=== PATIENT | male | born 1955 | race Caucasian/White ===

== ENCOUNTER → 2017-10-28 | Outpatient (CLI) | payer OTHER, SELFPAY | PROVIDERS: Visit Provider Internal Medicine | DX: R91.8 Other nonspecific abnormal finding of lung field (principal) | CPT/HCPCS: 36415; 82565; 84520 ==

== ENCOUNTER → 2017-10-29 | Outpatient (CLI) | payer OTHER, SELFPAY | PROVIDERS: Visit Provider Internal Medicine | DX: R91.8 Other nonspecific abnormal finding of lung field (principal) | CPT/HCPCS: 71260; Q9967 ==

== ENCOUNTER → 2018-05-04 09:48 | Outpatient (POV) | payer OTHER, SELFPAY | PROVIDERS: Visit Provider Internal Medicine | DX: Z00.00 Encounter for general adult medical examination without abnormal findings (principal) ==

== ENCOUNTER → 2018-06-03 09:35 | Outpatient (CLI) | payer OTHER, SELFPAY ==
[2018-06-03 10:19] LABS: Blood Urea Nitrogen 11 mg/dL (7-18); Creatinine,Serum 0.69 mg/dL (0.70-1.30); Estimated Glomerular Filt Rate 117 ml/min (>60); GFR (African American) 141 ML/MIN (>60)
== END ==
PROVIDERS: Visit Provider Family Medicine
DX: I77.9 Disorder of arteries and arterioles, unspecified (principal)
CPT/HCPCS: 36415; 82565; 84520

== ENCOUNTER → 2018-06-04 09:33 | Outpatient (CLI) | payer OTHER, SELFPAY ==
--- NOTE | 2018-06-04 09:53 | CT_ITS ---
CT angio abdomen/femoral INDICATION: Bilateral leg pain, peripheral arterial occlusive disease ITS.REASON: PERIPHERAL ARTERIAL OCCLUSIVE DISEASE ORDERING PHYSICIAN: Main Kyle MD PATIENT AGE: 63 years COMPARISON: None TECHNIQUE: Axial images are obtained with 120 mL's of Isovue 370 contrast. Sagittal and coronal reformatted images are reviewed as well. Three-D reformatted images also generated and reviewed All CT scans at the facility use one or more dose reduction, viz: automated exposure control, ma/kV adjustment per patient size (including targeted exams where dose is matched to indication, i.e. head), or iterative reconstruction technique. FINDINGS: Abdominal aorta: Scattered atheromatous changes. No evidence of aortic aneurysm or dissection. There is mild stenosis of the proximal aspect of the celiac artery of approximately 25%. There is a single renal artery to each kidney. Atheromatous changes involving the distal abdominal aorta with some mild ulceration along left lateral aspect. Atheromatous changes involve the iliac arteries with mild narrowing of the proximal right external iliac artery of less than 20%. Right lower extremity: There are atheromatous changes of the proximal and mid SFA. The distal SFA and popliteal are unremarkable. No hemodynamic significant stenotic lesions evident of the SFA. Three-vessel runoff is noted to the ankle on the right Left lower extremity: Mild atheromatous changes are present at the common femoral and proximal SFA. There is approximately 40-50% stenosis of the mid left SFA with mild atheromatous changes in the mid to distal SFA with smooth area of approximately 30% stenosis. The popliteal artery has an unremarkable appearance. Three-vessel runoff is present to the left calf. Non angiographic findings: Hyperinflation involves lung bases consistent with COPD. There is a calcified granuloma in the left lower lobe. There is a subtle 4 mm isodensity in the right hepatic lobe inferiorly nonspecific. Spleen, adrenal glands, pancreas, and kidneys show no acute finding. There is a 1 cm isodense is on the upper pole the right kidney which could be due to small cyst. No intestinal obstruction or free air. No abdominal or pelvic mass or focal inflammatory change. No acute bony anomalies. IMPRESSION: There are scattered atheromatous changes in the abdominal aorta and bilateral lower extremities as detailed above. No hemodynamic significant stenotic lesions however are evident. There is proximal 40-50% left mid SFA stenosis. Please see above for detail.
== END ==
PROVIDERS: PCP Family Medicine; Visit Provider Family Medicine
DX: I77.9 Disorder of arteries and arterioles, unspecified (principal)
CPT/HCPCS: 75635; Q9967

== ENCOUNTER → 2018-10-19 09:41 | Outpatient (POV) | payer OTHER, SELFPAY | PROVIDERS: Visit Provider Internal Medicine | DX: Z00.00 Encounter for general adult medical examination without abnormal findings (principal) ==

== ENCOUNTER → 2018-10-27 10:42 | Outpatient (CLI) | payer OTHER, SELFPAY | PROVIDERS: PCP Family Medicine; Visit Provider Internal Medicine | DX: G47.34 Idiopathic sleep related nonobstructive alveolar hypoventilation (principal) | CPT/HCPCS: 94762 ==

== ENCOUNTER → 2018-11-11 09:38 | Outpatient (CLI) | payer OTHER, SELFPAY ==
[2018-11-11 10:45] VITALS: PULSE 103
== END ==
PROVIDERS: PCP Family Medicine; Visit Provider Internal Medicine
DX: J44.1 Chronic obstructive pulmonary disease with (acute) exacerbation (principal)
CPT/HCPCS: 94060; 94618; 94640; 94726; 94729

== ENCOUNTER → 2018-12-08 12:33 | Outpatient (CLI) | payer OTHER, SELFPAY ==
--- NOTE | 2018-12-08 12:35 | CT_ITS ---
CT lung screening EXAM: CT LUNG LOW DOSE WO CONTRAST HISTORY: 45 pack year smoking history asymptomatic for lung cancer ITS.REASON: TOBACCO USE ORDERING PHYSICIAN: Nicolas Alexandre MD PATIENT AGE: 63 years COMPARISON: 10/29/2017 TECHNIQUE: The exam was performed on a GE Light Speed [address] scanner using 2.90 mGy CTDI. A low dose helical CT CHEST was performed on a multi-detector scanner. All CT scans at the facility use one or more dose reduction, viz: automated exposure control, ma/kV adjustment per patient size (including targeted exams where dose is matched to indication, i.e. head), or iterative reconstruction technique. The LDCT was performed in a facility that meets the criteria for the screening program. Data regarding this exam was submitted to ACR which is an approved registry. The order for this exam indicates that it came as a result of a lung cancer screening counseling shard decision-making visit that included all the elements required of such a visit including smoking cessation. The radiologist interpreting this exam meets the CMS criteria for the LDCT lung cancer screening program. The exam is reported using the Lung-RADS classification scale and reported to the ACR registry. NOTE: This study was performed for the specific purposes of lung cancer screening and is not an alternative to diagnostic chest CT. RADIATION DOSE: CTDI vol(CT dose Index-volume) = 2.90mG DLP (Dose Length Product) = 118.42 mGcm FINDINGS: Centrilobular emphysema. Biapical scarring There is an 8 x 7 mm irregular noncalcified nodular density in the right upper lobe centrally best demonstrated on coronal image #34. This was not present on the previous exam. There is mild diffuse bronchial thickening along with hyperinflation. Calcified granuloma is present in the left lower lobe. IMPRESSION: 1. Lung RADS Category: 4 a, new 8 mm suspicious nodule in the right perihilar region 2. Other findings: Centrilobular emphysema with scarring and evidence of old granulomatous disease with COPD RECOMMENDATIONS: Recommend short-term dedicated chest CT follow-up in 3 months. PET/CT is an additional consideration.
== END ==
PROVIDERS: PCP Family Medicine; Visit Provider Internal Medicine
DX: Z12.2 Encounter for screening for malignant neoplasm of respiratory organs (principal); Z87.891 Personal history of nicotine dependence; Z71.6 Tobacco abuse counseling; J43.9 Emphysema, unspecified

== ENCOUNTER → 2019-01-11 10:03 | Outpatient (POV) | payer OTHER, SELFPAY | PROVIDERS: Visit Provider Internal Medicine | DX: Z00.00 Encounter for general adult medical examination without abnormal findings (principal) ==

== ENCOUNTER 2019-02-03 10:25 | Outpatient (RCR) | payer OTHER, SELFPAY | END 2019-04-07 15:50 | disposition home or self-care (01) | LOC: PT 10:25 | PROVIDERS: Visit Provider Nurse Practitioner Family | DX: J44.9 Chronic obstructive pulmonary disease, unspecified (principal) | CPT/HCPCS: 93798; G0424 ==

== ENCOUNTER → 2019-03-08 12:37 | Outpatient (CLI) | payer OTHER, SELFPAY ==
--- NOTE | 2019-03-08 12:40 | CT_ITS ---
CT chest wo con HISTORY: Follow-up pulmonary nodule ITS.REASON: PULMONARY NODULE ORDERING PHYSICIAN: Ghazal Francisco APRN PATIENT AGE: 63 years COMPARISON: 12/08/2018 Technique: Axial images obtained. Sagittal, and coronal reformatted images are also generated and reviewed. All CT scans at the facility use one or more dose reduction, viz: automated exposure control, ma/kV adjustment per patient size (including targeted exams where dose is matched to indication, i.e. head), or iterative reconstruction technique. FINDINGS: The noncalcified irregular nodule in the right suprahilar region does appear slightly larger. On the coronal images this nodule measures approximately 10 mm previously measuring 8 mm. Some of this could include associated unopacified vessel. PET/CT is suggested for further evaluation. Centrilobular emphysema with bronchial thickening and hyperinflation/COPD noted. No new nodules are evident. There is calcified granuloma in the left lower lobe and there are scattered areas of scarring. No acute bony findings. No mediastinal or hilar mass or adenopathy. IMPRESSION: Irregular right suprahilar nodule appears very slightly more prominent measuring approximately 10 mm. An early neoplasm is considered. PET/CT is suggested for further workup COPD/centrilobular emphysema
[2019-03-08 13:50] VITALS: BP 120/76; BP 150/85; PULSE 115; PULSE 136; RESP 18; RESP 24; O2SAT 88; O2SAT 90
== END ==
PROVIDERS: PCP Family Medicine; Visit Provider Nurse Practitioner Family
DX: R91.1 Solitary pulmonary nodule (principal); J44.9 Chronic obstructive pulmonary disease, unspecified
CPT/HCPCS: 71250; 94618

== ENCOUNTER → 2019-03-29 12:40 | Outpatient (POV) | payer OTHER, SELFPAY | PROVIDERS: Visit Provider Dermatology | DX: Z00.00 Encounter for general adult medical examination without abnormal findings (principal) ==

== ENCOUNTER → 2019-05-07 11:05 | Outpatient (CLI) | payer OTHER, SELFPAY ==
[2019-05-07 13:34] LABS: Anion Gap 15.2 mEq/L (5-15); Blood Urea Nitrogen 10 mg/dL (7-18); Calcium 8.9 mg/dL (8.5-10.1); Carbon Dioxide 26 mmol/L (21.0-32.0); Chloride 102 mmol/L (98-107); Creatinine,Serum 0.74 mg/dL (0.70-1.30); Estimated Glomerular Filt Rate 108 ml/min (>60); GFR (African American) 130 ML/MIN (>60); Glucose 107 mg/dL (74-106); Potassium 4.2 mmoL/L (3.5-5.1); Sodium 139 mmol/L (136-145)
== END ==
PROVIDERS: Visit Provider Nurse Practitioner Family
DX: C34.91 Malignant neoplasm of unspecified part of right bronchus or lung (principal)
CPT/HCPCS: 36415; 80048

== ENCOUNTER → 2019-05-09 08:45 | Outpatient (CLI) | payer OTHER, SELFPAY ==
--- NOTE | 2019-05-09 08:48 | MR_ITS ---
MR head/brain wo/w con HISTORY: ITS.REASON: SMALL CELL CARCINOMA, LUNG CANCER, [place] for metastatic disease ORDERING PHYSICIAN: Ghazal Francisco APRN PATIENT AGE: 63 years Comparison: None TECHNIQUE: Standard multiplanar multiecho sequences are performed without and with gadolinium enhancement. FINDINGS: No midline shift, mass effect, or hydrocephalus is evident. No evidence of acute infarction. There is generalized atrophy with scattered periventricular T2 white matter hyperintensities consistent with ischemic gliotic change from microvascular disease. The cerebellopontine angles, cerebellum, and brainstem are unremarkable. There is an area of T1 hyperintensity in the central aspect of left occipital lobe measuring approximately 4 mm. There is some minimal linear enhancement associated with this lesion on the post enhanced images as well as some minimal gyriform enhancement in this area. This is felt to represent a developmental venous anomaly. The only other area of enhancement involves the left frontoparietal junction at the superior cortex on axial image #21 post enhanced. This is of questioned clinical significance. No edema is evident at this region. This is not convincing for metastatic disease however follow-up is suggested. The pituitary, optic chiasm, corpus callosum, and craniocervical junction have an unremarkable appearance. There is moderate mucosal thickening of left maxillary sinus. No mastoid effusion. IMPRESSION: 1. Overall, the study is not convincing for metastatic disease 2. 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 3. Tiny area of possible enhancement in the left frontoparietal junction. Follow-up suggested to confirm stability.
== END ==
PROVIDERS: PCP Family Medicine; Visit Provider Nurse Practitioner Family
DX: C34.91 Malignant neoplasm of unspecified part of right bronchus or lung (principal)
CPT/HCPCS: 70553; A9576

== ENCOUNTER → 2019-06-01 08:59 | Outpatient (CLI) | payer OTHER, SELFPAY | PROVIDERS: PCP Family Medicine; Visit Provider Internal Medicine | DX: J44.9 Chronic obstructive pulmonary disease, unspecified (principal) | CPT/HCPCS: 94618 ==

== ENCOUNTER 2019-06-13 08:38 | Outpatient (CLI) | payer OTHER, SELFPAY ==
[2019-06-13] VITALS (15 sets, daily range): BP systolic 113–142; BP diastolic 67–84; PULSE 67–88; RESP 20; TEMP 36.9; O2SAT 95–96; BMI 22.9
[2019-06-13 09:05] LABS: Basophils % 0.4 % (0.1-2.0); Eosinophils # 0.1 K/mm3 (0.0-0.4); Eosinophils % 1.6 % (0.1-12.0); Hematocrit 44.1 % (42.0-52.0); Hemoglobin 14.1 g/dL (14.1-18.0); Lymphocytes # 1.8 K/mm3 (0.7-4.5); Lymphocytes % 27.3 % (10-50); Mean Corpuscular Hemoglobin 31.1 pg (27.0-31.2); Mean Corpuscular Volume 97.2 fl (80-94); Mean Platelet Volume 6.8 fl (7.4-10.4); Monocytes # 0.6 K/mm3 (0.1-1.0); Monocytes % 8.7 % (1.7-9.3); Neutrophils # 4.2 K/mm3 (1.8-7.8); Neutrophils % 61.9 % (37.0-80.0); Platelet Count 368 K/mm3 (142-424); Red Blood Count 4.54 M/mm3 (4.60-6.20); Red Cell Distribution Width 13.9 % (11.5-17.5); White Blood Count 6.7 K/mm3 (4.8-10.8)
[2019-06-13 09:13] LABS: Alanine Aminotransferase 21 U/L (12-78); Albumin Level 3.9 gm/dL (3.4-5.0); Albumin/Globulin Ratio 1.1 (1.1-1.8); Alkaline Phosphatase 102 U/L (46-116); Anion Gap 13.5 mEq/L (5-15); Aspartate Amino Transferase 11 U/L (15-37); Bilirubin,Total 0.3 mg/dL (0.2-1.0); Blood Urea Nitrogen 14 mg/dL (7-18); Calcium 9.3 mg/dL (8.5-10.1); Carbon Dioxide 28 mmol/L (21.0-32.0); Chloride 103 mmol/L (98-107); Creatinine Clearance Estimated 79 mL/min (50-200); Creatinine,Serum 0.72 mg/dL (0.70-1.30); Estimated Glomerular Filt Rate 111 ml/min (>60); GFR (African American) 134 ML/MIN (>60); Globulin 3.7 gm/dl (1.3-3.2); Glucose 81 mg/dL (74-106); Potassium 4.5 mmoL/L (3.5-5.1); Sodium 140 mmol/L (136-145); Total Protein,Serum 7.6 gm/dL (6.4-8.2)
--- NOTE | 2019-06-13 13:13 | PC.NURSE ---
report received from russ maurer rn at this time. resumed care of the pt at this time
== END 2019-06-13 16:36 | disposition home or self-care (01) ==
LOC: INF 08:38
PROVIDERS: Visit Provider Internal Medicine Medical Oncology
DX: C34.91 Malignant neoplasm of unspecified part of right bronchus or lung (principal); Z51.11 Encounter for antineoplastic chemotherapy
CPT/HCPCS: 80053; 85025; 96413; 96415; 96417; J9060; J9181; Q0166

== ENCOUNTER 2019-06-14 08:33 | Outpatient (CLI) | payer OTHER, SELFPAY ==
[2019-06-14 09:05] VITALS: BP 152/82; PULSE 82; RESP 20; TEMP 36.9; O2SAT 95
[2019-06-14 09:30] VITALS: BP 156/78; PULSE 68; RESP 20; TEMP 36.9; O2SAT 95
[2019-06-14 10:00] VITALS: BP 135/74; PULSE 68; RESP 20; TEMP 37.1; O2SAT 95
[2019-06-14 10:30] VITALS: BP 141/76; PULSE 68; RESP 20; TEMP 36.9; O2SAT 95
[2019-06-14 11:05] VITALS: BP 141/76; PULSE 81; RESP 20; TEMP 36.9; O2SAT 95
== END 2019-06-14 11:00 | disposition home or self-care (01) ==
LOC: INF 08:33
PROVIDERS: Visit Provider Internal Medicine Medical Oncology
DX: Z51.11 Encounter for antineoplastic chemotherapy (principal); C34.91 Malignant neoplasm of unspecified part of right bronchus or lung
CPT/HCPCS: 96413; 96415; J9181; Q0166

== ENCOUNTER 2019-06-15 08:25 | Outpatient (CLI) | payer OTHER, SELFPAY ==
[2019-06-15] VITALS (7 sets, daily range): BP systolic 133–157; BP diastolic 78–94; PULSE 78–84; RESP 18; TEMP 36.9; O2SAT 92–96
== END 2019-06-15 11:05 | disposition home or self-care (01) ==
LOC: INF 08:37
PROVIDERS: Visit Provider Internal Medicine Medical Oncology
DX: Z51.11 Encounter for antineoplastic chemotherapy (principal); C34.91 Malignant neoplasm of unspecified part of right bronchus or lung
CPT/HCPCS: 96413; 96415; J9181; Q0166

== ENCOUNTER → 2019-06-30 13:41 | Outpatient (CLI) | payer OTHER, SELFPAY ==
[2019-06-30 13:56] LABS: Basophils % 0.3 % (0.1-2.0); Eosinophils % 2.1 % (0.1-12.0); Hematocrit 35.5 % (42.0-52.0); Hemoglobin 11.5 g/dL (14.1-18.0); Lymphocytes # 1.1 K/mm3 (0.7-4.5); Lymphocytes % 53.3 % (10-50); Mean Corpuscular HGB Conc 32.5 g/dL (31.8-35.4); Mean Corpuscular Hemoglobin 31.6 pg (27.0-31.2); Mean Corpuscular Volume 97.3 fl (80-94); Mean Platelet Volume 6.6 fl (7.4-10.4); Monocytes # 0.5 K/mm3 (0.1-1.0); Monocytes % 26.6 % (1.7-9.3); Neutrophils # 0.4 K/mm3 (1.8-7.8); Neutrophils % 17.7 % (37.0-80.0); Platelet Count 341 K/mm3 (142-424); Red Blood Count 3.65 M/mm3 (4.60-6.20); Red Cell Distribution Width 13.3 % (11.5-17.5)
[2019-06-30 14:00] LABS: MANUAL DIFFERENTIAL MANUAL DIFFERENTIAL (MANUAL DIFF)
[2019-06-30 16:20] LABS: Alanine Aminotransferase 16 U/L (12-78); Albumin Level 3.6 gm/dL (3.4-5.0); Albumin/Globulin Ratio 1.1 (1.1-1.8); Alkaline Phosphatase 94 U/L (46-116); Anion Gap 15.6 mEq/L (5-15); Aspartate Amino Transferase 10 U/L (15-37); Bilirubin,Total 0.3 mg/dL (0.2-1.0); Blood Urea Nitrogen 13 mg/dL (7-18); Carbon Dioxide 27 mmol/L (21.0-32.0); Chloride 102 mmol/L (98-107); Creatinine,Serum 1.12 mg/dL (0.70-1.30); Estimated Glomerular Filt Rate 66 ml/min (>60); GFR (African American) 80 ML/MIN (>60); Globulin 3.2 gm/dl (1.3-3.2); Glucose 100 mg/dL (74-106); Potassium 4.6 mmoL/L (3.5-5.1); Sodium 140 mmol/L (136-145); Total Protein,Serum 6.8 gm/dL (6.4-8.2)
[2019-06-30 21:10] LABS: Anisocytosis 1+; Eosinophils % 4 % (0-3); Lymphocytes % 68 % (10-50); Monocytes % 8 % (2-9); Neutrophils % 20 % (42-76); Platelet Estimate Normal; Total Cells Counted 50
== END ==
PROVIDERS: Visit Provider Internal Medicine Medical Oncology
DX: C34.91 Malignant neoplasm of unspecified part of right bronchus or lung (principal)
CPT/HCPCS: 36415; 80053; 85007; 85025

== ENCOUNTER → 2019-07-14 09:11 | Outpatient (CLI) | payer OTHER, SELFPAY ==
[2019-07-14 09:56] LABS: Basophils % 0.3 % (0.1-2.0); Eosinophils % 0.1 % (0.1-12.0); Hematocrit 36.7 % (42.0-52.0); Hemoglobin 11.5 g/dL (14.1-18.0); Lymphocytes # 1.2 K/mm3 (0.7-4.5); Lymphocytes % 13.6 % (10-50); Mean Corpuscular HGB Conc 31.3 g/dL (31.8-35.4); Mean Corpuscular Hemoglobin 30.8 pg (27.0-31.2); Mean Corpuscular Volume 98.3 fl (80-94); Mean Platelet Volume 6.2 fl (7.4-10.4); Monocytes # 0.7 K/mm3 (0.1-1.0); Monocytes % 7.8 % (1.7-9.3); Neutrophils # 6.8 K/mm3 (1.8-7.8); Neutrophils % 78.2 % (37.0-80.0); Platelet Count 588 K/mm3 (142-424); Red Blood Count 3.74 M/mm3 (4.60-6.20); Red Cell Distribution Width 14.1 % (11.5-17.5); White Blood Count 8.8 K/mm3 (4.8-10.8)
[2019-07-14 11:47] LABS: Alanine Aminotransferase 19 U/L (12-78); Albumin Level 3.4 gm/dL (3.4-5.0); Alkaline Phosphatase 114 U/L (46-116); Anion Gap 10.6 mEq/L (5-15); Aspartate Amino Transferase 13 U/L (15-37); Bilirubin,Total 0.2 mg/dL (0.2-1.0); Blood Urea Nitrogen 10 mg/dL (7-18); Calcium 9.6 mg/dL (8.5-10.1); Carbon Dioxide 32 mmol/L (21.0-32.0); Chloride 106 mmol/L (98-107); Creatinine,Serum 0.82 mg/dL (0.70-1.30); Estimated Glomerular Filt Rate 95 ml/min (>60); GFR (African American) 115 ML/MIN (>60); Globulin 3.4 gm/dl (1.3-3.2); Glucose 111 mg/dL (74-106); Potassium 5.6 mmoL/L (3.5-5.1); Sodium 143 mmol/L (136-145); Total Protein,Serum 6.8 gm/dL (6.4-8.2)
== END ==
PROVIDERS: Visit Provider Internal Medicine Medical Oncology
DX: C34.91 Malignant neoplasm of unspecified part of right bronchus or lung (principal)
CPT/HCPCS: 36415; 80053; 85025

== ENCOUNTER 2019-07-18 08:19 | Outpatient (CLI) | payer OTHER, SELFPAY ==
[2019-07-18] VITALS (16 sets, daily range): BP systolic 105–129; BP diastolic 71–84; PULSE 81–95; RESP 18; TEMP 36.4; O2SAT 94–96
--- NOTE | 2019-07-18 08:52 | HMH.PHAINT ---
POTASSIUM LEVEL = 5.6 ON 07/14/19 [address] [facility] TO MAKE SURE DR. LAY IS AWARE OF POTASSIUM LEVEL AND IF SHE WANTS TO CONTINUE THE PRE AND POST MEDS OF POTASSIUM AND MAGNESIUM. DR. LAY STILL WANTS PATIENT TO HAVE PRE AND POST MEDS.
== END 2019-07-18 16:07 | disposition home or self-care (01) ==
LOC: INF 08:19
PROVIDERS: Visit Provider Internal Medicine Medical Oncology
DX: Z51.11 Encounter for antineoplastic chemotherapy (principal); C34.91 Malignant neoplasm of unspecified part of right bronchus or lung
CPT/HCPCS: 96413; 96415; 96417; J9060; J9181; Q0166

== ENCOUNTER 2019-07-19 08:22 | Outpatient (CLI) | payer OTHER, SELFPAY ==
[2019-07-19 09:02] VITALS: BP 133/80; PULSE 102; RESP 20; TEMP 36.8; O2SAT 97
[2019-07-19 09:32] VITALS: BP 129/79; PULSE 99; RESP 20; O2SAT 97
[2019-07-19 10:02] VITALS: BP 122/77; PULSE 98; RESP 20; O2SAT 96
[2019-07-19 10:32] VITALS: BP 120/79; PULSE 95; RESP 20; O2SAT 97
[2019-07-19 10:40] VITALS: BP 123/82; PULSE 94; RESP 20; O2SAT 96
== END 2019-07-19 10:40 | disposition home or self-care (01) ==
LOC: INF 08:22
PROVIDERS: Visit Provider Internal Medicine Medical Oncology
DX: Z51.11 Encounter for antineoplastic chemotherapy (principal); C34.91 Malignant neoplasm of unspecified part of right bronchus or lung
CPT/HCPCS: 96413; 96415; J9181; Q0166

== ENCOUNTER 2019-07-20 08:16 | Outpatient (CLI) | payer OTHER, SELFPAY ==
[2019-07-20 09:20] VITALS: BP 138/81; PULSE 96; RESP 20; O2SAT 98
[2019-07-20 09:50] VITALS: BP 125/72; PULSE 91; RESP 20
[2019-07-20 10:10] VITALS: BP 122/75; PULSE 88; RESP 20
[2019-07-20 10:30] VITALS: BP 151/76; PULSE 84; RESP 20
[2019-07-20 10:56] VITALS: BP 137/81; PULSE 93; RESP 20
== END 2019-07-20 10:56 | disposition home or self-care (01) ==
LOC: INF 08:16
PROVIDERS: Visit Provider Internal Medicine Medical Oncology
DX: Z51.11 Encounter for antineoplastic chemotherapy (principal); C34.91 Malignant neoplasm of unspecified part of right bronchus or lung
CPT/HCPCS: 96413; 96415; J9181; Q0166

== ENCOUNTER → 2019-08-04 08:10 | Outpatient (CLI) | payer OTHER, SELFPAY ==
[2019-08-04 08:58] LABS: Basophils % 0.3 % (0.1-2.0); Eosinophils # 0.1 K/mm3 (0.0-0.4); Eosinophils % 4.6 % (0.1-12.0); Hematocrit 30.2 % (42.0-52.0); Hemoglobin 9.2 g/dL (14.1-18.0); Lymphocytes # 0.8 K/mm3 (0.7-4.5); Lymphocytes % 62.2 % (10-50); Mean Corpuscular HGB Conc 30.6 g/dL (31.8-35.4); Mean Corpuscular Hemoglobin 30.6 pg (27.0-31.2); Mean Platelet Volume 7.2 fl (7.4-10.4); Monocytes # 0.2 K/mm3 (0.1-1.0); Monocytes % 13.3 % (1.7-9.3); Neutrophils # 0.3 K/mm3 (1.8-7.8); Neutrophils % 19.6 % (37.0-80.0); Platelet Count 316 K/mm3 (142-424); Red Blood Count 3.02 M/mm3 (4.60-6.20); Red Cell Distribution Width 15.3 % (11.5-17.5); White Blood Count 1.3 K/mm3 (4.8-10.8)
[2019-08-04 09:32] LABS: Alanine Aminotransferase 20 U/L (12-78); Albumin Level 3.7 gm/dL (3.4-5.0); Albumin/Globulin Ratio 1.2 (1.1-1.8); Alkaline Phosphatase 116 U/L (46-116); Anion Gap 13.7 mEq/L (5-15); Aspartate Amino Transferase 17 U/L (15-37); Bilirubin,Total 0.2 mg/dL (0.2-1.0); Blood Urea Nitrogen 11 mg/dL (7-18); Calcium 9.5 mg/dL (8.5-10.1); Carbon Dioxide 28 mmol/L (21.0-32.0); Chloride 105 mmol/L (98-107); Creatinine,Serum 0.75 mg/dL (0.70-1.30); Estimated Glomerular Filt Rate 106 ml/min (>60); GFR (African American) 128 ML/MIN (>60); Globulin 3.2 gm/dl (1.3-3.2); Glucose 102 mg/dL (74-106); Potassium 4.7 mmoL/L (3.5-5.1); Sodium 142 mmol/L (136-145); Total Protein,Serum 6.9 gm/dL (6.4-8.2)
[2019-08-04 09:33] LABS: MANUAL DIFFERENTIAL MANUAL DIFFERENTIAL (MANUAL DIFF)
[2019-08-04 10:01] LABS: Eosinophils % 2 % (0-3); Lymphocytes % 68 % (10-50); Monocytes % 12 % (2-9); Neutrophils % 16 % (42-76); Platelet Estimate Normal; Total Cells Counted 50
== END ==
PROVIDERS: Visit Provider Internal Medicine Medical Oncology
DX: C34.91 Malignant neoplasm of unspecified part of right bronchus or lung (principal)
CPT/HCPCS: 36415; 80053; 85007; 85025

== ENCOUNTER 2019-08-08 08:20 | Outpatient (CLI) | payer OTHER, SELFPAY ==
[2019-08-08 08:20] VITALS: BMI 22.8
[2019-08-08 08:45] LABS: Basophils % 0.1 % (0.1-2.0); Hematocrit 31.4 % (42.0-52.0); Hemoglobin 9.7 g/dL (14.1-18.0); Lymphocytes # 0.9 K/mm3 (0.7-4.5); Lymphocytes % 45.3 % (10-50); Mean Corpuscular HGB Conc 30.9 g/dL (31.8-35.4); Mean Corpuscular Hemoglobin 30.8 pg (27.0-31.2); Mean Corpuscular Volume 99.7 fl (80-94); Mean Platelet Volume 6.6 fl (7.4-10.4); Monocytes # 0.4 K/mm3 (0.1-1.0); Monocytes % 20.2 % (1.7-9.3); Neutrophils # 0.6 K/mm3 (1.8-7.8); Neutrophils % 32.2 % (37.0-80.0); Platelet Count 650 K/mm3 (142-424); Red Blood Count 3.15 M/mm3 (4.60-6.20); Red Cell Distribution Width 16.4 % (11.5-17.5); White Blood Count 1.9 K/mm3 (4.8-10.8)
--- NOTE | 2019-08-08 09:00 | PC.NURSE ---
PT CAME IN TO GET LABS DRAWN PRIOR TO CHEMO; CBC WAS CHECKED AND THERAPY WAS HELD DUE TO ANC OF 600 PT WILL RETURN NEXT WEEK FOR RECHECK OF CBC AND CHEMO
[2019-08-08 09:07] LABS: MANUAL DIFFERENTIAL MANUAL DIFFERENTIAL (MANUAL DIFF)
[2019-08-08 09:48] LABS: Eosinophils % 2 % (0-3); Lymphocytes % 40 % (10-50); Monocytes % 21 % (2-9); Neutrophils % 34 % (42-76); Total Cells Counted 100
[2019-08-08 09:51] LABS: Platelet Estimate Moderate Increase
[2019-08-08 09:54] LABS: Hypochromasia 1+
== END 2019-08-08 09:20 | disposition home or self-care (01) ==
LOC: INF 08:21
PROVIDERS: Visit Provider Internal Medicine Medical Oncology
DX: C34.91 Malignant neoplasm of unspecified part of right bronchus or lung (principal)
CPT/HCPCS: 85007; 85025

== ENCOUNTER 2019-08-15 08:27 | Outpatient (CLI) | payer OTHER, SELFPAY ==
[2019-08-15] VITALS (15 sets, daily range): BP systolic 111–136; BP diastolic 61–79; PULSE 74–89; RESP 20; TEMP 36.4–36.6; O2SAT 95–96; BMI 22.8
[2019-08-15 08:43] LABS: Basophils % 0.3 % (0.1-2.0); Eosinophils # 0.1 K/mm3 (0.0-0.4); Eosinophils % 1.6 % (0.1-12.0); Hematocrit 38.6 % (42.0-52.0); Hemoglobin 11.9 g/dL (14.1-18.0); Lymphocytes # 1.1 K/mm3 (0.7-4.5); Lymphocytes % 26.2 % (10-50); Mean Corpuscular HGB Conc 30.8 g/dL (31.8-35.4); Mean Corpuscular Volume 103.9 fl (80-94); Mean Platelet Volume 6.9 fl (7.4-10.4); Monocytes # 0.6 K/mm3 (0.1-1.0); Monocytes % 14.2 % (1.7-9.3); Neutrophils # 2.5 K/mm3 (1.8-7.8); Neutrophils % 57.7 % (37.0-80.0); Platelet Count 663 K/mm3 (142-424); Red Blood Count 3.71 M/mm3 (4.60-6.20); White Blood Count 4.3 K/mm3 (4.8-10.8)
== END 2019-08-15 16:46 | disposition home or self-care (01) ==
LOC: INF 08:27
PROVIDERS: Visit Provider Internal Medicine Medical Oncology
DX: C34.91 Malignant neoplasm of unspecified part of right bronchus or lung (principal)
CPT/HCPCS: 85025; 96413; 96415; 96417; J9060; J9181; Q0166

== ENCOUNTER 2019-08-16 08:12 | Outpatient (CLI) | payer OTHER, SELFPAY ==
[2019-08-16 08:47] VITALS: BP 151/61; PULSE 70; RESP 20; TEMP 36.5; O2SAT 95
[2019-08-16 09:17] VITALS: BP 140/60; PULSE 69; RESP 20; O2SAT 95
[2019-08-16 09:47] VITALS: BP 147/62; PULSE 71; RESP 20; O2SAT 96
[2019-08-16 10:17] VITALS: BP 121/69; PULSE 70; RESP 20; O2SAT 95
[2019-08-16 10:30] VITALS: BP 133/68; PULSE 72; RESP 20; O2SAT 96
== END 2019-08-16 10:38 | disposition home or self-care (01) ==
LOC: INF 08:12
PROVIDERS: Visit Provider Internal Medicine Medical Oncology
DX: C34.91 Malignant neoplasm of unspecified part of right bronchus or lung (principal)
CPT/HCPCS: 96413; 96415; J9181; Q0166

== ENCOUNTER 2019-08-17 08:21 | Outpatient (CLI) | payer OTHER, SELFPAY ==
[2019-08-17] VITALS (7 sets, daily range): BP systolic 136–162; BP diastolic 74–85; PULSE 76–84; RESP 18–20; TEMP 36.8
== END 2019-08-17 11:00 | disposition home or self-care (01) ==
LOC: INF 08:22
PROVIDERS: Visit Provider Internal Medicine Medical Oncology
DX: Z51.11 Encounter for antineoplastic chemotherapy (principal); C34.91 Malignant neoplasm of unspecified part of right bronchus or lung
CPT/HCPCS: 96413; 96415; J9181; Q0166

== ENCOUNTER 2019-09-02 10:00 | Outpatient (CLI) | payer OTHER, SELFPAY ==
[2019-09-02 10:05] VITALS: BMI 22.6
--- NOTE | 2019-09-02 10:05 | PC.NURSE ---
1005-PT HERE FOR LAB DRAW;COLLECTED CBC AND CMP BY PERIPHERAL STICK IN LEFT HAND;WRAPPED WITH 2X2;PT SENT TO ONCOLOGY APPOINTMENT WITH .
[2019-09-02 10:18] LABS: Basophils % 0.4 % (0.1-2.0); Eosinophils # 0.1 K/mm3 (0.0-0.4); Eosinophils % 3.3 % (0.1-12.0); Hematocrit 34.1 % (42.0-52.0); Hemoglobin 10.9 g/dL (14.1-18.0); Lymphocytes # 1.1 K/mm3 (0.7-4.5); Lymphocytes % 55.3 % (10-50); Mean Corpuscular Hemoglobin 32.6 pg (27.0-31.2); Mean Corpuscular Volume 101.7 fl (80-94); Mean Platelet Volume 7.7 fl (7.4-10.4); Monocytes # 0.3 K/mm3 (0.1-1.0); Monocytes % 16.2 % (1.7-9.3); Neutrophils # 0.5 K/mm3 (1.8-7.8); Neutrophils % 24.7 % (37.0-80.0); Platelet Count 466 K/mm3 (142-424); Red Blood Count 3.35 M/mm3 (4.60-6.20); Red Cell Distribution Width 16.7 % (11.5-17.5)
[2019-09-02 10:30] LABS: MANUAL DIFFERENTIAL MANUAL DIFFERENTIAL (MANUAL DIFF)
[2019-09-02 10:59] LABS: Alanine Aminotransferase 22 U/L (12-78); Albumin Level 4.2 gm/dL (3.4-5.0); Albumin/Globulin Ratio 1.1 (1.1-1.8); Alkaline Phosphatase 115 U/L (46-116); Anion Gap 12.4 mEq/L (5-15); Aspartate Amino Transferase 14 U/L (15-37); Bilirubin,Total 0.2 mg/dL (0.2-1.0); Blood Urea Nitrogen 12 mg/dL (7-18); Calcium 9.4 mg/dL (8.5-10.1); Carbon Dioxide 30 mmol/L (21.0-32.0); Chloride 100 mmol/L (98-107); Creatinine Clearance Estimated 76 mL/min (50-200); Creatinine,Serum 1.02 mg/dL (0.70-1.30); Estimated Glomerular Filt Rate 74 ml/min (>60); GFR (African American) 90 ML/MIN (>60); Globulin 3.7 gm/dl (1.3-3.2); Glucose 115 mg/dL (74-106); Potassium 4.4 mmoL/L (3.5-5.1); Sodium 138 mmol/L (136-145); Total Protein,Serum 7.9 gm/dL (6.4-8.2)
[2019-09-02 11:04] LABS: Eosinophils % 2 % (0-3); Lymphocytes % 56 % (10-50); Monocytes % 10 % (2-9); Neutrophils % 32 % (42-76); Platelet Estimate Slight Increase; Total Cells Counted 100
== END 2019-09-02 10:05 | disposition home or self-care (01) ==
LOC: INF 10:01
PROVIDERS: Visit Provider Internal Medicine Medical Oncology
DX: C34.91 Malignant neoplasm of unspecified part of right bronchus or lung (principal)
CPT/HCPCS: 80053; 85007; 85025

== ENCOUNTER 2019-09-07 08:30 | Outpatient (CLI) | payer OTHER, SELFPAY ==
[2019-09-07] VITALS (17 sets, daily range): BP systolic 101–144; BP diastolic 56–80; PULSE 87–99; RESP 20; TEMP 36.4–36.8; O2SAT 94–97; BMI 22.2
[2019-09-07 09:16] LABS: Basophils % 0.7 % (0.1-2.0); Eosinophils # 0.1 K/mm3 (0.0-0.4); Eosinophils % 2.3 % (0.1-12.0); Hematocrit 33.7 % (42.0-52.0); Hemoglobin 10.6 g/dL (14.1-18.0); Lymphocytes % 36.6 % (10-50); Mean Corpuscular HGB Conc 31.3 g/dL (31.8-35.4); Mean Corpuscular Volume 105.2 fl (80-94); Mean Platelet Volume 7.3 fl (7.4-10.4); Monocytes # 0.6 K/mm3 (0.1-1.0); Monocytes % 20.1 % (1.7-9.3); Neutrophils # 1.1 K/mm3 (1.8-7.8); Neutrophils % 40.2 % (37.0-80.0); Platelet Count 667 K/mm3 (142-424); Red Blood Count 3.21 M/mm3 (4.60-6.20); Red Cell Distribution Width 17.3 % (11.5-17.5); White Blood Count 2.7 K/mm3 (4.8-10.8)
[2019-09-07 09:17] LABS: MANUAL DIFFERENTIAL MANUAL DIFFERENTIAL (MANUAL DIFF)
[2019-09-07 09:32] LABS: Anisocytosis 1+; Eosinophils % 2 % (0-3); Lymphocytes % 36 % (10-50); Macrocytosis 1+; Monocytes % 15 % (2-9); Neutrophils % 44 % (42-76); Total Cells Counted 100
[2019-09-07 09:33] LABS: Acanthocytes 1+; Poikilocytosis 1+
[2019-09-07 09:34] LABS: Platelet Estimate Moderate Increase
== END 2019-09-07 16:53 | disposition home or self-care (01) ==
LOC: INF 08:52
PROVIDERS: Visit Provider Internal Medicine Medical Oncology
DX: Z51.11 Encounter for antineoplastic chemotherapy (principal); C34.91 Malignant neoplasm of unspecified part of right bronchus or lung
CPT/HCPCS: 85007; 85025; 96413; 96415; 96417; J8501; J9060; J9181; Q0166

== ENCOUNTER 2019-09-08 08:31 | Outpatient (CLI) | payer OTHER, SELFPAY ==
[2019-09-08 09:20] VITALS: BP 129/74; PULSE 94; RESP 20; TEMP 36.9; O2SAT 95
[2019-09-08 09:46] VITALS: BP 126/70; PULSE 94; RESP 20; TEMP 36.9; O2SAT 95
[2019-09-08 10:00] VITALS: BP 118/74; PULSE 68; RESP 20; TEMP 36.9; O2SAT 95
[2019-09-08 10:30] VITALS: BP 112/74; PULSE 68; RESP 20; TEMP 36.9
[2019-09-08 10:45] VITALS: BP 112/74; PULSE 68; RESP 20; TEMP 36.9
== END 2019-09-08 10:45 | disposition home or self-care (01) ==
LOC: INF 08:31
PROVIDERS: Visit Provider Internal Medicine Medical Oncology
DX: Z51.11 Encounter for antineoplastic chemotherapy (principal); C34.91 Malignant neoplasm of unspecified part of right bronchus or lung
CPT/HCPCS: 96413; 96415; J9181; Q0166

== ENCOUNTER 2019-09-09 08:28 | Outpatient (CLI) | payer OTHER, SELFPAY ==
[2019-09-09 09:04] VITALS: BP 160/86; PULSE 86; RESP 18; TEMP 36.6; O2SAT 100
[2019-09-09 09:34] VITALS: BP 154/84; PULSE 84; RESP 18; O2SAT 99
[2019-09-09 10:04] VITALS: BP 151/82; PULSE 81; RESP 18; O2SAT 99
[2019-09-09 10:40] VITALS: BP 153/76; PULSE 83; RESP 18; O2SAT 99
== END 2019-09-09 10:40 | disposition home or self-care (01) ==
LOC: INF 08:29
PROVIDERS: Visit Provider Internal Medicine Medical Oncology
DX: Z51.11 Encounter for antineoplastic chemotherapy (principal); C34.91 Malignant neoplasm of unspecified part of right bronchus or lung
CPT/HCPCS: 96413; 96415; J9181; Q0166

== ENCOUNTER → 2019-09-22 10:45 | Outpatient (CLI) | payer OTHER, SELFPAY ==
[2019-09-22 10:50] VITALS: BMI 22.9
[2019-09-22 11:05] LABS: Basophils % 0.7 % (0.1-2.0); Eosinophils % 1.3 % (0.1-12.0); Hemoglobin 9.4 g/dL (14.1-18.0); Lymphocytes # 0.9 K/mm3 (0.7-4.5); Lymphocytes % 45.6 % (10-50); Mean Corpuscular HGB Conc 32.4 g/dL (31.8-35.4); Mean Corpuscular Hemoglobin 33.2 pg (27.0-31.2); Mean Corpuscular Volume 102.5 fl (80-94); Mean Platelet Volume 9.3 fl (7.4-10.4); Monocytes # 0.2 K/mm3 (0.1-1.0); Monocytes % 9.9 % (1.7-9.3); Neutrophils # 0.8 K/mm3 (1.8-7.8); Neutrophils % 42.4 % (37.0-80.0); Platelet Count 148 K/mm3 (142-424); Red Blood Count 2.84 M/mm3 (4.60-6.20); Red Cell Distribution Width 16.3 % (11.5-17.5)
[2019-09-22 11:18] LABS: Alanine Aminotransferase 20 U/L (12-78); Albumin/Globulin Ratio 1.2 (1.1-1.8); Alkaline Phosphatase 91 U/L (46-116); Anion Gap 10.4 mEq/L (5-15); Aspartate Amino Transferase 18 U/L (15-37); Bilirubin,Total 0.2 mg/dL (0.2-1.0); Blood Urea Nitrogen 11 mg/dL (7-18); Calcium 9.3 mg/dL (8.5-10.1); Carbon Dioxide 30 mmol/L (21.0-32.0); Chloride 104 mmol/L (98-107); Creatinine Clearance Estimated 79 mL/min (50-200); Estimated Glomerular Filt Rate 98 ml/min (>60); GFR (African American) 119 ML/MIN (>60); Globulin 3.4 gm/dl (1.3-3.2); Glucose 129 mg/dL (74-106); Potassium 4.4 mmoL/L (3.5-5.1); Sodium 140 mmol/L (136-145); Total Protein,Serum 7.4 gm/dL (6.4-8.2)
[2019-09-22 11:23] LABS: Hematocrit 28.7 % (42.0-52.0)
== END ==
PROVIDERS: PCP Family Medicine; Visit Provider Internal Medicine Medical Oncology
DX: C34.91 Malignant neoplasm of unspecified part of right bronchus or lung (principal)
CPT/HCPCS: 36415; 80053; 85025

== ENCOUNTER → 2019-09-23 09:25 | Outpatient (CLI) | payer OTHER, SELFPAY ==
--- NOTE | 2019-09-23 09:39 | CT_ITS ---
PROCEDURE: CT CHEST WO/W CON CLINCAL INDICATION: LUNG CA Follow-up lung cancer COMPARISON: CHESTWO CT chest wo con from 03/08/2019 CT ABDOMEN PELVIS WO/W CON from 09/23/2019 TECHNIQUE: IV Contrast: 75ml Optiray 350. The exam is performed without and with contrast Axial images obtained with sagittal and coronal reformats. All CT scans at the facility use one or more dose reduction, viz: automated exposure control, ma/kV adjustment per patient size (including targeted exams where dose is matched to indication, i.e. head), or iterative reconstruction technique. FINDINGS: No mediastinal or hilar mass or adenopathy. Unremarkable appearing aorta and pulmonary arteries. Normal heart size. There is mild thickening of the pericardium anteriorly measuring up to 8 mm in thickness. There is mild thickening the mid and upper esophagus. This is nonspecific could be due to nondistention or esophagitis. There is mild biapical scarring. There are centrilobular emphysematous changes with mild diffuse bronchial thickening. Scarring is present in the lung bases within the right middle lobe and lingula. There is a calcified granuloma in the left lower lobe. No central obstructing lesions are evident. The previously described irregular nodular density in the right suprahilar region is no longer identified. There is some minimal scarring in this area. No new nodules are evident. No acute bony findings. No bony destructive process. IMPRESSION: 1. Previously noted right suprahilar nodule is not identified on today's exam. 2. Centrilobular emphysema/COPD 3. Mild thickening of the pericardium and mild nonspecific thickening of the mid and upper esophagus. Dictated by: Wenceslao White MD 09/23/2019 14:54 Electronically signed by Wenceslao White MD in [place] 09/23/2019 14:54
--- NOTE | 2019-09-23 09:39 | CT_ITS ---
PROCEDURE: CT ABDOMEN PELVIS WO/W CON CLINICAL INDICATION: LUNG CA Follow-up lung cancer COMPARISON: AGABDFEM CT angio abdomen/femoral from 06/04/2018 CT CHEST WO/W CON from 09/23/2019 TECHNIQUE: IV Contrast: 75ML OPTIRAY 350 Oral Contrast 450ml Redicat Axial images obtained with sagittal and coronal reformats. All CT scans at the facility use one or more dose reduction, viz: automated exposure control, ma/kV adjustment per patient size (including targeted exams where dose is matched to indication, i.e. head), or iterative reconstruction technique. FINDINGS: The spleen, adrenal glands, and pancreas have an unremarkable appearance. There is a 4 mm hypodensity in the right hepatic lobe inferiorly. This is too small to categorize and is probably unchanged from an older exam of 06/04/2018. There is liver has an otherwise unremarkable appearance. There are small right renal cysts. The left kidney has an unremarkable appearance. No retroperitoneal adenopathy. No abdominal mass or abnormal fluid collection. No intestinal obstruction or free air. There is a mild amount of retained colonic feces. Seminal vesicles are slightly prominent which is nonspecific. No evidence of appendicitis or diverticulitis. No acute bony findings. IMPRESSION: Essentially negative CT abdomen and pelvis. No convincing evidence of metastatic disease. There is a 4 mm hypodense lesion of the right hepatic lobe which was probably present on a older exam and unchanged. Dictated by: Wenceslao White MD 09/23/2019 15:15 Electronically signed by Wenceslao White MD in [place] 09/23/2019 15:15
== END ==
PROVIDERS: PCP Family Medicine; Visit Provider Internal Medicine Medical Oncology
DX: C34.90 Malignant neoplasm of unspecified part of unspecified bronchus or lung (principal)
CPT/HCPCS: 71270; 74178; Q9967

== ENCOUNTER → 2020-01-14 12:00 | Outpatient (CLI) | payer OTHER, SELFPAY ==
[2020-01-14 12:41] LABS: Basophils % 0.4 % (0.1-2.0); Eosinophils # 0.2 K/mm3 (0.0-0.4); Eosinophils % 2.4 % (0.1-12.0); Hematocrit 39.2 % (42.0-52.0); Hemoglobin 12.8 g/dL (14.1-18.0); Lymphocytes # 1.3 K/mm3 (0.7-4.5); Lymphocytes % 21.8 % (10-50); Mean Corpuscular HGB Conc 32.6 g/dL (31.8-35.4); Mean Corpuscular Hemoglobin 33.2 pg (27.0-31.2); Mean Corpuscular Volume 101.7 fl (80-94); Mean Platelet Volume 7.2 fl (7.4-10.4); Monocytes # 0.5 K/mm3 (0.1-1.0); Monocytes % 7.9 % (1.7-9.3); Neutrophils # 4.1 K/mm3 (1.8-7.8); Neutrophils % 67.5 % (37.0-80.0); Platelet Count 323 K/mm3 (142-424); Red Blood Count 3.85 M/mm3 (4.60-6.20); Red Cell Distribution Width 13.5 % (11.5-17.5); White Blood Count 6.1 K/mm3 (4.8-10.8)
[2020-01-14 16:36] LABS: Alanine Aminotransferase 11 U/L (12-78); Albumin Level 4.3 g/dl (3.5-5.0); Albumin/Globulin Ratio 1.7 (1.1-1.8); Alkaline Phosphatase 97 U/L (38-126); Anion Gap 12.5 mEq/L (5-15); Aspartate Amino Transferase 22 U/L (17-59); Bilirubin,Total 0.3 mg/dl (0.2-1.3); Blood Urea Nitrogen 7 mg/dl (9-20); Calcium 9.8 mg/dl (8.4-10.2); Carbon Dioxide 27 mmol/L (22.0-30.0); Chloride 102 mmol/L (98-107); Estimated Glomerular Filt Rate 114 ml/min (>60); GFR (African American) 138 ML/MIN (>60); Globulin 2.5 g/dL (1.3-3.2); Glucose 98 mg/dl (74-100); Potassium 4.5 mmoL/L (3.5-5.1); Sodium 137 mmol/L (136-145); Total Protein,Serum 6.8 g/dl (6.3-8.2)
== END ==
PROVIDERS: Visit Provider Internal Medicine Medical Oncology
DX: C34.90 Malignant neoplasm of unspecified part of unspecified bronchus or lung (principal)
CPT/HCPCS: 36415; 80053; 85025

== ENCOUNTER → 2020-01-16 08:44 | Outpatient (CLI) | payer OTHER, SELFPAY ==
--- NOTE | 2020-01-16 08:58 | CT_ITS ---
PROCEDURE: CT ABDOMEN PELVIS W CON CLINICAL INDICATION: LUNG CA,POST CHEMO Follow-up lung cancer COMPARISON: CT ABDOMEN PELVIS WO/W CON from 09/23/2019 TECHNIQUE: IV Contrast: 75ML OPTIRAY 350 Oral Contrast 450ml Redicat Axial images obtained with sagittal and coronal reformats. All CT scans at the facility use one or more dose reduction, viz: automated exposure control, ma/kV adjustment per patient size (including targeted exams where dose is matched to indication, i.e. head), or iterative reconstruction technique. FINDINGS: LOWER THORAX: No acute finding ABDOMEN & PELVIS: There are at least 2 lesions of the liver which are not readily apparent on the previous exam. The largest is in the right hepatic lobe at 2.7 x 2.1 cm. These are suspicious for metastasis. The adrenal glands, pancreas, gallbladder, and kidneys are unremarkable other than a small right renal cyst. Retro aortic left renal vein is noted as a normal variant. No intra-abdominal or retroperitoneal adenopathy. No evidence of appendicitis or diverticulitis. No pelvic mass or abnormal fluid collection. No acute bony anomaly. IMPRESSION: There are at least 2 new hepatic lesions which are suspicious for metastasis. Dictated by: Wenceslao White MD 01/17/2020 06:43 Electronically signed by Wenceslao White MD in [place] 01/17/2020 06:43
--- NOTE | 2020-01-16 08:58 | CT_ITS ---
PROCEDURE: CT CHEST W CON CLINCAL INDICATION: LUNG CA,POST CHEMO Follow-up lung cancer COMPARISON: CT CHEST WO/W CON from 09/23/2019 CT ABDOMEN PELVIS W CON from 01/16/2020 TECHNIQUE: IV Contrast: 75ml Optiray 350 Axial images obtained with sagittal and coronal reformats. All CT scans at the facility use one or more dose reduction, viz: automated exposure control, ma/kV adjustment per patient size (including targeted exams where dose is matched to indication, i.e. head), or iterative reconstruction technique. FINDINGS: HEART AND MEDIASTINAL STRUCTURES: No mediastinal or hilar mass or adenopathy. There is minimal thickening of the pericardium measuring up to 10 mm inferiorly previously measuring 8 mm. LUNGS AND PLEURAL SPACES: COPD with centrilobular emphysema and scattered areas of scarring as before. Patchy atelectasis or infiltrate in both upper lobes medially, lingula, and right middle lobe. Calcified granuloma left lower lobe. 4 mm subpleural nodular opacity left upper lobe laterally nonspecific BONY STRUCTURES: No acute bony abnormalities apparent. UPPER ABDOMEN: Unremarkable. ADDITIONAL FINDINGS: No other significant abnormalities. IMPRESSION: Centrilobular emphysema with COPD. No evidence of recurrent nodule on the right. There is a new 4 mm opacity in the left upper lobe anterior laterally nonspecific. Consider six-month follow-up to confirm stability Dictated by: Wenceslao White MD 01/17/2020 06:25 Electronically signed by Wenceslao White MD in [place] 01/17/2020 06:54
== END ==
PROVIDERS: PCP Family Medicine; Visit Provider Internal Medicine Medical Oncology
DX: C34.90 Malignant neoplasm of unspecified part of unspecified bronchus or lung (principal)
CPT/HCPCS: 71260; 74177; Q9967

== ENCOUNTER → 2020-02-16 13:37 | Outpatient (CLI) | payer OTHER, SELFPAY ==
--- NOTE | 2020-02-16 13:40 | US_ITS ---
PROCEDURE: US LIVER CLINICAL INDICATION: LIVER LESIONS Evaluate liver lesions, 2 new lesions noted on recent CT scan in this patient with history of primary carcinoma COMPARISON: CT ABDOMEN PELVIS W CON from 01/16/2020 FINDINGS: PANCREAS: Unremarkable. No obvious mass or abnormal fluid collection. No ductal dilatation LIVER: There is a 3 cm isoechoic lesion in the right hepatic lobe posteriorly corresponding to the larger of the 2 lesions noted on the CT scan. This lesion does appear solid isodense slightly hyperechoic. There is an additional or subtle lesion in the right hepatic lobe inferiorly measuring 1.8 cm also isoechoic to slightly hyperechoic. RIGHT KIDNEY: Unremarkable. Normal size and echogenicity. No hydronephrosis there is a 7 mm cyst along the upper pole of the right kidney. GALLBLADDER: No gallstones, gallbladder wall thickening, pericholecystic fluid, or biliary dilatation. There is some minimal gallbladder sludge noted. IMPRESSION: 2 solid hepatic lesions as described above suspicious for metastatic foci Dictated by: Wenceslao White MD 02/16/2020 16:29 Electronically signed by Wenceslao White MD in [place] 02/16/2020 16:29
== END ==
PROVIDERS: PCP Family Medicine; Visit Provider Internal Medicine Medical Oncology
DX: K76.9 Liver disease, unspecified (principal)
CPT/HCPCS: 76705

== ENCOUNTER 2020-03-15 10:25 | Outpatient (CLI) | payer OTHER, SELFPAY ==
[2020-03-15 10:29] VITALS: BMI 22.2
[2020-03-15 10:52] LABS: Basophils # 0.1 K/mm3 (0-0.2); Basophils % 1.3 % (0.1-2.0); Eosinophils # 0.1 K/mm3 (0.0-0.4); Eosinophils % 2.4 % (0.1-12.0); Hematocrit 40.2 % (42.0-52.0); Hemoglobin 12.8 g/dL (14.1-18.0); Lymphocytes # 1.1 K/mm3 (0.7-4.5); Lymphocytes % 18.7 % (10-50); Mean Corpuscular HGB Conc 31.9 g/dL (31.8-35.4); Mean Corpuscular Hemoglobin 33.6 pg (27.0-31.2); Mean Corpuscular Volume 105.4 fl (80-94); Mean Platelet Volume 7.4 fl (7.4-10.4); Monocytes # 0.4 K/mm3 (0.1-1.0); Monocytes % 7.7 % (1.7-9.3); Neutrophils # 3.9 K/mm3 (1.8-7.8); Neutrophils % 69.9 % (37.0-80.0); Platelet Count 312 K/mm3 (142-424); Red Blood Count 3.81 M/mm3 (4.60-6.20); Red Cell Distribution Width 13.4 % (11.5-17.5); White Blood Count 5.6 K/mm3 (4.8-10.8)
[2020-03-15 10:57] LABS: Alanine Aminotransferase 20 U/L (12-78); Albumin Level 4.9 g/dl (3.5-5.0); Albumin/Globulin Ratio 1.8 (1.1-1.8); Alkaline Phosphatase 93 U/L (38-126); Anion Gap 8.3 mEq/L (5-15); Aspartate Amino Transferase 34 U/L (17-59); Bilirubin,Total 0.2 mg/dl (0.2-1.3); Blood Urea Nitrogen 13 mg/dl (9-20); Calcium 9.9 mg/dl (8.4-10.2); Carbon Dioxide 32 mmol/L (22.0-30.0); Chloride 100 mmol/L (98-107); Creatinine Clearance Estimated 76 mL/min (50-200); Estimated Glomerular Filt Rate 114 ml/min (>60); GFR (African American) 138 ML/MIN (>60); Globulin 2.8 g/dL (1.3-3.2); Glucose 100 mg/dl (74-100); Potassium 4.3 mmoL/L (3.5-5.1); Sodium 136 mmol/L (136-145); Total Protein,Serum 7.7 g/dl (6.3-8.2)
[2020-03-15 11:50] VITALS: BP 139/77; PULSE 81; RESP 20; O2SAT 98
[2020-03-15 12:05] VITALS: BP 142/70; PULSE 86; RESP 20
[2020-03-15 12:38] VITALS: BP 161/71; PULSE 89; RESP 20
== END 2020-03-15 12:38 | disposition home or self-care (01) ==
PROVIDERS: Visit Provider Internal Medicine Medical Oncology
DX: Z51.11 Encounter for antineoplastic chemotherapy (principal); C34.91 Malignant neoplasm of unspecified part of right bronchus or lung
CPT/HCPCS: 80053; 85025; 96413; J2405; J9351

== ENCOUNTER 2020-03-22 09:33 | Outpatient (CLI) | payer OTHER, SELFPAY ==
[2020-03-22 09:34] VITALS: BMI 21.9
[2020-03-22 09:42] LABS: Basophils % 0.1 % (0.1-2.0); Eosinophils # 0.1 K/mm3 (0.0-0.4); Eosinophils % 2.4 % (0.1-12.0); Hematocrit 36.5 % (42.0-52.0); Hemoglobin 11.6 g/dL (14.1-18.0); Lymphocytes # 0.9 K/mm3 (0.7-4.5); Mean Corpuscular HGB Conc 31.9 g/dL (31.8-35.4); Mean Corpuscular Hemoglobin 32.8 pg (27.0-31.2); Mean Corpuscular Volume 102.8 fl (80-94); Mean Platelet Volume 7.5 fl (7.4-10.4); Monocytes # 0.3 K/mm3 (0.1-1.0); Monocytes % 6.4 % (1.7-9.3); Neutrophils # 2.9 K/mm3 (1.8-7.8); Platelet Count 216 K/mm3 (142-424); Red Blood Count 3.55 M/mm3 (4.60-6.20); Red Cell Distribution Width 13.9 % (11.5-17.5); White Blood Count 4.1 K/mm3 (4.8-10.8)
[2020-03-22 09:45] LABS: Chloride 102 mmol/L (98-107); Potassium 3.6 mmoL/L (3.5-5.1); Sodium 139 mmol/L (136-145)
[2020-03-22 09:47] LABS: Blood Urea Nitrogen 11 mg/dl (9-20); Creatinine Clearance Estimated 75 mL/min (50-200); Estimated Glomerular Filt Rate 137 ml/min (>60); GFR (African American) 165 ML/MIN (>60)
[2020-03-22 09:48] LABS: Alanine Aminotransferase 26 U/L (12-78); Albumin Level 4.5 g/dl (3.5-5.0); Albumin/Globulin Ratio 1.5 (1.1-1.8); Alkaline Phosphatase 98 U/L (38-126); Anion Gap 9.6 mEq/L (5-15); Aspartate Amino Transferase 32 U/L (17-59); Bilirubin,Total 0.2 mg/dl (0.2-1.3); Calcium 9.7 mg/dl (8.4-10.2); Carbon Dioxide 31 mmol/L (22.0-30.0); Glucose 85 mg/dl (74-100); Total Protein,Serum 7.5 g/dl (6.3-8.2)
[2020-03-22 10:50] VITALS: BP 121/77; PULSE 92; RESP 20; O2SAT 100
[2020-03-22 11:05] VITALS: O2SAT 100
[2020-03-22 11:20] VITALS: O2SAT 100
[2020-03-22 11:37] VITALS: BP 110/67; PULSE 83; RESP 20; O2SAT 98
== END 2020-03-22 11:37 | disposition home or self-care (01) ==
LOC: INF 09:33
PROVIDERS: Visit Provider Internal Medicine Medical Oncology
DX: Z51.11 Encounter for antineoplastic chemotherapy (principal); C34.91 Malignant neoplasm of unspecified part of right bronchus or lung
CPT/HCPCS: 80053; 85025; 96413; J2405; J9351

== ENCOUNTER 2020-03-29 09:59 | Outpatient (CLI) | payer OTHER, SELFPAY ==
[2020-03-29 10:02] VITALS: BMI 21.9
[2020-03-29 10:16] LABS: Basophils % 0.8 % (0.1-2.0); Eosinophils # 0.1 K/mm3 (0.0-0.4); Eosinophils % 2.5 % (0.1-12.0); Hematocrit 35.5 % (42.0-52.0); Hemoglobin 11.6 g/dL (14.1-18.0); Lymphocytes # 0.9 K/mm3 (0.7-4.5); Lymphocytes % 31.4 % (10-50); Mean Corpuscular HGB Conc 32.8 g/dL (31.8-35.4); Mean Corpuscular Hemoglobin 33.7 pg (27.0-31.2); Mean Corpuscular Volume 102.8 fl (80-94); Mean Platelet Volume 7.7 fl (7.4-10.4); Monocytes # 0.1 K/mm3 (0.1-1.0); Monocytes % 3.6 % (1.7-9.3); Neutrophils # 1.8 K/mm3 (1.8-7.8); Neutrophils % 61.8 % (37.0-80.0); Platelet Count 153 K/mm3 (142-424); Red Blood Count 3.45 M/mm3 (4.60-6.20); Red Cell Distribution Width 13.5 % (11.5-17.5); White Blood Count 2.8 K/mm3 (4.8-10.8)
[2020-03-29 10:23] LABS: Alanine Aminotransferase 25 U/L (12-78); Albumin Level 4.9 g/dl (3.5-5.0); Albumin/Globulin Ratio 1.6 (1.1-1.8); Alkaline Phosphatase 111 U/L (38-126); Anion Gap 9.6 mEq/L (5-15); Aspartate Amino Transferase 31 U/L (17-59); Bilirubin,Total 0.3 mg/dl (0.2-1.3); Blood Urea Nitrogen 10 mg/dl (9-20); Calcium 10.1 mg/dl (8.4-10.2); Carbon Dioxide 30 mmol/L (22.0-30.0); Chloride 102 mmol/L (98-107); Creatinine Clearance Estimated 75 mL/min (50-200); Estimated Glomerular Filt Rate 137 ml/min (>60); GFR (African American) 165 ML/MIN (>60); Globulin 3.1 g/dL (1.3-3.2); Glucose 111 mg/dl (74-100); Potassium 3.6 mmoL/L (3.5-5.1); Sodium 138 mmol/L (136-145)
[2020-03-29 11:10] VITALS: BP 153/80; PULSE 86; RESP 18; O2SAT 100
[2020-03-29 11:25] VITALS: BP 157/87; PULSE 91; RESP 20
[2020-03-29 11:44] VITALS: RESP 20
--- NOTE | 2020-03-29 12:00 | PC.NURSE ---
1200-placed neulasta on pro on backside of right upper arm, waited for activation. instructed patient on proper removal and disposal of device.
[2020-03-29 12:06] VITALS: BP 153/85; PULSE 85; RESP 18; O2SAT 97
== END 2020-03-29 12:06 | disposition home or self-care (01) ==
LOC: INF 09:59
PROVIDERS: Visit Provider Internal Medicine Medical Oncology
DX: Z51.11 Encounter for antineoplastic chemotherapy (principal); C34.91 Malignant neoplasm of unspecified part of right bronchus or lung
CPT/HCPCS: 80053; 85025; 96372; 96413; J2405; J2505; J9351

== ENCOUNTER 2020-04-12 09:18 | Outpatient (CLI) | payer OTHER, SELFPAY ==
[2020-04-12 09:20] VITALS: BMI 22.2
[2020-04-12 09:41] LABS: Basophils # 0.1 K/mm3 (0-0.2); Basophils % 0.7 % (0.1-2.0); Eosinophils # 0.1 K/mm3 (0.0-0.4); Eosinophils % 0.5 % (0.1-12.0); Hemoglobin 11.3 g/dL (14.1-18.0); Lymphocytes # 1.1 K/mm3 (0.7-4.5); Lymphocytes % 7.1 % (10-50); Mean Corpuscular HGB Conc 34.1 g/dL (31.8-35.4); Mean Corpuscular Hemoglobin 34.5 pg (27.0-31.2); Mean Corpuscular Volume 101.4 fl (80-94); Mean Platelet Volume 7.3 fl (7.4-10.4); Monocytes # 0.7 K/mm3 (0.1-1.0); Monocytes % 4.7 % (1.7-9.3); Neutrophils # 13.6 K/mm3 (1.8-7.8); Platelet Count 486 K/mm3 (142-424); Red Blood Count 3.26 M/mm3 (4.60-6.20); Red Cell Distribution Width 15.2 % (11.5-17.5); White Blood Count 15.6 K/mm3 (4.8-10.8)
[2020-04-12 09:44] LABS: MANUAL DIFFERENTIAL MANUAL DIFFERENTIAL (MANUAL DIFF)
[2020-04-12 09:49] LABS: Chloride 101 mmol/L (98-107); Potassium 4.2 mmoL/L (3.5-5.1); Sodium 139 mmol/L (136-145)
[2020-04-12 09:51] LABS: Blood Urea Nitrogen 9 mg/dl (9-20); Creatinine Clearance Estimated 76 mL/min (50-200); Estimated Glomerular Filt Rate 98 ml/min (>60); GFR (African American) 119 ML/MIN (>60)
[2020-04-12 09:52] LABS: Alanine Aminotransferase 20 U/L (12-78); Albumin Level 4.3 g/dl (3.5-5.0); Albumin/Globulin Ratio 1.5 (1.1-1.8); Alkaline Phosphatase 154 U/L (38-126); Anion Gap 12.2 mEq/L (5-15); Aspartate Amino Transferase 26 U/L (17-59); Bilirubin,Total 0.4 mg/dl (0.2-1.3); Calcium 9.3 mg/dl (8.4-10.2); Carbon Dioxide 30 mmol/L (22.0-30.0); Eosinophils % 1 % (0-3); Globulin 2.9 g/dL (1.3-3.2); Glucose 124 mg/dl (74-100); Lymphocytes % 6 % (10-50); Monocytes % 5 % (2-9); Neutrophils % 88 % (42-76); Nucleated Red Blood Cells 2; Total Cells Counted 100; Total Protein,Serum 7.2 g/dl (6.3-8.2)
[2020-04-12 09:53] LABS: Anisocytosis 1+; Macrocytosis 1+; Platelet Estimate Slight Increase
[2020-04-12 11:00] VITALS: BP 117/62; PULSE 98; RESP 20; TEMP 36.6; O2SAT 100
[2020-04-12 11:15] VITALS: BP 123/64; PULSE 94; RESP 20; O2SAT 99
[2020-04-12 11:30] VITALS: BP 116/71; PULSE 92; RESP 18; O2SAT 98
[2020-04-12 11:45] VITALS: BP 91/58; PULSE 97; RESP 18; O2SAT 99
== END 2020-04-12 11:45 | disposition home or self-care (01) ==
LOC: INF 09:18
PROVIDERS: Visit Provider Internal Medicine Medical Oncology
DX: Z51.11 Encounter for antineoplastic chemotherapy (principal); C34.91 Malignant neoplasm of unspecified part of right bronchus or lung
CPT/HCPCS: 80053; 85007; 85025; 96413; J2405; J9351

== ENCOUNTER 2020-04-19 09:39 | Outpatient (CLI) | payer OTHER, SELFPAY ==
[2020-04-19 09:42] VITALS: BMI 21.8
[2020-04-19 09:56] LABS: Basophils % 0.8 % (0.1-2.0); Eosinophils % 0.9 % (0.1-12.0); Hematocrit 31.1 % (42.0-52.0); Hemoglobin 10.1 g/dL (14.1-18.0); Lymphocytes # 0.8 K/mm3 (0.7-4.5); Lymphocytes % 16.6 % (10-50); Mean Corpuscular HGB Conc 32.6 g/dL (31.8-35.4); Mean Corpuscular Hemoglobin 33.6 pg (27.0-31.2); Mean Corpuscular Volume 103.2 fl (80-94); Mean Platelet Volume 6.6 fl (7.4-10.4); Monocytes # 0.4 K/mm3 (0.1-1.0); Monocytes % 7.4 % (1.7-9.3); Neutrophils # 3.5 K/mm3 (1.8-7.8); Neutrophils % 74.4 % (37.0-80.0); Platelet Count 432 K/mm3 (142-424); Red Blood Count 3.01 M/mm3 (4.60-6.20); Red Cell Distribution Width 14.1 % (11.5-17.5); White Blood Count 4.7 K/mm3 (4.8-10.8)
[2020-04-19 10:00] LABS: Chloride 102 mmol/L (98-107); Sodium 137 mmol/L (136-145)
[2020-04-19 10:01] LABS: Potassium 3.9 mmoL/L (3.5-5.1)
[2020-04-19 10:03] LABS: Alanine Aminotransferase 16 U/L (12-78); Albumin Level 4.3 g/dl (3.5-5.0); Albumin/Globulin Ratio 1.3 (1.1-1.8); Alkaline Phosphatase 142 U/L (38-126); Anion Gap 11.9 mEq/L (5-15); Aspartate Amino Transferase 24 U/L (17-59); Bilirubin,Total 0.6 mg/dl (0.2-1.3); Blood Urea Nitrogen 13 mg/dl (9-20); Calcium 9.3 mg/dl (8.4-10.2); Carbon Dioxide 27 mmol/L (22.0-30.0); Creatinine Clearance Estimated 75 mL/min (50-200); Estimated Glomerular Filt Rate 114 ml/min (>60); GFR (African American) 138 ML/MIN (>60); Globulin 3.3 g/dL (1.3-3.2); Glucose 90 mg/dl (74-100); Total Protein,Serum 7.6 g/dl (6.3-8.2)
[2020-04-19 11:05] VITALS: BP 121/68; PULSE 99; RESP 18; O2SAT 99
[2020-04-19 11:20] VITALS: BP 122/77; PULSE 92; RESP 18; O2SAT 98
[2020-04-19 11:35] VITALS: BP 134/78; PULSE 94; RESP 18
[2020-04-19 11:48] VITALS: BP 134/87; PULSE 100; RESP 20; O2SAT 99
== END 2020-04-19 11:48 | disposition home or self-care (01) ==
LOC: INF 09:40
PROVIDERS: Visit Provider Internal Medicine Medical Oncology
DX: Z51.11 Encounter for antineoplastic chemotherapy (principal); C34.91 Malignant neoplasm of unspecified part of right bronchus or lung
CPT/HCPCS: 80053; 85025; 96413; J2405; J9351

== ENCOUNTER 2020-04-26 08:25 | Outpatient (CLI) | payer OTHER, SELFPAY ==
[2020-04-26 08:28] VITALS: BMI 21.5
[2020-04-26 08:44] LABS: Basophils % 0.4 % (0.1-2.0); Eosinophils # 0.1 K/mm3 (0.0-0.4); Hematocrit 29.8 % (42.0-52.0); Hemoglobin 10.4 g/dL (14.1-18.0); Lymphocytes # 0.9 K/mm3 (0.7-4.5); Lymphocytes % 33.1 % (10-50); Mean Corpuscular HGB Conc 34.9 g/dL (31.8-35.4); Mean Corpuscular Volume 100.4 fl (80-94); Mean Platelet Volume 8.4 fl (7.4-10.4); Monocytes # 0.1 K/mm3 (0.1-1.0); Neutrophils # 1.7 K/mm3 (1.8-7.8); Neutrophils % 59.6 % (37.0-80.0); Platelet Count 172 K/mm3 (142-424); Red Blood Count 2.97 M/mm3 (4.60-6.20); Red Cell Distribution Width 14.7 % (11.5-17.5); White Blood Count 2.8 K/mm3 (4.8-10.8)
[2020-04-26 08:47] LABS: Chloride 102 mmol/L (98-107); Sodium 136 mmol/L (136-145)
[2020-04-26 08:50] LABS: Alanine Aminotransferase 15 U/L (12-78); Albumin Level 4.3 g/dl (3.5-5.0); Albumin/Globulin Ratio 1.4 (1.1-1.8); Alkaline Phosphatase 124 U/L (38-126); Aspartate Amino Transferase 23 U/L (17-59); Bilirubin,Total 0.5 mg/dl (0.2-1.3); Blood Urea Nitrogen 9 mg/dl (9-20); Calcium 9.5 mg/dl (8.4-10.2); Carbon Dioxide 29 mmol/L (22.0-30.0); Creatinine Clearance Estimated 74 mL/min (50-200); Estimated Glomerular Filt Rate 114 ml/min (>60); GFR (African American) 138 ML/MIN (>60); Globulin 3.1 g/dL (1.3-3.2); Glucose 109 mg/dl (74-100); Total Protein,Serum 7.4 g/dl (6.3-8.2)
[2020-04-26 10:20] VITALS: BP 109/64; PULSE 88; RESP 20; O2SAT 100
[2020-04-26 10:35] VITALS: BP 101/69; PULSE 83; RESP 20
[2020-04-26 10:50] VITALS: RESP 20
[2020-04-26 11:15] VITALS: BP 102/41; PULSE 86; RESP 20; O2SAT 99
== END 2020-04-26 11:15 | disposition home or self-care (01) ==
LOC: INF 08:25
PROVIDERS: Visit Provider Internal Medicine Medical Oncology
DX: Z51.11 Encounter for antineoplastic chemotherapy (principal); C34.91 Malignant neoplasm of unspecified part of right bronchus or lung
CPT/HCPCS: 80053; 85025; 96372; 96413; J2405; J2505; J9351

== ENCOUNTER → 2020-05-01 11:10 | Outpatient (CLI) | payer OTHER, SELFPAY ==
--- NOTE | 2020-05-01 11:13 | CT_ITS ---
PROCEDURE: CT CHEST W CON CLINCAL INDICATION: LUNG CA COMPARISON: CT CHEST WO/W CON from 09/23/2019 CT CHEST W CON from 01/16/2020 CT ABDOMEN PELVIS W CON from 05/01/2020 TECHNIQUE: IV Contrast: 75ml Optiray 350 Axial images obtained with sagittal and coronal reformats. All CT scans at the facility use one or more dose reduction, viz: automated exposure control, ma/kV adjustment per patient size (including targeted exams where dose is matched to indication, i.e. head), or iterative reconstruction technique. FINDINGS: Tracheobronchial tree is unremarkable. Scattered emphysematous changes are noted. There is a new infiltrate in the anterior apical segment of the right upper lobe. There is a 1 centimeter calcified granuloma within the left lower lobe. Thyroid is unremarkable. There is no significant mediastinal adenopathy. Soft issues and the bony structures are unremarkable. IMPRESSION: COPD, right upper lobe infiltrate, left lower lobe calcified granuloma Dictated by: Alon Conte 05/01/2020 14:24 Electronically signed by Alon Conte in [place] 05/01/2020 14:24
--- NOTE | 2020-05-01 11:13 | CT_ITS ---
PROCEDURE: CT ABDOMEN PELVIS W CON CLINICAL INDICATION: LUNG CA COMPARISON: CT ABDOMEN PELVIS W CON from 01/16/2020 TECHNIQUE: IV Contrast: 75ML OPTIRAY 350 Oral Contrast None Axial images obtained with sagittal and coronal reformats. All CT scans at the facility use one or more dose reduction, viz: automated exposure control, ma/kV adjustment per patient size (including targeted exams where dose is matched to indication, i.e. head), or iterative reconstruction technique. FINDINGS: There are several new low-density lesions now noted throughout the hepatic parenchyma. For reference a low-density lesion in the medial aspect of the right hepatic lobe which formally measured 21 millimeters x 27 millimeters now measures 41 millimeters x 36 millimeters. There is new bulky periportal adenopathy which the largest lymph node measures 27 millimeters. Splenic and portal veins are patent. The adrenal glands, kidneys, pancreas, aorta, small and large bowel, appendix, soft tissue, and bony structures are unremarkable. CT scan of the pelvis with contrast The prostate is enlarged. Seminal vesicles, bladder, soft tissues and bony structures are unremarkable. IMPRESSION: Increased size and number of the hepatic metastatic lesions and interval periportal adenopathy Dictated by: Alon Conte 05/01/2020 14:32 Electronically signed by Alon Conte in [place] 05/01/2020 14:32
== END ==
PROVIDERS: PCP Family Medicine; Visit Provider Internal Medicine Medical Oncology
DX: C34.90 Malignant neoplasm of unspecified part of unspecified bronchus or lung (principal)
CPT/HCPCS: 71260; 74177; Q9967

== ENCOUNTER 2020-05-18 09:10 | Outpatient (CLI) | payer OTHER, SELFPAY ==
[2020-05-18 09:10] VITALS: BMI 21.1
[2020-05-18 09:39] LABS: Basophils % 0.5 % (0.1-2.0); Eosinophils # 0.1 K/mm3 (0.0-0.4); Eosinophils % 1.9 % (0.1-12.0); Hematocrit 34.5 % (42.0-52.0); Hemoglobin 11.2 g/dL (14.1-18.0); Lymphocytes % 12.6 % (10-50); Mean Corpuscular HGB Conc 32.5 g/dL (31.8-35.4); Mean Corpuscular Hemoglobin 35.3 pg (27.0-31.2); Mean Corpuscular Volume 108.4 fl (80-94); Mean Platelet Volume 7.8 fl (7.4-10.4); Monocytes # 0.6 K/mm3 (0.1-1.0); Monocytes % 7.3 % (1.7-9.3); Neutrophils # 5.8 K/mm3 (1.8-7.8); Neutrophils % 77.7 % (37.0-80.0); Platelet Count 543 K/mm3 (142-424); Red Blood Count 3.18 M/mm3 (4.60-6.20); Red Cell Distribution Width 16.9 % (11.5-17.5); White Blood Count 7.5 K/mm3 (4.8-10.8)
[2020-05-18 09:43] LABS: Chloride 102 mmol/L (98-107); Sodium 138 mmol/L (136-145)
[2020-05-18 09:45] LABS: Alanine Aminotransferase 14 U/L (12-78); Aspartate Amino Transferase 30 U/L (17-59); Blood Urea Nitrogen 5 mg/dl (9-20); Creatinine Clearance Estimated 71 mL/min (50-200); Estimated Glomerular Filt Rate 136 ml/min (>60); GFR (African American) 165 ML/MIN (>60)
[2020-05-18 09:46] LABS: Albumin Level 4.4 g/dl (3.5-5.0); Albumin/Globulin Ratio 1.4 (1.1-1.8); Alkaline Phosphatase 132 U/L (38-126); Bilirubin,Total 0.6 mg/dl (0.2-1.3); Calcium 9.7 mg/dl (8.4-10.2); Carbon Dioxide 29 mmol/L (22.0-30.0); Globulin 3.1 g/dL (1.3-3.2); Glucose 99 mg/dl (74-100); Total Protein,Serum 7.5 g/dl (6.3-8.2)
[2020-05-18 10:17] LABS: Thyroid Stimulating Hormone 1.55 uIU/mL (0.465-4.68)
[2020-05-18 10:20] VITALS: BP 124/73; PULSE 98; RESP 20; O2SAT 100
[2020-05-18 10:35] VITALS: BP 130/83; PULSE 98; RESP 20; O2SAT 99
[2020-05-18 10:50] VITALS: BP 116/76; PULSE 101; RESP 20; O2SAT 100
[2020-05-18 11:05] VITALS: BP 99/73; PULSE 96; RESP 20; O2SAT 100
[2020-05-20 08:52] LABS: Adrenocorticotropic Hormone 12.7 pg/mL (7.2-63.3)
== END 2020-05-18 11:05 | disposition home or self-care (01) ==
LOC: INF 09:10
PROVIDERS: Visit Provider Internal Medicine Medical Oncology
DX: Z51.11 Encounter for antineoplastic chemotherapy (principal); C34.91 Malignant neoplasm of unspecified part of right bronchus or lung
CPT/HCPCS: 80053; 82024; 82533; 84443; 85025; 96413; J9299

== ENCOUNTER → 2020-05-31 08:49 | Outpatient (CLI) | payer OTHER, SELFPAY ==
[2020-05-31 08:51] VITALS: BMI 20.5
[2020-05-31 09:10] LABS: Basophils % 0.4 % (0.1-2.0); Eosinophils # 0.3 K/mm3 (0.0-0.4); Eosinophils % 3.5 % (0.1-12.0); Hematocrit 36.4 % (42.0-52.0); Hemoglobin 11.9 g/dL (14.1-18.0); Lymphocytes # 1.1 K/mm3 (0.7-4.5); Lymphocytes % 13.2 % (10-50); Mean Corpuscular HGB Conc 32.6 g/dL (31.8-35.4); Mean Corpuscular Hemoglobin 34.9 pg (27.0-31.2); Mean Corpuscular Volume 107.1 fl (80-94); Mean Platelet Volume 7.7 fl (7.4-10.4); Monocytes # 0.6 K/mm3 (0.1-1.0); Neutrophils # 6.3 K/mm3 (1.8-7.8); Platelet Count 470 K/mm3 (142-424); Red Cell Distribution Width 15.5 % (11.5-17.5); White Blood Count 8.3 K/mm3 (4.8-10.8)
[2020-05-31 09:15] LABS: Chloride 100 mmol/L (98-107); Sodium 141 mmol/L (136-145)
[2020-05-31 09:17] LABS: Blood Urea Nitrogen 11 mg/dl (9-20); Creatinine Clearance Estimated 69 mL/min (50-200); Estimated Glomerular Filt Rate 114 ml/min (>60); GFR (African American) 138 ML/MIN (>60)
[2020-05-31 09:18] LABS: Albumin Level 4.3 g/dl (3.5-5.0); Albumin/Globulin Ratio 1.3 (1.1-1.8); Alkaline Phosphatase 124 U/L (38-126); Bilirubin,Total 0.3 mg/dl (0.2-1.3); Calcium 9.7 mg/dl (8.4-10.2); Carbon Dioxide 31 mmol/L (22.0-30.0); Globulin 3.4 g/dL (1.3-3.2); Glucose 94 mg/dl (74-100); Total Protein,Serum 7.7 g/dl (6.3-8.2)
[2020-05-31 09:20] LABS: Alanine Aminotransferase 17 U/L (12-78); Aspartate Amino Transferase 26 U/L (17-59)
[2020-05-31 09:49] LABS: Thyroid Stimulating Hormone 0.93 uIU/mL (0.465-4.68)
[2020-05-31 10:20] VITALS: BP 100/71; PULSE 95; RESP 20; TEMP 36.6; O2SAT 100
[2020-05-31 11:05] VITALS: BP 91/56; PULSE 98; RESP 20; O2SAT 100
== END ==
PROVIDERS: Visit Provider Internal Medicine Medical Oncology
DX: Z51.11 Encounter for antineoplastic chemotherapy (principal); C34.91 Malignant neoplasm of unspecified part of right bronchus or lung
CPT/HCPCS: 80053; 82024; 82533; 84443; 85025; 96413; J2405; J9299

== ENCOUNTER → 2020-06-14 09:32 | Outpatient (CLI) | payer OTHER, SELFPAY ==
[2020-06-14 09:34] VITALS: BMI 19.3
[2020-06-14 09:51] LABS: Basophils % 0.2 % (0.1-2.0); Eosinophils # 0.2 K/mm3 (0.0-0.4); Eosinophils % 2.8 % (0.1-12.0); Hematocrit 36.7 % (42.0-52.0); Hemoglobin 12.3 g/dL (14.1-18.0); Lymphocytes # 1.1 K/mm3 (0.7-4.5); Lymphocytes % 17.5 % (10-50); Mean Corpuscular HGB Conc 33.6 g/dL (31.8-35.4); Mean Platelet Volume 7.5 fl (7.4-10.4); Monocytes # 0.3 K/mm3 (0.1-1.0); Monocytes % 5.4 % (1.7-9.3); Neutrophils # 4.5 K/mm3 (1.8-7.8); Platelet Count 320 K/mm3 (142-424); Red Blood Count 3.53 M/mm3 (4.60-6.20); Red Cell Distribution Width 14.6 % (11.5-17.5); White Blood Count 6.1 K/mm3 (4.8-10.8)
[2020-06-14 10:01] LABS: Chloride 99 mmol/L (98-107)
[2020-06-14 10:04] LABS: Alanine Aminotransferase 14 U/L (12-78); Albumin Level 4.6 g/dl (3.5-5.0); Albumin/Globulin Ratio 1.4 (1.1-1.8); Alkaline Phosphatase 120 U/L (38-126); Aspartate Amino Transferase 27 U/L (17-59); Bilirubin,Total 0.4 mg/dl (0.2-1.3); Blood Urea Nitrogen 10 mg/dl (9-20); Calcium 9.6 mg/dl (8.4-10.2); Carbon Dioxide 30 mmol/L (22.0-30.0); Creatinine Clearance Estimated 65 mL/min (50-200); Estimated Glomerular Filt Rate 114 ml/min (>60); GFR (African American) 138 ML/MIN (>60); Globulin 3.2 g/dL (1.3-3.2); Glucose 101 mg/dl (74-100); Sodium 138 mmol/L (136-145); Total Protein,Serum 7.8 g/dl (6.3-8.2)
[2020-06-14 10:25] VITALS: BP 103/66; PULSE 89; RESP 20; TEMP 36.8; O2SAT 99
[2020-06-14 10:35] LABS: Thyroid Stimulating Hormone 0.73 uIU/mL (0.465-4.68)
[2020-06-14 11:15] VITALS: BP 106/71; PULSE 88; RESP 20; O2SAT 98
[2020-06-14 11:30] VITALS: BP 122/50; PULSE 89; RESP 20; O2SAT 99
[2020-06-14 11:40] VITALS: BP 104/74; PULSE 91; RESP 20
[2020-06-15 17:11] LABS: Adrenocorticotropic Hormone 16.1 pg/mL (7.2-63.3)
== END ==
PROVIDERS: Visit Provider Internal Medicine Medical Oncology
DX: Z51.11 Encounter for antineoplastic chemotherapy (principal); C34.91 Malignant neoplasm of unspecified part of right bronchus or lung
CPT/HCPCS: 80053; 82024; 82533; 84443; 85025; 96413; J2405; J9299

== ENCOUNTER 2020-06-28 09:30 | Outpatient (CLI) | payer OTHER, SELFPAY ==
[2020-06-28 09:32] VITALS: BMI 18.9
[2020-06-28 09:53] LABS: Hematocrit 38.3 % (42.0-52.0); Hemoglobin 12.7 g/dL (14.1-18.0); Mean Corpuscular Volume 106.4 fl (80-94); White Blood Count 6.7 K/mm3 (4.8-10.8)
[2020-06-28 09:54] LABS: Mean Corpuscular HGB Conc 33.2 g/dL (31.8-35.4); Mean Corpuscular Hemoglobin 35.3 pg (27.0-31.2); Neutrophils % 73.9 % (37.0-80.0); Platelet Count 331 K/mm3 (142-424); Red Cell Distribution Width 14.3 % (11.5-17.5)
[2020-06-28 09:55] LABS: Basophils % 0.5 % (0.1-2.0); Eosinophils # 0.2 K/mm3 (0.0-0.4); Monocytes # 0.4 K/mm3 (0.1-1.0)
[2020-06-28 10:01] LABS: Lymphocytes # 1.1 K/mm3 (0.7-4.5); Lymphocytes % 16.7 % (10-50)
[2020-06-28 10:15] LABS: Alanine Aminotransferase 12 U/L (12-78); Albumin Level 4.1 g/dl (3.5-5.0); Albumin/Globulin Ratio 1.3 (1.1-1.8); Alkaline Phosphatase 92 U/L (38-126); Aspartate Amino Transferase 22 U/L (17-59); Bilirubin,Total 0.4 mg/dl (0.2-1.3); Blood Urea Nitrogen 11 mg/dl (9-20); Carbon Dioxide 30 mmol/L (22.0-30.0); Chloride 102 mmol/L (98-107); Creatinine Clearance Estimated 64 mL/min (50-200); Estimated Glomerular Filt Rate 136 ml/min (>60); GFR (African American) 165 ML/MIN (>60); Globulin 3.1 g/dL (1.3-3.2); Glucose 117 mg/dl (74-100); Sodium 142 mmol/L (136-145); Total Protein,Serum 7.2 g/dl (6.3-8.2)
[2020-06-28 11:30] LABS: Thyroid Stimulating Hormone 0.79 uIU/mL (0.465-4.68)
[2020-06-28 11:48] VITALS: BP 110/69; PULSE 98; RESP 20; O2SAT 100
[2020-06-28 12:10] VITALS: BP 87/47; PULSE 80; RESP 20; O2SAT 100
[2020-06-28 12:22] VITALS: BP 107/66; PULSE 91; RESP 20; O2SAT 99
[2020-06-28 12:35] VITALS: BP 91/65; PULSE 85; RESP 18; O2SAT 99
[2020-06-29 14:13] LABS: Adrenocorticotropic Hormone 7.1 pg/mL (7.2-63.3)
== END 2020-06-28 12:35 | disposition home or self-care (01) ==
LOC: INF 09:31
PROVIDERS: Visit Provider Internal Medicine Medical Oncology
DX: Z51.11 Encounter for antineoplastic chemotherapy (principal); C34.91 Malignant neoplasm of unspecified part of right bronchus or lung
CPT/HCPCS: 80053; 82024; 82533; 84443; 85025; 96413; J2405; J9299

== ENCOUNTER 2020-07-10 10:14 | Outpatient (CLI) | payer OTHER, SELFPAY ==
[2020-07-10 10:03] VITALS: BMI 21.1
--- NOTE | 2020-07-10 10:17 | CT_ITS ---
PROCEDURE: CT CHEST W CON CLINCAL INDICATION: LUNG CANCER F/U ON CHEMO Follow-up lung cancer COMPARISON: CT LUNGSCREEN CT lung screening from 12/08/[address] chest wo con from 03/08/[address] CHEST WO/W CON from 09/23/[address] CHEST W CON from 05/01/2020 TECHNIQUE: IV Contrast: 75ml Optiray 350 Axial images obtained with sagittal and coronal reformats. All CT scans at the facility use one or more dose reduction, viz: automated exposure control, ma/kV adjustment per patient size (including targeted exams where dose is matched to indication, i.e. head), or iterative reconstruction technique. FINDINGS: HEART AND MEDIASTINAL STRUCTURES: No mediastinal or hilar mass or adenopathy. There is mild diffuse thickening of the thoracic esophagus which is nonspecific. Pericardium is thickened anteriorly measuring up to 13 mm. LUNGS AND PLEURAL SPACES: There are centrilobular emphysematous changes with scattered areas of scarring no lobar consolidation or collapse. No suspicious nodules. BONY STRUCTURES: There are old left 3rd 4th and 5th rib fractures. UPPER ABDOMEN: Please see abdomen report ADDITIONAL FINDINGS: No other significant abnormalities. IMPRESSION: Overall stable CT appearance of the chest with emphysema and scattered areas of scarring.. Pericardial effusion Dictated by: Wenceslao White MD 07/11/2020 12:48 Wenceslao White MD in [place] 07/11/2020 12:48
--- NOTE | 2020-07-10 10:17 | CT_ITS ---
PROCEDURE: CT ABDOMEN PELVIS W CON CLINICAL INDICATION: LUNG CANCER F/U ON CHEMO Follow-up hepatic metastasis COMPARISON: CT CT ABDOMEN PELVIS W CON from 05/01/2020 TECHNIQUE: IV Contrast: 75ML OPTIRAY 350 Oral Contrast None Axial images obtained with sagittal and coronal reformats. All CT scans at the facility use one or more dose reduction, viz: automated exposure control, ma/kV adjustment per patient size (including targeted exams where dose is matched to indication, i.e. head), or iterative reconstruction technique. FINDINGS: Previously noted low-density lesions of the liver have markedly decreased in size. For instance, there is a 1 cm lesion in the right hepatic lobe inferiorly segment 6 previously measured 3 cm. An additional 2.3 cm lesion right hepatic lobe segment 7 previously measured 4 cm. No new lesions are evident. Other smaller lesions are noted as well which have decreased in size. The The spleen, adrenal glands, and pancreas have an unremarkable appearance. There are small bilateral renal cyst. There are small periportal lymph nodes which have also decreased in size previously measuring up to 2.7 cm now measuring 1.4 cm. No intestinal obstruction or free air. There is mild thickening of the junction of the descending and sigmoid colon which is nonspecific there is an area of increased soft tissue density within the tip of the cecum. This could be related to feces a focal lesion. No acute bony findings... IMPRESSION: 1. Interval improvement of metastatic lesions with decrease in size of the multiple liver lesions and portal adenopathy. 2. There is a focal area of soft tissue thickening in the tip of the cecum possibly due to nondistention or adherent feces. Cannot exclude a mucosal lesion. Colonoscopy or barium enema may provide further evaluation Dictated by: Wenceslao White MD 07/11/2020 12:56 Wenceslao White MD in [place] 07/11/2020 12:56
[2020-07-10 10:19] LABS: Basophils % 0.3 % (0.1-2.0); Eosinophils # 0.1 K/mm3 (0.0-0.4); Hematocrit 37.5 % (42.0-52.0); Hemoglobin 12.5 g/dL (14.1-18.0); Lymphocytes % 21.8 % (10-50); Mean Corpuscular HGB Conc 33.3 g/dL (31.8-35.4); Mean Corpuscular Hemoglobin 34.4 pg (27.0-31.2); Mean Corpuscular Volume 103.5 fl (80-94); Mean Platelet Volume 7.5 fl (7.4-10.4); Monocytes # 0.4 K/mm3 (0.1-1.0); Monocytes % 8.2 % (1.7-9.3); Neutrophils # 3.2 K/mm3 (1.8-7.8); Neutrophils % 67.6 % (37.0-80.0); Platelet Count 359 K/mm3 (142-424); Red Blood Count 3.62 M/mm3 (4.60-6.20); Red Cell Distribution Width 13.8 % (11.5-17.5); White Blood Count 4.7 K/mm3 (4.8-10.8)
[2020-07-10 10:26] LABS: Chloride 103 mmol/L (98-107); Sodium 139 mmol/L (136-145)
[2020-07-10 10:28] LABS: Alanine Aminotransferase 13 U/L (12-78); Alkaline Phosphatase 97 U/L (38-126); Aspartate Amino Transferase 27 U/L (17-59); Bilirubin,Total 0.4 mg/dl (0.2-1.3); Blood Urea Nitrogen 7 mg/dl (9-20); Creatinine Clearance Estimated 71 mL/min (50-200); Estimated Glomerular Filt Rate 136 ml/min (>60); GFR (African American) 165 ML/MIN (>60)
[2020-07-10 10:29] LABS: Albumin/Globulin Ratio 1.3 (1.1-1.8); Calcium 9.4 mg/dl (8.4-10.2); Carbon Dioxide 29 mmol/L (22.0-30.0); Glucose 98 mg/dl (74-100)
[2020-07-10 11:00] LABS: Thyroid Stimulating Hormone 0.68 uIU/mL (0.465-4.68)
[2020-07-12 06:53] LABS: Adrenocorticotropic Hormone 21.9 pg/mL (7.2-63.3)
== END 2020-07-10 10:56 | disposition home or self-care (01) ==
LOC: INF 10:14
PROVIDERS: PCP Family Medicine; Visit Provider Internal Medicine Medical Oncology
DX: C34.90 Malignant neoplasm of unspecified part of unspecified bronchus or lung (principal)
CPT/HCPCS: 71260; 74177; 80053; 82024; 82533; 84443; 85025; Q9967

== ENCOUNTER → 2020-07-12 10:20 | Outpatient (CLI) | payer OTHER, SELFPAY ==
[2020-07-12 11:13] VITALS: BP 98/67; PULSE 99; RESP 20; TEMP 36.4; O2SAT 97
[2020-07-12 11:30] VITALS: BP 110/70; PULSE 97; RESP 20
[2020-07-12 11:45] VITALS: BP 122/71; PULSE 98; RESP 20
[2020-07-12 11:55] VITALS: BP 121/61; PULSE 92; RESP 20; O2SAT 98
== END ==
PROVIDERS: Visit Provider Internal Medicine Medical Oncology
DX: Z51.11 Encounter for antineoplastic chemotherapy (principal); C34.91 Malignant neoplasm of unspecified part of right bronchus or lung
CPT/HCPCS: 96413; J2405; J9299

== ENCOUNTER 2020-07-26 09:02 | Outpatient (CLI) | payer OTHER, SELFPAY ==
[2020-07-26 09:04] VITALS: BMI 19.1
[2020-07-26 09:32] LABS: Basophils % 0.4 % (0.1-2.0); Eosinophils # 0.2 K/mm3 (0.0-0.4); Eosinophils % 2.5 % (0.1-12.0); Hematocrit 41.7 % (42.0-52.0); Lymphocytes # 1.1 K/mm3 (0.7-4.5); Lymphocytes % 18.9 % (10-50); Mean Corpuscular HGB Conc 33.6 g/dL (31.8-35.4); Mean Corpuscular Hemoglobin 34.4 pg (27.0-31.2); Mean Corpuscular Volume 102.4 fl (80-94); Mean Platelet Volume 7.2 fl (7.4-10.4); Monocytes # 0.4 K/mm3 (0.1-1.0); Monocytes % 7.3 % (1.7-9.3); Neutrophils # 4.2 K/mm3 (1.8-7.8); Neutrophils % 70.8 % (37.0-80.0); Platelet Count 282 K/mm3 (142-424); Red Blood Count 4.07 M/mm3 (4.60-6.20); Red Cell Distribution Width 13.5 % (11.5-17.5)
[2020-07-26 09:42] LABS: Alanine Aminotransferase 13 U/L (12-78); Albumin Level 4.5 g/dl (3.5-5.0); Albumin/Globulin Ratio 1.4 (1.1-1.8); Alkaline Phosphatase 91 U/L (38-126); Anion Gap 12.2 mEq/L (5-15); Aspartate Amino Transferase 36 U/L (17-59); Bilirubin,Total 0.5 mg/dl (0.2-1.3); Blood Urea Nitrogen 11 mg/dl (9-20); Calcium 9.8 mg/dl (8.4-10.2); Carbon Dioxide 33 mmol/L (22.0-30.0); Chloride 100 mmol/L (98-107); Creatinine Clearance Estimated 65 mL/min (50-200); Estimated Glomerular Filt Rate 136 ml/min (>60); GFR (African American) 165 ML/MIN (>60); Globulin 3.2 g/dL (1.3-3.2); Glucose 98 mg/dl (74-100); Potassium 4.2 mmoL/L (3.5-5.1); Sodium 141 mmol/L (136-145); Total Protein,Serum 7.7 g/dl (6.3-8.2)
[2020-07-26 10:13] LABS: Thyroid Stimulating Hormone 1.09 uIU/mL (0.465-4.68)
[2020-07-26 10:40] VITALS: BP 123/77; PULSE 93; RESP 20; O2SAT 98
[2020-07-26 11:10] VITALS: BP 129/73; PULSE 89; RESP 20
[2020-07-26 11:25] VITALS: BP 128/78; PULSE 88; RESP 20
[2020-07-28 18:18] LABS: Adrenocorticotropic Hormone 16.3 pg/mL (7.2-63.3)
== END 2020-07-26 11:25 | disposition home or self-care (01) ==
LOC: INF 09:02
PROVIDERS: Visit Provider Internal Medicine Medical Oncology
DX: Z51.11 Encounter for antineoplastic chemotherapy (principal); C34.91 Malignant neoplasm of unspecified part of right bronchus or lung
CPT/HCPCS: 80053; 82024; 82533; 84443; 85025; 96413; J2405; J9299

== ENCOUNTER 2020-08-09 08:37 | Outpatient (CLI) | payer OTHER, SELFPAY ==
[2020-08-09 08:38] VITALS: BMI 19.1
[2020-08-09 08:56] LABS: Basophils % 0.3 % (0.1-2.0); Eosinophils # 0.2 K/mm3 (0.0-0.4); Eosinophils % 2.9 % (0.1-12.0); Hematocrit 42.4 % (42.0-52.0); Hemoglobin 14.1 g/dL (14.1-18.0); Lymphocytes # 0.9 K/mm3 (0.7-4.5); Lymphocytes % 15.4 % (10-50); Mean Corpuscular HGB Conc 33.3 g/dL (31.8-35.4); Mean Corpuscular Hemoglobin 33.9 pg (27.0-31.2); Mean Corpuscular Volume 101.8 fl (80-94); Mean Platelet Volume 7.1 fl (7.4-10.4); Monocytes # 0.3 K/mm3 (0.1-1.0); Monocytes % 5.6 % (1.7-9.3); Neutrophils # 4.2 K/mm3 (1.8-7.8); Neutrophils % 75.8 % (37.0-80.0); Platelet Count 291 K/mm3 (142-424); Red Blood Count 4.17 M/mm3 (4.60-6.20); Red Cell Distribution Width 13.6 % (11.5-17.5); White Blood Count 5.5 K/mm3 (4.8-10.8)
[2020-08-09 08:59] LABS: Chloride 103 mmol/L (98-107)
[2020-08-09 09:00] LABS: Potassium 3.9 mmoL/L (3.5-5.1); Sodium 141 mmol/L (136-145)
[2020-08-09 09:02] LABS: Alanine Aminotransferase 12 U/L (12-78); Aspartate Amino Transferase 29 U/L (17-59); Blood Urea Nitrogen 11 mg/dl (9-20); Creatinine Clearance Estimated 65 mL/min (50-200); Estimated Glomerular Filt Rate 114 ml/min (>60); GFR (African American) 138 ML/MIN (>60)
[2020-08-09 09:03] LABS: Albumin Level 4.4 g/dl (3.5-5.0); Albumin/Globulin Ratio 1.5 (1.1-1.8); Alkaline Phosphatase 91 U/L (38-126); Anion Gap 11.9 mEq/L (5-15); Bilirubin,Total 0.3 mg/dl (0.2-1.3); Calcium 9.7 mg/dl (8.4-10.2); Carbon Dioxide 30 mmol/L (22.0-30.0); Globulin 2.9 g/dL (1.3-3.2); Glucose 89 mg/dl (74-100); Total Protein,Serum 7.3 g/dl (6.3-8.2)
[2020-08-09 09:34] LABS: Thyroid Stimulating Hormone 0.59 uIU/mL (0.465-4.68)
[2020-08-09 10:10] VITALS: BP 108/71; PULSE 101; RESP 20; TEMP 36.7; O2SAT 99
[2020-08-09 10:25] VITALS: BP 113/76; PULSE 91; RESP 18
[2020-08-09 10:40] VITALS: BP 106/71; PULSE 92; RESP 20
[2020-08-09 10:48] VITALS: BP 118/70; PULSE 96; RESP 20
[2020-08-10 19:06] LABS: Adrenocorticotropic Hormone 17.2 pg/mL (7.2-63.3)
== END 2020-08-09 10:48 | disposition home or self-care (01) ==
LOC: INF 08:37
PROVIDERS: Visit Provider Internal Medicine Medical Oncology
DX: Z51.11 Encounter for antineoplastic chemotherapy (principal); C34.91 Malignant neoplasm of unspecified part of right bronchus or lung
CPT/HCPCS: 80053; 82024; 82533; 84443; 85025; 96413; J2405; J9299

== ENCOUNTER 2020-08-23 08:21 | Outpatient (CLI) | payer OTHER, SELFPAY ==
[2020-08-23 08:22] VITALS: BMI 19.1
[2020-08-23 08:39] LABS: Basophils % 0.5 % (0.1-2.0); Eosinophils # 0.2 K/mm3 (0.0-0.4); Eosinophils % 2.2 % (0.1-12.0); Hemoglobin 13.7 g/dL (14.1-18.0); Lymphocytes # 1.6 K/mm3 (0.7-4.5); Mean Corpuscular HGB Conc 31.1 g/dL (31.8-35.4); Mean Corpuscular Hemoglobin 32.3 pg (27.0-31.2); Mean Corpuscular Volume 103.7 fl (80-94); Mean Platelet Volume 6.8 fl (7.4-10.4); Monocytes # 0.6 K/mm3 (0.1-1.0); Monocytes % 8.8 % (1.7-9.3); Neutrophils # 4.2 K/mm3 (1.8-7.8); Neutrophils % 64.5 % (37.0-80.0); Platelet Count 291 K/mm3 (142-424); Red Blood Count 4.25 M/mm3 (4.60-6.20); Red Cell Distribution Width 13.4 % (11.5-17.5); White Blood Count 6.5 K/mm3 (4.8-10.8)
[2020-08-23 08:47] LABS: Chloride 103 mmol/L (98-107); Potassium 3.5 mmoL/L (3.5-5.1); Sodium 141 mmol/L (136-145)
[2020-08-23 08:49] LABS: Blood Urea Nitrogen 13 mg/dl (9-20); Creatinine Clearance Estimated 65 mL/min (50-200); Estimated Glomerular Filt Rate 114 ml/min (>60); GFR (African American) 138 ML/MIN (>60)
[2020-08-23 08:50] LABS: Alanine Aminotransferase 12 U/L (12-78); Albumin Level 4.2 g/dl (3.5-5.0); Albumin/Globulin Ratio 1.6 (1.1-1.8); Alkaline Phosphatase 85 U/L (38-126); Anion Gap 9.5 mEq/L (5-15); Aspartate Amino Transferase 25 U/L (17-59); Bilirubin,Total 0.2 mg/dl (0.2-1.3); Calcium 9.4 mg/dl (8.4-10.2); Carbon Dioxide 32 mmol/L (22.0-30.0); Globulin 2.6 g/dL (1.3-3.2); Glucose 63 mg/dl (74-100); Total Protein,Serum 6.8 g/dl (6.3-8.2)
[2020-08-23 09:21] LABS: Thyroid Stimulating Hormone 1.23 uIU/mL (0.465-4.68)
[2020-08-23 09:31] VITALS: BP 119/65; PULSE 92; RESP 20; O2SAT 97
[2020-08-23 09:45] VITALS: BP 105/70; PULSE 90; RESP 18
[2020-08-23 10:13] VITALS: BP 121/66; PULSE 82; RESP 20; O2SAT 97
[2020-08-24 14:32] LABS: Adrenocorticotropic Hormone 41.6 pg/mL (7.2-63.3)
== END 2020-08-23 10:13 | disposition home or self-care (01) ==
LOC: INF 08:21
PROVIDERS: Visit Provider Internal Medicine Medical Oncology
DX: Z51.11 Encounter for antineoplastic chemotherapy (principal); C34.91 Malignant neoplasm of unspecified part of right bronchus or lung
CPT/HCPCS: 80053; 82024; 82533; 84443; 85025; 96413; J2405; J9299

== ENCOUNTER → 2020-08-29 08:29 | Outpatient (CLI) | payer OTHER, SELFPAY ==
--- NOTE | 2020-08-29 08:33 | MR_ITS ---
PROCEDURE: MR CERVICAL SPINE WO/W CON CLINICAL INDICATION: LUNG CANCER, NECK PAIN Pt c/o left sided neck pain x 3 weeks with no known trauma or injury. Pt has a hx of lung and liver ca. COMPARISON: No exams were available for comparison TECHNIQUE: Standard multiplanar multiecho sequences are performed without and with contrast. 3-D MIP and myelographic images are also rendered and reviewed FINDINGS: There is normal alignment. The craniocervical junction has an unremarkable appearance. C2-C3: Unremarkable. C3-C4: Mild degenerative disc disease with some endplate hypertrophic change and minimal bulging disc with mild right lateral recess and foraminal narrowing C4-C5: Mild degenerative disc disease with endplate hypertrophic change. C5-C6: Mild degenerative disc disease with some endplate hypertrophic change C6-C7 and C7-T1 have an unremarkable appearance. No disc herniation or canal stenosis. No neural impingement. No bony destructive process. No enhancing lesions evident. The spinal cord has an unremarkable appearance. IMPRESSION: There is mild multilevel cervical spondylosis with degenerative disc disease bulging disc and mild endplate hypertrophic changes. No extruded herniated disc or canal stenosis. No convincing evidence of metastatic disease. Dictated by: Wenceslao White MD 08/30/2020 09:35 Wenceslao White MD in [place] 08/30/2020 09:35
== END ==
PROVIDERS: PCP Family Medicine; Visit Provider Internal Medicine Medical Oncology
DX: M54.2 Cervicalgia (principal); C34.90 Malignant neoplasm of unspecified part of unspecified bronchus or lung
CPT/HCPCS: 72156; 76376; A9576

== ENCOUNTER 2020-09-06 08:45 | Outpatient (CLI) | payer OTHER, SELFPAY ==
[2020-09-06 08:49] VITALS: BMI 19.7
[2020-09-06 09:15] LABS: Basophils % 0.6 % (0.1-2.0); Eosinophils # 0.3 K/mm3 (0.0-0.4); Eosinophils % 4.1 % (0.1-12.0); Hematocrit 43.1 % (42.0-52.0); Hemoglobin 14.4 g/dL (14.1-18.0); Lymphocytes # 1.4 K/mm3 (0.7-4.5); Lymphocytes % 23.1 % (10-50); Mean Corpuscular HGB Conc 33.5 g/dL (31.8-35.4); Mean Corpuscular Hemoglobin 32.7 pg (27.0-31.2); Mean Corpuscular Volume 97.6 fl (80-94); Monocytes # 0.4 K/mm3 (0.1-1.0); Monocytes % 6.4 % (1.7-9.3); Neutrophils % 65.8 % (37.0-80.0); Platelet Count 283 K/mm3 (142-424); Red Blood Count 4.41 M/mm3 (4.60-6.20)
[2020-09-06 09:16] LABS: Chloride 99 mmol/L (98-107); Potassium 3.9 mmoL/L (3.5-5.1); Sodium 137 mmol/L (136-145)
[2020-09-06 09:18] LABS: Alanine Aminotransferase 18 U/L (12-78); Aspartate Amino Transferase 26 U/L (17-59); Blood Urea Nitrogen 9 mg/dl (9-20); Creatinine Clearance Estimated 67 mL/min (50-200); Estimated Glomerular Filt Rate 114 ml/min (>60); GFR (African American) 138 ML/MIN (>60)
[2020-09-06 09:19] LABS: Albumin Level 4.6 g/dl (3.5-5.0); Albumin/Globulin Ratio 1.5 (1.1-1.8); Alkaline Phosphatase 89 U/L (38-126); Anion Gap 11.9 mEq/L (5-15); Bilirubin,Total 0.5 mg/dl (0.2-1.3); Calcium 9.6 mg/dl (8.4-10.2); Carbon Dioxide 30 mmol/L (22.0-30.0); Glucose 104 mg/dl (74-100); Total Protein,Serum 7.6 g/dl (6.3-8.2)
[2020-09-06 09:50] LABS: Thyroid Stimulating Hormone 1.18 uIU/mL (0.465-4.68)
[2020-09-06 10:18] VITALS: BP 117/74; PULSE 83; RESP 20; TEMP 36.4; O2SAT 100
[2020-09-06 10:30] VITALS: BP 123/69; PULSE 86; RESP 20
[2020-09-06 10:45] VITALS: BP 126/75; PULSE 80; RESP 18
[2020-09-06 10:56] VITALS: BP 127/78; PULSE 83; RESP 20
[2020-09-07 17:32] LABS: Adrenocorticotropic Hormone 35.5 pg/mL (7.2-63.3)
== END 2020-09-06 10:56 | disposition home or self-care (01) ==
LOC: INF 08:49
PROVIDERS: Visit Provider Internal Medicine Medical Oncology
DX: C34.91 Malignant neoplasm of unspecified part of right bronchus or lung (principal); Z51.11 Encounter for antineoplastic chemotherapy
CPT/HCPCS: 80053; 82024; 82533; 84443; 85025; 96413; J2405; J9299

== ENCOUNTER 2020-09-19 08:43 | Outpatient (CLI) | payer OTHER, SELFPAY ==
[2020-09-19 08:51] VITALS: BMI 20.5
[2020-09-19 09:15] LABS: Chloride 101 mmol/L (98-107); Potassium 3.9 mmoL/L (3.5-5.1); Sodium 140 mmol/L (136-145)
[2020-09-19 09:18] LABS: Alanine Aminotransferase 16 U/L (12-78); Albumin Level 4.6 g/dl (3.5-5.0); Albumin/Globulin Ratio 1.5 (1.1-1.8); Alkaline Phosphatase 93 U/L (38-126); Anion Gap 11.9 mEq/L (5-15); Aspartate Amino Transferase 25 U/L (17-59); Bilirubin,Total 0.5 mg/dl (0.2-1.3); Blood Urea Nitrogen 6 mg/dl (9-20); Carbon Dioxide 31 mmol/L (22.0-30.0); Creatinine Clearance Estimated 69 mL/min (50-200); Estimated Glomerular Filt Rate 98 ml/min (>60); GFR (African American) 118 ML/MIN (>60); Total Protein,Serum 7.6 g/dl (6.3-8.2)
[2020-09-19 09:19] LABS: Calcium 9.8 mg/dl (8.4-10.2); Glucose 111 mg/dl (74-100)
[2020-09-19 09:20] LABS: Basophils % 0.4 % (0.1-2.0); Eosinophils # 0.3 K/mm3 (0.0-0.4); Eosinophils % 6.4 % (0.1-12.0); Hematocrit 43.6 % (42.0-52.0); Hemoglobin 13.6 g/dL (14.1-18.0); Lymphocytes # 1.1 K/mm3 (0.7-4.5); Lymphocytes % 23.2 % (10-50); Mean Corpuscular HGB Conc 31.2 g/dL (31.8-35.4); Mean Corpuscular Hemoglobin 31.3 pg (27.0-31.2); Mean Corpuscular Volume 100.3 fl (80-94); Mean Platelet Volume 6.5 fl (7.4-10.4); Monocytes # 0.4 K/mm3 (0.1-1.0); Monocytes % 7.7 % (1.7-9.3); Neutrophils % 62.2 % (37.0-80.0); Platelet Count 301 K/mm3 (142-424); Red Blood Count 4.35 M/mm3 (4.60-6.20); Red Cell Distribution Width 13.5 % (11.5-17.5); White Blood Count 4.8 K/mm3 (4.8-10.8)
[2020-09-19 09:49] LABS: Thyroid Stimulating Hormone 0.79 uIU/mL (0.465-4.68)
[2020-09-19 09:57] VITALS: BP 114/61; PULSE 99; RESP 20; O2SAT 97
[2020-09-19 10:40] VITALS: BP 115/68; PULSE 98; RESP 18
[2020-09-20 20:01] LABS: Adrenocorticotropic Hormone 28.7 pg/mL (7.2-63.3)
== END 2020-09-19 10:40 | disposition home or self-care (01) ==
LOC: INF 08:50
PROVIDERS: Visit Provider Internal Medicine Medical Oncology
DX: Z51.11 Encounter for antineoplastic chemotherapy (principal); C34.91 Malignant neoplasm of unspecified part of right bronchus or lung
CPT/HCPCS: 80053; 82024; 82533; 84443; 85025; 96413; J2405; J9299

== ENCOUNTER 2020-10-02 08:25 | Outpatient (CLI) | payer OTHER, SELFPAY ==
[2020-10-02 08:29] VITALS: BMI 19.3
[2020-10-02 08:52] LABS: Basophils % 0.4 % (0.1-2.0); Eosinophils # 0.1 K/mm3 (0.0-0.4); Eosinophils % 2.6 % (0.1-12.0); Hematocrit 42.5 % (42.0-52.0); Hemoglobin 13.3 g/dL (14.1-18.0); Lymphocytes # 1.1 K/mm3 (0.7-4.5); Mean Corpuscular HGB Conc 31.3 g/dL (31.8-35.4); Mean Corpuscular Hemoglobin 31.2 pg (27.0-31.2); Mean Corpuscular Volume 99.6 fl (80-94); Mean Platelet Volume 6.6 fl (7.4-10.4); Monocytes # 0.5 K/mm3 (0.1-1.0); Monocytes % 9.3 % (1.7-9.3); Neutrophils # 3.2 K/mm3 (1.8-7.8); Neutrophils % 65.8 % (37.0-80.0); Platelet Count 289 K/mm3 (142-424); Red Blood Count 4.27 M/mm3 (4.60-6.20); Red Cell Distribution Width 13.8 % (11.5-17.5); White Blood Count 4.9 K/mm3 (4.8-10.8)
[2020-10-02 09:11] LABS: Chloride 101 mmol/L (98-107); Potassium 4.2 mmoL/L (3.5-5.1); Sodium 140 mmol/L (136-145)
[2020-10-02 09:14] LABS: Alanine Aminotransferase 13 U/L (12-78); Albumin Level 4.5 g/dl (3.5-5.0); Albumin/Globulin Ratio 1.5 (1.1-1.8); Alkaline Phosphatase 91 U/L (38-126); Anion Gap 9.2 mEq/L (5-15); Aspartate Amino Transferase 24 U/L (17-59); Bilirubin,Total 0.4 mg/dl (0.2-1.3); Blood Urea Nitrogen 15 mg/dl (9-20); Carbon Dioxide 34 mmol/L (22.0-30.0); Creatinine Clearance Estimated 65 mL/min (50-200); Estimated Glomerular Filt Rate 114 ml/min (>60); GFR (African American) 138 ML/MIN (>60); Total Protein,Serum 7.5 g/dl (6.3-8.2)
[2020-10-02 09:15] LABS: Calcium 9.7 mg/dl (8.4-10.2); Glucose 96 mg/dl (74-100)
[2020-10-02 09:45] LABS: Thyroid Stimulating Hormone 1.22 uIU/mL (0.465-4.68)
[2020-10-02 10:30] VITALS: BP 106/67; PULSE 100; RESP 18; TEMP 36.4; O2SAT 100
[2020-10-02 10:45] VITALS: BP 121/88; PULSE 92; RESP 18
[2020-10-02 11:08] VITALS: BP 121/69; PULSE 92; RESP 18
== END 2020-10-02 11:08 | disposition home or self-care (01) ==
LOC: INF 08:27
PROVIDERS: Visit Provider Internal Medicine Medical Oncology
DX: Z51.11 Encounter for antineoplastic chemotherapy (principal); C34.91 Malignant neoplasm of unspecified part of right bronchus or lung
CPT/HCPCS: 80053; 82024; 82533; 84443; 85025; 96413; J2405; J9299

== ENCOUNTER → 2020-10-05 10:25 | Outpatient (CLI) | payer OTHER, SELFPAY ==
--- NOTE | 2020-10-05 10:30 | MR_ITS ---
PROCEDURE: MR HEAD/BRAIN WO/W CON CLINICAL INDICATION: LUNG CA HX OF LUNG CANCER, HEADACHES. PRIOR MRI 7-1-19. 13ML PROHANCE INJECTED LOT:[id number] EXP:NOV 2022 TECHNIQUE: Routine multiplanar multi echo sequences are performed without gadolinium enhancement. FINDINGS: No midline shift, mass effect, intracranial hemorrhage, or hydrocephalus is evident. The cerebellopontine angles, cerebellum, midbrain, and brainstem have an unremarkable appearance. There is mild generalized atrophy with periventricular increased T2 signal consistent with ischemic gliotic change from microvascular disease. There is a small nodular area of increased T1 and increased T2 signal in the left occipital lobe. The central nodular area measures approximately 3-4 mm and is similar to the previous exam. There is now some peripheral areas of increased T2 signal around this nodule which has developed since the previous exam. There is a prominent draining vein along the lateral aspect of this nodule extending to the cortex of the occipital lobe.. There is no edema around this lesion. The central area shows intense increased signal on the coronal FLAIR images. As seen on the previous study there is minimal enhancement in the left frontal cortex on image 21 and may only be due to cortical vein. The pituitary, optic chiasm, corpus callosum, and craniocervical junction have an unremarkable appearance. No mastoid effusion or sinus air-fluid level. IMPRESSION: There is a persistent abnormal areas signal intensity in the left occipital lobe. This may represent a developmental venous anomaly or a small AVM. There is some new increased T1 and T2 signal around this nodule which could be due to some underlying hemorrhage. Catheter arteriogram may provide further evaluation. No convincing evidence of metastatic disease. Dictated by: Wenceslao White MD 10/09/2020 10:26 Wenceslao White MD in [facility] 10/09/2020 10:26
== END ==
PROVIDERS: PCP Family Medicine; Visit Provider Internal Medicine Medical Oncology
DX: R51.9 Headache, unspecified (principal); C34.90 Malignant neoplasm of unspecified part of unspecified bronchus or lung
CPT/HCPCS: 70553; A9576

== ENCOUNTER 2020-10-17 08:30 | Outpatient (CLI) | payer OTHER, SELFPAY ==
[2020-10-17 08:36] VITALS: BMI 19.2
[2020-10-17 09:04] LABS: Basophils % 0.4 % (0.1-2.0); Eosinophils # 0.1 K/mm3 (0.0-0.4); Hematocrit 43.5 % (42.0-52.0); Lymphocytes # 1.3 K/mm3 (0.7-4.5); Lymphocytes % 20.4 % (10-50); Mean Corpuscular HGB Conc 32.3 g/dL (31.8-35.4); Mean Corpuscular Volume 102.3 fl (80-94); Mean Platelet Volume 6.8 fl (7.4-10.4); Monocytes # 0.5 K/mm3 (0.1-1.0); Monocytes % 7.7 % (1.7-9.3); Neutrophils # 4.6 K/mm3 (1.8-7.8); Neutrophils % 69.5 % (37.0-80.0); Platelet Count 313 K/mm3 (142-424); Red Blood Count 4.25 M/mm3 (4.60-6.20); Red Cell Distribution Width 14.3 % (11.5-17.5); White Blood Count 6.5 K/mm3 (4.8-10.8)
[2020-10-17 09:06] LABS: Chloride 100 mmol/L (98-107); Potassium 3.9 mmoL/L (3.5-5.1); Sodium 139 mmol/L (136-145)
[2020-10-17 09:08] LABS: Alanine Aminotransferase 11 U/L (12-78); Blood Urea Nitrogen 9 mg/dl (9-20); Creatinine Clearance Estimated 65 mL/min (50-200); Estimated Glomerular Filt Rate 114 ml/min (>60); GFR (African American) 138 ML/MIN (>60)
[2020-10-17 09:09] LABS: Albumin Level 4.6 g/dl (3.5-5.0); Albumin/Globulin Ratio 1.5 (1.1-1.8); Alkaline Phosphatase 95 U/L (38-126); Anion Gap 9.9 mEq/L (5-15); Aspartate Amino Transferase 23 U/L (17-59); Bilirubin,Total 0.5 mg/dl (0.2-1.3); Calcium 9.8 mg/dl (8.4-10.2); Carbon Dioxide 33 mmol/L (22.0-30.0); Globulin 3.1 g/dL (1.3-3.2); Glucose 90 mg/dl (74-100); Total Protein,Serum 7.7 g/dl (6.3-8.2)
[2020-10-17 09:40] LABS: Thyroid Stimulating Hormone 1.06 uIU/mL (0.465-4.68)
[2020-10-17 09:50] VITALS: BP 135/70; PULSE 98; RESP 20; TEMP 36.7; O2SAT 100
[2020-10-17 10:05] VITALS: BP 121/68; PULSE 92; RESP 20
[2020-10-17 10:28] VITALS: BP 123/68; PULSE 92; RESP 20
[2020-10-18 14:48] LABS: Adrenocorticotropic Hormone 19.7 pg/mL (7.2-63.3)
== END 2020-10-17 10:28 | disposition home or self-care (01) ==
LOC: INF 08:34
PROVIDERS: Visit Provider Internal Medicine Medical Oncology
DX: Z51.11 Encounter for antineoplastic chemotherapy (principal); C34.90 Malignant neoplasm of unspecified part of unspecified bronchus or lung
CPT/HCPCS: 80053; 82024; 82533; 84443; 85025; 96413; J2405; J9299

== ENCOUNTER → 2020-10-23 08:47 | Outpatient (CLI) | payer OTHER, SELFPAY ==
--- NOTE | 2020-10-23 08:52 | CT_ITS ---
PROCEDURE: CT CHEST W CON CLINCAL INDICATION: HEADACHE, Follow-up lung cancer COMPARISON: CT CT CHEST W CON from 07/10/2020 TECHNIQUE: IV Contrast: 75ml Isovue 370 Axial images obtained with sagittal and coronal reformats. All CT scans at the facility use one or more dose reduction, viz: automated exposure control, ma/kV adjustment per patient size (including targeted exams where dose is matched to indication, i.e. head), or iterative reconstruction technique. FINDINGS: HEART AND MEDIASTINAL STRUCTURES: No mediastinal or hilar mass or adenopathy. There is thickening of the pericardium anteriorly measuring up to 1.9 cm which is increased from 1.3 cm compared to the previous exam. LUNGS AND PLEURAL SPACES: COPD with centrilobular emphysema and scattered areas of scarring are once again noted. There is evidence of old granulomatous disease. No suspicious nodules. No infiltrates or effusions. BONY STRUCTURES: No acute bony abnormalities apparent. UPPER ABDOMEN: Unremarkable. ADDITIONAL FINDINGS: Gynecomastia IMPRESSION: 1. Overall stable CT appearance of the chest with emphysema and scattered areas of scarring. 2. Slightly enlarging pericardial effusion Dictated by: Wenceslao White MD 10/24/2020 12:12 Wenceslao White MD in [facility] 10/24/2020 12:12
--- NOTE | 2020-10-23 08:52 | CT_ITS ---
PROCEDURE: CT ABDOMEN PELVIS W CON CLINICAL INDICATION: Follow-up lung cancer HEADACHE F/u lung cancer COMPARISON: CT CHW CT CHEST W/ CONTRAST from 09/14/[address] ABDOMEN PELVIS WO/W CON from 09/23/[address] ABDOMEN PELVIS W CON from 05/01/[address] ABDOMEN PELVIS W CON from 07/10/2020 TECHNIQUE: IV Contrast: 75ML Isovue 370 Oral Contrast None Axial images obtained with sagittal and coronal reformats. All CT scans at the facility use one or more dose reduction, viz: automated exposure control, ma/kV adjustment per patient size (including targeted exams where dose is matched to indication, i.e. head), or iterative reconstruction technique. FINDINGS: There are least 3 hypodense hepatic lesions suspicious for metastatic which have further decreased in size compared to the previous exam. The largest lesion in the right hepatic lobe measures 1.6 cm previously at 2.3 cm. There are couple of subcentimeter hypodensities in the left hepatic lobe and in the inferior tip of the right hepatic lobe which are possibly due to cyst. The spleen, adrenal glands, pancreas, and adrenal glands have an unremarkable appearance. Mildly prominent periportal lymph nodes are less apparent compared to the previous exam. There is increased soft tissue density in the retrocrural region on the right. This measures 2.9 by 1.2 cm and has not significantly changed and may only represent prominence of the diaphragmatic crura as opposed to retrocrural adenopathy not significantly changed dating back to 2 09/14/2016. No new areas of adenopathy are evident. No renal or ureteral calculi. No hydronephrosis. There is a mild amount of retained colonic feces. No intestinal obstruction or free air. No evidence of appendicitis or diverticulitis. Seminal vesicles are somewhat prominent but stable. There is mild thickening of the urinary bladder which is nonspecific and could be due to nondistention versus cystitis. No acute bony findings. Previously noted soft tissue thickening at the tip of the cecum is no longer apparent. IMPRESSION: 1. Continued decrease in size of liver lesions consistent with improvement in hepatic metastasis. 2. Prominent soft tissue density in the crural region on the right which may only be due to prominence of the diaphragmatic crura stable since 09/14/2016. 3. Mild thickening of the urinary bladder wall which may be due to nondistention or cystitis. Dictated by: Wenceslao White MD 10/24/2020 12:21 Wenceslao White MD in [facility] 10/24/2020 12:21
== END ==
PROVIDERS: PCP Family Medicine; Visit Provider Internal Medicine Medical Oncology
DX: C34.91 Malignant neoplasm of unspecified part of right bronchus or lung (principal); R51.0 Headache with orthostatic component, not elsewhere classified
CPT/HCPCS: 71260; 74177; Q9967

== ENCOUNTER 2020-10-30 08:24 | Outpatient (CLI) | payer OTHER, SELFPAY ==
[2020-10-30 08:26] VITALS: BMI 20.5
[2020-10-30 08:45] LABS: Basophils % 0.5 % (0.1-2.0); Eosinophils # 0.1 K/mm3 (0.0-0.4); Hematocrit 42.9 % (42.0-52.0); Hemoglobin 13.5 g/dL (14.1-18.0); Lymphocytes # 1.1 K/mm3 (0.7-4.5); Lymphocytes % 23.9 % (10-50); Mean Corpuscular HGB Conc 31.4 g/dL (31.8-35.4); Mean Corpuscular Hemoglobin 32.2 pg (27.0-31.2); Mean Corpuscular Volume 102.6 fl (80-94); Mean Platelet Volume 6.5 fl (7.4-10.4); Monocytes # 0.3 K/mm3 (0.1-1.0); Monocytes % 6.4 % (1.7-9.3); Neutrophils # 3.2 K/mm3 (1.8-7.8); Neutrophils % 67.1 % (37.0-80.0); Platelet Count 324 K/mm3 (142-424); Red Blood Count 4.18 M/mm3 (4.60-6.20); Red Cell Distribution Width 13.6 % (11.5-17.5); White Blood Count 4.8 K/mm3 (4.8-10.8)
[2020-10-30 08:46] LABS: Chloride 100 mmol/L (98-107); Sodium 137 mmol/L (136-145)
[2020-10-30 08:47] LABS: Potassium 3.9 mmoL/L (3.5-5.1)
[2020-10-30 08:49] LABS: Alanine Aminotransferase 13 U/L (12-78); Albumin Level 4.5 g/dl (3.5-5.0); Albumin/Globulin Ratio 1.4 (1.1-1.8); Alkaline Phosphatase 88 U/L (38-126); Anion Gap 8.9 mEq/L (5-15); Aspartate Amino Transferase 26 U/L (17-59); Bilirubin,Total 0.5 mg/dl (0.2-1.3); Blood Urea Nitrogen 8 mg/dl (9-20); Carbon Dioxide 32 mmol/L (22.0-30.0); Creatinine Clearance Estimated 69 mL/min (50-200); Estimated Glomerular Filt Rate 98 ml/min (>60); GFR (African American) 118 ML/MIN (>60); Globulin 3.2 g/dL (1.3-3.2); Total Protein,Serum 7.7 g/dl (6.3-8.2)
[2020-10-30 08:50] LABS: Calcium 9.6 mg/dl (8.4-10.2); Glucose 93 mg/dl (74-100)
[2020-10-30 09:21] LABS: Thyroid Stimulating Hormone 2.62 uIU/mL (0.465-4.68)
[2020-10-30 10:13] VITALS: BP 133/79; PULSE 86; RESP 20; TEMP 36.3; O2SAT 97
[2020-10-30 10:57] VITALS: BP 121/81; PULSE 87; RESP 20
[2020-10-31 19:33] LABS: Adrenocorticotropic Hormone 41.1 pg/mL (7.2-63.3)
== END 2020-10-30 10:57 | disposition home or self-care (01) ==
LOC: INF 08:24
PROVIDERS: Visit Provider Internal Medicine Medical Oncology
DX: Z51.11 Encounter for antineoplastic chemotherapy (principal); C34.90 Malignant neoplasm of unspecified part of unspecified bronchus or lung
CPT/HCPCS: 80053; 82024; 82533; 84443; 85025; 96413; J2405; J9299

== ENCOUNTER 2020-11-14 08:32 | Outpatient (CLI) | payer OTHER, SELFPAY ==
[2020-11-14 08:33] VITALS: BMI 19.5
[2020-11-14 08:58] LABS: Basophils % 0.3 % (0.1-2.0); Eosinophils # 0.1 K/mm3 (0.0-0.4); Eosinophils % 1.9 % (0.1-12.0); Hematocrit 42.2 % (42.0-52.0); Hemoglobin 14.3 g/dL (14.1-18.0); Lymphocytes # 1.2 K/mm3 (0.7-4.5); Lymphocytes % 19.3 % (10-50); Mean Corpuscular HGB Conc 33.9 g/dL (31.8-35.4); Mean Corpuscular Hemoglobin 33.5 pg (27.0-31.2); Mean Corpuscular Volume 98.7 fl (80-94); Mean Platelet Volume 7.7 fl (7.4-10.4); Monocytes # 0.5 K/mm3 (0.1-1.0); Monocytes % 7.6 % (1.7-9.3); Neutrophils # 4.4 K/mm3 (1.8-7.8); Neutrophils % 70.9 % (37.0-80.0); Platelet Count 329 K/mm3 (142-424); Red Blood Count 4.28 M/mm3 (4.60-6.20); White Blood Count 6.2 K/mm3 (4.8-10.8)
[2020-11-14 09:12] LABS: Chloride 100 mmol/L (98-107); Potassium 3.8 mmoL/L (3.5-5.1); Sodium 139 mmol/L (136-145)
[2020-11-14 09:14] LABS: Blood Urea Nitrogen 8 mg/dl (9-20)
[2020-11-14 09:15] LABS: Alanine Aminotransferase 12 U/L (12-78); Albumin Level 4.7 g/dl (3.5-5.0); Albumin/Globulin Ratio 1.4 (1.1-1.8); Alkaline Phosphatase 100 U/L (38-126); Anion Gap 12.8 mEq/L (5-15); Aspartate Amino Transferase 25 U/L (17-59); Bilirubin,Total 0.6 mg/dl (0.2-1.3); Carbon Dioxide 30 mmol/L (22.0-30.0); Creatinine Clearance Estimated 66 mL/min (50-200); Estimated Glomerular Filt Rate 114 ml/min (>60); GFR (African American) 138 ML/MIN (>60); Globulin 3.4 g/dL (1.3-3.2); Total Protein,Serum 8.1 g/dl (6.3-8.2)
[2020-11-14 09:16] LABS: Calcium 10.1 mg/dl (8.4-10.2); Glucose 113 mg/dl (74-100)
[2020-11-14 09:46] LABS: Thyroid Stimulating Hormone 1.48 uIU/mL (0.465-4.68)
[2020-11-14 10:00] VITALS: BP 142/74; PULSE 99; RESP 20; TEMP 36.4; O2SAT 100
[2020-11-14 10:15] VITALS: BP 131/81; PULSE 96; RESP 20
[2020-11-14 10:40] VITALS: BP 135/73; PULSE 97; RESP 20
[2020-11-15 14:21] LABS: Adrenocorticotropic Hormone 27.7 pg/mL (7.2-63.3)
== END 2020-11-14 10:40 | disposition home or self-care (01) ==
PROVIDERS: Visit Provider Internal Medicine Medical Oncology
DX: Z51.11 Encounter for antineoplastic chemotherapy (principal); C34.91 Malignant neoplasm of unspecified part of right bronchus or lung
CPT/HCPCS: 80053; 82024; 82533; 84443; 85025; 96413; J2405; J9299

== ENCOUNTER 2020-11-29 08:15 | Outpatient (CLI) | payer OTHER, SELFPAY ==
[2020-11-29 08:21] VITALS: BMI 19.5
[2020-11-29 08:35] LABS: Basophils % 0.4 % (0.1-2.0); Eosinophils # 0.2 K/mm3 (0.0-0.4); Eosinophils % 2.8 % (0.1-12.0); Hematocrit 40.5 % (42.0-52.0); Hemoglobin 13.8 g/dL (14.1-18.0); Lymphocytes # 1.6 K/mm3 (0.7-4.5); Lymphocytes % 25.9 % (10-50); Mean Corpuscular Hemoglobin 33.9 pg (27.0-31.2); Mean Corpuscular Volume 99.5 fl (80-94); Monocytes # 0.5 K/mm3 (0.1-1.0); Monocytes % 7.7 % (1.7-9.3); Neutrophils # 3.8 K/mm3 (1.8-7.8); Neutrophils % 63.1 % (37.0-80.0); Platelet Count 297 K/mm3 (142-424); Red Blood Count 4.07 M/mm3 (4.60-6.20)
[2020-11-29 08:54] LABS: Alanine Aminotransferase 12 U/L (12-78); Albumin Level 4.5 g/dl (3.5-5.0); Albumin/Globulin Ratio 1.5 (1.1-1.8); Alkaline Phosphatase 95 U/L (38-126); Aspartate Amino Transferase 30 U/L (17-59); Bilirubin,Total 0.5 mg/dl (0.2-1.3); Blood Urea Nitrogen 10 mg/dl (9-20); Calcium 9.8 mg/dl (8.4-10.2); Carbon Dioxide 31 mmol/L (22.0-30.0); Chloride 99 mmol/L (98-107); Creatinine Clearance Estimated 66 mL/min (50-200); Estimated Glomerular Filt Rate 114 ml/min (>60); GFR (African American) 138 ML/MIN (>60); Globulin 3.1 g/dL (1.3-3.2); Glucose 98 mg/dl (74-100); Sodium 137 mmol/L (136-145); Total Protein,Serum 7.6 g/dl (6.3-8.2)
[2020-11-29 09:26] LABS: Thyroid Stimulating Hormone 1.45 uIU/mL (0.465-4.68)
[2020-11-29 10:10] VITALS: BP 107/72; PULSE 99; RESP 20; TEMP 36.4; O2SAT 99
[2020-11-29 10:50] VITALS: BP 127/78; PULSE 98; RESP 18
[2020-11-30 17:47] LABS: Adrenocorticotropic Hormone 40.2 pg/mL (7.2-63.3)
== END 2020-11-29 10:50 | disposition home or self-care (01) ==
LOC: INF 08:18
PROVIDERS: Visit Provider Internal Medicine Medical Oncology
DX: Z51.11 Encounter for antineoplastic chemotherapy (principal); C34.90 Malignant neoplasm of unspecified part of unspecified bronchus or lung
CPT/HCPCS: 80053; 82024; 82533; 84443; 85025; 96413; J2405; J9299

== ENCOUNTER 2020-12-12 08:05 | Outpatient (CLI) | payer OTHER, SELFPAY ==
[2020-12-12 08:16] VITALS: BMI 19.2
[2020-12-12 08:35] LABS: Basophils % 0.4 % (0.1-2.0); Eosinophils # 0.1 K/mm3 (0.0-0.4); Eosinophils % 2.3 % (0.1-12.0); Hematocrit 43.7 % (42.0-52.0); Hemoglobin 14.2 g/dL (14.1-18.0); Lymphocytes # 1.3 K/mm3 (0.7-4.5); Lymphocytes % 24.1 % (10-50); Mean Corpuscular HGB Conc 32.6 g/dL (31.8-35.4); Mean Corpuscular Volume 101.3 fl (80-94); Mean Platelet Volume 7.3 fl (7.4-10.4); Monocytes # 0.4 K/mm3 (0.1-1.0); Neutrophils # 3.5 K/mm3 (1.8-7.8); Neutrophils % 65.2 % (37.0-80.0); Platelet Count 318 K/mm3 (142-424); Red Blood Count 4.32 M/mm3 (4.60-6.20); Red Cell Distribution Width 14.4 % (11.5-17.5); White Blood Count 5.3 K/mm3 (4.8-10.8)
[2020-12-12 08:42] LABS: Chloride 102 mmol/L (98-107); Sodium 140 mmol/L (136-145)
[2020-12-12 08:43] LABS: Potassium 3.8 mmoL/L (3.5-5.1)
[2020-12-12 08:45] LABS: Alanine Aminotransferase 11 U/L (12-78); Alkaline Phosphatase 99 U/L (38-126); Aspartate Amino Transferase 23 U/L (17-59); Bilirubin,Total 0.5 mg/dl (0.2-1.3); Blood Urea Nitrogen 9 mg/dl (9-20); Creatinine Clearance Estimated 65 mL/min (50-200); Estimated Glomerular Filt Rate 114 ml/min (>60); GFR (African American) 138 ML/MIN (>60)
[2020-12-12 08:46] LABS: Albumin Level 4.5 g/dl (3.5-5.0); Albumin/Globulin Ratio 1.4 (1.1-1.8); Anion Gap 11.8 mEq/L (5-15); Calcium 10.2 mg/dl (8.4-10.2); Carbon Dioxide 30 mmol/L (22.0-30.0); Globulin 3.2 g/dL (1.3-3.2); Glucose 100 mg/dl (74-100); Total Protein,Serum 7.7 g/dl (6.3-8.2)
[2020-12-12 09:17] LABS: Thyroid Stimulating Hormone 1.46 uIU/mL (0.465-4.68)
[2020-12-12 09:35] VITALS: BP 127/78; PULSE 99; RESP 20; TEMP 36.3; O2SAT 94
[2020-12-12 09:50] VITALS: BP 130/71; PULSE 97; RESP 20
[2020-12-12 10:20] VITALS: BP 112/69; PULSE 94; RESP 20
[2020-12-13 14:28] LABS: Adrenocorticotropic Hormone 34.3 pg/mL (7.2-63.3)
== END 2020-12-12 10:20 | disposition home or self-care (01) ==
LOC: INF 08:14
PROVIDERS: Visit Provider Internal Medicine Medical Oncology
DX: Z51.11 Encounter for antineoplastic chemotherapy (principal); C34.90 Malignant neoplasm of unspecified part of unspecified bronchus or lung
CPT/HCPCS: 80053; 82024; 82533; 84443; 85025; 96413; J2405; J9299

== ENCOUNTER 2020-12-27 09:55 | Outpatient (CLI) | payer OTHER, SELFPAY ==
[2020-12-27 09:58] VITALS: BMI 19.9
[2020-12-27 10:23] LABS: Chloride 103 mmol/L (98-107); Potassium 3.9 mmoL/L (3.5-5.1); Sodium 141 mmol/L (136-145)
[2020-12-27 10:26] LABS: Anion Gap 7.9 mEq/L (5-15); Blood Urea Nitrogen 14 mg/dl (9-20); Calcium 9.8 mg/dl (8.4-10.2); Carbon Dioxide 34 mmol/L (22.0-30.0); Creatinine Clearance Estimated 67 mL/min (50-200); Estimated Glomerular Filt Rate 98 ml/min (>60); GFR (African American) 118 ML/MIN (>60); Glucose 93 mg/dl (74-100)
[2020-12-27 10:36] LABS: Basophils % 0.6 % (0.1-2.0); Eosinophils # 0.2 K/mm3 (0.0-0.4); Eosinophils % 3.5 % (0.1-12.0); Hematocrit 41.9 % (42.0-52.0); Hemoglobin 13.6 g/dL (14.1-18.0); Lymphocytes # 1.5 K/mm3 (0.7-4.5); Lymphocytes % 26.8 % (10-50); Mean Corpuscular HGB Conc 32.4 g/dL (31.8-35.4); Mean Corpuscular Hemoglobin 32.9 pg (27.0-31.2); Mean Corpuscular Volume 101.6 fl (80-94); Mean Platelet Volume 6.9 fl (7.4-10.4); Monocytes # 0.5 K/mm3 (0.1-1.0); Monocytes % 8.1 % (1.7-9.3); Neutrophils # 3.4 K/mm3 (1.8-7.8); Platelet Count 265 K/mm3 (142-424); Red Blood Count 4.12 M/mm3 (4.60-6.20); Red Cell Distribution Width 13.6 % (11.5-17.5); White Blood Count 5.6 K/mm3 (4.8-10.8)
[2020-12-27 10:59] LABS: Thyroid Stimulating Hormone 0.96 uIU/mL (0.465-4.68)
[2020-12-27 11:35] VITALS: BP 126/75; PULSE 98; RESP 20; TEMP 36.6; O2SAT 100
[2020-12-27 12:25] VITALS: BP 147/78; PULSE 95; RESP 18
[2020-12-28 17:37] LABS: Adrenocorticotropic Hormone 36.6 pg/mL (7.2-63.3)
== END 2020-12-27 12:25 | disposition home or self-care (01) ==
LOC: INF 09:57
PROVIDERS: Visit Provider Internal Medicine Medical Oncology
DX: Z51.11 Encounter for antineoplastic chemotherapy (principal); C34.90 Malignant neoplasm of unspecified part of unspecified bronchus or lung; Z79.899 Other long term (current) drug therapy
CPT/HCPCS: 80048; 82024; 82533; 84443; 85025; 96413; J2405; J9299

== ENCOUNTER 2021-01-10 08:25 | Outpatient (CLI) | payer OTHER, SELFPAY ==
[2021-01-10 08:26] VITALS: BMI 19.9
[2021-01-10 08:48] LABS: Basophils % 0.3 % (0.1-2.0); Eosinophils # 0.1 K/mm3 (0.0-0.4); Eosinophils % 2.5 % (0.1-12.0); Hematocrit 42.4 % (42.0-52.0); Lymphocytes % 17.8 % (10-50); Mean Corpuscular Hemoglobin 32.7 pg (27.0-31.2); Mean Corpuscular Volume 98.9 fl (80-94); Mean Platelet Volume 7.3 fl (7.4-10.4); Monocytes # 0.4 K/mm3 (0.1-1.0); Monocytes % 6.5 % (1.7-9.3); Neutrophils # 4.1 K/mm3 (1.8-7.8); Neutrophils % 72.8 % (37.0-80.0); Platelet Count 325 K/mm3 (142-424); Red Blood Count 4.28 M/mm3 (4.60-6.20); Red Cell Distribution Width 13.3 % (11.5-17.5); White Blood Count 5.6 K/mm3 (4.8-10.8)
[2021-01-10 09:22] LABS: Alanine Aminotransferase 12 U/L (12-78); Albumin Level 4.6 g/dl (3.5-5.0); Albumin/Globulin Ratio 1.5 (1.1-1.8); Alkaline Phosphatase 88 U/L (38-126); Anion Gap 13.3 mEq/L (5-15); Aspartate Amino Transferase 26 U/L (17-59); Bilirubin,Total 0.5 mg/dl (0.2-1.3); Blood Urea Nitrogen 9 mg/dl (9-20); Calcium 9.8 mg/dl (8.4-10.2); Carbon Dioxide 28 mmol/L (22.0-30.0); Chloride 103 mmol/L (98-107); Creatinine Clearance Estimated 67 mL/min (50-200); Estimated Glomerular Filt Rate 114 ml/min (>60); GFR (African American) 138 ML/MIN (>60); Globulin 3.1 g/dL (1.3-3.2); Glucose 110 mg/dl (74-100); Potassium 4.3 mmoL/L (3.5-5.1); Sodium 140 mmol/L (136-145); Total Protein,Serum 7.7 g/dl (6.3-8.2)
[2021-01-10 10:15] VITALS: BP 103/71; PULSE 104; RESP 18; TEMP 36.1; O2SAT 99
[2021-01-10 10:55] VITALS: BP 127/82; PULSE 97; RESP 18
[2021-01-11 14:43] LABS: Adrenocorticotropic Hormone 19.2 pg/mL (7.2-63.3)
== END 2021-01-10 10:55 | disposition home or self-care (01) ==
LOC: INF 08:25
PROVIDERS: Visit Provider Internal Medicine Medical Oncology
DX: Z51.11 Encounter for antineoplastic chemotherapy (principal); C34.90 Malignant neoplasm of unspecified part of unspecified bronchus or lung
CPT/HCPCS: 80053; 82024; 82533; 84443; 85025; 96413; J2405; J9299

== ENCOUNTER → 2021-01-21 08:49 | Outpatient (CLI) | payer OTHER, SELFPAY ==
--- NOTE | 2021-01-21 08:54 | CT_ITS ---
PROCEDURE: CT CHEST W CON CLINCAL INDICATION: LUNG CA Follow up, no treatments at this time COMPARISON: CT LUNGSCREEN CT lung screening from 12/08/[address] CHEST WO/W CON from 09/23/[address] ABDOMEN PELVIS W CON from 01/16/[address] CHEST W CON from 10/23/2020 TECHNIQUE: IV Contrast: 75ml Isovue 370 Axial images obtained with sagittal and coronal reformats. All CT scans at the facility use one or more dose reduction, viz: automated exposure control, ma/kV adjustment per patient size (including targeted exams where dose is matched to indication, i.e. head), or iterative reconstruction technique. FINDINGS: HEART AND MEDIASTINAL STRUCTURES: No mediastinal or hilar mass or adenopathy. There is minimal thickening of the pericardium anteriorly. The pericardial thickening has somewhat improved compared to the previous exam. LUNGS AND PLEURAL SPACES: Centrilobular emphysema with scattered areas of scarring. Increasing atelectatic or fibrotic changes are present in the right upper lobe medially. Has the patient had prior radiation therapy? These changes could be seen with radiation fibrosis. No central obstructing lesion is evident. No suspicious nodules are evident. No effusions or infiltrates. There is a nodular opacity in the right upper lobe medially adjacent to the atelectatic change and may represent an area of developing fibrosis. This measures 9 mm somewhat more prominent from the previous exam. No acute bony findings. IMPRESSION: Centrilobular emphysema with COPD and scattered areas of scarring. Increasing atelectatic or fibrotic changes are present in the right upper lobe medially. Has the patient had prior radiation to this region?. Nodular opacity is present along the medial aspect of this area of fibrosis abutting the anterior mediastinum on the right and may only be related to an area of scarring. Continued follow-up suggested to confirm stability. Dictated by: Wenceslao White MD 01/22/2021 10:44 Wenceslao White MD in [facility] 01/22/2021 10:44
--- NOTE | 2021-01-21 08:54 | CT_ITS ---
PROCEDURE: CT ABDOMEN PELVIS W CON CLINICAL INDICATION: LUNG CA Follow up, no treatments at this time Prior on pacs COMPARISON: CT CT ABDOMEN PELVIS W CON from 05/01/[address] ABDOMEN PELVIS W CON from 10/23/2020 TECHNIQUE: IV Contrast: 75ML Isovue 370 Oral Contrast None Axial images obtained with sagittal and coronal reformats. All CT scans at the facility use one or more dose reduction, viz: automated exposure control, ma/kV adjustment per patient size (including targeted exams where dose is matched to indication, i.e. head), or iterative reconstruction technique. FINDINGS: At least 3 hypodense of the right hepatic lobe are once again noted not significantly changed. The largest is in segment 7 measuring 10 mm. No new lesions apparent. The spleen, adrenal glands, pancreas, and kidneys have an unremarkable appearance. There is a moderate amount of retained colonic feces. No intestinal obstruction or free air. No evidence of appendicitis or diverticulitis. Previously noted increased soft tissue density in the retrocrural region on the right not significantly changed. No new abnormalities are evident. No acute bony findings. Remains mild prominence of the seminal vesicles and minimal thickening of the urinary bladder nonspecific. IMPRESSION: Stable CT appearance of the abdomen and pelvis. No change in the treated liver lesions. Dictated by: Wenceslao White MD 01/22/2021 11:54 Wenceslao White MD in [facility] 01/22/2021 11:54
== END ==
PROVIDERS: PCP Family Medicine; Visit Provider Internal Medicine Medical Oncology
DX: C34.90 Malignant neoplasm of unspecified part of unspecified bronchus or lung (principal)
CPT/HCPCS: 71260; 74177; Q9967

== ENCOUNTER 2021-02-26 11:16 | Outpatient (CLI) | payer OTHER, SELFPAY ==
[2021-02-26 11:17] VITALS: BMI 19.6
[2021-02-26 11:35] LABS: Basophils % 0.5 % (0.1-2.0); Eosinophils # 0.1 K/mm3 (0.0-0.4); Eosinophils % 2.6 % (0.1-12.0); Hematocrit 43.3 % (42.0-52.0); Hemoglobin 14.2 g/dL (14.1-18.0); Lymphocytes # 1.4 K/mm3 (0.7-4.5); Lymphocytes % 24.8 % (10-50); Mean Corpuscular HGB Conc 32.8 g/dL (31.8-35.4); Mean Corpuscular Volume 97.8 fl (80-94); Mean Platelet Volume 7.1 fl (7.4-10.4); Monocytes # 0.4 K/mm3 (0.1-1.0); Monocytes % 6.7 % (1.7-9.3); Neutrophils # 3.6 K/mm3 (1.8-7.8); Neutrophils % 65.4 % (37.0-80.0); Platelet Count 278 K/mm3 (142-424); Red Blood Count 4.43 M/mm3 (4.60-6.20); Red Cell Distribution Width 13.4 % (11.5-17.5); White Blood Count 5.4 K/mm3 (4.8-10.8)
[2021-02-26 11:46] LABS: Chloride 102 mmol/L (98-107); Potassium 4.7 mmoL/L (3.5-5.1); Sodium 138 mmol/L (136-145)
[2021-02-26 11:48] LABS: Alanine Aminotransferase 11 U/L (12-78); Blood Urea Nitrogen 11 mg/dl (9-20); Creatinine Clearance Estimated 66 mL/min (50-200); Estimated Glomerular Filt Rate 114 ml/min (>60); GFR (African American) 138 ML/MIN (>60)
[2021-02-26 11:49] LABS: Albumin Level 4.5 g/dl (3.5-5.0); Albumin/Globulin Ratio 1.6 (1.1-1.8); Alkaline Phosphatase 87 U/L (38-126); Anion Gap 12.7 mEq/L (5-15); Aspartate Amino Transferase 23 U/L (17-59); Bilirubin,Total 0.5 mg/dl (0.2-1.3); Carbon Dioxide 28 mmol/L (22.0-30.0); Globulin 2.8 g/dL (1.3-3.2); Glucose 109 mg/dl (74-100); Total Protein,Serum 7.3 g/dl (6.3-8.2)
--- NOTE | 2021-02-26 15:05 | PC.NURSE ---
Addendum entered by Levi Del Toro RN 02/26/21 15:07: 02/26/21 1125 Original Note: pt here today for blood to be drawn for labs as ordered per md prior to ct scan and md appt in 1 week. lab staff contacted to obtain labs. Sulaiman at pt's chairside to draw blood for labs.
== END 2021-02-26 11:35 | disposition home or self-care (01) ==
LOC: INF 11:16
PROVIDERS: PCP Internal Medicine Medical Oncology; Visit Provider Internal Medicine Medical Oncology
DX: C34.90 Malignant neoplasm of unspecified part of unspecified bronchus or lung (principal)
CPT/HCPCS: 80053; 85025

== ENCOUNTER → 2021-03-06 10:16 | Outpatient (CLI) | payer OTHER, SELFPAY ==
--- NOTE | 2021-03-06 10:19 | CT_ITS ---
PROCEDURE: CT ABDOMEN PELVIS W CON CLINICAL INDICATION: LUNG CA Follow-up lung cancer COMPARISON: CT CHW CT CHEST W/ CONTRAST from 09/14/2016 CT LDCTLCAS LDCT FOR LUNG CA SCREEN from 08/27/[address] ABDOMEN PELVIS W CON from 01/21/2021 TECHNIQUE: IV Contrast: 75ML Isovue 370 Oral Contrast 450ml Redicat Axial images obtained with sagittal and coronal reformats. All CT scans at the facility use one or more dose reduction, viz: automated exposure control, ma/kV adjustment per patient size (including targeted exams where dose is matched to indication, i.e. head), or iterative reconstruction technique. FINDINGS: LOWER THORAX: No acute finding ABDOMEN & PELVIS: Hypodense lesions are once again noted in the right hepatic lobe as previously described the largest in the superior aspect of the right hepatic lobe medially measuring 10 mm not significantly changed. No new lesions are evident. The spleen, adrenal glands, pancreas, and kidneys are unremarkable. There is chronic prominence of the right carly of the hemidiaphragm as a normal variant. No intestinal obstruction or free air. No evidence of appendicitis or diverticulitis. The prostate is slightly enlarged at 4 cm. Seminal vesicles are also mildly prominent not significantly changed. Mild thickening of the urinary bladder wall nonspecific. No pelvic mass or abnormal fluid collection is evident. No acute bony anomalies. IMPRESSION: Stable CT appearance of the abdomen and pelvis.. No change small hypodense hepatic lesions consistent with treated metastasis Dictated by: Wenceslao White MD 03/06/2021 14:29 Wenceslao White MD in [facility] 03/06/2021 14:29
--- NOTE | 2021-03-06 10:19 | CT_ITS ---
PROCEDURE: CT CHEST W CON CLINCAL INDICATION: LUNG CA Follow-up lung cancer COMPARISON: CT CT CHEST W CON from 01/21/2021 TECHNIQUE: IV Contrast: 75ml Isovue 370 Axial images obtained with sagittal and coronal reformats. All CT scans at the facility use one or more dose reduction, viz: automated exposure control, ma/kV adjustment per patient size (including targeted exams where dose is matched to indication, i.e. head), or iterative reconstruction technique. FINDINGS: HEART AND MEDIASTINAL STRUCTURES: No mediastinal or hilar mass or adenopathy. Coronary artery calcifications are present. There is minimal thickening of the pericardium anteriorly and centrally not significantly changed. No evidence of aortic aneurysm or dissection. No evidence central pulmonary embolus. LUNGS AND PLEURAL SPACES: COPD with centrilobular emphysema and scattered areas of scarring as before. Atelectatic and/or fibrotic changes are once again noted in the right upper lobe medially. The previously described nodular opacity in the right upper lobe medially is less apparent on today's exam and may have been due to an area atelectasis. There is mild bronchial thickening in the right perihilar region as before. Calcified granuloma is present in the left lower lobe. No new suspicious nodules are evident. No areas of consolidation. BONY STRUCTURES: No acute bony abnormalities apparent. UPPER ABDOMEN: See abdomen report ADDITIONAL FINDINGS: No other significant abnormalities. IMPRESSION: COPD with centrilobular emphysema. There is bronchial thickening in the right perihilar region with mild atelectatic or fibrotic change in the right upper lobe. These findings may be related to post radiation fibrotic change. Nodular density in the right upper lobe medially previously seen is less apparent and may have been due to an area of atelectasis. No suspicious nodules apparent. Dictated by: Wenceslao White MD 03/06/2021 14:20 Wenceslao Whiet MD in [facility] 03/06/2021 14:20
== END ==
PROVIDERS: PCP Family Medicine; Visit Provider Internal Medicine Medical Oncology
DX: C34.91 Malignant neoplasm of unspecified part of right bronchus or lung (principal)
CPT/HCPCS: 71260; 74177; Q9967

== ENCOUNTER 2021-04-29 08:24 | Outpatient (CLI) | payer OTHER, SELFPAY ==
[2021-04-29 08:11] VITALS: BMI 18.6
[2021-04-29 08:29] LABS: Basophils % 0.5 % (0.1-2.0); Eosinophils # 0.1 K/mm3 (0.0-0.4); Eosinophils % 2.8 % (0.1-12.0); Hematocrit 39.8 % (42.0-52.0); Hemoglobin 13.2 g/dL (14.1-18.0); Lymphocytes # 1.2 K/mm3 (0.7-4.5); Lymphocytes % 23.1 % (10-50); Mean Corpuscular HGB Conc 33.1 g/dL (31.8-35.4); Mean Corpuscular Hemoglobin 32.7 pg (27.0-31.2); Mean Corpuscular Volume 98.8 fl (80-94); Mean Platelet Volume 7.5 fl (7.4-10.4); Monocytes # 0.4 K/mm3 (0.1-1.0); Monocytes % 8.3 % (1.7-9.3); Neutrophils # 3.4 K/mm3 (1.8-7.8); Neutrophils % 65.3 % (37.0-80.0); Platelet Count 268 K/mm3 (142-424); Red Blood Count 4.02 M/mm3 (4.60-6.20); Red Cell Distribution Width 13.4 % (11.5-17.5); White Blood Count 5.1 K/mm3 (4.8-10.8)
[2021-04-29 08:31] LABS: Chloride 102 mmol/L (98-107); Potassium 3.9 mmoL/L (3.5-5.1); Sodium 139 mmol/L (136-145)
[2021-04-29 08:34] LABS: Alanine Aminotransferase 11 U/L (12-78); Albumin Level 4.5 g/dl (3.5-5.0); Albumin/Globulin Ratio 1.7 (1.1-1.8); Alkaline Phosphatase 78 U/L (38-126); Anion Gap 11.9 mEq/L (5-15); Aspartate Amino Transferase 26 U/L (17-59); Bilirubin,Total 0.5 mg/dl (0.2-1.3); Blood Urea Nitrogen 12 mg/dl (9-20); Carbon Dioxide 29 mmol/L (22.0-30.0); Creatinine Clearance Estimated 63 mL/min (50-200); Estimated Glomerular Filt Rate 114 ml/min (>60); GFR (African American) 138 ML/MIN (>60); Globulin 2.7 g/dL (1.3-3.2); Glucose 90 mg/dl (74-100); Total Protein,Serum 7.2 g/dl (6.3-8.2)
--- NOTE | 2021-04-29 08:46 | CT_ITS ---
PROCEDURE: CT ABDOMEN PELVIS W CON CLINICAL INDICATION: LUNG CA Follow-up lung cancer COMPARISON: CT CT ABDOMEN PELVIS WO/W CON from 09/23/[address] ABDOMEN PELVIS W CON from 07/10/[address] ABDOMEN PELVIS W CON from 03/06/2021 TECHNIQUE: IV Contrast: 75ML Isovue 370 Oral Contrast None Axial images obtained with sagittal and coronal reformats. All CT scans at the facility use one or more dose reduction, viz: automated exposure control, ma/kV adjustment per patient size (including targeted exams where dose is matched to indication, i.e. head), or iterative reconstruction technique. FINDINGS: Hypodensities once again noted in the right hepatic lobe not significantly changed. No new lesions are evident. The spleen, adrenal glands, pancreas, and kidneys have an unremarkable appearance. There are 2 small right renal cyst. No intestinal obstruction or free air. No evidence of appendicitis. No evidence of diverticulitis. No pelvic or abdominal mass. Enlarged prostate once again noted no lytic or blastic changes apparent. Probable small bone island left femoral head.. IMPRESSION: Stable CT appearance of the abdomen and pelvis. No change small hypodense hepatic lesions which may be due to treated metastatic foci. Dictated by: Wenceslao White MD 04/29/2021 15:05 Wenceslao White MD in [facility] 04/29/2021 15:05
--- NOTE | 2021-04-29 08:46 | CT_ITS ---
PROCEDURE: CT CHEST W CON CLINCAL INDICATION: LUNG CA Follow-up lung cancer COMPARISON: CT LUNGSCREEN CT lung screening from 12/08/[address] chest wo con from 03/08/[address] CHEST W CON from 05/01/[address] CHEST W CON from 03/06/2021 TECHNIQUE: IV Contrast: 75ml Isovue 370 Axial images obtained with sagittal and coronal reformats. All CT scans at the facility use one or more dose reduction, viz: automated exposure control, ma/kV adjustment per patient size (including targeted exams where dose is matched to indication, i.e. head), or iterative reconstruction technique. FINDINGS: HEART AND MEDIASTINAL STRUCTURES: No mediastinal or hilar mass or adenopathy. Slight increased soft tissue density in the right hilum at the proximal aspect of the right upper lobe bronchus also with mild central bronchial thickening overall not significantly changed. No enlarged lymph nodes. There is some minimal pericardial thickening anteriorly similar to the previous exam. LUNGS AND PLEURAL SPACES: COPD with diffuse centrilobular emphysema and scattered areas of scarring. No evidence of recurrence right upper lobe nodule the prominence of the perihilar interstitial markings with fibrotic changes in the right upper lobe unchanged. There is a new 6 mm parenchymal opacity in the right lung base which abuts the hemidiaphragm and could be due to an area of subpleural atelectasis. A new small linear opacity is present in the right lower lobe posteriorly at approximately 1 x 0.3 cm and could be due to an area of atelectasis or scarring. There is some scarring in the lingula. Calcified granuloma is present in the left lower lobe. BONY STRUCTURES: No acute bony abnormalities apparent. UPPER ABDOMEN: Unremarkable. ADDITIONAL FINDINGS: No other significant abnormalities. IMPRESSION: COPD with centrilobular emphysema. Scattered areas of scarring. Bronchial thickening in the right perihilar region with mild prominence of the interstitium in this area which could be related to radiation fibrosis. No evidence of recurrence right perihilar nodule. 6 mm nodule right lung base along the hemidiaphragm possibly due to an area of atelectasis or scarring. Three month short-term follow-up suggested for confirmation and to confirm stability. Dictated by: Wenceslao White MD 04/29/2021 14:26 Wenceslao White MD in [facility] 04/29/2021 14:26
[2021-04-29 09:05] LABS: Thyroid Stimulating Hormone 1.35 uIU/mL (0.465-4.68)
[2021-04-30 16:05] LABS: Adrenocorticotropic Hormone 28.7 pg/mL (7.2-63.3)
== END 2021-04-29 08:25 | disposition home or self-care (01) ==
LOC: RAD 08:24
PROVIDERS: PCP Family Medicine; Visit Provider Internal Medicine Medical Oncology
DX: C34.90 Malignant neoplasm of unspecified part of unspecified bronchus or lung (principal)
CPT/HCPCS: 71260; 74177; 80053; 82024; 82533; 84443; 85025; Q9967

== ENCOUNTER → 2021-05-30 14:00 | Outpatient (CLI) | payer OTHER, SELFPAY ==
--- NOTE | 2021-05-30 14:06 | XR_ITS ---
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 The inner and outer table of the calvarium is within normal limits. The visualized paranasal sinuses and mastoid air cells are clear. Incidental note is made of occipital horn, likely developmental. No significant soft tissue abnormality is noted. IMPRESSION: Few focal small lucencies noted in the right parietal bone, concerning for lytic lesions. In view of history of lung cancer, nuclear medicine bone scan should be considered. Dictated by: Jeannette Chadwick 05/30/2021 15:48 Jeannette Chadwick in [facility] 05/30/2021 15:48
== END ==
PROVIDERS: PCP Family Medicine; Visit Provider Family Medicine
DX: M89.9 Disorder of bone, unspecified (principal); C34.11 Malignant neoplasm of upper lobe, right bronchus or lung
CPT/HCPCS: 70260

== ENCOUNTER → 2021-06-10 08:51 | Outpatient (CLI) | payer OTHER, SELFPAY ==
--- NOTE | 2021-06-10 08:54 | NM_ITS ---
PROCEDURE: NM BONE SCAN WHOLE BODY CLINICAL INDICATION: SMALL CELL CARCINOMA OF UPPER LOBE OF RT LUNG COMPARISON: No exams were available for comparison FINDINGS: Dose: 27.2 mCi technetium MDP Anterior and posterior images are obtained of the entire skeleton. No areas of hyperactivity or decreased activity within the bony structures. IMPRESSION: Unremarkable whole body bone scan. No evidence of metastatic disease. Dictated by: Wenceslao White MD 06/10/2021 13:45 Wenceslao White MD in [facility] 06/10/2021 13:45
--- NOTE | 2021-06-10 09:07 | HMH.ITSHM ---
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 []PROCHLORPERAZINE ONDANSETRON LOSARTAN FLUTICASONE FAMOTIDINE DULOXETINE CYCLOBENZAPRINE ATORVASTATIN CLOPIDOGREL ALBUTEROL
== END ==
PROVIDERS: PCP Family Medicine; Visit Provider Family Medicine
DX: C34.11 Malignant neoplasm of upper lobe, right bronchus or lung (principal)
CPT/HCPCS: 78306; A9503

== ENCOUNTER → 2021-07-17 13:35 | Outpatient (CLI) | payer OTHER, SELFPAY ==
[2021-07-17 14:23] LABS: Basophils % 0.6 % (0.1-2.0); Eosinophils # 0.2 K/mm3 (0.0-0.4); Eosinophils % 2.9 % (0.1-12.0); Hematocrit 43.8 % (42.0-52.0); Hemoglobin 14.3 g/dL (14.1-18.0); Lymphocytes # 1.5 K/mm3 (0.7-4.5); Lymphocytes % 19.8 % (10-50); Mean Corpuscular HGB Conc 32.6 g/dL (31.8-35.4); Mean Corpuscular Hemoglobin 33.5 pg (27.0-31.2); Mean Corpuscular Volume 102.7 fl (80-94); Mean Platelet Volume 7.8 fl (7.4-10.4); Monocytes # 0.5 K/mm3 (0.1-1.0); Monocytes % 7.3 % (1.7-9.3); Neutrophils # 5.1 K/mm3 (1.8-7.8); Neutrophils % 69.4 % (37.0-80.0); Platelet Count 325 K/mm3 (142-424); Red Blood Count 4.27 M/mm3 (4.60-6.20); Red Cell Distribution Width 13.6 % (11.5-17.5); White Blood Count 7.4 K/mm3 (4.8-10.8)
[2021-07-17 15:26] LABS: Alanine Aminotransferase 10 U/L (12-78); Albumin Level 4.5 g/dl (3.5-5.0); Albumin/Globulin Ratio 1.6 (1.1-1.8); Alkaline Phosphatase 92 U/L (38-126); Anion Gap 16.5 mEq/L (5-15); Aspartate Amino Transferase 22 U/L (17-59); Bilirubin,Total 0.3 mg/dl (0.2-1.3); Blood Urea Nitrogen 10 mg/dl (9-20); Calcium 9.2 mg/dl (8.4-10.2); Carbon Dioxide 30 mmol/L (22.0-30.0); Chloride 99 mmol/L (98-107); Estimated Glomerular Filt Rate 136 ml/min (>60); GFR (African American) 164 ML/MIN (>60); Globulin 2.8 g/dL (1.3-3.2); Glucose 101 mg/dl (74-100); Potassium 4.5 mmoL/L (3.5-5.1); Sodium 141 mmol/L (136-145); Total Protein,Serum 7.3 g/dl (6.3-8.2)
== END ==
PROVIDERS: Visit Provider Internal Medicine Medical Oncology
DX: R51.0 Headache with orthostatic component, not elsewhere classified (principal); C34.91 Malignant neoplasm of unspecified part of right bronchus or lung
CPT/HCPCS: 36415; 80053; 85025

== ENCOUNTER → 2021-07-18 08:37 | Outpatient (CLI) | payer OTHER, SELFPAY ==
--- NOTE | 2021-07-18 08:45 | CT_ITS ---
PROCEDURE: CT CHEST W CON CLINCAL INDICATION: LUNG CA Pulmonary nodule follow-up, lung cancer follow up COMPARISON: CT CHW CT CHEST W/ CONTRAST from 09/14/[address] CHEST W CON from 04/29/2021 TECHNIQUE: IV Contrast: 75ml Isovue 370 Axial images obtained with sagittal and coronal reformats. All CT scans at the facility use one or more dose reduction, viz: automated exposure control, ma/kV adjustment per patient size (including targeted exams where dose is matched to indication, i.e. head), or iterative reconstruction technique. FINDINGS: HEART AND MEDIASTINAL STRUCTURES: No mediastinal or hilar adenopathy. There is 50 percent stenosis involving the ostium of the left subclavian artery. No evidence of aortic aneurysm or central pulmonary embolus. LUNGS AND PLEURAL SPACES: Right-sided perihilar bronchial thickening once again noted. COPD with centrilobular emphysema. Scarring is present in the right upper lobe as before. Right perihilar scarring noted. There has been interval development of an area of parenchymal opacification in the subpleural region of the right lower lobe laterally and posteriorly. This area measures 3.7 cm transverse and 2 cm AP. This was not present previously. This areas composed a spiculated nodular opacity which measures 14 mm along the medial aspect of this region. Just lateral to this there are air densities which may represent bronchiectasis. Just lateral to this region is a more solid area parenchymal opacification measuring approximately 2 cm. This could be inflammatory/infectious or neoplastic. The previously noted small nodular opacity in the extreme right lung base is smaller at approximately 4 mm. Calcified granuloma is present in the left lower lobe BONY STRUCTURES: Old left-sided rib fractures UPPER ABDOMEN: Unremarkable. ADDITIONAL FINDINGS: No other significant abnormalities. IMPRESSION: 1. There is a new peripheral parenchymal opacity in the right lower lobe posterior laterally as described above. This contains a spiculated component medially with an area of bronchiectasis or cavitation slightly more lateral and then and area of apparent consolidation more lateral. This could represent a neoplastic process such as primary or metastatic lung cancer. Post inflammatory/infectious process is also consideration. Consider pulmonology consult. 2. COPD with centrilobular emphysema and scattered areas of scarring. 3. Previously noted nodular opacity in the extreme right lung base is less apparent. Dictated by: Wenceslao White MD 07/19/2021 10:58 Wenceslao White MD in [facility] 07/19/2021 10:58
--- NOTE | 2021-07-18 08:45 | CT_ITS ---
PROCEDURE: CT ABDOMEN PELVIS W CON CLINICAL INDICATION: LUNG CA COMPARISON: CT CT ABDOMEN PELVIS W CON from 07/10/[address] ABDOMEN PELVIS W CON from 04/29/[address] CHEST W CON from 07/18/2021 TECHNIQUE: IV Contrast: 75ML Isovue 370 Oral Contrast None Axial images obtained with sagittal and coronal reformats. All CT scans at the facility use one or more dose reduction, viz: automated exposure control, ma/kV adjustment per patient size (including targeted exams where dose is matched to indication, i.e. head), or iterative reconstruction technique. FINDINGS: 9 mm hypodensity is present in the right hepatic lobe superiorly and posteriorly segment 7. An additional hypodense lesion is present in the inferior aspect of the right hepatic lobe segment 6 at 6 mm. These do not appear significantly changed. No new liver lesions evident. The gallbladder, spleen, adrenal glands, and pancreas have an unremarkable appearance. Kidneys are also unremarkable aside from a small right renal cyst. There is a mild amount of retained colonic feces. There are few small mesenteric lymph nodes not significantly changed.. No acute bony findings. IMPRESSION: Stable CT appearance of the abdomen. No change in the small hypodense lesions of the liver which may be due to treated metastasis. Dictated by: Wenceslao White MD 07/19/2021 11:26 Wenceslao White MD in [facility] 07/19/2021 11:26
== END ==
PROVIDERS: PCP Family Medicine; Visit Provider Internal Medicine Medical Oncology
DX: C34.90 Malignant neoplasm of unspecified part of unspecified bronchus or lung (principal)
CPT/HCPCS: 71260; 74177; Q9967

== ENCOUNTER 2021-08-01 08:28 | Outpatient (CLI) | payer OTHER, SELFPAY ==
[2021-08-01 08:32] VITALS: BMI 18.3
[2021-08-01 08:58] LABS: Basophils # 0.1 K/mm3 (0-0.2); Eosinophils # 0.3 K/mm3 (0.0-0.4); Eosinophils % 6.2 % (0.1-12.0); Hematocrit 43.6 % (42.0-52.0); Hemoglobin 14.1 g/dL (14.1-18.0); Lymphocytes # 0.8 K/mm3 (0.7-4.5); Lymphocytes % 17.5 % (10-50); Mean Corpuscular HGB Conc 32.3 g/dL (31.8-35.4); Mean Corpuscular Hemoglobin 33.6 pg (27.0-31.2); Mean Corpuscular Volume 104.2 fl (80-94); Mean Platelet Volume 7.7 fl (7.4-10.4); Monocytes # 0.5 K/mm3 (0.1-1.0); Monocytes % 10.6 % (1.7-9.3); Neutrophils % 64.6 % (37.0-80.0); Platelet Count 349 K/mm3 (142-424); Red Blood Count 4.19 M/mm3 (4.60-6.20); Red Cell Distribution Width 13.5 % (11.5-17.5); White Blood Count 4.6 K/mm3 (4.8-10.8)
[2021-08-01 09:02] LABS: Chloride 99 mmol/L (98-107); Sodium 138 mmol/L (136-145)
[2021-08-01 09:03] LABS: Potassium 3.9 mmoL/L (3.5-5.1)
[2021-08-01 09:05] LABS: Alanine Aminotransferase 12 U/L (12-78); Albumin Level 4.2 g/dl (3.5-5.0); Albumin/Globulin Ratio 1.4 (1.1-1.8); Alkaline Phosphatase 96 U/L (38-126); Anion Gap 12.9 mEq/L (5-15); Aspartate Amino Transferase 24 U/L (17-59); Bilirubin,Total 0.3 mg/dl (0.2-1.3); Blood Urea Nitrogen 9 mg/dl (9-20); Carbon Dioxide 30 mmol/L (22.0-30.0); Creatinine Clearance Estimated 61 mL/min (50-200); Estimated Glomerular Filt Rate 136 ml/min (>60); GFR (African American) 164 ML/MIN (>60); Total Protein,Serum 7.2 g/dl (6.3-8.2)
[2021-08-01 09:06] LABS: Calcium 9.1 mg/dl (8.4-10.2); Glucose 96 mg/dl (74-100)
[2021-08-01 09:36] LABS: Thyroid Stimulating Hormone 1.59 uIU/mL (0.465-4.68)
[2021-08-01 09:57] VITALS: BP 119/62; PULSE 89; RESP 20; O2SAT 100
[2021-08-01 10:20] VITALS: BP 113/81; PULSE 98; RESP 20
[2021-08-01 10:43] VITALS: BP 99/59; PULSE 87; RESP 20
[2021-08-02 19:52] LABS: Adrenocorticotropic Hormone 39.8 pg/mL (7.2-63.3)
== END 2021-08-01 10:43 | disposition home or self-care (01) ==
LOC: INF 08:28
PROVIDERS: PCP Family Medicine; Visit Provider Internal Medicine Medical Oncology
DX: Z51.11 Encounter for antineoplastic chemotherapy (principal); C34.91 Malignant neoplasm of unspecified part of right bronchus or lung
CPT/HCPCS: 80053; 82024; 82533; 84443; 85025; 96413; J2405; J9299

== ENCOUNTER 2021-08-15 08:23 | Outpatient (CLI) | payer OTHER, SELFPAY ==
[2021-08-15 08:28] VITALS: BMI 18.3
[2021-08-15 08:49] LABS: Basophils % 0.7 % (0.1-2.0); Eosinophils # 0.4 K/mm3 (0.0-0.4); Eosinophils % 6.7 % (0.1-12.0); Hematocrit 41.8 % (42.0-52.0); Hemoglobin 13.3 g/dL (14.1-18.0); Lymphocytes # 1.1 K/mm3 (0.7-4.5); Lymphocytes % 21.5 % (10-50); Mean Corpuscular HGB Conc 31.9 g/dL (31.8-35.4); Mean Corpuscular Hemoglobin 33.4 pg (27.0-31.2); Mean Corpuscular Volume 104.7 fl (80-94); Mean Platelet Volume 8.4 fl (7.4-10.4); Monocytes # 0.5 K/mm3 (0.1-1.0); Neutrophils # 3.3 K/mm3 (1.8-7.8); Platelet Count 315 K/mm3 (142-424); Red Blood Count 3.99 M/mm3 (4.60-6.20); Red Cell Distribution Width 14.2 % (11.5-17.5); White Blood Count 5.3 K/mm3 (4.8-10.8)
[2021-08-15 09:01] LABS: Chloride 101 mmol/L (98-107); Potassium 3.8 mmoL/L (3.5-5.1); Sodium 138 mmol/L (136-145)
[2021-08-15 09:03] LABS: Blood Urea Nitrogen 7 mg/dl (9-20); Creatinine Clearance Estimated 61 mL/min (50-200); Estimated Glomerular Filt Rate 136 ml/min (>60); GFR (African American) 164 ML/MIN (>60)
[2021-08-15 09:04] LABS: Alanine Aminotransferase 12 U/L (12-78); Albumin Level 4.2 g/dl (3.5-5.0); Albumin/Globulin Ratio 1.5 (1.1-1.8); Alkaline Phosphatase 91 U/L (38-126); Anion Gap 10.8 mEq/L (5-15); Aspartate Amino Transferase 24 U/L (17-59); Bilirubin,Total 0.5 mg/dl (0.2-1.3); Calcium 8.9 mg/dl (8.4-10.2); Carbon Dioxide 30 mmol/L (22.0-30.0); Globulin 2.8 g/dL (1.3-3.2); Glucose 110 mg/dl (74-100)
[2021-08-15 09:35] LABS: Thyroid Stimulating Hormone 1.39 uIU/mL (0.465-4.68)
[2021-08-15 09:50] VITALS: BP 127/71; PULSE 77; RESP 18; O2SAT 100
[2021-08-15 10:25] VITALS: BP 122/75; PULSE 80; RESP 20
[2021-08-15 10:35] VITALS: BP 137/78; PULSE 83; RESP 18; O2SAT 100
== END 2021-08-15 10:35 | disposition home or self-care (01) ==
LOC: INF 08:24
PROVIDERS: PCP Family Medicine; Visit Provider Internal Medicine Medical Oncology
DX: Z51.11 Encounter for antineoplastic chemotherapy (principal); C34.91 Malignant neoplasm of unspecified part of right bronchus or lung
CPT/HCPCS: 80053; 82024; 82533; 84443; 85025; 96413; J2405; J9299

== ENCOUNTER 2021-08-29 09:15 | Outpatient (CLI) | payer OTHER, SELFPAY ==
[2021-08-29 09:18] VITALS: BMI 18.3
[2021-08-29 09:38] LABS: Basophils % 0.7 % (0.1-2.0); Eosinophils # 0.5 K/mm3 (0.0-0.4); Eosinophils % 8.4 % (0.1-12.0); Hematocrit 42.3 % (42.0-52.0); Hemoglobin 13.5 g/dL (14.1-18.0); Lymphocytes % 17.9 % (10-50); Mean Corpuscular Hemoglobin 33.3 pg (27.0-31.2); Mean Corpuscular Volume 104.1 fl (80-94); Mean Platelet Volume 6.9 fl (7.4-10.4); Monocytes # 0.5 K/mm3 (0.1-1.0); Monocytes % 7.7 % (1.7-9.3); Neutrophils # 3.8 K/mm3 (1.8-7.8); Neutrophils % 65.3 % (37.0-80.0); Platelet Count 319 K/mm3 (142-424); Red Blood Count 4.06 M/mm3 (4.60-6.20); Red Cell Distribution Width 13.4 % (11.5-17.5); White Blood Count 5.8 K/mm3 (4.8-10.8)
[2021-08-29 09:45] LABS: Chloride 102 mmol/L (98-107); Potassium 3.7 mmoL/L (3.5-5.1); Sodium 140 mmol/L (136-145)
[2021-08-29 09:48] LABS: Alanine Aminotransferase 13 U/L (12-78); Albumin Level 4.2 g/dl (3.5-5.0); Albumin/Globulin Ratio 1.6 (1.1-1.8); Alkaline Phosphatase 78 U/L (38-126); Anion Gap 11.7 mEq/L (5-15); Aspartate Amino Transferase 28 U/L (17-59); Bilirubin,Total 0.3 mg/dl (0.2-1.3); Blood Urea Nitrogen 7 mg/dl (9-20); Calcium 8.7 mg/dl (8.4-10.2); Carbon Dioxide 30 mmol/L (22.0-30.0); Creatinine Clearance Estimated 61 mL/min (50-200); Estimated Glomerular Filt Rate 136 ml/min (>60); GFR (African American) 164 ML/MIN (>60); Globulin 2.7 g/dL (1.3-3.2); Glucose 93 mg/dl (74-100); Total Protein,Serum 6.9 g/dl (6.3-8.2)
[2021-08-29 10:26] LABS: Thyroid Stimulating Hormone 1.69 uIU/mL (0.465-4.68)
[2021-08-29 11:07] VITALS: BP 140/78; PULSE 85; RESP 20; TEMP 36.8; O2SAT 99
[2021-08-29 11:50] VITALS: BP 142/80; PULSE 85; RESP 20; O2SAT 98
[2021-08-30 13:10] LABS: Adrenocorticotropic Hormone 27.2 pg/mL (7.2-63.3)
== END 2021-08-29 11:50 | disposition home or self-care (01) ==
LOC: INF 09:16
PROVIDERS: PCP Family Medicine; Visit Provider Internal Medicine Medical Oncology
DX: Z51.11 Encounter for antineoplastic chemotherapy (principal); C34.91 Malignant neoplasm of unspecified part of right bronchus or lung
CPT/HCPCS: 36415; 80053; 82024; 82533; 84443; 85025; 96413; J2405; J9299

== ENCOUNTER 2021-09-11 08:18 | Outpatient (CLI) | payer OTHER, SELFPAY ==
[2021-09-11 09:12] LABS: Basophils # 0.1 K/mm3 (0-0.2); Basophils % 0.8 % (0.1-2.0); Eosinophils # 0.5 K/mm3 (0.0-0.4); Eosinophils % 8.5 % (0.1-12.0); Hematocrit 44.4 % (42.0-52.0); Hemoglobin 14.8 g/dL (14.1-18.0); Lymphocytes # 1.4 K/mm3 (0.7-4.5); Lymphocytes % 22.5 % (10-50); Mean Corpuscular HGB Conc 33.3 g/dL (31.8-35.4); Mean Corpuscular Hemoglobin 34.7 pg (27.0-31.2); Mean Corpuscular Volume 104.2 fl (80-94); Mean Platelet Volume 6.8 fl (7.4-10.4); Monocytes # 0.4 K/mm3 (0.1-1.0); Monocytes % 7.1 % (1.7-9.3); Neutrophils # 3.8 K/mm3 (1.8-7.8); Platelet Count 318 K/mm3 (142-424); Red Blood Count 4.26 M/mm3 (4.60-6.20); Red Cell Distribution Width 13.4 % (11.5-17.5); White Blood Count 6.2 K/mm3 (4.8-10.8)
[2021-09-11 09:16] LABS: Alanine Aminotransferase 13 U/L (12-78); Albumin Level 4.6 g/dl (3.5-5.0); Albumin/Globulin Ratio 1.6 (1.1-1.8); Alkaline Phosphatase 87 U/L (38-126); Anion Gap 14.2 mEq/L (5-15); Aspartate Amino Transferase 27 U/L (17-59); Bilirubin,Total 0.4 mg/dl (0.2-1.3); Blood Urea Nitrogen 5 mg/dl (9-20); Calcium 8.8 mg/dl (8.4-10.2); Carbon Dioxide 30 mmol/L (22.0-30.0); Chloride 100 mmol/L (98-107); Creatinine Clearance Estimated 61 mL/min (50-200); Estimated Glomerular Filt Rate 136 ml/min (>60); GFR (African American) 164 ML/MIN (>60); Globulin 2.9 g/dL (1.3-3.2); Glucose 101 mg/dl (74-100); Potassium 4.2 mmoL/L (3.5-5.1); Sodium 140 mmol/L (136-145); Total Protein,Serum 7.5 g/dl (6.3-8.2)
[2021-09-11 09:47] LABS: Thyroid Stimulating Hormone 1.44 uIU/mL (0.465-4.68)
[2021-09-11 10:10] VITALS: BP 155/83; PULSE 103; RESP 20; TEMP 36.4; O2SAT 98
[2021-09-11 10:50] VITALS: BP 125/73; PULSE 102; RESP 20; O2SAT 98
[2021-09-12 14:12] LABS: Adrenocorticotropic Hormone 38.7 pg/mL (7.2-63.3)
== END 2021-09-11 10:50 | disposition home or self-care (01) ==
LOC: INF 08:18
PROVIDERS: PCP Family Medicine; Visit Provider Internal Medicine Medical Oncology
DX: Z51.11 Encounter for antineoplastic chemotherapy (principal); C34.91 Malignant neoplasm of unspecified part of right bronchus or lung
CPT/HCPCS: 80053; 82024; 82533; 84443; 85025; 96413; J2405; J9299

== ENCOUNTER → 2021-09-13 10:21 | Outpatient (CLI) | payer OTHER, SELFPAY ==
--- NOTE | 2021-09-13 10:25 | CT_ITS ---
PROCEDURE: CT CHEST W CON CLINCAL INDICATION: LUNG CANCER COMPARISON: CT CHW CT CHEST W/ CONTRAST from 10/29/[address] CHEST W CON from 07/18/2021 TECHNIQUE: IV Contrast: 75ml Isovue 370 Axial images obtained with sagittal and coronal reformats. All CT scans at the facility use one or more dose reduction, viz: automated exposure control, ma/kV adjustment per patient size (including targeted exams where dose is matched to indication, i.e. head), or iterative reconstruction technique. FINDINGS: HEART AND MEDIASTINAL STRUCTURES: No mediastinal or hilar mass or adenopathy. LUNGS AND PLEURAL SPACES: COPD with centrilobular emphysematous changes with scattered areas scarring subpleural thickening perihilar bronchial thickening in right hilar region as before with scarring in the right upper lobe anteriorly. 2 cm spiculated nodule in the right lower lobe posteriorly with a small adjacent nodule medially. The adjacent nodule measures approximately 1 cm and also has a spiculated appearance. Previously this area was less well-defined possibly related to some postobstructive change laterally. This nodule is suspicious for neoplasm and could be primary or metastatic. There is a small linear extension to the pleural surface. The overall measurement of both nodules combined is 3 cm transverse and 2 cm AP and 1 cm cephalad caudad. No effusions or infiltrates. No additional spur suspicious nodules are evident. There is a calcified granuloma in the left lower lobe. BONY STRUCTURES: No acute bony abnormalities apparent. UPPER ABDOMEN: Please see abdomen report of the same day ADDITIONAL FINDINGS: No other significant abnormalities. IMPRESSION: Spiculated mass in the right lower lobe posterior basilar segment which may represent 1 or 2 lesions in combination measuring 3 x 2 x 1 cm. This is suspicious for malignancy and may be related to metastatic disease or primary lung cancer. Dictated by: Wenceslao White MD 09/15/2021 10:42 Wenceslao White MD in [place] 09/15/2021 10:42
--- NOTE | 2021-09-13 10:25 | CT_ITS ---
PROCEDURE: CT ABDOMEN PELVIS W CON CLINICAL INDICATION: LUNG CANCER COMPARISON: CT CT ABDOMEN PELVIS W CON from 03/06/[address] ABDOMEN PELVIS W CON from 07/18/2021 TECHNIQUE: IV Contrast: 75ML Isovue 370 Oral Contrast None Axial images obtained with sagittal and coronal reformats. All CT scans at the facility use one or more dose reduction, viz: automated exposure control, ma/kV adjustment per patient size (including targeted exams where dose is matched to indication, i.e. head), or iterative reconstruction technique. FINDINGS: There are 3 small hypodense lesions of the liver as previously described which are not significantly changed. No new lesions are evident. Spleen, adrenal glands, pancreas, and kidneys show no acute finding. There are 2 small right renal cysts. No retroperitoneal adenopathy. No intestinal obstruction or free air. Unremarkable appendix. There is mild prominence of the prostate and seminal vesicles not significantly changed. There is mild thickening of the urinary bladder wall nonspecific. No abdominal or pelvic mass or adenopathy. No lytic or blastic bony lesions. IMPRESSION: Stable CT appearance of the abdomen. No change in the 3 small hypodense lesions of the liver which could be due to treated metastatic disease Dictated by: Wenceslao White MD 09/15/2021 10:49 Wenceslao White MD in [place] 09/15/2021 10:49
== END ==
PROVIDERS: PCP Family Medicine; Visit Provider Internal Medicine Medical Oncology
DX: C34.91 Malignant neoplasm of unspecified part of right bronchus or lung (principal)
CPT/HCPCS: 71260; 74177; Q9967

== ENCOUNTER → 2021-09-27 12:12 | Outpatient (CLI) | payer OTHER, SELFPAY | PROVIDERS: PCP Family Medicine; Visit Provider Nurse Practitioner | DX: Z20.822 Contact with and (suspected) exposure to COVID-19 (principal) | CPT/HCPCS: C9803; U0003; U0005 ==

== ENCOUNTER 2021-10-10 10:15 | Outpatient (CLI) | payer OTHER, SELFPAY ==
[2021-10-10 10:27] VITALS: BMI 18.3
[2021-10-10 10:46] LABS: Basophils % 0.6 % (0.1-2.0); Eosinophils # 0.2 K/mm3 (0.0-0.4); Eosinophils % 3.2 % (0.1-12.0); Hematocrit 40.4 % (42.0-52.0); Hemoglobin 13.8 g/dL (14.1-18.0); Lymphocytes # 1.3 K/mm3 (0.7-4.5); Lymphocytes % 20.5 % (10-50); Mean Corpuscular HGB Conc 34.2 g/dL (31.8-35.4); Mean Corpuscular Hemoglobin 33.2 pg (27.0-31.2); Mean Corpuscular Volume 97.1 fl (80-94); Mean Platelet Volume 7.6 fl (7.4-10.4); Monocytes # 0.4 K/mm3 (0.1-1.0); Monocytes % 6.2 % (1.7-9.3); Neutrophils # 4.5 K/mm3 (1.8-7.8); Neutrophils % 69.4 % (37.0-80.0); Platelet Count 495 K/mm3 (142-424); Red Blood Count 4.16 M/mm3 (4.60-6.20); Red Cell Distribution Width 13.3 % (11.5-17.5); White Blood Count 6.5 K/mm3 (4.8-10.8)
[2021-10-10 10:54] LABS: Chloride 97 mmol/L (98-107)
[2021-10-10 10:55] LABS: Potassium 3.9 mmoL/L (3.5-5.1); Sodium 138 mmol/L (136-145)
[2021-10-10 10:57] LABS: Alanine Aminotransferase 9 U/L (12-78); Alkaline Phosphatase 105 U/L (38-126); Anion Gap 12.9 mEq/L (5-15); Aspartate Amino Transferase 31 U/L (17-59); Bilirubin,Total 0.4 mg/dl (0.2-1.3); Blood Urea Nitrogen 11 mg/dl (9-20); Carbon Dioxide 32 mmol/L (22.0-30.0); Creatinine Clearance Estimated 61 mL/min (50-200); Estimated Glomerular Filt Rate 97 ml/min (>60); GFR (African American) 118 ML/MIN (>60)
[2021-10-10 10:58] LABS: Albumin Level 4.4 g/dl (3.5-5.0); Albumin/Globulin Ratio 1.4 (1.1-1.8); Globulin 3.1 g/dL (1.3-3.2); Glucose 101 mg/dl (74-100); Total Protein,Serum 7.5 g/dl (6.3-8.2)
[2021-10-10 11:29] LABS: Thyroid Stimulating Hormone 1.05 uIU/mL (0.465-4.68)
[2021-10-10 12:28] VITALS: BP 114/68; PULSE 103; RESP 20; TEMP 36.6; O2SAT 100
[2021-10-10 12:45] VITALS: BP 93/49; PULSE 102; RESP 20
[2021-10-10 13:00] VITALS: RESP 20
[2021-10-10 13:05] VITALS: BP 112/72; PULSE 105; RESP 18
[2021-10-11 13:10] LABS: Adrenocorticotropic Hormone 27.2 pg/mL (7.2-63.3)
== END 2021-10-10 13:05 | disposition home or self-care (01) ==
LOC: INF 10:16
PROVIDERS: PCP Family Medicine; Visit Provider Internal Medicine Medical Oncology
DX: Z51.11 Encounter for antineoplastic chemotherapy (principal); C34.91 Malignant neoplasm of unspecified part of right bronchus or lung
CPT/HCPCS: 80053; 82024; 82533; 84443; 85025; 96413; J2405; J9299

== ENCOUNTER 2021-10-23 08:21 | Outpatient (CLI) | payer OTHER, SELFPAY ==
[2021-10-23 08:25] VITALS: BMI 18.1
[2021-10-23 08:48] LABS: Basophils # 0.1 K/mm3 (0-0.2); Eosinophils # 0.6 K/mm3 (0.0-0.4); Eosinophils % 9.5 % (0.1-12.0); Hematocrit 37.9 % (42.0-52.0); Hemoglobin 12.8 g/dL (14.1-18.0); Lymphocytes # 1.3 K/mm3 (0.7-4.5); Lymphocytes % 19.2 % (10-50); Mean Corpuscular HGB Conc 33.8 g/dL (31.8-35.4); Mean Corpuscular Hemoglobin 32.9 pg (27.0-31.2); Mean Corpuscular Volume 97.2 fl (80-94); Mean Platelet Volume 7.2 fl (7.4-10.4); Monocytes # 0.5 K/mm3 (0.1-1.0); Monocytes % 7.7 % (1.7-9.3); Neutrophils # 4.2 K/mm3 (1.8-7.8); Neutrophils % 62.6 % (37.0-80.0); Platelet Count 302 K/mm3 (142-424); Red Cell Distribution Width 13.9 % (11.5-17.5); White Blood Count 6.7 K/mm3 (4.8-10.8)
[2021-10-23 08:50] LABS: Chloride 99 mmol/L (98-107)
[2021-10-23 08:51] LABS: Potassium 3.9 mmoL/L (3.5-5.1); Sodium 136 mmol/L (136-145)
[2021-10-23 08:53] LABS: Alanine Aminotransferase 13 U/L (12-78); Aspartate Amino Transferase 28 U/L (17-59); Blood Urea Nitrogen 9 mg/dl (9-20); Creatinine Clearance Estimated 60 mL/min (50-200); Estimated Glomerular Filt Rate 114 ml/min (>60); GFR (African American) 137 ML/MIN (>60)
[2021-10-23 08:54] LABS: Albumin Level 4.2 g/dl (3.5-5.0); Albumin/Globulin Ratio 1.5 (1.1-1.8); Alkaline Phosphatase 83 U/L (38-126); Anion Gap 9.9 mEq/L (5-15); Bilirubin,Total 0.4 mg/dl (0.2-1.3); Calcium 7.9 mg/dl (8.4-10.2); Carbon Dioxide 31 mmol/L (22.0-30.0); Globulin 2.8 g/dL (1.3-3.2); Glucose 93 mg/dl (74-100)
[2021-10-23 09:42] VITALS: BP 138/89; PULSE 99; RESP 20; TEMP 36.8; O2SAT 100
[2021-10-23 10:20] VITALS: BP 138/89; PULSE 99; RESP 20; TEMP 36.8; O2SAT 100
[2021-10-24 14:31] LABS: Adrenocorticotropic Hormone 37.6 pg/mL (7.2-63.3)
== END 2021-10-23 10:20 | disposition home or self-care (01) ==
LOC: INF 08:22
PROVIDERS: PCP Family Medicine; Visit Provider Internal Medicine Medical Oncology
DX: Z51.11 Encounter for antineoplastic chemotherapy (principal); C34.91 Malignant neoplasm of unspecified part of right bronchus or lung; Z79.899 Other long term (current) drug therapy
CPT/HCPCS: 80053; 82024; 82533; 84443; 85025; 96413; J2405; J9299

== ENCOUNTER 2021-11-20 08:11 | Outpatient (CLI) | payer OTHER, SELFPAY ==
[2021-11-20 08:13] VITALS: BMI 18.1
[2021-11-20 08:48] LABS: Basophils % 0.4 % (0.1-2.0); Eosinophils # 0.2 K/mm3 (0.0-0.4); Eosinophils % 1.5 % (0.1-12.0); Hematocrit 37.6 % (42.0-52.0); Hemoglobin 12.3 g/dL (14.1-18.0); Lymphocytes # 0.7 K/mm3 (0.7-4.5); Lymphocytes % 6.7 % (10-50); Mean Corpuscular HGB Conc 32.6 g/dL (31.8-35.4); Mean Corpuscular Hemoglobin 33.1 pg (27.0-31.2); Mean Corpuscular Volume 101.5 fl (80-94); Monocytes # 0.8 K/mm3 (0.1-1.0); Neutrophils # 8.5 K/mm3 (1.8-7.8); Neutrophils % 83.5 % (37.0-80.0); Platelet Count 556 K/mm3 (142-424); Red Blood Count 3.71 M/mm3 (4.60-6.20); Red Cell Distribution Width 13.7 % (11.5-17.5); White Blood Count 10.2 K/mm3 (4.8-10.8)
[2021-11-20 08:55] LABS: Alanine Aminotransferase 22 U/L (12-78); Albumin/Globulin Ratio 1.2 (1.1-1.8); Alkaline Phosphatase 97 U/L (38-126); Anion Gap 11.8 mEq/L (5-15); Aspartate Amino Transferase 28 U/L (17-59); Bilirubin,Total 0.5 mg/dl (0.2-1.3); Blood Urea Nitrogen 7 mg/dl (9-20); Calcium 7.9 mg/dl (8.4-10.2); Carbon Dioxide 32 mmol/L (22.0-30.0); Chloride 94 mmol/L (98-107); Creatinine Clearance Estimated 60 mL/min (50-200); Estimated Glomerular Filt Rate 136 ml/min (>60); GFR (African American) 164 ML/MIN (>60); Globulin 3.3 g/dL (1.3-3.2); Glucose 125 mg/dl (74-100); Potassium 3.8 mmoL/L (3.5-5.1); Sodium 134 mmol/L (136-145); Total Protein,Serum 7.3 g/dl (6.3-8.2)
[2021-11-20 09:35] VITALS: BP 118/73; PULSE 118; RESP 22; TEMP 36.7; O2SAT 100
[2021-11-20 10:20] VITALS: BP 137/76; PULSE 116; RESP 22; O2SAT 100
[2021-11-21 18:00] LABS: Adrenocorticotropic Hormone 20.1 pg/mL (7.2-63.3)
== END 2021-11-20 10:20 | disposition home or self-care (01) ==
LOC: INF 08:12
PROVIDERS: PCP Family Medicine; Visit Provider Internal Medicine Medical Oncology
DX: Z51.11 Encounter for antineoplastic chemotherapy (principal); C34.91 Malignant neoplasm of unspecified part of right bronchus or lung
CPT/HCPCS: 80053; 82024; 82533; 84443; 85025; 96413; J2405; J9299

== ENCOUNTER 2021-12-05 08:32 | Outpatient (CLI) | payer OTHER, SELFPAY ==
[2021-12-05 08:36] VITALS: BMI 18.1
[2021-12-05 08:56] LABS: Basophils # 0.1 K/mm3 (0-0.2); Basophils % 0.8 % (0.1-2.0); Eosinophils # 0.4 K/mm3 (0.0-0.4); Eosinophils % 4.2 % (0.1-12.0); Hematocrit 39.4 % (42.0-52.0); Hemoglobin 12.1 g/dL (14.1-18.0); Lymphocytes # 1.5 K/mm3 (0.7-4.5); Lymphocytes % 16.2 % (10-50); Mean Corpuscular HGB Conc 30.8 g/dL (31.8-35.4); Mean Corpuscular Hemoglobin 31.9 pg (27.0-31.2); Mean Corpuscular Volume 103.5 fl (80-94); Mean Platelet Volume 7.2 fl (7.4-10.4); Monocytes # 0.6 K/mm3 (0.1-1.0); Monocytes % 6.7 % (1.7-9.3); Neutrophils # 6.6 K/mm3 (1.8-7.8); Platelet Count 984 K/mm3 (142-424); Red Cell Distribution Width 14.2 % (11.5-17.5); White Blood Count 9.1 K/mm3 (4.8-10.8)
[2021-12-05 09:10] LABS: Alanine Aminotransferase 23 U/L (12-78); Albumin/Globulin Ratio 1.1 (1.1-1.8); Alkaline Phosphatase 109 U/L (38-126); Anion Gap 9.5 mEq/L (5-15); Aspartate Amino Transferase 34 U/L (17-59); Bilirubin,Total 0.2 mg/dl (0.2-1.3); Blood Urea Nitrogen 8 mg/dl (9-20); Carbon Dioxide 32 mmol/L (22.0-30.0); Chloride 102 mmol/L (98-107); Creatinine Clearance Estimated 60 mL/min (50-200); Estimated Glomerular Filt Rate 136 ml/min (>60); GFR (African American) 164 ML/MIN (>60); Globulin 3.7 g/dL (1.3-3.2); Glucose 83 mg/dl (74-100); Potassium 3.5 mmoL/L (3.5-5.1); Sodium 140 mmol/L (136-145); Total Protein,Serum 7.7 g/dl (6.3-8.2)
[2021-12-05 09:40] LABS: Thyroid Stimulating Hormone 1.38 uIU/mL (0.465-4.68)
[2021-12-06 13:11] LABS: Adrenocorticotropic Hormone 26.4 pg/mL (7.2-63.3)
== END 2021-12-05 09:45 | disposition home or self-care (01) ==
LOC: INF 08:33
PROVIDERS: PCP Family Medicine; Visit Provider Internal Medicine Medical Oncology
DX: C34.91 Malignant neoplasm of unspecified part of right bronchus or lung (principal)
CPT/HCPCS: 80053; 82024; 82533; 84443; 85025

== ENCOUNTER → 2021-12-11 10:09 | Outpatient (CLI) | payer OTHER, SELFPAY ==
--- NOTE | 2021-12-11 10:12 | CT_ITS ---
FINAL REPORT CLINICAL HISTORY: LUNG CANCER, SMOKER COMPARISON: September 23, 2021 and July 18, 2021 FINDINGS: Axial CT images of the chest were obtained with contrast. Coronal reformatted images were also obtained. This study was performed with techniques to keep radiation doses as low as reasonably achievable, (ALARA). Individualized dose reduction techniques using automated exposure control or adjustment of mA and/or KV according to the patient's size were employed. There are small mediastinal and hilar lymph nodes. No axillary mass or adenopathy is identified. On lung window images, there is moderate to severe emphysema. There is scarring in the medial right upper thorax. There are multiple, new left upper lobe and lingular nodules, most measuring less than 1 cm. There is a 10 mm nodule in the inferior lingula. The right lower lobe spiculated nodule measures 14 mm and was 2 cm. The nodule just superior to this measures 10 mm and was 10 mm. On the coronal views it is visually smaller. There is a calcified granuloma in the left lower lobe. There are new soft tissue opacities anteriolateral left lower lobe. Limited images of the upper abdomen are unremarkable. IMPRESSION: Partially improved right lower lobe nodules, consistent with improved neoplastic involvement. Multiple new left upper lobe and lingular nodules, favor inflammatory over neoplastic. Can be further evaluated with follow-up CT. New soft tissue opacities left lower lobe, favor inflammatory over neoplastic. Reviewed, Interpreted and Dictated by Apollo Rea III, MD Transcribed by Kae Starkey Authenticated by Apollo eRa III, MD on 12/11/2021 01:58:59 PM [facility]
--- NOTE | 2021-12-11 10:12 | CT_ITS ---
FINAL REPORT CLINICAL HISTORY: LUNG CANCER, SMOKER COMPARISON: September 13, 2021 and July 18, 2021. FINDINGS: CT OF THE ABDOMEN AND PELVIS WITH CONTRAST Axial CT images of the abdomen and pelvis were obtained after the administration of oral and iv contrast. Coronal reformatted images were also obtained and reviewed.This study was performed with techniques to keep radiation doses as low as reasonably achievable (ALARA). Individualized dose reduction techniques using automated exposure control or adjustment of mA and/or kV according to the patient's size were employed. Abdomen: The lung bases are clear. The heart is normal in size. There are 3, less than 1 cm, low-attenuation foci of the liver which are stable. No new hepatic mass is identified. The gallbladder is present. The spleen is unremarkable. No adrenal mass is present. The pancreas has an unremarkable appearance. The left kidney is normal, without evidence of mass or hydronephrosis. There are multiple small, less than 1 cm, right renal cysts which are stable. The aorta is normal in caliber. There are moderate vascular calcifications. There is no free fluid or adenopathy. No mass or abnormal fluid collection is seen. Pelvis: The appendix is normal. The urinary bladder wall is mildly thickened which is likely inflammatory. There is no new mass or adenopathy identified. There is no evidence of bowel obstruction. IMPRESSION: Overall stable appearance of the abdomen. Reviewed, Interpreted and Dictated by Apollo Rea III, MD Transcribed by Kae Starkey Authenticated by Apollo Rea III, MD on 12/11/2021 01:58:46 PM [facility]
== END ==
PROVIDERS: PCP Family Medicine; Visit Provider Internal Medicine Medical Oncology
DX: C34.90 Malignant neoplasm of unspecified part of unspecified bronchus or lung (principal); Z03.89 Encounter for observation for other suspected diseases and conditions ruled out
CPT/HCPCS: 71260; 74177; Q9967

== ENCOUNTER 2021-12-19 09:45 | Outpatient (CLI) | payer OTHER, SELFPAY ==
[2021-12-19 09:47] VITALS: BMI 18.3
[2021-12-19 10:10] LABS: Basophils # 0.1 K/mm3 (0-0.2); Basophils % 1.3 % (0.1-2.0); Eosinophils # 0.8 K/mm3 (0.0-0.4); Eosinophils % 9.7 % (0.1-12.0); Hematocrit 39.7 % (42.0-52.0); Hemoglobin 12.6 g/dL (14.1-18.0); Lymphocytes # 1.2 K/mm3 (0.7-4.5); Lymphocytes % 15.5 % (10-50); Mean Corpuscular HGB Conc 31.8 g/dL (31.8-35.4); Mean Corpuscular Hemoglobin 32.5 pg (27.0-31.2); Mean Corpuscular Volume 102.3 fl (80-94); Mean Platelet Volume 7.4 fl (7.4-10.4); Monocytes # 0.4 K/mm3 (0.1-1.0); Monocytes % 5.5 % (1.7-9.3); Neutrophils # 5.4 K/mm3 (1.8-7.8); Platelet Count 390 K/mm3 (142-424); Red Blood Count 3.88 M/mm3 (4.60-6.20); Red Cell Distribution Width 15.4 % (11.5-17.5); White Blood Count 7.9 K/mm3 (4.8-10.8)
[2021-12-19 10:17] LABS: Chloride 100 mmol/L (98-107)
[2021-12-19 10:18] LABS: Potassium 3.9 mmoL/L (3.5-5.1); Sodium 136 mmol/L (136-145)
[2021-12-19 10:20] LABS: Alanine Aminotransferase 14 U/L (12-78); Aspartate Amino Transferase 30 U/L (17-59); Blood Urea Nitrogen 12 mg/dl (9-20); Creatinine Clearance Estimated 61 mL/min (50-200); Estimated Glomerular Filt Rate 114 ml/min (>60); GFR (African American) 137 ML/MIN (>60)
[2021-12-19 10:21] LABS: Albumin Level 4.3 g/dl (3.5-5.0); Albumin/Globulin Ratio 1.4 (1.1-1.8); Alkaline Phosphatase 96 U/L (38-126); Anion Gap 7.9 mEq/L (5-15); Bilirubin,Total 0.4 mg/dl (0.2-1.3); Carbon Dioxide 32 mmol/L (22.0-30.0); Glucose 103 mg/dl (74-100); Total Protein,Serum 7.3 g/dl (6.3-8.2)
[2021-12-19 11:20] VITALS: BP 146/73; PULSE 100; RESP 20; TEMP 36.4; O2SAT 99
[2021-12-19 12:10] VITALS: BP 115/79; PULSE 97; RESP 20; O2SAT 98
[2021-12-20 13:17] LABS: Adrenocorticotropic Hormone 20.7 pg/mL (7.2-63.3)
== END 2021-12-19 12:10 | disposition home or self-care (01) ==
LOC: INF 09:46
PROVIDERS: PCP Family Medicine; Visit Provider Internal Medicine Medical Oncology
DX: Z51.11 Encounter for antineoplastic chemotherapy (principal); C34.91 Malignant neoplasm of unspecified part of right bronchus or lung
CPT/HCPCS: 80053; 82024; 82533; 84443; 85025; 96365; 96413; J2405; J9299

== ENCOUNTER 2022-01-16 08:10 | Outpatient (CLI) | payer OTHER, SELFPAY ==
[2022-01-16 09:21] VITALS: BMI 18.6
[2022-01-16 09:42] LABS: Basophils # 0.1 K/mm3 (0-0.2); Eosinophils # 0.2 K/mm3 (0.0-0.4); Eosinophils % 3.9 % (0.1-12.0); Hemoglobin 12.5 g/dL (14.1-18.0); Lymphocytes # 1.3 K/mm3 (0.7-4.5); Lymphocytes % 20.7 % (10-50); Mean Corpuscular HGB Conc 31.2 g/dL (31.8-35.4); Mean Corpuscular Hemoglobin 31.5 pg (27.0-31.2); Mean Corpuscular Volume 101.1 fl (80-94); Mean Platelet Volume 7.5 fl (7.4-10.4); Monocytes # 0.5 K/mm3 (0.1-1.0); Monocytes % 7.7 % (1.7-9.3); Neutrophils # 4.1 K/mm3 (1.8-7.8); Neutrophils % 66.8 % (37.0-80.0); Platelet Count 401 K/mm3 (142-424); Red Blood Count 3.95 M/mm3 (4.60-6.20); Red Cell Distribution Width 15.1 % (11.5-17.5); White Blood Count 6.1 K/mm3 (4.8-10.8)
[2022-01-16 10:06] LABS: Alanine Aminotransferase 15 U/L (12-78); Albumin Level 4.5 g/dl (3.5-5.0); Albumin/Globulin Ratio 1.5 (1.1-1.8); Alkaline Phosphatase 97 U/L (38-126); Anion Gap 13.9 mEq/L (5-15); Aspartate Amino Transferase 27 U/L (17-59); Bilirubin,Total 0.5 mg/dl (0.2-1.3); Blood Urea Nitrogen 7 mg/dl (9-20); Calcium 6.4 mg/dl (8.4-10.2); Carbon Dioxide 28 mmol/L (22.0-30.0); Chloride 99 mmol/L (98-107); Creatinine Clearance Estimated 62 mL/min (50-200); Estimated Glomerular Filt Rate 114 ml/min (>60); GFR (African American) 137 ML/MIN (>60); Globulin 3.1 g/dL (1.3-3.2); Glucose 101 mg/dl (74-100); Potassium 3.9 mmoL/L (3.5-5.1); Sodium 137 mmol/L (136-145); Total Protein,Serum 7.6 g/dl (6.3-8.2)
[2022-01-16 10:50] VITALS: BP 133/78; PULSE 89; RESP 20; O2SAT 98
[2022-01-16 11:40] VITALS: BP 145/76; PULSE 90; RESP 20; O2SAT 97
[2022-01-17 14:14] LABS: Adrenocorticotropic Hormone 32.1 pg/mL (7.2-63.3)
== END 2022-01-16 11:40 | disposition home or self-care (01) ==
LOC: INF 08:10
PROVIDERS: Visit Provider Internal Medicine Medical Oncology
DX: Z51.11 Encounter for antineoplastic chemotherapy (principal); C34.90 Malignant neoplasm of unspecified part of unspecified bronchus or lung
CPT/HCPCS: 80053; 82024; 82533; 84443; 85025; 96413; J2405; J9299

== ENCOUNTER → 2022-01-30 07:41 | Outpatient (CLI) | payer OTHER, SELFPAY ==
--- NOTE | 2022-01-30 07:56 | CA_ITS ---
FINAL REPORT TECHNIQUE: Axial and color Doppler waveform evaluation of the right upper extremity was performed. Spectral analysis was performed. CLINICAL HISTORY: PAIN RUE,NUMBNESS/TINGLING RT HAND,SMOKER,LUNG CA,DECREASED PULSES FINDINGS: Right upper extremity Velocities cm/sec: SCA: 43 AxA Mid: 97 BrA Dist: 90 Rad: 45 Ul: 32 Waveforms are biphasic. IMPRESSION: No significant peripheral vascular disease. Reviewed, Interpreted and Dictated by Kar Bowden MD Transcribed by Bre Gross Authenticated by Kar Bowden MD on 01/30/2022 11:22:[address] [facility]
== END ==
PROVIDERS: PCP Family Medicine; Visit Provider Family Medicine
DX: I70.218 Atherosclerosis of native arteries of extremities with intermittent claudication, other extremity (principal); I73.9 Peripheral vascular disease, unspecified; R25.2 Cramp and spasm
CPT/HCPCS: 93931

== ENCOUNTER 2022-02-13 09:23 | Outpatient (CLI) | payer OTHER, SELFPAY ==
[2022-02-13 09:26] VITALS: BMI 17.9
[2022-02-13 09:41] LABS: Basophils % 0.6 % (0.1-2.0); Eosinophils # 0.2 K/mm3 (0.0-0.4); Eosinophils % 3.9 % (0.1-12.0); Hematocrit 42.1 % (42.0-52.0); Hemoglobin 13.4 g/dL (14.1-18.0); Lymphocytes # 1.2 K/mm3 (0.7-4.5); Lymphocytes % 19.6 % (10-50); Mean Corpuscular HGB Conc 31.8 g/dL (31.8-35.4); Mean Corpuscular Hemoglobin 31.8 pg (27.0-31.2); Mean Corpuscular Volume 99.8 fl (80-94); Mean Platelet Volume 7.6 fl (7.4-10.4); Monocytes # 0.4 K/mm3 (0.1-1.0); Monocytes % 5.7 % (1.7-9.3); Neutrophils # 4.3 K/mm3 (1.8-7.8); Neutrophils % 70.1 % (37.0-80.0); Platelet Count 428 K/mm3 (142-424); Red Blood Count 4.22 M/mm3 (4.60-6.20); Red Cell Distribution Width 15.1 % (11.5-17.5); White Blood Count 6.1 K/mm3 (4.8-10.8)
[2022-02-13 09:50] LABS: Alanine Aminotransferase 19 U/L (12-78); Albumin Level 4.5 g/dl (3.5-5.0); Albumin/Globulin Ratio 1.4 (1.1-1.8); Alkaline Phosphatase 100 U/L (38-126); Anion Gap 10.9 mEq/L (5-15); Aspartate Amino Transferase 30 U/L (17-59); Bilirubin,Total 0.4 mg/dl (0.2-1.3); Blood Urea Nitrogen 9 mg/dl (9-20); Calcium 7.7 mg/dl (8.4-10.2); Carbon Dioxide 31 mmol/L (22.0-30.0); Chloride 100 mmol/L (98-107); Creatinine Clearance Estimated 60 mL/min (50-200); Estimated Glomerular Filt Rate 136 ml/min (>60); GFR (African American) 164 ML/MIN (>60); Globulin 3.3 g/dL (1.3-3.2); Glucose 104 mg/dl (74-100); Potassium 3.9 mmoL/L (3.5-5.1); Sodium 138 mmol/L (136-145); Total Protein,Serum 7.8 g/dl (6.3-8.2)
[2022-02-13 10:55] VITALS: BP 133/87; PULSE 96; RESP 20; TEMP 36.4; O2SAT 100
[2022-02-13 11:48] VITALS: BP 156/91; PULSE 97; RESP 20; O2SAT 100
[2022-02-14 13:15] LABS: Adrenocorticotropic Hormone 33.9 pg/mL (7.2-63.3)
== END 2022-02-13 11:48 | disposition home or self-care (01) ==
LOC: INF 09:24
PROVIDERS: PCP Family Medicine; Visit Provider Internal Medicine Medical Oncology
DX: Z51.11 Encounter for antineoplastic chemotherapy (principal); C34.90 Malignant neoplasm of unspecified part of unspecified bronchus or lung
CPT/HCPCS: 80053; 82024; 82533; 84443; 85025; 96413; J2405; J9299

== ENCOUNTER 2022-03-03 09:10 | Outpatient (CLI) | payer OTHER, SELFPAY ==
--- NOTE | 2022-03-03 09:15 | PC.NURSE ---
0910-collected labs via peripheral stick for ct scan next week. pt d/c home
[2022-03-03 09:18] VITALS: BMI 17.8
[2022-03-03 09:49] LABS: Chloride 100 mmol/L (98-107); Potassium 4.1 mmoL/L (3.5-5.1); Sodium 138 mmol/L (136-145)
[2022-03-03 09:52] LABS: Alanine Aminotransferase 16 U/L (12-78); Albumin Level 3.9 g/dl (3.5-5.0); Albumin/Globulin Ratio 1.3 (1.1-1.8); Alkaline Phosphatase 82 U/L (38-126); Anion Gap 6.1 mEq/L (5-15); Aspartate Amino Transferase 33 U/L (17-59); Bilirubin,Total 0.3 mg/dl (0.2-1.3); Blood Urea Nitrogen 10 mg/dl (9-20); Carbon Dioxide 36 mmol/L (22.0-30.0); Creatinine Clearance Estimated 59 mL/min (50-200); Estimated Glomerular Filt Rate 114 ml/min (>60); GFR (African American) 137 ML/MIN (>60); Total Protein,Serum 6.9 g/dl (6.3-8.2)
[2022-03-03 09:53] LABS: Calcium 6.9 mg/dl (8.4-10.2); Glucose 134 mg/dl (74-100)
[2022-03-03 09:56] LABS: Basophils % 0.6 % (0.1-2.0); Eosinophils # 0.3 K/mm3 (0.0-0.4); Eosinophils % 5.6 % (0.1-12.0); Hematocrit 37.7 % (42.0-52.0); Hemoglobin 12.3 g/dL (14.1-18.0); Lymphocytes # 1.2 K/mm3 (0.7-4.5); Lymphocytes % 20.4 % (10-50); Mean Corpuscular HGB Conc 32.6 g/dL (31.8-35.4); Mean Corpuscular Hemoglobin 30.6 pg (27.0-31.2); Mean Corpuscular Volume 93.8 fl (80-94); Mean Platelet Volume 6.9 fl (7.4-10.4); Monocytes # 0.5 K/mm3 (0.1-1.0); Neutrophils # 3.9 K/mm3 (1.8-7.8); Neutrophils % 65.3 % (37.0-80.0); Platelet Count 351 K/mm3 (142-424); Red Blood Count 4.02 M/mm3 (4.60-6.20); Red Cell Distribution Width 14.5 % (11.5-17.5)
[2022-03-04 13:11] LABS: Adrenocorticotropic Hormone 45.6 pg/mL (7.2-63.3)
== END 2022-03-03 09:15 | disposition home or self-care (01) ==
LOC: INF 09:11
PROVIDERS: PCP Family Medicine; Visit Provider Internal Medicine Medical Oncology
DX: C34.90 Malignant neoplasm of unspecified part of unspecified bronchus or lung (principal)
CPT/HCPCS: 80053; 82024; 82533; 84443; 85025

== ENCOUNTER → 2022-03-10 08:30 | Outpatient (CLI) | payer OTHER, SELFPAY ==
--- NOTE | 2022-03-10 08:34 | CT_ITS ---
FINAL REPORT TECHNIQUE: Pre-and postcontrast axial CT images of the abdomen and pelvis were obtained. Coronal reformatted images were also obtained and reviewed. Oral contrast was given. This study was performed with techniques to keep radiation doses as low as reasonably achievable (ALARA). Individualized dose reduction techniques using automated exposure control or adjustment of mA and/or kV according to the patient''''s size were employed. CLINICAL HISTORY: LUNG CANCER in remission. yearly checkup. COMPARISON: 12/11/2021 FINDINGS: CT OF THE ABDOMEN AND PELVIS WITH AND WITHOUT CONTRAST Abdomen: The heart is normal in size. There are stable small low-attenuation foci in the liver consistent with cysts. The spleen is unremarkable. No adrenal mass is present. The pancreas has an unremarkable appearance. There are small bilateral renal stones. There are several less than 1 cm low-attenuation foci in the right kidney consistent with cysts. Note is made of moderate vascular calcification. The aorta is normal in caliber. There is no free fluid or adenopathy. Pelvis: The appendix is unremarkable. There is mild bladder wall thickening which is stable. No inflammatory process is seen. There is no evidence of mass or adenopathy. There is no evidence of bowel obstruction. Precontrast imaging demonstrates no evidence of nephrolithiasis. IMPRESSION: Stable appearing findings without evidence of acute intra-abdominal process. Reviewed, Interpreted and Dictated by Apollo Rea III, MD Transcribed by Bre Gross Authenticated by Apollo Rea III, MD on 03/10/2022 10:17:[address] [facility]
--- NOTE | 2022-03-10 08:34 | CT_ITS ---
FINAL REPORT CLINICAL HISTORY: LUNG CANCER. in remission. yearly f/u COMPARISON: 12/11/2021 FINDINGS: Axial images through the chest was performed with and without contrast. Sagittal and coronal reformatted images were obtained and reviewed. Low-dose technique was utilized. There are stable small mediastinal nodes. There is moderate emphysema and mild scarring. The heart is normal in size. There is no pleural or pericardial effusion. There are right lower lobe nodules measuring up to 1.5 cm which appear stable. There has been improvement in the small left upper lobe and lingular nodules seen on the prior however, there are new posterior left upper lobe nodular opacities measuring up to 19 mm, may be inflammatory or neoplastic. IMPRESSION: Improvement in the left upper lobe and lingular nodules. Stable right lower lobe nodules. New, posterior left upper lobe nodular opacities, may be inflammatory or neoplastic. This could be further evaluated with PET-CT or chest CT follow-up in 6-8 weeks. Reviewed, Interpreted and Dictated by Apollo Rea III, MD Transcribed by Bre Gross Authenticated by Apollo Rea III, MD on 03/10/2022 10:46:01 AM [facility]
== END ==
PROVIDERS: PCP Family Medicine; Visit Provider Internal Medicine Medical Oncology
DX: C34.90 Malignant neoplasm of unspecified part of unspecified bronchus or lung (principal)
CPT/HCPCS: 71270; 74178; Q9967

== ENCOUNTER 2022-04-17 08:25 | Outpatient (CLI) | payer OTHER, SELFPAY ==
[2022-04-17 08:31] VITALS: BMI 17.9
[2022-04-17 08:45] LABS: Basophils # 0.1 K/mm3 (0-0.2); Eosinophils # 0.3 K/mm3 (0.0-0.4); Eosinophils % 5.6 % (0.1-12.0); Hematocrit 40.5 % (42.0-52.0); Hemoglobin 13.2 g/dL (14.1-18.0); Lymphocytes # 1.1 K/mm3 (0.7-4.5); Lymphocytes % 18.1 % (10-50); Mean Corpuscular HGB Conc 32.7 g/dL (31.8-35.4); Mean Corpuscular Hemoglobin 31.4 pg (27.0-31.2); Mean Platelet Volume 8.6 fl (7.4-10.4); Monocytes # 0.5 K/mm3 (0.1-1.0); Monocytes % 8.8 % (1.7-9.3); Neutrophils # 4.1 K/mm3 (1.8-7.8); Neutrophils % 66.6 % (37.0-80.0); Platelet Count 337 K/mm3 (142-424); Red Blood Count 4.22 M/mm3 (4.60-6.20); Red Cell Distribution Width 15.4 % (11.5-17.5); White Blood Count 6.2 K/mm3 (4.8-10.8)
[2022-04-17 08:52] LABS: Chloride 98 mmol/L (98-107); Potassium 3.6 mmoL/L (3.5-5.1); Sodium 138 mmol/L (136-145)
[2022-04-17 08:54] LABS: Blood Urea Nitrogen 8 mg/dl (9-20); Creatinine Clearance Estimated 60 mL/min (50-200); Estimated Glomerular Filt Rate 136 ml/min (>60); GFR (African American) 164 ML/MIN (>60)
[2022-04-17 08:55] LABS: Alanine Aminotransferase 18 U/L (12-78); Albumin Level 4.5 g/dl (3.5-5.0); Albumin/Globulin Ratio 1.5 (1.1-1.8); Alkaline Phosphatase 81 U/L (38-126); Anion Gap 10.6 mEq/L (5-15); Aspartate Amino Transferase 32 U/L (17-59); Bilirubin,Total 0.5 mg/dl (0.2-1.3); Calcium 6.6 mg/dl (8.4-10.2); Carbon Dioxide 33 mmol/L (22.0-30.0); Glucose 110 mg/dl (74-100); Total Protein,Serum 7.5 g/dl (6.3-8.2)
[2022-04-17 10:10] VITALS: BP 148/79; PULSE 90; RESP 20; O2SAT 100
[2022-04-17 10:55] VITALS: BP 129/84; PULSE 92; RESP 20; O2SAT 100
[2022-04-18 13:12] LABS: Adrenocorticotropic Hormone 29.5 pg/mL (7.2-63.3)
== END 2022-04-17 10:55 | disposition home or self-care (01) ==
LOC: INF 08:26
PROVIDERS: PCP Family Medicine; Visit Provider Internal Medicine Medical Oncology
DX: Z51.11 Encounter for antineoplastic chemotherapy (principal); C34.91 Malignant neoplasm of unspecified part of right bronchus or lung
CPT/HCPCS: 80053; 82024; 82533; 84443; 85025; 96413; J2405; J9299

== ENCOUNTER 2022-04-28 15:25 | Emergency (ER) | payer OTHER, SELFPAY ==
[2022-04-28 16:46] VITALS: BP 173/96; PULSE 127; RESP 24; TEMP 37.1; O2SAT 95; BMI 16.6
--- NOTE | 2022-04-28 16:50 | XR_ITS ---
PROCEDURE INFORMATION: Exam: XR Chest Exam date and time: 04/28/2022 4:57 PM Age: 66 years old Clinical indication: Shortness of breath; Additional info: SOA TECHNIQUE: Imaging protocol: Radiologic exam of the chest. Views: 1 view. COMPARISON: CT CHEST WO/W CON 03/10/2022 8:47 AM FINDINGS: Lungs: COPD, interstitial disease, and chronic granulomatous disease. Decreased conspicuity of CT detected mass in the posterior segment of the left upper lobe. Pleural spaces: No pleural effusion. Heart/Mediastinum: No cardiomegaly. Bones/joints: Degenerative change. IMPRESSION: 1. COPD, interstitial disease, and chronic granulomatous disease. 2. Decreased conspicuity of CT detected mass in the posterior segment of the left upper lobe.
--- NOTE | 2022-04-28 17:07 | HMH.EDGENADL ---
ED Disposition Clinical Impression: Acute exacerbation of chronic obstructive airways disease Community acquired pneumonia Qualifiers: Laterality: right Lung location: lower lobe of lung Qualified Code(s): J18.9 - Pneumonia, unspecified organism Disposition: Home, Self-Care Condition on Discharge: Good Instructions: DI for Chronic Obstructive Pulmonary Disease Prescriptions: Doxycycline Monohydrate [Doxycycline Piute 100mg Tab] 100 mg PO Q12 #20 tab Transmission Status: Pending to [facility] methylPREDNISolone [Medrol 4mg tab] 4 mg PO DIRECTED #21 tab Transmission Status: Pending to [facility] Referrals: Chanelle Bailey MD [Primary Care Provider] - - Critical Care Critical Care Time: No Attestation: On 04/28/22, the high probability of a clinically significant, sudden or life threatening deterioration of the following system(s) required my full and direct attention, intervention and personal management. The time I documented below is in addition to time spent performing reported procedures but includes the following listed in this critical care notation. Medical Decision Making - Medical Records Medical records reviewed: Yes: I reviewed the patient's medical records. - [place] Inquiry Pt receiving controlled substance: No Vital Signs: 04/28/22 16:46 04/28/22 17:10 Temperature 98.7 F Temperature Source Oral Pulse Rate 115 H Pulse Rate [Right Radial] 127 H Respiratory Rate 24 Blood Pressure [Right Arm] 173/96 H Blood Pressure Mean [Right Arm] 121 Blood Pressure Source [Right Arm] Automatic Cuff Blood Pressure Position [Right Arm] Sitting 02 Sat by Pulse Oximetry 95 96 Oxygen Delivery Method Nasal Cannula Nasal Cannula Oxygen Flow Rate (LPM) 3 3.5 - Lab Data Lab Results 04/28/22 16:50: Specimen Source Left radial, O2 % 5lpm, ABG pH 7.32 L, ABG pCO2 46.7 H, ABG pO2 93.0, ABG HCO3 23.5, ABG Total CO2 25.0, ABG O2 Saturation 97, ABG Base Excess -2.6 L, Wenceslao Test Acceptable 04/28/22 17:00: WBC 7.1, RBC 4.15 L, Hgb 13.3 L, Hct 39.5 L, MCV 95.0 H, MCH 31.9 H, MCHC 33.6, RDW 15.6, Plt Count 396, MPV 7.5, Neut % (Auto) 81.1 H, Lymph % (Auto) 7.9 L, [place] % (Auto) 10.3 H, Eos % (Auto) 0.2, Baso % (Auto) 0.4, Neut # (Auto) 5.8, Lymph # (Auto) 0.6 L, [place] # (Auto) 0.7, Eos # (Auto) 0.0, Baso # (Auto) 0.0 04/28/22 17:00: Sodium 140, Potassium 4.0, Chloride 97 L, Carbon Dioxide 29, Anion Gap 18.0 H, BUN 8 L, Creatinine 0.60 L, Estimated Creat Clear 56, Estimated GFR 136, Est GFR ( Amer) 164, Glucose 146 H, Calcium 6.0 L, Total Bilirubin 1.0, AST 31, ALT 19, Alkaline Phosphatase 91, Troponin I < 0.01, Total Protein 8.2, Albumin 4.5, Globulin 3.7 H, Albumin/Globulin Ratio 1.2 04/28/22 17:00: Lactate 1.3 Result diagrams: 04/28/22 17:00 04/28/22 17:00 Orders (Tests/Meds): ED MEDICATIONS Generic Name Dose Route Start Last Admin Trade Name Freq PRN Reason Stop Dose Admin Sodium Chloride 10 ml 04/28/22 16:50 Sodium Chloride 0.9% 10ml Flush Syringe IV 05/28/22 16:49 NEEDED PRN Maintain IV Site Discontinued Medications Generic Name Dose Route Start Last Admin Trade Name Freq PRN Reason Stop Dose Admin Albuterol/Ipratropium 3 ml 04/28/22 16:52 04/28/22 17:06 Ipratropium/Albuterol 3 Ml Neb IH 04/28/22 16:53 3 ml ONCE ONE Administration Sodium Chloride 1,000 mls @ 999 mls/hr 04/28/22 17:00 04/28/22 17:00 Sod Chlor 0.9% 1000ml Bag IV 04/28/22 18:00 999 mls/hr .Q1H1M DOREEN Administration Methylprednisolone Sodium Succinate 125 mg 04/28/22 18:26 04/28/22 18:49 Methylprednisolone Sod Succ 125mg Vial IV 04/28/22 18:27 125 mg ONCE ONE Administration ORDERS Category Date Time Status XR chest portable Stat Exams 04/28/22 16:50 Taken Troponin I Q3H Lab 04/28/22 20:00 Ordered Troponin I Q3H Lab 04/28/22 23:00 Ordered Blood Culture Stat Micro 04/28/22 17:03 Received - Radiology Data #1 Image(s): Chest Im
[2022-04-28 17:10] VITALS: PULSE 115; PULSE 119; O2SAT 96
[2022-04-28 17:10] LABS: ABG Base Excess -2.6 mmol/L (-2.4-2.3); ABG HCO3 23.5 mmhg (22.0-26.0); ABG Oxygen Saturation 97 % (90-100); ABG PCO2 46.7 mmhg (35.0-45.0); ABG PH 7.32 mmol/L (7.35-7.45); Allen's Test Acceptable
[2022-04-28 17:11] LABS: Source Left Radial
[2022-04-28 17:21] LABS: Basophils % 0.4 % (0.1-2.0); Chloride 97 mmol/L (98-107); Eosinophils % 0.2 % (0.1-12.0); Hematocrit 39.5 % (42.0-52.0); Hemoglobin 13.3 g/dL (14.1-18.0); Lymphocytes # 0.6 K/mm3 (0.7-4.5); Lymphocytes % 7.9 % (10-50); Mean Corpuscular HGB Conc 33.6 g/dL (31.8-35.4); Mean Corpuscular Hemoglobin 31.9 pg (27.0-31.2); Mean Platelet Volume 7.5 fl (7.4-10.4); Monocytes # 0.7 K/mm3 (0.1-1.0); Monocytes % 10.3 % (1.7-9.3); Neutrophils # 5.8 K/mm3 (1.8-7.8); Neutrophils % 81.1 % (37.0-80.0); Platelet Count 396 K/mm3 (142-424); Red Blood Count 4.15 M/mm3 (4.60-6.20); Red Cell Distribution Width 15.6 % (11.5-17.5); Sodium 140 mmol/L (136-145); White Blood Count 7.1 K/mm3 (4.8-10.8)
[2022-04-28 17:24] LABS: Alanine Aminotransferase 19 U/L (12-78); Albumin Level 4.5 g/dl (3.5-5.0); Albumin/Globulin Ratio 1.2 (1.1-1.8); Alkaline Phosphatase 91 U/L (38-126); Aspartate Amino Transferase 31 U/L (17-59); Blood Urea Nitrogen 8 mg/dl (9-20); Carbon Dioxide 29 mmol/L (22.0-30.0); Creatinine Clearance Estimated 56 mL/min (50-200); Estimated Glomerular Filt Rate 136 ml/min (>60); GFR (African American) 164 ML/MIN (>60); Globulin 3.7 g/dL (1.3-3.2); Total Protein,Serum 8.2 g/dl (6.3-8.2)
[2022-04-28 17:25] LABS: Glucose 146 mg/dl (74-100); Lactic Acid 1.3 mmol/L (0.7-2.1)
[2022-04-28 18:11] LABS: Troponin I < 0.01 ng/ml (0.00-0.034)
[2022-04-28 19:24] VITALS: BP 164/78; PULSE 110; RESP 24; TEMP 37.1; O2SAT 96
== END 2022-04-28 19:29 | disposition home or self-care (01) ==
PROVIDERS: Emergency Provider Emergency Medicine; PCP Family Medicine
DX: J18.9 Pneumonia, unspecified organism (principal); J44.1 Chronic obstructive pulmonary disease with (acute) exacerbation; I10 Essential (primary) hypertension; E78.5 Hyperlipidemia, unspecified; F17.210 Nicotine dependence, cigarettes, uncomplicated; Z79.51 Long term (current) use of inhaled steroids; Z99.81 Dependence on supplemental oxygen; Z79.899 Other long term (current) drug therapy; Z88.0 Allergy status to penicillin; Z88.6 Allergy status to analgesic agent; Z88.8 Allergy status to other drugs, medicaments and biological substances; Z91.048 Other nonmedicinal substance allergy status; Z92.21 Personal history of antineoplastic chemotherapy; Z92.3 Personal history of irradiation; Z85.118 Personal history of other malignant neoplasm of bronchus and lung; Z85.05 Personal history of malignant neoplasm of liver; Z83.3 Family history of diabetes mellitus; Z80.9 Family history of malignant neoplasm, unspecified
CPT/HCPCS: 71045; 80053; 82803; 83605; 84484; 85025; 87040; 96361; 96374; 99284

== ENCOUNTER 2022-04-29 13:47 | Inpatient (IN) | payer OTHER, SELFPAY ==
[2022-04-29] VITALS (13 sets, daily range): BP systolic 100–182; BP diastolic 57–108; PULSE 97–122; RESP 20–24; TEMP 36.3–37.1; O2SAT 93–99; BMI 16.6; BMI 18.8
--- NOTE | 2022-04-29 13:56 | XR_ITS ---
FINAL REPORT CLINICAL HISTORY: dyspnea COMPARISON: April 28, 2022 FINDINGS: A single portable view of the chest was obtained. The heart size and pulmonary vascularity are within normal limits. The mediastinum is within normal limits. The lungs are hyperinflated consistent with COPD. There is moderate scarring in the lungs, stable. No acute pulmonary abnormality is identified. The bony thorax is intact. IMPRESSION: No acute cardiopulmonary disease. Hyperinflated lungs consistent with COPD. Reviewed, Interpreted and Dictated by Apollo Rea III, MD Transcribed by Silvana Bush Authenticated and [facility]
[2022-04-29 14:45] LABS: Coronavirus 19, PCR Not Detected (NotDetected); Influenza A, PCR Not Detected (NotDetected); Influenza B, PCR Not Detected (NotDetected)
[2022-04-29 14:49] LABS: Basophils # 0.1 K/mm3 (0-0.2); Basophils % 0.7 % (0.1-2.0); Eosinophils % 0.5 % (0.1-12.0); Hematocrit 40.7 % (42.0-52.0); Lymphocytes # 0.5 K/mm3 (0.7-4.5); Mean Corpuscular HGB Conc 31.8 g/dL (31.8-35.4); Mean Corpuscular Hemoglobin 31.3 pg (27.0-31.2); Mean Corpuscular Volume 98.4 fl (80-94); Mean Platelet Volume 7.4 fl (7.4-10.4); Monocytes # 0.6 K/mm3 (0.1-1.0); Monocytes % 7.6 % (1.7-9.3); Neutrophils % 85.2 % (37.0-80.0); Platelet Count 444 K/mm3 (142-424); Red Blood Count 4.14 M/mm3 (4.60-6.20); Red Cell Distribution Width 15.5 % (11.5-17.5); White Blood Count 8.3 K/mm3 (4.8-10.8)
[2022-04-29 14:52] LABS: MANUAL DIFFERENTIAL MANUAL DIFFERENTIAL (MANUAL DIFF)
[2022-04-29 14:54] LABS: Chloride 96 mmol/L (98-107); Potassium 4.2 mmoL/L (3.5-5.1); Sodium 139 mmol/L (136-145)
[2022-04-29 14:54] LABS: VBG Base Excess -2.1 mmol/L (-2.4-2.3); VBG HCO3 26.9 mmol/L (23-30); VBG Oxygen Saturation 78.4 % (50-70); VBG PCO2 81.2 mmol/L (35-51); VBG PO2 48.7 mmol/L (28-40); VBG Total CO2 29.4 mmol/L (23-27)
[2022-04-29 14:56] LABS: Blood Urea Nitrogen 11 mg/dl (9-20); Creatinine Clearance Estimated 56 mL/min (50-200); Estimated Glomerular Filt Rate 136 ml/min (>60); GFR (African American) 164 ML/MIN (>60)
[2022-04-29 14:56] LABS: VBG PH 7.14 mmol/L (7.31-7.41)
[2022-04-29 14:57] LABS: Alanine Aminotransferase 25 U/L (12-78); Albumin Level 4.3 g/dl (3.5-5.0); Albumin/Globulin Ratio 1.1 (1.1-1.8); Alkaline Phosphatase 96 U/L (38-126); Anion Gap 13.2 mEq/L (5-15); Aspartate Amino Transferase 40 U/L (17-59); Bilirubin,Total 0.5 mg/dl (0.2-1.3); Calcium 6.1 mg/dl (8.4-10.2); Carbon Dioxide 34 mmol/L (22.0-30.0); Globulin 3.9 g/dL (1.3-3.2); Glucose 289 mg/dl (74-100); Total Protein,Serum 8.2 g/dl (6.3-8.2)
--- NOTE | 2022-04-29 14:57 | PC.NURSE ---
RT called blood gas results. made aware.
--- NOTE | 2022-04-29 15:03 | PC.NURSE ---
Called RT for BIPAP; and they are aware of DUO-NEB order
[2022-04-29 15:16] LABS: Troponin I < 0.01 ng/ml (0.00-0.034)
--- NOTE | 2022-04-29 15:17 | PC.NURSE ---
RT HERE PLACING BIPAP ON PT AND DOING A DUONED
--- NOTE | 2022-04-29 15:23 | PC.NURSE ---
EMERITA AKINS on phone with Dr. Tomas
--- NOTE | 2022-04-29 15:23 | PC.NURSE ---
speaking with Dr. Tomas
--- NOTE | 2022-04-29 15:24 | HMH.EDGENADL ---
ED Disposition Clinical Impression: COPD exacerbation Disposition: Admitted As Inpatient Condition on Discharge: Good - Critical Care Critical Care Time: Yes Attestation: On 04/29/22, the high probability of a clinically significant, sudden or life threatening deterioration of the following system(s) required my full and direct attention, intervention and personal management. The time I documented below is in addition to time spent performing reported procedures but includes the following listed in this critical care notation. Total Critical Care Time: 30 Vital system(s) involved:: Respiratory Failure My critical care processes included: Assessment & monitoring of V/S, Initial and Re-exams, Data Review/Interpretation Medical Decision Making - Medical Records Medical records reviewed: Yes: I reviewed the patient's medical records. - [place] Inquiry Pt receiving controlled substance: No Vital Signs: 04/29/22 13:46 04/29/22 14:10 04/29/22 14:30 Temperature 98.7 F Temperature Source Oral Pulse Rate 119 H 121 H Pulse Rate [Left Radial] 119 H Respiratory Rate 24 Blood Pressure 178/108 H 182/93 H Blood Pressure [Right Arm] 178/108 H Blood Pressure Mean 116 122 Blood Pressure Mean [Right Arm] 131 Blood Pressure Source [Right Arm] Automatic Cuff Blood Pressure Position [Right Arm] Sitting 02 Sat by Pulse Oximetry 93 L 95 95 Oxygen Delivery Method Nasal Cannula Oxygen Flow Rate (LPM) 4 04/29/22 15:31 04/29/22 15:43 04/29/22 16:00 Temperature Temperature Source Pulse Rate 116 H 122 H Pulse Rate [Left Radial] Respiratory Rate Blood Pressure 155/80 H Blood Pressure [Right Arm] Blood Pressure Mean 105 Blood Pressure Mean [Right Arm] Blood Pressure Source [Right Arm] Blood Pressure Position [Right Arm] 02 Sat by Pulse Oximetry 96 Oxygen Delivery Method BiPAP Oxygen Flow Rate (LPM) 04/29/22 16:01 04/29/22 16:31 Temperature Temperature Source Pulse Rate 107 H 108 H Pulse Rate [Left Radial] Respiratory Rate Blood Pressure 157/88 H 123/65 Blood Pressure [Right Arm] Blood Pressure Mean 111 94 Blood Pressure Mean [Right Arm] Blood Pressure Source [Right Arm] Blood Pressure Position [Right Arm] 02 Sat by Pulse Oximetry 99 98 Oxygen Delivery Method Oxygen Flow Rate (LPM) - Lab Data Lab results reviewed: Yes: I reviewed the patient's lab results. Lab Results 04/29/22 13:56: VBG pH 7.14 L, VBG pCO2 81.2 H, VBG pO2 48.7 H, VBG HCO3 26.9, VBG Total CO2 29.4 H, VBG O2 Saturation 78.4 H, VBG Base Excess -2.1 04/29/22 14:40: SARS-CoV-2 (PCR) Not detected, Influenza A Untype (PCR) Not detected, Influenza Type B (PCR) Not detected 04/29/22 14:44: WBC 8.3, RBC 4.14 L, Hgb 13.0 L, Hct 40.7 L, MCV 98.4 H, MCH 31.3 H, MCHC 31.8, RDW 15.5, Plt Count 444 H, MPV 7.4, Neut % (Auto) 85.2 H, Lymph % (Auto) 6.0 L, [place] % (Auto) 7.6, Eos % (Auto) 0.5, Baso % (Auto) 0.7, Neut # (Auto) 7.0, Lymph # (Auto) 0.5 L, [place] # (Auto) 0.6, Eos # (Auto) 0.0, Baso # (Auto) 0.1, Total Counted 100, Neutrophils % (Manual) 86 H, Lymphocytes % (Manual) 6 L, Monocytes % (Manual) 8, Platelet Estimate Normal 04/29/22 14:44: Sodium 139, Potassium 4.2, Chloride 96 L, Carbon Dioxide 34 H, Anion Gap 13.2, BUN 11 D, Creatinine 0.60 L, Estimated Creat Clear 56, Estimated GFR 136, Est GFR ( Amer) 164, Glucose 289 H D, Calcium 6.1 L, Total Bilirubin 0.5, AST 40 D, ALT 25 D, Alkaline Phosphatase 96, Troponin I < 0.01, Total Protein 8.2, Albumin 4.3, Globulin 3.9 H, Albumin/Globulin Ratio 1.1 Result diagrams: 04/29/22 14:44 04/29/22 14:44 Orders (Tests/Meds): ED MEDICATIONS Generic Name Dose Route Start Last Admin Trade Name Freq PRN Reason Stop Dose Admin Acetaminophen 650 mg 04/29/22 17:20 Acetaminophen 325mg Tab PO 05/29/22 17:19 Q4HP PRN Fever or Mild Pain Albuterol/Ipratropium 3 ml 04/30/22 00:00 Ipratropium/Albuterol 3 Ml [facility] 05/30/
--- NOTE | 2022-04-29 15:27 | PC.NURSE ---
Spoke with Shoshana in Care management regarding patient admission
--- NOTE | 2022-04-29 15:29 | PC.NURSE ---
Resp notified staff pt was refusing bipap. at bedside discussing care with pt at this time
--- NOTE | 2022-04-29 15:29 | PC.NURSE ---
PT REFUSES BIPAP MD SPEAKING WITH PT
[2022-04-29 16:17] LABS: Lymphocytes % 6 % (10-50); Monocytes % 8 % (2-9); Neutrophils % 86 % (42-76); Platelet Estimate Normal; Total Cells Counted 100
--- NOTE | 2022-04-29 16:47 | PC.NURSE ---
Called report to Michelle Saeed
--- NOTE | 2022-04-29 16:47 | PC.NURSE ---
Called RT to inform of need for assistance getting pt transported with bipap to room upstairs.
--- NOTE | 2022-04-29 17:06 | PC.NURSE ---
Pt arrived to the floor at this time
--- NOTE | 2022-04-29 17:41 | HMH.HP ---
*Admission Date: 04/29/22 *Chief complaint: SOA *History of present illness: Mr. Madera is a 66-year-old male past medical history for COPD on 2 L nasal cannula at baseline who presented to the ER with worsening shortness of breath and increased work of breathing. States he saw his primary care just yesterday and they started him on antibiotics and steroids. Unfortunately has not gotten any better/seen any improvement. Of note has had worsening shortness of breath over the past week. He has been having increased work of breathing at home per his . On arrival to the ER is hemodynamically stable, having increased work of breathing. Initial work-up showed hyperinflation on chest imaging. VBG with hypercarbia and respiratory acidosis. Was initiated on BiPAP, given duo nebs. Admitted for acute on chronic hypoxemic respiratory failure. Arrival to the floor, patient's vitals including tachypnea, tachycardia, and suspected respiratory infection with worsening respiratory failure met criteria for sepsis. Sepsis work-up initiated including cultures and antibiotics. Patient responsive but not a good historian. Appears fatigued due to work of breathing. History obtained from at bedside. Satting mid 90s on 50% FiO2 via BiPAP. [facility] History I have reviewed the patient's past medical history: Yes Medical History: Reports:: Asthma, Cancer (lung with mets to liver), Chronic Obstructive Pulmonary Disease (COPD), Home Oxygen, Hyperlipidemia, Hypertension, Lung Disease Denies:: Diabetes Mellitus Type 1, Diabetes Mellitus Type 2, MRSA *Have you ever received a pneumonia vaccine?: Yes *Have you received a flu vaccine this season?: Yes Other Medical History: Reports: Arthritis, Chemotherapy, Radiation Therapy, Sinus Problems Other Surgeries: Yes: Sinus Surgery, Other Amputation: No Fractures: No - *Social History Smoking Status: Current every day smoker Tobacco Type: cigarettes # Packs/Day (cigarettes): 1 Alcohol Intake: current Alcohol Intake Frequency:: holidays/special occasions only Substance Use Type: denies use *Occupational Status:: retired Housing: house Household Members: spouse *Travel in the last 8 weeks: None Family Hx:: Cancer, Diabetes Review of Systems - Review of Systems Review of systems:: pertinent systems reviewed and negative unless documented below (14 point review of systems performed, pertinent positives and negatives as per HPI) Meds Home Medications Medication Instructions Recorded Confirmed Type atorvastatin 10 mg tablet 10 mg PO DAILY 05/20/19 04/17/22 History cyclobenzaprine 10 mg tablet 10 mg PO TID 05/20/19 04/17/22 History losartan 50 mg tablet 50 mg PO DAILY 05/20/19 04/17/22 History Albuterol Sulfate [Proair Hfa 1 puff INHALATION NEEDED PRN 06/13/19 04/17/22 History 90mcg/puff Inh] Clopidogrel Bisulfate [Plavix 75mg 75 mg PO DAILY 06/15/19 04/17/22 History Tab] famotidine 40 mg tablet 40 mg PO DAILY 10/27/19 04/17/22 History fluticasone fur. 100 mcg-umeclid 1 puff INHALATION DAILY 10/22/20 04/17/22 History 62.5 mcg-vilant 25 mcg inhalat.powder ondansetron HCl 8 mg tablet 8 mg PO Q8H PRN 10/22/20 04/17/22 History prochlorperazine maleate 10 mg 10 mg PO DAILY PRN tab 10/22/20 04/17/22 History tablet duloxetine 60 mg capsule,delayed 60 mg PO DAILY cap 02/13/22 04/17/22 History release Doxycycline Monohydrate 100 mg PO Q12 #20 tab 04/28/22 Rx [Doxycycline Wells 100mg Tab] methylPREDNISolone [Medrol 4mg 4 mg PO DIRECTED #21 tab 04/28/22 Rx tab] Allergies Allergy/AdvReac Type Severity Reaction Status Date / Time silver Allergy Severe Rash Verified 04/17/22 08:53 [From Tegaderm AG Mesh] Penicillins [PENICILLINS] Allergy Mild Verified 04/17/22 08:53 amitriptyline AdvReac Intermediate gi upset Verified 04/17/22 08:53 adhesive AdvReac Verified 04/29/22 19:39 hydrocodone AdvReac Verified 04/17/22 08:53 Exam Vital signs and Labs for Last 24
--- NOTE | 2022-04-29 18:33 | PC.NURSE ---
Dr. Tomas made aware that pt triggered for severe sepsis. Lactic ordered as well as blood cx's. Pt is on abx.
[2022-04-29 19:37] LABS: Lactic Acid 1.2 mmol/L (0.7-2.1)
--- NOTE | 2022-04-29 19:41 | PC.NURSE ---
Pt's also unsure of correct meds and doses in order to do med req at this time.
[2022-04-30] VITALS (7 sets, daily range): BP systolic 121–140; BP diastolic 68–89; PULSE 97–111; RESP 19–24; TEMP 36.5–36.7; O2SAT 84–100; BMI 16.5
[2022-04-30 07:13] LABS: Chloride 99 mmol/L (98-107); Potassium 4.2 mmoL/L (3.5-5.1); Sodium 141 mmol/L (136-145)
[2022-04-30 07:15] LABS: Alanine Aminotransferase 20 U/L (12-78); Aspartate Amino Transferase 36 U/L (17-59); Blood Urea Nitrogen 15 mg/dl (9-20); Creatinine Clearance Estimated 55 mL/min (50-200); Estimated Glomerular Filt Rate 136 ml/min (>60); GFR (African American) 164 ML/MIN (>60)
[2022-04-30 07:16] LABS: Albumin/Globulin Ratio 1.2 (1.1-1.8); Alkaline Phosphatase 82 U/L (38-126); Anion Gap 12.2 mEq/L (5-15); Bilirubin,Total 0.4 mg/dl (0.2-1.3); Calcium 6.4 mg/dl (8.4-10.2); Carbon Dioxide 34 mmol/L (22.0-30.0); Globulin 3.4 g/dL (1.3-3.2); Glucose 156 mg/dl (74-100); Magnesium 2.1 mg/dl (1.6-2.3); Total Protein,Serum 7.4 g/dl (6.3-8.2)
[2022-04-30 07:24] LABS: Basophils % 0.2 % (0.1-2.0); Lymphocytes # 0.4 K/mm3 (0.7-4.5); Neutrophils # 6.7 K/mm3 (1.8-7.8)
[2022-04-30 07:32] LABS: Hematocrit 36.3 % (42.0-52.0); Hemoglobin 11.7 g/dL (14.1-18.0); Lymphocytes % 5.7 % (10-50); Mean Corpuscular HGB Conc 32.3 g/dL (31.8-35.4); Mean Corpuscular Hemoglobin 31.4 pg (27.0-31.2); Mean Corpuscular Volume 97.4 fl (80-94); Mean Platelet Volume 7.8 fl (7.4-10.4); Monocytes # 0.6 K/mm3 (0.1-1.0); Monocytes % 7.9 % (1.7-9.3); Neutrophils % 86.1 % (37.0-80.0); Platelet Count 392 K/mm3 (142-424); Red Blood Count 3.73 M/mm3 (4.60-6.20); Red Cell Distribution Width 15.6 % (11.5-17.5); White Blood Count 7.7 K/mm3 (4.8-10.8)
[2022-04-30 07:34] LABS: MANUAL DIFFERENTIAL MANUAL DIFFERENTIAL (MANUAL DIFF)
--- NOTE | 2022-04-30 09:53 | PC.NURSE ---
Placed pt on 3 L NC @ 0745 this am, for pt to attempt to eat, RT agreed. Pt a&o x 4 this am and sats 97%.
[2022-04-30 09:55] LABS: Eosinophils % 1 % (0-3); Lymphocytes % 15 % (10-50); Monocytes % 3 % (2-9); Neutrophils % 81 % (42-76); Platelet Estimate Normal; RBC Morphology Normal; Total Cells Counted 100
[2022-04-30 09:56] LABS: Intact Parathyroid Hormone 6.3 pg/mL (7.5-53.5)
--- NOTE | 2022-04-30 10:18 | P.CONPHA_ITS ---
[facility] Pharmacy VTE Monitoring - Patient Demographics Admission date: 04/29/22 Report Date: 04/30/22 Time: 10:18 Allergies/Adverse Reactions: Patient Allergies silver [From Tegaderm AG Mesh] Allergy (Severe, Verified 04/17/22 08:53) Rash Penicillins [PENICILLINS] Allergy (Mild, Verified 04/17/22 08:53) amitriptyline Adverse Reaction (Intermediate, Verified 04/17/22 08:53) gi upset adhesive Adverse Reaction (Verified 04/29/22 19:39) hydrocodone Adverse Reaction (Verified 04/17/22 08:53) Height: 1.78 m Weight: 52.571 kg Patient Problems: Current Active Problems Acute exacerbation of chronic obstructive airways disease (Acute) COPD exacerbation (Acute) Acute and chronic respiratory failure with hypercapnia (Acute) Essential hypertension (Chronic) - VTE Risk Labs: VTE Related Lab Results Hgb 11.7 g/dL (14.1-18.0) L 04/30/22 06:30 Hct 36.3 % (42.0-52.0) L 04/30/22 06:30 Plt Count 392 K/mm3 (142-424) 04/30/22 06:30 BUN 15 mg/dl (9-20) D 04/30/22 06:30 Creatinine 0.60 mg/dl (0.66-1.25) L 04/30/22 06:30 Estimated Creat Clear 55 mL/min (50-200) 04/30/22 06:30 - Prophylaxis VTE Prophylaxis Ordered?: Yes Types of VTE Prophylaxis: TEDS Knee High Location of Applied Device: Bilateral Lower Extremeties
--- NOTE | 2022-04-30 10:32 | PC.NURSE ---
RESP CARE NOTE: Sputum induction performed for sputum specimen. Patient states he can't cough anything out at this moment, and we instructed patient on obtaining a specimen if one is produced. Also, instructed patient to notify NSG if a specimen is obtained.
--- NOTE | 2022-04-30 10:38 | HMH.PHAINT ---
MEDICATION RECONCILIATION COMPLETED ON PATIENT USING EXTERNAL FILL HISTORY FROM PHARMACY AND LISTS FROM ED/ONCOLOGY OFFICES. -VICENTA WATTD
--- NOTE | 2022-04-30 12:19 | PC.NURSE ---
Sputum sent to lab.
--- NOTE | 2022-04-30 14:36 | HMH.DCSUM ---
General - General Admission date:: 04/29/22 Discharge date: 04/30/22 HPI HPI: Mr. Madera is a 66-year-old male past medical history for COPD on 2 L nasal cannula at baseline who presented to the ER with worsening shortness of breath and increased work of breathing. States he saw his primary care just yesterday and they started him on antibiotics and steroids. Unfortunately has not gotten any better/seen any improvement. Of note has had worsening shortness of breath over the past week. He has been having increased work of breathing at home per his . On arrival to the ER is hemodynamically stable, having increased work of breathing. Initial work-up showed hyperinflation on chest imaging. VBG with hypercarbia and respiratory acidosis. Was initiated on BiPAP, given duo nebs. Admitted for acute on chronic hypoxemic respiratory failure. Arrival to the floor, patient's vitals including tachypnea, tachycardia, and suspected respiratory infection with worsening respiratory failure met criteria for sepsis. Sepsis work-up initiated including cultures and antibiotics. Patient responsive but not a good historian. Appears fatigued due to work of breathing. History obtained from at bedside. Satting mid 90s on 50% FiO2 via BiPAP. Hospital Course Hospital Course: 66-year-old male with significant history of COPD. On 2 L nasal cannula continuously at home. Increased oxygen requirement and work of breathing. Failed initiation of outpatient therapy. Admitted for worsening hypercarbia and respiratory failure. Problems addressed as follows: COPD exacerbation Acute on chronic hypoxemic respiratory failure with hypercapnia. -Initiated on community-acquired pneumonia antibiotics empirically. Drastically improved overnight on BiPAP. Plan to continue antibiotics for empiric course. Transition to prednisone oral steroids to complete 5-day course. Denies good benefit from Trelegy inhaler at home. Will transition to Breztri, samples provided. Medically stable for discharge home. We will plan for outpatient follow-up with pulmonology. Needs close follow-up with primary care. Given patient's hypoxia, we will set him up with home O2 and nebulizer. HTN - present on admission, continued home meds. Resume at discharge. Patient's tobacco use complicates his COPD. We will send nicotine patches at discharge. Medically stable for discharge home. Close follow-up in the outpatient setting. Objective Vital signs: Temp Pulse Resp BP Pulse Ox 97.8 F 106 H 22 138/89 98 06/22/22 10:46 04/30/22 12:26 04/30/22 10:46 04/30/22 10:46 04/30/22 12:26 Narrative: - Constitutional minimal distress, thin, chronically ill appearing, in bedside chair - *Routine HEENT Exam Head: Present: normocephalic Eye: Present: EOMI, PERRL ENT: Present: mucous membranes moist - *Routine Neck Exam Present: supple. Absent: lymphadenopathy - *Routine Respiratory Exam Present: accessory muscle use, wheezes, distant breath sounds, diminished air movement. Absent: crackles - *Routine Cardiovascular Exam Present: tachycardia - *Routine Abdominal Exam Present: soft, normoactive bowel sounds. Absent: tenderness - *Routine Extremities Exam Absent: cyanosis, clubbing, edema; Presence of thready pulses in legs, feet cool (baseline). - *Routine Skin Exam Present: warm. Absent: rash - *Routine Neurological Exam Present: alert, oriented x 3. Results Labs on day of discharge: Labs from last 24 hours 04/30/22 04/30/22 04/30/22 06:30 06:30 06:30 WBC 7.7 RBC 3.73 L Hgb 11.7 L Hct 36.3 L MCV 97.4 H MCH 31.4 H MCHC 32.3 RDW 15.6 Plt Count 392 MPV 7.8 Neut % (Auto) 86.1 H Lymph % (Auto) 5.7 L Mellette % (Auto) 7.9 Eos % (Auto) 0.0 L Baso % (Auto) 0.2 Neut # (Auto) 6.7 Lymph # (Auto) 0.4 L Mellette # (Auto) 0.6 Eos # (Auto) 0.0 Baso # (Auto) 0.0 Total Counted 1
--- NOTE | 2022-04-30 14:59 | CARE MANAGER ---
Patient will require a nebulazer machine per Dr. Tomas. Patient currently has home O2 @ 2L through [facility]. Patient Choice signed and order/clinical faxed.
--- NOTE | 2022-04-30 15:26 | HMH.PHAINT ---
DISCHARGE MEDICATION COUNSELING PROVIDED. DISCUSSED STOPPING THE FOLLOWING: ZOFRAN, PROCHLORPERAZINE, TRELEGY, MEDROL, DOXYCYCLINE. DISCUSSED THE FOLLOWING NEW MEDICATIONS: -DUONEBS (TAKE EVERY 6 HOURS NEEDED FOR SHORTNESS OF BREATH, MAY CAUSE NERVOUSNESS) -PREDNISONE (TAKE DAILY, RECOMMEND WITH FOOD, EARLIER IN THE DAY, MAY CAUSE UPSET STOMACH, MAY KEEP YOU UP) -NICOTINE PATCH (APPLY ONE PATCH DAILY, TO UPPER ARM AFTER REMOVING PREVIOUS PATCH, MAY CAUSE SKIN IRRITATION) -AZITHROMYCIN (TAKE DAILY FOR 3 DAYS, TAKE WITH OR WITHOUT FOOD, MAY CAUSE DIARRHEA, UPSET STOMACH) -CEFDINIR (TAKE TWICE DAILY FOR 5 DAYS, TAKE WITH FOOD, MAY CAUSE DIARRHEA, UPSET STOMACH) PATIENT ENDORSED NO QUESTIONS AT THIS TIME.
--- NOTE | 2022-05-01 13:40 | CARE MANAGER ---
Contacted patient related to hospital discharge. Patient states he still feels bad but he feels better than yesterday. He was able to obtain all his medications an dis aware of follow up appointments. he denies any questions or concerns at this time. RAISA Underwood
== END 2022-04-30 16:55 | disposition home or self-care (01) | DRG 189 ==
LOC: ER 14:15 → 2ND 17:11
PROVIDERS: Admitting Provider Internal Medicine Adolescent Medicine; Emergency Provider Student in an Organized Health Care Education/Training Program; PCP Family Medicine; Visit Provider Internal Medicine Adolescent Medicine
DX: J96.22 Acute and chronic respiratory failure with hypercapnia (principal); J44.1 Chronic obstructive pulmonary disease with (acute) exacerbation; C34.90 Malignant neoplasm of unspecified part of unspecified bronchus or lung; C78.7 Secondary malignant neoplasm of liver and intrahepatic bile duct; J44.9 Chronic obstructive pulmonary disease, unspecified; I10 Essential (primary) hypertension; Z99.81 Dependence on supplemental oxygen; E78.5 Hyperlipidemia, unspecified; M19.90 Unspecified osteoarthritis, unspecified site; F17.210 Nicotine dependence, cigarettes, uncomplicated
CPT/HCPCS: 36415; 71045; 80053; 82803; 83605; 83735; 83970; 84484; 85007; 85025; 87040; 87070; 87077; 87186; 87205; 94640; 94660; 99285; C9803; J0456; J0696; U0003; U0005

== ENCOUNTER → 2022-05-13 09:01 | Outpatient (CLI) | payer MEDICARE, OTHER, SELFPAY ==
--- NOTE | 2022-05-13 09:12 | CT_ITS ---
FINAL REPORT CLINICAL HISTORY: LUNG CANCER 3 month followup COMPARISON: December 11, 2021 and March 10, 2022 FINDINGS: CT OF THE ABDOMEN AND PELVIS WITH CONTRAST Axial CT images of the abdomen and pelvis were obtained after the administration of oral and iv contrast. Coronal reformatted images were also obtained and reviewed.This study was performed with techniques to keep radiation doses as low as reasonably achievable (ALARA). Individualized dose reduction techniques using automated exposure control or adjustment of mA and/or kV according to the patient's size were employed. Abdomen: The heart is normal in size. There are small stable hepatic cysts. The spleen is unremarkable. No adrenal mass is present. The pancreas has an unremarkable appearance. There are stable small right renal cysts. The aorta is normal in caliber. There is no free fluid or adenopathy. There is moderate vascular calcification. Pelvis: The appendix normal. There is mild urinary bladder wall thickening which is likely inflammatory. There is no evidence of mass or adenopathy. There is no evidence of bowel obstruction. IMPRESSION: No evidence of acute intra-abdominal process. Stable small hepatic cysts. Stable small right renal cysts. Reviewed, Interpreted and Dictated by Apollo Rea III, MD Transcribed by Kae Starkey Authenticated and [facility]
--- NOTE | 2022-05-13 09:28 | CT_ITS ---
FINAL REPORT CLINICAL HISTORY: LUNG CANCER. 3 month followup COMPARISON: December 11, 2021 and March 10, 2022 FINDINGS: CT CHEST W/CONTRAST Axial CT images of the chest were obtained with contrast. Coronal reformatted images were also obtained. This study was performed with techniques to keep radiation doses as low as reasonably achievable, (ALARA). Individualized dose reduction techniques using automated exposure control or adjustment of mA and/or KV according to the patient's size were employed. There are small mediastinal lymph nodes. There is no evidence of hilar mass or adenopathy.No axillary mass or adenopathy is identified. There is wall thickening of the mid thoracic esophagus, favor inflammatory. There is new moderate pericardial effusion with pericardial thickening. On the lung window images there is moderate to severe changes of emphysema. There is bilateral apical scarring. There are persistent nodular opacities in the right lung base measuring up to 13 mm which is stable in size. There are partially improved posterior left upper lobe nodular opacities. The largest nodule posteriorly measures 23 mm and previously measured 26 mm. There is a calcified granuloma in the left lower lobe. There is right perihilar scarring/fibrosis which is stable. No new pulmonary abnormality is identified. IMPRESSION: New moderate pericardial effusion. Stable right lower lobe nodular opacities, favor post treatment change. Partially improved posterior left upper lobe nodules. No new pulmonary abnormality. Reviewed, Interpreted and Dictated by Apollo Rea III, MD Transcribed by Kae Starkey Authenticated and [facility]
== END ==
PROVIDERS: PCP Internal Medicine Adolescent Medicine; Visit Provider Internal Medicine Medical Oncology
DX: C34.31 Malignant neoplasm of lower lobe, right bronchus or lung (principal)
CPT/HCPCS: 71260; 74177; Q9967

== ENCOUNTER → 2022-05-15 13:46 | Outpatient (CLI) | payer MEDICARE, SELFPAY ==
[2022-05-15 14:16] LABS: ABG Base Excess 3.2 mmol/L (-2.4-2.3); ABG HCO3 26.9 mmhg (22.0-26.0); ABG Oxygen Saturation 96 % (90-100); ABG PCO2 37.9 mmhg (35.0-45.0); ABG PH 7.47 mmol/L (7.35-7.45); ABG PO2 84.2 mmhg (80-100); ABG TCO2 28.1 mmhg (23-27)
[2022-05-15 14:18] LABS: Oxygen 3LPM %; Source R BRACHIAL
== END ==
PROVIDERS: PCP Internal Medicine Adolescent Medicine; Visit Provider Internal Medicine Pulmonary Disease
DX: J44.9 Chronic obstructive pulmonary disease, unspecified (principal)
CPT/HCPCS: 82803

== ENCOUNTER → 2022-05-20 13:21 | Outpatient (CLI) | payer MEDICARE, OTHER, SELFPAY ==
--- NOTE | 2022-05-20 13:24 | MR_ITS ---
FINAL REPORT CLINICAL HISTORY: LUNG CANCER. DIZZINESS, SYNCOPE AND FALLING FREQUENTLY. HEADACHE [id number]. [facility]. EXAM WAS SUPPOSE TO BE DONE WITH AND WITHOUT BUT DONE WITHOUT BECAUSE PATIENT WAS UNABLE TO LAY ON BACK. EXAM IS ALSO LIMITED BECAUSE PATIENT WAS UNABLE TO LAY ON BACK. COMPARISON: 10/05/2020 FINDINGS: Multi planar MR imaging was obtained through the brain without contrast. There is mild diffuse cortical atrophy. There is mild increased signal in the periventricular white matter consistent with chronic ischemia. The midline structures appear intact. There is no evidence of Chiari malformation. On diffusion-weighted images there is no evidence of restricted diffusion. The visualized paranasal sinuses demonstrate normal signal voids. The seventh and eighth nerve root complexes are intact. IMPRESSION: No acute intra-axial abnormality. Reviewed, Interpreted and Dictated by Kar Bowden MD Transcribed by Bre rGoss Authenticated and [facility]
--- NOTE | 2022-05-20 15:08 | CA_ITS ---
APPROVED REPORT EXAM: Comprehensive 2D, Doppler, and color-flow Echocardiogram Subcontract Manager: Silvia Ortiz RDCS Ht: 5 ft 10 in Wt: 116lbs BSA: 1.66 BP: 106/62 mmHg Indications: LUNG CA,COPD,SOA 2D Dimensions LVOT 1.55 cm (M/F) 1.5-2.5 M-Mode Dimensions RVDd 1.45 cm (0.9-2.6) LA Diam 2.94 cm (1.9-4.0) LVDd 4.13 cm (3.5-5.7) Ao Diam 2.80 cm (2.0-3.7) LVDs 3.46 cm (3.5-5.7) IVSd 0.58 cm (0.6-1.1) PWd 0.64 cm (0.6-1.1) EF (Teich) 34.40% FS 16.20% EDV (Teich) 75.50 mL TAPSE 1.58 (<1.7) ESV (Teich) 49.50 mL LV Diastology E Decel Time 193.00 (160-240 msec) E/A Ratio 0.9 MED E' 10.80 (< 7 cm/sec) E'/MED E' Ratio 6.23 (>14) LAT E' 8.90 (<10 cm/sec) E/LAT E' Ratio 7.56 (>14) Mitral Valve MV E Max David. 67.00 (40-130 cm/s) MV A Velocity 77.00 (40-130 cm/s) E/A Ratio 0.87 MV Decel. Time 193.00 (160-240 ms) MV PHT 57.00 ms Tricuspid Valve TR P. Velocity 313.00 cm/s RAP Estimate 10.00 mmHg RVSP 49.20 mmHg Left Ventricle Left atrium is mildly enlarged, left ventricle is normal size mild concentric left ventricular hypertrophy, estimated ejection fraction of 55% with no regional wall motion abnormality, diastolic parameters are inconclusive. Right Ventricle Right atrium and right ventricle mild enlarged with normal contractility. Aortic Valve Aortic valve is thickened and calcified without aortic stenosis or aortic insufficiency. Mitral Valve Mitral valve leaflets are minimally thickened, there is no mitral regurgitation. Tricuspid Valve Tricuspid valve grossly normal, there is moderate tricuspid regurgitation, calculated right ventricular systolic pressure is 49 mmHg. Pulmonic Valve Pulmonic valve is poorly visualized. Great Vessels Aortic root is normal size. Inferior vena cava is poorly visualized. Pericardium Small pericardial effusion anterior echo-free space seen. Conclusion 1. Biatrial enlargement, normal left ventricular size, mild concentric left ventricular hypertrophy, estimated ejection fraction 55% with no regional wall motion abnormality, diastolic parameters are inconclusive. 2. Mildly enlarged right ventricle with normal contractility. 3. Mild mitral and moderate tricuspid regurgitation, calculated right ventricular systolic pressure 49 mmHg. 4. Small pericardial effusion anterior echo-free space seen. 5. Inferior vena cava is poorly visualized. Electronically signed by : Zenon Holguin MD 05/20/2022 19:45:48
== END ==
PROVIDERS: PCP Internal Medicine Adolescent Medicine; Visit Provider Internal Medicine Medical Oncology
DX: C34.31 Malignant neoplasm of lower lobe, right bronchus or lung (principal); I31.3 Pericardial effusion (noninflammatory)
CPT/HCPCS: 70551; 93306

== ENCOUNTER → 2022-05-28 09:50 | Outpatient (CLI) | payer MEDICARE, SELFPAY | PROVIDERS: PCP Internal Medicine Adolescent Medicine; Visit Provider Internal Medicine Pulmonary Disease | DX: R06.09 Other forms of dyspnea (principal) | CPT/HCPCS: 94010; 94618 ==

== ENCOUNTER 2022-05-29 09:36 | Outpatient (CLI) | payer MEDICARE, SELFPAY ==
[2022-05-29 09:40] VITALS: BMI 16.6
[2022-05-29 10:06] LABS: Alanine Aminotransferase 17 U/L (12-78); Albumin Level 3.5 g/dl (3.5-5.0); Albumin/Globulin Ratio 1.1 (1.1-1.8); Alkaline Phosphatase 88 U/L (38-126); Anion Gap 10.8 mEq/L (5-15); Aspartate Amino Transferase 25 U/L (17-59); Blood Urea Nitrogen 8 mg/dl (9-20); Carbon Dioxide 34 mmol/L (22.0-30.0); Chloride 99 mmol/L (98-107); Creatinine Clearance Estimated 55 mL/min (50-200); Estimated Glomerular Filt Rate 135 ml/min (>60); GFR (African American) 164 ML/MIN (>60); Globulin 3.2 g/dL (1.3-3.2); Glucose 120 mg/dl (74-100); Potassium 3.8 mmoL/L (3.5-5.1); Sodium 140 mmol/L (136-145); Total Protein,Serum 6.7 g/dl (6.3-8.2)
[2022-05-29 10:07] LABS: Basophils % 0.5 % (0.1-2.0); Bilirubin,Total < 0.1 mg/dl (0.2-1.3); Eosinophils # 0.3 K/mm3 (0.0-0.4); Eosinophils % 5.1 % (0.1-12.0); Hematocrit 32.2 % (42.0-52.0); Hemoglobin 10.3 g/dL (14.1-18.0); Lymphocytes # 0.8 K/mm3 (0.7-4.5); Lymphocytes % 16.6 % (10-50); Mean Corpuscular HGB Conc 31.9 g/dL (31.8-35.4); Mean Corpuscular Hemoglobin 30.4 pg (27.0-31.2); Mean Corpuscular Volume 95.2 fl (80-94); Monocytes # 0.3 K/mm3 (0.1-1.0); Monocytes % 6.7 % (1.7-9.3); Neutrophils # 3.5 K/mm3 (1.8-7.8); Neutrophils % 71.1 % (37.0-80.0); Platelet Count 705 K/mm3 (142-424); Red Blood Count 3.38 M/mm3 (4.60-6.20); Red Cell Distribution Width 15.6 % (11.5-17.5); White Blood Count 4.9 K/mm3 (4.8-10.8)
--- NOTE | 2022-05-29 10:07 | PC.NURSE ---
1007-Perla Hinson mlt called Rn at 1007 to report CAlcium 5.4 . RN repeated and verified pt name, , and lab value. REsult called to 's rn Ariana del valle no new orders received at this time.
[2022-05-29 10:08] LABS: Calcium 5.4 mg/dl (8.4-10.2)
[2022-05-29 10:36] LABS: Thyroid Stimulating Hormone 1.11 uIU/mL (0.465-4.68)
[2022-05-29 11:55] VITALS: BP 94/59; PULSE 97; RESP 20; TEMP 36.6; O2SAT 100
[2022-05-29 12:50] VITALS: BP 97/54; PULSE 93; RESP 18; O2SAT 99
[2022-05-30 13:13] LABS: Adrenocorticotropic Hormone 22.2 pg/mL (7.2-63.3)
== END 2022-05-29 12:50 | disposition home or self-care (01) ==
LOC: INF 09:37
PROVIDERS: PCP Internal Medicine Adolescent Medicine; Visit Provider Internal Medicine Medical Oncology
DX: D46.9 Myelodysplastic syndrome, unspecified (principal); C34.90 Malignant neoplasm of unspecified part of unspecified bronchus or lung; Z79.899 Other long term (current) drug therapy; Z51.11 Encounter for antineoplastic chemotherapy
CPT/HCPCS: 80053; 82024; 82533; 84443; 85025; 96413; J2405; J9299

== ENCOUNTER 2022-06-03 08:24 | Outpatient (RCR) | payer MEDICARE, SELFPAY | END 2022-09-11 14:21 | disposition home or self-care (01) | LOC: PT 08:24 | PROVIDERS: Visit Provider Internal Medicine Pulmonary Disease | DX: J44.9 Chronic obstructive pulmonary disease, unspecified (principal) | CPT/HCPCS: 94626 ==

== ENCOUNTER → 2022-06-09 07:43 | Outpatient (CLI) | payer MEDICARE, SELFPAY ==
--- NOTE | 2022-06-09 07:44 | CA_ITS ---
APPROVED REPORT EXAM: Limited 2D Echocardiogram Bottle Dealer: Estrellita Quispe RVT Ht: 5 ft 10 in Wt: 116lbs BSA: 1.66 BP: 94/55 mmHg Indications: F/U PERICARDIAL EFFUSION,LUNG CA,COPD,SOA,HTN,HLD,SMOKER 2D Dimensions LVOT 2.06 cm (M/F) 1.5-2.5 M-Mode Dimensions RVDd 1.50 cm (0.9-2.6) LA Diam 2.71 cm (1.9-4.0) LVDd 5.47 cm (3.5-5.7) Ao Diam 3.43 cm (2.0-3.7) LVDs 3.82 cm (3.5-5.7) IVSd 0.57 cm (0.6-1.1) PWd 0.39 cm (0.6-1.1) EF (Teich) 56.90% FS 30.20% EDV (Teich) 145.60 mL ESV (Teich) 62.70 mL Conclusion 1. Limited echocardiogram was performed to evaluate for pericardial effusion. 2. Normal left ventricular size and function. Estimated ejection fraction 55%. There is no regional wall motion abnormality. 3. No significant pericardial effusion noted. 4. Inferior vena cava is poorly visualized. Electronically signed by : Zenon Holguin MD 06/09/2022 19:19:07
== END ==
PROVIDERS: PCP Internal Medicine Adolescent Medicine; Visit Provider Nurse Practitioner
DX: I27.20 Pulmonary hypertension, unspecified (principal)
CPT/HCPCS: 93308

== ENCOUNTER → 2022-06-30 12:12 | Outpatient (CLI) | payer MEDICARE, SELFPAY ==
--- NOTE | 2022-06-30 12:40 | CT_ITS ---
FINAL REPORT TECHNIQUE: Postcontrast axial images of the chest were performed in a CTA protocol. This study was performed with techniques to keep radiation doses as low as reasonably achievable, (ALARA). Individualized dose reduction technique using automated exposure control or adjustment of mA and/or kV according to the patient's size were employed. CLINICAL HISTORY: tachycardia, hx of cancer, soa r/o pe COMPARISON: 05/13/2022 FINDINGS: The heart is normal in size. No adenopathy is identified. No pleural or pericardial effusion is identified. The thoracic aorta is normal in caliber with no focal aneurysm or dissection identified. There is no filling defect to suggest pulmonary embolism. There is abnormal soft tissue and linear scarring throughout the right perihilar region which may be related to post treatment change. There is a noncalcified nodule at the right lung base measuring 1.4 x 0.8 cm, best seen on series 2, image 248, similar to prior exam. Scarring is present at the lung bases. There is moderate obstructive airway disease. Limited imaging of the upper abdomen is without acute abnormality. IMPRESSION: No evidence for PE on this exam. Stable, noncalcified mass in the right lower lobe, underlying neoplasia not excluded. Soft tissue and scarring in the right perihilar region which may be related to post treatment change. Reviewed, Interpreted and Dictated by Kar Bowden MD Transcribed by Belen Lu Authenticated and [facility]
[2022-06-30 13:00] LABS: Basophils % 0.6 % (0.1-2.0); Eosinophils # 0.3 K/mm3 (0.0-0.4); Eosinophils % 6.3 % (0.1-12.0); Hemoglobin 11.1 g/dL (14.1-18.0); Lymphocytes % 18.8 % (10-50); Mean Corpuscular HGB Conc 29.9 g/dL (31.8-35.4); Mean Corpuscular Hemoglobin 30.6 pg (27.0-31.2); Mean Corpuscular Volume 102.3 fl (80-94); Mean Platelet Volume 7.8 fl (7.4-10.4); Monocytes # 0.3 K/mm3 (0.1-1.0); Monocytes % 6.1 % (1.7-9.3); Neutrophils # 3.6 K/mm3 (1.8-7.8); Neutrophils % 68.3 % (37.0-80.0); Platelet Count 646 K/mm3 (142-424); Red Blood Count 3.62 M/mm3 (4.60-6.20); Red Cell Distribution Width 15.6 % (11.5-17.5); White Blood Count 5.3 K/mm3 (4.8-10.8)
[2022-06-30 13:14] LABS: Anion Gap 14.2 mEq/L (5-15); Blood Urea Nitrogen 7 mg/dl (9-20); Calcium 6.2 mg/dl (8.4-10.2); Carbon Dioxide 30 mmol/L (22.0-30.0); Chloride 97 mmol/L (98-107); Estimated Glomerular Filt Rate 167 ml/min (>60); GFR (African American) 202 ML/MIN (>60); Glucose 85 mg/dl (74-100); Potassium 4.2 mmoL/L (3.5-5.1); Sodium 137 mmol/L (136-145)
== END ==
PROVIDERS: PCP Internal Medicine Adolescent Medicine; Visit Provider Nurse Practitioner
DX: J18.9 Pneumonia, unspecified organism (principal); R55 Syncope and collapse; R00.0 Tachycardia, unspecified; Z20.822 Contact with and (suspected) exposure to COVID-19; R06.00 Dyspnea, unspecified
CPT/HCPCS: 36415; 71275; 80048; 85025; 94762; C9803; Q9967; U0003; U0005

== ENCOUNTER 2022-07-03 10:01 | Outpatient (CLI) | payer MEDICARE, SELFPAY ==
[2022-07-03 10:04] VITALS: BMI 16.3
[2022-07-03 11:00] VITALS: BP 105/67; PULSE 101; RESP 22; TEMP 36.4; O2SAT 100
[2022-07-03 11:24] LABS: Thyroid Stimulating Hormone 1.02 uIU/mL (0.465-4.68)
[2022-07-03 11:45] VITALS: BP 117/65; PULSE 95; RESP 22; O2SAT 100
== END 2022-07-03 11:45 | disposition home or self-care (01) ==
LOC: INF 10:02
PROVIDERS: PCP Internal Medicine Adolescent Medicine; Visit Provider Internal Medicine Medical Oncology
DX: C34.90 Malignant neoplasm of unspecified part of unspecified bronchus or lung (principal); Z79.899 Other long term (current) drug therapy; Z51.11 Encounter for antineoplastic chemotherapy
CPT/HCPCS: 82024; 82533; 84443; 96413; J2405; J9299

== ENCOUNTER → 2022-07-08 08:31 | Outpatient (CLI) | payer MEDICARE, SELFPAY ==
[2022-07-08 10:17] LABS: Basophils % 0.4 % (0.1-2.0); Eosinophils # 0.4 K/mm3 (0.0-0.4); Eosinophils % 6.3 % (0.1-12.0); Hematocrit 35.1 % (42.0-52.0); Hemoglobin 10.4 g/dL (14.1-18.0); Mean Corpuscular HGB Conc 29.6 g/dL (31.8-35.4); Mean Corpuscular Hemoglobin 29.3 pg (27.0-31.2); Mean Corpuscular Volume 99.2 fl (80-94); Mean Platelet Volume 7.2 fl (7.4-10.4); Monocytes # 0.4 K/mm3 (0.1-1.0); Monocytes % 7.5 % (1.7-9.3); Neutrophils # 4.1 K/mm3 (1.8-7.8); Neutrophils % 68.8 % (37.0-80.0); Platelet Count 386 K/mm3 (142-424); Red Blood Count 3.54 M/mm3 (4.60-6.20); Red Cell Distribution Width 14.6 % (11.5-17.5); White Blood Count 5.9 K/mm3 (4.8-10.8)
[2022-07-08 11:04] LABS: Anion Gap 11.4 mEq/L (5-15); Blood Urea Nitrogen 10 mg/dl (9-20); Carbon Dioxide 33 mmol/L (22.0-30.0); Chloride 98 mmol/L (98-107); Estimated Glomerular Filt Rate 167 ml/min (>60); GFR (African American) 202 ML/MIN (>60); Glucose 85 mg/dl (74-100); Potassium 4.4 mmoL/L (3.5-5.1); Sodium 138 mmol/L (136-145)
[2022-07-08 11:32] LABS: Calcium 5.4 mg/dl (8.4-10.2)
== END ==
PROVIDERS: Nurse Practitioner; PCP Internal Medicine Adolescent Medicine; Visit Provider Internal Medicine
DX: E78.5 Hyperlipidemia, unspecified (principal); I10 Essential (primary) hypertension; R06.00 Dyspnea, unspecified; Z01.812 Encounter for preprocedural laboratory examination; Z20.822 Contact with and (suspected) exposure to COVID-19
CPT/HCPCS: 36415; 80048; 85025; C9803; U0003; U0005

== ENCOUNTER 2022-07-09 08:10 | Day surgery (SDC) | payer MEDICARE, SELFPAY ==
[2022-07-09] VITALS (19 sets, daily range): BP systolic 112–163; BP diastolic 54–98; PULSE 85–101; RESP 14–18; O2SAT 96–100; BMI 16.3
--- NOTE | 2022-07-09 07:44 | IR_ITS ---
APPROVED REPORT Patient Location: Outpatient [facility]: JENNIFER Garcia RT (R) PROCEDURES Right brachial artery access Catheter placement in the right brachial artery Right brachial artery retrograde angiogram Right femoral arterial access Left heart catheterization Left ventriculogram Selective coronary angiogram INDICATION Risk factors for coronary disease, Severe lung disease unable to perform noninvasive cardiac stress testing, Angina pectoris, Right brachial artery atherosclerosis Informed consent was obtained prior to the procedure. COMPLICATIONS None Estimated Blood Loss: Less than 10 ML TECHNIQUE 1% lidocaine used anesthetize the right anterior aspect of the right wrist. The right radial artery was accessed via the Salinger technique and a 6 Slovenian hydrophilic sheath was placed in the right radial artery. An arterial cocktail consisting of heparin lidocaine verapamil and nitroglycerin was administered intra-arterially. The wire was able to easily traverse the brachial artery however a Poppa catheter could not make the transition through the artery. Retrograde angiography was performed which did not demonstrate any atherosclerotic plaque but a tortuous vessel instead. The sheath was exchanged initially for a 25 cm hydrophilic sheath this still did not reach the brachial artery therefore this was exchanged for a 75 cm destination sheath. The destination sheath would not pass through the brachial artery therefore the apparatus was removed the sheath was removed good hemostasis was achieved using TR banding. 1% lidocaine was then used anesthetize right groin therefore arteries accessed via the sounder technique and a 4 Slovenian sheath was placed in the right femoral artery. A [id number] [id number] catheter used to perform left heart catheterization left ventriculogram and selective coronary angiogram. At the end of procedure the apparatus was removed the patient was transferred to the postop putting in stable condition for sheath removal ANGIOGRAPHIC RESULTS The left main artery Normal The left anterior descending artery Normal The circumflex artery Codominant normal The right coronary artery Codominant normal The HUMPHRIES ventriculogram reveals Normal 65% The left ventricular end-diastolic pressure 10 mmHg IMPRESSION Normal coronary arteries Normal ejection fraction Normal left ventricular end-diastolic pressure PLAN 1. Treatment of underlying lung disease Electronically signed by : Dragan Prakash MD 07/09/2022 10:52:30
== END 2022-07-09 14:21 | disposition home or self-care (01) ==
PROVIDERS: PCP Internal Medicine Adolescent Medicine; Visit Provider Internal Medicine
DX: R55 Syncope and collapse (principal); R06.02 Shortness of breath; J96.22 Acute and chronic respiratory failure with hypercapnia; F17.210 Nicotine dependence, cigarettes, uncomplicated; I70.208 Unspecified atherosclerosis of native arteries of extremities, other extremity; Z82.49 Family history of ischemic heart disease and other diseases of the circulatory system; I10 Essential (primary) hypertension; I25.10 Atherosclerotic heart disease of native coronary artery without angina pectoris; C34.90 Malignant neoplasm of unspecified part of unspecified bronchus or lung
CPT/HCPCS: 75710; 93458; 99152; 99153; C1725; C1769; J1644; Q9967

== ENCOUNTER 2022-07-31 08:15 | Outpatient (CLI) | payer MEDICARE, SELFPAY ==
[2022-07-31] VITALS (9 sets, daily range): BP systolic 122–143; BP diastolic 70–80; PULSE 85–95; RESP 19–22; TEMP 37; O2SAT 99–100; BMI 16.3
[2022-07-31 08:50] LABS: Basophils # 0.1 K/mm3 (0-0.2); Eosinophils # 0.4 K/mm3 (0.0-0.4); Eosinophils % 7.4 % (0.1-12.0); Hematocrit 34.8 % (42.0-52.0); Hemoglobin 10.9 g/dL (14.1-18.0); Lymphocytes # 0.9 K/mm3 (0.7-4.5); Lymphocytes % 17.7 % (10-50); Mean Corpuscular HGB Conc 31.3 g/dL (31.8-35.4); Mean Corpuscular Hemoglobin 30.4 pg (27.0-31.2); Mean Corpuscular Volume 97.2 fl (80-94); Mean Platelet Volume 7.5 fl (7.4-10.4); Monocytes # 0.5 K/mm3 (0.1-1.0); Monocytes % 9.3 % (1.7-9.3); Neutrophils # 3.4 K/mm3 (1.8-7.8); Neutrophils % 64.6 % (37.0-80.0); Platelet Count 389 K/mm3 (142-424); Red Blood Count 3.58 M/mm3 (4.60-6.20); Red Cell Distribution Width 15.7 % (11.5-17.5); White Blood Count 5.3 K/mm3 (4.8-10.8)
[2022-07-31 08:51] LABS: Chloride 94 mmol/L (98-107); Potassium 4.2 mmoL/L (3.5-5.1); Sodium 141 mmol/L (136-145)
[2022-07-31 08:53] LABS: Blood Urea Nitrogen 11 mg/dl (9-20); Creatinine Clearance Estimated 54 mL/min (50-200); Estimated Glomerular Filt Rate 135 ml/min (>60); GFR (African American) 164 ML/MIN (>60)
[2022-07-31 08:54] LABS: Alanine Aminotransferase 14 U/L (12-78); Albumin Level 4.3 g/dl (3.5-5.0); Albumin/Globulin Ratio 1.4 (1.1-1.8); Alkaline Phosphatase 91 U/L (38-126); Anion Gap 13.2 mEq/L (5-15); Aspartate Amino Transferase 36 U/L (17-59); Carbon Dioxide 38 mmol/L (22.0-30.0); Glucose 97 mg/dl (74-100); Total Protein,Serum 7.3 g/dl (6.3-8.2)
[2022-07-31 08:56] LABS: Bilirubin,Total < 0.1 mg/dl (0.2-1.3)
--- NOTE | 2022-07-31 08:56 | PC.NURSE ---
0856-vick menezes called rn at 0856 to report calcium level 5.1. Rn repeated and verified pt name, , and lab value.result called to eligio lacey for will wait for possible new orders.
[2022-07-31 08:57] LABS: Calcium 5.1 mg/dl (8.4-10.2)
[2022-07-31 09:25] LABS: Thyroid Stimulating Hormone 1.05 uIU/mL (0.465-4.68)
[2022-08-01 13:10] LABS: Adrenocorticotropic Hormone 31.2 pg/mL (7.2-63.3)
== END 2022-07-31 12:00 | disposition home or self-care (01) ==
LOC: INF 08:17
PROVIDERS: PCP Internal Medicine Adolescent Medicine; Visit Provider Internal Medicine Medical Oncology
DX: Z51.11 Encounter for antineoplastic chemotherapy (principal); C34.90 Malignant neoplasm of unspecified part of unspecified bronchus or lung; Z79.899 Other long term (current) drug therapy
CPT/HCPCS: 80053; 82024; 82533; 84443; 85025; 96366; 96367; 96413; J2405; J9299

== ENCOUNTER → 2022-08-25 08:24 | Outpatient (CLI) | payer MEDICARE, SELFPAY ==
--- NOTE | 2022-08-25 08:53 | CT_ITS ---
FINAL REPORT CLINICAL HISTORY: LUNG CANCER COMPARISON: May 2022 FINDINGS: CT OF THE ABDOMEN AND PELVIS WITH CONTRAST Axial CT images of the abdomen and pelvis were obtained after the administration of oral and iv contrast. Coronal reformatted images were also obtained and reviewed.This study was performed with techniques to keep radiation doses as low as reasonably achievable (ALARA). Individualized dose reduction techniques using automated exposure control or adjustment of mA and/or kV according to the patient's size were employed. Abdomen: There are mild changes of emphysema with mild scarring in the lung bases. The heart is normal in size. There are 2 less than 1 cm low-attenuation foci in the inferior right hepatic lobe, stable from prior. The spleen is unremarkable. No adrenal mass is present. The pancreas has an unremarkable appearance. There are several less than 1 cm low-attenuation masses in the right kidney that are stable but difficult to characterize secondary to their small size. These are favored to represent cysts. The aorta is normal in caliber. There is moderate vascular calcification. There is no free fluid or adenopathy. Pelvis: The appendix is normal. There is persistent bladder wall thickening that is nonspecific and favored to be inflammatory. There is no evidence of mass or adenopathy. There is no evidence of bowel obstruction. IMPRESSION: Stable low-attenuation masses in the liver and right kidney are too small to accurately characterize but are favored to represent cysts. Reviewed, Interpreted and Dictated by Apollo Rea III, MD Transcribed by Juan Pinto Authenticated and [facility]
[2022-08-25 09:02] LABS: Basophils # 0.1 K/mm3 (0-0.2); Basophils % 2.1 % (0.1-2.0); Eosinophils # 0.2 K/mm3 (0.0-0.4); Eosinophils % 4.9 % (0.1-12.0); Hematocrit 36.6 % (42.0-52.0); Hemoglobin 11.5 g/dL (14.1-18.0); Lymphocytes # 0.6 K/mm3 (0.7-4.5); Lymphocytes % 19.9 % (10-50); Mean Corpuscular HGB Conc 31.5 g/dL (31.8-35.4); Mean Corpuscular Hemoglobin 29.3 pg (27.0-31.2); Mean Corpuscular Volume 92.8 fl (80-94); Mean Platelet Volume 8.2 fl (7.4-10.4); Monocytes # 0.3 K/mm3 (0.1-1.0); Monocytes % 8.8 % (1.7-9.3); Neutrophils # 2.1 K/mm3 (1.8-7.8); Neutrophils % 64.4 % (37.0-80.0); Platelet Count 400 K/mm3 (142-424); Red Blood Count 3.94 M/mm3 (4.60-6.20); Red Cell Distribution Width 15.9 % (11.5-17.5); White Blood Count 3.2 K/mm3 (4.8-10.8)
[2022-08-25 09:09] LABS: Chloride 92 mmol/L (98-107)
[2022-08-25 09:10] LABS: Potassium 3.6 mmoL/L (3.5-5.1); Sodium 140 mmol/L (136-145)
[2022-08-25 09:12] LABS: Alanine Aminotransferase 18 U/L (12-78); Albumin Level 4.4 g/dl (3.5-5.0); Albumin/Globulin Ratio 1.3 (1.1-1.8); Alkaline Phosphatase 96 U/L (38-126); Anion Gap 15.6 mEq/L (5-15); Aspartate Amino Transferase 33 U/L (17-59); Bilirubin,Total 0.2 mg/dl (0.2-1.3); Blood Urea Nitrogen 6 mg/dl (9-20); Carbon Dioxide 36 mmol/L (22.0-30.0); Estimated Glomerular Filt Rate 167 ml/min (>60); GFR (African American) 202 ML/MIN (>60); Globulin 3.3 g/dL (1.3-3.2); Total Protein,Serum 7.7 g/dl (6.3-8.2)
[2022-08-25 09:13] LABS: Glucose 108 mg/dl (74-100)
--- NOTE | 2022-08-25 09:20 | PC.NURSE ---
0920-Kelly Jacome called rn at 0920 to report calcium level 5.4. RN repeated and verified pt name, , and lab value.Result called to and new order for Calcium gluconate 2gm iv over 1 hour.
[2022-08-25 09:21] LABS: Calcium 5.4 mg/dl (8.4-10.2)
--- NOTE | 2022-08-25 09:25 | PC.NURSE ---
0930-Notified pt of critical lab value and new orders from Md; pt states he does not feel good today and will try to come tomorrow 08/26/22.
== END ==
PROVIDERS: PCP Internal Medicine Adolescent Medicine; Visit Provider Internal Medicine Medical Oncology
DX: C80.1 Malignant (primary) neoplasm, unspecified (principal)
CPT/HCPCS: 36415; 74177; 80053; 85025; Q9967

== ENCOUNTER 2022-08-26 09:30 | Outpatient (CLI) | payer MEDICARE, SELFPAY ==
[2022-08-26 10:12] VITALS: BP 137/74; PULSE 98; RESP 22; O2SAT 100
[2022-08-26 12:05] VITALS: BP 145/73; PULSE 94; RESP 22; O2SAT 99
== END 2022-08-26 12:05 | disposition home or self-care (01) ==
LOC: INF 09:31
PROVIDERS: Visit Provider Internal Medicine Medical Oncology
DX: C80.1 Malignant (primary) neoplasm, unspecified (principal)
CPT/HCPCS: 96365

== ENCOUNTER 2022-09-15 08:27 | Outpatient (CLI) | payer MEDICARE, SELFPAY ==
[2022-09-15 08:30] VITALS: BMI 15.5
[2022-09-15 08:48] LABS: Basophils # 0.1 K/mm3 (0-0.2); Basophils % 1.8 % (0.1-2.0); Eosinophils # 0.2 K/mm3 (0.0-0.4); Hematocrit 29.5 % (42.0-52.0); Hemoglobin 9.5 g/dL (14.1-18.0); Lymphocytes # 0.9 K/mm3 (0.7-4.5); Lymphocytes % 18.4 % (10-50); Mean Corpuscular HGB Conc 32.1 g/dL (31.8-35.4); Mean Corpuscular Hemoglobin 29.1 pg (27.0-31.2); Mean Corpuscular Volume 90.5 fl (80-94); Mean Platelet Volume 8.6 fl (7.4-10.4); Monocytes # 0.4 K/mm3 (0.1-1.0); Monocytes % 7.8 % (1.7-9.3); Neutrophils # 3.2 K/mm3 (1.8-7.8); Platelet Count 364 K/mm3 (142-424); Red Blood Count 3.26 M/mm3 (4.60-6.20); Red Cell Distribution Width 15.9 % (11.5-17.5); White Blood Count 4.8 K/mm3 (4.8-10.8)
[2022-09-15 08:57] LABS: Alanine Aminotransferase 14 U/L (12-78); Albumin Level 4.4 g/dl (3.5-5.0); Albumin/Globulin Ratio 1.5 (1.1-1.8); Alkaline Phosphatase 102 U/L (38-126); Anion Gap 17.9 mEq/L (5-15); Aspartate Amino Transferase 32 U/L (17-59); Bilirubin,Total 0.3 mg/dl (0.2-1.3); Blood Urea Nitrogen 11 mg/dl (9-20); Carbon Dioxide 32 mmol/L (22.0-30.0); Chloride 93 mmol/L (98-107); Creatinine Clearance Estimated 113 mL/min (50-200); Estimated Glomerular Filt Rate 167 ml/min (>60); GFR (African American) 202 ML/MIN (>60); Glucose 99 mg/dl (74-100); Potassium 3.9 mmoL/L (3.5-5.1); Sodium 139 mmol/L (136-145); Total Protein,Serum 7.4 g/dl (6.3-8.2)
[2022-09-15 09:00] LABS: Calcium 5.3 mg/dl (8.4-10.2)
[2022-09-15 09:27] LABS: Thyroid Stimulating Hormone 0.95 uIU/mL (0.465-4.68)
[2022-09-15 10:05] VITALS: BP 134/76; PULSE 91; RESP 21; TEMP 36.6; O2SAT 100
--- NOTE | 2022-09-15 10:10 | PC.NURSE ---
1010-yoshi marks [employer] consultant in room with pt and spouse for healthy eating options for weight loss.
--- NOTE | 2022-09-15 10:39 | DIET.NUTRFU ---
Consulted for weight loss from chemo infusion center. Patient has lost approx. 20# since February 2022. Lack of appetite, denies any GI distress. He was not a big eater prior to CA/CA tx and now just eats crackers and peanut butter throughout day. Dislikes yogurt and nuts. Eats cottage cheese/fried eggs on occasion. He was not very talkative and not very receptive to suggestions. Saw Dr Campa today and is going to try marinol to help with appetite. Drinks Ensure QD in place of a meal. Encouraged at 2/day plus meals would be ideal. Provided multiple handouts and contact information.
[2022-09-15 10:49] VITALS: BP 139/76; PULSE 90; RESP 21; O2SAT 100
== END 2022-09-15 10:49 | disposition home or self-care (01) ==
LOC: INF 08:27
PROVIDERS: PCP Internal Medicine Adolescent Medicine; Visit Provider Internal Medicine Medical Oncology
DX: Z51.11 Encounter for antineoplastic chemotherapy (principal); C34.91 Malignant neoplasm of unspecified part of right bronchus or lung; Z79.899 Other long term (current) drug therapy
CPT/HCPCS: 80053; 82024; 82533; 84443; 85025; 96413; J2405; J9299

== ENCOUNTER 2022-10-16 09:28 | Outpatient (CLI) | payer MEDICARE, SELFPAY ==
[2022-10-16 09:35] VITALS: BMI 16.2
[2022-10-16 09:57] LABS: Basophils # 0.1 K/mm3 (0-0.2); Basophils % 1.6 % (0.1-2.0); Eosinophils # 0.3 K/mm3 (0.0-0.4); Eosinophils % 4.8 % (0.1-12.0); Hematocrit 28.8 % (42.0-52.0); Hemoglobin 8.7 g/dL (14.1-18.0); Lymphocytes # 0.8 K/mm3 (0.7-4.5); Lymphocytes % 15.4 % (10-50); Mean Corpuscular HGB Conc 30.2 g/dL (31.8-35.4); Mean Corpuscular Hemoglobin 26.4 pg (27.0-31.2); Mean Corpuscular Volume 87.4 fl (80-94); Mean Platelet Volume 8.2 fl (7.4-10.4); Monocytes # 0.4 K/mm3 (0.1-1.0); Monocytes % 7.3 % (1.7-9.3); Neutrophils # 3.9 K/mm3 (1.8-7.8); Neutrophils % 70.9 % (37.0-80.0); Platelet Count 442 K/mm3 (142-424); Red Blood Count 3.29 M/mm3 (4.60-6.20); Red Cell Distribution Width 15.5 % (11.5-17.5); White Blood Count 5.5 K/mm3 (4.8-10.8)
[2022-10-16 10:03] LABS: Sodium 140 mmol/L (136-145)
[2022-10-16 10:04] LABS: Chloride 96 mmol/L (98-107); Potassium 3.8 mmoL/L (3.5-5.1)
[2022-10-16 10:06] LABS: Alanine Aminotransferase 12 U/L (12-78); Albumin Level 4.3 g/dl (3.5-5.0); Albumin/Globulin Ratio 1.4 (1.1-1.8); Alkaline Phosphatase 81 U/L (38-126); Anion Gap 12.8 mEq/L (5-15); Aspartate Amino Transferase 25 U/L (17-59); Bilirubin,Total 0.2 mg/dl (0.2-1.3); Blood Urea Nitrogen 12 mg/dl (9-20); Carbon Dioxide 35 mmol/L (22.0-30.0); Creatinine Clearance Estimated 53 mL/min (50-200); Estimated Glomerular Filt Rate 135 ml/min (>60); GFR (African American) 164 ML/MIN (>60); Total Protein,Serum 7.3 g/dl (6.3-8.2)
[2022-10-16 10:07] LABS: Glucose 90 mg/dl (74-100)
[2022-10-16 10:37] LABS: Iron 27 ug/dL (49-181); Thyroid Stimulating Hormone 0.78 uIU/mL (0.465-4.68)
[2022-10-16 10:47] LABS: Total Iron Binding Capacity 442 ug/dL (261-462)
[2022-10-16 11:15] VITALS: BP 120/66; PULSE 98; RESP 20; TEMP 36.4; O2SAT 99
[2022-10-16 11:15] LABS: Ferritin 5.65 ng/ml (17.9-464)
[2022-10-16 11:57] VITALS: BP 120/70; PULSE 97; RESP 20
[2022-10-16 12:40] LABS: Vitamin B12 458 pg/mL (239-931)
[2022-10-17 15:03] LABS: Adrenocorticotropic Hormone 27.8 pg/mL (7.2-63.3)
== END 2022-10-16 11:57 | disposition home or self-care (01) ==
LOC: INF 09:29
PROVIDERS: PCP Internal Medicine Adolescent Medicine; Visit Provider Internal Medicine Medical Oncology
DX: Z51.11 Encounter for antineoplastic chemotherapy (principal); C34.90 Malignant neoplasm of unspecified part of unspecified bronchus or lung; Z79.899 Other long term (current) drug therapy
CPT/HCPCS: 80053; 82024; 82533; 82607; 82728; 83540; 83550; 84443; 85025; 96413; J2405; J9299

== ENCOUNTER 2022-10-22 08:26 | Outpatient (CLI) | payer MEDICARE, SELFPAY ==
[2022-10-22 08:43] VITALS: BP 138/88; PULSE 94; RESP 20; TEMP 36.7; O2SAT 100
[2022-10-22 09:28] VITALS: BP 156/79; PULSE 90; RESP 20; O2SAT 99
== END 2022-10-22 09:28 | disposition home or self-care (01) ==
LOC: INF 08:27
PROVIDERS: PCP Internal Medicine Adolescent Medicine; Visit Provider Internal Medicine Medical Oncology
DX: C34.90 Malignant neoplasm of unspecified part of unspecified bronchus or lung (principal)
CPT/HCPCS: 96365; J1439

== ENCOUNTER 2022-10-29 08:31 | Outpatient (CLI) | payer MEDICARE, SELFPAY ==
[2022-10-29 08:47] VITALS: BP 140/83; PULSE 83; RESP 20; O2SAT 100
[2022-10-29 09:26] VITALS: BP 148/81; PULSE 85; RESP 21; O2SAT 100
== END 2022-10-29 09:26 | disposition home or self-care (01) ==
LOC: INF 08:32
PROVIDERS: PCP Internal Medicine Adolescent Medicine; Visit Provider Internal Medicine Medical Oncology
DX: C34.91 Malignant neoplasm of unspecified part of right bronchus or lung (principal); C80.1 Malignant (primary) neoplasm, unspecified
CPT/HCPCS: 96365; J1439

== ENCOUNTER 2022-11-13 09:05 | Outpatient (CLI) | payer MEDICARE, SELFPAY ==
[2022-11-13 09:12] VITALS: BMI 16.5
[2022-11-13 09:34] LABS: Basophils % 0.8 % (0.1-2.0); Eosinophils # 0.3 K/mm3 (0.0-0.4); Hematocrit 36.5 % (42.0-52.0); Hemoglobin 11.6 g/dL (14.1-18.0); Lymphocytes # 0.8 K/mm3 (0.7-4.5); Lymphocytes % 15.2 % (10-50); Mean Corpuscular HGB Conc 31.8 g/dL (31.8-35.4); Mean Corpuscular Volume 94.3 fl (80-94); Monocytes # 0.4 K/mm3 (0.1-1.0); Neutrophils # 3.6 K/mm3 (1.8-7.8); Neutrophils % 70.9 % (37.0-80.0); Platelet Count 341 K/mm3 (142-424); Red Blood Count 3.87 M/mm3 (4.60-6.20); Red Cell Distribution Width 22.2 % (11.5-17.5); White Blood Count 5.1 K/mm3 (4.8-10.8)
[2022-11-13 09:37] LABS: Chloride 97 mmol/L (98-107); Sodium 141 mmol/L (136-145)
[2022-11-13 09:38] LABS: Potassium 3.8 mmoL/L (3.5-5.1)
[2022-11-13 09:40] LABS: Alanine Aminotransferase 14 U/L (12-78); Albumin Level 4.4 g/dl (3.5-5.0); Albumin/Globulin Ratio 1.4 (1.1-1.8); Alkaline Phosphatase 80 U/L (38-126); Anion Gap 11.8 mEq/L (5-15); Aspartate Amino Transferase 30 U/L (17-59); Bilirubin,Total 0.4 mg/dl (0.2-1.3); Blood Urea Nitrogen 13 mg/dl (9-20); Carbon Dioxide 36 mmol/L (22.0-30.0); Creatinine Clearance Estimated 54 mL/min (50-200); Estimated Glomerular Filt Rate 135 ml/min (>60); GFR (African American) 164 ML/MIN (>60); Globulin 3.2 g/dL (1.3-3.2); Glucose 104 mg/dl (74-100); Total Protein,Serum 7.6 g/dl (6.3-8.2)
--- NOTE | 2022-11-13 09:42 | PC.NURSE ---
0942-billie ruiz mlt called rn at 0942 to report calcium 5.2. Rn repeated and verified pt name, , and lab value.REsult called to jase del valle with no new orders received at this time.
[2022-11-13 09:43] LABS: Calcium 5.2 mg/dl (8.4-10.2)
[2022-11-13 11:28] VITALS: BP 144/72; PULSE 89; RESP 21; TEMP 36.3; O2SAT 100
[2022-11-13 12:10] VITALS: BP 142/71; PULSE 78; RESP 20
[2022-11-14 14:18] LABS: Adrenocorticotropic Hormone 18.9 pg/mL (7.2-63.3)
== END 2022-11-13 12:10 | disposition home or self-care (01) ==
PROVIDERS: Internal Medicine Medical Oncology; PCP Internal Medicine Adolescent Medicine; Visit Provider Internal Medicine Adolescent Medicine
DX: Z79.899 Other long term (current) drug therapy; C34.90 Malignant neoplasm of unspecified part of unspecified bronchus or lung
CPT/HCPCS: 80053; 82024; 82533; 84443; 85025; 96413; J2405; J9299

== ENCOUNTER → 2022-11-18 10:07 | Outpatient (CLI) | payer MEDICARE, SELFPAY ==
--- NOTE | 2022-11-18 10:10 | CT_ITS ---
FINAL REPORT TECHNIQUE: After the administration of oral and intravenous contrast, axial images were obtained through the abdomen and pelvis by computed tomography. The study was performed with techniques to keep radiation dose as low as reasonably achievable, (ALARA). Individual dose reduction techniques using automated exposure control or adjustment of mA and/or kV according to the patient's size were employed. CLINICAL HISTORY: LUNG CANCER follow-up COMPARISON: 08/25/2022 FINDINGS: Abdomen: The lung bases are clear. There are several low-attenuation masses in the liver and both kidneys favored to represent small cysts. Findings are stable since prior. The spleen is unremarkable. The adrenals are normal. The pancreas is unremarkable. The aorta is normal in caliber. There is no free fluid or adenopathy. Pelvis: The appendix is unremarkable. There is a moderate amount of stool throughout the colon. The urinary bladder is unremarkable. There is no free fluid or adenopathy. IMPRESSION: Stable masses in the liver and kidneys, favor small cysts. Reviewed, Interpreted and Dictated by Apollo Rea III, MD Transcribed by Bre Gross Authenticated and [facility]
--- NOTE | 2022-11-18 10:10 | CT_ITS ---
FINAL REPORT CLINICAL HISTORY: LUNG CANCER follow-up COMPARISON: 06/30/2022 FINDINGS: Axial CT images of the chest were obtained with contrast. Coronal reformatted images were also obtained. This study was performed with techniques to keep radiation doses as low as reasonably achievable, (ALARA). Individualized dose reduction techniques using automated exposure control or adjustment of mA and/or KV according to the patient's size were employed. There are small mediastinal and hilar lobes which are stable. There is moderate emphysema and moderate scarring. Post treatment changes are seen in the right perihilar region, stable. There is a 14 mm nodular opacity in the right lower lobe, stable. There is a posterior left upper lobe nodular opacity which demonstrates a more solid appearance. This opacity measures 17 mm, previously measured 17 mm. There is a calcified granuloma in left lower lobe. Several small sclerotic foci are seen in the spine which are nonspecific, could represent bone islands. IMPRESSION: Stable appearance of a right lower lobe nodular opacity but the left upper lobe nodular opacity has a more solid appearance, neoplastic involvement is not excluded. This could be further evaluated with additional follow-up CT or PET CT. Reviewed, Interpreted and Dictated by Apollo Rea III, MD Transcribed by Bre Gross Authenticated and [facility]
== END ==
PROVIDERS: PCP Internal Medicine Adolescent Medicine; Visit Provider Internal Medicine Medical Oncology
DX: C34.91 Malignant neoplasm of unspecified part of right bronchus or lung (principal)
CPT/HCPCS: 71260; 74177; Q9967

== ENCOUNTER 2022-12-12 08:54 | Outpatient (CLI) | payer MEDICARE, SELFPAY ==
[2022-12-12 09:04] VITALS: BMI 16.0
[2022-12-12 09:17] LABS: Basophils # 0.1 K/mm3 (0-0.2); Eosinophils # 0.4 K/mm3 (0.0-0.4); Eosinophils % 7.1 % (0.1-12.0); Hematocrit 39.2 % (42.0-52.0); Hemoglobin 12.6 g/dL (14.1-18.0); Mean Corpuscular HGB Conc 32.1 g/dL (31.8-35.4); Mean Corpuscular Hemoglobin 30.8 pg (27.0-31.2); Mean Platelet Volume 7.4 fl (7.4-10.4); Monocytes # 0.4 K/mm3 (0.1-1.0); Neutrophils # 3.7 K/mm3 (1.8-7.8); Platelet Count 293 K/mm3 (142-424); Red Blood Count 4.09 M/mm3 (4.60-6.20); Red Cell Distribution Width 20.9 % (11.5-17.5); White Blood Count 5.6 K/mm3 (4.8-10.8)
[2022-12-12 09:22] LABS: Chloride 98 mmol/L (98-107); Potassium 3.6 mmoL/L (3.5-5.1); Sodium 141 mmol/L (136-145)
[2022-12-12 09:24] LABS: Blood Urea Nitrogen 12 mg/dl (9-20); Creatinine Clearance Estimated 53 mL/min (50-200); Estimated Glomerular Filt Rate 113 ml/min (>60); GFR (African American) 137 ML/MIN (>60)
[2022-12-12 09:25] LABS: Alanine Aminotransferase 15 U/L (12-78); Albumin Level 4.3 g/dl (3.5-5.0); Albumin/Globulin Ratio 1.4 (1.1-1.8); Alkaline Phosphatase 86 U/L (38-126); Anion Gap 8.6 mEq/L (5-15); Aspartate Amino Transferase 26 U/L (17-59); Bilirubin,Total 0.2 mg/dl (0.2-1.3); Calcium 5.8 mg/dl (8.4-10.2); Carbon Dioxide 38 mmol/L (22.0-30.0); Glucose 84 mg/dl (74-100); Total Protein,Serum 7.3 g/dl (6.3-8.2)
[2022-12-12 09:56] LABS: Thyroid Stimulating Hormone 0.67 uIU/mL (0.465-4.68)
[2022-12-12 11:00] VITALS: BP 151/81; PULSE 83; RESP 18; TEMP 36.6; O2SAT 100
[2022-12-12 11:35] VITALS: BP 133/88; PULSE 86; RESP 22; O2SAT 100
[2022-12-13 17:18] LABS: Adrenocorticotropic Hormone 28.8 pg/mL (7.2-63.3)
== END 2022-12-12 11:35 | disposition home or self-care (01) ==
LOC: INF 08:56
PROVIDERS: PCP Internal Medicine Adolescent Medicine; Visit Provider Internal Medicine Medical Oncology
DX: Z51.11 Encounter for antineoplastic chemotherapy (principal); C34.90 Malignant neoplasm of unspecified part of unspecified bronchus or lung; Z79.899 Other long term (current) drug therapy
CPT/HCPCS: 80053; 82024; 82533; 84443; 85025; 96413; J2405; J9299

== ENCOUNTER 2023-01-01 09:28 | Outpatient (CLI) | payer MEDICARE, SELFPAY ==
--- NOTE | 2023-01-01 09:42 | XR_ITS ---
FINAL REPORT CLINICAL HISTORY: cough, lung cancer FINDINGS: TWO-VIEW CHEST The heart size is normal. The mediastinum is normal. The lungs are hyperinflated consistent with COPD. There is mild scarring in the left lung base. There is a 19 mm nodule in the left upper lobe. There is also a 12 mm nodule at the right base. There is a calcified granuloma in the left lung base. There is no pneumothorax. IMPRESSION: COPD. Bilateral pulmonary nodules. Reviewed, Interpreted and Dictated by Apollo Rea III, MD Transcribed by Bre Gross Authenticated and [facility]
[2023-01-01 09:49] LABS: Basophils # 0.1 K/mm3 (0-0.2); Basophils % 0.8 % (0.1-2.0); Eosinophils # 0.4 K/mm3 (0.0-0.4); Eosinophils % 6.9 % (0.1-12.0); Hematocrit 40.3 % (42.0-52.0); Hemoglobin 13.1 g/dL (14.1-18.0); Lymphocytes % 17.3 % (10-50); Mean Corpuscular HGB Conc 32.5 g/dL (31.8-35.4); Mean Corpuscular Hemoglobin 31.9 pg (27.0-31.2); Mean Corpuscular Volume 98.2 fl (80-94); Mean Platelet Volume 7.8 fl (7.4-10.4); Monocytes # 0.4 K/mm3 (0.1-1.0); Monocytes % 6.2 % (1.7-9.3); Neutrophils # 3.9 K/mm3 (1.8-7.8); Neutrophils % 68.8 % (37.0-80.0); Platelet Count 278 K/mm3 (142-424); Red Cell Distribution Width 20.2 % (11.5-17.5); White Blood Count 5.6 K/mm3 (4.8-10.8)
[2023-01-01 10:04] LABS: Anion Gap 6.8 mEq/L (5-15); Blood Urea Nitrogen 11 mg/dl (9-20); Calcium 5.6 mg/dl (8.4-10.2); Carbon Dioxide 36 mmol/L (22.0-30.0); Chloride 97 mmol/L (98-107); Estimated Glomerular Filt Rate 113 ml/min (>60); GFR (African American) 137 ML/MIN (>60); Glucose 106 mg/dl (74-100); Potassium 3.8 mmoL/L (3.5-5.1); Sodium 136 mmol/L (136-145)
== END 2023-01-01 09:56 | disposition home or self-care (01) ==
LOC: LAB 09:29
PROVIDERS: PCP Internal Medicine Adolescent Medicine; Visit Provider Surgery
DX: C34.90 Malignant neoplasm of unspecified part of unspecified bronchus or lung (principal); J18.9 Pneumonia, unspecified organism
CPT/HCPCS: 36415; 71046; 80048; 85025

== ENCOUNTER 2023-01-05 06:03 | Day surgery (SDC) | payer MEDICARE, SELFPAY ==
[2023-01-01 13:47] VITALS: BMI 16.5
[2023-01-05] VITALS (7 sets, daily range): BP systolic 145–171; BP diastolic 68–91; PULSE 90–107; RESP 15–24; TEMP 36.1–36.6; O2SAT 93–97
--- NOTE | 2023-01-05 07:11 | EXP.ANES.CKL ---
[facility] Disclaimer: The information contained in this section may have been updated after the patient was seen, as this information can be updated by other users. Medical History Asthma Cancer Chronic hypoxemic respiratory failure COPD (chronic obstructive pulmonary disease) COPD exacerbation Dyspnea on exertion Essential hypertension History of chemotherapy History of lung disease History of radiation therapy Hyperlipemia On home O2 Personal history of arthritis Sinus problem Small cell lung cancer Smoking greater than 30 pack years Tobacco abuse counseling Tobacco abuse disorder Surgical History History of colonoscopy History of sinus surgery Hx of cardiac catheterization Normal coronary arteries Family History Other Cancer Diabetes Social History (Updated 01/05/23 @ 06:25 by Chuyita Musa RN) Smoking Status: Current every day smoker tobacco type: cigarettes packs per day: 1 alcohol intake: never substance use type: denies use current occupational status: retired Travel in the last 8 weeks: None household members: spouse housing: house caffeine: Yes [facility] Anesthesia Checklist Patient Identification Patient Identification: Verbal (Name & ) Structural Data Admitted From: Home Planned Operative Procedure/s: portacath Consent for Planned Operative Procedure(s) Verified: Yes Additional verifications Anesthesia Reactions: No Hx Blood Transfusions: No Blood Transfusion Reaction: No Airway Assessment C-Spine Mobility Assessed: Yes TMJ Mobility Assessed: Yes Dentition: Poor Dentition Neurological Assessment Level of Consciousness: Awake, Alert and Appropriate Anesthesia Plan Anesthesia Risk discussed: Yes Anesthesia Plan: Verified ASA Class: III Anesthesia Type: MAC
--- NOTE | 2023-01-05 09:05 | EXP.OP.NOTE ---
Date of procedure: 01/05/23 Pre-op Diagnosis:: Lung cancer Post-op Diagnosis:: Same Procedure performed:: Placement of 8 [place] open ended venous access catheter in right subclavian vein with implantable reservoir port using fluoroscopy and ultrasound guidance Surgeon:: Apollo Shore MD RELIEF PHARMACIST:: Michael Shrestha Anesthesia: MAC Estimated blood loss (mL): 15 Operative findings:: Tenuous venous anatomy Operative note:: Patient was taken to the operating room. He was given preoperative intravenous antibiotics. He was positioned in supine position. Adequate intravenous sedation was achieved. He was positioned in Trendelenburg position. Neck and bilateral upper chest were prepped and draped in the standard surgical fashion. Plan was made for placement of attempted venous access port on right subclavian vein. He was positioned in Trendelenburg position. Local anesthetic was infiltrated inferior to the right clavicle medial to the deltopectoral groove. Multiple passes were made of the 18-gauge needle without good successful cannulation of the vein. At one point there was tenuous cannulation with poor venous flow. Guidewire was unable to be advanced. The SonoSite ultrasound was brought onto the field. Vein was identified and was rather small and collapsed. Using the SonoSite several more attempts were made to cannulate the vein without success. Attention was turned to the left side and local anesthetic was infiltrated in a similar fashion. Left subclavian vein was unable to be cannulated. The vein was identified using the SonoSite but despite multiple efforts it was unable to be cannulated. Ultimately attention was turned once again to the right side. Vein was identified using the SonoSite device. It was marked with a skin marker along its course. 21-gauge needle was then inserted as a finder needle . There was cannulation of the vein with venous return. This seemed more inferior than would be expected. Following the trajectory of the finder needle 18-gauge catheter was inserted with return of venous blood. Guidewire was inserted. C arm fluoroscopy was used to confirm appropriate positioning. Dilator with breakaway sheath was inserted over the guidewire. Guidewire and dilator were removed. Open-ended 8 [place] catheter was inserted through the breakaway sheath and then the breakaway sheath was removed. Fluoroscopy was used to position the tip of the catheter near the atriocaval junction. Skin was marked with a skin marker for planned tunneling and subcutaneous pocket. Local anesthetic was infiltrated. Incision was made for the subcutaneous pocket and subcutaneous pocket was created with electrocautery. Catheter was then tunneled subcutaneously with a tunneling device. The catheter was cut to the appropriate length and secured to the reservoir port. Port aspirated and flushed without difficulty with saline. The reservoir port was secured with a couple of 2-0 PDS sutures. Subdermal tissues were closed with running 2-0 Vicryl. Skin incision was closed with 4-0 Monocryl in a subcuticular fashion. The port was then flushed with heparinized saline. Dermabond and dressings were applied. Chest x-ray was performed in the operating room. Condition: stable Disposition: PACU Complications:: None immediately apparent
--- NOTE | 2023-01-05 09:07 | XR_ITS ---
FINAL REPORT TECHNIQUE: Single view chest CLINICAL HISTORY: POST-OP XRAY PORT A CATH PLACEMENT check for pneumo COMPARISON: 01/01/2023 FINDINGS: A single view of the chest was obtained. The heart and mediastinum are within normal limits. There is a right Port-A-Cath with the tip in the SVC. Right hilar fullness is unchanged from prior exam. There are stable left upper lobe nodular opacities and changes of emphysema. There is no pneumothorax. Osseous structures are unremarkable. IMPRESSION: Interval placement of right Port-A-Cath with tip in the SVC. No pneumothorax. Otherwise, no significant change. Reviewed, Interpreted and Dictated by Kristen Sparrow MD Transcribed by Belen Lu Authenticated and . [facility]
--- NOTE | 2023-01-05 09:08 | XR_ITS ---
FINAL REPORT CLINICAL HISTORY: PORT IN OR, FT 0:46 FINDINGS: FLUORO TIME PROCEDURE: Fluoroscopy in the operating room. FINDINGS: Fluoroscopy time was provided by the radiology department for the clinical service. A single film was obtained. Fluoroscopy exposure time: 0:46 minute IMPRESSION: See above Reviewed, Interpreted and Dictated by Kristen Sparrow MD Transcribed by Kae Starkey Authenticated and [facility]
--- NOTE | 2023-01-05 09:19 | EXP.ANES.I ---
[facility] Anesthesia Record Part I Anesthesia Record I Intake, IV Amount: 1,300 Estimated blood loss (mL): 10 Urine output (mL): 0 Blood Pressure: 171/91 SaO2: 96 Pulse Rate: 93 Respiratory Rate: 18 Temperature: 97 F Patient is:: Awake Stable to PACU at:: 09:15
== END 2023-01-05 10:20 | disposition home or self-care (01) ==
PROVIDERS: PCP Internal Medicine Adolescent Medicine; Visit Provider Surgery
DX: C34.91 Malignant neoplasm of unspecified part of right bronchus or lung (principal); F17.210 Nicotine dependence, cigarettes, uncomplicated; Z79.899 Other long term (current) drug therapy
CPT/HCPCS: 36561; 76937; 77001; 71045; 94640; 96374; C1788; J1642; J2405

== ENCOUNTER 2023-01-08 09:06 | Outpatient (CLI) | payer MEDICARE, SELFPAY ==
[2023-01-08 09:10] VITALS: BMI 16.5
[2023-01-08 09:41] LABS: Basophils % 0.6 % (0.1-2.0); Eosinophils # 0.4 K/mm3 (0.0-0.4); Eosinophils % 6.9 % (0.1-12.0); Hematocrit 37.9 % (42.0-52.0); Hemoglobin 12.3 g/dL (14.1-18.0); Lymphocytes % 15.1 % (10-50); Mean Corpuscular HGB Conc 32.3 g/dL (31.8-35.4); Mean Corpuscular Hemoglobin 31.6 pg (27.0-31.2); Mean Corpuscular Volume 97.6 fl (80-94); Mean Platelet Volume 7.8 fl (7.4-10.4); Monocytes # 0.4 K/mm3 (0.1-1.0); Monocytes % 6.5 % (1.7-9.3); Neutrophils # 4.5 K/mm3 (1.8-7.8); Neutrophils % 70.8 % (37.0-80.0); Platelet Count 273 K/mm3 (142-424); Red Blood Count 3.88 M/mm3 (4.60-6.20); Red Cell Distribution Width 19.8 % (11.5-17.5); White Blood Count 6.4 K/mm3 (4.8-10.8)
[2023-01-08 09:52] LABS: Chloride 94 mmol/L (98-107); Sodium 136 mmol/L (136-145)
[2023-01-08 09:53] LABS: Potassium 3.7 mmoL/L (3.5-5.1)
[2023-01-08 09:55] LABS: Alanine Aminotransferase 15 U/L (12-78); Alkaline Phosphatase 81 U/L (38-126); Anion Gap 10.7 mEq/L (5-15); Aspartate Amino Transferase 29 U/L (17-59); Bilirubin,Total 0.3 mg/dl (0.2-1.3); Blood Urea Nitrogen 9 mg/dl (9-20); Carbon Dioxide 35 mmol/L (22.0-30.0); Creatinine Clearance Estimated 54 mL/min (50-200); Estimated Glomerular Filt Rate 135 ml/min (>60); GFR (African American) 164 ML/MIN (>60)
[2023-01-08 09:56] LABS: Albumin/Globulin Ratio 1.5 (1.1-1.8); Globulin 2.7 g/dL (1.3-3.2); Total Protein,Serum 6.7 g/dl (6.3-8.2)
[2023-01-08 10:01] LABS: Glucose 129 mg/dl (74-100)
--- NOTE | 2023-01-08 10:06 | PC.NURSE ---
1006-Elvia Licea called rn at 1006 to report calcium level 5.2.rn repeated and verified pt name, , and lab value. result called to eligio lacey with no new orders received.
[2023-01-08 10:07] LABS: Calcium 5.2 mg/dl (8.4-10.2)
[2023-01-08 10:27] LABS: Thyroid Stimulating Hormone 0.82 uIU/mL (0.465-4.68)
[2023-01-08 10:43] VITALS: BP 154/78; PULSE 88; RESP 18; TEMP 36.3; O2SAT 100
[2023-01-08 12:02] VITALS: BP 152/86; PULSE 87; RESP 20; O2SAT 100
[2023-01-09 13:13] LABS: Adrenocorticotropic Hormone 32.1 pg/mL (7.2-63.3)
== END 2023-01-08 11:35 | disposition home or self-care (01) ==
LOC: INF 09:07
PROVIDERS: PCP Internal Medicine Adolescent Medicine; Visit Provider Internal Medicine Medical Oncology
DX: C34.91 Malignant neoplasm of unspecified part of right bronchus or lung (principal); Z79.899 Other long term (current) drug therapy; Z45.2 Encounter for adjustment and management of vascular access device
CPT/HCPCS: 80053; 82024; 82533; 84443; 85025; 96413; J1642; J2405; J9299

== ENCOUNTER 2023-02-19 09:12 | Outpatient (CLI) | payer MEDICARE, SELFPAY ==
[2023-02-19 09:15] VITALS: BMI 16.6
[2023-02-19 09:41] LABS: Basophils % 0.6 % (0.1-2.0); Eosinophils # 0.4 K/mm3 (0.0-0.4); Eosinophils % 5.8 % (0.1-12.0); Hematocrit 38.4 % (42.0-52.0); Hemoglobin 12.5 g/dL (14.1-18.0); Lymphocytes # 1.1 K/mm3 (0.7-4.5); Lymphocytes % 16.6 % (10-50); Mean Corpuscular HGB Conc 32.5 g/dL (31.8-35.4); Mean Corpuscular Hemoglobin 32.3 pg (27.0-31.2); Mean Corpuscular Volume 99.3 fl (80-94); Mean Platelet Volume 7.5 fl (7.4-10.4); Monocytes # 0.5 K/mm3 (0.1-1.0); Monocytes % 6.7 % (1.7-9.3); Neutrophils # 4.7 K/mm3 (1.8-7.8); Neutrophils % 70.3 % (37.0-80.0); Platelet Count 436 K/mm3 (142-424); Red Blood Count 3.87 M/mm3 (4.60-6.20); Red Cell Distribution Width 15.5 % (11.5-17.5); White Blood Count 6.7 K/mm3 (4.8-10.8)
[2023-02-19 09:44] LABS: Chloride 95 mmol/L (98-107); Potassium 3.9 mmoL/L (3.5-5.1); Sodium 140 mmol/L (136-145)
[2023-02-19 09:47] LABS: Albumin Level 4.1 g/dl (3.5-5.0); Albumin/Globulin Ratio 1.4 (1.1-1.8); Alkaline Phosphatase 77 U/L (38-126); Anion Gap 13.9 mEq/L (5-15); Bilirubin,Total 0.4 mg/dl (0.2-1.3); Blood Urea Nitrogen 7 mg/dl (9-20); Carbon Dioxide 35 mmol/L (22.0-30.0); Creatinine Clearance Estimated 55 mL/min (50-200); Estimated Glomerular Filt Rate 135 ml/min (>60); GFR (African American) 164 ML/MIN (>60); Glucose 133 mg/dl (74-100); Total Protein,Serum 7.1 g/dl (6.3-8.2)
[2023-02-19 09:51] LABS: Calcium 5.5 mg/dl (8.4-10.2)
[2023-02-19 10:03] LABS: Alanine Aminotransferase 16 U/L (12-78); Aspartate Amino Transferase 30 U/L (17-59)
[2023-02-19 10:18] LABS: Thyroid Stimulating Hormone 0.66 uIU/mL (0.465-4.68)
[2023-02-19 10:55] VITALS: BP 120/72; PULSE 94; RESP 22; TEMP 37.2; O2SAT 100
[2023-02-19 11:10] VITALS: BP 124/73; PULSE 91; RESP 20
[2023-02-19 11:25] VITALS: BP 126/73; PULSE 91; RESP 20
[2023-02-20 13:17] LABS: Adrenocorticotropic Hormone 25.6 pg/mL (7.2-63.3)
== END 2023-02-19 11:40 | disposition home or self-care (01) ==
LOC: INF 09:13
PROVIDERS: PCP Internal Medicine Adolescent Medicine; Visit Provider Internal Medicine Medical Oncology
DX: C34.91 Malignant neoplasm of unspecified part of right bronchus or lung (principal); Z51.11 Encounter for antineoplastic chemotherapy; Z79.899 Other long term (current) drug therapy
CPT/HCPCS: 80053; 82024; 82533; 84443; 85025; 96413; J1642; J2405; J9299

== ENCOUNTER 2023-03-16 08:02 | Outpatient (CLI) | payer MEDICARE, SELFPAY ==
[2023-03-16 08:14] VITALS: BMI 16.6
[2023-03-16 08:26] LABS: Basophils % 0.3 % (0.1-2.0); Eosinophils # 0.5 K/mm3 (0.0-0.4); Eosinophils % 7.4 % (0.1-12.0); Hematocrit 40.5 % (42.0-52.0); Hemoglobin 12.8 g/dL (14.1-18.0); Lymphocytes # 1.1 K/mm3 (0.7-4.5); Lymphocytes % 17.9 % (10-50); Mean Corpuscular HGB Conc 31.7 g/dL (31.8-35.4); Mean Corpuscular Hemoglobin 32.7 pg (27.0-31.2); Mean Platelet Volume 7.4 fl (7.4-10.4); Monocytes # 0.5 K/mm3 (0.1-1.0); Monocytes % 7.8 % (1.7-9.3); Neutrophils # 4.1 K/mm3 (1.8-7.8); Neutrophils % 66.4 % (37.0-80.0); Platelet Count 328 K/mm3 (142-424); Red Blood Count 3.93 M/mm3 (4.60-6.20); Red Cell Distribution Width 14.1 % (11.5-17.5); White Blood Count 6.1 K/mm3 (4.8-10.8)
[2023-03-16 08:31] LABS: Chloride 90 mmol/L (98-107)
[2023-03-16 08:32] LABS: Potassium 3.8 mmoL/L (3.5-5.1); Sodium 137 mmol/L (136-145)
[2023-03-16 08:34] LABS: Alanine Aminotransferase 16 U/L (12-78); Alkaline Phosphatase 92 U/L (38-126); Anion Gap 16.8 mEq/L (5-15); Aspartate Amino Transferase 31 U/L (17-59); Bilirubin,Total 0.5 mg/dl (0.2-1.3); Blood Urea Nitrogen 7 mg/dl (9-20); Carbon Dioxide 34 mmol/L (22.0-30.0); Creatinine Clearance Estimated 55 mL/min (50-200); Estimated Glomerular Filt Rate 113 ml/min (>60); GFR (African American) 137 ML/MIN (>60); Glucose 92 mg/dl (74-100)
[2023-03-16 08:35] LABS: Albumin Level 4.1 g/dl (3.5-5.0); Albumin/Globulin Ratio 1.3 (1.1-1.8); Globulin 3.1 g/dL (1.3-3.2); Total Protein,Serum 7.2 g/dl (6.3-8.2)
--- NOTE | 2023-03-16 08:35 | PC.NURSE ---
0835-Kelly Plaza called rn at 0835 to report calcium level 5.1.RN repeated and verified pt name, , and lab value.Result called to no new orders at this time;make sure pt still taking oral supplement.
[2023-03-16 08:36] LABS: Calcium 5.1 mg/dl (8.4-10.2)
--- NOTE | 2023-03-16 08:58 | CT_ITS ---
FINAL REPORT CLINICAL HISTORY: LUNG CANCER, 3month follow up scan FINDINGS: CT CHEST WITHOUT AND WITH CONTRAST TECHNIQUE: After the administration of intravenous contrast, axial images through the chest were performed by computed tomography. This study was performed with techniques to keep radiation doses as low as reasonably achievable, (ALARA). Individualized dose reduction techniques using automated exposure control or adjustment of mA and/or kV according to the patient's size were employed. FINDINGS: There is no axillary adenopathy. There is no hilar or mediastinal adenopathy. The heart size is normal. There is no pericardial or pleural effusion. There is a spiculated soft tissue density in the right suprahilar region, similar to the prior exam, compatible with post treatment change. There is been interval development of right mid lung opacity which may be due to partial collapse. Nodular density in the right lower lobe measures 13 mm and is unchanged. A left upper lobe nodular density measures 20 mm and previously measured 15 mm. However, measuring differences are probably due to slice variation. When reviewed on sagittal and coronal images, abnormality appears stable. Moderate emphysematous changes are present. IMPRESSION: Stable appearance to right lower lobe and left upper lobe discoid type lung lesions. Interval development of right mid lung partial collapse. Continued chest CT follow-up is recommended in 6-12 months. Reviewed, Interpreted and Dictated by Brandon Greenberg MD Transcribed by Kathrine Tucker Authenticated and [facility]
--- NOTE | 2023-03-16 08:58 | CT_ITS ---
FINAL REPORT TECHNIQUE: Axial CT of the abdomen and pelvis, without and with IV contrast. CLINICAL HISTORY: LUNG CANCER, 3 month followup scan COMPARISON: 11/18/2022 FINDINGS: Abdomen: There are subcentimeter hypodense lesions within the liver. The largest measures 7 mm and is well seen on image 19. These are unchanged as compared to the prior exam. The gallbladder is unremarkable. The spleen, pancreas and adrenal glands are unremarkable. Precontrast imaging shows no renal stone disease. Postcontrast imaging of the kidneys shows no obstruction. A subcentimeter right renal lesion is again noted and likely represents a cyst. No bowel obstruction or fluid collection is seen. Pelvis: The appendix is not visualized. There is mild nonspecific bladder wall thickening. The prostate is unremarkable. Pelvic bowel loops are unremarkable. No fluid collection or adenopathy is seen. IMPRESSION: Stable abdomen and pelvis exam without convincing metastatic disease. Reviewed, Interpreted and Dictated by Brandon Greenberg MD Transcribed by Kathrine Tucker Authenticated and [facility]
[2023-03-16 09:06] LABS: Thyroid Stimulating Hormone 0.86 uIU/mL (0.465-4.68)
[2023-03-17 14:23] LABS: Adrenocorticotropic Hormone 31.5 pg/mL (7.2-63.3)
== END 2023-03-16 09:30 | disposition home or self-care (01) ==
LOC: INF 08:04
PROVIDERS: PCP Internal Medicine Adolescent Medicine; Visit Provider Internal Medicine Medical Oncology
DX: C34.90 Malignant neoplasm of unspecified part of unspecified bronchus or lung (principal); Z79.899 Other long term (current) drug therapy
CPT/HCPCS: 36591; 71270; 74178; 80053; 82024; 82533; 84443; 85025; J1642; Q9967

== ENCOUNTER 2023-03-19 10:53 | Outpatient (CLI) | payer MEDICARE, SELFPAY ==
[2023-03-19 11:35] VITALS: BP 150/64; PULSE 89; RESP 21; TEMP 36.4; O2SAT 95
[2023-03-19 12:22] VITALS: BP 116/72; PULSE 89; RESP 18; O2SAT 96
== END 2023-03-19 12:22 | disposition home or self-care (01) ==
LOC: INF 10:54
PROVIDERS: PCP Internal Medicine Adolescent Medicine; Visit Provider Internal Medicine Medical Oncology
DX: Z51.11 Encounter for antineoplastic chemotherapy (principal); C34.90 Malignant neoplasm of unspecified part of unspecified bronchus or lung
CPT/HCPCS: 96413; J1642; J2405; J9299

== ENCOUNTER 2023-04-16 08:48 | Outpatient (CLI) | payer MEDICARE, SELFPAY ==
[2023-04-16 08:53] VITALS: BMI 16.3
[2023-04-16 09:30] LABS: Chloride 95 mmol/L (98-107); Potassium 3.6 mmoL/L (3.5-5.1); Sodium 140 mmol/L (136-145)
[2023-04-16 09:32] LABS: Basophils % 0.4 % (0.1-2.0); Eosinophils # 0.5 K/mm3 (0.0-0.4); Eosinophils % 9.6 % (0.1-12.0); Hematocrit 39.3 % (42.0-52.0); Hemoglobin 12.9 g/dL (14.1-18.0); Lymphocytes # 0.9 K/mm3 (0.7-4.5); Lymphocytes % 16.4 % (10-50); Mean Corpuscular HGB Conc 32.7 g/dL (31.8-35.4); Mean Corpuscular Hemoglobin 32.8 pg (27.0-31.2); Mean Corpuscular Volume 100.1 fl (80-94); Monocytes # 0.4 K/mm3 (0.1-1.0); Monocytes % 7.6 % (1.7-9.3); Neutrophils # 3.7 K/mm3 (1.8-7.8); Platelet Count 302 K/mm3 (142-424); Red Blood Count 3.93 M/mm3 (4.60-6.20); Red Cell Distribution Width 13.4 % (11.5-17.5); White Blood Count 5.5 K/mm3 (4.8-10.8)
[2023-04-16 09:33] LABS: Alanine Aminotransferase 17 U/L (12-78); Albumin Level 4.2 g/dl (3.5-5.0); Albumin/Globulin Ratio 1.4 (1.1-1.8); Alkaline Phosphatase 73 U/L (38-126); Anion Gap 11.6 mEq/L (5-15); Aspartate Amino Transferase 28 U/L (17-59); Bilirubin,Total 0.3 mg/dl (0.2-1.3); Blood Urea Nitrogen 8 mg/dl (9-20); Carbon Dioxide 37 mmol/L (22.0-30.0); Creatinine Clearance Estimated 54 mL/min (50-200); Estimated Glomerular Filt Rate 135 ml/min (>60); GFR (African American) 164 ML/MIN (>60); Globulin 3.1 g/dL (1.3-3.2); Total Protein,Serum 7.3 g/dl (6.3-8.2)
[2023-04-16 09:34] LABS: Calcium 6.1 mg/dl (8.4-10.2); Glucose 100 mg/dl (74-100)
[2023-04-16 10:04] LABS: Thyroid Stimulating Hormone 0.88 uIU/mL (0.465-4.68)
[2023-04-16 10:30] VITALS: BP 131/83; PULSE 98; RESP 20; TEMP 36.8; O2SAT 100
[2023-04-16 11:10] VITALS: BP 138/75; PULSE 103; RESP 20
[2023-04-17 14:22] LABS: Adrenocorticotropic Hormone 29.3 pg/mL (7.2-63.3)
== END 2023-04-16 11:20 | disposition home or self-care (01) ==
LOC: INF 08:50
PROVIDERS: PCP Internal Medicine Adolescent Medicine; Visit Provider Internal Medicine Medical Oncology
DX: Z51.11 Encounter for antineoplastic chemotherapy (principal); C34.91 Malignant neoplasm of unspecified part of right bronchus or lung; Z79.899 Other long term (current) drug therapy
CPT/HCPCS: 80053; 82024; 82533; 84443; 85025; 96413; J1642; J2405; J9299

== ENCOUNTER → 2023-04-29 12:07 | Outpatient (CLI) | payer MEDICARE, SELFPAY ==
--- NOTE | 2023-04-29 12:25 | ECG_ITS ---
APPROVED REPORT Exam: Resting ECG HR:87 bpm ECG Measurements Heart Rate 87 AXES OR 156 P 88 QRSd 94 QRS 87 QT 389 T 85 QTc 434 Conclusion SINUS RHYTHM WITH OCCASIONAL SUPRAVENTRICULAR PREMATURE COMPLEXES Peaked T waves noted. ? Hyperkalemia? UNCONFIRMED REPORT Electronically signed by : Main Carrington MD 04/29/2023 21:48:00
== END ==
PROVIDERS: PCP Internal Medicine Adolescent Medicine; Visit Provider Internal Medicine Pulmonary Disease
DX: Z01.810 Encounter for preprocedural cardiovascular examination (principal)
CPT/HCPCS: 93005

== ENCOUNTER 2023-05-11 08:30 | Day surgery (SDC) | payer MEDICARE, SELFPAY ==
--- NOTE | 2023-05-08 09:49 | SUR.PREOP ---
diane in pulmonology called and stated dr. everett was aware pt took 325mg of aspirin yesterday and stated that was ok but pt needs to not take anymore prior to procedure and pt is aware.
[2023-05-11] VITALS (13 sets, daily range): BP systolic 113–153; BP diastolic 67–86; PULSE 80–94; RESP 12–24; TEMP 36.1–43; O2SAT 96–100; BMI 16.0
--- NOTE | 2023-05-11 09:12 | ECG_ITS ---
APPROVED REPORT Exam: Resting ECG HR:87 bpm ECG Measurements Heart Rate 87 AXES QRSd 92 QRS 84 QT 382 T 77 QTc 427 Conclusion Sinus tachycardia Pulmonary disease pattern with right atria abnormality ABNORMAL RHYTHM ECG UNCONFIRMED REPORT Electronically signed by : Main Carrington MD 05/11/2023 19:36:31
--- NOTE | 2023-05-11 09:46 | EXP.ANES.CKL ---
[facility] Disclaimer: The information contained in this section may have been updated after the patient was seen, as this information can be updated by other users. Medical History (Updated 05/07/23 @ 14:03 by Chuyita Musa RN) Allergies Asthma Bronchitis Cancer Chronic cough Chronic hypoxemic respiratory failure COPD (chronic obstructive pulmonary disease) COPD exacerbation Dyspnea on exertion Emphysema/COPD Essential hypertension History of anemia History of chemotherapy History of lung disease History of radiation therapy Hyperlipemia Lung collapse Nodule of right lung On home O2 Personal history of arthritis Pneumonia Sinus problem Sleep apnea Small cell lung cancer Smoking greater than 30 pack years Tobacco abuse counseling Tobacco abuse disorder Surgical History History of colonoscopy History of insertion of tunneled central venous catheter (CVC) with port History of sinus surgery Hx of cardiac catheterization Normal coronary arteries Family History Other Cancer Diabetes Social History (Updated 05/07/23 @ 14:05 by Chuyita Musa RN) Smoking Status: Current every day smoker tobacco type: cigarettes packs per day: 1 years smoked: 50 alcohol intake: current substance use type: denies use current occupational status: retired and disabled Travel in the last 8 weeks: Inside the [place] household members: spouse housing: house caffeine: Yes [facility] Anesthesia Checklist Patient Identification Patient Identification: Arm Band and Family Structural Data Admitted From: Home Planned Operative Procedure/s: Bronchoscopy with transbronchiel biopsy. Verified Documents: Surgical Consent and History and Physical NPO Status Verified Time NPO: 00:00 Additional verifications Patient : No Anesthesia Reactions: No Hx Blood Transfusions: No Blood Transfusion Reaction: No Cephalosporin Allergy: Yes Previous Colonoscopy: Yes Airway Assessment C-Spine Mobility Assessed: Yes TMJ Mobility Assessed: Yes Dentition: Poor Dentition Neurological Assessment Level of Consciousness: Awake, Alert, Appropriate and Follows Commands Hx Seizures: No Numbness or tingling in extremities: No Anesthesia Plan Anesthesia Risk discussed: Yes ASA Class: III Anesthesia Type: General Preoperative Comments Pre-Operative Comments: Malignant neoplasm of lungs, stage IV.
--- NOTE | 2023-05-11 09:47 | PC.NURSE ---
Brandon Ziegler CRNA and Dr. Webber both notified and ok with abnormal EKG.
[2023-05-11 09:50] LABS: Basophils % 0.4 % (0.1-2.0); Eosinophils # 0.5 K/mm3 (0.0-0.4); Eosinophils % 7.9 % (0.1-12.0); Hematocrit 35.8 % (42.0-52.0); Hemoglobin 11.6 g/dL (14.1-18.0); Lymphocytes % 14.8 % (10-50); Mean Corpuscular HGB Conc 32.5 g/dL (31.8-35.4); Mean Corpuscular Hemoglobin 31.9 pg (27.0-31.2); Mean Corpuscular Volume 98.2 fl (80-94); Mean Platelet Volume 7.3 fl (7.4-10.4); Monocytes # 0.5 K/mm3 (0.1-1.0); Monocytes % 7.1 % (1.7-9.3); Neutrophils # 4.6 K/mm3 (1.8-7.8); Neutrophils % 69.8 % (37.0-80.0); Platelet Count 269 K/mm3 (142-424); Red Blood Count 3.64 M/mm3 (4.60-6.20); Red Cell Distribution Width 13.8 % (11.5-17.5); White Blood Count 6.6 K/mm3 (4.8-10.8)
[2023-05-11 09:53] LABS: Chloride 99 mmol/L (98-107)
[2023-05-11 09:54] LABS: Sodium 140 mmol/L (136-145)
[2023-05-11 09:57] LABS: Blood Urea Nitrogen 8 mg/dl (9-20); Carbon Dioxide 36 mmol/L (22.0-30.0); Creatinine Clearance Estimated 53 mL/min (50-200); Estimated Glomerular Filt Rate 135 ml/min (>60); GFR (African American) 164 ML/MIN (>60); Glucose 84 mg/dl (74-100)
[2023-05-11 09:58] LABS: Calcium 5.1 mg/dl (8.4-10.2)
--- NOTE | 2023-05-11 10:00 | SUR.PREOP ---
Lab called with critical calcium level, 5.1. Telephoned into OR to Dr. gutierrez. said it's okay to continue.
--- NOTE | 2023-05-11 10:40 | XR_ITS ---
FINAL REPORT CLINICAL HISTORY: BRONCHOSCOPY fluoro time 118.1 seconds FINDINGS: FLUOROSCOPY LESS THAN 1 HOUR HISTORY: Fluoroscopy guided injection. FINDINGS: Fluoroscopic guidance was provided for bronchoscopy. No spot films were obtained. 118.1 seconds of fluoroscopy time were used. IMPRESSION: As above. Reviewed, Interpreted and Dictated by Apollo Rea III, MD Transcribed by Silvana Bush Authenticated and [facility]
--- NOTE | 2023-05-11 10:45 | EXP.BRONCH.N ---
Procedure: Date: 05/11/23 Patient Date of :: 1955 Procedure Performed:: Bronchoscopy, airway examination, bronchoalveolar lavage and transbronchial lung biopsy Indications:: Small cell lung cancer Right middle lobe collapse Performing Provider:: Napoleon Webber MD Referring Provider:: Main Carrington MD Sedation:: General anesthesia Procedure:: Bronchoscopy airway examination, bronchoalveolar lavage and transbronchial lung biopsy: A clean therapeutic bronchoscopy was advanced through the ET tube and airways were examined up to subsegmental bronchi. Airways appeared grossly normal, no evidence of mucoid secretions, mucous plugging active bleeding/old blood clots noted. No evidence of endobronchial lesion/mucous plugging an obvious etiology for the right middle lobe collapse noted on the airway examination Bronchoalveolar lavage was performed in the RIGHT MIDDLE LOBE with instillation of 60 cc normal saline with return of 15 cc back. BAL fluid was sent only for cytopathologic examination along with request of AFB and fungal stains Transbronchial biopsy was performed in the RIGHT MIDDLE LOBE with a total of 7 biopsies performed, 5 biopsy specimens were sent in formalin for cytopathologic examination. The other 2 biopsy samples, were sent one each in two separate normal saline specimen cups for bacterial fungal and AFB stain cultures. Special request was also made for the pathologist to evaluate for AFB and fungal organisms on the cytopathologic examination. Patient tolerated the procedure with no immediate acute complications. We will follow the patient in pulmonary clinic in 7 to 10 days. Findings:: Please see the procedure note Recommendations:: Postoperative bronchoscopy instructions Follow in pulmonary clinic in 7 to 10 days Complications:: No acute immediate complication Estimated blood obtained (mL): 5
--- NOTE | 2023-05-11 11:25 | XR_ITS ---
FINAL REPORT CLINICAL HISTORY: post bronch COMPARISON: 01/05/2023 FINDINGS: A single portable view of the chest was obtained. Right-sided chest port remains in place. The heart size and pulmonary vascularity are within normal limits. The mediastinum is within normal limits. The lungs are hyperinflated consistent with COPD. Left upper lobe nodule is visually partially smaller compared to the prior study. There are new opacities at the right lung base which may represent hemorrhage or pneumonia. No evidence of pneumothorax. The bony thorax is intact. IMPRESSION: No pneumothorax post bronchoscopy. New opacities right lung base may represent hemorrhage or pneumonia. Reviewed, Interpreted and Dictated by Apollo Rae III, MD Transcribed by Silvana Bush Authenticated and [facility]
--- NOTE | 2023-05-11 11:37 | P.PNANES_ITS ---
[facility] Anesthesia Record Part I Anesthesia Record I Intake, IV Amount: 500 Estimated blood loss (mL): 0 Urine output (mL): 0 Blood Products used (#): none Blood Pressure: 125/79 SaO2: 100 Pulse Rate: 87 Respiratory Rate: 24 Temperature: 98.2 F Patient is:: Drowsy and Stable Stable to PACU at:: 10:50
--- NOTE | 2023-05-11 13:55 | EXP.ANES.II ---
[facility] Anesthesia Record Part II Anesthesia Record Part II Discharge Time: 11:20 Destination: Surgical Day Care (OP Surgery) PACU nurse assessment reviewed?: Yes Patient Condition:: Good Anesthesia Complications:: None Swallowing reflex intact?: Yes Cyanosis?: No Blood Pressure: 132/86 Pulse Rate: 83 Temperature: 97 F Mental Status: Alert & Oriented Pain level:: 0 Nausea and/or vomitting:: None Intake, IV Amount: 0
== END 2023-05-11 12:35 | disposition home or self-care (01) ==
PROVIDERS: PCP Internal Medicine Adolescent Medicine; Visit Provider Internal Medicine Pulmonary Disease
PROC: (CPT 31624; principal; 2023-05-11 10:00)
DX: C34.31 Malignant neoplasm of lower lobe, right bronchus or lung (principal); F17.210 Nicotine dependence, cigarettes, uncomplicated; J96.11 Chronic respiratory failure with hypoxia; R91.1 Solitary pulmonary nodule; Z79.899 Other long term (current) drug therapy
CPT/HCPCS: 31624; 31628; 71045; 76000; 80048; 85025; 87070; 87077; 87102; 87116; 87186; 87205; 87206; 93005; J1642; J2405

== ENCOUNTER 2023-05-14 09:45 | Outpatient (CLI) | payer MEDICARE, SELFPAY ==
[2023-05-14 09:46] VITALS: BMI 16.9
[2023-05-14 10:44] VITALS: BP 138/98; PULSE 93; RESP 18; TEMP 36.9; O2SAT 98
[2023-05-14 11:30] VITALS: BP 153/77; PULSE 90; RESP 18; O2SAT 97
[2023-05-14 14:02] LABS: Thyroid Stimulating Hormone 1.15 uIU/mL (0.465-4.68)
== END 2023-05-14 11:30 | disposition home or self-care (01) ==
LOC: INF 09:45
PROVIDERS: PCP Internal Medicine Adolescent Medicine; Visit Provider Internal Medicine Medical Oncology
DX: Z79.899 Other long term (current) drug therapy (principal); C34.91 Malignant neoplasm of unspecified part of right bronchus or lung; Z45.2 Encounter for adjustment and management of vascular access device
CPT/HCPCS: 36591; 82024; 82533; 84443; 96413; J1642; J2405; J9299

== ENCOUNTER 2023-06-11 09:03 | Outpatient (CLI) | payer MEDICARE, SELFPAY ==
[2023-06-11 09:20] VITALS: BMI 16.6
[2023-06-11 09:31] LABS: Basophils % 0.3 % (0.1-2.0); Eosinophils # 0.5 K/mm3 (0.0-0.4); Eosinophils % 8.8 % (0.1-12.0); Hematocrit 36.8 % (42.0-52.0); Hemoglobin 11.5 g/dL (14.1-18.0); Lymphocytes % 17.3 % (10-50); Mean Corpuscular HGB Conc 31.2 g/dL (31.8-35.4); Mean Corpuscular Hemoglobin 31.4 pg (27.0-31.2); Mean Corpuscular Volume 100.5 fl (80-94); Mean Platelet Volume 8.2 fl (7.4-10.4); Monocytes # 0.4 K/mm3 (0.1-1.0); Monocytes % 7.3 % (1.7-9.3); Neutrophils # 3.8 K/mm3 (1.8-7.8); Neutrophils % 66.3 % (37.0-80.0); Platelet Count 299 K/mm3 (142-424); Red Blood Count 3.66 M/mm3 (4.60-6.20); Red Cell Distribution Width 13.7 % (11.5-17.5); White Blood Count 5.7 K/mm3 (4.8-10.8)
[2023-06-11 09:38] LABS: Chloride 101 mmol/L (98-107)
[2023-06-11 09:41] LABS: Alanine Aminotransferase 19 U/L (12-78); Albumin Level 3.9 g/dl (3.5-5.0); Albumin/Globulin Ratio 1.3 (1.1-1.8); Alkaline Phosphatase 82 U/L (38-126); Anion Gap 9.3 mEq/L (5-15); Aspartate Amino Transferase 30 U/L (17-59); Bilirubin,Total 0.2 mg/dl (0.2-1.3); Blood Urea Nitrogen 5 mg/dl (9-20); Carbon Dioxide 36 mmol/L (22.0-30.0); Creatinine Clearance Estimated 54 mL/min (50-200); Estimated Glomerular Filt Rate 135 ml/min (>60); GFR (African American) 163 ML/MIN (>60); Globulin 2.9 g/dL (1.3-3.2); Glucose 110 mg/dl (74-100); Potassium 3.3 mmoL/L (3.5-5.1); Sodium 143 mmol/L (136-145); Total Protein,Serum 6.8 g/dl (6.3-8.2)
[2023-06-11 09:42] LABS: Calcium 5.5 mg/dl (8.4-10.2)
[2023-06-11 10:11] LABS: Thyroid Stimulating Hormone 0.96 uIU/mL (0.465-4.68)
[2023-06-11 10:45] VITALS: BP 152/88; PULSE 87; RESP 19; TEMP 36.8; O2SAT 98
--- NOTE | 2023-06-11 10:53 | PC.NURSE ---
0942- Kelly Jacome from lab called critical results to RAISA. Ca of 5.5. Pt name, and lab result verified and read back by RN. MD Katheryn notified and no new orders given.
[2023-06-11 11:20] VITALS: BP 151/81; PULSE 86; RESP 18
[2023-06-12 17:35] LABS: Adrenocorticotropic Hormone 37.1 pg/mL (7.2-63.3)
== END 2023-06-11 11:20 | disposition home or self-care (01) ==
LOC: INF 09:03
PROVIDERS: PCP Internal Medicine Adolescent Medicine; Visit Provider Internal Medicine Medical Oncology
DX: C34.90 Malignant neoplasm of unspecified part of unspecified bronchus or lung (principal); Z79.899 Other long term (current) drug therapy
CPT/HCPCS: 80053; 82024; 82533; 84443; 85025; 96413; J1642; J2405; J9299

== ENCOUNTER → 2023-07-07 13:35 | Outpatient (CLI) | payer MEDICARE, SELFPAY ==
--- NOTE | 2023-07-08 10:28 | CT_ITS ---
FINAL REPORT TECHNIQUE: Axial images were obtained through the chest without contrast. CLINICAL HISTORY: RML collapse/Lung Cancer COMPARISON: 03/16/2023 FINDINGS: A right upper anterior chest port is present with the tip in the SVC. There is abnormal soft tissue density at the right hilum with associated linear stranding or scarring, stable compared to the prior exam. A soft tissue mass in the posterior left upper lobe measures 1.8 x 2.0 cm and is seen on image 81 series 3. This appears similar to the previous exam. It does appear somewhat linear on the coronal images. There are moderately advanced changes of centrilobular emphysema. There is a small cavitary focus in the periphery of the right lower lobe measuring 1.4 cm in greatest dimension. This is more clearly cavitary than on the previous exam and is well seen on images 182-186. A calcified granuloma is seen in the left lung base. IMPRESSION: Stable abnormal opacity in the right hilum and stable linear density in the left upper lobe. Resolution of previously noted right middle lobe atelectasis. Interval development of cavitary changes associated with opacity in the periphery of the right lower lobe. It is unclear if this is inflammatory or neoplastic. Continued follow-up is recommended. Reviewed, Interpreted and Dictated by Kar Bowden MD Transcribed by Kathrine Tucker Authenticated and . [facility]
== END ==
PROVIDERS: PCP Internal Medicine Adolescent Medicine; Visit Provider Internal Medicine Pulmonary Disease
DX: R91.8 Other nonspecific abnormal finding of lung field (principal); R06.02 Shortness of breath
CPT/HCPCS: 71250

== ENCOUNTER 2023-08-06 09:10 | Outpatient (CLI) | payer MEDICARE, SELFPAY ==
[2023-08-06 09:13] VITALS: BMI 16.5
[2023-08-06 09:37] LABS: Basophils % 0.5 % (0.1-2.0); Eosinophils # 0.7 K/mm3 (0.0-0.4); Eosinophils % 9.6 % (0.1-12.0); Hematocrit 39.9 % (42.0-52.0); Hemoglobin 12.5 g/dL (14.1-18.0); Lymphocytes # 1.3 K/mm3 (0.7-4.5); Mean Corpuscular HGB Conc 31.5 g/dL (31.8-35.4); Mean Corpuscular Volume 101.7 fl (80-94); Mean Platelet Volume 8.2 fl (7.4-10.4); Monocytes # 0.4 K/mm3 (0.1-1.0); Monocytes % 6.3 % (1.7-9.3); Neutrophils # 4.6 K/mm3 (1.8-7.8); Neutrophils % 64.7 % (37.0-80.0); Platelet Count 286 K/mm3 (142-424); Red Blood Count 3.92 M/mm3 (4.60-6.20); Red Cell Distribution Width 14.1 % (11.5-17.5)
[2023-08-06 09:41] LABS: Alanine Aminotransferase 18 U/L (12-78); Albumin Level 4.1 g/dl (3.5-5.0); Albumin/Globulin Ratio 1.3 (1.1-1.8); Alkaline Phosphatase 66 U/L (38-126); Anion Gap 15.8 mEq/L (5-15); Aspartate Amino Transferase 32 U/L (17-59); Bilirubin,Total 0.3 mg/dl (0.2-1.3); Blood Urea Nitrogen 6 mg/dl (9-20); Calcium 6.1 mg/dl (8.4-10.2); Carbon Dioxide 30 mmol/L (22.0-30.0); Chloride 98 mmol/L (98-107); Creatinine Clearance Estimated 54 mL/min (50-200); Estimated Glomerular Filt Rate 113 ml/min (>60); GFR (African American) 137 ML/MIN (>60); Globulin 3.1 g/dL (1.3-3.2); Glucose 128 mg/dl (74-100); Potassium 3.8 mmoL/L (3.5-5.1); Sodium 140 mmol/L (136-145); Total Protein,Serum 7.2 g/dl (6.3-8.2)
[2023-08-06 10:12] LABS: Thyroid Stimulating Hormone 1.05 uIU/mL (0.465-4.68)
[2023-08-06 10:55] VITALS: BP 146/80; PULSE 86; RESP 20; TEMP 36.6; O2SAT 100
[2023-08-06 11:36] VITALS: BP 124/68; PULSE 92; RESP 19; O2SAT 100
[2023-08-07 15:04] LABS: Adrenocorticotropic Hormone 34.6 pg/mL (7.2-63.3)
== END 2023-08-06 11:36 | disposition home or self-care (01) ==
LOC: INF 09:11
PROVIDERS: PCP Internal Medicine Adolescent Medicine; Visit Provider Internal Medicine Medical Oncology
DX: Z79.899 Other long term (current) drug therapy; C34.91 Malignant neoplasm of unspecified part of right bronchus or lung; Z45.2 Encounter for adjustment and management of vascular access device
CPT/HCPCS: 80053; 82024; 82533; 84443; 85025; 96413; J1642; J2405; J9299

== ENCOUNTER 2023-09-03 09:11 | Outpatient (CLI) | payer MEDICARE, SELFPAY ==
[2023-09-03 09:19] VITALS: BMI 16.9
[2023-09-03 09:39] LABS: Basophils % 0.3 % (0.1-2.0); Eosinophils # 0.3 K/mm3 (0.0-0.4); Eosinophils % 4.2 % (0.1-12.0); Hematocrit 36.8 % (42.0-52.0); Hemoglobin 12.7 g/dL (14.1-18.0); Lymphocytes # 1.4 K/mm3 (0.7-4.5); Lymphocytes % 19.3 % (10-50); Mean Corpuscular HGB Conc 34.4 g/dL (31.8-35.4); Mean Corpuscular Hemoglobin 34.3 pg (27.0-31.2); Mean Corpuscular Volume 99.5 fl (80-94); Mean Platelet Volume 7.9 fl (7.4-10.4); Monocytes # 0.7 K/mm3 (0.1-1.0); Monocytes % 9.8 % (1.7-9.3); Neutrophils % 66.4 % (37.0-80.0); Platelet Count 229 K/mm3 (142-424); Red Cell Distribution Width 14.2 % (11.5-17.5); White Blood Count 7.5 K/mm3 (4.8-10.8)
[2023-09-03 09:47] LABS: Chloride 96 mmol/L (98-107)
[2023-09-03 09:48] LABS: Potassium 3.9 mmoL/L (3.5-5.1); Sodium 137 mmol/L (136-145)
[2023-09-03 09:50] LABS: Alanine Aminotransferase 16 U/L (12-78); Albumin Level 4.1 g/dl (3.5-5.0); Alkaline Phosphatase 89 U/L (38-126); Aspartate Amino Transferase 33 U/L (17-59); Bilirubin,Total 0.3 mg/dl (0.2-1.3); Blood Urea Nitrogen 6 mg/dl (9-20); Creatinine Clearance Estimated 55 mL/min (50-200); Estimated Glomerular Filt Rate 135 ml/min (>60); GFR (African American) 163 ML/MIN (>60)
[2023-09-03 09:51] LABS: Albumin/Globulin Ratio 1.3 (1.1-1.8); Anion Gap 10.9 mEq/L (5-15); Carbon Dioxide 34 mmol/L (22.0-30.0); Globulin 3.2 g/dL (1.3-3.2); Glucose 105 mg/dl (74-100); Total Protein,Serum 7.3 g/dl (6.3-8.2)
[2023-09-03 10:04] LABS: Calcium 5.2 mg/dl (8.4-10.2)
[2023-09-03 10:21] LABS: Thyroid Stimulating Hormone 1.48 uIU/mL (0.465-4.68)
[2023-09-03 11:10] VITALS: BP 157/87; PULSE 96; RESP 20; TEMP 36.7; O2SAT 99
[2023-09-03 12:01] VITALS: BP 150/76; PULSE 95; RESP 19; O2SAT 98
[2023-09-04 14:34] LABS: Adrenocorticotropic Hormone 28.3 pg/mL (7.2-63.3)
== END 2023-09-03 12:01 | disposition home or self-care (01) ==
LOC: INF 09:12
PROVIDERS: PCP Internal Medicine Adolescent Medicine; Visit Provider Internal Medicine Medical Oncology
DX: C34.90 Malignant neoplasm of unspecified part of unspecified bronchus or lung (principal); Z79.899 Other long term (current) drug therapy; Z51.11 Encounter for antineoplastic chemotherapy
CPT/HCPCS: 80053; 82024; 82533; 84443; 85025; 96413; J1642; J2405; J9299

== ENCOUNTER 2023-10-06 08:31 | Outpatient (CLI) | payer MEDICARE, SELFPAY ==
[2023-10-06 08:38] VITALS: BMI 16.5
[2023-10-06 09:21] LABS: Chloride 94 mmol/L (98-107); Potassium 3.9 mmoL/L (3.5-5.1); Sodium 135 mmol/L (136-145)
[2023-10-06 09:22] LABS: Basophils % 0.3 % (0.1-2.0); Eosinophils # 0.5 K/mm3 (0.0-0.4); Hematocrit 37.8 % (42.0-52.0); Hemoglobin 12.6 g/dL (14.1-18.0); Lymphocytes # 1.1 K/mm3 (0.7-4.5); Lymphocytes % 15.4 % (10-50); Mean Corpuscular HGB Conc 33.3 g/dL (31.8-35.4); Mean Corpuscular Hemoglobin 33.2 pg (27.0-31.2); Mean Corpuscular Volume 99.5 fl (80-94); Mean Platelet Volume 7.9 fl (7.4-10.4); Monocytes # 0.4 K/mm3 (0.1-1.0); Monocytes % 6.1 % (1.7-9.3); Neutrophils # 5.2 K/mm3 (1.8-7.8); Neutrophils % 71.3 % (37.0-80.0); Platelet Count 261 K/mm3 (142-424); Red Cell Distribution Width 13.8 % (11.5-17.5); White Blood Count 7.3 K/mm3 (4.8-10.8)
[2023-10-06 09:24] LABS: Alanine Aminotransferase 17 U/L (12-78); Albumin Level 4.5 g/dl (3.5-5.0); Albumin/Globulin Ratio 1.5 (1.1-1.8); Alkaline Phosphatase 86 U/L (38-126); Anion Gap 10.9 mEq/L (5-15); Aspartate Amino Transferase 34 U/L (17-59); Bilirubin,Total 0.6 mg/dl (0.2-1.3); Blood Urea Nitrogen 5 mg/dl (9-20); Calcium 6.1 mg/dl (8.4-10.2); Carbon Dioxide 34 mmol/L (22.0-30.0); Creatinine Clearance Estimated 54 mL/min (50-200); Estimated Glomerular Filt Rate 113 ml/min (>60); GFR (African American) 137 ML/MIN (>60); Globulin 3.1 g/dL (1.3-3.2); Glucose 109 mg/dl (74-100); Total Protein,Serum 7.6 g/dl (6.3-8.2)
[2023-10-06 09:55] LABS: Thyroid Stimulating Hormone 1.16 uIU/mL (0.465-4.68)
[2023-10-06 11:05] VITALS: BP 140/66; PULSE 102; RESP 18; TEMP 36.6; O2SAT 98
[2023-10-06 11:20] VITALS: BP 143/65; PULSE 100
[2023-10-06 11:43] VITALS: BP 140/71; PULSE 104; RESP 20; O2SAT 95
[2023-10-07 14:12] LABS: Adrenocorticotropic Hormone 31.4 pg/mL (7.2-63.3)
== END 2023-10-06 12:00 | disposition home or self-care (01) ==
LOC: INF 08:32
PROVIDERS: PCP Internal Medicine Adolescent Medicine; Visit Provider Internal Medicine Medical Oncology
DX: C34.90 Malignant neoplasm of unspecified part of unspecified bronchus or lung (principal); Z79.899 Other long term (current) drug therapy
CPT/HCPCS: 80053; 82024; 82533; 84443; 85025; 96413; J1642; J2405; J9299

== ENCOUNTER 2023-10-09 08:22 | Outpatient (CLI) | payer MEDICARE, SELFPAY ==
--- NOTE | 2023-10-09 08:22 | CT_ITS ---
FINAL REPORT TECHNIQUE: Routine axial images were obtained from the lung apices to below the diaphragm following IV contrast administration. Individualized dose reduction techniques using automated exposure control or adjustment of the mA and/or kV according to the patient size were employed. CLINICAL HISTORY: Lung nodule and lymphadenopathy -3-month follow-up COMPARISON: 07/08/2023 FINDINGS: Advanced changes of centrilobular emphysema are once again identified. No acute lung disease is present. No pleural or pericardial effusion is seen. The posterior left upper lobe nodule noted on the prior examination measures 1.8 x 1.6 cm in size, best seen on image #22 series 6. This is essentially unchanged in appearance since the prior exam. The cavitary focus in the peripheral right lower lobe measures 1.4 x 1.1 cm in size on today's exam, essentially stable. This is best seen on image #59 of series 6. The soft tissue linear density in the right hilum is also stable, and may represent scarring, possibly post treatment. IMPRESSION: Advanced changes of centrilobular emphysema. Multiple nodules as described remained stable since the prior CT examination of July 08. Reviewed, Interpreted and Dictated by Kar Bowden MD Transcribed by Gale James Authenticated and [facility]
--- NOTE | 2023-10-09 08:31 | CT_ITS ---
FINAL REPORT CLINICAL HISTORY: LUNG CANCER COMPARISON: 03/16/2023 FINDINGS: There are multiple small low-attenuation foci in the liver which are too small to accurately characterize but are favored to represent subcentimeter benign cysts. The spleen is unremarkable. The adrenals are normal. The pancreas is unremarkable. There are several low-attenuation foci in the right kidney which are probably related to small benign cysts. There is a large amount of stool throughout redundant colon. Urinary bladder is normal in size and configuration. Precontrast images demonstrate tiny subtle densities in the renal collecting system bilaterally which may represent tiny nonobstructing stones. IMPRESSION: Small stable benign cysts in the liver and right kidney. Large amount of stool in the colon. Reviewed, Interpreted and Dictated by Kar Bowden MD Transcribed by Silvana Bush Authenticated and [facility]
== END 2023-10-09 08:52 | disposition home or self-care (01) ==
PROVIDERS: PCP Internal Medicine Adolescent Medicine; Visit Provider Internal Medicine Pulmonary Disease
DX: R59.0 Localized enlarged lymph nodes (principal); R91.1 Solitary pulmonary nodule
CPT/HCPCS: 71260; 74178; J1642; Q9967

== ENCOUNTER 2023-11-17 09:07 | Outpatient (CLI) | payer MEDICARE, SELFPAY ==
[2023-11-17 09:10] VITALS: BMI 17.2
[2023-11-17 09:29] LABS: Basophils % 0.4 % (0.1-2.0); Eosinophils # 0.4 K/mm3 (0.0-0.4); Eosinophils % 6.5 % (0.1-12.0); Hemoglobin 12.1 g/dL (14.1-18.0); Lymphocytes # 1.2 K/mm3 (0.7-4.5); Lymphocytes % 19.3 % (10-50); Mean Corpuscular HGB Conc 33.5 g/dL (31.8-35.4); Mean Corpuscular Hemoglobin 33.4 pg (27.0-31.2); Mean Corpuscular Volume 99.7 fl (80-94); Mean Platelet Volume 7.8 fl (7.4-10.4); Monocytes # 0.4 K/mm3 (0.1-1.0); Monocytes % 7.1 % (1.7-9.3); Neutrophils % 66.8 % (37.0-80.0); Platelet Count 278 K/mm3 (142-424); Red Blood Count 3.61 M/mm3 (4.60-6.20); Red Cell Distribution Width 13.4 % (11.5-17.5)
[2023-11-17 09:35] LABS: Chloride 95 mmol/L (98-107); Potassium 3.9 mmoL/L (3.5-5.1); Sodium 138 mmol/L (136-145)
[2023-11-17 09:37] LABS: Alanine Aminotransferase 15 U/L (12-78); Blood Urea Nitrogen 13 mg/dl (9-20); Creatinine Clearance Estimated 56 mL/min (50-200); Estimated Glomerular Filt Rate 113 ml/min (>60); GFR (African American) 137 ML/MIN (>60)
[2023-11-17 09:38] LABS: Albumin/Globulin Ratio 1.3 (1.1-1.8); Alkaline Phosphatase 83 U/L (38-126); Anion Gap 11.9 mEq/L (5-15); Aspartate Amino Transferase 30 U/L (17-59); Bilirubin,Total 0.4 mg/dl (0.2-1.3); Calcium 6.7 mg/dl (8.4-10.2); Carbon Dioxide 35 mmol/L (22.0-30.0); Glucose 117 mg/dl (74-100)
[2023-11-17 10:09] LABS: Thyroid Stimulating Hormone 0.98 uIU/mL (0.465-4.68)
[2023-11-17] MEDS: ONDANSETRON 4MG/2ML VIAL 8 MG IV (10:15)
[2023-11-17] MEDS: NIVOLUMAB IV (10:55)
[2023-11-17] MEDS: SODIUM CHLORIDE 0.9% IV (10:55)
[2023-11-17 11:00] VITALS: BP 142/84; PULSE 90; RESP 20; TEMP 36.4; O2SAT 100
[2023-11-17] MEDS: SODIUM CHLORIDE 0.9% 50ML BAG 50 ML IV (11:00)
[2023-11-17] MEDS: SODIUM CHLORIDE 0.9% 10ML FLUSH SYRINGE 10 ML IV (12:13)
[2023-11-17 12:17] VITALS: BP 140/99; PULSE 100; RESP 19; O2SAT 100
[2023-11-18 15:02] LABS: Adrenocorticotropic Hormone 36.9 pg/mL (7.2-63.3)
== END 2023-11-17 12:17 | disposition home or self-care (01) ==
LOC: INF 09:08
PROVIDERS: PCP Internal Medicine Adolescent Medicine; Visit Provider Internal Medicine Medical Oncology
DX: C34.90 Malignant neoplasm of unspecified part of unspecified bronchus or lung (principal); Z79.899 Other long term (current) drug therapy
CPT/HCPCS: 80053; 82024; 82533; 84436; 84443; 85025; 96413; J1642; J2405; J9299

== ENCOUNTER 2023-12-16 08:26 | Outpatient (CLI) | payer MEDICARE, SELFPAY ==
[2023-12-16 08:30] VITALS: BMI 16.9
[2023-12-16 08:48] LABS: Basophils % 0.6 % (0.1-2.0); Eosinophils # 0.5 K/mm3 (0.0-0.4); Hematocrit 38.9 % (42.0-52.0); Hemoglobin 12.9 g/dL (14.1-18.0); Lymphocytes # 1.1 K/mm3 (0.7-4.5); Lymphocytes % 15.7 % (10-50); Mean Corpuscular HGB Conc 33.1 g/dL (31.8-35.4); Mean Corpuscular Hemoglobin 33.5 pg (27.0-31.2); Monocytes # 0.4 K/mm3 (0.1-1.0); Monocytes % 6.3 % (1.7-9.3); Neutrophils # 4.9 K/mm3 (1.8-7.8); Neutrophils % 70.4 % (37.0-80.0); Platelet Count 323 K/mm3 (142-424); Red Blood Count 3.85 M/mm3 (4.60-6.20); Red Cell Distribution Width 13.5 % (11.5-17.5)
[2023-12-16 09:02] LABS: Chloride 97 mmol/L (98-107)
[2023-12-16 09:03] LABS: Potassium 3.7 mmoL/L (3.5-5.1); Sodium 138 mmol/L (136-145)
[2023-12-16 09:05] LABS: Alanine Aminotransferase 20 U/L (12-78); Alkaline Phosphatase 77 U/L (38-126); Anion Gap 8.7 mEq/L (5-15); Aspartate Amino Transferase 36 U/L (17-59); Bilirubin,Total 0.5 mg/dl (0.2-1.3); Blood Urea Nitrogen 10 mg/dl (9-20); Carbon Dioxide 36 mmol/L (22.0-30.0); Creatinine Clearance Estimated 55 mL/min (50-200); Estimated Glomerular Filt Rate 135 ml/min (>60); GFR (African American) 163 ML/MIN (>60)
[2023-12-16 09:06] LABS: Albumin Level 4.3 g/dl (3.5-5.0); Albumin/Globulin Ratio 1.4 (1.1-1.8); Calcium 6.4 mg/dl (8.4-10.2); Globulin 3.1 g/dL (1.3-3.2); Glucose 131 mg/dl (74-100); Total Protein,Serum 7.4 g/dl (6.3-8.2)
[2023-12-16] MEDS: ONDANSETRON 4MG/2ML VIAL 8 MG (10:05)
[2023-12-16] MEDS: NIVOLUMAB IV (10:43)
[2023-12-16] MEDS: SODIUM CHLORIDE 0.9% IV (10:43)
[2023-12-16 10:50] VITALS: BP 160/111; PULSE 98; RESP 21; TEMP 36.1; O2SAT 100
[2023-12-16] MEDS: SODIUM CHLORIDE 0.9% 10ML FLUSH SYRINGE 10 ML IV (11:55)
[2023-12-16 12:05] VITALS: BP 158/68; PULSE 89; RESP 21; O2SAT 98
== END 2023-12-16 12:05 | disposition home or self-care (01) ==
LOC: INF 08:27
PROVIDERS: PCP Internal Medicine Adolescent Medicine; Visit Provider Internal Medicine Medical Oncology
DX: C34.90 Malignant neoplasm of unspecified part of unspecified bronchus or lung (principal); Z79.899 Other long term (current) drug therapy; Z51.11 Encounter for antineoplastic chemotherapy; F17.210 Nicotine dependence, cigarettes, uncomplicated
CPT/HCPCS: 80053; 85025; 96413; J1642; J2405; J9299

== ENCOUNTER 2023-12-29 21:57 | Emergency (ER) | payer MEDICARE, SELFPAY ==
[2023-12-29 21:58] VITALS: BP 158/93; PULSE 98; RESP 20; TEMP 36.9; O2SAT 100; BMI 16.9
--- NOTE | 2023-12-29 22:24 | ED_ITS ---
I was consulted by the ABEBA, and we discussed the complexity of the problems being addressed. I approved the treatment and management plan for this patient's care in the emergency department, thus performing a substantive portion of the medical decision making. Kari Davies MD, BRONSON, FACE Discharge Plan Disposition Patient Disposition: Home, Self-Care Prescriptions Prescriptions: New prednisone 50 mg tablet 50 mg PO DAILY 5 Days Qty: 5 0RF No Action propranolol 10 mg tablet 10 mg PO BID Patient Comments: TAKE 1 TABLET BY MOUTH TWICE DAILY cyclobenzaprine 10 mg tablet 10 mg PO TIDP PRN (Reason: Muscle Spasm) trazodone 150 mg tablet 150 mg PO DAILY lidocaine-prilocaine 2.5-2.5 % cream 2.5 g topical DIRECTED PRN (Reason: NUMB ) Patient Comments: USE DIRECTED albuterol sulfate 90 mcg/actuation HFA aerosol inhaler 2 inh IH QID PRN (Reason: shortness of breath or wheezing) 90 Days Qty: 8.5 2RF Trelegy Ellipta 100-62.5-25 mcg blister with device 1 inh inhalation DAILY aspirin 325 mg Tablet 325 mg PO DAILY Referrals Follow up/Referrals: Main Carrington MD [Primary Care Provider] - See instructions Activity Restrictions/Add. Instructions Additional Instructions/Restrictions: Please take prednisone as prescribed for treatment of COPD exacerbation. Please continue taking cefdinir as previously prescribed. Please begin using your nebulizer treatments at home. Clinical Impressions Clinical Impression: Acute exacerbation of chronic obstructive pulmonary disease, Dyspnea Discharge ED Provider: Kari Davies General Adult HPI <ANÍBAL Harvey - Last Filed: 12/29/23 22:59> General Chief complaint: Shortness of Breath/Dyspnea Stated complaint: feels like throat is closing, antolin Time Seen by Provider: 12/29/23 22:13 History of Present Illness HPI narrative: Chronic 3 LPatient is a 68-year-old male with a past medical history of severe COPD who does not utilize his home nebulizers, on per minute for chronic hypoxemic respiratory failure, ongoing tobaccoism, 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 Patient was prescribed Omnicef by his PCP for sinus infection yesterday. Patient took medication yesterday and today however he states this evening that he is throat was closing up and he believes it is because of the Omnicef. Related Data Home Medications Medication Instructions Recorded Confirmed cyclobenzaprine 10 mg tablet 10 mg PO TIDP PRN Muscle Spasm 05/20/19 11/17/23 trazodone 150 mg tablet 150 mg PO DAILY sleep 07/03/22 11/17/23 fluticasone fur. 100 mcg-umeclid 1 inh inhalation DAILY Copd 01/05/23 11/17/23 62.5 mcg-vilant 25 mcg inhalat.powder (Trelegy Ellipta) lidocaine-prilocaine 2.5 %-2.5 % 2.5 g topical DIRECTED PRN NUMB 01/20/23 0 11/17/23 topical cream aspirin 325 mg tablet 325 mg PO DAILY Heart Disease 05/11/23 11/17/23 propranolol 10 mg tablet 10 mg PO BID 12/16/23 12/16/23 Previous Rx's Medication Instructions Recorded albuterol sulfate 90 mcg/actuation 2 inh inhalation QID PRN shortness 11/12/23 aerosol inhaler of breath or wheezing 90 days #8.5 grams prednisone 50 mg tablet 50 mg PO DAILY 5 days #5 tabs 12/30/23 Allergies Allergy/AdvReac Type Severity Reaction Status Date / Time silver Allergy Severe Rash Verified 12/16/23 09:38 [From Tegaderm AG Mesh] Penicillins [PENICILLINS] Allergy Mild Verified 12/16/23 09:38 amitriptyline AdvReac Intermediate gi upset Verified 12/16/23 09:38 adhesive AdvReac Verified 12/16/23 09:38 hydrocodone AdvReac Verified 12/16/23 09:38 [facility] <ANÍBAL Harvey - Last Filed: 12/29/23 22:59> [facility] Disclaimer: The information contained in this section may have been updated after the patient was seen, as this information can be updated by other users. Medical History Allergies Asthma Bronchitis Cancer small cell lung ca Chronic cough Chronic hypoxemic respiratory failure COPD (chronic obstructive pulmonary disease) COPD exacerbation Dyspnea on exertion Emphysema/COPD Essential hypertension Hilar lymphadenopathy History of anemia History of chemotherapy History of lung disease History of radiation therapy Hyperlipemia Lung collapse Lung nodule Nodule of right lung On home O2 Personal history of arthritis Pneumonia Sinus problem Sleep apnea Small cell lung cancer Smoking greater than 30 pack years Tobacco abuse counseling Tobacco abuse disorder Surgical History History of colonoscopy History of insertion of tunneled central venous catheter (CVC) with port History of sinus surgery Hx of cardiac catheterization Normal coronary arteries Family History Other Cancer Diabetes Social History Smoking Status: Current every day smoker tobacco type: cigarettes packs per day: 1 years smoked: 50 alcohol intake: current substance use type: denies use current occupational status: retired and disabled Travel in the last 8 weeks: None household members: spouse housing: house caffeine: Yes <ANÍBAL Harvey - Last Filed: 12/29/23 22:59> ROS Obtained: Yes Systems reviewed as appropriate & no additional complaints except as documented Physical Exam <ANÍBAL Harvey - Last Filed: 12/29/23 22:59> Narrative Physical exam: Patient is a well-nourished well-developed 68-year-old gentleman otherwise in no acute distress General General appearance: alert and in no apparent distress ENT ENT exam: Present other (Patient has dental caries teeth loss and very poor remaining dentition. Oropharynx is widely patent with no evidence of erythema edema exudate drainage. Phonation is normal. Palpation reveals no tenderness swelling edema erythema. ) Respiratory Respiratory exam: Present normal lung sounds bilaterally Cardiovascular Cardiovascular exam: Present regular rate and normal rhythm Neurological Exam Neurological exam: Present alert and oriented X3 Medical Decision Making <ANÍBAL Harvey - Last Filed: 12/29/23 22:59> Medical Records Medical records reviewed: Yes I reviewed the patient's medical records. [place]var[place] Inquiry Pt receiving controlled substance: No Vital Signs: 12/29/23 21:58 12/29/23 22:30 12/29/23 23:28 Temperature 98.4 F Temperature Source Oral Pulse Rate 95 H 103 H Pulse Rate [Right] 98 H Respiratory Rate 20 24 Blood Pressure 132/88 135/86 Blood Pressure [Right Arm] 158/93 H Blood Pressure Mean 114 116 Blood Pressure Mean [Right Arm] 114 02 Sat by Pulse Oximetry 100 100 98 Oxygen Delivery Method Room Air Oxygen Flow Rate (LPM) 3 3 12/29/23 23:30 Temperature Temperature Source Pulse Rate 103 H Pulse Rate [Right] Respiratory Rate 24 Blood Pressure 157/88 H Blood Pressure [Right Arm] Blood Pressure Mean 111 Blood Pressure Mean [Right Arm] 02 Sat by Pulse Oximetry 98 Oxygen Delivery Method Oxygen Flow Rate (LPM) 3 Lab Data Lab results reviewed: Yes I reviewed the patient's lab results. Lab Results 12/29/23 22:48: WBC 7.4, RBC 4.03 L, Hgb 13.0 L, Hct 39.3 L, MCV 97.6 H, MCH 32.2 H, MCHC 33.0, RDW 13.4, Plt Count 261, MPV 8.0, Neut % (Auto) 64.5, Lymph % (Auto) 18.9, [place] % (Auto) 7.5, Eos % (Auto) 8.9, Baso % (Auto) 0.1, Neut # (Auto) 4.8, Lymph # (Auto) 1.4, [place] # (Auto) 0.6, Eos # (Auto) 0.7 H, Baso # (Auto) 0.0, D-Dimer 0.51 H, Sodium 137, Potassium 4.0, Chloride 97 L, Carbon Dioxide 34 H, Anion Gap 10.0, BUN 9, Creatinine 0.60 L, Estimated Creat Clear 55, Estimated GFR 135, Est GFR ( Amer) 163, Glucose 109 H, Lactate < 0.5 L, Calcium 6.2 L, Magnesium 1.6, Troponin I < 0.01 12/29/23 23:05: SARS-CoV-2 (PCR) Not detected, Influenza A Untype (PCR) Not detected, Influenza Type B (PCR) Not detected 12/29/23 22:48 12/29/23 22:48 Orders (Tests/Meds): ED MEDICATIONS Generic Name Dose Route Start Last Admin Trade Name Freq PRN Reason Stop Dose Admin Magnesium Sulfate 2 gm in 50 mls @ 50 mls/hr 12/29/23 23:17 12/29/23 23:20 Magnesium Sulfate 2gm/50ml Premix IV 12/30/23 00:16 50 mls/hr ONCE ONE Administration Discontinued Medications Generic Name Dose Route Start Last Admin Trade Name Freq PRN Reason Stop Dose Admin Acetaminophen 1,000 mg 12/29/23 22:24 12/29/23 22:55 Acetaminophen 1,000mg/100ml Vial IV 12/29/23 22:25 1,000 mg ONCE ONE Administration Albuterol/Ipratropium 3 ml 12/29/23 22:24 12/29/23 22:55 Ipratropium/Albuterol 3 Ml [facility] 12/29/23 22:25 3 ml ONCE ONE Administration Albuterol/Ipratropium 6 ml 12/29/23 23:17 12/29/23 23:21 Ipratropium/Albuterol 3 Ml [facility] 12/29/23 23:18 6 ml ONCE ONE Administration Methylprednisolone Sodium Succinate 125 mg 12/30/23 00:03 Methylprednisolone Sod Succ 125mg Vial IV 12/30/23 00:04 ONCE ONE ORDERS Category Date Time Status Chest XR -- portable [XR chest portable] Stat Exams 12/29/23 22:25 Completed BMP [Basic Metabolic Panel] Stat Lab 12/29/23 22:48 Completed CBC w/Auto Diff [Complete Blood Count Auto Diff] Stat Lab 12/29/23 22:48 Completed D-Dimer Stat Lab 12/29/23 22:48 Completed Lactic Acid Stat Lab 12/29/23 22:48 Completed Magnesium Stat Lab 12/29/23 22:48 Completed Rapid PCR Covid and Flu A/B Stat Lab 12/29/23 23:05 Completed Trop I [Troponin I] Stat Lab 12/29/23 22:48 Completed Troponin I Q3H Lab 12/30/23 01:30 Ordered Troponin I Q3H Lab 12/30/23 04:30 Ordered Blood Culture Stat Micro 12/29/23 22:40 Received EKG Request [ECG Request] Stat Y 12/29/23 22:25 Ordered Medical Decision Narrative: In summary patient is a 88-year-old male who presents to the emergency department for evaluation of dyspnea described as my throat is closing off . Patient is hemodynamically stable upon arrival, afebrile. Physical exam shows widely patent upper airway but no concern for obstruction edema erythema normal phonation. patient does have history of 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 Patient does have a coarse upper airway sounds but is satting currently at 100% on his 3 L by nasal cannula. Patient has diminished air entry and diminished breath sounds in bilateral lung mcgill without adventitious sounds or wheeze. Differential diagnosis includes upper respiratory tract infection, COPD exacerbation, PE, ACS, allergic reaction, COPD exacerbation. Initial workup will be conducted with hematologic labs plain film chest x-ray twelve-lead EKG COVID flu swabs. Initial interventions include DuoNeb Tylenol. At this point we are awaiting results of initial workup at the time of transfer to Dr. Sierra at 2300 hrs. <Kari Davies MD - Last Filed: 12/29/23 23:02> Vital Signs: 12/29/23 21:58 12/29/23 22:30 12/29/23 23:28 Temperature 98.4 F Temperature Source Oral Pulse Rate 95 H 103 H Pulse Rate [Right] 98 H Respiratory Rate 20 24 Blood Pressure 132/88 135/86 Blood Pressure [Right Arm] 158/93 H Blood Pressure Mean 114 116 Blood Pressure Mean [Right Arm] 114 02 Sat by Pulse Oximetry 100 100 98 Oxygen Delivery Method Room Air Oxygen Flow Rate (LPM) 3 3 12/29/23 23:30 Temperature Temperature Source Pulse Rate 103 H Pulse Rate [Right] Respiratory Rate 24 Blood Pressure 157/88 H Blood Pressure [Right Arm] Blood Pressure Mean 111 Blood Pressure Mean [Right Arm] 02 Sat by Pulse Oximetry 98 Oxygen Delivery Method Oxygen Flow Rate (LPM) 3 Lab Data Lab Results 12/29/23 22:48: WBC 7.4, RBC 4.03 L, Hgb 13.0 L, Hct 39.3 L, MCV 97.6 H, MCH 32.2 H, MCHC 33.0, RDW 13.4, Plt Count 261, MPV 8.0, Neut % (Auto) 64.5, Lymph % (Auto) 18.9, [place] % (Auto) 7.5, Eos % (Auto) 8.9, Baso % (Auto) 0.1, Neut # (Auto) 4.8, Lymph # (Auto) 1.4, [place] # (Auto) 0.6, Eos # (Auto) 0.7 H, Baso # (Auto) 0.0, D-Dimer 0.51 H, Sodium 137, Potassium 4.0, Chloride 97 L, Carbon Dioxide 34 H, Anion Gap 10.0, BUN 9, Creatinine 0.60 L, Estimated Creat Clear 55, Estimated GFR 135, Est GFR ( Amer) 163, Glucose 109 H, Lactate < 0.5 L, Calcium 6.2 L, Magnesium 1.6, Troponin I < 0.01 02/20/24 23:05: SARS-CoV-2 (PCR) Not detected, Influenza A Untype (PCR) Not detected, Influenza Type B (PCR) Not detected Orders (Tests/Meds): ED MEDICATIONS Generic Name Dose Route Start Last Admin Trade Name Julio PRN Reason Stop Dose Admin Magnesium Sulfate 2 gm in 50 mls @ 50 mls/hr 12/29/23 23:17 12/29/23 23:20 Magnesium Sulfate 2gm/50ml Premix IV 12/30/23 00:16 50 mls/hr ONCE ONE Administration Discontinued Medications Generic Name Dose Route Start Last Admin Trade Name Freq PRN Reason Stop Dose Admin Acetaminophen 1,000 mg 12/29/23 22:24 12/29/23 22:55 Acetaminophen 1,000mg/100ml Vial IV 12/29/23 22:25 1,000 mg ONCE ONE Administration Albuterol/Ipratropium 3 ml 12/29/23 22:24 12/29/23 22:55 Ipratropium/Albuterol 3 Ml Neb 12/29/23 22:25 3 ml ONCE ONE Administration Albuterol/Ipratropium 6 ml 12/29/23 23:17 12/29/23 23:21 Ipratropium/Albuterol 3 Ml Neb 12/29/23 23:18 6 ml ONCE ONE Administration Methylprednisolone Sodium Succinate 125 mg 12/30/23 00:03 Methylprednisolone Sod Succ 125mg Vial IV 12/30/23 00:04 ONCE ONE ORDERS Category Date Time Status Chest XR -- portable [XR chest portable] Stat Exams 12/29/23 22:25 Completed BMP [Basic Metabolic Panel] Stat Lab 12/29/23 22:48 Completed CBC w/Auto Diff [Complete Blood Count Auto Diff] Stat Lab 12/29/23 22:48 Completed D-Dimer Stat Lab 12/29/23 22:48 Completed Lactic Acid Stat Lab 12/29/23 22:48 Completed Magnesium Stat Lab 12/29/23 22:48 Completed Rapid PCR Covid and Flu A/B Stat Lab 12/29/23 23:05 Completed Trop I [Troponin I] Stat Lab 12/29/23 22:48 Completed Troponin I Q3H Lab 12/30/23 01:30 Ordered Troponin I Q3H Lab 12/30/23 04:30 Ordered Blood Culture Stat Micro 12/29/23 22:40 Received EKG Request [ECG Request] Stat Y 12/29/23 22:25 Ordered ECG Data Tracing #1: I reviewed this ECG and interpreted as documented below: Ventricular rate of 92 no acute ischemic changes noted there are some hyperdynamic T waves no acute ischemia no conduction abnormalities there is ev idence of right atrial enlargement and there is normal axis <Mohamud Sierra MD - Last Filed: 12/30/23 00:13> Vital Signs: 12/29/23 21:58 12/29/23 22:30 12/29/23 23:28 Temperature 98.4 F Temperature Source Oral Pulse Rate 95 H 103 H Pulse Rate [Right] 98 H Respiratory Rate 20 24 Blood Pressure 132/88 135/86 Blood Pressure [Right Arm] 158/93 H Blood Pressure Mean 114 116 Blood Pressure Mean [Right Arm] 114 02 Sat by Pulse Oximetry 100 100 98 Oxygen Delivery Method Room Air Oxygen Flow Rate (LPM) 3 3 12/29/23 23:30 Temperature Temperature Source Pulse Rate 103 H Pulse Rate [Right] Respiratory Rate 24 Blood Pressure 157/88 H Blood Pressure [Right Arm] Blood Pressure Mean 111 Blood Pressure Mean [Right Arm] 02 Sat by Pulse Oximetry 98 Oxygen Delivery Method Oxygen Flow Rate (LPM) 3 Lab Data Lab Results 12/29/23 22:48: WBC 7.4, RBC 4.03 L, Hgb 13.0 L, Hct 39.3 L, MCV 97.6 H, MCH 32.2 H, MCHC 33.0, RDW 13.4, Plt Count 261, MPV 8.0, Neut % (Auto) 64.5, Lymph % (Auto) 18.9, [place] % (Auto) 7.5, Eos % (Auto) 8.9, Baso % (Auto) 0.1, Neut # (Auto) 4.8, Lymph # (Auto) 1.4, [place] # (Auto) 0.6, Eos # (Auto) 0.7 H, Baso # (Auto) 0.0, D-Dimer 0.51 H, Sodium 137, Potassium 4.0, Chloride 97 L, Carbon Dioxide 34 H, Anion Gap 10.0, BUN 9, Creatinine 0.60 L, Estimated Creat Clear 55, Estimated GFR 135, Est GFR ( Amer) 163, Glucose 109 H, Lactate < 0.5 L, Calcium 6.2 L, Magnesium 1.6, Troponin I < 0.01 12/29/23 23:05: SARS-CoV-2 (PCR) Not detected, Influenza A Untype (PCR) Not detected, Influenza Type B (PCR) Not detected Orders (Tests/Meds): ED MEDICATIONS Generic Name Dose Route Start Last Admin Trade Name Freq PRN Reason Stop Dose Admin Magnesium Sulfate 2 gm in 50 mls @ 50 mls/hr 12/29/23 23:17 12/29/23 23:20 Magnesium Sulfate 2gm/50ml Premix IV 12/30/23 00:16 50 mls/hr ONCE ONE Administration Discontinued Medications Generic Name Dose Route Start Last Admin Trade Name Freq PRN Reason Stop Dose Admin Acetaminophen 1,000 mg 12/29/23 22:24 12/29/23 22:55 Acetaminophen 1,000mg/100ml Vial IV 12/29/23 22:25 1,000 mg ONCE ONE Administration Albuterol/Ipratropium 3 ml 12/29/23 22:24 12/29/23 22:55 Ipratropium/Albuterol 3 Ml Neb 12/29/23 22:25 3 ml ONCE ONE Administration Albuterol/Ipratropium 6 ml 12/29/23 23:17 12/29/23 23:21 Ipratropium/Albuterol 3 Ml [facility] 12/29/23 23:18 6 ml ONCE ONE Administration Methylprednisolone Sodium Succinate 125 mg 12/30/23 00:03 Methylprednisolone Sod Succ 125mg Vial IV 12/30/23 00:04 ONCE ONE ORDERS Category Date Time Status Chest XR -- portable [XR chest portable] Stat Exams 12/29/23 22:25 Completed BMP [Basic Metabolic Panel] Stat Lab 12/29/23 22:48 Completed CBC w/Auto Diff [Complete Blood Count Auto Diff] Stat Lab 12/29/23 22:48 Completed D-Dimer Stat Lab 12/29/23 22:48 Completed Lactic Acid Stat Lab 12/29/23 22:48 Completed Magnesium Stat Lab 12/29/23 22:48 Completed Rapid PCR Covid and Flu A/B Stat Lab 12/29/23 23:05 Completed Trop I [Troponin I] Stat Lab 12/29/23 22:48 Completed Troponin I Q3H Lab 12/30/23 01:30 Ordered Troponin I Q3H Lab 12/30/23 04:30 Ordered Blood Culture Stat Micro 12/29/23 22:40 Received EKG Request [ECG Request] Stat Y 12/29/23 22:25 Ordered HEART Score History (anamnesis): Slightly suspicious ECG: Normal Age: >65 years Risk factors: 1-2 risk factors Troponin: </= normal limit HEART Score: 3 Medical Decision Narrative: In summary patient is a 88-year-old male who presents to the emergency department for evaluation of dyspnea described as my throat is closing off . Patient is hemodynamically stable upon arrival, afebrile. Physical exam shows widely patent upper airway but no concern for obstruction edema erythema normal phonation. patient does have history of 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 Patient does have a coarse upper airway sounds but is satting currently at 100% on his 3 L by nasal cannula. Patient has diminished air entry and diminished breath sounds in bilateral lung mcgill without adventitious sounds or wheeze. Differential diagnosis includes upper respiratory tract infection, COPD exacerbation, PE, ACS, allergic reaction, COPD exacerbation. Initial workup will be conducted with hematologic labs plain film chest x-ray twelve-lead EKG COVID flu swabs. Initial interventions include DuoNeb Tylenol. At this point we are awaiting results of initial workup at the time of transfer to Dr. Sierra at 2300 hrs. Mariela AKINS: I assumed care of the patient at the time of handoff from the prior provider. I assessed the patient on my arrival. He reports mild improvement after the in itial DuoNeb. I provided him an additional 2 DuoNebs and 2 g of IV magnesium as well as 125 IV Solu-Medrol. After these interventions, he reported continued improvement, had improved breath sounds bilaterally on exam. Chest x-ray interpreted by me and shows chronic hyperinflation, no new mass or pneumonia. Labs interpreted by me, significant for negative D-dimer by years criteria, negative initial troponin, chronic hypocalcemia of uncertain etiology (discussed with patient, he reports it is stable). EKG independently interpreted by me, significant for sinus rhythm, rate of 92, no significant ST or T wave changes, no evidence of arrhythmia. Patient was observed for a period of time after these interventions. He continued to sat 100% on home 3 L nasal cannula. Presentation appears most consistent with COPD exacerbation. He is currently taking cefdinir that was prescribed for sinus issues . I will prescribe him prednisone well. Patient was discharged in stable condition. Patient was encouraged to begin using his at home nebulizer again, he reports he has not used it for at least the last 2 years. I was consulted by the ABEBA, and we discussed the complexity of the problems being addressed. I approved the treatment and management plan for this patient?s care in the Emergency Department, thus performing a substantive portion of the medical decision making. Mohamud Sierra MD Critical Care <ANÍBAL Harvey - Last Filed: 12/29/23 22:59> Critical Care Time Critical Care Time: Yes Attestation: On 12/29/23, the high probability of a clinically significant, sudden or life threatening deterioration of the following system(s) required my full and direct attention, intervention and personal management. The time I documented below is in addition to time spent performing reported procedures but includes the following listed in this critical care notation. Total Time Total Critical Care Time: 30 <Mohamud Sierra MD - Last Filed: 12/30/23 00:13> Critical Care Time Critical Care Time: Yes Attestation: On 12/29/23, the high probability of a clinically significant, sudden or life threatening deterioration of the following system(s) respiratory required my full and direct attention, intervention and personal management. The time I documented below is in addition to time spent performing reported procedures but includes the following listed in this critical care notation.
--- NOTE | 2023-12-29 22:25 | XR_ITS ---
PROCEDURE INFORMATION: Exam: XR Chest Exam date and time: 12/29/2023 10:32 PM Age: 68 years old Clinical indication: Cough and wheezing; Additional info: Cough wheezing TECHNIQUE: Imaging protocol: Radiologic exam of the chest. Views: 1 view. COMPARISON: CT CHEST W CON 10/09/2023 8:35 AM FINDINGS: Tubes, catheters and devices: Central venous catheter tip projected over mid superior vena cava. Lungs: Underlying centrilobular emphysematous changes of both lungs. Hyperinflated lungs. Stable calcified granuloma in left lower lobe. No consolidation. Basilar scarring. Pleural spaces: Unremarkable. No pleural effusion. No pneumothorax. Heart/Mediastinum: Unremarkable. No cardiomegaly. Bones/joints: Unremarkable. IMPRESSION: No acute findings. No infiltration is seen.
[2023-12-29 22:30] VITALS: BP 132/88; PULSE 95; O2SAT 100
[2023-12-29] MEDS: IPRATROPIUM/ALBUTEROL 3 ML NEB IH (22:55)
[2023-12-29] MEDS: ACETAMINOPHEN 1,000MG/100ML VIAL 1000 MG IV (22:55)
--- NOTE | 2023-12-29 22:56 | ECG_ITS ---
APPROVED REPORT Exam: Resting ECG HR:92 bpm ECG Measurements Heart Rate 92 AXES OH 136 P 87 QRSd 101 QRS 84 QT 370 T 74 QTc 420 Conclusion SINUS RHYTHM RIGHT ATRIAL ENLARGEMENT [0.3mV P-WAVE] ABNORMAL ECG UNCONFIRMED REPORT Electronically signed by : Main Carrington MD 12/30/2023 20:36:07
[2023-12-29 23:15] LABS: Basophils % 0.1 % (0.1-2.0); Eosinophils # 0.7 K/mm3 (0.0-0.4); Eosinophils % 8.9 % (0.1-12.0); Hematocrit 39.3 % (42.0-52.0); Lymphocytes # 1.4 K/mm3 (0.7-4.5); Lymphocytes % 18.9 % (10-50); Mean Corpuscular Hemoglobin 32.2 pg (27.0-31.2); Mean Corpuscular Volume 97.6 fl (80-94); Monocytes # 0.6 K/mm3 (0.1-1.0); Monocytes % 7.5 % (1.7-9.3); Neutrophils # 4.8 K/mm3 (1.8-7.8); Neutrophils % 64.5 % (37.0-80.0); Platelet Count 261 K/mm3 (142-424); Red Blood Count 4.03 M/mm3 (4.60-6.20); Red Cell Distribution Width 13.4 % (11.5-17.5); White Blood Count 7.4 K/mm3 (4.8-10.8)
[2023-12-29 23:19] LABS: Blood Urea Nitrogen 9 mg/dl (9-20); Calcium 6.2 mg/dl (8.4-10.2); Carbon Dioxide 34 mmol/L (22.0-30.0); Chloride 97 mmol/L (98-107); Creatinine Clearance Estimated 55 mL/min (50-200); Estimated Glomerular Filt Rate 135 ml/min (>60); GFR (African American) 163 ML/MIN (>60); Glucose 109 mg/dl (74-100); Sodium 137 mmol/L (136-145)
[2023-12-29] MEDS: MAGNESIUM SULFATE IN WATER 2 GM/50 ML PIGGYBACK IV (23:20)
[2023-12-29] MEDS: IPRATROPIUM/ALBUTEROL 3 ML NEB 6 ML IH (23:21)
[2023-12-29 23:24] LABS: D-Dimer 0.51 ug/mL (0.0-0.5)
[2023-12-29 23:28] VITALS: BP 135/86; PULSE 103; RESP 24; O2SAT 98
[2023-12-29 23:30] VITALS: BP 157/88; PULSE 103; RESP 24; O2SAT 98
[2023-12-29 23:33] LABS: Troponin I < 0.01 ng/ml (0.00-0.034)
[2023-12-29 23:43] LABS: Lactic Acid < 0.5 mmol/L (0.7-2.1); Magnesium 1.6 mg/dl (1.6-2.3)
[2023-12-29 23:49] LABS: Coronavirus 19, PCR Not Detected (NotDetected); Influenza A, PCR Not Detected (NotDetected); Influenza B, PCR Not Detected (NotDetected)
[2023-12-30 00:12] VITALS: BP 127/72; PULSE 80; RESP 20; TEMP 37.1; O2SAT 100
[2023-12-30] MEDS: METHYLPREDNISOLONE SOD SUCC 125MG VIAL 125 MG IV (00:14)
== END 2023-12-30 00:33 | disposition home or self-care (01) ==
PROVIDERS: Physician Assistant; Emergency Provider Student in an Organized Health Care Education/Training Program; PCP Internal Medicine Adolescent Medicine
DX: J44.1 Chronic obstructive pulmonary disease with (acute) exacerbation (principal); R06.02 Shortness of breath; C34.90 Malignant neoplasm of unspecified part of unspecified bronchus or lung; I10 Essential (primary) hypertension; F17.210 Nicotine dependence, cigarettes, uncomplicated
CPT/HCPCS: 71045; 80048; 83605; 83735; 84484; 85025; 85378; 87040; 87636; 93005; 96365; 96375; 99291; J0131; J1642; J3475

== ENCOUNTER 2024-01-12 07:58 | Outpatient (CLI) | payer MEDICARE, SELFPAY ==
--- NOTE | 2024-01-12 08:19 | CT_ITS ---
FINAL REPORT CLINICAL HISTORY: LUNG CANCER 3 month followup COMPARISON: 10/09/2023 FINDINGS: Axial CT images of the chest were obtained with contrast. Coronal and sagittal reformatted images were also obtained. This study was performed with techniques to keep radiation doses as low as reasonably achievable, (ALARA). Individualized dose reduction techniques using automated exposure control or adjustment of mA and/or KV according to the patient's size were employed. A right chest port is again noted. Small mediastinal nodes are present, stable since the prior CT. Moderate to severe changes of emphysema are identified. No axillary mass or adenopathy is identified. The posterior left upper lobe nodule, noted on the prior CT examination, measures 1.8 x 1.6 cm in size, stable since the prior CT best seen on image #22. Right perihilar opacities are once again noted, likely post therapy change. There is a partially cavitary elongated density once again noted, that has increased in size since the prior exam. On today's exam this partially cavitary density measures 25 x 13 mm, was 15 x 11 mm best seen on image #54. Mild scarring is present. Calcified granulomas are noted in the left lower lobe. Limited images of the upper abdomen reveal no mass or localized inflammatory process. IMPRESSION: Partially cavitary mass in the right hemithorax has enlarged when compared to the prior exam of October. On today's examination this nodule measures 25 x 13 mm in size, was previously 15 x 11 mm in size. This is of uncertain etiology, but neoplastic involvement is not excluded. Recommend follow-up CT for further evaluation. Left upper lobe nodule seen on the prior exam, 1.6 x 1.8 cm in size, is stable. Reviewed, Interpreted and Dictated by Apollo Rea III, MD Transcribed by Gale James Authenticated and . [facility]
--- NOTE | 2024-01-12 08:19 | CT_ITS ---
FINAL REPORT CLINICAL HISTORY: LUNG CANCER COMPARISON: 10/09/2023 FINDINGS: CT OF THE ABDOMEN AND PELVIS WITH CONTRAST Axial CT images of the abdomen and pelvis were obtained after the administration of oral and iv contrast. Coronal and sagittal reformatted images were also obtained and reviewed.This study was performed with techniques to keep radiation doses as low as reasonably achievable (ALARA). Individualized dose reduction techniques using automated exposure control or adjustment of mA and/or kV according to the patient's size were employed. Abdomen: The lung bases are clear. The heart is normal in size. The liver has several small subcentimeter in size low-attenuation foci which were seen on the prior CT examination of October 09 and are stable since that time. Favor that these represent small hepatic cysts. The spleen is unremarkable. No adrenal mass is present. The pancreas has an unremarkable appearance. There are low-attenuation foci also noted in the right kidney, also stable, favor cysts. The aorta is normal in caliber. There is no free fluid or adenopathy. No mass or abnormal fluid collection is seen. Moderate vascular calcifications are present. Pelvis: The appendix is normal in appearance. The urinary bladder is unremarkable. No inflammatory process is seen. There is no evidence of mass or adenopathy. There is no evidence of bowel obstruction. IMPRESSION: Multiple hepatic subcentimeter low-attenuation foci, stable since the prior CT of October. Favor small cysts. Right renal low-attenuation foci, also stable, favor small cysts. Reviewed, Interpreted and Dictated by Apollo Rea III, MD Transcribed by Gale James Authenticated and [facility]
[2024-01-12 08:25] VITALS: BMI 16.7
[2024-01-12 08:38] LABS: Basophils # 0.1 K/mm3 (0-0.2); Basophils % 1.6 % (0.1-2.0); Eosinophils # 0.4 K/mm3 (0.0-0.4); Eosinophils % 5.4 % (0.1-12.0); Hematocrit 38.2 % (42.0-52.0); Hemoglobin 12.2 g/dL (14.1-18.0); Lymphocytes # 1.2 K/mm3 (0.7-4.5); Lymphocytes % 15.7 % (10-50); Mean Corpuscular HGB Conc 31.9 g/dL (31.8-35.4); Mean Corpuscular Hemoglobin 32.9 pg (27.0-31.2); Mean Platelet Volume 7.7 fl (7.4-10.4); Monocytes # 0.6 K/mm3 (0.1-1.0); Monocytes % 7.8 % (1.7-9.3); Neutrophils # 5.4 K/mm3 (1.8-7.8); Neutrophils % 69.6 % (37.0-80.0); Platelet Count 313 K/mm3 (142-424); Red Blood Count 3.71 M/mm3 (4.60-6.20); Red Cell Distribution Width 13.4 % (11.5-17.5); White Blood Count 7.8 K/mm3 (4.8-10.8)
[2024-01-12] MEDS: SODIUM CHLORIDE 0.9% 10ML FLUSH SYRINGE 10 ML IV (08:39)
[2024-01-12] MEDS: IOPAMIDOL-370 (76%);100ML BOTTLE 75 ML IV (08:40)
[2024-01-12 08:44] LABS: Alanine Aminotransferase 34 U/L (12-78); Albumin Level 4.2 g/dl (3.5-5.0); Albumin/Globulin Ratio 1.4 (1.1-1.8); Alkaline Phosphatase 119 U/L (38-126); Aspartate Amino Transferase 42 U/L (17-59); Bilirubin,Total 0.5 mg/dl (0.2-1.3); Blood Urea Nitrogen 10 mg/dl (9-20); Calcium 6.4 mg/dl (8.4-10.2); Carbon Dioxide 34 mmol/L (22.0-30.0); Chloride 96 mmol/L (98-107); Creatinine Clearance Estimated 55 mL/min (50-200); Estimated Glomerular Filt Rate 135 ml/min (>60); GFR (African American) 163 ML/MIN (>60); Globulin 3.1 g/dL (1.3-3.2); Glucose 116 mg/dl (74-100); Potassium 3.7 mmoL/L (3.5-5.1); Total Protein,Serum 7.3 g/dl (6.3-8.2)
[2024-01-12 09:15] LABS: Thyroid Stimulating Hormone 1.32 uIU/mL (0.465-4.68)
[2024-01-12 09:42] LABS: Anion Gap 10.7 mEq/L (5-15); Sodium 137 mmol/L (136-145)
[2024-01-13 14:43] LABS: Adrenocorticotropic Hormone 38.7 pg/mL (7.2-63.3)
== END 2024-01-12 23:59 ==
PROVIDERS: PCP Internal Medicine Adolescent Medicine; Visit Provider Internal Medicine Medical Oncology
DX: Z79.899 Other long term (current) drug therapy; C34.91 Malignant neoplasm of unspecified part of right bronchus or lung
CPT/HCPCS: 36591; 71260; 74177; 80053; 82024; 82533; 84443; 85025; J1642; Q9967

== ENCOUNTER 2024-01-14 10:50 | Outpatient (CLI) | payer MEDICARE, SELFPAY ==
--- NOTE | 2024-01-14 10:59 | CT_ITS ---
FINAL REPORT TECHNIQUE: Axial imaging of the head was obtained with intravenous contrast. This study was performed with techniques to keep radiation doses as low as reasonably achievable, (ALARA). Individualized dose reduction techniques using automated exposure control or adjustment of mA and/or kV according to the patient's size were employed. CLINICAL HISTORY: LUNG CANCER WITH C/O HEADACHES COMPARISON: None FINDINGS: CT HEAD WITH CONTRAST: Mild age-appropriate atrophy is present. There is no evidence of hemorrhage. No masses are identified. No extra-axial fluid is seen. The sinuses are normal. There is no acute osseous abnormality. IMPRESSION: No acute intracranial abnormality is noted. Mild age-appropriate atrophy. Reviewed, Interpreted and Dictated by Apollo Rea III, MD Transcribed by Gale James Authenticated and [facility]
[2024-01-14] MEDS: IOPAMIDOL-300 (61%) 100ML VIAL 100 ML IV (11:28)
[2024-01-14] MEDS: SODIUM CHLORIDE 0.9% 10ML SYR (RAD ONLY) 10 ML IV (11:28)
== END 2024-01-14 23:59 ==
LOC: RAD 10:50
PROVIDERS: PCP Internal Medicine Adolescent Medicine; Visit Provider Internal Medicine Medical Oncology
DX: C34.91 Malignant neoplasm of unspecified part of right bronchus or lung (principal); R51.9 Headache, unspecified
CPT/HCPCS: 70460; J1642; Q9967

== ENCOUNTER 2024-01-23 20:40 | Emergency (ER) | payer MEDICARE, SELFPAY ==
[2024-01-23 20:43] VITALS: BP 177/88; PULSE 101; RESP 20; TEMP 37.1; O2SAT 98; BMI 16.5
[2024-01-23 21:00] VITALS: BP 170/91; PULSE 98; RESP 18; O2SAT 99
--- NOTE | 2024-01-23 21:20 | XR_ITS ---
PROCEDURE INFORMATION: Exam: XR Chest Exam date and time: 01/23/2024 9:26 PM Age: 68 years old Clinical indication: Shortness of breath; Additional info: SOA TECHNIQUE: Imaging protocol: Radiologic exam of the chest. Views: 1 view. COMPARISON: CT CHEST W CON 01/12/2024 8:27 AM FINDINGS: Tubes, catheters and devices: Right chest wall port catheter with tip terminating over the mid SVC. Lungs: No consolidation. Left lower lobe calcified granuloma. Pleural spaces: No pleural effusion. No pneumothorax. Heart/Mediastinum: No cardiomegaly. Bones/joints: Unremarkable. IMPRESSION: No acute pulmonary findings.
--- NOTE | 2024-01-23 21:20 | ECG_ITS ---
APPROVED REPORT Exam: Resting ECG HR:97 bpm ECG Measurements Heart Rate 97 AXES OR 143 P 80 QRSd 104 QRS 85 QT 356 T 28 QTc 411 Conclusion Sinus rhythm Biatrial enlargement Peaked T waves Electronically signed by : TAMI LOZADA, 01/24/2024 03:09:54
[2024-01-23 21:26] LABS: Basophils % 0.6 % (0.1-2.0); Eosinophils # 0.4 K/mm3 (0.0-0.4); Eosinophils % 6.9 % (0.1-12.0); Hematocrit 38.1 % (42.0-52.0); Hemoglobin 12.3 g/dL (14.1-18.0); Lymphocytes % 16.2 % (10-50); Mean Corpuscular HGB Conc 32.3 g/dL (31.8-35.4); Mean Corpuscular Hemoglobin 33.3 pg (27.0-31.2); Mean Corpuscular Volume 103.2 fl (80-94); Mean Platelet Volume 7.8 fl (7.4-10.4); Monocytes # 0.5 K/mm3 (0.1-1.0); Monocytes % 8.6 % (1.7-9.3); Neutrophils # 4.3 K/mm3 (1.8-7.8); Neutrophils % 67.8 % (37.0-80.0); Platelet Count 383 K/mm3 (142-424); Red Blood Count 3.69 M/mm3 (4.60-6.20); Red Cell Distribution Width 13.4 % (11.5-17.5); White Blood Count 6.3 K/mm3 (4.8-10.8)
[2024-01-23 21:35] LABS: Chloride 94 mmol/L (98-107); Potassium 4.2 mmoL/L (3.5-5.1); Sodium 138 mmol/L (136-145)
[2024-01-23 21:37] LABS: Blood Urea Nitrogen 10 mg/dl (9-20); Creatinine Clearance Estimated 54 mL/min (50-200); Estimated Glomerular Filt Rate 135 ml/min (>60); GFR (African American) 163 ML/MIN (>60)
[2024-01-23 21:38] LABS: Alanine Aminotransferase 16 U/L (12-78); Albumin Level 3.9 g/dl (3.5-5.0); Albumin/Globulin Ratio 1.3 (1.1-1.8); Alkaline Phosphatase 85 U/L (38-126); Aspartate Amino Transferase 32 U/L (17-59); Bilirubin,Total 0.3 mg/dl (0.2-1.3); Globulin 2.9 g/dL (1.3-3.2); Total Protein,Serum 6.8 g/dl (6.3-8.2)
[2024-01-23 21:39] LABS: Calcium 6.3 mg/dl (8.4-10.2); Glucose 157 mg/dl (74-100)
[2024-01-23 21:45] LABS: Anion Gap 10.2 mEq/L (5-15); Carbon Dioxide 38 mmol/L (22.0-30.0)
[2024-01-23 21:51] LABS: Troponin I < 0.01 ng/ml (0.00-0.034)
[2024-01-23 22:00] VITALS: BP 159/134; PULSE 99; RESP 18; O2SAT 100
[2024-01-23 22:04] VITALS: BP 175/112; PULSE 100; RESP 20; O2SAT 99
--- NOTE | 2024-01-23 22:43 | CT_ITS ---
PROCEDURE INFORMATION: Exam: CT Neck With Contrast Exam date and time: 01/23/2024 11:37 PM Age: 68 years old Clinical indication: Other: Throat tightness; Additional info: Cancer PT, has throat tightness TECHNIQUE: Imaging protocol: Computed tomography of the neck with contrast. Radiation optimization: All CT scans at this facility use at least one of these dose optimization techniques: automated exposure control; mA and/or kV adjustment per patient size (includes targeted exams where dose is matched to clinical indication); or iterative reconstruction. Contrast material: ISOVUE; Contrast volume: 75 ml; Contrast route: IV; COMPARISON: 1. CT CHEST W CON 01/12/2024 8:27 AM 2. NM BONE SCAN WHOLE BODY 06/10/2021 12:44 PM FINDINGS: Limitations: Motion artifact. Pharynx: Unremarkable. No significant tonsillar enlargement. Larynx: Unremarkable. Epiglottis is normal. Prevertebral and retropharyngeal spaces: Unremarkable. Salivary glands: Normal. Glands are normal in size. Thyroid: Normal. No enlarged or calcified nodules. Lymph nodes: Unremarkable. No lymphadenopathy. Trachea: Visualized trachea is unremarkable. Lungs: Emphysema. Stable right perihilar posttreatment changes. Bones/joints: Degenerative changes. No acute fracture. Vasculature: Carotid artery calcifications. Soft tissues: Unremarkable. No significant soft tissue swelling. IMPRESSION: No acute findings.
--- NOTE | 2024-01-23 22:43 | CT_ITS ---
PROCEDURE INFORMATION: Exam: CTA Chest With Contrast Exam date and time: 01/23/2024 11:43 PM Age: 68 years old Clinical indication: Shortness of breath; Prior surgery; Surgery date: 6+ months; Surgery type: Port; Additional info: SOA cancer PT TECHNIQUE: Imaging protocol: Computed tomographic angiography of the chest with contrast. Exam focused on the arteries. 3D rendering (Not supervised by radiologist): MIP and/or 3D reconstructed images were created by the technologist. Radiation optimization: All CT scans at this facility use at least one of these dose optimization techniques: automated exposure control; mA and/or kV adjustment per patient size (includes targeted exams where dose is matched to clinical indication); or iterative reconstruction. Contrast material: ISOVUE 370; Contrast volume: 70 ml; Contrast route: INTRAVENOUS (IV); COMPARISON: CT ANGIO CHEST PE PROTOCOL 06/30/2022 1:48 PM FINDINGS: Pulmonary arteries: Normal. No pulmonary emboli. Aorta: Unremarkable. No aortic aneurysm. No aortic dissection. Lungs: Diffuse changes of emphysema again noted throughout both lungs. Stable thin-walled cavitary lesion with spiculation measuring 3 cm in greatest diameter in the right lower lobe appears stable. Stable 2.5 cm spiculated nodular density in the posterior aspect of the left upper lobe. Stable parenchymal scarring and soft tissue thickening in the right perihilar region. Stable 12 mm calcified granuloma in the left lower lobe. No acute infiltrate compared to the study of 11 days previous. Pleural spaces: Unremarkable. No pneumothorax. No pleural effusion. Heart: Unremarkable. No cardiomegaly. No pericardial effusion. Lymph nodes: Unremarkable. No enlarged lymph nodes. Bones/joints: Unremarkable. No acute fracture. Soft tissues: Unremarkable. IMPRESSION: 1. No evidence of pulmonary embolus 2. Stable scattered bilateral parenchymal lesions and diffuse underlying emphysema in both lungs as previously described. No significant change from the study of the 11 days previous. COMMENTS: The presence of pulmonary emphysema on CT is an independent risk factor for lung cancer. In the absence of a history or active diagnosis of lung cancer, it is recommended that this patient with emphysema be evaluated for enrollment in a low dose CT lung cancer screening program.
[2024-01-23] MEDS: IPRATROPIUM/ALBUTEROL 3 ML NEB 9 ML IH (22:50)
[2024-01-23 22:58] LABS: Coronavirus 19, PCR Not Detected (NotDetected); Influenza A, PCR Not Detected (NotDetected); Influenza B, PCR Not Detected (NotDetected)
[2024-01-23 23:02] LABS: Lactate Venous 0.7 mmol/L (0.4-2.0); VBG Base Excess 9.7 mmol/L (-2.4-2.3); VBG HCO3 36.6 mmol/L (23-30); VBG Oxygen Saturation 88.7 % (50-70); VBG PCO2 81.7 mmol/L (35-51); VBG PH 7.27 mmol/L (7.31-7.41); VBG PO2 58.1 mmol/L (28-40); VBG Total CO2 39.1 mmol/L (23-27)
--- NOTE | 2024-01-23 23:21 | ED_ITS ---
Discharge Plan Disposition Patient Disposition: Home, Self-Care Prescriptions Prescriptions: New prednisone 20 mg tablet 40 mg PO DAILY 5 Days Qty: 10 0RF No Action propranolol 10 mg tablet 10 mg PO BID Patient Comments: TAKE 1 TABLET BY MOUTH TWICE DAILY cyclobenzaprine 10 mg tablet 10 mg PO TIDP PRN (Reason: Muscle Spasm) trazodone 150 mg tablet 150 mg PO DAILY lidocaine-prilocaine 2.5-2.5 % cream 2.5 g topical DIRECTED PRN (Reason: NUMB ) Patient Comments: USE DIRECTED albuterol sulfate 90 mcg/actuation HFA aerosol inhaler 2 inh IH QID PRN (Reason: shortness of breath or wheezing) 90 Days Qty: 8.5 2RF ipratropium-albuterol 0.5 mg-3 mg(2.5 mg base)/3 mL solution for nebulization 3 ml inhalation QID PRN (Reason: shortness of breath or wheezing) 90 Days Qty: 270 3RF Trelegy Ellipta 100-62.5-25 mcg blister with device 1 inh inhalation DAILY prednisone 50 mg tablet 50 mg PO DAILY 5 Days Qty: 5 0RF aspirin 325 mg Tablet 325 mg PO DAILY Referrals Follow up/Referrals: Main Carrington MD [Primary Care Provider] - See instructions Activity Restrictions/Add. Instructions Additional Instructions/Restrictions: Call your family doctor to establish care for this visit to the emergency department and schedule follow-up within 48 hours to ensure improvement. If you have any worsening of your condition or any other concerning signs or symptoms, return to the emergency department or your primary care doctor for further evaluation. Prednisone every day for 5 days in the morning. Make sure to take this with plenty of food and water to prevent GI upset and kidney damage Clinical Impressions Clinical Impression: Dyspnea, Acute exacerbation of chronic obstructive airways disease Discharge ED Provider: Christopher Ellsworth [facility] <Juliane Alva MD - Last Filed: 01/23/24 23:29> General Chief Complaint: Shortness of Breath/Dyspnea Stated Complaint: Difficulty breathing,thraot feels real tight Time Seen by Provider: 01/23/24 22:29 Mode of Arrival: Wheelchair Source of Information: Patient Limitations: No Limitations Description of Symptoms (Recalled from ER Triage Doc. by RN): Patient presents to ED with SOA. Patient states tightness in his chest. Spouse states patient has COPD and is receiving tx for lung cancer with . Last tx was Dec. Patient is currently wearing 3L O2. History of Present Illness HPI narrative: 68-year-old male with a history of COPD and active lung cancer presents to the ER with concerns of chest tightness. Patient states he usually wears 3 L oxygen at home but is requiring 4 L in the ED. He feels short of breath and also describes a sensation of tightness in his throat and the area under his jaw. He is not having any difficulty swallowing. He denies fevers, vomiting, dysuria, or other associated symptoms. Related Data Home Medications Medication Instructions Recorded Confirmed cyclobenzaprine 10 mg tablet 10 mg PO TIDP PRN Muscle Spasm 05/20/19 01/13/24 trazodone 150 mg tablet 150 mg PO DAILY sleep 07/03/22 01/13/24 fluticasone fur. 100 mcg-umeclid 1 inh inhalation DAILY Copd 01/05/23 01/13/24 62.5 mcg-vilant 25 mcg inhalat.powder (Trelegy Ellipta) lidocaine-prilocaine 2.5 %-2.5 % 2.5 g topical DIRECTED PRN NUMB 01/20/23 01/13/24 topical cream aspirin 325 mg tablet 325 mg PO DAILY Heart Disease 05/11/23 01/13/24 propranolol 10 mg tablet 10 mg PO BID 12/16/23 01/13/24 Previous Rx's Medication Instructions Recorded albuterol sulfate 90 mcg/actuation 2 inh inhalation QID PRN shortness 11/12/23 aerosol inhaler of breath or wheezing 90 days #8.5 grams prednisone 50 mg tablet 50 mg PO DAILY 5 days #5 tabs 12/30/23 ipratropium 0.5 mg-albuterol 3 mg 3 ml inhalation QID PRN shortness 12/31/23 (2.5 mg base)/3 mL nebulization of breath or wheezing 90 days #270 soln mL prednisone 20 mg tablet 40 mg (2 x 20 mg) PO DAILY 5 days 01/24/24 #10 tabs Allergies Allergy/AdvReac Type Severity Reaction Status Date / Time silver Allergy Severe Rash Verified 01/13/24 09:31 [From Tegaderm AG Mesh] Penicillins [PENICILLINS] Allergy Mild Verified 03/06/24 09:31 amitriptyline AdvReac Intermediate gi upset Verified 01/13/24 09:31 adhesive AdvReac Verified 01/13/24 09:31 hydrocodone AdvReac Verified 01/13/24 09:31 PFSH <Juliane Alva MD - Last Filed: 01/23/24 23:29> [facility] Disclaimer: The information contained in this section may have been updated after the patient was seen, as this information can be updated by other users. Medical History Lung nodule Hilar lymphadenopathy Pneumonia Sleep apnea Emphysema/COPD Chronic cough Bronchitis Allergies History of anemia Lung collapse Nodule of right lung Tobacco abuse disorder Tobacco abuse counseling Small cell lung cancer Smoking greater than 30 pack years Chronic hypoxemic respiratory failure COPD (chronic obstructive pulmonary disease) Dyspnea on exertion On home O2 Sinus problem History of chemotherapy History of radiation therapy Personal history of arthritis History of lung disease Hyperlipemia Cancer small cell lung ca Asthma Essential hypertension COPD exacerbation Surgical History History of insertion of tunneled central venous catheter (CVC) with port History of colonoscopy Hx of cardiac catheterization Normal coronary arteries History of sinus surgery Family History Other Cancer Diabetes Social History Smoking Status: Current every day smoker tobacco type: cigarettes packs per day: 1 years smoked: 50 alcohol intake: current substance use type: denies use current occupational status: retired and disabled Travel in the last 8 weeks: None household members: spouse housing: house caffeine: Yes <Juliane Alva MD - Last Filed: 01/23/24 23:29> ROS Obtained: Yes All systems reviewed & no additional complaints except as documented Constitutional Constitutional: Denies chills, Reports fatigue, Denies fever(s), Denies headache(s) and Reports weakness (Generalized) Eyes Eyes: Denies change in vision ENT Ears, Nose, Mouth, and Throat: Denies dizziness, Denies headache(s), Denies nasal congestion and Denies sore throat Comments: Sensation of throat swelling Cardiovascular Cardiovascular: Denies chest pain, Reports dyspnea and Denies leg edema Respiratory Respiratory: Denies cough and Reports dyspnea Gastrointestinal Gastrointestingal: Denies constipation, diarrhea, nausea or vomiting Genitourinary Male Genitourinary: Denies difficulty urinating Musculoskeletal Musculoskeletal: Denies arthralgias, Denies myalgias, Denies numbness and Denies tingling Integumentary/Breasts Skin/Breast: Denies change in pigmentation Neurologic Neurologic: Denies dizziness, Denies headache(s), Denies numbness, Denies tingling and Reports weakness (Generalized) Endocrine Endocrine: Reports fatigue Physical Exam <Juliane Alva MD - Last Filed: 01/23/24 23:29> General General appearance: alert and in no apparent distress Comment: Chronically ill-appearing Head Head exam: atraumatic and normocephalic Eye Eye exam: Present PERRL and EOMI ENT ENT exam: Present mucous membranes moist Neck Neck exam: Present normal inspection and full ROM Chest Chest inspection: Present symmetric chest wall rise Respiratory Respiratory exam: Present other (Significantly diminished breath sounds throughout, requiring 4 L nasal cannula); Absent respiratory distress or stridor Cardiovascular Cardiovascular exam: Present regular rate and normal rhythm Abdominal Exam Abdominal exam: Present soft; Absent distention, tenderness, guarding or rebound Extremities Exam Extremities exam: Present full ROM; Absent edema Neurological Exam Neurological exam: Present alert and oriented X3; Absent motor sensory deficit Psychiatric Psychiatric exam: Present normal affect and normal mood Skin Skin exam: Present warm and dry HEART Score <Juliane Alva MD - Last Filed: 01/23/24 23:29> HEART Score HEART Score assessment performed?: Yes History (anamnesis): Moderately suspicious ECG: Non-specific disturbance Age: >65 years Risk factors: 1-2 risk factors Troponin: </= normal limit HEART Score: 5 <Christopher Ellsworth MD - Last Filed: 01/24/24 01:52> HEART Score HEART Score: 5 Critical Care <Juliane Alva MD - Last Filed: 01/23/24 23:29> Critical Care Time Critical Care Time: No Medical Decision Making <Juliane Alva MD - Last Filed: 01/23/24 23:29> [place] Inquiry Pt receiving controlled substance: No Vital Signs Vital Signs: 01/23/24 20:43 01/23/24 21:00 01/23/24 22:00 Temperature 98.7 F Temperature Source Oral Pulse Rate 98 H 99 H Pulse Rate [Right Radial] 101 H Respiratory Rate 20 18 18 Blood Pressure 170/91 H 159/134 H Blood Pressure [Right Arm] 177/88 H Blood Pressure Mean 114 141 Blood Pressure Mean [Right Arm] 117 Blood Pressure Source [Right Arm] Automatic Cuff Blood Pressure Position [Right Arm] Sitting 02 Sat by Pulse Oximetry 98 99 100 Oxygen Delivery Method Nasal Cannula Room Air Nasal Cannula Oxygen Flow Rate (LPM) 3 01/23/24 22:04 01/24/24 00:00 01/24/24 00:25 Temperature Temperature Source Pulse Rate 100 H 100 H 101 H Pulse Rate [Right Radial] Respiratory Rate 20 Blood Pressure 175/112 H 195/99 H 178/72 H Blood Pressure [Right Arm] Blood Pressure Mean 144 131 126 Blood Pressure Mean [Right Arm] Blood Pressure Source [Right Arm] Blood Pressure Position [Right Arm] 02 Sat by Pulse Oximetry 99 100 100 Oxygen Delivery Method Nasal Cannula Oxygen Flow Rate (LPM) 01/24/24 01:01 Temperature Temperature Source Pulse Rate 99 H Pulse Rate [Right Radial] Respiratory Rate Blood Pressure 147/87 H Blood Pressure [Right Arm] Blood Pressure Mean 116 Blood Pressure Mean [Right Arm] Blood Pressure Source [Right Arm] Blood Pressure Position [Right Arm] 02 Sat by Pulse Oximetry 100 Oxygen Delivery Method Oxygen Flow Rate (LPM) Lab Data Labs: Lab Results 01/23/24 21:17: WBC 6.3, RBC 3.69 L, Hgb 12.3 L, Hct 38.1 L, MCV 103.2 H, MCH 33.3 H, MCHC 32.3, RDW 13.4, Plt Count 383, MPV 7.8, Neut % (Auto) 67.8, Lymph % (Auto) 16.2, Gregory % (Auto) 8.6, Eos % (Auto) 6.9, Baso % (Auto) 0.6, Neut # (Auto) 4.3, Lymph # (Auto) 1.0, Gregory # (Auto) 0.5, Eos # (Auto) 0.4, Baso # (Auto) 0.0, Sodium 138, Potassium 4.2, Chloride 94 L, Carbon Dioxide 38 H, Anion Gap 10.2, BUN 10, Creatinine 0.60 L, Estimated Creat Clear 54, Estimated GFR 135, Est GFR ( Amer) 163, Glucose 157 H, Calcium 6.3 L, Total Bilirubin 0.3, AST 32, ALT 16, Alkaline Phosphatase 85, Troponin I < 0.01, Total Protein 6.8, Albumin 3.9, Globulin 2.9, Albumin/Globulin Ratio 1.3 01/23/24 22:43: VBG pH 7.27 L, VBG pCO2 81.7 H, VBG pO2 58.1 H, VBG HCO3 36.6 H, VBG Total CO2 39.1 H, VBG O2 Saturation 88.7 H, VBG Base Excess 9.7 H, VBG Lactic Acid 0.7 01/23/24 22:52: SARS-CoV-2 (PCR) Not detected, Influenza A Untype (PCR) Not detected, Influenza Type B (PCR) Not detected 01/24/24 00:23: Troponin I < 0.01 01/24/24 01:15: VBG pH 7.31, VBG pCO2 71.0 H, VBG pO2 38.0, VBG HCO3 35.1 H, VBG Total CO2 37.3 H, VBG O2 Saturation 72.1 H, VBG Base Excess 8.9 H, VBG Lactic Acid 0.6 01/23/24 21:17 01/23/24 21:17 Response Orders (Tests/Meds): ED MEDICATIONS Discontinued Medications Generic Name Dose Route Start Last Admin Trade Name Constantineq PRN Reason Stop Dose Admin Albuterol/Ipratropium 9 ml 01/23/24 22:43 01/23/24 22:50 Ipratropium/Albuterol 3 Ml Neb IH 01/23/24 22:44 9 ml ONCE ONE Administration Iopamidol 145 ml 01/23/24 23:51 01/23/24 23:52 Iopamidol-370 (76%);100ml Bottle IV 01/23/24 23:52 145 ml ONCE ONE Administration Sodium Chloride 10 ml 01/23/24 23:51 01/23/24 23:52 Sodium Chloride 0.9% 10ml Syr (Rad Only) IV 01/23/24 23:52 10 ml ONCE ONE Administration Sodium Chloride 50 ml 01/23/24 23:51 01/23/24 23:52 0.9 % Sodium Chloride 50 Ml Vial IV 01/23/24 23:52 50 ml ONCE ONE Administration ORDERS Category Date Time Status CT soft tissue neck w con Stat Cat Scan 01/23/24 22:43 Completed CTA Chest [CT angio chest PE protocol] Stat Cat Scan 01/23/24 22:43 Completed Chest XR -- portable [XR chest portable] Stat Exams 01/23/24 21:20 Completed Complete Blood Count Auto Diff Stat Lab 01/23/24 21:17 Completed Comprehensive Metabolic Panel Stat Lab 01/23/24 21:17 Completed Rapid PCR Covid and Flu A/B Stat Lab 01/23/24 22:52 Completed Troponin I Q3H Lab 01/24/24 00:23 Completed Troponin I Q3H Lab 01/24/24 03:30 Ordered Troponin I Stat Lab 01/23/24 21:17 Completed VBG [Venous Blood Gas] Stat RT 01/23/24 22:43 Completed VBG [Venous Blood Gas] Stat RT 01/24/24 01:15 Completed MDM Narrative Medical Decision Narrative: In summary, this 68year old male presents to the emergency department today with shortness of breath. On initial evaluation patient is hemodynamically stable, afebrile, he is requiring increased nasal cannula from baseline, significantly diminished breath sounds throughout, no peripheral edema, no neurodeficits, no palpable abnormalities in the neck. Differential diagnosis includes but is not limited to progression of lung cancer, pleural effusion, ACS, electrolyte abnormality, arrhythmia, PE, metastatic disease. Based on these concerns, I ordered cardiac workup, CT imaging of the neck and chest, appropriate labs. ECG personally interpreted is difficult to interpret due to abnormalities in the baseline, but on my personal interpretation patient is in sinus rhythm with rate 97, normal axis, no obvious STEMI, no interval abnormalities Patient received DuoNebs for treatment. Labs personally reviewed demonstrate no leukocytosis, mild anemia stable from prior based off my review of previous labs, VBG with pH 7.27, hypercarbia similar to prior, mild hypochloremia, stable, nonactionable, BUN and creatinine demonstrate good kidney function, calcium 6.3, initial troponin less than 0.01, repeat troponin pending, COVID/flu/RSV negative. XR personally interpreted demonstrates no new acute intrathoracic abnormality, see radiology read for final interpretation. CT imaging and repeat EKG pending at time of physician shift change. Patient handed off to Dr. Ellsworth for further management and disposition. <Christopher Ellsworth MD - Last Filed: 01/24/24 01:52> Vital Signs Vital Signs: 01/23/24 20:43 01/23/24 21:00 01/23/24 22:00 Temperature 98.7 F Temperature Source Oral Pulse Rate 98 H 99 H Pulse Rate [Right Radial] 101 H Respiratory Rate 20 18 18 Blood Pressure 170/91 H 159/134 H Blood Pressure [Right Arm] 177/88 H Blood Pressure Mean 114 141 Blood Pressure Mean [Right Arm] 117 Blood Pressure Source [Right Arm] Automatic Cuff Blood Pressure Position [Right Arm] Sitting 02 Sat by Pulse Oximetry 98 99 100 Oxygen Delivery Method Nasal Cannula Room Air Nasal Cannula Oxygen Flow Rate (LPM) 3 01/23/24 22:04 01/24/24 00:00 01/24/24 00:25 Temperature Temperature Source Pulse Rate 100 H 100 H 101 H Pulse Rate [Right Radial] Respiratory Rate 20 Blood Pressure 175/112 H 195/99 H 178/72 H Blood Pressure [Right Arm] Blood Pressure Mean 144 131 126 Blood Pressure Mean [Right Arm] Blood Pressure Source [Right Arm] Blood Pressure Position [Right Arm] 02 Sat by Pulse Oximetry 99 100 100 Oxygen Delivery Method Nasal Cannula Oxygen Flow Rate (LPM) 01/24/24 01:01 Temperature Temperature Source Pulse Rate 99 H Pulse Rate [Right Radial] Respiratory Rate Blood Pressure 147/87 H Blood Pressure [Right Arm] Blood Pressure Mean 116 Blood Pressure Mean [Right Arm] Blood Pressure Source [Right Arm] Blood Pressure Position [Right Arm] 02 Sat by Pulse Oximetry 100 Oxygen Delivery Method Oxygen Flow Rate (LPM) Lab Data Labs: Lab Results 01/23/24 21:17: WBC 6.3, RBC 3.69 L, Hgb 12.3 L, Hct 38.1 L, MCV 103.2 H, MCH 33.3 H, MCHC 32.3, RDW 13.4, Plt Count 383, MPV 7.8, Neut % (Auto) 67.8, Lymph % (Auto) 16.2, Gregory % (Auto) 8.6, Eos % (Auto) 6.9, Baso % (Auto) 0.6, Neut # (Auto) 4.3, Lymph # (Auto) 1.0, Gregory # (Auto) 0.5, Eos # (Auto) 0.4, Baso # (Auto) 0.0, Sodium 138, Potassium 4.2, Chloride 94 L, Carbon Dioxide 38 H, Anion Gap 10.2, BUN 10, Creatinine 0.60 L, Estimated Creat Clear 54, Estimated GFR 135, Est GFR ( Amer) 163, Glucose 157 H, Calcium 6.3 L, Total Bilirubin 0.3, AST 32, ALT 16, Alkaline Phosphatase 85, Troponin I < 0.01, Total Protein 6.8, Albumin 3.9, Globulin 2.9, Albumin/Globulin Ratio 1.3 01/23/24 22:43: VBG pH 7.27 L, VBG pCO2 81.7 H, VBG pO2 58.1 H, VBG HCO3 36.6 H, VBG Total CO2 39.1 H, VBG O2 Saturation 88.7 H, VBG Base Excess 9.7 H, VBG Lactic Acid 0.7 01/23/24 22:52: SARS-CoV-2 (PCR) Not detected, Influenza A Untype (PCR) Not detected, Influenza Type B (PCR) Not detected 01/24/24 00:23: Troponin I < 0.01 01/24/24 01:15: VBG pH 7.31, VBG pCO2 71.0 H, VBG pO2 38.0, VBG HCO3 35.1 H, VBG Total CO2 37.3 H, VBG O2 Saturation 72.1 H, VBG Base Excess 8.9 H, VBG Lactic Acid 0.6 Response Orders (Tests/Meds): ED MEDICATIONS Discontinued Medications Generic Name Dose Route Start Last Admin Trade Name Freq PRN Reason Stop Dose Admin Albuterol/Ipratropium 9 ml 01/23/24 22:43 01/23/24 22:50 Ipratropium/Albuterol 3 Ml Neb IH 01/23/24 22:44 9 ml ONCE ONE Administration Iopamidol 145 ml 01/23/24 23:51 01/23/24 23:52 Iopamidol-370 (76%);100ml Bottle IV 01/23/24 23:52 145 ml ONCE ONE Administration Sodium Chloride 10 ml 01/23/24 23:51 01/23/24 23:52 Sodium Chloride 0.9% 10ml Syr (Rad Only) IV 01/23/24 23:52 10 ml ONCE ONE Administration Sodium Chloride 50 ml 01/23/24 23:51 01/23/24 23:52 0.9 % Sodium Chloride 50 Ml Vial IV 01/23/24 23:52 50 ml ONCE ONE Administration ORDERS Category Date Time Status CT soft tissue neck w con Stat Cat Scan 01/23/24 22:43 Completed CTA Chest [CT angio chest PE protocol] Stat Cat Scan 01/23/24 22:43 Completed Chest XR -- portable [XR chest portable] Stat Exams 01/23/24 21:20 Completed Complete Blood Count Auto Diff Stat Lab 01/23/24 21:17 Completed Comprehensive Metabolic Panel Stat Lab 01/23/24 21:17 Completed Rapid PCR Covid and Flu A/B Stat Lab 01/23/24 22:52 Completed Troponin I Q3H Lab 01/24/24 00:23 Completed Troponin I Q3H Lab 01/24/24 03:30 Ordered Troponin I Stat Lab 01/23/24 21:17 Completed VBG [Venous Blood Gas] Stat RT 01/23/24 22:43 Completed VBG [Venous Blood Gas] Stat RT 01/24/24 01:15 Completed MDM Narrative Medical Decision Narrative: In summary, this 68year old male presents to the emergency department today with shortness of breath. On initial evaluation patient is hemodynamically stable, afebrile, he is requiring increased nasal cannula from baseline, significantly diminished breath sounds throughout, no peripheral edema, no neurodeficits, no palpable abnormalities in the neck. Differential diagnosis includes but is not limited to progression of lung cancer, pleural effusion, ACS, electrolyte abnormality, arrhythmia, PE, metastatic disease. Based on these concerns, I ordered cardiac workup, CT imaging of the neck and chest, appropriate labs. ECG personally interpreted is difficult to interpret due to abnormalities in the baseline, but on my personal interpretation patient is in sinus rhythm with rate 97, normal axis, no obvious STEMI, no interval abnormalities Patient received DuoNebs for treatment. Labs personally reviewed demonstrate no leukocytosis, mild anemia stable from prior based off my review of previous labs, VBG with pH 7.27, hypercarbia similar to prior, mild hypochloremia, stable, nonactionable, BUN and creatinine demonstrate good kidney function, calcium 6.3, initial troponin less than 0.01, repeat troponin pending, COVID/flu/RSV negative. XR personally interpreted demonstrates no new acute intrathoracic abnormality, see radiology read for final interpretation. CT imaging and repeat EKG pending at time of physician shift change. Patient handed off to Dr. Ellsworth for further management and disposition. Seng: I assume primary responsibility for this patient after signout from previous physician. Patient was placed in observation beginning at midnight on 01/23 in order to rule out evolving CT with delta troponins, give patient anxiolytics in order to attain CTA of the chest and determine need for admission versus home-going. The patient was provided hydroxyzine p.o. and oxygen by nonrebreather while awaiting results. On reevaluation, patient feeling much better. States that he has not been coughing up any sputum and just has had dry cough for the past couple of days has been worsening. Still breathing through pursed lips, mildly tachypneic, but on home oxygen. Independent interpretation of patient's results demonstrated no leukocytosis on CBC and nonactionable chemistry with normal LFTs. Patient's delta troponin is negative. Viral swab is negative. CT PE without evidence of clot, but diffuse emphysematous change. No evidence of airspace disease. Repeat VBG was ordered given patient's mild acidemia with hypercarbia on arrival. pH has normalized and patient is in compensated chronic respiratory acidosis. At this time, I feel patient is appropriate for outpatient management with 5 days of prednisone for mild COPD exacerbation. Patient already has follow-up with pulmonology scheduled. I feel this is appropriate. Because patient at baseline without signs or symptoms of clinical decompensation, deemed appropriate for discharge. Results were relayed to patient who voiced understanding and were agreeable to outpatient management and follow up. At the time of discharge the patient was hemodynamically stable, tolerating PO, and mobilizing appropriately. Total time in observation 2 hours.
[2024-01-23] MEDS: 0.9 % SODIUM CHLORIDE 50 ML VIAL IV (23:52)
[2024-01-23] MEDS: IOPAMIDOL-370 (76%);100ML BOTTLE 145 ML IV (23:52)
[2024-01-23] MEDS: SODIUM CHLORIDE 0.9% 10ML SYR (RAD ONLY) 10 ML IV (23:52)
[2024-01-24] VITALS: BP 195/99; PULSE 100; O2SAT 100
[2024-01-24 00:25] VITALS: BP 178/72; PULSE 101; O2SAT 100
[2024-01-24 00:56] LABS: Troponin I < 0.01 ng/ml (0.00-0.034)
[2024-01-24 01:01] VITALS: BP 147/87; PULSE 99; O2SAT 100
[2024-01-24 01:23] LABS: Lactate Venous 0.6 mmol/L (0.4-2.0); VBG Base Excess 8.9 mmol/L (-2.4-2.3); VBG HCO3 35.1 mmol/L (23-30); VBG Oxygen Saturation 72.1 % (50-70); VBG PH 7.31 mmol/L (7.31-7.41); VBG Total CO2 37.3 mmol/L (23-27)
[2024-01-24 01:52] VITALS: BP 147/87; PULSE 77; RESP 16; TEMP 36.8; O2SAT 99
== END 2024-01-24 02:02 | disposition home or self-care (01) ==
PROVIDERS: Emergency Medicine; Emergency Provider Emergency Medicine; PCP Internal Medicine Adolescent Medicine
DX: J44.1 Chronic obstructive pulmonary disease with (acute) exacerbation (principal); R68.84 Jaw pain; C34.90 Malignant neoplasm of unspecified part of unspecified bronchus or lung; J96.11 Chronic respiratory failure with hypoxia; I10 Essential (primary) hypertension; E78.5 Hyperlipidemia, unspecified; G47.30 Sleep apnea, unspecified; F17.210 Nicotine dependence, cigarettes, uncomplicated; D64.9 Anemia, unspecified
CPT/HCPCS: 70491; 71045; 71275; 80053; 82803; 84484; 85025; 87636; 93005; 99285; J1642; Q9967

== ENCOUNTER 2024-01-30 22:25 | Emergency (ER) | payer MEDICARE, SELFPAY ==
[2024-01-30 22:26] VITALS: BP 187/107; PULSE 110; RESP 25; TEMP 36.6; O2SAT 95; BMI 16.5
--- NOTE | 2024-01-30 22:49 | ECG_ITS ---
APPROVED REPORT Exam: Resting ECG HR:107 bpm ECG Measurements Heart Rate 107 AXES QRSd 98 QRS 81 QT 333 T 74 QTc 396 Critical Notification Critical Value: No Conclusion SINUS TACHYCARDIA TALL T-WAVES, SUGGESTS HYPERKALEMIA ABNORMAL ECG Electronically signed by : LEE RHODES, 01/31/2024 01:42:43
[2024-01-30] MEDS: METHYLPREDNISOLONE SOD SUCC 125MG VIAL 125 MG IV (22:55)
[2024-01-30 22:56] LABS: Lactate Venous 0.8 mmol/L (0.4-2.0); VBG Base Excess 9.3 mmol/L (-2.4-2.3); VBG HCO3 34.9 mmol/L (23-30); VBG Oxygen Saturation 90.8 % (50-70); VBG PCO2 64.3 mmol/L (35-51); VBG PH 7.35 mmol/L (7.31-7.41); VBG Total CO2 36.8 mmol/L (23-27)
[2024-01-30 22:58] LABS: Basophils % 0.6 % (0.1-2.0); Eosinophils # 0.3 K/mm3 (0.0-0.4); Eosinophils % 4.4 % (0.1-12.0); Hematocrit 37.2 % (42.0-52.0); Hemoglobin 11.9 g/dL (14.1-18.0); Lymphocytes # 1.5 K/mm3 (0.7-4.5); Lymphocytes % 20.7 % (10-50); Mean Corpuscular HGB Conc 32.1 g/dL (31.8-35.4); Mean Corpuscular Volume 102.8 fl (80-94); Mean Platelet Volume 7.5 fl (7.4-10.4); Monocytes # 0.6 K/mm3 (0.1-1.0); Monocytes % 8.3 % (1.7-9.3); Neutrophils # 4.9 K/mm3 (1.8-7.8); Platelet Count 347 K/mm3 (142-424); Red Blood Count 3.62 M/mm3 (4.60-6.20); Red Cell Distribution Width 13.5 % (11.5-17.5); White Blood Count 7.5 K/mm3 (4.8-10.8)
[2024-01-30 23:03] LABS: Coronavirus 19, PCR Not Detected (NotDetected); Influenza A, PCR Not Detected (NotDetected); Influenza B, PCR Not Detected (NotDetected)
[2024-01-30] MEDS: IPRATROPIUM/ALBUTEROL 3 ML NEB 9 ML IH (23:09)
--- NOTE | 2024-01-30 23:09 | XR_ITS ---
PROCEDURE INFORMATION: Exam: XR Chest Exam date and time: 01/31/2024 12:47 AM Age: 68 years old Clinical indication: Shortness of breath; Additional info: SOA, copd TECHNIQUE: Imaging protocol: Radiologic exam of the chest. Views: 2 views. Total images: 2 COMPARISON: CT ANGIO CHEST PE PROTOCOL 01/31/2024 12:42 AM FINDINGS: Tubes, catheters and devices: Status post right subclavian CT power infusion port with catheter tip in the upper SVC. Lungs: Severe emphysema. Stable right perihilar parenchymal distortion. Stable nodular density in the left upper lobe, projecting just caudal to the left clavicle. Densely calcified left lower lobe granuloma. Fine linear left basilar scarring. No pulmonary vascular congestion or interstitial edema. Stable poorly visualized cavitary nodule in the right lower lobe. Pleural spaces: Unremarkable. No pleural effusion. No pneumothorax. Heart/Mediastinum: Unremarkable. No cardiomegaly. No mediastinal widening or hilar enlargement. Bones/joints: Mild degenerative changes thoracic spine. IMPRESSION: 1. Severe pulmonary emphysema. 2. Stable right perihilar parenchymal distortion 3. Stable left upper lobe nodular density 4. Stable right lower lobe cavitary nodule. 5. Additional stable chronic findings. 6. No significant change from January 23, 2024.
[2024-01-30 23:10] VITALS: PULSE 105; PULSE 111
[2024-01-30 23:15] LABS: Troponin I < 0.01 ng/ml (0.00-0.034)
--- NOTE | 2024-01-30 23:18 | CT_ITS ---
PROCEDURE INFORMATION: Exam: CTA Chest With Contrast Exam date and time: 01/31/2024 12:42 AM Age: 68 years old Clinical indication: Shortness of breath; Additional info: SOA active lung cancer TECHNIQUE: Imaging protocol: Computed tomographic angiography of the chest with contrast. Exam focused on the arteries. 3D rendering (Not supervised by radiologist): MIP and/or 3D reconstructed images were created by the technologist. Total images: 431 Radiation optimization: All CT scans at this facility use at least one of these dose optimization techniques: automated exposure control; mA and/or kV adjustment per patient size (includes targeted exams where dose is matched to clinical indication); or iterative reconstruction. Contrast material: ISOVUE; Contrast volume: 70 ml; Contrast route: INTRAVENOUS (IV); COMPARISON: CT ANGIO CHEST PE PROTOCOL 01/23/2024 11:43 PM FINDINGS: Tubes, catheters and devices: Status post right subclavian infusion port with catheter tip in the upper SVC. Pulmonary arteries: Adequate contrast opacification of the pulmonary arteries. No acute pulmonary emboli. Aorta: Mildly atherosclerotic thoracic aorta without aneurysm or dissection. Lungs: Trachea and main bronchi are patent. Severe centrilobular emphysema. Biapical scarring. Stable spiculated nodular density posterior left upper lobe, axial image 24. Stable cavitary nodule in the right lower lobe. Stable linear scarring right upper lobe. Stable densely calcified left lower lobe granuloma. Fine linear left basilar scarring. No acute superimposed pulmonary parenchymal process. Pleural spaces: Unremarkable. No pneumothorax. No pleural effusion. Heart: Normal heart size. No pericardial effusion. Coronary arteries: No significant coronary artery calcifications. Esophagus: Nonspecific mild wall thickening the midesophagus. Mediastinal space: No mediastinal mass or fluid collection. Lymph nodes: No mediastinal lymphadenopathy. Calcified mediastinal lymph nodes compatible with remote granulomatous disease. Kidneys and ureters: Subcentimeter right renal cortical hypodensities are too small to characterize but statistically cysts requiring no strict follow-up. Intraperitoneal space: No acute process in the upper abdomen. Bones/joints: Mild degenerative changes of the thoracic spine. No acute osseous abnormality. Soft tissues: Stable infiltrating soft tissue density encompassing the right hilum. IMPRESSION: 1. No acute pulmonary emboli. 2. No aortic aneurysm or dissection. 3. Stable severe pulmonary emphysema. 4. Stable right lower lobe cavitary nodule 5. Stable 2.5 cm spiculated left upper lobe nodule. 6. Stable right perihilar distortion with infiltrating soft tissue density. 7. Remote calcified granulomatous disease. 8. No significant change from chest CT January 23, 2024. COMMENTS: 1. Consistent with the [employer]'s Incidental Findings Committee white paper (J Am Rudy Radiol 2018): Any incidental renal lesion less than 1 cm or classified as too small to characterize, or any incidental cystic renal lesion characterized as simple-appearing, is likely benign. No follow-up imaging is recommended for these lesions per consensus recommendations based on imaging criteria. 2. The presence of pulmonary emphysema on CT is an independent risk factor for lung cancer. In the absence of a history or active diagnosis of lung cancer, it is recommended that this patient with emphysema be evaluated for enrollment in a low dose CT lung cancer screening program.
--- NOTE | 2024-01-30 23:21 | ED_ITS ---
Discharge Plan Disposition Patient Disposition: Home, Self-Care Condition: Fair Prescriptions Prescriptions: New doxycycline hyclate 100 mg capsule 100 mg PO BID 7 Days Qty: 14 0RF prednisone 20 mg tablet 40 mg PO DAILY 3 Days Qty: 6 0RF No Action propranolol 10 mg tablet 10 mg PO BID Patient Comments: TAKE 1 TABLET BY MOUTH TWICE DAILY trazodone 150 mg tablet 150 mg PO DAILY lidocaine-prilocaine 2.5-2.5 % cream 2.5 g topical DIRECTED PRN (Reason: NUMB ) Patient Comments: USE DIRECTED albuterol sulfate 90 mcg/actuation HFA aerosol inhaler 2 inh IH QID PRN (Reason: shortness of breath or wheezing) 90 Days Qty: 8.5 2RF ipratropium-albuterol 0.5 mg-3 mg(2.5 mg base)/3 mL solution for nebulization 3 ml inhalation QID PRN (Reason: shortness of breath or wheezing) 90 Days Qty: 270 3RF Trelegy Ellipta 100-62.5-25 mcg blister with device 1 inh inhalation DAILY prednisone 20 mg tablet 40 mg PO DAILY 5 Days Qty: 10 0RF aspirin 325 mg Tablet 325 mg PO DAILY Referrals Follow up/Referrals: Main Carrington MD [Primary Care Provider] - See instructions Activity Restrictions/Add. Instructions Additional Instructions/Restrictions: You were evaluated in the ER. Continue taking your home medications as previously prescribed. Take the prescribed doxycycline as directed, drink a full glass of water with this medication and stay sitting upright for at least 30 minutes after taking this medication. Do not skip doses, do not stop taking it early. You have been prescribed a short course of prednisone. Take this as directed. As discussed, take your albuterol inhaler every 4 hours for the next 48 hours. Make an appointment with your primary care physician for reevaluation in 2 to 3 days, also follow-up with your oncology team as soon as possible. Return to the ER with new, worsening, or otherwise concerning symptoms Clinical Impressions Clinical Impression: Shortness of breath, Lung cancer, Asthma exacerbation in COPD Discharge ED Provider: Juliane Alva General Chief Complaint: Shortness of Breath/Dyspnea Stated Complaint: SOA Time Seen by Provider: 01/30/24 22:41 Mode of Arrival: Wheelchair Source of Information: Patient and Spouse Limitations: No Limitations Description of Symptoms (Recalled from ER Triage Doc. by RN): Patient arrived via wheelchair with shortness of breath that has been increasing since early afternoon. Patient was seen last Thursday for the same symptoms and started on steroids. Patient reports significant improvement while on steroids, which he completed on Thursday. Patient has history of lung cancer and current tobacco use with home oxygen 3LNC> History of Present Illness HPI narrative: 68-year-old male with active lung cancer with liver mets presents to the ER with shortness of breath. Patient reports symptoms started worsening early this afternoon. He also describes a squeezing pain in his throat that started around that time. Patient states he was seen for the same symptoms last Thursday and was started on steroids. He and report he improved significantly while on the steroids but completed them on Thursday. Patient states he was on immunotherapy but is currently on break since December. He has never had a blood clot, no swelling or pain in the legs, patient states the discomfort in his throat has subsided. He never had any difficulties swallowing, no emesis, nausea, or vomiting. Patient denies any chest pain. Patient smokes and wears 3 L nasal cannula at baseline. He states he took 4 DuoNebs at home during the day prior to arrival. states patient seemed anxious when he went to bed and was having difficulty sleeping and with the worsening of symptoms she brought him to the ER for reevaluation. Related Data Home Medications Medication Instructions Recorded Confirmed trazodone 150 mg tablet 150 mg PO DAILY sleep 07/03/22 01/13/24 fluticasone fur. 100 mcg-umeclid 1 inh inhalation DAILY Copd 01/05/23 01/13/24 62.5 mcg-vilant 25 mcg inhalat.powder (Trelegy Ellipta) lidocaine-prilocaine 2.5 %-2.5 % 2.5 g topical DIRECTED PRN NUMB 01/20/23 01/13/24 topical cream aspirin 325 mg tablet 325 mg PO DAILY Heart Disease 05/11/23 01/13/24 propranolol 10 mg tablet 10 mg PO BID 12/16/23 01/13/24 Previous Rx's Medication Instructions Recorded albuterol sulfate 90 mcg/actuation 2 inh inhalation QID PRN shortness 11/12/23 aerosol inhaler of breath or wheezing 90 days #8.5 grams ipratropium 0.5 mg-albuterol 3 mg 3 ml inhalation QID PRN shortness 12/31/23 (2.5 mg base)/3 mL nebulization of breath or wheezing 90 days #270 soln mL prednisone 20 mg tablet 40 mg (2 x 20 mg) PO DAILY 5 days 01/24/24 #10 tabs doxycycline hyclate 100 mg capsule 100 mg PO BID 7 days #14 caps 01/31/24 prednisone 20 mg tablet 40 mg (2 x 20 mg) PO DAILY 3 days 01/31/24 #6 tabs Allergies Allergy/AdvReac Type Severity Reaction Status Date / Time silver Allergy Severe Rash Verified 01/27/24 10:16 [From Tegaderm AG Mesh] Penicillins [PENICILLINS] Allergy Mild Verified 01/27/24 10:16 amitriptyline AdvReac Intermediate gi upset Verified 01/27/24 10:16 adhesive AdvReac Verified 01/27/24 10:16 hydrocodone AdvReac Verified 01/27/24 10:16 PFSH PFS Disclaimer: The information contained in this section may have been updated after the patient was seen, as this information can be updated by other users. Medical History Lung nodule Hilar lymphadenopathy Pneumonia Sleep apnea Emphysema/COPD Chronic cough Bronchitis Allergies History of anemia Lung collapse Nodule of right lung Tobacco abuse disorder Tobacco abuse counseling Small cell lung cancer Smoking greater than 30 pack years Chronic hypoxemic respiratory failure COPD (chronic obstructive pulmonary disease) Dyspnea on exertion On home O2 Sinus problem History of chemotherapy History of radiation therapy Personal history of arthritis History of lung disease Hyperlipemia Cancer small cell lung ca Asthma Essential hypertension COPD exacerbation Surgical History History of insertion of tunneled central venous catheter (CVC) with port History of colonoscopy Hx of cardiac catheterization Normal coronary arteries History of sinus surgery Family History Other Cancer Diabetes Social History Smoking Status: Current every day smoker tobacco type: cigarettes packs per day: 1 years smoked: 50 alcohol intake: current substance use type: denies use current occupational status: retired and disabled Travel in the last 8 weeks: None household members: spouse housing: house caffeine: Yes ROS Obtained: Yes All systems reviewed & no additional complaints except as documented Constitutional Constitutional: Denies chills, Denies fever(s), Denies headache(s) and Denies weakness Eyes Eyes: Denies change in vision ENT Ears, Nose, Mouth, and Throat: Denies dizziness, Denies headache(s), Denies nasal congestion and Denies sore throat Comments: Squeezing sensation of the throat Cardiovascular Cardiovascular: Denies chest pain, Reports dyspnea and Denies leg edema Respiratory Respiratory: Denies cough and Reports dyspnea Gastrointestinal Gastrointestingal: Denies constipation, diarrhea, nausea or vomiting Genitourinary Male Genitourinary: Denies difficulty urinating Musculoskeletal Musculoskeletal: Denies arthralgias, Denies myalgias, Denies numbness and Denies tingling Integumentary/Breasts Skin/Breast: Denies change in pigmentation Neurologic Neurologic: Denies dizziness, Denies headache(s), Denies numbness, Denies tingling and Denies weakness Physical Exam General General appearance: alert and cachectic Head Head exam: atraumatic and normocephalic Eye Eye exam: Present PERRL and EOMI ENT ENT exam: Present mucous membranes moist Neck Neck exam: Present normal inspection and full ROM Chest Chest inspection: Present symmetric chest wall rise Respiratory Respiratory exam: Present other (Severely diminished breath sounds throughout, I am able to appreciate some air movement while patient is currently receiving DuoNeb) Cardiovascular Cardiovascular exam: Present normal rhythm and tachycardia Abdominal Exam Abdominal exam: Present soft; Absent distention, tenderness, guarding or rebound Extremities Exam Extremities exam: Present full ROM Neurological Exam Neurological exam: Present alert and oriented X3; Absent motor sensory deficit Psychiatric Psychiatric exam: Present normal affect and normal mood Skin Skin exam: Present warm and dry HEART Score HEART Score HEART Score assessment performed?: Yes History (anamnesis): Slightly suspicious ECG: Non-specific disturbance Age: >65 years Risk factors: 1-2 risk factors Troponin: </= normal limit HEART Score: 4 Critical Care Critical Care Time Critical Care Time: No Medical Decision Making Alvarado Inquiry Pt receiving controlled substance: No Vital Signs Vital Signs: 01/30/24 22:26 01/30/24 23:10 01/30/24 23:10 Temperature 97.8 F Temperature Source Oral Pulse Rate 105 H 111 H Pulse Rate [Left Radial] 110 H Respiratory Rate 25 H Blood Pressure Blood Pressure [Right Arm] 187/107 H Blood Pressure Mean Blood Pressure Mean [Right Arm] 133 Blood Pressure Source [Right Arm] Automatic Cuff Blood Pressure Position [Right Arm] Sitting 02 Sat by Pulse Oximetry 95 Oxygen Delivery Method Nasal Cannula Oxygen Flow Rate (LPM) 3 01/30/24 23:31 01/31/24 00:30 01/31/24 00:40 Temperature Temperature Source Pulse Rate 108 H 115 H 117 H Pulse Rate [Left Radial] Respiratory Rate Blood Pressure 153/95 H Blood Pressure [Right Arm] Blood Pressure Mean 112 Blood Pressure Mean [Right Arm] Blood Pressure Source [Right Arm] Blood Pressure Position [Right Arm] 02 Sat by Pulse Oximetry 100 Oxygen Delivery Method Aerosol Mask Oxygen Flow Rate (LPM) 10 Lab Data Labs: Lab Results 01/30/24 22:25: WBC 7.5, RBC 3.62 L, Hgb 11.9 L, Hct 37.2 L, MCV 102.8 H, MCH 33.0 H, MCHC 32.1, RDW 13.5, Plt Count 347, MPV 7.5, Neut % (Auto) 66.0, Lymph % (Auto) 20.7, Hayes % (Auto) 8.3, Eos % (Auto) 4.4, Baso % (Auto) 0.6, Neut # (Auto) 4.9, Lymph # (Auto) 1.5, Hayes # (Auto) 0.6, Eos # (Auto) 0.3, Baso # (Auto) 0.0, Sodium 138, Potassium 3.9, Chloride 96 L, Carbon Dioxide 41 H*, A nion Gap 4.9 L, BUN 12, Creatinine 0.70, Estimated Creat Clear 54, Estimated GFR 113, Est GFR ( Amer) 137, Glucose 116 H, Calcium 6.6 L, Total Bilirubin 0.4, AST 29, ALT 12, Alkaline Phosphatase 90, Troponin I < 0.01, Total Protein 6.4, Albumin 3.9, Globulin 2.5, Albumin/Globulin Ratio 1.6 01/30/24 22:41: VBG pH 7.35, VBG pCO2 64.3 H, VBG pO2 63.0 H, VBG HCO3 34.9 H, V BG Total CO2 36.8 H, VBG O2 Saturation 90.8 H, VBG Base Excess 9.3 H, VBG Lactic Acid 0.8 01/30/24 22:46: SARS-CoV-2 (PCR) Not detected, Influenza A Untype (PCR) Not detected, Influenza Type B (PCR) Not detected 01/30/24 22:25 01/30/24 22:25 Response Orders (Tests/Meds): ED MEDICATIONS Generic Name Dose Route Start Last Admin Trade Name Freq PRN Reason Stop Dose Admin Azithromycin 500 mg/ Sodium 250 mls @ 250 mls/hr 01/30/24 22:45 01/30/24 23:51 Chloride IV 02/09/24 22:44 250 mls/hr Q24H DOREEN Administration Sodium Chloride 10 ml 01/31/24 00:57 Sodium Chloride 0.9% 10ml Syr (Rad Only) IV 03/01/24 00:56 NEEDED PRN Maintain IV Site Discontinued Medications Generic Name Dose Route Start Last Admin Trade Name Freq PRN Reason Stop Dose Admin Albuterol Sulfate 20 mg 01/30/24 23:19 01/30/24 23:27 Albuterol 0.083% 2.5 Mg/3 Ml [facility] 01/30/24 23:20 20 mg ONCE ONE Administration Albuterol/Ipratropium 9 ml 01/30/24 22:41 01/30/24 23:09 Ipratropium/Albuterol 3 Ml [facility] 01/30/24 22:42 9 ml ONCE ONE Administration Iopamidol 70 ml 01/31/24 00:57 Iopamidol-370 (76%);100ml Bottle IV 01/31/24 00:58 ONCE ONE Methylprednisolone Sodium Succinate 125 mg 01/30/24 22:41 01/30/24 22:55 Methylprednisolone Sod Succ 125mg Vial IV 01/30/24 22:42 125 mg ONCE ONE Administration Sodium Chloride 50 ml 01/31/24 00:57 0.9 % Sodium Chloride 50 Ml Vial IV 01/31/24 00:58 ONCE ONE ORDERS Category Date Time Status CT angio chest PE protocol Stat Cat Scan 01/30/24 23:18 Completed CXR 2 view (NOT portable) [XR chest 2V] Stat Exams 01/30/24 23:09 Completed CBC w/Auto Diff [Complete Blood Count Auto Diff] Stat Lab 01/30/24 22:25 Completed CMP [Comprehensive Metabolic Panel] Stat Lab 01/30/24 22:25 Completed Rapid PCR Covid and Flu A/B Stat Lab 01/30/24 22:46 Completed Trop I [Troponin I] Stat Lab 01/30/24 22:25 Completed Troponin I Q3H Lab 01/31/24 01:45 Ordered Troponin I Q3H Lab 01/31/24 04:45 Ordered Blood Culture Stat Micro 01/30/24 23:07 Received VBG [Venous Blood Gas] Stat RT 01/30/24 22:41 Completed MDM Narrative Medical Decision Narrative: In summary, this 68year old male presents to the emergency department today with difficulty breathing, throat tightening sensation present at home that is now absent in the ED. Comorbidities of current condition include recent presentation for similar symptoms 1 week ago, history of COPD, emphysema, active lung cancer all of which increase patient's overall morbidity and the amount of data to be reviewed. On initial evaluation patient is tachycardic but overall hemodynamically stable, he clearly has increased work of breathing with severely diminished breath sounds throughout, cachectic and chronically ill-appearing, but he is not in extremis. Differential diagnosis includes but is not limited to COPD exacerbation, pneumonia, PE, ACS, I also considered the possibility of advancing malignancy causing obstruction. Patient complained of a squeezing sensation in his throat that is now absent, differential for this includes anxiety, advancing malignancy. I reviewed the most recent radiology read of CT soft tissue neck from 01/23/2024 that was performed for the same reasons patient presents with today, no findings of malignancy, soft tissue swelling, or other abnormalities that would be causing the patient's symptoms were identified on that CT imaging. Since patient is asymptomatic at this time and had imaging for identical symptoms 1 week ago, I do not believe he requires repeat CT soft tissue neck at this time. Based on these concerns, I ordered cardiac workup, aggressive respiratory treatments, VBG, CTA PE, basic labs. ECG personally interpreted demonstrates sinus tachycardia, rate 107, tall T waves, normal axis, normal QTc, no STEMI. Patient received DuoNebs, IV methylprednisolone, continuous albuterol, azithromycin for treatment. Labs personally reviewed demonstrate VBG with hypercarbia that this is slightly improved from previous VBG's, pH 7.35. CBC with no leukocytosis, mild anemia, similar to 1 week ago, CMP with normal sodium, potassium, chloride. Reassuring potassium given patient does have tall T waves on EKG that the T waves are not caused by hyperkalemia, BUN and creatinine normal, no findings of liver dysfunction, initial troponin undetectable at less than 0.01. I do not believe repeat troponin is necessary at this time since patient had no chest pain and no ischemic changes on initial EKG. Negative COVID/flu. XR personally interpreted demonstrates large lung mcgill, emphysema, no lobar infiltrate, nodules are present but stable. See radiology read for final interpretation. CT imaging personally interpreted demonstrate no pulmonary embolism, stable findings of cancer. No new acute intrathoracic abnormality appreciated on my personal interpretation. See radiology read for final interpretation. On reassessment, patient is breathing more comfortably and moving better air. He is on his home 3 L nasal cannula and saturating 100%. He states he feels back to normal. states he looks like he is breathing back at his baseline. Patient did not receive antibiotics the last time he was seen for COPD exacerbation and with his recurrence, I do believe it is prudent to treat as though he has potential underlying infection. He is also receiving only a short course of prednisone as he recently completed a course of steroids and I do not want to cause adrenal insufficiency with chronic steroid treatment but I do believe additional steroid would be beneficial. Prednisone and doxycycline were prescribed. Patient also received 1 dose of doxycycline in the ED. Patient was given instructions on symptomatic management, follow up instructions, and return precautions for the emergency department. Patient and indicated understanding and was discharged in stable condition.
[2024-01-30 23:25] LABS: Chloride 96 mmol/L (98-107); Potassium 3.9 mmoL/L (3.5-5.1); Sodium 138 mmol/L (136-145)
[2024-01-30] MEDS: ALBUTEROL 0.083% 2.5 MG/3 ML NEB 20 MG IH (23:27)
[2024-01-30 23:28] LABS: Alanine Aminotransferase 12 U/L (12-78); Albumin Level 3.9 g/dl (3.5-5.0); Albumin/Globulin Ratio 1.6 (1.1-1.8); Alkaline Phosphatase 90 U/L (38-126); Aspartate Amino Transferase 29 U/L (17-59); Bilirubin,Total 0.4 mg/dl (0.2-1.3); Blood Urea Nitrogen 12 mg/dl (9-20); Calcium 6.6 mg/dl (8.4-10.2); Creatinine Clearance Estimated 54 mL/min (50-200); Estimated Glomerular Filt Rate 113 ml/min (>60); GFR (African American) 137 ML/MIN (>60); Globulin 2.5 g/dL (1.3-3.2); Glucose 116 mg/dl (74-100); Total Protein,Serum 6.4 g/dl (6.3-8.2)
[2024-01-30 23:31] VITALS: PULSE 108
[2024-01-30 23:37] LABS: Anion Gap 4.9 mEq/L (5-15); Carbon Dioxide 41 mmol/L (22.0-30.0)
--- NOTE | 2024-01-30 23:39 | HMH.ITSTN ---
told respiratory to let radiology know when he finished breathing treatment due to being an hour long breathing treatment
[2024-01-30] MEDS: AZITHROMYCIN 500 MG in 0.9 % SODIUM CHLORIDE 250 ML 250 MG IV (23:51)
[2024-01-31 00:30] VITALS: BP 153/95; PULSE 115; O2SAT 100
[2024-01-31 00:40] VITALS: PULSE 117
[2024-01-31 01:30] VITALS: BP 137/80; PULSE 106; O2SAT 100
--- NOTE | 2024-01-31 01:37 | PC.NURSE ---
unhooked and flushed pts port. pt voices no needs at this time
[2024-01-31 02:07] VITALS: BP 135/73; PULSE 114; O2SAT 99
[2024-01-31] MEDS: DOXYCYCLINE HYCL 100 MG TABLET PO (02:16)
[2024-01-31 02:28] VITALS: BP 135/73; PULSE 104; RESP 24; TEMP 36.5; O2SAT 100
== END 2024-01-31 02:29 | disposition home or self-care (01) ==
PROVIDERS: Emergency Medicine; Emergency Provider Emergency Medicine; PCP Internal Medicine Adolescent Medicine
DX: J44.1 Chronic obstructive pulmonary disease with (acute) exacerbation (principal); R06.02 Shortness of breath; C34.90 Malignant neoplasm of unspecified part of unspecified bronchus or lung; F17.210 Nicotine dependence, cigarettes, uncomplicated
CPT/HCPCS: 71046; 71275; 80053; 82803; 84484; 85025; 87040; 87636; 93005; 96365; 96375; 99285; J0456; J1642

== ENCOUNTER 2024-02-23 09:13 | Outpatient (CLI) | payer MEDICARE, SELFPAY ==
[2024-02-23 09:29] VITALS: BMI 17.0
[2024-02-23 09:55] LABS: Chloride 99 mmol/L (98-107); Sodium 139 mmol/L (136-145)
[2024-02-23 09:56] LABS: Basophils # 0.1 K/mm3 (0-0.2); Basophils % 0.8 % (0.1-2.0); Eosinophils # 0.4 K/mm3 (0.0-0.4); Eosinophils % 7.2 % (0.1-12.0); Hematocrit 37.1 % (42.0-52.0); Hemoglobin 11.6 g/dL (14.1-18.0); Lymphocytes # 1.4 K/mm3 (0.7-4.5); Lymphocytes % 25.4 % (10-50); Mean Corpuscular HGB Conc 31.3 g/dL (31.8-35.4); Mean Corpuscular Hemoglobin 32.2 pg (27.0-31.2); Mean Corpuscular Volume 102.9 fl (80-94); Mean Platelet Volume 7.5 fl (7.4-10.4); Monocytes # 0.4 K/mm3 (0.1-1.0); Monocytes % 7.3 % (1.7-9.3); Neutrophils # 3.3 K/mm3 (1.8-7.8); Neutrophils % 59.4 % (37.0-80.0); Platelet Count 323 K/mm3 (142-424); Potassium 4.1 mmoL/L (3.5-5.1); Red Blood Count 3.61 M/mm3 (4.60-6.20); Red Cell Distribution Width 13.9 % (11.5-17.5); White Blood Count 5.6 K/mm3 (4.8-10.8)
[2024-02-23 09:58] LABS: Alanine Aminotransferase 14 U/L (12-78); Albumin Level 3.9 g/dl (3.5-5.0); Albumin/Globulin Ratio 1.3 (1.1-1.8); Alkaline Phosphatase 85 U/L (38-126); Anion Gap 8.1 mEq/L (5-15); Aspartate Amino Transferase 29 U/L (17-59); Bilirubin,Total 0.6 mg/dl (0.2-1.3); Blood Urea Nitrogen 8 mg/dl (9-20); Carbon Dioxide 36 mmol/L (22.0-30.0); Creatinine Clearance Estimated 55 mL/min (50-200); Estimated Glomerular Filt Rate 113 ml/min (>60); GFR (African American) 137 ML/MIN (>60); Globulin 2.9 g/dL (1.3-3.2); Total Protein,Serum 6.8 g/dl (6.3-8.2)
[2024-02-23 09:59] LABS: Calcium 7.2 mg/dl (8.4-10.2); Glucose 117 mg/dl (74-100)
[2024-02-23] MEDS: ONDANSETRON 4MG/2ML VIAL 8 MG (10:35)
[2024-02-23] MEDS: SODIUM CHLORIDE 0.9% IV (11:06)
[2024-02-23] MEDS: NIVOLUMAB IV (11:06)
[2024-02-23 11:10] VITALS: BP 143/81; PULSE 84; RESP 20; O2SAT 100
[2024-02-23] MEDS: SODIUM CHLORIDE 0.9% 10ML FLUSH SYRINGE 10 ML IV (11:50)
[2024-02-23 11:52] VITALS: BP 134/91; PULSE 87; RESP 20; O2SAT 100
[2024-02-24 15:29] LABS: Adrenocorticotropic Hormone 36.4 pg/mL (7.2-63.3)
== END 2024-02-23 11:52 | disposition home or self-care (01) ==
LOC: INF 09:14
PROVIDERS: PCP Internal Medicine Adolescent Medicine; Visit Provider Internal Medicine Medical Oncology
DX: C34.90 Malignant neoplasm of unspecified part of unspecified bronchus or lung (principal); Z79.899 Other long term (current) drug therapy
CPT/HCPCS: 80053; 82024; 82533; 84443; 85025; 96413; J1642; J2405; J9299

== ENCOUNTER 2024-03-22 08:39 | Outpatient (CLI) | payer MEDICARE, SELFPAY ==
[2024-03-22 08:43] VITALS: BMI 16.3
[2024-03-22 09:00] LABS: Basophils # 0.1 K/mm3 (0-0.2); Basophils % 0.7 % (0.1-2.0); Eosinophils # 0.5 K/mm3 (0.0-0.4); Eosinophils % 7.1 % (0.1-12.0); Hematocrit 36.7 % (42.0-52.0); Hemoglobin 11.8 g/dL (14.1-18.0); Lymphocytes # 1.1 K/mm3 (0.7-4.5); Lymphocytes % 15.8 % (10-50); Mean Corpuscular HGB Conc 32.2 g/dL (31.8-35.4); Mean Corpuscular Hemoglobin 32.6 pg (27.0-31.2); Mean Corpuscular Volume 101.2 fl (80-94); Mean Platelet Volume 8.5 fl (7.4-10.4); Monocytes # 0.6 K/mm3 (0.1-1.0); Monocytes % 8.9 % (1.7-9.3); Neutrophils # 4.5 K/mm3 (1.8-7.8); Neutrophils % 67.5 % (37.0-80.0); Platelet Count 322 K/mm3 (142-424); Red Blood Count 3.63 M/mm3 (4.60-6.20); Red Cell Distribution Width 14.2 % (11.5-17.5); White Blood Count 6.7 K/mm3 (4.8-10.8)
[2024-03-22 09:07] LABS: Alanine Aminotransferase 13 U/L (12-78); Albumin/Globulin Ratio 1.3 (1.1-1.8); Alkaline Phosphatase 85 U/L (38-126); Aspartate Amino Transferase 27 U/L (17-59); Bilirubin,Total 0.5 mg/dl (0.2-1.3); Blood Urea Nitrogen 10 mg/dl (9-20); Calcium 6.6 mg/dl (8.4-10.2); Carbon Dioxide 36 mmol/L (22.0-30.0); Chloride 96 mmol/L (98-107); Creatinine Clearance Estimated 53 mL/min (50-200); Estimated Glomerular Filt Rate 135 ml/min (>60); GFR (African American) 163 ML/MIN (>60); Glucose 126 mg/dl (74-100); Sodium 140 mmol/L (136-145)
[2024-03-22 09:24] LABS: T4 (Thyroxine) 7.8 ug/dl (5.53-11.0)
[2024-03-22 09:38] LABS: Thyroid Stimulating Hormone 1.07 uIU/mL (0.465-4.68)
[2024-03-22] MEDS: 0.9 % SODIUM CHLORIDE 50 ML 100 ML IV (09:58)
[2024-03-22] MEDS: SODIUM CHLORIDE 0.9% IV (09:59)
[2024-03-22] MEDS: NIVOLUMAB IV (09:59)
[2024-03-22] MEDS: ONDANSETRON 4MG/2ML VIAL 8 MG (09:59)
[2024-03-22 10:02] VITALS: BP 154/87; PULSE 78; RESP 18; TEMP 36.5; O2SAT 100
[2024-03-22] MEDS: SODIUM CHLORIDE 0.9% 10ML FLUSH SYRINGE 10 ML IV (10:40)
[2024-03-22 10:45] VITALS: BP 134/70; PULSE 63; RESP 18; O2SAT 100
== END 2024-03-22 23:59 | disposition home or self-care (01) ==
LOC: INF 08:40
PROVIDERS: PCP Internal Medicine Adolescent Medicine; Visit Provider Internal Medicine Medical Oncology
DX: C34.90 Malignant neoplasm of unspecified part of unspecified bronchus or lung (principal); R06.02 Shortness of breath; Z79.899 Other long term (current) drug therapy
CPT/HCPCS: 80053; 84436; 84443; 85025; 96413; J1642; J2405; J9299

== ENCOUNTER 2024-04-21 08:38 | Outpatient (CLI) | payer MEDICARE, SELFPAY ==
[2024-04-21 08:39] VITALS: BMI 17.0
[2024-04-21 08:59] LABS: Basophils % 0.8 % (0.1-2.0); Eosinophils # 0.3 K/mm3 (0.0-0.4); Eosinophils % 6.9 % (0.1-12.0); Hematocrit 34.6 % (42.0-52.0); Hemoglobin 11.6 g/dL (14.1-18.0); Lymphocytes # 1.3 K/mm3 (0.7-4.5); Lymphocytes % 26.3 % (10-50); Mean Corpuscular HGB Conc 33.7 g/dL (31.8-35.4); Mean Corpuscular Hemoglobin 33.4 pg (27.0-31.2); Mean Platelet Volume 8.4 fl (7.4-10.4); Monocytes # 0.4 K/mm3 (0.1-1.0); Monocytes % 7.8 % (1.7-9.3); Neutrophils # 2.9 K/mm3 (1.8-7.8); Neutrophils % 58.2 % (37.0-80.0); Platelet Count 274 K/mm3 (142-424); Red Blood Count 3.49 M/mm3 (4.60-6.20); Red Cell Distribution Width 14.3 % (11.5-17.5)
[2024-04-21 09:08] LABS: Chloride 100 mmol/L (98-107); Potassium 3.9 mmoL/L (3.5-5.1); Sodium 137 mmol/L (136-145)
[2024-04-21 09:11] LABS: Alanine Aminotransferase 11 U/L (12-78); Albumin Level 4.2 g/dl (3.5-5.0); Albumin/Globulin Ratio 1.4 (1.1-1.8); Alkaline Phosphatase 73 U/L (38-126); Anion Gap 11.9 mEq/L (5-15); Aspartate Amino Transferase 29 U/L (17-59); Bilirubin,Total 0.4 mg/dl (0.2-1.3); Blood Urea Nitrogen 12 mg/dl (9-20); Calcium 6.9 mg/dl (8.4-10.2); Carbon Dioxide 29 mmol/L (22.0-30.0); Creatinine Clearance Estimated 55 mL/min (50-200); Estimated Glomerular Filt Rate 113 ml/min (>60); GFR (African American) 137 ML/MIN (>60); Globulin 2.9 g/dL (1.3-3.2); Glucose 111 mg/dl (74-100); Total Protein,Serum 7.1 g/dl (6.3-8.2)
[2024-04-21] MEDS: ONDANSETRON 4MG/2ML VIAL 8 MG (09:40)
[2024-04-21 09:42] LABS: Thyroid Stimulating Hormone 1.13 uIU/mL (0.465-4.68)
[2024-04-21] MEDS: NIVOLUMAB IV (10:10)
[2024-04-21] MEDS: SODIUM CHLORIDE 0.9% IV (10:10)
[2024-04-21 10:15] VITALS: BP 157/85; PULSE 86; RESP 19; TEMP 36.6; O2SAT 99
[2024-04-21] MEDS: SODIUM CHLORIDE 0.9% 50ML BAG 50 ML IV (10:15)
[2024-04-21] MEDS: SODIUM CHLORIDE 0.9% 10ML FLUSH SYRINGE 10 ML IV (10:58)
[2024-04-21 11:03] VITALS: BP 156/76; PULSE 91; RESP 19; O2SAT 99
[2024-04-22 15:11] LABS: Adrenocorticotropic Hormone 33.8 pg/mL (7.2-63.3)
== END 2024-04-21 11:03 | disposition home or self-care (01) ==
LOC: INF 08:39
PROVIDERS: PCP Internal Medicine Adolescent Medicine; Visit Provider Internal Medicine Medical Oncology
DX: C34.90 Malignant neoplasm of unspecified part of unspecified bronchus or lung (principal); Z79.899 Other long term (current) drug therapy; C78.7 Secondary malignant neoplasm of liver and intrahepatic bile duct; Z87.891 Personal history of nicotine dependence; Z51.11 Encounter for antineoplastic chemotherapy
CPT/HCPCS: 80050; 80053; 82024; 82533; 84443; 85025; 96413; J1642; J2405; J9299

== ENCOUNTER 2024-05-10 11:39 | Outpatient (POV) | payer MEDICARE, SELFPAY | END 2024-05-10 23:59 | disposition home or self-care (01) | LOC: SC 11:40 | PROVIDERS: Visit Provider Specialist/Technologist | DX: Z00.00 Encounter for general adult medical examination without abnormal findings (principal) ==

== ENCOUNTER 2024-05-10 12:25 | Outpatient (CLI) | payer MEDICARE, SELFPAY ==
[2024-05-10 13:00] VITALS: PULSE 77
[2024-05-10] MEDS: ALBUTEROL 0.083% 2.5 MG/3 ML NEB IH (13:00)
== END 2024-05-10 23:59 | disposition home or self-care (01) ==
LOC: RT 12:25
PROVIDERS: PCP Internal Medicine Adolescent Medicine; Visit Provider Internal Medicine Pulmonary Disease
DX: J44.9 Chronic obstructive pulmonary disease, unspecified (principal); F17.210 Nicotine dependence, cigarettes, uncomplicated
CPT/HCPCS: 94060; 94618; 94640; J7613

== ENCOUNTER 2024-05-20 08:56 | Outpatient (CLI) | payer MEDICARE, SELFPAY ==
[2024-05-20 09:01] VITALS: BMI 17.0
--- NOTE | 2024-05-20 09:09 | CT_ITS ---
FINAL REPORT TECHNIQUE: After the administration of oral and intravenous contrast, axial images were obtained through the abdomen and pelvis by computed tomography. The study was performed with techniques to keep radiation dose as low as reasonably achievable, (ALARA). Individual dose reduction techniques using automated exposure control or adjustment of mA and/or kV according to the patient's size were employed. CLINICAL HISTORY: LUNG CANCER COMPARISON: 01/12/2024 FINDINGS: Abdomen: There are several less than 1 cm low-attenuation masses in the liver that are stable since prior, favor small cysts. The spleen is unremarkable. The adrenals are normal. The pancreas is unremarkable. There is a stable less than 1 cm mass in the posterior right kidney, favor a small cyst. Moderate vascular calcification is identified. The aorta is normal in caliber. There is no free fluid. Pelvis: The appendix is normal. There are small inguinal hernias containing fat. There are borderline bilateral inguinal nodes which are stable, favor reactive. The urinary bladder is unremarkable. There is no free fluid. IMPRESSION: Stable hepatic and renal masses, favor cysts. Reviewed, Interpreted and Dictated by Apollo Rea III, MD Transcribed by Bre Gross Authenticated and [facility]
--- NOTE | 2024-05-20 09:09 | CT_ITS ---
FINAL REPORT TECHNIQUE: Axial CT images of the chest were obtained with contrast. Coronal reformatted images were also obtained. This study was performed with techniques to keep radiation doses as low as reasonably achievable, (ALARA). Individualized dose reduction techniques using automated exposure control or adjustment of mA and/or KV according to the patient's size were employed. CLINICAL HISTORY: lung cancer COMPARISON: 01/31/2024 FINDINGS: There is persistent soft tissue in the mediastinum and right hilum which is stable, may represent posttreatment change. There is partial improvement in the wall thickening of the mid esophagus, favor inflammatory. Severe emphysema is identified. There is mild pulmonary scarring. There is an 18 mm partially cavitary focus in the posterior left upper lobe which is stable in size but the soft tissue component is much improved. There is a persistent cavitary nodule in the right lower lobe measuring 23 mm which has not significantly changed in size but the wall thickening has visually improved. No new mass or nodule is identified. There is a calcified granuloma in the left lower lobe. Note is made of a right chest port. IMPRESSION: Improved bilateral nodules, likely improved neoplastic involvement. Persistent soft tissue in the mediastinum and right hilum, may represent posttreatment change. Reviewed, Interpreted and Dictated by Apollo Rea III, MD Transcribed by Bre Gross Authenticated and [facility]
[2024-05-20] MEDS: SODIUM CHLORIDE 0.9% 10ML FLUSH SYRINGE 10 ML IV (09:28)
[2024-05-20] MEDS: SODIUM CHLORIDE 0.9% 10ML SYR (RAD ONLY) 10 ML IV (09:33)
[2024-05-20] MEDS: IOPAMIDOL-370 (76%);100ML BOTTLE 85 ML IV (09:33)
[2024-05-20 09:36] LABS: Alanine Aminotransferase 13 U/L (12-78); Albumin Level 4.2 g/dl (3.5-5.0); Albumin/Globulin Ratio 1.4 (1.1-1.8); Alkaline Phosphatase 77 U/L (38-126); Anion Gap 11.1 mEq/L (5-15); Aspartate Amino Transferase 29 U/L (17-59); Bilirubin,Total 0.4 mg/dl (0.2-1.3); Blood Urea Nitrogen 9 mg/dl (9-20); Calcium 6.5 mg/dl (8.4-10.2); Carbon Dioxide 32 mmol/L (22.0-30.0); Chloride 98 mmol/L (98-107); Creatinine Clearance Estimated 55 mL/min (50-200); Estimated Glomerular Filt Rate 112 ml/min (>60); GFR (African American) 136 ML/MIN (>60); Globulin 3.1 g/dL (1.3-3.2); Glucose 112 mg/dl (74-100); Potassium 4.1 mmoL/L (3.5-5.1); Sodium 137 mmol/L (136-145); Total Protein,Serum 7.3 g/dl (6.3-8.2)
[2024-05-20 09:37] LABS: Basophils % 0.7 % (0.1-2.0); Eosinophils # 0.4 K/mm3 (0.0-0.4); Eosinophils % 7.2 % (0.1-12.0); Hematocrit 34.4 % (42.0-52.0); Hemoglobin 11.3 g/dL (14.1-18.0); Lymphocytes # 1.3 K/mm3 (0.7-4.5); Lymphocytes % 23.8 % (10-50); Mean Corpuscular HGB Conc 32.9 g/dL (31.8-35.4); Mean Corpuscular Hemoglobin 31.8 pg (27.0-31.2); Mean Corpuscular Volume 96.6 fl (80-94); Mean Platelet Volume 7.7 fl (7.4-10.4); Monocytes # 0.5 K/mm3 (0.1-1.0); Monocytes % 8.5 % (1.7-9.3); Neutrophils # 3.2 K/mm3 (1.8-7.8); Neutrophils % 59.8 % (37.0-80.0); Platelet Count 267 K/mm3 (142-424); Red Blood Count 3.56 M/mm3 (4.60-6.20); Red Cell Distribution Width 14.4 % (11.5-17.5); White Blood Count 5.3 K/mm3 (4.8-10.8)
== END 2024-05-20 09:29 | disposition home or self-care (01) ==
LOC: RAD 08:56 → INF 12:36
PROVIDERS: PCP Internal Medicine Adolescent Medicine; Visit Provider Internal Medicine Medical Oncology
DX: C34.90 Malignant neoplasm of unspecified part of unspecified bronchus or lung (principal); C78.7 Secondary malignant neoplasm of liver and intrahepatic bile duct; Z79.899 Other long term (current) drug therapy; Z87.891 Personal history of nicotine dependence
CPT/HCPCS: 36591; 71260; 74177; 80053; 85025; J1642; Q9967

== ENCOUNTER 2024-05-25 09:49 | Outpatient (CLI) | payer MEDICARE, SELFPAY ==
[2024-05-25] MEDS: ONDANSETRON 4MG/2ML VIAL 8 MG (10:00)
[2024-05-25 10:30] VITALS: BP 177/84; PULSE 86; RESP 18; TEMP 36.7; O2SAT 99
[2024-05-25] MEDS: SODIUM CHLORIDE 0.9% IV (10:32)
[2024-05-25] MEDS: NIVOLUMAB IV (10:32)
[2024-05-25] MEDS: 0.9 % SODIUM CHLORIDE 50 ML 100 ML IV (10:33)
[2024-05-25] MEDS: SODIUM CHLORIDE 0.9% 10ML FLUSH SYRINGE 10 ML IV (11:15)
[2024-05-25 11:20] VITALS: BP 148/81; PULSE 94; RESP 18; O2SAT 99
== END 2024-05-25 11:20 | disposition home or self-care (01) ==
PROVIDERS: Visit Provider Internal Medicine Medical Oncology
DX: Z51.11 Encounter for antineoplastic chemotherapy (principal); C34.90 Malignant neoplasm of unspecified part of unspecified bronchus or lung; C78.7 Secondary malignant neoplasm of liver and intrahepatic bile duct; Z79.899 Other long term (current) drug therapy; Z87.891 Personal history of nicotine dependence
CPT/HCPCS: 96413; J1642; J2405; J9299

== ENCOUNTER 2024-06-10 13:44 | Inpatient (IN) | payer MEDICARE, SELFPAY ==
[2024-06-10] VITALS (17 sets, daily range): BP systolic 113–177; BP diastolic 64–99; PULSE 84–115; RESP 14–43; TEMP 36.6–36.9; O2SAT 96–100; BMI 17.2; BMI 16.7
--- NOTE | 2024-06-10 13:43 | ECG_ITS ---
APPROVED REPORT Exam: Resting ECG HR:112 bpm ECG Measurements Heart Rate 112 AXES GA 152 P 82 QRSd 98 QRS 85 QT 325 T 69 QTc 391 Conclusion Sinus tachycardia Peaked T waves versus hyperacute T waves concerning for ischemia versus hyperkalemia Electronically signed by : TAMI LOZADA, 06/10/2024 16:02:03
--- NOTE | 2024-06-10 14:01 | XR_ITS ---
FINAL REPORT CLINICAL HISTORY: soa cp COMPARISON: 01/23/2024 FINDINGS: SINGLE-VIEW CHEST The heart size is normal. The mediastinum is normal. The lungs are hyperinflated. Chest port tip terminates in the SVC. There is no pneumothorax. IMPRESSION: No acute cardiopulmonary process. Reviewed, Interpreted and Dictated by Kar Bowden MD Transcribed by Bre Gross Authenticated and [facility]
--- NOTE | 2024-06-10 14:01 | PC.NURSE ---
Called lab about a VBG on pt. Blood sent. CR
--- NOTE | 2024-06-10 14:02 | PC.NURSE ---
Dr. Ellsworth at [facility] for pt eval
[2024-06-10 14:08] LABS: Lactate Venous 1.2 mmol/L (0.4-2.0); VBG Base Excess 3.1 mmol/L (-2.4-2.3); VBG HCO3 29.6 mmol/L (23-30); VBG Oxygen Saturation 73.4 % (50-70); VBG PCO2 62.3 mmol/L (35-51); VBG PO2 42.1 mmol/L (28-40); VBG Total CO2 31.5 mmol/L (23-27)
[2024-06-10 14:09] LABS: Basophils % 0.4 % (0.1-2.0); Eosinophils # 0.2 K/mm3 (0.0-0.4); Eosinophils % 2.1 % (0.1-12.0); Hematocrit 38.6 % (42.0-52.0); Hemoglobin 12.6 g/dL (14.1-18.0); Lymphocytes # 0.8 K/mm3 (0.7-4.5); Lymphocytes % 7.3 % (10-50); Mean Corpuscular HGB Conc 32.8 g/dL (31.8-35.4); Mean Corpuscular Hemoglobin 31.8 pg (27.0-31.2); Mean Corpuscular Volume 97.1 fl (80-94); Mean Platelet Volume 7.4 fl (7.4-10.4); Monocytes # 0.8 K/mm3 (0.1-1.0); Neutrophils # 9.2 K/mm3 (1.8-7.8); Neutrophils % 83.2 % (37.0-80.0); Platelet Count 296 K/mm3 (142-424); Red Blood Count 3.97 M/mm3 (4.60-6.20); Red Cell Distribution Width 14.7 % (11.5-17.5)
--- NOTE | 2024-06-10 14:20 | PC.NURSE ---
Called [facility] about placing the pt on BiPap. RT states they are on their way. CR
[2024-06-10 14:27] LABS: Alanine Aminotransferase 16 U/L (12-78); Albumin Level 4.3 g/dl (3.5-5.0); Albumin/Globulin Ratio 1.3 (1.1-1.8); Alkaline Phosphatase 79 U/L (38-126); Anion Gap 10.6 mEq/L (5-15); Aspartate Amino Transferase 32 U/L (17-59); Bilirubin,Total 0.5 mg/dl (0.2-1.3); Blood Urea Nitrogen 8 mg/dl (9-20); Carbon Dioxide 35 mmol/L (22.0-30.0); Chloride 94 mmol/L (98-107); Creatinine Clearance Estimated 55 mL/min (50-200); Estimated Glomerular Filt Rate 134 ml/min (>60); GFR (African American) 163 ML/MIN (>60); Globulin 3.3 g/dL (1.3-3.2); Glucose 108 mg/dl (74-100); Potassium 3.6 mmoL/L (3.5-5.1); Sodium 136 mmol/L (136-145); Total Protein,Serum 7.6 g/dl (6.3-8.2)
--- NOTE | 2024-06-10 14:27 | PC.NURSE ---
PT PLACED ON BIPAP BY RESPIRATORY
[2024-06-10] MEDS: MAGNESIUM SULFATE IN WATER 2 GM/50 ML PIGGYBACK IV (14:35)
[2024-06-10] MEDS: METHYLPREDNISOLONE SOD SUCC 125MG VIAL 125 MG IV (14:35)
[2024-06-10 14:38] LABS: NT Pro Brain Natriuretic Pep. 282 pg/mL (0-125)
[2024-06-10 14:40] LABS: Troponin I 0.04 ng/ml (0.00-0.034)
[2024-06-10] MEDS: IPRATROPIUM/ALBUTEROL 3 ML NEB 9 ML IH (14:40)
--- NOTE | 2024-06-10 15:21 | CT_ITS ---
PROCEDURE INFORMATION: Exam: CTA Chest With Contrast Exam date and time: 06/10/2024 3:52 PM Age: 69 years old Clinical indication: Shortness of breath; Additional info: SOA, hypoxia, dimer TECHNIQUE: Imaging protocol: Computed tomographic angiography of the chest with contrast. Exam focused on the arteries. 3D rendering (Not supervised by radiologist): MIP and/or 3D reconstructed images were created by the technologist. Radiation optimization: All CT scans at this facility use at least one of these dose optimization techniques: automated exposure control; mA and/or kV adjustment per patient size (includes targeted exams where dose is matched to clinical indication); or iterative reconstruction. Contrast material: ISOVUE; Contrast volume: 70 ml; Contrast route: INTRAVENOUS (IV); COMPARISON: CT ANGIO CHEST PE PROTOCOL 01/31/2024 12:42 AM FINDINGS: Tubes, catheters and devices: Right subclavian infusion port in place. Pulmonary arteries: Normal. No pulmonary emboli. Aorta: Unremarkable. No aortic aneurysm. No aortic dissection. Lungs: Lungs are hyperexpanded with moderate changes of emphysema throughout both lungs. Stable scarring/atelectasis in perihilar region of the right upper lobe. Mild parenchymal opacity in the posterior aspect of the left upper lobe now exhibits an appearance suggesting residual scarring rather than solid lesion. Similar-appearing scarring noted in the right lower lobe. Stable calcified granuloma measuring 11 mm in the left lower lobe. No acute infiltrate. Pleural spaces: Unremarkable. No pneumothorax. No pleural effusion. Heart: Unremarkable. No cardiomegaly. No pericardial effusion. Lymph nodes: Unremarkable. No enlarged lymph nodes. Bones/joints: Mild degenerative disc changes throughout the thoracic spine. Osseous alignment is normal. No vertebral body compression or acute fracture. Soft tissues: Unremarkable. IMPRESSION: 1. No evidence of pulmonary embolus or other acute abnormality in the chest 2. Findings of scattered parenchymal scarring in both lungs. No suspicious pulmonary masses or nodules evident on the current study. COMMENTS: The presence of pulmonary emphysema on CT is an independent risk factor for lung cancer. In the absence of a history or active diagnosis of lung cancer, it is recommended that this patient with emphysema be evaluated for enrollment in a low dose CT lung cancer screening program.
--- NOTE | 2024-06-10 15:29 | ECG_ITS ---
APPROVED REPORT Exam: Resting ECG HR:94 bpm ECG Measurements Heart Rate 94 AXES MO 142 P 85 QRSd 98 QRS 86 QT 377 T 73 QTc 429 Conclusion SINUS RHYTHM WITH OCCASIONAL SUPRAVENTRICULAR PREMATURE COMPLEXES RIGHT ATRIAL ENLARGEMENT [0.3mV P-WAVE] ABNORMAL ECG Electronically signed by : AIYANA BURGOS, 06/10/2024 21:20:00
--- NOTE | 2024-06-10 15:41 | PC.NURSE ---
pt transported to ct scan, nonrebreather placed on pt for transport, MD delgado
--- NOTE | 2024-06-10 15:41 | ED_ITS ---
Discharge Plan Disposition Patient Disposition: Admitted Condition: Fair Clinical Impressions Clinical Impression: Acute exacerbation of chronic obstructive airways disease, Acute hypercapnic respiratory failure Discharge ED Provider: Macy Reyes HPI <Christopher Ellsworth MD - Last Filed: 06/10/24 15:47> General Chief Complaint: Shortness of Breath/Dyspnea Stated Complaint: Chest pain Time Seen by Provider: 06/10/24 14:00 Mode of Arrival: Wheelchair Source of Information: Patient Limitations: No Limitations Description of Symptoms (Recalled from ER Triage Doc. by RN): PT REPORTS INCREASED SHORTNESS OF BREATH FOR 2 DAYS, WEARS HOME O2 AT 3L/NC, CURRENTLY AT 5L. REPORTS HX OF LUNG CANCER, REPORTS CHEST PAIN INTERMITTENTLY , DENIES AT THIS TIME History of Present Illness HPI narrative: Please note that above description of symptoms, in this electronic medical record under categorization of recalled from ER triage doctor by RN are reflective of an initial nursing assessment, however, is not reflective of my full history and physical exam that was personally taken and clarified. Consequentially, this preceding description of symptoms, which may include the patient's categorized chief complaint in the EMR, do not reflect my personal clinical impression, and the ultimate description of history of present illness and patient stated complaints should be deferred to this section of the note. Unless stated otherwise or congruent with this section of the note, additional signs, symptoms, or incongruence should be interpreted as inaccurate with my clinical impression. Related Data Home Medications ?Medication ?Instructions ?Recorded ?Confirmed trazodone 150 mg tablet 150 mg PO DAILY sleep 07/03/22 05/25/24 fluticasone fur. 100 mcg-umeclid 1 inh inhalation DAILY Copd 01/05/23 05/25/24 62.5 mcg-vilant 25 mcg inhalat.powder (Trelegy Ellipta) lidocaine-prilocaine 2.5 %-2.5 % 2.5 g topical DIRECTED PRN NUMB 01/20/23 05/25/24 topical cream aspirin 325 mg tablet 325 mg PO DAILY Heart Disease 05/11/23 05/25/24 propranolol 10 mg tablet 10 mg PO BID 12/16/23 05/25/24 azelastine 137 mcg (0.1 %) nasal intranasal 04/19/24 05/25/24 spray Previous Rx's ?Medication ?Instructions ?Recorded ipratropium 0.5 mg-albuterol 3 mg 3 ml inhalation QID PRN shortness 12/31/23 (2.5 mg base)/3 mL nebulization of breath or wheezing 90 days #270 soln mL azithromycin 250 mg tablet 250 mg PO QMWF #45 tabs 02/03/24 albuterol sulfate 90 mcg/actuation 2 inh inhalation QID PRN shortness 05/31/24 aerosol inhaler of breath or wheezing 90 days #8.5 grams Allergies Allergy/AdvReac Type Severity Reaction Status Date / Time silver Allergy Severe Rash Verified 05/25/24 09:23 [From Tegaderm AG Mesh] Penicillins [PENICILLINS] Allergy Mild Verified 05/25/24 09:23 amitriptyline AdvReac Intermediate gi upset Verified 05/25/24 09:23 adhesive AdvReac Verified 05/25/24 09:23 hydrocodone AdvReac Verified 05/25/24 09:23 [facility] <Christopher Ellsworth MD - Last Filed: 06/10/24 15:47> [facility] Disclaimer: The information contained in this section may have been updated after the patient was seen, as this information can be updated by other users. Medical History Bilateral impacted cerumen Tinnitus Hearing loss Lung nodule Hilar lymphadenopathy Pneumonia Sleep apnea Emphysema/COPD Chronic cough Bronchitis Allergies History of anemia Lung collapse Nodule of right lung Tobacco abuse disorder Tobacco abuse counseling Small cell lung cancer Smoking greater than 30 pack years Chronic hypoxemic respiratory failure COPD (chronic obstructive pulmonary disease) Dyspnea on exertion On home O2 Sinus problem History of chemotherapy History of radiation therapy Personal history of arthritis History of lung disease Hyperlipemia Cancer small cell lung ca Asthma Essential hypertension COPD exacerbation Surgical History History of insertion of tunneled central venous catheter (CVC) with port History of colonoscopy Hx of cardiac catheterization Normal coronary arteries History of sinus surgery Family History Other Cancer Diabetes Social History (Updated 06/10/24 @ 18:54 by Danuta Bueno RN) Smoking Status: Current every day smoker tobacco type: cigarettes packs per day: 1 years smoked: 50 alcohol intake: current alcohol intake frequency: holidays/special occasions only substance use type: denies use current occupational status: retired and disabled Travel in the last 8 weeks: None household members: spouse housing: house caffeine: Yes <Christopher Ellsworth MD - Last Filed: 06/10/24 15:47> ROS Obtained: Yes All systems reviewed & no additional complaints except as documented Physical Exam <Christopher Ellsworth MD - Last Filed: 06/10/24 15:47> General General appearance: alert and in distress Neck Neck exam: Present trachea midline Chest Chest inspection: Present normal inspection and symmetric chest wall rise Respiratory Respiratory exam: Present respiratory distress, wheezes, accessory muscle use and prolonged expiratory phase; Absent stridor Cardiovascular Cardiovascular exam: Present normal rhythm, tachycardia and other (Pulses equal and symmetric in upper and lower extremities) Extremities Exam Extremities exam: Absent edema Neurological Exam Neurological exam: Present alert, oriented X3 and CN II-XII intact Skin Skin exam: Present warm and dry; Absent cyanosis, diaphoresis or pallor HEART Score <Christopher Ellsworth MD - Last Filed: 06/10/24 15:47> HEART Score HEART Score assessment performed?: Yes HEART Score: 7 <Macy Reyes DO - Last Filed: 06/10/24 20:33> HEART Score HEART Score: 7 Critical Care <Christopher Ellsworth MD - Last Filed: 06/10/24 15:47> Critical Care Time Critical Care Time: Yes (Respiratory) Attestation: On 06/10/24, the high probability of a clinically significant, sudden or life threatening deterioration of the following system(s) required my full and direct attention, intervention and personal management. The time I documented below is in addition to time spent performing reported procedures but includes the following listed in this critical care notation. Total Time Total Critical Care Time: 45 Medical Decision Making <Christopher Ellsworth MD - Last Filed: 06/10/24 15:47> Medical Records Medical records reviewed: Yes I reviewed the patient's medical records. [place] Inquiry Pt receiving controlled substance: No [place] was queried for this patient: No Vital Signs Vital Signs: 06/10/24 13:45 06/10/24 14:00 06/10/24 14:30 Temperature 98.4 F Temperature Source Oral Pulse Rate 109 H 105 H Pulse Rate [Apical] 115 H Respiratory Rate 30 H 27 H 23 Blood Pressure 144/89 H 126/80 Blood Pressure [Right Arm] 177/99 H Blood Pressure Mean [Right Arm] 125 Blood Pressure Source Blood Pressure Source [Right Arm] Automatic Cuff Blood Pressure Position Blood Pressure Position [Right Arm] Standing 02 Sat by Pulse Oximetry 96 100 100 Oxygen Delivery Method Nasal Cannula Nasal Cannula BiPAP Oxygen Flow Rate (LPM) 3 06/10/24 14:40 06/10/24 14:40 06/10/24 15:00 Temperature Temperature Source Pulse Rate 106 H 106 H 104 H Pulse Rate [Apical] Respiratory Rate 21 Blood Pressure 113/78 Blood Pressure [Right Arm] Blood Pressure Mean [Right Arm] Blood Pressure Source Blood Pressure Source [Right Arm] Blood Pressure Position Blood Pressure Position [Right Arm] 02 Sat by Pulse Oximetry 98 Oxygen Delivery Method BiPAP Oxygen Flow Rate (LPM) 06/10/24 15:30 06/10/24 16:30 06/10/24 17:00 Temperature Temperature Source Pulse Rate 94 H 96 H 92 H Pulse Rate [Apical] Respiratory Rate 20 22 26 H Blood Pressure 119/77 171/89 H 125/64 Blood Pressure [Right Arm] Blood Pressure Mean [Right Arm] Blood Pressure Source Blood Pressure Source [Right Arm] Blood Pressure Position Blood Pressure Position [Right Arm] 02 Sat by Pulse Oximetry 100 100 98 Oxygen Delivery Method BiPAP BiPAP Nasal Cannula Oxygen Flow Rate (LPM) 4 06/10/24 17:30 06/10/24 17:51 06/10/24 18:00 Temperature 98.4 F 98 F Temperature Source Oral Oral Pulse Rate 110 H 104 H Pulse Rate [Apical] 99 H Respiratory Rate 14 18 34 H Blood Pressure 121/74 121/74 Blood Pressure [Right Arm] 166/90 H Blood Pressure Mean [Right Arm] 115 Blood Pressure Source Automatic Cuff Blood Pressure Source [Right Arm] Automatic Cuff Blood Pressure Position Sitting Blood Pressure Position [Right Arm] 02 Sat by Pulse Oximetry 99 100 Oxygen Delivery Method Nasal Cannula Nasal Cannula Nasal Cannula Oxygen Flow Rate (LPM) 4 3 Lab Data Labs: Lab Results 06/10/24 13:55: WBC 11.0 H, RBC 3.97 L, Hgb 12.6 L, Hct 38.6 L, MCV 97.1 H, MCH 31.8 H, MCHC 32.8, RDW 14.7, Plt Count 296, MPV 7.4, Neut % (Auto) 83.2 H, Lymph % (Auto) 7.3 L, Holt % (Auto) 7.0, Eos % (Auto) 2.1, Baso % (Auto) 0.4, Neut # (Auto) 9.2 H, Lymph # (Auto) 0.8, Holt # (Auto) 0.8, Eos # (Auto) 0.2, Baso # (Auto) 0.0, D-Dimer 0.80 H, Sodium 136, Potassium 3.6, Chloride 94 L, Carbon Dioxide 35 H, Anion Gap 10.6, BUN 8 L, Creatinine 0.60 L, Estimated Creat Clear 55, Estimated GFR 134, Est GFR ( Amer) 163, Glucose 108 H, Calcium 6.0 L, Total Bilirubin 0.5, AST 32, ALT 16, Alkaline Phosphatase 79, Troponin I 0.04 H, NT-Pro-B Natriuret Pep 282 H, Total Protein 7.6, Albumin 4.3, Globulin 3.3 H, Albumin/Globulin Ratio 1.3 06/10/24 14:00: VBG pH 7.30 L, VBG pCO2 62.3 H, VBG pO2 42.1 H, VBG HCO3 29.6, V BG Total CO2 31.5 H, VBG O2 Saturation 73.4 H, VBG Base Excess 3.1 H, VBG Lactic Acid 1.2 06/10/24 13:55 06/10/24 13:55 Response Orders (Tests/Meds): ED MEDICATIONS Generic Name Dose Route Start Last Admin Trade Name Freq PRN Reason Stop Dose Admin Albuterol/Ipratropium 3 ml 06/10/24 18:00 06/10/24 19:20 Ipratropium/Albuterol 3 Ml [facility] 07/10/24 17:59 3 ml Q4RT DOREEN Administration Aspirin 325 mg 06/11/24 09:00 Aspirin 325mg Tablet PO 07/11/24 08:59 DAILY DOREEN Budesonide 0.5 mg 06/10/24 18:00 06/10/24 19:20 Budesonide 0.5mg/2ml [facility] 07/10/24 17:59 0.5 mg BIDRT DOREEN Administration Fluticasone/Umeclidinium/Vilanterol 1 puff 06/11/24 09:00 Fluticasone/Umeclidin/Vilanter 100/62.5/25mcg Inhaler 07/11/24 08:59 DAILY DOREEN Methylprednisolone Sodium Succinate 40 mg 06/11/24 09:00 Methylprednisolone Sod Succ 40mg Vial IV 07/11/24 08:59 BID DOREEN Nicotine 21 mg 06/10/24 17:22 Nicotine 21mg/24hr Patch TD 07/10/24 17:21 DAILYP PRN Nicotine Cravings Non-Formulary Medication 10 mg 06/10/24 21:00 06/10/24 20:27 Propranolol PO 07/10/24 20:59 10 mg BID DOREEN Administration Non-Formulary Medication 150 mg 06/11/24 09:00 Trazodone PO 07/11/24 08:59 DAILY DOREEN Oxymetazoline HCl 1 ml 06/10/24 19:08 Oxymetazoline Nasal Lowber 0.05% 15ml NS 07/10/24 19:07 BIDP PRN Nasal Congestion Discontinued Medications Generic Name Dose Route Start Last Admin Trade Name Freq PRN Reason Stop Dose Admin Albuterol/Ipratropium 9 ml 06/10/24 14:19 06/10/24 14:40 Ipratropium/Albuterol 3 Ml Neb 06/10/24 14:20 9 ml ONCE ONE Administration Magnesium Sulfate 2 gm in 50 mls @ 50 mls/hr 06/10/24 14:19 06/10/24 14:35 Magnesium Sulfate 2gm/50ml Premix IV 06/10/24 15:18 50 mls/hr ONCE ONE Administration Ceftriaxone Sodium 2 gm/ 100 mls @ 200 mls/hr 06/10/24 17:22 06/10/24 17:28 Sodium Chloride IV 06/10/24 17:51 200 mls/hr ONCE ONE Administration Azithromycin 500 mg/ Sodium 250 mls @ 250 mls/hr 06/10/24 17:22 06/10/24 18:36 Chloride IV 06/10/24 17:23 250 mls/hr ONCE ONE Administration Calcium Gluconate/Sodium Chloride 2 gm in 100 mls @ 50 mls/hr 06/10/24 17:25 06/10/24 18:35 Calcium Gluconate 2,000mg/100ml Nacl Premix IV 06/10/24 19:24 50 mls/hr ONCE ONE Administration Iopamidol 70 ml 06/10/24 16:19 06/10/24 16:20 Iopamidol-370 (76%);100ml Bottle IV 06/10/24 16:20 70 ml ONCE ONE Administration Methylprednisolone Sodium Succinate 125 mg 06/10/24 14:19 06/10/24 14:35 Methylprednisolone Sod Succ 125mg Vial IV 06/10/24 14:20 125 mg ONCE ONE Administration Sodium Chloride 10 ml 06/10/24 16:19 06/10/24 16:20 Sodium Chloride 0.9% 10ml Syr (Rad Only) IV 06/10/24 16:20 10 ml ONCE ONE Administration Sodium Chloride 50 ml 06/10/24 16:19 06/10/24 16:20 0.9 % Sodium Chloride 50 Ml Vial IV 06/10/24 16:20 50 ml ONCE ONE Administration ORDERS Category Date Time Status CT angio chest PE protocol Stat Cat Scan 06/10/24 15:21 Completed CXR --portable [XR chest portable] Stat Exams 06/10/24 14:01 Taken CBC w/Auto Diff [Complete Blood Count Auto Diff] Stat Lab 06/10/24 13:55 Completed CMP [Comprehensive Metabolic Panel] Stat Lab 06/10/24 13:55 Completed Complete Blood Count Auto Diff AMLAB Lab 06/11/24 06:00 Ordered Comprehensive Metabolic Panel AMLAB Lab 06/11/24 06:00 Ordered D-Dimer Stat Lab 06/10/24 13:55 Completed Magnesium AMLAB Lab 06/11/24 06:00 Ordered NT Pro Brain Natriuretic Pep. Stat Lab 06/10/24 13:55 Completed Trop I [Troponin I] Stat Lab 06/10/24 13:55 Completed Troponin I Q3H Lab 06/10/24 18:34 Completed Troponin I Q3H Lab 06/10/24 20:15 Ordered VBG [Venous Blood Gas] Stat RT 06/10/24 14:00 Completed MDM Narrative Medical Decision Narrative: 69-year-old male history of hypertension, hyperlipidemia, COPD on 3 L nasal cannula still smoking 1/2 pack/day, lung cancer presenting with difficulty breathing. Patient states that he was seen by his family doctor about a week prior to this, started on antibiotic and prednisone. Finished the antibiotic and prednisone 3 days prior to this visit, was feeling better. Since that time his gotten worse again. Cough productive of yellow sputum, shortness of breath with minimal exertion, intermittent chest pains that are left-sided, do not radiate. No fevers or chills, vomiting, recent sick contacts, or any other concerns. Has needed increased oxygen requirement at home. History was obtained via conversation with patient and family. On arrival, patient hemodynamically stable, alert, oriented x4, appropriate, GCS 15, moving all extremities spontaneously, pupils equal and reactive to light. Full physical exam performed and significant for uncomfortable maturing male in respiratory distress. Diffuse bilateral wheezes, prolonged expiratory phase, breathing through pursed lips, tachypnea around 40 breaths/min. Patient's cardiac exam within normal limits without lower extremity swelling. No murmurs, gallops, rubs. No focal breath sounds, pulses are equal and symmetric in upper and lower extremities. Differential includes COPD exacerbation, pneumonia, PE, pneumothorax, ACS, KS, CHF, among others. Patient was given DuoNebs, BiPAP, for symptomatic management and correction of underlying abnormalities. Patient placed on continuous cardiac monitoring and continuous pulse ox with initial blood pressure 119/77, heart rate 94, saturation 88% on 4 L nasal cannula. Independent interpretation of EKG shows minus tachycardi 112 beats a minute without ST or T wave changes concern for acute ischemia, but patient does have peaked T waves concerning for hyperacute versus hyperkalemia. Repeat EKG sinus rhythm 94 beats a minute without ST or T wave changes concerning for acute schema. T waves appear similar, no dynamic change. Workup independently interpreted and significant for leukocytosis 11 with neutrophilia, patient also has pH 7.3, CO2 elevated at 62, bicarb normal concern for respiratory acidosis. Lactate negative. Kidney function normal, nonactionable chemistry. Patient's initial BNP 282, troponin 0.04. On independent interpretation of imaging, no acute cardiopulmonary disease on chest x-ray. See radiology read for full review of final results. Given elevated dimer and tachypnea, tachycardia, hypoxemia, CT PE was ordered. On reevaluation prior to CT, patient's respiratory rate around 20 down from around 40, states it is a little easier for him to breathe after meds. Prior to CT being performed, care handed off to oncoming physician. 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 Electronic clay mine cutting machine operator of the spoken language may permit errors. Although I have reviewed the note, some errors may still exist. <Macy Reyes, DO - Last Filed: 06/10/24 20:33> Vital Signs Vital Signs: 06/10/24 13:45 06/10/24 14:00 06/10/24 14:30 Temperature 98.4 F Temperature Source Oral Pulse Rate 109 H 105 H Pulse Rate [Apical] 115 H Respiratory Rate 30 H 27 H 23 Blood Pressure 144/89 H 126/80 Blood Pressure [Right Arm] 177/99 H Blood Pressure Mean [Right Arm] 125 Blood Pressure Source Blood Pressure Source [Right Arm] Automatic Cuff Blood Pressure Position Blood Pressure Position [Right Arm] Standing 02 Sat by Pulse Oximetry 96 100 100 Oxygen Delivery Method Nasal Cannula Nasal Cannula BiPAP Oxygen Flow Rate (LPM) 3 06/10/24 14:40 06/10/24 14:40 06/10/24 15:00 Temperature Temperature Source Pulse Rate 106 H 106 H 104 H Pulse Rate [Apical] Respiratory Rate 21 Blood Pressure 113/78 Blood Pressure [Right Arm] Blood Pressure Mean [Right Arm] Blood Pressure Source Blood Pressure Source [Right Arm] Blood Pressure Position Blood Pressure Position [Right Arm] 02 Sat by Pulse Oximetry 98 Oxygen Delivery Method BiPAP Oxygen Flow Rate (LPM) 06/10/24 15:30 06/10/24 16:30 06/10/24 17:00 Temperature Temperature Source Pulse Rate 94 H 96 H 92 H Pulse Rate [Apical] Respiratory Rate 20 22 26 H Blood Pressure 119/77 171/89 H 125/64 Blood Pressure [Right Arm] Blood Pressure Mean [Right Arm] Blood Pressure Source Blood Pressure Source [Right Arm] Blood Pressure Position Blood Pressure Position [Right Arm] 02 Sat by Pulse Oximetry 100 100 98 Oxygen Delivery Method BiPAP BiPAP Nasal Cannula Oxygen Flow Rate (LPM) 4 06/10/24 17:30 06/10/24 17:51 06/10/24 18:00 Temperature 98.4 F 98 F Temperature Source Oral Oral Pulse Rate 110 H 104 H Pulse Rate [Apical] 99 H Respiratory Rate 14 18 34 H Blood Pressure 121/74 121/74 Blood Pressure [Right Arm] 166/90 H Blood Pressure Mean [Right Arm] 115 Blood Pressure Source Automatic Cuff Blood Pressure Source [Right Arm] Automatic Cuff Blood Pressure Position Sitting Blood Pressure Position [Right Arm] 02 Sat by Pulse Oximetry 99 100 Oxygen Delivery Method Nasal Cannula Nasal Cannula Nasal Cannula Oxygen Flow Rate (LPM) 4 3 Lab Data Labs: Lab Results 06/10/24 13:55: WBC 11.0 H, RBC 3.97 L, Hgb 12.6 L, Hct 38.6 L, MCV 97.1 H, MCH 31.8 H, MCHC 32.8, RDW 14.7, Plt Count 296, MPV 7.4, Neut % (Auto) 83.2 H, Lymph % (Auto) 7.3 L, Holt % (Auto) 7.0, Eos % (Auto) 2.1, Baso % (Auto) 0.4, Neut # (Auto) 9.2 H, Lymph # (Auto) 0.8, Holt # (Auto) 0.8, Eos # (Auto) 0.2, Baso # (Auto) 0.0, D-Dimer 0.80 H, Sodium 136, Potassium 3.6, Chloride 94 L, Carbon Dioxide 35 H, Anion Gap 10.6, BUN 8 L, Creatinine 0.60 L, Estimated Creat Clear 55, Estimated GFR 134, Est GFR ( Amer) 163, Glucose 108 H, Calcium 6.0 L, Total Bilirubin 0.5, AST 32, ALT 16, Alkaline Phosphatase 79, Troponin I 0.04 H, NT-Pro-B Natriuret Pep 282 H, Total Protein 7.6, Albumin 4.3, Globulin 3.3 H, Albumin/Globulin Ratio 1.3 06/10/24 14:00: VBG pH 7.30 L, VBG pCO2 62.3 H, VBG pO2 42.1 H, VBG HCO3 29.6, V BG Total CO2 31.5 H, VBG O2 Saturation 73.4 H, VBG Base Excess 3.1 H, VBG Lactic Acid 1.2 Response Orders (Tests/Meds): ED MEDICATIONS Generic Name Dose Route Start Last Admin Trade Name Freq PRN Reason Stop Dose Admin Albuterol/Ipratropium 3 ml 06/10/24 18:00 06/10/24 19:20 Ipratropium/Albuterol 3 Ml [facility] 07/10/24 17:59 3 ml Q4RT DOREEN Administration Aspirin 325 mg 06/11/24 09:00 Aspirin 325mg Tablet PO 07/11/24 08:59 DAILY [facility] Budesonide 0.5 mg 06/10/24 18:00 06/10/24 19:20 Budesonide 0.5mg/2ml [facility] 07/10/24 17:59 0.5 mg BIDRT DOREEN Administration Fluticasone/Umeclidinium/Vilanterol 1 puff 06/11/24 09:00 Fluticasone/Umeclidin/Vilanter 100/62.5/25mcg Inhaler 07/11/24 08:59 DAILY DOREEN Methylprednisolone Sodium Succinate 40 mg 06/11/24 09:00 Methylprednisolone Sod Succ 40mg Vial IV 07/11/24 08:59 BID DOREEN Nicotine 21 mg 06/10/24 17:22 Nicotine 21mg/24hr Patch TD 07/10/24 17:21 DAILYP PRN Nicotine Cravings Non-Formulary Medication 10 mg 06/10/24 21:00 06/10/24 20:27 Propranolol PO 07/10/24 20:59 10 mg BID DOREEN Administration Non-Formulary Medication 150 mg 06/11/24 09:00 Trazodone PO 07/11/24 08:59 DAILY DOREEN Oxymetazoline HCl 1 ml 06/10/24 19:08 Oxymetazoline Nasal Lowber 0.05% 15ml NS 07/10/24 19:07 BIDP PRN Nasal Congestion Discontinued Medications Generic Name Dose Route Start Last Admin Trade Name Freq PRN Reason Stop Dose Admin Albuterol/Ipratropium 9 ml 06/10/24 14:19 06/10/24 14:40 Ipratropium/Albuterol 3 Ml [facility] 06/10/24 14:20 9 ml ONCE ONE Administration Magnesium Sulfate 2 gm in 50 mls @ 50 mls/hr 06/10/24 14:19 06/10/24 14:35 Magnesium Sulfate 2gm/50ml Premix IV 06/10/24 15:18 50 mls/hr ONCE ONE Administration Ceftriaxone Sodium 2 gm/ 100 mls @ 200 mls/hr 06/10/24 17:22 06/10/24 17:28 Sodium Chloride IV 06/10/24 17:51 200 mls/hr ONCE ONE Administration Azithromycin 500 mg/ Sodium 250 mls @ 250 mls/hr 06/10/24 17:22 06/10/24 18:36 Chloride IV 06/10/24 17:23 250 mls/hr ONCE ONE Administration Calcium Gluconate/Sodium Chloride 2 gm in 100 mls @ 50 mls/hr 06/10/24 17:25 06/10/24 18:35 Calcium Gluconate 2,000mg/100ml Nacl Premix IV 06/10/24 19:24 50 mls/hr ONCE ONE Administration Iopamidol 70 ml 06/10/24 16:19 06/10/24 16:20 Iopamidol-370 (76%);100ml Bottle IV 06/10/24 16:20 70 ml ONCE ONE Administration Methylprednisolone Sodium Succinate 125 mg 06/10/24 14:19 06/10/24 14:35 Methylprednisolone Sod Succ 125mg Vial IV 06/10/24 14:20 125 mg ONCE ONE Administration Sodium Chloride 10 ml 06/10/24 16:19 06/10/24 16:20 Sodium Chloride 0.9% 10ml Syr (Rad Only) IV 06/10/24 16:20 10 ml ONCE ONE Administration Sodium Chloride 50 ml 06/10/24 16:19 06/10/24 16:20 0.9 % Sodium Chloride 50 Ml Vial IV 06/10/24 16:20 50 ml ONCE ONE Administration ORDERS Category Date Time Status CT angio chest PE protocol Stat Cat Scan 06/10/24 15:21 Completed CXR --portable [XR chest portable] Stat Exams 06/10/24 14:01 Taken CBC w/Auto Diff [Complete Blood Count Auto Diff] Stat Lab 06/10/24 13:55 Completed CMP [Comprehensive Metabolic Panel] Stat Lab 06/10/24 13:55 Completed Complete Blood Count Auto Diff AMLAB Lab 06/11/24 06:00 Ordered Comprehensive Metabolic Panel AMLAB Lab 06/11/24 06:00 Ordered D-Dimer Stat Lab 06/10/24 13:55 Completed Magnesium AMLAB Lab 06/11/24 06:00 Ordered NT Pro Brain Natriuretic Pep. Stat Lab 06/10/24 13:55 Completed Trop I [Troponin I] Stat Lab 06/10/24 13:55 Completed Troponin I Q3H Lab 06/10/24 18:34 Completed Troponin I Q3H Lab 06/10/24 20:15 Ordered VBG [Venous Blood Gas] Stat RT 06/10/24 14:00 Completed MDM Narrative Medical Decision Narrative: 69-year-old male history of hypertension, hyperlipidemia, COPD on 3 L nasal cannula still smoking 1/2 pack/day, lung cancer presenting with difficulty breathing. Patient states that he was seen by his family doctor about a week prior to this, started on antibiotic and prednisone. Finished the antibiotic and prednisone 3 days prior to this visit, was feeling better. Since that time his gotten worse again. Cough productive of yellow sputum, shortness of breath with minimal exertion, intermittent chest pains that are left-sided, do not radiate. No fevers or chills, vomiting, recent sick contacts, or any other concerns. Has needed increased oxygen requirement at home. History was obtained via conversation with patient and family. On arrival, patient hemodynamically stable, alert, oriented x4, appropriate, GCS 15, moving all extremities spontaneously, pupils equal and reactive to light. Full physical exam performed and significant for uncomfortable maturing male in respiratory distress. Diffuse bilateral wheezes, prolonged expiratory phase, breathing through pursed lips, tachypnea around 40 breaths/min. Patient's cardiac exam within normal limits without lower extremity swelling. No murmurs, gallops, rubs. No focal breath sounds, pulses are equal and symmetric in upper and lower extremities. Differential includes COPD exacerbation, pneumonia, PE, pneumothorax, ACS, KS, CHF, among others. Patient was given DuoNebs, BiPAP, for symptomatic management and correction of underlying abnormalities. Patient placed on continuous cardiac monitoring and continuous pulse ox with initial blood pressure 119/77, heart rate 94, saturation 88% on 4 L nasal cannula. Independent interpretation of EKG shows minus tachycardi 112 beats a minute without ST or T wave changes concern for acute ischemia, but patient does have peaked T waves concerning for hyperacute versus hyperkalemia. Repeat EKG sinus rhythm 94 beats a minute without ST or T wave changes concerning for acute schema. T waves appear similar, no dynamic change. Workup independently interpreted and significant for leukocytosis 11 with neutrophilia, patient also has pH 7.3, CO2 elevated at 62, bicarb normal concern for respiratory acidosis. Lactate negative. Kidney function normal, nonactionable chemistry. Patient's initial BNP 282, troponin 0.04. On independent interpretation of imaging, no acute cardiopulmonary disease on chest x-ray. See radiology read for full review of final results. Given elevated dimer and tachypnea, tachycardia, hypoxemia, CT PE was ordered. On reevaluation prior to CT, patient's respiratory rate around 20 down from around 40, states it is a little easier for him to breathe after meds. Prior to CT being performed, care handed off to oncoming physician. 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 Electronic clay mine cutting machine operator of the spoken language may permit errors. Although I have reviewed the note, some errors may still exist. DO Eric: On my assessment of the patient, he had returned from CT scan and refused to wear BiPAP. He is saturating well on 4 L nasal cannula but still has increased work of breathing. This is up from his baseline of [address] PE does not demonstrate any large PE or large focal consolidation. I had an interactive discussion with the hospitalist who admitted the patient for COPD exacerbation and acute on chronic respiratory failure.
[2024-06-10] MEDS: SODIUM CHLORIDE 0.9% 10ML SYR (RAD ONLY) 10 ML IV (16:20)
[2024-06-10] MEDS: 0.9 % SODIUM CHLORIDE 50 ML VIAL IV (16:20)
[2024-06-10] MEDS: IOPAMIDOL-370 (76%);100ML BOTTLE 70 ML IV (16:20)
--- NOTE | 2024-06-10 16:35 | PC.NURSE ---
Pt requested to be taken off bipap and to use a NC. Pt placed on 4lpm NC. Dr. Reyes made aware.
--- NOTE | 2024-06-10 17:20 | PC.NURSE ---
dr young speaking with dr villalba
--- NOTE | 2024-06-10 17:24 | PC.NURSE ---
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
[2024-06-10] MEDS: CEFTRIAXONE SODIUM 2 GM in 0.9 % SODIUM CHLORIDE 100 ML IV (17:28)
--- NOTE | 2024-06-10 17:42 | PC.NURSE ---
PT MEDICATED PER EMAR, 2 SANDWICHES PROVIDED FOR PT
--- NOTE | 2024-06-10 18:13 | PC.NURSE ---
arrived by w/c from ED
[2024-06-10] MEDS: CALCIUM GLUC IN NACL, ISO-OSM 2 GM/100 ML BAG IV (18:35)
[2024-06-10] MEDS: AZITHROMYCIN 500 MG in 0.9 % SODIUM CHLORIDE 250 ML 250 MG IV (18:36)
[2024-06-10 19:04] LABS: Troponin I 0.04 ng/ml (0.00-0.034)
[2024-06-10 19:06] LABS: Adenovirus,PCR Not Detected (NotDetected); Bordetella Pertussis Not Detected (NotDetected); Chlamydophila Pneumoniae, PCR Not Detected (NotDetected); Coronavirus 19, PCR Not Detected (NotDetected); Coronavirus 229E Not Detected (NotDetected); Coronavirus NL63 Not Detected (NotDetected); Coronavirus OC43 Not Detected (NotDetected); Coronovirus HKU1,PCR Not Detected (NotDetected); Human Metapneumovirus Not Detected (NotDetected); Influenza A, PCR Not Detected (NotDetected); Influenza AH1, 2009 Not Detected (NotDetected); Influenza AH1, PCR Not Detected (NotDetected); Influenza AH3,PCR Not Detected (NotDetected); Influenza B, PCR Not Detected (NotDetected); Mycoplasma Pneumoniae, PCR Not Detected (NotDetected); Parainfluenza 1, PCR Not Detected (NotDetected); Parainfluenza 2, PCR Not Detected (NotDetected); Parainfluenza 3, PCR Not Detected (NotDetected); Parainfluenza 4, PCR Not Detected (NotDetected); Respiratory Syncytial Virus Not Detected (NotDetected); Rhinovirus/Enterovirus Not Detected (NotDetected)
--- NOTE | 2024-06-10 19:07 | EXP.HP ---
History of Present Illness *Admission Date: 06/10/24 *Reason for visit:: Shortness of breath *History of present illness: Mr. Madera is a 69-year-old male with history of hypertension, hyperlipidemia, COPD, chronic respiratory failure, lung cancer. Presented to the ER because of worsening shortness of breath. States has had increased coughing for the past few days. Saw his primary care earlier this week and was started on antibiotics and steroids but symptoms have continued to progress. Denies any fever but has had some chills. Grandkids have been sick. Continues to smoke daily. On baseline 3 L oxygen. On arrival to the ER, found to be hypoxic necessitating BiPAP due to hypercapnia. Patient started on antibiotics, steroids, breathing treatments. Continues to be in respiratory distress. Chest imaging obtained with no focal consolidation, concern for COPD exacerbation with acute hypoxemic respiratory failure. Patient denies nausea, vomiting, confusion or syncope. Hypertensive and tachycardic. Alert and oriented x 4. Medicine consulted for admission. Arrival to the floor, patient still in distress but showing improvement compared to presentation per his at bedside. Does not want to wear the BiPAP unless he has to. When asked if he would want to be intubated, he states that he does not want intubation. Interested in nicotine patch. [facility] Disclaimer: The information contained in this section may have been updated after the patient was seen, as this information can be updated by other users. Medical History Bilateral impacted cerumen Tinnitus Hearing loss Lung nodule Hilar lymphadenopathy Pneumonia Sleep apnea Emphysema/COPD Chronic cough Bronchitis Allergies History of anemia Lung collapse Nodule of right lung Tobacco abuse disorder Tobacco abuse counseling Small cell lung cancer Smoking greater than 30 pack years Chronic hypoxemic respiratory failure COPD (chronic obstructive pulmonary disease) Dyspnea on exertion On home O2 Sinus problem History of chemotherapy History of radiation therapy Personal history of arthritis History of lung disease Hyperlipemia Cancer Asthma Essential hypertension COPD exacerbation Surgical History History of insertion of tunneled central venous catheter (CVC) with port History of colonoscopy Hx of cardiac catheterization Normal coronary arteries History of sinus surgery Family History Other Cancer Diabetes Social History Smoking Status: Current every day smoker tobacco type: cigarettes packs per day: 1 years smoked: 50 alcohol intake: current alcohol intake frequency: holidays/special occasions only substance use type: denies use current occupational status: retired and disabled Travel in the last 8 weeks: None household members: spouse housing: house caffeine: Yes Review of Systems Review of Systems Review of systems (narrative): 14 point review of systems performed, pertinent positives and negatives as per [facility] Meds Home Medications and Allergies Home Medications ?Medication ?Instructions ?Recorded ?Confirmed ?Type trazodone 150 mg tablet 150 mg PO DAILY sleep 07/03/22 05/25/24 History fluticasone fur. 100 mcg-umeclid 1 inh inhalation DAILY Copd 01/05/23 05/25/24 History 62.5 mcg-vilant 25 mcg inhalat.powder (Trelegy Ellipta) lidocaine-prilocaine 2.5 %-2.5 % 2.5 g topical DIRECTED PRN NUMB 01/20/23 05/25/24 History topical cream aspirin 325 mg tablet 325 mg PO DAILY Heart Disease 05/11/23 05/25/24 History propranolol 10 mg tablet 10 mg PO BID 12/16/23 05/25/24 History ipratropium 0.5 mg-albuterol 3 mg 3 ml inhalation QID PRN shortness 12/31/23 05/25/24 Rx (2.5 mg base)/3 mL nebulization of breath or wheezing 90 days #270 soln mL azithromycin 250 mg tablet 250 mg PO QMWF #45 tabs 02/03/24 05/25/24 Rx azelastine 137 mcg (0.1 %) nasal intranasal 04/19/24 05/25/24 History spray albuterol sulfate 90 mcg/actuation 2 inh inhalation QID PRN shortness 05/31/24 Rx aerosol inhaler of breath or wheezing 90 days #8.5 grams New Prescriptions to Start Prescriptions: Allergies Allergy/AdvReac Type Severity Reaction Status Date / Time silver Allergy Severe Rash Verified 05/25/24 09:23 [From Tegaderm AG Mesh] Penicillins [PENICILLINS] Allergy Mild Verified 05/25/24 09:23 amitriptyline AdvReac Intermediate gi upset Verified 05/25/24 09:23 adhesive AdvReac Verified 05/25/24 09:23 hydrocodone AdvReac Verified 05/25/24 09:23 Exam Data for Last 24 hours Vital signs and Labs for Last 24 Hours: Temp Pulse Resp BP Pulse Ox O2 Del Method O2 Flow Rate 98 F 99 H 34 H 166/90 H 100 Nasal Cannula 3 06/10/24 18:00 06/10/24 18:00 06/10/24 18:00 06/10/24 18:00 06/10/24 18:00 06/10/24 18:56 06/10/24 18:56 FiO2 40 06/10/24 14:57 Laboratory Results - last 24 hr 06/10/24 13:55: WBC 11.0 H, RBC 3.97 L, Hgb 12.6 L, Hct 38.6 L, MCV 97.1 H, MCH 31.8 H, MCHC 32.8, RDW 14.7, Plt Count 296, MPV 7.4, Neut % (Auto) 83.2 H, Lymph % (Auto) 7.3 L, [place] % (Auto) 7.0, Eos % (Auto) 2.1, Baso % (Auto) 0.4, Neut # (Auto) 9.2 H, Lymph # (Auto) 0.8, [place] # (Auto) 0.8, Eos # (Auto) 0.2, Baso # (Auto) 0.0, D-Dimer 0.80 H, Sodium 136, Potassium 3.6, Chloride 94 L, Carbon Dioxide 35 H, Anion Gap 10.6, BUN 8 L, Creatinine 0.60 L, Estimated Creat Clear 55, Estimated GFR 134, Est GFR ( Amer) 163, Glucose 108 H, Calcium 6.0 L, Total Bilirubin 0.5, AST 32, ALT 16, Alkaline Phosphatase 79, Troponin I 0.04 H, NT-Pro-B Natriuret Pep 282 H, Total Protein 7.6, Albumin 4.3, Globulin 3.3 H, Albumin/Globulin Ratio 1.3 06/10/24 14:00: VBG pH 7.30 L, VBG pCO2 62.3 H, VBG pO2 42.1 H, VBG HCO3 29.6, VBG Total CO2 31.5 H, VBG O2 Saturation 73.4 H, VBG Base Excess 3.1 H, VBG Lactic Acid 1.2 06/10/24 18:34: Troponin I 0.04 H I & O for Last 24 hours: Intake & Output 06/07/24 06/08/24 06/09/24 06/10/24 23:59 23:59 23:59 23:59 Weight 53.07 kg Constitutional Constitutional: moderate distress, cachectic, chronically ill appearing and cooperative *Routine HEENT Exam Head: Present normocephalic and atraumatic Eye: Present EOMI and PERRL ENT: Present mucous membranes moist *Routine Neck Exam Neck: Present supple; Absent lymphadenopathy *Routine Respiratory Exam Respiratory: Present accessory muscle use, prolonged expiratory phase, wheezes, crackles and diminished air movement; Absent rhonchi *Routine Cardiovascular Exam Cardiovascular: Present tachycardia Comments: Regular rhythm *Routine Abdominal Exam Abdominal: Present soft and normoactive bowel sounds; Absent tenderness *Routine Rectal Exam Rectal:: deferred *Routine Genitalia Exam Genitalia:: deferred *Routine Extremities Exam Extremities: Absent cyanosis, clubbing or edema *Routine Skin Exam Skin: Present warm; Absent rash *Routine Neurological Exam Neurological: Present alert, oriented X3 and moving all extremities; Absent altered mental status Assessment and Plan *Assessment and plan (1) Acute on chronic hypoxic respiratory failure: Status: Acute Category: Medical Code(s): J96.21 - Acute and chronic respiratory failure with hypoxia (2) Acute exacerbation of chronic obstructive pulmonary disease: Status: Acute Category: Medical Code(s): J44.1 - Chronic obstructive pulmonary disease with (acute) exacerbation (3) Acute and chronic respiratory failure with hypercapnia: Status: Acute Category: Medical Code(s): J96.22 - Acute and chronic respiratory failure with hypercapnia (4) Tobacco abuse disorder: Status: Chronic Category: Medical Code(s): Z72.0 - Tobacco use (5) Small cell lung cancer: Status: Chronic Category: Medical Code(s): C34.90 - Malignant neoplasm of unspecified part of unspecified bronchus or lung (6) Smoking greater than 30 pack years: Status: Chronic Category: Social Hx Code(s): F17.210 - Nicotine dependence, cigarettes, uncomplicated (7) Chronic hypoxemic respiratory failure: Status: Chronic Category: Medical Code(s): J96.11 - Chronic respiratory failure with hypoxia (8) Cachexia: Status: Acute Category: Medical Code(s): R64 - Cachexia Plan 69-year-old male with history of lung cancer, severe COPD, presents with worsening shortness of breath over the past week. Found to have acute on chronic hypoxemic respiratory failure. Started on BiPAP in the ER due to elevation in CO2. Not responding to nebulizers, increased oxygen requirement from baseline. Discussed case with ER physician, request admission for further management. I agreed to admit. Currently on 4 L oxygen, remains tachypneic with poor air movement. At risk for decompensation. Problems addressed as follows: Acute on chronic hypoxic respiratory failure with hypercapnia due to COPD exacerbation -DuoNebs every 4 hours. -Received Methylpred 125 mg once in the ER. Continue 40 mg IV twice daily -Ceftriaxone and azithromycin daily -Pulmicort twice daily -Resume Trelegy daily -Status post magnesium 2 g in the ER. -Comprehensive respiratory panel pending -Per my review of chest imaging, no focal consolidation. Significant air trapping with flattening of diaphragm Tobacco use disorder: Counseled on need to stop smoking. Seriously complicates patient's respiratory disease. Nicotine patch as needed daily during admission. 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 Protein supplementation with meals Full code Regular diet Prophylactic Lovenox
[2024-06-10] MEDS: IPRATROPIUM/ALBUTEROL 3 ML NEB IH ×2 (19:20→22:51)
[2024-06-10] MEDS: BUDESONIDE 0.5MG/2ML NEB 0.5 MG IH (19:20)
[2024-06-10] MEDS: PROPRANOLOL 10 MG 10 EACH PO (20:27)
[2024-06-10 21:33] LABS: Troponin I 0.03 ng/ml (0.00-0.034)
[2024-06-10] MEDS: TRAZODONE 150 MG 150 EACH PO (23:04)
[2024-06-11] VITALS (17 sets, daily range): BP systolic 97–144; BP diastolic 56–78; PULSE 77–103; RESP 12–26; TEMP 36.6–36.8; O2SAT 89–100; BMI 16.7
[2024-06-11] MEDS: IPRATROPIUM/ALBUTEROL 3 ML NEB IH ×6 (02:45→23:01)
[2024-06-11] MEDS: BUDESONIDE 0.5MG/2ML NEB 0.5 MG IH ×2 (06:13→18:22)
[2024-06-11 07:31] LABS: Basophils % 0.3 % (0.1-2.0); Eosinophils % 0.3 % (0.1-12.0); Hematocrit 40.2 % (42.0-52.0); Hemoglobin 12.9 g/dL (14.1-18.0); Lymphocytes # 0.5 K/mm3 (0.7-4.5); Lymphocytes % 10.5 % (10-50); Mean Corpuscular HGB Conc 32.1 g/dL (31.8-35.4); Mean Corpuscular Hemoglobin 31.4 pg (27.0-31.2); Mean Corpuscular Volume 97.9 fl (80-94); Mean Platelet Volume 9.4 fl (7.4-10.4); Monocytes # 0.3 K/mm3 (0.1-1.0); Monocytes % 5.7 % (1.7-9.3); Neutrophils % 83.2 % (37.0-80.0); Platelet Count 295 K/mm3 (142-424); Red Blood Count 4.11 M/mm3 (4.60-6.20); Red Cell Distribution Width 14.8 % (11.5-17.5); White Blood Count 4.8 K/mm3 (4.8-10.8)
[2024-06-11 07:39] LABS: Albumin Level 4.6 g/dl (3.5-5.0); Chloride 97 mmol/L (98-107); Potassium 4.3 mmoL/L (3.5-5.1); Sodium 139 mmol/L (136-145)
[2024-06-11 07:42] LABS: Alanine Aminotransferase 18 U/L (12-78); Albumin/Globulin Ratio 1.4 (1.1-1.8); Alkaline Phosphatase 71 U/L (38-126); Anion Gap 11.3 mEq/L (5-15); Aspartate Amino Transferase 35 U/L (17-59); Bilirubin,Total 0.5 mg/dl (0.2-1.3); Blood Urea Nitrogen 12 mg/dl (9-20); Carbon Dioxide 35 mmol/L (22.0-30.0); Creatinine Clearance Estimated 54 mL/min (50-200); Estimated Glomerular Filt Rate 112 ml/min (>60); GFR (African American) 136 ML/MIN (>60); Globulin 3.2 g/dL (1.3-3.2); Total Protein,Serum 7.8 g/dl (6.3-8.2)
[2024-06-11 07:43] LABS: Calcium 6.7 mg/dl (8.4-10.2); Glucose 133 mg/dl (74-100); Magnesium 1.9 mg/dl (1.6-2.3)
[2024-06-11] MEDS: ASPIRIN 325MG TABLET 325 MG PO ×2 (09:10→14:39)
[2024-06-11] MEDS: PROPRANOLOL 20MG TAB 10 MG PO ×2 (09:10→21:26)
[2024-06-11] MEDS: METHYLPREDNISOLONE SOD SUCC 40MG VIAL 40 MG IV ×2 (09:11→21:26)
[2024-06-11] MEDS: OXYMETAZOLINE NASAL SPRAY 0.05% 15ML NS (09:11)
[2024-06-11] MEDS: FLUTICASONE/UMECLIDIN/VILANTER 100/62.5/25MCG INHALER 1 PUFF IH (10:15)
--- NOTE | 2024-06-11 10:43 | EXP.ACUTE.PN ---
Subjective *Date: 06/11/24 *Time: 12:07 Interval history: Clinically appears better today, not in respiratory distress to the extent of yesterday. Afebrile. Tolerating p.o. intake. at bedside. Patient denies chest pain, nausea, vomiting, confusion. Medical Exam Vital signs and Labs for Last 24 Hours: Vital Signs Temp Pulse Pulse Resp BP BP Pulse Ox 06/11/24 10:16 98 H 06/11/24 10:16 93 H 06/11/24 09:00 06/11/24 08:48 98 F 06/11/24 08:00 98 H 21 144/77 H 100 06/11/24 07:48 98 H 100 06/11/24 06:14 96 H 06/11/24 06:14 93 H 06/11/24 06:14 99 06/11/24 06:00 103 H 25 H 135/78 98 06/11/24 04:00 98.0 F 06/11/24 04:00 90 06/11/24 04:00 83 13 100 06/11/24 04:00 90 15 143/77 H 100 06/11/24 02:53 97 H 06/11/24 02:53 95 H 06/11/24 02:00 77 15 118/67 100 06/11/24 00:00 90 06/11/24 00:00 98.2 F 06/11/24 00:00 86 12 125/73 100 06/10/24 22:53 91 H 06/10/24 22:53 94 H 06/10/24 22:00 84 14 120/70 100 06/10/24 20:00 90 06/10/24 20:00 102 H 43 H 100 06/10/24 20:00 98.2 F 06/10/24 19:34 100 H 06/10/24 19:30 109 H 06/10/24 19:30 101 H 06/10/24 19:30 06/10/24 18:56 06/10/24 18:00 98 F 99 H 34 H 166/90 H 100 06/10/24 17:51 98.4 F 104 H 18 121/74 06/10/24 17:30 110 H 14 121/74 99 06/10/24 17:00 92 H 26 H 125/64 98 06/10/24 16:30 96 H 22 171/89 H 100 06/10/24 15:30 94 H 20 119/77 100 06/10/24 15:00 104 H 21 113/78 98 06/10/24 14:57 06/10/24 14:40 106 H 06/10/24 14:40 106 H 06/10/24 14:30 105 H 23 126/80 100 06/10/24 14:00 109 H 27 H 144/89 H 100 06/10/24 13:45 98.4 F 115 H 30 H 177/99 H 96 O2 Del Method O2 Flow Rate FiO2 06/11/24 10:16 06/11/24 10:16 06/11/24 09:00 Nasal Cannula 3 06/11/24 08:48 06/11/24 08:00 Nasal Cannula 3 06/11/24 07:48 Nasal Cannula 3 06/11/24 06:14 06/11/24 06:14 06/11/24 06:14 Nasal Cannula 4 06/11/24 06:00 Nasal Cannula 3 06/11/24 04:00 06/11/24 04:00 06/11/24 04:00 Nasal Cannula 3 06/11/24 04:00 Nasal Cannula 3 06/11/24 02:53 06/11/24 02:53 06/11/24 02:00 Nasal Cannula 3 06/11/24 00:00 06/11/24 00:00 06/11/24 00:00 Nasal Cannula 3 06/10/24 22:53 06/10/24 22:53 06/10/24 22:00 Nasal Cannula 3 06/10/24 20:00 06/10/24 20:00 Nasal Cannula 3 06/10/24 20:00 06/10/24 19:34 06/10/24 19:30 06/10/24 19:30 06/10/24 19:30 Nasal Cannula 3 06/10/24 18:56 Nasal Cannula 3 06/10/24 18:00 Nasal Cannula 3 06/10/24 17:51 Nasal Cannula 06/10/24 17:30 Nasal Cannula 4 06/10/24 17:00 Nasal Cannula 4 06/10/24 16:30 BiPAP 06/10/24 15:30 BiPAP 06/10/24 15:00 BiPAP 06/10/24 14:57 40 06/10/24 14:40 06/10/24 14:40 06/10/24 14:30 BiPAP 06/10/24 14:00 Nasal Cannula 06/10/24 13:45 Nasal Cannula 3 Intake and Output 06/10/24 06/11/24 06/11/24 23:59 07:59 15:59 Intake Total 420 / 420 Output Total 1000 / 1000 0 / 1000 Balance -1000 / -580 420 / -580 Intake: Intake, Oral Amount 420 / 420 Output: Output, Urine Amount 1000 / 1000 0 / 1000 Other: Number of Voids 0 Number of Unmeasured Voids 0 Weight 53.07 kg 53.07 kg Patient Weight 06/11/24 23:59 Weight 53.07 kg Laboratory Results - last 24 hr 06/10/24 13:55: WBC 11.0 H, RBC 3.97 L, Hgb 12.6 L, Hct 38.6 L, MCV 97.1 H, MCH 31.8 H, MCHC 32.8, RDW 14.7, Plt Count 296, MPV 7.4, Neut % (Auto) 83.2 H, Lymph % (Auto) 7.3 L, [place] % (Auto) 7.0, Eos % (Auto) 2.1, Baso % (Auto) 0.4, Neut # (Auto) 9.2 H, Lymph # (Auto) 0.8, [place] # (Auto) 0.8, Eos # (Auto) 0.2, Baso # (Auto) 0.0, D-Dimer 0.80 H, Sodium 136, Potassium 3.6, Chloride 94 L, Carbon Dioxide 35 H, Anion Gap 10.6, BUN 8 L, Creatinine 0.60 L, Estimated Creat Clear 55, Estimated GFR 134, Est GFR ( Amer) 163, Glucose 108 H, Calcium 6.0 L, Total Bilirubin 0.5, AST 32, ALT 16, Alkaline Phosphatase 79, Troponin I 0.04 H, NT-Pro-B Natriuret Pep 282 H, Total Protein 7.6, Albumin 4.3, Globulin 3.3 H, Albumin/Globulin Ratio 1.3 06/10/24 14:00: VBG pH 7.30 L, VBG pCO2 62.3 H, VBG pO2 42.1 H, VBG HCO3 29.6, VBG Total CO2 31.5 H, VBG O2 Saturation 73.4 H, VBG Base Excess 3.1 H, VBG Lactic Acid 1.2 06/10/24 18:34: Troponin I 0.04 H 06/10/24 19:00: Chlamy pneumoniae PCR Not detected, Adenovirus (PCR) Not detected, B. pertussis DNA (PCR) Not detected, Coronavirus OC43 (PCR) Not detected, Coronavirus HKU1 (PCR) Not detected, Coronavirus 229E (PCR) Not detected, SARS-CoV-2 (PCR) Not detected, Coronavirus NL63 (PCR) Not detected, Human Metapneumovir PCR Not detected, Influenza A (H1) PCR Not detected, Influ A (H1N1/09) PCR Not detected, Influenza A (H3) PCR Not detected, Influenza Type A (PCR) Not detected, Influenza Type B (PCR) Not detected, M. pneumoniae (PCR) Not detected, Parainfluenza 1 (PCR) Not detected, Parainfluenza 2 (PCR) Not detected, Parainfluenza 3 (PCR) Not detected, Parainfluenza 4 (PCR) Not detected, RSV (PCR) Not detected, Entero/Rhino (PCR) Not detected 06/10/24 21:05: Troponin I 0.03 06/11/24 06:21: WBC 4.8 D, RBC 4.11 L, Hgb 12.9 L, Hct 40.2 L, MCV 97.9 H, MCH 31.4 H, MCHC 32.1, RDW 14.8, Plt Count 295, MPV 9.4, Neut % (Auto) 83.2 H, Lymph % (Auto) 10.5, [place] % (Auto) 5.7, Eos % (Auto) 0.3, Baso % (Auto) 0.3, Neut # (Auto) 4.0, Lymph # (Auto) 0.5 L, [place] # (Auto) 0.3, Eos # (Auto) 0.0, Baso # (Auto) 0.0, Sodium 139, Potassium 4.3, Chloride 97 L, Carbon Dioxide 35 H, Anion Gap 11.3, BUN 12 D, Creatinine 0.70, Estimated Creat Clear 54, Estimated GFR 112, Est GFR ( Amer) 136, Glucose 133 H D, Calcium 6.7 L, Magnesium 1.9, Total Bilirubin 0.5, AST 35, ALT 18, Alkaline Phosphatase 71, Total Protein 7.8, Albumin 4.6, Globulin 3.2, Albumin/Globulin Ratio 1.4 I & O for Labs for Last 24 Hours: Intake & Output 06/08/24 06/09/24 06/10/24 06/11/24 23:59 23:59 23:59 23:59 Intake Total 420 / 420 Output Total 1000 / 1000 Balance -580 / -580 Weight 53.07 kg 53.07 kg Constitutional: Present mild distress, thin, chronically ill appearing and cooperative Head: Present atraumatic and normocephalic ENT: Present normal exam Respiratory: Present prolonged expiratory phase, wheezes and crackles; Absent rhonchi Comment:: Poor air movement but better than yesterday Cardiac: Present Reg Rate and Rhythm GI: Present normal bowel sounds; Absent tenderness Extremities: Present normal inspection and full ROM Skin: Present intact; Absent erythema Neuro: Present Grossly Intact, alert, awake, oriented x 3 and moves all extremities Assessment and Plan *Assessment and plan (1) Acute on chronic hypoxic respiratory failure: Status: Acute Category: Medical Code(s): J96.21 - Acute and chronic respiratory failure with hypoxia (2) Acute exacerbation of chronic obstructive pulmonary disease: Status: Acute Category: Medical Code(s): J44.1 - Chronic obstructive pulmonary disease with (acute) exacerbation (3) Acute and chronic respiratory failure with hypercapnia: Status: Acute Category: Medical Code(s): J96.22 - Acute and chronic respiratory failure with hypercapnia (4) Tobacco abuse disorder: Status: Chronic Category: Medical Code(s): Z72.0 - Tobacco use (5) Small cell lung cancer: Status: Chronic Category: Medical Code(s): C34.90 - Malignant neoplasm of unspecified part of unspecified bronchus or lung (6) Smoking greater than 30 pack years: Status: Chronic Category: Social Hx Code(s): F17.210 - Nicotine dependence, cigarettes, uncomplicated (7) Chronic hypoxemic respiratory failure: Status: Chronic Category: Medical Code(s): J96.11 - Chronic respiratory failure with hypoxia (8) Cachexia: Status: Acute Category: Medical Code(s): R64 - Cachexia Plan 69-year-old male with history of lung cancer, severe COPD, presents with worsening shortness of breath over the past week. Found to have acute on chronic hypoxemic respiratory failure. Started on BiPAP in the ER due to elevation in CO2. Not responding to nebulizers, increased oxygen requirement from baseline. Discussed case with ER physician, request admission for further management. I agreed to admit. Patient has done well overnight. Currently on 4 L oxygen this morning. Breathing more comfortably. Continues to require inpatient management for aggressive inhaler treatment, pulmonary toilet, monitoring for stability in his respiratory status. Problems addressed as follows: Acute on chronic hypoxic respiratory failure with hypercapnia due to COPD exacerbation -DuoNebs every 4 hours, Pulmicort twice daily. - Continue methylprednisolone 40 mg IV twice daily, will wean to prednisone at time of discharge to complete 5 days of prednisone therapy -Ceftriaxone 1 g and azithromycin 500 mg daily -Resume Trelegy daily -Potassium 4.3, magnesium 1.9, kidney function normal with BUN 12, creatinine 0.7. White count normal at 4.8. Repeat CBC, CMP, magnesium ordered for the morning. -Comprehensive respiratory panel negative for all analytes Tobacco use disorder: Counseled on need to stop smoking. Seriously complicates patient's respiratory disease. Nicotine patch as needed daily during admission. 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 Protein supplementation with meals DNI Regular diet Prophylactic Lovenox
[2024-06-11] MEDS: AZITHROMYCIN 500 MG in 0.9 % SODIUM CHLORIDE 250 ML 250 MG IV (13:03)
[2024-06-11] MEDS: CEFTRIAXONE SODIUM 1 GM in 0.9 % SODIUM CHLORIDE 50 ML IV (14:39)
--- NOTE | 2024-06-11 17:53 | PC.NURSE ---
PT IS RESTING IN BED WITH FAMILY AT BEDSIDE. ALERT AND ORIENTED X4. LUNG SOUNDS HAVE SCATTERED RHONCHI/WHEEZES. O2 SATURATION HAS MAINTAINED 90-95% ON 2 L NC. ABDOMEN SOFT/NON TENDER WITH ACTIVE BOWEL SOUNDS. AMBULATES TO THE BATHROOM. WILL CONTINUE TO MONITOR.
[2024-06-11] MEDS: FAMOTIDINE 20MG TABLET 20 MG PO (21:27)
[2024-06-11] MEDS: TRAZODONE 50MG TABLET 150 MG PO (21:27)
[2024-06-12] VITALS: BP 121/67; PULSE 88; PULSE 97; RESP 18; TEMP 36.9; O2SAT 99
[2024-06-12 04:00] VITALS: BP 119/60; PULSE 85; PULSE 92; RESP 18; TEMP 36.6; O2SAT 92; BMI 17.8
--- NOTE | 2024-06-12 05:42 | PC.NURSE ---
Alert and oriented. Independent in the room. 4L NC at patient request, when turned down, pt states he stays at 4L at home and would like us not to move it down. Pt has had no complaints this shift other than heartburn, PRN medication given per jan. Lung sounds ex. wheezing noted. Call light in reach.
[2024-06-12] MEDS: BUDESONIDE 0.5MG/2ML NEB 0.5 MG IH (06:15)
[2024-06-12] MEDS: FLUTICASONE/UMECLIDIN/VILANTER 100/62.5/25MCG INHALER 1 PUFF IH (06:15)
[2024-06-12] MEDS: IPRATROPIUM/ALBUTEROL 3 ML NEB IH (06:15)
[2024-06-12 06:16] VITALS: PULSE 102; PULSE 98; O2SAT 98
[2024-06-12 08:00] VITALS: BP 130/62; PULSE 98; RESP 18; TEMP 36.7; O2SAT 99
[2024-06-12 08:06] LABS: Basophils % 0.1 % (0.1-2.0); Eosinophils % 0.3 % (0.1-12.0); Hematocrit 34.4 % (42.0-52.0); Lymphocytes # 0.5 K/mm3 (0.7-4.5); Lymphocytes % 5.7 % (10-50); Mean Corpuscular HGB Conc 31.9 g/dL (31.8-35.4); Mean Corpuscular Volume 100.3 fl (80-94); Mean Platelet Volume 9.1 fl (7.4-10.4); Monocytes # 0.4 K/mm3 (0.1-1.0); Monocytes % 4.2 % (1.7-9.3); Neutrophils # 8.2 K/mm3 (1.8-7.8); Neutrophils % 89.8 % (37.0-80.0); Platelet Count 284 K/mm3 (142-424); Red Blood Count 3.43 M/mm3 (4.60-6.20); White Blood Count 9.2 K/mm3 (4.8-10.8)
[2024-06-12 08:15] LABS: Alanine Aminotransferase 17 U/L (12-78); Albumin Level 3.5 g/dl (3.5-5.0); Albumin/Globulin Ratio 1.3 (1.1-1.8); Alkaline Phosphatase 79 U/L (38-126); Anion Gap 10.7 mEq/L (5-15); Aspartate Amino Transferase 29 U/L (17-59); Bilirubin,Total 0.2 mg/dl (0.2-1.3); Blood Urea Nitrogen 19 mg/dl (9-20); Calcium 6.2 mg/dl (8.4-10.2); Carbon Dioxide 29 mmol/L (22.0-30.0); Chloride 103 mmol/L (98-107); Creatinine Clearance Estimated 57 mL/min (50-200); Estimated Glomerular Filt Rate 134 ml/min (>60); GFR (African American) 163 ML/MIN (>60); Globulin 2.7 g/dL (1.3-3.2); Glucose 182 mg/dl (74-100); Magnesium 1.7 mg/dl (1.6-2.3); Potassium 3.7 mmoL/L (3.5-5.1); Sodium 139 mmol/L (136-145); Total Protein,Serum 6.2 g/dl (6.3-8.2)
[2024-06-12] MEDS: METHYLPREDNISOLONE SOD SUCC 40MG VIAL 40 MG IV (08:16)
[2024-06-12] MEDS: ASPIRIN 325MG TABLET 325 MG PO (08:16)
[2024-06-12] MEDS: AZITHROMYCIN 500 MG in 0.9 % SODIUM CHLORIDE 250 ML 250 MG IV (08:16)
[2024-06-12] MEDS: PROPRANOLOL 20MG TAB 10 MG PO (08:17)
[2024-06-12 08:45] LABS: MANUAL DIFFERENTIAL MANUAL DIFFERENTIAL (MANUAL DIFF)
[2024-06-12 09:35] LABS: Lymphocytes % 6 % (10-50); Macrocytosis 1+; Monocytes % 5 % (2-9); Neutrophils % 89 % (42-76); Platelet Estimate Normal; Total Cells Counted 100
--- NOTE | 2024-06-12 10:10 | P.DS_ITS ---
General Admission date:: 06/10/24 Discharge date: 06/12/24 HPI HPI HPI: Mr. Madera is a 69-year-old male with history of hypertension, hyperlipidemia, COPD, chronic respiratory failure, lung cancer. Presented to the ER because of worsening shortness of breath. States has had increased coughing for the past few days. Saw his primary care earlier this week and was started on antibiotics and steroids but symptoms have continued to progress. Denies any fever but has had some chills. Grandkids have been sick. Continues to smoke daily. On baseline 3 L oxygen. On arrival to the ER, found to be hypoxic necessitating BiPAP due to hypercapnia. Patient started on antibiotics, steroids, breathing treatments. Continues to be in respiratory distress. Chest imaging obtained with no focal consolidation, concern for COPD exacerbation with acute hypoxemic respiratory failure. Patient denies nausea, vomiting, confusion or syncope. Hypertensive and tachycardic. Alert and oriented x 4. Medicine consulted for admission. Arrival to the floor, patient still in distress but showing improvement compared to presentation per his at bedside. Does not want to wear the BiPAP unless he has to. When asked if he would want to be intubated, he states that he does not want intubation. Interested in nicotine patch. Hospital Course Hospital Course Hospital Course: 69-year-old male with history of lung cancer, severe COPD, presents with worsening shortness of breath over the past week. Found to have acute on chronic hypoxemic respiratory failure. Started on BiPAP in the ER due to elevation in CO2. Not responding to nebulizers, increased oxygen requirement from baseline. Discussed case with ER physician, request admission for further management. I agreed to admit. Patient initially on BiPAP. Weaned off over the first few hours of admission given improvement in mentation and improvement in blood gas. Transitioned to nasal cannula oxygen. Gradually weaned to 2 to 3 L which is his baseline. On goal-directed therapy for COPD exacerbation. Stable to discharge home to continue treatment. Problems addressed as follows: Acute on chronic hypoxic respiratory failure with hypercapnia due to COPD exacerbation -Admitted for respiratory failure and need for IV antibiotics, steroids, breath ing treatments. Started on DuoNebs every 4 hours and Pulmicort twice daily. Initially on BiPAP but able to wean after few hours to nasal cannula oxygen. Treated with IV methylprednisolone during admission. Will transition to prednisone 40 mg daily at discharge to complete 5 additional days of steroids. Initially on ceftriaxone and azithromycin during admission, transition to azithromycin oral and cefdinir to complete 5 days of antibiotics. Resume home Trelegy. Recommend continuing DuoNebs at home every 4-6 hours as needed for the next few days while he continues to recover from his exacerbation. Resume Trelegy daily after discharge. Labs with normal white count on day of discharge at 9.2. Kidney function and electrolytes acceptable at discharge. Would benefit from repeat lab work in a week to monitor for continued stability. -Comprehensive respiratory panel negative at admission. Chest imaging with no focal consolidation. Tobacco use disorder: Counseled on need to stop smoking. Seriously complicates patient's respiratory disease. Nicotine patch as needed daily during admission. 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 Protein supplementation with meals Stable to discharge home with close follow-up with primary care and pulmonology. Medication sent to [facility] at patient's request. Instructed him to pick his medications up early in the morning to take his dose is due tomorrow. Received antibiotics and steroids prior to discharge, he is covered for the next 24 hours. Exam Data for Last 24 hours Vital signs and Labs for Last 24 Hours: Temp Pulse Resp BP Pulse Ox O2 Del Method O2 Flow Rate 98.1 F 98 H 18 130/62 99 Nasal Cannula 4 06/12/24 08:00 06/12/24 08:00 06/12/24 08:00 06/12/24 08:00 06/12/24 08:00 06/12/24 09:00 06/12/24 09:00 FiO2 40 06/10/24 14:57 Laboratory Results - last 24 hr 06/12/24 06:32: WBC 9.2 D, RBC 3.43 L, Hgb 11.0 L, Hct 34.4 L, MCV 100.3 H, MCH 32.0 H, MCHC 31.9, RDW 15.0, Plt Count 284, MPV 9.1, Neut % (Auto) 89.8 H, Lymph % (Auto) 5.7 L, [place] % (Auto) 4.2, Eos % (Auto) 0.3, Baso % (Auto) 0.1, Neut # (Auto) 8.2 H, Lymph # (Auto) 0.5 L, [place] # (Auto) 0.4, Eos # (Auto) 0.0, Baso # (Auto) 0.0, Total Counted 100, Neutrophils % (Manual) 89 H, Lymphocytes % (Manual) 6 L, Monocytes % (Manual) 5, Platelet Estimate Normal, Macrocytosis 1+, Sodium 139, Potassium 3.7, Chloride 103, Carbon Dioxide 29, Anion Gap 10.7, BUN 19 D, Creatinine 0.60 L, Estimated Creat Clear 57, Estimated GFR 134, Est GFR ( Amer) 163, Glucose 182 H, Calcium 6.2 L, Magnesium 1.7 D, Total Bilirubin 0.2, AST 29, ALT 17, Alkaline Phosphatase 79, Total Protein 6.2 L, Albumin 3.5 D, Globulin 2.7, Albumin/Globulin Ratio 1.3 I & O for Last 24 hours: Intake & Output 06/09/24 06/10/24 06/11/24 06/12/24 23:59 23:59 23:59 23:59 Intake Total 1755 / 1755 400 / 400 Output Total 1000 / 1000 0 / 0 Balance 755 / 755 400 / 400 Weight 53.07 kg 53.07 kg 56.382 kg Constitutional Constitutional: no acute distress, cachectic, chronically ill appearing and cooperative *Routine HEENT Exam Head: Present normocephalic Eye: Present EOMI and PERRL ENT: Present mucous membranes moist *Routine Neck Exam Neck: Present supple; Absent lymphadenopathy *Routine Respiratory Exam Respiratory: Present wheezes and diminished air movement; Absent rhonchi or crackles *Routine Cardiovascular Exam Cardiovascular: Present RRR *Routine Abdominal Exam Abdominal: Present soft and normoactive bowel sounds; Absent tenderness *Routine Rectal Exam Patient deferred: visual exam *Routine Exam Patient deferred: penile exam *Routine Extremities Exam Extremities: Absent cyanosis, clubbing or edema *Routine Skin Exam Skin: Present warm; Absent rash *Routine Neurological Exam Neurological: Present alert, oriented X3 and moving all extremities; Absent altered mental status Results Data Completed and Pending Labs on day of discharge: Labs from last 24 hours 06/12/24 06:32 WBC 9.2 D RBC 3.43 L Hgb 11.0 L Hct 34.4 L MCV 100.3 H MCH 32.0 H MCHC 31.9 RDW 15.0 Plt Count 284 MPV 9.1 Neut % (Auto) 89.8 H Lymph % (Auto) 5.7 L [place] % (Auto) 4.2 Eos % (Auto) 0.3 Baso % (Auto) 0.1 Neut # (Auto) 8.2 H Lymph # (Auto) 0.5 L [place] # (Auto) 0.4 Eos # (Auto) 0.0 Baso # (Auto) 0.0 Total Counted 100 Neutrophils % (Manual) 89 H Lymphocytes % (Manual) 6 L Monocytes % (Manual) 5 Platelet Estimate Normal Macrocytosis 1+ Sodium 139 Potassium 3.7 Chloride 103 Carbon Dioxide 29 Anion Gap 10.7 BUN 19 D Creatinine 0.60 L Estimated Creat Clear 57 Estimated GFR 134 Est GFR ( Amer) 163 Glucose 182 H Calcium 6.2 L Magnesium 1.7 D Total Bilirubin 0.2 AST 29 ALT 17 Alkaline Phosphatase 79 Total Protein 6.2 L Albumin 3.5 D Globulin 2.7 Albumin/Globulin Ratio 1.3 DS: Diagnosis Discharge Diagnosis (1) Acute on chronic hypoxic respiratory failure: Status: Acute Code(s): J96.21 - Acute and chronic respiratory failure with hypoxia (2) Acute exacerbation of chronic obstructive pulmonary disease: Status: Acute Code(s): J44.1 - Chronic obstructive pulmonary disease with (acute) exacerbation (3) Acute and chronic respiratory failure with hypercapnia: Status: Acute Code(s): J96.22 - Acute and chronic respiratory failure with hypercapnia (4) Tobacco abuse disorder: Status: Chronic Code(s): Z72.0 - Tobacco use (5) Small cell lung cancer: Status: Chronic Code(s): C34.90 - Malignant neoplasm of unspecified part of unspecified bronchus or lung (6) Smoking greater than 30 pack years: Status: Chronic Code(s): F17.210 - Nicotine dependence, cigarettes, uncomplicated (7) Chronic hypoxemic respiratory failure: Status: Chronic Code(s): J96.11 - Chronic respiratory failure with hypoxia (8) Cachexia: Status: Acute Code(s): R64 - Cachexia Meds Home Medications and Allergies Home Medications ?Medication ?Instructions ?Recorded ?Confirmed ?Type trazodone 150 mg tablet 150 mg PO DAILY sleep 07/03/22 06/11/24 History fluticasone fur. 100 mcg-umeclid 1 inh inhalation DAILY Copd 01/05/23 06/11/24 History 62.5 mcg-vilant 25 mcg inhalat.powder (Trelegy Ellipta) lidocaine-prilocaine 2.5 %-2.5 % 2.5 g topical DIRECTED PRN 01/20/23 06/11/24 History topical cream NUMBING AGENT aspirin 325 mg tablet 325 mg PO DAILY Heart Disease 05/11/23 06/11/24 History propranolol 10 mg tablet 10 mg PO BID 12/16/23 06/11/24 History azithromycin 250 mg tablet 250 mg PO QMWF #45 tabs 02/03/24 06/11/24 Rx azelastine 137 mcg (0.1 %) nasal 2 spray intranasal BID 04/19/24 06/11/24 History spray albuterol sulfate 90 mcg/actuation 2 puff inhalation QIDP PRN 06/11/24 06/11/24 History aerosol inhaler Shortness Of Breath Or Wheezing azithromycin 500 mg tablet 500 mg PO DAILY 2 days #2 tabs 06/12/24 Rx cefdinir 300 mg capsule 300 mg PO BID 2 days #4 caps 06/12/24 Rx ipratropium 0.5 mg-albuterol 3 mg 3 ml inhalation QIDP PRN Shortness 06/12/24 Rx (2.5 mg base)/3 mL nebulization Of Breath Or Wheezing 30 days #180 soln mL prednisone 20 mg tablet 40 mg (2 x 20 mg) PO DAILY 5 days 06/12/24 Rx #10 tabs New Prescriptions to Start Prescriptions: Nicolas Alva cefdinir Nicolas Tomas ipratropium-albuterol Nicolas Tomsa prednisone Nicolas Tomas Allergies Allergy/AdvReac Type Severity Reaction Status Date / Time silver Allergy Severe Rash Verified 05/25/24 09:23 [From Tegaderm AG Mesh] Penicillins [PENICILLINS] Allergy Mild Verified 05/25/24 09:23 amitriptyline AdvReac Intermediate gi upset Verified 05/25/24 09:23 adhesive AdvReac Verified 05/25/24 09:23 hydrocodone AdvReac Verified 05/25/24 09:23 Discharge Plan Disposition Patient Disposition: Home, Self-Care Condition: Fair Follow up Plan Follow up with: Napoleon Webber MD [Physician] - 2 weeks (please call for follow up appointment) Main Carrington MD [Primary Care Provider] - 1 week (please call for appointment) Prescriptions/Medication Reconciliation: New azithromycin 500 mg tablet 500 mg PO DAILY 2 Days Qty: 2 0RF prednisone 20 mg tablet 40 mg PO DAILY 5 Days Qty: 10 0RF cefdinir 300 mg capsule 300 mg PO BID 2 Days Qty: 4 0RF Continued propranolol 10 mg tablet 10 mg PO BID Patient Comments: TAKE 1 TABLET BY MOUTH TWICE DAILY azelastine 137 mcg (0.1 %) aerosol,spray 2 spray intranasal BID Patient Comments: USE 2 SPRAYS IN EACH NOSTRIL TWICE DAILY trazodone 150 mg tablet 150 mg PO DAILY lidocaine-prilocaine 2.5-2.5 % cream 2.5 g topical DIRECTED PRN (Reason: NUMBING AGENT) Patient Comments: USE DIRECTED azithromycin 250 mg tablet 250 mg PO QMWF Qty: 45 2RF Trelegy Ellipta 100-62.5-25 mcg blister with device 1 inh inhalation DAILY aspirin 325 mg Tablet 325 mg PO DAILY albuterol sulfate 90 mcg/actuation HFA aerosol inhaler 2 puff INHALATION QIDP PRN (Reason: Shortness Of Breath Or Wheezing) Patient Comments: INHALE 2 PUFFS FOUR TIMES A DAY NEEDED FOR SHORTNESS OF BREATH OR WHEEZING ipratropium-albuterol 0.5 mg-3 mg(2.5 mg base)/3 mL solution for nebulization 3 ml INHALATION QIDP PRN (Reason: Shortness Of Breath Or Wheezing) 30 Days Qty: 180 0RF Problem Reconciliation Problems Reviewed?: Yes Patient Discharge Instructions ACTIVITY: Continue current activity DIET: continue same diet Patient Instructions: DI for Chronic Obstructive Pulmonary Disease, DI for Respiratory Failure Print Language: Serbian Providers Primary Care Provider: Main Carrington Admit Provider: Nicolas Tomas Attending Provider: Nicolas Tomas
[2024-06-12] MEDS: CEFTRIAXONE SODIUM 1 GM in 0.9 % SODIUM CHLORIDE 50 ML IV (10:31)
--- OUTSIDE RECORDS SUMMARY | 2024-06-12 11:34 | XMS_ITS ---
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 Name Role Phone Main Carrington Primary Care Provider Main Carrington Unavailable Unavailable ALLERGIES Allergen (clinical drug ingredient) Drug/Non Drug Allergy documented on EMR Reaction Allergy Type Onset Date Status penicillin Unknown Drug Allergy Active REASON FOR VISIT 2 month check up, Medicare wellness update MEDICATIONS Medication SIG (Take, Route, Frequency, Duration) Notes Start Date End Date Status Claritin-D 12 Hour 5 mg-120 mg 1 tab(s) orally every 12 hours for 7 days 12/28/2023 Active Azelastine Hydrochloride Nasal 137 mcg/inh 2 spray(s) intranasally 2 times a day for 30 days Active cyclobenzaprine 10 mg 1 tab(s) orally 3 times a day for 30 days Active traZODone 150 mg 1 tab(s) orally once a day (at bedtime) for 90 days Active Propranolol Hydrochloride 10 mg 1 tab(s) orally 2 times a day for 90 days Active Albuterol (Eqv-ProAir HFA) 90 mcg/inh 2 puff(s) inhaled every 6 hours PRN for 30 days Active Trelegy Ellipta 200 mcg-62.5 mcg-25 mcg/inh 1 puff(s) inhaled once a day Active azithromycin 250 mg 1tablet Thursday, Thursday, Thursday Active albuterol-ipratropium 2.5 mg-0.5 mg/3 mL 3 mL by nebulizer 4 times a day Active SOCIAL HISTORY Tobacco Use: Social History Observation Description Date Details (start date - stop date) Current Smoker NA - NA Sex Assigned At : Social History Observation Description Sex Assigned At Unknown Smoking: Question Answer Notes Are you a: current smoker How often do you smoke cigarettes? every day How many cigarettes a day do you smoke? 6-10 How soon after you wake up d o you smoke your first cigarette? 31-60 min Are you interested in quitting? Ready to quit Additional Findings: Tobacco User Light cigarett e smoker ((1-9 cigs/day) PROBLEMS Problem Type ICD Code Onset Dates Problem Status W/U Status Risk SNOMED Code Notes Problem Personal history of nicotine dependence (Z87.891) Active confirmed [id number] VITAL SIGNS Temperature 97.7 degrees Fahrenheit 03/14/20 24 Heart Rate 80 /min 03/14/2024 Blood pressure systolic 140 mm Hg 03/14/20 24 Blood pressure diastolic 94 mm Hg 024 Height 5 ft 10 in in 03/14/2024 Weight 115 lbs 03/14/2024 BMI 16.5 kg/m2 03/14/2024 Encounters Encounter Location Date Provider Diagnosis [facility] [address] [place] [address] 03/14/2024 Main Carrington Essential tremor G25 .0 ; Vasomotor rhinitis J30.0 ; COPD, group D, by GOLD 2017 classification J44.9 ; Personal history of nicotine dependence Z87.891 and Routine medical exam Z00.00 ASSESSMENTS Encounter Date Diagnosis Assessment Notes Treatment Notes Treatment Clinical Notes 03/14/2024 Essential tremor (ICD-10 - G25.0) Continue propranolol 10 mg BID given improvement in symptoms 03/14/2024 Vasomotor rhinitis (ICD-10 - J30.0) Continue Azelastine spray as needed for vasomotor rhinitis - Has been somewhat helpful, discussed with patient to get a ramp this up to 3 times daily 03/14/2024 COPD, group D, by GOLD 2017 classification (ICD-10 - J44.9) Continue home inhalers, patient oxygen stable at 3L via [place] Discussed importance of tobacco cessation, patient expressed understanding 03/14/2024 Personal history of nicotine dependence (ICD-10 - Z87.891) Once again discussed smoking cessation. Discussed rationale for quitting even at this late stage and with his cancer. Patient is in the precontemplative stage. Not a candidate for low-dose CT scanning given his active cancer 03/14/2024 Routine medical exam (ICD-10 - Z00.00) Patient not a candidate for lung cancer screening given active diagnosis. Declines colonoscopy. Pleura previously noted CT scans of show no evidence of AAA. Has had flu and pneumonia shots, declines other vaccinations. No falls, no cognitive impairment noted. Low BMI but seems to be eating well. is healthcare surrogate. PLAN OF TREATMENT Treatment Notes Assessment Notes Essential tremor Continue propranolol 10 mg BID given improvement in symptoms Vasomotor rhinitis Continue Azelastine spray as needed for vasomotor rhinitis - Has been somewhat helpful, discussed with patient to get a ramp this up to 3 times daily COPD, group D, by GOLD 2017 classificati on Continue home inhalers, patient oxygen stable at 3L via [place] Discussed importance of tobacco cessation, patient expressed understanding Personal history of nicotine dependence Once again discussed smoking cessation. Discussed rationale for quitting even at this late stage and with his cancer. Patient is in the precontemplative stage. Not a candidate for low-dose CT scanning given his active cancer Routine medical exam Patient not a candidate for lung cancer screening given active diagnosis. Declines colonoscopy. Pleura previously noted CT scans of show no evidence of AAA. Has had flu and pneumonia shots, declines other vaccinations. No falls, no cognitive impairment noted. Low BMI but seems to be eating well. is healthcare surrogate. Next Appt Details Follow Up: 4 Months,prn, Massiel son: Provider Name:Main Carrington, 07/18/2024 09:15:00 AM, [address] [facility], [address], [place], [address], Progress Notes * Alejandro MADERA SDOB:[birth year] (68 yo M)Acc No.[id number]:03/14/2024 Progress Notes Patient:??Alejandro MADERA Provider:??Main Carrington MD :1955?Age:68 Y?Sex:Christi clarke Date:03/14/2024 Address:[address], [id number] Subjective: * Chief Complaints: * ?1. 2 month check up. 2 . Medicare wellness update. * HPI: ?gen:? Patient is a 68 y/o M with PMH significant for COPD, Lung/Liver cancer, RLS, HTN, partially collapsed right lung, and tremor who is presenting for 2 month follow up. Patient notes he is doing okay and notes overall improvement in his tremor. Patient continues to have rhinitis although he does note the azelastine spray helps for a short amount of time. patient otherwise doing well and has no new complaints today. ?In regards to Medicare wellness update, patient has no concerns on his health risk assessment, no recent falls. Denies depressive symptoms, denies cognitive impairment or memory loss. ?Continues to follow with pulmonary and heme-onc at [facility] for his cancer treatments and end-stage COPD respectively. * ROS:?FUNCTIONAL STATUS:?ADLS??Independent for all ADL/IADL.?RESPIRATORY:?Shortness of breath??yes.??no??Chest pain.??Chest congestion??yes.??Cough??yes.?CARDIOLOGY:?See HPI??Yes.??Reviewed, No Symptoms Reported:??Yes.??no??Dizziness.??no??Chest pain.??no??Palpitations.??no??Leg edema.??no??Shortness of breath.??no??Varicose veins.?PSYCHOLOGY:?no??Depression.??no??Eating disorder.??no??Mental or physical abuse.?UROLOGY:?no??Difficulty urinating.??no??Blood in urine.??no??Frequent urination.? * Medical History:??RLS, HTN, COPD, Lung/ Liver cancer, Partially Collapsed right lung. * Surgical History:??port inst alled 12/2022. * Family History:??Father: dec eased.??Mother: .??Paternal Grand Father: .??Paternal Grand Mother: .??Maternal Grand Father: .??Maternal Grand Mother: .??Paternal uncle: unknown.??Paternal aunt: unknown.??Maternal uncle: .??Maternal aunt: .??Siblings: alive, multiple sclerosis, diagnosed with Diabetes.??Children: alive, diagnosed with Diabetes, Heart Disease.??5 brother(s) . 2 son(s) , 1 daughter(s) . .?? * Social History:??Smoking??Ar e you a:??current smoker,??How often do you smoke cigarettes???every day,??How many cigarettes a day do you smoke???6-10,??How soon after you wake up do you smoke your first cigarette???31-60 min,??Are you interested in quitting???Ready to quit,??Additional Findings: Tobacco User??Light cigarette smoker ((1-9 cigs/day).??Recreational drug use: no. Exercise: no. Home smoke detector use: yes. Caffeine: yes, frequency:coffee, pepsi. Living Will: No. Alcohol: socially, Type: , Frequency: ,Years: , Determination:. Sexually active: no. Travel outside [place]: no. Occupation: Retired. * Medications:??Taking azithro mycin 250 mg tablet 1tablet Thursday, Thursday, Thursday , Taking albuterol-ipratropium 2.5 mg-0.5 mg/3 mL solution 3 mL by nebulizer 4 times a day , Taking Trelegy Ellipta 200 mcg-62.5 mcg-25 mcg/inh powder 1 puff(s) inhaled once a day , Taking Albuterol (Eqv-ProAir HFA) 90 mcg/inh aerosol 2 puff(s) inhaled every 6 hours PRN , Taking cyclobenzaprine 10 mg tablet 1 tab(s) orally 3 times a day , Taking traZODone 150 mg tablet 1 tab(s) orally once a day (at bedtime) , Taking Propranolol Hydrochloride 10 mg tablet 1 tab(s) orally 2 times a day , Taking Claritin-D 12 Hour 5 mg-120 mg tablet, extended release 1 tab(s) orally every 12 hours , Taking Azelastine Hydrochloride Nasal 137 mcg/inh spray 2 spray(s) intranasally 2 times a day , Medication List reviewed and reconciled with the patient * Allergies:??Penicillin. Objective: * Vitals:??Nurse: be, Temp: 97 .7, RR: 24, HR: 80, BP: 140/94, Ht: 5 ft 10 in, Wt: 115, BMI:16.5. * Examination: ?General Examination: ?General??Elderly, ill-appearing.?Heart:??RRR, No m/r/g/h, Nl S1S2, No JVD, 2(+) symmetric pulses, No edema,.?Lungs:??decreased breath sounds bilaterally, no wheezes, no crackles.?Abdomen:??soft, NT/ND, BS present.?Extremities:??no clubbing, no edema,.? Assessment: * Assessment: 1.??Essential tremor - G25.0 (Primary)??2.??Vasomotor rhinitis - J30.0??3.??COPD, group D, by GOLD 2017 classification - J44.9??4.??Personal history of nicotine dependence - Z87.891??5.??Routine medical exam - Z00.00?? Plan: * Treatment: 2.??Vasomotor rhinitis?? Notes: Continue Azelastine spray as needed for vasomotor rhinitis - Has been somewhat helpful, discussed with patient to get a ramp this up to 3 times daily? 3.??COPD, group D, by GOLD 2 017 classification?? Notes: Continue home inhalers, patient oxygen stable at 3L via [place] Discussed importance of tobacco cessation, patient expressed understanding? 4.??Personal history of abena theodore dependence?? Notes: Once again discussed smoking cessation. Discussed rationale for quitting even at this late stage and with his cancer. Patient is in the precontemplative stage. Not a candidate for low-dose CT scanning given his active cancer? 5.??Routine medical exam?? Notes: Patient not a candidate for lung cancer screening given active diagnosis. Declines colonoscopy. Pleura previously noted CT scans of show no evidence of AAA. Has had flu and pneumonia shots, declines other vaccinations. No falls, no cognitive impairment noted. Low BMI but seems to be eating well. is healthcare surrogate.? * Procedure Codes:??G0438 VJ HAUSER VST; PERSNL PPS INIT, 1170F FUNCTIONAL STATUS ASSESSMENT, 1123F ADVANCED DIRECTIVE - HAS A LIVING WILL, 3017F COLORECTAL CA SCREEN DOC REV, Modifiers: 8P , G8418 BMI < 22 CALCUATE W/FOLLOWUP, G8510 NEGATIVE SCREENING F/U NOT REQUIRED, G9902 Pt scrn tbco and id as user, G0030 PET MYOCARD IMAG FLW PREV PET; 1, G8783 NORMAL BP READING DOC F/U NOT RQR, 08706 BEHAV CHNG SMOKING 3-10 MIN * Preventive Medicine:?ABEBA Screening:??Falls: Future screening for fall risks??Have you had two or more falls in the past year???No,??Have you had any falls with injury in the past year???No.?Depression Screening:??PHQ 2??Feeling down depressed or hopeless??No.?Screening / Special Tests:??Colonoscopy??declined.??Alcohol Screen??Did you have a drink containing alcohol in the past year???No.??Lung Cancer Screening??na... has lung cancer.??AAA screen??Has been done, normal.?? * Follow Up:??4 Months,prn * * Sign off status: Completed true * Provider:??Main Carrington MD Dalton e:??03/14/2024 History and Physical Notes * Examination Category Sub-Category Detail Notes General Examination Heart: RRR, No m/r/ g/h, Nl S1S2, No JVD, 2(+) symmetric pulses, No edema, Lungs: decreased breath jassi nds bilaterally, no wheezes, no crackles Abdomen: soft, NT/ND, BS pres ent Extremities: no clubbing, no karen a, General Elderly, ill-appeari ng
--- OUTSIDE RECORDS SUMMARY | 2024-06-12 11:34 | XMS_ITS ---
Author Organization [facility] Address [address] [place] [facility] [address] [facility] [address] [place] [address] Care Team Providers Care Electron Microscopist Name Role Phone Main Carrington Primary Care Provider Main Carrington Unavailable Unavailable Cathie Musa Unavailable [phone] ALLERGIES Allergen (clinical drug ingredient) Drug/Non Drug Allergy documented on EMR Reaction Allergy Type Onset Date Status penicillin Unknown Drug Allergy Active REASON FOR VISIT productive cough-not sure of the color-mucus chokes him when he tries to sleep, usually on 3L of oxygen but used 4L last night MEDICATIONS Medication SIG (Take, Route, Frequency, Duration) Notes Start Date End Date Status Albuterol (Eqv-ProAir HFA) 90 mcg/inh 2 puff(s) inhaled every 6 hours PRN for 30 days Active Trelegy Ellipta 200 mcg-62.5 mcg-25 mcg/inh 1 puff(s) inhaled once a day Active Azelastine Hydrochloride Nasal 137 mcg/inh 2 spray(s) intranasally 2 times a day for 30 days prn Active Propranolol Hydrochloride 10 mg 1 tab(s) orally 2 times a day for 90 days Active albuterol-ipratropium 2.5 mg-0.5 mg/3 mL 3 mL by nebulizer 4 times a day Active predniSONE 20 mg 2 tabs orally once a day for 5 days 05/31/2024 Active levoFLOXacin 500 mg 1 tab(s) orally ever y 24 hours for 7 days 05/31/2024 Active azithromycin 250 mg 1tablet Thursday, Thursday, Thursday Active traZODone 150 mg 1 tab(s) orally once a day (at bedtime) for 90 days Active SOCIAL HISTORY Tobacco Use: Social History [...] W/U Status Risk SNOMED Code Notes Problem COPD exacerbation (J44.1) Active confirmed 197795809 VITAL SIGNS Temperature 98.3 degrees Fahrenheit 05/31/20 Oximetry 97% 3L 05/31/2024 Heart Rate 104 /min 05/31/2024 Blood pressure systolic 144 mm Hg 05/31/20 24 Blood pressure diastolic 70 mm Hg 024 Height 5 ft 10 in in 05/31/2024 Weight 114.4 lbs 05/31/2024 BMI 16.41 kg/m2 05/31/2024 Encounters Encounter Location Date Provider Diagnosis [facility] [address] [facility] [address] [place] [address] [place] [address] 05/31/2024 Cathie Musa COPD exacerbation J44.1 ASSESSMENTS Encounter Date Diagnosis Assessment Notes Treatment Notes Treatment Clinical Notes 05/31/2024 COPD exacerbation (ICD-10 - J44.1) start oral steroids tomorrow, encouraged pulm toilet and start levaquin as noted. close FU with any concerns about progression or failure to improve PLAN OF TREATMENT Medication Medication Name Sig Start Date Stop Date Notes predniSONE 20 mg 2 tabs orally once a day for 5 days 05/31 levoFLOXacin 500 mg 1 tab(s) orally ever y 24 hours for 7 days 05/31/2024 Treatment Notes Assessment Notes COPD exacerbation start oral steroids tomorrow, encouraged pulm toilet and start levaquin as noted. close FU with any concerns about progression or failure to improve Next Appt Details Follow Up: prn, Reason: Provider Name:Main Carrington 07/18/2024 09:15:00 AM, [address], [address], [place], [address], MEDICATIONS ADMINISTERED Medication Instructions Date of Administration Dosage Notes Dexamethasone 4mg Injection 05/31/2024 4 mg Progress Notes * HAIDERAlejandro GREGG SDOB:[birth year] (69 yo M)Acc No.[id number]:05/31/2024 Progress Notes Patient:??Alejandro MADERA S Provider:??ROBERTO Lim :1955?Age:69 Y?Sex:Christi clakre Date:05/31/2024 Address:[address] [place] [address], [place] Pcp:Main Matsonur Brendaleonard Subjective: * Chief Complaints: * ?1. Productive cough-no t sure of the color-mucus chokes him when he tries to sleep. 2. usually on 3L of oxygen but used 4L last night. * HPI: ?gen:? 69 yr old male with advanced COPD seen today with c/o cough and chest congestion well above his baseline for about 2-3 days. Difficult expectorating sputum. No fevers but feels generally poorly. Has increased his supplemental O2 by 1L. Using albuterol with some relief. Denies know exposure to illness, really does not leave his home. * ROS:?CONSTITUTIONAL:?no??Weight gain.??Loss of appetite??yes.??no??Fever.?DERMATOLOGY:?no??Rash.?ENT:?Sore throat??yes.?GASTROENTEROLOGY:?no??Vomiting.??no??Diarrhea.? * Medical History:??RLS, HTN, COPD, Lung/ Liver cancer, Partially Collapsed right lung, 3L oxygen. * Medications:??Taking azithro mycin 250 mg tablet 1tablet Thursday, Thursday, Thursday , Taking albuterol-ipratropium 2.5 mg-0.5 mg/3 mL solution 3 mL by nebulizer 4 times a day , Taking Trelegy Ellipta 200 mcg-62.5 mcg-25 mcg/inh powder 1 puff(s) inhaled once a day , Taking Albuterol (Eqv-ProAir HFA) 90 mcg/inh aerosol 2 puff(s) inhaled every 6 hours PRN , Taking Propranolol Hydrochloride 10 mg tablet 1 tab(s) orally 2 times a day , Taking Azelastine Hydrochloride Nasal 137 mcg/inh spray 2 spray(s) intranasally 2 times a day , Notes to Pharmacist: prn, Taking traZODone 150 mg tablet 1 tab(s) orally once a day (at bedtime) , Discontinued cyclobenzaprine 10 mg tablet 1 tab(s) orally 3 times a day , Discontinued Claritin-D 12 Hour 5 mg-120 mg tablet, extended release 1 tab(s) orally every 12 hours , Medication List reviewed and reconciled with the patient * Allergies:??Penicillin. Objective: * Vitals:??Nurse: j luis, Pain: 8- throat pain, Temp: 98.3, Pulse O2: 97% 3L, RR: 24, HR: 104, BP: 144/70, Ht: 5 ft 10 in, Wt: 114.4, BMI:16.41. * Examination: ?General Examination: ?General??pleasant, cachectic appearing, on O2 by NC.?Oral cavity:??Moist membranes, Poor dentition.?Heart:??Regular Rate and Rhythm, distant.?Lungs:??diffusely diminished, anterior rhonchi.?Abdomen:??Soft, NTND, BSNA, No organomegaly or peritoneal signs..?Extremities:??no edema.?Psych??Normal Mood/Affect.? Assessment: * Assessment: 1.??COPD exacerbation - J44. 1 (Primary)?? Plan: * Treatment: * Therapeutic Injections:? Dexamethasone 4mg Injection : 4 mg (Dose No:1) (Route: Intramuscular) given by MARCELLA Ricks on left deltoid * Procedure Codes:??J1100 Dexa methasone Sodium Phosphate 4mg Injection, 48301 THERAPEUTIC ADMINISTRATION * Follow Up:??prn * * Sign off status: Completed true * Provider:??ROBERTO Lim Date: ??05/31/2024 History and Physical Notes * Examination Category Sub-Category Detail Notes General Examination Heart: Regular Rate and Rhythm, distant Lungs: diffusely diminished , anterior rhonchi Abdomen: Soft, NTND, BSNA, No organomegaly or peritoneal signs. Extremities: no edema Oral cavity: Moist membranes, Poo r dentition General pleasant, cachectic appearing, on O2 by NC Psych Normal Mood/Affect
--- OUTSIDE RECORDS SUMMARY | 2024-06-12 11:34 | XMS_ITS ---
Author Organization [facility] Address [address] [address] Care Team Providers Care Outside Plant Technician Name Role Phone Main Carrington Primary Care Provider [phone] Main Carrington Unavailable Unavailable REASON FOR VISIT Refills MEDICATIONS Medication SIG (Take, Route, Fr equency, Duration) Notes Start Date End Date Status traZODone 150 mg 1 tab(s) orally once a day (at bedtime) for 90 days Active Encounters Encounter Location Date Provider Diagnosis [facility] [address] [place] [address] 05/27/2024 Main Carrington PLAN OF TREATMENT Medication Medication Name Sig Start Date Stop Date Notes traZODone 150 mg 1 tab(s) orally once a day (at bedtime) for 90 days Next Appt Details Provider Name:Main Carrington, 07/18/2024 09:15:00 AM, [address] [facility] [address] [facility] [address], [place], [address], Progress Notes * Alejandro MADERA SDOB:[birth year] (69 yo M)Acc No.[id number]:05/27/2024 Patient:??Alejandro MADERA :1955?Age:69 Y?Sex:Christi clarke Address:[address] [place] [address] [place], [place], [address] * Refills?? Refill traZODone tablet, 150 mg, orally, 90, 1 tab(s), once a day (at bedtime), 90 days, Refills=1 * true * Date:??
--- OUTSIDE RECORDS SUMMARY | 2024-06-12 11:34 | XMS_ITS | Patient Health Record ---
Author Organization [facility] Address [address] [place] [address] [facility] [address] [place] [address] Care Team Providers Care Brusher Operator Name Role Phone Main Carrington Primary Care Provider Main Carrington Unavailable Unavailable Cathie Musa Unavailable [phone] ALLERGIES Allergen (clinical drug ingredient) Drug/Non Drug Allergy documented on EMR Reaction Allergy Type Onset Date Status penicillin Unknown Drug Allergy Active REASON FOR REFERRAL No Information MEDICATIONS Medication SIG (Take, Route, Frequency, Duration) Notes Start Date End Date Status predniSONE 20 mg 2 tabs orally once a day for 5 days 05/31/2024 Active levoFLOXacin 500 mg 1 tab(s) orally ever y 24 hours for 7 days 05/31/2024 Active traZODone 150 mg 1 tab(s) orally once a day (at bedtime) for 90 days Active Albuterol (Eqv-ProAir HFA) [...] times a day for 90 days Active azithromycin 250 mg 1tablet Thursday, Thursday, Thursday Active albuterol-ipratropium 2.5 mg-0.5 mg/3 mL 3 mL by nebulizer 4 times a day Active IMMUNIZATIONS Vaccine Route Administration Date Status Comme nts Prevnar PCV-20 (Pneumococcal conjugate 20) IM Intramuscular 12/01/2022 Administered Fluzone High Dose IM Intramuscular 08/12/2023 Administered SOCIAL HISTORY Tobacco Use: Social History Observation [...] W/U Status Risk SNOMED Code Notes Problem Malignant neoplasm of unspecified part of unspecified bronchus or lung (C34.90) Active confirmed Malignant tumor of lung (351290082) Problem Primary insomnia (F51.01) Active confirmed 8719613 Problem Essential tremor (G25.0) Active confirmed 358407169 Problem Essential (primary) hypertension (I10) Active confirmed Essential hypertension (93653110) Problem Vasomotor rhinitis (J30.0) Active confirmed 0999158 Problem Acute and chronic respiratory failure with hypercapnia (J96.22) Active confirmed Acute on chroni c hypoxemic and hypercapnic respiratory failure (disorder) (48435449103101) Problem Unspecified osteoarthritis, unspecified site (M19.90) Active confirmed Osteoarthritis (291487530) Problem Personal history of nicotine dependence (Z87.891) Active confirmed 330367855263274555 Problem 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) Active confirmed Chronic obstruc tive pulmonary disease (91456684) Problem Restless leg syndrome (G25.81) Active confirmed 55893776 Problem COPD exacerbation (J44.1) Active confirmed 239446217 Problem 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) Active confirmed Secondary malignant neoplasm of liver (87829744) Problem Cigarette smoker (F17.210) Active confirmed Cigarette smoke r (52647457) Problem Tobacco dependence (F17.200) Active confirmed 02137204 Problem Oxygen dependent (Z99.81) Active confirmed Dependence on supplemental oxygen (370649933418) Problem COPD, group D, by GOLD 2017 classification (J44.9) Active confirmed 33715324 VITAL SIGNS Heart Rate 104 /min 05/31/2024 Temperature 98.3 degrees Fahrenheit 05/31/2024 Oximetry 97% 3L 05/31/2024 Blood pressure diastolic 70 mm Hg 05/31/2024 Height 5 ft 10 in in 05/31/2024 Blood pressure systolic 144 mm Hg 05/31/2024 Weight 114.4 lbs 05/31/2024 BMI 16.41 kg/m2 05/31/2024 Encounters Encounter Location Date Provider Diagnosis [facility] [address] [place], [place] [address] 08/12/2023 Main [place] COPD, group D, by GO LD 2017 classification J44.9 ; Acute and chronic respiratory failure with hypercapnia J96.22 ; Malignant neoplasm of unspecified part of unspecified bronchus or lung C34.90 ; Restless leg syndrome G25.81 ; Encounter for immunization Z23 and Immunization(s) administered Z23 [facility] [address] [place], [place] [address] 09/14/2023 Main Zeb Recurrent frontal sinusitis J01.11 [facility] [address] [place], [place] [address] 12/14/2023 Main Zeb Acute and chronic respiratory failure with hypercapnia J96.22 ; Malignant neoplasm of unspecified part of unspecified bronchus or lung C34.90 ; COPD, group D, by GOLD 2017 classification J44.9 ; Tobacco dependence F17.200 ; Tremor R25.1 and Routine medical exam Z00.00 [facility] [address] [facility] [address] [place] [address] 12/28/2023 Mainjad Carrington Acute frontal sinusitis, recurrence not specified J01.10 [facility] [address] [facility] [address] [place], [place] [address] 01/11/2024 Main Zeb Vasomotor rhinitis J30.0 ; COPD, group D, by GOLD 2017 classification J44.9 ; Malignant neoplasm of unspecified part of unspecified bronchus or lung C34.90 and Essential tremor G25.0 [facility] [address] [place] [address] 03/14/2024 Main Carrington Essential tremor G25 .0 ; Vasomotor rhinitis J30.0 ; COPD, group D, by GOLD 2017 classification J44.9 ; Personal history of nicotine dependence Z87.891 and Routine medical exam Z00.00 [facility] [address] [place] [address] 05/31/2024 Cathie Musa COPD exacerbation J4 4.1 [facility] [address] [place] [address] 11/03/2023 Main Carrington [facility] [address] [place], [place] [address] 05/27/2024 Main Carrington ASSESSMENTS Encounter Date Diagnosis Assessment Notes Treatment Notes Treatment Clinical Notes 08/12/2023 Acute and chronic respiratory failure with hypercapnia (ICD-10 - J96.22) Stable, very poor prognosis 08/12/2023 COPD, group D, by GOLD 2017 classification (ICD-10 - J44.9) Remains oxygen dependent with end-stage COPD. Follows with pulmonary, on triple inhaler, oxygen and nebs at home. 09/14/2023 Recurrent frontal sinusitis (ICD-10 - J01.11) 12/14/2023 Malignant neoplasm of unspecified part of unspecified bronchus or lung (ICD-10 - C34.90) - CUrrently on chemo with oncology - APpointment this week 12/14/2023 Acute and chronic respiratory failure with hypercapnia (ICD-10 - J96.22) - Stable on home 3L for the last year. 01/11/2024 Vasomotor rhinitis (ICD-10 - J30.0) Given patient's persistent rhinitis, it is likely non-allergic with a vasomotor etiology. Patient is on continuous nasal cannula oxygen supplementation. An Azelastine nasal spray was prescribed. Patient can try this to see how he tolerates it. He has a history of feeling as if he is being drowned with flonase, so he may discontinue this spray if he has a similar response. 01/11/2024 COPD, group D, by GOLD 2017 classification (ICD-10 - J44.9) Patient has a significant smoking history. Continue to follow with pulmonology. 03/14/2024 Essential tremor (ICD-10 - G25.0) Continue propranolol 10 mg BID given improvement in symptoms 03/14/2024 Vasomotor rhinitis (ICD-10 - J30.0) Continue Azelastine spray as needed for vasomotor rhinitis - Has been somewhat helpful, discussed with patient to get a ramp this up to 3 times daily 12/28/2023 Acute frontal sinusitis, recurrence not specified (ICD-10 - J01.10) Presenting with 1 week of worsening nasal congestion/sinus pain/headache Denies fever or sputum production but does have significant pharyngeal erythema. PLAN: Will treat with 7 days of cefdinir 300mg BID and claritin-D Patient to call back in if symptoms worsening or no improvement after 7 days 05/31/2024 COPD exacerbation (ICD-10 - J44.1) start oral steroids tomorrow, encouraged pulm toilet and start levaquin as noted. close FU with any concerns about progression or failure to improve 03/14/2024 COPD, group D, by GOLD 2017 classification (ICD-10 - J44.9) Continue home inhalers, patient oxygen stable at 3L via [place] Discussed importance of tobacco cessation, patient expressed understanding 01/11/2024 Malignant neoplasm of unspecified part of unspecified bronchus or lung (ICD-10 - C34.90) Patient has metastatic lung carcinoma. Continue to follow with oncology for chemotherapy and pulmonology for symptom/co-morbid COPD management. Will see patient back in the office to see how he is doing in 2 months, sooner if needed. 12/14/2023 COPD, group D, by GOLD 2017 classification (ICD-10 - J44.9) -Stable on current inhaler regimen 08/12/2023 Malignant neoplasm of unspecified part of unspecified bronchus or lung (ICD-10 - C34.90) Follow-up with oncology, they do lab work there. Poor prognosis for cure/remission 08/12/2023 Restless leg syndrome (ICD-10 - G25.81) Uses cyclobenzaprine at night for this problem, we will continue this prescription. 12/14/2023 Tobacco dependence (ICD-10 - F17.200) -Ongoing use. 03/14/2024 Personal history of nicotine dependence (ICD-10 - Z87.891) Once again discussed smoking cessation. Discussed rationale for quitting even at this late stage and with his cancer. Patient is in the precontemplative stage. Not a candidate for low-dose CT scanning given his active cancer 01/11/2024 Essential tremor (ICD-10 - G25.0) Continue propranolol given symptom improvement and his tolerance of the medication. No adverse drug effects at this time. 03/14/2024 Routine medical exam (ICD-10 - Z00.00) Patient not a candidate for lung cancer screening given active diagnosis. Declines colonoscopy. Pleura previously noted CT scans of show no evidence of AAA. Has had flu and pneumonia shots, declines other vaccinations. No falls, no cognitive impairment noted. Low BMI but seems to be eating well. is healthcare surrogate. 08/12/2023 Encounter for immunization (ICD-10 - Z23) Flu shot today, up-to-date with pneumonia vaccine. Will prescribe RSV vaccination for outpatient use 12/14/2023 Tremor (ICD-10 - R25.1) - Intention and resting tremor - Worsened over last 3-6 months - Trial Propanolol 10mg BID, discussed side effect profile (if worsening orthostasis, please DC) - RTC 4 weeks, can discuss altnerative if no improvement 08/12/2023 Immunization(s) administered (ICD-10 - Z23) 12/14/2023 Routine medical exam (ICD-10 - Z00.00) Metastatic Lung Cancer- Follows with Onc, currently on chemo- APpointment this weekTremor- Resting and intention tremor, worsened over the last 3-6 months- Low suspicion for PArkinson's- Trial Propanolol 10mg BID (when wakes up and at noon)[facility]- Decliens RSV for now, UTD on flu and PCV- Defer colonoscopy for now- On [place] 3L, at increased risk for falls given clinical status. - Lung Cancer, per oncology PLAN OF TREATMENT Next Appt Details Provider Name:Main Ureña Zeb, 07/18/2024 09:15:00 AM, [address], [place], [address], Insurance Providers Payer Name Payer Address Payer Phone Subscriber Number Group Number Insured Name Patient Relationship to Insured Coverage Start Date Coverage End Date [employer] [address] [place] [address] [id number] Alejandro Wang Self - patient is the insured MEDICATIONS ADMINISTERED Medication Instructions Date of Administration Dosage Notes Dexamethasone 4mg Injection 05/31/2024 4 mg MEDICAL (GENERAL) HISTORY Medical History History ICD Code RLS HTN COPD Lung/ Liver cancer Partially Collapsed right lung 3L oxygen Surgical History Surgery Date(Month/Year) port installed 12/2022
--- NOTE | 2024-06-15 13:21 | SW/DCPLANNER ---
Follow up phone call: patient stated that he had a PCP appointment today w/ Dr Carrington. Patient stated that he does not have any needs at this time.
== END 2024-06-12 11:07 | disposition home or self-care (01) | DRG 189 ==
LOC: ER 17:23 → 2ND 17:43
PROVIDERS: Emergency Medicine; Admitting Provider Internal Medicine Adolescent Medicine; Emergency Provider Emergency Medicine; PCP Internal Medicine Adolescent Medicine; Visit Provider Internal Medicine Adolescent Medicine
DX: J96.21 Acute and chronic respiratory failure with hypoxia (principal); R64 Cachexia; J44.1 Chronic obstructive pulmonary disease with (acute) exacerbation; J96.22 Acute and chronic respiratory failure with hypercapnia; F17.210 Nicotine dependence, cigarettes, uncomplicated; J96.11 Chronic respiratory failure with hypoxia; Z99.81 Dependence on supplemental oxygen; J43.9 Emphysema, unspecified; E78.5 Hyperlipidemia, unspecified; Z71.6 Tobacco abuse counseling; Z85.118 Personal history of other malignant neoplasm of bronchus and lung
CPT/HCPCS: 36415; 71045; 71275; 80053; 82803; 83735; 83880; 84484; 85007; 85025; 85027; 85378; 87581; 87632; 87635; 87798; 93005; 94640; 94761; 99285; G0378; J0456; J0696; J1650; J2919; J3475; J7030; J7620; Q9967

== ENCOUNTER 2024-07-30 18:03 | Inpatient (IN) | payer MEDICARE, SELFPAY ==
[2024-07-30] VITALS (11 sets, daily range): BP systolic 147–194; BP diastolic 83–100; PULSE 77–98; RESP 18–24; TEMP 36.6–36.9; O2SAT 96–100; BMI 17.4; BMI 17.3
--- NOTE | 2024-07-30 18:13 | ECG_ITS ---
APPROVED REPORT Exam: Resting ECG HR:91 bpm ECG Measurements Heart Rate 91 AXES MA 150 P 87 QRSd 103 QRS 81 QT 376 T 72 QTc 425 Conclusion SINUS RHYTHM POSSIBLE LEFT ATRIAL ENLARGEMENT [-0.1mV P-WAVE IN V1/V2] TALL T-WAVES Electronically signed by : AIYANA BURGOS, 07/30/2024 23:58:34
--- NOTE | 2024-07-30 18:26 | ED_ITS ---
<Statement entered by Macy Reyes DO - 07/30/24 23:42> I was consulted by the ABEBA, and we discussed the complexity of the problems being addressed. I approved the treatment and management plan for this patient's care in the emergency department, thus performing a substantive portion of the medical decision making. Macy Reyes DO Discharge Plan Disposition Patient Disposition: Admitted Discharge ED Provider: Macy Reyes General Adult HPI <Ramila Sena (ED), RECORDS MANAGEMENT ANALYST - Last Filed: 07/30/24 22:15> General Chief complaint: Shortness of Breath/Dyspnea Stated complaint: antolin, SOA Time Seen by Provider: 07/30/24 18:08 History of Present Illness HPI narrative: 69-year-old male presents to the ED for shortness of air. He was on his home O2 tank and was satting 79%. Once he was placed on our oxygen in the ER his O2 sats were 85% on 4 L we decreased him back down to 3 L once he got to 99%. 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 He is going to be reevaluating his treatment with Dr. Ruth at the end of the month. Patient does have history of COPD, asthma, 30-year plus smoker anemia and cancer. Related Data Home Medications ?Medication ?Instructions ?Recorded ?Confirmed trazodone 150 mg tablet 150 mg PO DAILY sleep 07/03/22 06/11/24 fluticasone fur. 100 mcg-umeclid 1 inh inhalation DAILY Copd 01/05/23 06/11/24 62.5 mcg-vilant 25 mcg inhalat.powder (Trelegy Ellipta) lidocaine-prilocaine 2.5 %-2.5 % 2.5 g topical DIRECTED PRN 01/20/23 06/11/24 topical cream NUMBING AGENT aspirin 325 mg tablet 325 mg PO DAILY Heart Disease 05/11/23 06/11/24 propranolol 10 mg tablet 10 mg PO BID 12/16/23 06/11/24 azelastine 137 mcg (0.1 %) nasal 2 spray intranasal BID 04/19/24 06/11/24 spray albuterol sulfate 90 mcg/actuation 2 puff inhalation QIDP PRN 06/11/24 06/11/24 aerosol inhaler Shortness Of Breath Or Wheezing Previous Rx's ?Medication ?Instructions ?Recorded azithromycin 250 mg tablet 250 mg PO QMWF #45 tabs 02/03/24 azithromycin 500 mg tablet 500 mg PO DAILY 2 days #2 tabs 06/12/24 cefdinir 300 mg capsule 300 mg PO BID 2 days #4 caps 06/12/24 ipratropium 0.5 mg-albuterol 3 mg 3 ml inhalation QIDP PRN Shortness 06/12/24 (2.5 mg base)/3 mL nebulization Of Breath Or Wheezing 30 days #180 soln mL prednisone 20 mg tablet 40 mg (2 x 20 mg) PO DAILY 5 days 06/12/24 #10 tabs Allergies Allergy/AdvReac Type Severity Reaction Status Date / Time silver Allergy Severe Rash Verified 05/25/24 09:23 [From Tegaderm AG Mesh] Penicillins [PENICILLINS] Allergy Mild Verified 05/25/24 09:23 amitriptyline AdvReac Intermediate gi upset Verified 05/25/24 09:23 adhesive AdvReac Verified 05/25/24 09:23 hydrocodone AdvReac Verified 05/25/24 09:23 PFS <Ramila Sena (ED), RECORDS MANAGEMENT ANALYST - Last Filed: 07/30/24 22:15> [facility] Disclaimer: The information contained in this section may have been updated after the patient was seen, as this information can be updated by other users. Medical History Bilateral impacted cerumen Tinnitus Hearing loss Lung nodule Hilar lymphadenopathy Pneumonia Sleep apnea Emphysema/COPD Chronic cough Bronchitis Allergies History of anemia Lung collapse Nodule of right lung Tobacco abuse disorder Tobacco abuse counseling Small cell lung cancer Smoking greater than 30 pack years Chronic hypoxemic respiratory failure COPD (chronic obstructive pulmonary disease) Dyspnea on exertion On home O2 Sinus problem History of chemotherapy History of radiation therapy Personal history of arthritis History of lung disease Hyperlipemia Cancer Asthma Essential hypertension COPD exacerbation Surgical History History of insertion of tunneled central venous catheter (CVC) with port History of colonoscopy Hx of cardiac catheterization Normal coronary arteries History of sinus surgery Family History Other Cancer Diabetes Social History (Updated 07/30/24 @ 22:32 by Mary Grace Lopez RN) Smoking Status: Smoker, status unknown tobacco type: cigarettes packs per day: 1 years smoked: 50 alcohol intake: former substance use type: denies use current occupational status: retired and disabled Travel in the last 8 weeks: None household members: spouse housing: house caffeine: Yes <Ramila Sena (ED), RECORDS MANAGEMENT ANALYST - Last Filed: 07/30/24 22:15> ROS Obtained: Yes Systems reviewed as appropriate & no additional complaints except as documented Constitutional Constitutional: Reports as per HPI Physical Exam <Ramila Sena (ED), RECORDS MANAGEMENT ANALYST - Last Filed: 07/30/24 22:15> General General appearance: alert, anxious and in distress Head Head exam: atraumatic and normocephalic Eye Eye exam: Present normal appearance, PERRL and EOMI ENT ENT exam: Present normal exam, normal oropharynx and mucous membranes dry Neck Neck exam: Present normal inspection, full ROM and trachea midline Chest Chest inspection: Present symmetric chest wall rise Respiratory Respiratory exam: Present respiratory distress, wheezes and stridor Expanded Respiratory Exam Location: Left: wheezes and rhonchi, Right: wheezes and rhonchi, Upper: wheezes and rhonchi and Lower: wheezes and rhonchi Cardiovascular Cardiovascular exam: Present regular rate, normal rhythm, normal heart sounds, +S1 and +S2 Abdominal Exam Abdominal exam: Present soft and normal bowel sounds Extremities Exam Extremities exam: Present normal inspection, full ROM and normal capillary refill Neurological Exam Neurological exam: Present alert, oriented X3 and normal gait Skin Skin exam: Present dry, intact and pallor Medical Decision Making <Ramila Sena (ED), RECORDS MANAGEMENT ANALYST - Last Filed: 07/30/24 22:15> Medical Records Screening: Per USPSTF and CDC recommendations, given the prevalence of disease in our region, it is our hospital?s policy to screen for HIV and viral Hepatitis for all patients aged 18 and over and those with ongoing risk factors. [place] Inquiry Pt receiving controlled substance: No Vital Signs: 07/30/24 18:04 07/30/24 18:17 07/30/24 18:30 Temperature 97.9 F Temperature Source Oral Pulse Rate 91 H 89 Pulse Rate [Right Radial] 93 H Respiratory Rate 20 22 18 Blood Pressure 159/91 H 147/83 H Blood Pressure [Right Arm] 159/91 H Blood Pressure Mean 109 109 Blood Pressure Mean [Right Arm] 113 02 Sat by Pulse Oximetry 96 99 100 Oxygen Delivery Method Nasal Cannula Room Air Room Air Oxygen Flow Rate (LPM) 4 07/30/24 19:00 07/30/24 19:30 07/30/24 20:00 Temperature Temperature Source Pulse Rate 82 77 78 Pulse Rate [Right Radial] Respiratory Rate 19 18 20 Blood Pressure 160/95 H 160/100 H 157/87 H Blood Pressure [Right Arm] Blood Pressure Mean Blood Pressure Mean [Right Arm] 02 Sat by Pulse Oximetry 100 100 98 Oxygen Delivery Method Oxygen Flow Rate (LPM) 07/30/24 20:21 Temperature 98.5 F Temperature Source Oral Pulse Rate 92 H Pulse Rate [Right Radial] Respiratory Rate 21 Blood Pressure 157/87 H Blood Pressure [Right Arm] Blood Pressure Mean Blood Pressure Mean [Right Arm] 02 Sat by Pulse Oximetry Oxygen Delivery Method Nasal Cannula Oxygen Flow Rate (LPM) 3 Lab Data Lab Results 07/30/24 18:18: WBC 5.1, RBC 3.82 L, Hgb 12.0 L, Hct 38.1 L, MCV 99.8 H, MCH 31.5 H, MCHC 31.6 L, RDW 14.3, Plt Count 292, MPV 6.9 L, Neut % (Auto) 65.5, Lymph % (Auto) 15.0, [place] % (Auto) 8.3, Eos % (Auto) 10.2, Baso % (Auto) 0.9, Neut # (Auto) 3.4, Lymph # (Auto) 0.8, [place] # (Auto) 0.4, Eos # (Auto) 0.5 H, Baso # (Auto) 0.1, PT 10.2, INR 0.90, APTT 30.8 H, D-Dimer 0.51 H, Sodium 137, Potassium 4.2, Chloride 99, Carbon Dioxide 32 H, Anion Gap 10.2, BUN 6 L, Creatinine 0.80, Estimated Creat Clear 56, Estimated GFR 96, Est GFR ( Amer) 117, Glucose 129 H, Calcium 6.1 L, Total Bilirubin 0.6, AST 59, ALT 25, Alkaline Phosphatase 88, Troponin I < 0.01, NT-Pro-B Natriuret Pep 76.4, Total Protein 7.9 D, Albumin 4.6, Globulin 3.3 H, Albumin/Globulin Ratio 1.4 07/30/24 18:46: VBG pH 7.20 L, VBG pCO2 77.6 H, VBG pO2 64.7 H, VBG HCO3 29.9, V BG Total CO2 32.3 H, VBG O2 Saturation 88.0 H, VBG Base Excess 1.9, VBG Lactic Acid 1.1 07/30/24 18:18 07/30/24 18:18 Orders (Tests/Meds): ED MEDICATIONS Generic Name Dose Route Start Last Admin Trade Name Freq PRN Reason Stop Dose Admin Acetaminophen 1,000 mg 07/30/24 20:33 Acetaminophen 325mg Tab PO 08/29/24 20:32 Q6HP PRN Fever or Mild Pain (1-3) Albuterol/Ipratropium 3 ml 07/30/24 20:33 Ipratropium/Albuterol 3 Ml Neb IH 08/29/24 20:32 Q6HP PRN Shortness Of Breath Aspirin 81 mg 07/31/24 09:00 Aspirin Ec 81mg Tablet PO 08/30/24 08:59 DAILY [facility] Atorvastatin Calcium 40 mg 07/31/24 21:00 Atorvastatin 40mg Tablet PO 08/30/24 20:59 HS [facility] Calcium Carbonate 500 mg 07/31/24 17:00 Calcium Carb + Vit D 500mg Tab PO 08/30/24 16:59 1700 [facility] Docusate Sodium 100 mg 07/31/24 09:00 Docusate Sodium 100 Mg Capsule PO 08/30/24 08:59 DAILY [facility] Enoxaparin Sodium 40 mg 07/30/24 20:45 07/30/24 22:01 Enoxaparin 40mg/0.4ml Syringe SQ 08/29/24 20:44 40 mg DAILY DOREEN Administration Fluticasone/Umeclidinium/Vilanterol 1 puff 07/30/24 20:45 Fluticasone/Umeclidin/Vilanter 200/62.5/25mcg Inhaler IH 08/29/24 20:44 DAILY DOREEN Lorazepam 1 mg 07/30/24 21:14 07/30/24 22:00 Lorazepam 2mg/Ml Vial IV 08/29/24 21:13 1 mg Q4HP PRN Administration Agitation Metoprolol Succinate 25 mg 07/31/24 09:00 Metoprolol Succinate Xl 25mg Tablet PO 08/30/24 08:59 DAILY DOREEN Metoprolol Succinate 25 mg 07/30/24 23:23 Metoprolol Succinate Xl 25mg Tablet PO 07/30/24 23:24 ONCE ONE Metoprolol Tartrate 5 mg 07/30/24 22:40 07/30/24 22:01 Metoprolol Tartrate 5mg/5ml Vial IV 07/30/24 22:41 5 mg ONCE ONE Administration Nicotine 21 mg 07/30/24 20:33 07/30/24 22:01 Nicotine 21mg/24hr Patch TD 08/29/24 20:32 21 mg DAILYP PRN Administration Nicotine Cravings Ondansetron HCl 4 mg 07/30/24 20:30 07/30/24 20:43 Ondansetron 4mg/2ml Vial IV 07/30/24 20:31 4 mg ONCE ONE Administration Ondansetron HCl 4 mg 07/30/24 20:33 Ondansetron 4mg/2ml Vial IV 08/29/24 20:32 Q8HP PRN Nausea Pantoprazole Sodium 40 mg 07/30/24 21:00 07/30/24 22:01 Pantoprazole 40mg Tablet PO 08/29/24 20:59 40 mg HS DOREEN Administration Prednisone 40 mg 07/30/24 20:45 07/30/24 22:01 Prednisone 20mg Tab PO 08/29/24 20:44 40 mg DAILY DOREEN Administration Sodium Chloride 10 ml 07/30/24 20:33 Sodium Chloride 0.9% 10ml Flush Syringe IV 08/29/24 20:32 NEEDED PRN Maintain IV Site Sodium Chloride 10 ml 07/30/24 21:14 Sodium Chloride 0.9% 10ml Vial IV 08/29/24 21:13 NEEDED PRN to Dilute Lorazepam inj Discontinued Medications Generic Name Dose Route Start Last Admin Trade Name Freq PRN Reason Stop Dose Admin Albuterol/Ipratropium 9 ml 07/30/24 18:11 07/30/24 18:46 Ipratropium/Albuterol 3 Ml Neb IH 07/30/24 18:12 9 ml ONCE ONE Administration Magnesium Sulfate 2 gm in 50 mls @ 50 mls/hr 07/30/24 18:21 07/30/24 18:40 Magnesium Sulfate 2gm/50ml Premix IV 07/30/24 19:20 Not Given ONCE ONE Magnesium Sulfate 2 gm in 50 mls @ 50 mls/hr 07/30/24 18:42 07/30/24 18:45 Magnesium Sulfate 2gm/50ml Premix IV 07/30/24 19:41 50 mls/hr ONCE ONE Administration Ceftriaxone Sodium 1 gm/ 50 mls @ 100 mls/hr 07/30/24 19:31 07/30/24 19:39 Sodium Chloride IV 07/30/24 20:00 100 mls/hr ONCE ONE Administration Azithromycin 500 mg/ Sodium 250 mls @ 250 mls/hr 07/30/24 19:31 07/30/24 20:07 Chloride IV 07/30/24 19:32 250 mls/hr ONCE ONE Administration Magnesium Sulfate 1 gm 07/30/24 18:20 07/30/24 18:46 Magnesium Sulfate 1gm/2ml Vial IM 07/30/24 18:21 Not Given ONCE ONE Methylprednisolone Sodium Succinate 125 mg 07/30/24 18:21 07/30/24 18:41 Methylprednisolone Sod Succ 125mg Vial IV 07/30/24 18:22 Not Given ONCE ONE Methylprednisolone Sodium Succinate 125 mg 07/30/24 18:20 07/30/24 18:45 Methylprednisolone Sod Succ 125mg Vial IV 07/30/24 18:21 125 mg ONCE ONE Administration ORDERS Category Date Time Status Chest XR -- portable [XR chest portable] Stat Exams 07/30/24 19:27 Completed Activated Partial Thrombo Time Stat Lab 07/30/24 18:18 Completed Complete Blood Count Auto Diff Stat Lab 07/30/24 18:18 Completed Comprehensive Metabolic Panel Stat Lab 07/30/24 18:18 Completed D-Dimer Stat Lab 07/30/24 18:18 Completed NT Pro Brain Natriuretic Pep. Stat Lab 07/30/24 18:18 Completed Prothrombin Time INR Stat Lab 07/30/24 18:18 Completed Troponin I Q3H Lab 07/30/24 18:18 Completed Troponin I Q3H Lab 07/30/24 21:30 Completed Troponin I Q3H Lab 07/31/24 00:15 Ordered Arterial Blood Gas Stat RT 07/30/24 18:17 Ordered Lactate Arterial Stat RT 07/30/24 18:17 Ordered Venous Blood Gas Routine RT 07/30/24 18:46 Completed Medical Decision Narrative: Insert review patient is a 69-year-old male presenting to the emergency department for evaluation of respiratory distress. Patient is in respiratory distress with O2 of 79% upon arrival. Differential diagnosis includes hypoxemia respiratory distress, pneumonia, COPD exacerbation. Workup will be conducted with chest x-ray, hematologic labs. Initial inventions include a gram of magnesium, Solu-Medrol and DuoNebs x 3. Initial workup reviewed by me showed patient is in hypoxic respiratory failure. Imaging informally interpreted by me and remarkable for COPD with emphysema. Patient declining to wear the BiPAP. He wants a different mask. I talked to hospitalist who agrees to admit patient for further treatment and care for his hypoxemia. <Macy Reyes, DO - Last Filed: 07/30/24 23:44> Vital Signs: 07/30/24 18:04 07/30/24 18:17 07/30/24 18:30 Temperature 97.9 F Temperature Source Oral Pulse Rate 91 H 89 Pulse Rate [Right Radial] 93 H Respiratory Rate 20 22 18 Blood Pressure 159/91 H 147/83 H Blood Pressure [Right Arm] 159/91 H Blood Pressure Mean 109 109 Blood Pressure Mean [Right Arm] 113 02 Sat by Pulse Oximetry 96 99 100 Oxygen Delivery Method Nasal Cannula Room Air Room Air Oxygen Flow Rate (LPM) 4 07/30/24 19:00 07/30/24 19:30 07/30/24 20:00 Temperature Temperature Source Pulse Rate 82 77 78 Pulse Rate [Right Radial] Respiratory Rate 19 18 20 Blood Pressure 160/95 H 160/100 H 157/87 H Blood Pressure [Right Arm] Blood Pressure Mean Blood Pressure Mean [Right Arm] 02 Sat by Pulse Oximetry 100 100 98 Oxygen Delivery Method Oxygen Flow Rate (LPM) 07/30/24 20:21 Temperature 98.5 F Temperature Source Oral Pulse Rate 92 H Pulse Rate [Right Radial] Respiratory Rate 21 Blood Pressure 157/87 H Blood Pressure [Right Arm] Blood Pressure Mean Blood Pressure Mean [Right Arm] 02 Sat by Pulse Oximetry Oxygen Delivery Method Nasal Cannula Oxygen Flow Rate (LPM) 3 Lab Data Lab Results 07/30/24 18:18: WBC 5.1, RBC 3.82 L, Hgb 12.0 L, Hct 38.1 L, MCV 99.8 H, MCH 31.5 H, MCHC 31.6 L, RDW 14.3, Plt Count 292, MPV 6.9 L, Neut % (Auto) 65.5, Lymph % (Auto) 15.0, [place] % (Auto) 8.3, Eos % (Auto) 10.2, Baso % (Auto) 0.9, Neut # (Auto) 3.4, Lymph # (Auto) 0.8, [place] # (Auto) 0.4, Eos # (Auto) 0.5 H, Baso # (Auto) 0.1, PT 10.2, INR 0.90, APTT 30.8 H, D-Dimer 0.51 H, Sodium 137, Potassium 4.2, Chloride 99, Carbon Dioxide 32 H, Anion Gap 10.2, BUN 6 L, Creatinine 0.80, Estimated Creat Clear 56, Estimated GFR 96, Est GFR ( Amer) 117, Glucose 129 H, Calcium 6.1 L, Total Bilirubin 0.6, AST 59, ALT 25, Alkaline Phosphatase 88, Troponin I < 0.01, NT-Pro-B Natriuret Pep 76.4, Total Protein 7.9 D, Albumin 4.6, Globulin 3.3 H, Albumin/Globulin Ratio 1.4 07/30/24 18:46: VBG pH 7.20 L, VBG pCO2 77.6 H, VBG pO2 64.7 H, VBG HCO3 29.9, V BG Total CO2 32.3 H, VBG O2 Saturation 88.0 H, VBG Base Excess 1.9, VBG Lactic Acid 1.1 Orders (Tests/Meds): ED MEDICATIONS Generic Name Dose Route Start Last Admin Trade Name Freq PRN Reason Stop Dose Admin Acetaminophen 1,000 mg 07/30/24 20:33 Acetaminophen 325mg Tab PO 08/29/24 20:32 Q6HP PRN Fever or Mild Pain (1-3) Albuterol/Ipratropium 3 ml 07/30/24 20:33 Ipratropium/Albuterol 3 Ml Neb IH 08/29/24 20:32 Q6HP PRN Shortness Of Breath Aspirin 81 mg 07/31/24 09:00 Aspirin Ec 81mg Tablet PO 08/30/24 08:59 DAILY DOREEN Atorvastatin Calcium 40 mg 07/31/24 21:00 Atorvastatin 40mg Tablet PO 08/30/24 20:59 HS DOREEN Calcium Carbonate 500 mg 07/31/24 17:00 Calcium Carb + Vit D 500mg Tab PO 08/30/24 16:59 1700 DOREEN Docusate Sodium 100 mg 07/31/24 09:00 Docusate Sodium 100 Mg Capsule PO 08/30/24 08:59 DAILY DOREEN Enoxaparin Sodium 40 mg 07/30/24 20:45 07/30/24 22:01 Enoxaparin 40mg/0.4ml Syringe SQ 08/29/24 20:44 40 mg DAILY DOREEN Administration Fluticasone/Umeclidinium/Vilanterol 1 puff 07/30/24 20:45 Fluticasone/Umeclidin/Vilanter 200/62.5/25mcg Inhaler IH 08/29/24 20:44 DAILY DOREEN Lorazepam 1 mg 07/30/24 21:14 07/30/24 22:00 Lorazepam 2mg/Ml Vial IV 08/29/24 21:13 1 mg Q4HP PRN Administration Agitation Metoprolol Succinate 25 mg 07/31/24 09:00 Metoprolol Succinate Xl 25mg Tablet PO 08/30/24 08:59 DAILY DOREEN Metoprolol Succinate 25 mg 07/30/24 23:23 Metoprolol Succinate Xl 25mg Tablet PO 07/30/24 23:24 ONCE ONE Metoprolol Tartrate 5 mg 07/30/24 22:40 07/30/24 22:01 Metoprolol Tartrate 5mg/5ml Vial IV 07/30/24 22:41 5 mg ONCE ONE Administration Nicotine 21 mg 07/30/24 20:33 07/30/24 22:01 Nicotine 21mg/24hr Patch TD 08/29/24 20:32 21 mg DAILYP PRN Administration Nicotine Cravings Ondansetron HCl 4 mg 07/30/24 20:30 07/30/24 20:43 Ondansetron 4mg/2ml Vial IV 07/30/24 20:31 4 mg ONCE ONE Administration Ondansetron HCl 4 mg 07/30/24 20:33 Ondansetron 4mg/2ml Vial IV 08/29/24 20:32 Q8HP PRN Nausea Pantoprazole Sodium 40 mg 07/30/24 21:00 07/30/24 22:01 Pantoprazole 40mg Tablet PO 08/29/24 20:59 40 mg HS DOREEN Administration Prednisone 40 mg 07/30/24 20:45 07/30/24 22:01 Prednisone 20mg Tab PO 08/29/24 20:44 40 mg DAILY DOREEN Administration Sodium Chloride 10 ml 07/30/24 20:33 Sodium Chloride 0.9% 10ml Flush Syringe IV 08/29/24 20:32 NEEDED PRN Maintain IV Site Sodium Chloride 10 ml 07/30/24 21:14 Sodium Chloride 0.9% 10ml Vial IV 08/29/24 21:13 NEEDED PRN to Dilute Lorazepam inj Discontinued Medications Generic Name Dose Route Start Last Admin Trade Name Julio PRN Reason Stop Dose Admin Albuterol/Ipratropium 9 ml 07/30/24 18:11 07/30/24 18:46 Ipratropium/Albuterol 3 Ml Neb IH 07/30/24 18:12 9 ml ONCE ONE Administration Magnesium Sulfate 2 gm in 50 mls @ 50 mls/hr 07/30/24 18:21 07/30/24 18:40 Magnesium Sulfate 2gm/50ml Premix IV 07/30/24 19:20 Not Given ONCE ONE Magnesium Sulfate 2 gm in 50 mls @ 50 mls/hr 07/30/24 18:42 07/30/24 18:45 Magnesium Sulfate 2gm/50ml Premix IV 07/30/24 19:41 50 mls/hr ONCE ONE Administration Ceftriaxone Sodium 1 gm/ 50 mls @ 100 mls/hr 07/30/24 19:31 07/30/24 19:39 Sodium Chloride IV 07/30/24 20:00 100 mls/hr ONCE ONE Administration Azithromycin 500 mg/ Sodium 250 mls @ 250 mls/hr 07/30/24 19:31 07/30/24 20:07 Chloride IV 07/30/24 19:32 250 mls/hr ONCE ONE Administration Magnesium Sulfate 1 gm 07/30/24 18:20 07/30/24 18:46 Magnesium Sulfate 1gm/2ml Vial IM 07/30/24 18:21 Not Given ONCE ONE Methylprednisolone Sodium Succinate 125 mg 07/30/24 18:21 07/30/24 18:41 Methylprednisolone Sod Succ 125mg Vial IV 07/30/24 18:22 Not Given ONCE ONE Methylprednisolone Sodium Succinate 125 mg 07/30/24 18:20 07/30/24 18:45 Methylprednisolone Sod Succ 125mg Vial IV 07/30/24 18:21 125 mg ONCE ONE Administration ORDERS Category Date Time Status Chest XR -- portable [XR chest portable] Stat Exams 07/30/24 19:27 Completed Activated Partial Thrombo Time Stat Lab 07/30/24 18:18 Completed Complete Blood Count Auto Diff Stat Lab 07/30/24 18:18 Completed Comprehensive Metabolic Panel Stat Lab 07/30/24 18:18 Completed D-Dimer Stat Lab 07/30/24 18:18 Completed NT Pro Brain Natriuretic Pep. Stat Lab 07/30/24 18:18 Completed Prothrombin Time INR Stat Lab 07/30/24 18:18 Completed Troponin I Q3H Lab 07/30/24 18:18 Completed Troponin I Q3H Lab 07/30/24 21:30 Completed Troponin I Q3H Lab 07/31/24 00:15 Ordered Arterial Blood Gas Stat RT 07/30/24 18:17 Ordered Lactate Arterial Stat RT 07/30/24 18:17 Ordered Venous Blood Gas Routine RT 07/30/24 18:46 Completed ECG Data Tracing #1: I reviewed this ECG and interpreted as documented below: Normal sinus rhythm with a ventricular rate of 91 bpm. Some peaked T waves in the anteroseptal leads, but patient is very thin and cachectic. No acute ST changes concerning for ischemia. ECG initial impression date: 07/30/24 ECG initial impression time: 18:19 Medical Decision Narrative: Insert review patient is a 69-year-old male presenting to the emergency department for evaluation of respiratory distress. Patient is in respiratory distress with O2 of 79% upon arrival. Differential diagnosis includes hypoxemia respiratory distress, pneumonia, COPD exacerbation. Workup will be conducted with chest x-ray, hematologic labs. Initial inventions include a gram of magnesium, Solu-Medrol and DuoNebs x 3. Initial workup reviewed by me showed patient is in hypoxic respiratory failure. Imaging informally interpreted by me and remarkable for COPD with emphysema. Patient declining to wear the BiPAP. He wants a different mask. I talked to hospitalist who agrees to admit patient for further treatment and care for his hypoxemia. DO Eric: On my assessment of the patient, he is in acute respiratory distress with severely diminished breath sounds bilaterally saturating in the 70s on his home oxygen. We put him on 4 L nasal cannula with improvement to 85%. He continues to have significant respiratory distress. He was given 3 DuoNebs, IV methylprednisolone, IV magnesium to try and achieve symptomatic improvement which helped some, but he had a decompensated respiratory acidosis on blood gas so decision was made to put him on BiPAP. He did not tolerate BiPAP very well, taking it off frequently. We advised him the importance of needing BiPAP. Ultimately, workup consistent with COPD exacerbation and acute on chronic respiratory failure, so it is felt the patient is appropriate for admission for continued monitoring and stabilization. Patient was admitted in stable condition after interactive discussion with the hospitalist Critical Care <Ramila Sena (ELIZABETH), RECORDS MANAGEMENT ANALYST - Last Filed: 07/30/24 22:15> Critical Care Time Critical Care Time: No <Macy Reyes DO - Last Filed: 07/30/24 23:44> Critical Care Time Critical Care Time: Yes Attestation: On 07/30/24, the high probability of a clinically significant, sudden or life threatening deterioration of the following system(s) required my full and direct attention, intervention and personal management. The time I documented below is in addition to time spent performing reported procedures but includes the following listed in this critical care notation. Total Time Total Critical Care Time: 40
[2024-07-30 18:34] LABS: Basophils # 0.1 K/mm3 (0-0.2); Basophils % 0.9 % (0.1-2.0); Eosinophils # 0.5 K/mm3 (0.0-0.4); Eosinophils % 10.2 % (0.1-12.0); Hematocrit 38.1 % (42.0-52.0); Lymphocytes # 0.8 K/mm3 (0.7-4.5); Mean Corpuscular HGB Conc 31.6 g/dL (31.8-35.4); Mean Corpuscular Hemoglobin 31.5 pg (27.0-31.2); Mean Corpuscular Volume 99.8 fl (80-94); Mean Platelet Volume 6.9 fl (7.4-10.4); Monocytes # 0.4 K/mm3 (0.1-1.0); Monocytes % 8.3 % (1.7-9.3); Neutrophils # 3.4 K/mm3 (1.8-7.8); Neutrophils % 65.5 % (37.0-80.0); Platelet Count 292 K/mm3 (142-424); Red Blood Count 3.82 M/mm3 (4.60-6.20); Red Cell Distribution Width 14.3 % (11.5-17.5); White Blood Count 5.1 K/mm3 (4.8-10.8)
[2024-07-30 18:36] LABS: Alanine Aminotransferase 25 U/L (12-78); Albumin Level 4.6 g/dl (3.5-5.0); Albumin/Globulin Ratio 1.4 (1.1-1.8); Alkaline Phosphatase 88 U/L (38-126); Anion Gap 10.2 mEq/L (5-15); Aspartate Amino Transferase 59 U/L (17-59); Bilirubin,Total 0.6 mg/dl (0.2-1.3); Blood Urea Nitrogen 6 mg/dl (9-20); Calcium 6.1 mg/dl (8.4-10.2); Carbon Dioxide 32 mmol/L (22.0-30.0); Chloride 99 mmol/L (98-107); Creatinine Clearance Estimated 56 mL/min (50-200); Estimated Glomerular Filt Rate 96 ml/min (>60); GFR (African American) 117 ML/MIN (>60); Globulin 3.3 g/dL (1.3-3.2); Glucose 129 mg/dl (74-100); Potassium 4.2 mmoL/L (3.5-5.1); Sodium 137 mmol/L (136-145); Total Protein,Serum 7.9 g/dl (6.3-8.2)
[2024-07-30 18:41] LABS: D-Dimer 0.51 ug/mL (0.0-0.5)
[2024-07-30] MEDS: MAGNESIUM SULFATE IN WATER 2 GM/50 ML PIGGYBACK IV (18:45)
[2024-07-30] MEDS: METHYLPREDNISOLONE SOD SUCC 125MG VIAL 125 MG IV (18:45)
[2024-07-30 18:46] LABS: Activated Partial Thrombo Time 30.8 seconds (22.8-30.6); Prothrombin Time 10.2 seconds (10.1-12.5)
[2024-07-30] MEDS: IPRATROPIUM/ALBUTEROL 3 ML NEB 9 ML IH (18:46)
[2024-07-30 18:47] LABS: NT Pro Brain Natriuretic Pep. 76.4 pg/mL (0-125)
[2024-07-30 18:47] LABS: Lactate Venous 1.1 mmol/L (0.4-2.0); VBG Base Excess 1.9 mmol/L (-2.4-2.3); VBG HCO3 29.9 mmol/L (23-30); VBG PCO2 77.6 mmol/L (35-51); VBG PO2 64.7 mmol/L (28-40); VBG Total CO2 32.3 mmol/L (23-27)
--- NOTE | 2024-07-30 19:27 | XR_ITS ---
PROCEDURE INFORMATION: Exam: XR Chest Exam date and time: 07/30/2024 7:38 PM Age: 69 years old Clinical indication: Other: Respiratory distress TECHNIQUE: Imaging protocol: Radiologic exam of the chest. Views: 1 view. COMPARISON: CT ANGIO CHEST PE PROTOCOL 06/10/2024 4:10 PM FINDINGS: Tubes, catheters and devices: Central venous catheter tip projected over proximal superior vena cava. Lungs: Underlying centrilobular emphysematous changes. Benign calcified nodule in left lower lobe. Left basilar scarring. No consolidation. Pleural spaces: Unremarkable. No pleural effusion. No pneumothorax. Heart/Mediastinum: Unremarkable. No cardiomegaly. Bones/joints: Unremarkable. IMPRESSION: No acute findings.
[2024-07-30 19:36] LABS: Troponin I < 0.01 ng/ml (0.00-0.034)
[2024-07-30] MEDS: CEFTRIAXONE 1 GM 1 GM in 0.9 % SODIUM CHLORIDE 50 ML IV (19:39)
[2024-07-30] MEDS: AZITHROMYCIN 500 MG in 0.9 % SODIUM CHLORIDE 250 ML 250 MG IV (20:07)
--- NOTE | 2024-07-30 20:10 | PC.NURSE ---
contacted house for bed assignment. dx: respiratory failure, hospitalist admit
--- NOTE | 2024-07-30 20:28 | PC.NURSE ---
called report to carlos del valle on 2nd floor and answered all questions
[2024-07-30] MEDS: ONDANSETRON 4MG/2ML VIAL 4 MG IV (20:43)
--- NOTE | 2024-07-30 20:44 | PC.NURSE ---
Patient placed on bipap at this time per request due to complaint of being unable to breathe. Patient requests to wear a nonrebreather mask and was educated on effectiveness of oxygen support. Patient agreeable to wear bipap at this time.
--- NOTE | 2024-07-30 20:45 | P.HP_ITS ---
History of Present Illness *Admission Date: 07/30/24 *Reason for visit:: Dyspnea *History of present illness: This is a 69-year-old male the presents to [facility] emergency department with concerns of dyspnea not improving with home oxygen. He is accompanied by his . Upon presentation to the ED his O2 sats were in the low 80s. His past medical history is significant for severe COPD with previous FEV1 22%, ongoing tobacco dependence, metastatic lung cancer to liver and hypertension. He denies associated fever, chills, purulent cough or hemoptysis. He reports no associated confusion, falls or syncope. In the ED his VBG identified pCO2 78. He identified dyspnea improvement with BiPAP therapy. [facility] Medical History Bilateral impacted cerumen Tinnitus Hearing loss Lung nodule Hilar lymphadenopathy Pneumonia Sleep apnea Emphysema/COPD Chronic cough Bronchitis Allergies History of anemia Lung collapse Nodule of right lung Tobacco abuse disorder Tobacco abuse counseling Small cell lung cancer Smoking greater than 30 pack years Chronic hypoxemic respiratory failure COPD (chronic obstructive pulmonary disease) Dyspnea on exertion On home O2 Sinus problem History of chemotherapy History of radiation therapy Personal history of arthritis History of lung disease Hyperlipemia Cancer Asthma Essential hypertension COPD exacerbation Surgical History History of insertion of tunneled central venous catheter (CVC) with port History of colonoscopy Hx of cardiac catheterization Normal coronary arteries History of sinus surgery Family History Other Cancer Diabetes Social History (Updated 07/30/24 @ 22:32 by Mary Grace Lopez RN) Smoking Status: Smoker, status unknown tobacco type: cigarettes packs per day: 1 years smoked: 50 alcohol intake: former substance use type: denies use current occupational status: retired and disabled Travel in the last 8 weeks: None household members: spouse housing: house caffeine: Yes Review of Systems Review of Systems Review of systems:: pertinent systems reviewed and negative unless documented below Meds Home Medications and Allergies Home Medications ?Medication ?Instructions ?Recorded ?Confirmed ?Type trazodone 150 mg tablet 150 mg PO DAILY sleep 07/03/22 07/31/24 History fluticasone fur. 100 mcg-umeclid 1 inh inhalation DAILY Copd 01/05/23 07/31/24 History 62.5 mcg-vilant 25 mcg inhalat.powder (Trelegy Ellipta) aspirin 325 mg tablet 325 mg PO DAILY Heart Disease 05/11/23 07/31/24 History propranolol 10 mg tablet 10 mg PO BID 12/16/23 07/31/24 History albuterol sulfate 90 mcg/actuation 2 puff inhalation QIDP PRN 06/11/24 07/31/24 History aerosol inhaler Shortness Of Breath Or Wheezing ipratropium 0.5 mg-albuterol 3 mg 3 ml inhalation QIDP PRN Shortness 06/12/24 07/31/24 Rx (2.5 mg base)/3 mL nebulization Of Breath Or Wheezing 30 days #180 soln mL prednisone 20 mg tablet 40 mg (2 x 20 mg) PO DAILY 5 days 06/12/24 07/31/24 Rx #10 tabs New Prescriptions to Start Prescriptions: Allergies Allergy/AdvReac Type Severity Reaction Status Date / Time silver Allergy Severe Rash Verified 05/25/24 09:23 [From Tegaderm AG Mesh] Penicillins [PENICILLINS] Allergy Mild Verified 05/25/24 09:23 amitriptyline AdvReac Intermediate gi upset Verified 05/25/24 09:23 adhesive AdvReac Verified 05/25/24 09:23 hydrocodone AdvReac Verified 05/25/24 09:23 Exam Data for Last 24 hours Vital signs and Labs for Last 24 Hours: Temp Pulse Resp BP Pulse Ox O2 Del Method O2 Flow Rate 98.5 F 92 H 21 157/87 H 98 Nasal Cannula 3 07/30/24 20:21 07/30/24 20:21 07/30/24 20:21 07/30/24 20:21 07/30/24 20:00 07/30/24 20:21 07/30/24 20:21 Laboratory Results - last 24 hr 07/30/24 18:18: WBC 5.1, RBC 3.82 L, Hgb 12.0 L, Hct 38.1 L, MCV 99.8 H, MCH 31.5 H, MCHC 31.6 L, RDW 14.3, Plt Count 292, MPV 6.9 L, Neut % (Auto) 65.5, Lymph % (Auto) 15.0, [place] % (Auto) 8.3, Eos % (Auto) 10.2, Baso % (Auto) 0.9, Neut # (Auto) 3.4, Lymph # (Auto) 0.8, [place] # (Auto) 0.4, Eos # (Auto) 0.5 H, Baso # (Auto) 0.1, PT 10.2, INR 0.90, APTT 30.8 H, D-Dimer 0.51 H, Sodium 137, Potassium 4.2, Chloride 99, Carbon Dioxide 32 H, Anion Gap 10.2, BUN 6 L, Creatinine 0.80, Estimated Creat Clear 56, Estimated GFR 96, Est GFR ( Amer) 117, Glucose 129 H, Calcium 6.1 L, Total Bilirubin 0.6, AST 59, ALT 25, Alkaline Phosphatase 88, Troponin I < 0.01, NT-Pro-B Natriuret Pep 76.4, Total Protein 7.9 D, Albumin 4.6, Globulin 3.3 H, Albumin/Globulin Ratio 1.4 07/30/24 18:46: VBG pH 7.20 L, VBG pCO2 77.6 H, VBG pO2 64.7 H, VBG HCO3 29.9, VBG Total CO2 32.3 H, VBG O2 Saturation 88.0 H, VBG Base Excess 1.9, VBG Lactic Acid 1.1 I & O for Last 24 hours: Intake & Output 07/27/24 07/28/24 07/29/24 07/30/24 23:59 23:59 23:59 23:59 Weight 55.338 kg Constitutional Constitutional: mild distress, thin, chronically ill appearing and cooperative *Routine HEENT Exam Head: Present normocephalic Eye: Present EOMI and PERRL ENT: Present mucous membranes moist and nares patent *Routine Neck Exam Neck: Present trachea midline; Absent JVD or lymphadenopathy *Routine Respiratory Exam Respiratory: Present rhonchi, wheezes, diminished air movement and symmetric chest movement *Routine Cardiovascular Exam Cardiovascular: Present RRR *Routine Abdominal Exam Abdominal: Present soft and normoactive bowel sounds; Absent tenderness *Routine Rectal Exam Rectal:: deferred *Routine Genitalia Exam Genitalia:: deferred *Routine Extremities Exam Extremities: Present full ROM; Absent edema *Routine Skin Exam Skin: Present intact; Absent rash *Routine Neurological Exam Neurological: Present alert, oriented X3, moving all extremities, vision grossly intact and hearing grossly intact; Absent sensory deficit or motor deficit Routine Psychiatric Exam Psychiatric: Present normal affect, normal thought process, cooperative, good insight, good judgment and anxious Assessment and Plan *Assessment and plan (1) Acute on chronic respiratory failure with hypoxia and hypercapnia: Status: Acute Category: Medical Code(s): J96.21 - Acute and chronic respiratory failure with hypoxia; J96.22 - Acute and chronic respiratory failure with hypercapnia (2) COPD exacerbation: Status: Acute Category: Medical Code(s): J44.1 - Chronic obstructive pulmonary disease with (acute) exacerbation (3) Tobacco dependence: Status: Acute Category: Medical Code(s): F17.200 - Nicotine dependence, unspecified, uncomplicated (4) Metastatic lung cancer (metastasis from lung to other site): Status: Acute Category: Medical Code(s): C34.90 - Malignant neoplasm of unspecified part of unspecified bronchus or lung (5) Cachexia: Status: Acute Category: Medical Code(s): R64 - Cachexia Plan This is a 69-year-old male with chronic lung disease who became dyspneic and presented to the ED. VBG identified hypercapnia. His dyspnea resolved with NIPPV therapy. Problems addressed as follows: Acute on chronic respiratory failure with hypoxia and hypercapnia COPD exacerbation Tobacco dependence Metastatic lung cancer Cachexia with BMI 17 Severe protein calorie malnutrition Pulse oximetry monitoring Oxygen therapy to maintain appropriate oxygen saturations Home oxygen requirement 3 L NIPPV therapy Pulmonology consult ED chest x-ray with no acute changes or effusions Makenzie/Sis inhalation therapy as needed ICS/LABA/LAMA inhalation therapy Prednisone therapy PPI therapy Nutritional counseling and supplementation RD consult Parenterally administered controlled substance for comfort care Poor prognoses identified Goals of care conversation with CODE STATUS DNR/DNI Paroxysmal SVT Dyspnea and oxygen requirements noted ECG with any reported chest pain Antiplatelet therapy Statin therapy Beta-so therapy VTE prophylaxis: Lovenox CODE STATUS: DNR/DNI POA: The length of stay for this patient will be 2 midnights or greater due to above diagnoses.
--- NOTE | 2024-07-30 21:00 | ECG_ITS ---
APPROVED REPORT Exam: Resting ECG HR:197 bpm ECG Measurements Heart Rate 197 AXES QRSd 102 QRS 109 QT 178 T 92 QTc 277 Conclusion Sinus tachycardia RIGHT AXIS DEVIATION [QRS AXIS > 100] POSSIBLE INFERIOR MYOCARDIAL INFARCTION , PROBABLY OLD [30 ms Q WAVE IN II/aVF] CRITICAL TEST RESULT INTERPRETATION BASED ON A DEFAULT AGE OF 40 YEARS Hyperacute T waves, no STEMI Electronically signed by : GERALD LORENZANA, 07/31/2024 06:56:13
--- NOTE | 2024-07-30 21:20 | PC.NURSE ---
pt arrived to unit @ 2107 on 4L of O2. Pt states he is hungry and refuses to put bi pap until after he eats, education provided to pt on benefits of bi-pap. sandwich, chips and soda given to pt. Notified RT of refusal, will attempt again after pt eats and is more settled.
--- NOTE | 2024-07-30 21:55 | PC.NURSE ---
Addendum entered by Mary Grace Lopez RN 07/31/24 00:13: 2130: pt telemetry shows tachycardia due to picking up twaves. EKG requested from RT at this time 2154: Pt EKG shows SVT with artifact, contacted Dr. Marvin with results. came to bedside and gave verbal order to give Metoprolol Tartrate 5 mg IV push and 25 mg PO, repeated and verified order back to MD. Original Note: 2154: Pt EKG shows SVT with artifact, contacted Dr. Marvin with results. came to bedside and gave verbal order to give Metoprolol Tartrate 5 mg IV push and 25 mg PO, repeated and verified order back to MD.
[2024-07-30] MEDS: LORazepam 2MG/ML VIAL 1 MG IV (22:00)
[2024-07-30] MEDS: NICOTINE 21MG/24HR PATCH 21 MG TD (22:01)
[2024-07-30] MEDS: predniSONE 20MG TAB 40 MG PO (22:01)
[2024-07-30] MEDS: METOPROLOL TARTRATE 5MG/5ML VIAL 5 MG IV (22:01)
[2024-07-30] MEDS: PANTOPRAZOLE 40MG TABLET 40 MG PO (22:01)
[2024-07-30] MEDS: ENOXAPARIN 40MG/0.4ML SYRINGE 40 MG SQ (22:01)
[2024-07-30 22:03] LABS: Troponin I < 0.01 ng/ml (0.00-0.034)
--- NOTE | 2024-07-30 23:00 | ECG_ITS ---
APPROVED REPORT Exam: Resting ECG HR:149 bpm ECG Measurements Heart Rate 149 AXES HI 170 P 86 QRSd 117 QRS 74 QT 236 T 79 QTc 321 Conclusion SINUS TACHYCARDIA WITH FREQUENT VENTRICULAR PREMATURE COMPLEXES, POSSIBLE ATRIAL FLUTTER MODERATE INTRAVENTRICULAR CONDUCTION DELAY [110+ ms QRS DURATION] NONSPECIFIC ST & T-WAVE ABNORMALITY ABNORMAL RHYTHM ECG UNCONFIRMED REPORT Electronically signed by : Main Carrington MD 07/31/2024 16:02:24
[2024-07-31] VITALS (18 sets, daily range): BP systolic 111–148; BP diastolic 68–86; PULSE 70–100; RESP 16–22; TEMP 36.4–37.1; O2SAT 90–100; BMI 17.3
[2024-07-31 00:47] LABS: Troponin I 0.03 ng/ml (0.00-0.034)
[2024-07-31] MEDS: LORazepam 2MG/ML VIAL 1 MG IV (03:00)
[2024-07-31] MEDS: SODIUM CHLORIDE 0.9% 10ML VIAL 10 ML IV (03:01)
--- NOTE | 2024-07-31 05:30 | PC.NURSE ---
Pt is alert and oriented x4 and currently tolerating bi pap at this time. Pt has became anxious at times and removed bi pap and telemetry leads, pt was treated per MAR for anxiety. Staff educates pt on importance of wearing bi pap. Pt is calm and resting at this time, pt denies needs and pain.
[2024-07-31 06:51] LABS: Magnesium 1.8 mg/dl (1.6-2.3)
[2024-07-31 08:36] LABS: Chloride 97 mmol/L (98-107); Potassium 4.5 mmoL/L (3.5-5.1); Sodium 138 mmol/L (136-145)
[2024-07-31 08:39] LABS: Anion Gap 10.5 mEq/L (5-15); Blood Urea Nitrogen 10 mg/dl (9-20); Carbon Dioxide 35 mmol/L (22.0-30.0); Creatinine Clearance Estimated 56 mL/min (50-200); Estimated Glomerular Filt Rate 134 ml/min (>60); GFR (African American) 163 ML/MIN (>60)
[2024-07-31 08:40] LABS: Calcium 5.9 mg/dl (8.4-10.2); Glucose 142 mg/dl (74-100)
[2024-07-31] MEDS: DOCUSATE SODIUM 100 MG CAPSULE PO (08:46)
[2024-07-31] MEDS: METOPROLOL SUCCINATE XL 25MG TABLET 25 MG PO (08:46)
[2024-07-31] MEDS: predniSONE 20MG TAB 40 MG PO (08:46)
[2024-07-31] MEDS: ASPIRIN EC 81MG TABLET 81 MG PO (08:46)
[2024-07-31] MEDS: ENOXAPARIN 40MG/0.4ML SYRINGE 40 MG SQ (08:47)
--- NOTE | 2024-07-31 09:40 | HMH.PHAINT1 ---
Pharmacy Intervention Comments: MEDICATION RECONCILIATION COMPLETE USING EXTERNAL PHARMACY FILL HISTORY AND RECENT HOSPITAL DISCHARGE NOTE (06/2024)
[2024-07-31] MEDS: IPRATROPIUM/ALBUTEROL 3 ML NEB IH ×5 (10:00→21:21)
[2024-07-31] MEDS: BUDESONIDE 0.5MG/2ML NEB 0.5 MG IH ×2 (10:00→18:29)
[2024-07-31 14:15] LABS: Lactate Venous 1.2 mmol/L (0.4-2.0); VBG HCO3 30.9 mmol/L (23-30); VBG Oxygen Saturation 97.9 % (50-70); VBG PCO2 51.8 mmol/L (35-51); VBG PH 7.39 mmol/L (7.31-7.41); VBG Total CO2 32.5 mmol/L (23-27)
[2024-07-31] MEDS: CALCIUM CARB + VIT D 500MG TAB 500 MG PO (17:24)
--- NOTE | 2024-07-31 18:31 | PC.NURSE ---
pt is a&ox4. pt currently on 2l nc. at bedside. pt has had no complaints this shift. no new orders at this time. call light within reach.
--- NOTE | 2024-07-31 19:15 | P.PN_ITS ---
Subjective *Date: 07/31/24 *Time: 19:15 Interval history: Patient was sitting in bed this morning with increased work of breathing, but not acute distress. He states BiPAP overnight was not very comfortable. Denies chest pain. Exam Data for Last 24 hours Vital signs and Labs for Last 24 Hours: Temp Pulse Resp BP Pulse Ox O2 Del Method O2 Flow Rate 97.8 F 83 18 136/73 96 Nasal Cannula 2 07/31/24 16:00 07/31/24 19:12 07/31/24 16:00 07/31/24 16:00 07/31/24 16:00 07/31/24 19:13 07/31/24 19:13 FiO2 28 07/31/24 19:13 Laboratory Results - last 24 hr 07/30/24 18:18: Troponin I < 0.01 07/30/24 21:30: Troponin I < 0.01 07/31/24 00:20: Troponin I 0.03 07/31/24 05:46: Magnesium 1.8 07/31/24 08:12: Sodium 138, Potassium 4.5, Chloride 97 L, Carbon Dioxide 35 H, Anion Gap 10.5, BUN 10 D, Creatinine 0.60 L D, Estimated Creat Clear 56, Estimated GFR 134, Est GFR ( Amer) 163 D, Glucose 142 H, Calcium 5.9 L 07/31/24 09:09: VBG pH 7.39, VBG pCO2 51.8 H, VBG pO2 99.0 H, VBG HCO3 30.9 H, VBG Total CO2 32.5 H, VBG O2 Saturation 97.9 H, VBG Base Excess 6.0 H, VBG La ctic Acid 1.2 I & O for Last 24 hours: Intake & Output 07/28/24 07/29/24 07/30/24 07/31/24 23:59 23:59 23:59 23:59 Intake Total 1220 / 1220 Output Total 0 / 0 500 / 500 Balance 0 / 120 720 / 720 Weight 54.941 kg 54.941 kg Microbiology Reports for the Last 24 Hours: Microbiology 07/31/24 14:00 Sputum - Expectorated Sputum Gram Stain - Final Constitutional Constitutional: no acute distress *Routine HEENT Exam Head: Present normocephalic Eye: Present EOMI and PERRL ENT: Present mucous membranes moist *Routine Neck Exam Neck: Present supple; Absent lymphadenopathy *Routine Respiratory Exam Respiratory: Present wheezes; Absent CTA bilaterally Comments: Moderate bilateral diffuse wheezing. *Routine Cardiovascular Exam Cardiovascular: Present RRR *Routine Abdominal Exam Abdominal: Present soft and normoactive bowel sounds; Absent tenderness *Routine Extremities Exam Extremities: Absent cyanosis, clubbing or edema *Routine Skin Exam Skin: Present warm; Absent rash *Routine Neurological Exam Neurological: Present alert and oriented X3 Assessment and Plan *Assessment and plan (1) Acute on chronic respiratory failure with hypoxia and hypercapnia: Status: Acute Category: Medical Code(s): J96.21 - Acute and chronic respiratory failure with hypoxia; J96.22 - Acute and chronic respiratory failure with hypercapnia (2) COPD exacerbation: Status: Acute Category: Medical Code(s): J44.1 - Chronic obstructive pulmonary disease with (acute) exacerbation (3) Tobacco dependence: Status: Acute Category: Medical Code(s): F17.200 - Nicotine dependence, unspecified, uncomplicated (4) Metastatic lung cancer (metastasis from lung to other site): Status: Acute Category: Medical Code(s): C34.90 - Malignant neoplasm of unspecified part of unspecified bronchus or lung (5) Cachexia: Status: Acute Category: Medical Code(s): R64 - Cachexia Plan This is a 69-year-old male with chronic lung disease who became dyspneic and presented to the ED. VBG identified hypercapnia. His dyspnea resolved with NIPPV therapy. Problems addressed as follows: Acute on chronic respiratory failure with hypoxia and hypercapnia COPD exacerbation Tobacco dependence Metastatic lung cancer Cachexia with BMI 17 Severe protein calorie malnutrition Continues to have moderate increased work of breathing. Pulse oximetry monitoring Oxygen therapy to maintain appropriate oxygen saturations Home oxygen requirement 3 L NIPPV therapy Pulmonology consult ED chest x-ray with no acute changes or effusions DuoNebs scheduled and as needed. Pulmicort twice daily Prednisone therapy PPI therapy Nutritional counseling and supplementation RD consult Parenterally administered controlled substance for comfort care Poor prognoses identified Goals of care conversation with CODE STATUS DNR/DNI Paroxysmal SVT Dyspnea and oxygen requirements noted ECG with any reported chest pain Antiplatelet therapy Statin therapy Beta-so therapy VTE prophylaxis: Lovenox CODE STATUS: DNR/DNI POA: The length of stay for this patient will be 2 midnights or greater due to above diagnoses.
[2024-07-31 20:16] LABS: Basophils % 0.1 % (0.1-2.0); Eosinophils % 0.2 % (0.1-12.0); Hematocrit 35.7 % (42.0-52.0); Hemoglobin 11.5 g/dL (14.1-18.0); Lymphocytes # 0.7 K/mm3 (0.7-4.5); Lymphocytes % 14.8 % (10-50); Mean Corpuscular HGB Conc 32.1 g/dL (31.8-35.4); Mean Corpuscular Hemoglobin 31.7 pg (27.0-31.2); Mean Corpuscular Volume 98.6 fl (80-94); Mean Platelet Volume 6.8 fl (7.4-10.4); Monocytes # 0.6 K/mm3 (0.1-1.0); Monocytes % 12.5 % (1.7-9.3); Neutrophils # 3.6 K/mm3 (1.8-7.8); Neutrophils % 72.3 % (37.0-80.0); Platelet Count 279 K/mm3 (142-424); Red Blood Count 3.63 M/mm3 (4.60-6.20); Red Cell Distribution Width 14.4 % (11.5-17.5)
[2024-07-31] MEDS: PANTOPRAZOLE 40MG TABLET 40 MG PO (20:47)
[2024-07-31] MEDS: TRAZODONE 50MG TABLET 150 MG PO (20:47)
[2024-07-31] MEDS: ATORVASTATIN 40MG TABLET 40 MG PO (20:47)
[2024-07-31] MEDS: ASPIRIN 325MG TABLET 325 MG PO (21:18)
[2024-08-01] VITALS (11 sets, daily range): BP systolic 119–153; BP diastolic 67–88; PULSE 58–110; RESP 16–22; TEMP 36.4–37.3; O2SAT 92–98; BMI 17.9
--- NOTE | 2024-08-01 05:11 | PC.NURSE ---
Pt is A&Ox4 and currently tolerating 2.5 L at this time. Pt did c/o a IQBAL early in this shift and was treated per MAR, however pt has rested well this shift. Pt denies pain and needs and has had no acute changes this shift to note.
[2024-08-01] MEDS: BUDESONIDE 0.5MG/2ML NEB 0.5 MG IH ×2 (06:21→18:25)
[2024-08-01] MEDS: IPRATROPIUM/ALBUTEROL 3 ML NEB IH ×5 (06:21→22:29)
[2024-08-01 07:02] LABS: Chloride 96 mmol/L (98-107); Potassium 3.4 mmoL/L (3.5-5.1); Sodium 137 mmol/L (136-145)
[2024-08-01 07:05] LABS: Anion Gap 5.4 mEq/L (5-15); Blood Urea Nitrogen 13 mg/dl (9-20); Calcium 6.1 mg/dl (8.4-10.2); Carbon Dioxide 39 mmol/L (22.0-30.0); Creatinine Clearance Estimated 58 mL/min (50-200); Estimated Glomerular Filt Rate 112 ml/min (>60); GFR (African American) 136 ML/MIN (>60); Glucose 105 mg/dl (74-100)
[2024-08-01] MEDS: ENOXAPARIN 40MG/0.4ML SYRINGE 40 MG SQ (08:37)
[2024-08-01] MEDS: METOPROLOL SUCCINATE XL 25MG TABLET 25 MG PO (08:37)
[2024-08-01] MEDS: predniSONE 20MG TAB 40 MG PO (08:37)
[2024-08-01] MEDS: DOCUSATE SODIUM 100 MG CAPSULE PO (08:37)
[2024-08-01] MEDS: ASPIRIN EC 81MG TABLET 81 MG PO (08:37)
[2024-08-01 08:49] LABS: Lactate Venous 1.3 mmol/L (0.4-2.0); VBG Base Excess 9.3 mmol/L (-2.4-2.3); VBG HCO3 34.5 mmol/L (23-30); VBG Oxygen Saturation 85.3 % (50-70); VBG PCO2 60.3 mmol/L (35-51); VBG PH 7.38 mmol/L (7.31-7.41); VBG PO2 51.1 mmol/L (28-40); VBG Total CO2 36.3 mmol/L (23-27)
--- NOTE | 2024-08-01 09:41 | P.CONS_ITS ---
History of Present Illness History of present illness: Mr. Simmons is a 69-year-old male greater than [id number] smoking history recurrent small cell lung cancer, COPD chronic hypoxic respiratory failure on 3 L home nasal cannula oxygen supplementation and triple inhaler therapy presented to ER with worsening respiratory distress the venous blood question hypercarbic respiratory failure needing noninvasive ventilatory therapy and pulmonary was called for further evaluation and management. [facility] Disclaimer: The information contained in this section may have been updated after the patient was seen, as this information can be updated by other users. Medical History Bilateral impacted cerumen Tinnitus Hearing loss Lung nodule Hilar lymphadenopathy Pneumonia Sleep apnea Emphysema/COPD Chronic cough Bronchitis Allergies History of anemia Lung collapse Nodule of right lung Tobacco abuse disorder Tobacco abuse counseling Small cell lung cancer Smoking greater than 30 pack years Chronic hypoxemic respiratory failure COPD (chronic obstructive pulmonary disease) Dyspnea on exertion On home O2 Sinus problem History of chemotherapy History of radiation therapy Personal history of arthritis History of lung disease Hyperlipemia Cancer Asthma Essential hypertension COPD exacerbation Surgical History History of insertion of tunneled central venous catheter (CVC) with port History of colonoscopy Hx of cardiac catheterization Normal coronary arteries History of sinus surgery Family History Other Cancer Diabetes Social History (Updated 07/30/24 @ 22:32 by Mary Grace Lopez RN) Smoking Status: Smoker, status unknown tobacco type: cigarettes packs per day: 1 years smoked: 50 alcohol intake: former substance use type: denies use current occupational status: retired and disabled Travel in the last 8 weeks: None household members: spouse housing: house caffeine: Yes Review of Systems Constitutional Constitutional: Reports anorexia, Reports body ache(s) and Reports fatigue Eyes Eyes: Denies eye discharge, Denies dry eyes, Denies irritation and Denies itchy eyes ENT Ears, Nose, Mouth, and Throat: Denies epistaxis, Denies facial pain, Denies lip swelling and Denies throat swelling *Cardiovascular Cardiovascular: Reports dyspnea, Reports dyspnea on exertion and Reports orthopnea *Respiratory Respiratory: Reports change in phlegm color, Reports chest congestion, Reports cough, Reports dyspnea, Reports dyspnea on exertion, Reports excessive phlegm production and Reports wheezing *Gastrointestinal Gastrointestinal: Denies abdominal pain, Denies belching and Denies cramping *Musculoskeletal Musculoskeletal: Reports back pain, Reports myalgias and Reports other (No small joint swelling or Pain) Psychiatric Psychiatric: Denies homicidal ideation and Denies suicidal ideation Endocrine Endocrine: Reports fatigue and Denies heat intolerance Hematologic/Lymphatic Hematologic/Lymphatic: Denies easy bleeding and Denies lymphadenopathy Allergic/Immunologic Allergic/Immunologic: Denies itchy eyes, Denies lip swelling, Denies throat swelling and Reports wheezing Pulmonology Exam Inpatient Vital signs and Labs for Last 24 Hours: Temp Pulse Resp BP Pulse Ox O2 Del Method O2 Flow Rate 98.4 F 99 H 16 134/73 98 Nasal Cannula 2.5 08/01/24 08:00 08/01/24 08:00 08/01/24 08:00 08/01/24 08:00 08/01/24 08:00 08/01/24 09:00 08/01/24 09:00 FiO2 28 07/31/24 19:13 Laboratory Results - last 24 hr 07/31/24 09:09: VBG pH 7.39, VBG pCO2 51.8 H, VBG pO2 99.0 H, VBG HCO3 30.9 H, V BG Total CO2 32.5 H, VBG O2 Saturation 97.9 H, VBG Base Excess 6.0 H, VBG Lactic Acid 1.2 07/31/24 19:40: WBC 5.0, RBC 3.63 L, Hgb 11.5 L, Hct 35.7 L, MCV 98.6 H, MCH 31.7 H, MCHC 32.1, RDW 14.4, Plt Count 279, MPV 6.8 L, Neut % (Auto) 72.3, Lymph % (Auto) 14.8, [place] % (Auto) 12.5 H, Eos % (Auto) 0.2, Baso % (Auto) 0.1, Neut # (Auto) 3.6, Lymph # (Auto) 0.7, [place] # (Auto) 0.6, Eos # (Auto) 0.0, Baso # (Auto) 0.0 08/01/24 06:00: VBG pH 7.38, VBG pCO2 60.3 H, VBG pO2 51.1 H, VBG HCO3 34.5 H, V BG Total CO2 36.3 H, VBG O2 Saturation 85.3 H, VBG Base Excess 9.3 H, VBG Lactic Acid 1.3 08/01/24 06:32: Sodium 137, Potassium 3.4 L D, Chloride 96 L, Carbon Dioxide 39 H, Anion Gap 5.4, BUN 13 D, Creatinine 0.70, Estimated Creat Clear 58, Estimated GFR 112, Est GFR ( Amer) 136, Glucose 105 H D, Calcium 6.1 L I & O for Labs for Last 24 Hours: Intake & Output 07/29/24 07/30/24 07/31/24 08/01/24 23:59 23:59 23:59 23:59 Intake Total 1220 / 1460 240 / 240 Output Total 0 / 0 500 / 500 0 / 0 Balance 0 / 120 720 / 960 240 / 240 Weight 121 lb 2 oz 121 lb 1.987 oz 125 lb 7 oz Microbiology Reports for the Last 24 Hours: Microbiology 07/31/24 14:00 Sputum - Expectorated Sputum Gram Stain - Final Constitutional: Present moderate distress Head: Present normocephalic and atraumatic ENT: Present normal exam, normal oropharynx and mucous membranes moist Neck: Present normal inspection and full ROM Respiratory: Present prolonged expiratory phase, respiratory distress, rhonchi, wheezes and diminished air movement; Absent able to speak in complete sentences Cardiac: Present S1/S2, Tachycardia and radial pulses present GI: Present soft and distention; Absent tenderness or guarding Skin: Present intact; Absent cyanosis or jaundice Neuro: Present alert, awake and oriented x 3 Extremities: Present normal inspection; Absent clubbing or cyanosis Psychiatric: Present normal affect and cooperative Meds Home Medications and Allergies Home Medications ?Medication ?Instructions ?Recorded ?Confirmed ?Type trazodone 150 mg tablet 150 mg PO HS 07/03/22 07/31/24 History fluticasone fur. 100 mcg-umeclid 1 inh inhalation DAILY Copd 01/05/23 07/31/24 History 62.5 mcg-vilant 25 mcg inhalat.powder (Trelegy Ellipta) aspirin 325 mg tablet 325 mg PO DAILY 05/11/23 07/31/24 History propranolol 10 mg tablet 10 mg PO BID 12/16/23 07/31/24 History albuterol sulfate 90 mcg/actuation 2 puff inhalation QIDP PRN 06/11/24 07/31/24 History aerosol inhaler Shortness Of Breath Or Wheezing ipratropium 0.5 mg-albuterol 3 mg 3 ml inhalation QIDP PRN Shortness 06/12/24 07/31/24 Rx (2.5 mg base)/3 mL nebulization Of Breath Or Wheezing 30 days #180 soln mL azelastine 137 mcg (0.1 %) nasal 2 spray intranasal BID 07/31/24 07/31/24 History spray azithromycin 250 mg tablet 250 mg PO MOWEFR 07/31/24 07/31/24 History New Prescriptions to Start Prescriptions: Allergies Allergy/AdvReac Type Severity Reaction Status Date / Time silver Allergy Severe Rash Verified 05/25/24 09:23 [From Tegaderm AG Mesh] Penicillins [PENICILLINS] Allergy Mild Verified 05/25/24 09:23 amitriptyline AdvReac Intermediate gi upset Verified 05/25/24 09:23 adhesive AdvReac Verified 05/25/24 09:23 hydrocodone AdvReac Verified 05/25/24 09:23 Results Laboratory Findings 07/31/24 19:40 08/01/24 06:32 PT/INR, D-dimer PT 10.2 seconds (10.1-12.5) 07/30/24 18:18 INR 0.90 (0.9-1.1) 07/30/24 18:18 D-Dimer 0.51 ug/mL (0.0-0.5) H 07/30/24 18:18 Abnormal lab findings: Abnormal Labs 07/30/24 07/30/24 07/31/24 18:18 18:46 08:12 RBC 3.82 L Hgb 12.0 L Hct 38.1 L MCV 99.8 H MCH 31.5 H MCHC 31.6 L MPV 6.9 L [place] % (Auto) Eos # (Auto) 0.5 H APTT 30.8 H D-Dimer 0.51 H VBG pH 7.20 L VBG pCO2 77.6 H VBG pO2 64.7 H VBG HCO3 VBG Total CO2 32.3 H VBG O2 Saturation 88.0 H VBG Base Excess Potassium Chloride 97 L Carbon Dioxide 32 H 35 H BUN 6 L Creatinine 0.60 L D Glucose 129 H 142 H Calcium 6.1 L 5.9 L Globulin 3.3 H 07/31/24 07/31/24 08/01/24 09:09 19:40 06:00 RBC 3.63 L Hgb 11.5 L Hct 35.7 L MCV 98.6 H MCH 31.7 H MCHC MPV 6.8 L [place] % (Auto) 12.5 H Eos # (Auto) APTT D-Dimer VBG pH VBG pCO2 51.8 H 60.3 H VBG pO2 99.0 H 51.1 H VBG HCO3 30.9 H 34.5 H VBG Total CO2 32.5 H 36.3 H VBG O2 Saturation 97.9 H 85.3 H VBG Base Excess 6.0 H 9.3 H Potassium Chloride Carbon Dioxide BUN Creatinine Glucose Calcium Globulin 08/01/24 06:32 RBC Hgb Hct MCV MCH MCHC MPV [place] % (Auto) Eos # (Auto) APTT D-Dimer VBG pH VBG pCO2 VBG pO2 VBG HCO3 VBG Total CO2 VBG O2 Saturation VBG Base Excess Potassium 3.4 L D Chloride 96 L Carbon Dioxide 39 H BUN Creatinine Glucose 105 H D Calcium 6.1 L Globulin Assessment and Plan *Assessment and plan (1) Acute on chronic respiratory failure with hypoxia and hypercapnia: Status: Acute Category: Medical Code(s): J96.21 - Acute and chronic respiratory failure with hypoxia; J96.22 - Acute and chronic respiratory failure with hypercapnia (2) Acute exacerbation of chronic obstructive pulmonary disease: Status: Acute Category: Medical Code(s): J44.1 - Chronic obstructive pulmonary disease with (acute) exacerbation Plan Mr. Simmons is a 69-year-old male greater than [id number] smoking history recurrent small cell lung cancer, COPD chronic hypoxic respiratory failure on 3 L home nasal cannula oxygen supplementation and triple inhaler therapy presented to ER with worsening respiratory distress the venous blood question hypercarbic respiratory failure needing noninvasive ventilatory therapy and pulmonary was called for further evaluation and management. Venous blood gas upon admission. pH of 7.20 and pCO2 77.6. Subsequent blood cultures showed improvement. Afebrile. Hemodynamically stable. Chest x-ray upon admission hyperinflated lungs, no dense consolidation/airspace disease changes noted. No evidence of leukocytosis. Patient was initiated on azithromycin, DuoNebs every 4 hours, Pulmicort twice daily and prednisone 40 mg daily. On initial examination patient appeared to be in severe respiratory distress. At baseline clinic. Bilateral diffuse wheezing noted. Respiratory viral PCR panel positive for entero-/rhinovirus. Plan: -Continue DuoNebs every 4 hours along with Pulmicort every 12 scheduled -Incentive spirometry and flutter valve -Follow up sputum Gram stain culture results-continue azithromycin -Continue prednisone 40 mg daily to complete a total of 7-day course # Thank you for involving pulmonary in this patient care. Will continue to follow.
[2024-08-01 10:06] LABS: Adenovirus,PCR Not Detected (NotDetected); Bordetella Pertussis Not Detected (NotDetected); Chlamydophila Pneumoniae, PCR Not Detected (NotDetected); Coronavirus 19, PCR Not Detected (NotDetected); Coronavirus 229E Not Detected (NotDetected); Coronavirus NL63 Not Detected (NotDetected); Coronavirus OC43 Not Detected (NotDetected); Coronovirus HKU1,PCR Not Detected (NotDetected); Human Metapneumovirus Not Detected (NotDetected); Influenza A, PCR Not Detected (NotDetected); Influenza AH1, 2009 Not Detected (NotDetected); Influenza AH1, PCR Not Detected (NotDetected); Influenza AH3,PCR Not Detected (NotDetected); Influenza B, PCR Not Detected (NotDetected); Mycoplasma Pneumoniae, PCR Not Detected (NotDetected); Parainfluenza 1, PCR Not Detected (NotDetected); Parainfluenza 2, PCR Not Detected (NotDetected); Parainfluenza 3, PCR Not Detected (NotDetected); Parainfluenza 4, PCR Not Detected (NotDetected); Respiratory Syncytial Virus Not Detected (NotDetected)
[2024-08-01 11:26] LABS: Rhinovirus/Enterovirus Detected (NotDetected)
[2024-08-01] MEDS: NICOTINE 21MG/24HR PATCH 21 MG TD (12:32)
[2024-08-01] MEDS: AZITHROMYCIN 250MG TABLET 250 MG PO (13:40)
--- NOTE | 2024-08-01 15:43 | EXP.PN ---
Subjective *Date: 08/01/24 *Time: 15:49 Interval history: Patient states he feels a little bit better today but continues to have increased work of breathing, moderate to significant wheezing. He states he normally desaturates at home with 2 L. Denies chest pain. Exam Data for Last 24 hours Vital signs and Labs for Last 24 Hours: Temp Pulse Resp BP Pulse Ox O2 Del Method O2 Flow Rate 98.4 F 88 22 119/71 95 Nasal Cannula 2.5 08/01/24 12:00 08/01/24 13:24 08/01/24 12:00 08/01/24 12:00 08/01/24 12:00 08/01/24 15:00 08/01/24 15:00 FiO2 28 07/31/24 19:13 Laboratory Results - last 24 hr 07/31/24 19:40: WBC 5.0, RBC 3.63 L, Hgb 11.5 L, Hct 35.7 L, MCV 98.6 H, MCH 31.7 H, MCHC 32.1, RDW 14.4, Plt Count 279, MPV 6.8 L, Neut % (Auto) 72.3, Lymph % (Auto) 14.8, [place] % (Auto) 12.5 H, Eos % (Auto) 0.2, Baso % (Auto) 0.1, Neut # (Auto) 3.6, Lymph # (Auto) 0.7, [place] # (Auto) 0.6, Eos # (Auto) 0.0, Baso # (Auto) 0.0 08/01/24 06:00: VBG pH 7.38, VBG pCO2 60.3 H, VBG pO2 51.1 H, VBG HCO3 34.5 H, VBG Total CO2 36.3 H, VBG O2 Saturation 85.3 H, VBG Base Excess 9.3 H, VBG Lactic Acid 1.3 08/01/24 06:32: Sodium 137, Potassium 3.4 L D, Chloride 96 L, Carbon Dioxide 39 H, Anion Gap 5.4, BUN 13 D, Creatinine 0.70, Estimated Creat Clear 58, Estimated GFR 112, Est GFR ( Amer) 136, Glucose 105 H D, Calcium 6.1 L 08/01/24 10:00: Chlamy pneumoniae PCR Not detected, Adenovirus (PCR) Not detected, B. pertussis DNA (PCR) Not detected, Coronavirus OC43 (PCR) Not detected, Coronavirus HKU1 (PCR) Not detected, Coronavirus 229E (PCR) Not detected, SARS-CoV-2 (PCR) Not detected, Coronavirus NL63 (PCR) Not detected, Human Metapneumovir PCR Not detected, Influenza A (H1) PCR Not detected, Influ A (H1N1/09) PCR Not detected, Influenza A (H3) PCR Not detected, Influenza Type A (PCR) Not detected, Influenza Type B (PCR) Not detected, M. pneumoniae (PCR) Not detected, Parainfluenza 1 (PCR) Not detected, Parainfluenza 2 (PCR) Not detected, Parainfluenza 3 (PCR) Not detected, Parainfluenza 4 (PCR) Not detected, RSV (PCR) Not detected, Entero/Rhino (PCR) Detected A I & O for Last 24 hours: Intake & Output 07/29/24 07/30/24 07/31/24 08/01/24 23:59 23:59 23:59 23:59 Intake Total 1220 / 1460 240 / 240 Output Total 0 / 0 500 / 500 0 / 0 Balance 0 / 120 720 / 960 240 / 240 Weight 54.941 kg 54.941 kg 56.897 kg Microbiology Reports for the Last 24 Hours: Microbiology 07/31/24 14:00 Sputum - Expectorated Sputum Gram Stain - Final Constitutional Constitutional: no acute distress and cachectic *Routine HEENT Exam Head: Present normocephalic Eye: Present EOMI and PERRL ENT: Present mucous membranes moist *Routine Neck Exam Neck: Present supple; Absent lymphadenopathy *Routine Respiratory Exam Respiratory: Present wheezes; Absent CTA bilaterally Comments: Moderate bilateral diffuse wheezing. *Routine Cardiovascular Exam Cardiovascular: Present RRR *Routine Abdominal Exam Abdominal: Present soft and normoactive bowel sounds; Absent tenderness *Routine Extremities Exam Extremities: Absent cyanosis, clubbing or edema *Routine Skin Exam Skin: Present warm; Absent rash *Routine Neurological Exam Neurological: Present alert and oriented X3 Assessment and Plan *Assessment and plan (1) Acute on chronic respiratory failure with hypoxia and hypercapnia: Status: Acute Category: Medical Code(s): J96.21 - Acute and chronic respiratory failure with hypoxia; J96.22 - Acute and chronic respiratory failure with hypercapnia (2) COPD exacerbation: Status: Acute Category: Medical Code(s): J44.1 - Chronic obstructive pulmonary disease with (acute) exacerbation (3) Tobacco dependence: Status: Acute Category: Medical Code(s): F17.200 - Nicotine dependence, unspecified, uncomplicated (4) Metastatic lung cancer (metastasis from lung to other site): Status: Acute Category: Medical Code(s): C34.90 - Malignant neoplasm of unspecified part of unspecified bronchus or lung (5) Cachexia: Status: Acute Category: Medical Code(s): R64 - Cachexia Plan This is a 69-year-old male with chronic lung disease who became dyspneic and presented to the ED. VBG identified hypercapnia. His dyspnea resolved with NIPPV therapy. Problems addressed as follows: Acute on chronic respiratory failure with hypoxia and hypercapnia COPD exacerbation Tobacco dependence Metastatic lung cancer Cachexia with BMI 17 Severe protein calorie malnutrition Patient states he feels better, but continues to have increased work of breathing like yesterday and significant wheezing on exam. Currently requiring 2.5 L via nasal cannula. Oxygen therapy to maintain appropriate oxygen saturations Home oxygen requirement 3 L NIPPV therapy Pulmonology consult, appreciate recommendation. ED chest x-ray with no acute changes or effusions DuoNebs scheduled and as needed. Pulmicort twice daily Prednisone therapy, day 3. Pulmonology wants a total of 7 days. Nutritional counseling and supplementation RD consult Parenterally administered controlled substance for comfort care Goals of care conversation with CODE STATUS DNR/DNI Paroxysmal SVT Dyspnea and oxygen requirements noted ECG with any reported chest pain Antiplatelet therapy Statin therapy Beta-so therapy VTE prophylaxis: Lovenox CODE STATUS: DNR/DNI POA: The length of stay for this patient will be 2 midnights or greater due to above diagnoses.
[2024-08-01] MEDS: POTASSIUM CHLORIDE 20MEQ TAB 40 MEQ PO ×3 (16:08→20:11)
[2024-08-01] MEDS: MAGNESIUM SULFATE IN WATER 2 GM/50 ML PIGGYBACK IV (16:14)
[2024-08-01] MEDS: AZELASTINE NASAL SPRAY 30ML BOTTLE 137 MCG NS ×2 (16:14→20:12)
[2024-08-01] MEDS: CALCIUM CARB + VIT D 500MG TAB 500 MG PO (16:14)
[2024-08-01 17:10] LABS: Calcium, Ionized 3.4 mg/dL (4.5-5.6)
--- NOTE | 2024-08-01 17:59 | PC.NURSE ---
Pt is A&Ox4 and currently tolerating 2.5 L at this time. potassium and magnesium replaced per protocol. Pt denies pain and needs and has had no acute changes this shift to note. call light within reach and bed in low and locked position.
[2024-08-01] MEDS: TRAZODONE 50MG TABLET 150 MG PO (20:12)
[2024-08-01] MEDS: ATORVASTATIN 40MG TABLET 40 MG PO (20:12)
[2024-08-01] MEDS: PANTOPRAZOLE 40MG TABLET 40 MG PO (20:12)
[2024-08-02] VITALS (7 sets, daily range): BP systolic 112–160; BP diastolic 63–88; PULSE 88–100; RESP 16–22; TEMP 36.6–36.7; O2SAT 95–100; BMI 17.9
--- NOTE | 2024-08-02 05:11 | PC.NURSE ---
Pt is A&OX4 and has tolerated 2 1/2 L O2 this shift. Wheezing lung sounds heard throughout and bowel sounds active in all quadrants. He has denied any pain this shift. He has remained normal sinus with elevated t-waves on security monitor. No complaints at this time, call light within reach.
[2024-08-02] MEDS: IPRATROPIUM/ALBUTEROL 3 ML NEB IH ×2 (06:14→09:42)
[2024-08-02] MEDS: BUDESONIDE 0.5MG/2ML NEB 0.5 MG IH (06:14)
[2024-08-02 07:35] LABS: Anion Gap 10.7 mEq/L (5-15); Blood Urea Nitrogen 18 mg/dl (9-20); Calcium 5.7 mg/dl (8.4-10.2); Carbon Dioxide 31 mmol/L (22.0-30.0); Chloride 102 mmol/L (98-107); Creatinine Clearance Estimated 57 mL/min (50-200); Estimated Glomerular Filt Rate 134 ml/min (>60); GFR (African American) 163 ML/MIN (>60); Glucose 89 mg/dl (74-100); Magnesium 2.1 mg/dl (1.6-2.3); Potassium 4.7 mmoL/L (3.5-5.1); Sodium 139 mmol/L (136-145)
[2024-08-02] MEDS: predniSONE 20MG TAB 40 MG PO (09:46)
[2024-08-02] MEDS: METOPROLOL SUCCINATE XL 25MG TABLET 25 MG PO (09:46)
[2024-08-02] MEDS: ASPIRIN EC 81MG TABLET 81 MG PO (09:46)
[2024-08-02] MEDS: ENOXAPARIN 40MG/0.4ML SYRINGE 40 MG SQ (09:46)
[2024-08-02] MEDS: AZELASTINE NASAL SPRAY 30ML BOTTLE 137 MCG NS (09:51)
--- NOTE | 2024-08-02 10:00 | P.PN_ITS ---
Subjective *Date: 08/02/24 *Time: 11:59 Interval history: No acute respiratory vents overnight. Patient admits continued improvement in his respiratory symptoms. Pulmonology Exam Inpatient Vital signs and Labs for Last 24 Hours: Temp Pulse Resp BP Pulse Ox O2 Del Method O2 Flow Rate 97.9 F 90 22 141/71 H 97 Nasal Cannula 3 08/02/24 07:59 08/02/24 09:43 08/02/24 07:59 08/02/24 07:59 08/02/24 07:59 08/02/24 07:59 08/02/24 07:59 FiO2 28 07/31/24 19:13 Laboratory Results - last 24 hr 07/31/24 05:46: Ionized Calcium 3.4 L 08/01/24 10:00: Chlamy pneumoniae PCR Not detected, Adenovirus (PCR) Not detected, B. pertussis DNA (PCR) Not detected, Coronavirus OC43 (PCR) Not detected, Coronavirus HKU1 (PCR) Not detected, Coronavirus 229E (PCR) Not detected, SARS-CoV-2 (PCR) Not detected, Coronavirus NL63 (PCR) Not detected, Human Metapneumovir PCR Not detected, Influenza A (H1) PCR Not detected, Influ A (H1N1/09) PCR Not detected, Influenza A (H3) PCR Not detected, Influenza Type A (PCR) Not detected, Influenza Type B (PCR) Not detected, M. pneumoniae (PCR) Not detected, Parainfluenza 1 (PCR) Not detected, Parainfluenza 2 (PCR) Not detected, Parainfluenza 3 (PCR) Not detected, Parainfluenza 4 (PCR) Not detected, RSV (PCR) Not detected, Entero/Rhino (PCR) Detected A 08/02/24 06:13: Sodium 139, Potassium 4.7 D, Chloride 102, Carbon Dioxide 31 H, Anion Gap 10.7, BUN 18 D, Creatinine 0.60 L, Estimated Creat Clear 57, Estimated GFR 134, Est GFR ( Amer) 163, Glucose 89, Calcium 5.7 L, Magnesium 2.1 D Temp Pulse Resp BP Pulse Ox O2 Del Method O2 Flow Rate 98.4 F 99 H 16 134/73 98 Nasal Cannula 2.5 08/01/24 08:00 08/01/24 08:00 08/01/24 08:00 08/01/24 08:00 08/01/24 08:00 08/01/24 09:00 08/01/24 09:00 FiO2 28 07/31/24 19:13 Laboratory Results - last 24 hr 07/31/24 09:09: VBG pH 7.39, VBG pCO2 51.8 H, VBG pO2 99.0 H, VBG HCO3 30.9 H, VBG Total CO2 32.5 H, VBG O2 Saturation 97.9 H, VBG Base Excess 6.0 H, VBG Lactic Acid 1.2 07/31/24 19:40: WBC 5.0, RBC 3.63 L, Hgb 11.5 L, Hct 35.7 L, MCV 98.6 H, MCH 31.7 H, MCHC 32.1, RDW 14.4, Plt Count 279, MPV 6.8 L, Neut % (Auto) 72.3, Lymph % (Auto) 14.8, [place] % (Auto) 12.5 H, Eos % (Auto) 0.2, Baso % (Auto) 0.1, Neut # (Auto) 3.6, Lymph # (Auto) 0.7, [place] # (Auto) 0.6, Eos # (Auto) 0.0, Baso # (Auto) 0.0 08/01/24 06:00: VBG pH 7.38, VBG pCO2 60.3 H, VBG pO2 51.1 H, VBG HCO3 34.5 H, VBG Total CO2 36.3 H, VBG O2 Saturation 85.3 H, VBG Base Excess 9.3 H, VBG Lactic Acid 1.3 08/01/24 06:32: Sodium 137, Potassium 3.4 L D, Chloride 96 L, Carbon Dioxide 39 H, Anion Gap 5.4, BUN 13 D, Creatinine 0.70, Estimated Creat Clear 58, Estimated GFR 112, Est GFR ( Amer) 136, Glucose 105 H D, Calcium 6.1 L I & O for Labs for Last 24 Hours: Intake & Output 07/30/24 07/31/24 08/01/24 08/02/24 23:59 23:59 23:59 23:59 Intake Total 1220 / 1460 240 / 490 790 / 790 Output Total 0 / 0 500 / 500 0 / 0 0 / 0 Balance 0 / 120 720 / 960 240 / 490 790 / 790 Weight 121 lb 2 oz 121 lb 1.987 oz 125 lb 7 oz 125 lb Intake & Output 07/29/24 07/30/24 07/31/24 08/01/24 23:59 23:59 23:59 23:59 Intake Total 1220 / 1460 240 / 240 Output Total 0 / 0 500 / 500 0 / 0 Balance 0 / 120 720 / 960 240 / 240 Weight 121 lb 2 oz 121 lb 1.987 oz 125 lb 7 oz Microbiology Reports for the Last 24 Hours: Microbiology 07/31/24 14:00 Sputum - Expectorated Sputum Gram Stain - Final Constitutional: Present moderate distress Head: Present normocephalic and atraumatic ENT: Present normal exam, normal oropharynx and mucous membranes moist Neck: Present normal inspection and full ROM Respiratory: Present prolonged expiratory phase, respiratory distress, rhonchi, wheezes and diminished air movement; Absent able to speak in complete sentences Cardiac: Present S1/S2, Tachycardia and radial pulses present GI: Present soft and distention; Absent tenderness or guarding Skin: Present intact; Absent cyanosis or jaundice Neuro: Present alert, awake and oriented x 3 Extremities: Present normal inspection; Absent clubbing or cyanosis Psychiatric: Present normal affect and cooperative Assessment and Plan *Assessment and plan (1) Acute on chronic respiratory failure with hypoxia and hypercapnia: Status: Acute Category: Medical Code(s): J96.21 - Acute and chronic respiratory failure with hypoxia; J96.22 - Acute and chronic respiratory failure with hypercapnia (2) Acute exacerbation of chronic obstructive pulmonary disease: Status: Acute Category: Medical Code(s): J44.1 - Chronic obstructive pulmonary disease with (acute) exacerbation Plan Mr. Simmons is a 69-year-old male greater than [id number] smoking history recurrent small cell lung cancer, COPD chronic hypoxic respiratory failure on 3 L home nasal cannula oxygen supplementation and triple inhaler therapy presented to ER with worsening respiratory distress the venous blood question hypercarbic respiratory failure needing noninvasive ventilatory therapy and pulmonary was called for further evaluation and management. Venous blood gas upon admission. pH of 7.20 and pCO2 77.6. Subsequent blood cultures showed improvement. Afebrile. Hemodynamically stable. Chest x-ray upon admission hyperinflated l ungs, no dense consolidation/airspace disease changes noted. No evidence of leukocytosis. Patient was initiated on azithromycin, DuoNebs every 4 hours, Pulmicort twice daily and prednisone 40 mg daily. On initial examination patient appeared to be in severe respiratory distress. At baseline clinic. Bilateral diffuse wheezing noted. Respiratory viral PCR panel positive for entero-/rhinovirus. Interval update: No acute respiratory vents overnight. Stable oxygen requirements. Continued to have diffuse wheezing improved from prior. Rhonchorous breath sounds. On baseline home 2 to 3 L nasal-supplementation saturating 95%. Plan: -Continue DuoNebs every 4 hours along with Pulmicort every 12 scheduled -Incentive spirometry and flutter valve -Follow up sputum Gram stain culture results-continue azithromycin to complete a total of 5 days course -Continue prednisone 40 mg daily to complete a total of 7-day course # Thank you for involving pulmonary in this patient care. Will follow the pat ient in pulmonary clinic 5 to 7 days post discharge.
--- NOTE | 2024-08-02 12:36 | P.DS_ITS ---
General Admission date:: 07/30/24 Discharge date: 08/02/24 HPI HPI HPI: This is a 69-year-old male the presents to [facility] emergency department with concerns of dyspnea not improving with home oxygen. He is accompanied by his . Upon presentation to the ED his O2 sats were in the low 80s. His past medical history is significant for severe COPD with previous FEV1 22%, ongoing tobacco dependence, metastatic lung cancer to liver and hypertension. He denies associated fever, chills, purulent cough or hemoptysis. He reports no associated confusion, falls or syncope. In the ED his VBG identified pCO2 78. He identified dyspnea improvement with BiPAP therapy. Hospital Course Hospital Course Hospital Course: This is a 69-year-old male with severe COPD and history of lung cancer. Increased oxygen requirement from baseline. Became dyspneic and presented to the ER. VBG identified hypercapnia. His dyspnea resolved with NIPPV therapy. Respiratory panel showed rhino/enterovirus. Overall doing better. Back to baseline oxygen. Pulmonology consulted and assisted with care. Stable to discharge home to complete outpatient therapy with steroids. Problems addressed as follows: Acute on chronic respiratory failure with hypoxia and hypercapnia COPD exacerbation Tobacco dependence Metastatic lung cancer Cachexia with BMI 17 Severe protein calorie malnutrition Presented with significant respiratory distress. Improved with noninvasive positive pressure ventilation. Wean to supplemental oxygen via nasal cannula. Improved to baseline oxygen by day of discharge of 2 to 3 L. Pulmonology assisted with care. Patient found to be positive for rhino/enterovirus on respiratory panel. Treated with Pulmicort, DuoNebs, empiric antibiotics. Imaging of his chest did not show acute airspace disease or pneumonia. Given improvement to baseline oxygen, patient deemed stable to discharge home to complete steroid course. Recommend completing prednisone 40 mg daily for total of 7 days. Continue antibiotics with cefdinir 300 mg twice daily to complete 5 days. Follow-up with outpatient pulmonology for reevaluation in the next 1 to 2 weeks. Continue Trelegy 100 inhaler Paroxysmal SVT Dyspnea and oxygen requirements noted. Continued home aspirin daily, propranolol 10 mg twice daily. Asymptomatic during admission. Total time spent on discharge 32 minutes in counseling, documentation, chart review, and direct care with patient. Exam Data for Last 24 hours Vital signs and Labs for Last 24 Hours: Temp Pulse Resp BP Pulse Ox O2 Del Method O2 Flow Rate 98.1 F 92 H 20 160/88 H 97 Nasal Cannula 3 08/02/24 11:53 08/02/24 11:53 08/02/24 11:53 08/02/24 11:53 08/02/24 11:53 08/02/24 11:53 08/02/24 11:53 FiO2 28 07/31/24 19:13 Laboratory Results - last 24 hr 07/31/24 05:46: Ionized Calcium 3.4 L 08/02/24 06:13: Sodium 139, Potassium 4.7 D, Chloride 102, Carbon Dioxide 31 H, Anion Gap 10.7, BUN 18 D, Creatinine 0.60 L, Estimated Creat Clear 57, Estimated GFR 134, Est GFR ( Amer) 163, Glucose 89, Calcium 5.7 L, Magnesium 2.1 D I & O for Last 24 hours: Intake & Output 07/30/24 07/31/24 08/01/24 08/02/24 23:59 23:59 23:59 23:59 Intake Total 1220 / 1460 240 / 490 790 / 790 Output Total 0 / 0 500 / 500 0 / 0 325 / 325 Balance 0 / 120 720 / 960 240 / 490 465 / 465 Weight 54.941 kg 54.941 kg 56.897 kg 56.699 kg Microbiology Reports for the Last 24 Hours: Microbiology 07/31/24 14:00 Sputum - Expectorated Sputum Gram Stain - Final 07/31/24 14:00 Sputum - Expectorated Sputum Sputum Culture - Final Constitutional Constitutional: no acute distress, cachectic, chronically ill appearing and cooperative *Routine HEENT Exam Head: Present normocephalic Eye: Present EOMI and PERRL ENT: Present mucous membranes moist *Routine Neck Exam Neck: Present supple; Absent lymphadenopathy *Routine Respiratory Exam Respiratory: Present prolonged expiratory phase, wheezes and diminished air movement; Absent rhonchi or crackles *Routine Cardiovascular Exam Cardiovascular: Present RRR *Routine Abdominal Exam Abdominal: Present soft and normoactive bowel sounds; Absent tenderness *Routine Rectal Exam Patient deferred: visual exam *Routine Exam Patient deferred: penile exam *Routine Extremities Exam Extremities: Absent cyanosis, clubbing or edema *Routine Skin Exam Skin: Present warm; Absent rash *Routine Neurological Exam Neurological: Present alert, oriented X3 and moving all extremities; Absent altered mental status Results Data Completed and Pending Labs on day of discharge: Labs from last 24 hours 08/02/24 07/31/24 06:13 05:46 Sodium 139 Potassium 4.7 D Chloride 102 Carbon Dioxide 31 H Anion Gap 10.7 BUN 18 D Creatinine 0.60 L Estimated Creat Clear 57 Estimated GFR 134 Est GFR ( Amer) 163 Glucose 89 Calcium 5.7 L Ionized Calcium 3.4 L Magnesium 2.1 D DS: Diagnosis Discharge Diagnosis (1) Acute on chronic respiratory failure with hypoxia and hypercapnia: Status: Acute Code(s): J96.21 - Acute and chronic respiratory failure with hypoxia; J96.22 - Acute and chronic respiratory failure with hypercapnia (2) Acute exacerbation of chronic obstructive pulmonary disease: Status: Acute Code(s): J44.1 - Chronic obstructive pulmonary disease with (acute) exacerbation Meds Home Medications and Allergies Home Medications ?Medication ?Instructions ?Recorded ?Confirmed ?Type trazodone 150 mg tablet 150 mg PO HS 07/03/22 08/04/24 History fluticasone fur. 100 mcg-umeclid 1 inh inhalation DAILY Copd 01/05/23 08/04/24 History 62.5 mcg-vilant 25 mcg inhalat.powder (Trelegy Ellipta) aspirin 325 mg tablet 325 mg PO DAILY 05/11/23 08/04/24 History propranolol 10 mg tablet 10 mg PO BID 12/16/23 08/04/24 History albuterol sulfate 90 mcg/actuation 2 puff inhalation QIDP PRN 06/11/24 08/04/24 History aerosol inhaler Shortness Of Breath Or Wheezing ipratropium 0.5 mg-albuterol 3 mg 3 ml inhalation QIDP PRN Shortness 06/12/24 08/04/24 Rx (2.5 mg base)/3 mL nebulization Of Breath Or Wheezing 30 days #180 soln mL azelastine 137 mcg (0.1 %) nasal 2 spray intranasal BID 07/31/24 08/04/24 History spray cefdinir 300 mg capsule 300 mg PO BID 5 days #9 caps 08/02/24 08/04/24 Rx prednisone 20 mg tablet 40 mg (2 x 20 mg) PO DAILY 3 days 08/02/24 08/04/24 Rx #6 tabs New Prescriptions to Start Prescriptions: ceflemuelir Nicolas Tomas Nicolas Mullins Allergies Allergy/AdvReac Type Severity Reaction Status Date / Time silver Allergy Severe Rash Verified 05/25/24 09:23 [From Tegaderm AG Mesh] Penicillins [PENICILLINS] Allergy Mild Verified 05/25/24 09:23 amitriptyline AdvReac Intermediate gi upset Verified 05/25/24 09:23 adhesive AdvReac Verified 05/25/24 09:23 hydrocodone AdvReac Verified 05/25/24 09:23 Discharge Plan Disposition Patient Disposition: Home, Self-Care Condition: Fair Discharge Order Discharge Orders: Discharge Order (Routine); Ordered 08/02/24 Ordered By: Nicolas Tomas Follow up Plan Follow up with: Napoleon Webber MD [Physician] - 08/17/24 11:20 am Main Carrington MD [Primary Care Provider] - 08/08/24 2:15 pm Prescriptions/Medication Reconciliation: New prednisone 20 mg Tablet 40 mg PO DAILY 3 Days Qty: 6 0RF cefdinir 300 mg Capsule 300 mg PO BID 5 Days Qty: 9 0RF Continued propranolol 10 mg tablet 10 mg PO BID Patient Comments: TAKE 1 TABLET BY MOUTH TWICE DAILY trazodone 150 mg tablet 150 mg PO HS Trelegy Ellipta 100-62.5-25 mcg blister with device 1 inh inhalation DAILY aspirin 325 mg Tablet 325 mg PO DAILY albuterol sulfate 90 mcg/actuation HFA aerosol inhaler 2 puff INHALATION QIDP PRN (Reason: Shortness Of Breath Or Wheezing) Patient Comments: INHALE 2 PUFFS FOUR TIMES A DAY NEEDED FOR SHORTNESS OF BREATH OR WHEEZING ipratropium-albuterol 0.5 mg-3 mg(2.5 mg base)/3 mL solution for nebulization 3 ml INHALATION QIDP PRN (Reason: Shortness Of Breath Or Wheezing) 30 Days Qty: 180 0RF azelastine 137 mcg (0.1 %) spray,non-aerosol 2 spray intranasal BID Patient Comments: USE 2 SPRAYS IN EACH NOSTRIL TWICE DAILY Problem Reconciliation Problems Reviewed?: Yes Patient Discharge Instructions ACTIVITY: Continue current activity DIET: continue same diet Patient Instructions: DI for Chronic Obstructive Pulmonary Disease, DI for Respiratory Failure Print Language: Indonesian Providers Primary Care Provider: Main Carrington Admit Provider: Joshua Cannon Attending Provider: Joshua Cannon
[2024-08-02] MEDS: CEFDINIR 300MG CAPSULE 300 MG PO (12:37)
--- NOTE | 2024-08-03 14:14 | CARE MANAGER ---
Patient called back and we discussed hospital discharge. Patient states he is still short of breath and is not feeling well. Recommended he contact Dr. Carrington's office or come get checke dout here. He verbalized understanding. He has new medications and is aware of appointments. RAISA Underwood
--- OUTSIDE RECORDS SUMMARY | 2024-08-23 10:07 | XMS_ITS ---
Author Organization [facility] Address [address] [facility] [address] [facility] [address] [place] [address] Care Team Providers Care Glycerin Operator Name Role Phone Main Carrington Primary Care Provider [phone] Main Carrington Unavailable Unavailable Allergies Allergen (clinical drug ingredient) Drug/Non Drug Allergy documented on EMR Reaction Allergy Type Onset Date Status penicillin Unknown Drug Allergy Active REASON FOR VISIT [facility] follow up Medications Medication SIG (Take, Route, Frequency, Duration) Notes Start Date End Date Status Trelegy Ellipta 200 mcg-62.5 mcg-25 mcg/inh 1 puff(s) inhaled once a day Active albuterol-ipratropium 2.5 mg-0.5 mg/3 mL 3 mL by nebulizer 4 times a day Active Vitamin D2 50,000 intl units 1 cap(s) orally once a week Active Propranolol Hydrochloride 20 mg 1 tab(s) orally 2 times a day for 30 days 08/08/2024 Active nicotine 14 mg/24 hr 1 PATCH transdermal ly once a day Active Albuterol (Eqv-ProAir HFA) 90 mcg/inh 2 puff(s) inhaled every 6 hours PRN for 30 days Active azithromycin 250 mg 1 tab(s) orally once daily on Thursday, Thursday and Thursday for 30 days 08/08/2024 Active traZODone 150 mg 1 tab(s) orally once a day (at bedtime) for 90 days Active Azelastine Hydrochloride Nasal 137 mcg/inh 2 spray(s) intranasally 2 times a day for 30 days prn Active Propranolol Hydrochloride 10 mg 1 tab(s) orally 2 times a day for 90 days Active Social History Tobacco Use: Social History Observation Description Date Details (start date - stop date) Current Smoker NA - NA Smoking: Question Answer Notes Are you a: current smoker How often do you smoke cigarettes? every day How many cigarettes a day do you smoke? 6-10 How soon after you wake up d o you smoke your first cigarette? 31-60 min Are you interested in quitting? Ready to quit Additional Findings: Tobacco User Light cigarett e smoker ((1-9 cigs/day) Vital Signs Temperature 98.2 degrees Fahrenheit 08/08/20 24 Blood pressure systolic 98 mm Hg 08/08/20 24 Blood pressure diastolic 64 mm Hg 024 Heart Rate 120 /min 08/08/2024 Height 5 ft 10 in in 08/08/2024 Weight 124 lbs 08/08/2024 BMI 17.79 kg/m2 08/08/2024 Encounters Encounter Location Date Provider Diagnosis [facility] [address] [facility] [address] [place], [place] [address] 08/08/2024 Main Carrington COPD, group D, by GO LD 2017 classification J44.9 ; Essential tremor G25.0 and Hospital discharge follow-up Z09 Assessments Encounter Date Diagnosis (ICD Code) Assessment Notes Treat ment Notes Treatment Clinical Notes 08/08/2024 COPD, group D, by GOLD 2017 classification (ICD-10 - J44.9) Reviewed hospital discharge records. Patient has stopped doxycycline and given the fact that he is back to baseline I am not sure he needs to finish. Has finished his steroid taper. Will resume regular azithromycin. Instructed patient that he has cefdinir at home and if he has an exacerbation to start this, call me for steroids and see if we can prevent hospital admission. He will see his alcoholic counselor next week and oncology, I will see him in 2 months 08/08/2024 Essential tremor (ICD-10 - G25.0) Slightly worse, patient's blood pressure and pulse are normal, increase propranolol slightly 08/08/2024 Hospital discharge follow-up (ICD-10 - Z09) Please note I reviewed hospital H&P, discharge summary, personally reconciled medications Plan Of Treatment Medication Medication Name Sig Start Date Stop Date Notes Propranolol Hydrochloride 20 mg 1 tab(s) orally 2 times a day for 30 days 08/08/2024 azithromycin 250 mg 1 tab(s) orally once daily on Thursday, Thursday and Thursday for 30 days 08/08/2024 Treatment Notes Assessment Notes COPD, group D, by GOLD 2017 classificati on Reviewed hospital discharge records. Patient has stopped doxycycline and given the fact that he is back to baseline I am not sure he needs to finish. Has finished his steroid taper. Will resume regular azithromycin. Instructed patient that he has cefdinir at home and if he has an exacerbation to start this, call me for steroids and see if we can prevent hospital admission. He will see his alcoholic counselor next week and oncology, I will see him in 2 months Essential tremor Slightly worse, joel ent's blood pressure and pulse are normal, increase propranolol slightly Hospital discharge follow-up Please note I reviewed hospital H&P, discharge summary, personally reconciled medications Next Appt Details Follow Up: prn, Reason: Provider Name:Main Carrington, 10/17/2024 09:45:00 AM, [address] [facility] [address], [address], [place], [address], Progress Notes * Alejandro MADERA SDOB:[birth year] (69 yo M)Acc No.[id number]:08/08/2024 HOSP F/U Patient:?HAIDERAlejandro GREGG Brit Provider:?Main Carrington MD :1955???Age:69 Y???Sex:Male Dalton e:08/08/2024 Address:[address] [place] [address], [place], [id number] Subjective: * Chief Complaints: * ???1. [facility] follow up. * HPI: ???[place] History:? Patient presents for evaluation/discharge visit from the hospital. Admitted as noted above. Been admitted from 07 30 through 08 02 with respiratory failure, discharged on cefdinir but came back to the hospital within 24 hours and was readmitted with steroids and placed on doxycycline. Tolerated this fairly well and discharged on the . Initially did well on doxycycline but stopped it after 2 days out of the hospital because of nausea and GI side effects. Has felt well since that time. Has resumed his Thursday/Thursday/Thursday azithromycin. This has seemed to help him. Wonders about increasing propranolol because of tremors getting worse. ?Transition of care visit from hospital?Date of admission to hospital:?08/03/2024,?Date of receipt of hospital admission report:?08/04/2024,?Date of discharge from hospital:?08/05/2024,?Date of receipt of hospital discharge summary:?08/05/2024,?Discharge medications reviewed and reconciled from hospital:?Medications left unchanged.? * Medical History:?RLS, HTN, C OPD, Lung/ Liver cancer, Partially Collapsed right lung, 3L oxygen. * Surgical History:?port insta lled 12/2022. * Hospitalization/Major Diagno stic Procedure:?[facility]- COPD EXACERBATION 06/10/24- 06/12/24, [facility]- COPD . * Family History:?Father: dece ased.?Mother: .?Paternal Grand Father: .?Paternal Grand Mother: .?Maternal Grand Father: .?Maternal Grand Mother: . Paternal uncle: unknown.?Paternal aunt: unknown.?Maternal uncle: .?Maternal aunt: .?Siblings: alive, multiple sclerosis, diagnosed with Diabetes.?Children: alive, diagnosed with Diabetes, Heart Disease.?5 brother(s) . 2 son(s) , 1 daughter(s) . .? * Social History:?Smoking?Are you a:?current smoker,?How often do you smoke cigarettes??every day,?How many cigarettes a day do you smoke??6-10,?How soon after you wake up do you smoke your first cigarette??31-60 min,?Are you interested in quitting??Ready to quit,?Additional Findings: Tobacco User?Light cigarette smoker ((1-9 cigs/day).?Recreational drug use: no. Exercise: no. Home smoke detector use: yes. Caffeine: yes, frequency:coffee, pepsi. Living Will: No. Alcohol: socially, Type: , Frequency: ,Years: , Determination:. Sexually active: no. Travel outside [place]: no. Occupation: Retired. * Medications:?Taking nicotine 14 mg/24 hr film, extended release 1 PATCH transdermally once a day , Taking Vitamin D2 50,000 intl units capsule 1 cap(s) orally once a week , Taking albuterol-ipratropium 2.5 mg-0.5 mg/3 mL [...] orally once a day (at bedtime) , Medication List reviewed and reconciled with the patient * Allergies:?Penicillin. Objective: * Vitals:?Nurse: be, Pain: 3, Temp: 98.2, RR: 24, HR: 120, BP: 98/64, Ht: 5 ft 10 in, Wt: 124, BMI:17.79. * Examination: ???General Examination: ???Exam appears to be at baseline. Oropharynx clear. Essential tremor noted. Lungs have extremely poor air entry with some thick rhonchi in both lung mcgill. Heart rate regular. He is pleasant and talkative and oriented. No distress. Assessment: * Assessment: 1.?COPD, group D, by GOLD 20 17 classification - J44.9 (Primary)???2.?Essential tremor - G25.0???3.?Hospital discharge follow-up - Z09??? Plan: * Treatment: 2.?Essential tremor? Start Propranolol Hydrochloride tablet, 20 mg, 1 tab(s), orally, 2 times a day, 30 days, 60, Refills 3.?? Notes: Slightly worse, patient's blood pressure and pulse are normal, increase propranolol slightly?? 3.?Hospital discharge follow -up? Notes: Please note I reviewed hospital H&P, discharge summary, personally reconciled medications?? * Procedure Codes:?73344 [facility] MGMT 7 DAY DISCH, Modifiers: 25 , 1170F FUNCTIONAL STATUS ASSESSMENT * Follow Up:?prn * * Sign off status: Completed true * Provider:?Main Carrington MD Date :?08/08/2024 Generated for Phillip smith/Leigha/eTransmitting on:?08/23/2024 10:06 AM EDT History and Physical Notes * HPI (History of Present Illness) Category Sub-Category Detail Notes [place] History Transition of care v isit from hospital Date of admission to hospital:: 08/03/2024 Date of receipt of hospital admission re port:: 08/04/2024 Date of discharge from hospital:: 2023 Date of receipt of hospital discharge han mmary:: 08/05/2024 Discharge medications review ed and reconciled from hospital:: Medications left unchanged
--- OUTSIDE RECORDS SUMMARY | 2024-08-23 10:07 | XMS_ITS ---
Author Organization [facility] Address [address] [facility] [address] [place] [address] Care Team Providers Care Pack Worker Name Role Phone Main Carrington Primary Care Provider Main Carrington Unavailable Unavailable REASON FOR VISIT Hospital F/U Transition of Care Encounters Encounter Location Date Provider Diagnosis [facility] [address] [facility] [address] [place], [place] [address] 08/05/2024 Main Carrington Plan Of Treatment Next Appt Details Provider Name:Main Carrington, 10/17/2024 09:45:00 AM, [address] [facility], [address], [place], [address], Progress Notes * Alejandro MADERA SDOB:[birth year] (69 yo M)Acc No.[id number]:08/05/2024 Patient:?Alejandro MADERA :1955???Age:69 Y???Sex:Male Address:[address] [place] [address] [place], [address] * true * Date:? Generated for Printi ng/Faxing/eTransmitting on:?08/23/2024 10:07 AM EDT
--- OUTSIDE RECORDS SUMMARY | 2024-08-23 10:07 | XMS_ITS | Patient Health Record ---
Author Organization [facility] Address [address] [facility] [address] [place] [address] Care Team Providers Care Coining Press Operator Name Role Phone Main Carrington Primary Care Provider Main Carrington Unavailable Unavailable Cathie Musa Unavailable [phone] Allergies Allergen (clinical drug ingredient) Drug/Non Drug Allergy documented on EMR Reaction Allergy Type Onset Date Status penicillin Unknown Drug Allergy Active Reason For Referral No Information Medications Medication SIG (Take, Route, Frequency, Duration) Notes Start Date End Date Status Albuterol (Eqv-ProAir HFA) 90 mcg/inh 2 puff(s) inhaled every 6 hours PRN for 30 days Active Trelegy Ellipta 200 mcg-62.5 mcg-25 mcg/inh 1 puff(s) inhaled once a day Active albuterol-ipratropium 2.5 mg-0.5 mg/3 mL 3 mL by nebulizer 4 times a day Active azithromycin 250 mg 1 tab(s) orally once daily on Thursday, Thursday and Thursday for 30 days 08/08/2024 Active Vitamin D2 50,000 intl units 1 cap(s) orally once a week Active traZODone 150 mg 1 tab(s) orally once a day (at bedtime) for 90 days Active Azelastine Hydrochloride Nasal 137 mcg/inh 2 spray(s) intranasally 2 times a day for 30 days prn Active Propranolol Hydrochloride 10 mg 1 tab(s) orally 2 times a day for 90 days Active Propranolol Hydrochloride 20 mg 1 tab(s) orally 2 times a day for 30 days 08/08/2024 Active nicotine 14 mg/24 hr 1 PATCH transdermal ly once a day Active Immunizations Vaccine Route Administration Date Status Comme nts Prevnar PCV-20 (Pneumococcal conjugate 20) IM Intramuscular 12/01/2022 Administered Fluzone High Dose IM Intramuscular 08/12/2023 Administered Fluzone High Dose IM Intramuscular 07/18/2024 Administered Social History Tobacco Use: Social History Observation [...] User Light cigarett e smoker ((1-9 cigs/day) Problems Problem Type SNOMED Code ICD Code Onset Dates Problem Status W/U Status Risk Notes Problem Malignant tumor of lung (776362196) Malignant neoplasm of unspecified part of unspecified bronchus or lung (C34.90) Active confirmed Problem 1465462 Primary insomnia (F51.01) Active confirmed Problem 214343422 Essential tremor (G25.0) Active confirmed Problem Essential hypertension (09290706) Essential (primary) hypertension (I10) Active confirmed Problem 8158763 Vasomotor rhinitis (J30.0) Active confirmed Problem Acute on chronic hypoxemic and hypercapnic respiratory failure (disorder) (98365127485844) Acute and chronic respiratory failure with hypercapnia (J96.22) Active confirmed Problem Osteoarthritis (801673494) Unspecified osteoarthritis, unspecified site (M19.90) Active confirmed Problem 618064067809598624 Personal hist ory of nicotine dependence (Z87.891) Active confirmed Problem Chronic obstructive pulmonary disease (94813318) 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) Active confirmed Problem 05936302 Restless leg syndrome (G25.81) Active confirmed Problem 231432636 COPD with acute exacerbation (J44.1) Active confirmed Problem 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) 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) Active confirmed Problem Cigarette smoker (81832104) Cigarette smoker (F17.210) Active confirmed Problem 61111494 Tobacco dependence (F17.200) Active confirmed Problem Dependence on supplemental oxygen (767413702414) Oxygen dependent (Z99.81) Active confirmed Problem 23149888 COPD, group D, by GOLD 2017 classification (J44.9) Active confirmed Vital Signs Heart Rate 120 /min 08/08/2024 Temperature 98.2 degrees Fahrenheit 08/08/2024 Oximetry 98% 3L NC 06/15/2024 Blood pressure diastolic 64 mm Hg 08/08/2024 Height 5 ft 10 in in 08/08/2024 Blood pressure systolic 98 mm Hg 08/08/2024 Weight 124 lbs 08/08/2024 BMI 17.79 kg/m2 08/08/2024 Encounters Encounter Location Date Provider Diagnosis [facility] [address] [place] [address] 09/14/2023 Mainjad Carrington Recurrent frontal sinusitis J01.11 [facility] [address] [place] [address] 12/14/2023 Mainjad Carrington Acute and chronic respiratory failure with hypercapnia J96.22 ; Malignant neoplasm of unspecified part of unspecified bronchus or lung C34.90 ; COPD, group D, by GOLD 2017 classification J44.9 ; Tobacco dependence F17.200 ; Tremor R25.1 and Routine medical exam Z00.00 [facility] [address] [place] [address] 12/28/2023 Mainjad Carrington Acute frontal sinusitis, recurrence not specified J01.10 [facility] [address] [place] [address] 01/11/2024 Main Besson Vasomotor rhinitis J30.0 ; COPD, group D, by GOLD 2017 classification J44.9 ; Malignant neoplasm of unspecified part of unspecified bronchus or lung C34.90 and Essential tremor G25.0 [facility] [address] [facility] [address] [place] [address] 03/14/2024 Main Besson Essential tremor G25 .0 ; Vasomotor rhinitis J30.0 ; COPD, group D, by GOLD 2017 classification J44.9 ; Personal history of nicotine dependence Z87.891 and Routine medical exam Z00.00 [facility] [address] [place], [place] [address] 05/31/2024 Cathie Musa COPD exacerbation J4 4.1 [facility] [address] [place], [place] [address] 06/15/2024 Main Besson COPD with acute exacerbation J44.1 ; Asthma with COPD J44.9 and Hospital discharge follow-up Z09 [facility] [address] [place] [place], [place] [address] 07/18/2024 Main Besson Immunization(s) administered Z23 and COPD, group D, by GOLD 2017 classification J44.9 [facility] [address] [place] [place], [place] [address] 08/08/2024 Mainjad Carrington COPD, group D, by GO LD 2017 classification J44.9 ; Essential tremor G25.0 and Hospital discharge follow-up Z09 [facility] [address] [place], [place] [address] 11/03/2023 Main Besson [facility] [address] [place] [address] 05/27/2024 Main Besson [facility] [address] [place] [address] 08/02/2024 Main Besson [facility] [address] [facility] [address] [place], [place] [address] 08/05/2024 Mainjad Carrington Assessments Encounter Date Diagnosis (ICD Code) Assessment Notes Treatment Notes Treatment Clinical Notes 09/14/2023 Recurrent frontal sinusitis (ICD-10 - J01.11) [...] ramp this up to 3 times daily 05/31/2024 COPD exacerbation (ICD-10 - J44.1) start oral steroids tomorrow, encouraged pulm toilet and start levaquin as noted. close FU with any concerns about progression or failure to improve 06/15/2024 Asthma with COPD (ICD-10 - J44.9) Discussed hydrating we will bit more aggressively to help nebs be more effective. Close follow-up as scheduled in July, hopefully flu shots will be available at that point. 06/15/2024 COPD with acute exacerbation (ICD-10 - J44.1) Overall patient seems to be improving, continue/finish current antibiotic therapy and enhance nebulizer treatments as well as prednisone. 07/18/2024 Immunization(s) administered (ICD-10 - Z23) Flu vaccine given today. 07/18/2024 COPD, group D, by GOLD 2017 classification (ICD-10 - J44.9) Patient is at his baseline functioning today. Continue to follow up with pulmonolgy. Follow up in 3 months. 08/08/2024 Essential tremor (ICD-10 - G25.0) Slightly worse, patient's blood pressure and pulse are normal, increase propranolol slightly 12/28/2023 Acute frontal sinusitis, recurrence not specified (ICD-10 - J01.10) Presenting with 1 week of worsening nasal congestion/sinus pain/headache Denies fever or sputum production but does have significant pharyngeal erythema. PLAN: Will treat with 7 days of cefdinir 300mg BID and claritin-D Patient to call back in if symptoms worsening or no improvement after 7 days 08/08/2024 COPD, group D, by GOLD 2017 [...] prevent hospital admission. He will see his sparker and patcher next week and oncology, I will see him in 2 months 03/14/2024 COPD, group D, by GOLD 2017 classification (ICD-10 - J44.9) Continue home inhalers, patient oxygen stable at 3L via [place] Discussed importance of tobacco cessation, patient expressed understanding 01/11/2024 Malignant neoplasm of unspecified part of unspecified bronchus or lung (ICD-10 - C34.90) Patient has metastatic lung carcinoma. Continue to follow with oncology for chemotherapy and pulmonology for symptom/co-morbid COPD management. Will see patient back in the office to see how he is doing in 2 months, sooner if needed. 08/08/2024 Hospital discharge follow-up (ICD-10 - Z09) Please note I reviewed hospital H&P, discharge summary, personally reconciled medications 06/15/2024 Hospital discharge follow-up (ICD-10 - Z09) Reviewed discharge summary, medication reconciliation personally done by me. 12/14/2023 COPD, group D, by GOLD 2017 classification (ICD-10 - J44.9) -Stable on current inhaler regimen 12/14/2023 Tobacco dependence (ICD-10 - F17.200) -Ongoing [...] to be eating well. is healthcare surrogate. 12/14/2023 Tremor (ICD-10 - R25.1) - Intention and resting tremor - Worsened over last 3-6 months - Trial Propanolol 10mg BID, discussed side effect profile (if worsening orthostasis, please DC) - RTC 4 weeks, can discuss altnerative if no improvement 12/14/2023 Routine medical exam (ICD-10 - Z00.00) [...] clinical status. - Lung Cancer, per oncology Plan Of Treatment Next Appt Details Provider Name:Main Carrington, 10/17/2024 09:45:00 AM, [address], [address], [place], [address], Insurance Providers Payer Name Payer Address Payer Phone Subscriber Number Group Number Insured Name Patient Relationship to Insured Coverage Start Date Coverage End Date [employer] [address] [place] [address] [phone] [id number] JMWAlejandro Quinteros Self - patient is the insured Medications Administered Medication Instructions Date of Administration Dosage Notes Dexamethasone 4mg Injection 05/31/2024 4 mg Medical (General) History Medical History History ICD Code RLS HTN COPD Lung/ Liver cancer Partially Collapsed right lung 3L oxygen Surgical History Surgery Date(Month/Year) port installed 12/2022 Hospitalization History Reason Date(Month/Year) [facility] 06/10/24-06/12/24
--- OUTSIDE RECORDS SUMMARY | 2024-08-23 10:07 | XMS_ITS ---
Author Organization [facility] Address [address] [facility] [address] [place] [address] Care Team Providers Care Medical Services Coordinator Name Role Phone Main Carrington Primary Care Provider [phone] Main Carrington Unavailable Unavailable REASON FOR VISIT Transition of Care Encounters Encounter Location Date Provider Diagnosis [facility] [address] [facility] [address] [place] [address] 08/02/2024 Main Carrington Plan Of Treatment Next Appt Details Provider Name:Main Carrington, 10/17/2024 09:45:00 AM, [address] [facility], [address], [place], [address], Progress Notes * Alejandor MADERA SDOB:[birth year] (69 yo M)Acc No.[id number]:08/02/2024 Patient:?Alejandro MADERA :1955???Age:69 Y???Sex:Male Address:[address] [place] [address] [place], [address] * true * Date:? Generated for Printi ng/Faxing/eTransmitting on:?08/23/2024 10:07 AM EDT
== END 2024-08-02 14:41 | disposition home or self-care (01) | DRG 189 ==
LOC: ER 18:08 → 2ND 07-31 01:22
PROVIDERS: Family Medicine; Internal Medicine Pulmonary Disease; Nurse Practitioner; Admitting Provider Student in an Organized Health Care Education/Training Program; Emergency Provider Emergency Medicine; PCP Internal Medicine Adolescent Medicine; Visit Provider Student in an Organized Health Care Education/Training Program
DX: J96.21 Acute and chronic respiratory failure with hypoxia (principal); E43 Unspecified severe protein-calorie malnutrition; J44.1 Chronic obstructive pulmonary disease with (acute) exacerbation; C34.31 Malignant neoplasm of lower lobe, right bronchus or lung; R64 Cachexia; Z68.1 Body mass index [BMI] 19.9 or less, adult; C78.7 Secondary malignant neoplasm of liver and intrahepatic bile duct; I47.19 Other supraventricular tachycardia; J96.22 Acute and chronic respiratory failure with hypercapnia; F17.210 Nicotine dependence, cigarettes, uncomplicated; Z99.81 Dependence on supplemental oxygen; Z79.899 Other long term (current) drug therapy; Z79.02 Long term (current) use of antithrombotics/antiplatelets
CPT/HCPCS: 36415; 71045; 80048; 80053; 82330; 82803; 83735; 83880; 84484; 85025; 85378; 85610; 85730; 87070; 87205; 87265; 87486; 87581; 87632; 87635; 93005; 94640; 94660; 94761; 99291; J0456; J0696; J1650; J2060; J2405; J2919; J3475; J7050; J7620

== ENCOUNTER 2024-08-03 21:02 | Inpatient (IN) | payer MEDICARE, SELFPAY ==
[2024-08-03 21:03] VITALS: BP 151/100; PULSE 120; RESP 25; TEMP 37; O2SAT 95; BMI 19.2
--- NOTE | 2024-08-03 21:17 | ED_ITS ---
Discharge Plan Disposition Patient Disposition: Admitted Condition: Fair Clinical Impressions Clinical Impression: Acute exacerbation of chronic obstructive pulmonary disease, Viral respiratory infection Discharge ED Provider: Christopher Ellsworth General Adult HPI <ANÍBAL Harvey - Last Filed: 08/03/24 23:09> General Chief complaint: Shortness of Breath/Dyspnea Stated complaint: SOA,COPD Time Seen by Provider: 08/03/24 21:17 History of Present Illness HPI narrative: Patient presents for evaluation of dyspnea. Patient has a longstanding history of oxygen dependent COPD. He was actually hospitalist [facility] from Thursday till yesterday. Patient presents today stating that he is use his nebulizer 3-4 times a day and still has subjective shortness of breath. He denies fever chills hemoptysis hematochezia melena nausea vomit diarrhea. Related Data Home Medications ?Medication ?Instructions ?Recorded ?Confirmed trazodone 150 mg tablet 150 mg PO HS 07/03/22 08/04/24 fluticasone fur. 100 mcg-umeclid 1 inh inhalation DAILY Copd 01/05/23 08/04/24 62.5 mcg-vilant 25 mcg inhalat.powder (Trelegy Ellipta) aspirin 325 mg tablet 325 mg PO DAILY 05/11/23 08/04/24 propranolol 10 mg tablet 10 mg PO BID 12/16/23 08/04/24 albuterol sulfate 90 mcg/actuation 2 puff inhalation QIDP PRN 06/11/24 08/04/24 aerosol inhaler Shortness Of Breath Or Wheezing azelastine 137 mcg (0.1 %) nasal 2 spray intranasal BID 07/31/24 08/04/24 spray Previous Rx's ?Medication ?Instructions ?Recorded ipratropium 0.5 mg-albuterol 3 mg 3 ml inhalation QIDP PRN Shortness 06/12/24 (2.5 mg base)/3 mL nebulization Of Breath Or Wheezing 30 days #180 soln mL cefdinir 300 mg capsule 300 mg PO BID 5 days #9 caps 08/02/24 prednisone 20 mg tablet 40 mg (2 x 20 mg) PO DAILY 3 days 08/02/24 #6 tabs Allergies Allergy/AdvReac Type Severity Reaction Status Date / Time silver Allergy Severe Rash Verified 05/25/24 09:23 [From Tegaderm AG Mesh] Penicillins [PENICILLINS] Allergy Mild Verified 05/25/24 09:23 amitriptyline AdvReac Intermediate gi upset Verified 05/25/24 09:23 adhesive AdvReac Verified 05/25/24 09:23 hydrocodone AdvReac Verified 05/25/24 09:23 PFSH <ANÍBAL Harvey - Last Filed: 08/03/24 23:09> PFS Disclaimer: The information contained in this section may have been updated after the patient was seen, as this information can be updated by other users. Medical History Bilateral impacted cerumen Tinnitus Hearing loss Lung nodule Hilar lymphadenopathy Pneumonia Sleep apnea Emphysema/COPD Chronic cough Bronchitis Allergies History of anemia Lung collapse Nodule of right lung Tobacco abuse disorder Tobacco abuse counseling Small cell lung cancer Smoking greater than 30 pack years Chronic hypoxemic respiratory failure COPD (chronic obstructive pulmonary disease) Dyspnea on exertion On home O2 Sinus problem History of chemotherapy History of radiation therapy Personal history of arthritis History of lung disease Hyperlipemia Cancer Asthma Essential hypertension COPD exacerbation Surgical History History of insertion of tunneled central venous catheter (CVC) with port History of colonoscopy Hx of cardiac catheterization Normal coronary arteries History of sinus surgery Family History Other Cancer Diabetes Social History (Updated 08/04/24 @ 01:04 by Sandra Cummings RN) Smoking Status: Current every day smoker tobacco type: cigarettes packs per day: 1 years smoked: 50 alcohol intake: former substance use type: denies use current occupational status: retired and disabled Travel in the last 8 weeks: None household members: spouse housing: house caffeine: Yes <ANÍBAL Harvey - Last Filed: 08/03/24 23:09> ROS Obtained: Yes Systems reviewed as appropriate & no additional complaints except as documented Physical Exam <ANÍBAL Harvey - Last Filed: 08/03/24 23:09> General General appearance: alert Respiratory Respiratory exam: Present wheezes Cardiovascular Cardiovascular exam: Present tachycardia Neurological Exam Neurological exam: Present alert and oriented X3 Lymphatic Lymphatic Findings: no adenopathy Medical Decision Making <ANÍBAL Harvey Last Filed: 08/03/24 23:09> Medical Records Medical records reviewed: Yes I reviewed the patient's medical records. Screening: Per USPSTF and CDC recommendations, given the prevalence of disease in our region, it is our hospital?s policy to screen for HIV and viral Hepatitis for all patients aged 18 and over and those with ongoing risk factors. [place] Inquiry Pt receiving controlled substance: No Vital Signs: 08/03/24 21:03 08/03/24 21:59 08/03/24 21:59 Temperature 98.6 F Temperature Source Oral Pulse Rate 121 H 119 H Pulse Rate [Right Radial] 120 H Respiratory Rate 25 H Blood Pressure Blood Pressure [Right Arm] 151/100 H Blood Pressure Mean [Right Arm] 117 Blood Pressure Source Blood Pressure Position 02 Sat by Pulse Oximetry 95 Oxygen Delivery Method Nasal Cannula Oxygen Flow Rate (LPM) 3 08/03/24 22:46 Temperature 98.2 F Temperature Source Oral Pulse Rate 121 H Pulse Rate [Right Radial] Respiratory Rate 16 Blood Pressure 141/71 H Blood Pressure [Right Arm] Blood Pressure Mean [Right Arm] Blood Pressure Source Automatic Cuff Blood Pressure Position Sitting 02 Sat by Pulse Oximetry Oxygen Delivery Method Room Air Oxygen Flow Rate (LPM) Lab Data Lab results reviewed: Yes I reviewed the patient's lab results. Lab Results 08/03/24 21:25: C-Reactive Protein 5.1 H, Procalcitonin 0.053 08/03/24 21:27: VBG pH 7.37, VBG pCO2 58.5 H, VBG pO2 58.6 H, VBG HCO3 32.9 H, V BG Total CO2 34.7 H, VBG O2 Saturation 88.9 H, VBG Base Excess 7.6 H, VBG Lactic Acid 0.9 08/03/24 21:35: WBC 6.0, RBC 3.70 L, Hgb 11.5 L, Hct 36.4 L, MCV 98.5 H, MCH 31.2, MCHC 31.6 L, RDW 14.5, Plt Count 313, MPV 8.4, Neut % (Auto) 74.0, Lymph % (Auto) 16.7, Garfield % (Auto) 8.6, Eos % (Auto) 0.5, Baso % (Auto) 0.1, Neut # (Auto) 4.4, Lymph # (Auto) 1.0, Garfield # (Auto) 0.5, Eos # (Auto) 0.0, Baso # (Auto) 0.0, Sodium 139, Potassium 3.7 D, Chloride 96 L, Carbon Dioxide 39 H, Anion Gap 7.7, BUN 11 D, Creatinine 0.60 L, Estimated Creat Clear 65, Estimated GFR 134, Est GFR ( Amer) 163, Glucose 119 H, Calcium 6.0 L, NT-Pro-B Natriuret Pep 205 H 08/04/24 05:27 08/04/24 05:27 Orders (Tests/Meds): ED MEDICATIONS Generic Name Dose Route Start Last Admin Trade Name Freq PRN Reason Stop Dose Admin Acetaminophen 650 mg 08/03/24 22:54 Acetaminophen 325mg Tab PO 09/02/24 22:53 Q4HP PRN Fever or Mild Pain (1-3) Albuterol Sulfate 2.5 mg 08/03/24 23:13 Albuterol 0.083% 2.5 Mg/3 Ml Neb 09/02/24 23:12 Q4HP PRN Shortness Of Breath Albuterol/Ipratropium 3 ml 08/04/24 10:00 08/04/24 14:01 Ipratropium/Albuterol 3 Ml Neb 09/03/24 09:59 3 ml Q4RT DOREEN Administration Aspirin 325 mg 08/05/24 09:00 Aspirin 325mg Tablet PO 09/04/24 08:59 DAILY DOREEN Budesonide 0.5 mg 08/04/24 18:00 Budesonide 0.5mg/2ml Neb 09/03/24 17:59 BIDRT DOREEN Enoxaparin Sodium 40 mg 08/04/24 09:00 08/04/24 09:24 Enoxaparin 40mg/0.4ml Syringe SQ 09/03/24 08:59 40 mg DAILY DOREEN Administration Fluticasone/Umeclidinium/Vilanterol 1 puff 08/05/24 09:00 Fluticasone/Umeclidin/Vilanter 100/62.5/25mcg Inhaler IH 09/04/24 08:59 DAILY DOREEN Hydralazine HCl 10 mg 08/04/24 03:22 Hydralazine 20mg/Ml Vial IV 09/03/24 03:21 Q6HP PRN Hypertensive Emergency Doxycycline Hyclate 100 mg/ 250 mls @ 166.667 mls/hr 08/04/24 12:00 08/04/24 12:59 Sodium Chloride IV 08/14/24 11:59 166.667 mls/hr Q12H DOREEN Administration Methylprednisolone Sodium Succinate 40 mg 08/04/24 13:30 08/04/24 14:16 Methylprednisolone Sod Succ 40mg Vial IV 08/06/24 05:31 Not Given Q8H DOREEN Nicotine 21 mg 08/03/24 23:09 08/04/24 00:18 Nicotine 21mg/24hr Patch TD 09/02/24 23:08 21 mg DAILYP PRN Administration Nicotine Cravings Ondansetron HCl 4 mg 08/03/24 22:54 Ondansetron 4mg/2ml Vial IV 09/02/24 22:53 Q8HP PRN Nausea Propranolol HCl 10 mg 08/04/24 21:00 Propranolol 20mg Tab PO 09/03/24 20:59 BID DOREEN Trazodone HCl 150 mg 08/04/24 21:00 Trazodone 50mg Tablet PO 09/03/24 20:59 HS [facility] Discontinued Medications Generic Name Dose Route Start Last Admin Trade Name Freq PRN Reason Stop Dose Admin Albuterol/Ipratropium 9 ml 08/03/24 21:32 08/03/24 21:59 Ipratropium/Albuterol 3 Ml [facility] 08/03/24 21:33 9 ml ONCE ONE Administration Albuterol/Ipratropium 3 ml 08/04/24 00:00 08/04/24 05:00 Ipratropium/Albuterol 3 Ml Neb 09/03/24 00:00 3 ml Q6RT DOREEN Administration Vancomycin HCl 1,000 mg/ 250 mls @ 125 mls/hr 08/04/24 03:42 08/04/24 05:35 Sodium Chloride IV 08/04/24 03:43 125 mls/hr ONCE ONE Administration Cefepime HCl 1 gm/ Sodium 50 mls @ 100 mls/hr 08/04/24 03:45 08/04/24 04:28 Chloride IV 08/14/24 03:44 100 mls/hr Q12H DOREEN Administration Magnesium Sulfate 2 gm in 50 mls @ 50 mls/hr 08/04/24 06:18 08/04/24 07:49 Magnesium Sulfate 2gm/50ml Premix IV 08/04/24 07:17 50 mls/hr ONCE ONE Administration Calcium Chloride 2 gm/ Sodium 270 mls @ 67.5 mls/hr 08/04/24 07:36 08/04/24 09:21 Chloride IV 08/04/24 07:37 Not Given ONCE ONE Calcium Gluconate/Sodium Chloride 2 gm in 100 mls @ 50 mls/hr 08/04/24 08:00 Calcium Gluconate 2,000mg/100ml Nacl Premix IV 08/04/24 09:59 ONCE ONE Calcium Gluconate/Sodium Chloride 2 gm in 100 mls @ 50 mls/hr 08/04/24 10:00 08/04/24 09:24 Calcium Gluconate 2,000mg/100ml Nacl Premix IV 08/04/24 11:59 50 mls/hr ONCE ONE Administration Iopamidol 70 ml 08/04/24 09:18 08/04/24 09:19 Iopamidol-370 (76%);100ml Bottle IV 08/04/24 09:19 70 ml ONCE ONE Administration Lorazepam 1 mg 08/04/24 03:08 08/04/24 03:12 Lorazepam 1mg Tablet PO 08/04/24 03:09 1 mg ONCE ONE Administration Methylprednisolone Sodium Succinate 125 mg 08/03/24 23:17 08/04/24 00:17 Methylprednisolone Sod Succ 125mg Vial IV 08/03/24 23:18 125 mg ONCE ONE Administration Methylprednisolone Sodium Succinate 40 mg 08/03/24 23:30 Methylprednisolone Sod Succ 125mg Vial IV 08/05/24 17:31 Q6H DOREEN Methylprednisolone Sodium Succinate 40 mg 08/04/24 06:00 08/04/24 05:35 Methylprednisolone Sod Succ 125mg Vial IV 08/06/24 00:01 40 mg Q6H DOREEN Administration Methylprednisolone Sodium Succinate 40 mg 08/04/24 12:00 08/04/24 11:30 Methylprednisolone Sod Succ 40mg Vial IV 08/06/24 00:01 40 mg Q6H DOREEN Administration Sodium Chloride 50 ml 08/04/24 09:18 08/04/24 09:19 0.9 % Sodium Chloride 50 Ml Vial IV 08/04/24 09:19 50 ml ONCE ONE Administration Sodium Chloride 10 ml 08/04/24 09:18 08/04/24 09:19 Sodium Chloride 0.9% 10ml Syr (Rad Only) IV 08/04/24 09:19 10 ml ONCE ONE Administration ORDERS Category Date Time Status XR chest portable Stat Exams 08/03/24 21:32 Completed BMP [Basic Metabolic Panel] Stat Lab 08/03/24 21:35 Completed BNP [NT Pro Brain Natriuretic Pep.] Stat Lab 08/03/24 21:35 Completed CBC w/Auto Diff [Complete Blood Count Auto Diff] Stat Lab 08/03/24 21:35 Completed VBG [Venous Blood Gas] Stat RT 08/03/24 21:27 Completed Medical Decision Narrative: In summary patient is a 69-year-old male who presents to the emergency department for evaluation of dyspnea. Patient is normotensive but tachycardic on arrival breathing 25 times a minute satting at 95% on 3 L by nasal cannula which is his baseline upon arrival, and afebrile. Patient did test positive for rhinovirus enterovirus during his previous admission. Physical exam is remarkable for tripod breathing with prolonged expiratory phase, breath sounds heard to bases but diffuse end expiratory wheezes in all 4 mcgill. Patient states that he has not had a cigarette since his admission on Thursday.. Differential diagnosis includes COPD exacerbation versus pneumonia etc. Initial workup will be conducted with hematologic labs plain film chest x-ray twelve- lead EKG VBG. Initial interventions include extended DuoNeb. Initial workup reviewed by me shows his hematologic labs are nonactionable his VBG shows preserved pH with a slightly elevated CO2 and my informal to rotation of his plain film chest x-ray shows no acute changes and significant chronic disease prior to radiology read. Upon repeat evaluation patient reported no improvement after nebulizer. Given this I had interactive discussion with hospital medicine about patient management and he will be it admitted for further evaluation and care <Christopher Ellsworth MD - Last Filed: 08/04/24 16:09> Vital Signs: 08/03/24 21:03 08/03/24 21:59 08/03/24 21:59 Temperature 98.6 F Temperature Source Oral Pulse Rate 121 H 119 H Pulse Rate [Right Radial] 120 H Respiratory Rate 25 H Blood Pressure Blood Pressure [Right Arm] 151/100 H Blood Pressure Mean [Right Arm] 117 Blood Pressure Source Blood Pressure Position 02 Sat by Pulse Oximetry 95 Oxygen Delivery Method Nasal Cannula Oxygen Flow Rate (LPM) 3 08/03/24 22:46 Temperature 98.2 F Temperature Source Oral Pulse Rate 121 H Pulse Rate [Right Radial] Respiratory Rate 16 Blood Pressure 141/71 H Blood Pressure [Right Arm] Blood Pressure Mean [Right Arm] Blood Pressure Source Automatic Cuff Blood Pressure Position Sitting 02 Sat by Pulse Oximetry Oxygen Delivery Method Room Air Oxygen Flow Rate (LPM) Lab Data Lab Results 08/03/24 21:25: C-Reactive Protein 5.1 H, Procalcitonin 0.053 08/03/24 21:27: VBG pH 7.37, VBG pCO2 58.5 H, VBG pO2 58.6 H, VBG HCO3 32.9 H, V BG Total CO2 34.7 H, VBG O2 Saturation 88.9 H, VBG Base Excess 7.6 H, VBG Lactic Acid 0.9 08/03/24 21:35: WBC 6.0, RBC 3.70 L, Hgb 11.5 L, Hct 36.4 L, MCV 98.5 H, MCH 31.2, MCHC 31.6 L, RDW 14.5, Plt Count 313, MPV 8.4, Neut % (Auto) 74.0, Lymph % (Auto) 16.7, Garfield % (Auto) 8.6, Eos % (Auto) 0.5, Baso % (Auto) 0.1, Neut # (Auto) 4.4, Lymph # (Auto) 1.0, Garfield # (Auto) 0.5, Eos # (Auto) 0.0, Baso # (Auto) 0.0, Sodium 139, Potassium 3.7 D, Chloride 96 L, Carbon Dioxide 39 H, Anion Gap 7.7, BUN 11 D, Creatinine 0.60 L, Estimated Creat Clear 65, Estimated GFR 134, Est GFR ( Amer) 163, Glucose 119 H, Calcium 6.0 L, NT-Pro-B Natriuret Pep 205 H Orders (Tests/Meds): ED MEDICATIONS Generic Name Dose Route Start Last Admin Trade Name Freq PRN Reason Stop Dose Admin Acetaminophen 650 mg 08/03/24 22:54 Acetaminophen 325mg Tab PO 09/02/24 22:53 Q4HP PRN Fever or Mild Pain (1-3) Albuterol Sulfate 2.5 mg 08/03/24 23:13 Albuterol 0.083% 2.5 Mg/3 Ml Neb IH 09/02/24 23:12 Q4HP PRN Shortness Of Breath Albuterol/Ipratropium 3 ml 08/04/24 10:00 08/04/24 14:01 Ipratropium/Albuterol 3 Ml [facility] 09/03/24 09:59 3 ml Q4RT DOREEN Administration Aspirin 325 mg 08/05/24 09:00 Aspirin 325mg Tablet PO 09/04/24 08:59 DAILY [facility] Budesonide 0.5 mg 08/04/24 18:00 Budesonide 0.5mg/2ml [facility] 09/03/24 17:59 BIDRT [facility] Enoxaparin Sodium 40 mg 08/04/24 09:00 08/04/24 09:24 Enoxaparin 40mg/0.4ml Syringe SQ 09/03/24 08:59 40 mg DAILY [facility] Administration Fluticasone/Umeclidinium/Vilanterol 1 puff 08/05/24 09:00 Fluticasone/Umeclidin/Vilanter 100/62.5/25mcg Inhaler 09/04/24 08:59 DAILY [facility] Hydralazine HCl 10 mg 08/04/24 03:22 Hydralazine 20mg/Ml Vial IV 09/03/24 03:21 Q6HP PRN Hypertensive Emergency Doxycycline Hyclate 100 mg/ 250 mls @ 166.667 mls/hr 08/04/24 12:00 08/04/24 12:59 Sodium Chloride IV 08/14/24 11:59 166.667 mls/hr Q12H DOREEN Administration Methylprednisolone Sodium Succinate 40 mg 08/04/24 13:30 08/04/24 14:16 Methylprednisolone Sod Succ 40mg Vial IV 08/06/24 05:31 Not Given Q8H DOREEN Nicotine 21 mg 08/03/24 23:09 08/04/24 00:18 Nicotine 21mg/24hr Patch TD 09/02/24 23:08 21 mg DAILYP PRN Administration Nicotine Cravings Ondansetron HCl 4 mg 08/03/24 22:54 Ondansetron 4mg/2ml Vial IV 09/02/24 22:53 Q8HP PRN Nausea Propranolol HCl 10 mg 08/04/24 21:00 Propranolol 20mg Tab PO 09/03/24 20:59 BID DOREEN Trazodone HCl 150 mg 08/04/24 21:00 Trazodone 50mg Tablet PO 09/03/24 20:59 HS DOREEN Discontinued Medications Generic Name Dose Route Start Last Admin Trade Name Julio PRN Reason Stop Dose Admin Albuterol/Ipratropium 9 ml 08/03/24 21:32 08/03/24 21:59 Ipratropium/Albuterol 3 Ml Neb 08/03/24 21:33 9 ml ONCE ONE Administration Albuterol/Ipratropium 3 ml 08/04/24 00:00 08/04/24 05:00 Ipratropium/Albuterol 3 Ml Neb 09/03/24 00:00 3 ml Q6RT DOREEN Administration Vancomycin HCl 1,000 mg/ 250 mls @ 125 mls/hr 08/04/24 03:42 08/04/24 05:35 Sodium Chloride IV 08/04/24 03:43 125 mls/hr ONCE ONE Administration Cefepime HCl 1 gm/ Sodium 50 mls @ 100 mls/hr 08/04/24 03:45 08/04/24 04:28 Chloride IV 08/14/24 03:44 100 mls/hr Q12H DOREEN Administration Magnesium Sulfate 2 gm in 50 mls @ 50 mls/hr 08/04/24 06:18 08/04/24 07:49 Magnesium Sulfate 2gm/50ml Premix IV 08/04/24 07:17 50 mls/hr ONCE ONE Administration Calcium Chloride 2 gm/ Sodium 270 mls @ 67.5 mls/hr 08/04/24 07:36 08/04/24 09:21 Chloride IV 08/04/24 07:37 Not Given ONCE ONE Calcium Gluconate/Sodium Chloride 2 gm in 100 mls @ 50 mls/hr 08/04/24 08:00 Calcium Gluconate 2,000mg/100ml Nacl Premix IV 08/04/24 09:59 ONCE ONE Calcium Gluconate/Sodium Chloride 2 gm in 100 mls @ 50 mls/hr 08/04/24 10:00 08/04/24 09:24 Calcium Gluconate 2,000mg/100ml Nacl Premix IV 08/04/24 11:59 50 mls/hr ONCE ONE Administration Iopamidol 70 ml 08/04/24 09:18 08/04/24 09:19 Iopamidol-370 (76%);100ml Bottle IV 08/04/24 09:19 70 ml ONCE ONE Administration Lorazepam 1 mg 08/04/24 03:08 08/04/24 03:12 Lorazepam 1mg Tablet PO 08/04/24 03:09 1 mg ONCE ONE Administration Methylprednisolone Sodium Succinate 125 mg 08/03/24 23:17 08/04/24 00:17 Methylprednisolone Sod Succ 125mg Vial IV 08/03/24 23:18 125 mg ONCE ONE Administration Methylprednisolone Sodium Succinate 40 mg 08/03/24 23:30 Methylprednisolone Sod Succ 125mg Vial IV 08/05/24 17:31 Q6H DOREEN Methylprednisolone Sodium Succinate 40 mg 08/04/24 06:00 08/04/24 05:35 Methylprednisolone Sod Succ 125mg Vial IV 08/06/24 00:01 40 mg Q6H DOREEN Administration Methylprednisolone Sodium Succinate 40 mg 08/04/24 12:00 08/04/24 11:30 Methylprednisolone Sod Succ 40mg Vial IV 08/06/24 00:01 40 mg Q6H DOREEN Administration Sodium Chloride 50 ml 08/04/24 09:18 08/04/24 09:19 0.9 % Sodium Chloride 50 Ml Vial IV 08/04/24 09:19 50 ml ONCE ONE Administration Sodium Chloride 10 ml 08/04/24 09:18 08/04/24 09:19 Sodium Chloride 0.9% 10ml Syr (Rad Only) IV 08/04/24 09:19 10 ml ONCE ONE Administration ORDERS Category Date Time Status XR chest portable Stat Exams 08/03/24 21:32 Completed BMP [Basic Metabolic Panel] Stat Lab 08/03/24 21:35 Completed BNP [NT Pro Brain Natriuretic Pep.] Stat Lab 08/03/24 21:35 Completed CBC w/Auto Diff [Complete Blood Count Auto Diff] Stat Lab 08/03/24 21:35 Completed VBG [Venous Blood Gas] Stat RT 08/03/24 21:27 Completed Medical Decision Narrative: In summary patient is a 69-year-old male who presents to the emergency department for evaluation of dyspnea. Patient is normotensive but tachycardic on arrival breathing 25 times a minute satting at 95% on 3 L by nasal cannula which is his baseline upon arrival, and afebrile. Patient did test positive for rhinovirus enterovirus during his previous admission. Physical exam is remarkable for tripod breathing with prolonged expiratory phase, breath sounds heard to bases but diffuse end expiratory wheezes in all 4 mcgill. Patient states that he has not had a cigarette since his admission on Thursday.. Differential diagnosis includes COPD exacerbation versus pneumonia etc. Initial workup will be conducted with hematologic labs plain film chest x-ray twelve- lead EKG VBG. Initial interventions include extended DuoNeb. Initial workup reviewed by me shows his hematologic labs are nonactionable his VBG shows preserved pH with a slightly elevated CO2 and my informal to rotation of his plain film chest x-ray shows no acute changes and significant chronic disease prior to radiology read. Upon repeat evaluation patient reported no improvement after nebulizer. Given this I had interactive discussion with hospital medicine about patient management and he will be it admitted for further evaluation and care I was consulted by the ABE[facility], and we discussed the complexity of the problems being addressed. I approved the treatment and management plan for this patient's care in the Emergency Department, thus performing a substantive portion of the medical decision making. Christopher Ellsworth MD Critical Care <ANÍBAL Harvey - Last Filed: 08/03/24 23:09> Critical Care Time Critical Care Time: No
--- NOTE | 2024-08-03 21:17 | ECG_ITS ---
APPROVED REPORT Exam: Resting ECG HR:116 bpm ECG Measurements Heart Rate 116 AXES VA 112 P 82 QRSd 102 QRS 74 QT 326 T 75 QTc 395 Conclusion Sinus tachycardia No acute ischemic change Possible peaked T waves Electronically signed by : TAMI LOZADA, 08/03/2024 21:40:01
--- NOTE | 2024-08-03 21:32 | XR_ITS ---
PROCEDURE INFORMATION: Exam: XR Chest Exam date and time: 08/03/2024 9:41 PM Age: 69 years old Clinical indication: Dyspnea TECHNIQUE: Imaging protocol: Radiologic exam of the chest. Views: 1 view. Total images: 2 COMPARISON: CR XR CHEST PORTABLE 07/30/2024 7:38 PM FINDINGS: Tubes, catheters and devices: EKG leads are present. Status post right subclavian infusion port with catheter tip in the upper SVC. Lungs: Moderate to severe emphysema/COPD. Right perihilar and left basilar scarring. No acute infiltrate, airspace consolidation or vascular congestion. Calcified left lower lobe granuloma. Pleural spaces: Unremarkable. No pleural effusion. No pneumothorax. Heart/Mediastinum: Unremarkable. No cardiomegaly. No mediastinal widening or hilar enlargement. Diaphragm: Flattened hemidiaphragms. Bones/joints: Unremarkable. Other findings: Slight rotation to the right. IMPRESSION: 1. No radiographically acute cardiopulmonary process. 2. Moderate to severe emphysema/COPD. 3. Right perihilar and left basilar scarring.
[2024-08-03 21:37] LABS: Lactate Venous 0.9 mmol/L (0.4-2.0); VBG Base Excess 7.6 mmol/L (-2.4-2.3); VBG HCO3 32.9 mmol/L (23-30); VBG Oxygen Saturation 88.9 % (50-70); VBG PCO2 58.5 mmol/L (35-51); VBG PH 7.37 mmol/L (7.31-7.41); VBG PO2 58.6 mmol/L (28-40); VBG Total CO2 34.7 mmol/L (23-27)
--- NOTE | 2024-08-03 21:37 | PC.NURSE ---
RT notified for breathing trx
[2024-08-03 21:45] LABS: Chloride 96 mmol/L (98-107); Potassium 3.7 mmoL/L (3.5-5.1); Sodium 139 mmol/L (136-145)
[2024-08-03 21:48] LABS: Anion Gap 7.7 mEq/L (5-15); Blood Urea Nitrogen 11 mg/dl (9-20); Carbon Dioxide 39 mmol/L (22.0-30.0); Creatinine Clearance Estimated 65 mL/min (50-200); Estimated Glomerular Filt Rate 134 ml/min (>60); GFR (African American) 163 ML/MIN (>60)
[2024-08-03 21:49] LABS: Glucose 119 mg/dl (74-100)
[2024-08-03 21:51] LABS: Basophils % 0.1 % (0.1-2.0); Eosinophils % 0.5 % (0.1-12.0); Hematocrit 36.4 % (42.0-52.0); Hemoglobin 11.5 g/dL (14.1-18.0); Lymphocytes % 16.7 % (10-50); Mean Corpuscular HGB Conc 31.6 g/dL (31.8-35.4); Mean Corpuscular Hemoglobin 31.2 pg (27.0-31.2); Mean Corpuscular Volume 98.5 fl (80-94); Mean Platelet Volume 8.4 fl (7.4-10.4); Monocytes # 0.5 K/mm3 (0.1-1.0); Monocytes % 8.6 % (1.7-9.3); Neutrophils # 4.4 K/mm3 (1.8-7.8); Platelet Count 313 K/mm3 (142-424); Red Cell Distribution Width 14.5 % (11.5-17.5)
[2024-08-03 21:58] LABS: NT Pro Brain Natriuretic Pep. 205 pg/mL (0-125)
[2024-08-03 21:59] VITALS: PULSE 119; PULSE 121
[2024-08-03] MEDS: IPRATROPIUM/ALBUTEROL 3 ML NEB 9 ML IH (21:59)
[2024-08-03 22:15] VITALS: RESP 18; RESP 21
--- NOTE | 2024-08-03 22:33 | PC.NURSE ---
[id number] report called to Valarie KLINE
[2024-08-03 22:46] VITALS: BP 141/71; PULSE 121; RESP 16; TEMP 36.8; O2SAT 98
--- NOTE | 2024-08-03 22:52 | EXP.HP ---
History of Present Illness *Admission Date: 08/03/24 *Reason for visit:: Persistent shortness of breath and increased work of breathing *History of present illness: Patient who is a daily smoker with past medical history of metastatic lung cancer, COPD on 3 L home oxygen, hyperlipidemia, hypertension. Patient recently cared for for COPD exacerbation 07/30 to 08/02. Patient patient presents to hospital with with complaining of persistent shortness of breath, increased work of breathing, and anxiety. Patient states that his breathing issues returned shortly after hospital disposition. Reports chills but denies fevers. States he usually uses 3 L oxygen at home, but increased oxygen administration over past 24 hours without relief of breathing difficulties. Denies any known sick contacts or recent travel. Aware that he was diagnosed with rhinovirus during recent hospitalization. Patient given multiple DuoNeb treatments in emergency room, with breathing failing to improve. [facility] Disclaimer: The information contained in this section may have been updated after the patient was seen, as this information can be updated by other users. Medical History Bilateral impacted cerumen Tinnitus Hearing loss Lung nodule Hilar lymphadenopathy Pneumonia Sleep apnea Emphysema/COPD Chronic cough Bronchitis Allergies History of anemia Lung collapse Nodule of right lung Tobacco abuse disorder Tobacco abuse counseling Small cell lung cancer Smoking greater than 30 pack years Chronic hypoxemic respiratory failure COPD (chronic obstructive pulmonary disease) Dyspnea on exertion On home O2 Sinus problem History of chemotherapy History of radiation therapy Personal history of arthritis History of lung disease Hyperlipemia Cancer Asthma Essential hypertension COPD exacerbation Surgical History History of insertion of tunneled central venous catheter (CVC) with port History of colonoscopy Hx of cardiac catheterization Normal coronary arteries History of sinus surgery Family History Other Cancer Diabetes Social History (Updated 08/04/24 @ 01:04 by Sandra Cummings RN) Smoking Status: Current every day smoker tobacco type: cigarettes packs per day: 1 years smoked: 50 alcohol intake: former substance use type: denies use current occupational status: retired and disabled Travel in the last 8 weeks: None household members: spouse housing: house caffeine: Yes Review of Systems Review of Systems Review of systems (narrative): All pertinent positive in HPI. Please assume all the 14 review of system is negative. Meds Home Medications and Allergies Home Medications ?Medication ?Instructions ?Recorded ?Confirmed ?Type trazodone 150 mg tablet 150 mg PO HS 07/03/22 08/04/24 History fluticasone fur. 100 mcg-umeclid 1 inh inhalation DAILY Copd 01/05/23 08/04/24 History 62.5 mcg-vilant 25 mcg inhalat.powder (Trelegy Ellipta) aspirin 325 mg tablet 325 mg PO DAILY 05/11/23 08/04/24 History propranolol 10 mg tablet 10 mg PO BID 12/16/23 08/04/24 History albuterol sulfate 90 mcg/actuation 2 puff inhalation QIDP PRN 06/11/24 08/04/24 History aerosol inhaler Shortness Of Breath Or Wheezing ipratropium 0.5 mg-albuterol 3 mg 3 ml inhalation QIDP PRN Shortness 06/12/24 08/04/24 Rx (2.5 mg base)/3 mL nebulization Of Breath Or Wheezing 30 days #180 soln mL azelastine 137 mcg (0.1 %) nasal 2 spray intranasal BID 07/31/24 08/04/24 History spray cefdinir 300 mg capsule 300 mg PO BID 5 days #9 caps 08/02/24 08/04/24 Rx prednisone 20 mg tablet 40 mg (2 x 20 mg) PO DAILY 3 days 08/02/24 08/04/24 Rx #6 tabs New Prescriptions to Start Prescriptions: Allergies Allergy/AdvReac Type Severity Reaction Status Date / Time silver Allergy Severe Rash Verified 05/25/24 09:23 [From Tegaderm AG Mesh] Penicillins [PENICILLINS] Allergy Mild Verified 05/25/24 09:23 amitriptyline AdvReac Intermediate gi upset Verified 05/25/24 09:23 adhesive AdvReac Verified 05/25/24 09:23 hydrocodone AdvReac Verified 05/25/24 09:23 Exam Data for Last 24 hours Vital signs and Labs for Last 24 Hours: Temp Pulse Resp BP Pulse Ox O2 Del Method O2 Flow Rate 98.2 F 121 H 16 141/71 H 95 Room Air 3 08/03/24 22:46 08/03/24 22:46 08/03/24 22:46 08/03/24 22:46 08/03/24 21:03 08/03/24 22:46 08/03/24 21:03 FiO2 30 08/03/24 22:15 Laboratory Results - last 24 hr 08/03/24 21:27: VBG pH 7.37, VBG pCO2 58.5 H, VBG pO2 58.6 H, VBG HCO3 32.9 H, VBG Total CO2 34.7 H, VBG O2 Saturation 88.9 H, VBG Base Excess 7.6 H, VBG Lactic Acid 0.9 08/03/24 21:35: WBC 6.0, RBC 3.70 L, Hgb 11.5 L, Hct 36.4 L, MCV 98.5 H, MCH 31.2, MCHC 31.6 L, RDW 14.5, Plt Count 313, MPV 8.4, Neut % (Auto) 74.0, Lymph % (Auto) 16.7, [place] % (Auto) 8.6, Eos % (Auto) 0.5, Baso % (Auto) 0.1, Neut # (Auto) 4.4, Lymph # (Auto) 1.0, [place] # (Auto) 0.5, Eos # (Auto) 0.0, Baso # (Auto) 0.0, Sodium 139, Potassium 3.7 D, Chloride 96 L, Carbon Dioxide 39 H, Anion Gap 7.7, BUN 11 D, Creatinine 0.60 L, Estimated Creat Clear 65, Estimated GFR 134, Est GFR ( Amer) 163, Glucose 119 H, Calcium 6.0 L, NT-Pro-B Natriuret Pep 205 H I & O for Last 24 hours: Intake & Output 07/31/24 08/01/24 08/02/24 08/03/24 23:59 23:59 23:59 23:59 Weight 64.41 kg Constitutional Constitutional: severe distress, chronically ill appearing, disheveled and agitated *Routine HEENT Exam Head: Present normocephalic Eye: Present EOMI and normal accommodation ENT: Present mucous membranes dry *Routine Neck Exam Neck: Present supple and full ROM *Routine Respiratory Exam Respiratory: Present prolonged expiratory phase and diminished air movement *Routine Cardiovascular Exam Cardiovascular: Present tachycardia *Routine Abdominal Exam Abdominal: Present soft and normoactive bowel sounds *Routine Rectal Exam Rectal:: deferred *Routine Genitalia Exam Genitalia:: deferred *Routine Extremities Exam Extremities: Present normal capillary refill *Routine Skin Exam Skin: Present intact *Routine Neurological Exam Neurological: Present alert and oriented X3 Assessment and Plan *Assessment and plan (1) Acute exacerbation of chronic obstructive pulmonary disease: Status: Acute Category: Medical Code(s): J44.1 - Chronic obstructive pulmonary disease with (acute) exacerbation (2) Metastatic lung cancer (metastasis from lung to other site): Status: Acute Category: Medical Code(s): C34.90 - Malignant neoplasm of unspecified part of unspecified bronchus or lung (3) Tobacco dependence: Status: Acute Category: Medical Code(s): F17.200 - Nicotine dependence, unspecified, uncomplicated Plan Patient who is a daily smoker with past medical history of metastatic lung cancer, COPD on 3 L home oxygen, hyperlipidemia, hypertension. Patient presents after treatment as inpatient for COPD exacerbation at this institution from 07/30 to 08/02 with persistent SOB/CARRENO. Patient with WBC 6.0, tachypneic, using accessory muscles of respiration requiring BiPAP in emergency room at time of hospitalization. Problems as follows: COPD exacerbation: ? Patient positive for rhinovirus during recent hospitalization 07/30 to 08/02. Lactic acid today 0.9 versus 1.3 08/01/2024. Patient's ABG has pH 7.37 today versus pH 7.38 08/01/2024. Patient's pCO2 on ABG 58.5 today versus 51.5 08/01/2024. Implying that ABG essentially unchanged from a previous admission. Will restart high-dose glucocorticoid therapy. Gave Solu-Medrol 125 mg IV x 1. Starting tomorrow I will continue Solu-Medrol 40 mg IV every 6 x 8 doses. Ordered DuoNebs 2.5 mg inhaled every 6 hours. Also ordered albuterol 2.5 mg inhaled every 4 hours as needed shortness of breath. I ordered incentive spirometer every 2 hours while awake. I personally read patient's chest x-ray noting hyperinflated lungs, without infiltrates, normal costovertebral angles without blunting, and no signs of pulmonary edema. Suspect patient's viral illness causing persistent COPD exacerbation. I ordered CTA chest to rule out pulmonary embolus given persistent respiratory distress. I consulted pulmonary to see patient in a.m. I ordered procalcitonin and CRP pending at the time of writing this note. I also ordered repeat CBC for a.m. Will discontinue home cefdinir 300 mg p.o. twice daily started at time of hospital discharge, and placed patient on Healthcare associated pneumonia coverage IV cefepime/vancomycin. Will order blood cultures prior to initiation of vancomycin/cefepime therapy. Current Tobacco user: ? Smoking cessation advice given by Dr. Nuñez at time of hospitalization. As needed nicotine 21 mg daily as needed patches ordered by myself. H/O Lung cancer: Consult pulmonary to see patient during hospitalization. Hypertensive urgency: Hydralazine 10 mg IV every 6 as needed systolic blood pressure greater than 170 or diastolic greater than 100. Hyperlipidemia: Continue home medications PPx: Lovenox subcutaneous CODE STATUS DNI per patient's request with listening. MDM [place]: High, patient suffering from acute COPD exacerbation refractory to medical management as inpatient 07/30 to 08/02 which poses a threat to life and bodily function. Data: High, please see plan section above above for lab work/imaging details. Patient's acted as independent historian, and confirmed that patient smokes at home but has not smoked since hospital discharge 08/02/2024. I personally read patient's chest x-ray with my findings noted in COPD plan section. I spoke with the emergency room provider Kiel Velasquez while admitting this patient to the hospital, and we agreed that although patient was just discharged from this institution 08/02, patient was in respiratory distress, required BiPAP continuous until respiratory status improved, and needed to be admitted to the hospital. Risk: High, I decided to admit this patient to hospital due to acute on chronic respiratory failure secondary to COPD exacerbation which poses a threat to life and bodily function. Patient given multiple breathing treatments in emergency room which failed to resolve shortness of breath issues. Patient requiring continuous BiPAP for adequate oxygenation. Patient also decided to be DNI during goals of care discussion with Dr. Nuñez at time of admission. Patient's present during discussion. 65 minutes of total care time spent on this patient with Dr. Nuñez 08/03/2024
[2024-08-03 23:00] VITALS: BMI 19.2
[2024-08-03 23:04] VITALS: BP 139/77; PULSE 119; RESP 22; TEMP 36.8; O2SAT 98
[2024-08-04] VITALS (11 sets, daily range): BP systolic 123–151; BP diastolic 70–94; PULSE 78–112; RESP 17–19; TEMP 36.6–37; O2SAT 95–100; BMI 19.1
[2024-08-04] MEDS: IPRATROPIUM/ALBUTEROL 3 ML NEB IH ×6 (00:16→22:03)
[2024-08-04] MEDS: METHYLPREDNISOLONE SOD SUCC 125MG VIAL 125 MG IV (00:17)
[2024-08-04] MEDS: NICOTINE 21MG/24HR PATCH 21 MG TD (00:18)
[2024-08-04] MEDS: LORazepam 1MG TABLET 1 MG PO (03:12)
[2024-08-04 04:13] LABS: C-Reactive Protein 5.1 mg/L (0-4)
[2024-08-04 04:25] LABS: Procalcitonin 0.053 ng/mL (0.0-2.0)
[2024-08-04] MEDS: CEFEPIME HCL 1 GM in 0.9 % SODIUM CHLORIDE 50 ML IV (04:28)
--- NOTE | 2024-08-04 04:53 | PC.NURSE ---
69 yo male pt A/O X 3. Pt had difficult time adjusting to Bipap but agreed to use after order obtained for ativan. Med provided and pt was able to rest some for a couple of hours. He tolerates 02 at 3 liters for short periods but then complains of air hunger and must utilize Bipap. Pt voiding per urinal. Antibiotics administered per order via port.
[2024-08-04] MEDS: VANCOMYCIN HCL 1,000 MG in 0.9 % SODIUM CHLORIDE 250 ML 125 MG IV (05:35)
[2024-08-04] MEDS: METHYLPREDNISOLONE SOD SUCC 125MG VIAL 40 MG IV (05:35)
[2024-08-04 05:37] LABS: Basophils % 0.1 % (0.1-2.0); Eosinophils % 0.7 % (0.1-12.0); Hematocrit 35.8 % (42.0-52.0); Hemoglobin 11.2 g/dL (14.1-18.0); Lymphocytes # 0.4 K/mm3 (0.7-4.5); Lymphocytes % 5.9 % (10-50); Mean Corpuscular HGB Conc 31.3 g/dL (31.8-35.4); Mean Corpuscular Hemoglobin 31.3 pg (27.0-31.2); Mean Corpuscular Volume 99.8 fl (80-94); Mean Platelet Volume 8.2 fl (7.4-10.4); Monocytes # 0.1 K/mm3 (0.1-1.0); Neutrophils # 5.8 K/mm3 (1.8-7.8); Neutrophils % 91.3 % (37.0-80.0); Platelet Count 313 K/mm3 (142-424); Red Blood Count 3.59 M/mm3 (4.60-6.20); Red Cell Distribution Width 14.6 % (11.5-17.5); White Blood Count 6.3 K/mm3 (4.8-10.8)
[2024-08-04 05:43] LABS: MANUAL DIFFERENTIAL MANUAL DIFFERENTIAL (MANUAL DIFF)
[2024-08-04 05:44] LABS: Chloride 95 mmol/L (98-107)
[2024-08-04 05:45] LABS: Potassium 4.1 mmoL/L (3.5-5.1); Sodium 136 mmol/L (136-145)
[2024-08-04 05:47] LABS: Blood Urea Nitrogen 11 mg/dl (9-20); Creatinine Clearance Estimated 65 mL/min (50-200); Estimated Glomerular Filt Rate 134 ml/min (>60); GFR (African American) 163 ML/MIN (>60)
[2024-08-04 05:48] LABS: Anion Gap 8.1 mEq/L (5-15); Calcium 5.8 mg/dl (8.4-10.2); Carbon Dioxide 37 mmol/L (22.0-30.0); Glucose 134 mg/dl (74-100); Magnesium 1.4 mg/dl (1.6-2.3)
[2024-08-04 06:12] LABS: Lymphocytes % 6 % (10-50); Neutrophils % 94 % (42-76); Total Cells Counted 100
[2024-08-04 06:13] LABS: Platelet Estimate Normal; RBC Morphology Normal
[2024-08-04] MEDS: MAGNESIUM SULFATE IN WATER 2 GM/50 ML PIGGYBACK IV (07:49)
--- NOTE | 2024-08-04 07:59 | HMH.PHAINT1 ---
Pharmacy Intervention Comments: Home medication list verified using discharge medication list from 08/02/24.
--- NOTE | 2024-08-04 08:00 | CT_ITS ---
FINAL REPORT TECHNIQUE: Thin section axial CT with contrast with multiplanar reconstruction This study was performed with techniques to keep radiation doses as low as reasonably achievable, (ALARA). Individualized dose reduction techniques using automated exposure control or adjustment of mA and/or kV according to the patient's size were employed. CLINICAL HISTORY: Worsening hypoxia rule out pulmonary embolus COMPARISON: 06/10/2024 FINDINGS: Pulmonary vessels enhance in normal fashion without evidence of embolism. Thoracic aorta shows no dissection or aneurysm. No pulmonary mass or infiltrate is present. Changes of emphysema are present. There is a spiculated soft tissue density in the right suprahilar region, suggestive of fibrotic tissue or post treatment change. There is no significant pleural effusion. There is no significant pericardial effusion. No mediastinal or hilar adenopathy is present. IMPRESSION: No evidence of pulmonary embolism No acute lung disease is present. Reviewed, Interpreted and Dictated by Brandon Greenberg MD Transcribed by Gale James Authenticated and [facility]
--- NOTE | 2024-08-04 08:54 | P.PN_ITS ---
Subjective *Date: 08/04/24 *Time: 13:10 Interval history: Necessitating 3 L nasal cannula today. Tolerated noninvasive positive pressure ventilation overnight. States he feels marginally better today. Still quite anxious. No nausea or vomiting. No chest pain. No confusion or altered mental status at bedside. Medical Exam Vital signs and Labs for Last 24 Hours: Vital Signs Temp Pulse Pulse Resp BP BP Pulse Ox 08/04/24 08:00 98.6 F 102 H 19 143/78 H 98 08/04/24 06:58 08/04/24 05:01 102 H 08/04/24 05:01 105 H 08/04/24 05:01 96 08/04/24 05:01 08/04/24 05:00 08/04/24 03:00 08/04/24 01:00 08/04/24 00:00 95 08/03/24 23:04 98.3 F 119 H 22 139/77 98 08/03/24 22:46 98.2 F 121 H 16 141/71 H 08/03/24 22:15 08/03/24 21:59 119 H 08/03/24 21:59 121 H 08/03/24 21:03 98.6 F 120 H 25 H 151/100 H 95 O2 Del Method O2 Flow Rate FiO2 08/04/24 08:00 Nasal Cannula 08/04/24 06:58 CPAP 08/04/24 05:01 08/04/24 05:01 08/04/24 05:01 BiPAP 40 08/04/24 05:01 40 08/04/24 05:00 BiPAP 08/04/24 03:00 CPAP 08/04/24 01:00 Nasal Cannula 3 08/04/24 00:00 Nasal Cannula 3 08/03/24 23:04 BiPAP 08/03/24 22:46 Room Air 08/03/24 22:15 30 08/03/24 21:59 08/03/24 21:59 08/03/24 21:03 Nasal Cannula 3 Intake and Output 08/03/24 08/04/24 08/04/24 23:59 07:59 15:59 Output Total 100 / 100 Balance -100 / -100 Output: Output, Urine Amount 100 / 100 Other: Weight 64.3 kg 64 kg Patient Weight 08/04/24 23:59 Weight 64 kg Laboratory Results - last 24 hr 08/03/24 21:25: C-Reactive Protein 5.1 H, Procalcitonin 0.053 08/03/24 21:27: VBG pH 7.37, VBG pCO2 58.5 H, VBG pO2 58.6 H, VBG HCO3 32.9 H, VBG Total CO2 34.7 H, VBG O2 Saturation 88.9 H, VBG Base Excess 7.6 H, VBG Lactic Acid 0.9 08/03/24 21:35: WBC 6.0, RBC 3.70 L, Hgb 11.5 L, Hct 36.4 L, MCV 98.5 H, MCH 31.2, MCHC 31.6 L, RDW 14.5, Plt Count 313, MPV 8.4, Neut % (Auto) 74.0, Lymph % (Auto) 16.7, [place] % (Auto) 8.6, Eos % (Auto) 0.5, Baso % (Auto) 0.1, Neut # (Auto) 4.4, Lymph # (Auto) 1.0, [place] # (Auto) 0.5, Eos # (Auto) 0.0, Baso # (Auto) 0.0, Sodium 139, Potassium 3.7 D, Chloride 96 L, Carbon Dioxide 39 H, Anion Gap 7.7, BUN 11 D, Creatinine 0.60 L, Estimated Creat Clear 65, Estimated GFR 134, Est GFR ( Amer) 163, Glucose 119 H, Calcium 6.0 L, NT-Pro-B Natriuret Pep 205 H 08/04/24 05:27: WBC 6.3, RBC 3.59 L, Hgb 11.2 L, Hct 35.8 L, MCV 99.8 H, MCH 31.3 H, MCHC 31.3 L, RDW 14.6, Plt Count 313, MPV 8.2, Neut % (Auto) 91.3 H, Lymph % (Auto) 5.9 L, [place] % (Auto) 2.0, Eos % (Auto) 0.7, Baso % (Auto) 0.1, Neut # (Auto) 5.8, Lymph # (Auto) 0.4 L, [place] # (Auto) 0.1, Eos # (Auto) 0.0, Baso # (Auto) 0.0, Total Counted 100, Neutrophils % (Manual) 94 H, Lymphocytes % (Manual) 6 L, Platelet Estimate Normal, RBC Morphology Normal, Sodium 136, Potassium 4.1, Chloride 95 L, Carbon Dioxide 37 H, Anion Gap 8.1, BUN 11, Creatinine 0.60 L, Estimated Creat Clear 65, Estimated GFR 134, Est GFR ( Amer) 163, Glucose 134 H, Calcium 5.8 L, Magnesium 1.4 L D I & O for Labs for Last 24 Hours: Intake & Output 08/01/24 08/02/24 08/03/24 08/04/24 23:59 23:59 23:59 23:59 Output Total 100 / 100 Balance -100 / -100 Weight 64.3 kg 64 kg Constitutional: Present mild distress, thin, chronically ill appearing and cooperative Head: Present atraumatic and normocephalic ENT: Present normal exam Respiratory: Present prolonged expiratory phase and wheezes; Absent rhonchi or crackles Comment:: Poor air movement Cardiac: Present Reg Rate and Rhythm GI: Present normal bowel sounds; Absent tenderness Extremities: Present normal inspection and full ROM Skin: Present intact; Absent erythema Neuro: Present Grossly Intact, alert, awake, oriented x 3 and moves all extremities Assessment and Plan *Assessment and plan (1) Acute on chronic hypoxic respiratory failure: Status: Acute Category: Medical Code(s): J96.21 - Acute and chronic respiratory failure with hypoxia (2) Enteroviral infection: Status: Acute Category: Medical Code(s): B34.1 - Enterovirus infection, unspecified (3) Acute exacerbation of chronic obstructive pulmonary disease: Status: Acute Category: Medical Code(s): J44.1 - Chronic obstructive pulmonary disease with (acute) exacerbation (4) Acute and chronic respiratory failure with hypercapnia: Status: Acute Category: Medical Code(s): J96.22 - Acute and chronic respiratory failure with hypercapnia (5) Tobacco abuse disorder: Status: Chronic Category: Medical Code(s): Z72.0 - Tobacco use (6) Small cell lung cancer: Status: Chronic Category: Medical Code(s): C34.90 - Malignant neoplasm of unspecified part of unspecified bronchus or lung (7) Smoking greater than 30 pack years: Status: Chronic Category: Social Hx Code(s): F17.210 - Nicotine dependence, cigarettes, uncomplicated (8) Chronic hypoxemic respiratory failure: Status: Chronic Category: Medical Code(s): J96.11 - Chronic respiratory failure with hypoxia (9) Cachexia: Status: Acute Category: Medical Code(s): R64 - Cachexia Plan 69-year-old male with history of lung cancer, severe COPD, presents with worsening shortness of breath over the past week. Was discharged 48 hours ago with rhino/enterovirus but doing better and on baseline oxygen. Became more anxious at home. Developed worsening shortness of breath. Carlos presented to the ER, necessitating observation at this time. Patient currently on 3 L oxygen. Will continue IV steroids and de-escalate antibiotics. Discussed case with pulmonology, anticipate discharge in the next day or 2. Continues to require management for aggressive inhaler treatment, pulmonary toilet, monitoring for stability in his respiratory status. Problems addressed as follows: Acute on chronic hypoxic respiratory failure with hypercapnia due to COPD exacerbation -DuoNebs every 4 hours, Pulmicort twice daily. - Continue methylprednisolone 40 mg IV every 8 hours. will wean to prednisone at time of discharge to complete 7 days of steroid therapy. -Wean antibiotics to doxycycline 100 mg twice daily. -Resume Trelegy daily -Potassium 4.1, magnesium 1.4, replaced with 2 g IV magnesium today. kidney function normal with BUN 11, creatinine 0.6. White count normal at 6.3. Repeat CBC, CMP, Mg ordered for the morning. -Respiratory panel earlier this week positive for rhino/enterovirus. Tobacco use disorder: Counseled on need to stop smoking. Seriously complicates patient's respiratory disease. Nicotine patch as needed daily during admission. 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 Protein supplementation with meals DNI Regular diet Prophylactic Lovenox
[2024-08-04] MEDS: IOPAMIDOL-370 (76%);100ML BOTTLE 70 ML IV (09:19)
[2024-08-04] MEDS: SODIUM CHLORIDE 0.9% 10ML SYR (RAD ONLY) 10 ML IV (09:19)
[2024-08-04] MEDS: 0.9 % SODIUM CHLORIDE 50 ML VIAL IV (09:19)
[2024-08-04] MEDS: ENOXAPARIN 40MG/0.4ML SYRINGE 40 MG SQ (09:24)
[2024-08-04] MEDS: CALCIUM GLUC IN NACL, ISO-OSM 2 GM/100 ML BAG IV (09:24)
[2024-08-04] MEDS: METHYLPREDNISOLONE SOD SUCC 40MG VIAL 40 MG IV ×2 (11:30→20:30)
[2024-08-04] MEDS: DOXYCYCLINE HYCLATE 100 MG in 0.9 % SODIUM CHLORIDE 250 ML 166.667 MG IV ×2 (12:59→23:55)
--- NOTE | 2024-08-04 15:23 | PC.NURSE ---
pt has remained a&ox4 this shift. pt has been using the urinal and ambulating to bathroom w/ . pt has had no complains throughout shift. pt started shift on bipap, then weaned to 4L nc, and is now weaned to 2L nc. hospitalist stated in rounds he would be switching steroids to PO instead of IV starting tomorrow. no new orders at this time. call light within reach. @ bedside.
[2024-08-04 16:31] LABS: Albumin Level 4.3 g/dl (3.5-5.0); Chloride 96 mmol/L (98-107); Sodium 135 mmol/L (136-145)
[2024-08-04] MEDS: ALBUTEROL 0.083% 2.5 MG/3 ML NEB IH (16:32)
[2024-08-04 16:33] LABS: Blood Urea Nitrogen 16 mg/dl (9-20)
[2024-08-04 16:34] LABS: Alanine Aminotransferase 29 U/L (12-78); Albumin/Globulin Ratio 1.5 (1.1-1.8); Alkaline Phosphatase 74 U/L (38-126); Aspartate Amino Transferase 35 U/L (17-59); Bilirubin,Total 0.4 mg/dl (0.2-1.3); Calcium 6.1 mg/dl (8.4-10.2); Carbon Dioxide 35 mmol/L (22.0-30.0); Creatinine Clearance Estimated 65 mL/min (50-200); Estimated Glomerular Filt Rate 112 ml/min (>60); GFR (African American) 136 ML/MIN (>60); Globulin 2.8 g/dL (1.3-3.2); Glucose 177 mg/dl (74-100); Magnesium 1.8 mg/dl (1.6-2.3); Total Protein,Serum 7.1 g/dl (6.3-8.2)
--- NOTE | 2024-08-04 17:41 | PC.NURSE ---
pt DNI signed and on chart, awaiting hospitalist signature
[2024-08-04] MEDS: BUDESONIDE 0.5MG/2ML NEB 0.5 MG IH (18:54)
[2024-08-04] MEDS: TRAZODONE 50MG TABLET 150 MG PO (20:26)
[2024-08-04] MEDS: PROPRANOLOL 20MG TAB 10 MG PO (20:26)
[2024-08-05] VITALS: BP 105/52; PULSE 89; RESP 16; TEMP 36.6; O2SAT 99
[2024-08-05 00:54] VITALS: BMI 16.6
[2024-08-05 04:00] VITALS: BP 155/75; PULSE 100; RESP 20; TEMP 36.5; O2SAT 94
--- NOTE | 2024-08-05 04:57 | PC.NURSE ---
Non-compliant with BIPAP. Wore 02 at 2lnc. Port to right upper chest wall intact, no s/s of infection or complications. Remains on contact dropplet precautions for Rhino/Enterovirus. No complaints voiced.
[2024-08-05] MEDS: METHYLPREDNISOLONE SOD SUCC 40MG VIAL 40 MG IV (05:13)
[2024-08-05 06:20] LABS: Eosinophils % 0.1 % (0.1-12.0); Hematocrit 32.9 % (42.0-52.0); Hemoglobin 10.5 g/dL (14.1-18.0); Lymphocytes # 0.6 K/mm3 (0.7-4.5); Lymphocytes % 10.5 % (10-50); Mean Corpuscular HGB Conc 31.9 g/dL (31.8-35.4); Mean Corpuscular Hemoglobin 31.6 pg (27.0-31.2); Mean Platelet Volume 8.2 fl (7.4-10.4); Monocytes # 0.4 K/mm3 (0.1-1.0); Monocytes % 7.8 % (1.7-9.3); Neutrophils # 4.4 K/mm3 (1.8-7.8); Neutrophils % 81.6 % (37.0-80.0); Platelet Count 321 K/mm3 (142-424); Red Blood Count 3.32 M/mm3 (4.60-6.20); Red Cell Distribution Width 14.5 % (11.5-17.5); White Blood Count 5.3 K/mm3 (4.8-10.8)
[2024-08-05 06:24] LABS: Magnesium 1.7 mg/dl (1.6-2.3)
[2024-08-05 06:27] VITALS: PULSE 88; PULSE 91; O2SAT 96
[2024-08-05] MEDS: IPRATROPIUM/ALBUTEROL 3 ML NEB IH ×2 (06:27→11:20)
[2024-08-05] MEDS: BUDESONIDE 0.5MG/2ML NEB 0.5 MG IH (06:27)
[2024-08-05] MEDS: FLUTICASONE/UMECLIDIN/VILANTER 100/62.5/25MCG INHALER 1 PUFF IH (06:27)
[2024-08-05 06:34] LABS: Alanine Aminotransferase 18 U/L (12-78); Albumin Level 3.4 g/dl (3.5-5.0); Albumin/Globulin Ratio 1.5 (1.1-1.8); Alkaline Phosphatase 75 U/L (38-126); Anion Gap 5.9 mEq/L (5-15); Aspartate Amino Transferase 23 U/L (17-59); Bilirubin,Total 0.3 mg/dl (0.2-1.3); Blood Urea Nitrogen 17 mg/dl (9-20); Calcium 5.6 mg/dl (8.4-10.2); Carbon Dioxide 35 mmol/L (22.0-30.0); Chloride 100 mmol/L (98-107); Creatinine Clearance Estimated 56 mL/min (50-200); Estimated Glomerular Filt Rate 134 ml/min (>60); GFR (African American) 163 ML/MIN (>60); Globulin 2.3 g/dL (1.3-3.2); Glucose 149 mg/dl (74-100); Potassium 3.9 mmoL/L (3.5-5.1); Sodium 137 mmol/L (136-145); Total Protein,Serum 5.7 g/dl (6.3-8.2)
--- NOTE | 2024-08-05 07:20 | EXP.DC.SUM ---
General Admission date:: 08/03/24 Discharge date: 08/05/24 HPI HPI HPI: Patient who is a daily smoker with past medical history of metastatic lung cancer, COPD on 3 L home oxygen, hyperlipidemia, hypertension. Patient recently cared for for COPD exacerbation 07/30 to 08/02. Patient patient presents to hospital with with complaining of persistent shortness of breath, increased work of breathing, and anxiety. Patient states that his breathing issues returned shortly after hospital disposition. Reports chills but denies fevers. States he usually uses 3 L oxygen at home, but increased oxygen administration over past 24 hours without relief of breathing difficulties. Denies any known sick contacts or recent travel. Aware that he was diagnosed with rhinovirus during recent hospitalization. Patient given multiple DuoNeb treatments in emergency room, with breathing failing to improve. Hospital Course Hospital Course Hospital Course: 69-year-old male with history of lung cancer, severe COPD, presents with worsening shortness of breath over the past week. Was discharged 48 hours ago with rhino/enterovirus but doing better and on baseline oxygen. Became more anxious at home. Developed worsening shortness of breath. Re-presented to the ER, necessitating observation at this time. Patient currently on 3 L oxygen. Will continue IV steroids and de-escalate antibiotics. Pulmonology was consulted. Given patient's improvement to 2 L oxygen, viral etiology of his infection, stable discharge home to complete therapy. Problems addressed as follows: Acute on chronic hypoxic respiratory failure with hypercapnia due to COPD exacerbation -Re-presented to the hospital with worsening shortness of breath after recent discharge. Previous workup showed rhino enterovirus last visit. Has shown improvement with aggressive pulmonary toilet and nebulizers. Continue DuoNebs every 4 hours with Pulmicort twice daily during admission. Started on IV steroids with methylprednisolone. Plan to wean to prednisone to complete 10-day taper. Will complete 3 more days of doxycycline for 5-day course. Resume Trelegy. Labs stable on day of discharge. Close follow-up with pulmonology in the coming week. Tobacco use disorder: Counseled on need to stop smoking. Patient interested in smoking cessation. Initiate nicotine 14 mg patch daily. 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 Protein supplementation with meals Total time spent on discharge 32 minutes in counseling, documentation, chart review, and direct care with patient. Exam Data for Last 24 hours Vital signs and Labs for Last 24 Hours: Temp Pulse Resp BP Pulse Ox O2 Del Method O2 Flow Rate 97.7 F 91 H 20 155/75 H 96 Nasal Cannula 2 08/05/24 04:00 08/05/24 06:27 08/05/24 04:00 08/05/24 04:00 08/05/24 06:27 08/05/24 06:32 08/05/24 06:32 FiO2 40 08/04/24 05:01 Laboratory Results - last 24 hr 08/04/24 16:11: Sodium 135 L, Potassium 4.0, Chloride 96 L, Carbon Dioxide 35 H, Anion Gap 8.0, BUN 16 D, Creatinine 0.70, Estimated Creat Clear 65, Estimated GFR 112, Est GFR ( Amer) 136, Glucose 177 H D, Calcium 6.1 L, Magnesium 1.8 D, Total Bilirubin 0.4, AST 35, ALT 29, Alkaline Phosphatase 74, Total Protein 7.1, Albumin 4.3, Globulin 2.8, Albumin/Globulin Ratio 1.5 08/05/24 05:53: WBC 5.3, RBC 3.32 L, Hgb 10.5 L, Hct 32.9 L, MCV 99.0 H, MCH 31.6 H, MCHC 31.9, RDW 14.5, Plt Count 321, MPV 8.2, Neut % (Auto) 81.6 H, Lymph % (Auto) 10.5, [place] % (Auto) 7.8, Eos % (Auto) 0.1, Baso % (Auto) 0.0 L, Neut # (Auto) 4.4, Lymph # (Auto) 0.6 L, [place] # (Auto) 0.4, Eos # (Auto) 0.0, Baso # (Auto) 0.0, Sodium 137, Potassium 3.9, Chloride 100, Carbon Dioxide 35 H, Anion Gap 5.9, BUN 17, Creatinine 0.60 L, Estimated Creat Clear 56, Estimated GFR 134, Est GFR ( Amer) 163, Glucose 149 H, Calcium 5.6 L, Magnesium 1.7, Total Bilirubin 0.3, AST 23 D, ALT 18 D, Alkaline Phosphatase 75, Total Protein 5.7 L, Albumin 3.4 L D, Globulin 2.3, Albumin/Globulin Ratio 1.5 I & O for Last 24 hours: Intake & Output 08/02/24 08/03/24 08/04/24 08/05/24 23:59 23:59 23:59 23:59 Intake Total 1154 / 1404 250 / 250 Output Total 1150 / 1150 0 / 0 Balance 4 / 254 250 / 250 Weight 64.3 kg 64 kg 55.701 kg Microbiology Reports for the Last 24 Hours: Microbiology 08/04/24 05:27 Blood Blood Culture - Preliminary NO GROWTH AFTER 24 HOURS 08/04/24 05:27 Blood Blood Culture - Preliminary NO GROWTH AFTER 24 HOURS Constitutional Constitutional: no acute distress, cachectic, chronically ill appearing and cooperative *Routine HEENT Exam Head: Present normocephalic Eye: Present EOMI and PERRL ENT: Present mucous membranes moist *Routine Neck Exam Neck: Present supple; Absent lymphadenopathy *Routine Respiratory Exam Respiratory: Present prolonged expiratory phase, wheezes and diminished air movement; Absent rhonchi or crackles *Routine Cardiovascular Exam Cardiovascular: Present RRR *Routine Abdominal Exam Abdominal: Present soft and normoactive bowel sounds; Absent tenderness *Routine Rectal Exam Patient deferred: visual exam *Routine Exam Patient deferred: penile exam *Routine Extremities Exam Extremities: Absent cyanosis, clubbing or edema *Routine Skin Exam Skin: Present warm; Absent rash *Routine Neurological Exam Neurological: Present alert, oriented X3 and moving all extremities; Absent altered mental status Results Data Completed and Pending Labs on day of discharge: Labs from last 24 hours 08/05/24 08/04/24 05:53 16:11 WBC 5.3 RBC 3.32 L Hgb 10.5 L Hct 32.9 L MCV 99.0 H MCH 31.6 H MCHC 31.9 RDW 14.5 Plt Count 321 MPV 8.2 Neut % (Auto) 81.6 H Lymph % (Auto) 10.5 [place] % (Auto) 7.8 Eos % (Auto) 0.1 Baso % (Auto) 0.0 L Neut # (Auto) 4.4 Lymph # (Auto) 0.6 L [place] # (Auto) 0.4 Eos # (Auto) 0.0 Baso # (Auto) 0.0 Sodium 137 135 L Potassium 3.9 4.0 Chloride 100 96 L Carbon Dioxide 35 H 35 H Anion Gap 5.9 8.0 BUN 17 16 D Creatinine 0.60 L 0.70 Estimated Creat Clear 56 65 Estimated GFR 134 112 Est GFR ( Amer) 163 136 Glucose 149 H 177 H D Calcium 5.6 L 6.1 L Magnesium 1.7 1.8 D Total Bilirubin 0.3 0.4 AST 23 D 35 ALT 18 D 29 Alkaline Phosphatase 75 74 Total Protein 5.7 L 7.1 Albumin 3.4 L D 4.3 Globulin 2.3 2.8 Albumin/Globulin Ratio 1.5 1.5 Preliminary micro results at discharge 08/04/24 05:27 Blood Culture - Preliminary Blood NO GROWTH AFTER 24 HOURS 08/04/24 05:27 Blood Culture - Preliminary Blood NO GROWTH AFTER 24 HOURS DS: Diagnosis Discharge Diagnosis (1) Acute on chronic hypoxic respiratory failure: Status: Acute Code(s): J96.21 - Acute and chronic respiratory failure with hypoxia (2) Enteroviral infection: Status: Acute Code(s): B34.1 - Enterovirus infection, unspecified (3) Acute exacerbation of chronic obstructive pulmonary disease: Status: Acute Code(s): J44.1 - Chronic obstructive pulmonary disease with (acute) exacerbation (4) Acute and chronic respiratory failure with hypercapnia: Status: Acute Code(s): J96.22 - Acute and chronic respiratory failure with hypercapnia (5) Tobacco abuse disorder: Status: Chronic Code(s): Z72.0 - Tobacco use (6) Small cell lung cancer: Status: Chronic Code(s): C34.90 - Malignant neoplasm of unspecified part of unspecified bronchus or lung (7) Smoking greater than 30 pack years: Status: Chronic Code(s): F17.210 - Nicotine dependence, cigarettes, uncomplicated (8) Chronic hypoxemic respiratory failure: Status: Chronic Code(s): J96.11 - Chronic respiratory failure with hypoxia (9) Cachexia: Status: Acute Code(s): R64 - Cachexia Meds Home Medications and Allergies Home Medications ?Medication ?Instructions ?Recorded ?Confirmed ?Type trazodone 150 mg tablet 150 mg PO HS 07/03/22 08/04/24 History fluticasone fur. 100 mcg-umeclid 1 inh inhalation DAILY Copd 01/05/23 08/04/24 History 62.5 mcg-vilant 25 mcg inhalat.powder (Trelegy Ellipta) aspirin 325 mg tablet 325 mg PO DAILY 05/11/23 08/04/24 History propranolol 10 mg tablet 10 mg PO BID 12/16/23 08/04/24 History albuterol sulfate 90 mcg/actuation 2 puff inhalation QIDP PRN 06/11/24 08/04/24 History aerosol inhaler Shortness Of Breath Or Wheezing ipratropium 0.5 mg-albuterol 3 mg 3 ml inhalation QIDP PRN Shortness 06/12/24 08/04/24 Rx (2.5 mg base)/3 mL nebulization Of Breath Or Wheezing 30 days #180 soln mL azelastine 137 mcg (0.1 %) nasal 2 spray intranasal BID 07/31/24 08/04/24 History spray doxycycline hyclate 100 mg capsule 100 mg PO BID 3 days #6 caps 08/05/24 Rx ergocalciferol (vitamin D2) 1,250 50,000 unit PO WEEKLY 30 days #4 08/05/24 Rx mcg (50,000 unit) capsule caps nicotine 14 mg/24 hr daily 1 patch transdermal DAILY 28 days 08/05/24 Rx transdermal patch #28 ea prednisone 20 mg tablet See Rx Instructions .Route 08/05/24 Rx .COMPLEX 10 days #15 tabs New Prescriptions to Start Prescriptions: doxycycline hyclate Nicolas Tomas ergocalciferol (vitamin D2) Nicolas Tomas nicotine Nicolas Tomas prednisone Nicolas Tomas Allergies Allergy/AdvReac Type Severity Reaction Status Date / Time silver Allergy Severe Rash Verified 05/25/24 09:23 [From Tegaderm AG Mesh] Penicillins [PENICILLINS] Allergy Mild Verified 05/25/24 09:23 amitriptyline AdvReac Intermediate gi upset Verified 05/25/24 09:23 adhesive AdvReac Verified 05/25/24 09:23 hydrocodone AdvReac Verified 05/25/24 09:23 Discharge Plan Disposition Patient Disposition: Home, Self-Care Condition: Fair Discharge Order Discharge Orders: Discharge Order (Routine); Ordered 08/05/24 Ordered By: Nicolas Tomas Follow up Plan Follow up with: Napoleon Webber MD [Physician] - 08/23/24 1:00 pm Main Carrington MD [Primary Care Provider] - 08/08/24 2:15 pm Prescriptions/Medication Reconciliation: New ergocalciferol (vitamin D2) 1,250 mcg (50,000 unit) Capsule 50,000 unit PO WEEKLY 30 Days Qty: 4 2RF nicotine 14 mg/24 hr patch 24 hour 1 patch transdermal DAILY 28 Days Qty: 28 2RF doxycycline hyclate 100 mg capsule 100 mg PO BID 3 Days Qty: 6 0RF Continued propranolol 10 mg tablet 10 mg PO BID Patient Comments: TAKE 1 TABLET BY MOUTH TWICE DAILY trazodone 150 mg tablet 150 mg PO HS Trelegy Ellipta 100-62.5-25 mcg blister with device 1 inh inhalation DAILY aspirin 325 mg Tablet 325 mg PO DAILY albuterol sulfate 90 mcg/actuation HFA aerosol inhaler 2 puff INHALATION QIDP PRN (Reason: Shortness Of Breath Or Wheezing) Patient Comments: INHALE 2 PUFFS FOUR TIMES A DAY NEEDED FOR SHORTNESS OF BREATH OR WHEEZING ipratropium-albuterol 0.5 mg-3 mg(2.5 mg base)/3 mL solution for nebulization 3 ml INHALATION QIDP PRN (Reason: Shortness Of Breath Or Wheezing) 30 Days Qty: 180 0RF azelastine 137 mcg (0.1 %) spray,non-aerosol 2 spray intranasal BID Patient Comments: USE 2 SPRAYS IN EACH NOSTRIL TWICE DAILY Changed prednisone 20 mg Tablet See Rx Instructions .ROUTE .COMPLEX 10 Days Qty: 15 0RF Rx Instructions: 40 mg daily for 5 days followed by 20 mg daily for 5 days. Discontinued cefdinir 300 mg Capsule 300 mg PO BID 5 Days Qty: 9 0RF Problem Reconciliation Problems Reviewed?: Yes Patient Discharge Instructions ACTIVITY: Continue current activity DIET: continue same diet Patient Instructions: DI for Chronic Obstructive Pulmonary Disease Print Language: Vietnamese Providers Primary Care Provider: Main Carrington Admit Provider: Nicolas Tomas Attending Provider: Nicolas Tomas
[2024-08-05 08:00] VITALS: BP 121/78; PULSE 90; RESP 18; TEMP 36.6; O2SAT 98
[2024-08-05] MEDS: MAGNESIUM SULFATE IN WATER 2 GM/50 ML PIGGYBACK IV (08:10)
[2024-08-05] MEDS: ENOXAPARIN 40MG/0.4ML SYRINGE 40 MG SQ (08:11)
[2024-08-05] MEDS: ERGOCALCIFEROL 50,000 UNITS (1.25MG) CAPSULE 50000 UNIT PO (08:11)
[2024-08-05] MEDS: ASPIRIN 325MG TABLET 325 MG PO (08:12)
[2024-08-05] MEDS: PROPRANOLOL 20MG TAB 10 MG PO (08:13)
[2024-08-05] MEDS: CALCIUM GLUC IN NACL, ISO-OSM 2 GM/100 ML BAG IV (09:36)
--- NOTE | 2024-08-05 09:42 | EXP.PULM.CON ---
History of Present Illness History of present illness: Mr. Simmons is a 69-year-old male greater than [id number] smoking history recurrent small cell lung cancer, COPD chronic hypoxic respiratory failure on 3 L home nasal cannula oxygen supplementation and triple inhaler therapy recently discharged from the hospital after being treated for COPD exacerbation and community-acquired pneumonia with nebulization therapy started on azithromycin for which she was also tested positive for enterorhinovirus presented to the hospital again with worsening/not improving respiratory distress and was admitted for further evaluation and management. [facility] Disclaimer: The information contained in this section may have been updated after the patient was seen, as this information can be updated by other users. Medical History Bilateral impacted cerumen Tinnitus Hearing loss Lung nodule Hilar lymphadenopathy Pneumonia Sleep apnea Emphysema/COPD Chronic cough Bronchitis Allergies History of anemia Lung collapse Nodule of right lung Tobacco abuse disorder Tobacco abuse counseling Small cell lung cancer Smoking greater than 30 pack years Chronic hypoxemic respiratory failure COPD (chronic obstructive pulmonary disease) Dyspnea on exertion On home O2 Sinus problem History of chemotherapy History of radiation therapy Personal history of arthritis History of lung disease Hyperlipemia Cancer Asthma Essential hypertension COPD exacerbation Surgical History History of insertion of tunneled central venous catheter (CVC) with port History of colonoscopy Hx of cardiac catheterization Normal coronary arteries History of sinus surgery Family History Other Cancer Diabetes Social History (Updated 08/04/24 @ 01:04 by Sandra Cummings RN) Smoking Status: Current every day smoker tobacco type: cigarettes packs per day: 1 years smoked: 50 alcohol intake: former substance use type: denies use current occupational status: retired and disabled Travel in the last 8 weeks: None household members: spouse housing: house caffeine: Yes Review of Systems Constitutional Constitutional: Denies anorexia, Denies body ache(s) and Reports fatigue Eyes Eyes: Denies eye discharge, Denies dry eyes, Denies irritation and Denies itchy eyes ENT Ears, Nose, Mouth, and Throat: Denies epistaxis, Denies facial pain, Denies lip swelling and Denies throat swelling *Cardiovascular Cardiovascular: Reports dyspnea, Reports dyspnea on exertion and Reports orthopnea *Respiratory Respiratory: Denies change in phlegm color, Reports chest congestion, Reports cough, Reports dyspnea, Reports dyspnea on exertion, Denies excessive phlegm production and Reports wheezing *Gastrointestinal Gastrointestinal: Denies abdominal pain, Denies belching and Denies cramping *Musculoskeletal Musculoskeletal: Reports back pain, Reports myalgias and Reports other (No small joint swelling or Pain) Psychiatric Psychiatric: Denies homicidal ideation and Denies suicidal ideation Endocrine Endocrine: Reports fatigue and Denies heat intolerance Hematologic/Lymphatic Hematologic/Lymphatic: Denies easy bleeding and Denies lymphadenopathy Allergic/Immunologic Allergic/Immunologic: Denies itchy eyes, Denies lip swelling, Denies throat swelling and Reports wheezing Pulmonology Exam Inpatient Vital signs and Labs for Last 24 Hours: Temp Pulse Resp BP Pulse Ox O2 Del Method O2 Flow Rate 98 F 90 18 121/78 98 Nasal Cannula 2 08/05/24 08:00 08/05/24 08:00 08/05/24 08:00 08/05/24 08:00 08/05/24 08:00 08/05/24 08:00 08/05/24 08:00 FiO2 40 08/04/24 05:01 Laboratory Results - last 24 hr 08/04/24 16:11: Sodium 135 L, Potassium 4.0, Chloride 96 L, Carbon Dioxide 35 H, Anion Gap 8.0, BUN 16 D, Creatinine 0.70, Estimated Creat Clear 65, Estimated GFR 112, Est GFR ( Amer) 136, Glucose 177 H D, Calcium 6.1 L, Magnesium 1.8 D, Total Bilirubin 0.4, AST 35, ALT 29, Alkaline Phosphatase 74, Total Protein 7.1, Albumin 4.3, Globulin 2.8, Albumin/Globulin Ratio 1.5 08/05/24 05:53: WBC 5.3, RBC 3.32 L, Hgb 10.5 L, Hct 32.9 L, MCV 99.0 H, MCH 31.6 H, MCHC 31.9, RDW 14.5, Plt Count 321, MPV 8.2, Neut % (Auto) 81.6 H, Lymph % (Auto) 10.5, [place] % (Auto) 7.8, Eos % (Auto) 0.1, Baso % (Auto) 0.0 L, Neut # (Auto) 4.4, Lymph # (Auto) 0.6 L, [place] # (Auto) 0.4, Eos # (Auto) 0.0, Baso # (Auto) 0.0, Sodium 137, Potassium 3.9, Chloride 100, Carbon Dioxide 35 H, Anion Gap 5.9, BUN 17, Creatinine 0.60 L, Estimated Creat Clear 56, Estimated GFR 134, Est GFR ( Amer) 163, Glucose 149 H, Calcium 5.6 L, Magnesium 1.7, Total Bilirubin 0.3, AST 23 D, ALT 18 D, Alkaline Phosphatase 75, Total Protein 5.7 L, Albumin 3.4 L D, Globulin 2.3, Albumin/Globulin Ratio 1.5 I & O for Labs for Last 24 Hours: Intake & Output 08/02/24 08/03/24 08/04/24 08/05/24 23:59 23:59 23:59 23:59 Intake Total 1154 / 1404 450 / 450 Output Total 1150 / 1150 0 / 0 Balance 4 / 254 450 / 450 Weight 141 lb 12.116 oz 141 lb 1.533 oz 122 lb 12.8 oz Microbiology Reports for the Last 24 Hours: Microbiology 08/04/24 05:27 Blood Blood Culture - Preliminary NO GROWTH AFTER 24 HOURS 08/04/24 05:27 Blood Blood Culture - Preliminary NO GROWTH AFTER 24 HOURS Constitutional: Present moderate distress Head: Present normocephalic and atraumatic ENT: Present normal exam, normal oropharynx and mucous membranes moist Neck: Present normal inspection and full ROM Respiratory: Present prolonged expiratory phase, respiratory distress, rhonchi, wheezes and diminished air movement; Absent able to speak in complete sentences Cardiac: Present S1/S2, Tachycardia and radial pulses present GI: Present soft and distention; Absent tenderness or guarding Skin: Present intact; Absent cyanosis or jaundice Neuro: Present alert, awake and oriented x 3 Extremities: Present normal inspection; Absent clubbing or cyanosis Psychiatric: Present normal affect and cooperative Meds Home Medications and Allergies Home Medications ?Medication ?Instructions ?Recorded ?Confirmed ?Type trazodone 150 mg tablet 150 mg PO HS 07/03/22 08/04/24 History fluticasone fur. 100 mcg-umeclid 1 inh inhalation DAILY Copd 01/05/23 08/04/24 History 62.5 mcg-vilant 25 mcg inhalat.powder (Trelegy Ellipta) aspirin 325 mg tablet 325 mg PO DAILY 05/11/23 08/04/24 History propranolol 10 mg tablet 10 mg PO BID 12/16/23 08/04/24 History albuterol sulfate 90 mcg/actuation 2 puff inhalation QIDP PRN 06/11/24 08/04/24 History aerosol inhaler Shortness Of Breath Or Wheezing ipratropium 0.5 mg-albuterol 3 mg 3 ml inhalation QIDP PRN Shortness 06/12/24 08/04/24 Rx (2.5 mg base)/3 mL nebulization Of Breath Or Wheezing 30 days #180 soln mL azelastine 137 mcg (0.1 %) nasal 2 spray intranasal BID 07/31/24 08/04/24 History spray doxycycline hyclate 100 mg capsule 100 mg PO BID 3 days #6 caps 08/05/24 Rx ergocalciferol (vitamin D2) 1,250 50,000 unit PO WEEKLY 30 days #4 08/05/24 Rx mcg (50,000 unit) capsule caps nicotine 14 mg/24 hr daily 1 patch transdermal DAILY 28 days 08/05/24 Rx transdermal patch #28 ea prednisone 20 mg tablet See Rx Instructions .Route 08/05/24 Rx .COMPLEX 10 days #15 tabs New Prescriptions to Start Prescriptions: doxycycline hyclate Nicolas Tomas ergocalciferol (vitamin D2) Nicolas Tomas nicotine Nicolas Tomas prednisone Nicolas Tomas Allergies Allergy/AdvReac Type Severity Reaction Status Date / Time silver Allergy Severe Rash Verified 05/25/24 09:23 [From Tegaderm AG Mesh] Penicillins [PENICILLINS] Allergy Mild Verified 05/25/24 09:23 amitriptyline AdvReac Intermediate gi upset Verified 05/25/24 09:23 adhesive AdvReac Verified 05/25/24 09:23 hydrocodone AdvReac Verified 05/25/24 09:23 Results Laboratory Findings 08/05/24 05:53 08/05/24 05:53 Abnormal lab findings: Abnormal Labs 08/03/24 08/03/24 08/03/24 21:25 21:27 21:35 RBC 3.70 L Hgb 11.5 L Hct 36.4 L MCV 98.5 H MCH MCHC 31.6 L Neut % (Auto) Lymph % (Auto) Baso % (Auto) Lymph # (Auto) Neutrophils % (Manual) Lymphocytes % (Manual) VBG pCO2 58.5 H VBG pO2 58.6 H VBG HCO3 32.9 H VBG Total CO2 34.7 H VBG O2 Saturation 88.9 H VBG Base Excess 7.6 H Sodium Chloride 96 L Carbon Dioxide 39 H Creatinine 0.60 L Glucose 119 H Calcium 6.0 L Magnesium C-Reactive Protein 5.1 H NT-Pro-B Natriuret Pep 205 H Total Protein Albumin 08/04/24 08/04/24 08/05/24 05:27 16:11 05:53 RBC 3.59 L 3.32 L Hgb 11.2 L 10.5 L Hct 35.8 L 32.9 L MCV 99.8 H 99.0 H MCH 31.3 H 31.6 H MCHC 31.3 L Neut % (Auto) 91.3 H 81.6 H Lymph % (Auto) 5.9 L Baso % (Auto) 0.0 L Lymph # (Auto) 0.4 L 0.6 L Neutrophils % (Manual) 94 H Lymphocytes % (Manual) 6 L VBG pCO2 VBG pO2 VBG HCO3 VBG Total CO2 VBG O2 Saturation VBG Base Excess Sodium 135 L Chloride 95 L 96 L Carbon Dioxide 37 H 35 H 35 H Creatinine 0.60 L 0.60 L Glucose 134 H 177 H D 149 H Calcium 5.8 L 6.1 L 5.6 L Magnesium 1.4 L D C-Reactive Protein NT-Pro-B Natriuret Pep Total Protein 5.7 L Albumin 3.4 L D Assessment and Plan *Assessment and plan (1) Viral respiratory infection: Status: Acute Category: Medical Code(s): J98.8 - Other specified respiratory disorders; B97.89 - Other viral agents as the cause of diseases classified elsewhere (2) Acute exacerbation of chronic obstructive pulmonary disease: Status: Acute Category: Medical Code(s): J44.1 - Chronic obstructive pulmonary disease with (acute) exacerbation Plan Mr. Simmons is a 69-year-old male greater than [id number] smoking history recurrent small cell lung cancer, COPD chronic hypoxic respiratory failure on 3 L home nasal cannula oxygen supplementation and triple inhaler therapy recently discharged from the hospital after being treated for COPD exacerbation and community-acquired pneumonia with nebulization therapy started on azithromycin for which she was also tested positive for enterorhinovirus presented to the hospital again with worsening/not improving respiratory distress and was admitted for further evaluation and management. Afebrile. Hemodynamically stable. No evidence of leukocytosis. Blood gas on this admission continue to show chronic hypercarbic respiratory failure with pH of 7.37 and pCO2 58.5. CTA upon this admission no dense consolidative airspace changes. No groundglass opacities noted. No other pulmonary parenchymal abnormalities noted. Right suprahilar [place] fibrotic changes noted. No evidence of pulmonary embolism. Patient on this admission was being managed for COPD exacerbation with nebulization therapy, steroids along with doxycycline. On examination patient in moderate respiratory distress but admits improving respiratory symptoms. Continued to have wheezing. Stable home oxygen requirements. Plan: Continue DuoNebs and budesonide nebulization scheduled. Can be discharged home inhaler therapy along with DuoNebs Q ID as needed Continue doxycycline to complete total of 3-day course Continue prednisone 40 mg for 5 days followed by 20 mg for 5 days. Follow in the pulmonary clinic as previously scheduled # Thank you for involving pulmonary in this patient care. Will continue to follow.
[2024-08-05 11:21] VITALS: PULSE 88; PULSE 89
[2024-08-05 12:00] VITALS: BP 133/69; PULSE 90; RESP 17; TEMP 36.7; O2SAT 97
[2024-08-05 16:54] LABS: MRSA DNA PCR Negative (Negative)
--- NOTE | 2024-08-08 14:39 | CARE MANAGER ---
Patient states he is doing better. He is currently in Dr. Carrington's office waiting for appointment. He denies questions or concerns. RAISA Underwood
== END 2024-08-05 14:17 | disposition home or self-care (01) | DRG 189 ==
LOC: ER 22:05 → 2ND 08-04 06:14
PROVIDERS: Internal Medicine; Physician Assistant; Admitting Provider Internal Medicine Adolescent Medicine; Emergency Provider Emergency Medicine; PCP Internal Medicine Adolescent Medicine; Visit Provider Internal Medicine Adolescent Medicine
DX: J96.21 Acute and chronic respiratory failure with hypoxia (principal); J44.1 Chronic obstructive pulmonary disease with (acute) exacerbation; C34.90 Malignant neoplasm of unspecified part of unspecified bronchus or lung; R64 Cachexia; J96.22 Acute and chronic respiratory failure with hypercapnia; F17.200 Nicotine dependence, unspecified, uncomplicated; B34.1 Enterovirus infection, unspecified; F17.210 Nicotine dependence, cigarettes, uncomplicated; Z71.6 Tobacco abuse counseling
CPT/HCPCS: 36415; 71045; 71275; 80048; 80053; 82803; 83735; 83880; 84145; 85007; 85025; 85027; 86140; 87040; 87641; 93005; 94640; 94660; 94761; 99285; J0692; J1642; J1650; J2919; J3370; J3475; J7613; J7620; Q9967

== ENCOUNTER 2024-08-22 08:17 | Outpatient (CLI) | payer MEDICARE, SELFPAY ==
--- NOTE | 2024-08-22 08:21 | CT_ITS ---
FINAL REPORT TECHNIQUE: Routine axial images were obtained from the lung apices to below the diaphragm following IV contrast administration. Individualized dose reduction techniques using automated exposure control or adjustment of the mA and/or kV according to the patient size were employed. CLINICAL HISTORY: LUNG CANCER COMPARISON: 08/04/2024 FINDINGS: There is a right upper chest wall port with the tip in the SVC. There is mild stranding in the right perihilar region. Scarring is seen in the right upper lobe. Moderate changes of centrilobular emphysema are present. Otherwise, the lungs are clear.. No pleural or pericardial effusion is seen. No adenopathy or mass lesion is present. Osseous structures are unremarkable. IMPRESSION: Localized scarring in the posterior left upper lobe, stable from prior exam. No new mass or nodule. Reviewed, Interpreted and Dictated by Kar Bowden MD Transcribed by Belen Lu Authenticated and [facility]
--- NOTE | 2024-08-22 08:21 | CT_ITS ---
FINAL REPORT TECHNIQUE: After the administration of oral and intravenous contrast, axial images were obtained through the abdomen and pelvis by computed tomography. The study was performed with techniques to keep radiation dose as low as reasonably achievable, (ALARA). Individual dose reduction techniques using automated exposure control or adjustment of mA and/or kV according to the patient's size were employed. CLINICAL HISTORY: LUNG CANCER F/U COMPARISON: 05/20/2024 FINDINGS: Abdomen: The lung bases are clear. The liver parenchyma is homogeneous. The gallbladder is present. There are low-attenuation structures in the posterior right hepatic lobe and in the right kidney consistent with cysts. Otherwise, the spleen, pancreas, adrenals and kidneys appear unremarkable. The aorta is normal in caliber. There is no free fluid or adenopathy. Dense vascular calcification is seen of the abdominal aorta and iliac vessels. Pelvis: The appendix is normal. The urinary bladder is incompletely distended. There is no free fluid or adenopathy. Osseous structures are unremarkable. IMPRESSION: No acute intra-abdominal process. Reviewed, Interpreted and Dictated by Kar Bowden MD Transcribed by Belen Lu Authenticated and [facility]
[2024-08-22] MEDS: SODIUM CHLORIDE 0.9% 10ML FLUSH SYRINGE 10 ML IV (08:44)
[2024-08-22] MEDS: SODIUM CHLORIDE 0.9% 10ML SYR (RAD ONLY) 10 ML IV (08:45)
[2024-08-22] MEDS: BARIUM SULFATE(READI-CAT2);450ML BOTTLE 450 ML PO (08:46)
[2024-08-22] MEDS: IOPAMIDOL-370 (76%);100ML BOTTLE 75 ML IV (08:46)
== END 2024-08-22 08:49 | disposition home or self-care (01) ==
PROVIDERS: PCP Internal Medicine Adolescent Medicine; Visit Provider Internal Medicine Medical Oncology
DX: C34.31 Malignant neoplasm of lower lobe, right bronchus or lung (principal)
CPT/HCPCS: 71260; 74177; J1642; Q9967

== ENCOUNTER 2024-08-25 09:48 | Outpatient (CLI) | payer MEDICARE, SELFPAY ==
[2024-08-25 09:54] VITALS: BMI 17.2
[2024-08-25] MEDS: SODIUM CHLORIDE 0.9% 10ML FLUSH SYRINGE 10 ML IV (10:01)
[2024-08-25 10:14] LABS: Basophils % 0.2 % (0.1-2.0); Eosinophils % 0.2 % (0.1-12.0); Hematocrit 33.6 % (42.0-52.0); Hemoglobin 11.2 g/dL (14.1-18.0); Lymphocytes # 0.8 K/mm3 (0.7-4.5); Lymphocytes % 9.3 % (10-50); Mean Corpuscular HGB Conc 33.5 g/dL (31.8-35.4); Mean Corpuscular Hemoglobin 31.3 pg (27.0-31.2); Mean Corpuscular Volume 93.4 fl (80-94); Mean Platelet Volume 7.5 fl (7.4-10.4); Monocytes # 0.3 K/mm3 (0.1-1.0); Monocytes % 3.9 % (1.7-9.3); Neutrophils # 7.4 K/mm3 (1.8-7.8); Neutrophils % 86.4 % (37.0-80.0); Platelet Count 296 K/mm3 (142-424); Red Cell Distribution Width 13.9 % (11.5-17.5); White Blood Count 8.5 K/mm3 (4.8-10.8)
[2024-08-25 10:16] LABS: MANUAL DIFFERENTIAL MANUAL DIFFERENTIAL (MANUAL DIFF)
[2024-08-25 10:26] LABS: Albumin Level 4.4 g/dl (3.5-5.0); Chloride 93 mmol/L (98-107); Sodium 136 mmol/L (136-145)
[2024-08-25 10:28] LABS: Blood Urea Nitrogen 8 mg/dl (9-20); Creatinine Clearance Estimated 55 mL/min (50-200); Estimated Glomerular Filt Rate 134 ml/min (>60); GFR (African American) 163 ML/MIN (>60)
[2024-08-25 10:29] LABS: Alanine Aminotransferase 31 U/L (12-78); Albumin/Globulin Ratio 1.4 (1.1-1.8); Alkaline Phosphatase 75 U/L (38-126); Aspartate Amino Transferase 33 U/L (17-59); Bilirubin,Total 0.4 mg/dl (0.2-1.3); Calcium 5.6 mg/dl (8.4-10.2); Carbon Dioxide 35 mmol/L (22.0-30.0); Globulin 3.1 g/dL (1.3-3.2); Glucose 169 mg/dl (74-100); Total Protein,Serum 7.5 g/dl (6.3-8.2)
[2024-08-25 10:59] LABS: Lymphocytes % 9 % (10-50); Monocytes % 2 % (2-9); Neutrophils % 89 % (42-76); Platelet Estimate Normal; RBC Morphology Normal; Total Cells Counted 100
== END 2024-08-25 10:05 | disposition home or self-care (01) ==
LOC: INF 09:49
PROVIDERS: PCP Internal Medicine Adolescent Medicine; Visit Provider Internal Medicine Medical Oncology
DX: C80.1 Malignant (primary) neoplasm, unspecified (principal)
CPT/HCPCS: 36591; 80053; 85007; 85025; 85027; J1642

== ENCOUNTER 2024-09-14 12:06 | Emergency (ER) | payer MEDICARE, SELFPAY ==
[2024-09-14] VITALS (8 sets, daily range): BP systolic 142–167; BP diastolic 90–102; PULSE 73–90; RESP 20–26; TEMP 36.6–36.8; O2SAT 95–100; BMI 17.9
--- NOTE | 2024-09-14 12:27 | XR_ITS ---
PROCEDURE INFORMATION: Exam: XR Chest Exam date and time: 09/14/2024 12:32 PM Age: 69 years old Clinical indication: Cough and shortness of breath; Additional info: Cough, SOA TECHNIQUE: Imaging protocol: Radiologic exam of the chest. Views: 1 view. COMPARISON: CT CHEST W CON 08/22/2024 8:31 AM FINDINGS: Tubes, catheters and devices: Central venous catheter likely an Qqssxs-U-Spys with its tip overlying the superior vena cava. Lungs: Hyperinflation. No focal infiltrates. Pleural spaces: Unremarkable. No pleural effusion. No pneumothorax. Heart/Mediastinum: Unremarkable. No cardiomegaly. Bones/joints: Unremarkable. Other findings: Base granulomata. Stable since the CT scan. IMPRESSION: No acute abnormality.
[2024-09-14 12:38] LABS: VBG Base Excess 3.9 mmol/L (-2.4-2.3); VBG HCO3 30.1 mmol/L (23-30); VBG PCO2 60.1 mmol/L (35-51); VBG PH 7.32 mmol/L (7.31-7.41); VBG PO2 65.7 mmol/L (28-40); VBG Total CO2 31.9 mmol/L (23-27)
[2024-09-14 12:40] LABS: Basophils # 0.1 K/mm3 (0-0.2); Basophils % 0.7 % (0.1-2.0); Eosinophils # 0.2 K/mm3 (0.0-0.4); Eosinophils % 2.9 % (0.1-12.0); Hemoglobin 12.2 g/dL (14.1-18.0); Lymphocytes # 1.2 K/mm3 (0.7-4.5); Lymphocytes % 17.4 % (10-50); Mean Corpuscular HGB Conc 33.9 g/dL (31.8-35.4); Mean Corpuscular Volume 91.7 fl (80-94); Mean Platelet Volume 7.4 fl (7.4-10.4); Monocytes # 0.5 K/mm3 (0.1-1.0); Monocytes % 7.2 % (1.7-9.3); Neutrophils % 71.7 % (37.0-80.0); Platelet Count 301 K/mm3 (142-424); Red Blood Count 3.92 M/mm3 (4.60-6.20); Red Cell Distribution Width 13.9 % (11.5-17.5); White Blood Count 6.9 K/mm3 (4.8-10.8)
[2024-09-14] MEDS: METHYLPREDNISOLONE SOD SUCC 125MG VIAL 125 MG IV (12:41)
[2024-09-14] MEDS: IPRATROPIUM/ALBUTEROL 3 ML NEB 9 ML IH (12:41)
[2024-09-14 12:43] LABS: Albumin Level 4.5 g/dl (3.5-5.0); Chloride 96 mmol/L (98-107); Potassium 4.1 mmoL/L (3.5-5.1); Sodium 139 mmol/L (136-145)
[2024-09-14 12:45] LABS: Blood Urea Nitrogen 10 mg/dl (9-20); Creatinine Clearance Estimated 57 mL/min (50-200); Estimated Glomerular Filt Rate 112 ml/min (>60); GFR (African American) 136 ML/MIN (>60)
[2024-09-14 12:46] LABS: Alanine Aminotransferase 12 U/L (12-78); Albumin/Globulin Ratio 1.3 (1.1-1.8); Alkaline Phosphatase 94 U/L (38-126); Anion Gap 14.1 mEq/L (5-15); Aspartate Amino Transferase 28 U/L (17-59); Bilirubin,Total 0.7 mg/dl (0.2-1.3); Calcium 5.7 mg/dl (8.4-10.2); Carbon Dioxide 33 mmol/L (22.0-30.0); Globulin 3.4 g/dL (1.3-3.2); Glucose 131 mg/dl (74-100); Total Protein,Serum 7.9 g/dl (6.3-8.2)
[2024-09-14 12:48] LABS: Coronavirus 19, PCR Not Detected (NotDetected); Influenza A, PCR Not Detected (NotDetected); Influenza B, PCR Not Detected (NotDetected)
[2024-09-14 12:55] LABS: NT Pro Brain Natriuretic Pep. 468 pg/mL (0-125)
[2024-09-14 12:59] LABS: Troponin I < 0.01 ng/ml (0.00-0.034)
[2024-09-14 13:18] LABS: Lactic Acid 0.7 mmol/L (0.7-2.1)
[2024-09-14] MEDS: CALCIUM GLUC IN NACL, ISO-OSM 2 GM/100 ML BAG IV (13:36)
[2024-09-14] MEDS: levoFLOXacin 750 MG TABLET PO (13:36)
[2024-09-14 13:37] LABS: Magnesium 1.6 mg/dl (1.6-2.3)
--- NOTE | 2024-09-14 14:12 | [facility].EDCP ---
Discharge Plan Disposition Patient Disposition: Home, Self-Care Condition: Fair Prescriptions Prescriptions: New levofloxacin 750 mg tablet 750 mg PO DAILY 7 Days Qty: 7 0RF prednisone 20 mg tablet 40 mg PO DAILY 4 Days Qty: 8 0RF Rx Instructions: You were given your first dose today 09/14/2024, so please start this tomorrow 09/15/2024 No Action trazodone 150 mg tablet 150 mg PO HS propranolol 20 mg tablet 20 mg PO BID nicotine (polacrilex) 4 mg lozenge 4 mg buccal Q6H PRN (Reason: nicotine cravings) Qty: 72 0RF Trelegy Ellipta 100-62.5-25 mcg blister with device 1 inh inhalation DAILY ergocalciferol (vitamin D2) 1,250 mcg (50,000 unit) Capsule 50,000 unit PO WEEKLY 30 Days Qty: 4 2RF nicotine 14 mg/24 hr patch 24 hour 1 patch transdermal DAILY 28 Days Qty: 28 2RF aspirin 325 mg Tablet 325 mg PO DAILY albuterol sulfate 90 mcg/actuation HFA aerosol inhaler 2 puff INHALATION QIDP PRN (Reason: Shortness Of Breath Or Wheezing) Patient Comments: INHALE 2 PUFFS FOUR TIMES A DAY NEEDED FOR SHORTNESS OF BREATH OR WHEEZING ipratropium-albuterol 0.5 mg-3 mg(2.5 mg base)/3 mL solution for nebulization 3 ml INHALATION QIDP PRN (Reason: Shortness Of Breath Or Wheezing) 30 Days Qty: 180 0RF azelastine 137 mcg (0.1 %) spray,non-aerosol 2 spray intranasal BID Patient Comments: USE 2 SPRAYS IN EACH NOSTRIL TWICE DAILY Referrals Follow up/Referrals: Main Carrington MD [Primary Care Provider] - See instructions Activity Restrictions/Add. Instructions Additional Instructions/Restrictions: You were evaluated in the emergency department today. At this time, we recommended admission for your work of breathing as we are concerned that your COPD is flaring up. Given that you want to go home, we provided you with prescriptions for antibiotic and prednisone to treat COPD exacerbation. Please continue doing nebulizers and breathing treatments at home. Follow-up very closely with your primary care provider and lubricating specialist. Return to the emergency department for new or worsening symptoms. Clinical Impressions Clinical Impression: Acute exacerbation of chronic obstructive pulmonary disease, Acute on chronic respiratory failure with hypoxia and hypercapnia, Hypocalcemia Instructions Patient Instructions: DI for Chronic Obstructive Pulmonary Disease Print Language Print Language: Lao Discharge ED Provider: Macy Reyes HPI General Chief Complaint: Shortness of Breath/Dyspnea Stated Complaint: sent from [facility] Time Seen by Provider: 09/14/24 12:27 Mode of Arrival: Wheelchair Source of Information: Patient Limitations: No Limitations Description of Symptoms (Recalled from ER Triage Doc. by RN): c/o increased soa, diarrhea and sweats and chills since last night. History of Present Illness HPI narrative: This patient is a 69-year-old male with a history of COPD on 3 L nasal cannula at home presented to the emergency department for evaluation with concern for shortness of breath. Patient reports that he started feeling bad last night with increased cough, sputum production, shortness of breath, diarrhea, sweats, and chills. He has been taking his medications at home as prescribed with no good improvement. He reportedly was sent by his primary care provider who was concerned he may need to be admitted for work of breathing. Patient denies any associated pain, only stating that he feels significantly short of breath Related Data Home Medications ?Medication ?Instructions ?Recorded ?Confirmed trazodone 150 mg tablet 150 mg PO HS 07/03/22 08/25/24 fluticasone fur. 100 mcg-umeclid 1 inh inhalation DAILY Copd 01/05/23 08/25/24 62.5 mcg-vilant 25 mcg inhalat.powder (Trelegy Ellipta) aspirin 325 mg tablet 325 mg PO DAILY 05/11/23 08/25/24 albuterol sulfate 90 mcg/actuation 2 puff inhalation QIDP PRN 06/11/24 08/25/24 aerosol inhaler Shortness Of Breath Or Wheezing azelastine 137 mcg (0.1 %) nasal 2 spray intranasal BID 07/31/24 08/25/24 spray propranolol 20 mg tablet 20 mg PO BID 08/23/24 08/25/24 Previous Rx's ?Medication ?Instructions ?Recorded ipratropium 0.5 mg-albuterol 3 mg 3 ml inhalation QIDP PRN Shortness 06/12/24 (2.5 mg base)/3 mL nebulization Of Breath Or Wheezing 30 days #180 soln mL ergocalciferol (vitamin D2) 1,250 50,000 unit PO WEEKLY 30 days #4 08/05/24 mcg (50,000 unit) capsule caps nicotine 14 mg/24 hr daily 1 patch transdermal DAILY 28 days 08/05/24 transdermal patch #28 ea nicotine (polacrilex) 4 mg buccal 4 mg buccal Q6H PRN nicotine 08/23/24 lozenge cravings #72 ea levofloxacin 750 mg tablet 750 mg PO DAILY 7 days #7 tabs 09/14/24 prednisone 20 mg tablet 40 mg (2 x 20 mg) PO DAILY 4 days 09/14/24 #8 tabs Allergies Allergy/AdvReac Type Severity Reaction Status Date / Time silver Allergy Severe Rash Verified 08/25/24 10:33 [From Tegaderm AG Mesh] doxycycline Allergy Mild Verified 08/25/24 10:33 Penicillins [PENICILLINS] Allergy Mild Verified 08/25/24 10:33 amitriptyline AdvReac Intermediate gi upset Verified 08/25/24 10:33 adhesive AdvReac Verified 08/25/24 10:33 hydrocodone AdvReac Verified 08/25/24 10:33 PFSH PFSH Disclaimer: The information contained in this section may have been updated after the patient was seen, as this information can be updated by other users. Medical History Bilateral impacted cerumen Tinnitus Hearing loss Lung nodule Hilar lymphadenopathy Pneumonia Sleep apnea Emphysema/COPD Chronic cough Bronchitis Allergies History of anemia Lung collapse Nodule of right lung Tobacco abuse disorder Tobacco abuse counseling Small cell lung cancer Smoking greater than 30 pack years Chronic hypoxemic respiratory failure COPD (chronic obstructive pulmonary disease) Dyspnea on exertion On home O2 Sinus problem History of chemotherapy History of radiation therapy Personal history of arthritis History of lung disease Hyperlipemia Cancer Asthma Essential hypertension COPD exacerbation Surgical History History of insertion of tunneled central venous catheter (CVC) with port History of colonoscopy Hx of cardiac catheterization Normal coronary arteries History of sinus surgery Family History Other Cancer Diabetes Social History Smoking Status: Current every day smoker tobacco type: cigarettes packs per day: 1 years smoked: 50 alcohol intake: former substance use type: denies use current occupational status: retired and disabled Travel in the last 8 weeks: None household members: spouse housing: house caffeine: Yes Other Medical History Have you received the Flu Vaccine for this season: No Have you received the Pneumonia Vaccine: Yes ROS Obtained: Yes All systems reviewed & no additional complaints except as documented Physical Exam General General appearance: alert Comment: In mild respiratory distress with increased work of breathing, pursed lip breathing, prolonged expiratory phase Head Head exam: atraumatic and normocephalic Eye Eye exam: Present normal appearance, PERRL and EOMI ENT ENT exam: Present normal exam, normal oropharynx, mucous membranes moist and normal external ear exam Neck Neck exam: Present normal inspection, full ROM and trachea midline; Absent tenderness Chest Chest inspection: Present normal inspection and symmetric chest wall rise; Absent tenderness Respiratory Respiratory exam: Present respiratory distress, wheezes, accessory muscle use, prolonged expiratory phase and other (Diminished breath sounds bilaterally with faint wheezing noted); Absent stridor Cardiovascular Cardiovascular exam: Present regular rate and normal rhythm Abdominal Exam Abdominal exam: Present soft; Absent distention, tenderness or guarding Extremities Exam Extremities exam: Present normal inspection, full ROM and normal capillary refill; Absent tenderness or edema Back Exam Back exam: Present normal inspection and full ROM; Absent tenderness Neurological Exam Neurological exam: Present alert, oriented X3, CN II-XII intact and normal gait; Absent motor sensory deficit Psychiatric Psychiatric exam: Present normal affect and normal mood Skin Skin exam: Present warm and dry HEART Score HEART Score HEART Score assessment performed?: Yes History (anamnesis): Slightly suspicious ECG: Normal Age: >65 years Risk factors: Atherosclerosis history Troponin: </= normal limit HEART Score: 4 Critical Care Critical Care Time Critical Care Time: Yes Attestation: On 09/14/24, the high probability of a clinically significant, sudden or life threatening deterioration of the following system(s) required my full and direct attention, intervention and personal management. The time I documented below is in addition to time spent performing reported procedures but includes the following listed in this critical care notation. Total Time Total Critical Care Time: 40 Medical Decision Making [place] Inquiry Pt receiving controlled substance: No Vital Signs Vital Signs: 09/14/24 12:07 09/14/24 12:30 09/14/24 13:31 Temperature 97.9 F Temperature Source Oral Pulse Rate 73 84 Pulse Rate [Left Radial] 74 Respiratory Rate 26 H Blood Pressure 142/96 H 158/90 H Blood Pressure [Right Arm] 150/97 H Blood Pressure Mean 116 Blood Pressure Mean [Right Arm] 114 Blood Pressure Source [Right Arm] Automatic Cuff Blood Pressure Position [Right Arm] Sitting 02 Sat by Pulse Oximetry 99 100 99 Oxygen Delivery Method Room Air Nasal Cannula Oxygen Flow Rate (LPM) 4 09/14/24 14:00 09/14/24 14:20 09/14/24 14:20 Temperature Temperature Source Pulse Rate 86 86 86 Pulse Rate [Left Radial] Respiratory Rate Blood Pressure 162/95 H Blood Pressure [Right Arm] Blood Pressure Mean Blood Pressure Mean [Right Arm] Blood Pressure Source [Right Arm] Blood Pressure Position [Right Arm] 02 Sat by Pulse Oximetry 99 Oxygen Delivery Method Oxygen Flow Rate (LPM) 09/14/24 14:31 09/14/24 15:00 Temperature Temperature Source Pulse Rate 88 90 Pulse Rate [Left Radial] Respiratory Rate Blood Pressure 142/102 H 167/97 H Blood Pressure [Right Arm] Blood Pressure Mean 113 120 Blood Pressure Mean [Right Arm] Blood Pressure Source [Right Arm] Blood Pressure Position [Right Arm] 02 Sat by Pulse Oximetry 99 95 Oxygen Delivery Method Oxygen Flow Rate (LPM) Lab Data Labs: Lab Results 09/14/24 12:26: WBC 6.9, RBC 3.92 L, Hgb 12.2 L, Hct 36.0 L, MCV 91.7, MCH 31.0, MCHC 33.9, RDW 13.9, Plt Count 301, MPV 7.4, Neut % (Auto) 71.7, Lymph % (Auto) 17.4, [place] % (Auto) 7.2, Eos % (Auto) 2.9, Baso % (Auto) 0.7, Neut # (Auto) 5.0, Lymph # (Auto) 1.2, [place] # (Auto) 0.5, Eos # (Auto) 0.2, Baso # (Auto) 0.1, D-Dimer 0.62 H, Sodium 139, Potassium 4.1, Chloride 96 L, Carbon Dioxide 33 H, Anion Gap 14.1, BUN 10, Creatinine 0.70, Estimated Creat Clear 57, Estimated GFR 112, Est GFR ( Amer) 136, Glucose 131 H, Calcium 5.7 L, Magnesium 1.6, Total Bilirubin 0.7, AST 28, ALT 12, Alkaline Phosphatase 94, Troponin I < 0.01, NT-Pro-B Natriuret Pep 468 H, Total Protein 7.9, Albumin 4.5, Globulin 3.4 H, Albumin/Globulin Ratio 1.3 09/14/24 12:27: VBG pH 7.32, VBG pCO2 60.1 H, VBG pO2 65.7 H, VBG HCO3 30.1 H, VBG Total CO2 31.9 H, VBG O2 Saturation 91.0 H, VBG Base Excess 3.9 H, VBG Lactic Acid 1.0 09/14/24 12:41: SARS-CoV-2 (PCR) Not detected, Influenza A Untype (PCR) Not detected, Influenza Type B (PCR) Not detected 09/14/24 13:01: Lactate 0.7 09/14/24 12:26 09/14/24 12:26 Response Orders (Tests/Meds): ED MEDICATIONS Generic Name Dose Route Start Last Admin Trade Name Freq PRN Reason Stop Dose Admin Sodium Chloride 3 ml 09/14/24 12:31 Sodium Chloride 3% 15ml [facility] 10/14/24 12:30 ONCE PRN INDUCE SPUTUM COLLECTION Discontinued Medications Generic Name Dose Route Start Last Admin Trade Name Freq PRN Reason Stop Dose Admin Albuterol Sulfate 20 mg 09/14/24 14:11 09/14/24 14:20 Albuterol 0.083% 2.5 Mg/3 Ml [facility] 09/14/24 14:12 20 mg ONCE ONE Administration Albuterol/Ipratropium 9 ml 09/14/24 12:28 09/14/24 12:41 Ipratropium/Albuterol 3 Ml [facility] 09/14/24 12:29 9 ml ONCE ONE Administration Calcium Gluconate/Sodium Chloride 2 gm in 100 mls @ 50 mls/hr 09/14/24 13:22 09/14/24 13:36 Calcium Gluconate 2,000mg/100ml Nacl Premix IV 09/14/24 15:21 50 mls/hr ONCE ONE Administration Magnesium Sulfate 2 gm in 50 mls @ 50 mls/hr 09/14/24 13:39 09/14/24 14:19 Magnesium Sulfate 2gm/50ml Premix IV 09/14/24 14:38 50 mls/hr ONCE ONE Administration Levofloxacin 750 mg 09/14/24 13:23 09/14/24 13:36 Levofloxacin 750 Mg Tablet PO 09/14/24 13:24 750 mg ONCE ONE Administration Methylprednisolone Sodium Succinate 125 mg 09/14/24 12:28 09/14/24 12:41 Methylprednisolone Sod Succ 125mg Vial IV 09/14/24 12:29 125 mg ONCE ONE Administration ORDERS Category Date Time Status CXR --portable [XR chest portable] Stat Exams 09/14/24 12:27 Completed BNP [NT Pro Brain Natriuretic Pep.] Stat Lab 09/14/24 12:26 Completed Complete Blood Count Auto Diff Stat Lab 09/14/24 12:26 Completed Comprehensive Metabolic Panel Stat Lab 09/14/24 12:26 Completed D-Dimer Stat Lab 09/14/24 12:26 Completed HIV (1&2) Antibody Rapid Stat Lab 09/14/24 12:26 Received Hep C Ab with Reflex to RNA Stat Lab 09/14/24 12:26 Received Lactic Acid Stat Lab 09/14/24 13:01 Completed Magnesium Stat Lab 09/14/24 12:26 Completed Rapid PCR Covid and Flu A/B Stat Lab 09/14/24 12:41 Completed Trop I [Troponin I] Stat Lab 09/14/24 12:26 Completed Troponin I Q3H Lab 09/14/24 15:38 Received Troponin I Q3H Lab 09/14/24 18:30 Ordered Sputum Culture & Gram Stain Stat Micro 09/14/24 14:30 Received VBG [Venous Blood Gas] Stat RT 09/14/24 12:27 Completed ECG Data Tracing #1: Attestation: I reviewed this ECG and interpreted as documented below: ECG Narrative: Normal sinus rhythm with a ventricular rate of [address] changes concerning for ischemia. ECG initial impression date: 09/14/24 ECG initial impression time: 14:19 MDM Narrative Medical Decision Narrative: In summary, this patient is a 69-year-old male presenting to the Emergency Department for evaluation of shortness of breath. Differential diagnoses considered include but are not limited to COPD exacerbation, pneumonia, respiratory failure. Ruling out the most morbid conditions drove assessment. It should be noted patient's history includes COPD which is not at goal therapy. This complicates all aspects of care by increasing patient's risk for morbidity. I reviewed patient's past medical records and noted previous evaluations for similar complaints and diagnosis of COPD exacerbation. On exam, the patient is sitting upright with increased work of breathing. He has pursed lip breathing, prolonged expiratory phase, tachypnea. His O2 saturation is 100% on his home 3 L nasal cannula. He is also had chills, shortness of breath, cough with increased pedal production, and diarrhea concerning for infectious etiology versus COPD exacerbation. Workup included lab workup to evaluate for metabolic and cardiac causes of his symptoms as well as chest x-ray and EKG. I independently interpreted chest x-ray prior to the radiologist read and noted no acute consolidation. Please see their read for final interpretation. Labs were obtained that demonstrated negative troponin. Calcium is low, for which IV replacement was ordered. He has a compensated respiratory acidosis that appears chronic. Patient was given DuoNebs x 3 as well as IV methylprednisolone. Given his increased sputum production, he was given oral Levaquin, as he has multiple antibiotic allergies. He was also given IV magnesium. He continued to have increased work of breathing on multiple subsequent reassessments with tachypnea and pursed lip breathing, but he is moving better air and states he is feeling a lot better. He was given a continuous neb to see if we could further improve his work of breathing. This did help some, but he continues to have significant tachypnea with pursed lips breathing. He notes that he always has trouble breathing and this is not worse than his baseline. I advised to him that given his work of breathing, I feel he would benefit from admission for continued management, however he states he wants to go home. Given this, we will discharge him via patient directed discharge. He was given prescriptions for Levaquin and prednisone as well as instructions for supportive management at home. Vitals stable on his home oxygen at time of discharge.
--- NOTE | 2024-09-14 14:18 | ECG_ITS ---
APPROVED REPORT Exam: Resting ECG HR:86 bpm ECG Measurements Heart Rate 86 AXES NJ 144 P 78 QRSd 101 QRS 84 QT 387 T 66 QTc 430 Conclusion SINUS RHYTHM Tall T waves, possibly hyperacute, otherwise normal ECG No STEMI Electronically signed by : GERALD LORENZANA, 09/14/2024 23:43:10
[2024-09-14] MEDS: MAGNESIUM SULFATE IN WATER 2 GM/50 ML PIGGYBACK IV (14:19)
[2024-09-14] MEDS: ALBUTEROL 0.083% 2.5 MG/3 ML NEB 20 MG IH (14:20)
[2024-09-14 14:35] LABS: D-Dimer 0.62 ug/mL (0.0-0.5)
[2024-09-14 16:08] LABS: HIV (1&2) Antibody Rapid NONREACTIVE (NONREACTIVE)
[2024-09-14 16:21] LABS: Troponin I < 0.01 ng/ml (0.00-0.034)
[2024-09-15 07:20] LABS: HCV Ab Non Reactive (Non Reactive)
== END 2024-09-14 16:00 | disposition home or self-care (01) ==
PROVIDERS: Emergency Provider Emergency Medicine; PCP Internal Medicine Adolescent Medicine
DX: J44.1 Chronic obstructive pulmonary disease with (acute) exacerbation (principal); Z99.81 Dependence on supplemental oxygen
CPT/HCPCS: 71045; 80053; 82803; 83605; 83735; 83880; 84484; 85025; 85378; 87070; 87205; 87389; 87636; 93005; J1642; J2919; J3475; J7613; J7620

== ENCOUNTER 2024-09-14 18:50 | Observation (INO) | payer MEDICARE, SELFPAY ==
[2024-09-14] VITALS (7 sets, daily range): BP systolic 155–200; BP diastolic 94–112; PULSE 93–110; RESP 20; TEMP 36.6; O2SAT 98–100; BMI 17.9; BMI 17.0
--- NOTE | 2024-09-14 19:47 | ED_ITS ---
<Statement entered by Layton Urbina MD - 09/14/24 23:41> I was consulted by the ABEBA, and we discussed the complexity of problems being addressed. I approved the treatment and management plan for this patient's care in the emergency department, thus performing a substantial portion of the medical decision making. Layton Urbina MD Discharge Plan Disposition Patient Disposition: Admitted Condition: Serious Clinical Impressions Clinical Impression: Acute exacerbation of chronic obstructive airways disease Discharge ED Provider: Layton Urbina HPI General Chief Complaint: Shortness of Breath/Dyspnea Stated Complaint: SOA Time Seen by Provider: 09/14/24 18:59 History of Present Illness HPI narrative: Patient Carlos presents for evaluation of dyspnea. Patient was seen and evaluated earlier this date and ultimately was recommended for admission due to failure of conservative management however via patient directed discharge patient elected go home is given prescriptions for Levaquin and prednisone and was discharged on his baseline 3 L by nasal cannula initially. However he continued to have creased work of breathing and he began feeling fatigued thus we presented for admission. Patient is now requiring 4 L for comfort but still has increased work of breathing but only breathing 20 times a minute. No new changes. Related Data Home Medications ?Medication ?Instructions ?Recorded ?Confirmed trazodone 150 mg tablet 150 mg PO HS 07/03/22 09/14/24 fluticasone fur. 100 mcg-umeclid 1 inh inhalation DAILY Copd 01/05/23 09/14/24 62.5 mcg-vilant 25 mcg inhalat.powder (Trelegy Ellipta) aspirin 325 mg tablet 325 mg PO DAILY 05/11/23 09/14/24 albuterol sulfate 90 mcg/actuation 2 puff inhalation QIDP PRN 06/11/24 09/14/24 aerosol inhaler Shortness Of Breath Or Wheezing azelastine 137 mcg (0.1 %) nasal 2 spray intranasal BID 07/31/24 09/14/24 spray propranolol 20 mg tablet 20 mg PO BID 08/23/24 09/14/24 Previous Rx's ?Medication ?Instructions ?Recorded ipratropium 0.5 mg-albuterol 3 mg 3 ml inhalation QIDP PRN Shortness 06/12/24 (2.5 mg base)/3 mL nebulization Of Breath Or Wheezing 30 days #180 soln mL ergocalciferol (vitamin D2) 1,250 50,000 unit PO WEEKLY 30 days #4 08/05/24 mcg (50,000 unit) capsule caps nicotine 14 mg/24 hr daily 1 patch transdermal DAILY 28 days 08/05/24 transdermal patch #28 ea nicotine (polacrilex) 4 mg buccal 4 mg buccal Q6H PRN nicotine 08/23/24 lozenge cravings #72 ea levofloxacin 750 mg tablet 750 mg PO DAILY 7 days #7 tabs 09/14/24 prednisone 20 mg tablet 40 mg (2 x 20 mg) PO DAILY 4 days 09/14/24 #8 tabs Allergies Allergy/AdvReac Type Severity Reaction Status Date / Time silver Allergy Severe Rash Verified 08/25/24 10:33 [From Tegaderm AG Mesh] doxycycline Allergy Mild Verified 08/25/24 10:33 Penicillins [PENICILLINS] Allergy Mild Verified 08/25/24 10:33 amitriptyline AdvReac Intermediate gi upset Verified 08/25/24 10:33 adhesive AdvReac Verified 08/25/24 10:33 hydrocodone AdvReac Verified 08/25/24 10:33 PFSH PFSH Disclaimer: The information contained in this section may have been updated after the patient was seen, as this information can be updated by other users. Medical History Bilateral impacted cerumen Tinnitus Hearing loss Lung nodule Hilar lymphadenopathy Pneumonia Sleep apnea Emphysema/COPD Chronic cough Bronchitis Allergies History of anemia Lung collapse Nodule of right lung Tobacco abuse disorder Tobacco abuse counseling Small cell lung cancer Smoking greater than 30 pack years Chronic hypoxemic respiratory failure COPD (chronic obstructive pulmonary disease) Dyspnea on exertion On home O2 Sinus problem History of chemotherapy History of radiation therapy Personal history of arthritis History of lung disease Hyperlipemia Cancer Asthma Essential hypertension COPD exacerbation Surgical History History of insertion of tunneled central venous catheter (CVC) with port History of colonoscopy Hx of cardiac catheterization Normal coronary arteries History of sinus surgery Family History Other Cancer Diabetes Social History (Updated 09/14/24 @ 22:12 by Kerri Nj RN) Smoking Status: Current every day smoker tobacco type: cigarettes packs per day: 1 years smoked: 50 alcohol intake: former substance use type: denies use current occupational status: retired and disabled Travel in the last 8 weeks: None household members: spouse housing: house caffeine: Yes Other Medical History Have you received the Flu Vaccine for this season: No Have you received the Pneumonia Vaccine: Yes ROS Obtained: Yes Systems reviewed as appropriate & no additional complaints except as documented Physical Exam General General appearance: alert and in no apparent distress Respiratory Respiratory exam: Present respiratory distress, wheezes, accessory muscle use and prolonged expiratory phase; Absent normal lung sounds bilaterally Cardiovascular Cardiovascular exam: Present regular rate Neurological Exam Neurological exam: Present alert and oriented X3 HEART Score HEART Score HEART Score assessment performed?: No Critical Care Critical Care Time Critical Care Time: No Medical Decision Making Medical Records Medical records reviewed: Yes I reviewed the patient's medical records. [place] Inquiry Pt receiving controlled substance: No Vital Signs Vital Signs: 09/14/24 18:51 09/14/24 20:15 09/14/24 21:19 Temperature 97.9 F 97.8 F Temperature Source Oral Oral Pulse Rate 98 H Pulse Rate [Left] 99 H 93 H Respiratory Rate 20 20 Blood Pressure 200/111 H Blood Pressure [Right Arm] 192/112 H 155/94 H Blood Pressure Mean [Right Arm] 138 114 Blood Pressure Source [Right Arm] Automatic Cuff 02 Sat by Pulse Oximetry 99 100 99 Oxygen Delivery Method Nasal Cannula Nasal Cannula Oxygen Flow Rate (LPM) 4 Lab Data Lab results reviewed: Yes I reviewed the patient's lab results. Response Orders (Tests/Meds): ED MEDICATIONS Generic Name Dose Route Start Last Admin Trade Name Freq PRN Reason Stop Dose Admin Acetaminophen 650 mg 09/14/24 20:29 Acetaminophen 325mg Tab PO 10/14/24 20:28 Q4HP PRN Fever or Mild Pain (1-3) Albuterol/Ipratropium 3 ml 09/14/24 22:00 09/14/24 21:33 Ipratropium/Albuterol 3 Ml Neb IH 10/14/24 21:59 3 ml Q4RT DOREEN Administration Budesonide 0.5 mg 09/15/24 06:00 Budesonide 0.5mg/2ml Neb IH 10/15/24 05:59 BIDRT DOREEN Enoxaparin Sodium 40 mg 09/14/24 20:45 09/14/24 21:54 Enoxaparin 40mg/0.4ml Syringe SUBCUT 10/14/24 20:44 40 mg DAILY DOREEN Administration Methylprednisolone Sodium Succinate 80 mg 09/14/24 20:45 09/14/24 21:54 Methylprednisolone Sod Succ 125mg Vial IV 10/14/24 20:44 80 mg Q8H DOREEN Administration Nicotine 14 mg 09/14/24 20:45 09/14/24 21:52 Nicotine 14mg/24hrs Patch TD 10/14/24 20:44 14 mg DAILY DOREEN Administration Ondansetron HCl 4 mg 09/14/24 20:29 Ondansetron 4mg/2ml Vial IV 10/14/24 20:28 Q8HP PRN Nausea Pantoprazole Sodium 40 mg 09/14/24 21:00 09/14/24 22:18 Pantoprazole 40mg Tablet PO 10/14/24 20:59 Not Given HS DOREEN Sodium Chloride 10 ml 09/14/24 20:29 Sodium Chloride 0.9% 10ml Flush Syringe IV 10/14/24 20:28 NEEDED PRN Maintain IV Site ORDERS Category Date Time Status Complete Blood Count Auto Diff [facility] Lab 09/15/24 06:00 Ordered Comprehensive Metabolic Panel [facility] Lab 09/15/24 06:00 Ordered Magnesium [facility] Lab 09/15/24 06:00 Ordered MDM Narrative Medical Decision Narrative: In summary patient is a 69-year-old male who presents to the emergency department for evaluation of aspiratory distress. Patient is initially hypertensive with a blood pressure 192/112 with a heart rate of 99 satting at 99% on 4 L by nasal cannula breathing 20 times a minute upon arrival, afebrile. Physical exam shows clear breath sounds but increased work of breathing with pursed lipped prolonged expiratory phase and expiratory wheezes in all 4 mcgill patient appears to be not comfortable and is standing at the time my exam. Differential diagnosis includes the OPD with acute exacerbation versus possible pneumonia etc. Initial workup was completed earlier this date and no new changes suggest any need for laboratory or imaging. Given this I had an interactive discussion with hospital medicine regarding patient management and patient will be admitted for further evaluation and care.
--- NOTE | 2024-09-14 21:09 | PC.NURSE ---
Report called to RAISA Manning
--- NOTE | 2024-09-14 21:19 | PC.NURSE ---
pt arrived to floor at this time
[2024-09-14] MEDS: IPRATROPIUM/ALBUTEROL 3 ML NEB IH ×2 (21:33→23:41)
[2024-09-14] MEDS: NICOTINE 14MG/24HRS PATCH 14 MG TD (21:52)
[2024-09-14] MEDS: ENOXAPARIN 40MG/0.4ML SYRINGE 40 MG SUBCUT (21:54)
[2024-09-14] MEDS: METHYLPREDNISOLONE SOD SUCC 125MG VIAL 80 MG IV (21:54)
--- NOTE | 2024-09-14 23:24 | PC.NURSE ---
PT CALLED OUT STATING THAT HE WAS HAVING A HARD TIME BREATHING. MARGARET LOTT NOTIFIED. STATED HE WOULD ORDER ANOTHER DUONEB. ATTEMPTED TO FIND A FAN FOR PT BUT ONE WAS NOT AVAILABLE. THIS RN ASKED PT IF THERE WAS ANYTHING ELSE THAT STAFF COULD DO FOR HIM TO EASE HIS BREATHING. PT DENIED OTHER NEEDS.
--- NOTE | 2024-09-14 23:45 | EXP.HP ---
History of Present Illness *Admission Date: 09/14/24 *Reason for visit:: Exacerbation of COPD with shortness of breath *History of present illness: Patient is a long-term smoker, usually O2 dependent at home, has not been able to stop smoking comes in the emergency room several times for the same problem.. Patient was evaluated treated nebulizers given a steroid went home was not able to tolerate it and came back to the emergency room. ER doctor consulted with me that I did come down to see the patient. The patient expressed severe distress not being able to go home lung sounds extensively wheezing. Oxygen saturation above 90 with slightly elevated tachycardia. I do agree with the ER physician patient has come back twice very uncomfortable question whether some other increasing underlying problem or whether he is just starting to decompensate.. Noting that the weather has been quite windy a lot of dust in the air for this time of year, so I do agree with the ER physician patient is not can be able to tolerate being released to home so we will place him on the floor increased breathing treatments [id number] will give extra steroids going to give a small touch of Xanax to try to calm him down continue his trazodone. Teaching has been done with the patient patient at first did not want to be intubated then later on said he would want everything done so the patient will be a full code. He understands if he was to decompensate I placed him on a ventilator there is a potential that he would not be able to be easily weaned. Patient since about 2020 has been treated for small cell cancer within the lesion noted in the liver at 1 time. Patient has been seeing Dr. De Leon and per his notes lesions in the lungs appear to be unchanged with no signs of metastasis to the rest of the body., Was noted that the cancer chemotherapy had to be held due to increased COPD exacerbations earlier this year. Patient continues to smoke [facility] Disclaimer: The information contained in this section may have been updated after the patient was seen, as this information can be updated by other users. Medical History Bilateral impacted cerumen Tinnitus Hearing loss Lung nodule Hilar lymphadenopathy Pneumonia Sleep apnea Emphysema/COPD Chronic cough Bronchitis Allergies History of anemia Lung collapse Nodule of right lung Tobacco abuse disorder Tobacco abuse counseling Small cell lung cancer Smoking greater than 30 pack years Chronic hypoxemic respiratory failure COPD (chronic obstructive pulmonary disease) Dyspnea on exertion On home O2 Sinus problem History of chemotherapy History of radiation therapy Personal history of arthritis History of lung disease Hyperlipemia Cancer Asthma Essential hypertension COPD exacerbation Surgical History History of insertion of tunneled central venous catheter (CVC) with port History of colonoscopy Hx of cardiac catheterization Normal coronary arteries History of sinus surgery Family History Other Cancer Diabetes Social History (Updated 09/14/24 @ 22:12 by Kerri Nj RN) Smoking Status: Current every day smoker tobacco type: cigarettes packs per day: 1 years smoked: 50 alcohol intake: former substance use type: denies use current occupational status: retired and disabled Travel in the last 8 weeks: None household members: spouse housing: house caffeine: Yes Other Medical History Have you received the Flu Vaccine for this season: Yes Have you received the Pneumonia Vaccine: Yes Review of Systems Review of Systems Review of systems:: pertinent systems reviewed and negative unless documented below Constitutional Constitutional: Reports as per HPI Comments: Long history of been treated for small cell cancer of the lung Eyes Eyes: Reports as per HPI ENT Ears, Nose, Mouth, and Throat: Reports as per HPI *Cardiovascular Cardiovascular: Reports as per HPI, Reports dyspnea and Reports dyspnea on exertion *Respiratory Respiratory: Reports dyspnea, Reports dyspnea on exertion and Reports wheezing *Gastrointestinal Gastrointestinal: Reports system reviewed and no additional complaints, except as documented and Reports as per HPI *Genitourinary Genitourinary: Reports system reviewed and no additional complaints, except as documented *Musculoskeletal Musculoskeletal: Reports system reviewed and no additional complaints, except as documented Comments: Patient noted he had no problems with been able to get up and ambulate use the bathroom things such as that., Normally he is O2 dependent but is able to take his oxygen off for short periods of time for things such as going to the bathroom Integumentary/Breasts Skin/Breast: Reports system reviewed and no additional complaints, except as documented *Neurologic Neurologic: Reports system reviewed and no additional complaints, except as documented Psychiatric Psychiatric: Reports system reviewed and no additional complaints, except as documented and Reports anxiety Comments: Patient having difficulty. Breathing at this time which also makes him feel very anxious., Endocrine Endocrine: Reports as per HPI Hematologic/Lymphatic Hematologic/Lymphatic: Reports as per HPI Allergic/Immunologic Allergic/Immunologic: Reports as per HPI and Reports wheezing Meds Home Medications and Allergies Home Medications ?Medication ?Instructions ?Recorded ?Confirmed ?Type trazodone 150 mg tablet 150 mg PO HS 07/03/22 09/14/24 History fluticasone fur. 100 mcg-umeclid 1 inh inhalation DAILY 01/05/23 09/14/24 History 62.5 mcg-vilant 25 mcg inhalat.powder (Trelegy Ellipta) aspirin 325 mg tablet 325 mg PO DAILY 05/11/23 09/14/24 History albuterol sulfate 90 mcg/actuation 2 puff inhalation QIDP PRN 06/11/24 09/14/24 History aerosol inhaler Shortness Of Breath Or Wheezing ipratropium 0.5 mg-albuterol 3 mg 3 ml inhalation QIDP PRN Shortness 06/12/24 09/14/24 Rx (2.5 mg base)/3 mL nebulization Of Breath Or Wheezing 30 days #180 soln mL azelastine 137 mcg (0.1 %) nasal 2 spray intranasal BID 07/31/24 09/14/24 History spray ergocalciferol (vitamin D2) 1,250 50,000 unit PO WEEKLY 30 days #4 08/05/24 09/14/24 Rx mcg (50,000 unit) capsule caps nicotine 14 mg/24 hr daily 1 patch transdermal DAILY 28 days 08/05/24 09/14/24 Rx transdermal patch #28 ea nicotine (polacrilex) 4 mg buccal 4 mg buccal Q6H PRN nicotine 08/23/24 09/14/24 Rx lozenge cravings #72 ea propranolol 20 mg tablet 20 mg PO BID 08/23/24 09/14/24 History levofloxacin 750 mg tablet 750 mg PO DAILY 7 days #7 tabs 09/14/24 09/14/24 Rx prednisone 20 mg tablet 40 mg (2 x 20 mg) PO DAILY 4 days 09/14/24 09/15/24 Rx #8 tabs New Prescriptions to Start Prescriptions: Allergies Allergy/AdvReac Type Severity Reaction Status Date / Time silver Allergy Severe Rash Verified 08/25/24 10:33 [From Tegaderm AG Mesh] doxycycline Allergy Mild Verified 08/25/24 10:33 Penicillins [PENICILLINS] Allergy Mild Verified 08/25/24 10:33 amitriptyline AdvReac Intermediate gi upset Verified 08/25/24 10:33 adhesive AdvReac Verified 08/25/24 10:33 hydrocodone AdvReac Verified 08/25/24 10:33 Exam Data for Last 24 hours Vital signs and Labs for Last 24 Hours: Temp Pulse Resp BP Pulse Ox O2 Del Method O2 Flow Rate 97.9 F 98 H 20 182/99 H 99 Nasal Cannula 4 09/14/24 21:27 09/14/24 21:34 09/14/24 21:27 09/14/24 21:27 09/14/24 21:19 09/14/24 23:00 09/14/24 23:00 I & O for Last 24 hours: Intake & Output 09/11/24 09/12/24 09/13/24 09/14/24 22:59 23:59 23:59 23:59 Output Total 0 / 0 Balance 0 / 0 Weight 54.068 kg Radiology Reports for the Last 24 Hours: Chest x-ray shows no new acute changes Constitutional Constitutional: moderate distress and thin Comments: Patient noted that he feels anxious having difficulty breathing,, requiring increased nebulizer treatments. *Routine HEENT Exam Head: Present normocephalic and atraumatic Eye: Present EOMI and PERRL ENT: Present mucous membranes moist *Routine Neck Exam Neck: Present full ROM Routine Chest/Breast/Axilla Exam Comments: No tenderness noted *Routine Respiratory Exam Respiratory: Present accessory muscle use, decreased breath sounds, respiratory distress, rhonchi, wheezes and able to speak in complete sentences Comments: Noted the patient is O2 dependent at home., But he is able to get up and move and walk to the bathroom without oxygen., On return his saturations remained at 91%, lung sounds severe wheezing both inspiratory and expiratory throughout all feel decreased air movement *Routine Cardiovascular Exam Cardiovascular: Present RRR, Normal S1, Normal S2 and tachycardia Comments: Mild tachycardia noted *Routine Abdominal Exam Abdominal: Present soft and normoactive bowel sounds *Routine Rectal Exam Rectal:: deferred *Routine Genitalia Exam Genitalia:: deferred *Routine Extremities Exam Extremities: Present full ROM Comments: Patient was able to get up and use the bathroom without assistance., No difficulty and sitting and arising from being seated without assistance Routine Back/Spine/Pelvis Exam Back/Spine: Present full ROM Comments: Patient is able to walk and move without assistance no sign of any significant back pain *Routine Skin Exam Skin: Present intact, dry and pallor *Routine Neurological Exam Neurological: Present alert, oriented X3, CN II-XII intact, moving all extremities, normal tone, vision grossly intact, hearing grossly intact and normal speech Routine Psychiatric Exam Psychiatric: Present normal affect, normal thought process, cooperative, good insight and good judgment Comments: Patient is easy to deal with listens to instructions well ask questions without any difficulty., Expressed understanding that he knows of smoking is some of his problem but he is just not able to stop Is having some anxiety symptoms related to the difficulty in breathing even though oxygen saturations remain 90 or above H&P: Result Impressions 1. Lifelong smoker with long history of COPD COPD and oxygen dependency, multiple visits to the emergency room 2. 3-year treatment with chemotherapy off-and-on seeing Dr. De Leon for small cell carcinoma with possible mets to the liver at 1 time remaining stable on follow-up 3. Anxiety release related to his shortness of breath and the extensive use of muscles to be able to breathe. Imaging and Cardiology Chest x-ray: Status: image reviewed by me Additional comments: No acute new changes., CTA of the lung was also reviewed from his last visit Assessment and Plan *Assessment and plan (1) Acute on chronic respiratory failure with hypoxia and hypercapnia: Status: Acute Category: Medical Code(s): J96.21 - Acute and chronic respiratory failure with hypoxia; J96.22 - Acute and chronic respiratory failure with hypercapnia (2) Acute exacerbation of chronic obstructive pulmonary disease: Status: Acute Category: Medical Code(s): J44.1 - Chronic obstructive pulmonary disease with (acute) exacerbation (3) Shortness of breath: Status: Acute Category: Medical Code(s): R06.02 - Shortness of breath (4) On home oxygen therapy: Status: Acute Category: Medical Code(s): Z99.81 - Dependence on supplemental oxygen (5) Tobacco dependence: Status: Acute Category: Medical Code(s): F17.200 - Nicotine dependence, unspecified, uncomplicated (6) Small cell lung cancer: Status: Chronic Category: Medical Code(s): C34.90 - Malignant neoplasm of unspecified part of unspecified bronchus or lung Plan 69-year-old male with history of lung cancer, severe COPD, presents with worsening shortness over the past 24 hours. Case asked with ER physician, request admission due to respiratory distress. Medicine agreed to admit. Admitted for management of COPD exacerbation. Pulmonology consulted and assisting with care. Will monitor till tomorrow, anticipate discharge in the next 24 hours. Continue aggressive inhaler treatment, pulmonary toilet, monitoring for stability in his respiratory status. Problems addressed as follows: Acute on chronic hypoxic respiratory failure with hypercapnia due to COPD exacerbation Anxiety - DuoNebs every 4 hours, Pulmicort twice daily. - Continue methylprednisolone 80 mg IV every 8 hours. will wean to prednisone at time of discharge - Holding on antibiotics at this time. Due to anxiety component, initiate Xanax 0.25 mg every 8 hours as needed - Resume Trelegy daily -Pulmonology consulted for the morning -Respiratory panel pending - White count normal at 6.9, hemoglobin 12. BUN 10, creatinine 0.7. Calcium low at 5.7. BNP mildly elevated at 468. Does not appear volume overloaded at this time. - Repeat CBC, CMP, magnesium ordered for the morning. -Chest with no focal consolidation. Has severe hyperinflation on personal review Tobacco use disorder: Counseled on need to stop smoking. Seriously complicates patient's respiratory disease. Nicotine patch as needed daily during admission. 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 Protein supplementation with meals DNI Regular diet Prophylactic Lovenox Rounded on patient after nurse practitioner. Personally examined and interviewed patient. Agree with exam findings and care plan as documented.
[2024-09-15] VITALS (14 sets, daily range): BP systolic 121–151; BP diastolic 57–93; PULSE 69–100; RESP 16–22; TEMP 36.6–36.9; O2SAT 92–100; BMI 17.0
[2024-09-15] MEDS: PROPRANOLOL 20MG TAB 20 MG PO ×3 (00:03→20:25)
[2024-09-15] MEDS: ALPRAZolam 0.25MG TABLET 0.25 MG PO (00:03)
[2024-09-15] MEDS: IPRATROPIUM/ALBUTEROL 3 ML NEB IH ×6 (02:15→22:24)
--- NOTE | 2024-09-15 03:31 | PC.NURSE ---
PT HAS DONE FAIR THIS SHIFT. BREATHING IS SOMEWHAT LESS LABORED THIS AM THAN WHEN HE WAS FIRST BROUGHT TO THE FLOOR. HE HAS C/O SHORTNESS OF BREATH X2 THIS SHIFT. UNIT DIRECTOR MADE A PEREZ AND NEW ORDERS WERE CARRIED OUT. PT IS ON 3L NASAL CANNULA AND IS TOLERATING WELL IN THE MID 90'S. VSS.
[2024-09-15] MEDS: METHYLPREDNISOLONE SOD SUCC 125MG VIAL 80 MG IV ×3 (03:56→20:27)
--- NOTE | 2024-09-15 05:48 | PC.NURSE ---
received report from sarabjit rn [id number]
[2024-09-15] MEDS: BUDESONIDE 0.5MG/2ML NEB 0.5 MG IH ×2 (05:56→19:03)
[2024-09-15 06:33] LABS: Alanine Aminotransferase 15 U/L (12-78); Albumin Level 4.3 g/dl (3.5-5.0); Albumin/Globulin Ratio 1.4 (1.1-1.8); Alkaline Phosphatase 76 U/L (38-126); Anion Gap 13.2 mEq/L (5-15); Aspartate Amino Transferase 28 U/L (17-59); Bilirubin,Total 0.6 mg/dl (0.2-1.3); Blood Urea Nitrogen 8 mg/dl (9-20); Calcium 6.1 mg/dl (8.4-10.2); Carbon Dioxide 33 mmol/L (22.0-30.0); Chloride 93 mmol/L (98-107); Creatinine Clearance Estimated 55 mL/min (50-200); Estimated Glomerular Filt Rate 134 ml/min (>60); GFR (African American) 163 ML/MIN (>60); Glucose 153 mg/dl (74-100); Magnesium 1.7 mg/dl (1.6-2.3); Potassium 4.2 mmoL/L (3.5-5.1); Sodium 135 mmol/L (136-145); Total Protein,Serum 7.3 g/dl (6.3-8.2)
[2024-09-15 07:04] LABS: Basophils % 0.1 % (0.1-2.0); Eosinophils % 0.2 % (0.1-12.0); Hematocrit 34.8 % (42.0-52.0); Hemoglobin 11.5 g/dL (14.1-18.0); Lymphocytes # 0.6 K/mm3 (0.7-4.5); Mean Corpuscular Hemoglobin 30.3 pg (27.0-31.2); Mean Platelet Volume 7.3 fl (7.4-10.4); Monocytes # 0.1 K/mm3 (0.1-1.0); Monocytes % 3.2 % (1.7-9.3); Neutrophils # 2.2 K/mm3 (1.8-7.8); Neutrophils % 75.4 % (37.0-80.0); Platelet Count 280 K/mm3 (142-424); Red Blood Count 3.79 M/mm3 (4.60-6.20); Red Cell Distribution Width 13.9 % (11.5-17.5); White Blood Count 2.8 K/mm3 (4.8-10.8)
[2024-09-15] MEDS: NICOTINE 14MG/24HRS PATCH 14 MG TD (08:16)
[2024-09-15] MEDS: ENOXAPARIN 40MG/0.4ML SYRINGE 40 MG SUBCUT (08:16)
[2024-09-15] MEDS: MAGNESIUM SULFATE IN WATER 2 GM/50 ML PIGGYBACK IV (08:43)
[2024-09-15] MEDS: CALCIUM GLUC IN NACL, ISO-OSM 2 GM/100 ML BAG IV (08:43)
[2024-09-15 08:59] LABS: Adenovirus,PCR Not Detected (NotDetected); Bordetella Pertussis Not Detected (NotDetected); Chlamydophila Pneumoniae, PCR Not Detected (NotDetected); Coronavirus 19, PCR Not Detected (NotDetected); Coronavirus 229E Not Detected (NotDetected); Coronavirus NL63 Not Detected (NotDetected); Coronavirus OC43 Not Detected (NotDetected); Coronovirus HKU1,PCR Not Detected (NotDetected); Human Metapneumovirus Not Detected (NotDetected); Influenza A, PCR Not Detected (NotDetected); Influenza AH1, 2009 Not Detected (NotDetected); Influenza AH1, PCR Not Detected (NotDetected); Influenza AH3,PCR Not Detected (NotDetected); Influenza B, PCR Not Detected (NotDetected); Mycoplasma Pneumoniae, PCR Not Detected (NotDetected); Parainfluenza 1, PCR Not Detected (NotDetected); Parainfluenza 2, PCR Not Detected (NotDetected); Parainfluenza 3, PCR Not Detected (NotDetected); Parainfluenza 4, PCR Not Detected (NotDetected); Respiratory Syncytial Virus Not Detected (NotDetected); Rhinovirus/Enterovirus Not Detected (NotDetected)
--- NOTE | 2024-09-15 09:09 | HMH.PHAINT1 ---
Pharmacy Intervention Comments: Home medication list verified using list from outpatient pharmacy
--- NOTE | 2024-09-15 09:36 | P.CONS_ITS ---
History of Present Illness History of present illness: Mr. Simmons is a 69-year-old male COPD triple inhaler therapy and azithromycin presented to ER with worsening respiratory distress and was admitted for management for COPD exacerbation. Patient admits relatively sudden onset symptoms. Admits to using nebulization therapies with no significant improvement in symptoms. Difficulty breathing wheezing and chest tightness. Patient also admits not using his Trelegy inhaler a week prior to admission secondary to insurance complaints issues. [facility] Disclaimer: The information contained in this section may have been updated after the patient was seen, as this information can be updated by other users. Medical History Bilateral impacted cerumen Tinnitus Hearing loss Lung nodule Hilar lymphadenopathy Pneumonia Sleep apnea Emphysema/COPD Chronic cough Bronchitis Allergies History of anemia Lung collapse Nodule of right lung Tobacco abuse disorder Tobacco abuse counseling Small cell lung cancer Smoking greater than 30 pack years Chronic hypoxemic respiratory failure COPD (chronic obstructive pulmonary disease) Dyspnea on exertion On home O2 Sinus problem History of chemotherapy History of radiation therapy Personal history of arthritis History of lung disease Hyperlipemia Cancer Asthma Essential hypertension COPD exacerbation Surgical History History of insertion of tunneled central venous catheter (CVC) with port History of colonoscopy Hx of cardiac catheterization Normal coronary arteries History of sinus surgery Family History Other Cancer Diabetes Social History (Updated 09/14/24 @ 22:12 by Kerri Nj RN) Smoking Status: Current every day smoker tobacco type: cigarettes packs per day: 1 years smoked: 50 alcohol intake: former substance use type: denies use current occupational status: retired and disabled Travel in the last 8 weeks: None household members: spouse housing: house caffeine: Yes Review of Systems Constitutional Constitutional: Denies anorexia, Denies body ache(s) and Reports fatigue Eyes Eyes: Denies eye discharge, Denies dry eyes, Denies irritation and Denies itchy eyes ENT Ears, Nose, Mouth, and Throat: Denies epistaxis, Denies facial pain, Denies lip swelling, Reports nasal congestion, Reports nasal discharge and Denies throat swelling *Cardiovascular Cardiovascular: Reports dyspnea, Reports dyspnea on exertion and Reports orthopnea *Respiratory Respiratory: Denies change in phlegm color, Reports chest congestion, Reports cough, Reports dyspnea, Reports dyspnea on exertion, Reports excessive phlegm production and Reports wheezing *Gastrointestinal Gastrointestinal: Denies abdominal pain, Denies belching and Denies cramping *Musculoskeletal Musculoskeletal: Reports back pain and Denies myalgias *Neurologic Neurologic: Reports system reviewed and no additional complaints, except as documented Psychiatric Psychiatric: Denies homicidal ideation and Denies suicidal ideation Endocrine Endocrine: Reports fatigue and Denies heat intolerance Hematologic/Lymphatic Hematologic/Lymphatic: Denies easy bleeding and Denies lymphadenopathy Allergic/Immunologic Allergic/Immunologic: Denies itchy eyes, Denies lip swelling, Denies throat swelling and Reports wheezing Pulmonology Exam Inpatient Vital signs and Labs for Last 24 Hours: Temp Pulse Resp BP Pulse Ox O2 Del Method O2 Flow Rate 98.5 F 84 21 151/93 H 94 L Nasal Cannula 2 09/15/24 08:00 09/15/24 09:11 09/15/24 08:00 09/15/24 08:00 09/15/24 09:12 09/15/24 09:12 09/15/24 09:12 Laboratory Results - last 24 hr 09/15/24 06:13: WBC 2.8 L D, RBC 3.79 L, Hgb 11.5 L, Hct 34.8 L, MCV 92.0, MCH 30.3, MCHC 33.0, RDW 13.9, Plt Count 280, MPV 7.3 L, Neut % (Auto) 75.4, Lymph % (Auto) 21.0, [place] % (Auto) 3.2, Eos % (Auto) 0.2, Baso % (Auto) 0.1, Neut # (Auto) 2.2, Lymph # (Auto) 0.6 L, [place] # (Auto) 0.1, Eos # (Auto) 0.0, Baso # (Auto) 0.0, Sodium 135 L, Potassium 4.2, Chloride 93 L, Carbon Dioxide 33 H, Anion Gap 13.2, BUN 8 L, Creatinine 0.60 L, Estimated Creat Clear 55, Estimated GFR 134, Est GFR ( Amer) 163, Glucose 153 H, Calcium 6.1 L, Magnesium 1.7, Total Bilirubin 0.6, AST 28, ALT 15, Alkaline Phosphatase 76, Total Protein 7.3, Albumin 4.3, Globulin 3.0, Albumin/Globulin Ratio 1.4 I & O for Labs for Last 24 Hours: Intake & Output 09/12/24 09/13/24 09/14/24 09/15/24 23:59 23:59 23:59 23:59 Intake Total 260 / 260 Output Total 0 / 0 0 / 0 Balance 0 10 260 / 260 Weight 119 lb 3.2 oz 119 lb 3.192 oz Microbiology Reports for the Last 24 Hours: Microbiology 08/04/24 05:27 Blood Blood Culture - Preliminary NO GROWTH AFTER 24 HOURS 08/04/24 05:27 Blood Blood Culture - Preliminary NO GROWTH AFTER 24 HOURS Constitutional: Present mild distress Head: Present normocephalic and atraumatic ENT: Present normal exam, normal oropharynx and mucous membranes moist Neck: Present normal inspection and full ROM Respiratory: Present respiratory distress, rhonchi, wheezes and able to speak in complete sentences Cardiac: Present S1/S2, Tachycardia and radial pulses present GI: Present soft and distention; Absent tenderness or guarding Skin: Present intact; Absent cyanosis or jaundice Neuro: Present alert, awake and oriented x 3 Extremities: Present normal inspection; Absent clubbing or cyanosis Psychiatric: Present normal affect and cooperative Meds Home Medications and Allergies Home Medications ?Medication ?Instructions ?Recorded ?Confirmed ?Type trazodone 150 mg tablet 150 mg PO HS 07/03/22 09/14/24 History fluticasone fur. 100 mcg-umeclid 1 inh inhalation DAILY 01/05/23 09/14/24 History 62.5 mcg-vilant 25 mcg inhalat.powder (Trelegy Ellipta) aspirin 325 mg tablet 325 mg PO DAILY 05/11/23 09/14/24 History albuterol sulfate 90 mcg/actuation 2 puff inhalation QIDP PRN 06/11/24 09/14/24 History aerosol inhaler Shortness Of Breath Or Wheezing ipratropium 0.5 mg-albuterol 3 mg 3 ml inhalation QIDP PRN Shortness 06/12/24 09/14/24 Rx (2.5 mg base)/3 mL nebulization Of Breath Or Wheezing 30 days #180 soln mL azelastine 137 mcg (0.1 %) nasal 2 spray intranasal BID 07/31/24 09/14/24 History spray ergocalciferol (vitamin D2) 1,250 50,000 unit PO WEEKLY 30 days #4 08/05/24 09/14/24 Rx mcg (50,000 unit) capsule caps nicotine 14 mg/24 hr daily 1 patch transdermal DAILY 28 days 08/05/24 09/14/24 Rx transdermal patch #28 ea nicotine (polacrilex) 4 mg buccal 4 mg buccal Q6H PRN nicotine 08/23/24 09/14/24 Rx lozenge cravings #72 ea propranolol 20 mg tablet 20 mg PO BID 08/23/24 09/14/24 History levofloxacin 750 mg tablet 750 mg PO DAILY 7 days #7 tabs 09/14/24 09/14/24 Rx prednisone 20 mg tablet 40 mg (2 x 20 mg) PO DAILY 4 days 09/14/24 09/15/24 Rx #8 tabs New Prescriptions to Start Prescriptions: Allergies Allergy/AdvReac Type Severity Reaction Status Date / Time silver Allergy Severe Rash Verified 08/25/24 10:33 [From Tegaderm AG Mesh] doxycycline Allergy Mild Verified 08/25/24 10:33 Penicillins [PENICILLINS] Allergy Mild Verified 08/25/24 10:33 amitriptyline AdvReac Intermediate gi upset Verified 08/25/24 10:33 adhesive AdvReac Verified 08/25/24 10:33 hydrocodone AdvReac Verified 08/25/24 10:33 Results Laboratory Findings 09/16/24 09:04 09/16/24 09:04 Abnormal lab findings: Abnormal Labs 09/15/24 06:13 WBC 2.8 L D RBC 3.79 L Hgb 11.5 L Hct 34.8 L MPV 7.3 L Lymph # (Auto) 0.6 L Sodium 135 L Chloride 93 L Carbon Dioxide 33 H BUN 8 L Creatinine 0.60 L Glucose 153 H Calcium 6.1 L Assessment and Plan *Assessment and plan (1) Acute exacerbation of chronic obstructive pulmonary disease: Status: Acute Category: Medical Code(s): J44.1 - Chronic obstructive pulmonary disease with (acute) exacerbation Plan Mr. Simmons is a 69-year-old male COPD triple inhaler therapy and azithromycin presented to ER with worsening respiratory distress and was admitted for management for COPD exacerbation. Patient admits relatively sudden onset symptoms. Admits to using nebulization therapies with no significant improvement in symptoms. Difficulty breathing wheezing and chest tightness. Patient also admits not using his Trelegy inhaler a week prior to admission secondary to insurance complaints issues. H/O SCC peviously on nivolumab, held as concerning for frequent COPD exacerbations. Greater than 3 exacerbations in the last 6 months. Venous blood gas upon admission, chronic hypercarbic respiratory failure. Chest x-ray upon admission stable from prior. No new consolidative or infiltrative changes noted. Hyperinflation noted as prior. Afebrile. Hemodynamically stable. Leukopenia. Plan initial examination patient does not appear to be in any severe respiratory distress. Mild expiratory wheezing noted. On baseline nasal cannula oxygen supplementation. Mild wheezing noted on auscultation. Continue to see nebulization therapies and steroids. Plan: Continue current nebulization therapies along with steroids. No need for antibiotics at this point of time. Continue oxygen supplementation to maintain O2 saturation of 90% and above. On 2 L.
[2024-09-15] MEDS: FLUTICASONE/UMECLIDIN/VILANTER 100/62.5/25MCG INHALER 1 PUFF IH (11:09)
[2024-09-15 11:47] LABS: HIV (1&2) Antibody Rapid NONREACTIVE (NONREACTIVE)
[2024-09-15] MEDS: ACETAMINOPHEN 325MG TAB 650 MG PO (13:37)
--- NOTE | 2024-09-15 16:18 | EXP.ACUTE.PN ---
Subjective *Date: 09/15/24 *Time: 19:35 Interval history: Breathing comfortably today. Denies any chest pain. Tolerating 4 L oxygen. No nausea or vomiting. Afebrile Medical Exam Vital signs and Labs for Last 24 Hours: Vital Signs Temp Pulse Pulse Resp BP BP Pulse Ox 09/15/24 15:43 84 09/15/24 15:43 86 09/15/24 15:43 97 09/15/24 15:00 09/15/24 13:00 09/15/24 12:00 90 09/15/24 11:28 98.1 F 81 19 130/74 98 09/15/24 11:00 09/15/24 09:12 94 L 09/15/24 09:11 84 09/15/24 09:11 82 09/15/24 09:11 99 09/15/24 09:00 09/15/24 08:00 100 H 09/15/24 08:00 09/15/24 08:00 98.5 F 97 H 21 151/93 H 99 09/15/24 06:41 09/15/24 05:56 92 H 09/15/24 05:56 87 09/15/24 05:56 92 L 09/15/24 05:00 09/15/24 04:00 98.0 F 69 16 144/93 H 100 09/15/24 04:00 90 09/15/24 02:53 09/15/24 02:15 69 09/15/24 02:15 71 09/15/24 00:59 09/15/24 00:00 90 09/15/24 00:00 97.8 F 90 18 137/86 100 09/14/24 23:41 99 H 09/14/24 23:41 97 H 09/14/24 23:00 09/14/24 22:36 09/14/24 21:34 98 H 09/14/24 21:34 98 H 09/14/24 21:30 09/14/24 21:27 97.9 F 99 H 20 182/99 H 09/14/24 21:19 97.8 F 93 H 20 155/94 H 99 09/14/24 21:00 110 H 09/14/24 20:15 98 H 200/111 H 100 09/14/24 18:51 97.9 F 99 H 20 192/112 H 99 O2 Del Method O2 Flow Rate 09/15/24 15:43 09/15/24 15:43 09/15/24 15:43 Nasal Cannula 3 09/15/24 15:00 Nasal Cannula 3 09/15/24 13:00 Nasal Cannula 3 09/15/24 12:00 09/15/24 11:28 Nasal Cannula 2 09/15/24 11:00 Nasal Cannula 3 09/15/24 09:12 Nasal Cannula 2 09/15/24 09:11 09/15/24 09:11 09/15/24 09:11 Nasal Cannula 4 09/15/24 09:00 Nasal Cannula 3 09/15/24 08:00 09/15/24 08:00 Nasal Cannula 4 09/15/24 08:00 Nasal Cannula 4 09/15/24 06:41 Nasal Cannula 3 09/15/24 05:56 09/15/24 05:56 09/15/24 05:56 Nasal Cannula 3 09/15/24 05:00 Nasal Cannula 3 09/15/24 04:00 Nasal Cannula 3 09/15/24 04:00 09/15/24 02:53 Nasal Cannula 3 09/15/24 02:15 09/15/24 02:15 09/15/24 00:59 Nasal Cannula 3 09/15/24 00:00 09/15/24 00:00 Nasal Cannula 3 09/14/24 23:41 09/14/24 23:41 09/14/24 23:00 Nasal Cannula 4 09/14/24 22:36 Nasal Cannula 4 09/14/24 21:34 09/14/24 21:34 09/14/24 21:30 Nasal Cannula 4 09/14/24 21:27 Nasal Cannula 4 09/14/24 21:19 Nasal Cannula 4 09/14/24 21:00 09/14/24 20:15 09/14/24 18:51 Nasal Cannula Intake and Output 09/15/24 09/15/24 09/15/24 07:59 15:59 23:59 Intake Total 410 / 420 Output Total 0 / 0 0 / 0 Balance 410 / 420 Intake: Intake, Oral Amount 410 / 410 Intake, Other Amount 10 10 Output: Output, Urine Amount 0 / 0 0 / 0 Other: Intake, Other Source Saline Solution Number of Unmeasured Voids 1 2 Number of Bowel Movements 1 Weight 54.068 kg Patient Weight 09/15/24 23:59 Weight 54.068 kg Laboratory Results - last 24 hr 09/15/24 06:13: WBC 2.8 L D, RBC 3.79 L, Hgb 11.5 L, Hct 34.8 L, MCV 92.0, MCH 30.3, MCHC 33.0, RDW 13.9, Plt Count 280, MPV 7.3 L, Neut % (Auto) 75.4, Lymph % (Auto) 21.0, [place] % (Auto) 3.2, Eos % (Auto) 0.2, Baso % (Auto) 0.1, Neut # (Auto) 2.2, Lymph # (Auto) 0.6 L, [place] # (Auto) 0.1, Eos # (Auto) 0.0, Baso # (Auto) 0.0, Sodium 135 L, Potassium 4.2, Chloride 93 L, Carbon Dioxide 33 H, Anion Gap 13.2, BUN 8 L, Creatinine 0.60 L, Estimated Creat Clear 55, Estimated GFR 134, Est GFR ( Amer) 163, Glucose 153 H, Calcium 6.1 L, Magnesium 1.7, Total Bilirubin 0.6, AST 28, ALT 15, Alkaline Phosphatase 76, Total Protein 7.3, Albumin 4.3, Globulin 3.0, Albumin/Globulin Ratio 1.4, HIV 1&2 Antibody Rapid Nonreactive 09/15/24 08:52: Chlamy pneumoniae PCR Not detected, Adenovirus (PCR) Not detected, B. pertussis DNA (PCR) Not detected, Coronavirus OC43 (PCR) Not detected, Coronavirus HKU1 (PCR) Not detected, Coronavirus 229E (PCR) Not detected, SARS-CoV-2 (PCR) Not detected, Coronavirus NL63 (PCR) Not detected, Human Metapneumovir PCR Not detected, Influenza A (H1) PCR Not detected, Influ A (H1N1/09) PCR Not detected, Influenza A (H3) PCR Not detected, Influenza Type A (PCR) Not detected, Influenza Type B (PCR) Not detected, M. pneumoniae (PCR) Not detected, Parainfluenza 1 (PCR) Not detected, Parainfluenza 2 (PCR) Not detected, Parainfluenza 3 (PCR) Not detected, Parainfluenza 4 (PCR) Not detected, RSV (PCR) Not detected, Entero/Rhino (PCR) Not detected I & O for Labs for Last 24 Hours: Intake & Output 09/12/24 09/13/24 09/14/24 09/15/24 23:59 23:59 23:59 23:59 Intake Total 420 / 420 Output Total 0 / 0 0 / 0 Balance 0 / 10 420 / 420 Weight 54.068 kg 54.068 kg Constitutional: Present no acute distress, thin, chronically ill appearing and cooperative Head: Present atraumatic and normocephalic ENT: Present normal exam Respiratory: Present prolonged expiratory phase and wheezes; Absent rhonchi or crackles Comment:: Poor air movement Cardiac: Present Reg Rate and Rhythm GI: Present normal bowel sounds; Absent tenderness Extremities: Present normal inspection and full ROM Skin: Present intact; Absent erythema Neuro: Present Grossly Intact, alert, awake, oriented x 3 and moves all extremities Assessment and Plan *Assessment and plan (1) Acute on chronic respiratory failure with hypoxia and hypercapnia: Status: Acute Category: Medical Code(s): J96.21 - Acute and chronic respiratory failure with hypoxia; J96.22 - Acute and chronic respiratory failure with hypercapnia (2) Acute exacerbation of chronic obstructive pulmonary disease: Status: Acute Category: Medical Code(s): J44.1 - Chronic obstructive pulmonary disease with (acute) exacerbation (3) Shortness of breath: Status: Acute Category: Medical Code(s): R06.02 - Shortness of breath (4) On home oxygen therapy: Status: Acute Category: Medical Code(s): Z99.81 - Dependence on supplemental oxygen (5) Tobacco dependence: Status: Acute Category: Medical Code(s): F17.200 - Nicotine dependence, unspecified, uncomplicated (6) Small cell lung cancer: Status: Chronic Category: Medical Code(s): C34.90 - Malignant neoplasm of unspecified part of unspecified bronchus or lung Plan 69-year-old male with history of lung cancer, severe COPD, presents with worsening shortness over the past 24 hours. Admitted for management of COPD exacerbation. Pulmonology consulted and assisting with care. Will monitor till tomorrow, anticipate discharge in the next 24 hours. Continue aggressive inhaler treatment, pulmonary toilet, monitoring for stability in his respiratory status. Problems addressed as follows: Acute on chronic hypoxic respiratory failure with hypercapnia due to COPD exacerbation Anxiety - DuoNebs every 4 hours, Pulmicort twice daily. - Continue methylprednisolone 80 mg IV every 8 hours. will wean to prednisone at time of discharge - Holding on antibiotics at this time. Due to anxiety component, initiate Xanax 0.25 mg every 8 hours as needed - Resume Trelegy daily -Respiratory panel negative for all pathogens - White count low at 2.8. Hemoglobin 11.5. Kidney function normal with BUN 8, creatinine 0.6. Calcium low at 6.1. Magnesium 1.7. Administered 2 g magnesium IV and 2 g calcium gluconate IV. Repeat CBC, CMP, magnesium ordered for the morning. Tobacco use disorder: Counseled on need to stop smoking. Seriously complicates patient's respiratory disease. Nicotine patch as needed daily during admission. 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 Protein supplementation with meals DNI Regular diet Prophylactic Lovenox
--- NOTE | 2024-09-15 18:19 | PC.NURSE ---
NO ACUTE CHANGES SINCE PREVIOUS ASSESSMENT. CONTINUES ON 2LNC FOR O2 SUPPORT. NO COMPLAINTS THIS SHIFT.
[2024-09-15] MEDS: PANTOPRAZOLE 40MG TABLET 40 MG PO (20:26)
[2024-09-15] MEDS: TRAZODONE 50MG TABLET 150 MG PO (20:26)
[2024-09-15] MEDS: ASPIRIN 325MG TABLET 325 MG PO (22:04)
[2024-09-16] VITALS (7 sets, daily range): BP systolic 118–146; BP diastolic 46–86; PULSE 73–86; RESP 16–22; TEMP 36.4–36.7; O2SAT 98–100; BMI 16.9
[2024-09-16] MEDS: IPRATROPIUM/ALBUTEROL 3 ML NEB IH ×3 (01:27→09:35)
[2024-09-16] MEDS: SODIUM CHLORIDE 3% 15ML NEB 3 ML IH (01:29)
[2024-09-16] MEDS: METHYLPREDNISOLONE SOD SUCC 125MG VIAL 80 MG IV (05:00)
[2024-09-16 05:12] LABS: HCV Ab Non Reactive (Non Reactive)
--- NOTE | 2024-09-16 06:21 | PC.NURSE ---
06:21 Pt. alert and orientated x 4. Pt. on 2 liters of O2 per NC. Pt. feeling better. Pt. not sleeping well overnight. continues with resp breathing treatments. vitals stable.
[2024-09-16] MEDS: FLUTICASONE/UMECLIDIN/VILANTER 100/62.5/25MCG INHALER 1 PUFF IH (06:35)
[2024-09-16] MEDS: BUDESONIDE 0.5MG/2ML NEB 0.5 MG IH (06:35)
--- NOTE | 2024-09-16 07:52 | EXP.DC.SUM ---
General Admission date:: 09/14/24 Discharge date: 09/16/24 HPI HPI HPI: Patient is a long-term smoker, usually O2 dependent at home, has not been able to stop smoking comes in the emergency room several times for the same problem.. Patient was evaluated treated nebulizers given a steroid went home was not able to tolerate it and came back to the emergency room. ER doctor consulted with me that I did come down to see the patient. The patient expressed severe distress not being able to go home lung sounds extensively wheezing. Oxygen saturation above 90 with slightly elevated tachycardia. I do agree with the ER physician patient has come back twice very uncomfortable question whether some other increasing underlying problem or whether he is just starting to decompensate.. Noting that the weather has been quite windy a lot of dust in the air for this time of year, so I do agree with the ER physician patient is not can be able to tolerate being released to home so we will place him on the floor increased breathing treatments [id number] will give extra steroids going to give a small touch of Xanax to try to calm him down continue his trazodone. Teaching has been done with the patient patient at first did not want to be intubated then later on said he would want everything done so the patient will be a full code. He understands if he was to decompensate I placed him on a ventilator there is a potential that he would not be able to be easily weaned. Patient since about 2020 has been treated for small cell cancer within the lesion noted in the liver at 1 time. Patient has been seeing Dr. De Leon and per his notes lesions in the lungs appear to be unchanged with no signs of metastasis to the rest of the body., Was noted that the cancer chemotherapy had to be held due to increased COPD exacerbations earlier this year. Patient continues to smoke Hospital Course Hospital Course Hospital Course: 69-year-old male with history of lung cancer, severe COPD, presents with worsening shortness over the past 24 hours. Admitted for management of COPD exacerbation. Pulmonology consulted and assisting with care. Monitored overnight. Did well. Able to wean to 2 L oxygen. Continue treatment for COPD exacerbation with steroids and aggressive pulmonary toilet. Problems addressed as follows: Acute on chronic hypoxic respiratory failure with hypercapnia due to COPD exacerbation Anxiety -Admitted for concern for respiratory distress. Initially on 4 L. Able to wean to 2 L with DuoNebs and treatment with steroids. Comprehensive respiratory panel obtained that was negative for all pathogens. Pulmonology was consulted, recommended continuing steroids and holding on antibiotics at this time. Continue DuoNebs at home every 4-6 hours. Continue prednisone 40 mg daily for 5 days. Concern for anxiety, this underlies his sensation of shortness of breath and likely complicates his exacerbations. Recommend palliative management with Xanax. Prescribed short course. Encourage patient to have further discussion with his PCP about continuing this regimen. Continue Xanax 0.25 mg as needed every 8 hours, only needed at most once daily. Resume Trelegy inhaler. Labs relatively normal during admission with normal kidney function and white count. Persistent hypocalcemia. Replaced with calcium gluconate during admission. Tobacco use disorder: Counseled on need to stop smoking. Seriously complicates patient's respiratory disease. Nicotine patch as needed daily during admission. 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 Protein supplementation with meals Stable discharge home. Follow-up with pulmonology as an outpatient. Tolerating 2 L at time of discharge Exam Data for Last 24 hours Vital signs and Labs for Last 24 Hours: Temp Pulse Resp BP Pulse Ox O2 Del Method O2 Flow Rate 97.8 F 78 18 118/46 L 100 Nasal Cannula 2 09/16/24 04:00 09/16/24 06:37 09/16/24 04:00 09/16/24 04:00 09/16/24 06:37 09/16/24 07:00 09/16/24 07:00 Laboratory Results - last 24 hr 09/15/24 06:13: HIV 1&2 Antibody Rapid Nonreactive 09/15/24 08:39: Hepatitis C Antibody Non reactive 09/15/24 08:52: Chlamy pneumoniae PCR Not detected, Adenovirus (PCR) Not detected, B. pertussis DNA (PCR) Not detected, Coronavirus OC43 (PCR) Not detected, Coronavirus HKU1 (PCR) Not detected, Coronavirus 229E (PCR) Not detected, SARS-CoV-2 (PCR) Not detected, Coronavirus NL63 (PCR) Not detected, Human Metapneumovir PCR Not detected, Influenza A (H1) PCR Not detected, Influ A (H1N1/09) PCR Not detected, Influenza A (H3) PCR Not detected, Influenza Type A (PCR) Not detected, Influenza Type B (PCR) Not detected, M. pneumoniae (PCR) Not detected, Parainfluenza 1 (PCR) Not detected, Parainfluenza 2 (PCR) Not detected, Parainfluenza 3 (PCR) Not detected, Parainfluenza 4 (PCR) Not detected, RSV (PCR) Not detected, Entero/Rhino (PCR) Not detected I & O for Last 24 hours: Intake & Output 09/13/24 09/14/24 09/15/24 09/16/24 23:59 23:59 23:59 23:59 Intake Total 800 / 1040 240 / 240 Output Total 0 / 0 0 / 0 0 / 0 Balance 0 / 10 800 / 1040 240 / 240 Weight 54.068 kg 54.068 kg 53.524 kg Microbiology Reports for the Last 24 Hours: Microbiology 09/16/24 01:32 Sputum - Expectorated Sputum Gram Stain - Preliminary Constitutional Constitutional: no acute distress, cachectic, chronically ill appearing and cooperative *Routine HEENT Exam Head: Present normocephalic Eye: Present EOMI and PERRL ENT: Present mucous membranes moist *Routine Neck Exam Neck: Present supple; Absent lymphadenopathy *Routine Respiratory Exam Respiratory: Present prolonged expiratory phase, wheezes and diminished air movement; Absent rhonchi or crackles *Routine Cardiovascular Exam Cardiovascular: Present RRR *Routine Abdominal Exam Abdominal: Present soft and normoactive bowel sounds; Absent tenderness *Routine Rectal Exam Patient deferred: visual exam *Routine Exam Patient deferred: penile exam *Routine Extremities Exam Extremities: Absent cyanosis, clubbing or edema *Routine Skin Exam Skin: Present warm; Absent rash *Routine Neurological Exam Neurological: Present alert, oriented X3 and moving all extremities; Absent altered mental status Results Data Completed and Pending Labs on day of discharge: Labs from last 24 hours 09/15/24 09/15/24 09/15/24 08:52 08:39 06:13 Chlamy pneumoniae PCR Not detected Adenovirus (PCR) Not detected B. pertussis DNA (PCR) Not detected Coronavirus OC43 (PCR) Not detected Coronavirus HKU1 (PCR) Not detected Coronavirus 229E (PCR) Not detected SARS-CoV-2 (PCR) Not detected Coronavirus NL63 (PCR) Not detected Hepatitis C Antibody Non reactive HIV 1&2 Antibody Rapid Nonreactive Human Metapneumovir PCR Not detected Influenza A (H1) PCR Not detected Influ A (H1N1/09) PCR Not detected Influenza A (H3) PCR Not detected Influenza Type A (PCR) Not detected Influenza Type B (PCR) Not detected M. pneumoniae (PCR) Not detected Parainfluenza 1 (PCR) Not detected Parainfluenza 2 (PCR) Not detected Parainfluenza 3 (PCR) Not detected Parainfluenza 4 (PCR) Not detected RSV (PCR) Not detected Entero/Rhino (PCR) Not detected Preliminary micro results at discharge 09/16/24 01:32 Gram Stain - Preliminary Sputum - Expectorated Sputum DS: Diagnosis Discharge Diagnosis (1) Acute on chronic respiratory failure with hypoxia and hypercapnia: Status: Acute Code(s): J96.21 - Acute and chronic respiratory failure with hypoxia; J96.22 - Acute and chronic respiratory failure with hypercapnia (2) Acute exacerbation of chronic obstructive pulmonary disease: Status: Acute Code(s): J44.1 - Chronic obstructive pulmonary disease with (acute) exacerbation (3) Shortness of breath: Status: Acute Code(s): R06.02 - Shortness of breath (4) On home oxygen therapy: Status: Acute Code(s): Z99.81 - Dependence on supplemental oxygen (5) Tobacco dependence: Status: Acute Code(s): F17.200 - Nicotine dependence, unspecified, uncomplicated (6) Small cell lung cancer: Status: Chronic Code(s): C34.90 - Malignant neoplasm of unspecified part of unspecified bronchus or lung (7) Cachexia: Status: Acute Code(s): R64 - Cachexia Meds Home Medications and Allergies Home Medications ?Medication ?Instructions ?Recorded ?Confirmed ?Type trazodone 150 mg tablet 150 mg PO HS 07/03/22 09/14/24 History aspirin 325 mg tablet 325 mg PO DAILY 05/11/23 09/14/24 History azelastine 137 mcg (0.1 %) nasal 2 spray intranasal BID 07/31/24 09/14/24 History spray ergocalciferol (vitamin D2) 1,250 50,000 unit PO WEEKLY 30 days #4 08/05/24 09/14/24 Rx mcg (50,000 unit) capsule caps nicotine 14 mg/24 hr daily 1 patch transdermal DAILY 28 days 08/05/24 09/14/24 Rx transdermal patch #28 ea nicotine (polacrilex) 4 mg buccal 4 mg buccal Q6H PRN nicotine 08/23/24 09/14/24 Rx lozenge cravings #72 ea propranolol 20 mg tablet 20 mg PO BID 08/23/24 09/14/24 History levofloxacin 750 mg tablet 750 mg PO DAILY 7 days #7 tabs 09/14/24 09/14/24 Rx prednisone 20 mg tablet 40 mg (2 x 20 mg) PO DAILY 4 days 09/14/24 09/15/24 Rx #8 tabs albuterol sulfate 90 mcg/actuation 2 inh inhalation QID PRN shortness 09/16/24 Rx aerosol inhaler of breath or wheezing 90 days #8.5 grams alprazolam 0.25 mg tablet 0.25 mg PO Q8HP PRN Anxiety 3 days 09/16/24 Rx #9 tabs fluticasone fur. 100 mcg-umeclid 1 inh inhalation DAILY 90 days 09/16/24 Rx 62.5 mcg-vilant 25 mcg #180 ea inhalat.powder (Trelegy Ellipta) ipratropium 0.5 mg-albuterol 3 mg 3 ml inhalation QIDP PRN Shortness 09/16/24 Rx (2.5 mg base)/3 mL nebulization Of Breath Or Wheezing 90 days #180 soln mL prednisone 20 mg tablet 40 mg (2 x 20 mg) PO DAILY 5 days 09/16/24 Rx #10 tabs New Prescriptions to Start Prescriptions: alprazolam Nicolas Tomas prednisone Nicolas Tomas Allergies Allergy/AdvReac Type Severity Reaction Status Date / Time silver Allergy Severe Rash Verified 08/25/24 10:33 [From Tegaderm AG Mesh] doxycycline Allergy Mild Verified 08/25/24 10:33 Penicillins [PENICILLINS] Allergy Mild Verified 08/25/24 10:33 amitriptyline AdvReac Intermediate gi upset Verified 08/25/24 10:33 adhesive AdvReac Verified 08/25/24 10:33 hydrocodone AdvReac Verified 08/25/24 10:33 Discharge Plan Disposition Patient Disposition: Home, Self-Care Condition: Fair Follow up Plan Follow up with: Napoleon Webber MD [Physician] - 09/22/24 1:00 pm Main Carrington MD [Primary Care Provider] - 09/26/24 11:00 am Prescriptions/Medication Reconciliation: New alprazolam 0.25 mg Tablet 0.25 mg PO Q8HP PRN (Reason: Anxiety) 3 Days Qty: 9 0RF prednisone 20 mg Tablet 40 mg PO DAILY 5 Days Qty: 10 0RF Continued trazodone 150 mg tablet 150 mg PO HS propranolol 20 mg tablet 20 mg PO BID nicotine (polacrilex) 4 mg lozenge 4 mg buccal Q6H PRN (Reason: nicotine cravings) Qty: 72 0RF ergocalciferol (vitamin D2) 1,250 mcg (50,000 unit) Capsule 50,000 unit PO WEEKLY 30 Days Qty: 4 2RF nicotine 14 mg/24 hr patch 24 hour 1 patch transdermal DAILY 28 Days Qty: 28 2RF levofloxacin 750 mg tablet 750 mg PO DAILY 7 Days Qty: 7 0RF prednisone 20 mg tablet 40 mg PO DAILY 4 Days Qty: 8 0RF Rx Instructions: You were given your first dose today 09/14/2024, so please start this tomorrow 09/15/2024 aspirin 325 mg Tablet 325 mg PO DAILY azelastine 137 mcg (0.1 %) spray,non-aerosol 2 spray intranasal BID Patient Comments: USE 2 SPRAYS IN EACH NOSTRIL TWICE DAILY No Action Trelegy Ellipta 100-62.5-25 mcg blister with device 1 inh inhalation DAILY 90 Days Qty: 180 3RF albuterol sulfate 90 mcg/actuation HFA aerosol inhaler 2 inh IH QID PRN (Reason: shortness of breath or wheezing) 90 Days Qty: 8.5 2RF ipratropium-albuterol 0.5 mg-3 mg(2.5 mg base)/3 mL solution for nebulization 3 ml INHALATION QIDP PRN (Reason: Shortness Of Breath Or Wheezing) 90 Days Qty: 180 3RF Problem Reconciliation Problems Reviewed?: Yes Patient Discharge Instructions ACTIVITY: Continue current activity DIET: continue same diet Patient Instructions: DI for Chronic Obstructive Pulmonary Disease Print Language: [place] Providers Primary Care Provider: Main Carrington Admit Provider: Nicolas Tomas Attending Provider: Nicolas Tomas
[2024-09-16] MEDS: PROPRANOLOL 20MG TAB 20 MG PO (08:03)
[2024-09-16] MEDS: ENOXAPARIN 40MG/0.4ML SYRINGE 40 MG SUBCUT (08:03)
[2024-09-16] MEDS: NICOTINE 14MG/24HRS PATCH 14 MG TD (08:03)
[2024-09-16 09:16] LABS: Basophils % 0.1 % (0.1-2.0); Eosinophils % 0.7 % (0.1-12.0); Hematocrit 29.8 % (42.0-52.0); Hemoglobin 10.1 g/dL (14.1-18.0); Lymphocytes # 0.4 K/mm3 (0.7-4.5); Lymphocytes % 5.9 % (10-50); Mean Corpuscular HGB Conc 33.8 g/dL (31.8-35.4); Mean Corpuscular Hemoglobin 31.1 pg (27.0-31.2); Mean Corpuscular Volume 91.9 fl (80-94); Mean Platelet Volume 7.5 fl (7.4-10.4); Monocytes # 0.2 K/mm3 (0.1-1.0); Monocytes % 2.7 % (1.7-9.3); Neutrophils # 5.3 K/mm3 (1.8-7.8); Neutrophils % 90.7 % (37.0-80.0); Platelet Count 253 K/mm3 (142-424); Red Blood Count 3.24 M/mm3 (4.60-6.20); Red Cell Distribution Width 13.9 % (11.5-17.5); White Blood Count 5.9 K/mm3 (4.8-10.8)
[2024-09-16 09:18] LABS: MANUAL DIFFERENTIAL MANUAL DIFFERENTIAL (MANUAL DIFF)
[2024-09-16 09:33] LABS: Alanine Aminotransferase 16 U/L (12-78); Albumin Level 3.6 g/dl (3.5-5.0); Albumin/Globulin Ratio 1.4 (1.1-1.8); Alkaline Phosphatase 48 U/L (38-126); Anion Gap 10.8 mEq/L (5-15); Aspartate Amino Transferase 24 U/L (17-59); Bilirubin,Total 0.5 mg/dl (0.2-1.3); Blood Urea Nitrogen 13 mg/dl (9-20); Calcium 6.3 mg/dl (8.4-10.2); Carbon Dioxide 33 mmol/L (22.0-30.0); Chloride 95 mmol/L (98-107); Creatinine Clearance Estimated 54 mL/min (50-200); Estimated Glomerular Filt Rate 112 ml/min (>60); GFR (African American) 136 ML/MIN (>60); Globulin 2.5 g/dL (1.3-3.2); Glucose 190 mg/dl (74-100); Magnesium 1.7 mg/dl (1.6-2.3); Potassium 3.8 mmoL/L (3.5-5.1); Sodium 135 mmol/L (136-145); Total Protein,Serum 6.1 g/dl (6.3-8.2)
[2024-09-16 09:46] LABS: Lymphocytes % 9 % (10-50); Monocytes % 2 % (2-9); Neutrophils % 89 % (42-76); Platelet Estimate Normal; RBC Morphology Normal; Total Cells Counted 100
--- NOTE | 2024-09-16 11:08 | P.PN_ITS ---
Subjective *Date: 09/16/24 *Time: 11:08 Interval history: No acute respiratory vents overnight. Patient admits continued improvement in his respiratory symptoms. Pulmonology Exam Inpatient Vital signs and Labs for Last 24 Hours: Temp Pulse Resp BP Pulse Ox O2 Del Method O2 Flow Rate 98.1 F 86 18 126/86 98 Nasal Cannula 2 09/16/24 08:00 09/16/24 09:36 09/16/24 08:00 09/16/24 08:00 09/16/24 09:36 09/16/24 09:42 09/16/24 09:42 Laboratory Results - last 24 hr 09/15/24 06:13: HIV 1&2 Antibody Rapid Nonreactive 09/15/24 08:39: Hepatitis C Antibody Non reactive 09/16/24 09:04: WBC 5.9 D, RBC 3.24 L, Hgb 10.1 L, Hct 29.8 L, MCV 91.9, MCH 31.1, MCHC 33.8, RDW 13.9, Plt Count 253, MPV 7.5, Neut % (Auto) 90.7 H, Lymph % (Auto) 5.9 L, [place] % (Auto) 2.7, Eos % (Auto) 0.7, Baso % (Auto) 0.1, Neut # (Auto) 5.3, Lymph # (Auto) 0.4 L, [place] # (Auto) 0.2, Eos # (Auto) 0.0, Baso # (Auto) 0.0, Total Counted 100, Neutrophils % (Manual) 89 H, Lymphocytes % (Manual) 9 L, Monocytes % (Manual) 2, Platelet Estimate Normal, RBC Morphology Normal, Sodium 135 L, Potassium 3.8, Chloride 95 L, Carbon Dioxide 33 H, Anion Gap 10.8, BUN 13 D, Creatinine 0.70, Estimated Creat Clear 54, Estimated GFR 11 2, Est GFR ( Amer) 136, Glucose 190 H, Calcium 6.3 L, Magnesium 1.7, Total Bilirubin 0.5, AST 24, ALT 16, Alkaline Phosphatase 48, Total Protein 6.1 L, Albumin 3.6 D, Globulin 2.5, Albumin/Globulin Ratio 1.4 Temp Pulse Resp BP Pulse Ox O2 Del Method O2 Flow Rate 98.5 F 84 21 151/93 H 94 L Nasal Cannula 2 09/15/24 08:00 09/15/24 09:11 09/15/24 08:00 09/15/24 08:00 09/15/24 09:12 09/15/24 09:12 09/15/24 09:12 Laboratory Results - last 24 hr 09/15/24 06:13: WBC 2.8 L D, RBC 3.79 L, Hgb 11.5 L, Hct 34.8 L, MCV 92.0, MCH 30.3, MCHC 33.0, RDW 13.9, Plt Count 280, MPV 7.3 L, Neut % (Auto) 75.4, Lymph % (Auto) 21.0, [place] % (Auto) 3.2, Eos % (Auto) 0.2, Baso % (Auto) 0.1, Neut # (Auto) 2.2, Lymph # (Auto) 0.6 L, [place] # (Auto) 0.1, Eos # (Auto) 0.0, Baso # (Auto) 0.0, Sodium 135 L, Potassium 4.2, Chloride 93 L, Carbon Dioxide 33 H, Anion Gap 13.2, BUN 8 L, Creatinine 0.60 L, Estimated Creat Clear 55, Estimated GFR 134, Est GFR ( Amer) 163, Glucose 153 H, Calcium 6.1 L, Magnesium 1.7, Total Bilirubin 0.6, AST 28, ALT 15, Alkaline Phosphatase 76, Total Protein 7.3, Albumin 4.3, Globulin 3.0, Albumin/Globulin Ratio 1.4 I & O for Labs for Last 24 Hours: Intake & Output 09/13/24 09/14/24 09/15/24 09/16/24 23:59 23:59 23:59 23:59 Intake Total 800 / 1040 510 / 510 Output Total 0 / 0 0 / 0 0 / 0 Balance 0 / 10 800 / 1040 510 / 510 Weight 119 lb 3.2 oz 119 lb 3.192 oz 118 lb Intake & Output 09/12/24 09/13/24 09/14/24 09/15/24 23:59 23:59 23:59 23:59 Intake Total 260 / 260 Output Total 0 / 0 0 / 0 Balance 0 / 10 260 / 260 Weight 119 lb 3.2 oz 119 lb 3.192 oz Microbiology Reports for the Last 24 Hours: Microbiology 09/16/24 01:32 Sputum - Expectorated Sputum Gram Stain - Preliminary Microbiology 08/04/24 05:27 Blood Blood Culture - Preliminary NO GROWTH AFTER 24 HOURS 08/04/24 05:27 Blood Blood Culture - Preliminary NO GROWTH AFTER 24 HOURS Constitutional: Present mild distress Head: Present normocephalic and atraumatic ENT: Present normal exam, normal oropharynx and mucous membranes moist Neck: Present normal inspection and full ROM Respiratory: Present respiratory distress and able to speak in complete sentences; Absent wheezes Cardiac: Present S1/S2, Tachycardia and radial pulses present GI: Present soft and distention; Absent tenderness or guarding Skin: Present intact; Absent cyanosis or jaundice Neuro: Present alert, awake and oriented x 3 Extremities: Present normal inspection; Absent clubbing or cyanosis Psychiatric: Present normal affect and cooperative Assessment and Plan *Assessment and plan (1) Acute exacerbation of chronic obstructive pulmonary disease: Status: Acute Category: Medical Code(s): J44.1 - Chronic obstructive pulmonary disease with (acute) exacerbation Plan Mr. Simmons is a 69-year-old male COPD triple inhaler therapy and azithromycin presented to ER with worsening respiratory distress and was admitted for management for COPD exacerbation. Patient admits relatively sudden onset symptoms. Admits to using nebulization therapies with no significant improvement in symptoms. Difficulty breathing wheezing and chest tightness. Patient also admits not using his Trelegy inhaler a week prior to admission secondary to insurance complaints issues. H/O SCC peviously on nivolumab, held as concerning for frequent COPD exacerbations. Greater than 3 exacerbations in the last 6 months. Venous blood gas upon admission, chronic hypercarbic respiratory failure. Chest x-ray upon admission stable from prior. No new consolidative or infiltrative changes noted. Hyperinflation noted as prior. Afebrile. Hemodynamically stable. Leukopenia. Plan initial examination patient does not appear to be in any severe respiratory distress. Mild expiratory wheezing noted. On baseline nasal cannula oxygen supplementation. Mild wheezing noted on auscultation. Continue to see nebulization therapies and steroids. Interval update: No acute respiratory vents overnight. Improving oxygen saturations, saturating 96% and above at 2 L this morning. No significant wheezing noted on auscultation this morning. Plan: Continue Trelegy 100 inhaler along with DuoNebs 4 times daily as needed Continue prednisone to complete a total of 5-day course No need for antibiotics at this point of time Continue oxygen supplementation to maintain O2 saturation goal of 90% and above, wean as tolerated. Thank you for involving pulmonary in this patient care. Will follow the patient in pulmonary clinic 5 to 7 days post discharge.
--- NOTE | 2024-09-16 12:51 | PC.NURSE ---
Right port chest heparin flushed and removed.
--- NOTE | 2024-09-19 14:19 | CARE MANAGER ---
Contacted patient related to hospital discharge. Patient states that he is about the same. He has his new medication and is aware of the follow up appointments. Denies questions or concerns. RAISA Underwood
== END 2024-09-16 13:41 | disposition home or self-care (01) ==
LOC: ER 20:02 → 2ND 20:26
PROVIDERS: Nurse Practitioner Family; Admitting Provider Internal Medicine Adolescent Medicine; Emergency Provider Emergency Medicine; PCP Internal Medicine Adolescent Medicine; Visit Provider Internal Medicine Adolescent Medicine
DX: J44.1 Chronic obstructive pulmonary disease with (acute) exacerbation (principal); Z99.81 Dependence on supplemental oxygen; J96.21 Acute and chronic respiratory failure with hypoxia; J96.22 Acute and chronic respiratory failure with hypercapnia; R06.02 Shortness of breath; F17.210 Nicotine dependence, cigarettes, uncomplicated; C34.90 Malignant neoplasm of unspecified part of unspecified bronchus or lung; R64 Cachexia; Z68.1 Body mass index [BMI] 19.9 or less, adult; Z79.899 Other long term (current) drug therapy
CPT/HCPCS: 71045; 80053; 82803; 83605; 83735; 83880; 84484; 85007; 85025; 85027; 85378; 86803; 87070; 87077; 87205; 87265; 87389; 87486; 87581; 87632; 87635; 87636; 93005; 94640; 94761; 99285; G0378; J1642; J1650; J2919; J3475; J7613; J7620

== ENCOUNTER 2024-09-30 22:57 | Emergency (ER) | payer MEDICARE, SELFPAY ==
[2024-09-30 23:00] VITALS: BP 130/88; PULSE 89; RESP 24; TEMP 37.1; O2SAT 99; BMI 17.2
--- NOTE | 2024-09-30 23:11 | ECG_ITS ---
APPROVED REPORT Exam: Resting ECG HR:86 bpm ECG Measurements Heart Rate 86 AXES QRSd 91 QRS 82 QT 402 T 68 QTc 445 Conclusion SUPRAVENTRICULAR RHYTHM MINIMAL ST DEPRESSION [0.025+ mV ST DEPRESSION] ABNORMAL RHYTHM ECG No STEMI, artifact complicates interpretation, see repeat ECG Electronically signed by : GERALD LORENZANA, 10/01/2024 07:25:11
--- NOTE | 2024-09-30 23:27 | CT_ITS ---
PROCEDURE INFORMATION: Exam: CTA Chest With Contrast Exam date and time: 10/01/2024 12:07 AM Age: 69 years old Clinical indication: Cough and shortness of breath; Additional info: SOA cough cp cancer PT TECHNIQUE: Imaging protocol: Computed tomographic angiography of the chest with contrast. Exam focused on the arteries. 3D rendering (Not supervised by radiologist): MIP and/or 3D reconstructed images were created by the technologist. Radiation optimization: All CT scans at this facility use at least one of these dose optimization techniques: automated exposure control; mA and/or kV adjustment per patient size (includes targeted exams where dose is matched to clinical indication); or iterative reconstruction. Contrast material: ISOUVE 370; Contrast volume: 80 ml; Contrast route: INTRAVENOUS (IV); COMPARISON: CT ANGIO CHEST PE PROTOCOL 08/04/2024 9:08 AM FINDINGS: Tubes, catheters and devices: Kizzy catheter tip projected in proximal superior vena cava. Pulmonary arteries: Normal. No pulmonary emboli. Aorta: Unremarkable. No aortic aneurysm. No aortic dissection. Lungs: Similar right perihilar scarring/posttreatment changes. Underlying centrilobular emphysematous changes. Hyperexpanded lungs. No infiltration. Pleural spaces: Unremarkable. No pneumothorax. No pleural effusion. Heart: Unremarkable. No cardiomegaly. No pericardial effusion. Lymph nodes: Unremarkable. No enlarged lymph nodes. Bones/joints: Unremarkable. No acute fracture. Soft tissues: Unremarkable. IMPRESSION: 1. No central or segmental pulmonary arterial embolism identified. 2. Diffuse underlying centrilobular emphysematous changes. 3. Stable right perihilar posttreatment changes. COMMENTS: The presence of pulmonary emphysema on CT is an independent risk factor for lung cancer. In the absence of a history or active diagnosis of lung cancer, it is recommended that this patient with emphysema be evaluated for enrollment in a low dose CT lung cancer screening program.
[2024-09-30 23:50] VITALS: PULSE 80; PULSE 84; O2SAT 98
[2024-09-30] MEDS: IPRATROPIUM/ALBUTEROL 3 ML NEB 9 ML IH (23:50)
[2024-09-30 23:57] LABS: VBG Base Excess 1.1 mmol/L (-2.4-2.3); VBG HCO3 26.6 mmol/L (23-30); VBG Oxygen Saturation 70.7 % (50-70); VBG PCO2 48.4 mmol/L (35-51); VBG PH 7.36 mmol/L (7.31-7.41); VBG PO2 39.1 mmol/L (28-40); VBG Total CO2 28.1 mmol/L (23-27)
[2024-09-30 23:58] LABS: Basophils % 0.3 % (0.1-2.0); Eosinophils # 0.1 K/mm3 (0.0-0.4); Hematocrit 31.3 % (42.0-52.0); Hemoglobin 10.6 g/dL (14.1-18.0); Lymphocytes % 13.1 % (10-50); Mean Corpuscular HGB Conc 33.8 g/dL (31.8-35.4); Mean Corpuscular Hemoglobin 31.1 pg (27.0-31.2); Mean Corpuscular Volume 91.8 fl (80-94); Monocytes # 0.5 K/mm3 (0.1-1.0); Monocytes % 6.1 % (1.7-9.3); Neutrophils % 79.5 % (37.0-80.0); Platelet Count 361 K/mm3 (142-424); Red Blood Count 3.41 M/mm3 (4.60-6.20); Red Cell Distribution Width 14.3 % (11.5-17.5); White Blood Count 7.6 K/mm3 (4.8-10.8)
[2024-10-01] MEDS: METHYLPREDNISOLONE SOD SUCC 125MG VIAL 125 MG IV
--- NOTE | 2024-10-01 | XR_ITS ---
PROCEDURE INFORMATION: Exam: XR Chest Exam date and time: 10/01/2024 12:19 AM Age: 69 years old Clinical indication: Cough and shortness of breath TECHNIQUE: Imaging protocol: Radiologic exam of the chest. Views: 2 views. COMPARISON: CT ANGIO CHEST PE PROTOCOL 10/01/2024 12:07 AM FINDINGS: Tubes, catheters and devices: Kizzy catheter tip projected over proximal superior vena cava. Lungs: Similar asymmetric prominence of right perihilar shadow. Hyperinflated lungs. Stable calcified left lower lung zone nodule. Underlying emphysematous changes throughout both lungs. Pleural spaces: Unremarkable. No pleural effusion. No pneumothorax. Heart/Mediastinum: Unremarkable. No cardiomegaly. Bones/joints: Unremarkable. IMPRESSION: No acute radiographic findings. No infiltration is seen.
[2024-10-01 00:03] LABS: Blood Urea Nitrogen 10 mg/dl (9-20); Chloride 97 mmol/L (98-107); Creatinine Clearance Estimated 55 mL/min (50-200); Estimated Glomerular Filt Rate 96 ml/min (>60); GFR (African American) 117 ML/MIN (>60); Potassium 4.1 mmoL/L (3.5-5.1); Sodium 137 mmol/L (136-145)
[2024-10-01 00:04] LABS: Alanine Aminotransferase 13 U/L (12-78); Albumin/Globulin Ratio 1.3 (1.1-1.8); Alkaline Phosphatase 82 U/L (38-126); Anion Gap 12.1 mEq/L (5-15); Aspartate Amino Transferase 24 U/L (17-59); Bilirubin,Total 0.5 mg/dl (0.2-1.3); Carbon Dioxide 32 mmol/L (22.0-30.0); Glucose 105 mg/dl (74-100)
--- NOTE | 2024-10-01 00:07 | PC.NURSE ---
critical called, calcium of 5.0
[2024-10-01 00:14] LABS: NT Pro Brain Natriuretic Pep. 480 pg/mL (0-125)
[2024-10-01 00:16] LABS: Troponin I < 0.01 ng/ml (0.00-0.034)
[2024-10-01 00:37] LABS: Magnesium 1.4 mg/dl (1.6-2.3)
[2024-10-01] MEDS: IOPAMIDOL-370 (76%);100ML BOTTLE 70 ML IV (00:38)
[2024-10-01] MEDS: SODIUM CHLORIDE 0.9% 10ML SYR (RAD ONLY) 10 ML IV (00:38)
[2024-10-01] MEDS: 0.9 % SODIUM CHLORIDE 50 ML VIAL IV (00:39)
--- NOTE | 2024-10-01 00:41 | ECG_ITS ---
APPROVED REPORT Exam: Resting ECG HR:125 bpm ECG Measurements Heart Rate 125 AXES LA 146 P 85 QRSd 95 QRS 78 QT 398 T 71 QTc 472 Conclusion SINUS TACHYCARDIA WITH FREQUENT VENTRICULAR PREMATURE COMPLEXES ABNORMAL RHYTHM ECG No STEMI Electronically signed by : GERALD LORENZANA, 10/01/2024 07:26:30
[2024-10-01 00:51] LABS: Adenovirus,PCR Not Detected (NotDetected); Bordetella Pertussis Not Detected (NotDetected); Chlamydophila Pneumoniae, PCR Not Detected (NotDetected); Coronavirus 19, PCR Not Detected (NotDetected); Coronavirus 229E Not Detected (NotDetected); Coronavirus NL63 Not Detected (NotDetected); Coronavirus OC43 Not Detected (NotDetected); Coronovirus HKU1,PCR Not Detected (NotDetected); Human Metapneumovirus Not Detected (NotDetected); Influenza A, PCR Not Detected (NotDetected); Influenza AH1, 2009 Not Detected (NotDetected); Influenza AH1, PCR Not Detected (NotDetected); Influenza AH3,PCR Not Detected (NotDetected); Influenza B, PCR Not Detected (NotDetected); Mycoplasma Pneumoniae, PCR Not Detected (NotDetected); Parainfluenza 1, PCR Not Detected (NotDetected); Parainfluenza 2, PCR Not Detected (NotDetected); Parainfluenza 3, PCR Not Detected (NotDetected); Parainfluenza 4, PCR Not Detected (NotDetected); Respiratory Syncytial Virus Not Detected (NotDetected); Rhinovirus/Enterovirus Not Detected (NotDetected)
[2024-10-01] MEDS: CALCIUM CARBONATE 500MG CHEWTAB 1000 MG PO (01:10)
[2024-10-01] MEDS: MAGNESIUM SULFATE IN WATER 2 GM/50 ML PIGGYBACK IV (01:11)
[2024-10-01 02:12] LABS: Calcium 5.1 mg/dl (8.4-10.2)
--- NOTE | 2024-10-01 02:12 | PC.NURSE ---
critical lab called, calcium 5.1
[2024-10-01 02:25] LABS: Troponin I < 0.01 ng/ml (0.00-0.034)
[2024-10-01 02:29] VITALS: BP 132/87; PULSE 82; RESP 20; TEMP 36.6; O2SAT 100
--- NOTE | 2024-10-01 02:29 | ED_ITS ---
Discharge Plan Disposition Patient Disposition: Home, Self-Care Condition: Good Prescriptions Prescriptions: New calcium carbonate [Calcium 500] 500 mg calcium (1,250 mg) tablet,chewable 1,000 mg PO DAILY Qty: 10 0RF prednisone 50 mg tablet 50 mg PO DAILY 5 Days Qty: 5 0RF No Action trazodone 150 mg tablet 150 mg PO HS propranolol 20 mg tablet 20 mg PO BID nicotine (polacrilex) 4 mg lozenge 4 mg buccal Q6H PRN (Reason: nicotine cravings) Qty: 72 0RF Trelegy Ellipta 100-62.5-25 mcg blister with device 1 inh inhalation DAILY 90 Days Qty: 180 3RF albuterol sulfate 90 mcg/actuation HFA aerosol inhaler 2 inh IH QID PRN (Reason: shortness of breath or wheezing) 90 Days Qty: 8.5 2RF ipratropium-albuterol 0.5 mg-3 mg(2.5 mg base)/3 mL solution for nebulization 3 ml INHALATION QIDP PRN (Reason: Shortness Of Breath Or Wheezing) 90 Days Qty: 180 3RF ergocalciferol (vitamin D2) 1,250 mcg (50,000 unit) Capsule 50,000 unit PO WEEKLY 30 Days Qty: 4 2RF nicotine 14 mg/24 hr patch 24 hour 1 patch transdermal DAILY 28 Days Qty: 28 2RF levofloxacin 750 mg tablet 750 mg PO DAILY 7 Days Qty: 7 0RF prednisone 20 mg tablet 40 mg PO DAILY 4 Days Qty: 8 0RF Rx Instructions: You were given your first dose today 09/14/2024, so please start this tomorrow 09/15/2024 aspirin 325 mg Tablet 325 mg PO DAILY azelastine 137 mcg (0.1 %) spray,non-aerosol 2 spray intranasal BID Patient Comments: USE 2 SPRAYS IN EACH NOSTRIL TWICE DAILY alprazolam 0.25 mg Tablet 0.25 mg PO Q8HP PRN (Reason: Anxiety) 3 Days Qty: 9 0RF prednisone 20 mg Tablet 40 mg PO DAILY 5 Days Qty: 10 0RF Referrals Follow up/Referrals: Main Carrington MD [Primary Care Provider] - See instructions (Please recheck Ca and magnesium on 10/03 or 10/04. Prescribed short course PO Calcium for asymptomatic hypocalcemia from ER. 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 ) Activity Restrictions/Add. Instructions Additional Instructions/Restrictions: You were evaluated in the ER and are appropriate for discharge at this time. Take the prescribed prednisone as directed. Also take the prescribed calcium as directed. It is very important that you make an appointment with your primary care doctor to recheck your calcium on Thursday or Thursday. Call them immediately for this appointment. Return to the ER with new, worsening, or otherwise concerning symptoms. Clinical Impressions Clinical Impression: COPD exacerbation, Hypocalcemia, Hypomagnesemia Print Language Print Language: Mongolian Discharge ED Provider: Juliane Alva General Chief Complaint: Shortness of Breath/Dyspnea Stated Complaint: productive cough,drainage,shaking,mucus in troat Time Seen by Provider: 09/30/24 23:21 Mode of Arrival: Wheelchair Source of Information: Patient and Spouse Limitations: No Limitations Description of Symptoms (Recalled from ER Triage Doc. by RN): pt reports a hx of COPD with home O2 use but is requiring increased requirements. pt has been having increased congestion, chest pain and a cough for the past 3 days. History of Present Illness HPI narrative: 69-year-old male with history of cancer not currently being treated as well as COPD on home oxygen presents to the ER for complaints of shortness of breath, cough for the last few days. Patient has not had fevers, chills, nausea, vomiting, diarrhea, or other associated symptoms. Patient reports he always has low calcium. Family at bedside reports his cancer is stable after treatment so he is not actively getting any treatment at this time. Patient reports his shortness of breath increased today around noon, approximately 12 hours prior to arrival so he increased his home oxygen from 2 L to 3 L. This did not significantly change his symptoms. He has been taking his home medications as prescribed without improvement. He came to the ER for further evaluation. He has not had any new headache, dizziness, numbness, tingling, or weakness. He also denies muscle spasms. He has a history of tremors treated with propranolol. Related Data Home Medications ?Medication ?Instructions ?Recorded ?Confirmed trazodone 150 mg tablet 150 mg PO HS 07/03/22 09/14/24 aspirin 325 mg tablet 325 mg PO DAILY 05/11/23 09/14/24 azelastine 137 mcg (0.1 %) nasal 2 spray intranasal BID 07/31/24 09/14/24 spray propranolol 20 mg tablet 20 mg PO BID 08/23/24 09/14/24 Previous Rx's ?Medication ?Instructions ?Recorded ergocalciferol (vitamin D2) 1,250 50,000 unit PO WEEKLY 30 days #4 08/05/24 mcg (50,000 unit) capsule caps nicotine 14 mg/24 hr daily 1 patch transdermal DAILY 28 days 08/05/24 transdermal patch #28 ea nicotine (polacrilex) 4 mg buccal 4 mg buccal Q6H PRN nicotine 08/23/24 lozenge cravings #72 ea levofloxacin 750 mg tablet 750 mg PO DAILY 7 days #7 tabs 09/14/24 prednisone 20 mg tablet 40 mg (2 x 20 mg) PO DAILY 4 days 09/14/24 #8 tabs albuterol sulfate 90 mcg/actuation 2 inh inhalation QID PRN shortness 09/16/24 aerosol inhaler of breath or wheezing 90 days #8.5 grams alprazolam 0.25 mg tablet 0.25 mg PO Q8HP PRN Anxiety 3 days 09/16/24 #9 tabs fluticasone fur. 100 mcg-umeclid 1 inh inhalation DAILY 90 days 09/16/24 62.5 mcg-vilant 25 mcg #180 ea inhalat.powder (Trelegy Ellipta) ipratropium 0.5 mg-albuterol 3 mg 3 ml inhalation QIDP PRN Shortness 09/16/24 (2.5 mg base)/3 mL nebulization Of Breath Or Wheezing 90 days #180 soln mL prednisone 20 mg tablet 40 mg (2 x 20 mg) PO DAILY 5 days 09/16/24 #10 tabs calcium carbonate (Calcium 500) 1,000 mg (2 x 500 mg calcium 10/01/24 (1,250 mg)) PO DAILY #10 tabs prednisone 50 mg tablet 50 mg PO DAILY 5 days #5 tabs 10/01/24 Allergies Allergy/AdvReac Type Severity Reaction Status Date / Time silver (From Tegaderm AG Allergy Severe Rash Verified 08/25/24 10:33 Mesh) doxycycline Allergy Mild Verified 08/25/24 10:33 Penicillins (PENICILLINS) Allergy Mild Verified 08/25/24 10:33 amitriptyline AdvReac Intermediate gi upset Verified 08/25/24 10:33 adhesive AdvReac Verified 08/25/24 10:33 hydrocodone AdvReac Verified 08/25/24 10:33 PFSH PFSH Disclaimer: The information contained in this section may have been updated after the patient was seen, as this information can be updated by other users. Medical History Bilateral impacted cerumen Tinnitus Hearing loss Lung nodule Hilar lymphadenopathy Pneumonia Sleep apnea Emphysema/COPD Chronic cough Bronchitis Allergies History of anemia Lung collapse Nodule of right lung Tobacco abuse disorder Tobacco abuse counseling Small cell lung cancer Smoking greater than 30 pack years Chronic hypoxemic respiratory failure COPD (chronic obstructive pulmonary disease) Dyspnea on exertion On home O2 Sinus problem History of chemotherapy History of radiation therapy Personal history of arthritis History of lung disease Hyperlipemia Cancer Asthma Essential hypertension COPD exacerbation Surgical History History of insertion of tunneled central venous catheter (CVC) with port History of colonoscopy Hx of cardiac catheterization Normal coronary arteries History of sinus surgery Family History Other Cancer Diabetes Social History (Updated 09/14/24 @ 22:12 by Kerri Nj RN) Smoking Status: Current every day smoker tobacco type: cigarettes packs per day: 1 years smoked: 50 alcohol intake: former substance use type: denies use current occupational status: retired and disabled household members: spouse housing: house caffeine: Yes Other Medical History Have you received the Flu Vaccine for this season: Yes Have you received the Pneumonia Vaccine: Yes ROS Obtained: Yes Systems reviewed as appropriate & no additional complaints except as documented ROS per HPI Physical Exam General General appearance: alert, in no apparent distress and cachectic Comment: Chronically ill-appearing Head Head exam: atraumatic and normocephalic Eye Eye exam: Present PERRL and EOMI ENT ENT exam: Present mucous membranes moist Neck Neck exam: Present normal inspection and full ROM Chest Chest inspection: Present symmetric chest wall rise Respiratory Respiratory exam: Present wheezes (Faint end expiratory, significantly diminished breath sounds throughout) and other (Mild tachypnea on arrival with pursed lip breathing but saturating 100% on 4 L nasal cannula); Absent respiratory distress or stridor Cardiovascular Cardiovascular exam: Present regular rate and normal rhythm Abdominal Exam Abdominal exam: Present soft; Absent distention or tenderness Extremities Exam Extremities exam: Present full ROM Neurological Exam Neurological exam: Present alert and oriented X3; Absent motor sensory deficit Psychiatric Psychiatric exam: Present normal affect and normal mood Skin Skin exam: Present warm and dry HEART Score HEART Score HEART Score assessment performed?: Yes History (anamnesis): Slightly suspicious ECG: Non-specific disturbance Age: >65 years Risk factors: 1-2 risk factors Troponin: </= normal limit HEART Score: 4 Critical Care Critical Care Time Critical Care Time: No Medical Decision Making Medical Records Medical records reviewed: Yes I reviewed the patient's medical records. MR Comment: Most recent oncology progress note from August 2024 was reviewed demonstrating patient was first diagnosed with small cell lung cancer in May 2019. CAT scans before this appointment are reassuring with no evidence of progressive disease. Oncology is pursuing observation only at this time. Repeat labs and CTs in 3 months from that appointment. [place] Inquiry Pt receiving controlled substance: No Vital Signs Vital Signs: 09/30/24 23:00 09/30/24 23:50 09/30/24 23:50 Temperature 98.8 F Temperature Source Oral Pulse Rate 84 80 Pulse Rate [Right] 89 Respiratory Rate 24 Blood Pressure [Right Arm] 130/88 Blood Pressure Mean [Right Arm] 102 02 Sat by Pulse Oximetry 99 Oxygen Delivery Method Nasal Cannula Oxygen Flow Rate (LPM) 4 09/30/24 23:50 Temperature Temperature Source Pulse Rate Pulse Rate [Right] Respiratory Rate Blood Pressure [Right Arm] Blood Pressure Mean [Right Arm] 02 Sat by Pulse Oximetry 98 Oxygen Delivery Method Nasal Cannula Oxygen Flow Rate (LPM) 4 Lab Data Labs: Lab Results 09/30/24 23:21: VBG pH 7.36, VBG pCO2 48.4, VBG pO2 39.1, VBG HCO3 26.6, VBG Total CO2 28.1 H, VBG O2 Saturation 70.7 H, VBG Base Excess 1.1, VBG Lactic Acid 1.0 09/30/24 23:48: WBC 7.6, RBC 3.41 L, Hgb 10.6 L, Hct 31.3 L, MCV 91.8, MCH 31.1, MCHC 33.8, RDW 14.3, Plt Count 361, MPV 7.0 L, Neut % (Auto) 79.5, Lymph % (Auto) 13.1, [place] % (Auto) 6.1, Eos % (Auto) 1.0, Baso % (Auto) 0.3, Neut # (Auto) 6.0, Lymph # (Auto) 1.0, [place] # (Auto) 0.5, Eos # (Auto) 0.1, Baso # (Auto) 0.0, Sodium 137, Potassium 4.1, Chloride 97 L, Carbon Dioxide 32 H, Anion Gap 12.1, BUN 10, Creatinine 0.80, Estimated Creat Clear 55, Estimated GFR 96, Est GFR ( Amer) 117, Glucose 105 H, Calcium 5.0 L*, Magnesium 1.4 L, Total Bilirubin 0.5, AST 24, ALT 13, Alkaline Phosphatase 82, Troponin I < 0.01, NT-Pro-B Natriuret Pep 480 H, Total Protein 7.0, Albumin 4.0, Globulin 3.0, Albumin/Globulin Ratio 1.3 10/01/24 00:35: Chlamy pneumoniae PCR Not detected, Adenovirus (PCR) Not detected, B. pertussis DNA (PCR) Not detected, Coronavirus OC43 (PCR) Not detected, Coronavirus HKU1 (PCR) Not detected, Coronavirus 229E (PCR) Not detected, SARS-CoV-2 (PCR) Not detected, Coronavirus NL63 (PCR) Not detected, Human Metapneumovir PCR Not detected, Influenza A (H1) PCR Not detected, Influ A (H1N1/09) PCR Not detected, Influenza A (H3) PCR Not detected, Influenza Type A (PCR) Not detected, Influenza Type B (PCR) Not detected, M. pneumoniae (PCR) Not detected, Parainfluenza 1 (PCR) Not detected, Parainfluenza 2 (PCR) Not detected, Parainfluenza 3 (PCR) Not detected, Parainfluenza 4 (PCR) Not detected, RSV (PCR) Not detected, Entero/Rhino (PCR) Not detected 10/01/24 01:55: Calcium 5.1 L*, Troponin I < 0.01 09/30/24 23:48 09/30/24 23:48 Response Orders (Tests/Meds): ED MEDICATIONS Generic Name Dose Route Start Last Admin Trade Name Freq PRN Reason Stop Dose Admin Sodium Chloride 10 ml 10/01/24 00:38 10/01/24 00:38 Sodium Chloride 0.9% 10ml Syr (Rad Only) IV 10/31/24 00:37 10 ml NEEDED PRN Administration Maintain IV Site Discontinued Medications Generic Name Dose Route Start Last Admin Trade Name Julio PRN Reason Stop Dose Admin Albuterol/Ipratropium 9 ml 09/30/24 23:27 09/30/24 23:50 Ipratropium/Albuterol 3 Ml Neb IH 09/30/24 23:28 9 ml ONCE ONE Administration Calcium Carbonate 1,000 mg 10/01/24 00:16 10/01/24 01:14 Oyster Shell Calcium (Elemental) 500mg Tab PO 10/01/24 00:17 Not Given ONCE ONE Calcium Carbonate 1,000 mg 10/01/24 01:09 10/01/24 01:10 Calcium Carbonate 500mg Chewtab PO 10/01/24 01:10 1,000 mg ONCE ONE Administration Magnesium Sulfate 2 gm in 50 mls @ 50 mls/hr 10/01/24 01:07 10/01/24 01:11 Magnesium Sulfate 2gm/50ml Premix IV 10/01/24 02:06 50 mls/hr ONCE ONE Administration Iopamidol 70 ml 10/01/24 00:38 10/01/24 00:38 Iopamidol-370 (76%);100ml Bottle IV 10/01/24 00:39 70 ml ONCE ONE Administration Methylprednisolone Sodium Succinate 125 mg 09/30/24 23:28 10/01/24 00:00 Methylprednisolone Sod Succ 125mg Vial IV 09/30/24 23:29 125 mg ONCE ONE Administration Sodium Chloride 50 ml 10/01/24 00:38 10/01/24 00:39 0.9 % Sodium Chloride 50 Ml Vial IV 10/01/24 00:39 50 ml ONCE ONE Administration ORDERS Category Date Time Status CT angio chest PE protocol Stat Cat Scan 09/30/24 23:27 Completed XR chest 2V Routine Exams 10/01/24 Completed Calcium Stat Lab 10/01/24 01:55 Completed Complete Blood Count Auto Diff Stat Lab 09/30/24 23:48 Completed Comprehensive Metabolic Panel Stat Lab 09/30/24 23:48 Completed Full Resp Panel w/COVID ([facility]) Routine Lab 10/01/24 00:35 Completed Magnesium Stat Lab 10/01/24 00:12 Completed NT Pro Brain Natriuretic Pep. Stat Lab 09/30/24 23:48 Completed Troponin I Q3H Lab 10/01/24 01:55 Completed Troponin I Q3H Lab 10/01/24 05:30 Ordered Troponin I Stat Lab 09/30/24 23:22 Completed Venous Blood Gas Stat RT 09/30/24 23:21 Completed MDM Narrative Medical Decision Narrative: In summary, this 69-year-old male with comorbidities as described in HPI presents to the emergency department today with shortness of breath. On initial evaluation patient is hemodynamically stable, afebrile, no chest pain, patient does have wheezing and significantly diminished breath sounds throughout without rhonchi or rales appreciated. He is cachectic appearing. Differential diagnosis includes but is not limited to COPD exacerbation, pneumonia, PE, ACS, neoplasm. Based on these concerns, I ordered serum labs, cardiac workup, CTA PE. ECG personally interpreted demonstrates normal sinus rhythm, rate 86, normal axis, normal NV and QTc, patient does have tall T waves, possible hyperkalemia, no STEMI. There is significant artifact on initial ECG so repeat will be performed.. Patient received DuoNebs, Solu-Medrol initially for treatment. Labs personally reviewed demonstrate no leukocytosis, stable anemia, VBG with normal pH and no hypercarbia, lactic 1.0, CMP with good kidney function, no transaminitis, initial troponin undetectably low less than 0.01. Patient's calcium was 5.0, he has a history of hypocalcemia typically ranging from 5.6- 6.0. Most recent calcium was 6.32 weeks ago. Patient is asymptomatic, no muscle spasms or twitching, no mental status changes, no chest pain or palpitations. He admits he has not been taking his calcium supplement like he previously was. I checked a magnesium which is also low, patient received IV magnesium as well as oral calcium. Since he is asymptomatic has a history of chronic hypocalcemia, I do not believe that aggressive calcium repletion is indicated at this time. Chest x-ray personally interpreted does not demonstrate infiltrate, see radiology read for final interpretation. CTA PE personally interpreted does not demonstrate large PE, no findings of pneumonia, see radiology reads for full interpretation. Repeat ECG personally interpreted demonstrates sinus tachycardia with PVCs likely related to patient having received proper dilator treatment, normal axis, normal NV, QTc 472, no STEMI. Recheck calcium after initial interventions with slightly improved to 5.1. He reports his respiratory symptoms have improved and he is breathing more comfortably with improved breath sounds throughout. Without findings of infection I am not prescribing antibiotics, I did prescribe prednisone for COPD exacerbation management. I also prescribed oral calcium carbonate for outpatient management of his hypocalcemia. I do not believe he requires admission for this since it is a chronic problem only slightly worsened today and he is asymptomatic from it. He states he is able to see his primary care doctor on Thursday or Thursday, I instructed him and his family to make sure he has an appointment Thursday or Thursday to recheck calcium and magnesium. Patient was given instructions on symptomatic management, medication management, follow up instructions, and return precautions for the emergency department. Patient indicated understanding and was discharged in stable condition.
== END 2024-10-01 02:34 | disposition home or self-care (01) ==
PROVIDERS: Emergency Provider Emergency Medicine; PCP Internal Medicine Adolescent Medicine
DX: J44.1 Chronic obstructive pulmonary disease with (acute) exacerbation (principal); E83.42 Hypomagnesemia; E83.51 Hypocalcemia; R06.02 Shortness of breath; R07.89 Other chest pain; R09.81 Nasal congestion; R05.8 Other specified cough; R25.1 Tremor, unspecified; Z72.0 Tobacco use
CPT/HCPCS: 71046; 71275; 80053; 82310; 82803; 83735; 83880; 84484; 85025; 87633; 93005; 96365; 96374; 99285; J2919; J3475; J7620; Q9967

== ENCOUNTER 2024-10-03 12:48 | Outpatient (CLI) | payer MEDICARE, SELFPAY ==
[2024-10-03 13:22] LABS: Eosinophils % 0.1 % (0.1-12.0); Hematocrit 34.2 % (42.0-52.0); Hemoglobin 11.5 g/dL (14.1-18.0); Lymphocytes # 0.6 K/mm3 (0.7-4.5); Lymphocytes % 8.1 % (10-50); Mean Corpuscular HGB Conc 33.7 g/dL (31.8-35.4); Mean Corpuscular Hemoglobin 31.3 pg (27.0-31.2); Mean Corpuscular Volume 92.9 fl (80-94); Monocytes # 0.2 K/mm3 (0.1-1.0); Neutrophils # 6.6 K/mm3 (1.8-7.8); Neutrophils % 88.8 % (37.0-80.0); Platelet Count 345 K/mm3 (142-424); Red Blood Count 3.68 M/mm3 (4.60-6.20); White Blood Count 7.5 K/mm3 (4.8-10.8)
[2024-10-03 13:28] LABS: MANUAL DIFFERENTIAL MANUAL DIFFERENTIAL (MANUAL DIFF)
[2024-10-03 13:43] LABS: Albumin Level 4.1 g/dl (3.5-5.0); Chloride 97 mmol/L (98-107); Potassium 3.8 mmoL/L (3.5-5.1); Sodium 138 mmol/L (136-145)
[2024-10-03 13:46] LABS: Alanine Aminotransferase 14 U/L (12-78); Albumin/Globulin Ratio 1.8 (1.1-1.8); Alkaline Phosphatase 81 U/L (38-126); Anion Gap 12.8 mEq/L (5-15); Aspartate Amino Transferase 23 U/L (17-59); Bilirubin,Total 0.4 mg/dl (0.2-1.3); Blood Urea Nitrogen 13 mg/dl (9-20); Calcium 6.4 mg/dl (8.4-10.2); Carbon Dioxide 32 mmol/L (22.0-30.0); Estimated Glomerular Filt Rate 112 ml/min (>60); GFR (African American) 136 ML/MIN (>60); Globulin 2.3 g/dL (1.3-3.2); Glucose 121 mg/dl (74-100); Total Protein,Serum 6.4 g/dl (6.3-8.2)
[2024-10-03 15:19] LABS: Lymphocytes % 5 % (10-50); Monocytes % 2 % (2-9); Neutrophils % 93 % (42-76); Platelet Estimate Normal; RBC Morphology Normal; Total Cells Counted 100
[2024-10-07 09:51] LABS: Magnesium 1.6 mg/dl (1.6-2.3)
== END 2024-10-03 23:59 | disposition home or self-care (01) ==
LOC: LAB 12:49
PROVIDERS: Internal Medicine Medical Oncology; PCP Internal Medicine Adolescent Medicine; Visit Provider Internal Medicine Adolescent Medicine
DX: C34.90 Malignant neoplasm of unspecified part of unspecified bronchus or lung (principal); J44.9 Chronic obstructive pulmonary disease, unspecified; J96.22 Acute and chronic respiratory failure with hypercapnia
CPT/HCPCS: 36415; 80053; 83735; 85007; 85025; 85027

== ENCOUNTER 2024-11-13 13:36 | Observation (INO) | payer MEDICARE, SELFPAY ==
[2024-11-13] VITALS (9 sets, daily range): BP systolic 98–137; BP diastolic 60–89; PULSE 86–105; RESP 16–30; TEMP 36.1–36.8; O2SAT 95–100; BMI 18.1
--- NOTE | 2024-11-13 13:41 | ED_ITS ---
Discharge Plan Disposition Patient Disposition: Admitted Condition: Fair Clinical Impressions Clinical Impression: Acute exacerbation of chronic obstructive pulmonary disease, Hypocalcemia, Hypomagnesemia Discharge ED Provider: Yadiel Richards General Adult HPI <ANÍBAL Harvey - Last Filed: 11/13/24 15:57> General Chief complaint: Shortness of Breath/Dyspnea Stated complaint: soa Time Seen by Provider: 11/13/24 13:40 History of Present Illness HPI narrative: Patient presents for evaluation of dyspnea. Patient has longstanding COPD on 3 L at baseline as well as metastatic small cell lung cancer. He was treated with radiation and chemotherapy and most recently on nivolumab however that was held due to increasing frequency of COPD exacerbations. Patient saw Dr. Dumont last Thursday and was prescribed steroids and antibiotic although they do not know which 1. He was doing fine until this morning and patient's utilize his home nebulizer without relief. He denies chest pain fever chills hemoptysis hematochezia melena nausea vomiting diarrhea. Patient continues to smoke any down to about 10 cigarettes a day however. Related Data Home Medications ?Medication ?Instructions ?Recorded ?Confirmed trazodone 150 mg tablet 150 mg PO HS 07/03/22 09/14/24 aspirin 325 mg tablet 325 mg PO DAILY 05/11/23 09/14/24 azelastine 137 mcg (0.1 %) nasal 2 spray intranasal BID 07/31/24 09/14/24 spray propranolol 20 mg tablet 20 mg PO BID 08/23/24 09/14/24 Previous Rx's ?Medication ?Instructions ?Recorded ergocalciferol (vitamin D2) 1,250 50,000 unit PO WEEKLY 30 days #4 08/05/24 mcg (50,000 unit) capsule caps nicotine 14 mg/24 hr daily 1 patch transdermal DAILY 28 days 08/05/24 transdermal patch #28 ea nicotine (polacrilex) 4 mg buccal 4 mg buccal Q6H PRN nicotine 08/23/24 lozenge cravings #72 ea levofloxacin 750 mg tablet 750 mg PO DAILY 7 days #7 tabs 09/14/24 prednisone 20 mg tablet 40 mg (2 x 20 mg) PO DAILY 4 days 09/14/24 #8 tabs albuterol sulfate 90 mcg/actuation 2 inh inhalation QID PRN shortness 09/16/24 aerosol inhaler of breath or wheezing 90 days #8.5 grams alprazolam 0.25 mg tablet 0.25 mg PO Q8HP PRN Anxiety 3 days 09/16/24 #9 tabs fluticasone fur. 100 mcg-umeclid 1 inh inhalation DAILY 90 days 09/16/24 62.5 mcg-vilant 25 mcg #180 ea inhalat.powder (Trelegy Ellipta) ipratropium 0.5 mg-albuterol 3 mg 3 ml inhalation QIDP PRN Shortness 09/16/24 (2.5 mg base)/3 mL nebulization Of Breath Or Wheezing 90 days #180 soln mL prednisone 20 mg tablet 40 mg (2 x 20 mg) PO DAILY 5 days 09/16/24 #10 tabs calcium carbonate (Calcium 500) 1,000 mg (2 x 500 mg calcium 10/01/24 (1,250 mg)) PO DAILY #10 tabs prednisone 50 mg tablet 50 mg PO DAILY 5 days #5 tabs 10/01/24 Allergies Allergy/AdvReac Type Severity Reaction Status Date / Time silver (From Tegaderm AG Allergy Severe Rash Verified 08/25/24 10:33 Mesh) doxycycline Allergy Mild Verified 08/25/24 10:33 Penicillins (PENICILLINS) Allergy Mild Verified 08/25/24 10:33 amitriptyline AdvReac Intermediate gi upset Verified 08/25/24 10:33 adhesive AdvReac Verified 08/25/24 10:33 hydrocodone AdvReac Verified 08/25/24 10:33 PFSH <ANÍBAL Harvey - Last Filed: 11/13/24 15:57> [facility] Disclaimer: The information contained in this section may have been updated after the patient was seen, as this information can be updated by other users. Medical History Bilateral impacted cerumen Tinnitus Hearing loss Lung nodule Hilar lymphadenopathy Pneumonia Sleep apnea Emphysema/COPD Chronic cough Bronchitis Allergies History of anemia Lung collapse Nodule of right lung Tobacco abuse disorder Tobacco abuse counseling Small cell lung cancer Smoking greater than 30 pack years Chronic hypoxemic respiratory failure COPD (chronic obstructive pulmonary disease) Dyspnea on exertion On home O2 Sinus problem History of chemotherapy History of radiation therapy Personal history of arthritis History of lung disease Hyperlipemia Cancer Asthma Essential hypertension COPD exacerbation Surgical History History of insertion of tunneled central venous catheter (CVC) with port History of colonoscopy Hx of cardiac catheterization Normal coronary arteries History of sinus surgery Family History Other Cancer Diabetes Social History (Updated 10/01/24 @ 02:41 by Juliane Alva MD) Smoking Status: Current every day smoker tobacco type: cigarettes packs per day: 1 years smoked: 50 alcohol intake: former substance use type: denies use current occupational status: retired and disabled Travel in the last 8 weeks: None household members: spouse housing: house caffeine: Yes Have you lived/traveled outside [place] in past 30 days?: No Contact w/someone who lives/traveled outside US past 30 days?: No Exposure to someone with infectious disease in past 14 days?: No Do you have a fever (greater than 100.4 F or 38 C)?: No Have you tested positive for COVID-19: No Exposed to someone with COVID-19 in past 14 days?: No Do you have a sore throat?: No Do you have a cough?: No Do you have any weakness?: No Do you have any diarrhea?: No Are you experiencing any unusual bleeding?: No Do you have any muscle aches/pain?: No Do you have any abdominal pain?: No Are you experiencing loss of taste or smell?: No Other Medical History Have you received the Flu Vaccine for this season: Yes Have you received the Pneumonia Vaccine: Yes <ANÍBAL Harvey - Last Filed: 11/13/24 15:57> ROS Obtained: Yes Systems reviewed as appropriate & no additional complaints except as documented Physical Exam <ANÍBAL Harvey - Last Filed: 11/13/24 15:57> General General appearance: alert and in no apparent distress Respiratory Respiratory exam: Present normal lung sounds bilaterally Cardiovascular Cardiovascular exam: Present regular rate Neurological Exam Neurological exam: Present alert and oriented X3 Medical Decision Making <ANÍBAL Harvey - Last Filed: 11/13/24 15:57> Medical Records Medical records reviewed: Yes I reviewed the patient's medical records. Screening: Per USPSTF and CDC recommendations, given the prevalence of disease in our region, it is our hospital?s policy to screen for HIV and viral Hepatitis for all patients aged 18 and over and those with ongoing risk factors. [place] Inquiry Pt receiving controlled substance: No Vital Signs: 11/13/24 13:37 11/13/24 14:00 11/13/24 14:30 Temperature 97 F L Temperature Source Oral Pulse Rate 99 H 98 H Pulse Rate [Right] 105 H Respiratory Rate 30 H Blood Pressure 103/68 L 104/60 L Blood Pressure [Right Arm] 137/89 Blood Pressure Mean [Right Arm] 105 02 Sat by Pulse Oximetry 98 100 99 Oxygen Delivery Method Nasal Cannula Room Air Room Air Oxygen Flow Rate (LPM) 3 11/13/24 15:00 11/13/24 16:00 Temperature Temperature Source Pulse Rate 88 86 Pulse Rate [Right] Respiratory Rate Blood Pressure 98/61 L 124/67 Blood Pressure [Right Arm] Blood Pressure Mean [Right Arm] 02 Sat by Pulse Oximetry 99 100 Oxygen Delivery Method Nasal Cannula Nasal Cannula Oxygen Flow Rate (LPM) 3 3 Lab Data Lab results reviewed: Yes I reviewed the patient's lab results. Lab Results 11/13/24 13:42: SARS-CoV-2 (PCR) Not detected, Influenza A Untype (PCR) Not detected, Influenza Type B (PCR) Not detected 11/13/24 13:50: WBC 10.0, RBC 3.45 L, Hgb 10.1 L, Hct 30.6 L, MCV 88.7, MCH 29.3, MCHC 33.0, RDW 12.9, Plt Count 301, MPV 9.2, Neut % (Auto) 89.9 H, Lymph % (Auto) 6.0 L, Barber % (Auto) 3.6, Eos % (Auto) 0.0 L, Baso % (Auto) 0.1, Neut # (Auto) 9.0 H, Lymph # (Auto) 0.6 L, Barber # (Auto) 0.4, Eos # (Auto) 0.0, Baso # (Auto) 0.0, Total Counted 100, Neutrophils % (Manual) 85 H, Lymphocytes % (Manual) 14, Monocytes % (Manual) 1 L, Platelet Estimate Normal, RBC Morphology Normal, Sodium 136, Potassium 3.8, Chloride 95 L, Carbon Dioxide 30, Anion Gap 14.8, BUN 14, Creatinine 0.80, Estimated Creat Clear 58, Estimated GFR 96, Est GFR ( Amer) 117, Glucose 116 H, Calcium 6.0 L, Magnesium 1.1 L, Total Bilirubin 0.4, AST 28, ALT 18, Alkaline Phosphatase 80, Troponin I < 0.01, Total Protein 6.6, Albumin 3.9, Globulin 2.7, Albumin/Globulin Ratio 1.4 11/13/24 13:55: VBG pH 7.37, VBG pCO2 43.9, VBG pO2 52.6 H, VBG HCO3 25.0, VBG Total CO2 26.3, VBG O2 Saturation 87.3 H, VBG Base Excess -0.3, VBG Lactic Acid 2.3 H 11/13/24 13:56: POC RSV Rapid Negative 11/13/24 13:50 11/13/24 13:50 Orders (Tests/Meds): ED MEDICATIONS Discontinued Medications Generic Name Dose Route Start Last Admin Trade Name Freq PRN Reason Stop Dose Admin Albuterol/Ipratropium 9 ml 11/13/24 13:42 11/13/24 14:00 Ipratropium/Albuterol 3 Ml Neb IH 11/13/24 13:43 9 ml ONCE ONE Administration Calcium Carbonate 2,000 mg 11/13/24 15:27 11/13/24 15:39 Calcium Carbonate 500mg Chewtab PO 11/13/24 15:28 2,000 mg ONCE ONE Administration Magnesium Sulfate 2 gm in 50 mls @ 50 mls/hr 11/13/24 13:43 11/13/24 14:00 Magnesium Sulfate 2gm/50ml Premix IV 11/13/24 14:42 50 mls/hr ONCE ONE Administration Iopamidol 70 ml 11/13/24 15:37 11/13/24 15:40 Iopamidol-370 (76%);100ml Bottle IV 11/13/24 15:38 70 ml ONCE ONE Administration Magnesium Oxide 800 mg 11/13/24 15:27 11/13/24 15:40 Magnesium Oxide 400mg Tablet PO 11/13/24 15:28 800 mg ONCE ONE Administration Methylprednisolone Sodium Succinate 125 mg 11/13/24 13:52 11/13/24 14:00 Methylprednisolone Sod Succ 125mg Vial IV 11/13/24 13:53 125 mg ONCE ONE Administration Sodium Chloride 50 ml 11/13/24 15:37 11/13/24 15:39 0.9 % Sodium Chloride 50 Ml Vial IV 11/13/24 15:38 50 ml ONCE ONE Administration Sodium Chloride 10 ml 11/13/24 15:37 11/13/24 15:39 Sodium Chloride 0.9% 10ml Syr (Rad Only) IV 11/13/24 15:38 10 ml ONCE ONE Administration ORDERS Category Date Time Status CT angio chest PE protocol Stat Cat Scan 11/13/24 14:16 Completed Chest XR -- portable [XR chest portable] Stat Exams 11/13/24 13:42 Completed CBC w/Auto Diff [Complete Blood Count Auto Diff] Stat Lab 11/13/24 13:50 Completed CMP [Comprehensive Metabolic Panel] Stat Lab 11/13/24 13:50 Completed Magnesium Stat Lab 11/13/24 13:50 Completed RSV Rapid Ab Screen Stat Lab 11/13/24 13:56 Completed Rapid PCR Covid and Flu A/B Stat Lab 11/13/24 13:42 Completed Trop I [Troponin I] Stat Lab 11/13/24 13:50 Completed Troponin I Q3H Lab 11/13/24 16:45 Ordered Troponin I Q3H Lab 11/13/24 19:45 Ordered VBG [Venous Blood Gas] Stat RT 11/13/24 13:55 Completed Medical Decision Narrative: In summary patient is a 69-year-old male who presents to the emergency department for evaluation of dyspnea. Patient is initially normotensive with a blood pressure 137/89 tachycardic at 105 tachypneic at 30 satting at 98% on his baseline 3 L upon arrival, and afebrile at 98.0. Physical exam reveals an expiratory wheezes on the left significantly diminished air movement on the right with accessory muscle use and increased work of breathing. Differential diagnosis includes COPD exacerbation versus PE versus infection etc. Initial workup will be conducted with hematologic labs VBG CT PE protocol plain film chest x-ray. Initial interventions include Solu-Medrol DuoNeb magnesium. Initial workup reviewed by me shows that his white count is normal however he has a calcium of 6 and a mag of 1.1 after 2 g of mag VBG shows normal pH and no hypercarbia and my informal interpretation of both his plain film chest x-ray and CT scan PE protocol does not show any evidence of acute disease prior to radiology read. Upon repeat evaluation patient is now having audible breath sounds but is still wheezing with diminished air entry. Given this had interactive discussion with the patient regarding how he feels in terms of being admitted going home and patient feels uncomfortable going home given how subjectively short of breath he still feels. Given that I had interact discussion with hospital medicine regarding patient management he will be admitted for further evaluation and care. I was consulted by the ABEBA, and we discussed the complexity of the problems being addressed. I approved the treatment and management plan for this patient's care in the emergency department, thus performing a substantive portion of the medical decision making. I agree with initial workup, CT imaging repeat evaluation pending at time of transfer of care to the oncoming physician, Dr. Ellsworth. Yadiel Richards MD <Yadiel Richards MD - Last Filed: 11/13/24 15:24> Vital Signs: 11/13/24 13:37 11/13/24 14:00 11/13/24 14:30 Temperature 97 F L Temperature Source Oral Pulse Rate 99 H 98 H Pulse Rate [Right] 105 H Respiratory Rate 30 H Blood Pressure 103/68 L 104/60 L Blood Pressure [Right Arm] 137/89 Blood Pressure Mean [Right Arm] 105 02 Sat by Pulse Oximetry 98 100 99 Oxygen Delivery Method Nasal Cannula Room Air Room Air Oxygen Flow Rate (LPM) 3 11/13/24 15:00 11/13/24 16:00 Temperature Temperature Source Pulse Rate 88 86 Pulse Rate [Right] Respiratory Rate Blood Pressure 98/61 L 124/67 Blood Pressure [Right Arm] Blood Pressure Mean [Right Arm] 02 Sat by Pulse Oximetry 99 100 Oxygen Delivery Method Nasal Cannula Nasal Cannula Oxygen Flow Rate (LPM) 3 3 Lab Data Lab Results 11/13/24 13:42: SARS-CoV-2 (PCR) Not detected, Influenza A Untype (PCR) Not detected, Influenza Type B (PCR) Not detected 11/13/24 13:50: WBC 10.0, RBC 3.45 L, Hgb 10.1 L, Hct 30.6 L, MCV 88.7, MCH 29.3, MCHC 33.0, RDW 12.9, Plt Count 301, MPV 9.2, Neut % (Auto) 89.9 H, Lymph % (Auto) 6.0 L, Barber % (Auto) 3.6, Eos % (Auto) 0.0 L, Baso % (Auto) 0.1, Neut # (Auto) 9.0 H, Lymph # (Auto) 0.6 L, Barber # (Auto) 0.4, Eos # (Auto) 0.0, Baso # (Auto) 0.0, Total Counted 100, Neutrophils % (Manual) 85 H, Lymphocytes % (Manual) 14, Monocytes % (Manual) 1 L, Platelet Estimate Normal, RBC Morphology Normal, Sodium 136, Potassium 3.8, Chloride 95 L, Carbon Dioxide 30, Anion Gap 14.8, BUN 14, Creatinine 0.80, Estimated Creat Clear 58, Estimated GFR 96, Est GFR ( Amer) 117, Glucose 116 H, Calcium 6.0 L, Magnesium 1.1 L, Total Bilirubin 0.4, AST 28, ALT 18, Alkaline Phosphatase 80, Troponin I < 0.01, Total Protein 6.6, Albumin 3.9, Globulin 2.7, Albumin/Globulin Ratio 1.4 11/13/24 13:55: VBG pH 7.37, VBG pCO2 43.9, VBG pO2 52.6 H, VBG HCO3 25.0, VBG Total CO2 26.3, VBG O2 Saturation 87.3 H, VBG Base Excess -0.3, VBG Lactic Acid 2.3 H 11/13/24 13:56: POC RSV Rapid Negative Orders (Tests/Meds): ED MEDICATIONS Discontinued Medications Generic Name Dose Route Start Last Admin Trade Name Freq PRN Reason Stop Dose Admin Albuterol/Ipratropium 9 ml 11/13/24 13:42 11/13/24 14:00 Ipratropium/Albuterol 3 Ml Neb IH 11/13/24 13:43 9 ml ONCE ONE Administration Calcium Carbonate 2,000 mg 11/13/24 15:27 11/13/24 15:39 Calcium Carbonate 500mg Chewtab PO 11/13/24 15:28 2,000 mg ONCE ONE Administration Magnesium Sulfate 2 gm in 50 mls @ 50 mls/hr 11/13/24 13:43 11/13/24 14:00 Magnesium Sulfate 2gm/50ml Premix IV 11/13/24 14:42 50 mls/hr ONCE ONE Administration Iopamidol 70 ml 11/13/24 15:37 11/13/24 15:40 Iopamidol-370 (76%);100ml Bottle IV 11/13/24 15:38 70 ml ONCE ONE Administration Magnesium Oxide 800 mg 11/13/24 15:27 11/13/24 15:40 Magnesium Oxide 400mg Tablet PO 11/13/24 15:28 800 mg ONCE ONE Administration Methylprednisolone Sodium Succinate 125 mg 11/13/24 13:52 11/13/24 14:00 Methylprednisolone Sod Succ 125mg Vial IV 11/13/24 13:53 125 mg ONCE ONE Administration Sodium Chloride 50 ml 11/13/24 15:37 11/13/24 15:39 0.9 % Sodium Chloride 50 Ml Vial IV 11/13/24 15:38 50 ml ONCE ONE Administration Sodium Chloride 10 ml 11/13/24 15:37 11/13/24 15:39 Sodium Chloride 0.9% 10ml Syr (Rad Only) IV 11/13/24 15:38 10 ml ONCE ONE Administration ORDERS Category Date Time Status CT angio chest PE protocol Stat Cat Scan 11/13/24 14:16 Completed Chest XR -- portable [XR chest portable] Stat Exams 11/13/24 13:42 Completed CBC w/Auto Diff [Complete Blood Count Auto Diff] Stat Lab 11/13/24 13:50 Completed CMP [Comprehensive Metabolic Panel] Stat Lab 11/13/24 13:50 Completed Magnesium Stat Lab 11/13/24 13:50 Completed RSV Rapid Ab Screen Stat Lab 11/13/24 13:56 Completed Rapid PCR Covid and Flu A/B Stat Lab 11/13/24 13:42 Completed Trop I [Troponin I] Stat Lab 11/13/24 13:50 Completed Troponin I Q3H Lab 11/13/24 16:45 Ordered Troponin I Q3H Lab 11/13/24 19:45 Ordered VBG [Venous Blood Gas] Stat RT 11/13/24 13:55 Completed ECG Data Tracing #1: Independently interpreted by me rate is 105, rhythm is regular, axis is normal, no ST elevation in anatomical contiguous leads, QTc 400 Medical Decision Narrative: In summary patient is a 69-year-old male who presents to the emergency department for evaluation of dyspnea. Patient is initially normotensive with a blood pressure 137/89 tachycardic at 105 tachypneic at 30 satting at 98% on his baseline 3 L upon arrival, and afebrile at 98.0. Physical exam reveals an expiratory wheezes on the left significantly diminished air movement on the right with accessory muscle use and increased work of breathing. Differential diagnosis includes COPD exacerbation versus PE versus infection etc. Initial workup will be conducted with hematologic labs VBG CT PE protocol plain film chest x-ray. Initial interventions include Solu-Medrol DuoNeb. Initial workup reviewed by me [hematologic labs are remarkable for... Imaging remarkable for... Urinalysis remarkable for]. Upon repeat evaluation [patient had acceptable resolution of symptoms, had persistent pain for which additional interventions were conducted (describe interventions), tolerated p.o., was ambulatory, etc.]. Given this [patient is appropriate for discharge at this time and will be discharged with a prescription for... The case was discussed with hospital medicine regarding management and they will admit the patient their service for continued evaluation at this time... Etc.] I was consulted by the ABEBA, and we discussed the complexity of the problems being addressed. I approved the treatment and management plan for this patient's care in the emergency department, thus performing a substantive portion of the medical decision making. I agree with initial workup, CT imaging repeat evaluation pending at time of transfer of care to the oncoming physician, Dr. Ellsworth. Yadiel Richards MD <Christopher Ellsworth MD - Last Filed: 11/13/24 16:30> Vital Signs: 11/13/24 13:37 11/13/24 14:00 11/13/24 14:30 Temperature 97 F L Temperature Source Oral Pulse Rate 99 H 98 H Pulse Rate [Right] 105 H Respiratory Rate 30 H Blood Pressure 103/68 L 104/60 L Blood Pressure [Right Arm] 137/89 Blood Pressure Mean [Right Arm] 105 02 Sat by Pulse Oximetry 98 100 99 Oxygen Delivery Method Nasal Cannula Room Air Room Air Oxygen Flow Rate (LPM) 3 11/13/24 15:00 11/13/24 16:00 Temperature Temperature Source Pulse Rate 88 86 Pulse Rate [Right] Respiratory Rate Blood Pressure 98/61 L 124/67 Blood Pressure [Right Arm] Blood Pressure Mean [Right Arm] 02 Sat by Pulse Oximetry 99 100 Oxygen Delivery Method Nasal Cannula Nasal Cannula Oxygen Flow Rate (LPM) 3 3 Lab Data Lab Results 11/13/24 13:42: SARS-CoV-2 (PCR) Not detected, Influenza A Untype (PCR) Not detected, Influenza Type B (PCR) Not detected 11/13/24 13:50: WBC 10.0, RBC 3.45 L, Hgb 10.1 L, Hct 30.6 L, MCV 88.7, MCH 29.3, MCHC 33.0, RDW 12.9, Plt Count 301, MPV 9.2, Neut % (Auto) 89.9 H, Lymph % (Auto) 6.0 L, Barber % (Auto) 3.6, Eos % (Auto) 0.0 L, Baso % (Auto) 0.1, Neut # (Auto) 9.0 H, Lymph # (Auto) 0.6 L, Barber # (Auto) 0.4, Eos # (Auto) 0.0, Baso # (Auto) 0.0, Total Counted 100, Neutrophils % (Manual) 85 H, Lymphocytes % (Manual) 14, Monocytes % (Manual) 1 L, Platelet Estimate Normal, RBC Morphology Normal, Sodium 136, Potassium 3.8, Chloride 95 L, Carbon Dioxide 30, Anion Gap 14.8, BUN 14, Creatinine 0.80, Estimated Creat Clear 58, Estimated GFR 96, Est GFR ( Amer) 117, Glucose 116 H, Calcium 6.0 L, Magnesium 1.1 L, Total Bilirubin 0.4, AST 28, ALT 18, Alkaline Phosphatase 80, Troponin I < 0.01, Total Protein 6.6, Albumin 3.9, Globulin 2.7, Albumin/Globulin Ratio 1.4 11/13/24 13:55: VBG pH 7.37, VBG pCO2 43.9, VBG pO2 52.6 H, VBG HCO3 25.0, VBG Total CO2 26.3, VBG O2 Saturation 87.3 H, VBG Base Excess -0.3, VBG Lactic Acid 2.3 H 11/13/24 13:56: POC RSV Rapid Negative Orders (Tests/Meds): ED MEDICATIONS Discontinued Medications Generic Name Dose Route Start Last Admin Trade Name Freq PRN Reason Stop Dose Admin Albuterol/Ipratropium 9 ml 11/13/24 13:42 11/13/24 14:00 Ipratropium/Albuterol 3 Ml Neb IH 11/13/24 13:43 9 ml ONCE ONE Administration Calcium Carbonate 2,000 mg 11/13/24 15:27 11/13/24 15:39 Calcium Carbonate 500mg Chewtab PO 11/13/24 15:28 2,000 mg ONCE ONE Administration Magnesium Sulfate 2 gm in 50 mls @ 50 mls/hr 11/13/24 13:43 11/13/24 14:00 Magnesium Sulfate 2gm/50ml Premix IV 11/13/24 14:42 50 mls/hr ONCE ONE Administration Iopamidol 70 ml 11/13/24 15:37 11/13/24 15:40 Iopamidol-370 (76%);100ml Bottle IV 11/13/24 15:38 70 ml ONCE ONE Administration Magnesium Oxide 800 mg 11/13/24 15:27 11/13/24 15:40 Magnesium Oxide 400mg Tablet PO 11/13/24 15:28 800 mg ONCE ONE Administration Methylprednisolone Sodium Succinate 125 mg 11/13/24 13:52 11/13/24 14:00 Methylprednisolone Sod Succ 125mg Vial IV 11/13/24 13:53 125 mg ONCE ONE Administration Sodium Chloride 50 ml 11/13/24 15:37 11/13/24 15:39 0.9 % Sodium Chloride 50 Ml Vial IV 11/13/24 15:38 50 ml ONCE ONE Administration Sodium Chloride 10 ml 11/13/24 15:37 11/13/24 15:39 Sodium Chloride 0.9% 10ml Syr (Rad Only) IV 11/13/24 15:38 10 ml ONCE ONE Administration ORDERS Category Date Time Status CT angio chest PE protocol Stat Cat Scan 11/13/24 14:16 Completed Chest XR -- portable [XR chest portable] Stat Exams 11/13/24 13:42 Completed CBC w/Auto Diff [Complete Blood Count Auto Diff] Stat Lab 11/13/24 13:50 Completed CMP [Comprehensive Metabolic Panel] Stat Lab 11/13/24 13:50 Completed Magnesium Stat Lab 11/13/24 13:50 Completed RSV Rapid Ab Screen Stat Lab 11/13/24 13:56 Completed Rapid PCR Covid and Flu A/B Stat Lab 11/13/24 13:42 Completed Trop I [Troponin I] Stat Lab 11/13/24 13:50 Completed Troponin I Q3H Lab 11/13/24 16:45 Ordered Troponin I Q3H Lab 11/13/24 19:45 Ordered VBG [Venous Blood Gas] Stat RT 11/13/24 13:55 Completed Medical Decision Narrative: In summary patient is a 69-year-old male who presents to the emergency department for evaluation of dyspnea. Patient is initially normotensive with a blood pressure 137/89 tachycardic at 105 tachypneic at 30 satting at 98% on his baseline 3 L upon arrival, and afebrile at 98.0. Physical exam reveals an expiratory wheezes on the left significantly diminished air movement on the right with accessory muscle use and increased work of breathing. Differential diagnosis includes COPD exacerbation versus PE versus infection etc. Initial workup will be conducted with hematologic labs VBG CT PE protocol plain film chest x-ray. Initial interventions include Solu-Medrol DuoNeb magnesium. Initial workup reviewed by me shows that his white count is normal however he has a calcium of 6 and a mag of 1.1 after 2 g of mag VBG shows normal pH and no hypercarbia and my informal interpretation of both his plain film chest x-ray and CT scan PE protocol does not show any evidence of acute disease prior to radiology read. Upon repeat evaluation patient is now having audible breath sounds but is still wheezing with diminished air entry. Given this had interactive discussion with the patient regarding how he feels in terms of being admitted going home and patient feels uncomfortable going home given how subjectively short of breath he still feels. Given that I had interact discussion with hospital medicine regarding patient management he will be admitted for further evaluation and care. \ I was consulted by the ABEBA, and we discussed the complexity of the problems being addressed. I approved the treatment and management plan for this patient's care in the Emergency Department, thus performing a substantive portion of the medical decision making. On my evaluation, patient still has very tight lungs. Have seen him in the past and this seems to be close to his baseline, from what I remember. Patient states that he does not feel close to his baseline and does not feel comfortable going home. Given acute respiratory failure in the setting of chronic respiratory failure, hospital medicine contacted and case was discussed. To be admitted. Christopher Ellsworth MD Critical Care <ANÍBAL Harvey - Last Filed: 11/13/24 15:57> Critical Care Time Critical Care Time: Yes Attestation: On 11/13/24, the high probability of a clinically significant, sudden or life threatening deterioration of the following system: Pulmonary; required my full and direct attention, intervention and personal management. The time I documented below is in addition to time spent performing reported procedures but includes the following listed in this critical care notation. Total Time Total Critical Care Time: 30
--- NOTE | 2024-11-13 13:42 | XR_ITS ---
PROCEDURE INFORMATION: Exam: XR Chest Exam date and time: 11/13/2024 1:50 PM Age: 69 years old Clinical indication: Dyspnea TECHNIQUE: Imaging protocol: Radiologic exam of the chest. Views: 1 view. COMPARISON: CR XR CHEST 2V 10/01/2024 12:19 AM FINDINGS: Lungs: Emphysema. No focal airspace consolidation. No pulmonary edema. Pleural spaces: No visible pleural effusion. No pneumothorax. Heart/Mediastinum: Cardiomediastinal silhouette is unchanged from prior exam. Vasculature: Right subclavian approach central venous port catheter in place with tip in the upper SVC Bones/joints: No evidence of acute osseous abnormality. IMPRESSION: No evidence of acute cardiopulmonary disease.
--- NOTE | 2024-11-13 13:45 | ECG_ITS ---
APPROVED REPORT Exam: Resting ECG HR:105 bpm ECG Measurements Heart Rate 105 AXES AK 120 P 89 QRSd 92 QRS 76 QT 339 T 70 QTc 400 Conclusion SINUS TACHYCARDIA POSSIBLE LEFT ATRIAL ENLARGEMENT [-0.1mV P-WAVE IN V1/V2] NONSPECIFIC T-WAVE ABNORMALITY ABNORMAL RHYTHM ECG Electronically signed by : LEE RHODES, 11/13/2024 15:31:28
[2024-11-13] MEDS: METHYLPREDNISOLONE SOD SUCC 125MG VIAL 125 MG IV (14:00)
[2024-11-13] MEDS: MAGNESIUM SULFATE IN WATER 2 GM/50 ML PIGGYBACK IV (14:00)
[2024-11-13] MEDS: IPRATROPIUM/ALBUTEROL 3 ML NEB 9 ML IH (14:00)
[2024-11-13 14:03] LABS: Basophils % 0.1 % (0.1-2.0); Hematocrit 30.6 % (42.0-52.0); Hemoglobin 10.1 g/dL (14.1-18.0); Lymphocytes # 0.6 K/mm3 (0.7-4.5); Mean Corpuscular Hemoglobin 29.3 pg (27.0-31.2); Mean Corpuscular Volume 88.7 fl (80-94); Mean Platelet Volume 9.2 fl (7.4-10.4); Monocytes # 0.4 K/mm3 (0.1-1.0); Monocytes % 3.6 % (1.7-9.3); Neutrophils % 89.9 % (37.0-80.0); Platelet Count 301 K/mm3 (142-424); Red Blood Count 3.45 M/mm3 (4.60-6.20); Red Cell Distribution Width 12.9 % (11.5-17.5)
[2024-11-13 14:05] LABS: Coronavirus 19, PCR Not Detected (NotDetected); Influenza A, PCR Not Detected (NotDetected); Influenza B, PCR Not Detected (NotDetected)
[2024-11-13 14:06] LABS: VBG Base Excess -0.3 mmol/L (-2.4-2.3); VBG Oxygen Saturation 87.3 % (50-70); VBG PCO2 43.9 mmol/L (35-51); VBG PH 7.37 mmol/L (7.31-7.41); VBG PO2 52.6 mmol/L (28-40); VBG Total CO2 26.3 mmol/L (23-27)
[2024-11-13 14:07] LABS: Lactate Venous 2.3 mmol/L (0.4-2.0)
[2024-11-13 14:11] LABS: MANUAL DIFFERENTIAL MANUAL DIFFERENTIAL (MANUAL DIFF)
--- NOTE | 2024-11-13 14:16 | CT_ITS ---
PROCEDURE INFORMATION: Exam: CTA Chest With Contrast Exam date and time: 11/13/2024 3:36 PM Age: 69 years old Clinical indication: Dyspnea; Additional info: Dyspnea, history of lung cancer and copd TECHNIQUE: Imaging protocol: Computed tomographic angiography of the chest with contrast. Exam focused on the arteries. 3D rendering (Not supervised by radiologist): MIP and/or 3D reconstructed images were created by the technologist. Radiation optimization: All CT scans at this facility use at least one of these dose optimization techniques: automated exposure control; mA and/or kV adjustment per patient size (includes targeted exams where dose is matched to clinical indication); or iterative reconstruction. Contrast material: ISO 370; Contrast volume: 70 ml; Contrast route: INTRAVENOUS (IV); COMPARISON: CT ANGIO CHEST PE PROTOCOL 10/01/2024 12:07 AM FINDINGS: Tubes, catheters and devices: Right subclavian approach central venous port catheter in stable position. Pulmonary arteries: No evidence of pulmonary embolism. Aorta: No evidence of thoracic aortic aneurysm or dissection. Lungs: Moderate to severe paraseptal and centrilobular emphysematous changes, not significantly progressed from prior exam. Stable appearance of right perihilar post-treatment changes. No new pulmonary mass. No evidence of acute airspace infiltrate or congestive pulmonary edema. Central airways are clear. Calcified pulmonary granuloma in the left lower lobe consistent with chronic sequelae of prior granulomatous disease, unchanged. Pleural spaces: No pneumothorax. No pleural effusion. Heart: No cardiomegaly. No pericardial effusion. Lymph nodes: Calcified mediastinal lymph nodes consistent with chronic sequelae of prior granulomatous disease, unchanged. Bones/joints: No acute osseous abnormality. Soft tissues: Unremarkable. IMPRESSION: 1. No evidence of pulmonary embolism or other acute process in the chest. 2. Chronic ancillary findings detailed above are unchanged from prior exam. COMMENTS: The presence of pulmonary emphysema on CT is an independent risk factor for lung cancer. In the absence of a history or active diagnosis of lung cancer, it is recommended that this patient with emphysema be evaluated for enrollment in a low dose CT lung cancer screening program.
[2024-11-13 14:20] LABS: Albumin Level 3.9 g/dl (3.5-5.0); Chloride 95 mmol/L (98-107); Potassium 3.8 mmoL/L (3.5-5.1); Sodium 136 mmol/L (136-145)
[2024-11-13 14:22] LABS: Alanine Aminotransferase 18 U/L (12-78); Aspartate Amino Transferase 28 U/L (17-59); Blood Urea Nitrogen 14 mg/dl (9-20); Creatinine Clearance Estimated 58 mL/min (50-200); Estimated Glomerular Filt Rate 96 ml/min (>60); GFR (African American) 117 ML/MIN (>60)
[2024-11-13 14:23] LABS: Albumin/Globulin Ratio 1.4 (1.1-1.8); Alkaline Phosphatase 80 U/L (38-126); Bilirubin,Total 0.4 mg/dl (0.2-1.3); Globulin 2.7 g/dL (1.3-3.2); Total Protein,Serum 6.6 g/dl (6.3-8.2)
[2024-11-13 14:29] LABS: Lymphocytes % 14 % (10-50); Monocytes % 1 % (2-9); Neutrophils % 85 % (42-76); Platelet Estimate Normal; RBC Morphology Normal; Total Cells Counted 100
[2024-11-13 14:37] LABS: RSV Rapid Ab Screen Negative (Negative)
[2024-11-13 14:40] LABS: Troponin I < 0.01 ng/ml (0.00-0.034)
[2024-11-13 15:22] LABS: Anion Gap 14.8 mEq/L (5-15); Carbon Dioxide 30 mmol/L (22.0-30.0)
[2024-11-13 15:23] LABS: Glucose 116 mg/dl (74-100); Magnesium 1.1 mg/dl (1.6-2.3)
[2024-11-13] MEDS: 0.9 % SODIUM CHLORIDE 50 ML VIAL IV (15:39)
[2024-11-13] MEDS: CALCIUM CARBONATE 500MG CHEWTAB 2000 MG PO (15:39)
[2024-11-13] MEDS: SODIUM CHLORIDE 0.9% 10ML SYR (RAD ONLY) 10 ML IV (15:39)
[2024-11-13] MEDS: IOPAMIDOL-370 (76%);100ML BOTTLE 70 ML IV (15:40)
[2024-11-13] MEDS: MAGNESIUM OXIDE 400MG TABLET 800 MG PO (15:40)
--- NOTE | 2024-11-13 15:51 | PC.NURSE ---
notified HS of the need for an admission bed for COPD exacerbation.
--- NOTE | 2024-11-13 16:12 | PC.NURSE ---
report called to Jody
--- NOTE | 2024-11-13 16:40 | PC.NURSE ---
arrived by stretcher from ED
[2024-11-13 18:08] LABS: Reflex Lactic Add Lactic Reflex
[2024-11-13 18:46] LABS: Lactic Acid Follow Up (RFLX 1) 1.5 mmol/L (0.7-2.1)
--- NOTE | 2024-11-13 20:52 | P.HP_ITS ---
History of Present Illness *Admission Date: 11/13/24 *Reason for visit:: COPD exacerbation *History of present illness: Alejandro Madera is a 69-year-old male with a medical history significant for COPD on 3 L at baseline who presents with progressive shortness of breath. He states he has been adherent to his Trelegy at home, and has been using his albuterol a lot more recently. Denies productive cough, chest pain, fever/chills. Workup in the ED did not show any acute findings on CBC, CMP, CXR, CTA chest however patient continued to have diminished air movement in spite of breathing treatment and steroids. Case discussed with ED provider and decision was made to admit patient for COPD exacerbation. [facility] Disclaimer: The information contained in this section may have been updated after the patient was seen, as this information can be updated by other users. Medical History Bilateral impacted cerumen Tinnitus Hearing loss Lung nodule Hilar lymphadenopathy Pneumonia Sleep apnea Emphysema/COPD Chronic cough Bronchitis Allergies History of anemia Lung collapse Nodule of right lung Tobacco abuse disorder Tobacco abuse counseling Small cell lung cancer Smoking greater than 30 pack years Chronic hypoxemic respiratory failure COPD (chronic obstructive pulmonary disease) Dyspnea on exertion On home O2 Sinus problem History of chemotherapy History of radiation therapy Personal history of arthritis History of lung disease Hyperlipemia Cancer Asthma Essential hypertension COPD exacerbation Surgical History History of insertion of tunneled central venous catheter (CVC) with port History of colonoscopy Hx of cardiac catheterization Normal coronary arteries History of sinus surgery Family History Other Cancer Diabetes Social History (Updated 10/01/24 @ 02:41 by Juliane Alva MD) Smoking Status: Current every day smoker tobacco type: cigarettes packs per day: 1 years smoked: 50 alcohol intake: former substance use type: denies use current occupational status: retired and disabled Travel in the last 8 weeks: None household members: spouse housing: house caffeine: Yes Have you lived/traveled outside [place] in past 30 days?: No Contact w/someone who lives/traveled outside [place] past 30 days?: No Exposure to someone with infectious disease in past 14 days?: No Do you have a fever (greater than 100.4 F or 38 C)?: No Have you tested positive for COVID-19: No Exposed to someone with COVID-19 in past 14 days?: No Do you have a sore throat?: No Do you have a cough?: No Do you have any weakness?: No Do you have any diarrhea?: No Are you experiencing any unusual bleeding?: No Do you have any muscle aches/pain?: No Do you have any abdominal pain?: No Are you experiencing loss of taste or smell?: No Other Medical History Have you received the Flu Vaccine for this season: Yes Have you received the Pneumonia Vaccine: Yes Meds Home Medications and Allergies Home Medications ?Medication ?Instructions ?Recorded ?Confirmed ?Type trazodone 150 mg tablet 150 mg PO HS 07/03/22 11/13/24 History aspirin 325 mg tablet 325 mg PO DAILY 05/11/23 11/13/24 History azelastine 137 mcg (0.1 %) nasal 2 spray intranasal BID 07/31/24 11/13/24 History spray ergocalciferol (vitamin D2) 1,250 50,000 unit PO WEEKLY 30 days #4 08/05/24 11/13/24 Rx mcg (50,000 unit) capsule caps nicotine 14 mg/24 hr daily 1 patch transdermal DAILY 28 days 08/05/24 11/13/24 Rx transdermal patch #28 ea nicotine (polacrilex) 4 mg buccal 4 mg buccal Q6H PRN nicotine 08/23/24 11/13/24 Rx lozenge cravings #72 ea propranolol 20 mg tablet 20 mg PO BID 08/23/24 11/13/24 History levofloxacin 750 mg tablet 750 mg PO DAILY 7 days #7 tabs 09/14/24 11/13/24 Rx prednisone 20 mg tablet 40 mg (2 x 20 mg) PO DAILY 4 days 09/14/24 09/15/24 Rx #8 tabs albuterol sulfate 90 mcg/actuation 2 inh inhalation QID PRN shortness 09/16/24 11/13/24 Rx aerosol inhaler of breath or wheezing 90 days #8.5 grams alprazolam 0.25 mg tablet 0.25 mg PO Q8HP PRN Anxiety 3 days 09/16/24 11/13/24 Rx #9 tabs fluticasone fur. 100 mcg-umeclid 1 inh inhalation DAILY 90 days 09/16/24 11/13/24 Rx 62.5 mcg-vilant 25 mcg #180 ea inhalat.powder (Trelegy Ellipta) ipratropium 0.5 mg-albuterol 3 mg 3 ml inhalation QIDP PRN Shortness 09/16/24 11/13/24 Rx (2.5 mg base)/3 mL nebulization Of Breath Or Wheezing 90 days #180 soln mL prednisone 20 mg tablet 40 mg (2 x 20 mg) PO DAILY 5 days 09/16/24 Rx #10 tabs calcium carbonate (Calcium 500) 1,000 mg (2 x 500 mg calcium 10/01/24 11/13/24 Rx (1,250 mg)) PO DAILY #10 tabs prednisone 50 mg tablet 50 mg PO DAILY 5 days #5 tabs 10/01/24 Rx New Prescriptions to Start Prescriptions: Allergies Allergy/AdvReac Type Severity Reaction Status Date / Time silver (From [facility] Allergy Severe Rash Verified 08/25/24 10:33 Mesh) doxycycline Allergy Mild Verified 08/25/24 10:33 Penicillins (PENICILLINS) Allergy Mild Verified 08/25/24 10:33 amitriptyline AdvReac Intermediate gi upset Verified 08/25/24 10:33 adhesive AdvReac Verified 08/25/24 10:33 hydrocodone AdvReac Verified 08/25/24 10:33 Exam Data for Last 24 hours Vital signs and Labs for Last 24 Hours: Temp Pulse Resp BP Pulse Ox O2 Del Method O2 Flow Rate 98.2 F 95 H 18 118/70 99 Nasal Cannula 3 11/13/24 19:52 11/13/24 19:52 11/13/24 19:52 11/13/24 19:52 11/13/24 19:52 11/13/24 19:52 11/13/24 19:52 Laboratory Results - last 24 hr 11/13/24 13:42: SARS-CoV-2 (PCR) Not detected, Influenza A Untype (PCR) Not detected, Influenza Type B (PCR) Not detected 11/13/24 13:50: WBC 10.0, RBC 3.45 L, Hgb 10.1 L, Hct 30.6 L, MCV 88.7, MCH 29.3, MCHC 33.0, RDW 12.9, Plt Count 301, MPV 9.2, Neut % (Auto) 89.9 H, Lymph % (Auto) 6.0 L, [place] % (Auto) 3.6, Eos % (Auto) 0.0 L, Baso % (Auto) 0.1, Neut # (Auto) 9.0 H, Lymph # (Auto) 0.6 L, [place] # (Auto) 0.4, Eos # (Auto) 0.0, Baso # (Auto) 0.0, Total Counted 100, Neutrophils % (Manual) 85 H, Lymphocytes % (Manual) 14, Monocytes % (Manual) 1 L, Platelet Estimate Normal, RBC Morphology Normal, Sodium 136, Potassium 3.8, Chloride 95 L, Carbon Dioxide 30, Anion Gap 14.8, BUN 14, Creatinine 0.80, Estimated Creat Clear 58, Estimated GFR 96, Est GFR ( Amer) 117, Glucose 116 H, Calcium 6.0 L, Magnesium 1.1 L, Total Bilirubin 0.4, AST 28, ALT 18, Alkaline Phosphatase 80, Troponin I < 0.01, Total Protein 6.6, Albumin 3.9, Globulin 2.7, Albumin/Globulin Ratio 1.4 11/13/24 13:55: VBG pH 7.37, VBG pCO2 43.9, VBG pO2 52.6 H, VBG HCO3 25.0, VBG Total CO2 26.3, VBG O2 Saturation 87.3 H, VBG Base Excess -0.3, VBG Lactic Acid 2.3 H 11/13/24 13:56: POC RSV Rapid Negative 11/13/24 18:20: Lactate 1.5 I & O for Last 24 hours: Intake & Output 11/10/24 11/11/24 11/12/24 11/13/24 23:59 23:59 23:59 23:59 Intake Total 300 / 300 Output Total 0 / 0 Balance 300 / 300 Weight 57.153 kg Constitutional Constitutional: no acute distress and cachectic *Routine HEENT Exam Head: Present normocephalic Eye: Present EOMI and PERRL ENT: Present mucous membranes moist *Routine Neck Exam Neck: Present supple; Absent lymphadenopathy *Routine Respiratory Exam Respiratory: Present wheezes and diminished air movement; Absent CTA bilaterally *Routine Cardiovascular Exam Cardiovascular: Present RRR *Routine Abdominal Exam Abdominal: Present soft and normoactive bowel sounds; Absent tenderness *Routine Rectal Exam Rectal:: deferred *Routine Genitalia Exam Genitalia:: deferred *Routine Extremities Exam Extremities: Absent cyanosis, clubbing or edema *Routine Skin Exam Skin: Present warm; Absent rash *Routine Neurological Exam Neurological: Present alert and oriented X3 Assessment and Plan *Assessment and plan (1) Acute exacerbation of chronic obstructive pulmonary disease: Status: Acute Category: Medical Code(s): J44.1 - Chronic obstructive pulmonary disease with (acute) exacerbation (2) Cachexia: Status: Acute Category: Medical Code(s): R64 - Cachexia Plan Alejandro Madera is a 69-year-old male with a medical history significant for COPD on 3 L at baseline who presents with progressive shortness of breath. He states he has been adherent to his Trelegy at home, and has been using his albuterol a lot more recently. Denies productive cough, chest pain, fever/chills. Workup in the ED did not show any acute findings on CBC, CMP, CXR, CTA chest however patient continued to have diminished air movement in spite of breathing treatment and steroids. Case discussed with ED provider and decision was made to admit patient for COPD exacerbation. #Chronic hypoxic respiratory failure #Acute COPD exacerbation ? Patient more comfortable on arrival to the floor, continues to have somewhat diminished air movement which may be baseline. ? CTA, CXR unremarkable for acute findings. VBG reassuring. ? DuoNebs, Pulmicort, azithromycin scheduled. ? Prednisone 40 mg day 2/5 starting tomorrow. ? Respiratory panel negative. ? Plan to restart Trelegy tomorrow. ? On baseline 3 L at this time. ? Pulmonology consulted, pending further recommendations. #Chronic tobacco smoker ? Nicotine patch daily. #Cachexia ? Ensure supplements with meals. Nutrition consulted. DNI Lovenox 30 mg
[2024-11-13] MEDS: AZITHROMYCIN 250MG TABLET 250 MG PO (21:54)
[2024-11-13] MEDS: NICOTINE 21MG/24HR PATCH 21 MG TD (21:54)
--- NOTE | 2024-11-13 22:12 | PC.NURSE ---
Patient was asking about getting a breathing treatment at this time. Respiratory was paged to inform them about the patient's request.
[2024-11-13] MEDS: BUDESONIDE 0.5MG/2ML NEB 0.5 MG IH (22:40)
[2024-11-13] MEDS: IPRATROPIUM/ALBUTEROL 3 ML NEB IH (22:40)
[2024-11-14] VITALS: O2SAT 95
--- NOTE | 2024-11-14 03:35 | PC.NURSE ---
Patient is alert and oriented x4. Patient was observed to have eyes closed, respirations even on 3 L of oxygen via nasal cannula, and no apparent distress for the majority of the night. While awake, patient was observed to have purse-lipped breathing. He explained that purse-lipped breathing is his baseline as a result of his lung cancer diagnosis. Patient also had an occasional dry cough. Overall appearance frail and sallow. He ambulates independently in his room and to/from the bathroom with no issues. A visitor has remained at the bedside this shift. Upon auscultation, diminished air movement and scattered expiratory wheezing could be heard in his lungs. Auscultation of his heart and bowels were within normal findings. He reported that his last bowel movement occurred last (11/10/23). Oxygen saturations have remained > 90% this shift; other vital signs stable. Scheduled medications were given per JAN. A new nicotine patch was applied to the left upper arm this shift. Patient has a portacath to the right chest. At this time, the patient is resting in bed with no further complaints. No acute changes noted thus far. Call light within reach.
[2024-11-14 03:55] VITALS: BP 126/66; PULSE 81; RESP 18; TEMP 36.5; O2SAT 100; BMI 16.0
[2024-11-14] MEDS: IPRATROPIUM/ALBUTEROL 3 ML NEB IH ×2 (05:41→11:03)
[2024-11-14 05:42] VITALS: PULSE 77; PULSE 82; O2SAT 99
[2024-11-14] MEDS: BUDESONIDE 0.5MG/2ML NEB 0.5 MG IH (05:42)
[2024-11-14 07:39] LABS: Hematocrit 30.3 % (42.0-52.0); Hemoglobin 9.9 g/dL (14.1-18.0); Lymphocytes # 1.1 K/mm3 (0.7-4.5); Lymphocytes % 14.5 % (10-50); Mean Corpuscular HGB Conc 32.7 g/dL (31.8-35.4); Mean Corpuscular Hemoglobin 29.4 pg (27.0-31.2); Mean Corpuscular Volume 89.9 fl (80-94); Mean Platelet Volume 9.2 fl (7.4-10.4); Monocytes # 0.7 K/mm3 (0.1-1.0); Neutrophils # 5.5 K/mm3 (1.8-7.8); Neutrophils % 75.1 % (37.0-80.0); Platelet Count 293 K/mm3 (142-424); Red Blood Count 3.37 M/mm3 (4.60-6.20); Red Cell Distribution Width 13.1 % (11.5-17.5); White Blood Count 7.3 K/mm3 (4.8-10.8)
[2024-11-14 07:54] LABS: Alanine Aminotransferase 22 U/L (12-78); Albumin Level 3.9 g/dl (3.5-5.0); Albumin/Globulin Ratio 1.6 (1.1-1.8); Alkaline Phosphatase 68 U/L (38-126); Aspartate Amino Transferase 33 U/L (17-59); Bilirubin,Total 0.3 mg/dl (0.2-1.3); Blood Urea Nitrogen 14 mg/dl (9-20); Calcium 6.2 mg/dl (8.4-10.2); Carbon Dioxide 33 mmol/L (22.0-30.0); Chloride 92 mmol/L (98-107); Creatinine Clearance Estimated 57 mL/min (50-200); Estimated Glomerular Filt Rate 112 ml/min (>60); GFR (African American) 136 ML/MIN (>60); Globulin 2.5 g/dL (1.3-3.2); Glucose 98 mg/dl (74-100); Sodium 132 mmol/L (136-145); Total Protein,Serum 6.4 g/dl (6.3-8.2)
[2024-11-14 08:00] VITALS: BP 107/65; PULSE 92; RESP 22; TEMP 36.8; O2SAT 99
--- NOTE | 2024-11-14 08:14 | HMH.PHAINT1 ---
Pharmacy Intervention Comments: Home medication list verified using LIST FROM OUTPATIENT PHARMACY AND PT INTERVIEW
[2024-11-14 08:17] LABS: Anion Gap 10.6 mEq/L (5-15); Potassium 3.6 mmoL/L (3.5-5.1)
[2024-11-14] MEDS: predniSONE 20MG TAB 40 MG PO (09:11)
[2024-11-14] MEDS: ENOXAPARIN 40MG/0.4ML SYRINGE 40 MG SUBCUT (09:12)
[2024-11-14] MEDS: AZITHROMYCIN 250MG TABLET 250 MG PO (09:12)
[2024-11-14 11:03] VITALS: PULSE 84; PULSE 88
[2024-11-14] MEDS: guaiFENesin 600 MG TAB.ER.12H PO (11:25)
[2024-11-14 13:02] VITALS: BMI 16.0
--- NOTE | 2024-11-14 13:23 | EXP.DC.SUM ---
General Admission date:: 11/13/24 HPI HPI HPI: Alejandro Madera is a 69-year-old male with a medical history significant for COPD on 3 L at baseline who presents with progressive shortness of breath. He states he has been adherent to his Trelegy at home, and has been using his albuterol a lot more recently. Denies productive cough, chest pain, fever/chills. Workup in the ED did not show any acute findings on CBC, CMP, CXR, CTA chest however patient continued to have diminished air movement in spite of breathing treatment and steroids. Case discussed with ED provider and decision was made to admit patient for COPD exacerbation. Hospital Course Hospital Course Hospital Course: Alejandro Madera is a 69-year-old male with a medical history significant for COPD on 3 L at baseline who presents with progressive shortness of breath. He states he has been adherent to his Trelegy at home, and has been using his albuterol a lot more recently. Denies productive cough, chest pain, fever/chills. Workup in the ED did not show any acute findings on CBC, CMP, CXR, CTA chest however patient continued to have diminished air movement in spite of breathing treatment and steroids. Case discussed with ED provider and decision was made to admit patient for COPD exacerbation. #Chronic hypoxic respiratory failure #Acute COPD exacerbation ? Patient more comfortable on arrival to the floor, continues to have somewhat diminished air movement which may be baseline. ? CTA, CXR unremarkable for acute findings. VBG reassuring. ? Clinically improved with DuoNebs, Pulmicort, azithromycin, prednisone. ? On baseline 3 L nasal cannula with appropriate saturations. ? Discharged with prednisone and azithromycin for 3 more days. Continue Trelegy daily. ? Will follow-up with pulmonology within 1 week. #Chronic tobacco smoker ? Nicotine patch daily. #Cachexia #Severe protein calorie malnutrition ? Nutrition consulted, given Ensure supplements with meals and provided counseling. Total time spent on discharge: 32 minutes on chart review, counseling, documentation, and direct care with patient. Exam Data for Last 24 hours Vital signs and Labs for Last 24 Hours: Temp Pulse Resp BP Pulse Ox O2 Del Method O2 Flow Rate 98.2 F 84 22 107/65 L 99 Nasal Cannula 3 11/14/24 08:00 11/14/24 11:03 11/14/24 08:00 11/14/24 08:00 11/14/24 08:00 11/14/24 09:00 11/14/24 08:00 Laboratory Results - last 24 hr 11/13/24 13:42: SARS-CoV-2 (PCR) Not detected, Influenza A Untype (PCR) Not detected, Influenza Type B (PCR) Not detected 11/13/24 13:50: WBC 10.0, RBC 3.45 L, Hgb 10.1 L, Hct 30.6 L, MCV 88.7, MCH 29.3, MCHC 33.0, RDW 12.9, Plt Count 301, MPV 9.2, Neut % (Auto) 89.9 H, Lymph % (Auto) 6.0 L, [place] % (Auto) 3.6, Eos % (Auto) 0.0 L, Baso % (Auto) 0.1, Neut # (Auto) 9.0 H, Lymph # (Auto) 0.[address] L, [place] # (Auto) 0.4, Eos # (Auto) 0.0, Baso # (Auto) 0.0, Total Counted 100, Neutrophils % (Manual) 85 H, Lymphocytes % (Manual) 14, Monocytes % (Manual) 1 L, Platelet Estimate Normal, RBC Morphology Normal, Sodium 136, Potassium 3.8, Chloride 95 L, Carbon Dioxide 30, Anion Gap 14.8, BUN 14, Creatinine 0.80, Estimated Creat Clear 58, Estimated GFR 96, Est GFR ( Amer) 117, Glucose 116 H, Calcium 6.0 L, Magnesium 1.1 L, Total Bilirubin 0.4, AST 28, ALT 18, Alkaline Phosphatase 80, Troponin I < 0.01, Total Protein 6.6, Albumin 3.9, Globulin 2.7, Albumin/Globulin Ratio 1.4 11/13/24 13:55: VBG pH 7.37, VBG pCO2 43.9, VBG pO2 52.6 H, VBG HCO3 25.0, VBG Total CO2 26.3, VBG O2 Saturation 87.3 H, VBG Base Excess -0.3, VBG Lactic Acid 2.3 H 11/13/24 13:56: POC RSV Rapid Negative 11/13/24 18:20: Lactate 1.5 11/14/24 07:15: WBC 7.3 D, RBC 3.37 L, Hgb 9.9 L, Hct 30.3 L, MCV 89.9, MCH 29.4, MCHC 32.7, RDW 13.1, Plt Count 293, MPV 9.2, Neut % (Auto) 75.1, Lymph % (Auto) 14.5, [place] % (Auto) 10.0 H, Eos % (Auto) 0.0 L, Baso % (Auto) 0.0 L, Neut # (Auto) 5.5, Lymph # (Auto) 1.1, [place] # (Auto) 0.7, Eos # (Auto) 0.0, Baso # (Auto) 0.0, Sodium 132 L, Potassium 3.6, Chloride 92 L, Carbon Dioxide 33 H, Anion Gap 10.6, BUN 14, Creatinine 0.70, Estimated Creat Clear 57, Estimated GFR 112, Est GFR ( Amer) 136, Glucose 98, Calcium 6.2 L, Magnesium 2.0 D, Total Bilirubin 0.3, AST 33, ALT 22, Alkaline Phosphatase 68, Total Protein 6.4, Albumin 3.9, Globulin 2.5, Albumin/Globulin Ratio 1.6 I & O for Last 24 hours: Intake & Output 11/11/24 11/12/24 11/13/24 11/14/24 23:59 23:59 23:59 23:59 Intake Total 300 / 500 440 / 440 Output Total 0 / 0 Balance 300 / 500 440 / 440 Weight 57.153 kg 56.69 kg Constitutional Constitutional: no acute distress *Routine HEENT Exam Head: Present normocephalic Eye: Present EOMI and PERRL ENT: Present mucous membranes moist *Routine Neck Exam Neck: Present supple; Absent lymphadenopathy *Routine Respiratory Exam Respiratory: Present CTA bilaterally *Routine Cardiovascular Exam Cardiovascular: Present RRR *Routine Abdominal Exam Abdominal: Present soft and normoactive bowel sounds; Absent tenderness *Routine Extremities Exam Extremities: Absent cyanosis, clubbing or edema *Routine Skin Exam Skin: Present warm; Absent rash *Routine Neurological Exam Neurological: Present alert and oriented X3 Results Data Completed and Pending Labs on day of discharge: Labs from last 24 hours 11/14/24 11/13/24 11/13/24 07:15 18:20 13:56 WBC 7.3 D RBC 3.37 L Hgb 9.9 L Hct 30.3 L MCV 89.9 MCH 29.4 MCHC 32.7 RDW 13.1 Plt Count 293 MPV 9.2 Neut % (Auto) 75.1 Lymph % (Auto) 14.5 [place] % (Auto) 10.0 H Eos % (Auto) 0.0 L Baso % (Auto) 0.0 L Neut # (Auto) 5.5 Lymph # (Auto) 1.1 [place] # (Auto) 0.7 Eos # (Auto) 0.0 Baso # (Auto) 0.0 Total Counted Neutrophils % (Manual) Lymphocytes % (Manual) Monocytes % (Manual) Platelet Estimate RBC Morphology VBG pH VBG pCO2 VBG pO2 VBG HCO3 VBG Total CO2 VBG O2 Saturation VBG Base Excess VBG Lactic Acid Sodium 132 L Potassium 3.6 Chloride 92 L Carbon Dioxide 33 H Anion Gap 10.6 BUN 14 Creatinine 0.70 Estimated Creat Clear 57 Estimated GFR 112 Est GFR ( Amer) 136 Glucose 98 Lactate 1.5 Calcium 6.2 L Magnesium 2.0 D Total Bilirubin 0.3 AST 33 ALT 22 Alkaline Phosphatase 68 Troponin I Total Protein 6.4 Albumin 3.9 Globulin 2.5 Albumin/Globulin Ratio 1.6 SARS-CoV-2 (PCR) Influenza A Untype (PCR) Influenza Type B (PCR) POC RSV Rapid Negative 11/13/24 11/13/24 11/13/24 13:55 13:50 13:42 WBC 10.0 RBC 3.45 L Hgb 10.1 L Hct 30.6 L MCV 88.7 MCH 29.3 MCHC 33.0 RDW 12.9 Plt Count 301 MPV 9.2 Neut % (Auto) 89.9 H Lymph % (Auto) 6.[address] [place] % (Auto) 3.6 Eos % (Auto) 0.0 L Baso % (Auto) 0.1 Neut # (Auto) 9.0 H Lymph # (Auto) 0.[address] [place] # (Auto) 0.4 Eos # (Auto) 0.0 Baso # (Auto) 0.0 Total Counted 100 Neutrophils % (Manual) 85 H Lymphocytes % (Manual) 14 Monocytes % (Manual) 1 L Platelet Estimate Normal RBC Morphology Normal VBG pH 7.37 VBG pCO2 43.9 VBG pO2 52.6 H VBG HCO3 25.0 VBG Total CO2 26.3 VBG O2 Saturation 87.3 H VBG Base Excess -0.3 VBG Lactic Acid 2.3 H Sodium 136 Potassium 3.8 Chloride 95 L Carbon Dioxide 30 Anion Gap 14.8 BUN 14 Creatinine 0.80 Estimated Creat Clear 58 Estimated GFR 96 Est GFR ( Amer) 117 Glucose 116 H Lactate Calcium 6.0 L Magnesium 1.1 L Total Bilirubin 0.4 AST 28 ALT 18 Alkaline Phosphatase 80 Troponin I < 0.01 Total Protein 6.6 Albumin 3.9 Globulin 2.7 Albumin/Globulin Ratio 1.4 SARS-CoV-2 (PCR) Not detected Influenza A Untype (PCR) Not detected Influenza Type B (PCR) Not detected POC RSV Rapid DS: Diagnosis Discharge Diagnosis (1) Acute exacerbation of chronic obstructive pulmonary disease: Status: Acute Code(s): J44.1 - Chronic obstructive pulmonary disease with (acute) exacerbation (2) Cachexia: Status: Acute Code(s): R64 - Cachexia Meds Home Medications and Allergies Home Medications ?Medication ?Instructions ?Recorded ?Confirmed ?Type trazodone 150 mg tablet 150 mg PO HS 07/03/22 11/13/24 History aspirin 325 mg tablet 325 mg PO DAILY 05/11/23 11/13/24 History azelastine 137 mcg (0.1 %) nasal 2 spray intranasal BID 07/31/24 11/13/24 History spray ergocalciferol (vitamin D2) 1,250 50,000 unit PO WEEKLY 30 days #4 08/05/24 11/13/24 Rx mcg (50,000 unit) capsule caps propranolol 20 mg tablet 20 mg PO BID 08/23/24 11/13/24 History fluticasone fur. 100 mcg-umeclid 1 inh inhalation DAILY 90 days 09/16/24 11/13/24 Rx 62.5 mcg-vilant 25 mcg #180 ea inhalat.powder (Trelegy Ellipta) ipratropium 0.5 mg-albuterol 3 mg 3 ml inhalation QIDP PRN Shortness 09/16/24 11/13/24 Rx (2.5 mg base)/3 mL nebulization Of Breath Or Wheezing 90 days #180 soln mL calcium carbonate (Calcium 500) 1,000 mg (2 x 500 mg calcium 10/01/24 11/13/24 Rx (1,250 mg)) PO DAILY #10 tabs albuterol sulfate 90 mcg/actuation 2 inh inhalation QIDP PRN 11/14/24 11/14/24 History aerosol inhaler shortness of breath or wheezing azithromycin 250 mg tablet 250 mg PO DAILY 3 days #3 tabs 11/14/24 Rx nicotine 21 mg/24 hr daily 21 mg transdermal DAILYP 30 days 11/14/24 Rx transdermal patch #30 ea polyethylene glycol 3350 17 gram 17 g PO DAILY 30 days #30 ea 11/14/24 Rx oral powder packet (HealthyLax) prednisone 20 mg tablet 40 mg (2 x 20 mg) PO DAILY 3 days 11/14/24 Rx #6 tabs New Prescriptions to Start Prescriptions: azithromycin Davis,Joshua nicotine Davis,Joshua polyethylene glycol 3350 [HealthyLax] Davis,Joshua prednisone Davis,Joshua Allergies Allergy/AdvReac Type Severity Reaction Status Date / Time silver (From [employer] Allergy Severe Rash Verified 08/25/24 10:33 Mesh) doxycycline Allergy Mild Verified 08/25/24 10:33 Penicillins (PENICILLINS) Allergy Mild Verified 08/25/24 10:33 amitriptyline AdvReac Intermediate gi upset Verified 08/25/24 10:33 adhesive AdvReac Verified 08/25/24 10:33 hydrocodone AdvReac Verified 08/25/24 10:33 Discharge Plan Disposition Patient Disposition: Home, Self-Care Condition: Fair Follow up Plan Follow up with: Napoleon Webber MD [Physician] - 11/17/24 Prescriptions/Medication Reconciliation: New polyethylene glycol 3350 [HealthyLax] 17 gram Powder In Packet 17 g PO DAILY 30 Days Qty: 30 0RF azithromycin 250 mg Tablet 250 mg PO DAILY 3 Days Qty: 3 0RF prednisone 20 mg Tablet 40 mg PO DAILY 3 Days Qty: 6 0RF nicotine 21 mg/24 hr Patch 24 Hour 21 mg transdermal DAILYP 30 Days Qty: 30 0RF Continued trazodone 150 mg tablet 150 mg PO HS propranolol 20 mg tablet 20 mg PO BID Trelegy Ellipta 100-62.5-25 mcg blister with device 1 inh inhalation DAILY 90 Days Qty: 180 3RF ipratropium-albuterol 0.5 mg-3 mg(2.5 mg base)/3 mL solution for nebulization 3 ml INHALATION QIDP PRN (Reason: Shortness Of Breath Or Wheezing) 90 Days Qty: 180 3RF ergocalciferol (vitamin D2) 1,250 mcg (50,000 unit) Capsule 50,000 unit PO WEEKLY 30 Days Qty: 4 2RF calcium carbonate [Calcium 500] 500 mg calcium (1,250 mg) tablet,chewable 1,000 mg PO DAILY Qty: 10 0RF aspirin 325 mg Tablet 325 mg PO DAILY azelastine 137 mcg (0.1 %) spray,non-aerosol 2 spray intranasal BID Patient Comments: USE 2 SPRAYS IN EACH NOSTRIL TWICE DAILY albuterol sulfate 90 mcg/actuation HFA aerosol inhaler 2 inh IH QIDP PRN (Reason: shortness of breath or wheezing) Problem Reconciliation Problems Reviewed?: Yes Patient Discharge Instructions Patient Instructions: Chronic Obstructive Pulmonary Disease, DI for Chronic Obstructive Pulmonary Disease, NCM High-Calorie High-Protein Diet, WM High Calorie High Protein Diet Recipes, High-Protein Diet Foods List, Underweight Diet Print Language: Angolan Providers Primary Care Provider: Main Carrington Provider: Joshua Cannon Attending Provider: Joshua Cannon
[2024-11-14] MEDS: PROPRANOLOL 20MG TAB 20 MG PO (13:51)
[2024-11-14] MEDS: POLYETHYLENE GLYCOL 3350 17 GM PACKET PO (13:51)
[2024-11-14] MEDS: FLUTICASONE/UMECLIDIN/VILANTER 100/62.5/25MCG INHALER 1 PUFF IH (16:00)
--- NOTE | 2024-11-15 14:33 | SW/DCPLANNER ---
Spoke with patient on the phone. Patient stated that he is doing well. Patient stated that he is aware of his upcoming appointments and that [facility] his medicine to him before being discharged. Patient stated that he has no concerns or questions at this time. Colin Wells
== END 2024-11-14 16:23 | disposition home or self-care (01) ==
LOC: ER 15:58 → 2ND 16:27
PROVIDERS: Physician Assistant; Admitting Provider Student in an Organized Health Care Education/Training Program; Emergency Provider Emergency Medicine; PCP Internal Medicine Adolescent Medicine; Visit Provider Student in an Organized Health Care Education/Training Program
DX: J44.1 Chronic obstructive pulmonary disease with (acute) exacerbation (principal); R64 Cachexia; Z68.1 Body mass index [BMI] 19.9 or less, adult; J96.11 Chronic respiratory failure with hypoxia; F17.210 Nicotine dependence, cigarettes, uncomplicated; Z99.81 Dependence on supplemental oxygen; E43 Unspecified severe protein-calorie malnutrition; C34.90 Malignant neoplasm of unspecified part of unspecified bronchus or lung; Z79.899 Other long term (current) drug therapy
CPT/HCPCS: 36415; 71045; 71275; 80053; 82803; 83605; 83735; 84484; 85007; 85025; 85027; 87636; 87807; 93005; 94640; 94760; 94761; 99291; G0378; J1642; J1650; J2919; J3475; J7620; Q9967

== ENCOUNTER 2024-11-22 07:44 | Outpatient (CLI) | payer MEDICARE, SELFPAY ==
--- NOTE | 2024-11-22 07:44 | CT_ITS ---
FINAL REPORT TECHNIQUE: Axial CT with contrast with 3-D MIP reconstruction. Coronal and sagittal reconstructions obtained and reviewed. This study was performed with techniques to keep radiation doses as low as reasonably achievable, (ALARA). Individualized dose reduction techniques using automated exposure control or adjustment of mA and/or kV according to the patient''s size were employed. CLINICAL HISTORY: lung cancer COMPARISON: CTA chest 10/01/[address] chest 05/20/2024 FINDINGS: Pulmonary vessels enhance in normal fashion without evidence of embolism. Thoracic aorta shows no dissection or aneurysm. There is a thin-walled cystic or cavitary lesion in the left upper lobe on image 22 measuring 24 x 15 mm, previously measured 18 x 18 mm, without solid component. There is a thin-walled cystic lesion of the right lower lobe on image 57 of series 4 measuring 22 x 20 mm, previously 23 x 18 mm, not significantly changed. A spiculated soft tissue density process in the right suprahilar region measuring 26 x 22 mm is not significantly changed. These measurements include pulmonary vascularity and bronchi encased within the soft tissue compatible with posttreatment fibrosis. Emphysema is noted. There is no significant pleural effusion. There is no significant pericardial effusion. No mediastinal or hilar adenopathy is present. IMPRESSION: Stable findings as above without evidence of active metastatic disease. Reviewed, Interpreted and Dictated by Brandon Greenberg MD Transcribed by Silvana Bush Authenticated and . [facility]
--- NOTE | 2024-11-22 07:44 | CT_ITS ---
FINAL REPORT TECHNIQUE: Oral and IV contrast enhanced exam. Coronal and sagittal reconstructions obtained and reviewed. This study was performed with techniques to keep radiation doses as low as reasonably achievable, (ALARA). Individualized dose reduction techniques using automated exposure control or adjustment of mA and/or kV according to the patient''s size were employed. CLINICAL HISTORY: lung cancer COMPARISON: 05/20/2024 FINDINGS: Abdomen: Small hypodense right renal lesions are likely cysts. The remaining solid organs are negative. The gallbladder is unremarkable. No bowel obstruction is present. There is no free air. No fluid collection is seen. There is no adenopathy. Pelvis: There is no mass or adenopathy. There is mild prostate enlargement. Tiny right inguinal hernia is seen containing fat. IMPRESSION: Stable exam without evidence of metastatic disease. Reviewed, Interpreted and Dictated by Brandon Greenberg MD Transcribed by Silvana Bush Authenticated and . [facility]
[2024-11-22] MEDS: SODIUM CHLORIDE 0.9% 10ML SYR (RAD ONLY) 10 ML IV (08:23)
[2024-11-22] MEDS: IOPAMIDOL-370 (76%);100ML BOTTLE 75 ML IV (08:23)
[2024-11-22] MEDS: SODIUM CHLORIDE 0.9% 10ML FLUSH SYRINGE 10 ML IV (09:23)
== END 2024-11-22 23:59 | disposition home or self-care (01) ==
LOC: RAD 07:44
PROVIDERS: PCP Internal Medicine Adolescent Medicine; Visit Provider Internal Medicine Medical Oncology
DX: C34.31 Malignant neoplasm of lower lobe, right bronchus or lung (principal); C78.7 Secondary malignant neoplasm of liver and intrahepatic bile duct
CPT/HCPCS: 71260; 74177; J1642; Q9967

== ENCOUNTER 2024-11-29 11:08 | Outpatient (CLI) | payer MEDICARE, SELFPAY ==
[2024-11-29 11:10] VITALS: BMI 18.5
[2024-11-29] MEDS: SODIUM CHLORIDE 0.9% 10ML FLUSH SYRINGE 10 ML IV (11:14)
[2024-11-29 11:38] LABS: Basophils % 0.3 % (0.1-2.0); Eosinophils # 0.2 K/mm3 (0.0-0.4); Eosinophils % 3.4 % (0.1-12.0); Hematocrit 29.9 % (42.0-52.0); Hemoglobin 9.6 g/dL (14.1-18.0); Lymphocytes # 1.3 K/mm3 (0.7-4.5); Lymphocytes % 18.3 % (10-50); Mean Corpuscular HGB Conc 32.1 g/dL (31.8-35.4); Mean Corpuscular Hemoglobin 29.8 pg (27.0-31.2); Mean Corpuscular Volume 92.9 fl (80-94); Mean Platelet Volume 9.1 fl (7.4-10.4); Monocytes # 0.7 K/mm3 (0.1-1.0); Monocytes % 9.4 % (1.7-9.3); Neutrophils # 4.9 K/mm3 (1.8-7.8); Neutrophils % 68.3 % (37.0-80.0); Platelet Count 280 K/mm3 (142-424); Red Blood Count 3.22 M/mm3 (4.60-6.20); Red Cell Distribution Width 13.5 % (11.5-17.5); Reticulocyte % (Auto) 0.8 % (0.9-3.2); White Blood Count 7.1 K/mm3 (4.8-10.8)
[2024-11-29 11:42] LABS: Alanine Aminotransferase 16 U/L (12-78); Albumin Level 3.9 g/dl (3.5-5.0); Albumin/Globulin Ratio 1.4 (1.1-1.8); Alkaline Phosphatase 91 U/L (38-126); Anion Gap 11.1 mEq/L (5-15); Aspartate Amino Transferase 26 U/L (17-59); Bilirubin,Total 0.2 mg/dl (0.2-1.3); Blood Urea Nitrogen 11 mg/dl (9-20); Calcium 6.1 mg/dl (8.4-10.2); Carbon Dioxide 31 mmol/L (22.0-30.0); Chloride 98 mmol/L (98-107); Creatinine Clearance Estimated 59 mL/min (50-200); Estimated Glomerular Filt Rate 112 ml/min (>60); GFR (African American) 136 ML/MIN (>60); Globulin 2.8 g/dL (1.3-3.2); Glucose 108 mg/dl (74-100); Lactate Dehydrogenase 212 U/L (313-618); Potassium 4.1 mmoL/L (3.5-5.1); Sodium 136 mmol/L (136-145); Total Protein,Serum 6.7 g/dl (6.3-8.2)
[2024-11-29 12:20] LABS: Ferritin 8.38 ng/ml (17.9-464)
[2024-11-29 12:52] LABS: Vitamin B12 502 pg/mL (239-931)
[2024-11-29 13:45] LABS: Iron 80 ug/dL (49-181)
[2024-11-29 13:54] LABS: Total Iron Binding Capacity 392 ug/dL (261-462)
[2024-11-30 08:13] LABS: Haptoglobin 383 mg/dL (32-363)
== END 2024-11-29 11:15 | disposition home or self-care (01) ==
LOC: INF 11:09
PROVIDERS: PCP Internal Medicine Adolescent Medicine; Visit Provider Internal Medicine Medical Oncology
DX: C78.7 Secondary malignant neoplasm of liver and intrahepatic bile duct (principal)
CPT/HCPCS: 36591; 80053; 82607; 82728; 82746; 83010; 83540; 83550; 83615; 85025; 85044; 86880; J1642

== ENCOUNTER 2025-02-24 10:08 | Outpatient (CLI) | payer MEDICARE, SELFPAY ==
[2025-02-24 10:31] LABS: Basophils % 0.3 % (0.1-2.0); Eosinophils # 0.3 Kmm3 (0.0-0.4); Eosinophils % 5.1 % (0.1-12.0); Hematocrit 34.1 % (42.0-52.0); Hemoglobin 11.3 g/dL (14.1-18.0); Lymphocytes # 1.2 K/mm3 (0.7-4.5); Lymphocytes % 19.3 % (10-50); Mean Corpuscular HGB Conc 33.1 g/dL (31.8-35.4); Mean Corpuscular Hemoglobin 30.5 pg (27.0-31.2); Mean Corpuscular Volume 92.2 fl (80-94); Mean Platelet Volume 9.3 fl (7.4-10.4); Monocytes # 0.6 K/mm3 (0.1-1.0); Monocytes % 10.2 % (1.7-9.3); Neutrophils # 3.9 K/mm3 (1.8-7.8); Neutrophils % 64.9 % (37.0-80.0); Nucleated Red Blood Cells # 0 10^3/uL; Nucleated Red Blood Cells % 0 %; Platelet Count 261 K/mm3 (142-424); Red Cell Distribution Width 13.3 % (11.5-17.5); Red Cell Distribution Width-SD 45.1 fL; White Blood Count 6.1 K/mm3 (4.8-10.8)
[2025-02-24 10:42] LABS: Albumin Level 4.3 g/dl (3.5-5.0); Chloride 95 mmol/L (98-107); Sodium 137 mmol/L (136-145)
[2025-02-24 10:43] LABS: Potassium 4.2 mmoL/L (3.5-5.1)
[2025-02-24 10:45] LABS: Alanine Aminotransferase 14 U/L (12-78); Albumin/Globulin Ratio 1.3 (1.1-1.8); Alkaline Phosphatase 74 U/L (38-126); Anion Gap 12.2 mEq/L (5-15); Aspartate Amino Transferase 28 U/L (17-59); Bilirubin,Total 0.4 mg/dl (0.2-1.3); Blood Urea Nitrogen 11 mg/dl (9-20); Carbon Dioxide 34 mmol/L (22.0-30.0); Estimated Glomerular Filt Rate 112 ml/min (>60); GFR (African American) 136 ML/MIN (>60); Globulin 3.2 g/dL (1.3-3.2); Iron 82 ug/dL (49-181); Total Protein,Serum 7.5 g/dl (6.3-8.2)
--- NOTE | 2025-02-24 10:45 | CT_ITS ---
FINAL REPORT TECHNIQUE: Routine axial images were obtained from the lung apices to below the diaphragm following IV contrast administration. Individualized dose reduction techniques using automated exposure control or adjustment of the mA and/or kV according to the patient size were employed. CLINICAL HISTORY: lung cancer, follow-up COMPARISON: 11/22/2024 FINDINGS: A right upper anterior chest port is present with the tip in the SVC. There is no mediastinal or hilar adenopathy. There is no pleural or pericardial effusion. There is a partially cavitary lesion in the right suprahilar region measuring 2.7 cm in diameter. This appears similar to the prior exam. There is an area of localized irregular linear density in the posterior left upper lobe on images 24 and 25 of series 4. This is stable from the prior exam. There are moderate advanced changes of centrilobular emphysema. IMPRESSION: Stable exam with no evidence of active metastatic disease. Reviewed, Interpreted and Dictated by Kar Bowden MD Transcribed by Kathrine Tucker Authenticated and [facility]
--- NOTE | 2025-02-24 10:45 | CT_ITS ---
FINAL REPORT TECHNIQUE: After the administration of oral and intravenous contrast, axial images were obtained through the abdomen and pelvis by computed tomography. The study was performed with techniques to keep radiation dose as low as reasonably achievable, (ALARA). Individual dose reduction techniques using automated exposure control or adjustment of mA and/or kV according to the patient's size were employed. CLINICAL HISTORY: lung cancer, follow-up COMPARISON: 11/22/2024 FINDINGS: Abdomen: The liver parenchyma is homogeneous. The gallbladder is present. The spleen, pancreas and adrenals appear unremarkable. There are small, benign-appearing cysts in the right kidney. The left kidney is unremarkable. There is a dense vascular calcification of the abdominal aorta and iliac vessels, particularly the common iliac arteries, bilaterally, stable. A large amount of retained stool is noted in the colon. There is no evidence of bowel obstruction. There is no free fluid or adenopathy. Pelvis: The appendix is not identified. The urinary bladder is incompletely distended. There is no free fluid or adenopathy. IMPRESSION: Stable exam with no evidence of metastatic disease. Constipation. Reviewed, Interpreted and Dictated by Kar Bowden MD Transcribed by Kathrine Tucker Authenticated and [facility]
[2025-02-24 10:46] LABS: Calcium 7.5 mg/dl (8.4-10.2); Glucose 109 mg/dl (74-100)
[2025-02-24 10:55] LABS: Total Iron Binding Capacity 389 ug/dL (261-462)
[2025-02-24] MEDS: SODIUM CHLORIDE 0.9% 10ML FLUSH SYRINGE 10 ML IV (11:20)
[2025-02-24 11:21] LABS: Ferritin 14.6 ng/ml (17.9-464)
[2025-02-24] MEDS: BARIUM SULFATE(READI-CAT2);450ML BOTTLE 450 ML PO (12:02)
[2025-02-24] MEDS: IOPAMIDOL-370 (76%);100ML BOTTLE 75 ML IV (12:02)
[2025-02-24] MEDS: SODIUM CHLORIDE 0.9% 10ML SYR (RAD ONLY) 10 ML IV (12:02)
== END 2025-02-24 11:20 | disposition home or self-care (01) ==
LOC: INF 10:08
PROVIDERS: PCP Internal Medicine Adolescent Medicine; Visit Provider Internal Medicine Medical Oncology
DX: C34.90 Malignant neoplasm of unspecified part of unspecified bronchus or lung (principal); C78.7 Secondary malignant neoplasm of liver and intrahepatic bile duct
CPT/HCPCS: 36591; 71260; 74177; 80053; 82728; 83540; 83550; 85025; J1642; Q9967

== ENCOUNTER 2025-02-27 10:01 | Outpatient (CLI) | payer MEDICARE, SELFPAY | END 2025-02-27 23:59 | disposition home or self-care (01) | LOC: LAB.DROPOF 04-03 10:02 | PROVIDERS: PCP Internal Medicine Adolescent Medicine; Visit Provider Internal Medicine Medical Oncology | DX: Z00.00 Encounter for general adult medical examination without abnormal findings (principal) | CPT/HCPCS: J1642 ==

== ENCOUNTER 2025-05-22 08:35 | Outpatient (CLI) | payer MEDICARE, SELFPAY ==
--- OUTSIDE RECORDS SUMMARY | 2025-02-11 17:30 | XMS_ITS ---
Author Organization [facility] PE D [facility] Address [address] [facility] [address] [place] [address] Care Team Providers Care Manager Business Management Name Role Phone Main Carrington Primary Care Provider Main Carrington Unavailable Unavailable Migration, Provider Unavailable Unavailable Allergies Allergen (clinical drug ingredient) Drug/Non Drug Allergy documented on EMR Reaction Allergy Type Onset Date Status Penicillin Unknown Drug Allergy Active REASON FOR VISIT Multum To [facility] Conversion Encounter Medications Medication SIG [...] pick correct strength-formulati on from [facility] options. If intended option is not shown, discontinue and re-order from Quick Search* Active Vitamin D (Ergocalciferol) 1.25 MG (53118 UT) 1 cap(s) orally once a week Active Ipratropium-Albutero l 0.5-2.5 (3) MG/3ML 3 mL by nebulizer 4 times a day Active Trelegy Ellipta 200 MCG-62.5 MCG-25 MCG/INH 1 PUFF(S) INHALED ONCE A DAY *Please review and pick correct strength-formulati on from [employer] options. If intended option is not shown, discontinue and re-order from Quick Search* Active Encounters Encounter Location Date Provider Diagnosis [facility] IM PED MENA 1210 [facility] 36 [facility] [address] [place] [address] 02/11/2025 Provider Migration COPD, group D, by [...] days Next Appt Details Provider Name:Main Carrington, 06/05/2025 11:00:00 AM, 1210 [facility] 36 [facility], [address], [place], [address], Progress Notes * Alejandro MADERA SDOB:[birth year] (70 yo M)Acc No.[id number]:02/11/2025 Patient: Soo Alejandro OLIVAREZ Provider: Michael pal Migration :1955 A ge:69 Y S ex:Male Date:02/11/2025 Address:[address] [place] [address] [phone] Pcp:Main Carrington Subjective: * Chief Complaints: * 1 . Multum To [facility] Conversion Encounter. * Medical History: * Medications: T aking Ferrous Sulfate 325 (65 Fe) MG Tablet 1 tab(s) orally once a day , Taking Calcium 500 MG 1 TAB TID , Notes to Pharmacist: *Please review and pick correct strength-formulation from [employer] options. If intended option is not shown, discontinue and re-order from Quick Search*, Taking Vitamin D (Ergocalciferol) 1.25 MG (63205 UT) Capsule 1 cap(s) orally once a week , Taking Ipratropium-Albuterol 0.5-2.5 (3) MG/3ML Solution 3 mL by nebulizer 4 times a day , Taking Trelegy Ellipta 200 MCG-62.5 MCG-25 MCG/INH POWDER 1 PUFF(S) INHALED ONCE A DAY , Notes to Pharmacist: *Please review and pick correct strength-formulation from [employer] options. If intended option is not shown, [...] Electronic signature of Prov ider Migration on 05/22/2025 at 08:37 AM EDT Sign off status: Pending * Provider: Michael pal Migration Date: 0 02/11/2025 Generated for Phillip smith/Leigha/Codyitting on: 0 05/22/2025 08:37 AM EDT
--- OUTSIDE RECORDS SUMMARY | 2025-05-01 06:00 | XMS_ITS ---
Author Organization [facility] Address [address] [facility] [address] [place] [address] Care Team Providers Care Reaming Machine Tender Name Role Phone Main Carrington Primary Care Provider Main Carrington Unavailable Unavailable Allergies Allergen (clinical drug ingredient) Drug/Non Drug Allergy documented on EMR Reaction Allergy Type Onset Date Status Penicillin Unknown Drug Allergy Active REASON FOR VISIT 2 month check up-states that he cannot void or have a bm x 1 month, Medicare AWV Medications Medication SIG (Take, Route, Frequency, Duration) Notes Start Date End Date Status Propranolol HCl 20 MG 1 tab(s) orally 2 times a day; Duration: 30 days 08/08/2024 Active traZODone HCl 150 MG 1 tab(s) orally onc e a day (at bedtime); Duration: 90 days Active ALBUTEROL (EQV-PROAIR HFA) 90 MCG/INH 2 PUFF(S) INHALED EVERY 6 HOURS PRN; Duration: 30 DAYS Active Azelastine HCl 137 MCG/SPRAY 2 spray(s) intranasally 2 times a day; Duration: 30 days Active Ipratropium-Albuterol 0.5-2.5 (3) MG/3ML 3 mL by nebulizer 4 times a day Active Trelegy Ellipta 200 MCG-62.5 MCG-25 MCG/INH 1 PUFF(S) INHALED ONCE A DAY Active Ferrous Sulfate 325 (65 Fe) MG 1 tab(s) orally once a day A ctive Linzess 72 MCG 1 capsule at least 3 0 minutes before the first meal of the day on an empty stomach Orally Once a day; Duration: 30 day(s) 05/01/2025 Activ e Calcium 500 MG 1 TAB TID Activ e Tamsulosin HCl 0.4 MG 1 capsule Orally O nce a day; Duration: 90 days 05/01/2025 Active Social History Tobacco Use: Social History [...] Problem Status W/U Status Risk Notes Problem Benign prostatic hyperplasia with lower urinary tract symptoms (N40.1) Active confirmed Vital Signs Temperature 97.6 degrees Fahrenheit 05/01/20 25 Heart Rate 80 /min 05/01/2025 Blood pressure systolic 122 mm Hg 05/01/20 25 Blood pressure diastolic 64 mm Hg 025 Height 5 ft 10 in in 05/01/2025 Weight 118 lbs 05/01/2025 BMI 16.93 kg/m2 05/01/2025 Encounters Encounter Location Date Provider Diagnosis [facility] [address] [facility] [address] [place] [address] 05/01/2025 Main Carrington COPD, group D, by GO LD 2017 classification J44.9 ; Acute and chronic respiratory failure with hypercapnia J96.22 ; Malignant neoplasm of unspecified part of unspecified bronchus or lung C34.90 ; Essential (primary) hypertension I10 ; Chronic constipation K59.09 ; Benign prostatic hyperplasia with lower urinary tract symptoms N40.1 ; Nocturia R35.1 and Routine medical exam Z00.00 Assessments Encounter Date Diagnosis (ICD Code) Assessment Notes Treatment Notes Treatment Clinical Notes Section Notes 05/01/2025 COPD, group D, by GOLD 2017 classification (ICD-10 - J44.9) On oxygen, remains in stage with his COPD. High risk of chronic respiratory failure. However right now seems to be stable. No changes in plan 05/01/2025 Acute and chronic respiratory failure with hypercapnia (ICD-10 - J96.22) See notes above, 05/01/2025 Malignant neoplasm of unspecified part of unspecified bronchus or lung (ICD-10 - C34.90) Follows with oncology. No need for screening of other cancers at this point 05/01/2025 Essential (primary) hypertension (ICD-10 - I10) 05/01/2025 Chronic constipation (ICD-10 - K59.09) Encouraged increased fluids. He drinks mostly coffee, trial of Linzess 05/01/2025 Benign prostatic hyperplasia with lower urinary tract symptoms (ICD-10 - N40.1) 05/01/2025 Nocturia (ICD-10 - R35.1) Symptoms consistent with BPH. Start Flomax. 05/01/2025 Routine medical exam (ICD-10 - Z00.00) Not a candidate for cancer screening given his active disease. Fall 2 days ago, fall prevention plan in place. No injury. Depression screening negative per patient. 3/3 word recall. Declines vaccinations Plan Of Treatment Medication Medication Name Sig Start Date Stop Date Notes Linzess 72 MCG 1 capsule at least 3 0 minutes before the first meal of the day on an empty stomach Orally Once a day; Duration: 30 day(s) 05/01/2025 Tamsulosin HCl 0.4 MG 1 capsule Orally O nce a day; Duration: 90 days 05/01/2025 Treatment Notes Assessment Notes COPD, group D, by GOLD 2017 classificati on On oxygen, remains in stage with his COPD. High risk of chronic respiratory failure. However right now seems to be stable. No changes in plan Acute and chronic respirator y failure with hypercapnia See notes above, Malignant neoplasm of unspec ified part of unspecified bronchus or lung Follows with oncology. No need for screening of other cancers at this point Chronic constipation Encouraged increase d fluids. He drinks mostly coffee, trial of Linzess Nocturia Symptoms consistent with BPH. Start Flomax. Routine medical exam Not a candidate for cancer screening given his active disease. Fall 2 days ago, fall prevention plan in place. No injury. Depression screening negative per patient. 3/3 word recall. Declines vaccinations Next Appt Details Follow Up: prn, Reason: Provider Name:Main Carrington, 06/05/2025 11:00:00 AM, [address], [address], [place], [address], Progress Notes * Alejandro MADERA SDOB:[birth year] (69 yo M)Acc No.[id number]:05/01/2025 Progress Notes Patient: Alejandro LEUNG Provider: Brit Carrington MD :[id number] A ge:69 Y S ex:Male Date:05/01/2025 Address:[address] [place] [address], [place], [id number] Subjective: * Chief Complaints: * 1 . 2 month check up-states that he cannot void or have a bm x 1 month. 2. Medicare AWV. * HPI: g en: Patient here to follow-up his medical problems. Overall continues to be very functional. His bowel complaints and urine complaints as noted above are little different on further questioning. He is has constipation. He is able to have bowel movements but has to use Colace and Metamucil together. He has small pellets. He feels like he has stool but cannot produce it when he is on the commode. Similarly with urine, gets up at night several times, dribbles and trickles, does not feel like he is emptying his bladder completely. In regard to Medicare annual wellness visit, I reviewed patient's HRA with him. Did fall down a couple of days ago while changing air filters in his basement, is able to get up and down the steps well, thinks he had a mechanical fall. Otherwise see notes below. * ROS: F UNCTIONAL STATUS: ADLS I ndependent for all ADL/IADL A s far as personal care. Does not drive, debilitated because of ongoing oxygen use. * Medical History: R LS, HTN, COPD, Lung/ Liver cancer, Partially Collapsed right lung, 3L oxygen. * Surgical History: p ort installed 12/2022. * Hospitalization/Major Diagno stic Procedure: [facility]- COPD EXACERBATION 06/10/24-06/12/24, [facility]- COPD , [facility]- COPD 09/2024, [facility]-COPD 11/2024. * Family History: F ather: . M other: . P aternal Grand Father: . P aternal Grand Mother: . M aternal Grand Father: . M aternal Grand Mother: . Paternal uncle: unknown. P aternal aunt: unknown. M aternal uncle: . M aternal aunt: . S selene: alive, multiple sclerosis, diagnosed with Diabetes. Chester vila: alive, diagnosed with Heart Disease, Diabetes. 5 brother(s) . 2 son(s) , 1 daughter(s) . .? * Social History: S moking A re you a: c urrent smoker, H ow often do you smoke cigarettes? e very day, H ow many cigarettes a day do you smoke? 6 -10, H ow soon after you wake up do you smoke your first cigarette? 3 1-60 min, A re you interested in quitting? R diane to quit, A dditional Findings: Tobacco User L ight cigarette smoker ((1-9 cigs/day). R ecreational drug use: no. Exercise: no. Home smoke detector use: yes. Caffeine: yes, frequency:coffee, pepsi. Living Will: No. Alcohol: socially, Type: , Frequency: ,Years: , Determination:. Sexually active: no. Travel outside [place]: no. Occupation: Retired. * Medications: T aking Ferrous Sulfate 325 (65 Fe) MG Tablet 1 tab(s) orally once a day , Taking Calcium 500 MG 1 TAB TID , Taking Ipratropium-Albuterol 0.5-2.5 (3) MG/3ML Solution 3 mL by nebulizer 4 times a day , Taking Trelegy Ellipta 200 MCG-62.5 MCG-25 MCG/INH POWDER 1 PUFF(S) INHALED ONCE A DAY , Taking ALBUTEROL (EQV-PROAIR HFA) 90 MCG/INH AEROSOL 2 PUFF(S) INHALED EVERY 6 HOURS PRN , Taking Azelastine HCl 137 MCG/SPRAY Solution 2 spray(s) intranasally 2 times a day , Taking Propranolol HCl 20 MG Tablet 1 tab(s) orally 2 times a day , Taking traZODone HCl 150 MG Tablet 1 tab(s) orally once a day (at bedtime) , Discontinued Propranolol HCl 20 MG Tablet 1 tab(s) orally 2 times a day , Medication List reviewed and reconciled with the patient * Allergies: P enicillin. Objective: * Vitals: N urse: jl, Pain: 4-head, Temp: 97.6, RR: 24, HR: 80, BP: 122/64, Ht: 5 ft 10 in, Wt: 118, BMI:16.93. * Examination: G eneral Examination: General P leasant and Cooperative, NAD on RA, Chronically ill-appearing. Oral cavity: M oist membranes. Chest: n ormal shape and expansion. Heart: R RR, No m/r/g, No edema,. Lungs: L alessandra sounds diminished diffusely, faint expiratory wheeze in all lung mcgill, otherwise no crackles or rhonchi, Good air movement,. Abdomen: S oft, non-tender, No organomegaly or peritoneal signs.. Neurologic Exam: n o focal signs neurological deficits.? Skin: w ithout acute rashes. Back: n ormal,. Psych N ormal Mood/Affect. Assessment: * Assessment: 1. C OPD, group D, by GOLD 2017 classification - J44.9 (Primary) 2 . A cute and chronic respiratory failure with hypercapnia - J96.22 3 . M alignant neoplasm of unspecified part of unspecified bronchus or lung - C34.90 4 . E ssential (primary) hypertension - I10 5 . C hronic constipation - K59.09 6 . B enign prostatic hyperplasia with lower urinary tract symptoms - N40.1 7 .?Nocturia - R35.1 8 . R outine medical exam - Z00.00 Plan: * Treatment: 2. A cute and chronic respiratory failure with hypercapnia Notes: See notes above, 3. M alignant neoplasm of unspecified part of unspecified bronchus or lung Notes: Follows with oncology. No need for screening of other cancers at this point 4. C hronic constipation Start Linzess Capsule, 72 MCG, 1 capsule at least 30 minutes before the first meal of the day on an empty stomach, Orally, Once a day, 30 day(s), 30. Notes: Encouraged increased fluids. He drinks mostly coffee, trial of Linzess 5. B enign prostatic hyperplasia with lower urinary tract symptoms Start Tamsulosin HCl Capsule, 0.4 MG, 1 capsule, Orally, Once a day, 90 days, 90 Capsule, Refills 1. 6. N octuria Notes: Symptoms consistent with BPH. Start Flomax. 7. R outine medical exam Notes: Not a candidate for cancer screening given his active disease. Fall 2 days ago, fall prevention plan in place. No injury. Depression screening negative per patient. /3 word recall. Declines vaccinations * Procedure Codes: G 0439 ANNUAL WELLNESS VST; PPS SUBSQT VST, 1170F FUNCTIONAL STATUS ASSESSMENT, 1123F ADVANCED DIRECTIVE - HAS A LIVING WILL, G9711 Colorectal screening not performed for medical reasons, G8420 BMI documented as normal, no follow up required., G8510 NEGATIVE SCREENING F/U NOT REQUIRED, G9902 Pt scrn tbco and id as user, G0030 PET MYOCARD IMAG FLW PREV PET; 1, G8752 Most recent systolic blood pressure < 140mmhg, G8754 Most recent diastolic blood pressure < 90mmhg, G9744 PATIENT NOT ELIG D/T ACTIVE DX HTN * Follow Up: p rn * * Sign off status: Completed true * Provider: Brit Carrington MD Date: 0 05/01/2025 Generated for Printi ng/Leigha/eTransmitting on: 0 05/22/2025 08:38 AM EDT History and Physical Notes * HPI (History of Present Illness) Category Sub-Category Detail Notes Category Not es gen Patient here to follow-up his medical problems. Overall continues to be very functional. His bowel complaints and urine complaints as noted above are little different on further questioning. He is has constipation. He is able to have bowel movements but has to use Colace and Metamucil together. He has small pellets. He feels like he has stool but cannot produce it when he is on the commode. Similarly with urine, gets up at night several times, dribbles and trickles, does not feel like he is emptying his bladder completely. In regard to Medicare annual wellness visit, I reviewed patient's HRA with him. Did fall down a couple of days ago while changing air filters in his basement, is able to get up and down the steps well, thinks he had a mechanical fall. Otherwise see notes below Examination Category Sub-Category Detail Notes Category Not es General Examination Heart: RRR, No m/r/g, No phyllis ma, Lungs: Lung sounds diminish ed diffusely, faint expiratory wheeze in all lung mcgill, otherwise no crackles or rhonchi, Good air movement, Abdomen: Soft, non-tender, No organomegaly or peritoneal signs. Skin: without acute rashes Neurologic Exam: no focal signs neuro logical deficits Oral cavity: Moist membranes Back: normal, Chest: normal shape and exp ansion General Pleasant and Coopera tive, NAD on RA, Chronically ill-appearing Psych Normal Mood/Affect
--- OUTSIDE RECORDS SUMMARY | 2025-05-22 08:38 | XMS_ITS | Encounter Summary ---
Author Organization [facility] Address [address] [place] [address] Care Team Providers Care Benzol Operator Name Role Phone Main Kyle MD Primary Care Provider Encounter Details Date Type Department Care Team (Late st Contact Info) Description 06/16/2019 Abstract [facility] [id number] [place] [address] Radiation Oncology, Physician, [address] [place] [address] Social History Tobacco Use Types Packs/Day Years Used Date Smoking Tobacco: Never Assessed Sex and Gender Information Value Date Recorded Sex Assigned at Not on file Legal Sex Male 8:58 PM EDT Gender Identity Not on file Sexual Orientation Not on file documented as of this encounter Plan of Treatment Not on file documented as of this encounter Visit Diagnoses Not on filedocumented in this encounter Care Teams Benzol Operator Relationship Specialty Start Date End Date Main Kyle MD [address] [place] [id number] PCP - General 03/22/21 documented as of this encounter
--- OUTSIDE RECORDS SUMMARY | 2025-05-22 08:38 | XMS_ITS | Clinical Summary ---
Author Organization [facility] Address [address] [place] [id number] Care Team Providers Care Supply Chain Business Analyst Name Role Phone Main Kyle MD Primary Care Provider Immunizations Immunization Administration Dates Next Due Influenza, Unspecified 09/08/2017 Influenza, injectable, quadrivalent, preservativ e free 09/03/2016 Influenza, seasonal, injectable 08/09/2015 Pneumococcal Conjugate PCV 13 04/15/2016 Pneumococcal, Unspecified 09/16/2017 Family History Medical History Relation Name Comments Diabetes Father Multiple sclerosis Father Other cancer Father Diabetes Mother Multiple sclerosis Mother Other cancer Mother Diabetes Sibling 1 Multiple sclerosis Sibling 2 Relation Name Status Comments Father Mother Sibling 1 Sibling 2 Social History Tobacco Use Types Packs/Day Years Used Date Smoking Tobacco: Every Day Alcohol Use Standard Drinks/Week Comments Yes 0 (1 standard drink = 0.6 oz pur e alcohol) Sex and Gender Information Value Date Recorded Sex Assigned at Not on file Legal Sex Male 8:58 PM EDT Gender Identity Not on file Sexual Orientation Not on file Last Filed Vital Signs Vital Sign Reading Time Taken Comments Blood Pressure 128/83 09/20/2020 10:03 AM EST Pulse 111 09/20/2020 10:03 AM EST Temperature 37 C (98.6 F) 09/20/2020 10:03 AM EST Respiratory Rate 18 09/20/2020 10:03 AM EST Oxygen Saturation - - Inhaled Oxygen Concentration - - Weight 65.9 kg (145 lb 4.5 oz) 09/20/2020 10:03 AM EST Height 177.8 cm (5' 10 ) 10/12/2019 12:54 PM EST Body Mass Index 20.85 10/12/2019 12:54 PM EST Plan of Treatment Health Maintenance Due Date Last Done Comments [facility]-Depression Screening 1955 [facility]-/Child/Adol SDOH Screenings 1955 [facility]- SDOH Screenings 1975 [facility]-Adult SDOH Screenings 1975 [facility]-DTaP,Tdap,and Td Vaccine s (1 - Tdap) 1976 CT Colonography 2002 Colonoscopy 2002 FIT-DNA 2002 FIT 2002 FOBT 2002 Sigmoidoscopy 2002 [facility]-Colorectal Cancer Screening 2002 [facility]-Zoster Vaccines (1 of 2) 2007 [facility]-Pneumococcal Vaccine: 50 + Years (2 of 2 - PPSV23) 04/15/2017 09/16/2017, 04/15/2016 [id number] Vaccine (1 - 2023- season) 2024 [facility]-Influenza Vaccine (#1) 07/10/202509/08, 09/03/2016, 08/09/2015 [facility]-RSV Vaccine: 60+ Years o r (1 - 1-dose 75+ series) 2032 HPV Vaccines Aged Out No longer eligi ble based on patient's age to complete this topic [facility]-HIB Vaccines Aged Out No longer e ligible based on patient's age to complete this topic [facility]-Hepatitis A Vaccines Aged Out No longer eligible based on patient's age to complete this topic [facility]-IPV Vaccines Aged Out No longer e ligible based on patient's age to complete this topic [facility]-Rotavirus Vaccines Aged Out No lo nger eligible based on patient's age to complete this topic Care Teams Supply Chain Business Analyst Relationship Specialty Start Date End Date Main Kyle MD [address] [place] [address] [place] [address] PCP - General 03/22/21
--- OUTSIDE RECORDS SUMMARY | 2025-05-22 08:38 | XMS_ITS | Patient Health Record ---
Author Organization [facility] Address [address] [place] [address] Care Team Providers Care Manager Economic Name Role Phone Main Carrington Primary Care Provider Main Carrington Unavailable Unavailable Cathie Musa Unavailable [phone] Cathie Chang Unavailable [phone] Migration, Provider Unavailable Unavailable Allergies Allergen (clinical drug ingredient) Drug/Non Drug Allergy documented on EMR Reaction Allergy Type Onset Date Status Penicillin Unknown Drug Allergy Active Results Component Value Reference Range Notes VITAMIN D,25-OH,TOTAL,IA (17 306) Reviewed date:02/22/2025 10:41:39 AM Interpretation: Performing Lab:[facility], [facility], [facility] InstituteNypsCU[address] [place] Notes/Report: NON-FASTING; NON-FASTING; NON-FASTING; NON-FASTING; NON-FAST VITAMIN D,25-OH,TOTAL,IA 74 30-100 ng/mL Vitamin D Status 25-OH Vitamin D: Deficiency: <20 ng/mL Insufficiency: 20 - 29 ng/mL Optimal: > or = 30 ng/mL For 25-OH Vitamin D testing on patients on D2-supplementation and patients for whom quantitation of D2 and D3 fractions is required, the QuestAssureD(TM) 25-OH VIT D, (D2,D3), LC/MS/MS is recommended: order code 51723 (patients >2yrs). See Note 1 Note 1 For additional information, please refer to http://Capture Media.Firecomms/faq/PSP842 (This link is being provided for informational/ educational purposes only.) VITAMIN B12/FOLATE, SERUM PA HUGH (7065) Reviewed date:02/22/2025 10:41:39 AM Interpretation: Performing Lab:MARIOLA [facility] [id number] Mob[facility], [place] [id number] [place] Notes/Report: NON-FASTING; NON-FASTING; NON-FASTING; NON-FASTING; NON-FAST VITAMIN B12 885 918-3030 pg/mL FOLATE, SERUM >24.0 Reference Range Low: <3.4 Borderline: 3.4-5.4 Normal: >5.4 CBC (INCLUDES DIFF/PLT) (639 9) Reviewed date:02/22/2025 10:41:39 AM Interpretation: Performing Lab:MARIOLA [facility] Whkm8513 [facility], [place] KnhkCY[address] [place] Notes/Report: NON-FASTING; NON-FASTING; NON-FASTING; NON-FASTING; NON-FAST WHITE BLOOD CELL COUNT 5.6 3.8-10.8 Thousand/ uL RED BLOOD CELL COUNT 3.95 4.20-5.80 Million/uL HEMOGLOBIN 12.1 13.2-17.1 g/dL HEMATOCRIT 37.3 38.5-50.0 % MCV 94.4 80.0-100.0 fL MCH 30.6 27.0-33.0 pg MCHC 32.4 32.0-36.0 g/dL For adults, a slight decrease in the calculated MCHC value (in the range of 30 to 32 g/dL) is most likely not clinically significant; however, it should be interpreted with caution in correlation with other red cell parameters and the patient's clinical condition. RDW 13.7 11.0-15.0 % PLATELET COUNT 308 140-400 Thousand/uL MPV 10.0 7.5-12.5 fL ABSOLUTE NEUTROPHILS 3640 7743-8427 cells/uL ABSOLUTE LYMPHOCYTES 3039 477-0948 cells/uL ABSOLUTE MONOCYTES 549 200-950 cells/uL ABSOLUTE EOSINOPHILS 291 15-500 cells/uL ABSOLUTE BASOPHILS 28 0-200 cells/uL NEUTROPHILS 65 LYMPHOCYTES 19.5 MONOCYTES 9.8 EOSINOPHILS 5.2 BASOPHILS 0.5 BASIC METABOLIC PANEL (36050 ) Reviewed date:12/21/2024 02:53:46 PM Interpretation: Performing Lab:MARIOLA, [place] [facility] BzsyAI[address] [place] Notes/Report: NON-FASTING GLUCOSE 86 65-99 mg/dL Fasting reference interval UREA NITROGEN (BUN) 10 7-25 mg/dL CREATININE 0.82 0.70-1.35 mg/dL EGFR 96 > OR = 60 mL/min/1.73m2 BUN/CREATININE RATIO SEE NOTE: 6- (calc) Not Reported: BUN and Creatinine are within reference range. SODIUM 142 135-146 mmol/L POTASSIUM 4.6 3.5-5.3 mmol/L CHLORIDE 97 98-110 mmol/L CARBON DIOXIDE 37 20-32 mmol/L CALCIUM 7.8 8.6-10.3 mg/dL COMPREHENSIVE METABOLIC PANE L (08897) Reviewed date:02/22/2025 10:41:38 AM Interpretation: Performing Lab:MARIOLA, [place] [employer], [employer] [id number] [place] Notes/Report: NON-FASTING; NON-FASTING; NON-FASTING; NON-FASTING; NON-FAST GLUCOSE 81 65-99 mg/dL Fasting reference interval UREA NITROGEN (BUN) 13 7-25 mg/dL CREATININE 0.73 0.70-1.35 mg/dL EGFR 100 > OR = 60 mL/min/1.73m2 BUN/CREATININE RATIO SEE NOTE: 04-30 (calc) Not Reported: BUN and Creatinine are within reference range. SODIUM 141 135-146 mmol/L POTASSIUM 4.3 3.5-5.3 mmol/L CHLORIDE 97 98-110 mmol/L CARBON DIOXIDE 34 20-32 mmol/L CALCIUM 7.9 8.6-10.3 mg/dL PROTEIN, TOTAL 6.9 6.1-8.1 g/dL ALBUMIN 4.3 3.6-5.1 g/dL GLOBULIN 2.6 1.9-3.7 g/dL (calc) ALBUMIN/GLOBULIN RATIO 1.7 1.0-2.5 (calc) BILIRUBIN, TOTAL 0.5 0.2-1.2 mg/dL ALKALINE PHOSPHATASE 76 35-144 U/L AST 17 10-35 U/L ALT 7 9-46 U/L THYROID PANEL WITH TSH (7444 ) Reviewed date:02/22/2025 10:41:38 AM Interpretation: Performing Lab:MARIOLA [address] [facility] [id number] [place] Notes/Report: NON-FASTING; NON-FASTING; NON-FASTING; NON-FASTING; NON-FAST T3 UPTAKE 28 22-35 % T4 (THYROXINE), TOTAL 7.8 4.9-10.5 mcg/dL FREE T4 INDEX (T7) 2.2 1.4-3.8 TSH 1.30 0.40-4.50 mIU/L BASIC METABOLIC PANEL (24898 ) Reviewed date:10/12/2024 08:42:36 AM Interpretation: Performing Lab:MARIOLA [address] [employer], SendTaskGyajJW[address] [place] Notes/Report: NON-FASTING; NON-FASTING GLUCOSE 80 65-99 mg/dL Fasting reference interval UREA NITROGEN (BUN) 13 7-25 mg/dL CREATININE 0.82 0.70-1.35 mg/dL EGFR 96 > OR = 60 mL/min/1.73m2 BUN/CREATININE RATIO SEE NOTE: 6-22 (calc) Not Reported: BUN and Creatinine are within reference range. SODIUM 140 135-146 mmol/L POTASSIUM 4.1 3.5-5.3 mmol/L CHLORIDE 94 98-110 mmol/L CARBON DIOXIDE 35 20-32 mmol/L CALCIUM 6.2 8.6-10.3 mg/dL VITAMIN D,25-OH,TOTAL,IA (17 306) Reviewed date:10/12/2024 08:42:36 AM Interpretation: Performing Lab:MARIOLA [address] [facility] [employer] [facility], [id number] [place] Notes/Report: NON-FASTING; NON-FASTING VITAMIN D,25-OH,TOTAL,IA 43 30-100 ng/mL Vitamin D Status 25-OH Vitamin D: Deficiency: <20 ng/mL Insufficiency: 20 - 29 ng/mL Optimal: > or = 30 ng/mL For 25-OH Vitamin D testing on patients on D2-supplementation and patients for whom quantitation of D2 and D3 fractions is required, the QuestAssureD(TM) 25-OH VIT D, (D2,D3), LC/MS/MS is recommended: order code 59652 (patients >2yrs). See Note 1 Note 1 For additional information, please refer to http://education.Firecomms/faq/AMF001 (This link is being provided for informational/ educational purposes only.) PTH, INTACT WITHOUT CALCIUM (19585) Reviewed date:10/12/2024 08:42:36 AM Interpretation: Performing Lab:MARIOLA, [facility] Lymk2626 [facility], [facility] InstituteJgezJM[address] [place] Notes/Report: NON-FASTING PARATHYROID HORMONE, INTACT <6 16-77 pg/mL Interpretive Guide Intact PTH Calcium ------- Normal Parathyroid Normal Normal Hypoparathyroidism Low or Low Normal Low Hyperparathyroidism Primary Normal or High High Secondary High Normal or Low Tertiary High High Non-Parathyroid Hypercalcemia Low or Low Normal High Reason For Referral No Information Medications Medication SIG (Take, Route, Frequency, Duration) Notes Start Date End Date Status Ipratropium-Albuterol 0.5-2.5 (3) MG/3ML 3 mL by nebulizer 4 times a day Active Linzess 145 MCG 1 capsule at least 3 0 minutes before the first meal of the day on an empty stomach Orally Once a day; Duration: 30 day(s) 05/09/2025 Activ e Trelegy Ellipta 200 MCG-62.5 MCG-25 MCG/INH 1 PUFF(S) INHALED ONCE A DAY Active Propranolol HCl 20 MG 1 tab(s) [...] times a day; Duration: 30 days Active Ferrous Sulfate 325 (65 Fe) MG 1 tab(s) orally once a day A ctive Tamsulosin HCl 0.4 MG 1 capsule Orally O nce a day; Duration: 90 days 05/01/2025 Active Calcium 500 MG 1 TAB TID Activ e Immunizations Vaccine Route Administration Date Status Comme nts Fluzone High Dose IM Intramuscular 08/12/2023 Administered Fluzone High Dose IM Intramuscular 07/18/2024 Administered Prevnar PCV-20 (Pneumococcal conjugate 20) IM Intramuscular 12/01/2022 Administered Social History Tobacco Use: Social History [...] Risk Notes Problem Malignant tumor of lung (491997895) Malignant neoplasm of unspecified part of unspecified bronchus or lung (C34.90) Active confirmed Problem Hypocalcemia (9001759) Hypocalcemia (E83.51) Active confirmed Problem Primary insomnia (1622277) Primary insomnia (F51.01) Active confirmed Problem Essential tremor (820925506) Essential tremor (G25.0) Active confirmed Problem Essential hypertension (71079312) Essential (primary) hypertension (I10) Active confirmed Problem Vasomotor rhinitis (2366141) Vasomotor rhinitis (J30.0) Active confirmed Problem Acute on chronic hypoxemic and hypercapnic respiratory failure (disorder) (24897523675163) Acute and chronic respiratory failure with hypercapnia (J96.22) Active confirmed Problem Osteoarthritis (858106285) Unspecified osteoarthritis, unspecified site (M19.90) Active confirmed Problem Nicotine dependence (68135218) Personal history of nicotine dependence (Z87.891) Active confirmed Problem Chronic obstructive pulmonary disease (28007020) 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) Active confirmed Problem Restless legs syndrome (77770622) Restless leg syndrome (G25.81) Active confirmed Problem Acute exacerbation of chronic obstructive airways disease (807346174) COPD with acute exacerbation (J44.1) Active confirmed Problem Acute exacerbation of chronic obstructive airways disease (898597696) COPD exacerbation (J44.1) Active confirmed Problem Idiopathic peripheral neuropathy (03857165) Idiopathic peripheral neuropathy (G60.9) Active confirmed Problem 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) Active confirmed Problem Cigarette smoker (36872457) Cigarette smoker (F17.210) Active confirmed Problem Tobacco dependence (03509623) Tobacco dependence (F17.200) Active confirmed Problem Oropharyngeal dysphagia (75248331) Oropharyngeal dysphagia (R13.12) Active confirmed Problem Dependence on supplemental oxygen (243416417440) Oxygen dependent (Z99.81) Active confirmed Problem Lower urinary tract symptoms due to benign prostatic hypertrophy (46011431846303) Benign prostatic hyperplasia with lower urinary tract symptoms (N40.1) Active confirmed Problem Chronic obstructive pulmonary disease (52761459) COPD, group D, by GOLD 2017 classification (J44.9) Active confirmed Vital Signs Heart Rate 80 /min 05/01/2025 Temperature 97.6 degrees Fahrenheit 05/01/2025 Blood pressure diastolic 64 mm Hg 05/01/2025 Oximetry 95 02/20/2025 02 95% on 3L NC Height 5 ft 10 in in 05/01/2025 Blood pressure systolic 122 mm Hg 05/01/2025 Weight 118 lbs 05/01/2025 BMI 16.93 kg/m2 05/01/2025 Encounters Encounter Location Date Provider Diagnosis [facility] [address] [place] [address] 02/11/2025 Provider Migration COPD, group D, by GOLD 2017 classification J44.9 [facility] [address] [place] [address] 05/31/2024 Cathie Musa COPD exacerbation J44.1 [facility] [address] [place] [address] 06/15/2024 Main Gutierrezson COPD with acute exacerbation J44.1 ; Asthma with COPD J44.9 and Hospital discharge follow-up Z09 [facility] [address] [place] [address] 07/18/2024 Main Gutierrezson Immunization(s) administered Z23 and COPD, group D, by GOLD 2017 classification J44.9 [facility] [address] [place] [address] 08/08/2024 Main Besson COPD, group D, by GO LD 2017 classification J44.9 ; Essential tremor G25.0 and Hospital discharge follow-up Z09 [facility] [address] [place] [address] 08/24/2024 Mainjad Carrington Oropharyngeal dysphagia R13.12 and COPD, group D, by GOLD 2017 classification J44.9 [facility] [address] [place] [address] 09/14/2024 Main Besson Acute and chronic respiratory failure with hypercapnia J96.22 ; COPD with acute exacerbation J44.1 ; Malignant neoplasm of unspecified part of unspecified bronchus or lung C34.90 and Essential (primary) hypertension I10 [facility] [address] [place] [address] 09/26/2024 Main Besson COPD, group D, by GO LD 2017 classification J44.9 ; Acute and chronic respiratory failure with hypercapnia J96.22 ; Malignant neoplasm of unspecified part of unspecified bronchus or lung C34.90 and Hospital discharge follow-up Z09 [facility] [address] [place] [address] 10/10/2024 Main Besson Hypocalcemia E83.51 and Hospital discharge follow-up Z09 [facility] [address] [place] [address] 10/17/2024 Main Besson Hypocalcemia E83.51 [facility] [address] [place] [address] 11/08/2024 Cathie Chang COPD exacerbation J44.1 [facility] [address] [place] [address] 11/21/2024 Main Besson COPD, group D, by GO LD 2017 classification J44.9 ; Acute and chronic respiratory failure with hypercapnia J96.22 and Hospital discharge follow-up Z09 [facility] [address] [place] [address] 12/19/2024 Main Besson Hypocalcemia E83.51 and COPD, group D, by GOLD 2017 classification J44.9 [facility] [address] [place] [address] 02/20/2025 Main Besson Idiopathic periphera l neuropathy G60.9 ; COPD, group D, by GOLD 2017 classification J44.9 and Malignant neoplasm of unspecified part of unspecified bronchus or lung C34.90 [facility] [address] [place] [address] 05/01/2025 Main Besson COPD, group D, by GO LD 2017 classification J44.9 ; Acute and chronic respiratory failure with hypercapnia J96.22 ; Malignant neoplasm of unspecified part of unspecified bronchus or lung C34.90 ; Essential (primary) hypertension I10 ; Chronic constipation K59.09 ; Benign prostatic hyperplasia with lower urinary tract symptoms N40.1 ; Nocturia R35.1 and Routine medical exam Z00.00 [facility] [address] [place] [address] 05/27/2024 Main Besson [facility] [address] [place] [address] 08/02/2024 Main Besson [facility] [address] [place] [address] 08/05/2024 Main Besson [facility] [address] [place] [address] 10/03/2024 Main Besson COPD, group D, by GO LD 2017 classification J44.9 and Acute and chronic respiratory failure with hypercapnia J96.22 [facility] [address] [place] [address] 11/14/2024 Main Besson [facility] [address] [place] [address] 04/11/2025 Main Besson Essential tremor G25 .0 [facility] [address] [facility] [address] [place] [address] 05/09/2025 Main Carrington Chronic constipation K59.09 Assessments Encounter Date Diagnosis (ICD Code) Assessment Notes Treatment Notes Treatment Clinical Notes Section Notes 05/31/2024 COPD exacerbation (ICD-10 - J44.1) [...] pulse are normal, increase propranolol slightly 08/08/2024 COPD, group D, by GOLD 2017 [...] prevent hospital admission. 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 Able to drink water in the office while I visualized him swallowing carefully. No changes in plan, dexamethasone shot to help with wheezing and stridor 08/24/2024 COPD, group D, by GOLD 2017 classification (ICD-10 - J44.9) If wheezing or oxygenation becomes worse he will go to the ER. Otherwise keep regular follow-up 09/14/2024 Acute and chronic respiratory failure with hypercapnia (ICD-10 - J96.22) 09/14/2024 COPD with acute exacerbation (ICD-10 - J44.1) - reports one week of increased shortness of breath, using duo-nebs 6x daily, rescue albuterol inahler 3-4x daily, and ran out of Trellegy inhaler one week ago - states he has had one day of worsening cough with sputum production, shortness of breath, chills, sweating, and diarrhea, denies known sick contacts - in visible increased work of breathing, tripoding on exam,breathing on baseline 3L NC supplemental O2 - wheezes and wet crackles present in left lung field, difficult to appreciate but distant breath sounds on right lung field - discussed with patient, suspect COPD exacerbation with possible community acquired pneumonia - given lung cancer history, significant respiratory distress, symptoms, provided patient transport to ED for further work up and treatment - will ensure follow up with patient to make sure he has proper inhalers, trellegy supply at home 09/26/2024 COPD, group D, by GOLD 2017 classification (ICD-10 - J44.9) Patient states he is not quite back to his baseline but feels certainly better. Was not treated with antibiotics but simply steroids. Has finished these. 10/03/2024 Acute and chronic respiratory failure with hypercapnia (ICD-10 - J96.22) 10/03/2024 COPD, group D, by GOLD 2017 classification (ICD-10 - J44.9) 10/10/2024 Hypocalcemia (ICD-10 - E83.51) - recent findings during hospitalization, calcium level was as low as 5.1 at that time - had level rechecked in ED since last visit with level at 6, was started on Calcium supplementation TID as well as Vitamin D supplementation which he has been taking since that time - no clear etiology at this time, will follow up on level today and further work up with BMP, Vitamin D and PTH levels 10/10/2024 Hospital discharge follow-up (ICD-10 - Z09) Personally reviewed ER notes, labs and follow-up recommendations and medication changes 10/17/2024 Hypocalcemia (ICD-10 - E83.51) PTH levels are undetectable. Probably from radiation damage? And resulting unusual pattern. At this point really does not want a workup much of the hypoparathyroidism given his terminal disease. Will increase calcium supplementation. I told his to get Tums tablets, and crushed him in a spoon bowl and then administer them orally rinse down with water. He will do 2 Tums tablets with meals. I will see him back in 4 to 6 weeks and redo electrolytes at that point. 11/08/2024 COPD exacerbation (ICD-10 - J44.1) Rxn of rash to PCN. Patient report Doxycycline gave him severe nausea last time he had it and declines wanting it prescribed. He is agreeable to Cefdinir and a Z aman, which he has tolerated well in the past. Discussed the etiology and expected course of COPD exacerbation. Discussed the rationale for antibiotic and prednisone use and the importance of completing the prescriptions as prescribed. Discussed to take Prednisone with food in the mornings. Continue his home inhalers and scheduled nebs. Discussed supportive care for URI. Discussed the signs and symptoms of worsening infection that may indicate need for evaluation in clinic vs ED. Patient voices understanding and is agreeable to the plan of care above. Patient discussed with Attending Dr. Carrington who agrees with the plan of care above. 11/21/2024 Acute and chronic respiratory failure with hypercapnia (ICD-10 - J96.22) Currently stable on oxygen. Very tenuous 11/21/2024 COPD, group D, by GOLD 2017 classification (ICD-10 - J44.9) Severe and end-stage. Follows with pulmonary. May be a good candidate for daily prednisone, may also be a good candidate for Roxanol. Will follow-up in 3 to 4 weeks. 12/19/2024 Hypocalcemia (ICD-10 - E83.51) Calcium 6.2 at most recent visit, has been taking medications as prescribed. Will check repeat BMP today to follow calcium trend. 12/19/2024 COPD, group D, by GOLD 2017 classification (ICD-10 - J44.9) Stable on current inhalers/therapies. Given frequent exacerbations, will start patient back on Azithromycin 3 x weekly to help prevent further exacerbations. 02/11/2025 COPD, group D, by GOLD 2017 classification (ICD-10 - J44.9) 02/20/2025 Idiopathic peripheral neuropathy (ICD-10 - G60.9) Will check labs. High risk for vitamin B12 deficiency given his poor nutrition. Check TSH also. I will reevaluate all labs personally. No indication for neuropathic pain treatment at this point 02/20/2025 COPD, group D, by GOLD 2017 classification (ICD-10 - J44.9) End-stage COPD. Sees pulmonary, on oxygen, stable at this point 04/11/2025 Essential tremor (ICD-10 - G25.0) 09/26/2024 Acute and chronic respiratory failure with hypercapnia (ICD-10 - J96.22) Patient given short-term Xanax in the hospital help with what was felt to be an anxiety component. He stopped this. He does not think it helped. He thinks it made him sleepy and did not want to eat. His corroborates this and they do not think it helped his tachypnea 05/01/2025 Acute and chronic respiratory failure with hypercapnia (ICD-10 - J96.22) See notes above, 05/01/2025 COPD, group D, by GOLD 2017 classification (ICD-10 - J44.9) On oxygen, remains in stage with his COPD. High risk of chronic respiratory failure. However right now seems to be stable. No changes in plan 05/09/2025 Chronic constipation (ICD-10 - K59.09) 05/01/2025 Malignant neoplasm of unspecified part of unspecified bronchus or lung (ICD-10 - C34.90) Follows with oncology. No need for screening of other cancers at this point 02/20/2025 Malignant neoplasm of unspecified part of unspecified bronchus or lung (ICD-10 - C34.90) Follows with oncology. Currently stable. I have reviewed all notes from oncology 11/21/2024 Hospital discharge follow-up (ICD-10 - Z09) Reviewed H&P and discharge summary, personally reconciled medications. Patient has all medications, has follow-up scheduled. Discussed with him that if anxiety worsens to let me know 09/26/2024 Malignant neoplasm of unspecified part of unspecified bronchus or lung (ICD-10 - C34.90) Has follow-up with oncology in 09/14/2024 Malignant neoplasm of unspecified part of unspecified bronchus or lung (ICD-10 - C34.90) - chronic, ongoing smoker, partial right lung collapse - complicates treatment course in setting of COPD exacerbation and suspect pneumonia 08/08/2024 Hospital discharge follow-up (ICD-10 - Z09) Please note I reviewed hospital H&P, discharge summary, personally reconciled medications 06/15/2024 Hospital discharge follow-up (ICD-10 - Z09) Reviewed discharge summary, medication reconciliation personally done by me. 09/14/2024 Essential (primary) hypertension (ICD-10 - I10) - chronic, has been well controlled prior - BP 180/100 on presentation today, denies checking BP at home - denies headaches, vision changes, chest pain, leg swelling - continue current regimen - suspect worsening due to acute illness as above, will monitor following evaluation in hospital if needing further adjustments to BP regimen 05/01/2025 Essential (primary) hypertension (ICD-10 - I10) 09/26/2024 Hospital discharge follow-up (ICD-10 - Z09) Reviewed discharge summary, H&P and personally reconciled meds. Continue routine follow-up on October05/01/2025 Chronic constipation (ICD-10 - K59.09) Encouraged increased [...] per patient. 3/3 word recall. Declines vaccinations 09/14/2024 Other Please note ernestine t I personally called the emergency department to let them know of patient's arrival and his condition in the office Plan Of Treatment Pending Test Test Name Order Date M-Complete Blood Count Auto Diff 024 M-Comprehensive Metabolic Panel 10/03/20 24 M-Magnesium 10/03/2024 Next Appt Details Provider Name:Main Carrington, 06/05/2025 11:00:00 AM, [address], [place], [address], Insurance Providers Payer Name Payer Address Payer Phone Subscriber Number Group Number Insured Name Patient Relationship to Insured Coverage Start Date Coverage End Date [employer] [address] [place] [address] [id number] Alejandro Mad[place] Self - patient is the insured Medications Administered Medication Instructions Date of Administration Dosage Notes Dexamethasone 4mg Injection 05/31/2024 4 mg Dexamethasone 4mg Injection 08/24/2024 4 mg Medical (General) History Medical History History ICD Code RLS HTN COPD Lung/ Liver cancer Partially Collapsed right lung 3L oxygen Surgical History Surgery Date(Month/Year) port installed 12/2022 Hospitalization History Reason Date(Month/Year) [facility] 11/2024 [facility] COPD 09/2024 [facility] COPD [facility] COPD EXACERBATION 06/10/24-06/12/24
[2025-05-22 09:06] LABS: Blood Urea Nitrogen 7 mg/dl (9-20); Creatinine,Serum 0.60 mg/dl (0.66-1.25); Estimated Glomerular Filt Rate 134 ml/min (>60); GFR (African American) 162 ML/MIN (>60)
--- NOTE | 2025-05-22 09:15 | CT_ITS ---
FINAL REPORT TECHNIQUE: After the administration of intravenous contrast, axial images through the chest were performed by computed tomography.This study was performed with techniques to keep radiation doses as low as reasonably achievable, (ALARA). Individualized dose reduction techniques using automated exposure control or adjustment of mA and/or kV according to the patient's size were employed. CLINICAL HISTORY: lung cancer COMPARISON: 02/24/2025 FINDINGS: There is no axillary adenopathy. There is no hilar or mediastinal adenopathy. The heart size is normal. There is no pericardial or pleural effusion. There is stable scarring in the posterior right lung apex. There is curvilinear density in the left upper lobe seen on image #24, stable. There is a spiculated soft tissue density in the right suprahilar region, consistent with postradiation change, similar to the prior exam. Advanced changes of emphysema are once again identified. Limited images of the upper abdomen are unremarkable. IMPRESSION: Stable examination, without evidence of metastatic disease. Reviewed, Interpreted and Dictated by Brandon Greenberg MD Transcribed by Gale James Authenticated and [facility]
--- NOTE | 2025-05-22 09:15 | CT_ITS ---
FINAL REPORT TECHNIQUE: Oral and IV contrast enhanced exam This study was performed with techniques to keep radiation doses as low as reasonably achievable, (ALARA). Individualized dose reduction techniques using automated exposure control or adjustment of mA and/or kV according to the patient's size were employed. CLINICAL HISTORY: lung cancer COMPARISON: 02/24/2025 FINDINGS: Abdomen: Lung bases are clear. The gallbladder is unremarkable. Liver has an unremarkable CT appearance, other than a cyst in the inferior aspect of the liver, which is stable since the prior exam. The spleen, pancreas and adrenal glands are unremarkable and stable in appearance. Kidneys demonstrate small right renal cysts, stable since the prior exam. No abdominal adenopathy is identified. The bowel in the abdomen is unremarkable as well. Pelvis: The appendix is normal in appearance. Pelvic bowel loops are unremarkable. No fluid collection or adenopathy is seen. The bladder and prostate are unremarkable. IMPRESSION: Stable exam with no evidence of metastatic disease. Reviewed, Interpreted and Dictated by Brandon Greenberg MD Transcribed by Gale James Authenticated and [facility]
[2025-05-22] MEDS: IOPAMIDOL-370 (76%);100ML BOTTLE 75 ML IV (09:21)
[2025-05-22] MEDS: SODIUM CHLORIDE 0.9% 10ML SYR (RAD ONLY) 10 ML IV (09:21)
[2025-05-22 11:21] LABS: Hematocrit 33.8 % (42.0-52.0); Hemoglobin 11.3 g/dL (14.1-18.0); Immature Granulocytes % 0.3 %; Mean Corpuscular HGB Conc 33.4 g/dL (31.8-35.4); Mean Corpuscular Hemoglobin 31.5 pg (27.0-31.2); Mean Corpuscular Volume 94.2 fl (80-94); Nucleated Red Blood Cells % 0 %; Platelet Count 294 K/mm3 (142-424); Red Blood Count 3.59 M/mm3 (4.60-6.20); Red Cell Distribution Width-SD 45.1 fL; White Blood Count 7.5 K/mm3 (4.8-10.8)
[2025-05-22 11:23] LABS: Albumin Level 4.4 g/dl (3.5-5.0); Chloride 90 mmol/L (98-107)
[2025-05-22 11:24] LABS: Potassium 3.7 mmoL/L (3.5-5.1); Sodium 136 mmol/L (136-145)
[2025-05-22 11:26] LABS: Anion Gap 15.7 mEq/L (5-15); Blood Urea Nitrogen 7 mg/dl (9-20); Carbon Dioxide 34 mmol/L (22.0-30.0); Creatinine,Serum 0.60 mg/dl (0.66-1.25); Estimated Glomerular Filt Rate 134 ml/min (>60); GFR (African American) 162 ML/MIN (>60)
[2025-05-22 11:27] LABS: Albumin/Globulin Ratio 1.4 (1.1-1.8); Alkaline Phosphatase 77 U/L (38-126); Aspartate Amino Transferase 27 U/L (17-59); Bilirubin,Total 0.4 mg/dl (0.2-1.3); Calcium 6.2 mg/dl (8.4-10.2); Globulin 3.1 g/dL (1.3-3.2); Glucose 105 mg/dl (74-100); Total Protein,Serum 7.5 g/dl (6.3-8.2)
[2025-05-22 11:28] LABS: Alanine Aminotransferase 15 U/L (12-78)
== END 2025-05-22 09:20 | disposition home or self-care (01) ==
LOC: RAD 08:36 → INF 08:46
PROVIDERS: PCP Internal Medicine Adolescent Medicine; Visit Provider Internal Medicine Medical Oncology
DX: C78.7 Secondary malignant neoplasm of liver and intrahepatic bile duct (principal); C34.90 Malignant neoplasm of unspecified part of unspecified bronchus or lung
CPT/HCPCS: 36591; 71260; 74177; 80053; 82565; 84520; 85025; J1642; Q9967

== ENCOUNTER 2025-08-03 09:47 | Outpatient (CLI) | payer MEDICARE, SELFPAY ==
--- OUTSIDE RECORDS SUMMARY | 2025-02-11 17:30 | XMS_ITS ---
Author Organization [facility] PE D [facility] Address [address] [facility] [address] [place] [address] Care Team Providers Care Supervisor Of Way Name Role Phone Main Carrington Primary Care Provider Main Carrington Unavailable Unavailable Migration, Provider Unavailable Unavailable Allergies Allergen (clinical drug ingredient) Drug/Non Drug Allergy documented on EMR Reaction Allergy Type Onset Date Status Penicillin Unknown Drug Allergy Active REASON FOR VISIT [facility] To [facility] Conversion Encounter Medications Medication SIG [...] a nd pick correct strength-formulati on from [facility] options. If intended option is not shown, discontinue and re-order from Quick Search* Active Vitamin D (Ergocalciferol) 1.25 MG (31864 UT) 1 cap(s) orally once a week Active Ipratropium-Albutero l 0.5-2.5 (3) MG/3ML 3 mL by nebulizer 4 times a day Active Trelegy Ellipta 200 MCG-62.5 MCG-25 MCG/INH 1 PUFF(S) INHALED ONCE A DAY *Please review and pick correct strength-formulati on from [employer] options. If intended option is not shown, discontinue and re-order from Quick Search* Active Encounters Encounter Location Date Provider Diagnosis [facility] IM PED MENA 1210 [facility] 36 [facility] [address] [place] [address] 02/11/2025 Provider Migration COPD, group D, by [...] days Next Appt Details Provider Name:Main Carrington, 08/21/2025 11:30:00 AM, [address] [facility] 36 [facility], [address], [place], [address], Progress Notes * Alejandro MADERA SDOB:[birth year] (70 yo M)Acc No.[id number]:02/11/2025 Patient: Soo Alejandro OLIVAREZ S Provider: Michael pal Migration :1955 A ge:69 Y S ex:Male Date:02/11/2025 Address:[address] [place] [address] [phone] Pcp:Main Carrington Subjective: * Chief Complaints: * 1 . Multum To [facility] Conversion Encounter. * Medical History: * Medications: T aking Ferrous Sulfate 325 (65 Fe) MG Tablet 1 tab(s) orally once a day , Taking Calcium 500 MG 1 TAB TID , Notes to Pharmacist: *Please review and pick correct strength-formulation from [employer] options. If intended option is not shown, discontinue and re-order from Quick Search*, Taking Vitamin D (Ergocalciferol) 1.25 MG (20499 UT) Capsule 1 cap(s) orally once a week , Taking Ipratropium-Albuterol 0.5-2.5 (3) MG/3ML Solution 3 mL by nebulizer 4 times a day , Taking Trelegy Ellipta 200 MCG-62.5 MCG-25 MCG/INH POWDER 1 PUFF(S) INHALED ONCE A DAY , Notes to Pharmacist: *Please review and pick correct strength-formulation from [employer] options. If intended option is not shown, [...] Electronic signature of Prov ider Migration on 08/03/2025 at 09:52 AM EDT Sign off status: Pending * Provider: Michael pal Migration Date: 0 02/11/2025 Generated for Phillip smith/Leigha/Codyitting on: 0 08/03/2025 09:52 AM EDT
--- OUTSIDE RECORDS SUMMARY | 2025-06-05 07:00 | XMS_ITS ---
Author Organization [facility] Address [address] [facility] [address] [place] [address] Care Team Providers Care Safety Tech Name Role Phone Main Carrington Primary Care Provider [phone] Main Carrington Unavailable Unavailable Allergies Allergen (clinical drug ingredient) Drug/Non Drug Allergy documented on EMR Reaction Allergy Type Onset Date Status Penicillin Unknown Drug Allergy Active REASON FOR VISIT 5 wk FU, states that Linzess is not working-going back and forth from constipation to diarrhea, c/obelching and clearing his throat all the time Medications Medication SIG (Take, Route, Frequency, Duration) Notes Start Date End Date Status ALBUTEROL (EQV-PROAIR HFA) 90 MCG/INH 2 PUFF(S) INHALED EVERY 6 HOURS PRN; Duration: 30 DAYS Active Ipratropium-Albuterol 0.5-2.5 (3) MG/3ML 3 mL by nebulizer 4 times a day Active Azelastine HCl 137 MCG/SPRAY 2 spray(s) intranasally 2 times a day; Duration: 30 days prn Active Propranolol HCl 20 MG 1 tab(s) orally 2 times a day; Duration: 30 days 08/08/2024 Active Ferrous Sulfate 325 (65 Fe) MG 1 tab(s) orally once a day A ctive Breztri Aerosphere 160-9-4.8 MCG/ACT 2 puffs Inhalation Twice a day Active Colace 100 MG 2 caps Orally Once a day; Duration: 30 days 06/05/2025 Active Calcium 600 MG 1 TAB oral daily Active traZODone HCl 150 MG 1 tab(s) orally onc e a day (at bedtime); Duration: 90 days Active Tamsulosin HCl 0.4 MG 1 capsule Orally [...] Problem Status W/U Status Risk Notes Problem Irritable bowel syndrome characterized by constipation (236431849) Irritable bowel syndrome with constipation (K58.1) Active confirmed Vital Signs Temperature 97.8 degrees Fahrenheit 06/05/20 25 Blood pressure systolic 122 mm Hg 06/05/20 25 Blood pressure diastolic 64 mm Hg 025 Heart Rate 98 /min 06/05/2025 Height 5 ft 10 in in 06/05/2025 Weight 116.4 lbs 06/05/2025 BMI 16.7 kg/m2 06/05/2025 Encounters Encounter Location Date Provider Diagnosis [facility] [address] [facility] [address] [place] [address] 06/05/2025 Main Carrington Irritable bowel syndrome with constipation K58.1 Assessments Encounter Date Diagnosis (ICD Code) Assessment Notes Treatment Notes Treatment Clinical Notes Section Notes 06/05/2025 Irritable bowel syndrome with constipation (ICD-10 - K58.1) Given the fact that Colace is doing well we will continue this. 2 caps daily, discussed hydration issues. Keep regular follow-up for flu shot in the fall. Plan Of Treatment Medication Medication Name Sig Start Date Stop Date Notes Colace 100 MG 2 caps Orally Once a day; Duration: 30 days 06/05/2025 Linzess 145 MCG 1 capsule at least 3 0 minutes before the first meal of the day on an empty stomach Orally Once a day 05/09/2025 Treatment Notes Assessment Notes Irritable bowel syndrome with constipati on Given the fact that Colace is doing well we will continue this. 2 caps daily, discussed hydration issues. Keep regular follow-up for flu shot in the fall. Next Appt Details Follow Up: prn, Reason: Provider Name:Mainjad Carrington, 08/21/2025 11:30:00 AM, [address], [address], [place], [address], Progress Notes * Alejandro MADERA SDOB:[birth year] (70 yo M)Acc No.[id number]:06/05/2025 Progress Notes Patient: Alejandro LEUNG Provider: Brit Carrington MD :1955 A ge:70 Y S ex:Male Date:06/05/2025 Address:[address] [place] [address], [facility], [id number] Subjective: * Chief Complaints: * 1 . 5 wk FU. 2. states that Linzess is not working-going back and forth from constipation to diarrhea. 3. C/o belching and clearing his throat all the time. * HPI: santos en: Alejandro feels about the same. Did not think Linzess was helpful as it caused watery diarrhea. He is found that taking Colace [id number]-[id number], 2 of these daily has been very helpful for his intermittent constipation. He is also try to drink more water. He adamantly declines any kind of prune or apple juice. Reports that his lungs are about the same, sees pulmonary next month, follows up with oncology in November. * Medical History: R LS, HTN, COPD, [...] alive, multiple sclerosis, diagnosed with Diabetes. [place] vlia: alive, diagnosed with Diabetes, Heart Disease. 5 brother(s) . 2 son(s) , 1 [...] outside [place]: no. Occupation: Retired. * Medications: Dionisio Vent[place] Aerosphere 160-9-4.8 MCG/ACT Aerosol 2 puffs Inhalation Twice a day , Taking Ferrous Sulfate 325 (65 Fe) MG Tablet 1 tab(s) orally once a day , Taking Calcium 600 MG Tablet 1 TAB oral daily , Taking Ipratropium-Albuterol 0.5-2.5 (3) MG/3ML Solution 3 mL by nebulizer 4 times a day , Taking ALBUTEROL (EQV-PROAIR HFA) 90 MCG/INH [...] once a day (at bedtime) , Taking Tamsulosin HCl 0.4 MG Capsule 1 capsule Orally Once a day , Taking Linzess 145 MCG Capsule 1 capsule at least 30 minutes before the first meal of the day on an empty stomach Orally Once a day , Discontinued Trelegy Ellipta 200 MCG-62.5 MCG-25 MCG/INH POWDER 1 PUFF(S) INHALED ONCE A DAY , Medication List reviewed and reconciled with the patient * Allergies: P enicillin. Objective: * Vitals: N urse: jl, Pain: 4, Temp: 97.8, RR: 26, HR: 98, BP: 122/64, Ht: 5 ft 10 in, Wt: 116.4, BMI:16.7. * Examination: G eneral Examination: General P [...] N ormal Mood/Affect. Assessment: * Assessment: 1. I rritable bowel syndrome with constipation - K58.1 (Primary) Plan: * Treatment: * Follow Up: p rn * * Sign off status: Completed true * Provider: Brit Carrington MD Date: 0 06/05/2025 Generated for Printi luis/Leigha/eTransmitting on: 0 08/03/2025 09:52 AM EDT History and Physical Notes * HPI (History of Present Illness) Category Sub-Category Detail Notes Category Not es gen Allen feels about the same. Did not think Linzess was helpful as it caused watery diarrhea. He is found that taking Colace grfs-axe-kgdkeix, 2 of these daily has been very helpful for his intermittent constipation. He is also try to drink more water. He adamantly declines any kind of prune or apple juice. Reports that his lungs are about the same, sees pulmonary next month, follows up with oncology in November Examination Category Sub-Category Detail Notes Category Not [...]
--- OUTSIDE RECORDS SUMMARY | 2025-08-01 05:45 | XMS_ITS ---
Author Organization [facility] D [facility] Address [address] [facility] [address] [place] [address] Care Team Providers Care Inspector Filter Tip Name Role Phone Main Carrington Primary Care Provider Main Carrington Unavailable Unavailable Cathie Musa Unavailable [phone] Allergies Allergen (clinical drug ingredient) Drug/Non Drug Allergy documented on EMR Reaction Allergy Type Onset Date Status Penicillin Unknown Drug Allergy Active REASON FOR VISIT Had a fall, pain [...] a day; Duration: 30 days prn Active Sheila Holtphere 160-9-4.8 MCG/ACT 2 puffs Inhalation Twice a day Active Vital Signs Temperature 97.0 degrees Fahrenheit 08/01/20 25 Blood pressure systolic 110 mm Hg 08/01/20 25 Blood pressure diastolic 76 mm Hg 025 Heart Rate 92 /min 08/01/2025 Height 5 ft 10 in in 08/01/2025 Weight 117 lbs 08/01/2025 BMI 16.79 kg/m2 08/01/2025 Oximetry 97 08/01/2025 Encounters Encounter Location Date Provider Diagnosis [facility] [address] [place] [address] 08/01/2025 Cathie Musa Acute traumatic pain G89.11 [...] every 8 hrs; Duration: 7 days 08/01/2025 Pending Test Test Name Order Date X ray : Chest 08/01/2025 X ray : Rib Series, Left 08/01/2025 Next Appt Details Follow Up: prn, Reason: Provider Name:Main Carrington, 08/21/2025 11:30:00 AM, [address], [address], [place], [address], Progress Notes * Alejandro MADERA SDOB:[birth year] (70 yo M)Acc No.[id number]:08/01/2025 Progress Notes Patient: Alejandro LEUNG Provider: ROBERTO Umaña :1955 A ge:70 Y S ex:Male Date:08/01/2025 Address:[address] [place] [address], [place], [id number] Pcp:Main Carrington Subjective: * Chief Complaints: * [...] lung, 3L oxygen. * Medications: T megg Beverlyztri Aerosphere 160-9-4.8 MCG/ACT Aerosol 2 puffs Inhalation [...] xygen dependent - Z99.81 Plan: * Treatment: ?Imaging: X ray : Rib Series, Left* Clinical Notes: JONATAN requested. Risks a/w use [...] sided chest wall pain?Imaging: X ray : Chest * ?Imaging: X ray : Rib Series, Left* 3.?Oxygen dependent?Imaging: X ray : Chest * ?Imaging: X ray : Rib Series, Left* * Follow Up: p rn * * Sign off status: Completed true * Provider: ROBERTO Umaña Date: 0 08/01/2025 Generated for Phillip smith/Leigha/Codyitting on: 0 08/03/2025 09:52 AM EDT History and Physical Notes * Examination Category [...]
--- NOTE | 2025-08-03 09:51 | XR_ITS ---
FINAL REPORT CLINICAL HISTORY: ACUTE TRAUMATIC PAIN, LT SIDE CHEST WALL PAIN, O2 DEPENDENT COMPARISON: 08/03/[address] steam cleaner 10/01/2024 FINDINGS: PA and lateral views of the chest were obtained. The heart is normal in size. A right Port-A-Cath is stable in position. There is new irregular opacity in the right upper lobe which could represent scarring or treatment related change if the patient has received radiation. Recurrent disease is not excluded. There is no pneumothorax. No acute osseous abnormality. IMPRESSION: New irregular opacity right upper lobe. Recurrent disease not excluded. No acute osseous abnormality. Reviewed, Interpreted and Dictated by Kristen Sparrow MD Transcribed by Silvana Bush Authenticated and [facility]
--- NOTE | 2025-08-03 09:51 | XR_ITS ---
FINAL REPORT CLINICAL HISTORY: .pain from fall FINDINGS: 3 views of the left ribs were obtained. There is no prior exam for comparison. There is a posterolateral left 6th rib fracture. No additional acute fracture identified. No pneumothorax is identified. IMPRESSION: Posterolateral left 6th rib fracture. Reviewed, Interpreted and Dictated by Kristen Sparrow MD Transcribed by Silvana Bush Authenticated and . [facility]
--- OUTSIDE RECORDS SUMMARY | 2025-08-03 09:53 | XMS_ITS | Encounter Summary ---
Author Organization Healthcare Address [address] [place] [address] Care Team Providers Care Hearing Dog Trainer Name Role Phone Main Kyle MD Primary Care Provider Encounter Details Date Type Department Care Team (Late st Contact Info) Description 06/16/2019 Abstract [facility] [id number] [place] [address] Radiation Oncology, Physician, [address] [place] [address] Social History Tobacco Use Types Packs/Day Years [...] on filedocumented in this encounter Care Teams Hearing Dog Trainer Relationship Specialty Start Date End Date Main Kyle MD [address] [place] [id number] PCP - General 03/22/21 documented as of this encounter
--- OUTSIDE RECORDS SUMMARY | 2025-08-03 09:53 | XMS_ITS | Clinical Summary ---
Author Organization [facility] Address [address] [place] [address] Care Team Providers Care Call Circuit Worker Name Role Phone Unavailable Primary Care Provider Unavailabl e Social History Tobacco Use Types Packs/Day Years Used Date Smoking Tobacco: Never Assessed Abuse Screen Answer Date Recorded Unsafe at Home or Work/School Not on file Feels Threatened by Someone? Not on file 08/2023 Does Anyone Keep You from Co ntacting Others or Doint Things Outside the Home? Not on file 08/18/2023 Physical Sign of Abuse Present Not on file 1 Housing Stability Answer Date Recorded Current Living Arrangements Not on file 08/09 Potentially Unsafe Housing Conditions Not on noris e 08/18/2023 Family and Community Support Answer Dalton e Recorded Help with Day-to-Day Activities Not on file 08/18/2023 Lonely or Isolated Not on file 08/18/2023 Employment Answer Date Recorded Do you want help finding or keeping work or a zeke b? Not on file 08/18/2023 Disabilities Answer Date Recorded Concentrating, Remembering, or Making Decisions Difficulty Not on file 08/18/2023 Doing Errands Independently Difficulty Not on fi le 08/18/2023 Education Answer Date Recorded Help with school or training? Not on file Preferred Language Not on file 08/18/2023 Sex and Gender Information Value Date Recorded Sex Assigned at Not on file Legal Sex Male 1:51 PM EDT Gender Identity Not on file Sexual Orientation Not on file Last Filed Vital Signs Vital Sign Reading Time Taken Comments Blood Pressure 164/107 02/19/2015 8:57 AM EDT Pulse 84 02/19/2015 8:57 AM EDT Temperature 36.8 C (98.2 F) 02/19/2015 8:57 AM EDT Respiratory Rate - - Oxygen Saturation 95% 02/19/2015 8:57 AM EDT Inhaled Oxygen Concentration - - Weight 66.7 kg (147 lb) 02/19/2015 8:57 AM EDT Height 177.8 cm (5' 10 ) 02/19/2015 8:57 AM EDT Body Mass Index 21.09 02/19/2015 8:57 AM EDT Plan of Treatment Health Maintenance Due Date Last Done Comments ANNUAL PHYSICAL 1955 HEPATITIS C SCREENING 1955 TDAP/TD VACCINES (1 - Tdap) 1976 COLOGUARD 2002 COLON CANCER SCREENING 5 YEAR SIGMOIDOSCOPY 2002 COLONOSCOPY 2002 [address] CANCER SCREENING 2002 CT COLONOGRAPHY 2002 FECAL OCCULT BLOOD TEST 2002 FIT Testing (1 year) 2002 Pneumococcal Vaccine 50+ (1 of 1 - PCV) 2007 ZOSTER VACCINE (1 of 2) 2007 INFLUENZA VACCINE 06/09/2025 COVID-19 Vaccine ( - season) 2025 AAA SCREEN ONCE Completed 02/23/2015 Procedures Procedure Name Priority Date/Time Associated Diagnosis Comments CT ANGIO ABDOMINAL AORTA BILAT ILIOFEM RUNOFF Routine 02/23/2015 1:41 PM EDT from Last 3 Months or Most Recently Relevant to Health Maintenance Results * CT ANGIO ABDOMINAL AORTA BILAT ILIOFEM RUNOFF W WO CONTRAST (02/23/2015 1:41 PM EDT) Anatomical Region Laterality Modality Lower Extremities, Foot N/A Computed Tomography 02/23/2015 1:41 PM EDT Narrative 02/23/2015 6:59 PM EDT EXAMINATION: OC-ANG ABD AORTA JOSESITO LOW EXT WO W- INDICATION: Peripheral arterial disease. TECHNIQUE: Multiple axial CT imaging is obtained of the abdomen and pelvis and lower extremities pre and post administration of intravenous contrast. 3D reformatted images were submitted to further facilitate diagnostic accuracy and treatment planning. Coronal and sagittal reformatted images are also available for evaluation. The radiation dose reduction device was turned on for each scan per the ALARA (As Low as Reasonably Achievable) protocol. COMPARISON: NONE. FINDINGS: ABDOMEN: A large calcified granuloma identified at the left lung base. The liver is homogeneous in appearance. The gallbladder reveals no definite stones with mild contraction. The pancreas is homogeneous in appearance. The spleen is unremarkable. The abdominal portion of the gastrointestinal tract is within normal limits. Both adrenal glands are unremarkable as well as the kidneys. Tiny renal cortical cysts are seen within the right kidney. No abdominal or retroperitoneal lymphadenopathy is seen. No free fluid or free air. No abnormal mass or fluid collection is identified. PELVIS: The pelvic organs are unremarkable in appearance. The pelvic portion of the gastrointestinal tract is within normal limits. Appendix is radiographically normal in appearance. No free fluid or free air. No abnormal mass or fluid collection is identified. No pelvic adenopathy. Bony structures reveal degenerative changes seen within the spine and pelvis. There is atherosclerotic disease identified within the abdominal aorta. Mesenteric vessels reveal no significant stenosis identified at the origin. There is atherosclerotic disease identified of the origin the celiac artery. The renal vessels reveals single renal arteries bilaterally. MARIELY is patent. There is atherosclerotic disease identified within the distal abdominal aorta and common iliac arteries bilaterally. Calcification is well seen within the external iliac arteries however no significant stenosis is identified. The external iliac arteries are smaller in caliber for patient's age. Both the common femoral arteries are patent bilaterally with no significant stenosis. The superficial femoral arteries reveal no significant atherosclerotic disease. Superficial femoral arteries are patent bilaterally as well as the popliteal vessels. There is no significant abnormality seen within the trifurcation vessels. There is a three-vessel runoff identified to the ankles bilaterally. IMPRESSION- Atherosclerotic disease involving the distal abdominal aorta and iliac vessels bilaterally as described above with no significant stenosis present. The bilateral lower extremity runoff is grossly unremarkable. Some atherosclerotic plaque is seen within the common femoral arteries however no significant stenosis is seen within the superficial femoral arteries, popliteal arteries with a three-vessel runoff to the ankles bilaterally. DICTATED: 02/23/2015 EDITED: 02/23/2015 Reading Radiologist- ADRIENNE ESTRADA Releasing Radiologist- ADRIENNE ETSRADA Released Date Time- 02/24/15 1234 Unarmed Security Officer- LJosefina Procedure Note Adrienne Avendaño MD - 07/31/2015 EXAMINATION: OC-ANG ABD AORTA JOSESITO LOW EXT WO W- INDICATION: Peripheral arterial disease. TECHNIQUE: Multiple axial CT imaging is obtained of the abdomen and pelvis and lower extremities pre and post administration of intravenous contrast. 3D reformatted images were submitted to further facilitate diagnostic accuracy and treatment planning. Coronal and sagittal reformatted images are also available for evaluation. The radiation dose reduction device was turned on for each scan per the ALARA (As Low as Reasonably Achievable) protocol. COMPARISON: NONE. FINDINGS: ABDOMEN: A large calcified granuloma identified at the left lung base. The liver is homogeneous in appearance. The gallbladder reveals no definite stones with mild contraction. The pancreas is homogeneous in appearance. The spleen is unremarkable. The abdominal portion of the gastrointestinal tract is within normal limits. Both adrenal glands are unremarkable as well as the kidneys. Tiny renal cortical cysts are seen within the right kidney. No abdominal or retroperitoneal lymphadenopathy is seen. No free fluid or free air. No abnormal mass or fluid collection is identified. PELVIS: The pelvic organs are unremarkable in appearance. The pelvic portion of the gastrointestinal tract is within normal limits. Appendix is radiographically normal in appearance. No free fluid or free air. No abnormal mass or fluid collection is identified. No pelvic adenopathy. Bony structures reveal degenerative changes seen within the spine and pelvis. There is atherosclerotic disease identified within the abdominal aorta. Mesenteric vessels reveal no significant stenosis identified at the origin. There is atherosclerotic disease identified of the origin the celiac artery. The renal vessels reveals single renal arteries bilaterally. MARIELY is patent. There is atherosclerotic disease identified within the distal abdominal aorta and common iliac arteries bilaterally. Calcification is well seen within the external iliac arteries however no significant stenosis is identified. The external iliac arteries are smaller in caliber for patient's age. Both the common femoral arteries are patent bilaterally with no significant stenosis. The superficial femoral arteries reveal no significant atherosclerotic disease. Superficial femoral arteries are patent bilaterally as well as the popliteal vessels. There is no significant abnormality seen within the trifurcation vessels. There is a three-vessel runoff identified to the ankles bilaterally. IMPRESSION- Atherosclerotic disease involving the distal abdominal aorta and iliac vessels bilaterally as described above with no significant stenosis present. The bilateral lower extremity runoff is grossly unremarkable. Some atherosclerotic plaque is seen within the common femoral arteries however no significant stenosis is seen within the superficial femoral arteries, popliteal arteries with a three-vessel runoff to the ankles bilaterally. DICTATED: 02/23/2015 EDITED: 02/23/2015 Reading Radiologist- ADRIENNE ESTRADA Releasing Radiologist- ADRIENNE ESTRADA Released Date Time- 02/24/15 1234 Unarmed Security Officer- Sariah us Talha Carrasco MD IMG CT ORDERABLES Final Res ult from Last 3 Months or Most Recently Relevant to Health Maintenance
--- OUTSIDE RECORDS SUMMARY | 2025-08-03 09:53 | XMS_ITS | Patient Health Record ---
Author Organization [facility] Address [address] [place] [facility] [address] [facility] [address] [place] [address] Care Team Providers Care Member Services Representative Name Role Phone Main Carrington Primary Care Provider [phone] Main Carrington Unavailable Unavailable Cathie Musa Unavailable [phone] Cathie Chang Unavailable [phone] Migration, Provider Unavailable Unavailable Allergies Allergen (clinical drug ingredient) Drug/Non Drug Allergy documented on EMR Reaction Allergy Type Onset Date Status Penicillin Unknown Drug Allergy Active Results Component Value Reference Range Notes PTH, INTACT WITHOUT CALCIUM (12793) Reviewed date:10/12/2024 08:42:36 AM Interpretation: Performing Lab:[facility] [employer] [id number] [employer], BL[employer] TechnologiesFvfzBE[address] [employer] Julian Notes/Report: NON-FASTING PARATHYROID HORMONE, INTACT <6 16-77 pg/mL Interpretive Guide Intact PTH Calcium ------- Normal Parathyroid Normal Normal Hypoparathyroidism Low or Low Normal Low Hyperparathyroidism Primary Normal or High High Secondary High Normal or Low Tertiary High High Non-Parathyroid Hypercalcemia Low or Low Normal High VITAMIN D,25-OH,TOTAL,IA (17 306) Reviewed date:10/12/2024 08:42:36 AM Interpretation: Performing Lab:[facility] [address], BL[employer] Network TechnologiesXlcuGP[address] [place] Julian Notes/Report: NON-FASTING; NON-FASTING VITAMIN D,25-OH,TOTAL,IA 43 30-100 ng/mL Vitamin D Status 25-OH Vitamin D: Deficiency: <20 ng/mL Insufficiency: 20 - 29 ng/mL Optimal: > or = 30 ng/mL For 25-OH Vitamin D testing on patients on D2-supplementation and patients for whom quantitation of D2 and D3 fractions is required, the QuestAssureD(TM) 25-OH VIT D, (D2,D3), LC/MS/MS is recommended: order code 92580 (patients >2yrs). See Note 1 Note 1 For additional information, please refer to http://education.[employer]/faq/NYD344 (This link is being provided for informational/ educational purposes only.) BASIC METABOLIC PANEL (16593 ) Reviewed date:12/21/2024 02:53:46 PM Interpretation: Performing Lab:[facility] [employer] Technologiese1355 [employer] [place] Julian Notes/Report: NON-FASTING GLUCOSE 86 65-99 mg/dL Fasting reference interval UREA NITROGEN (BUN) 10 7-25 mg/dL CREATININE 0.82 0.70-1.35 mg/dL EGFR 96 > OR = 60 mL/min/1.73m2 BUN/CREATININE RATIO SEE NOTE: 6 (calc) Not Reported: BUN and Creatinine are within reference range. SODIUM 142 135-146 mmol/L POTASSIUM 4.6 3.5-5.3 mmol/L CHLORIDE 97 98-110 mmol/L CARBON DIOXIDE 37 20-32 mmol/L CALCIUM 7.8 8.6-10.3 mg/dL BASIC METABOLIC PANEL (68986 ) Reviewed date:10/12/2024 08:42:36 AM Interpretation: Performing Lab:[facility] Quickshifte13[address] [employer] [place] Julian Notes/Report: NON-FASTING; NON-FASTING GLUCOSE 80 [...] 8.6-10.3 mg/dL VITAMIN D,25-OH,TOTAL,IA (17 306) Reviewed date:02/22/2025 10:41:39 AM Interpretation: Performing Lab:[facility] allGreenup355 [employer], InspireMDXakqJF[address] [employer] Julian Notes/Report: NON-FASTING; NON-FASTING; NON-FASTING; NON-FASTING; [...] D, (D2,D3), LC/MS/MS is recommended: order code 43640 (patients >2yrs). See Note 1 Note 1 For additional information, please refer to http://education.[employer]/faq/EOZ157 (This link is being provided for informational/ educational purposes only.) VITAMIN B12/FOLATE, SERUM PA HUGH (1199) Reviewed date:02/22/2025 10:41:39 AM Interpretation: Performing Lab:[facility] Quickshifte1355 [employer]insighttel [facility], InspireMDWapsVS[address] [employer] Julian Notes/Report: NON-FASTING; NON-FASTING; NON-FASTING; NON-FASTING; NON-FAST VITAMIN B12 226 940-0879 pg/mL FOLATE, SERUM >24.0 Reference Range Low: <3.4 Borderline: 3.4-5.4 Normal: >5.4 CBC (INCLUDES DIFF/PLT) (639 9) Reviewed date:02/22/2025 10:41:39 AM Interpretation: Performing Lab:[facility] allGreenup355 [employer], [facility] HealthRnkyUF[address] [employer] Julian Notes/Report: NON-FASTING; NON-FASTING; NON-FASTING; NON-FASTING; [...] MPV 10.0 7.5-12.5 fL ABSOLUTE NEUTROPHILS 3640 4874-9311 cells/uL ABSOLUTE LYMPHOCYTES 0758 243-6507 cells/uL ABSOLUTE MONOCYTES 549 200-950 cells/uL ABSOLUTE EOSINOPHILS 291 15-500 cells/uL ABSOLUTE BASOPHILS 28 0-200 cells/uL NEUTROPHILS 65 LYMPHOCYTES 19.5 MONOCYTES 9.8 EOSINOPHILS 5.2 BASOPHILS 0.5 COMPREHENSIVE METABOLIC PANE (95291) Reviewed date:02/22/2025 10:41:38 AM Interpretation: Performing Lab:CB, [facility] Rtlx8465 [facility], [facility] HealthSudpBM[address] [employer] Julian Notes/Report: NON-FASTING; NON-FASTING; NON-FASTING; NON-FASTING; [...] ) Reviewed date:02/22/2025 10:41:38 AM Interpretation: Performing Lab:CB, [facility] [address], [facility] HospitalSbrsDT[address] [place] Julian Notes/Report: NON-FASTING; NON-FASTING; NON-FASTING; NON-FASTING; NON-FAST T3 UPTAKE 28 22-35 % T4 (THYROXINE), TOTAL 7.8 4.9-10.5 mcg/dL FREE T4 INDEX (T7) 2.2 1.4-3.8 TSH 1.30 0.40-4.50 mIU/L Reason For Referral No Information Medications Medication SIG (Take, Route, Frequency, Duration) Notes Start Date End Date Status Breztri Aerosphere 160-9-4.8 MCG/ACT 2 puffs Inhalation Twice a day Active Ferrous Sulfate 325 (65 Fe) MG 1 tab(s) orally once a day A ctive Calcium 600 MG 1 TAB oral daily Active Ipratropium-Albuterol 0.5-2.5 (3) MG/3ML 3 mL by nebulizer 4 times a day Active Tamsulosin HCl 0.4 MG 1 capsule [...] 8 hrs; Duration: 7 days 08/01/2025 Active Immunizations Vaccine Route Administration Date Status [...] Risk Notes Problem Malignant tumor of lung (490083671) Malignant neoplasm of unspecified part of unspecified bronchus or lung (C34.90) Active confirmed Problem Hypocalcemia (4992401) Hypocalcemia (E83.51) Active confirmed Problem Primary insomnia (3280949) Primary insomnia (F51.01) Active confirmed Problem Essential tremor (231141478) Essential tremor (G25.0) Active confirmed Problem Essential hypertension (92041227) Essential (primary) hypertension (I10) Active confirmed Problem Vasomotor rhinitis (9671806) Vasomotor rhinitis (J30.0) Active confirmed Problem Acute on chronic hypoxemic and hypercapnic respiratory failure (disorder) (99667367296582) Acute and chronic respiratory failure with hypercapnia (J96.22) Active confirmed Problem Osteoarthritis (883346106) Unspecified osteoarthritis, unspecified site (M19.90) Active confirmed Problem Nicotine dependence (60540733) Personal history of nicotine dependence (Z87.891) Active confirmed Problem Chronic obstructive pulmonary disease (31852141) 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) Active confirmed Problem Restless legs syndrome (50809331) Restless leg syndrome (G25.81) Active confirmed Problem Acute exacerbation of chronic obstructive airways disease (411146195) COPD with acute exacerbation (J44.1) Active confirmed Problem Acute exacerbation of chronic obstructive airways disease (033787320) COPD exacerbation (J44.1) Active confirmed Problem Idiopathic peripheral neuropathy (92398245) Idiopathic peripheral neuropathy (G60.9) Active confirmed Problem 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) Active confirmed Problem Cigarette smoker (47185430) Cigarette smoker (F17.210) Active confirmed Problem Tobacco dependence (97107704) Tobacco dependence (F17.200) Active confirmed Problem Oropharyngeal dysphagia (76818774) Oropharyngeal dysphagia (R13.12) Active confirmed Problem Dependence on supplemental oxygen (850527313281) Oxygen dependent (Z99.81) Active confirmed Problem Irritable bowel syndrome characterized by constipation (654984252) Irritable bowel syndrome with constipation (K58.1) Active confirmed Problem Lower urinary tract symptoms due to benign prostatic hypertrophy (74376243929244) Benign prostatic hyperplasia with lower urinary tract symptoms (N40.1) Active confirmed Problem Chronic obstructive pulmonary disease (39382427) COPD, group D, by GOLD 2017 classification (J44.9) Active confirmed Vital Signs Heart Rate 92 /min 08/01/2025 Temperature 97.0 degrees Fahrenheit 08/01/2025 Oximetry 97 08/01/2025 Blood pressure diastolic 76 mm Hg 08/01/2025 Height 5 ft 10 in in 08/01/2025 Blood pressure systolic 110 mm Hg 08/01/2025 Weight 117 lbs 08/01/2025 BMI 16.79 kg/m2 08/01/2025 Encounters Encounter Location Date Provider Diagnosis [facility] [address] [place], [place] [address] 02/11/2025 Provider Migration COPD, group D, by GOLD 2017 classification J44.9 [facility] [address] [place] [address] 08/08/2024 Main Carrington COPD, group D, by GO LD 2017 classification J44.9 ; Essential tremor G25.0 and Hospital discharge follow-up Z09 [facility] [address] [place] [address] 08/24/2024 Main Carrington Oropharyngeal dysphagia R13.12 and COPD, group D, by GOLD 2017 classification J44.9 [facility] [address] [place] [address] 09/14/2024 Main Besson Acute and chronic respiratory failure with hypercapnia J96.22 ; COPD with acute exacerbation J44.1 ; Malignant neoplasm of unspecified part of unspecified bronchus or lung C34.90 and Essential (primary) hypertension I10 [facility] [address] [place] [address] 09/26/2024 Main Besson COPD, group D, by GO LD 2017 classification J44.9 ; Acute and chronic respiratory failure with hypercapnia J96.22 ; Malignant neoplasm of unspecified part of unspecified bronchus or lung C34.90 and Hospital discharge follow-up Z09 [facility] [address] [place] [address] 10/10/2024 Main Besson Hypocalcemia E83.51 and Hospital discharge follow-up Z09 [facility] [address] [place] [address] 10/17/2024 Main Besson Hypocalcemia E83.51 [facility] [address] [place] [address] 11/08/2024 Cathie Charlene COPD exacerbation J44.1 [facility] [address] [place] [address] 11/21/2024 Main Besson COPD, group D, by GO LD 2017 classification J44.9 ; Acute and chronic respiratory failure with hypercapnia J96.22 and Hospital discharge follow-up Z09 [facility] [address] [place] [address] 12/19/2024 Main Besson Hypocalcemia E83.51 and COPD, group D, by GOLD 2017 classification J44.9 [facility] [address] [place] [address] 02/20/2025 Main Besson Idiopathic periphera l neuropathy G60.9 ; COPD, group D, by GOLD 2017 classification J44.9 and Malignant neoplasm of unspecified part of unspecified bronchus or lung C34.90 [facility] [address] [place] [address] 05/01/2025 Main Besson COPD, group D, by GO LD 2017 classification J44.9 ; Acute and chronic respiratory failure with hypercapnia J96.22 ; Malignant neoplasm of unspecified part of unspecified bronchus or lung C34.90 ; Essential (primary) hypertension I10 ; Chronic constipation K59.09 ; Benign prostatic hyperplasia with lower urinary tract symptoms N40.1 ; Nocturia R35.1 and Routine medical exam Z00.00 [facility] [address] [place] [address] 06/05/2025 Mainjad Carrington Irritable bowel syndrome with constipation K58.1 [facility] [address] [place] [address] 08/01/2025 Cathie Dimple Acute traumatic pain G89.11 ; Left-sided chest wall pain R07.89 and Oxygen dependent Z99.81 [facility] [address] [place] [address] 08/05/2024 Main Besson [facility] [address] [place] [address] 10/03/2024 Main Besson COPD, group D, by GO LD 2017 classification J44.9 and Acute and chronic respiratory failure with hypercapnia J96.22 [facility] [address] [place] [address] 11/14/2024 Main Besson [facility] [address] [facility] [address] 04/11/2025 Main Besson Essential tremor G25 .0 [facility] [address] [place] [address] 05/09/2025 Main Besson Chronic constipation K59.09 [facility] [address] [place] [address] 07/12/2025 Main Besson [facility] [address] [place] [address] 08/01/2025 Cathie Musa Assessments Encounter Date Diagnosis (ICD Code) Assessment Notes Treatment Notes Treatment Clinical Notes Section Notes 08/08/2024 Essential tremor (ICD-10 - G25.0) Slightly [...] prevent hospital admission. He will see his scooter mechanic next week and oncology, I will see [...] plan 05/09/2025 Chronic constipation (ICD-10 - K59.09) 06/05/2025 Irritable bowel syndrome with constipation (ICD-10 - K58.1) Given the fact that Colace is doing well we will continue this. 2 caps daily, discussed hydration issues. Keep regular follow-up for flu shot in the fall. 08/01/2025 Left-sided chest wall pain (ICD-10 - R07.89) 08/01/2025 Acute traumatic pain (ICD-10 - G89.11) JONATAN requested. Risks a/w use reviewed. Strict return precautions reviewed. We discussed imaging which he declines at this point but I did go ahead and give him an order and recommended that he obtain it should any of his symptoms get worse with respect to pain or dyspnea or cough. He voices understanding . We discussed other pain relieving measures including Tylenol, topical lidocaine, heat and splinting during cough or deep breathing 08/01/2025 Oxygen dependent (ICD-10 - Z99.81) 05/01/2025 Malignant neoplasm of unspecified part of [...] hospital H&P, discharge summary, personally reconciled medications 09/14/2024 Essential (primary) hypertension (ICD-10 - I10) [...] No injury. Depression screening negative per patient. 01/09 word recall. Declines vaccinations 09/14/2024 Other Please note ernestine t I personally called the emergency department to let them know of patient's arrival and his condition in the office Plan Of Treatment Pending Test Test Name Order Date X ray : Chest 08/01/2025 X ray : Rib Series, Left 08/01/2025 M-Complete Blood Count Auto Diff 024 M-Comprehensive Metabolic Panel 10/03/20 24 M-Magnesium 10/03/2024 Next Appt Details Provider Name:Main Carrington, 08/21/2025 11:30:00 AM, [address], [place], [address], Insurance Providers Payer Name Payer Address Payer Phone Subscriber Number Group Number Insured Name Patient Relationship to Insured Coverage Start Date Coverage End Date [employer] [address] [place] [address] [id number] Alejandro Madera Self - patient is the insured Medications Administered Medication Instructions Date of Administration Dosage Notes Dexamethasone 4mg Injection 05/31/2024 4 mg Dexamethasone 4mg Injection 08/24/2024 4 mg Medical (General) History Medical History History ICD Code RLS HTN COPD Lung/ Liver cancer Partially Collapsed right lung 3L oxygen Surgical History Surgery Date(Month/Year) port installed 12/2022 Hospitalization History Reason Date(Month/Year) [facility] 11/2024 [facility] COPD 09/2024 [facility] COPD [facility] COPD EXACERBATION 06/10/24-06/12/24
--- OUTSIDE RECORDS SUMMARY | 2025-08-03 09:53 | XMS_ITS | Clinical Summary ---
Author Organization [facility] Address [address] [place] [id number] Care Team Providers Care Cotton Breeder Name Role Phone Main Kyle MD Primary Care Provider [phone] Immunizations Immunization Administration Dates Next Due Influenza, [...] Date Last Done Comments [facility]-Depression Screening 1957 [facility]-Infant/Child/Adol SDOH Screenings 1957 [facility]- SDOH Screenings 1975 [facility]-Adult SDOH Screenings 1975 [facility]-DTaP,Tdap,and Td Vaccines (1 - Tdap) 1976 CT Colonography 2002 Colonoscopy 2002 FIT-DNA 2002 FIT 2002 FOBT 2002 Sigmoidoscopy 2002 [facility]-Colorectal Cancer Screening 2002 [facility]-Zoster Vaccines (1 of 2) 2007 [facility]-Pneumococcal Vaccine: 50+ Years (2 of 2 - PCV20 or PCV21) 04/15/2017 09/16/2017, 04/15/2016 [id number] Vaccine (3 - season) 2025 09/18/2021, 01/16/2021 [facility]-Influenza Vaccine (#1) 07/10/202507/18, 08/12/2023, 09/08/2017, Additional history exists [facility]-RSV Vaccine: 60+ Years or (1 - 1-dose 75+ series) 2032 HPV [...] age to complete this topic Care Teams Cotton Breeder Relationship Specialty Start Date End Date Main Kyle MD [address] [place] [address] PCP - General 03/22/21
== END 2025-08-03 23:59 | disposition home or self-care (01) ==
LOC: RAD 09:48
PROVIDERS: PCP Internal Medicine Adolescent Medicine; Visit Provider Nurse Practitioner Family
DX: S22.32XA Fracture of one rib, left side, initial encounter for closed fracture (principal); R91.8 Other nonspecific abnormal finding of lung field; G89.11 Acute pain due to trauma; Z99.81 Dependence on supplemental oxygen; W19.XXXA Unspecified fall, initial encounter
CPT/HCPCS: 71046; 71100

== ENCOUNTER 2025-08-10 11:42 | Observation (INO) | payer MEDICARE, SELFPAY ==
[2025-08-10] VITALS (24 sets, daily range): BP systolic 118–158; BP diastolic 56–107; PULSE 73–87; RESP 15–27; TEMP 36.4–36.8; O2SAT 94–100; BMI 16.6; BMI 15.4
--- OUTSIDE RECORDS SUMMARY | 2025-08-10 12:14 | XMS_ITS | Encounter Summary ---
Author Organization [facility] Address [address] [place] [address] Care Team Providers Care Vise Hand Name Role Phone Main Kyle MD Primary Care Provider [phone] Encounter Details Date Type Department Care Team (Late st Contact Info) Description 06/16/2019 Abstract [facility] [address] [place] [address] Radiation Oncology, Physician, [address] [place] [address] Social History Tobacco Use Types Packs/Day Years [...] on filedocumented in this encounter Care Teams Vise Hand Relationship Specialty Start Date End Date Main Kyle MD [address] [place] [address] PCP - General 03/22/21 documented as of this encounter
--- OUTSIDE RECORDS SUMMARY | 2025-08-10 12:14 | XMS_ITS | Clinical Summary ---
Author Organization [facility] Address [address] [place] [address] Care Team Providers Care Bank Vault Custodian Name Role Phone Unavailable Primary Care Provider [...] ADRIENNE ESTRADA Released Date Time- 02/24/15 1234 Compliance Advisor- LJosefina Procedure Note Adrienne Avendaño MD - [...] ADRIENNE ESTRADA Released Date Time- 02/24/15 1234 Compliance Advisor- Sariah us Talha Carrasco MD IMG CT ORDERABLES Final Res ult from Last 3 Months or Most Recently Relevant to Health Maintenance
--- OUTSIDE RECORDS SUMMARY | 2025-08-10 12:14 | XMS_ITS | Clinical Summary ---
Author Organization [facility] Address [address] [place] [id number] Care Team Providers Care Network Pricing Consultant Name Role Phone Main Kyle MD Primary [...] - PCV20 or PCV21) 04/15/2017 09/16/2017, 04/15/2016 [id number] Vaccine (3 - season) 2025 09/18/2021, 01/16/2021 [...] age to complete this topic Care Teams Network Pricing Consultant Relationship Specialty Start Date End Date Main Kyle MD [address] [place] [address] PCP - General 03/22/21
--- NOTE | 2025-08-10 12:23 | ED_ITS ---
<Statement entered by Juan Toure DO - 08/11/25 07:20> I was consulted by the ABEBA, and we discussed the complexity of problems being addressed. I approved the treatment and management plan for this patient's care in the emergency department, thus performing a substantive portion of the medical decision making. Juan Toure DO Discharge Plan Disposition Patient Disposition: Admitted Clinical Impressions Clinical Impression: Respiratory failure Discharge ED Provider: Juan Toure [facility] General Chief Complaint: Shortness of Breath/Dyspnea Stated Complaint: AO fall 07/24/2025 Rib, shoulder pain Time Seen by Provider: 08/10/25 12:00 Mode of Arrival: Wheelchair Source of Information: Patient Description of Symptoms (Recalled from ER Triage Doc. by RN): patient states he has been short of breath for 3 weeks. has also been falling more often. History of Present Illness HPI narrative: 70-year-old male presents to the ED today with complaint of shortness of breath. He also complains of a fractured rib. states that he was sent from Dr. Concepcion office for evaluation. Patient has had frequent falls 3 in the last 2 days. Doctor sent him because he has been so short of breath, rib fractures and he wanted him evaluated. Patient wears 3 to 4 L at home. states that his O2 has been good at home. Patient has a port and has been receiving immunotherapy for cancer. He had been in remission but there was a questionable right upper lobe opacity that Dr. Webber wanted reevaluated. This is according to the . also states that patient has had a lot of feet numbness and he cannot feel where he is walking and that is the reason why he has been falling so much. Related Data Home Medications ?Medication ?Instructions ?Recorded ?Confirmed trazodone 150 mg tablet 150 mg PO HS 07/03/22 aspirin 325 mg tablet 325 mg PO DAILY 05/11/2301/03 propranolol 20 mg tablet 20 mg PO BID 08/23/24 tamsulosin 0.4 mg capsule mg PO 05/30/25 08/10/25 tramadol 50 mg tablet 50 mg PO DAILY 08/10/2501/03 Previous Rx's ?Medication ?Instructions ?Recorded calcium carbonate (Calcium 500) 1,000 mg (2 x 500 mg c alcium 11/23/24 (1,250 mg)) PO DAILY #10 tabs polyethylene glycol 3350 17 gram 17 g PO DAILY 30 days #30 ea 11/14/24 oral powder packet (HealthyLax) ferrous sulfate 325 mg (65 mg 325 mg PO DAILY #90 tabs 11/29/24 iron) tablet azelastine 137 mcg (0.1 %) nasal 1 spray intranasal .q 6 PRN allergy 02/08/25 spray symptoms 90 days #30 mL ipratropium 0.5 mg-albuterol 3 mg 3 ml inhalation QIDP PRN Shortness 02/08/25 (2.5 mg base)/3 mL nebulization Of Breath Or Wheezing 90 days #180 soln mL budesonide 160 mcg-glycopyr 9 2 inh inhalation BID 90 days #10.7 03/27/25 mcg-formot 4.8 mcg/actuation HFA grams inhaler (Breztri Aerosphere) albuterol sulfate 90 mcg/actuation 2 inh inhalation QI D PRN shortness 07/11/25 aerosol inhaler of breath or wheezing 90 day s #8.5 grams doxycycline hyclate 100 mg tablet 100 mg PO BID #10 ta bs 08/10/25 prednisone 20 mg tablet 40 mg (2 x 20 mg) PO DAILY 5 days 08/10/25 #10 tabs Allergies Allergy/AdvReac Type Severity Reaction Status Date / Time silver (From Tegaderm AG Allergy Severe Rash Verified 05/30/25 10:45 Mesh) doxycycline Allergy Mild GI upset Verified 08/10/25 11:05 Penicillins (PENICILLINS) Allergy Mild Unknown Verified 08/10/25 11:05 allergy reaction amitriptyline AdvReac Intermediate gi upset Verified 05/30/25 10:45 adhesive AdvReac Rash Verified 08/10/25 11:05 hydrocodone AdvReac gi upset Verified 08/10/25 11:05 PFSH PFSH Disclaimer: The information contained in this section may have been updated after the patient was seen, as this information can be updated by other users. Medical History (Updated 08/10/25 @ 17:46 by Shadia Reynoso RN) Hypomagnesemia Hypocalcemia Hypomagnesemia Hypocalcemia COPD exacerbation Hypocalcemia Acute exacerbation of chronic obstructive pulmonary disease Acute on chronic hypoxic respiratory failure Asthma exacerbation in COPD Shortness of breath Acute exacerbation of chronic obstructive pulmonary disease Dyspnea On home oxygen therapy Acute and chronic respiratory failure with hypercapnia Acute exacerbation of chronic obstructive airways disease Community acquired pneumonia Bilateral impacted cerumen Tinnitus Hearing loss Lung nodule Hilar lymphadenopathy Pneumonia Sleep apnea Emphysema/COPD Chronic cough Bronchitis Allergies History of anemia Lung collapse Nodule of right lung Tobacco abuse disorder Tobacco abuse counseling Small cell lung cancer Smoking greater than 30 pack years Chronic hypoxemic respiratory failure COPD (chronic obstructive pulmonary disease) Dyspnea on exertion On home O2 Sinus problem History of chemotherapy History of radiation therapy Personal history of arthritis History of lung disease Hyperlipemia Cancer Asthma Essential hypertension COPD exacerbation Surgical History History of insertion of tunneled central venous catheter (CVC) with port History of colonoscopy Hx of cardiac catheterization Normal coronary arteries History of sinus surgery Family History Diabetes Cancer Social History Smoking Status: Current every day smoker tobacco type: cigarettes packs per day: 1 years smoked: 50 alcohol intake: former substance use type: denies use current occupational status: retired and disabled Travel in the last 8 weeks?: None household members: spouse housing: house caffeine: Yes Have you lived/traveled outside [place] in past 30 days?: No Contact w/someone who lives/traveled outside US past 30 days?: No Exposure to someone with infectious disease in past 14 days?: No Do you have a fever (greater than 100.4 F or 38 C)?: No Have you tested positive for COVID-19?: No Exposed to someone with COVID-19 in past 14 days?: No Do you have a sore throat?: No Do you have a cough?: No Do you have any weakness?: No Do you have any diarrhea?: No Are you experiencing any unusual bleeding?: No Do you have any muscle aches/pain?: No Do you have any abdominal pain?: No Are you experiencing loss of taste or smell?: No Other Medical History Have you received the Flu Vaccine for this season: No Have you received the Pneumonia Vaccine: Yes ROS Obtained: Yes Systems reviewed as appropriate & no additional complaints except as documented Constitutional Constitutional: Reports as per HPI Physical Exam General General appearance: alert and in distress (Mild respiratory distress) Head Head exam: normocephalic Eye Eye exam: Present PERRL ENT ENT exam: Present mucous membranes moist Neck Neck exam: Present trachea midline Chest Chest inspection: Present symmetric chest wall rise Respiratory Respiratory exam: Present respiratory distress, wheezes and accessory muscle use Cardiovascular Cardiovascular exam: Present regular rate, normal rhythm, normal heart sounds, +S1 and +S2 Abdominal Exam Abdominal exam: Present soft and normal bowel sounds Abdominal tenderness: Present epigastrium Comment: This is where patient complains of pain from his rib fracture Extremities Exam Extremities exam: Present full ROM and normal capillary refill Back Exam Back exam: Present full ROM Neurological Exam Neurological exam: Present alert and oriented X3 Psychiatric Psychiatric exam: Present normal mood Skin Skin exam: Present warm and dry HEART Score HEART Score HEART Score assessment performed?: Yes History (anamnesis): Slightly suspicious ECG: Normal Age: >65 years Risk factors: 3 or more risk factors Troponin: </= normal limit HEART Score: 4 Critical Care Critical Care Time Critical Care Time: No Medical Decision Making Alvarado Inquiry Pt receiving controlled substance: No Alvarado was queried for this patient: No Vital Signs Vital Signs: 08/10/25 12:05 08/10/25 12:14 08/10/25 12:40 Temperature 97.5 F L Temperature Source Oral Pulse Rate 75 Pulse Rate [Right Radial] 81 Respiratory Rate 27 H 26 H Blood Pressure 145/75 H Blood Pressure [Right Arm] 142/84 H Blood Pressure Mean Blood Pressure Mean [Right Arm] 103 Blood Pressure Source Automatic Cuff Blood Pressure Source [Right Arm] Automatic Cuff Blood Pressure Position Supine Blood Pressure Position [Right Arm] Sitting 02 Sat by Pulse Oximetry 99 99 100 Oxygen Delivery Method Nasal Cannula Nasal Cannula Nasal Cannula Oxygen Flow Rate (LPM) 3 3 3 08/10/25 12:46 08/10/25 12:59 08/10/25 13:01 Temperature Temperature Source Pulse Rate 74 76 77 Pulse Rate [Right Radial] Respiratory Rate 15 25 H 18 Blood Pressure 156/71 H 152/63 H 147/67 H Blood Pressure [Right Arm] Blood Pressure Mean Blood Pressure Mean [Right Arm] Blood Pressure Source Automatic Cuff Automatic Cuff Automatic Cuff Blood Pressure Source [Right Arm] Blood Pressure Position Supine Supine Supine Blood Pressure Position [Right Arm] 02 Sat by Pulse Oximetry 95 99 99 Oxygen Delivery Method Nasal Cannula Nasal Cannula Nasal Cannula Oxygen Flow Rate (LPM) 3 3 3 08/10/25 13:11 08/10/25 13:17 08/10/25 13:21 Temperature Temperature Source Pulse Rate 76 76 75 Pulse Rate [Right Radial] Respiratory Rate 21 25 H 25 H Blood Pressure 148/80 H 118/72 139/56 L Blood Pressure [Right Arm] Blood Pressure Mean Blood Pressure Mean [Right Arm] Blood Pressure Source Automatic Cuff Automatic Cuff Automatic Cuff Blood Pressure Source [Right Arm] Blood Pressure Position Supine Supine Supine Blood Pressure Position [Right Arm] 02 Sat by Pulse Oximetry 100 98 99 Oxygen Delivery Method Nasal Cannula Nasal Cannula Nasal Cannula Oxygen Flow Rate (LPM) 3 3 3 08/10/25 13:25 08/10/25 13:31 08/10/25 13:35 Temperature Temperature Source Pulse Rate 74 73 87 Pulse Rate [Right Radial] Respiratory Rate 20 25 H 20 Blood Pressure 126/78 140/69 143/89 H Blood Pressure [Right Arm] Blood Pressure Mean Blood Pressure Mean [Right Arm] Blood Pressure Source Automatic Cuff Automatic Cuff Blood Pressure Source [Right Arm] Blood Pressure Position Supine Supine Blood Pressure Position [Right Arm] 02 Sat by Pulse Oximetry 100 96 94 L Oxygen Delivery Method Nasal Cannula Nasal Cannula Nasal Cannula Oxygen Flow Rate (LPM) 3 3 3 08/10/25 13:55 08/10/25 15:05 08/10/25 15:30 Temperature Temperature Source Pulse Rate 78 85 78 Pulse Rate [Right Radial] Respiratory Rate 26 H 21 21 Blood Pressure 135/77 158/86 H 136/80 Blood Pressure [Right Arm] Blood Pressure Mean 110 Blood Pressure Mean [Right Arm] Blood Pressure Source Blood Pressure Source [Right Arm] Blood Pressure Position Blood Pressure Position [Right Arm] 02 Sat by Pulse Oximetry 96 99 97 Oxygen Delivery Method Nasal Cannula Oxygen Flow Rate (LPM) 3 08/10/25 16:00 08/10/25 16:30 08/10/25 17:15 Temperature Temperature Source Pulse Rate 79 77 79 Pulse Rate [Right Radial] Respiratory Rate 21 23 21 Blood Pressure 126/107 H 145/75 H Blood Pressure [Right Arm] Blood Pressure Mean Blood Pressure Mean [Right Arm] Blood Pressure Source Blood Pressure Source [Right Arm] Blood Pressure Position Blood Pressure Position [Right Arm] 02 Sat by Pulse Oximetry 96 100 99 Oxygen Delivery Method Nasal Cannula Oxygen Flow Rate (LPM) 4 08/10/25 17:21 Temperature 98 F Temperature Source Pulse Rate 78 Pulse Rate [Right Radial] Respiratory Rate 18 Blood Pressure 145/75 H Blood Pressure [Right Arm] Blood Pressure Mean Blood Pressure Mean [Right Arm] Blood Pressure Source Automatic Cuff Blood Pressure Source [Right Arm] Blood Pressure Position Supine Blood Pressure Position [Right Arm] 02 Sat by Pulse Oximetry Oxygen Delivery Method Room Air Nasal Cannula Oxygen Flow Rate (LPM) 4 Lab Data Labs: Lab Results 08/10/25 12:07: WBC 9.3, RBC 3.39 L, Hgb 9.9 L, Hct 30.1 L, MCV 88.8, MCH 29.2, MCHC 32.9, RDW 13.3, Plt Count 495 H, MPV 8.5, Neut % (Auto) 82.3 H, Lymph % (Auto) 10.2, [place] % (Auto) 5.8, Eos % (Auto) 1.3, Baso % (Auto) 0.2, Neut # (Auto) 7.6, Lymph # (Auto) 0.9, [place] # (Auto) 0.5, Eos # (Auto) 0.1, Baso # (Auto) 0.0, ESR 125 H, Sodium 133 L, Potassium 4.2, Chloride 88 L, Carbon Dioxide 31 H, Anion Gap 18.2 H, BUN 11, Creatinine 0.70, Estimated Creat Clear 53, Estimated GFR 112, Est GFR ( Amer) 136, Glucose 84, Calcium 8.1 L, Magnesium 1.8, Total Bilirubin 0.6, AST 27, ALT 17, Alkaline Phosphatase 134 H, Troponin I < 0.01, C-Reactive Protein 33.2 H, Total Protein 8.2, Albumin 4.6, G lobulin 3.6 H, Albumin/Globulin Ratio 1.3, Lipase 42 08/10/25 12:23: SARS-CoV-2 (PCR) Not detected, Influenza A Untype (PCR) Not detected, Influenza Type B (PCR) Not detected 08/10/25 12:35: VBG pH 7.27 L, VBG pCO2 69.2 H, VBG pO2 27.1 L, VBG HCO3 31.3 H, VBG Total CO2 33.4 H, VBG O2 Saturation 41.8 L, VBG Base Excess 4.4 H, VBG Lactic Acid 1.9 08/10/25 15:38: Troponin I < 0.01 08/10/25 12:07 08/10/25 12:07 Response Orders (Tests/Meds): ED MEDICATIONS Generic Name Dose Route Start Last Admin Trade Name Frestepan PRN Reason Stop Dose Admin Acetaminophen 650 mg 08/10/25 16:57 Acetaminophen 325mg Tab PO 09/09/25 16:56 Q4HP PRN Fever or Mild Pain (1-3) Hydrocodone Bitart/Acetaminophen 1 tab 08/10/25 16:57 Hydrocodone/Apap 5/325 Mg Tablet PO 09/09/25 16:56 Q4HP PRN Mild to Moderate Pain (1-6) Albuterol/Ipratropium 3 ml 08/10/25 18:00 Ipratropium/Albuterol 3 Ml [facility] 09/09/25 17:59 Q6RT DOREEN Heparin Sodium (Porcine) 5,000 unit 08/10/25 21:00 Heparin Sodium 5,000 Unit/Ml Vial SUBCUT 09/09/25 20:59 TID DOREEN Levalbuterol HCl 1.25 mg 08/10/25 16:57 Levalbuterol 1.25mg/3ml [facility] 09/09/25 16:56 Q6HP PRN Shortness Of Breath Morphine Sulfate 4 mg 08/10/25 16:57 Morphine 4mg/Ml Syringe IV 09/09/25 16:56 Q4HP PRN Severe Pain (7-10) Nicotine 21 mg 08/10/25 16:57 Nicotine 21mg/24hr Patch TD 09/09/25 16:56 DAILYP PRN Nicotine Cravings Sodium Chloride 3 ml 08/10/25 16:43 Sodium Chloride 3% 15ml [facility] 09/09/25 16:42 ONCE PRN INDUCE SPUTUM COLLECTION Discontinued Medications Generic Name Dose Route Start Last Admin Trade Name Julio PRN Reason Stop Dose Admin Albuterol/Ipratropium 9 ml 08/10/25 12:19 08/10/25 12:34 Ipratropium/Albuterol 3 Ml [facility] 08/10/25 12:20 9 ml ONCE ONE Administration Dexamethasone Sodium Phosphate 8 mg 08/10/25 12:19 08/10/25 12:34 Dexamethasone 4mg/Ml 1ml Vial IV 08/10/25 12:20 8 mg ONCE ONE Administration Magnesium Sulfate 2 gm in 50 mls @ 50 mls/hr 08/10/25 12:19 08/10/25 13:43 Magnesium Sulfate 2gm/50ml Premix IV 08/10/25 13:18 Infused ONCE ONE Infusion Doxycycline Hyclate 200 mg/ 250 mls @ 166.667 mls/hr 08/10/25 16:55 08/10/25 17:07 Sodium Chloride IV 08/10/25 16:56 166.67 mls/hr ONCE ONE Administration Iopamidol 80 ml 08/10/25 13:47 08/10/25 13:47 Iopamidol-370 (76%);100ml Bottle IV 08/10/25 13:48 80 ml ONCE ONE Administration Sodium Chloride 50 ml 08/10/25 13:47 08/10/25 13:47 0.9 % Sodium Chloride 50 Ml Vial IV 08/10/25 13:48 50 ml ONCE ONE Administration Sodium Chloride 10 ml 08/10/25 13:47 08/10/25 13:47 Sodium Chloride 0.9% 10ml Syr (Rad Only) IV 08/10/25 13:48 10 ml ONCE ONE Administration ORDERS Category Date Time Status CT angio chest PE protocol Stat Cat Scan 08/10/25 12:45 Completed Pulmonology Consult [Consult to Pulmonology] [CONS] Cons 08/10/25 16:57 Active Routine CBC [Complete Blood Count Auto Diff] Stat Lab 08/10/25 12:07 Completed CRP [C-Reactive Protein] Stat Lab 08/10/25 12:07 Completed Complete Blood Count Auto Diff AMLAB Lab 08/11/25 06:00 Ordered Comprehensive Metabolic Panel AMLAB Lab 08/11/25 06:00 Ordered Comprehensive Metabolic Panel Stat Lab 08/10/25 12:07 Completed Erythrocyte Sedimentation Rate Stat Lab 08/10/25 12:07 Completed Lipase Stat Lab 08/10/25 12:07 Completed Magnesium AMLAB Lab 08/11/25 06:00 Ordered Magnesium Stat Lab 08/10/25 12:07 Completed Rapid PCR Covid and Flu A/B Stat Lab 08/10/25 12:23 Completed Trop I [Troponin I] Stat Lab 08/10/25 12:07 Completed Troponin I Q3H Lab 08/10/25 15:38 Completed Troponin I Q3H Lab 08/10/25 18:30 Ordered Sputum Culture & Gram Stain Stat Micro 08/10/25 16:43 Ordered VBG [Venous Blood Gas] Stat RT 08/10/25 12:35 Completed MDM Narrative Medical Decision Narrative: patient is a 70-year-old male presenting to the emergency department for evaluation of evaluation of respiratory distress, shortness of breath, rib fracture. Patient is hemodynamically stable and nontoxic-appearing upon arrival, afebrile. Differential diagnosis includes COPD exacerbation, return of cancer, fractured rib, among others. Workup will be conducted with hematologic labs, specific imaging, provocative tests. Initial inventions include crystalloid bolus, analgesics, antibiotics. Initial workup reviewed by me hematologic labs are remarkable for white blood cell count of 9.3, troponins were less than 0.01,. CT showed cavitary lesion in the right upper lobe. I talked to about this finding. He wanted me to put in a sputum culture and a CRP and sed rate. I did do this. Patient also has an order for sputum culture so when he is able to do that we want to get a sputum culture. Patient has improved with the DuoNebs, dexamethasone and mag for his breathing. His breathing when arrival was tachypneic and he was wearing 3 to 4 L we had to increase it to 5 L. Patient was very short of breath and grunting. He had a DuoNeb for an hour and this improved his tachypnea. I did talk to Dr. Tomas about admission because patient has been falling and has had 3 falls in the past [address] Tomas excepted patient to [facility] for acute on chronic hypoxic respiratory failure. Patient is stable and agrees to admission.
[2025-08-10 12:25] LABS: Hematocrit 30.1 % (42.0-52.0); Hemoglobin 9.9 g/dL (14.1-18.0); Immature Granulocytes % 0.2 %; Mean Corpuscular HGB Conc 32.9 g/dL (31.8-35.4); Mean Corpuscular Hemoglobin 29.2 pg (27.0-31.2); Mean Corpuscular Volume 88.8 fl (80-94); Nucleated Red Blood Cells % 0 %; Platelet Count 495 K/mm3 (142-424); Red Blood Count 3.39 M/mm3 (4.60-6.20); Red Cell Distribution Width-SD 43.8 fL; White Blood Count 9.3 K/mm3 (4.8-10.8)
[2025-08-10 12:26] LABS: Coronavirus 19, PCR Not Detected (NotDetected); Influenza A, PCR Not Detected (NotDetected); Influenza B, PCR Not Detected (NotDetected)
[2025-08-10] MEDS: IPRATROPIUM/ALBUTEROL 3 ML NEB 9 ML IH (12:34)
[2025-08-10] MEDS: MAGNESIUM SULFATE IN WATER 2 GM/50 ML PIGGYBACK IV (12:34)
[2025-08-10] MEDS: DEXAMETHASONE 4MG/ML 1ML VIAL 8 MG IV (12:34)
[2025-08-10 12:35] LABS: Lactate Venous 1.9 mmol/L (0.4-2.0); VBG HCO3 31.3 mmol/L (23-30); VBG PCO2 69.2 mmol/L (35-51); VBG PH 7.27 mmol/L (7.31-7.41); VBG PO2 27.1 mmol/L (28-40)
[2025-08-10 12:36] LABS: Alanine Aminotransferase 17 U/L (12-78); Albumin Level 4.6 g/dl (3.5-5.0); Albumin/Globulin Ratio 1.3 (1.1-1.8); Alkaline Phosphatase 134 U/L (38-126); Anion Gap 18.2 mEq/L (5-15); Aspartate Amino Transferase 27 U/L (17-59); Bilirubin,Total 0.6 mg/dl (0.2-1.3); Blood Urea Nitrogen 11 mg/dl (9-20); Calcium 8.1 mg/dl (8.4-10.2); Carbon Dioxide 31 mmol/L (22.0-30.0); Chloride 88 mmol/L (98-107); Creatinine Clearance Estimated 53 mL/min (50-200); Creatinine,Serum 0.70 mg/dl (0.66-1.25); Estimated Glomerular Filt Rate 112 ml/min (>60); GFR (African American) 136 ML/MIN (>60); Globulin 3.6 g/dL (1.3-3.2); Glucose 84 mg/dl (74-100); Lipase 42 U/L (23-300); Magnesium 1.8 mg/dl (1.6-2.3); Potassium 4.2 mmoL/L (3.5-5.1); Sodium 133 mmol/L (136-145); Total Protein,Serum 8.2 g/dl (6.3-8.2)
--- NOTE | 2025-08-10 12:45 | CT_ITS ---
FINAL REPORT TECHNIQUE: The patient was injected with IV contrast. Axial images were obtained through the chest in a PE protocol. 3-D reconstruction images were also performed. Individualized dose reduction techniques using automated exposure control or adjustment of the MA and/or KV according to patient's size were employed. CLINICAL HISTORY: Dyspnea COMPARISON: 11/13/2024 FINDINGS: Mediastinal vasculature is adequately opacified. No pulmonary artery filling defects are identified to suggest PE. There is no aortic dissection. There is no axillary adenopathy. There is no hilar or mediastinal adenopathy. The right hilum is superiorly retracted. There is parenchymal scarring extending to the right suprahilar region. The heart size is normal. There is no pericardial or pleural effusion. Limited images of the upper abdomen are unremarkable. There are advanced changes of centrilobular emphysema. There is a cavitary focus in the right upper lobe measuring 3.4 x 2.8 cm. The cavitation is new. Findings are well-seen on images 21 through 27 of series 6. There is increased surrounding scar and pleural thickening. IMPRESSION: No pulmonary embolus or dissection. Cavitary lesion in the posterior right upper lobe which is new since previous. It is unclear if it is inflammatory or neoplastic. PET scan may be of value to assess metabolic activity associated with the cavitary wall. Reviewed, Interpreted and Dictated by Kar Bowden MD Transcribed by Bre Gross Authenticated and [facility]
[2025-08-10 12:48] LABS: Troponin I < 0.01 ng/ml (0.00-0.034)
[2025-08-10] MEDS: SODIUM CHLORIDE 0.9% 10ML SYR (RAD ONLY) 10 ML IV (13:47)
[2025-08-10] MEDS: 0.9 % SODIUM CHLORIDE 50 ML VIAL IV (13:47)
[2025-08-10] MEDS: IOPAMIDOL-370 (76%);100ML BOTTLE 80 ML IV (13:47)
[2025-08-10 16:08] LABS: Troponin I < 0.01 ng/ml (0.00-0.034)
[2025-08-10 16:58] LABS: C-Reactive Protein 33.2 mg/L (0-4)
--- NOTE | 2025-08-10 16:58 | PC.NURSE ---
call made to [facility] for bed assignment
--- NOTE | 2025-08-10 17:01 | EXP.HP ---
History of Present Illness *Admission Date: 08/10/25 *Reason for visit:: dyspnea *History of present illness: Alejandro Madera is a 70-year-old male with a medical history significant for COPD on 3 L at baseline, pulmonary cachexia, metastatic small cell lung cancer. Presents to the ER at the request of pulmonology for worsening shortness of breath and concern for abnormal lesion on chest x-ray and his right upper lung field. Patient also has been having weakness in his legs and falling at home. In the ER, he is in distress and was increased to 5 to 6 L nasal cannula to improve O2 sats above 90%. Continues to smoke about three quarters of a pack a day. Denies significant productive cough but is having some thick sputum. Denies fever or chills. Has had some suspected weight loss. On workup in the ER, found to have white count of 9.3, hemoglobin 9.9. Kidney function at baseline. CT of chest however shows new cavitary lesion in his right upper lung. Also has a rib fracture of his sixth rib on the left side from a fall 3 weeks ago. Increased work of breathing and respiratory distress along with cavitary lesion concerning. Medicine consulted for admission and further workup. On my evaluation, patient appears in mild to moderate distress on his baseline level of respiratory distress. Cachectic in appearance. Wheeze on exam. at bedside. Able to answer questions appropriately but answers in brief sentences. [facility] Disclaimer: The information contained in this section may have been updated after the patient was seen, as this information can be updated by other users. Medical History (Updated 08/10/25 @ 17:46 by Shadia Reynoso RN) Hypomagnesemia Hypocalcemia Hypomagnesemia Hypocalcemia COPD exacerbation Hypocalcemia Acute exacerbation of chronic obstructive pulmonary disease Acute on chronic hypoxic respiratory failure Asthma exacerbation in COPD Shortness of breath Acute exacerbation of chronic obstructive pulmonary disease Dyspnea On home oxygen therapy Acute and chronic respiratory failure with hypercapnia Acute exacerbation of chronic obstructive airways disease Community acquired pneumonia Bilateral impacted cerumen Tinnitus Hearing loss Lung nodule Hilar lymphadenopathy Pneumonia Sleep apnea Emphysema/COPD Chronic cough Bronchitis Allergies History of anemia Lung collapse Nodule of right lung Tobacco abuse disorder Tobacco abuse counseling Small cell lung cancer Smoking greater than 30 pack years Chronic hypoxemic respiratory failure COPD (chronic obstructive pulmonary disease) Dyspnea on exertion On home O2 Sinus problem History of chemotherapy History of radiation therapy Personal history of arthritis History of lung disease Hyperlipemia Cancer Asthma Essential hypertension COPD exacerbation Surgical History History of insertion of tunneled central venous catheter (CVC) with port History of colonoscopy Hx of cardiac catheterization Normal coronary arteries History of sinus surgery Family History Diabetes Cancer Social History Smoking Status: Current every day smoker tobacco type: cigarettes packs per day: 1 years smoked: 50 alcohol intake: former substance use type: denies use current occupational status: retired and disabled Travel in the last 8 weeks?: None household members: spouse housing: house caffeine: Yes Have you lived/traveled outside [place] in past 30 days?: No Contact w/someone who lives/traveled outside [place] past 30 days?: No Exposure to someone with infectious disease in past 14 days?: No Do you have a fever (greater than 100.4 F or 38 C)?: No Have you tested positive for COVID-19?: No Exposed to someone with COVID-19 in past 14 days?: No Do you have a sore throat?: No Do you have a cough?: No Do you have any weakness?: No Do you have any diarrhea?: No Are you experiencing any unusual bleeding?: No Do you have any muscle aches/pain?: No Do you have any abdominal pain?: No Are you experiencing loss of taste or smell?: No Other Medical History Have you received the Flu Vaccine for this season: No Have you received the Pneumonia Vaccine: Yes Review of Systems Review of Systems Review of systems (narrative): 14 point review of systems performed, pertinent positives and negatives as per HPI Meds Home Medications and Allergies Home Medications ?Medication ?Instructions ?Recorded ?Confirmed ?Type trazodone 150 mg tablet 150 mg PO HS 07/03/22 08/10/25 History aspirin 325 mg tablet 325 mg PO DAILY 05/11/23 08/10/25 History propranolol 20 mg tablet 20 mg PO BID 08/23/24 08/10/25 History calcium carbonate (Calcium 500) 1,000 mg (2 x 500 mg calcium 10/01/24 08/10/25 Rx (1,250 mg)) PO DAILY #10 tabs polyethylene glycol 3350 17 gram 17 g PO DAILY 30 days #30 ea 11/14/24 08/10/25 Rx oral powder packet (HealthyLax) ferrous sulfate 325 mg (65 mg 325 mg PO DAILY #90 tabs 11/29/24 08/10/25 Rx iron) tablet azelastine 137 mcg (0.1 %) nasal 1 spray intranasal .q6 PRN allergy 02/08/25 08/10/25 Rx spray symptoms 90 days #30 mL ipratropium 0.5 mg-albuterol 3 mg 3 ml inhalation QIDP PRN Shortness 02/08/25 08/10/25 Rx (2.5 mg base)/3 mL nebulization Of Breath Or Wheezing 90 days #180 soln mL budesonide 160 mcg-glycopyr 9 2 inh inhalation BID 90 days #10.7 03/27/25 08/10/25 Rx mcg-formot 4.8 mcg/actuation HFA grams inhaler (Breztri Aerosphere) tamsulosin 0.4 mg capsule mg PO 05/30/25 08/10/25 History albuterol sulfate 90 mcg/actuation 2 inh inhalation QID PRN shortness 07/11/25 08/10/25 Rx aerosol inhaler of breath or wheezing 90 days #8.5 grams doxycycline hyclate 100 mg tablet 100 mg PO BID #10 tabs 08/10/25 08/10/25 Rx prednisone 20 mg tablet 40 mg (2 x 20 mg) PO DAILY 5 days 08/10/25 08/10/25 Rx #10 tabs tramadol 50 mg tablet 50 mg PO DAILY 08/10/25 08/10/25 History New Prescriptions to Start Prescriptions: Allergies Allergy/AdvReac Type Severity Reaction Status Date / Time silver (From Tegaderm AG Allergy Severe Rash Verified 05/30/25 10:45 Mesh) doxycycline Allergy Mild GI upset Verified 08/10/25 11:05 Penicillins (PENICILLINS) Allergy Mild Unknown Verified 08/10/25 11:05 allergy reaction amitriptyline AdvReac Intermediate gi upset Verified 05/30/25 10:45 adhesive AdvReac Rash Verified 08/10/25 11:05 hydrocodone AdvReac gi upset Verified 08/10/25 11:05 Exam Data for Last 24 hours Vital signs and Labs for Last 24 Hours: Temp Pulse Resp BP Pulse Ox O2 Del Method O2 Flow Rate 97.5 F L 77 23 126/107 H 100 Nasal Cannula 3 08/10/25 12:05 08/10/25 16:30 08/10/25 16:30 08/10/25 16:00 08/10/25 16:30 08/10/25 13:55 08/10/25 13:55 Laboratory Results - last 24 hr 08/10/25 12:07: WBC 9.3, RBC 3.39 L, Hgb 9.9 L, Hct 30.1 L, MCV 88.8, MCH 29.2, MCHC 32.9, RDW 13.3, Plt Count 495 H, MPV 8.5, Neut % (Auto) 82.3 H, Lymph % (Auto) 10.2, [place] % (Auto) 5.8, Eos % (Auto) 1.3, Baso % (Auto) 0.2, Neut # (Auto) 7.6, Lymph # (Auto) 0.9, [place] # (Auto) 0.5, Eos # (Auto) 0.1, Baso # (Auto) 0.0, Sodium 133 L, Potassium 4.2, Chloride 88 L, Carbon Dioxide 31 H, Anion Gap 18.2 H, BUN 11, Creatinine 0.70, Estimated Creat Clear 53, Estimated GFR 112, Est GFR ( Amer) 136, Glucose 84, Calcium 8.1 L, Magnesium 1.8, Total Bilirubin 0.6, AST 27, ALT 17, Alkaline Phosphatase 134 H, Troponin I < 0.01, C-Reactive Protein 33.2 H, Total Protein 8.2, Albumin 4.6, Globulin 3.6 H, Albumin/Globulin Ratio 1.3, Lipase 42 08/10/25 12:23: SARS-CoV-2 (PCR) Not detected, Influenza A Untype (PCR) Not detected, Influenza Type B (PCR) Not detected 08/10/25 12:35: VBG pH 7.27 L, VBG pCO2 69.2 H, VBG pO2 27.1 L, VBG HCO3 31.3 H, VBG Total CO2 33.4 H, VBG O2 Saturation 41.8 L, VBG Base Excess 4.4 H, VBG Lactic Acid 1.9 08/10/25 15:38: Troponin I < 0.01 I & O for Last 24 hours: Intake & Output 09/29/25 09/30/25 10/01/25 10/02/25 23:59 23:59 23:59 23:59 Intake Total 50 / 50 Balance 50 / 50 Weight 52.617 kg Constitutional Constitutional: moderate distress, cachectic, chronically ill appearing and cooperative *Routine HEENT Exam Head: Present atraumatic Eye: Present EOMI and PERRL ENT: Present mucous membranes moist Comments: Bitemporal wasting, loss of periorbital fat *Routine Neck Exam Neck: Present supple; Absent lymphadenopathy Routine Chest/Breast/Axilla Exam Comments: barrel chested *Routine Respiratory Exam Respiratory: Present accessory muscle use, prolonged expiratory phase, wheezes and diminished air movement; Absent rhonchi or normal respiratory effort *Routine Cardiovascular Exam Cardiovascular: Present RRR *Routine Abdominal Exam Abdominal: Present soft and normoactive bowel sounds; Absent tenderness *Routine Rectal Exam Rectal:: deferred *Routine Genitalia Exam Genitalia:: deferred *Routine Extremities Exam Extremities: Absent cyanosis, clubbing or edema *Routine Skin Exam Skin: Present intact and warm; Absent rash *Routine Neurological Exam Neurological: Present alert, oriented X3 and moving all extremities; Absent altered mental status Assessment and Plan *Assessment and plan (1) Acute on chronic respiratory failure with hypoxia and hypercapnia: Status: Acute Category: Medical Code(s): J96.21 - Acute and chronic respiratory failure with hypoxia; J96.22 - Acute and chronic respiratory failure with hypercapnia (2) Acute exacerbation of chronic obstructive pulmonary disease: Status: Acute Category: Medical Code(s): J44.1 - Chronic obstructive pulmonary disease with (acute) exacerbation (3) Shortness of breath: Status: Acute Category: Medical Code(s): R06.02 - Shortness of breath (4) On home oxygen therapy: Status: Chronic Category: Medical Code(s): Z99.81 - Dependence on supplemental oxygen (5) Tobacco dependence: Status: Chronic Category: Medical Code(s): F17.200 - Nicotine dependence, unspecified, uncomplicated (6) Small cell lung cancer: Status: Chronic Category: Medical Code(s): C34.90 - Malignant neoplasm of unspecified part of unspecified bronchus or lung (7) Essential hypertension: Status: Chronic Category: Medical Code(s): I10 - Essential (primary) hypertension (8) Cavitary lesion of lung: Status: Acute Category: Medical Code(s): J98.4 - Other disorders of lung (9) Pulmonary cachexia due to COPD: Status: Acute Category: Medical Code(s): R64 - Cachexia; J44.9 - Chronic obstructive pulmonary disease, unspecified (10) Severe protein-calorie malnutrition: Status: Acute Category: Medical Code(s): E43 - Unspecified severe protein-calorie malnutrition Plan 70-year-old male with history of lung cancer, severe COPD, presents with worsening shortness over the past 1 to 2 days. Was sent from pulmonology clinic to the ER for evaluation. On workup in the ED, found to be in exacerbation with increased oxygen requirement and new finding of cavitary lesion in right upper lung field. Discussed case with ER provider, request admission for further management of cavitary lesion and addressing his acute on chronic respiratory failure. Decided to admit to acute level of care. Necessitating inpatient care. Will treat with antibiotics, steroids, aggressive inhalers and pulmonary toilet. Pulmonology consulted to see patient in the morning. Problems addressed as follows: Acute on chronic hypoxic respiratory failure with hypercapnia due to COPD exacerbation Metastatic small cell lung cancer Cavitary lung lesion of right upper lobe -Presentation with normal white count at 9.3, hemoglobin 9.9. Normally on 2 to 3 L oxygen at home at baseline. Necessitating 5 to 6 L in the ER to maintain sats above 90%. Blood gas with elevated CO2 in the 60s. Initiated on dexamethasone and DuoNebs in the ED. - Pulmonology consulted to evaluate in the morning. - Continue doxycycline 100 mg twice daily for COPD exacerbation component - CT of chest per my review with cavitary lesion in right upper lung, new since last imaging. Concerning for progression of cancer - DuoNebs scheduled every 4 hours, lev albuterol as needed in between scheduled doses. - Respiratory panel negative for flu and COVID - Repeat CBC, CMP, magnesium ordered for the morning. -Continue methylprednisolone 40 mg IV 3 times a day. Reevaluate in the morning. -N.p.o. at midnight for possible bronchoscopy Kidney function at baseline with BUN 11, creatinine 0.7. Potassium normal at 4.2. Tobacco use disorder: Counseled on need to stop smoking. Seriously complicates patient's respiratory disease. Nicotine patch as needed daily during admission. 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 Protein supplementation with meals Continue tamsulosin 0.4 mg nightly for BPH Continue trazodone 100 mg nightly for sleep disorder Continue propranolol 20 mg twice daily for tachycardia/hypertension DNI Regular diet, n.p.o. at midnight Heparin SQ 3 times daily
[2025-08-10] MEDS: DOXYCYCLINE HYCLATE 200 MG in 0.9 % SODIUM CHLORIDE 250 ML 166.67 MG IV (17:07)
--- NOTE | 2025-08-10 17:10 | PC.NURSE ---
provider declined blood cultures
[2025-08-10] MEDS: IPRATROPIUM/ALBUTEROL 3 ML NEB IH ×2 (18:30→22:55)
[2025-08-10] MEDS: METHYLPREDNISOLONE SOD SUCC 40MG VIAL 40 MG IV (18:57)
[2025-08-10 19:20] LABS: Troponin I < 0.01 ng/ml (0.00-0.034)
[2025-08-10] MEDS: PROPRANOLOL 20MG TAB 20 MG PO (21:03)
[2025-08-10] MEDS: TRAZODONE 50MG TABLET 100 MG PO (21:03)
[2025-08-10] MEDS: TAMSULOSIN 0.4MG CAPSULE 0.4 MG PO (21:03)
[2025-08-11] VITALS (9 sets, daily range): BP systolic 106–121; BP diastolic 63–78; PULSE 75–96; RESP 17–20; TEMP 36.5–36.8; O2SAT 93–100; BMI 15.5
[2025-08-11] MEDS: IPRATROPIUM/ALBUTEROL 3 ML NEB IH ×4 (01:31→13:13)
[2025-08-11] MEDS: METHYLPREDNISOLONE SOD SUCC 40MG VIAL 40 MG IV ×2 (02:03→09:45)
[2025-08-11 05:52] LABS: Hematocrit 27.4 % (42.0-52.0); Immature Granulocytes % 0.8 %; Mean Corpuscular HGB Conc 32.5 g/dL (31.8-35.4); Mean Corpuscular Hemoglobin 28.5 pg (27.0-31.2); Mean Corpuscular Volume 87.8 fl (80-94); Nucleated Red Blood Cells % 0 %; Platelet Count 432 K/mm3 (142-424); Red Blood Count 3.12 M/mm3 (4.60-6.20); Red Cell Distribution Width-SD 41.7 fL; White Blood Count 2.4 K/mm3 (4.8-10.8)
[2025-08-11 05:53] LABS: Hemoglobin 9.0 g/dL (14.1-18.0)
[2025-08-11 06:01] LABS: Albumin Level 4.1 g/dl (3.5-5.0); Chloride 90 mmol/L (98-107); Sodium 133 mmol/L (136-145)
[2025-08-11 06:02] LABS: Potassium 4.1 mmoL/L (3.5-5.1)
[2025-08-11 06:04] LABS: Alanine Aminotransferase 13 U/L (12-78); Anion Gap 16.1 mEq/L (5-15); Aspartate Amino Transferase 27 U/L (17-59); Blood Urea Nitrogen 11 mg/dl (9-20); Carbon Dioxide 31 mmol/L (22.0-30.0); Creatinine Clearance Estimated 49 mL/min (50-200); Creatinine,Serum 0.60 mg/dl (0.66-1.25); Estimated Glomerular Filt Rate 134 ml/min (>60); GFR (African American) 162 ML/MIN (>60)
[2025-08-11 06:05] LABS: Albumin/Globulin Ratio 1.2 (1.1-1.8); Alkaline Phosphatase 116 U/L (38-126); Bilirubin,Total 0.2 mg/dl (0.2-1.3); Calcium 7.8 mg/dl (8.4-10.2); Globulin 3.5 g/dL (1.3-3.2); Glucose 145 mg/dl (74-100); Magnesium 1.8 mg/dl (1.6-2.3); Total Protein,Serum 7.6 g/dl (6.3-8.2)
--- NOTE | 2025-08-11 09:34 | HMH.PTEV ---
Physical Therapy Evaluation Rehab PT IP Evaluation Start: 08/10/25 17:01 Freq: ONCE Status: Active Protocol: Document 08/11/25 09:22 MATT (Rec: 08/11/25 09:34 MATT [id number]) Subjective/History History History 70-year-old male with a medical history significant for COPD on 3 L at baseline, pulmonary cachexia, metastatic small cell lung cancer. Presents to the ER at the request of pulmonology for worsening shortness of breath and concern for abnormal lesion on chest x- ray and his right upper lung field. Patient also has been having weakness in his legs and falling at home. In the ER, he is in distress and was increased to 5 to 6 L nasal cannula to improve O2 sats above 90%. Continues to smoke about three quarters of a pack a day . Denies significant productive cough but is having some thick sputum. Denies fever or chills. Has had some suspected weight loss. On workup in the ER, found to have white count of 9.3, hemoglobin 9.9. Kidney function at baseline. CT of chest however shows new cavitary lesion in his right upper lung. Also has a rib fracture of his sixth rib on the left side from a fall 3 weeks ago. Increased work of breathing and respiratory distress along with cavitary lesion concerning. Medicine consulted for admission and further workup. Subjective Subjective Pt reports he lives with family, [address] the home, he is generally independent with all mobility and ADLs without an AD at baseline. He does report having cane and walker at home if needed. He did suffer a recent fall on his steps with resulting rib fxs. He reports no new c/o this am and agrees to mobility assessment. [facility] How much help from another person do you currently need... Turning from your None back to your side while in a flat bed without using bedrails? Moving from lying on None back to sitting on the side of a flat bed without using bedrails? Moving to and from a None bed to a chair ( including a wheelchair)? Standing up from a None chair using your arms? (e.g., wheelchair, bedside chair) Walking in hospital None room? Climbing 3-5 steps None with a railing? Mobility Score 24 Mobility Level [facility] Mobility Walk 250 feet or more Mobility Calculator Rehab PT IP Eval Objective Appearance Patient Behavior Appropriate Patient Orientation Person,Place,Time Difficulty following none instructions Speech Pattern Clear Ambulation Patient Able to Yes Ambulate Ambulation Observation IP General Gait No Deviations/Normal Pattern Observation Ambulation Distance 30 (feet) Ambulation Assistive None Device Ambulation Ability Supervision/Stand by Balance Ability to Arise Able, uses arms to help Sitting Balance Steady, safe Standing Balance Steady, wide stance Dynamic Sitting Good Balance Ability Dynamic Standing Good Balance Ability Transfers Bed Transfer Ability Independent Chair Transfer Independent Ability Sit to Stand Bed Independent Transfer Ability Sit to Stand Chair Independent Transfer Ability ROM All Extremities PT ROM Status WFL MMT All Extremities PT MMT WFL Rehab PT IP prob,goals,plan Problems Date of Evaluation: 08/11/25 Discharge Plan PT Discharge Plan Pt is currently appropriate to return home once medically stable for d/c. No current skilled acute therapy needs. Eval Complexity Eval Charge Codes 16370 - High Complexity PHYSICIAN CERTIFICATION: I certify the specified therapy services for Alejandro Madera are required, authorized, and reviewed every 30 days.
[2025-08-11] MEDS: PROPRANOLOL 20MG TAB 20 MG PO (09:40)
--- NOTE | 2025-08-11 09:51 | EXP.PULM.CON ---
History of Present Illness History of present illness: Mr. Simmons is a 70-year-old male greater than 30 PPD COPD chronic hypoxic respiratory failure small cell lung cancer presented to the clinic with worsening respiratory status sent to the admitted admitted to the hospital for management of COPD exacerbation evaluate for frequent falls and also for the newly noted right upper lobe cavitary lesion. [facility] Disclaimer: The information contained in this section may have been updated after the patient was seen, as this information can be updated by other users. Medical History (Updated 08/10/25 @ 17:46 by Shadia Reynoso RN) Hypomagnesemia Hypocalcemia Hypomagnesemia Hypocalcemia COPD exacerbation Hypocalcemia Acute exacerbation of chronic obstructive pulmonary disease Acute on chronic hypoxic respiratory failure Asthma exacerbation in COPD Shortness of breath Acute exacerbation of chronic obstructive pulmonary disease Dyspnea On home oxygen therapy Acute and chronic respiratory failure with hypercapnia Acute exacerbation of chronic obstructive airways disease Community acquired pneumonia Bilateral impacted cerumen Tinnitus Hearing loss Lung nodule Hilar lymphadenopathy Pneumonia Sleep apnea Emphysema/COPD Chronic cough Bronchitis Allergies History of anemia Lung collapse Nodule of right lung Tobacco abuse disorder Tobacco abuse counseling Small cell lung cancer Smoking greater than 30 pack years Chronic hypoxemic respiratory failure COPD (chronic obstructive pulmonary disease) Dyspnea on exertion On home O2 Sinus problem History of chemotherapy History of radiation therapy Personal history of arthritis History of lung disease Hyperlipemia Cancer Asthma Essential hypertension COPD exacerbation Surgical History History of insertion of tunneled central venous catheter (CVC) with port History of colonoscopy Hx of cardiac catheterization Normal coronary arteries History of sinus surgery Family History Diabetes Cancer Social History Smoking Status: Current every day smoker tobacco type: cigarettes packs per day: 1 years smoked: 50 alcohol intake: former substance use type: denies use current occupational status: retired and disabled Travel in the last 8 weeks?: None household members: spouse housing: house caffeine: Yes Review of Systems Constitutional Constitutional: Reports anorexia, Reports body ache(s), Reports fatigue and Reports frequent falls Eyes Eyes: Denies eye discharge, Denies dry eyes, Denies irritation and Denies itchy eyes ENT Ears, Nose, Mouth, and Throat: Denies epistaxis, Denies facial pain, Denies lip swelling and Denies throat swelling *Cardiovascular Cardiovascular: Reports dyspnea and Reports dyspnea on exertion *Respiratory Respiratory: Denies change in phlegm color, Reports chest congestion, Reports cough, Reports dyspnea, Reports dyspnea on exertion, Reports excessive phlegm production, Denies hemoptysis, Reports pain on inspiration, Reports pain with cough and Reports wheezing *Gastrointestinal Gastrointestinal: Denies abdominal pain, Denies belching and Denies cramping *Musculoskeletal Musculoskeletal: Reports back pain, Reports myalgias, Reports numbness and Reports other (No small joint swelling or Pain) *Neurologic Neurologic: Reports frequent falls and Reports numbness Psychiatric Psychiatric: Denies homicidal ideation and Denies suicidal ideation Endocrine Endocrine: Reports fatigue and Denies heat intolerance Hematologic/Lymphatic Hematologic/Lymphatic: Denies easy bleeding and Denies lymphadenopathy Allergic/Immunologic Allergic/Immunologic: Denies itchy eyes, Denies lip swelling, Denies throat swelling and Reports wheezing Pulmonology Exam Inpatient Vital signs and Labs for Last 24 Hours: Temp Pulse Resp BP Pulse Ox O2 Del Method O2 Flow Rate 97.7 F 91 H 20 106/76 L 100 Nasal Cannula 3 08/11/25 08:00 08/11/25 08:00 08/11/25 08:00 08/11/25 08:00 08/11/25 08:00 08/11/25 08:00 08/11/25 08:00 Laboratory Results - last 24 hr 08/10/25 12:07: WBC 9.3, RBC 3.39 L, Hgb 9.9 L, Hct 30.1 L, MCV 88.8, MCH 29.2, MCHC 32.9, RDW 13.3, Plt Count 495 H, MPV 8.5, Neut % (Auto) 82.3 H, Lymph % (Auto) 10.2, [place] % (Auto) 5.8, Eos % (Auto) 1.3, Baso % (Auto) 0.2, Neut # (Auto) 7.6, Lymph # (Auto) 0.9, [place] # (Auto) 0.5, Eos # (Auto) 0.1, Baso # (Auto) 0.0, ESR 125 H, Sodium 133 L, Potassium 4.2, Chloride 88 L, Carbon Dioxide 31 H, Anion Gap 18.2 H, BUN 11, Creatinine 0.70, Estimated Creat Clear 53, Estimated GFR 112, Est GFR ( Amer) 136, Glucose 84, Calcium 8.1 L, Magnesium 1.8, Total Bilirubin 0.6, AST 27, ALT 17, Alkaline Phosphatase 134 H, Troponin I < 0.01, C-Reactive Protein 33.2 H, Total Protein 8.2, Albumin 4.6, Globulin 3.6 H, Albumin/Globulin Ratio 1.3, Lipase 42 08/10/25 12:23: SARS-CoV-2 (PCR) Not detected, Influenza A Untype (PCR) Not detected, Influenza Type B (PCR) Not detected 08/10/25 12:35: VBG pH 7.27 L, VBG pCO2 69.2 H, VBG pO2 27.1 L, VBG HCO3 31.3 H, VBG Total CO2 33.4 H, VBG O2 Saturation 41.8 L, VBG Base Excess 4.4 H, VBG Lactic Acid 1.9 08/10/25 15:38: Troponin I < 0.01 08/10/25 18:40: Troponin I < 0.01 08/11/25 05:02: WBC 2.4 L D, RBC 3.12 L, Hgb 9.0 L, Hct 27.4 L, MCV 87.8, MCH 28.5, MCHC 32.5, RDW 13.2, Plt Count 432 H, MPV 8.8, Neut % (Auto) 73.3, Lymph % (Auto) 24.2, [place] % (Auto) 1.7, Eos % (Auto) 0.0 L, Baso % (Auto) 0.0 L, Neut # (Auto) 1.7 L, Lymph # (Auto) 0.6 L, [place] # (Auto) 0.0 L, Eos # (Auto) 0.0, Baso # (Auto) 0.0, Sodium 133 L, Potassium 4.1, Chloride 90 L, Carbon Dioxide 31 H, Anion Gap 16.1 H, BUN 11, Creatinine 0.60 L, Estimated Creat Clear 49, Estimated GFR 134, Est GFR ( Amer) 162, Glucose 145 H D, Calcium 7.8 L, Magnesium 1.8, Total Bilirubin 0.2, AST 27, ALT 13, Alkaline Phosphatase 116, Total Protein 7.6, Albumin 4.1 D, Globulin 3.5 H, Albumin/Globulin Ratio 1.2 I & O for Labs for Last 24 Hours: Intake & Output 08/08/25 08/09/25 08/10/25 08/11/25 23:59 23:59 23:59 23:59 Intake Total 300 / 540 240 / 240 Output Total 0 / 0 0 / 0 Balance 300 / 540 240 / 240 Weight 107 lb 8 oz 108 lb 8 oz Microbiology Reports for the Last 24 Hours: Microbiology 08/10/25 18:43 Sputum - Expectorated Sputum Gram Stain - Final Constitutional: Present moderate distress Head: Present normocephalic and atraumatic ENT: Present normal exam, normal oropharynx and mucous membranes moist Neck: Present normal inspection and full ROM Respiratory: Present prolonged expiratory phase, rhonchi, diminished air movement and able to speak in complete sentences; Absent wheezes Cardiac: Present S1/S2, Tachycardia and radial pulses present GI: Present soft and distention; Absent tenderness or guarding Skin: Present intact; Absent cyanosis or jaundice Neuro: Present alert, awake and oriented x 3 Extremities: Present normal inspection; Absent clubbing or cyanosis Psychiatric: Present normal affect and cooperative Meds Home Medications and Allergies Home Medications ?Medication ?Instructions ?Recorded ?Confirmed ?Type trazodone 150 mg tablet 150 mg PO HS 07/03/22 08/10/25 History aspirin 325 mg tablet 325 mg PO DAILY 05/11/23 08/10/25 History propranolol 20 mg tablet 20 mg PO BID 08/23/24 08/10/25 History calcium carbonate (Calcium 500) 1,000 mg (2 x 500 mg calcium 10/01/24 08/10/25 Rx (1,250 mg)) PO DAILY #10 tabs ferrous sulfate 325 mg (65 mg 325 mg PO DAILY #90 tabs 11/29/24 08/10/25 Rx iron) tablet ipratropium 0.5 mg-albuterol 3 mg 3 ml inhalation QIDP PRN Shortness 02/08/25 08/10/25 Rx (2.5 mg base)/3 mL nebulization Of Breath Or Wheezing 90 days #180 soln mL budesonide 160 mcg-glycopyr 9 2 inh inhalation BID 90 days #10.7 03/27/25 08/10/25 Rx mcg-formot 4.8 mcg/actuation HFA grams inhaler ([employer]) tamsulosin 0.4 mg capsule 0.4 mg PO DAILY 05/30/25 08/10/25 History albuterol sulfate 90 mcg/actuation 2 inh inhalation QID PRN shortness 07/11/25 08/10/25 Rx aerosol inhaler of breath or wheezing 90 days #8.5 grams amoxicillin 875 mg-potassium 1 tab PO Q12H 13 days #26 tabs 08/11/25 Rx clavulanate 125 mg tablet azelastine 137 mcg (0.1 %) nasal 1 spray intranasal Q6HP PRN 08/11/25 08/11/25 History spray allergy symptoms polyethylene glycol 3350 17 gram 17 g PO DAILYP PRN Constipation 08/11/25 08/11/25 History oral powder packet ([employer]) prednisone 20 mg tablet 40 mg (2 x 20 mg) PO DAILY 3 days 08/11/25 Rx #6 tabs New Prescriptions to Start Prescriptions: amoxicillin-pot clavulanate Nicolas Tomas prednisone Nicolas Tomas Allergies Allergy/AdvReac Type Severity Reaction Status Date / Time silver (From [employer] Allergy Severe Rash Verified 05/30/25 10:45 Mesh) doxycycline Allergy Mild GI upset Verified 08/10/25 11:05 Penicillins (PENICILLINS) Allergy Mild Unknown Verified 08/10/25 11:05 allergy reaction amitriptyline AdvReac Intermediate gi upset Verified 05/30/25 10:45 adhesive AdvReac Rash Verified 08/10/25 11:05 hydrocodone AdvReac gi upset Verified 08/10/25 11:05 Results Laboratory Findings 08/11/25 05:02 08/11/25 05:02 Abnormal lab findings: Abnormal Labs 08/10/25 08/10/25 08/11/25 12:07 12:35 05:02 WBC 2.4 L D RBC 3.39 L 3.12 L Hgb 9.9 L 9.0 L Hct 30.1 L 27.4 L Plt Count 495 H 432 H Neut % (Auto) 82.3 H Eos % (Auto) 0.0 L Baso % (Auto) 0.0 L Neut # (Auto) 1.7 L Lymph # (Auto) 0.6 L [place] # (Auto) 0.0 L ESR 125 H VBG pH 7.27 L VBG pCO2 69.2 H VBG pO2 27.1 L VBG HCO3 31.3 H VBG Total CO2 33.4 H VBG O2 Saturation 41.8 L VBG Base Excess 4.4 H Sodium 133 L 133 L Chloride 88 L 90 L Carbon Dioxide 31 H 31 H Anion Gap 18.2 H 16.1 H Creatinine 0.60 L Glucose 145 H D Calcium 8.1 L 7.8 L Alkaline Phosphatase 134 H C-Reactive Protein 33.2 H Globulin 3.6 H 3.5 H Assessment and Plan *Assessment and plan (1) Cavitary lesion of lung: Status: Acute Category: Medical Code(s): J98.4 - Other disorders of lung (2) On home oxygen therapy: Status: Chronic Category: Medical Code(s): Z99.81 - Dependence on supplemental oxygen (3) Acute exacerbation of chronic obstructive pulmonary disease: Status: Acute Category: Medical Code(s): J44.1 - Chronic obstructive pulmonary disease with (acute) exacerbation Plan Mr. Simmons is a 70-year-old male greater than 30 PPD COPD chronic hypoxic respiratory failure small cell lung cancer presented to the clinic with worsening respiratory status sent to the admitted admitted to the hospital for management of COPD exacerbation evaluate for frequent falls and also for the newly noted right upper lobe cavitary lesion. Afebrile. Hemodynamically stable. Leukopenia. COVID-19 and flu PCR panel negative. CT PE protocol upon admission no pulmonary embolism. New right upper lobe cavitary lesion with adjacent nodular opacity/airspace disease. Significant improvement patient's in respiratory distress. Pain well-controlled at this point of time. Primary team evaluating for possible etiology frequent falls likely from weakness than organic pathology at this point of time. Plan: Incentive spirometry and flutter valve Continue DuoNebs every 6 hours along with Pulmicort Q12 scheduled Steroids can be weaned to prednisone 40 mg daily to complete a total of 5-day course Augmentin 3 times daily for the concerning right upper lobe cavitary pneumonia. Follow-up with sputum cultures, serum fungal serologies urine histo antigen and Fungitell. Given other possible etiology including infectious/malignant, will plan for outpatient and robotic bronchoscopy transbronchial biopsy. Continue oxygen supplementation to maintain O2 saturation goal of 90% and above, patient currently at his baseline oxygen supplementation. Will follow the patient pulmonary clinic 5 to 7 days postdischarge
[2025-08-11] MEDS: DOXYCYCLINE HYCLATE 100 MG in 0.9 % SODIUM CHLORIDE 250 ML 167 MG IV (09:54)
--- NOTE | 2025-08-11 09:54 | HMH.OTEV ---
OT Evaluation Rehab OT IP Evaluation Start: 08/10/25 17:01 Freq: ONCE Status: Active Protocol: Document 08/11/25 09:48 PHIKATHE (Rec: 08/11/25 09:53 KRISTIE [id number]) Rehab OT IP Assessment Subjective History Alejandro Madera is a 70-year-old male with a medical history significant for COPD on 3 L at baseline, pulmonary cachexia, metastatic small cell lung cancer. Presents to the ER at the request of pulmonology for worsening shortness of breath and concern for abnormal lesion on chest x-ray and his right upper lung field. Patient also has been having weakness in his legs and falling at home. In the ER, he is in distress and was increased to 5 to 6 L nasal cannula to improve O2 sats above 90%. Continues to smoke about three quarters of a pack a day. Denies significant productive cough but is having some thick sputum. Denies fever or chills. Has had some suspected weight loss. On workup in the ER, found to have white count of 9.3, hemoglobin 9.9. Kidney function at baseline. CT of chest however shows new cavitary lesion in his right upper lung. Also has a rib fracture of his sixth rib on the left side from a fall 3 weeks ago. Increased work of breathing and respiratory distress along with cavitary lesion concerning. Medicine consulted for admission and further workup. On my evaluation, patient appears in mild to moderate distress on his baseline level of respiratory distress. Cachectic in appearance. Wheeze on exam. at bedside. Able to answer questions appropriately but answers in brief sentences. Patient lives at home with in 2 story home with 6- 7 GWEN with ramp. Patient and stated that they do not use the stairs at home. Subjective I need to use the restroom. Analysis Patient's ability to complete bed mobility, transfers, fx'l mobility and toileting independently. Patient stated he has a hx of falling at home. Objective Patient Orientation Person,Place,Name,Age Right Upper WFL Extremity Gross ROM Left Upper Extremity WFL Gross ROM Bed Mobility bed mobility - supine/sit Assist Level Independent Transfer Training Sit/Stand Transfer,Sit/Stand/Step Transfer Assist Level Independent Chair Transfer Independent Ability Chair Transfer Sit to/from Ambulatory Technique Chair Transfer Rolling Walker Assistive Devices Rehab OT IP prob,goals,plan Problems Date of Evaluation: 08/11/25 Rehab Potential Rehab Potential Innapropriate for Skilled Therapy Discharge Plan OT Discharge Plan Patient appears to be at baseline with ADLs and fx'l mobility. Recommend patient to return home after medical d/c. Eval Complexity Eval Charge Codes 58205 - Low Complexity PHYSICIAN CERTIFICATION: I certify the specified therapy services for Alejandro Madera are required, authorized, and reviewed every 30 days.
--- NOTE | 2025-08-11 11:27 | HMH.PHAAMS2 ---
- Antimicrobial Stewardship Review notify provider Stewardship interventions: notify provider Comments: CONTINUED DOXYCYCLINE PER RAMONE'S ORDER FOR EMPIRIC THERAPY, CUTLTURES PENDING
--- NOTE | 2025-08-11 12:45 | EXP.DC.SUM ---
General Admission date:: 08/10/25 Discharge date: 08/11/25 HPI HPI HPI: Alejandro Madera is a 70-year-old male with a medical history significant for COPD on 3 L at baseline, pulmonary cachexia, metastatic small cell lung cancer. Presents to the ER at the request of pulmonology for worsening shortness of breath and concern for abnormal lesion on chest x-ray and his right upper lung field. Patient also has been having weakness in his legs and falling at home. In the ER, he is in distress and was increased to 5 to 6 L nasal cannula to improve O2 sats above 90%. Continues to smoke about three quarters of a pack a day. Denies significant productive cough but is having some thick sputum. Denies fever or chills. Has had some suspected weight loss. On workup in the ER, found to have white count of 9.3, hemoglobin 9.9. Kidney function at baseline. CT of chest however shows new cavitary lesion in his right upper lung. Also has a rib fracture of his sixth rib on the left side from a fall 3 weeks ago. Increased work of breathing and respiratory distress along with cavitary lesion concerning. Medicine consulted for admission and further workup. On my evaluation, patient appears in mild to moderate distress on his baseline level of respiratory distress. Cachectic in appearance. Wheeze on exam. at bedside. Able to answer questions appropriately but answers in brief sentences. Hospital Course Hospital Course Hospital Course: 70-year-old male with history of lung cancer, severe COPD, presents with worsening shortness over the past 1 to 2 days. Was sent from pulmonology clinic to the ER for evaluation. On workup in the ED, found to be in exacerbation with increased oxygen requirement and new finding of cavitary lesion in right upper lung field. Discussed case with ER provider, request admission for further management of cavitary lesion and addressing his acute on chronic respiratory failure. Decided to admit to acute level of care. Patient observation from the start. Initiated on antibiotics and steroids and every 4 breathing treatments. Showed improvement by morning. On baseline oxygen throughout duration of admission. Pulmonology consulted and evaluated in the morning, plan for close follow-up with outpatient bronchoscopy and biopsy of cavitary/necrotic lung lesion. Stable discharge home. Problems addressed as follows: Acute on chronic hypoxic respiratory failure with hypercapnia due to COPD exacerbation Metastatic small cell lung cancer Cavitary lung lesion of right upper lobe -Presentation with normal white count at 9.3, hemoglobin 9.9. Normally on 2 to 3 L oxygen at home at baseline. Necessitating 5 to 6 L in the ER to maintain sats above 90%. Blood gas with elevated CO2 in the 60s. Initiated on dexamethasone and DuoNebs in the ED. admitted for further management. Showed improvement overnight. Back to baseline level of breathing by morning. Initially on doxycycline. Will transition to Augmentin to treat suspected infectious source. Fungal workup labs obtained, pending at discharge. CT of chest showed cavitary lesion in right upper lung that is new since his last imaging. Concern for progression of cancer versus cavitary infection. White count dropped to 2.4 by following morning after admission. Respiratory panel negative for flu and COVID. Pulmonology evaluated, recommend close follow-up for bronchoscopy as an outpatient to evaluate etiology of lesion. Stable discharge home. Transition to Augmentin 875. Will complete twice daily for total 14 days of antibiotics. Will continue steroids to complete 5 days total course. Kidney function at baseline with BUN 11, creatinine 0.6. Potassium normal at 4.1. Sodium 133 with magnesium 1.8. Tobacco use disorder: Counseled on need to stop smoking. Seriously complicates patient's respiratory disease. Nicotine patch as needed daily during admission. 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 Protein supplementation with meals Continue tamsulosin 0.4 mg nightly for BPH Continue trazodone 100 mg nightly for sleep disorder Continue propranolol 20 mg twice daily for tachycardia/hypertension Total time spent on discharge 32 minutes in counseling, documentation, chart review, and direct care with patient. Exam Data for Last 24 hours Vital signs and Labs for Last 24 Hours: Temp Pulse Resp BP Pulse Ox O2 Del Method O2 Flow Rate 98.3 F 83 18 121/78 94 L Nasal Cannula 3 08/11/25 12:00 08/11/25 12:00 08/11/25 12:00 08/11/25 12:00 08/11/25 12:00 08/11/25 12:00 08/11/25 12:00 Laboratory Results - last 24 hr 08/10/25 12:07: ESR 125 H, Troponin I < 0.01, C-Reactive Protein 33.2 H 08/10/25 12:23: SARS-CoV-2 (PCR) Not detected, Influenza A Untype (PCR) Not detected, Influenza Type B (PCR) Not detected 08/10/25 15:38: Troponin I < 0.01 08/10/25 18:40: Troponin I < 0.01 08/11/25 05:02: WBC 2.4 L D, RBC 3.12 L, Hgb 9.0 L, Hct 27.4 L, MCV 87.8, MCH 28.5, MCHC 32.5, RDW 13.2, Plt Count 432 H, MPV 8.8, Neut % (Auto) 73.3, Lymph % (Auto) 24.2, Bartholomew % (Auto) 1.7, Eos % (Auto) 0.0 L, Baso % (Auto) 0.0 L, Neut # (Auto) 1.7 L, Lymph # (Auto) 0.6 L, Bartholomew # (Auto) 0.0 L, Eos # (Auto) 0.0, Baso # (Auto) 0.0, Sodium 133 L, Potassium 4.1, Chloride 90 L, Carbon Dioxide 31 H, Anion Gap 16.1 H, BUN 11, Creatinine 0.60 L, Estimated Creat Clear 49, Estimated GFR 134, Est GFR ( Amer) 162, Glucose 145 H D, Calcium 7.8 L, Magnesium 1.8, Total Bilirubin 0.2, AST 27, ALT 13, Alkaline Phosphatase 116, Total Protein 7.6, Albumin 4.1 D, Globulin 3.5 H, Albumin/Globulin Ratio 1.2 I & O for Last 24 hours: Intake & Output 08/08/25 08/09/25 08/10/25 08/11/25 23:59 23:59 23:59 23:59 Intake Total 300 / 540 490 / 490 Output Total 0 / 0 0 / 0 Balance 300 / 540 490 / 490 Weight 48.761 kg 49.215 kg Microbiology Reports for the Last 24 Hours: Microbiology 08/10/25 18:43 Sputum - Expectorated Sputum Gram Stain - Final Constitutional Constitutional: mild distress (baseline), cachectic, chronically ill appearing and cooperative *Routine HEENT Exam Head: Present normocephalic Eye: Present EOMI and PERRL ENT: Present mucous membranes moist *Routine Neck Exam Neck: Present supple; Absent lymphadenopathy Routine Chest/Breast/Axilla Exam Comments: Barrel chested *Routine Respiratory Exam Respiratory: Present prolonged expiratory phase, wheezes and diminished air movement; Absent rhonchi or crackles Comments: Intermittent pursed lips exhalation *Routine Cardiovascular Exam Cardiovascular: Present RRR *Routine Abdominal Exam Abdominal: Present soft and normoactive bowel sounds; Absent tenderness *Routine Rectal Exam Patient deferred: visual exam *Routine Exam Patient deferred: penile exam *Routine Extremities Exam Extremities: Absent cyanosis, clubbing or edema Comments: Sarcopenia, thin *Routine Skin Exam Skin: Present intact, pallor and warm; Absent rash *Routine Neurological Exam Neurological: Present alert, oriented X3 and moving all extremities; Absent sensory deficit (Light touch and pinprick present in feet bilaterally on exam) or altered mental status Results Data Completed and Pending Labs on day of discharge: Labs from last 24 hours 08/11/25 08/10/25 08/10/25 05:02 18:40 15:38 WBC 2.4 L D RBC 3.12 L Hgb 9.0 L Hct 27.4 L MCV 87.8 MCH 28.5 MCHC 32.5 RDW 13.2 Plt Count 432 H MPV 8.8 Neut % (Auto) 73.3 Lymph % (Auto) 24.2 Bartholomew % (Auto) 1.7 Eos % (Auto) 0.0 L Baso % (Auto) 0.0 L Neut # (Auto) 1.7 L Lymph # (Auto) 0.6 L Bartholomew # (Auto) 0.0 L Eos # (Auto) 0.0 Baso # (Auto) 0.0 ESR Sodium 133 L Potassium 4.1 Chloride 90 L Carbon Dioxide 31 H Anion Gap 16.1 H BUN 11 Creatinine 0.60 L Estimated Creat Clear 49 Estimated GFR 134 Est GFR ( Amer) 162 Glucose 145 H D Calcium 7.8 L Magnesium 1.8 Total Bilirubin 0.2 AST 27 ALT 13 Alkaline Phosphatase 116 Troponin I < 0.01 < 0.01 C-Reactive Protein Total Protein 7.6 Albumin 4.1 D Globulin 3.5 H Albumin/Globulin Ratio 1.2 SARS-CoV-2 (PCR) Influenza A Untype (PCR) Influenza Type B (PCR) 08/10/25 08/10/25 12:23 12:07 WBC RBC Hgb Hct MCV MCH MCHC RDW Plt Count MPV Neut % (Auto) Lymph % (Auto) Bartholomew % (Auto) Eos % (Auto) Baso % (Auto) Neut # (Auto) Lymph # (Auto) Bartholomew # (Auto) Eos # (Auto) Baso # (Auto) ESR 125 H Sodium Potassium Chloride Carbon Dioxide Anion Gap BUN Creatinine Estimated Creat Clear Estimated GFR Est GFR ( Amer) Glucose Calcium Magnesium Total Bilirubin AST ALT Alkaline Phosphatase Troponin I < 0.01 C-Reactive Protein 33.2 H Total Protein Albumin Globulin Albumin/Globulin Ratio SARS-CoV-2 (PCR) Not detected Influenza A Untype (PCR) Not detected Influenza Type B (PCR) Not detected DS: Diagnosis Discharge Diagnosis (1) Acute on chronic respiratory failure with hypoxia and hypercapnia: Status: Acute Code(s): J96.21 - Acute and chronic respiratory failure with hypoxia; J96.22 - Acute and chronic respiratory failure with hypercapnia (2) Acute exacerbation of chronic obstructive pulmonary disease: Status: Acute Code(s): J44.1 - Chronic obstructive pulmonary disease with (acute) exacerbation (3) Shortness of breath: Status: Acute Code(s): R06.02 - Shortness of breath (4) On home oxygen therapy: Status: Chronic Code(s): Z99.81 - Dependence on supplemental oxygen (5) Tobacco dependence: Status: Chronic Code(s): F17.200 - Nicotine dependence, unspecified, uncomplicated (6) Small cell lung cancer: Status: Chronic Code(s): C34.90 - Malignant neoplasm of unspecified part of unspecified bronchus or lung (7) Essential hypertension: Status: Chronic Code(s): I10 - Essential (primary) hypertension (8) Cavitary lesion of lung: Status: Acute Code(s): J98.4 - Other disorders of lung (9) Pulmonary cachexia due to COPD: Status: Acute Code(s): R64 - Cachexia; J44.9 - Chronic obstructive pulmonary disease, unspecified (10) Severe protein-calorie malnutrition: Status: Acute Code(s): E43 - Unspecified severe protein-calorie malnutrition Meds Home Medications and Allergies Home Medications ?Medication ?Instructions ?Recorded ?Confirmed ?Type trazodone 150 mg tablet 150 mg PO HS 07/03/22 08/10/25 History aspirin 325 mg tablet 325 mg PO DAILY 05/11/23 08/10/25 History propranolol 20 mg tablet 20 mg PO BID 08/23/24 08/10/25 History calcium carbonate (Calcium 500) 1,000 mg (2 x 500 mg calcium 10/01/24 08/10/25 Rx (1,250 mg)) PO DAILY #10 tabs ferrous sulfate 325 mg (65 mg 325 mg PO DAILY #90 tabs 11/29/24 08/10/25 Rx iron) tablet ipratropium 0.5 mg-albuterol 3 mg 3 ml inhalation QIDP PRN Shortness 02/08/25 08/10/25 Rx (2.5 mg base)/3 mL nebulization Of Breath Or Wheezing 90 days #180 soln mL budesonide 160 mcg-glycopyr 9 2 inh inhalation BID 90 days #10.7 03/27/25 08/10/25 Rx mcg-formot 4.8 mcg/actuation HFA grams inhaler (Breztri Aerosphere) tamsulosin 0.4 mg capsule 0.4 mg PO DAILY 05/30/25 08/10/25 History albuterol sulfate 90 mcg/actuation 2 inh inhalation QID PRN shortness 07/11/25 08/10/25 Rx aerosol inhaler of breath or wheezing 90 days #8.5 grams amoxicillin 875 mg-potassium 1 tab PO Q12H 13 days #26 tabs 08/11/25 Rx clavulanate 125 mg tablet azelastine 137 mcg (0.1 %) nasal 1 spray intranasal Q6HP PRN 08/11/25 08/11/25 History spray allergy symptoms polyethylene glycol 3350 17 gram 17 g PO DAILYP PRN Constipation 08/11/25 08/11/25 History oral powder packet (HealthyLax) prednisone 20 mg tablet 40 mg (2 x 20 mg) PO DAILY 3 days 08/11/25 Rx #6 tabs New Prescriptions to Start Prescriptions: amoxicillin-pot clavulanate Nicolas Tomas prednisone Nicolas Tomas Allergies Allergy/AdvReac Type Severity Reaction Status Date / Time silver (From Tegaderm AG Allergy Severe Rash Verified 05/30/25 10:45 Mesh) doxycycline Allergy Mild GI upset Verified 08/10/25 11:05 Penicillins (PENICILLINS) Allergy Mild Unknown Verified 08/10/25 11:05 allergy reaction amitriptyline AdvReac Intermediate gi upset Verified 05/30/25 10:45 adhesive AdvReac Rash Verified 08/10/25 11:05 hydrocodone AdvReac gi upset Verified 08/10/25 11:05 Discharge Plan Disposition Patient Disposition: Home, Self-Care Condition: Other Follow up Plan Follow up with: Napoleon Webber MD [Physician, Pulmonology] - 08/16/25 2:40 pm Main Carrington MD [Primary Care Provider, Internal Medicine] - 08/18/25 10:45 am Prescriptions/Medication Reconciliation: New amoxicillin-pot clavulanate 875-125 mg tablet 1 tab PO Q12H 13 Days Qty: 26 0RF prednisone 20 mg tablet 40 mg PO DAILY 3 Days Qty: 6 0RF Continued trazodone 150 mg tablet 150 mg PO HS propranolol 20 mg tablet 20 mg PO BID ipratropium-albuterol 0.5 mg-3 mg(2.5 mg base)/3 mL solution for nebulization 3 ml INHALATION QIDP PRN (Reason: Shortness Of Breath Or Wheezing) 90 Days Qty: 180 3RF tamsulosin 0.4 mg capsule 0.4 mg PO DAILY Patient Comments: TAKE 1 CAPSULE BY MOUTH DAILY ferrous sulfate 325 mg (65 mg iron) tablet 325 mg PO DAILY Qty: 90 3RF Breztri Aerosphere 160-9-4.8 mcg/actuation HFA aerosol inhaler 2 inh inhalation BID 90 Days Qty: 10.7 3RF albuterol sulfate 90 mcg/actuation HFA aerosol inhaler 2 inh IH QID PRN (Reason: shortness of breath or wheezing) 90 Days Qty: 8.5 2RF calcium carbonate [Calcium 500] 500 mg calcium (1,250 mg) tablet,chewable 1,000 mg PO DAILY Qty: 10 0RF polyethylene glycol 3350 [HealthyLax] 17 gram powder in packet 17 g PO DAILYP PRN (Reason: Constipation) azelastine 137 mcg (0.1 %) spray,non-aerosol 1 spray intranasal Q6HP PRN (Reason: allergy symptoms) Rx Instructions: administer into each nostril aspirin 325 mg Tablet 325 mg PO DAILY Problem Reconciliation Problems Reviewed?: Yes Patient Discharge Instructions ACTIVITY: Continue current activity DIET: continue same diet Patient Instructions: High-Calorie, High-Protein Diet, DI for Lung Cancer, DI for Malnutrition - Older Adults, DI for Respiratory Failure, NCM High-Calorie High-Protein Diet, WM High Calorie High Protein Diet Recipes, Stop Light COPD, Stop Light Infection Print Language: Guinean Providers Primary Care Provider: Main Carrington Admit Provider: Nicolas Tomas Attending Provider: Nicolas Tomas
[2025-08-11] MEDS: SODIUM CHLORIDE 3% 15ML NEB 3 ML IH (14:10)
--- NOTE | 2025-08-12 09:39 | PC.NURSE ---
Gram stain results forwarded to hospitalist.
--- NOTE | 2025-08-14 10:10 | SW/DCPLANNER ---
Spoke with patient on the phone. Patient stated that he is doing about as good as expected. Patient stated that he is aware of his upcoming appointments. Patient stated that he was able to get his medicine picked up. Patient stated that he has no concerns or questions at this time. Colin Wells
== END 2025-08-11 14:58 | disposition home or self-care (01) ==
LOC: ER 12:16 → 2ND 17:05
PROVIDERS: Internal Medicine Pulmonary Disease; Nurse Practitioner; Admitting Provider Internal Medicine Adolescent Medicine; Emergency Provider Student in an Organized Health Care Education/Training Program; PCP Internal Medicine Adolescent Medicine; Visit Provider Internal Medicine Adolescent Medicine
DX: J96.21 Acute and chronic respiratory failure with hypoxia (principal); J96.22 Acute and chronic respiratory failure with hypercapnia; J44.1 Chronic obstructive pulmonary disease with (acute) exacerbation; C34.90 Malignant neoplasm of unspecified part of unspecified bronchus or lung; I10 Essential (primary) hypertension; R64 Cachexia; G47.30 Sleep apnea, unspecified; J98.4 Other disorders of lung; E43 Unspecified severe protein-calorie malnutrition; S22.32XA Fracture of one rib, left side, initial encounter for closed fracture; N40.0 Benign prostatic hyperplasia without lower urinary tract symptoms; J43.9 Emphysema, unspecified; R00.0 Tachycardia, unspecified; F17.210 Nicotine dependence, cigarettes, uncomplicated; Z99.81 Dependence on supplemental oxygen; Z91.048 Other nonmedicinal substance allergy status; Z68.1 Body mass index [BMI] 19.9 or less, adult; Z92.3 Personal history of irradiation; Z88.1 Allergy status to other antibiotic agents; Z88.0 Allergy status to penicillin; Z88.8 Allergy status to other drugs, medicaments and biological substances; Z88.5 Allergy status to narcotic agent; Z79.51 Long term (current) use of inhaled steroids; Z79.899 Other long term (current) drug therapy
CPT/HCPCS: 36415; 71275; 80053; 82803; 83690; 83735; 84484; 85025; 85651; 86140; 86606; 86612; 87070; 87205; 87449; 87636; 89220; 94640; 94667; 94760; 94761; 96365; 96366; 96367; 96375; 96376; 97163; 97165; 99285; G0378; J1100; J2919; J3475; J7050; Q9967

== ENCOUNTER 2025-09-12 09:24 | Outpatient (CLI) | payer MEDICARE, SELFPAY ==
--- OUTSIDE RECORDS SUMMARY | 2024-11-28 09:00 | XMS_ITS ---
Author Organization [facility] Address [address] [place] [address] Care Team Providers Care Habilitation Assistant Name Role Phone Main Carrington Primary Care Provider Main Carrington Unavailable Unavailable REASON FOR VISIT hospital stay Encounters Encounter Location Date Provider Diagnosis [facility] [address] [place] [address] 11/28/2024 Main Carrington Plan Of Treatment Next Appt Details Provider Name:Main Carrington, 10/09/2025 10:15:00 AM, [address], [address], [place], [address], Progress Notes * Alejandro MADERA SDOB:[birth year] (70 yo M)Acc No.[id number]:11/28/2024 Progress Notes Patient: Soo Alejandro OLIVAREZ Provider: Brit Carrington MD :1955 A ge:69 Y S ex:Male Date:11/28/2024 Address:[address] [place] [address], [place] Subjective: * Chief Complaints: * 1 . Hospital stay. * Medical History: Objective: * Vitals: Assessment: Plan: * Treatment: * * Electronic signature of Say Carrington MD FAAP on 09/12/2025 at 09:28 AM EST Sign off status: Pending * Provider: Brit Carrington MD Date: 0 11/28/2024 Generated for Phillip smith/Leigha/Henry on: 1 11/12/2024 09:28 AM EST
--- OUTSIDE RECORDS SUMMARY | 2025-02-11 16:30 | XMS_ITS ---
Author Organization [facility] PE D [facility] Address [address] [facility] [address] [place] [address] Care Team Providers Care Decorating Kiln Operator Name Role Phone Main Carrington Primary Care Provider Main Carrington Unavailable Unavailable Migration, Provider Unavailable Unavailable Allergies Allergen (clinical drug ingredient) Drug/Non Drug Allergy documented on EMR Reaction Allergy Type Onset Date Status Penicillin Unknown Drug Allergy Active REASON FOR VISIT Multum To [facility] Conversion Encounter Medications Medication SIG (Take, Route, [...] a nd pick correct strength-formulati on from [facility] options. If intended option is not shown, discontinue and re-order from Quick Search* Active Vitamin D (Ergocalciferol) 1.25 MG (84941 UT) 1 cap(s) orally once a week Active Ipratropium-Albutero l 0.5-2.5 (3) MG/3ML 3 mL by nebulizer 4 times a day Active Trelegy Ellipta 200 MCG-62.5 MCG-25 MCG/INH 1 PUFF(S) INHALED ONCE A DAY *Please review and pick correct strength-formulati on from [employer] options. If intended option is not shown, discontinue and re-order from Quick Search* Active Encounters Encounter Location Date Provider Diagnosis [facility] IM PED MENA 12[address] [facility] 36 [facility] [address] [place] [address] 02/11/2025 Provider Migration COPD, group D, by [...] Provider Name:Main Carrington, 10/09/2025 10:15:00 AM, [address] [facility] 36 [facility], [address], [place], [address], Progress Notes * Alejandro MADERA SDOB:[birth year] (70 yo M)Acc No.[id number]:02/11/2025 Patient: Soo Alejandro OLIVAREZ Provider: Michael pal Migration :1955 A ge:69 Y S ex:Male Date:02/11/2025 Address:[address] [place] [address] [id number] Pcp:Main Carrington Subjective: * Chief Complaints: * 1 . Multum To [facility] Conversion Encounter. * Medical History: * Medications: T aking Ferrous Sulfate 325 (65 Fe) MG Tablet 1 tab(s) orally once a day , Taking Calcium 500 MG 1 TAB TID , Notes to Pharmacist: *Please review and pick correct strength-formulation from [employer] options. If intended option is not shown, discontinue and re-order from Quick Search*, Taking Vitamin D (Ergocalciferol) 1.25 MG (78056 UT) Capsule 1 cap(s) orally once a week , Taking Ipratropium-Albuterol 0.5-2.5 (3) MG/3ML Solution 3 mL by nebulizer 4 times a day , Taking Trelegy Ellipta 200 MCG-62.5 MCG-25 MCG/INH POWDER 1 PUFF(S) INHALED ONCE A DAY , Notes to Pharmacist: *Please review and pick correct strength-formulation from [employer] options. If intended option is not shown, [...] Electronic signature of Prov ider Migration on 09/12/2025 at 09:28 AM EST Sign off status: Pending * Provider: Michael pal Migration Date: 0 02/11/2025 Generated for Phillip smith/Leigha/Codyitting on: 11/12/2024 09:28 AM EST
--- OUTSIDE RECORDS SUMMARY | 2025-08-01 04:45 | XMS_ITS ---
Author Organization [facility] D [facility] Address [address] [place] [address] Care Team Providers Care Roll Forming Machine Set Up Mechanic Name Role Phone Main Carrington Primary Care Provider Main Carrington Unavailable Unavailable Cathie Musa Unavailable [phone] Allergies Allergen (clinical drug ingredient) Drug/Non Drug [...] 08/01/2025 Encounters Encounter Location Date Provider Diagnosis [facility] [address] [place] [address] 08/01/2025 Cathie Musa Acute traumatic pain G89.11 [address], [place], [address], Progress Notes * Alejandro MADERA SDOB:[birth year] (70 yo M)Acc No.[id number]:08/01/2025 Progress Notes Patient: Alejandro LEUNG Provider: ROBERTO Umaña :1955 A ge:70 Y S ex:Male Date:08/01/2025 Address:[address] [place] [address], [place], [id number] Pcp:Main Carrington Subjective: * Chief Complaints: * [...] 08/01/2025 Generated for Phillip smith/Leigha/Codyitting on: 1 11/12/2024 09:28 AM EST History and Physical Notes * Examination [...]
--- OUTSIDE RECORDS SUMMARY | 2025-08-18 05:45 | XMS_ITS ---
Author Organization [facility] D [facility] Address [address] [facility] [address] [place] [address] Care Team Providers Care District Sales Coordinator Name Role Phone Main Carrington Primary Care Provider Main Carringotn Unavailable Unavailable Allergies Allergen (clinical drug ingredient) Drug/Non Drug Allergy documented on EMR Reaction Allergy Type Onset Date Status Penicillin Unknown Drug Allergy Active REASON FOR VISIT Discharged from [facility] on 08/11/2025 Medications Medication SIG (Take, Route, [...] Acute exacerbation of chronic obstructive airways disease (090474256) COPD with exacerbation (J44.1) Active confirmed Vital Signs Temperature 97.7 degrees Fahrenheit 08/18/20 25 Blood pressure systolic 126 mm Hg 08/18/20 25 Blood pressure diastolic 84 mm Hg 025 Heart Rate 80 /min 08/18/2025 Height 5 ft 10 in in 08/18/2025 Weight 114 lbs 08/18/2025 BMI 16.36 kg/m2 08/18/2025 Oximetry 99 08/18/2025 Encounters Encounter Location Date Provider Diagnosis [facility] [address] [place] [address] 08/18/2025 Main Brendason Lobar pneumonia J18. 1 [...] prn,1 Week, Reaso n: Provider Name:Main Carrington, 10/09/2025 10:15:00 AM, [address] [place] [facility] [address] [facility], [address], [place], [address], Progress Notes * Alejandro MADERA SDOB:[birth year] (70 yo M)Acc No.[id number]:08/18/2025 HOSP F/U Patient: Soo OLIVAREZ Alejandro S Provider: Brit Carrington MD :1955 A ge:70 Y S ex:Male Date:08/18/2025 Address:[address] [place] [address], [place], [id number] Subjective: * Chief Complaints: * 1 . Discharged from [facility] on 08/11/2025. * HPI: I ntrim History: [...] MH- COPD EXACERBATION 06/10/24-06/12/24, [facility]- COPD , [facility]- COPD 09/2024, [facility]-COPD 11/2024, [facility]-COPD 08/2025. * Family History: F ather: . [...] 1.40 , G0008 ADMINISTRATION-FLU VACCINE MEDICARE ONLY, [address] [facility] MGMT 7 DAY DISCH, Modifiers: 25 , 1111F DSC MED/CURENT MED MERGE * Follow Up: p rn,1 Week * * Sign off status: Completed true * Provider: Brit Carrington MD Date: Generated for Phillip smith/Leigha/eTmindismitting on: 11/12/2024 09:28 AM EST History and Physical Notes * HPI [...]
--- OUTSIDE RECORDS SUMMARY | 2025-08-21 06:30 | XMS_ITS ---
Author Organization [facility] Address [address] [facility] [address] [place] [address] Care Team Providers Care Brazer Production Line Name Role Phone Main Carrington Primary Care Provider Main Carrington Unavailable Unavailable REASON FOR VISIT 3 Month F/U Encounters Encounter Location Date Provider Diagnosis [facility] [address] [place] [address] 08/21/2025 Main Carrington Plan Of Treatment Next Appt Details Provider Name:Main Carrington, 10/09/2025 10:15:00 AM, [address] [facility], [address], [place], [address], Progress Notes * Alejandro MADERA SDOB:[birth year] (70 yo M)Acc No.[id number]:08/21/2025 Progress Notes Patient: Alejandro LEUNG Provider: Brit Carrington MD :1955 A ge:70 Y S ex:Male Date:08/21/2025 Address:[address] [place], [place] [address], [place] Subjective: * Chief Complaints: * 1 . 3 Month F/U. * Medical History: Objective: * Vitals: Assessment: Plan: * Treatment: * * Electronic signature of Step jad Carrington MD FAAP on 09/12/2025 at 09:29 AM EST Sign off status: Pending * Provider: Brit Carrington MD Date: Generated for Phillip smith/Leigha/Henry on: 11/12/2024 09:29 AM EST
--- OUTSIDE RECORDS SUMMARY | 2025-08-28 05:15 | XMS_ITS ---
Author Organization [facility] Address [address] [facility] [address] [place] [address] Care Team Providers Care Study Lead Name Role Phone Main Carrington Primary Care Provider [phone] Main Carrington Unavailable Unavailable Allergies Allergen (clinical [...] 08/28/2025 Encounters Encounter Location Date Provider Diagnosis [facility] [address] [place] [address] 08/28/2025 Main Carrington COPD, group D, by [address], [place], [address], Progress Notes * Alejandro MADERA SDOB:[birth year] (70 yo M)Acc No.[id number]:08/28/2025 Progress Notes Patient: Alejandro LEUNG Provider: Brit Carrington MD :1955 A ge:70 Y S ex:Male Date:08/28/2025 Address:[address] [place] [address] [place], [place], [id number] Subjective: * Chief Complaints: * 1 . [...] 06/10/24-06/12/24, [facility]- COPD , [facility]- COPD 09/2024, H-COPD 11/2024, [facility]-COPD 08/2025. * Family History: F ather: . M other: . P aternal Grand Father: . P aternal Grand Mother: . M aternal Grand Father: . M aternal Grand Mother: . Paternal uncle: unknown. P aternal aunt: unknown. M aternal uncle: . M aternal aunt: . S ibziggy: alive, multiple sclerosis, diagnosed with Diabetes. C hilen: alive, diagnosed with Diabetes, Heart Disease. 5 [...] US: no. Occupation: Retired. * Medications: T megg Beverlyztri Aerosphere 160-9-4.8 [...] Provider: Brit Carrington MD Date: Generated for Loomio luis/Leigha/eTransmitting on: 11/12/2024 09:29 AM EST History and Physical Notes * [...]
--- NOTE | 2025-09-12 09:27 | XR_ITS ---
FINAL REPORT CLINICAL HISTORY: SOB port in chest x 2 years ago COMPARISON: 08/03/2025 FINDINGS: 2 views of the chest were obtained . Right chest port is unchanged. The heart is normal in size. The mediastinum is within normal limits. There is a spiculated density along the right lung apex which may be slightly smaller than on prior exam. There is evidence of prior granulomatous disease. Emphysematous changes are noted. There is no pneumothorax. Osseous structures are unremarkable. IMPRESSION: No acute cardiopulmonary process. Extensive chronic findings as above. Reviewed, Interpreted and Dictated by Kristen Sparrow MD Transcribed by Belen Lu Authenticated and [facility]
--- OUTSIDE RECORDS SUMMARY | 2025-09-12 09:30 | XMS_ITS | Patient Health Record ---
Author Organization [facility] Address [address] [place] [address] Care Team Providers Care Vp Ad Products And Planning Name Role Phone Main Carrington Primary Care Provider [phone] Main Carrington Unavailable Unavailable Cathie Musa Unavailable [phone] Cathie Chang Unavailable [phone] Migration, Provider Unavailable Unavailable Allergies Allergen (clinical drug ingredient) Drug/Non Drug Allergy documented on EMR Reaction Allergy Type Onset Date Status Penicillin Unknown Drug Allergy Active Results Component Value Reference Range Notes X ray : Chest Reviewed date:08/04/2025 01:16:50 PM Interpretation: Performing Lab: Notes/Report: X ray : Rib Series, Left Reviewed date:08/07/2025 03:36:10 PM Interpretation: Performing Lab: Notes/Report: CBC (INCLUDES DIFF/PLT) (639 9) Reviewed date:02/22/2025 10:41:39 AM Interpretation: Performing Lab:[facility], [facility] [address], [place] SozpBT[address] [place] Notes/Report: NON-FASTING; NON-FASTING; NON-FASTING; NON-FASTING; [...] MPV 10.0 7.5-12.5 fL ABSOLUTE NEUTROPHILS 3640 9290-1333 cells/uL ABSOLUTE LYMPHOCYTES 6712 558-1030 cells/uL ABSOLUTE MONOCYTES 549 200-950 cells/uL ABSOLUTE EOSINOPHILS 291 15-500 cells/uL ABSOLUTE BASOPHILS 28 0-200 cells/uL NEUTROPHILS 65 LYMPHOCYTES 19.5 MONOCYTES 9.8 EOSINOPHILS 5.2 BASOPHILS 0.5 COMPREHENSIVE METABOLIC PANE L (85632) Reviewed date:02/22/2025 10:41:38 AM Interpretation: Performing Lab:[place], [facility], [facility] HospitalGwvxKY[address] [place] Notes/Report: NON-FASTING; NON-FASTING; NON-FASTING; NON-FASTING; [...] 17 10-35 U/L ALT 7 9-46 U/L BASIC METABOLIC PANEL (63193 ) Reviewed date:12/21/2024 02:53:46 PM Interpretation: Performing Lab:[place] [address] [employer], Tip NetworkEypaLF[address] [place] Notes/Report: NON-FASTING GLUCOSE 86 65-99 [...] 37 20-32 mmol/L CALCIUM 7.8 8.6-10.3 mg/dL PTH, INTACT WITHOUT CALCIUM (36550) Reviewed date:10/12/2024 08:42:36 AM Interpretation: Performing Lab:[place] [address] [employer], Tip NetworkOrclPU[address] [place] Notes/Report: NON-FASTING PARATHYROID HORMONE, INTACT <6 16-77 pg/mL Interpretive Guide Intact PTH Calcium ------- Normal Parathyroid Normal Normal Hypoparathyroidism Low or Low Normal Low Hyperparathyroidism Primary Normal or High High Secondary High Normal or Low Tertiary High High Non-Parathyroid Hypercalcemia Low or Low Normal High VITAMIN D,25-OH,TOTAL,IA (17 306) Reviewed date:10/12/2024 08:42:36 AM Interpretation: Performing Lab:[place] [address] [employer], EmberWtaoZT[address] [place] Notes/Report: NON-FASTING; NON-FASTING VITAMIN D,25-OH,TOTAL,IA 43 30-100 ng/mL Vitamin D Status 25-OH Vitamin D: Deficiency: <20 ng/mL Insufficiency: 20 - 29 ng/mL Optimal: > or = 30 ng/mL For 25-OH Vitamin D testing on patients on D2-supplementation and patients for whom quantitation of D2 and D3 fractions is required, the [facility](TM) 25-OH VIT D, (D2,D3), LC/MS/MS is recommended: order code 61350 (patients >2yrs). See Note 1 Note 1 For additional information, please refer to http://DEQ.Webcrumbz/faq/RVQ190 (This link is being provided for informational/ educational purposes only.) BASIC METABOLIC PANEL (10879 ) Reviewed date:10/12/2024 08:42:36 AM Interpretation: Performing Lab:[place], [facility] Lmyk2222 n2v [employer], Tip NetworkBjgoZC[address] [place] Notes/Report: NON-FASTING; NON-FASTING GLUCOSE 80 [...] Reviewed date:02/22/2025 10:41:39 AM Interpretation: Performing Lab:[place] [facility] Mlym5556 n2v [employer], Tip NetworkVdmhNB[address] [place] Notes/Report: NON-FASTING; NON-FASTING; NON-FASTING; NON-FASTING; [...] D, (D2,D3), LC/MS/MS is recommended: order code 24803 (patients >2yrs). See Note 1 Note 1 For additional information, please refer to http://education.Webcrumbz/faq/PNA998 (This link is being provided for informational/ educational purposes only.) VITAMIN B12/FOLATE, SERUM PA HUGH (7065) Reviewed date:02/22/2025 10:41:39 AM Interpretation: Performing Lab:[place], [facility] Xypt5058 [facility], [facility] HospitalXkgkUT[address] [place] Notes/Report: NON-FASTING; NON-FASTING; NON-FASTING; NON-FASTING; NON-FAST VITAMIN B12 272 105-2563 pg/mL FOLATE, SERUM >24.0 Reference Range Low: <3.4 Borderline: 3.4-5.4 Normal: >5.4 THYROID PANEL WITH TSH (7444 ) Reviewed date:02/22/2025 10:41:38 AM Interpretation: Performing Lab:[facility], [facility] HospitalGuamKE[address] [place] Notes/Report: NON-FASTING; NON-FASTING; NON-FASTING; NON-FASTING; [...] day (at bedtime); Duration: 90 days Active Immunizations Vaccine Route Administration Date Status Comme nts Fluzone High Dose IM Intramuscular 08/12/2023 Administered Fluzone High Dose IM Intramuscular 07/18/2024 Administered Fluzone High Dose IM Intramuscular 08/18/2025 Administered Prevnar PCV-20 (Pneumococcal conjugate 20) IM [...] Risk Notes Problem Malignant tumor of lung (404858133) Malignant neoplasm of unspecified part of unspecified bronchus or lung (C34.90) Active confirmed Problem Hypocalcemia (2757654) Hypocalcemia (E83.51) Active confirmed Problem Primary insomnia (7678079) Primary insomnia (F51.01) Active confirmed Problem Essential tremor (046398052) Essential tremor (G25.0) Active confirmed Problem Essential hypertension (45387364) Essential (primary) hypertension (I10) Active confirmed Problem Vasomotor rhinitis (1901740) Vasomotor rhinitis (J30.0) Active confirmed Problem Acute on chronic hypoxemic and hypercapnic respiratory failure (disorder) (49686322361252) Acute and chronic respiratory failure with hypercapnia (J96.22) Active confirmed Problem Osteoarthritis (615811306) Unspecified osteoarthritis, unspecified site (M19.90) Active confirmed Problem Nicotine dependence (45768860) Personal history of nicotine dependence (Z87.891) Active confirmed Problem Acute exacerbation of chronic obstructive airways disease (491922997) COPD with exacerbation (J44.1) Active confirmed Problem 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) (5237897266612441 7) 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) Active confirmed Problem Restless legs syndrome (02726657) Restless leg syndrome (G25.81) Active confirmed Problem Idiopathic peripheral neuropathy (34743681) Idiopathic peripheral neuropathy (G60.9) Active confirmed Problem 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) Active confirmed Problem Cigarette smoker (89267795) Cigarette smoker (F17.210) Active confirmed Problem Tobacco dependence (82265243) Tobacco dependence (F17.200) Active confirmed Problem Oropharyngeal dysphagia (59168720) Oropharyngeal dysphagia (R13.12) Active confirmed Problem Dependence on supplemental oxygen (407142986214) Oxygen dependent (Z99.81) Active confirmed Problem Irritable bowel syndrome characterized by constipation (606424620) Irritable bowel syndrome with constipation (K58.1) Active confirmed Problem Lower urinary tract symptoms due to benign prostatic hypertrophy (41216241945534) Benign prostatic hyperplasia with lower urinary tract symptoms (N40.1) Active confirmed Problem Chronic obstructive pulmonary disease (49480080) COPD, group D, by GOLD 2017 classification (J44.9) Active confirmed Vital Signs Heart Rate 74 /min 08/28/2025 Temperature 97.5 degrees Fahrenheit 08/28/2025 Oximetry 99 08/18/2025 Blood pressure diastolic 86 mm Hg 08/28/2025 Height 5 ft 10 in in 08/28/2025 Blood pressure systolic 110 mm Hg 08/28/2025 Weight 116 lbs 08/28/2025 BMI 16.64 kg/m2 08/28/2025 Encounters Encounter Location Date Provider Diagnosis [facility] [address] [facility] [address] [place], [place] [address] 02/11/2025 Provider Migration COPD, group D, by GOLD 2017 classification J44.9 [facility] [address] [place] [address] 09/14/2024 Main Carrington Acute and chronic respiratory failure with hypercapnia J96.22 ; COPD with acute exacerbation J44.1 ; Malignant neoplasm of unspecified part of unspecified bronchus or lung C34.90 and Essential (primary) hypertension I10 [facility] [address] [place] [address] 09/26/2024 Main Besson COPD, group D, by GO LD 2017 classification J44.9 ; Acute and chronic respiratory failure with hypercapnia J96.22 ; Malignant neoplasm of unspecified part of unspecified bronchus or lung C34.90 and Hospital discharge follow-up Z09 [facility] [address] [place] [address] 10/10/2024 Main Besson Hypocalcemia E83.51 and Hospital discharge follow-up Z09 [facility] [address] [place] [address] 10/17/2024 Main Besson Hypocalcemia E83.51 [facility] [address] [place] [address] 11/08/2024 Cathie Charlene COPD exacerbation J44.1 [facility] [address] [place] [address] 11/21/2024 Main Besson COPD, group D, by GO LD 2017 classification J44.9 ; Acute and chronic respiratory failure with hypercapnia J96.22 and Hospital discharge follow-up Z09 [facility] [address] [place] [address] 12/19/2024 Main Besson Hypocalcemia E83.51 and COPD, group D, by GOLD 2017 classification J44.9 [facility] [address] [place] [address] 02/20/2025 Main Besson Idiopathic periphera l neuropathy G60.9 ; COPD, group D, by GOLD 2017 classification J44.9 and Malignant neoplasm of unspecified part of unspecified bronchus or lung C34.90 [facility] [address] [place] [address] 05/01/2025 Main Besson COPD, group D, by GO LD 2017 classification J44.9 ; Acute and chronic respiratory failure with hypercapnia J96.22 ; Malignant neoplasm of unspecified part of unspecified bronchus or lung C34.90 ; Essential (primary) hypertension I10 ; Chronic constipation K59.09 ; Benign prostatic hyperplasia with lower urinary tract symptoms N40.1 ; Nocturia R35.1 and Routine medical exam Z00.00 [facility] [address] [place], [place] [address] 06/05/2025 Main Zeb Irritable bowel syndrome with constipation K58.1 [facility] [address] [place], [place] [address] 08/01/2025 Cathie Musa Acute traumatic pain G89.11 ; Left-sided chest wall pain R07.89 and Oxygen dependent Z99.81 [facility] [address] [place], [place] [address] 08/18/2025 Main Brendaleonard Lobar pneumonia J18. 1 ; COPD with exacerbation J44.1 ; Hospital discharge follow-up Z09 and Immunization(s) administered Z23 [facility] [address] [place], [place] [address] 08/28/2025 Main Carrington COPD, group D, by GO LD 2017 classification J44.9 and Malignant neoplasm of unspecified part of unspecified bronchus or lung C34.90 [facility] [address] [place], [place] [address] 10/03/2024 Main Carrington COPD, group D, by GO LD 2017 classification J44.9 and Acute and chronic respiratory failure with hypercapnia J96.22 [facility] [address] [place], [place] [address] 11/14/2024 Main Besleonard [facility] [address] [facility] [place] [address] 04/11/2025 Main Carrington Essential tremor G25 .0 [facility] [address] [place], [place] [address] 05/09/2025 Main Carrington Chronic constipation K59.09 [facility] [address] [place] [address] [address] [place] [address] 07/12/2025 Main Brendaleonard [facility] [address] [place] [address] 08/01/2025 [facility] [address] [place] [address] 08/03/2025 [facility] [address] [facility] [address] [place], [place] [address] 08/11/2025 Main Carrington Assessments Encounter Date Diagnosis (ICD Code) Assessment Notes Treatment Notes Treatment Clinical Notes Section Notes 09/14/2024 Acute and chronic respiratory failure with [...] and splinting during cough or deep breathing 08/18/2025 COPD with exacerbation (ICD-10 - J44.1) Done with prednisone, pulmonary did not recommend continuing. Emphasized need for continuing compliance with oxygen and nebs. Unfortunately continues to smoke 08/18/2025 Lobar pneumonia (ICD-10 - J18.1) Appears stable/improving. Continue current antibiotic therapy, follow-up with pulmonary. I will see him on August 28 for follow-up. 08/28/2025 Malignant neoplasm of unspecified part of unspecified bronchus or lung (ICD-10 - C34.90) Follows with pulmonary. Check chest x-ray. 08/28/2025 COPD, group D, by GOLD 2017 classification (ICD-10 - J44.9) At baseline, on oxygen, still smoking. No changes in plan. Follow-up after pulmonary visit 08/18/2025 Hospital discharge follow-up (ICD-10 - Z09) Personally reviewed H&P and discharge summary as available from hospital discharge documentation. Reviewed pertinent labs and test done in the hospital. Personally reconciled medication. 08/01/2025 Oxygen dependent (ICD-10 - Z99.81) 05/01/2025 [...] setting of COPD exacerbation and suspect pneumonia 09/14/2024 Essential (primary) hypertension (ICD-10 - I10) [...] personally reconciled meds. Continue routine follow-up on October08/18/2025 Immunization(s) administered (ICD-10 - Z23) 05/01/2025 Chronic constipation (ICD-10 - K59.09) Encouraged [...] M-Magnesium 10/03/2024 Next Appt Details Provider Name:Main Matsonumer [place], 10/09/2025 10:15:00 AM, [address], [place], [address], Insurance Providers Payer Name Payer Address Payer Phone Subscriber Number Group Number Insured Name Patient Relationship to Insured Coverage Start Date Coverage End Date [employer] [address] [place] [address] [id number] Alejandro Wang Self - patient is the insured Medications Administered Medication Instructions Date of Administration Dosage Notes Dexamethasone 4mg Injection 05/31/2024 4 mg Dexamethasone 4mg Injection 08/24/2024 4 mg Medical (General) History Medical History History ICD Code RLS HTN COPD Lung/ Liver cancer Partially Collapsed right lung 3L oxygen Surgical History Surgery Date(Month/Year) port installed 12/2022 Hospitalization History Reason Date(Month/Year) [facility] 08/2025 [facility] 11/2024 [facility] COPD 09/2024 [facility] COPD EXACERBATION 06/10/24-06/12/24
== END 2025-09-12 23:59 | disposition home or self-care (01) ==
LOC: RAD 09:25
PROVIDERS: PCP Internal Medicine Adolescent Medicine; Visit Provider Internal Medicine Pulmonary Disease
DX: J43.9 Emphysema, unspecified (principal); J84.10 Pulmonary fibrosis, unspecified; Z95.828 Presence of other vascular implants and grafts
CPT/HCPCS: 71046

== ENCOUNTER 2025-09-17 21:28 | Observation (INO) | payer MEDICARE, SELFPAY ==
--- OUTSIDE RECORDS SUMMARY | 2024-11-28 09:00 | XMS_ITS ---
Author Organization [facility] Address [address] [place] [address] Care Team Providers Care Welding Process Engineer Name Role Phone Main Carrington Primary Care Provider Main Carrington Unavailable Unavailable REASON FOR VISIT hospital stay Encounters Encounter Location Date Provider Diagnosis [facility] [address] [place] [address] 11/28/2024 Main Carrington Plan Of Treatment Next Appt Details Provider Name:Main Carrington, 10/09/2025 10:15:00 AM, [address], [address], [place], [address], Progress Notes * Alejandro MADERA SDOB:[birth year] (70 yo M)Acc No.[id number]:11/28/2024 Progress Notes Patient: Soo Alejandro OLIVAREZ Provider: Brit Carrington MD :1955 A ge:69 Y S ex:Male Date:11/28/2024 Address:[address] [place] [address], [id number] Subjective: * Chief Complaints: * 1 . Hospital stay. * Medical History: Objective: * Vitals: Assessment: Plan: * Treatment: * * Electronic signature of Say Carrington MD FAAP on 09/17/2025 at 09:39 PM EST Sign off status: Pending * Provider: Brit Carrington MD Date: 0 11/28/2024 Generated for Phillip smith/Leigha/Henry on: 1 11/17/2024 09:39 PM EST
--- OUTSIDE RECORDS SUMMARY | 2025-02-11 16:30 | XMS_ITS ---
Author Organization [facility] PE D [facility] Address [address] [facility] [address] [place] [address] Care Team Providers Care Registrar [employer] Name Role Phone Main Carrington Primary Care Provider [phone] Main Carrington Unavailable Unavailable Migration, Provider Unavailable Unavailable Allergies Allergen (clinical drug ingredient) Drug/Non Drug Allergy documented on EMR Reaction Allergy Type Onset Date Status Penicillin Unknown Drug Allergy Active REASON FOR VISIT Multum To [facility] Conversion Encounter Medications Medication SIG (Take, [...] a nd pick correct strength-formulati [facility]. If intended option is not shown, discontinue and re-order from Quick Search* Active Vitamin D (Ergocalciferol) 1.25 MG (57693 UT) 1 cap(s) orally once a week Active Ipratropium-Albutero l 0.5-2.5 (3) MG/3ML 3 mL by nebulizer 4 times a day Active Trelegy Ellipta 200 MCG-62.5 MCG-25 MCG/INH 1 PUFF(S) INHALED ONCE A DAY *Please review and pick correct strength-formulati on from [employer] options. If intended option is not shown, discontinue and re-order from Quick Search* Active Encounters Encounter Location Date Provider Diagnosis [facility] IM PED MENA [address] [facility] 36 [facility] [address] [place] [address] 02/11/2025 Provider Migration COPD, group D, by [...] days Next Appt Details Provider Name:Main Carrington, 10/09/2025 10:15:00 AM, [facility] [facility], [address], [place], [address], Progress Notes * Alejandro MADERA SDOB:[birth year] (70 yo M)Acc No.[id number]:02/11/2025 Patient: Soo Alejandro OLIVAREZ Provider: Michael pal Migration :1955 A ge:69 Y S ex:Male Date:02/11/2025 Address:[address] [place] [address] [id number] Pcp:Main Carrington Subjective: * Chief Complaints: * 1 . Multum To [facility] Conversion Encounter. * Medical History: * Medications: T aking Ferrous Sulfate 325 (65 Fe) MG Tablet 1 tab(s) orally once a day , Taking Calcium 500 MG 1 TAB TID , Notes to Pharmacist: *Please review and pick correct strength-formulation from [employer] options. If intended option is not shown, discontinue and re-order from Quick Search*, Taking Vitamin D (Ergocalciferol) 1.25 MG (60793 UT) Capsule 1 cap(s) orally once a week , Taking Ipratropium-Albuterol 0.5-2.5 (3) MG/3ML Solution 3 mL by nebulizer 4 times a day , Taking Trelegy Ellipta 200 MCG-62.5 MCG-25 MCG/INH POWDER 1 PUFF(S) INHALED ONCE A DAY , Notes to Pharmacist: *Please review and pick correct strength-formulation from [employer] options. If intended option is not shown, [...] Electronic signature of Prov ider Migration on 09/17/2025 at 09:39 PM EST Sign off status: Pending * Provider: Michael pal Migration Date: 0 02/11/2025 Generated for Phillip smith/Leigha/Codyitting on: 11/17/2024 09:39 PM EST
--- OUTSIDE RECORDS SUMMARY | 2025-08-01 04:45 | XMS_ITS ---
Author Organization [facility] Address [address] [place] [address] Care Team Providers Care Type Casting Machine Operator Name Role Phone Main Carrington Primary Care Provider Main Carrington Unavailable Unavailable Cathie Musa Unavailable [phone] Allergies Allergen (clinical drug ingredient) Drug/Non Drug [...] 08/01/2025 Encounters Encounter Location Date Provider Diagnosis [facility] [address] [place] [address] 08/01/2025 Cathie Musa Acute traumatic pain G89.11 [...] Follow Up: prn, Reason: Provider Name:Main Carrington, 10/09/2025 10:15:00 AM, [address], [address], [place], [address], Progress Notes * Alejandro MADERA SDOB:[birth year] (70 yo M)Acc No.[id number]:08/01/2025 Progress Notes Patient: Alejandro LEUNG Provider: ROBERTO Umaña :1955 A ge:70 Y S ex:Male Date:08/01/2025 Address:[address] [place] [address], [place], [id number] Pcp:Main Carrington Subjective: * Chief Complaints: * [...] right lung, 3L oxygen. * Medications: T megg Sheila Aerosphere 160-9-4.8 MCG/ACT Aerosol 2 puffs Inhalation [...] Umaña Date: 0 08/01/2025 Generated for Phillip smith/Leigha/Codyitting on: 1 11/17/2024 09:39 PM EST History and Physical Notes * [...]
--- OUTSIDE RECORDS SUMMARY | 2025-08-18 05:45 | XMS_ITS ---
Author Organization [facility] D [facility] Address [address] [facility] [address] [place] [address] Care Team Providers Care Assembler Semiconductor Name Role Phone Main Carrington Primary Care Provider [phone] Main Carrington Unavailable Unavailable Allergies Allergen (clinical drug ingredient) Drug/Non Drug Allergy documented on EMR Reaction Allergy Type Onset Date Status Penicillin Unknown Drug Allergy Active REASON FOR VISIT Discharged from [facility] on 08/11/2025 Medications Medication SIG [...] Acute exacerbation of chronic obstructive airways disease (790617065) COPD with exacerbation (J44.1) Active confirmed Vital Signs Temperature 97.7 degrees Fahrenheit 08/18/20 25 Blood pressure systolic 126 mm Hg 08/18/20 25 Blood pressure diastolic 84 mm Hg 025 Heart Rate 80 /min 08/18/2025 Height 5 ft 10 in in 08/18/2025 Weight 114 lbs 08/18/2025 BMI 16.36 kg/m2 08/18/2025 Oximetry 99 08/18/2025 Encounters Encounter Location Date Provider Diagnosis [facility] [address] [place] [address] 08/18/2025 Main Brendason Lobar pneumonia J18. 1 [...] Name:Main Carrington, 10/09/2025 10:15:00 AM, [address] [place] [facility] [address] [facility], [address], [place], [address], Progress Notes * Alejandro MADERA SDOB:[birth year] (70 yo M)Acc No.[id number]:08/18/2025 HOSP F/U Patient: Soo OLIVAREZ Alejandro S Provider: Brit Carrington MD :1955 A ge:70 Y S ex:Male Date:08/18/2025 Address:[address] [place] [address], [place], [id number] Subjective: * Chief Complaints: * 1 . Discharged from [facility] on 08/11/2025. * HPI: I [...] 1.40 , G0008 ADMINISTRATION-FLU VACCINE MEDICARE ONLY, [address] [facility] MGMT 7 DAY DISCH, Modifiers: 25 , 1111F DSC MED/CURENT MED MERGE * Follow Up: p rn,1 Week * * Sign off status: Completed true * Provider: Brit Carrington MD Date: Generated for Phillip smith/Leigha/Caspersmitting on: 11/17/2024 09:39 PM EST History and Physical [...]
--- OUTSIDE RECORDS SUMMARY | 2025-08-21 06:30 | XMS_ITS ---
Author Organization [facility] Address [address] [facility] [address] [place] [address] Care Team Providers Care Concrete Mixer Operator Helper Name Role Phone Main Carrington Primary Care Provider Main Carrington Unavailable Unavailable REASON FOR VISIT 3 Month F/U Encounters Encounter Location Date Provider Diagnosis [facility] [address] [place] [address] 08/21/2025 Main Carrington Plan Of Treatment Next Appt Details Provider Name:Main Carrington, 10/09/2025 10:15:00 AM, [address] [facility], [address], [place], [address], Progress Notes * Alejandro MADERA SDOB:[birth year] (70 yo M)Acc No.[id number]:08/21/2025 Progress Notes Patient: Alejandro LEUNG Provider: Brit Carrington MD :1955 A ge:70 Y S ex:Male Date:08/21/2025 Address:[address] [place], [place] [address], [place] Subjective: * Chief Complaints: * 1 . 3 Month F/U. * Medical History: Objective: * Vitals: Assessment: Plan: * Treatment: * * Electronic signature of Step jad Carrington MD FAAP on 09/17/2025 at 09:39 PM EST Sign off status: Pending * Provider: Brit Carrington MD Date: Generated for Phillip smith/Leigha/Henry on: 11/17/2024 09:39 PM EST
--- OUTSIDE RECORDS SUMMARY | 2025-08-28 05:15 | XMS_ITS ---
Author Organization [facility] Address [address] [facility] [address] [place] [address] Care Team Providers Care Motion Picture Commentator Name Role Phone Main Carrington Primary Care [...] 08/28/2025 Encounters Encounter Location Date Provider Diagnosis [facility] [address] [place] [address] 08/28/2025 Main Carrington COPD, group D, by [address], [place], [address], Progress Notes * Alejandro MADERA SDOB:[birth year] (70 yo M)Acc No.[id number]:08/28/2025 Progress Notes Patient: Alejandro LEUNG Provider: Brit Carrington MD :1955 A ge:70 Y S ex:Male Date:08/28/2025 Address:[address] [place] [address] [place], [place], [place] Subjective: * Chief Complaints: * 1 . [...] Provider: Brit Carrington MD Date: Generated for Authy luis/Leigha/eTransmitting on: 11/17/2024 09:39 PM EST History and [...]
--- OUTSIDE RECORDS SUMMARY | 2025-09-17 21:40 | XMS_ITS | Patient Health Record ---
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 Name Role Phone Main Carrington Primary Care Provider Main Carrington Unavailable Unavailable Cathie Musa Unavailable [phone] Cathie Chang Unavailable [phone] Migration, Provider Unavailable Unavailable Allergies Allergen (clinical drug ingredient) Drug/Non Drug Allergy documented on EMR Reaction Allergy Type Onset Date Status Penicillin Unknown Drug Allergy Active Results Component Value Reference Range Notes BASIC METABOLIC PANEL (50881 ) Reviewed date:10/12/2024 08:42:36 AM Interpretation: Performing Lab:CB, [facility] [id number] [facility], [facility] CenterLyfpGV[address] [place] Notes/Report: NON-FASTING; NON-FASTING GLUCOSE 80 [...] Reviewed date:10/12/2024 08:42:36 AM Interpretation: Performing Lab:MAR[facility] [employer] [place] [employer] [id number], FibroGenGuniZH[address] [place] Notes/Report: NON-FASTING; NON-FASTING VITAMIN D,25-OH,TOTAL,IA 43 30-100 ng/mL Vitamin D Status 25-OH Vitamin D: Deficiency: <20 ng/mL Insufficiency: 20 - 29 ng/mL Optimal: > or = 30 ng/mL For 25-OH Vitamin D testing on patients on D2-supplementation and patients for whom quantitation of D2 and D3 fractions is required, the QuestAssureD(TM) 25-OH VIT D, (D2,D3), LC/MS/MS is recommended: order code 37925 (patients >2yrs). See Note 1 Note 1 For additional information, please refer to http://education.Quat-E/faq/RRP427 (This link is being provided for informational/ educational purposes only.) PTH, INTACT WITHOUT CALCIUM (67571) Reviewed date:10/12/2024 08:42:36 AM Interpretation: Performing Lab:MAR[facility] [employer] [place] [employer] [id number], BMdrLbljAT[address] [place] Notes/Report: NON-FASTING PARATHYROID HORMONE, INTACT <6 16-77 pg/mL Interpretive Guide Intact PTH Calcium ------- Normal Parathyroid Normal Normal Hypoparathyroidism Low or Low Normal Low Hyperparathyroidism Primary Normal or High High Secondary High Normal or Low Tertiary High High Non-Parathyroid Hypercalcemia Low or Low Normal High X ray : Chest Reviewed date:08/04/2025 01:16:50 PM Interpretation: Performing Lab: Notes/Report: X ray : Rib Series, Left Reviewed date:08/07/2025 03:36:10 PM Interpretation: Performing Lab: Notes/Report: COMPREHENSIVE METABOLIC PANE L (12975) Reviewed date:02/22/2025 10:41:38 AM Interpretation: Performing Lab:MAR[facility] [employer], BMdrMjxfJH[address] [place] Notes/Report: NON-FASTING; NON-FASTING; NON-FASTING; NON-FASTING; [...] 17 10-35 U/L ALT 7 9-46 U/L CBC (INCLUDES DIFF/PLT) (639 9) Reviewed date:02/22/2025 10:41:39 AM Interpretation: Performing Lab:CB, [facility], [facility] CenterKgziEL[address] [place] Notes/Report: NON-FASTING; NON-FASTING; NON-FASTING; NON-FASTING; [...] MPV 10.0 7.5-12.5 fL ABSOLUTE NEUTROPHILS 3640 9129-1841 cells/uL ABSOLUTE LYMPHOCYTES 0341 867-8453 cells/uL ABSOLUTE MONOCYTES 549 200-950 cells/uL ABSOLUTE EOSINOPHILS 291 15-500 cells/uL ABSOLUTE BASOPHILS 28 0-200 cells/uL NEUTROPHILS 65 LYMPHOCYTES 19.5 MONOCYTES 9.8 EOSINOPHILS 5.2 BASOPHILS 0.5 VITAMIN B12/FOLATE, SERUM PA HUGH (7065) Reviewed date:02/22/2025 10:41:39 AM Interpretation: Performing Lab:MARIOLA, [employer], [facility] HospitalGwdgNP[address] [place] Notes/Report: NON-FASTING; NON-FASTING; NON-FASTING; NON-FASTING; NON-FAST VITAMIN B12 325 060-3171 pg/mL FOLATE, SERUM >24.0 Reference Range Low: <3.4 Borderline: 3.4-5.4 Normal: >5.4 VITAMIN D,25-OH,TOTAL,IA (17 306) Reviewed date:02/22/2025 10:41:39 AM Interpretation: Performing Lab:MARIOLA DC[id number], [place] MbawCF[address] [place] Notes/Report: NON-FASTING; NON-FASTING; NON-FASTING; NON-FASTING; [...] D, (D2,D3), LC/MS/MS is recommended: order code 91169 (patients >2yrs). See Note 1 Note 1 For additional information, please refer to http://education.Quat-E/faq/GVN299 (This link is being provided for informational/ educational purposes only.) THYROID PANEL WITH TSH (6544 ) Reviewed date:02/22/2025 10:41:38 AM Interpretation: Performing Lab:[facility] [id number] [employer] LtdV[facility], [facility] CenterBeclKE[address] [place] Notes/Report: NON-FASTING; NON-FASTING; NON-FASTING; NON-FASTING; NON-FAST T3 UPTAKE 28 22-35 % T4 (THYROXINE), TOTAL 7.8 4.9-10.5 mcg/dL FREE T4 INDEX (T7) 2.2 1.4-3.8 TSH 1.30 0.40-4.50 mIU/L BASIC METABOLIC PANEL (25131 ) Reviewed date:12/21/2024 02:53:46 PM Interpretation: Performing Lab:[facility] [employer] [place] [employer] [id number] [employer] Pvt LtdVirtua [facility], [facility] CenterRydaSI[address] [place] Notes/Report: NON-FASTING GLUCOSE 86 65-99 [...] 37 20-32 mmol/L CALCIUM 7.8 8.6-10.3 mg/dL Reason For Referral No Information Medications Medication SIG (Take, Route, Frequency, Duration) Notes Start Date End Date Status [facility] 160-9-4.8 MCG/ACT 2 puffs Inhalation Twice [...] Risk Notes Problem Malignant tumor of lung (899196767) Malignant neoplasm of unspecified part of unspecified bronchus or lung (C34.90) Active confirmed Problem Hypocalcemia (4260790) Hypocalcemia (E83.51) Active confirmed Problem Primary insomnia (5345748) Primary insomnia (F51.01) Active confirmed Problem Essential tremor (713584467) Essential tremor (G25.0) Active confirmed Problem Essential hypertension (37033986) Essential (primary) hypertension (I10) Active confirmed Problem Vasomotor rhinitis (4113394) Vasomotor rhinitis (J30.0) Active confirmed Problem Acute on chronic hypoxemic and hypercapnic respiratory failure (disorder) (05863005655681) Acute and chronic respiratory failure with hypercapnia (J96.22) Active confirmed Problem Osteoarthritis (102596711) Unspecified osteoarthritis, unspecified site (M19.90) Active confirmed Problem Nicotine dependence (34902970) Personal history of nicotine dependence (Z87.891) Active confirmed Problem Acute exacerbation of chronic obstructive airways disease (679990954) COPD with exacerbation (J44.1) Active confirmed Problem 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) (6381927054694082 7) 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) Active confirmed Problem Restless legs syndrome (40358861) Restless leg syndrome (G25.81) Active confirmed Problem Idiopathic peripheral neuropathy (73623689) Idiopathic peripheral neuropathy (G60.9) Active confirmed Problem 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) Active confirmed Problem Cigarette smoker (61151578) Cigarette smoker (F17.210) Active confirmed Problem Tobacco dependence (88990586) Tobacco dependence (F17.200) Active confirmed Problem Oropharyngeal dysphagia (16507324) Oropharyngeal dysphagia (R13.12) Active confirmed Problem Dependence on supplemental oxygen (527881867567) Oxygen dependent (Z99.81) Active confirmed Problem Irritable bowel syndrome characterized by constipation (162589556) Irritable bowel syndrome with constipation (K58.1) Active confirmed Problem Lower urinary tract symptoms due to benign prostatic hypertrophy (92672810065066) Benign prostatic hyperplasia with lower urinary tract symptoms (N40.1) Active confirmed Problem Chronic obstructive pulmonary disease (23774574) COPD, group D, by GOLD 2017 classification (J44.9) Active confirmed Vital Signs Heart Rate 74 /min 08/28/2025 Temperature 97.5 degrees Fahrenheit 08/28/2025 Oximetry 99 08/18/2025 Blood pressure diastolic 86 mm Hg 08/28/2025 Height 5 ft 10 in in 08/28/2025 Blood pressure systolic 110 mm Hg 08/28/2025 Weight 116 lbs 08/28/2025 BMI 16.64 kg/m2 08/28/2025 Encounters Encounter Location Date Provider Diagnosis [facility] [address] [place] [address] 02/11/2025 Provider Migration COPD, group D, by GOLD 2017 classification J44.9 [facility] [address] [place] [address] 09/26/2024 Main Carrington COPD, group D, by GO LD 2017 classification J44.9 ; Acute and chronic respiratory failure with hypercapnia J96.22 ; Malignant neoplasm of unspecified part of unspecified bronchus or lung C34.90 and Hospital discharge follow-up Z09 [facility] [address] [place] [address] 10/10/2024 Main Besson Hypocalcemia E83.51 and Hospital discharge follow-up Z09 [facility] [address] [place] [address] 10/17/2024 Main Besson Hypocalcemia E83.51 [facility] [address] [place] [address] 11/08/2024 Cathie Chang COPD exacerbation J44.1 [facility] [address] [place] [address] 11/21/2024 Main Besson COPD, group D, by GO LD 2017 classification J44.9 ; Acute and chronic respiratory failure with hypercapnia J96.22 and Hospital discharge follow-up Z09 [facility] [address] [place] [address] 12/19/2024 Main Besson Hypocalcemia E83.51 and COPD, group D, by GOLD 2017 classification J44.9 [facility] [address] [place] [address] 02/20/2025 Main Besson Idiopathic periphera l neuropathy G60.9 ; COPD, group D, by GOLD 2017 classification J44.9 and Malignant neoplasm of unspecified part of unspecified bronchus or lung C34.90 [facility] [address] [place] [address] 05/01/2025 Main Besson COPD, group D, by GO LD 2017 classification J44.9 ; Acute and chronic respiratory failure with hypercapnia J96.22 ; Malignant neoplasm of unspecified part of unspecified bronchus or lung C34.90 ; Essential (primary) hypertension I10 ; Chronic constipation K59.09 ; Benign prostatic hyperplasia with lower urinary tract symptoms N40.1 ; Nocturia R35.1 and Routine medical exam Z00.00 [facility] [address] [place] [address] 06/05/2025 Main Besson Irritable bowel syndrome with constipation K58.1 [facility] [address] [place] [address] 08/01/2025 Cathie Emeryence Acute traumatic pain G89.11 ; Left-sided chest wall pain R07.89 and Oxygen dependent Z99.81 [facility] [address] [place] [address] 08/18/2025 Main Carrington Lobar pneumonia J18. 1 ; COPD with exacerbation J44.1 ; Hospital discharge follow-up Z09 and Immunization(s) administered Z23 [facility] [address] [place] [address] 08/28/2025 Main Carrington COPD, group D, by GO LD 2017 classification J44.9 and Malignant neoplasm of unspecified part of unspecified bronchus or lung C34.90 [facility] [address] [place] [address] 10/03/2024 Main Carrington COPD, group D, by GO LD 2017 classification J44.9 and Acute and chronic respiratory failure with hypercapnia J96.22 [facility] [address] [place] [address] 11/14/2024 Main Gutierrezson [facility] [address] [place] [address] 04/11/2025 Main Carrington Essential tremor G25 .0 [facility] [address] [place] [address] 05/09/2025 Main Carrington Chronic constipation K59.09 [facility] [address] [place] [address] 07/12/2025 Main Besson [facility] [address] [place] [address] 08/01/2025 Cathie Dimple [facility] [address] [place] [address] 08/03/2025 Cathie Dimple [facility] [address] [place] [address] 08/11/2025 Main Carrington Assessments Encounter Date Diagnosis (ICD Code) Assessment Notes Treatment Notes Treatment Clinical Notes Section Notes 09/26/2024 Acute and chronic respiratory failure with hypercapnia (ICD-10 - J96.22) Patient given short-term Xanax in the hospital help with what was felt to be an anxiety component. He stopped this. He does not think it helped. He thinks it made him sleepy and did not want to eat. His corroborates this and they do not think it helped his tachypnea 09/26/2024 COPD, group D, by GOLD 2017 [...] J96.22) Currently stable on oxygen. Very tenuous 02/20/2025 Idiopathic peripheral neuropathy (ICD-10 - G60.9) [...] point 04/11/2025 Essential tremor (ICD-10 - G25.0) 11/21/2024 COPD, group D, by GOLD 2017 classification (ICD-10 - J44.9) Severe and end-stage. Follows with pulmonary. May be a good candidate for daily prednisone, may also be a good candidate for Roxanol. Will follow-up in 3 to 4 weeks. 02/11/2025 COPD, group D, by GOLD 2017 classification (ICD-10 - J44.9) 05/01/2025 Acute and chronic respiratory failure with hypercapnia (ICD-10 - J96.22) See notes above, 05/01/2025 COPD, group D, by GOLD 2017 classification (ICD-10 - J44.9) On oxygen, remains in stage with his COPD. High risk of chronic respiratory failure. However right now seems to be stable. No changes in plan 05/09/2025 Chronic constipation (ICD-10 - K59.09) 08/01/2025 Left-sided chest wall pain (ICD-10 - [...] oxygen and nebs. Unfortunately continues to smoke 08/28/2025 Malignant neoplasm of unspecified part of unspecified bronchus or lung (ICD-10 - C34.90) Follows with pulmonary. Check chest x-ray. 08/28/2025 COPD, group D, by GOLD 2017 classification (ICD-10 - J44.9) At baseline, on oxygen, still smoking. No changes in plan. Follow-up after pulmonary visit 06/05/2025 Irritable bowel syndrome with constipation (ICD-10 - K58.1) Given the fact that Colace is doing well we will continue this. 2 caps daily, discussed hydration issues. Keep regular follow-up for flu shot in the fall. 12/19/2024 Hypocalcemia (ICD-10 - E83.51) Calcium 6.2 at most recent visit, has been taking medications as prescribed. Will check repeat BMP today to follow calcium trend. 12/19/2024 COPD, group D, by GOLD 2017 classification (ICD-10 - J44.9) Stable on current inhalers/therapies. Given frequent exacerbations, will start patient back on Azithromycin 3 x weekly to help prevent further exacerbations. 08/18/2025 Lobar pneumonia (ICD-10 - J18.1) Appears stable/improving. Continue current antibiotic therapy, follow-up with pulmonary. I will see him on August 28 for follow-up. 08/18/2025 Hospital discharge follow-up (ICD-10 - Z09) Personally reviewed H&P and discharge summary as available from hospital discharge documentation. Reviewed pertinent labs and test done in the hospital. Personally reconciled medication. 08/01/2025 Oxygen dependent (ICD-10 - Z99.81) 02/20/2025 Malignant neoplasm of unspecified part of unspecified bronchus or lung (ICD-10 - C34.90) Follows with oncology. Currently stable. I have reviewed all notes from oncology 05/01/2025 Malignant neoplasm of unspecified part of unspecified bronchus or lung (ICD-10 - C34.90) Follows with oncology. No need for screening of other cancers at this point 11/21/2024 Hospital discharge follow-up (ICD-10 - Z09) Reviewed H&P and discharge summary, personally reconciled medications. Patient has all medications, has follow-up scheduled. Discussed with him that if anxiety worsens to let me know 09/26/2024 Malignant neoplasm of unspecified part of unspecified bronchus or lung (ICD-10 - C34.90) Has follow-up with oncology in 09/26/2024 Hospital discharge follow-up (ICD-10 - Z09) Reviewed discharge summary, H&P and personally reconciled meds. Continue routine follow-up on October05/01/2025 Essential (primary) hypertension (ICD-10 - I10) 08/18/2025 Immunization(s) administered (ICD-10 - Z23) 05/01/2025 Chronic [...] word recall. Declines vaccinations Plan Of Treatment Pending Test Test Name Order Date M-Complete Blood Count Auto Diff 024 M-Comprehensive Metabolic Panel 10/03/20 24 M-Magnesium 10/03/2024 Next Appt Details Provider Name:Main Carrington, 10/09/2025 10:15:00 AM, [address], [place], [address], Insurance Providers Payer Name Payer Address Payer Phone Subscriber Number Group Number Insured Name Patient Relationship to Insured Coverage Start Date Coverage End Date [employer] [address] [place] [address] [phone] [id number] Alejandro Wang Self - patient is the insured Medications Administered Medication Instructions Date of Administration Dosage Notes Dexamethasone 4mg Injection 05/31/2024 4 mg Dexamethasone 4mg Injection 08/24/2024 4 mg Medical (General) History Medical History History ICD Code RLS HTN COPD Lung/ Liver cancer Partially Collapsed right lung 3L oxygen Surgical History Surgery Date(Month/Year) port installed 12/2022 Hospitalization History Reason Date(Month/Year) [facility] 08/2025 [facility]/2024 [facility] 09[facility]24 [facility] EXACERBATION 06/10/24-06/12/24
[2025-09-17 21:45] VITALS: BP 119/68; PULSE 66; RESP 26; TEMP 36.9; O2SAT 88; BMI 16.6
--- NOTE | 2025-09-17 21:59 | XR_ITS ---
PROCEDURE INFORMATION: Exam: XR Chest Exam date and time: 09/17/2025 10:10 PM Age: 70 years old Clinical indication: Shortness of breath; Additional info: Cp/soa TECHNIQUE: Imaging protocol: Radiologic exam of the chest. Views: 1 view. COMPARISON: CR XR CHEST 2V 09/12/2025 9:36 AM FINDINGS: Tubes, catheters and devices: Right subclavian infusion port remains in place. Lungs: Chronic scarring and atelectasis of the right lung again noted. Spiculated nodular opacity in the right lung apex appears stable to slightly smaller in size. Stable calcified granuloma in the left lower lung. Left lung is otherwise clear. Pleural spaces: Unremarkable. No pleural effusion. No pneumothorax. Heart/Mediastinum: Unremarkable. No cardiomegaly. Bones/joints: Unremarkable. IMPRESSION: No significant acute interval change
[2025-09-17 22:00] VITALS: BP 119/68; PULSE 103; O2SAT 100
--- NOTE | 2025-09-17 22:09 | ECG_ITS ---
APPROVED REPORT Exam: Resting ECG HR:107 bpm ECG Measurements Heart Rate 107 AXES TX 147 P 86 QRSd 100 QRS 82 QT 341 T 72 QTc 404 Conclusion SINUS TACHYCARDIA WITH OCCASIONAL SUPRAVENTRICULAR PREMATURE COMPLEXES RIGHT ATRIAL ENLARGEMENT [0.3mV P-WAVE] ABNORMAL ECG UNCONFIRMED REPORT Electronically signed by : RENATE PADRON, 09/18/2025 02:47:50
--- NOTE | 2025-09-17 22:12 | ED_ITS ---
Discharge Plan Disposition Patient Disposition: Admitted Clinical Impressions Clinical Impression: Acute and chronic respiratory failure, Acute exacerbation of chronic obstructive pulmonary disease Discharge ED Provider: Mohamud Sierra HPI <Macy Reyes, - Last Filed: 09/17/25 23:23> General Chief Complaint: Shortness of Breath/Dyspnea Stated Complaint: SOA, Time Seen by Provider: 09/17/25 21:34 Mode of Arrival: Wheelchair Source of Information: Patient Description of Symptoms (Recalled from ER Triage Doc. by RN): PT states he has felt short of air for the last three days from the weather change. PT states he developed a dry cough around 3 days ago, and has been increasingly SOA since. PT states he woke up this morning and was gasping for air. Pt has a hx of COPD, and is a current heavy daily smoker History of Present Illness HPI narrative: This patient is a 70-year-old male with a history of COPD, lung cancer not currently on treatment, chronic respiratory failure, hypertension presented to the emergency department for evaluation with concern for shortness of breath. Patient reports that he started feeling bad yesterday, but today got much worse. He states is not able to breathe at all. No other concerns or complaints reported. On medical record review, he follows with Dr. Webber with pulmonology and is chronically on azithromycin maintenance therapy. He is scheduled for outpatient CT in October according to the patient and family. Related Data Home Medications ?Medication ?Instructions ?Recorded ?Confirmed trazodone 150 mg tablet 150 mg PO HS 07/03/22 aspirin 325 mg tablet 325 mg PO DAILY 05/11/2303/03 propranolol 20 mg tablet 20 mg PO BID 08/23/24 azelastine 137 mcg (0.1 %) nasal 1 spray intranasal Q6 HP PRN 08/11/25 09/12/25 spray allergy symptoms polyethylene glycol 3350 17 gram 17 g PO DAILYP PRN Co nstipation 08/11/25 09/12/25 oral powder packet ([employer]Lax) Previous Rx's ?Medication ?Instructions ?Recorded calcium carbonate (Calcium 500) 1,000 mg (2 x 500 mg c alcium 10/01/24 (1,250 mg)) PO DAILY #10 tabs ferrous sulfate 325 mg (65 mg 325 mg PO DAILY #90 tabs 11/29/24 iron) tablet albuterol sulfate 90 mcg/actuation 2 inh inhalation QI D PRN shortness 07/11/25 aerosol inhaler of breath or wheezing 90 day s #8.5 grams budesonide 160 mcg-glycopyr 9 2 inh inhalation BID 90 days #10.7 08/21/25 mcg-formot 4.8 mcg/actuation HFA grams inhaler (Breztri Aerosphere) ipratropium 0.5 mg-albuterol 3 mg 3 ml inhalation QIDP PRN Shortness 08/21/25 (2.5 mg base)/3 mL nebulization Of Breath Or Wheezing 90 days #180 soln mL Allergies Allergy/AdvReac Type Severity Reaction Status Date / Time silver (From [employer] Allergy Severe Rash Verified 09/12/25 09:56 Mesh) doxycycline Allergy Mild GI upset Verified 09/12/25 09:56 Penicillins (PENICILLINS) Allergy Mild Unknown Verified 09/12/25 09:56 allergy reaction amitriptyline AdvReac Intermediate gi upset Verified 09/12/25 09:56 adhesive AdvReac Rash Verified 09/12/25 09:56 hydrocodone AdvReac gi upset Verified 09/12/25 09:56 [facility] <Macy Reyes DO - Last Filed: 09/17/25 23:23> [facility] Disclaimer: The information contained in this section may have been updated after the patient was seen, as this information can be updated by other users. Medical History Hypomagnesemia Hypocalcemia Hypomagnesemia Hypocalcemia COPD exacerbation Hypocalcemia Acute exacerbation of chronic obstructive pulmonary disease Acute on chronic hypoxic respiratory failure Asthma exacerbation in COPD Shortness of breath Acute exacerbation of chronic obstructive pulmonary disease Dyspnea On home oxygen therapy Acute and chronic respiratory failure with hypercapnia Acute exacerbation of chronic obstructive airways disease Community acquired pneumonia Bilateral impacted cerumen Tinnitus Hearing loss Lung nodule Hilar lymphadenopathy Pneumonia Sleep apnea Emphysema/COPD Chronic cough Bronchitis Allergies History of anemia Lung collapse Nodule of right lung Tobacco abuse disorder Tobacco abuse counseling Small cell lung cancer Smoking greater than 30 pack years Chronic hypoxemic respiratory failure COPD (chronic obstructive pulmonary disease) Dyspnea on exertion On home O2 Sinus problem History of chemotherapy History of radiation therapy Personal history of arthritis History of lung disease Hyperlipemia Cancer Asthma Essential hypertension COPD exacerbation Surgical History History of insertion of tunneled central venous catheter (CVC) with port History of colonoscopy Hx of cardiac catheterization Normal coronary arteries History of sinus surgery Family History Other Cancer Diabetes Social History Smoking Status: Current every day smoker tobacco type: cigarettes packs per day: 1 years smoked: 50 alcohol intake: former substance use type: denies use current occupational status: retired and disabled Travel in the last 8 weeks?: None household members: spouse housing: house caffeine: Yes Have you lived/traveled outside US in past 30 days?: No Contact w/someone who lives/traveled outside US past 30 days?: No Exposure to someone with infectious disease in past 14 days?: No Do you have a fever (greater than 100.4 F or 38 C)?: No Have you tested positive for COVID-19?: No Exposed to someone with COVID-19 in past 14 days?: No Do you have a sore throat?: No Do you have a cough?: No Do you have any weakness?: No Do you have any diarrhea?: No Are you experiencing any unusual bleeding?: No Do you have any muscle aches/pain?: No Do you have any abdominal pain?: No Are you experiencing loss of taste or smell?: No Other Medical History Have you received the Flu Vaccine for this season: No Have you received the Pneumonia Vaccine: No <Macy Reyes DO - Last Filed: 09/17/25 23:23> ROS Obtained: Yes All systems reviewed & no additional complaints except as documented Physical Exam <Macy Reyes DO - Last Filed: 09/17/25 23:23> General General appearance: alert and in distress Comment: Thin, frail, chronically ill-appearing, pale in respiratory distress Head Head exam: atraumatic and normocephalic Eye Eye exam: Present normal appearance, PERRL and EOMI ENT ENT exam: Present normal exam, normal oropharynx, mucous membranes moist and normal external ear exam Neck Neck exam: Present normal inspection, full ROM and trachea midline; Absent tenderness Chest Chest inspection: Present normal inspection and symmetric chest wall rise; Absent tenderness Respiratory Respiratory exam: Present respiratory distress, wheezes, accessory muscle use, prolonged expiratory phase and other (Diminished breath sounds bilaterally); Absent stridor Cardiovascular Cardiovascular exam: Present normal rhythm and tachycardia Abdominal Exam Abdominal exam: Present soft; Absent distention, tenderness or guarding Extremities Exam Extremities exam: Present normal inspection, full ROM and normal capillary refill; Absent tenderness or edema Back Exam Back exam: Present normal inspection and full ROM; Absent tenderness Neurological Exam Neurological exam: Present alert, oriented X3, CN II-XII intact and normal gait; Absent motor sensory deficit Psychiatric Psychiatric exam: Present normal affect and normal mood Skin Skin exam: Present warm, dry and pallor HEART Score <Macy Reyes DO - Last Filed: 09/17/25 23:23> HEART Score HEART Score assessment performed?: No History (anamnesis): Slightly suspicious ECG: Normal Age: >65 years Risk factors: 3 or more risk factors Critical Care <Macy Reyes DO - Last Filed: 09/17/25 23:23> Critical Care Time Critical Care Time: No Medical Decision Making <Macy Reyes DO - Last Filed: 09/17/25 23:23> [place] Inquiry Pt receiving controlled substance: No Vital Signs Vital Signs: 09/17/25 21:45 09/18/25 00:21 09/18/25 00:22 Temperature 98.4 F Temperature Source Axillary Pulse Rate 102 H Pulse Rate [Right] 66 Respiratory Rate 26 H 22 Blood Pressure 137/77 Blood Pressure [Right Arm] 119/68 Blood Pressure Mean [Right Arm] 85 Blood Pressure Source [Right Arm] Manual Cuff/ Doppler Blood Pressure Position [Right Arm] Sitting 02 Sat by Pulse Oximetry 88 L 100 98 Oxygen Delivery Method Nasal Cannula Nasal Cannula Nasal Cannula Oxygen Flow Rate (LPM) 3 3 3 09/18/25 00:23 Temperature 98.9 F Temperature Source Axillary Pulse Rate 103 H Pulse Rate [Right] Respiratory Rate 22 Blood Pressure 135/77 Blood Pressure [Right Arm] Blood Pressure Mean [Right Arm] Blood Pressure Source [Right Arm] Blood Pressure Position [Right Arm] 02 Sat by Pulse Oximetry Oxygen Delivery Method Nasal Cannula Oxygen Flow Rate (LPM) 3 Lab Data Labs: Lab Results 09/17/25 22:06: WBC 7.0, RBC 3.30 L, Hgb 9.2 L, Hct 28.9 L, MCV 87.6, MCH 27.9, MCHC 31.8, RDW 14.6, Plt Count 370, MPV 8.8, Neut % (Auto) 71.4, Lymph % (Auto) 15.3, Erie % (Auto) 11.0 H, Eos % (Auto) 1.6, Baso % (Auto) 0.4, Neut # (Auto) 5.0, Lymph # (Auto) 1.1, Erie # (Auto) 0.8, Eos # (Auto) 0.1, Baso # (Auto) 0.0, PT 11.8, INR 1.07, D-Dimer 1.06 H, VBG pH 7.33, VBG pCO2 60.7 H, VBG pO2 57.1 H, VBG HCO3 31.3 H, VBG Total CO2 33.1 H, VBG O2 Saturation 86.5 H, VBG Base Excess 5.4 H, VBG Lactic Acid 1.0, Sodium 134 L, Potassium 3.7, Chloride 94 L, Carbon Dioxide 31 H, Anion Gap 12.7, BUN 10, Creatinine 0.70, Estimated Creat Clear 53, Estimated GFR 112, Est GFR ( Amer) 136, Glucose 126 H, Lactate 0.6 L, C alcium 6.7 L, Total Bilirubin 0.2, AST 27, ALT 12, Alkaline Phosphatase 87, Troponin I < 0.01, NT-Pro-B Natriuret Pep 477 H, Total Protein 7.4, Albumin 4.0, Globulin 3.4 H, Albumin/Globulin Ratio 1.2 09/17/25 22:06 09/17/25 22:06 Response Orders (Tests/Meds): ED MEDICATIONS Generic Name Dose Route Start Last Admin Trade Name Freq PRN Reason Stop Dose Admin Acetaminophen 650 mg 09/18/25 00:19 Acetaminophen 325mg Tab PO 10/18/25 00:18 Q4HP PRN Fever or Mild Pain (1-3) Enoxaparin Sodium 40 mg 09/18/25 09:00 Enoxaparin 40mg/0.4ml Syringe SUBCUT 10/18/25 08:59 DAILY DOREEN Magnesium Sulfate 2 gm in 50 mls @ 50 mls/hr 09/18/25 00:09 09/18/25 00:14 Magnesium Sulfate 2gm/50ml Premix IV 09/18/25 01:08 50 mls/hr ONCE ONE Administration Levofloxacin/Dextrose 250 mg in 50 mls @ 100 mls/hr 09/18/25 00:15 Levaquin 250mg/50ml Premix IV 09/28/25 00:14 Q24H DOREEN Calcium Gluconate/Sodium Chloride 2 gm in 100 mls @ 50 mls/hr 09/18/25 00:16 Calcium Gluconate 2,000mg/100ml Nacl Premix IV 09/18/25 02:15 ONCE ONE Pantoprazole Sodium 40 mg 09/18/25 21:00 Pantoprazole 40mg Tablet PO 10/18/25 20:59 HS DOREEN Sodium Chloride 3 ml 09/17/25 21:59 Sodium Chloride 3% 15ml Neb 10/17/25 21:58 ONCE PRN INDUCE SPUTUM COLLECTION Discontinued Medications Generic Name Dose Route Start Last Admin Trade Name Freq PRN Reason Stop Dose Admin Albuterol Sulfate 20 mg 09/18/25 00:09 09/18/25 00:16 Albuterol 0.083% 2.5 Mg/3 Ml [facility] 09/18/25 00:10 20 mg ONCE ONE Administration Albuterol/Ipratropium 9 ml 09/17/25 21:59 09/17/25 22:30 Ipratropium/Albuterol 3 Ml [facility] 09/17/25 22:00 9 ml ONCE ONE Administration Iopamidol 70 ml 09/18/25 00:04 09/18/25 00:06 Iopamidol-370 (76%);100ml Bottle IV 09/18/25 00:05 70 ml ONCE ONE Administration Methylprednisolone Sodium Succinate 125 mg 09/17/25 21:59 09/17/25 22:30 Methylprednisolone Sod Succ 125mg Vial IV 09/17/25 22:00 125 mg ONCE ONE Administration Sodium Chloride 50 ml 09/18/25 00:04 09/18/25 00:06 0.9 % Sodium Chloride 50 Ml Vial IV 09/18/25 00:05 50 ml ONCE ONE Administration Sodium Chloride 10 ml 09/18/25 00:04 09/18/25 00:06 Sodium Chloride 0.9% 10ml Syr (Rad Only) IV 09/18/25 00:05 10 ml ONCE ONE Administration ORDERS Category Date Time Status CT angio chest PE protocol Stat Cat Scan 09/17/25 22:55 Completed CXR --portable [XR chest portable] Stat Exams 09/17/25 21:59 Completed BNP [NT Pro Brain Natriuretic Pep.] Stat Lab 09/17/25 22:06 Completed Complete Blood Count Auto Diff AMLAB Lab 09/18/25 06:00 Ordered Complete Blood Count Auto Diff Stat Lab 09/17/25 22:06 Completed Comprehensive Metabolic Panel AMLAB Lab 09/18/25 06:00 Ordered Comprehensive Metabolic Panel Stat Lab 09/17/25 22:06 Completed D-Dimer Stat Lab 09/17/25 22:06 Completed Full Resp Panel w/COVID ([facility]) Routine Lab 09/18/25 00:12 Received Lactic Acid Stat Lab 09/17/25 22:06 Completed Prothrombin Time INR Stat Lab 09/17/25 22:06 Completed Trop I [Troponin I] Stat Lab 09/17/25 22:06 Completed Troponin I Q3H Lab 09/18/25 01:00 Ordered Troponin I Q3H Lab 09/18/25 04:00 Ordered Sputum Culture & Gram Stain Stat Micro 09/17/25 00:12 Received VBG [Venous Blood Gas] Stat RT 09/17/25 22:06 Completed ECG Data Tracing #1: Attestation: I reviewed this ECG and interpreted as documented below: ECG Narrative: I dependently interpreted EKG at 2211 and noted sinus tachycardia with a ventricular of [address] changes concerning for STEMI. Normal intervals ECG initial impression date: 09/17/25 ECG initial impression time: 22:11 MDM Narrative Medical Decision Narrative: In summary, this patient is a 70-year-old male presenting to the Emergency Department for evaluation of shortness of breath. Differential diagnoses considered include but are not limited to COPD exacerbation, respiratory failure, pneumonia, recurrence of malignancy, PE, CHF. Ruling out the most morbid conditions drove assessment. It should be noted patient's history includes COPD, lung cancer, hypertension which likely are not at goal therapy. This complicates all aspects of care by increasing patient's risk for morbidity. I reviewed patient's past medical records and noted prior evaluations by pulmonology for maintenance of health. On exam, the patient is thin, frail, chronically ill-appearing and is in mild respiratory distress with diminished breath sounds bilaterally. Workup included CBC, CMP, troponin, BNP, VBG, D-dimer, coags, lactic acid, blood cultures, viral swab, chest x-ray, EKG. I independently interpreted EKG which demonstrates sinus tachycardia but otherwise is reassuring. Patient was given DuoNebs x 3 as well as IV methylprednisolone to assess for symptomatic improvement. Labs obtained demonstrated reassuring CBC with chronic anemia, no significant leukocytosis. Chemistry is largely pending at this time. VBG is reassuring with a compensated respiratory acidosis. D-dimer is mildly elevated, so I added on a CT PE protocol. I independently interpreted chest x-ray prior to radiology read and noted no large focal consolidation, no pneumothorax. CT PE, chemistry pending at time of signout to oncoming provider, Dr. Sierra <Mohamud Sierra MD - Last Filed: 09/18/25 00:30> Vital Signs Vital Signs: 09/17/25 21:45 09/18/25 00:21 09/18/25 00:22 Temperature 98.4 F Temperature Source Axillary Pulse Rate 102 H Pulse Rate [Right] 66 Respiratory Rate 26 H 22 Blood Pressure 137/77 Blood Pressure [Right Arm] 119/68 Blood Pressure Mean [Right Arm] 85 Blood Pressure Source [Right Arm] Manual Cuff/ Doppler Blood Pressure Position [Right Arm] Sitting 02 Sat by Pulse Oximetry 88 L 100 98 Oxygen Delivery Method Nasal Cannula Nasal Cannula Nasal Cannula Oxygen Flow Rate (LPM) 3 3 3 09/18/25 00:23 Temperature 98.9 F Temperature Source Axillary Pulse Rate 103 H Pulse Rate [Right] Respiratory Rate 22 Blood Pressure 135/77 Blood Pressure [Right Arm] Blood Pressure Mean [Right Arm] Blood Pressure Source [Right Arm] Blood Pressure Position [Right Arm] 02 Sat by Pulse Oximetry Oxygen Delivery Method Nasal Cannula Oxygen Flow Rate (LPM) 3 Lab Data Labs: Lab Results 09/17/25 22:06: WBC 7.0, RBC 3.30 L, Hgb 9.2 L, Hct 28.9 L, MCV 87.6, MCH 27.9, MCHC 31.8, RDW 14.6, Plt Count 370, MPV 8.8, Neut % (Auto) 71.4, Lymph % (Auto) 15.3, Erie % (Auto) 11.0 H, Eos % (Auto) 1.6, Baso % (Auto) 0.4, Neut # (Auto) 5.0, Lymph # (Auto) 1.1, Erie # (Auto) 0.8, Eos # (Auto) 0.1, Baso # (Auto) 0.0, PT 11.8, INR 1.07, D-Dimer 1.06 H, VBG pH 7.33, VBG pCO2 60.7 H, VBG pO2 57.1 H, VBG HCO3 31.3 H, VBG Total CO2 33.1 H, VBG O2 Saturation 86.5 H, VBG Base Excess 5.4 H, VBG Lactic Acid 1.0, Sodium 134 L, Potassium 3.7, Chloride 94 L, Carbon Dioxide 31 H, Anion Gap 12.7, BUN 10, Creatinine 0.70, Estimated Creat Clear 53, Estimated GFR 112, Est GFR ( Amer) 136, Glucose 126 H, Lactate 0.6 L, C alcium 6.7 L, Total Bilirubin 0.2, AST 27, ALT 12, Alkaline Phosphatase 87, Troponin I < 0.01, NT-Pro-B Natriuret Pep 477 H, Total Protein 7.4, Albumin 4.0, Globulin 3.4 H, Albumin/Globulin Ratio 1.2 Response Orders (Tests/Meds): ED MEDICATIONS Generic Name Dose Route Start Last Admin Trade Name Freq PRN Reason Stop Dose Admin Acetaminophen 650 mg 09/18/25 00:19 Acetaminophen 325mg Tab PO 10/18/25 00:18 Q4HP PRN Fever or Mild Pain (1-3) Enoxaparin Sodium 40 mg 09/18/25 09:00 Enoxaparin 40mg/0.4ml Syringe SUBCUT 10/18/25 08:59 DAILY DOREEN Magnesium Sulfate 2 gm in 50 mls @ 50 mls/hr 09/18/25 00:09 09/18/25 00:14 Magnesium Sulfate 2gm/50ml Premix IV 09/18/25 01:08 50 mls/hr ONCE ONE Administration Levofloxacin/Dextrose 250 mg in 50 mls @ 100 mls/hr 09/18/25 00:15 Levaquin 250mg/50ml Premix IV 09/28/25 00:14 Q24H DOREEN Calcium Gluconate/Sodium Chloride 2 gm in 100 mls @ 50 mls/hr 09/18/25 00:16 Calcium Gluconate 2,000mg/100ml Nacl Premix IV 09/18/25 02:15 ONCE ONE Pantoprazole Sodium 40 mg 09/18/25 21:00 Pantoprazole 40mg Tablet PO 10/18/25 20:59 HS DOREEN Sodium Chloride 3 ml 09/17/25 21:59 Sodium Chloride 3% 15ml [facility] 10/17/25 21:58 ONCE PRN INDUCE SPUTUM COLLECTION Discontinued Medications Generic Name Dose Route Start Last Admin Trade Name Julio PRN Reason Stop Dose Admin Albuterol Sulfate 20 mg 09/18/25 00:09 09/18/25 00:16 Albuterol 0.083% 2.5 Mg/3 Ml [facility] 09/18/25 00:10 20 mg ONCE ONE Administration Albuterol/Ipratropium 9 ml 09/17/25 21:59 09/17/25 22:30 Ipratropium/Albuterol 3 Ml [facility] 09/17/25 22:00 9 ml ONCE ONE Administration Iopamidol 70 ml 09/18/25 00:04 09/18/25 00:06 Iopamidol-370 (76%);100ml Bottle IV 09/18/25 00:05 70 ml ONCE ONE Administration Methylprednisolone Sodium Succinate 125 mg 09/17/25 21:59 09/17/25 22:30 Methylprednisolone Sod Succ 125mg Vial IV 09/17/25 22:00 125 mg ONCE ONE Administration Sodium Chloride 50 ml 09/18/25 00:04 09/18/25 00:06 0.9 % Sodium Chloride 50 Ml Vial IV 09/18/25 00:05 50 ml ONCE ONE Administration Sodium Chloride 10 ml 09/18/25 00:04 09/18/25 00:06 Sodium Chloride 0.9% 10ml Syr (Rad Only) IV 09/18/25 00:05 10 ml ONCE ONE Administration ORDERS Category Date Time Status CT angio chest PE protocol Stat Cat Scan 09/17/25 22:55 Completed CXR --portable [XR chest portable] Stat Exams 09/17/25 21:59 Completed BNP [NT Pro Brain Natriuretic Pep.] Stat Lab 09/17/25 22:06 Completed Complete Blood Count Auto Diff AMLAB Lab 09/18/25 06:00 Ordered Complete Blood Count Auto Diff Stat Lab 09/17/25 22:06 Completed Comprehensive Metabolic Panel AMLAB Lab 09/18/25 06:00 Ordered Comprehensive Metabolic Panel Stat Lab 09/17/25 22:06 Completed D-Dimer Stat Lab 09/17/25 22:06 Completed Full Resp Panel w/COVID ([facility]) Routine Lab 09/18/25 00:12 Received Lactic Acid Stat Lab 09/17/25 22:06 Completed Prothrombin Time INR Stat Lab 09/17/25 22:06 Completed Trop I [Troponin I] Stat Lab 09/17/25 22:06 Completed Troponin I Q3H Lab 09/18/25 01:00 Ordered Troponin I Q3H Lab 09/18/25 04:00 Ordered Sputum Culture & Gram Stain Stat Micro 09/17/25 00:12 Received VBG [Venous Blood Gas] Stat RT 09/17/25 22:06 Completed MDM Narrative Medical Decision Narrative: In summary, this patient is a 70-year-old male presenting to the Emergency Department for evaluation of shortness of breath. Differential diagnoses considered include but are not limited to COPD exacerbation, respiratory failure, pneumonia, recurrence of malignancy, PE, CHF. Ruling out the most morbid conditions drove assessment. It should be noted patient's history includes COPD, lung cancer, hypertension which likely are not at goal therapy. This complicates all aspects of care by increasing patient's risk for morbidity. I reviewed patient's past medical records and noted prior evaluations by pulmonology for maintenance of health. On exam, the patient is thin, frail, chronically ill-appearing and is in mild respiratory distress with diminished breath sounds bilaterally. Workup included CBC, CMP, troponin, BNP, VBG, D-dimer, coags, lactic acid, blood cultures, viral swab, chest x-ray, EKG. I independently interpreted EKG which demonstrates sinus tachycardia but otherwise is reassuring. Patient was given DuoNebs x 3 as well as IV methylprednisolone to assess for symptomatic improvement. Labs obtained demonstrated reassuring CBC with chronic anemia, no significant leukocytosis. Chemistry is largely pending at this time. VBG is reassuring with a compensated respiratory acidosis. D-dimer is mildly elevated, so I added on a CT PE protocol. I independently interpreted chest x-ray prior to radiology read and noted no large focal consolidation, no pneumothorax. CT PE, chemistry pending at time of signout to oncoming provider, Dr. Mariela Sierra MD: I assumed care of the patient at the time of handoff from the prior provider. On reassessment oxygen saturation is improved, but patient's work of breathing remains elevated. He is pursed lip breathing with accessory muscle use. Initiated on 2 g of mag and 1 hour continuous albuterol treatment as well as levofloxacin for COPD exacerbation. Patient was given IV calcium gluconate for hypocalcemia. CT imaging was independently interpreted by me, patient has some chronic scarring and cavitary lung changes, no new findings, no acute pneumonia or PE. Interactive discussion was had with the hospitalist on-call for admission for COPD exacerbation.
[2025-09-17 22:18] LABS: Lactate Venous 1.0 mmol/L (0.4-2.0); VBG HCO3 31.3 mmol/L (23-30); VBG PCO2 60.7 mmol/L (35-51); VBG PH 7.33 mmol/L (7.31-7.41); VBG PO2 57.1 mmol/L (28-40)
[2025-09-17 22:21] LABS: Hematocrit 28.9 % (42.0-52.0); Hemoglobin 9.2 g/dL (14.1-18.0); Immature Granulocytes % 0.3 %; Mean Corpuscular HGB Conc 31.8 g/dL (31.8-35.4); Mean Corpuscular Hemoglobin 27.9 pg (27.0-31.2); Mean Corpuscular Volume 87.6 fl (80-94); Nucleated Red Blood Cells % 0 %; Platelet Count 370 K/mm3 (142-424); Red Blood Count 3.30 M/mm3 (4.60-6.20); Red Cell Distribution Width-SD 47.2 fL; White Blood Count 7.0 K/mm3 (4.8-10.8)
[2025-09-17 22:30] VITALS: BP 108/72; PULSE 104; O2SAT 100
[2025-09-17] MEDS: METHYLPREDNISOLONE SOD SUCC 125MG VIAL 125 MG IV (22:30)
[2025-09-17] MEDS: IPRATROPIUM/ALBUTEROL 3 ML NEB 9 ML IH (22:30)
[2025-09-17 22:35] LABS: INR 1.07 (0.9-1.1); Prothrombin Time 11.8 seconds (10.1-12.5)
[2025-09-17 22:52] LABS: D-Dimer 1.06 ug/mL (0.0-0.5)
--- NOTE | 2025-09-17 22:55 | CT_ITS ---
PROCEDURE INFORMATION: Exam: CTA Chest With Contrast Exam date and time: 09/17/2025 11:52 PM Age: 70 years old Clinical indication: Condition or disease; Other: Resp failure; Shortness of breath; Additional info: Resp failure/soa TECHNIQUE: Imaging protocol: Computed tomographic angiography of the chest with contrast. Exam focused on the arteries. 3D rendering (Not supervised by radiologist): MIP and/or 3D reconstructed images were created by the technologist. Radiation optimization: All CT scans at this facility use at least one of these dose optimization techniques: automated exposure control; mA and/or kV adjustment per patient size (includes targeted exams where dose is matched to clinical indication); or iterative reconstruction. Contrast material: ISO 370; Contrast volume: 70 ml; Contrast route: INTRAVENOUS (IV); COMPARISON: CT ANGIO CHEST PE PROTOCOL 08/10/2025 1:49 PM FINDINGS: Tubes, catheters and devices: Right IJ infusion port in place. Pulmonary arteries: Normal. No pulmonary emboli. Aorta: Unremarkable. No aortic aneurysm. No aortic dissection. Lungs: Diffuse emphysema noted throughout both lungs. There are similar-appearing cavitary changes scarring/atelectasis in the right upper lung. Adjacent soft tissue opacity extends into the right hilar region. No well-defined mass lesion evident otherwise. Stable thin-walled cavitary changes also noted in the left upper lobe. No acute infiltrate. Pleural spaces: Unremarkable. No pneumothorax. No pleural effusion. Heart: Unremarkable. No cardiomegaly. No pericardial effusion. Lymph nodes: Unremarkable. No enlarged lymph nodes. Bones/joints: Unremarkable. No acute fracture. Soft tissues: Unremarkable. IMPRESSION: 1. No evidence of pulmonary embolus or acute aortic pathology 2. Persistent cavitary changes, scarring/atelectasis and emphysematous changes in both lungs, most pronounced in the right upper lobe. Findings appear similar to the prior study. COMMENTS: The presence of pulmonary emphysema on CT is an independent risk factor for lung cancer. In the absence of a history or active diagnosis of lung cancer, it is recommended that this patient with emphysema be evaluated for enrollment in a low dose CT lung cancer screening program.
[2025-09-17 23:00] VITALS: BP 127/68; PULSE 102; O2SAT 100
[2025-09-17 23:23] LABS: NT Pro Brain Natriuretic Pep. 477 pg/mL (0-125)
[2025-09-17 23:26] LABS: Alanine Aminotransferase 12 U/L (12-78); Albumin Level 4.0 g/dl (3.5-5.0); Albumin/Globulin Ratio 1.2 (1.1-1.8); Alkaline Phosphatase 87 U/L (38-126); Anion Gap 12.7 mEq/L (5-15); Aspartate Amino Transferase 27 U/L (17-59); Bilirubin,Total 0.2 mg/dl (0.2-1.3); Blood Urea Nitrogen 10 mg/dl (9-20); Calcium 6.7 mg/dl (8.4-10.2); Carbon Dioxide 31 mmol/L (22.0-30.0); Chloride 94 mmol/L (98-107); Creatinine Clearance Estimated 53 mL/min (50-200); Creatinine,Serum 0.70 mg/dl (0.66-1.25); Estimated Glomerular Filt Rate 112 ml/min (>60); GFR (African American) 136 ML/MIN (>60); Globulin 3.4 g/dL (1.3-3.2); Glucose 126 mg/dl (74-100); Potassium 3.7 mmoL/L (3.5-5.1); Sodium 134 mmol/L (136-145); Total Protein,Serum 7.4 g/dl (6.3-8.2); Troponin I < 0.01 ng/ml (0.00-0.034)
[2025-09-17 23:30] VITALS: BP 132/70; PULSE 92; O2SAT 97
[2025-09-18] VITALS (44 sets, daily range): BP systolic 111–156; BP diastolic 50–95; PULSE 96–133; RESP 12–24; TEMP 36.5–37.2; O2SAT 77–100; BMI 16.5
[2025-09-18] MEDS: 0.9 % SODIUM CHLORIDE 50 ML VIAL IV (00:06)
[2025-09-18] MEDS: SODIUM CHLORIDE 0.9% 10ML SYR (RAD ONLY) 10 ML IV (00:06)
[2025-09-18] MEDS: IOPAMIDOL-370 (76%);100ML BOTTLE 70 ML IV (00:06)
[2025-09-18] MEDS: MAGNESIUM SULFATE IN WATER 2 GM/50 ML PIGGYBACK IV (00:14)
[2025-09-18] MEDS: ALBUTEROL 0.083% 2.5 MG/3 ML NEB 20 MG IH (00:16)
[2025-09-18 00:22] LABS: Adenovirus,PCR Not Detected (NotDetected); Chlamydophila Pneumoniae, PCR Not Detected (NotDetected); Coronavirus 19, PCR Not Detected (NotDetected); Coronovirus HKU1,PCR Not Detected (NotDetected); Influenza A, PCR Not Detected (NotDetected); Influenza AH1, 2009 Not Detected (NotDetected); Influenza AH1, PCR Not Detected (NotDetected); Influenza AH3,PCR Not Detected (NotDetected); Influenza B, PCR Not Detected (NotDetected); Mycoplasma Pneumoniae, PCR Not Detected (NotDetected); Parainfluenza 1, PCR Not Detected (NotDetected); Parainfluenza 2, PCR Not Detected (NotDetected); Parainfluenza 3, PCR Not Detected (NotDetected); Parainfluenza 4, PCR Not Detected (NotDetected)
--- NOTE | 2025-09-18 00:28 | PC.NURSE ---
Report called to RAISA Beard on [employer]
--- NOTE | 2025-09-18 01:01 | PC.NURSE ---
patient arrived to ICU unit via ED stretcher from ED @00:49
[2025-09-18] MEDS: LEVOFLOXACIN/D5W 250 MG/50 ML PIGGYBACK 100 MG IV (01:19)
[2025-09-18] MEDS: METHYLPREDNISOLONE SOD SUCC 40MG VIAL 40 MG IV (01:53)
[2025-09-18] MEDS: CALCIUM GLUC IN NACL, ISO-OSM 2 GM/100 ML BAG IV (01:56)
--- NOTE | 2025-09-18 02:05 | P.HP_ITS ---
<Statement entered by Joshua Cannon MD - 09/18/25 23:32> On my evaluation of patient this morning, he had increased work of breathing with significant restricted airway breathing. Increased levalbuterol and ipratropium to every 4 hours, started Pulmicort. Continue steroids, antibiotics. He did wean down to room air a few hours later, requested to go home. Performed walk test, very symptomatic with shortness of breath and desaturations to the low 80s on room air. Given multiple comorbidities and advanced COPD, advised patient he needed at least another day of treatment to which he was amenable. I agree with rest of plan as outlined by the COMPUTER FORENSIC SPECIALIST. History of Present Illness *Admission Date: 09/18/25 *Reason for visit:: dyspnea *History of present illness: 70-year-old male patient with history of right small cell lung cancer previously undergone treatment with Opdivo has been off of that for 6 months. He wears 3 L nasal cannula oxygen at home. Presents to ER with complaints of increasing shortness of breath over the last 2 to 3 days. He does have a cough that is productive he does not know the color. Denies fever or chills. He states he has intermittent chest pain described as heavy lasting only a few minutes. He has had this for 4 to 5 years. Upon presentation to the ER he was found to be tachypneic with O2 sat in the 80s. He received DuoNeb treatments, steroids, Levaquin and magnesium. He did improve some. Upon arrival to the ICU his O2 sat on 3 L nasal cannula is 96%. [facility] Disclaimer: The information contained in this section may have been updated after the patient was seen, as this information can be updated by other users. Medical History (Updated 09/18/25 @ 02:17 by Kerir Sanderson APRN) Hypomagnesemia Hypocalcemia Hypomagnesemia Hypocalcemia COPD exacerbation Hypocalcemia Acute exacerbation of chronic obstructive pulmonary disease Acute on chronic hypoxic respiratory failure Asthma exacerbation in COPD Shortness of breath Acute exacerbation of chronic obstructive pulmonary disease Dyspnea On home oxygen therapy Acute and chronic respiratory failure with hypercapnia Acute exacerbation of chronic obstructive airways disease Community acquired pneumonia Bilateral impacted cerumen Tinnitus Hearing loss Lung nodule Hilar lymphadenopathy Pneumonia Sleep apnea Emphysema/COPD Chronic cough Bronchitis Allergies History of anemia Lung collapse Nodule of right lung Tobacco abuse disorder Tobacco abuse counseling Small cell lung cancer Smoking greater than 30 pack years Chronic hypoxemic respiratory failure COPD (chronic obstructive pulmonary disease) Dyspnea on exertion On home O2 Sinus problem History of chemotherapy History of radiation therapy Personal history of arthritis History of lung disease Hyperlipemia Cancer Asthma Essential hypertension COPD exacerbation Surgical History History of insertion of tunneled central venous catheter (CVC) with port History of colonoscopy Hx of cardiac catheterization Normal coronary arteries History of sinus surgery Family History Other Cancer Diabetes Social History Smoking Status: Current every day smoker tobacco type: cigarettes packs per day: 1 years smoked: 50 alcohol intake: former substance use type: denies use current occupational status: retired and disabled Travel in the last 8 weeks?: None household members: spouse housing: house caffeine: Yes Have you lived/traveled outside [place] in past 30 days?: No Contact w/someone who lives/traveled outside [place] past 30 days?: No Exposure to someone with infectious disease in past 14 days?: No Do you have a fever (greater than 100.4 F or 38 C)?: No Have you tested positive for COVID-19?: No Exposed to someone with COVID-19 in past 14 days?: No Do you have a sore throat?: No Do you have a cough?: No Do you have any weakness?: No Do you have any diarrhea?: No Are you experiencing any unusual bleeding?: No Do you have any muscle aches/pain?: No Do you have any abdominal pain?: No Are you experiencing loss of taste or smell?: No Other Medical History Have you received the Flu Vaccine for this season: No Have you received the Pneumonia Vaccine: No Review of Systems Constitutional Constitutional: Denies body ache(s), Denies chills and Denies fever(s) Eyes Eyes: Reports system reviewed and no additional complaints, except as documented ENT Ears, Nose, Mouth, and Throat: Reports system reviewed and no additional complaints, except as documented *Cardiovascular Cardiovascular: Reports chest pain and Reports dyspnea *Respiratory Respiratory: Reports cough, Reports dyspnea and Reports wheezing *Gastrointestinal Gastrointestinal: Denies nausea and Denies vomiting *Genitourinary Genitourinary: Denies dysuria *Musculoskeletal Musculoskeletal: Reports system reviewed and no additional complaints, except as documented *Neurologic Neurologic: Reports system reviewed and no additional complaints, except as documented Allergic/Immunologic Allergic/Immunologic: Reports wheezing Meds Home Medications and Allergies Home Medications ?Medication ?Instructions ?Recorded ?Confirmed ?Type trazodone 150 mg tablet 150 mg PO HS 07/03/22 History aspirin 325 mg tablet 325 mg PO DAILY 05/11/2303/03 History propranolol 20 mg tablet 20 mg PO BID 08/23/24 History calcium carbonate (Calcium 500) 1,000 mg (2 x 500 mg c alcium 10/01/24 09/12/25 Rx (1,250 mg)) PO DAILY #10 tabs ferrous sulfate 325 mg (65 mg 325 mg PO DAILY #90 tabs 11/29/24 09/12/25 Rx iron) tablet albuterol sulfate 90 mcg/actuation 2 inh inhalation QI D PRN shortness 07/11/25 09/12/25 Rx aerosol inhaler of breath or wheezing 90 day s #8.5 grams azelastine 137 mcg (0.1 %) nasal 1 spray intranasal Q6 HP PRN 08/11/25 09/12/25 History spray allergy symptoms polyethylene glycol 3350 17 gram 17 g PO DAILYP PRN Co nstipation 08/11/25 09/12/25 History oral powder packet (HealthyLax) budesonide 160 mcg-glycopyr 9 2 inh inhalation BID 90 days #10.7 08/21/25 09/12/25 Rx mcg-formot 4.8 mcg/actuation HFA grams inhaler (Breztri Aerosphere) ipratropium 0.5 mg-albuterol 3 mg 3 ml inhalation QIDP PRN Shortness 08/21/25 09/12/25 Rx (2.5 mg base)/3 mL nebulization Of Breath Or Wheezing 90 days #180 soln mL New Prescriptions to Start Prescriptions: Allergies Allergy/AdvReac Type Severity Reaction Status Date / Time silver (From [employer] Allergy Severe Rash Verified 09/12/25 09:56 Mesh) doxycycline Allergy Mild GI upset Verified 09/12/25 09:56 Penicillins (PENICILLINS) Allergy Mild Unknown Verified 09/12/25 09:56 allergy reaction amitriptyline AdvReac Intermediate gi upset Verified 09/12/25 09:56 adhesive AdvReac Rash Verified 09/12/25 09:56 hydrocodone AdvReac gi upset Verified 09/12/25 09:56 Exam Data for Last 24 hours Vital signs and Labs for Last 24 Hours: Temp Pulse Resp BP Pulse Ox O2 Del Method O2 Flow Rate 97.7 F 110 H 20 121/50 L 100 Nasal Cannula 3 09/18/25 01:00 09/18/25 02:00 09/18/25 01:00 09/18/25 02:00 09/18/25 02:00 09/18/25 02:00 09/18/25 02:00 Laboratory Results - last 24 hr 09/17/25 22:06: WBC 7.0, RBC 3.30 L, Hgb 9.2 L, Hct 28.9 L, MCV 87.6, MCH 27.9, MCHC 31.8, RDW 14.6, Plt Count 370, MPV 8.8, Neut % (Auto) 71.4, Lymph % (Auto) 15.3, Jasper % (Auto) 11.0 H, Eos % (Auto) 1.6, Baso % (Auto) 0.4, Neut # (Auto) 5.0, Lymph # (Auto) 1.1, Jasper # (Auto) 0.8, Eos # (Auto) 0.1, Baso # (Auto) 0.0, PT 11.8, INR 1.07, D-Dimer 1.06 H, VBG pH 7.33, VBG pCO2 60.7 H, VBG pO2 57.1 H, VBG HCO3 31.3 H, VBG Total CO2 33.1 H, VBG O2 Saturation 86.5 H, VBG Base Excess 5.4 H, VBG Lactic Acid 1.0, Sodium 134 L, Potassium 3.7, Chloride 94 L, Carbon Dioxide 31 H, Anion Gap 12.7, BUN 10, Creatinine 0.70, Estimated Creat Clear 53, Estimated GFR 112, Est GFR ( Amer) 136, Glucose 126 H, Lactate 0.6 L, Calcium 6.7 L, Total Bilirubin 0.2, AST 27, ALT 12, Alkaline Phosphatase 87, Troponin I < 0.01, NT-Pro-B Natriuret Pep 477 H, Total Protein 7.4, Albumin 4.0, Globulin 3.4 H, Albumin/Globulin Ratio 1.2 09/18/25 00:12: Chlamy pneumoniae PCR Not detected, Adenovirus (PCR) Not detected, B. pertussis DNA (PCR) Not detected, Coronavirus OC43 (PCR) Not detected, Coronavirus HKU1 (PCR) Not detected, Coronavirus 229E (PCR) Not d etected, SARS-CoV-2 (PCR) Not detected, Coronavirus NL63 (PCR) Not detected, Human Metapneumovir PCR Not detected, Influenza A (H1) PCR Not detected, Influ A (H1N1/09) PCR Not detected, Influenza A (H3) PCR Not detected, Influenza Type A (PCR) Not detected, Influenza Type B (PCR) Not detected, M. pneumoniae (PCR) Not detected, Parainfluenza 1 (PCR) Not detected, Parainfluenza 2 (PCR) Not detected, Parainfluenza 3 (PCR) Not detected, Parainfluenza 4 (PCR) Not detected, RSV (PCR) Not detected, Entero/Rhino (PCR) Not detected I & O for Last 24 hours: Intake & Output 09/15/25 09/16/25 09/17/25 09/18/25 23:59 23:59 23:59 23:59 Intake Total 100 / 100 Balance 100 / 100 Weight 52.617 kg 52.39 kg Constitutional Constitutional: moderate distress and cachectic *Routine HEENT Exam Head: Present normocephalic and atraumatic Eye: Present PERRL ENT: Present mucous membranes moist *Routine Neck Exam Neck: Present supple *Routine Respiratory Exam Respiratory: Present decreased breath sounds (Diminished throughout worse on the left) and wheezes (Worse on the left) *Routine Cardiovascular Exam Cardiovascular: Present Normal S1, Normal S2 and tachycardia *Routine Abdominal Exam Abdominal: Present soft and normoactive bowel sounds; Absent tenderness *Routine Rectal Exam Rectal:: deferred *Routine Genitalia Exam Genitalia:: deferred *Routine Extremities Exam Extremities: Present pulses intact; Absent edema *Routine Skin Exam Skin: Present intact, dry and warm *Routine Neurological Exam Neurological: Present alert, oriented X3 and moving all extremities Assessment and Plan *Assessment and plan (1) Acute exacerbation of chronic obstructive pulmonary disease: Status: Acute Category: Medical Code(s): J44.1 - Chronic obstructive pulmonary disease with (acute) exacerbation (2) Acute and chronic respiratory failure: Status: Acute Qualifiers: Respiratory failure complication: hypoxia and hypercapnia Qualified Code(s): J96.21 - Acute and chronic respiratory failure with hypoxia; J96.22 - Acute and chronic respiratory failure with hypercapnia Category: Medical Code(s): J96.20 - Acute and chronic respiratory failure, unspecified whether with hypoxia or hypercapnia (3) Tobacco dependence: Status: Chronic Category: Medical Code(s): F17.200 - Nicotine dependence, unspecified, uncomplicated (4) Metastatic lung cancer (metastasis from lung to other site): Status: Acute Qualifiers: Laterality: right Qualified Code(s): C34.91 - Malignant neoplasm of unspecified part of right bronchus or lung Category: Medical Code(s): C34.90 - Malignant neoplasm of unspecified part of unspecified bronchus or lung (5) Small cell lung cancer: Status: Chronic Qualifiers: Laterality: right Lung location: unspecified part of lung Qualified Code(s): C34.91 - Malignant neoplasm of unspecified part of right bronchus or lung Category: Medical Code(s): C34.90 - Malignant neoplasm of unspecified part of unspecified bronchus or lung (6) Essential hypertension: Status: Chronic Category: Medical Code(s): I10 - Essential (primary) hypertension Plan Patient presents with shortness of breath over 2 to 3 days and cough. Discussed the case with the ER physician agreed to admit for further treatment. He continues to smoke cigarettes daily. Does have history of lung cancer treated with Opdivo, been off treatment for 6 months. Received DuoNebs, Levaquin, steroid and magnesium in the ER and O2 sats did improve to mid 90s on 3 L nasal cannula which is his baseline. Chest x-ray shows no interval change from previous. CTA chest shows no evidence of pulmonary emboli or aortic pathology. Persistent cavitary changes, scarring/atelectasis and emphysematous changes in both lungs most pronounced in the right upper lobe findings are similar to prior study. He continues to be very diminished with wheezes so we will admit to stepdown level and continue IV steroids, breathing treatments and antibiotics. Will repeat labs in the morning. Discussed CODE STATUS, he wishes to be a full code.
[2025-09-18 03:43] LABS: Troponin I < 0.01 ng/ml (0.00-0.034)
[2025-09-18] MEDS: IPRATROPIUM/ALBUTEROL 3 ML NEB IH (05:00)
--- NOTE | 2025-09-18 08:05 | HMH.PHAINT1 ---
Pharmacy Intervention Comments: HOME MEDICATION LIST VERIFIED USING LIST FROM OUTPATIENT PHARMACY
[2025-09-18] MEDS: BUDESONIDE 0.5MG/2ML NEB 0.5 MG IH ×2 (09:14→19:01)
[2025-09-18] MEDS: IPRATROPIUM BROMIDE 0.5 MG/2.5ML SOLUTION IH ×3 (09:14→23:44)
[2025-09-18] MEDS: LEVALBUTEROL 1.25MG/3ML NEB 1.25 MG IH ×4 (09:14→23:44)
[2025-09-18] MEDS: ACETAMINOPHEN 325MG TAB 650 MG PO (09:42)
[2025-09-18 11:41] LABS: Hemoglobin 9.0 g/dL (14.1-18.0); Immature Granulocytes % 0.2 %; Mean Corpuscular HGB Conc 31.8 g/dL (31.8-35.4); Mean Corpuscular Hemoglobin 27.9 pg (27.0-31.2); Mean Corpuscular Volume 87.6 fl (80-94); Nucleated Red Blood Cells % 0 %; Platelet Count 347 K/mm3 (142-424); Red Blood Count 3.23 M/mm3 (4.60-6.20); Red Cell Distribution Width-SD 48.1 fL; White Blood Count 4.7 K/mm3 (4.8-10.8)
[2025-09-18 11:53] LABS: Alanine Aminotransferase 21 U/L (12-78); Albumin Level 4.3 g/dl (3.5-5.0); Albumin/Globulin Ratio 1.3 (1.1-1.8); Alkaline Phosphatase 74 U/L (38-126); Anion Gap 13.0 mEq/L (5-15); Aspartate Amino Transferase 28 U/L (17-59); Bilirubin,Total 0.3 mg/dl (0.2-1.3); Blood Urea Nitrogen 11 mg/dl (9-20); Calcium 7.9 mg/dl (8.4-10.2); Carbon Dioxide 33 mmol/L (22.0-30.0); Chloride 91 mmol/L (98-107); Creatinine Clearance Estimated 52 mL/min (50-200); Creatinine,Serum 0.70 mg/dl (0.66-1.25); Estimated Glomerular Filt Rate 112 ml/min (>60); GFR (African American) 136 ML/MIN (>60); Globulin 3.3 g/dL (1.3-3.2); Glucose 147 mg/dl (74-100); Hematocrit 28.3 % (42.0-52.0); Potassium 4.0 mmoL/L (3.5-5.1); Sodium 133 mmol/L (136-145); Total Protein,Serum 7.6 g/dl (6.3-8.2)
[2025-09-18 12:31] LABS: Troponin I < 0.01 ng/ml (0.00-0.034)
[2025-09-18 12:40] LABS: RBC Morphology Normal; Total Cells Counted 100
[2025-09-18] MEDS: 0.9 % SODIUM CHLORIDE 1000ML 500 ML 250 ML IV (13:39)
--- NOTE | 2025-09-18 13:40 | PC.NURSE ---
Patient oxygen saturation of 95% RA. Patient ambulated 20 feet on RA at this time. Patients oxygen saturation dropped to 83% on RA. Patient placed on 1 L NC. Patient oxygen saturation of 92% on 1 L NC. Patient had increased work of breathing with ambulation. notified. No new orders received. Continuation of care plan.
--- NOTE | 2025-09-18 15:19 | EXP.PULM.CON ---
History of Present Illness History of present illness: Mr. Simmons is a 70-year-old male greater than 30 PPD COPD chronic hypoxic respiratory failure small cell lung cancer presented to the worsening respiratory distress and pulmonary was called for further evaluation and management. [facility] Disclaimer: The information contained in this section may have been updated after the patient was seen, as this information can be updated by other users. Medical History Hypomagnesemia Hypocalcemia Hypomagnesemia Hypocalcemia COPD exacerbation Hypocalcemia Acute exacerbation of chronic obstructive pulmonary disease Acute on chronic hypoxic respiratory failure Asthma exacerbation in COPD Shortness of breath Acute exacerbation of chronic obstructive pulmonary disease Dyspnea On home oxygen therapy Acute and chronic respiratory failure with hypercapnia Acute exacerbation of chronic obstructive airways disease Community acquired pneumonia Bilateral impacted cerumen Tinnitus Hearing loss Lung nodule Hilar lymphadenopathy Pneumonia Sleep apnea Emphysema/COPD Chronic cough Bronchitis Allergies History of anemia Lung collapse Nodule of right lung Tobacco abuse disorder Tobacco abuse counseling Small cell lung cancer Smoking greater than 30 pack years Chronic hypoxemic respiratory failure COPD (chronic obstructive pulmonary disease) Dyspnea on exertion On home O2 Sinus problem History of chemotherapy History of radiation therapy Personal history of arthritis History of lung disease Hyperlipemia Cancer Asthma Essential hypertension COPD exacerbation Surgical History History of insertion of tunneled central venous catheter (CVC) with port History of colonoscopy Hx of cardiac catheterization Normal coronary arteries History of sinus surgery Family History Other Cancer Diabetes Social History Smoking Status: Current every day smoker tobacco type: cigarettes packs per day: 1 years smoked: 50 alcohol intake: former substance use type: denies use current occupational status: retired and disabled Travel in the last 8 weeks?: None household members: spouse housing: house caffeine: Yes Have you lived/traveled outside [place] in past 30 days?: No Contact w/someone who lives/traveled outside [place] past 30 days?: No Exposure to someone with infectious disease in past 14 days?: No Do you have a fever (greater than 100.4 F or 38 C)?: No Have you tested positive for COVID-19?: No Exposed to someone with COVID-19 in past 14 days?: No Do you have a sore throat?: No Do you have a cough?: No Do you have any weakness?: No Do you have any diarrhea?: No Are you experiencing any unusual bleeding?: No Do you have any muscle aches/pain?: No Do you have any abdominal pain?: No Are you experiencing loss of taste or smell?: No Review of Systems Constitutional Constitutional: Reports anorexia, Reports body ache(s) and Reports fatigue Eyes Eyes: Denies eye discharge, Denies dry eyes, Denies irritation and Denies itchy eyes ENT Ears, Nose, Mouth, and Throat: Denies epistaxis, Denies facial pain, Denies lip swelling and Denies throat swelling *Cardiovascular Cardiovascular: Reports dyspnea and Reports dyspnea on exertion *Respiratory Respiratory: Denies change in phlegm color, Reports chest congestion, Reports cough, Reports dyspnea, Reports dyspnea on exertion, Denies excessive phlegm production, Denies hemoptysis, Denies pain on inspiration, Denies pain with cough and Reports wheezing *Gastrointestinal Gastrointestinal: Denies abdominal pain, Denies belching and Denies cramping *Musculoskeletal Musculoskeletal: Reports back pain, Reports myalgias and Reports other (No small joint swelling or Pain) *Neurologic Neurologic: Reports system reviewed and no additional complaints, except as documented Psychiatric Psychiatric: Denies homicidal ideation and Denies suicidal ideation Endocrine Endocrine: Reports fatigue and Denies heat intolerance Hematologic/Lymphatic Hematologic/Lymphatic: Denies easy bleeding and Denies lymphadenopathy Allergic/Immunologic Allergic/Immunologic: Denies itchy eyes, Denies lip swelling, Denies throat swelling and Reports wheezing Pulmonology Exam Inpatient Vital signs and Labs for Last 24 Hours: Temp Pulse Resp BP Pulse Ox O2 Del Method O2 Flow Rate 98.6 F 111 H 21 119/72 97 Room Air 2 09/18/25 12:00 09/18/25 14:00 09/18/25 10:01 09/18/25 10:01 09/18/25 14:00 09/18/25 14:00 09/18/25 11:00 Laboratory Results - last 24 hr 09/17/25 22:06: WBC 7.0, RBC 3.30 L, Hgb 9.2 L, Hct 28.9 L, MCV 87.6, MCH 27.9, MCHC 31.8, RDW 14.6, Plt Count 370, MPV 8.8, Neut % (Auto) 71.4, Lymph % (Auto) 15.3, [place] % (Auto) 11.0 H, Eos % (Auto) 1.6, Baso % (Auto) 0.4, Neut # (Auto) 5.0, Lymph # (Auto) 1.1, [place] # (Auto) 0.8, Eos # (Auto) 0.1, Baso # (Auto) 0.0, PT 11.8, INR 1.07, D-Dimer 1.06 H, VBG pH 7.33, VBG pCO2 60.7 H, VBG pO2 57.1 H, VBG HCO3 31.3 H, VBG Total CO2 33.1 H, VBG O2 Saturation 86.5 H, VBG Base Excess 5.4 H, VBG Lactic Acid 1.0, Sodium 134 L, Potassium 3.7, Chloride 94 L, Carbon Dioxide 31 H, Anion Gap 12.7, BUN 10, Creatinine 0.70, Estimated Creat Clear 53, Estimated GFR 112, Est GFR ( Amer) 136, Glucose 126 H, Lactate 0.6 L, Calcium 6.7 L, Total Bilirubin 0.2, AST 27, ALT 12, Alkaline Phosphatase 87, Troponin I < 0.01, NT-Pro-B Natriuret Pep 477 H, Total Protein 7.4, Albumin 4.0, Globulin 3.4 H, Albumin/Globulin Ratio 1.2 09/18/25 00:12: Chlamy pneumoniae PCR Not detected, Adenovirus (PCR) Not detected, B. pertussis DNA (PCR) Not detected, Coronavirus OC43 (PCR) Not detected, Coronavirus HKU1 (PCR) Not detected, Coronavirus 229E (PCR) Not detected, SARS-CoV-2 (PCR) Not detected, Coronavirus NL63 (PCR) Not detected, Human Metapneumovir PCR Not detected, Influenza A (H1) PCR Not detected, Influ A (H1N1/09) PCR Not detected, Influenza A (H3) PCR Not detected, Influenza Type A (PCR) Not detected, Influenza Type B (PCR) Not detected, M. pneumoniae (PCR) Not detected, Parainfluenza 1 (PCR) Not detected, Parainfluenza 2 (PCR) Not detected, Parainfluenza 3 (PCR) Not detected, Parainfluenza 4 (PCR) Not detected, RSV (PCR) Not detected, Entero/Rhino (PCR) Not detected 09/18/25 03:00: Troponin I < 0.01 09/18/25 11:30: WBC 4.7 L D, RBC 3.23 L, Hgb 9.0 L, Hct 28.3 L, MCV 87.6, MCH 27.9, MCHC 31.8, RDW 14.9, Plt Count 347, MPV 8.9, Neut % (Auto) 85.2 H, Lymph % (Auto) 8.4 L, [place] % (Auto) 6.2, Eos % (Auto) 0.0 L, Baso % (Auto) 0.0 L, Neut # (Auto) 4.0, Lymph # (Auto) 0.4 L, [place] # (Auto) 0.3, Eos # (Auto) 0.0, Baso # (Auto) 0.0, Total Counted 100, Neutrophils % (Manual) 89 H, Lymphocytes % (Manual) 5 L, Atypical Lymphs % 1.0, Monocytes % (Manual) 5, Platelet Estimate Normal, RBC Morphology Normal, Sodium 133 L, Potassium 4.0, Chloride 91 L, Carbon Dioxide 33 H, Anion Gap 13.0, BUN 11, Creatinine 0.70, Estimated Creat Clear 52, Estimated GFR 112, Est GFR ( Amer) 136, Glucose 147 H, Calcium 7.9 L, Total Bilirubin 0.3, AST 28, ALT 21 D, Alkaline Phosphatase 74, Troponin I < 0.01, Total Protein 7.6, Albumin 4.3, Globulin 3.3 H, Albumin/Globulin Ratio 1.3 I & O for Labs for Last 24 Hours: Intake & Output 09/15/25 09/16/25 09/17/25 09/18/25 23:59 23:59 23:59 23:59 Intake Total 670 / 670 Output Total 925 / 925 Balance -255 / -255 Weight 116 lb 115 lb 8.003 oz Microbiology Reports for the Last 24 Hours: Microbiology 09/18/25 00:12 Sputum - Expectorated Sputum Gram Stain - Final Constitutional: Present moderate distress Head: Present normocephalic and atraumatic ENT: Present normal exam, normal oropharynx and mucous membranes moist Neck: Present normal inspection and full ROM Respiratory: Present respiratory distress, rhonchi, diminished air movement and able to speak in complete sentences; Absent wheezes Cardiac: Present S1/S2, Tachycardia and radial pulses present GI: Present soft and distention; Absent tenderness or guarding Skin: Present intact; Absent cyanosis or jaundice Neuro: Present alert, awake and oriented x 3 Extremities: Present normal inspection; Absent clubbing or cyanosis Psychiatric: Present normal affect and cooperative Meds Home Medications and Allergies Home Medications ?Medication ?Instructions ?Recorded ?Confirmed ?Type trazodone 150 mg tablet 150 mg PO HS 07/03/22 09/18/25 History aspirin 325 mg tablet 325 mg PO DAILY 05/11/23 09/18/25 History propranolol 20 mg tablet 20 mg PO BID 08/23/24 09/18/25 History calcium carbonate (Calcium 500) 1,000 mg (2 x 500 mg calcium 10/01/24 09/18/25 Rx (1,250 mg)) PO DAILY #10 tabs ferrous sulfate 325 mg (65 mg 325 mg PO DAILY #90 tabs 11/29/24 09/18/25 Rx iron) tablet albuterol sulfate 90 mcg/actuation 2 inh inhalation QID PRN shortness 07/11/25 09/18/25 Rx aerosol inhaler of breath or wheezing 90 days #8.5 grams azelastine 137 mcg (0.1 %) nasal 1 spray intranasal Q6HP PRN 08/11/25 09/18/25 History spray allergy symptoms budesonide 160 mcg-glycopyr 9 2 inh inhalation BID 90 days #10.7 08/21/25 09/18/25 Rx mcg-formot 4.8 mcg/actuation HFA grams inhaler (Breztri Aerosphere) ipratropium 0.5 mg-albuterol 3 mg 3 ml inhalation QIDP PRN Shortness 08/21/25 09/18/25 Rx (2.5 mg base)/3 mL nebulization Of Breath Or Wheezing 90 days #180 soln mL New Prescriptions to Start Prescriptions: Allergies Allergy/AdvReac Type Severity Reaction Status Date / Time silver (From [employer] Allergy Severe Rash Verified 09/12/25 09:56 Mesh) doxycycline Allergy Mild GI upset Verified 09/12/25 09:56 Penicillins (PENICILLINS) Allergy Mild Unknown Verified 09/12/25 09:56 allergy reaction amitriptyline AdvReac Intermediate gi upset Verified 09/12/25 09:56 adhesive AdvReac Rash Verified 09/12/25 09:56 hydrocodone AdvReac gi upset Verified 09/12/25 09:56 Results Laboratory Findings 09/18/25 11:30 09/18/25 11:30 PT/INR, D-dimer PT 11.8 seconds (10.1-12.5) 09/17/25 22:06 INR 1.07 (0.9-1.1) 09/17/25 22:06 D-Dimer 1.06 ug/mL (0.0-0.5) H 09/17/25 22:06 Abnormal lab findings: Abnormal Labs 09/17/25 09/18/25 22:06 11:30 WBC 4.7 L D RBC 3.30 L 3.23 L Hgb 9.2 L 9.0 L Hct 28.9 L 28.3 L Neut % (Auto) 85.2 H Lymph % (Auto) 8.4 L [place] % (Auto) 11.0 H Eos % (Auto) 0.0 L Baso % (Auto) 0.0 L Lymph # (Auto) 0.4 L Neutrophils % (Manual) 89 H Lymphocytes % (Manual) 5 L D-Dimer 1.06 H VBG pCO2 60.7 H VBG pO2 57.1 H VBG HCO3 31.3 H VBG Total CO2 33.1 H VBG O2 Saturation 86.5 H VBG Base Excess 5.4 H Sodium 134 L 133 L Chloride 94 L 91 L Carbon Dioxide 31 H 33 H Glucose 126 H 147 H Lactate 0.6 L Calcium 6.7 L 7.9 L NT-Pro-B Natriuret Pep 477 H Globulin 3.4 H 3.3 H Assessment and Plan *Assessment and plan (1) Cavitary lesion of lung: Status: Acute Category: Medical Code(s): J98.4 - Other disorders of lung (2) On home oxygen therapy: Status: Chronic Category: Medical Code(s): Z99.81 - Dependence on supplemental oxygen (3) Acute exacerbation of chronic obstructive pulmonary disease: Status: Acute Category: Medical Code(s): J44.1 - Chronic obstructive pulmonary disease with (acute) exacerbation (4) Acute on chronic respiratory failure with hypoxia and hypercapnia: Status: Acute Category: Medical Code(s): J96.21 - Acute and chronic respiratory failure with hypoxia; J96.22 - Acute and chronic respiratory failure with hypercapnia Plan Mr. Simmons is a 70-year-old male greater than 30 PPD COPD chronic hypoxic respiratory failure small cell lung cancer presented to the worsening respiratory distress and pulmonary was called for further evaluation and management. Afebrile. Hemodynamically stable. Leukopenia. COVID-19 and flu PCR panel negative. CT PE protocol upon admission no pulmonary embolism. Previous noted upper lobe Region appropriately stable with increasing solid component, overall improving. Significant improvement in respiratory ventilation therapies, on room air saturating 95% this morning with no significant wheezing. Plan: No need for antibiotics from pulmonary standpoint DuoNebs every 6 hours along with Pulmicort every 12 scheduled. Prednisone 40 mg daily to complete a total of 5-day course Continue oxygen supplementation to maintain O2 saturation goal of 90% and above, patient currently at his baseline oxygen supplementation. For the concerning hypercarbic respiratory failure will follow with ABG and further eval and need for noninvasive ventilator therapy upon discharge. However patient reluctant at this point of time will continue discussions.
[2025-09-18 15:56] LABS: ABG HCO3 29.6 mmhg (22.0-26.0); ABG PCO2 45.7 mmhg (35.0-45.0); ABG PH 7.43 mmol/L (7.35-7.45); ABG PO2 72.3 mmhg (80-100); ABG TCO2 31.0 mmhg (23-27)
[2025-09-18 15:58] LABS: Source Right Radial
--- NOTE | 2025-09-18 16:40 | PC.NURSE ---
Patient complains of shortness of breath. Patient oxygen saturation of 95% on RA. notified. New orders received. Refer to MAR. Continuation of care plan.
--- NOTE | 2025-09-18 21:16 | PC.NURSE ---
Patient transfered to Medsurg unit to ICU unit via wheelchair by BAHMAN @20:32
[2025-09-18] MEDS: LEVOFLOXACIN/D5W 500 MG/100 ML PIGGYBACK 100 MG IV (21:25)
[2025-09-19] VITALS: BP 130/70; PULSE 101; RESP 18; TEMP 36.8; O2SAT 95
--- NOTE | 2025-09-19 03:53 | PC.NURSE ---
Alert and oriented. No complaints this shift. 2L NC. Independent in room. Lung sounds diminished. Call light in reach.
[2025-09-19 04:00] VITALS: BP 119/74; PULSE 100; RESP 16; TEMP 36.7; O2SAT 100; BMI 16.5
[2025-09-19] MEDS: NICOTINE 21MG/24HR PATCH 21 MG TD (04:47)
[2025-09-19 06:50] VITALS: PULSE 92; PULSE 97; O2SAT 99
[2025-09-19] MEDS: BUDESONIDE 0.5MG/2ML NEB 0.5 MG IH (06:50)
[2025-09-19] MEDS: IPRATROPIUM BROMIDE 0.5 MG/2.5ML SOLUTION IH ×2 (06:51→11:04)
[2025-09-19] MEDS: LEVALBUTEROL 1.25MG/3ML NEB 1.25 MG IH ×2 (06:51→11:04)
[2025-09-19 08:00] VITALS: BP 129/71; PULSE 110; RESP 22; TEMP 36.4; O2SAT 99
--- NOTE | 2025-09-19 10:48 | EXP.DC.SUM ---
General Admission date:: 09/18/25 Discharge date: 09/19/25 HPI HPI HPI: 70-year-old male patient with history of right small cell lung cancer previously undergone treatment with Opdivo has been off of that for 6 months. He wears 3 L nasal cannula oxygen at home. Presents to ER with complaints of increasing shortness of breath over the last 2 to 3 days. He does have a cough that is productive he does not know the color. Denies fever or chills. He states he has intermittent chest pain described as heavy lasting only a few minutes. He has had this for 4 to 5 years. Upon presentation to the ER he was found to be tachypneic with O2 sat in the 80s. He received DuoNeb treatments, steroids, Levaquin and magnesium. He did improve some. Upon arrival to the ICU his O2 sat on 3 L nasal cannula is 96%. Hospital Course Hospital Course Hospital Course: 70-year-old male with history of lung cancer, severe COPD, presents with worsening shortness over the past 2-3 days. Found to be in COPD exacerbation. Pulmonology consulted to assist with care. Treating with steroids. Return to baseline oxygen. Overall showing improvement. Stable discharge home with further management as an outpatient. Problems addressed as follows: Acute on chronic hypoxic respiratory failure with hypercapnia due to COPD exacerbation Metastatic small cell lung cancer Cavitary lung lesion of right upper lobe -Presentation with white count normal at 7. Hemoglobin at baseline of 9.2. Kidney function and electrolytes stable.. Normally on 2 to 3 L oxygen at home at baseline. Able to wean 2 L by day of discharge. Initially on DuoNebs scheduled every 6 hours with improvement in his wheeze and dyspnea. Also treated with Pulmicort twice daily and prednisone 40 mg daily. Complete 5 days total of prednisone. No indication for antibiotics at this time from pulmonary standpoint. CT PE protocol obtained on admission with no pulmonary emboli. Previously noted upper lobe region approximately stable with increasing solid component. Overall improving. Negative for COVID and flu. Continue supplemental oxygen for goal sats greater than 90%. Follow-up with pulmonology as an outpatient. Pulmonology discussed noninvasive positive pressure ventilation. Patient reluctant at this time to consider. Will continue to have discussions as an outpatient. Tobacco use disorder: Counseled on need to stop smoking. Seriously complicates patient's respiratory disease. Nicotine patch as needed daily during admission. 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 Protein supplementation with meals Continue tamsulosin 0.4 mg nightly for BPH Continue trazodone 100 mg nightly for sleep disorder Continue propranolol 20 mg twice daily for tachycardia/hypertension Total time spent on discharge 32 minutes in counseling, documentation, chart review, and direct care with patient. Exam Data for Last 24 hours Vital signs and Labs for Last 24 Hours: Temp Pulse Resp BP Pulse Ox O2 Del Method O2 Flow Rate 97.6 F 110 H 22 129/71 99 Nasal Cannula 2 09/19/25 08:00 09/19/25 08:00 09/19/25 08:00 09/19/25 08:00 09/19/25 08:00 09/19/25 10:09 09/19/25 10:09 Laboratory Results - last 24 hr 09/18/25 11:30: WBC 4.7 L D, RBC 3.23 L, Hgb 9.0 L, Hct 28.3 L, MCV 87.6, MCH 27.9, MCHC 31.8, RDW 14.9, Plt Count 347, MPV 8.9, Neut % (Auto) 85.2 H, Lymph % (Auto) 8.4 L, [place] % (Auto) 6.2, Eos % (Auto) 0.0 L, Baso % (Auto) 0.0 L, Neut # (Auto) 4.0, Lymph # (Auto) 0.4 L, [place] # (Auto) 0.3, Eos # (Auto) 0.0, Baso # (Auto) 0.0, Total Counted 100, Neutrophils % (Manual) 89 H, Lymphocytes % (Manual) 5 L, Atypical Lymphs % 1.0, Monocytes % (Manual) 5, Platelet Estimate Normal, RBC Morphology Normal, Sodium 133 L, Potassium 4.0, Chloride 91 L, Carbon Dioxide 33 H, Anion Gap 13.0, BUN 11, Creatinine 0.70, Estimated Creat Clear 52, Estimated GFR 112, Est GFR ( Amer) 136, Glucose 147 H, Calcium 7.9 L, Total Bilirubin 0.3, AST 28, ALT 21 D, Alkaline Phosphatase 74, Troponin I < 0.01, Total Protein 7.6, Albumin 4.3, Globulin 3.3 H, Albumin/Globulin Ratio 1.3 09/18/25 15:50: Specimen Source Right radial, O2 % Room air, ABG pH 7.43, ABG pCO2 45.7 H, ABG pO2 72.3 L, ABG HCO3 29.6 H, ABG Total CO2 31.0 H, ABG O2 Saturation 94, ABG Base Excess 5.3 H, Wenceslao Test Acceptable I & O for Last 24 hours: Intake & Output 09/16/25 09/17/25 09/18/25 09/19/25 23:59 23:59 23:59 23:59 Intake Total 1709 575 / 575 Output Total 925 / 925 0 / 0 Balance 785 / 1085 575 / 575 Weight 52.617 kg 52.39 kg 52.299 kg Microbiology Reports for the Last 24 Hours: Microbiology 09/18/25 00:12 Sputum - Expectorated Sputum Gram Stain - Final 09/18/25 00:12 Sputum - Expectorated Sputum Sputum Culture - Preliminary Constitutional Constitutional: mild distress (baseline), cachectic, chronically ill appearing and cooperative *Routine HEENT Exam Head: Present normocephalic Eye: Present EOMI and PERRL ENT: Present mucous membranes moist *Routine Neck Exam Neck: Present supple; Absent lymphadenopathy Routine Chest/Breast/Axilla Exam Comments: Barrel chested *Routine Respiratory Exam Respiratory: Present prolonged expiratory phase, wheezes and diminished air movement; Absent rhonchi or crackles Comments: Intermittent pursed lips exhalation *Routine Cardiovascular Exam Cardiovascular: Present RRR *Routine Abdominal Exam Abdominal: Present soft and normoactive bowel sounds; Absent tenderness *Routine Rectal Exam Patient deferred: visual exam *Routine Exam Patient deferred: penile exam *Routine Extremities Exam Extremities: Absent cyanosis, clubbing or edema Comments: Sarcopenia, thin *Routine Skin Exam Skin: Present intact, pallor and warm; Absent rash *Routine Neurological Exam Neurological: Present alert, oriented X3 and moving all extremities; Absent sensory deficit (Light touch and pinprick present in feet bilaterally on exam) or altered mental status Results Data Completed and Pending Labs on day of discharge: Labs from last 24 hours 09/18/25 09/18/25 15:50 11:30 WBC 4.7 L D RBC 3.23 L Hgb 9.0 L Hct 28.3 L MCV 87.6 MCH 27.9 MCHC 31.8 RDW 14.9 Plt Count 347 MPV 8.9 Neut % (Auto) 85.2 H Lymph % (Auto) 8.4 L [place] % (Auto) 6.2 Eos % (Auto) 0.0 L Baso % (Auto) 0.0 L Neut # (Auto) 4.0 Lymph # (Auto) 0.4 L [place] # (Auto) 0.3 Eos # (Auto) 0.0 Baso # (Auto) 0.0 Total Counted 100 Neutrophils % (Manual) 89 H Lymphocytes % (Manual) 5 L Atypical Lymphs % 1.0 Monocytes % (Manual) 5 Platelet Estimate Normal RBC Morphology Normal Specimen Source Right radial O2 % Room air ABG pH 7.43 ABG pCO2 45.7 H ABG pO2 72.3 L ABG HCO3 29.6 H ABG Total CO2 31.0 H ABG O2 Saturation 94 ABG Base Excess 5.3 H Wenceslao Test Acceptable Sodium 133 L Potassium 4.0 Chloride 91 L Carbon Dioxide 33 H Anion Gap 13.0 BUN 11 Creatinine 0.70 Estimated Creat Clear 52 Estimated GFR 112 Est GFR ( Amer) 136 Glucose 147 H Calcium 7.9 L Total Bilirubin 0.3 AST 28 ALT 21 D Alkaline Phosphatase 74 Troponin I < 0.01 Total Protein 7.6 Albumin 4.3 Globulin 3.3 H Albumin/Globulin Ratio 1.3 Preliminary micro results at discharge 09/18/25 00:12 Sputum Culture - Preliminary Sputum - Expectorated Sputum DS: Diagnosis Discharge Diagnosis (1) Cavitary lesion of lung: Status: Acute Code(s): J98.4 - Other disorders of lung (2) On home oxygen therapy: Status: Chronic Code(s): Z99.81 - Dependence on supplemental oxygen (3) Acute exacerbation of chronic obstructive pulmonary disease: Status: Acute Code(s): J44.1 - Chronic obstructive pulmonary disease with (acute) exacerbation (4) Acute on chronic respiratory failure with hypoxia and hypercapnia: Status: Acute Code(s): J96.21 - Acute and chronic respiratory failure with hypoxia; J96.22 - Acute and chronic respiratory failure with hypercapnia (5) Severe protein-calorie malnutrition: Status: Acute Code(s): E43 - Unspecified severe protein-calorie malnutrition (6) Pulmonary cachexia due to COPD: Status: Acute Code(s): R64 - Cachexia; J44.9 - Chronic obstructive pulmonary disease, unspecified (7) Small cell lung cancer: Status: Chronic Code(s): C34.90 - Malignant neoplasm of unspecified part of unspecified bronchus or lung Qualifiers: Laterality: right Lung location: unspecified part of lung Qualified Code(s): C34.91 - Malignant neoplasm of unspecified part of right bronchus or lung (8) Essential hypertension: Status: Chronic Code(s): I10 - Essential (primary) hypertension Meds Home Medications and Allergies Home Medications ?Medication ?Instructions ?Recorded ?Confirmed ?Type trazodone 150 mg tablet 150 mg PO HS 07/03/22 09/18/25 History aspirin 325 mg tablet 325 mg PO DAILY 05/11/23 09/18/25 History propranolol 20 mg tablet 20 mg PO BID 08/23/24 09/18/25 History calcium carbonate (Calcium 500) 1,000 mg (2 x 500 mg calcium 10/01/24 09/18/25 Rx (1,250 mg)) PO DAILY #10 tabs ferrous sulfate 325 mg (65 mg 325 mg PO DAILY #90 tabs 11/29/24 09/18/25 Rx iron) tablet albuterol sulfate 90 mcg/actuation 2 inh inhalation QID PRN shortness 07/11/25 09/18/25 Rx aerosol inhaler of breath or wheezing 90 days #8.5 grams azelastine 137 mcg (0.1 %) nasal 1 spray intranasal Q6HP PRN 08/11/25 09/18/25 History spray allergy symptoms budesonide 160 mcg-glycopyr 9 2 inh inhalation BID 90 days #10.7 08/21/25 09/18/25 Rx mcg-formot 4.8 mcg/actuation HFA grams inhaler (Breztri Aerosphere) ipratropium 0.5 mg-albuterol 3 mg 3 ml inhalation QIDP PRN Shortness 08/21/25 09/18/25 Rx (2.5 mg base)/3 mL nebulization Of Breath Or Wheezing 90 days #180 soln mL prednisone 20 mg tablet 40 mg (2 x 20 mg) PO DAILY 4 days 09/19/25 Rx #8 tabs New Prescriptions to Start Prescriptions: prednisone Nicloas Tomas Allergies Allergy/AdvReac Type Severity Reaction Status Date / Time silver (From [employer] - [employer]! Allergy Severe Rash Verified 09/12/25 09:56 Mesh) doxycycline Allergy Mild GI upset Verified 09/12/25 09:56 Penicillins (PENICILLINS) Allergy Mild Unknown Verified 09/12/25 09:56 allergy reaction amitriptyline AdvReac Intermediate gi upset Verified 09/12/25 09:56 adhesive AdvReac Rash Verified 09/12/25 09:56 hydrocodone AdvReac gi upset Verified 09/12/25 09:56 Discharge Plan Disposition Patient Disposition: Home, Self-Care Condition: Fair Follow up Plan Follow up with: Napoleon Webber MD [Physician, Pulmonology] - 10/23/25 1:00 pm Main Carrington MD [Primary Care Provider, Internal Medicine] - 09/25/25 10:45 am Prescriptions/Medication Reconciliation: New prednisone 20 mg Tablet 40 mg PO DAILY 4 Days Qty: 8 0RF Continued trazodone 150 mg tablet 150 mg PO HS propranolol 20 mg tablet 20 mg PO BID ferrous sulfate 325 mg (65 mg iron) tablet 325 mg PO DAILY Qty: 90 3RF albuterol sulfate 90 mcg/actuation HFA aerosol inhaler 2 inh IH QID PRN (Reason: shortness of breath or wheezing) 90 Days Qty: 8.5 2RF ipratropium-albuterol 0.5 mg-3 mg(2.5 mg base)/3 mL solution for nebulization 3 ml INHALATION QIDP PRN (Reason: Shortness Of Breath Or Wheezing) 90 Days Qty: 180 3RF Breztri Aerosphere 160-9-4.8 mcg/actuation HFA aerosol inhaler 2 inh inhalation BID 90 Days Qty: 10.7 3RF calcium carbonate [Calcium 500] 500 mg calcium (1,250 mg) tablet,chewable 1,000 mg PO DAILY Qty: 10 0RF azelastine 137 mcg (0.1 %) spray,non-aerosol 1 spray intranasal Q6HP PRN (Reason: allergy symptoms) Rx Instructions: administer into each nostril aspirin 325 mg Tablet 325 mg PO DAILY Problem Reconciliation Problems Reviewed?: Yes Patient Discharge Instructions ACTIVITY: Continue current activity DIET: continue same diet Patient Instructions: DI for Respiratory Failure, Stop Light COPD Print Language: Kazakh Providers Primary Care Provider: Main Carrington Admit Provider: Joshua Cannon Attending Provider: Joshua Cannon
[2025-09-19 11:04] VITALS: PULSE 89; PULSE 92
[2025-09-19 12:00] VITALS: BP 153/87; PULSE 70; RESP 24; TEMP 36.6; O2SAT 98
--- NOTE | 2025-09-19 12:40 | PC.NURSE ---
Port flushed and removed.
--- NOTE | 2025-09-19 12:40 | EXP.PULM.PN ---
Subjective *Date: 09/19/25 *Time: 12:40 Interval history: No acute respiratory vents overnight Pulmonology Exam Inpatient Vital signs and Labs for Last 24 Hours: Temp Pulse Resp BP Pulse Ox O2 Del Method O2 Flow Rate 97.6 F 92 H 22 129/71 99 Nasal Cannula 2 09/19/25 08:00 09/19/25 11:04 09/19/25 08:00 09/19/25 08:00 09/19/25 08:00 09/19/25 10:09 09/19/25 10:09 Laboratory Results - last 24 hr 09/18/25 11:30: Total Counted 100, Neutrophils % (Manual) 89 H, Lymphocytes % (Manual) 5 L, Atypical Lymphs % 1.0, Monocytes % (Manual) 5, Platelet Estimate Normal, RBC Morphology Normal 09/18/25 15:50: Specimen Source Right radial, O2 % Room air, ABG pH 7.43, ABG pCO2 45.7 H, ABG pO2 72.3 L, ABG HCO3 29.6 H, ABG Total CO2 31.0 H, ABG O2 Saturation 94, ABG Base Excess 5.3 H, Wenceslao Test Acceptable Temp Pulse Resp BP Pulse Ox O2 Del Method O2 Flow Rate 98.6 F 111 H 21 119/72 97 Room Air 2 09/18/25 12:00 09/18/25 14:00 09/18/25 10:01 09/18/25 10:01 09/18/25 14:00 09/18/25 14:00 09/18/25 11:00 Laboratory Results - last 24 hr 09/17/25 22:06: WBC 7.0, RBC 3.30 L, Hgb 9.2 L, Hct 28.9 L, MCV 87.6, MCH 27.9, MCHC 31.8, RDW 14.6, Plt Count 370, MPV 8.8, Neut % (Auto) 71.4, Lymph % (Auto) 15.3, [place] % (Auto) 11.0 H, Eos % (Auto) 1.6, Baso % (Auto) 0.4, Neut # (Auto) 5.0, Lymph # (Auto) 1.1, [place] # (Auto) 0.8, Eos # (Auto) 0.1, Baso # (Auto) 0.0, PT 11.8, INR 1.07, D-Dimer 1.06 H, VBG pH 7.33, VBG pCO2 60.7 H, VBG pO2 57.1 H, VBG HCO3 31.3 H, VBG Total CO2 33.1 H, VBG O2 Saturation 86.5 H, VBG Base Excess 5.4 H, VBG Lactic Acid 1.0, Sodium 134 L, Potassium 3.7, Chloride 94 L, Carbon Dioxide 31 H, Anion Gap 12.7, BUN 10, Creatinine 0.70, Estimated Creat Clear 53, Estimated GFR 112, Est GFR ( Amer) 136, Glucose 126 H, Lactate 0.6 L, Calcium 6.7 L, Total Bilirubin 0.2, AST 27, ALT 12, Alkaline Phosphatase 87, Troponin I < 0.01, NT-Pro-B Natriuret Pep 477 H, Total Protein 7.4, Albumin 4.0, Globulin 3.4 H, Albumin/Globulin Ratio 1.2 09/18/25 00:12: Chlamy pneumoniae PCR Not detected, Adenovirus (PCR) Not detected, B. pertussis DNA (PCR) Not detected, Coronavirus OC43 (PCR) Not detected, Coronavirus HKU1 (PCR) Not detected, Coronavirus 229E (PCR) Not detected, SARS-CoV-2 (PCR) Not detected, Coronavirus NL63 (PCR) Not detected, Human Metapneumovir PCR Not detected, Influenza A (H1) PCR Not detected, Influ A (H1N1/09) PCR Not detected, Influenza A (H3) PCR Not detected, Influenza Type A (PCR) Not detected, Influenza Type B (PCR) Not detected, M. pneumoniae (PCR) Not detected, Parainfluenza 1 (PCR) Not detected, Parainfluenza 2 (PCR) Not detected, Parainfluenza 3 (PCR) Not detected, Parainfluenza 4 (PCR) Not detected, RSV (PCR) Not detected, Entero/Rhino (PCR) Not detected 09/18/25 03:00: Troponin I < 0.01 09/18/25 11:30: WBC 4.7 L D, RBC 3.23 L, Hgb 9.0 L, Hct 28.3 L, MCV 87.6, MCH 27.9, MCHC 31.8, RDW 14.9, Plt Count 347, MPV 8.9, Neut % (Auto) 85.2 H, Lymph % (Auto) 8.4 L, [place] % (Auto) 6.2, Eos % (Auto) 0.0 L, Baso % (Auto) 0.0 L, Neut # (Auto) 4.0, Lymph # (Auto) 0.4 L, [place] # (Auto) 0.3, Eos # (Auto) 0.0, Baso # (Auto) 0.0, Total Counted 100, Neutrophils % (Manual) 89 H, Lymphocytes % (Manual) 5 L, Atypical Lymphs % 1.0, Monocytes % (Manual) 5, Platelet Estimate Normal, RBC Morphology Normal, Sodium 133 L, Potassium 4.0, Chloride 91 L, Carbon Dioxide 33 H, Anion Gap 13.0, BUN 11, Creatinine 0.70, Estimated Creat Clear 52, Estimated GFR 112, Est GFR ( Amer) 136, Glucose 147 H, Calcium 7.9 L, Total Bilirubin 0.3, AST 28, ALT 21 D, Alkaline Phosphatase 74, Troponin I < 0.01, Total Protein 7.6, Albumin 4.3, Globulin 3.3 H, Albumin/Globulin Ratio 1.3 I & O for Labs for Last 24 Hours: Intake & Output 09/16/25 09/17/25 09/18/25 09/19/25 23:59 23:59 23:59 23:59 Intake Total 1709 575 / 575 Output Total 925 / 925 0 / 0 Balance 785 / 1085 575 / 575 Weight 116 lb 115 lb 8 oz 115 lb 4.8 oz Intake & Output 09/15/25 09/16/25 09/17/25 09/18/25 23:59 23:59 23:59 23:59 Intake Total 670 / 670 Output Total 925 / 925 Balance -255 / -255 Weight 116 lb 115 lb 8.003 oz Microbiology Reports for the Last 24 Hours: Microbiology 09/18/25 00:12 Sputum - Expectorated Sputum Gram Stain - Final 09/18/25 00:12 Sputum - Expectorated Sputum Sputum Culture - Preliminary Microbiology 09/18/25 00:12 Sputum - Expectorated Sputum Gram Stain - Final Constitutional: Present moderate distress Head: Present normocephalic and atraumatic ENT: Present normal exam, normal oropharynx and mucous membranes moist Neck: Present normal inspection and full ROM Respiratory: Present respiratory distress, rhonchi, diminished air movement and able to speak in complete sentences; Absent wheezes Cardiac: Present S1/S2, Tachycardia and radial pulses present GI: Present soft and distention; Absent tenderness or guarding Skin: Present intact; Absent cyanosis or jaundice Neuro: Present alert, awake and oriented x 3 Extremities: Present normal inspection; Absent clubbing or cyanosis Psychiatric: Present normal affect and cooperative Assessment and Plan *Assessment and plan (1) Cavitary lesion of lung: Status: Acute Category: Medical Code(s): J98.4 - Other disorders of lung (2) On home oxygen therapy: Status: Chronic Category: Medical Code(s): Z99.81 - Dependence on supplemental oxygen (3) Acute exacerbation of chronic obstructive pulmonary disease: Status: Acute Category: Medical Code(s): J44.1 - Chronic obstructive pulmonary disease with (acute) exacerbation (4) Acute on chronic respiratory failure with hypoxia and hypercapnia: Status: Acute Category: Medical Code(s): J96.21 - Acute and chronic respiratory failure with hypoxia; J96.22 - Acute and chronic respiratory failure with hypercapnia Plan Mr. Simmons is a 70-year-old male greater than 30 PPD COPD chronic hypoxic respiratory failure small cell lung cancer presented to the worsening respiratory distress and pulmonary was called for further evaluation and management. Afebrile. Hemodynamically stable. Leukopenia. COVID-19 and flu PCR panel negative. CT PE protocol upon admission no pulmonary embolism. Previous noted upper lobe Region appropriately stable with increasing solid component, overall improving. Significant improvement in respiratory ventilation therapies, on room air saturating 95% this morning with no significant wheezing. Interval update No acute respiratory vents overnight. Chest clear to auscultate. Intermittent needing oxygen supplementation, saturating 98% on 2 L, advised to wean to maintain O2 saturation goal of 90 to 95% Repeat ABG did not show any evidence of hypercarbic respiratory failure. Plan: No need for antibiotics from pulmonary standpoint DuoNebs every 6 hours along with Pulmicort every 12 scheduled. Prednisone 40 mg daily to complete a total of 5-day course Continue oxygen supplementation to maintain O2 saturation goal of 90% and above, patient currently at his baseline oxygen supplementation. # Thank you for involving pulmonary in patient care will follow patient in pulmonary clinic 5 to 10 days postdischarge. #The previous scheduled outpatient CT scan will be rescheduled for further date Given his CT scan from this admission showed improving right upper lobe cavitary and nodular opacity
--- NOTE | 2025-09-20 10:05 | SW/DCPLANNER ---
Spoke with patient on the phone. Patient stated that he is doing good. Patient stated that he is aware of his upcoming appointments. Patient stated that his new medicine was brought to his room. Patient stated that he has no concerns or questions at this time. Colin Wells
== END 2025-09-19 12:49 | disposition home or self-care (01) ==
LOC: ER 21:37 → 2ND 09-18 00:20 → ICU 09-18 00:38 → 2ND 09-18 20:09
PROVIDERS: Emergency Medicine; Internal Medicine Pulmonary Disease; Nurse Practitioner Acute Care; Admitting Provider Student in an Organized Health Care Education/Training Program; Emergency Provider Emergency Medicine; PCP Internal Medicine Adolescent Medicine; Visit Provider Student in an Organized Health Care Education/Training Program
DX: J44.1 Chronic obstructive pulmonary disease with (acute) exacerbation (principal); J96.21 Acute and chronic respiratory failure with hypoxia; J96.22 Acute and chronic respiratory failure with hypercapnia; C34.11 Malignant neoplasm of upper lobe, right bronchus or lung; C77.1 Secondary and unspecified malignant neoplasm of intrathoracic lymph nodes; J98.4 Other disorders of lung; I10 Essential (primary) hypertension; E43 Unspecified severe protein-calorie malnutrition; R64 Cachexia; R00.0 Tachycardia, unspecified; N40.0 Benign prostatic hyperplasia without lower urinary tract symptoms; G47.9 Sleep disorder, unspecified; F17.210 Nicotine dependence, cigarettes, uncomplicated; E83.51 Hypocalcemia; Z68.1 Body mass index [BMI] 19.9 or less, adult; Z95.828 Presence of other vascular implants and grafts; Z99.81 Dependence on supplemental oxygen; Z92.21 Personal history of antineoplastic chemotherapy; Z92.3 Personal history of irradiation; Z91.09 Other allergy status, other than to drugs and biological substances; Z88.1 Allergy status to other antibiotic agents; Z88.0 Allergy status to penicillin; Z88.8 Allergy status to other drugs, medicaments and biological substances; Z91.048 Other nonmedicinal substance allergy status; Z88.5 Allergy status to narcotic agent; Z79.51 Long term (current) use of inhaled steroids; Z79.899 Other long term (current) drug therapy
CPT/HCPCS: 0223U; 36415; 36600; 71045; 71275; 80053; 82803; 83605; 83880; 84484; 85007; 85025; 85378; 85610; 87070; 87205; 93005; 94640; 96361; 96365; 96366; 96367; 96375; 96376; 99285; G0378; J0612; J1642; J1956; J2919; J3475; J7030; J7614; Q9967

== ENCOUNTER 2025-09-23 12:59 | Emergency (ER) | payer MEDICARE, SELFPAY ==
--- OUTSIDE RECORDS SUMMARY | 2024-11-28 09:00 | XMS_ITS ---
Author Organization [facility] Address [address] [facility] [address] [place] [address] Care Team Providers Care Inspector Rag Sorting Name Role Phone Main Carrington Primary Care Provider Main Carrington Unavailable Unavailable REASON FOR VISIT hospital stay Encounters Encounter Location Date Provider Diagnosis [facility] [address] [place], [place] [address] 11/28/2024 Main Carrington Plan Of Treatment Next Appt Details Provider Name:Main Carrington, 09/25/2025 10:45:00 AM, [address] [facility], [address], [place], [address], Provider Name:Main Carrington, 10/09/2025 10:15:00 AM, [address] [facility], [address], [place], [place], [address], Progress Notes * Alejandro AMDERA SDOB:[birth year] (70 yo M)Acc No.[id number]:11/28/2024 Progress Notes Patient: Alejandro LEUNG Provider: Brit Carrington MD :1955 A ge:69 Y S ex:Male Date:11/28/2024 Address:[address], [place], [id number] Subjective: * Chief Complaints: * 1 . Hospital stay. * Medical History: Objective: * Vitals: Assessment: Plan: * Treatment: * * Electronic signature of Say Carrington MD FAAP on 09/23/2025 at 01:23 PM EST Sign off status: Pending * Provider: Brit Carrington MD Date: 0 11/28/2024 Generated for Phillip smith/Leigha/Caspersmitting on: 11/23/2024 01:23 PM EST
--- OUTSIDE RECORDS SUMMARY | 2025-02-11 16:30 | XMS_ITS ---
Author Organization [facility] PE D [facility] Address [address] [facility] [address] [place] [address] Care Team Providers Care Temporary Administrative Assistant Name Role Phone Main Carrington Primary Care Provider Main Carrington Unavailable Unavailable Migration, Provider Unavailable Unavailable Allergies Allergen (clinical drug ingredient) Drug/Non Drug Allergy documented on EMR Reaction Allergy Type Onset Date Status Penicillin Unknown Drug Allergy Active REASON FOR VISIT Multum To [facility] Conversion Encounter Medications Medication SIG (Take, [...] a nd pick correct strength-formulati on from [facility] options. If intended option is not shown, discontinue and re-order from Quick Search* Active Vitamin D (Ergocalciferol) 1.25 MG (58201 UT) 1 cap(s) orally once a week Active Ipratropium-Albutero l 0.5-2.5 (3) MG/3ML 3 mL by nebulizer 4 times a day Active Trelegy Ellipta 200 MCG-62.5 MCG-25 MCG/INH 1 PUFF(S) INHALED ONCE A DAY *Please review and pick correct strength-formulati on from [employer] options. If intended option is not shown, discontinue and re-order from Quick Search* Active Encounters Encounter Location Date Provider Diagnosis [facility] IM PED MENA 1210 [facility] 36 [facility] [address] [place] [address] 02/11/2025 Provider Migration COPD, group D, by [...] Name:Main Carrington, 09/25/2025 10:45:00 AM, [address] [facility] 36 [facility] [address], [place], [address], Provider Name:Main Carrington, 10/09/2025 10:15:00 AM, [address] [place] [address] [address], [place], [address], Progress Notes * Alejandro MADERA SDOB:[birth year] (70 yo M)Acc No.[id number]:02/11/2025 Patient: Alejandro LEUNG Provider: Michael Fonseca :1955 A ge:69 Y S ex:Male Date:02/11/2025 Address:[address] [place], [place] [address], [place], [id number] Pcp:Main Carrington Subjective: * Chief Complaints: * 1 . [facility] Conversion Encounter. * Medical History: * Medications: T aking Ferrous Sulfate 325 (65 Fe) MG Tablet 1 tab(s) orally once a day , Taking Calcium 500 MG 1 TAB TID , Notes to Pharmacist: *Please review and pick correct strength-formulation from [facility] options. If intended option is not shown, discontinue and re-order from Quick Search*, Taking Vitamin D (Ergocalciferol) 1.25 MG (58454 UT) Capsule 1 cap(s) orally once a week , Taking Ipratropium-Albuterol 0.5-2.5 (3) MG/3ML Solution 3 mL by nebulizer 4 times a day , Taking Trelegy Ellipta 200 MCG-62.5 MCG-25 MCG/INH POWDER 1 PUFF(S) INHALED ONCE A DAY , Notes to Pharmacist: *Please review and pick correct strength-formulation from [employer] options. If intended option is not shown, [...] Electronic signature of Prov ider Migration on 09/23/2025 at 01:25 PM EST Sign off status: Pending * Provider: Michael pal Migration Date: 0 02/11/2025 Generated for Phillip smith/Leigha/Codyitting on: 11/23/2024 01:25 PM EST
--- OUTSIDE RECORDS SUMMARY | 2025-08-01 04:45 | XMS_ITS ---
Author Organization [facility] D [facility] Address [address] [place] [address] Care Team Providers Care Boiler Maker Name Role Phone Main Carrington Primary Care Provider [phone] Main Carrington Unavailable Unavailable Cathie Musa Unavailable [phone] Allergies Allergen (clinical drug ingredient) Drug/Non Drug [...] 08/01/2025 Encounters Encounter Location Date Provider Diagnosis [facility] [address] [place] [address] 08/01/2025 Cathie Musa Acute traumatic pain G89.11 [...] Provider Name:Main Carrington, 09/25/2025 10:45:00 AM, [address] [facility] [address] [facility], [address], [place], [address], Provider Name:Main Carrington, 10/09/2025 10:15:00 AM, [facility] 36 [facility], [address], [place], [address], Progress Notes * Alejandro MADERA SDOB:[birth year] (70 yo M)Acc No.[id number]:08/01/2025 Progress Notes Patient: Alejandro LEUNG Provider: ROBERTO Umaña :1955 A ge:70 Y S ex:Male Date:08/01/2025 Address:[address] [place], [place] [address] Pcp:Main Carrington Subjective: * Chief Complaints: * [...] 08/01/2025 Generated for Phillip smith/Leigha/Henry on: 1 11/23/2024 01:26 PM EST History and Physical Notes * [...]
--- OUTSIDE RECORDS SUMMARY | 2025-08-18 05:45 | XMS_ITS ---
Author Organization [facility] D [facility] Address [address] [facility] [address] [place] [address] Care Team Providers Care Costume Designer Name Role Phone Main Carrington Primary Care Provider Main Carrington Unavailable Unavailable Allergies Allergen (clinical drug ingredient) Drug/Non Drug Allergy documented on EMR Reaction Allergy Type Onset Date Status Penicillin Unknown Drug Allergy Active REASON FOR VISIT Discharged from [facility] on 08/11/2025 Medications Medication SIG (Take, [...] Acute exacerbation of chronic obstructive airways disease (114547690) COPD with exacerbation (J44.1) Active confirmed Vital Signs Temperature 97.7 degrees Fahrenheit 08/18/20 25 Blood pressure systolic 126 mm Hg 08/18/20 25 Blood pressure diastolic 84 mm Hg 025 Heart Rate 80 /min 08/18/2025 Height 5 ft 10 in in 08/18/2025 Weight 114 lbs 08/18/2025 BMI 16.36 kg/m2 08/18/2025 Oximetry 99 08/18/2025 Encounters Encounter Location Date Provider Diagnosis [facility] [address] [place] [address] 08/18/2025 Main Brendason Lobar pneumonia J18. 1 [address], [address], [place], [address], Provider Name:Main Carrington, 10/09/2025 10:15:00 AM, [address], [address], [place], [address], Progress Notes * Alejandro MADERA SDOB:[birth year] (70 yo M)Acc No.[id number]:08/18/2025 HOSP F/U Patient: aMrty LEUNGley S Provider: Brit Carrington MD :1955 A ge:70 Y S ex:Male Date:08/18/2025 Address:[address] [place] [address], [place] Subjective: * Chief Complaints: * 1 . Discharged from [facility] on 08/11/2025. * HPI: I ntrim [...] stic Procedure: H - COPD EXACERBATION 06/10/24-06/12/24, [facility]- COPD , [facility]- COPD 09/2024, [facility]-COPD 11/2024, [facility]-COPD 08/2025. * Family History: F ather: . [...] 1.40 , G0008 ADMINISTRATION-FLU VACCINE MEDICARE ONLY, [address] [facility] MGMT 7 DAY DISCH, Modifiers: 25 , 1111F DSCHR MED/CURENT MED MERGE * Follow Up: p rn,1 Week * * Sign off status: Completed true * Provider: Brit Carrington MD Date: 1 Generated for Phillip smith/Leigha/eTransmitting on: 11/23/2024 01:26 PM EST History and Physical [...]
--- OUTSIDE RECORDS SUMMARY | 2025-08-21 06:30 | XMS_ITS ---
Author Organization [facility] Address [address] [facility] [address] [place] [address] Care Team Providers Care Bay Stocker Name Role Phone Main Carrington Primary Care Provider Main Carrington Unavailable Unavailable REASON FOR VISIT 3 Month F/U Encounters Encounter Location Date Provider Diagnosis [facility] [address] [place] [address] 08/21/2025 Main Carrington Plan Of Treatment Next Appt Details Provider Name:Main Carrington, 09/25/2025 10:45:00 AM, [address] [facility], [address], [place], [place], [address], Provider Name:Main Carrington, 10/09/2025 10:15:00 AM, [address] [facility], [address], [place], [place], [address], Progress Notes * Alejandro MADERA SDOB:[birth year] (70 yo M)Acc No.[id number]:08/21/2025 Progress Notes Patient: Alejandro LEUNG Provider: Brit Carrington MD :1955 A ge:70 Y S ex:Male Date:08/21/2025 Address:[address] [place] [address] [place], [place], [id number] Subjective: * Chief Complaints: * 1 . 3 Month F/U. * Medical History: Objective: * Vitals: Assessment: Plan: * Treatment: * * Electronic signature of Say Carrington MD FAAP on 09/23/2025 at 01:23 PM EST Sign off status: Pending * Provider: Brit Carrington MD Date: Generated for Phillip smith/Leigha/Henry on: 11/23/2024 01:23 PM EST
--- OUTSIDE RECORDS SUMMARY | 2025-08-28 05:15 | XMS_ITS ---
Author Organization [facility] Address [address] [facility] [address] [place] [address] Care Team Providers Care Automatic Screwmaker Name Role Phone Main Carrington Primary Care Provider [phone] Main Carrington Unavailable Unavailable Allergies Allergen (clinical drug ingredient) Drug/Non Drug Allergy documented on EMR Reaction Allergy Type Onset Date Status Penicillin Unknown Drug Allergy Active REASON FOR VISIT 1 week follow up Medications Medication SIG (Take, Route, Frequency, Duration) Notes Start Date End Date Status Ferrous Sulfate 325 (65 Fe) MG 1 [...] 2 puffs Inhalation Twice a day Active traZODone HCl 150 MG 1 tab(s) orally onc e a day (at bedtime); Duration: 90 days Active Propranolol HCl 20 MG 1 tab(s) orally 2 times a day; Duration: 30 days 08/08/2024 Active Tamsulosin HCl 0.4 MG 1 capsule Orally O nce a day; Duration: 90 days 05/01/2025 Active Colace 100 MG 2 caps Orally Once a day; Duration: 30 days 06/05/2025 Active Social History Tobacco Use: Social History [...] e smoker ((1-9 cigs/day) Vital Signs Temperature 97.5 degrees Fahrenheit 08/28/20 25 Blood pressure systolic 110 mm Hg 08/28/20 25 Blood pressure diastolic 86 mm Hg 025 Heart Rate 74 /min 08/28/2025 Height 5 ft 10 in in 08/28/2025 Weight 116 lbs 08/28/2025 BMI 16.64 kg/m2 08/28/2025 Encounters Encounter Location Date Provider Diagnosis [facility] [address] [place] [address] 08/28/2025 Main Carrington COPD, group D, by GO LD 2017 classification J44.9 and Malignant neoplasm of unspecified part of unspecified bronchus or lung C34.90 Assessments Encounter Date Diagnosis (ICD Code) Assessment Notes Treatment Notes Treatment Clinical Notes Section Notes 08/28/2025 COPD, group D, by GOLD 2017 classification (ICD-10 - J44.9) At baseline, on oxygen, still smoking. No changes in plan. Follow-up after pulmonary visit 08/28/2025 Malignant neoplasm of unspecified part of unspecified bronchus or lung (ICD-10 - C34.90) Follows with pulmonary. Check chest x-ray. Plan Of Treatment Treatment Notes Assessment Notes COPD, group D, by GOLD 2017 classificati on At baseline, on oxygen, still smoking. No changes in plan. Follow-up after pulmonary visit Malignant neoplasm of unspec ified part of unspecified bronchus or lung Follows with pulmonary. Check chest x-ray. Next Appt Details Follow Up: prn, Reason: Provider Name:Main Carrington, 09/25/2025 10:45:00 AM, [address], [address], [place], [address], Provider Name:Main Ureña Zeb, 10/09/2025 10:15:00 AM, [address], [address], [place], [address], Progress Notes * Alejandro MADERA SDOB:[birth year] (70 yo M)Acc No.[id number]:08/28/2025 Progress Notes Patient: Alejandro LEUNG Provider: Brit Carrington MD :1955 A ge:70 Y S ex:Male Date:08/28/2025 Address:[address] [place] [address] [place], [place], [id number] Subjective: * Chief Complaints: * 1 . 1 week follow up. * HPI: santos en: Overall feels about the same, has pulmonary appointment scheduled for first week of September with chest x-ray at that point. Has finished up Augmentin. Back on azithromycin 3 times weekly. No major changes in symptoms. * Medical History: R LS, HTN, COPD, Lung/ Liver cancer, Partially Collapsed right lung, 3L oxygen. * Surgical History: p ort installed 12/2022. * Hospitalization/Major Diagno stic Procedure: H [facility]- COPD EXACERBATION 06/10/24-06/12/24, [facility]- COPD , [facility]- COPD 09/2024, [facility]-COPD 11/2024, [facility]-COPD 08/2025. * Family History: F ather: . M other: . P aternal Grand Father: . P aternal Grand Mother: . M aternal Grand Father: . M aternal Grand Mother: . Paternal uncle: unknown. P aternal aunt: unknown. M aternal uncle: . M aternal aunt: . S ibziggy: alive, multiple sclerosis, diagnosed with Diabetes. C [...] US: no. Occupation: Retired. * Medications: T geneva Venturatri Aerosphere 160-9-4.8 MCG/ACT Aerosol 2 puffs Inhalation [...] once a day (at bedtime) , Discontinued Amoxicillin-Pot Clavulanate 875-125 MG Tablet 1 tablet Orally every 12 hrs , Discontinued predniSONE 20 MG Tablet 1 tablet with food or milk Orally Once a day , Discontinued traMADol HCl 50 MG Tablet 1 tablet as needed for mod- severe pain Orally every 8 hrs , Medication List reviewed and reconciled with the patient * Allergies: P enicillin. Objective: * Vitals: N urse: KJ, Pain: 4, Temp: 97.5, RR: 22, HR: 74, BP: 110/86, Ht: 5 ft 10 in, Wt: 116, BMI:16.64. * Examination: G eneral Examination: General P [...] 2017 classification - J44.9 (Primary) 2 . M alignant neoplasm of unspecified part of unspecified bronchus or lung - C34.90 Plan: * Treatment: 2. M alignant neoplasm of unspecified part of unspecified bronchus or lung Notes: Follows with pulmonary. Check chest x-ray. * Follow Up: p rn * * Sign off status: Completed true * Provider: Brit Carrington MD Date: Generated for Phillip smith/Leigha/eTransmitting on: 11/23/2024 01:27 PM EST History and Physical Notes * HPI (History of Present Illness) Category Sub-Category Detail Notes Category Not es gen Overall feels about the same, has pulmonary appointment scheduled for first week of September with chest x-ray at that point. Has finished up Augmentin. Back on azithromycin 3 times weekly. No major changes in symptoms Examination Category Sub-Category Detail Notes Category Not [...]
[2025-09-23] VITALS (16 sets, daily range): BP systolic 104–166; BP diastolic 47–94; PULSE 49–114; RESP 22–32; TEMP 36.9; O2SAT 94–100; BMI 16.0
--- NOTE | 2025-09-23 13:13 | XR_ITS ---
PROCEDURE INFORMATION: Exam: XR Chest Exam date and time: 09/23/2025 1:25 PM Age: 70 years old Clinical indication: Shortness of breath; Additional info: SOA TECHNIQUE: Imaging protocol: Radiologic exam of the chest. Views: 1 view. COMPARISON: CT ANGIO CHEST PE PROTOCOL 09/17/2025 11:52 PM FINDINGS: Lungs: Several areas of probable scarring in the lung parenchyma. Pulmonary emphysema. Persistent Right apical cavitary mass. Calcified pulmonary granulomas. Pleural spaces: No pneumothorax. Heart/Mediastinum: Unremarkable cardiomediastinal silhouette. Bones/joints: No acute osseous findings. IMPRESSION: Persistent Right apical cavitary mass. Further evaluation as clinically indicated.
--- NOTE | 2025-09-23 13:14 | CT_ITS ---
PROCEDURE INFORMATION: Exam: CTA Chest With Contrast Exam date and time: 09/23/2025 2:29 PM Age: 70 years old Clinical indication: Shortness of breath; Additional info: SOA, HX of lung malignancy TECHNIQUE: Imaging protocol: Computed tomographic angiography of the chest with contrast. Exam focused on the arteries. 3D rendering (Not supervised by radiologist): MIP and/or 3D reconstructed images were created by the technologist. Radiation optimization: All CT scans at this facility use at least one of these dose optimization techniques: automated exposure control; mA and/or kV adjustment per patient size (includes targeted exams where dose is matched to clinical indication); or iterative reconstruction. Contrast material: ISOVUE; Contrast volume: 70 ml; Contrast route: INTRAVENOUS (IV); COMPARISON: CT ANGIO CHEST PE PROTOCOL 09/17/2025 11:52 PM FINDINGS: Pulmonary arteries: Normal. No pulmonary emboli. Aorta: Unremarkable. No aortic aneurysm. No aortic dissection. Lungs: Diffuse centrilobular emphysema. Prominent cavity is again seen in the right lung apex unchanged from prior studies. Scarring and retraction extend down to the right hilum also unchanged from earlier examination. No acute infiltrates are noted. Granuloma is noted in the left lung base. A smaller thin walled cavity is seen in the left upper lobe unchanged from earlier. Pleural spaces: Unremarkable. No pneumothorax. No pleural effusion. Heart: No coronary calcification is noted. . No cardiomegaly. No pericardial effusion. Lymph nodes: Calcified subcarinal and hilar lymph nodes consistent with prior granulomatous disease. Bones/joints: Unremarkable. No acute fracture. Soft tissues: Unremarkable. IMPRESSION: 1. No evidence of pulmonary embolus or other acute process. 2. Stable extensive centrilobular emphysema with cavitary changes in the upper lobes bilaterally as well as scarring extending from the hilum consistent with probable treated disease. 3. Evidence of prior granulomatous disease with multiple pulmonary granulomas and calcified mediastinal and hilar lymph nodes. COMMENTS: The presence of pulmonary emphysema on CT is an independent risk factor for lung cancer. In the absence of a history or active diagnosis of lung cancer, it is recommended that this patient with emphysema be evaluated for enrollment in a low dose CT lung cancer screening program.
--- NOTE | 2025-09-23 13:19 | ED_ITS ---
<Statement entered by Juan Toure DO - 09/24/25 00:30> I was consulted by the ABEBA, and we discussed the complexity of problems being addressed. I approved the treatment and management plan for this patient's care in the emergency department, thus performing a substantive portion of the medical decision making. Juan Toure DO Agree with ABEBA assessment and plan above. I did independently evaluate this patient at shift change. He was having significant increased work of breathing and was breathing through pursed lips and was tachypneic. I reviewed his medical history as well as his current workup. It seems from prior notes that the patient was always discharged with increased work of breathing and some level of tachypnea and pursed lip breathing. He has terminal lung cancer and has been offered hospice on numerous occasions but has refused to pursue this. While under my care we administered steroids, DuoNebs, and an hour of continuous albuterol. The patient remained saturating 100% on his baseline oxygen requirement of 3 L. His VBG showed no evidence of acute hypercapnic respiratory failure and he had a normal pH. Due to his increased work of breathing I did have an interactive succussion with the internal medicine service who agreed to evaluate the patient emergency department. They state that this patient appears to be near his baseline respiratory status. They do agree that he has significant wheezing and is more tachypneic than usual and have recommended discharge home on steroids and azithromycin as well as encouragement of cessation of smoking. Internal medicine did specifically offer admission to the patient and he refused. Therefore patient was ultimately discharged home <Statement entered by Alfonzo Cooper MD - 09/23/25 18:39> I was consulted by the ABEBA, and we discussed the complexity of the problems being addressed. I approve the treatment and management plan for this patient's care in the emergency department, thus performing a substantive portion of the medical decision making. Alfonzo Cooper MD Discharge Plan Disposition Patient Disposition: Home, Self-Care Condition: Good Prescriptions Prescriptions: New prednisone 20 mg tablet 40 mg PO DAILY 5 Days Qty: 10 0RF azithromycin 250 mg tablet See Rx Instructions .ROUTE .COMPLEX Qty: 6 0RF Rx Instructions: For 250 mg dose pack: take 500 mg today (day 1), then 250 mg for 4 days (days 2-5) No Action trazodone 150 mg tablet 150 mg PO HS propranolol 20 mg tablet 20 mg PO BID ferrous sulfate 325 mg (65 mg iron) tablet 325 mg PO DAILY Qty: 90 3RF albuterol sulfate 90 mcg/actuation HFA aerosol inhaler 2 inh IH QID PRN (Reason: shortness of breath or wheezing) 90 Days Qty: 8.5 2RF Breztri Aerosphere 160-9-4.8 mcg/actuation HFA aerosol inhaler 2 inh inhalation BID 90 Days Qty: 10.7 3RF ipratropium-albuterol 0.5 mg-3 mg(2.5 mg base)/3 mL solution for nebulization 3 ml INHALATION QIDP PRN (Reason: Shortness Of Breath Or Wheezing) 90 Days Qty: 180 3RF calcium carbonate [Calcium 500] 500 mg calcium (1,250 mg) tablet,chewable 1,000 mg PO DAILY Qty: 10 0RF azelastine 137 mcg (0.1 %) spray,non-aerosol 1 spray intranasal Q6HP PRN (Reason: allergy symptoms) Rx Instructions: administer into each nostril prednisone 20 mg Tablet 40 mg PO DAILY 4 Days Qty: 8 0RF aspirin 325 mg Tablet 325 mg PO DAILY Referrals Follow up/Referrals: Main Carrington MD [Primary Care Provider, Internal Medicine] - See instructions Activity Restrictions/Add. Instructions Additional Instructions/Restrictions: Please return to the emergency department with any worsening signs or symptoms. Please take your medications as prescribed. Please follow-up with your PCP in the upcoming days/weeks. Please utilize all your inhalers no other medications for your COPD at home as prescribed. Please follow-up with your hop strainer and hematology oncologist in the upcoming days/weeks. Clinical Impressions Clinical Impression: Acute exacerbation of chronic obstructive pulmonary disease, Nodule of right lung Instructions Patient Instructions: DI for Chronic Obstructive Pulmonary Disease Print Language Print Language: Belgian Discharge ED Provider: Alfonzo Cooper General Chief Complaint: Shortness of Breath/Dyspnea Stated Complaint: SOA Time Seen by Provider: 09/23/25 13:13 Mode of Arrival: Ambulatory Source of Information: Patient and Spouse Description of Symptoms (Recalled from ER Triage Doc. by RN): alexander presents to the ED for shortness of breath and a cough that started around modnight last night. patient wears 3lnc at baseline. patient has productive cough. patient using abdominal muscles to breath and intermittently using accessory muscles. 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 daily) taper finished last dose today, other past medical history consistent with COPD, hypertension, MDD/TAVIA. Initial triage vitals noted for tachycardia, otherwise SpO2 was 9495% on 3 L nasal cannula which patient baseline. Please note that above description of symptoms, in this electronic medical record under categorization of recalled from ER triage doctor by RN are reflective of an initial nursing assessment, however, is not reflective of my full history and physical exam that was personally taken and clarified. Consequentially, this preceding description of symptoms, which may include the patient's categorized chief complaint in the EMR, do not reflect my personal clinical impression, and the ultimate description of history of present illness and patient stated complaints should be deferred to this section of the note. Unless stated otherwise or congruent with this section of the note, additional signs, symptoms, or incongruence should be interpreted as inaccurate with my clinical impression. MD complaint: other Onset (ago): hour(s) Related Data Home Medications ?Medication ?Instructions ?Recorded ?Confirmed trazodone 150 mg tablet 150 mg PO HS 07/03/22 aspirin 325 mg tablet 325 mg PO DAILY 05/11/2309/02 propranolol 20 mg tablet 20 mg PO BID 08/23/24 azelastine 137 mcg (0.1 %) nasal 1 spray intranasal Q6 HP PRN 08/11/25 09/18/25 spray allergy symptoms Previous Rx's ?Medication ?Instructions ?Recorded calcium carbonate (Calcium 500) 1,000 mg (2 x 500 mg c alcium 10/01/24 (1,250 mg)) PO DAILY #10 tabs ferrous sulfate 325 mg (65 mg 325 mg PO DAILY #90 tabs 11/29/24 iron) tablet albuterol sulfate 90 mcg/actuation 2 inh inhalation QI D PRN shortness 07/11/25 aerosol inhaler of breath or wheezing 90 day s #8.5 grams budesonide 160 mcg-glycopyr 9 2 inh inhalation BID 90 days #10.7 08/21/25 mcg-formot 4.8 mcg/actuation HFA grams inhaler (Breztri Aerosphere) prednisone 20 mg tablet 40 mg (2 x 20 mg) PO DAILY 4 days 09/19/25 #8 tabs ipratropium 0.5 mg-albuterol 3 mg 3 ml inhalation QIDP PRN Shortness 09/21/25 (2.5 mg base)/3 mL nebulization Of Breath Or Wheezing 90 days #180 soln mL azithromycin 250 mg tablet See Rx Instructions PO .COM PLEX #6 09/23/25 tabs prednisone 20 mg tablet 40 mg (2 x 20 mg) PO DAILY 5 days 09/23/25 #10 tabs Allergies Allergy/AdvReac Type Severity Reaction Status Date / Time silver (From Tegaderm AG Allergy Severe Rash Verified 09/12/25 09:56 Mesh) doxycycline Allergy Mild GI upset Verified 09/12/25 09:56 Penicillins (PENICILLINS) Allergy Mild Unknown Verified 09/12/25 09:56 allergy reaction amitriptyline AdvReac Intermediate gi upset Verified 09/12/25 09:56 adhesive AdvReac Rash Verified 09/12/25 09:56 hydrocodone AdvReac gi upset Verified 09/12/25 09:56 [facility] Disclaimer: The information contained in this section may have been updated after the patient was seen, as this information can be updated by other users. Medical History Hypomagnesemia Hypocalcemia Hypomagnesemia Hypocalcemia COPD exacerbation Hypocalcemia Acute exacerbation of chronic obstructive pulmonary disease Acute on chronic hypoxic respiratory failure Asthma exacerbation in COPD Shortness of breath Acute exacerbation of chronic obstructive pulmonary disease Dyspnea On home oxygen therapy Acute and chronic respiratory failure with hypercapnia Acute exacerbation of chronic obstructive airways disease Community acquired pneumonia Bilateral impacted cerumen Tinnitus Hearing loss Lung nodule Hilar lymphadenopathy Pneumonia Sleep apnea Emphysema/COPD Chronic cough Bronchitis Allergies History of anemia Lung collapse Nodule of right lung Tobacco abuse disorder Tobacco abuse counseling Small cell lung cancer Smoking greater than 30 pack years Chronic hypoxemic respiratory failure COPD (chronic obstructive pulmonary disease) Dyspnea on exertion On home O2 Sinus problem History of chemotherapy History of radiation therapy Personal history of arthritis History of lung disease Hyperlipemia Cancer Asthma Essential hypertension COPD exacerbation Surgical History History of insertion of tunneled central venous catheter (CVC) with port History of colonoscopy Hx of cardiac catheterization Normal coronary arteries History of sinus surgery Family History Other Cancer Diabetes Social History Smoking Status: Current every day smoker tobacco type: cigarettes packs per day: 1 years smoked: 50 alcohol intake: former substance use type: denies use current occupational status: retired and disabled Travel in the last 8 weeks?: None household members: spouse housing: house caffeine: Yes Have you lived/traveled outside [place] in past 30 days?: No Contact w/someone who lives/traveled outside [place] past 30 days?: No Exposure to someone with infectious disease in past 14 days?: No Do you have a fever (greater than 100.4 F or 38 C)?: No Have you tested positive for COVID-19?: No Exposed to someone with COVID-19 in past 14 days?: No Do you have a sore throat?: No Do you have a cough?: No Do you have any weakness?: No Do you have any diarrhea?: No Are you experiencing any unusual bleeding?: No Do you have any muscle aches/pain?: No Do you have any abdominal pain?: No Are you experiencing loss of taste or smell?: No Other Medical History Have you received the Flu Vaccine for this season: No Have you received the Pneumonia Vaccine: No ROS Obtained: Yes All systems reviewed & no additional complaints except as documented Physical Exam General General appearance: alert, in no apparent distress and cachectic Head Head exam: atraumatic and normocephalic Eye Eye exam: Present PERRL and EOMI ENT ENT exam: Present mucous membranes moist Neck Neck exam: Present normal inspection Chest Chest inspection: Present normal inspection and symmetric chest wall rise Respiratory Respiratory exam: Present respiratory distress, wheezes, accessory muscle use and other (Patient in mild respiratory distress with pursed lip breathing and conversational dyspnea with mild to moderate diffuse wheezes and rhonchi with some possible mild crackles bilaterally); Absent normal lung sounds bilaterally Cardiovascular Cardiovascular exam: Present regular rate and normal rhythm Abdominal Exam Abdominal exam: Present soft; Absent tenderness, guarding or rebound Extremities Exam Extremities exam: Present normal inspection Neurological Exam Neurological exam: Present alert and oriented X3 Psychiatric Psychiatric exam: Present normal affect Skin Skin exam: Present warm and dry HEART Score HEART Score HEART Score assessment performed?: No Critical Care Critical Care Time Critical Care Time: No Medical Decision Making Medical Records Medical records reviewed: Yes I reviewed the patient's medical records. Alvarado Inquiry Pt receiving controlled substance: No Alvarado was queried for this patient: No Vital Signs Vital Signs: 09/23/25 13:03 09/23/25 13:30 09/23/25 13:45 Temperature 98.4 F Temperature Source Oral Pulse Rate 114 H 112 H Pulse Rate [Right Radial] 75 Respiratory Rate 22 Blood Pressure 119/72 109/76 L Blood Pressure [Right Arm] 166/84 H Blood Pressure Mean Blood Pressure Mean [Right Arm] 111 Blood Pressure Source [Right Arm] Automatic Cuff Blood Pressure Position [Right Arm] Sitting 02 Sat by Pulse Oximetry 94 L 100 100 Oxygen Delivery Method Nasal Cannula Aerosol Mask Aerosol Mask Oxygen Flow Rate (LPM) 4 6 6 09/23/25 14:00 09/23/25 15:01 09/23/25 15:15 Temperature Temperature Source Pulse Rate 49 L 110 H 81 Pulse Rate [Right Radial] Respiratory Rate Blood Pressure 107/69 L 114/94 H 115/60 Blood Pressure [Right Arm] Blood Pressure Mean Blood Pressure Mean [Right Arm] Blood Pressure Source [Right Arm] Blood Pressure Position [Right Arm] 02 Sat by Pulse Oximetry 100 100 99 Oxygen Delivery Method Aerosol Mask Nasal Cannula Oxygen Flow Rate (LPM) 6 3 09/23/25 15:30 09/23/25 15:45 09/23/25 16:15 Temperature Temperature Source Pulse Rate 106 H 111 H 75 Pulse Rate [Right Radial] Respiratory Rate Blood Pressure 129/81 114/66 136/78 Blood Pressure [Right Arm] Blood Pressure Mean Blood Pressure Mean [Right Arm] Blood Pressure Source [Right Arm] Blood Pressure Position [Right Arm] 02 Sat by Pulse Oximetry 100 100 Oxygen Delivery Method Aerosol Mask Aerosol Mask Oxygen Flow Rate (LPM) 8 8 09/23/25 16:45 09/23/25 17:00 09/23/25 17:31 Temperature Temperature Source Pulse Rate 106 H 105 H 114 H Pulse Rate [Right Radial] Respiratory Rate Blood Pressure 124/75 128/72 108/62 L Blood Pressure [Right Arm] Blood Pressure Mean 102 90 Blood Pressure Mean [Right Arm] Blood Pressure Source [Right Arm] Blood Pressure Position [Right Arm] 02 Sat by Pulse Oximetry 100 Oxygen Delivery Method Nasal Cannula Oxygen Flow Rate (LPM) 3 09/23/25 17:45 09/23/25 18:00 09/23/25 18:15 Temperature Temperature Source Pulse Rate 111 H 107 H 110 H Pulse Rate [Right Radial] Respiratory Rate Blood Pressure 114/64 107/72 L 120/57 L Blood Pressure [Right Arm] Blood Pressure Mean Blood Pressure Mean [Right Arm] Blood Pressure Source [Right Arm] Blood Pressure Position [Right Arm] 02 Sat by Pulse Oximetry 100 99 100 Oxygen Delivery Method Nasal Cannula Nasal Cannula Nasal Cannula Oxygen Flow Rate (LPM) 3 3 3 Lab Data Lab results reviewed: Yes I reviewed the patient's lab results. Labs: Lab Results 09/23/25 13:13: VBG pH 7.41, VBG pCO2 52.2 H, VBG pO2 81.2 H, VBG HCO3 32.0 H, V BG Total CO2 33.7 H, VBG O2 Saturation 95.9 H, VBG Base Excess 7.3 H, VBG Lactic Acid 1.8 09/23/25 13:29: WBC 7.0, RBC 3.30 L, Hgb 9.1 L, Hct 29.1 L, MCV 88.2, MCH 27.6, MCHC 31.3 L, RDW 15.1, Plt Count 304, MPV 9.0, Neut % (Auto) 93.2 H, Lymph % (Auto) 4.4 L, Mccracken % (Auto) 1.9, Eos % (Auto) 0.0 L, Baso % (Auto) 0.1, Neut # (Auto) 6.5, Lymph # (Auto) 0.3 L, Mccracken # (Auto) 0.1, Eos # (Auto) 0.0, Baso # (Auto) 0.0, Total Counted 100, Neutrophils % (Manual) 95 H, Lymphocytes % (Manual) 3 L, Monocytes % (Manual) 2, Platelet Estimate Normal, RBC Morphology Normal, PT 11.1, INR 1.00, Sodium 132 L, Potassium 3.8, Chloride 92 L, Carbon Dioxide 33 H, Anion Gap 10.8, BUN 11, Creatinine 0.60 L, Estimated Creat Clear 52, Estimated GFR 134, Est GFR ( Amer) 162, Glucose 177 H, Lactate 1.5, C alcium 6.3 L, Magnesium 1.2 L, Total Bilirubin 0.3, AST 26, ALT 21, Alkaline Phosphatase 74, NT-Pro-B Natriuret Pep 502 H, Total Protein 7.0, Albumin 4.2, Globulin 2.8, Albumin/Globulin Ratio 1.5 09/23/25 : SARS-CoV-2 (PCR) Not detected, Influenza A Untype (PCR) Not detected, Influenza Type B (PCR) Not detected 09/23/25 13:29 09/23/25 13:29 Response Orders (Tests/Meds): ED MEDICATIONS Discontinued Medications Generic Name Dose Route Start Last Admin Trade Name Freq PRN Reason Stop Dose Admin Albuterol Sulfate 20 mg 09/23/25 15:10 09/23/25 15:10 Albuterol 0.083% 2.5 Mg/3 Ml [facility] 09/23/25 15:11 20 mg ONCE ONE Administration Albuterol/Ipratropium 6 ml 09/23/25 13:15 09/23/25 13:55 Ipratropium/Albuterol 3 Ml [facility] 09/23/25 13:16 6 ml ONCE ONE Administration Magnesium Sulfate 2 gm in 50 mls @ 50 mls/hr 09/23/25 14:04 09/23/25 16:26 Magnesium Sulfate 2gm/50ml Premix IV 09/23/25 15:03 Infused ONCE ONE Infusion Iopamidol 70 ml 09/23/25 14:28 09/23/25 14:29 Iopamidol-370 (76%);100ml Bottle IV 09/23/25 14:29 70 ml ONCE ONE Administration Methylprednisolone Sodium Succinate 125 mg 09/23/25 13:16 09/23/25 13:55 Methylprednisolone Sod Succ 125mg Vial IV 09/23/25 13:17 125 mg ONCE ONE Administration Sodium Chloride 10 ml 09/23/25 14:28 09/23/25 14:29 Sodium Chloride 0.9% 10ml Syr (Rad Only) IV 09/23/25 14:29 10 ml ONCE ONE Administration Sodium Chloride 50 ml 09/23/25 14:28 09/23/25 14:29 0.9 % Sodium Chloride 50 Ml Vial IV 09/23/25 14:29 50 ml ONCE ONE Administration ORDERS Category Date Time Status CT angio chest PE protocol Stat Cat Scan 09/23/25 13:14 Completed XR chest portable Stat Exams 09/23/25 13:13 Completed Complete Blood Count Auto Diff Stat Lab 09/23/25 13:29 Completed Comprehensive Metabolic Panel Stat Lab 09/23/25 13:29 Completed Lactic Acid Stat Lab 09/23/25 13:29 Completed Magnesium Stat Lab 09/23/25 13:29 Completed NT Pro Brain Natriuretic Pep. Stat Lab 09/23/25 13:29 Completed PT INR [Prothrombin Time INR] Stat Lab 09/23/25 13:29 Completed Rapid PCR Covid and Flu A/B Stat Lab 09/23/25 Completed VBG [Venous Blood Gas] Stat RT 09/23/25 13:13 Completed MDM Narrative Medical Decision Narrative: 70-year-old male presents to the emergency department with shortness of breath started at midnight last night differential diagnose include but not limited to, COPD exacerbation, new onset/CHF exacerbation, pneumonia, lung malignancy, pleural effusion, pulmonary edema, ARDS, acute on chronic hypoxemic respiratory failure, bronchitis, viral URI, cardiac arrhythmia, electrolyte disturbance among others. I discussed this patient's case with attending physician , as well as the attending physician Dr. Toure, who saw and examined the patient as well. Will obtain basic laboratory studies, EKG, chest x-ray, lactic acid level magnesium level proBNP PT/INR corrupt PCR COVID and flu, VBG, CTA chest with without contrast PE protocol, will give 6 mm DuoNeb, as well as 125 mg IV methylprednisone. CBC is notable for erythrocyte pi?a 3.3 hemoglobin at 9.1 and hematocrit 29.1 which are stable since previous hospital discharge pH on VBG is 7.41, pCO2 is minimally elevated at 52.2, bicarb is elevated at 32, no venous lactic acid elevation. Mild hyponatremia 132, noted on CMP, no lactic acidosis, mild hypomagnesia 1.2, will give 2 g IV magnesium for replacement as well as for COPD exacerbation, proBNP is mildly elevated at 502, Coags within normal limits I reviewed the patient's chest x-ray along the corresponding radiologic report, persistent right apical cavitary mass further evaluation as clinically indicated. Patient still having some pursed lip breathing and increased work of breathing thus will give continuous albuterol nebulized treatment. I reviewed the patient's CTA chest with without contrast PE protocol, no evidence of pulmonary embolism or other acute process, stable extensive central lobar emphysema with cavitary changes in the upper lobes bilaterally as well as scarring extending to the hilum consistent with probable treated disease, evidence of prior granulomatous disease multiple pulmonary granulomas and calcified metastatic on the hilar lymph nodes. COVID-19 negative via PCR influenza negative via PCR I was notified by nursing staff at approximately 4:24 PM the patient is refusing continuous albuterol treatment, without having something for his dry throat , will give the patient lozenge and continue with continuous albuterol inhaled/treatment. Dr. Toure the attending physician had a long discussion with the patient and family the bedside patient still has significant worsening work of breathing, after DuoNebs, IV methylprednisone, IV magnesium, as well as continuous albuterol treatment, discussion was had with Dr. Tomas the hospitalist physician, see attending physician documentation. Dr. Tomas hospitalist physician is going to see the patient in consultation to determine admission versus discharge home. I along with the attending physician Dr. Toure had a discussion with hospitalist physician Dr. Tomas who saw and examined the patient, see physician documentation for this. Patient appears to be at his baseline work of breathing, was offered hospice/palliative care for end-stage COPD and right lung malignancy, patient ultimately found to be ready for discharge home. Will send the patient home with 40 mg p.o. prednisone for 5 days as well as azithromycin Z-Karthikeyan antibiotic, patient was instructed to utilize his inhalers at home as prescribed. Patient was given very strict ED return precautions. Patient and family voiced understanding and agreement with the current treatment plan/discharge plan
--- OUTSIDE RECORDS SUMMARY | 2025-09-23 13:25 | XMS_ITS | Patient Health Record ---
Author Organization [facility] Address [address] [place] [address] Care Team Providers Care Newspaper Deliverer Name Role Phone Main Carrington Primary Care Provider Main Carrington Unavailable Unavailable Cathie Musa Unavailable [phone] Cathie Chang Unavailable [phone] Migration, Provider Unavailable Unavailable Allergies Allergen (clinical drug ingredient) Drug/Non Drug Allergy documented on EMR Reaction Allergy Type Onset Date Status Penicillin Unknown Drug Allergy Active Results Component Value Reference Range Notes BASIC METABOLIC PANEL (86622 ) Reviewed date:10/12/2024 08:42:36 AM Interpretation: Performing Lab:CB, [facility] [id number] [facility], [facility] HospitalUwvuIL[address] [place] Notes/Report: NON-FASTING; NON-FASTING GLUCOSE 80 [...] Reviewed date:10/12/2024 08:42:36 AM Interpretation: Performing Lab:[facility] [employer]BlogBuse13[address] [employer], Vir-SecVfgeYS[address] [place] Notes/Report: NON-FASTING; NON-FASTING VITAMIN D,25-OH,TOTAL,IA 43 30-100 ng/mL Vitamin D Status 25-OH Vitamin D: Deficiency: <20 ng/mL Insufficiency: 20 - 29 ng/mL Optimal: > or = 30 ng/mL For 25-OH Vitamin D testing on patients on D2-supplementation and patients for whom quantitation of D2 and D3 fractions is required, the QuestAssureD(TM) 25-OH VIT D, (D2,D3), LC/MS/MS is recommended: order code 95029 (patients >2yrs). See Note 1 Note 1 For additional information, please refer to http://education.AFTER-MOUSE/faq/LHX850 (This link is being provided for informational/ educational purposes only.) PTH, INTACT WITHOUT CALCIUM (98905) Reviewed date:10/12/2024 08:42:36 AM Interpretation: Performing Lab:[facility] [employer]BlogBuse1355 [employer], Vir-SecWixqBU[address] [place] Notes/Report: NON-FASTING PARATHYROID HORMONE, INTACT <6 16-77 pg/mL Interpretive Guide Intact PTH Calcium ------- Normal Parathyroid Normal Normal Hypoparathyroidism Low or Low Normal Low Hyperparathyroidism Primary Normal or High High Secondary High Normal or Low Tertiary High High Non-Parathyroid Hypercalcemia Low or Low Normal High THYROID PANEL WITH TSH (7444 ) Reviewed date:02/22/2025 10:41:38 AM Interpretation: Performing Lab:[facility] ValveXchangee1355 [employer] [place] Notes/Report: NON-FASTING; NON-FASTING; NON-FASTING; NON-FASTING; NON-FAST T3 UPTAKE 28 22-35 % T4 (THYROXINE), TOTAL 7.8 4.9-10.5 mcg/dL FREE T4 INDEX (T7) 2.2 1.4-3.8 TSH 1.30 0.40-4.50 mIU/L VITAMIN B12/FOLATE, SERUM PA HUGH (7065) Reviewed date:02/22/2025 10:41:39 AM Interpretation: Performing Lab:[facility] [employer] [id number] [employer], EvergigTjopTV[address] [place] Notes/Report: NON-FASTING; NON-FASTING; NON-FASTING; NON-FASTING; NON-FAST VITAMIN B12 727 990-2160 pg/mL FOLATE, SERUM >24.0 Reference Range Low: <3.4 Borderline: 3.4-5.4 Normal: >5.4 VITAMIN D,25-OH,TOTAL,IA (17 306) Reviewed date:02/22/2025 10:41:39 AM Interpretation: Performing Lab:[facility] Mnru5362 [employer], EvergigZwbfMT[address] [place] Notes/Report: NON-FASTING; NON-FASTING; NON-FASTING; NON-FASTING; [...] D, (D2,D3), LC/MS/MS is recommended: order code [id number] (patients >2yrs). See Note 1 Note 1 For additional information, please refer to http://education.AFTER-MOUSE/faq/MYC279 (This link is being provided for informational/ educational purposes only.) X ray : Chest Reviewed date:08/04/2025 01:16:50 PM Interpretation: Performing Lab: Notes/Report: X ray : Rib Series, Left Reviewed date:08/07/2025 03:36:10 PM Interpretation: Performing Lab: Notes/Report: COMPREHENSIVE METABOLIC PANE L (13064) Reviewed date:02/22/2025 10:41:38 AM Interpretation: Performing Lab:[facility] [employer]BlogBuse1355 [employer] GojeeOlmsted Medical CenterWwgqNN[address] [place] Notes/Report: NON-FASTING; NON-FASTING; NON-FASTING; NON-FASTING; [...] Reviewed date:02/22/2025 10:41:39 AM Interpretation: Performing Lab:[facility] Pjtm0468 [facility] [place] Notes/Report: NON-FASTING; NON-FASTING; NON-FASTING; NON-FASTING; [...] MPV 10.0 7.5-12.5 fL ABSOLUTE NEUTROPHILS 3640 9516-4871 cells/uL ABSOLUTE LYMPHOCYTES 7920 617-2745 cells/uL ABSOLUTE MONOCYTES 549 200-950 cells/uL ABSOLUTE EOSINOPHILS 291 15-500 cells/uL ABSOLUTE BASOPHILS 28 0-200 cells/uL NEUTROPHILS 65 LYMPHOCYTES 19.5 MONOCYTES 9.8 EOSINOPHILS 5.2 BASOPHILS 0.5 BASIC METABOLIC PANEL (01663 ) Reviewed date:12/21/2024 02:53:46 PM Interpretation: Performing Lab:CB, [facility] [address], [facility] CampusKoziMK[address] [place] Notes/Report: NON-FASTING GLUCOSE 86 65-99 [...] Duration) Notes Start Date End Date Status [facility] [employer] 160-9-4.8 MCG/ACT 2 puffs Inhalation Twice [...] Risk Notes Problem Malignant tumor of lung (352874867) Malignant neoplasm of unspecified part of unspecified bronchus or lung (C34.90) Active confirmed Problem Hypocalcemia (9464826) Hypocalcemia (E83.51) Active confirmed Problem Primary insomnia (6228562) Primary insomnia (F51.01) Active confirmed Problem Essential tremor (165609667) Essential tremor (G25.0) Active confirmed Problem Essential hypertension (96533910) Essential (primary) hypertension (I10) Active confirmed Problem Vasomotor rhinitis (1208041) Vasomotor rhinitis (J30.0) Active confirmed Problem Acute on chronic hypoxemic and hypercapnic respiratory failure (disorder) (25938670713203) Acute and chronic respiratory failure with hypercapnia (J96.22) Active confirmed Problem Osteoarthritis (985648524) Unspecified osteoarthritis, unspecified site (M19.90) Active confirmed Problem Nicotine dependence (09526379) Personal history of nicotine dependence (Z87.891) Active confirmed Problem Acute exacerbation of chronic obstructive airways disease (788140687) COPD with exacerbation (J44.1) Active confirmed Problem 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) (3027659824638545 7) 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) Active confirmed Problem Restless legs syndrome (96808174) Restless leg syndrome (G25.81) Active confirmed Problem Idiopathic peripheral neuropathy (07949969) Idiopathic peripheral neuropathy (G60.9) Active confirmed Problem 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) Active confirmed Problem Cigarette smoker (73497284) Cigarette smoker (F17.210) Active confirmed Problem Tobacco dependence (33813243) Tobacco dependence (F17.200) Active confirmed Problem Oropharyngeal dysphagia (44774281) Oropharyngeal dysphagia (R13.12) Active confirmed Problem Dependence on supplemental oxygen (060889197181) Oxygen dependent (Z99.81) Active confirmed Problem Irritable bowel syndrome characterized by constipation (126786333) Irritable bowel syndrome with constipation (K58.1) Active confirmed Problem Lower urinary tract symptoms due to benign prostatic hypertrophy (88421388545652) Benign prostatic hyperplasia with lower urinary tract symptoms (N40.1) Active confirmed Problem Chronic obstructive pulmonary disease (02360965) COPD, group D, by GOLD 2017 classification (J44.9) Active confirmed Vital Signs Heart Rate 74 /min 08/28/2025 Temperature 97.5 degrees Fahrenheit 08/28/2025 Oximetry 99 08/18/2025 Blood pressure diastolic 86 mm Hg 08/28/2025 Height 5 ft 10 in in 08/28/2025 Blood pressure systolic 110 mm Hg 08/28/2025 Weight 116 lbs 08/28/2025 BMI 16.64 kg/m2 08/28/2025 Encounters Encounter Location Date Provider Diagnosis [facility] [address] [place] [address] 02/11/2025 Provider Migration COPD, group D, by GOLD 2017 classification J44.9 [facility] [address] [place] [address] 09/26/2024 Main Carrington COPD, group D, by GO LD 2017 classification J44.9 ; Acute and chronic respiratory failure with hypercapnia J96.22 ; Malignant neoplasm of unspecified part of unspecified bronchus or lung C34.90 and Hospital discharge follow-up Z09 [facility] [address] [place] [address] 10/10/2024 Main Besson Hypocalcemia E83.51 and Hospital discharge follow-up Z09 [facility] [address] [place] [address] 10/17/2024 Main Besson Hypocalcemia E83.51 [facility] [address] [place] [address] 11/08/2024 Cathie Chang COPD exacerbation J44.1 [facility] [address] [place] [address] 11/21/2024 Main Besson COPD, group D, by GO LD 2017 classification J44.9 ; Acute and chronic respiratory failure with hypercapnia J96.22 and Hospital discharge follow-up Z09 [facility] [address] [place] [address] 12/19/2024 Main Besson Hypocalcemia E83.51 and COPD, group D, by GOLD 2017 classification J44.9 [facility] [address] [place] [address] 02/20/2025 Main Besson Idiopathic periphera l neuropathy G60.9 ; COPD, group D, by GOLD 2017 classification J44.9 and Malignant neoplasm of unspecified part of unspecified bronchus or lung C34.90 [facility] [address] [place] [address] 05/01/2025 Main Besson COPD, group D, by GO LD 2017 classification J44.9 ; Acute and chronic respiratory failure with hypercapnia J96.22 ; Malignant neoplasm of unspecified part of unspecified bronchus or lung C34.90 ; Essential (primary) hypertension I10 ; Chronic constipation K59.09 ; Benign prostatic hyperplasia with lower urinary tract symptoms N40.1 ; Nocturia R35.1 and Routine medical exam Z00.00 [facility] [address] [place] [address] 06/05/2025 Main Besson Irritable bowel syndrome with constipation K58.1 [facility] [address] [place] [address] 08/01/2025 Cathiekim EmeryDimple Acute traumatic pain G89.11 ; Left-sided chest wall pain R07.89 and Oxygen dependent Z99.81 [facility] [address] [place] [address] 08/18/2025 Main Besson Lobar pneumonia J18. 1 ; COPD with exacerbation J44.1 ; Hospital discharge follow-up Z09 and Immunization(s) administered Z23 [facility] [address] [place] [address] 08/28/2025 Main Besson COPD, group D, by GO LD 2017 classification J44.9 and Malignant neoplasm of unspecified part of unspecified bronchus or lung C34.90 [facility] [address] [place] [address] 10/03/2024 Main Besson COPD, group D, by GO LD 2017 classification J44.9 and Acute and chronic respiratory failure with hypercapnia J96.22 [facility] [address] [place] [address] 11/14/2024 Main Besson [facility] [address] [place] [address] 04/11/2025 Main Besson Essential tremor G25 .0 [facility] [address] [place] [address] 05/09/2025 Main Besson Chronic constipation K59.09 [facility] [address] [place] [address] 07/12/2025 Main Besson [facility] [address] [place] [address] 08/01/2025 Cathie Dimple [facility] [address] [place] [address] 08/03/2025 Cathie Dimple [facility] [address] [place] [address] 08/11/2025 Main Besson [facility] [address] [facility] [address] [place] [address] 09/19/2025 Main Carrington Assessments Encounter Date Diagnosis (ICD Code) Assessment Notes Treatment Notes Treatment Clinical Notes Section Notes 09/26/2024 COPD, group D, by GOLD 2017 [...] - C34.90) Has follow-up with oncology in 05/01/2025 Essential (primary) hypertension (ICD-10 - I10) [...] No injury. Depression screening negative per patient. / word recall. Declines vaccinations Plan Of Treatment Pending Test Test Name Order Date M-Complete Blood Count Auto Diff 024 M-Comprehensive Metabolic Panel 10/03/20 24 M-Magnesium 10/03/2024 Next Appt Details Provider Name:Main Carrington, 09/25/2025 10:45:00 AM, [address], [place], [address], Provider Name:Main Carrington, 10/09/2025 10:15:00 AM, [address], [address], [place], [address], Insurance Providers Payer Name Payer Address Payer Phone Subscriber Number Group Number Insured Name Patient Relationship to Insured Coverage Start Date Coverage End Date [employer] [address] [place] [address] [id number] Alejandro Madera Self - patient is the insured Medications Administered Medication Instructions Date of Administration Dosage Notes Dexamethasone 4mg Injection 05/31/2024 4 mg Dexamethasone 4mg Injection 08/24/2024 4 mg Medical (General) History Medical History History ICD Code RLS HTN COPD Lung/ Liver cancer Partially Collapsed right lung 3L oxygen Surgical History Surgery Date(Month/Year) port installed 12/2022 Hospitalization History Reason Date(Month/Year) H-COPD 08/2025 H-COPD 11/2024 [facility]- COPD 09/2024 [facility]- COPD EXACERBATION 06/10/24-06/12/24
--- OUTSIDE RECORDS SUMMARY | 2025-09-23 13:25 | XMS_ITS | Clinical Summary ---
Author Organization [facility] Address [address] [place] [address] Care Team Providers Care Mortgage Counselor Name Role Phone Unavailable Primary Care Provider [...] ADRIENNE ESTRADA Released Date Time- 02/24/15 1234 Youth Nutritional Monitor- LJosefina Procedure Note Adrienne Avendaño MD - [...] ADRIENNE ESTRADA Released Date Time- 02/24/15 1234 Youth Nutritional Monitor- Sariah us Talha Carrasco MD IMG CT ORDERABLES Final Res ult from Last 3 Months or Most Recently Relevant to Health Maintenance
--- OUTSIDE RECORDS SUMMARY | 2025-09-23 13:27 | XMS_ITS | Clinical Summary ---
Author Organization [facility] Address [address] [place] [id number] Care Team Providers Care Lmft Name Role Phone Main Kyle MD Primary Care Provider [phone] Immunizations Immunization Administration Dates Next Due Influenza, [...] - PCV20 or PCV21) 04/15/2017 09/16/2017, 04/15/2016 [id number] Vaccine (3 - season) 2025 09/18/2021, 01/16/2021 [...] age to complete this topic Care Teams Lmft Relationship Specialty Start Date End Date Main Kyle MD [address] [place] [address] PCP - General 03/22/21
--- OUTSIDE RECORDS SUMMARY | 2025-09-23 13:27 | XMS_ITS | Encounter Summary ---
Author Organization [facility] Address [address] [place] [address] Care Team Providers Care Electrical Continuity Inspector Name Role Phone Main Kyle MD Primary Care Provider Encounter Details Date Type Department Care Team (Late st Contact Info) Description 06/16/2019 Abstract [facility] [address] [place] [address] Radiation Oncology, Physician, [address] [place] [address] Social History Tobacco Use Types Packs/Day Years [...] on filedocumented in this encounter Care Teams Electrical Continuity Inspector Relationship Specialty Start Date End Date Main Kyle MD [address] [place] [address] PCP - General 03/22/21 documented as of this encounter
--- NOTE | 2025-09-23 13:33 | ECG_ITS ---
APPROVED REPORT Exam: Resting ECG HR:116 bpm ECG Measurements Heart Rate 116 AXES TX 127 P 85 QRSd 96 QRS 80 QT 333 T 81 QTc 402 Conclusion SINUS TACHYCARDIA WITH FREQUENT SUPRAVENTRICULAR PREMATURE COMPLEXES RIGHT ATRIAL ENLARGEMENT [0.3mV P-WAVE] POSSIBLE LEFT ATRIAL ENLARGEMENT [-0.1mV P-WAVE IN V1/V2] ABNORMAL ECG UNCONFIRMED REPORT Sinus tachycardia. No ST elevation or depression. QTc of 402 Electronically signed by : JACKIE LEE, 09/24/2025 07:04:35
[2025-09-23 13:37] LABS: Lactate Venous 1.8 mmol/L (0.4-2.0); VBG HCO3 32.0 mmol/L (23-30); VBG PCO2 52.2 mmol/L (35-51); VBG PH 7.41 mmol/L (7.31-7.41); VBG PO2 81.2 mmol/L (28-40)
[2025-09-23 13:37] LABS: Hematocrit 29.1 % (42.0-52.0); Hemoglobin 9.1 g/dL (14.1-18.0); Immature Granulocytes % 0.4 %; Mean Corpuscular HGB Conc 31.3 g/dL (31.8-35.4); Mean Corpuscular Hemoglobin 27.6 pg (27.0-31.2); Mean Corpuscular Volume 88.2 fl (80-94); Nucleated Red Blood Cells % 0 %; Platelet Count 304 K/mm3 (142-424); Red Blood Count 3.30 M/mm3 (4.60-6.20); Red Cell Distribution Width-SD 48.2 fL; White Blood Count 7.0 K/mm3 (4.8-10.8)
[2025-09-23 13:46] LABS: INR 1.00 (0.9-1.1); Prothrombin Time 11.1 seconds (10.1-12.5)
[2025-09-23 13:51] LABS: Alanine Aminotransferase 21 U/L (12-78); Albumin Level 4.2 g/dl (3.5-5.0); Albumin/Globulin Ratio 1.5 (1.1-1.8); Alkaline Phosphatase 74 U/L (38-126); Anion Gap 10.8 mEq/L (5-15); Aspartate Amino Transferase 26 U/L (17-59); Bilirubin,Total 0.3 mg/dl (0.2-1.3); Blood Urea Nitrogen 11 mg/dl (9-20); Calcium 6.3 mg/dl (8.4-10.2); Carbon Dioxide 33 mmol/L (22.0-30.0); Chloride 92 mmol/L (98-107); Creatinine Clearance Estimated 52 mL/min (50-200); Creatinine,Serum 0.60 mg/dl (0.66-1.25); Estimated Glomerular Filt Rate 134 ml/min (>60); GFR (African American) 162 ML/MIN (>60); Globulin 2.8 g/dL (1.3-3.2); Glucose 177 mg/dl (74-100); Magnesium 1.2 mg/dl (1.6-2.3); Potassium 3.8 mmoL/L (3.5-5.1); Sodium 132 mmol/L (136-145); Total Protein,Serum 7.0 g/dl (6.3-8.2)
[2025-09-23] MEDS: METHYLPREDNISOLONE SOD SUCC 125MG VIAL 125 MG IV (13:55)
[2025-09-23] MEDS: IPRATROPIUM/ALBUTEROL 3 ML NEB 6 ML IH (13:55)
[2025-09-23 13:59] LABS: NT Pro Brain Natriuretic Pep. 502 pg/mL (0-125)
[2025-09-23 14:09] LABS: RBC Morphology Normal; Total Cells Counted 100
[2025-09-23] MEDS: IOPAMIDOL-370 (76%);100ML BOTTLE 70 ML IV (14:29)
[2025-09-23] MEDS: SODIUM CHLORIDE 0.9% 10ML SYR (RAD ONLY) 10 ML IV (14:29)
[2025-09-23] MEDS: 0.9 % SODIUM CHLORIDE 50 ML VIAL IV (14:29)
[2025-09-23 14:52] LABS: Coronavirus 19, PCR Not Detected (NotDetected); Influenza A, PCR Not Detected (NotDetected); Influenza B, PCR Not Detected (NotDetected)
[2025-09-23] MEDS: MAGNESIUM SULFATE IN WATER 2 GM/50 ML PIGGYBACK IV (15:03)
[2025-09-23] MEDS: ALBUTEROL 0.083% 2.5 MG/3 ML NEB 20 MG IH (15:10)
--- NOTE | 2025-09-23 16:24 | PC.NURSE ---
PT REFUSED TO FINISH CONTINUOUS NEB DUE TO INCREASING SHORTNESS OF BREATH. EMMA Nichole NOTIFIED
--- NOTE | 2025-09-23 18:25 | EXP.MED.CON ---
History of Present Illness *Admission Date: 09/23/25 *Reason for visit:: Short of breath *History of present illness: 70-year-old male presents the emergency department with shortness of air that occurred midnight last night, patient denies any fever chills, has some pleuritic chest pain, denies any nausea vomiting constipation diarrhea no urinary symptomatology, patient is a current everyday smoker, denies any alcohol or other drug use, other past medical history is consistent with ongoing history of right small cell lung cancer, previously undergone treatment with Opdivo, has been off that for 6 months, still follows with pulmonology and hematology oncology, at 3 L nasal cannula at baseline patient was recently admitted to the right wrist on 09/18/2025, discharged on 09/19/2025, he received DuoNeb treatments, steroids Levaquin with some improvement of his symptomatology, was discharged on steroid (prednisone 40 mg p.o. daily) taper finished last dose today, other past medical history consistent with COPD, hypertension, MDD/TAVIA. Initial triage vitals noted for tachycardia, otherwise SpO2 was 9495% on 3 L nasal cannula which patient baseline. Given his improvement with breathing treatment in the ER, medicine consulted to evaluate for possible admission versus discharge recommendations. [facility] Disclaimer: The information contained in this section may have been updated after the patient was seen, as this information can be updated by other users. Medical History Hypomagnesemia Hypocalcemia Hypomagnesemia Hypocalcemia COPD exacerbation Hypocalcemia Acute exacerbation of chronic obstructive pulmonary disease Acute on chronic hypoxic respiratory failure Asthma exacerbation in COPD Shortness of breath Acute exacerbation of chronic obstructive pulmonary disease Dyspnea On home oxygen therapy Acute and chronic respiratory failure with hypercapnia Acute exacerbation of chronic obstructive airways disease Community acquired pneumonia Bilateral impacted cerumen Tinnitus Hearing loss Lung nodule Hilar lymphadenopathy Pneumonia Sleep apnea Emphysema/COPD Chronic cough Bronchitis Allergies History of anemia Lung collapse Nodule of right lung Tobacco abuse disorder Tobacco abuse counseling Small cell lung cancer Smoking greater than 30 pack years Chronic hypoxemic respiratory failure COPD (chronic obstructive pulmonary disease) Dyspnea on exertion On home O2 Sinus problem History of chemotherapy History of radiation therapy Personal history of arthritis History of lung disease Hyperlipemia Cancer Asthma Essential hypertension COPD exacerbation Surgical History History of insertion of tunneled central venous catheter (CVC) with port History of colonoscopy Hx of cardiac catheterization Normal coronary arteries History of sinus surgery Family History Other Cancer Diabetes Social History Smoking Status: Current every day smoker tobacco type: cigarettes packs per day: 1 years smoked: 50 alcohol intake: former substance use type: denies use current occupational status: retired and disabled Travel in the last 8 weeks?: None household members: spouse housing: house caffeine: Yes Have you lived/traveled outside [place] in past 30 days?: No Contact w/someone who lives/traveled outside US past 30 days?: No Exposure to someone with infectious disease in past 14 days?: No Do you have a fever (greater than 100.4 F or 38 C)?: No Have you tested positive for COVID-19?: No Exposed to someone with COVID-19 in past 14 days?: No Do you have a sore throat?: No Do you have a cough?: No Do you have any weakness?: No Do you have any diarrhea?: No Are you experiencing any unusual bleeding?: No Do you have any muscle aches/pain?: No Do you have any abdominal pain?: No Are you experiencing loss of taste or smell?: No Review of Systems Review of Systems Review of systems (narrative): 14 point review of systems performed, pertinent positives and negatives as per HPI Exam Data for Last 24 hours Vital signs and Labs for Last 24 Hours: Temp Pulse Resp BP Pulse Ox O2 Del Method O2 Flow Rate 98.4 F 111 H 22 114/64 100 Nasal Cannula 2 09/23/25 13:03 09/23/25 17:45 09/23/25 13:03 09/23/25 17:45 09/23/25 17:45 09/23/25 17:45 09/23/25 17:45 Laboratory Results - last 24 hr 09/23/25 13:13: VBG pH 7.41, VBG pCO2 52.2 H, VBG pO2 81.2 H, VBG HCO3 32.0 H, VBG Total CO2 33.7 H, VBG O2 Saturation 95.9 H, VBG Base Excess 7.3 H, VBG Lactic Acid 1.8 09/23/25 13:29: WBC 7.0, RBC 3.30 L, Hgb 9.1 L, Hct 29.1 L, MCV 88.2, MCH 27.6, MCHC 31.3 L, RDW 15.1, Plt Count 304, MPV 9.0, Neut % (Auto) 93.2 H, Lymph % (Auto) 4.4 L, Morgan % (Auto) 1.9, Eos % (Auto) 0.0 L, Baso % (Auto) 0.1, Neut # (Auto) 6.5, Lymph # (Auto) 0.3 L, Morgan # (Auto) 0.1, Eos # (Auto) 0.0, Baso # (Auto) 0.0, Total Counted 100, Neutrophils % (Manual) 95 H, Lymphocytes % (Manual) 3 L, Monocytes % (Manual) 2, Platelet Estimate Normal, RBC Morphology Normal, PT 11.1, INR 1.00, Sodium 132 L, Potassium 3.8, Chloride 92 L, Carbon Dioxide 33 H, Anion Gap 10.8, BUN 11, Creatinine 0.60 L, Estimated Creat Clear 52, Estimated GFR 134, Est GFR ( Amer) 162, Glucose 177 H, Lactate 1.5, Calcium 6.3 L, Magnesium 1.2 L, Total Bilirubin 0.3, AST 26, ALT 21, Alkaline Phosphatase 74, NT-Pro-B Natriuret Pep 502 H, Total Protein 7.0, Albumin 4.2, Globulin 2.8, Albumin/Globulin Ratio 1.5 09/23/25 : SARS-CoV-2 (PCR) Not detected, Influenza A Untype (PCR) Not detected, Influenza Type B (PCR) Not detected I & O for Last 24 hours: Intake & Output 09/20/25 09/21/25 09/22/25 09/23/25 23:59 23:59 23:59 23:59 Intake Total 50 / 50 Balance 50 / 50 Weight 52.163 kg Constitutional Constitutional: mild distress (baseline), cachectic, chronically ill appearing and cooperative *Routine HEENT Exam Head: Present normocephalic Eye: Present EOMI and PERRL ENT: Present mucous membranes moist *Routine Neck Exam Neck: Present supple; Absent lymphadenopathy Routine Chest/Breast/Axilla Exam Comments: Barrel chested *Routine Respiratory Exam Respiratory: Present prolonged expiratory phase, wheezes and diminished air movement; Absent rhonchi or crackles Comments: Intermittent pursed lips exhalation *Routine Cardiovascular Exam Cardiovascular: Present RRR *Routine Abdominal Exam Abdominal: Present soft and normoactive bowel sounds; Absent tenderness *Routine Rectal Exam Patient deferred: visual exam *Routine Exam Patient deferred: penile exam *Routine Extremities Exam Extremities: Absent cyanosis, clubbing or edema Comments: Sarcopenia, thin *Routine Skin Exam Skin: Present intact, pallor and warm; Absent rash *Routine Neurological Exam Neurological: Present alert, oriented X3 and moving all extremities; Absent sensory deficit (Light touch and pinprick present in feet bilaterally on exam) or altered mental status Meds Home Medications and Allergies Home Medications ?Medication ?Instructions ?Recorded ?Confirmed ?Type trazodone 150 mg tablet 150 mg PO HS 07/03/22 09/18/25 History aspirin 325 mg tablet 325 mg PO DAILY 05/11/23 09/18/25 History propranolol 20 mg tablet 20 mg PO BID 08/23/24 09/18/25 History calcium carbonate (Calcium 500) 1,000 mg (2 x 500 mg calcium 10/01/24 09/18/25 Rx (1,250 mg)) PO DAILY #10 tabs ferrous sulfate 325 mg (65 mg 325 mg PO DAILY #90 tabs 11/29/24 09/18/25 Rx iron) tablet albuterol sulfate 90 mcg/actuation 2 inh inhalation QID PRN shortness 07/11/25 09/18/25 Rx aerosol inhaler of breath or wheezing 90 days #8.5 grams azelastine 137 mcg (0.1 %) nasal 1 spray intranasal Q6HP PRN 08/11/25 09/18/25 History spray allergy symptoms budesonide 160 mcg-glycopyr 9 2 inh inhalation BID 90 days #10.7 08/21/25 09/18/25 Rx mcg-formot 4.8 mcg/actuation HFA grams inhaler (Breztri Aerosphere) prednisone 20 mg tablet 40 mg (2 x 20 mg) PO DAILY 4 days 09/19/25 Rx #8 tabs ipratropium 0.5 mg-albuterol 3 mg 3 ml inhalation QIDP PRN Shortness 09/21/25 Rx (2.5 mg base)/3 mL nebulization Of Breath Or Wheezing 90 days #180 soln mL azithromycin 250 mg tablet See Rx Instructions PO .COMPLEX #6 09/23/25 Rx tabs prednisone 20 mg tablet 40 mg (2 x 20 mg) PO DAILY 5 days 09/23/25 Rx #10 tabs New Prescriptions to Start Prescriptions: azithromycin SheliaTalha prednisone SheliaTalha Allergies Allergy/AdvReac Type Severity Reaction Status Date / Time silver (From Tegaderm AG Allergy Severe Rash Verified 09/12/25 09:56 Mesh) doxycycline Allergy Mild GI upset Verified 09/12/25 09:56 Penicillins (PENICILLINS) Allergy Mild Unknown Verified 09/12/25 09:56 allergy reaction amitriptyline AdvReac Intermediate gi upset Verified 09/12/25 09:56 adhesive AdvReac Rash Verified 09/12/25 09:56 hydrocodone AdvReac gi upset Verified 09/12/25 09:56 Results Labs 09/23/25 13:29 09/23/25 13:29 Labs: Abnormal lab results 09/23/25 09/23/25 Range/Units 13:13 13:29 RBC 3.30 L (4.60-6.20) M/mm3 Hgb 9.1 L (14.1-18.0) g/dL Hct 29.1 L (42.0-52.0) % MCHC 31.3 L (31.8-35.4) g/dL Neut % (Auto) 93.2 H (37.0-80.0) % Lymph % (Auto) 4.4 L (10-50) % Eos % (Auto) 0.0 L (0.1-12.0) % Lymph # (Auto) 0.3 L (0.7-4.5) K/mm3 Neutrophils % (Manual) 95 H (42-76) % Lymphocytes % (Manual) 3 L (10-50) % VBG pCO2 52.2 H (35-51) mmol/L VBG pO2 81.2 H (28-40) mmol/L VBG HCO3 32.0 H (23-30) mmol/L VBG Total CO2 33.7 H (23-27) mmol/L VBG O2 Saturation 95.9 H (50-70) % VBG Base Excess 7.3 H (-2.4-2.3) mmol/L Sodium 132 L (136-145) mmol/L Chloride 92 L (98-107) mmol/L Carbon Dioxide 33 H (22.0-30.0) mmol/L Creatinine 0.60 L (0.66-1.25) mg/dl Glucose 177 H (74-100) mg/dl Calcium 6.3 L (8.4-10.2) mg/dl Magnesium 1.2 L (1.6-2.3) mg/dl NT-Pro-B Natriuret Pep 502 H (0-125) pg/mL H & H 09/23/25 Range/Units 13:29 Hgb 9.1 L (14.1-18.0) g/dL Hct 29.1 L (42.0-52.0) % Coagulation 09/23/25 Range/Units 13:29 INR 1.00 (0.9-1.1) All other labs normal. Assessment and Plan *Assessment and plan (1) Acute exacerbation of chronic obstructive pulmonary disease: Status: Acute Category: Medical Code(s): J44.1 - Chronic obstructive pulmonary disease with (acute) exacerbation (2) Respiratory failure: Status: Acute Category: Medical Code(s): J96.90 - Respiratory failure, unspecified, unspecified whether with hypoxia or hypercapnia (3) Severe protein-calorie malnutrition: Status: Acute Category: Medical Code(s): E43 - Unspecified severe protein-calorie malnutrition (4) Pulmonary cachexia due to COPD: Status: Acute Category: Medical Code(s): R64 - Cachexia; J44.9 - Chronic obstructive pulmonary disease, unspecified (5) Cavitary lesion of lung: Status: Acute Category: Medical Code(s): J98.4 - Other disorders of lung (6) On home oxygen therapy: Status: Chronic Category: Medical Code(s): Z99.81 - Dependence on supplemental oxygen (7) Small cell lung cancer: Status: Chronic Qualifiers: Laterality: right Lung location: unspecified part of lung Qualified Code(s): C34.91 - Malignant neoplasm of unspecified part of right bronchus or lung Category: Medical Code(s): C34.90 - Malignant neoplasm of unspecified part of unspecified bronchus or lung (8) Shortness of breath: Status: Acute Category: Medical Code(s): R06.02 - Shortness of breath Plan Mr. Madera is a 70-year-old male well-known to our service with end-stage COPD, lung cancer, pulmonary cachexia. Presented to the ER with worsening shortness of breath. Responded to nebulizer treatments. He is on his baseline oxygen at 3 L. Medicine was consulted to evaluate for possible admission versus discharge home. Evaluated patient in the ER, he appears not far from his baseline. Feeling better after nebulizer and IV steroids. States he started feeling bad this afternoon after finishing his oral steroid dose this morning. Went back to smoking after going home. Has been working on 1 pack of cigarettes since getting home 3 days ago. Denies any fever or change in sputum production. Sitting in wheelchair, after interactive discussion with patient, discussed admission with nebs, steroids, inpatient treatment versus home with steroid course and increasing neb frequency to every 4 hours. Patient states he would prefer to go home. I am in agreement with this given his near return to baseline respiratory state. Informed him that if things got worse, he can always come back to the ER for reevaluation and admission. Patient states understanding. Of note, his COPD is in stage and hospice discussions have been had in the past, he is resistant to this course of treatment for now. He is however a viable candidate for hospice given the severity of his end-stage COPD and respiratory failure with superimposed lung cancer. I recommend patient is appropriate to discharge home with 40 mg p.o. daily for 5 days, increase DuoNebs every 4 hours while awake. Has follow-up with his PCP in 48 hours on Thursday. If condition worsens, return to hospital. Thank you for the opportunity to consult on this patient.
== END 2025-09-23 18:49 | disposition home or self-care (01) ==
PROVIDERS: Physician Assistant; Emergency Provider Student in an Organized Health Care Education/Training Program; PCP Internal Medicine Adolescent Medicine
DX: J44.1 Chronic obstructive pulmonary disease with (acute) exacerbation (principal); J96.90 Respiratory failure, unspecified, unspecified whether with hypoxia or hypercapnia; E43 Unspecified severe protein-calorie malnutrition; R64 Cachexia; J44.9 Chronic obstructive pulmonary disease, unspecified; J98.4 Other disorders of lung; Z99.81 Dependence on supplemental oxygen; C34.91 Malignant neoplasm of unspecified part of right bronchus or lung
CPT/HCPCS: 71045; 71275; 80053; 82803; 83605; 83735; 83880; 85007; 85025; 85610; 87636; 93005; 96365; 96375; 99285; J2919; J3475; Q9967

== ENCOUNTER 2025-09-24 15:41 | Inpatient (IN) | payer MEDICARE, SELFPAY ==
--- OUTSIDE RECORDS SUMMARY | 2024-11-28 09:00 | XMS_ITS ---
Author Organization [facility] Address [address] [facility] [address] [place] [address] Care Team Providers Care Sandwich Artist Name Role Phone Main Carrington Primary Care Provider Main Carrington Unavailable Unavailable REASON FOR VISIT hospital stay Encounters Encounter Location Date Provider Diagnosis [facility] [address] [place], [place] [address] 11/28/2024 Main Carrington Plan Of Treatment Next Appt Details Provider Name:Main Carrington, 09/25/2025 10:45:00 AM, [address] [facility], [address], [place], [address], Provider Name:Main Carrington, 10/09/2025 10:15:00 AM, [address] [facility], [address], [place], [place], [address], Progress Notes * Alejandro MADERA SDOB:[birth year] (70 yo M)Acc No.[id number]:11/28/2024 Progress Notes Patient: Alejandro LEUNG Provider: Brit Carrington MD :1955 A ge:69 Y S ex:Male Date:11/28/2024 Address:[address], [place], [id number] Subjective: * Chief Complaints: * 1 . Hospital stay. * Medical History: Objective: * Vitals: Assessment: Plan: * Treatment: * * Electronic signature of Say Carrington MD FAAP on 09/24/2025 at 03:52 PM EST Sign off status: Pending * Provider: Brit Carrington MD Date: 0 11/28/2024 Generated for Phillip smith/Leigha/Caspersmitting on: 11/24/2024 03:52 PM EST
--- OUTSIDE RECORDS SUMMARY | 2025-02-11 16:30 | XMS_ITS ---
Author Organization [facility] PE D [facility] Address [address] [facility] [address] [place] [address] Care Team Providers Care Gel Coat Sprayer Name Role Phone Main Carrington Primary Care Provider Main Carrington Unavailable Unavailable Migration, Provider Unavailable Unavailable Allergies Allergen (clinical drug ingredient) Drug/Non Drug Allergy documented on EMR Reaction Allergy Type Onset Date Status Penicillin Unknown Drug Allergy Active REASON FOR VISIT Multum To [facility] Conversion Encounter Medications Medication SIG (Take, Route, Frequency, Duration) Notes Start Date End Date Status Azithromycin 250 MG one tab oral on Thursday; Duration: 30 days 11/08/2024 Active traZODone HCl 150 MG 1 tab(s) orally onc e a day (at bedtime); Duration: 90 days Active ALBUTEROL (EQV-PROAIR HFA) 90 MCG/INH 2 PUFF(S) INHALED EVERY 6 HOURS PRN; Duration: 30 DAYS *Please review for potential replacement for e-prescription and drug interaction check* Active Azelastine HCl 137 MCG/SPRAY 2 spray(s) intranasally 2 times a day; Duration: 30 days prn Active Propranolol HCl 20 MG 1 tab(s) orally 2 times a day; Duration: 30 days 08/08/2024 Active Ferrous Sulfate 325 (65 Fe) MG 1 tab(s) orally once a day Active Calcium 500 MG 1 TAB TID *Please review a nd pick correct strength-formulati [facility] options. If intended option is not shown, discontinue and re-order from Quick Search* Active Vitamin D (Ergocalciferol) 1.25 MG (35237 UT) 1 cap(s) orally once a week Active Ipratropium-Albutero l 0.5-2.5 (3) MG/3ML 3 mL by nebulizer 4 times a day Active Trelegy Ellipta 200 MCG-62.5 MCG-25 MCG/INH 1 PUFF(S) INHALED ONCE A DAY *Please review and pick correct strength-formulati on from [employer] options. If intended option is not shown, discontinue and re-order from Quick Search* Active Encounters Encounter Location Date Provider Diagnosis [facility] IM PED MENA [address] [facility] 36 [facility] [address] [place] [address] 02/11/2025 Provider Migration COPD, group D, by GOLD 2017 classification J44.9 Assessments Encounter Date Diagnosis (ICD Code) Assessment Notes Treatment Notes Treatment Clinical Notes Section Notes 02/11/2025 COPD, group D, by GOLD 2017 classification (ICD-10 - J44.9) Plan Of Treatment Medication Medication Name Sig Start Date Stop Date Notes Azithromycin 250 MG one tab oral on ay Thursday; Duration: 30 days 11/08/2024 traZODone HCl 150 MG 1 tab(s) orally onc e a day (at bedtime); Duration: 90 days Next Appt Details Provider Name:Main Carrington, 09/25/2025 10:45:00 AM, [address] [facility] 36 [facility] [address], [place], [address], Provider Name:Main Carrington, 10/09/2025 10:15:00 AM, [address] [place] [address] [address], [place], [address], Progress Notes * Alejandro MADERA SDOB:[birth year] (70 yo M)Acc No.[id number]:02/11/2025 Patient: Alejandro LEUNG Provider: Michael Fonseca :1955 A ge:69 Y S ex:Male Date:02/11/2025 Address:[address] [place], [place] [address], [place], [id number] Pcp:Main Carrington Subjective: * Chief Complaints: * 1 . [facility] Encounter. * Medical History: * Medications: T aking Ferrous Sulfate 325 (65 Fe) MG Tablet 1 tab(s) orally once a day , Taking Calcium 500 MG 1 TAB TID , Notes to Pharmacist: *Please review and pick correct strength-formulation from [facility] options. If intended option is not shown, discontinue and re-order from Quick Search*, Taking Vitamin D (Ergocalciferol) 1.25 MG (50053 UT) Capsule 1 cap(s) orally once a week , Taking Ipratropium-Albuterol 0.5-2.5 (3) MG/3ML Solution 3 mL by nebulizer 4 times a day , Taking Trelegy Ellipta 200 MCG-62.5 MCG-25 MCG/INH POWDER 1 PUFF(S) INHALED ONCE A DAY , Notes to Pharmacist: *Please review and pick correct strength-formulation from [employer] options. If intended option is not shown, discontinue and re-order from Quick Search*, Taking ALBUTEROL (EQV-PROAIR HFA) 90 MCG/INH AEROSOL 2 PUFF(S) INHALED EVERY 6 HOURS PRN , Notes to Pharmacist: *Please review for potential replacement for e-prescription and drug interaction check*, Taking Azelastine HCl 137 MCG/SPRAY Solution 2 spray(s) intranasally 2 times a day , Notes to Pharmacist: prn, Taking Propranolol HCl 20 MG Tablet 1 tab(s) orally 2 times a day * Allergies: P enicillin. Objective: * Vitals: Assessment: * Assessment: 1. C OPD, group D, by GOLD 2017 classification - J44.9 Plan: * Treatment: 2. O thers Start traZODone HCl Tablet, 150 MG, 1 tab(s), orally, once a day (at bedtime), 90 days, 90, Refills 1. * * Electronic signature of Prov ider Migration on 09/24/2025 at 03:52 PM EST Sign off status: Pending * Provider: Michael pal Migration Date: 0 02/11/2025 Generated for Phillip smith/Leigha/Codyitting on: 11/24/2024 03:52 PM EST
--- OUTSIDE RECORDS SUMMARY | 2025-08-01 04:45 | XMS_ITS ---
Author Organization [facility] Address [address] [place] [address] Care Team Providers Care Hairspring Fabrication Supervisor Name Role Phone Main Carrington Primary Care Provider Main Carrington Unavailable Unavailable Cathie Musa Unavailable [phone] Allergies Allergen (clinical drug ingredient) Drug/Non Drug Allergy documented on EMR Reaction Allergy Type Onset Date Status Penicillin Unknown Drug Allergy Active Results Component Value Reference Range Notes X ray : Chest Reviewed date:08/04/2025 01:16:50 PM Interpretation: Performing Lab: Notes/Report: X ray : Rib Series, Left Reviewed date:08/07/2025 03:36:10 PM Interpretation: Performing Lab: Notes/Report: REASON FOR VISIT Had a fall, pain spreading Medications Medication SIG (Take, Route, Frequency, Duration) Notes Start Date End Date Status Tamsulosin HCl 0.4 MG 1 capsule Orally O nce a day; Duration: 90 days 05/01/2025 Active Colace 100 MG 2 caps Orally Once a day; Duration: 30 days 06/05/2025 Active traZODone HCl 150 MG 1 tab(s) orally onc e a day (at bedtime); Duration: 90 days Active Propranolol HCl 20 MG 1 tab(s) orally 2 times a day; Duration: 30 days 08/08/2024 Active traMADol HCl 50 MG 1 tablet as needed f or mod-severe pain Orally every 8 hrs; Duration: 7 days 08/01/2025 Active Ferrous Sulfate 325 (65 Fe) MG 1 tab(s) orally once a day A ctive Calcium 600 MG 1 TAB oral daily Active Ipratropium-Albuterol 0.5-2.5 (3) MG/3ML 3 mL by nebulizer 4 times a day Active ALBUTEROL (EQV-PROAIR HFA) 90 MCG/INH 2 PUFF(S) INHALED EVERY 6 HOURS PRN; Duration: 30 DAYS Active Azelastine HCl 137 MCG/SPRAY 2 spray(s) intranasally 2 times a day; Duration: 30 days prn Active Breztri Aerosphere 160-9-4.8 MCG/ACT 2 puffs Inhalation Twice a day Active Vital Signs Temperature 97.0 degrees Fahrenheit 08/01/20 25 Blood pressure systolic 110 mm Hg 08/01/20 25 Blood pressure diastolic 76 mm Hg 025 Heart Rate 92 /min 08/01/2025 Height 5 ft 10 in in 08/01/2025 Weight 117 lbs 08/01/2025 BMI 16.79 kg/m2 08/01/2025 Oximetry 97 08/01/2025 Encounters Encounter Location Date Provider Diagnosis [facility] [address] [place] [address] 08/01/2025 Cathie Musa Acute traumatic pain G89.11 ; Left-sided chest wall pain R07.89 and Oxygen dependent Z99.81 Assessments Encounter Date Diagnosis (ICD Code) Assessment Notes Treatment Notes Treatment Clinical Notes Section Notes 08/01/2025 Acute traumatic pain (ICD-10 - G89.11) JONATAN requested. Risks a/w use reviewed. Strict return precautions reviewed. We discussed imaging which he declines at this point but I did go ahead and give him an order and recommended that he obtain it should any of his symptoms get worse with respect to pain or dyspnea or cough. He voices understanding. We discussed other pain relieving measures including Tylenol, topical lidocaine, heat and splinting during cough or deep breathing 08/01/2025 Left-sided chest wall pain (ICD-10 - R07.89) 08/01/2025 Oxygen dependent (ICD-10 - Z99.81) Plan Of Treatment Medication Medication Name Sig Start Date Stop Date Notes traMADol HCl 50 MG 1 tablet as needed f or mod-severe pain Orally every 8 hrs; Duration: 7 days 08/01/2025 Next Appt Details Follow Up: prn, Reason: Provider Name:Main Carrington, 09/25/2025 10:45:00 AM, [address] [facility] [address] [facility], [address], [place], [address], Provider Name:Main Carrington, 10/09/2025 10:15:00 AM, [facility] [address] [facility], [address], [place], [address], Progress Notes * Alejandro MADERA SDOB:[birth year] (70 yo M)Acc No.[id number]:08/01/2025 Progress Notes Patient: Alejandro LEUNG Provider: ROBERTO Umaña :1955 A ge:70 Y S ex:Male Date:08/01/2025 Address:[address] [place], [place] [id number] Pcp:Main Carrington Subjective: * Chief Complaints: * 1 . Had a fall, pain spreading. * HPI: g en: 70 yr old male with lung cancer and advanced COPD on supplemental oxygen therapy presents following a fall at his home that happened 1 week ago yesterday. No significant pain at onset but significant pain developed within about 48 hours and has persisted/intensified. Pain around the ribs, pain with deep breathing. No fevers. No cough more than usual. * ROS: C ONSTITUTIONAL: no F ever. * Medical History: R LS, HTN, COPD, Lung/ Liver cancer, Partially Collapsed right lung, 3L oxygen. * Medications: T aking Breztri Aerosphere 160-9-4.8 MCG/ACT Aerosol 2 puffs Inhalation [...] orally 2 times a day , Taking Tamsulosin HCl 0.4 MG Capsule 1 capsule Orally Once a day , Taking Colace 100 MG Capsule 2 caps Orally Once a day , Taking traZODone HCl 150 MG Tablet 1 tab(s) orally once a day (at bedtime) , Medication List reviewed and reconciled with the patient * Allergies: P enicillin. Objective: * Vitals: N urse: be, Pain: 5, Temp: 97.0, Pulse O2: 97, RR: 28, HR: 92, BP: 110/76, Ht: 5 ft 10 in, Wt: 117, BMI:16.79. * Examination: G eneral Examination: General p leasant, cachectic appearing, on O2 by NC. Oral cavity: M oist membranes, Poor dentition. Chest: l eft sided chest wall pain without crepitus anterior to posterior axillary line, no ecchymosis. Heart: R egular Rate and Rhythm, distant. Lungs: d iffusely diminished, faint rhonchi. Abdomen: s oft, +BS. Extremities: n o edema. Psych N ormal Mood/Affect. Assessment: * Assessment: 1. A cute traumatic pain - G89.11 (Primary) 2 . L eft-sided chest wall pain - R07.89 3 . O xygen dependent - Z99.81 Plan: * Treatment: * ?Imaging: X ray : Rib Series, Left* Ed Ferris R 08/04/2025 1 1:09:40 AM EDT >This DI was reviewed by Verona Wiggins on 08/07/2025 at 15:36 PM EDT * Clinical Notes: JONATAN requested. Risks a/w use reviewed. Strict return precautions reviewed. We discussed imaging which he declines at this point but I did go ahead and give him an order and recommended that he obtain it should any of his symptoms get worse with respect to pain or dyspnea or cough. He voices understanding. We discussed other pain relieving measures including Tylenol, topical lidocaine, heat and splinting during cough or deep breathing??2.?Left- sided chest wall pain?Imaging: X ray : Chest* Ed Ferris R 08/04/2025 1 1:06:10 AM EDT >This DI was reviewed by Cathie Musa on 08/04/2025 at 13:16 PM EDT * ?Imaging: X ray : Rib Series, Left* Ed Ferris R 08/04/2025 1 1:09:40 AM EDT >This DI was reviewed by Verona Wiggins on 08/07/2025 at 15:36 PM EDT * 3.?Oxygen dependent?Imaging: X ray : Chest* Ed Ferris R 08/04/2025 1 1:06:10 AM EDT >This DI was reviewed by Cathie Musa on 08/04/2025 at 13:16 PM EDT * ?Imaging: X ray : Rib Series, Left* Ed Ferris R 08/04/2025 1 1:09:40 AM EDT >This DI was reviewed by Verona Wiggins on 08/07/2025 at 15:36 PM EDT * * Follow Up: p rn * * Sign off status: Completed true * Provider: ROBERTO Umaña Date: 0 08/01/2025 Generated for Phillip smith/Leigha/Henry on: 1 11/24/2024 03:53 PM EST History and Physical Notes * Examination Category Sub-Category Detail Notes Category Not es General Examination Heart: Regular Rate and Rhyt hm, distant Lungs: diffusely diminished , faint rhonchi Abdomen: soft, +BS Extremities: no edema Oral cavity: Moist membranes, Poo r dentition Chest: left sided chest wal l pain without crepitus anterior to posterior axillary line, no ecchymosis General pleasant, cachectic appearing, on O2 by NC Psych Normal Mood/Affect
--- OUTSIDE RECORDS SUMMARY | 2025-08-18 05:45 | XMS_ITS ---
Author Organization [facility] Address [address] [facility] [address] [place] [address] Care Team Providers Care Contemporary Or Modern Dancer Name Role Phone Main Carrington Primary Care Provider Main Carrington Unavailable Unavailable Allergies Allergen (clinical drug ingredient) Drug/Non Drug Allergy documented on EMR Reaction Allergy Type Onset Date Status Penicillin Unknown Drug Allergy Active REASON FOR VISIT Discharged from [facility] on 08/11/2025 Medications Medication SIG (Take, Route, Frequency, Duration) Notes Start Date End Date Status traZODone HCl 150 MG 1 tab(s) orally onc e a day (at bedtime); Duration: 90 days Active Amoxicillin-Pot Clavulanate 875-125 MG 1 tablet Orally every 12 hrs Active Colace 100 MG 2 caps Orally Once a day; Duration: 30 days 06/05/2025 Active traMADol HCl 50 MG 1 tablet as needed f or mod-severe pain Orally every 8 hrs; Duration: 7 days 08/01/2025 Active Tamsulosin HCl 0.4 MG 1 capsule Orally O nce a day; Duration: 90 days 05/01/2025 Active Azelastine HCl 137 MCG/SPRAY 2 spray(s) intranasally 2 times a day; Duration: 30 days prn Active ALBUTEROL (EQV-PROAIR HFA) 90 MCG/INH 2 PUFF(S) INHALED EVERY 6 HOURS PRN; Duration: 30 DAYS Active Propranolol HCl 20 MG 1 tab(s) orally 2 times a day; Duration: 30 days 08/08/2024 Active Ipratropium-Albuterol 0.5-2.5 (3) MG/3ML 3 mL by nebulizer 4 times a day Active Calcium 600 MG 1 TAB oral daily Active Ferrous Sulfate 325 (65 Fe) MG 1 tab(s) orally once a day A ctive Lorenzotri Aerosphere 160-9-4.8 MCG/ACT 2 puffs Inhalation Twice a day Active predniSONE 20 MG 1 tablet with food o r milk Orally Once a day Active Immunizations Vaccine Route Administration Date Status Comme nts Fluzone High Dose IM Intramuscular 08/18/2025 Administered Social History Tobacco Use: Social History [...] Problem Status W/U Status Risk Notes Problem Acute exacerbation of chronic obstructive airways disease ([id number]) COPD with exacerbation (J44.1) Active confirmed Vital Signs Temperature 97.7 degrees Fahrenheit 08/18/20 25 Blood pressure systolic 126 mm Hg 08/18/20 25 Blood pressure diastolic 84 mm Hg 025 Heart Rate 80 /min 08/18/2025 Height 5 ft 10 in in 08/18/2025 Weight 114 lbs 08/18/2025 BMI 16.36 kg/m2 08/18/2025 Oximetry 99 08/18/2025 Encounters Encounter Location Date Provider Diagnosis [facility] [address] [place] [address] 08/18/2025 Main Brendason Lobar pneumonia J18. 1 ; COPD with exacerbation J44.1 ; Hospital discharge follow-up Z09 and Immunization(s) administered Z23 Assessments Encounter Date Diagnosis (ICD Code) Assessment Notes Treatment Notes Treatment Clinical Notes Section Notes 08/18/2025 Lobar pneumonia (ICD-10 - J18.1) Appears stable/improving. Continue current antibiotic therapy, follow-up with pulmonary. I will see him on August 28 for follow-up. 08/18/2025 COPD with exacerbation (ICD-10 - J44.1) Done with prednisone, pulmonary did not recommend continuing. Emphasized need for continuing compliance with oxygen and nebs. Unfortunately continues to smoke 08/18/2025 Hospital discharge follow-up (ICD-10 - Z09) Personally reviewed H&P and discharge summary as available from hospital discharge documentation. Reviewed pertinent labs and test done in the hospital. Personally reconciled medication. 08/18/2025 Immunization(s) administered (ICD-10 - Z23) Plan Of Treatment Treatment Notes Assessment Notes Lobar pneumonia Appears stable/improving. Continue current antibiotic therapy, follow-up with pulmonary. I will see him on August 28 for follow-up. COPD with exacerbation Done with prednis one, pulmonary did not recommend continuing. Emphasized need for continuing compliance with oxygen and nebs. Unfortunately continues to smoke Hospital discharge follow-up Personally reviewed H&P and discharge summary as available from hospital discharge documentation. Reviewed pertinent labs and test done in the hospital. Personally reconciled medication. Next Appt Details Follow Up: prn,1 Week, Reaso n: Provider Name:Main Carrington, 09/25/2025 10:45:00 AM, [address], [address], [place], [address], Provider Name:Main Carrington, 10/09/2025 10:15:00 AM, [address], [address], [place], [address], Progress Notes * Alejandro MADERA SDOB:[birth year] (70 yo M)Acc No.[id number]:08/18/2025 HOSP F/U Patient: Marty LEUNGley S Provider: Brit Carrington MD :[id number] A ge:70 Y S ex:Male Date:08/18/2025 Address:[address] [place] [address], [id number] Subjective: * Chief Complaints: * 1 . Discharged from [facility] on 08/11/2025. * HPI: I ntrim History: Transition of care visit from hospital D ate of admission to hospital: 1 , D ate of receipt of hospital admission report: 1 ,?Date of discharge from hospital: 1 , D ate of receipt of hospital discharge summary: 1 , D ischarge medications reviewed and reconciled from hospital: M edications left unchanged. Admitted through ER with respiratory distress, found to have infection with Rothia organism and was discharged on Augmentin for 14 days. Had new necrotic upper lobe lesion. Saw pulmonary on August 16, minimal improvement. They will do another CT scan in 4 weeks and see if he needs bronchoscopy. He feels about the same as on discharge which was better than previous. Has finished prednisone. * Medical History: R LS, HTN, COPD, Lung/ Liver cancer, Partially Collapsed right lung, 3L oxygen. * Surgical History: p ort installed 12/2022. * Hospitalization/Major Diagno stic Procedure: H - COPD EXACERBATION 06/10/24-06/12/24, [facility]- COPD , [facility]- COPD 09/2024, [facility]-COPD 11/2024, [facility]-COPD 08/2025. * Family History: F ather: . M other: . P aternal Grand Father: . P aternal Grand Mother: . M aternal Grand Father: . M aternal Grand Mother: . Paternal uncle: unknown. P aternal aunt: unknown. M aternal uncle: . M aternal aunt: . S selene: alive, multiple sclerosis, diagnosed with Diabetes. C julito: alive, diagnosed with Diabetes, Heart Disease. 5 [...] no. Occupation: Retired. * Medications: T aking Amoxicillin-Pot Clavulanate 875-125 MG Tablet 1 tablet Orally every 12 hrs , Taking predniSONE 20 MG Tablet 1 tablet with food or milk Orally Once a day , Taking Breztri Aerosphere 160-9-4.8 MCG/ACT Aerosol 2 puffs [...] once a day (at bedtime) , Taking traMADol HCl 50 MG Tablet 1 tablet as needed for mod-severe pain Orally every 8 hrs , Discontinued Doxycycline Hyclate 100 MG Capsule 1 capsule Orally Once a day , Medication List reviewed and reconciled with the patient * Allergies: P enicillin. Objective: * Vitals: N urse: be, Pain: 5, Temp: 97.7, Pulse O2: 99, RR: 24, HR: 80, BP: 126/84, Ht: 5 ft 10 in, Wt: 114, BMI:16.36. * Examination: G eneral Examination: General p [...] N ormal Mood/Affect. Assessment: * Assessment: 1. L obar pneumonia - J18.1 (Primary) 2 . C OPD with exacerbation - J44.1? 3. H ospital discharge follow-up - Z09 4 . I mmunization(s) administered - Z23 Plan: * Treatment: 2. C OPD with exacerbation Notes: Done with prednisone, pulmonary did not recommend continuing. Emphasized need for continuing compliance with oxygen and nebs. Unfortunately continues to smoke 3. H ospital discharge follow-up Notes: Personally reviewed H&P and discharge summary as available from hospital discharge documentation. Reviewed pertinent labs and test done in the hospital. Personally reconciled medication. * Immunizations: Fluzone High Dose : 0.7 mL (Route: Intramuscular) given by SHARON Montoya on Left Deltoid (Immunization(s) administered) * Procedure Codes: 9 0662 Influenza High Dose Vaccine >65 Years Old, Units: 1.40 , G0008 ADMINISTRATION-FLU VACCINE MEDICARE ONLY, 33825 TRANS CARE MGMT 7 DAY DISCH, Modifiers: 25 , 1111F DSCHR MED/CURENT MED MERGE * Follow Up: p rn,1 Week * * Sign off status: Completed true * Provider: Brit Carrington MD Date: 1 Generated for Phillip smith/Leigha/eTransmitting on: 11/24/2024 03:53 PM EST History and Physical Notes * HPI (History of Present Illness) Category Sub-Category Detail Notes Category Not es Intrim History Transition of care visit from hospital Date of admission to hospital:: 08/10/2025 Admitted through ER with respiratory distress, found to have infection with Rothia organism and was discharged on Augmentin for 14 days. Had new necrotic upper lobe lesion. Saw pulmonary on August 16, minimal improvement. They will do another CT scan in 4 weeks and see if he needs bronchoscopy. He feels about the same as on discharge which was better than previous. Has finished prednisone. Date of receipt of hospital admission re port:: 08/11/2025 Date of discharge from hospital:: 2024 Date of receipt of hospital discharge han mmary:: 08/11/2025 Discharge medications review ed and reconciled from hospital:: Medications left unchanged Examination Category Sub-Category Detail Notes Category Not [...]
--- OUTSIDE RECORDS SUMMARY | 2025-08-21 06:30 | XMS_ITS ---
Author Organization [facility] Address [address] [facility] [address] [place] [address] Care Team Providers Care Dough Puncher Name Role Phone Main Carrington Primary Care Provider [phone] Main Carrington Unavailable Unavailable REASON FOR VISIT 3 Month F/U Encounters Encounter Location Date Provider Diagnosis [facility] [address] [place] [address] 08/21/2025 Main Carrington Plan Of Treatment Next Appt Details Provider Name:Main Carrington, 09/25/2025 10:45:00 AM, [address] [facility], [address], [place], [place], [address], Provider Name:Main Carrington, 10/09/2025 10:15:00 AM, [address] [facility], [address], [place], [place], [address], Progress Notes * Alejandro MADERA SDOB:[birth year] (70 yo M)Acc No.[id number]:08/21/2025 Progress Notes Patient: Alejandro LEUNG Provider: Brit Carrington MD :1955 A ge:70 Y S ex:Male Date:08/21/2025 Address:[address] [place] [address] [place], [place], [id number] Subjective: * Chief Complaints: * 1 . 3 Month F/U. * Medical History: Objective: * Vitals: Assessment: Plan: * Treatment: * * Electronic signature of Say Carrington MD FAAP on 09/24/2025 at 03:52 PM EST Sign off status: Pending * Provider: Brit Carrington MD Date: Generated for Phillip smith/Leigha/Henry on: 11/24/2024 03:52 PM EST
--- OUTSIDE RECORDS SUMMARY | 2025-08-28 05:15 | XMS_ITS ---
Author Organization [facility] Address [address] [facility] [address] [place] [address] Care Team Providers Care Bpm Developer Name Role Phone Main Carrington Primary Care Provider [phone] Main Carrington Unavailable Unavailable Allergies Allergen (clinical [...] 08/28/2025 Encounters Encounter Location Date Provider Diagnosis [facility] [address] [place] [address] 08/28/2025 Main Carrington COPD, group D, by [address], [place], [address], Provider Name:Main Ureña Zeb, 10/09/2025 10:15:00 AM, [address], [address], [place], [address], Progress Notes * Alejandro MADERA SDOB:[birth year] (70 yo M)Acc No.[id number]:08/28/2025 Progress Notes Patient: Alejandro LEUNG Provider: Brit Carrington MD :1955 A ge:70 Y S ex:Male Date:08/28/2025 Address:[address] [place] [address] [place], [place], [id number] Subjective: * Chief Complaints: * 1 . [...] MH- COPD EXACERBATION 06/10/24-06/12/24, [facility]- COPD , [facility]- COPD 09/2024, [facility]-COPD 11/2024, [facility]-COPD 08/2025. * [...] MD Date: Generated for Phillip smith/Leigha/eTransmitting on: 11/24/2024 03:53 [...]
[2025-09-24] VITALS (12 sets, daily range): BP systolic 130–189; BP diastolic 51–119; PULSE 51–132; RESP 16–30; TEMP 36.7–37.1; O2SAT 89–100; BMI 22.9
--- NOTE | 2025-09-24 15:53 | ECG_ITS ---
APPROVED REPORT Exam: Resting ECG HR:122 bpm ECG Measurements Heart Rate 122 AXES AZ 131 P 75 QRSd 94 QRS 74 QT 315 T 51 QTc 387 Conclusion Sinus tachycardia without acute ST or T wave changes concerning for ischemia Electronically signed by : Kathi Isabel, 09/25/2025 00:36:55
--- OUTSIDE RECORDS SUMMARY | 2025-09-24 15:53 | XMS_ITS | Clinical Summary ---
Author Organization [facility] Address [address] [place] [address] Care Team Providers Care [employer] Name Role Phone Unavailable Primary Care Provider [...] ADRIENNE ESTRADA Released Date Time- 02/24/15 1234 Mold Carpenter- LJosefina Procedure Note Adrienne Avendaño MD - [...] ADRIENNE ESTRADA Released Date Time- 02/24/15 1234 Mold Carpenter- Sariah us Talha Carrasco MD IMG CT ORDERABLES Final Res ult from Last 3 Months or Most Recently Relevant to Health Maintenance
--- OUTSIDE RECORDS SUMMARY | 2025-09-24 15:53 | XMS_ITS | Encounter Summary ---
Author Organization Healthcare Address [address] [place] [address] Care Team Providers Care Adolescent Counselor Name Role Phone Main Kyle MD Primary Care Provider [phone] Encounter Details Date Type Department Care Team (Late st Contact Info) Description 06/16/2019 Abstract [facility] [id number] [place] [address] Radiation Oncology, Physician, [address] [place] [address] Social History Tobacco Use Types Packs/Day Years [...] on filedocumented in this encounter Care Teams Adolescent Counselor Relationship Specialty Start Date End Date Main Kyle MD [address] [place] [id number] PCP - General 03/22/21 documented as of this encounter
--- OUTSIDE RECORDS SUMMARY | 2025-09-24 15:53 | XMS_ITS | Patient Health Record ---
Author Organization [facility] Address [address] [place] [address] Care Team Providers Care Bias Binding Cutter Name Role Phone Main Carrington Primary Care Provider Main Carrington Unavailable Unavailable Cathie Musa Unavailable [phone] Cathie Chang Unavailable [phone] Migration, Provider Unavailable Unavailable Allergies Allergen (clinical drug ingredient) Drug/Non Drug Allergy documented on EMR Reaction Allergy Type Onset Date Status Penicillin Unknown Drug Allergy Active Results Component Value Reference Range Notes BASIC METABOLIC PANEL (89274 ) Reviewed date:10/12/2024 08:42:36 AM Interpretation: Performing Lab:CB, [facility] Olov9909 [facility], [facility] CenterEcfuKY[address] [place] Notes/Report: NON-FASTING; NON-FASTING GLUCOSE 80 [...] Reviewed date:10/12/2024 08:42:36 AM Interpretation: Performing Lab:[facility] [employer] Solutionse[address] [employer], Boost Your CampaignPekmRB[address] [place] Notes/Report: NON-FASTING; NON-FASTING VITAMIN D,25-OH,TOTAL,IA 43 30-100 ng/mL Vitamin D Status 25-OH Vitamin D: Deficiency: <20 ng/mL Insufficiency: 20 - 29 ng/mL Optimal: > or = 30 ng/mL For 25-OH Vitamin D testing on patients on D2-supplementation and patients for whom quantitation of D2 and D3 fractions is required, the QuestAssureD(TM) 25-OH VIT D, (D2,D3), LC/MS/MS is recommended: order code 77673 (patients >2yrs). See Note 1 Note 1 For additional information, please refer to http://education.Fashioholic/faq/WMF187 (This link is being provided for informational/ educational purposes only.) PTH, INTACT WITHOUT CALCIUM (63806) Reviewed date:10/12/2024 08:42:36 AM Interpretation: Performing Lab:[facility] [employer]se13[address] [employer], Boost Your CampaignRlflHW[address] [place] Notes/Report: NON-FASTING PARATHYROID HORMONE, INTACT <6 16-77 pg/mL Interpretive Guide Intact PTH Calcium ------- Normal Parathyroid Normal Normal Hypoparathyroidism Low or Low Normal Low Hyperparathyroidism Primary Normal or High High Secondary High Normal or Low Tertiary High High Non-Parathyroid Hypercalcemia Low or Low Normal High BASIC METABOLIC PANEL (07382 ) Reviewed date:12/21/2024 02:53:46 PM Interpretation: Performing Lab:MAR[facility] Twitmusice1355 Mintigo[address] [place] Notes/Report: NON-FASTING GLUCOSE 86 65-99 [...] 37 20-32 mmol/L CALCIUM 7.8 8.6-10.3 mg/dL THYROID PANEL WITH TSH (7444 ) Reviewed date:02/22/2025 10:41:38 AM Interpretation: Performing Lab:MARIOLA, Viraliti355 [employer], OuterBay TechnologiesJezdPA[address] [place] Julian Notes/Report: NON-FASTING; NON-FASTING; NON-FASTING; NON-FASTING; NON-FAST T3 UPTAKE 28 22-35 % T4 (THYROXINE), TOTAL 7.8 4.9-10.5 mcg/dL FREE T4 INDEX (T7) 2.2 1.4-3.8 TSH 1.30 0.40-4.50 mIU/L COMPREHENSIVE METABOLIC PANE L (27369) Reviewed date:02/22/2025 10:41:38 AM Interpretation: Performing Lab:MARIOLA, [employer]se1355 [employer], OuterBay TechnologiesNmlnTL[address] [place] Notes/Report: NON-FASTING; NON-FASTING; NON-FASTING; NON-FASTING; [...] Reviewed date:02/22/2025 10:41:39 AM Interpretation: Performing Lab:[facility] [employer] Xvje7455 [facility], [facility] HospitalLhluBU[address] Mefsin Julian Notes/Report: NON-FASTING; NON-FASTING; NON-FASTING; NON-FASTING; NON-FAST [...] MPV 10.0 7.5-12.5 fL ABSOLUTE NEUTROPHILS 3640 5853-7499 cells/uL ABSOLUTE LYMPHOCYTES 3243 973-2062 cells/uL ABSOLUTE MONOCYTES 549 200-950 cells/uL ABSOLUTE EOSINOPHILS 291 15-500 cells/uL ABSOLUTE BASOPHILS 28 0-200 cells/uL NEUTROPHILS 65 LYMPHOCYTES 19.5 MONOCYTES 9.8 EOSINOPHILS 5.2 BASOPHILS 0.5 VITAMIN B12/FOLATE, SERUM HI HUGH (7065) Reviewed date:02/22/2025 10:41:39 AM Interpretation: Performing Lab:[facility] [employer] Jjjp6521 [facility], [facility] CenterMgpmPD[address] [place] Julian Notes/Report: NON-FASTING; NON-FASTING; NON-FASTING; NON-FASTING; NON-FAST VITAMIN B12 874 170-8650 pg/mL FOLATE, SERUM >24.0 Reference Range Low: <3.4 Borderline: 3.4-5.4 Normal: >5.4 VITAMIN D,25-OH,TOTAL,IA (17 306) Reviewed date:02/22/2025 10:41:39 AM Interpretation: Performing Lab:CB, [facility] [address], Dontae GilesPujgZW[address] [place] Notes/Report: NON-FASTING; NON-FASTING; NON-FASTING; NON-FASTING; [...] D, (D2,D3), LC/MS/MS is recommended: order code 74611 (patients >2yrs). See Note 1 Note 1 For additional information, please refer to http://education.Fashioholic/faq/KKE381 (This link is being provided for informational/ educational purposes only.) X ray : Chest Reviewed date:08/04/2025 01:16:50 PM Interpretation: Performing Lab: Notes/Report: X ray : Rib Series, Left Reviewed date:08/07/2025 03:36:10 PM Interpretation: Performing Lab: Notes/Report: Reason For Referral No Information Medications Medication SIG (Take, Route, Frequency, Duration) Notes Start Date End Date Status Page [facility] 160-9-4.8 MCG/ACT 2 puffs Inhalation Twice [...] Risk Notes Problem Malignant tumor of lung (814590106) Malignant neoplasm of unspecified part of unspecified bronchus or lung (C34.90) Active confirmed Problem Hypocalcemia (3237758) Hypocalcemia (E83.51) Active confirmed Problem Primary insomnia (9643182) Primary insomnia (F51.01) Active confirmed Problem Essential tremor (304023392) Essential tremor (G25.0) Active confirmed Problem Essential hypertension (26476785) Essential (primary) hypertension (I10) Active confirmed Problem Vasomotor rhinitis (7506312) Vasomotor rhinitis (J30.0) Active confirmed Problem Acute on chronic hypoxemic and hypercapnic respiratory failure (disorder) (16555754035975) Acute and chronic respiratory failure with hypercapnia (J96.22) Active confirmed Problem Osteoarthritis (099041218) Unspecified osteoarthritis, unspecified site (M19.90) Active confirmed Problem Nicotine dependence (05838618) Personal history of nicotine dependence (Z87.891) Active confirmed Problem Acute exacerbation of chronic obstructive airways disease (594868735) COPD with exacerbation (J44.1) Active confirmed Problem 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) (8314560283081499 7) 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) Active confirmed Problem Restless legs syndrome (60986448) Restless leg syndrome (G25.81) Active confirmed Problem Idiopathic peripheral neuropathy (15687684) Idiopathic peripheral neuropathy (G60.9) Active confirmed Problem 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 confirmed Problem Cigarette smoker (70341997) Cigarette smoker (F17.210) Active confirmed Problem Tobacco dependence (61447842) Tobacco dependence (F17.200) Active confirmed Problem Oropharyngeal dysphagia (27444458) Oropharyngeal dysphagia (R13.12) Active confirmed Problem Dependence on supplemental oxygen (986183971991) Oxygen dependent (Z99.81) Active confirmed Problem Irritable bowel syndrome characterized by constipation (626646817) Irritable bowel syndrome with constipation (K58.1) Active confirmed Problem Lower urinary tract symptoms due to benign prostatic hypertrophy (10460330812980) Benign prostatic hyperplasia with lower urinary tract symptoms (N40.1) Active confirmed Problem Chronic obstructive pulmonary disease (13823236) COPD, group D, by GOLD 2017 classification (J44.9) Active confirmed Vital Signs Heart Rate 74 /min 08/28/2025 Temperature 97.5 degrees Fahrenheit 08/28/2025 Oximetry 99 08/18/2025 Blood pressure diastolic 86 mm Hg 08/28/2025 Height 5 ft 10 in in 08/28/2025 Blood pressure systolic 110 mm Hg 08/28/2025 Weight 116 lbs 08/28/2025 BMI 16.64 kg/m2 08/28/2025 Encounters Encounter Location Date Provider Diagnosis [facility] [address] [place] [address] 02/11/2025 Provider Migration COPD, group D, by GOLD 2017 classification J44.9 [facility] [address] [place] [address] 09/26/2024 Main Carrington COPD, group D, by GO LD 2017 classification J44.9 ; Acute and chronic respiratory failure with hypercapnia J96.22 ; Malignant neoplasm of unspecified part of unspecified bronchus or lung C34.90 and Hospital discharge follow-up Z09 [facility] [address] [place] [address] 10/10/2024 Main Besson Hypocalcemia E83.51 and Hospital discharge follow-up Z09 [facility] [address] [place] [address] 10/17/2024 Main Besson Hypocalcemia E83.51 [facility] [address] [place] [address] 11/08/2024 Cathie Chang COPD exacerbation J44.1 [facility] [address] [place] [address] 11/21/2024 Main Besson COPD, group D, by GO LD 2017 classification J44.9 ; Acute and chronic respiratory failure with hypercapnia J96.22 and Hospital discharge follow-up Z09 [facility] [address] [place] [address] 12/19/2024 Main Besson Hypocalcemia E83.51 and COPD, group D, by GOLD 2017 classification J44.9 [facility] [address] [place] [address] 02/20/2025 Main Besson Idiopathic periphera l neuropathy G60.9 ; COPD, group D, by GOLD 2017 classification J44.9 and Malignant neoplasm of unspecified part of unspecified bronchus or lung C34.90 [facility] [address] [place] [address] 05/01/2025 Main Besson COPD, group D, by GO LD 2017 classification J44.9 ; Acute and chronic respiratory failure with hypercapnia J96.22 ; Malignant neoplasm of unspecified part of unspecified bronchus or lung C34.90 ; Essential (primary) hypertension I10 ; Chronic constipation K59.09 ; Benign prostatic hyperplasia with lower urinary tract symptoms N40.1 ; Nocturia R35.1 and Routine medical exam Z00.00 [facility] [address] [place] [address] 06/05/2025 Main Besson Irritable bowel syndrome with constipation K58.1 [facility] [address] [place] [address] 08/01/2025 Cathiekim EmeryDimple Acute traumatic pain G89.11 ; Left-sided chest wall pain R07.89 and Oxygen dependent Z99.81 [facility] [address] [place] [address] 08/18/2025 Main Besson Lobar pneumonia J18. 1 ; COPD with exacerbation J44.1 ; Hospital discharge follow-up Z09 and Immunization(s) administered Z23 [facility] [address] [place] [address] 08/28/2025 Main Besson COPD, group D, by GO LD 2017 classification J44.9 and Malignant neoplasm of unspecified part of unspecified bronchus or lung C34.90 [facility] [address] [place] [address] 10/03/2024 Main Besson COPD, group D, by GO LD 2017 classification J44.9 and Acute and chronic respiratory failure with hypercapnia J96.22 [facility] [address] [place] [address] 11/14/2024 Main Besson [facility] [address] [facility] [place] [address] 04/11/2025 Main Besson Essential tremor G25 .0 [facility] [address] [place] [address] 05/09/2025 Main Besson Chronic constipation K59.09 [facility] [address] [place] [address] 07/12/2025 Main Besson [facility] [address] [place] [address] 08/01/2025 Cathie Dimple [facility] [address] [place] [address] 08/03/2025 Cathie Dimple [facility] [address] [place] [address] 08/11/2025 Main Besson [facility] [address] [facility] [address] [place] [address] 09/19/2025 Main Carrington Assessments Encounter Date Diagnosis [address], [place], [address], Provider Name:Main Carrington, 10/09/2025 10:15:00 AM, [address], [place], [address], Insurance Providers Payer Name Payer Address Payer Phone Subscriber Number Group Number Insured Name Patient Relationship to Insured Coverage Start Date Coverage End Date [employer] [address] [place] [address] [id number] Alejandro Madera Self - patient [...] H-COPD 08/2025 H-COPD 11/2024 [facility]- COPD 09/[address] [facility]- COPD [facility]- COPD EXACERBATION 06/10/24-06/12/24
--- OUTSIDE RECORDS SUMMARY | 2025-09-24 15:54 | XMS_ITS | Clinical Summary ---
Author Organization [facility] Address [address] [place] [id number] Care Team Providers Care Dandy Tender Name Role Phone Main Kyle MD Primary Care Provider [phone] Immunizations Immunization Administration Dates Next Due Influenza, [...] - PCV20 or PCV21) 04/15/2017 09/16/2017, 04/15/2016 [id number] Vaccine (3 - season) 2025 09/18/2021, 01/16/2021 [...] age to complete this topic Care Teams Dandy Tender Relationship Specialty Start Date End Date Main Kyle MD [address] [place] [address] PCP - General 03/22/21
--- NOTE | 2025-09-24 15:57 | ED_ITS ---
<Statement entered by Kathi Isabel DO - 09/24/25 22:16> I was consulted by the ABEBA, and we discussed the complexity of problems being addressed. I approve the treatment and management plan for this patient's care in the emergency department, thus performing a substantial portion of the medical decision making. Kathi Isabel DO Discharge Plan Disposition Patient Disposition: Admitted Clinical Impressions Clinical Impression: Shortness of breath, Cavitary lesion of lung, Respiratory failure Discharge ED Provider: Kathi Isabel HPI <Ramila Sena (ED), [employer] - Last Filed: 09/24/25 18:31> General Chief Complaint: Shortness of Breath/Dyspnea Stated Complaint: SOA Time Seen by Provider: 09/24/25 15:42 Mode of Arrival: Wheelchair Source of Information: Patient and Spouse Description of Symptoms (Recalled from ER Triage Doc. by RN): Pt was seen yesterday in the ED for SOA. Pt presents today with increased SOB, cough, and a visible increased work of breathing. Pt is on home oxygen @3L. History of Present Illness HPI narrative: 70-year-old male presents to the ED for shortness of air, increased shortness of breath, cough and increased work of breathing. Patient is on home oxygen at 3 L with O2 at 94%. Was here yesterday with the same symptoms. He was offered admission but refused. He wanted to go home and smoke. Patient was also offered hospice several times but refused this as well. Patient denies fevers. He is having difficulty breathing but had a CTA yesterday along with labs and had a complete workup yesterday. Related Data Home Medications ?Medication ?Instructions ?Recorded ?Confirmed trazodone 150 mg tablet 150 mg PO HS 07/03/22 aspirin 325 mg tablet 325 mg PO DAILY 05/11/23 propranolol 20 mg tablet 20 mg PO BID 08/23/24 azelastine 137 mcg (0.1 %) nasal 1 spray intranasal Q6 HP PRN 08/11/25 09/24/25 spray allergy symptoms azithromycin 250 mg tablet 250 mg PO DAILY 09/24/25 Previous Rx's ?Medication ?Instructions ?Recorded calcium carbonate (Calcium 500) 1,000 mg (2 x 500 mg c alcium 10/01/24 (1,250 mg)) PO DAILY #10 tabs ferrous sulfate 325 mg (65 mg 325 mg PO DAILY #90 tabs 11/29/24 iron) tablet albuterol sulfate 90 mcg/actuation 2 inh inhalation QI D PRN shortness 07/11/25 aerosol inhaler of breath or wheezing 90 day s #8.5 grams budesonide 160 mcg-glycopyr 9 2 inh inhalation BID 90 days #10.7 08/21/25 mcg-formot 4.8 mcg/actuation HFA grams inhaler (Breztri Aerosphere) prednisone 20 mg tablet 40 mg (2 x 20 mg) PO DAILY 4 days 09/19/25 #8 tabs ipratropium 0.5 mg-albuterol 3 mg 3 ml inhalation QIDP PRN Shortness 09/21/25 (2.5 mg base)/3 mL nebulization Of Breath Or Wheezing 90 days #180 soln mL Allergies Allergy/AdvReac Type Severity Reaction Status Date / Time silver (From [employer] Allergy Severe Rash Verified 09/12/25 09:56 Mesh) doxycycline Allergy Mild GI upset Verified 09/12/25 09:56 Penicillins (PENICILLINS) Allergy Mild Unknown Verified 09/12/25 09:56 allergy reaction amitriptyline AdvReac Intermediate gi upset Verified 09/12/25 09:56 adhesive AdvReac Rash Verified 09/12/25 09:56 hydrocodone AdvReac gi upset Verified 09/12/25 09:56 [facility] <Ramila Sena (ED), [employer] - Last Filed: 09/24/25 18:31> [facility] Disclaimer: The information contained in this section may have been updated after the patient was seen, as this information can be updated by other users. Medical History Hypomagnesemia Hypocalcemia Hypomagnesemia Hypocalcemia COPD exacerbation Hypocalcemia Acute exacerbation of chronic obstructive pulmonary disease Acute on chronic hypoxic respiratory failure Asthma exacerbation in COPD Shortness of breath Acute exacerbation of chronic obstructive pulmonary disease Dyspnea On home oxygen therapy Acute and chronic respiratory failure with hypercapnia Acute exacerbation of chronic obstructive airways disease Community acquired pneumonia Bilateral impacted cerumen Tinnitus Hearing loss Lung nodule Hilar lymphadenopathy Pneumonia Sleep apnea Emphysema/COPD Chronic cough Bronchitis Allergies History of anemia Lung collapse Nodule of right lung Tobacco abuse disorder Tobacco abuse counseling Small cell lung cancer Smoking greater than 30 pack years Chronic hypoxemic respiratory failure COPD (chronic obstructive pulmonary disease) Dyspnea on exertion On home O2 Sinus problem History of chemotherapy History of radiation therapy Personal history of arthritis History of lung disease Hyperlipemia Cancer Asthma Essential hypertension COPD exacerbation Surgical History History of insertion of tunneled central venous catheter (CVC) with port History of colonoscopy Hx of cardiac catheterization Normal coronary arteries History of sinus surgery Family History Diabetes Cancer Social History Smoking Status: Current every day smoker tobacco type: cigarettes packs per day: 1 years smoked: 50 alcohol intake: former substance use type: denies use current occupational status: retired and disabled Travel in the last 8 weeks?: None household members: spouse housing: house caffeine: Yes Have you lived/traveled outside [place] in past 30 days?: No Contact w/someone who lives/traveled outside US past 30 days?: No Exposure to someone with infectious disease in past 14 days?: No Do you have a fever (greater than 100.4 F or 38 C)?: No Have you tested positive for COVID-19?: No Exposed to someone with COVID-19 in past 14 days?: No Do you have a sore throat?: No Do you have a cough?: No Do you have any weakness?: No Do you have any diarrhea?: No Are you experiencing any unusual bleeding?: No Do you have any muscle aches/pain?: No Do you have any abdominal pain?: No Are you experiencing loss of taste or smell?: No Other Medical History Have you received the Flu Vaccine for this season: No Have you received the Pneumonia Vaccine: No <Ramila Sena (ED), [employer] - Last Filed: 09/24/25 18:31> ROS Obtained: Yes Systems reviewed as appropriate & no additional complaints except as documented Constitutional Constitutional: Reports as per HPI Physical Exam <Ramila Sena (ED), [employer] - Last Filed: 09/24/25 18:31> General General appearance: alert and anxious Head Head exam: normocephalic Eye Eye exam: Present PERRL and EOMI ENT ENT exam: Present normal oropharynx and mucous membranes moist Neck Neck exam: Present full ROM and trachea midline Respiratory Respiratory exam: Present wheezes Cardiovascular Cardiovascular exam: Present normal rhythm, tachycardia, normal heart sounds, +S1 and +S2 Abdominal Exam Abdominal exam: Present soft Extremities Exam Extremities exam: Present full ROM and normal capillary refill Neurological Exam Neurological exam: Present alert, oriented X3 and normal gait Skin Skin exam: Present warm and dry HEART Score <Ramila Sena (ED), [employer] - Last Filed: 09/24/25 18:31> HEART Score HEART Score assessment performed?: Yes History (anamnesis): Slightly suspicious ECG: Normal Age: >65 years Risk factors: 1-2 risk factors Troponin: </= normal limit HEART Score: 3 <Kathi Isabel, DO - Last Filed: 09/24/25 22:16> HEART Score HEART Score: 3 Critical Care <Ramila Sena (ED), [employer] - Last Filed: 09/24/25 18:31> Critical Care Time Critical Care Time: No Medical Decision Making <Ramilarobbie Sena (ED), [employer] - Last Filed: 09/24/25 18:31> Alvar[place] Inquiry Pt receiving controlled substance: No Alvarado was queried for this patient: No Vital Signs Vital Signs: 09/24/25 15:50 09/24/25 15:50 09/24/25 16:12 Temperature 98.7 F Temperature Source Temporal Artery Scan Pulse Rate 125 H Pulse Rate [Right] 125 H Respiratory Rate 25 H Blood Pressure 159/106 H Blood Pressure [Left Arm] 159/106 H Blood Pressure Mean [Left Arm] 123 Blood Pressure Source [Left Arm] Automatic Cuff Blood Pressure Position [Left Arm] Sitting 02 Sat by Pulse Oximetry 94 L 97 95 Oxygen Delivery Method Nasal Cannula Room Air Nasal Cannula Oxygen Flow Rate (LPM) 3 4 Fraction of Inspired Oxygen 09/24/25 16:25 09/24/25 16:30 09/24/25 16:40 Temperature Temperature Source Pulse Rate 132 H Pulse Rate [Right] Respiratory Rate Blood Pressure 189/119 H Blood Pressure [Left Arm] Blood Pressure Mean [Left Arm] Blood Pressure Source [Left Arm] Blood Pressure Position [Left Arm] 02 Sat by Pulse Oximetry 94 L 96 97 Oxygen Delivery Method Nasal Cannula Vapotherm Nasal Cannula Oxygen Flow Rate (LPM) 3 25 3 Fraction of Inspired Oxygen 25 16/25 17:00 09/24/25 17:30 09/24/25 18:00 Temperature Temperature Source Pulse Rate 114 H 122 H 118 H Pulse Rate [Right] Respiratory Rate Blood Pressure 176/85 H 182/107 H Blood Pressure [Left Arm] Blood Pressure Mean [Left Arm] Blood Pressure Source [Left Arm] Blood Pressure Position [Left Arm] 02 Sat by Pulse Oximetry 100 96 89 L Oxygen Delivery Method Nasal Cannula Nasal Cannula Nasal Cannula Oxygen Flow Rate (LPM) 3 3 3 Fraction of Inspired Oxygen 09/24/25 18:42 Temperature 98.2 F Temperature Source Pulse Rate 105 H Pulse Rate [Right] Respiratory Rate 30 H Blood Pressure 176/85 H Blood Pressure [Left Arm] Blood Pressure Mean [Left Arm] Blood Pressure Source [Left Arm] Blood Pressure Position [Left Arm] 02 Sat by Pulse Oximetry Oxygen Delivery Method Nasal Cannula Oxygen Flow Rate (LPM) 3 Fraction of Inspired Oxygen Lab Data Labs: Lab Results 09/24/25 15:54: VBG pH 7.32, VBG pCO2 66.7 H, VBG pO2 73.9 H, VBG HCO3 33.2 H, V BG Total CO2 35.3 H, VBG O2 Saturation 92.9 H, VBG Base Excess 7.0 H, VBG Lactic Acid 2.0 09/24/25 16:07: WBC 9.4 D, RBC 3.30 L, Hgb 9.1 L, Hct 29.1 L, MCV 88.2, MCH 27.6, MCHC 31.3 L, RDW 15.0, Plt Count 285, MPV 8.8, Neut % (Auto) 93.3 H, Lymph % (Auto) 2.9 L, Barbour % (Auto) 3.3, Eos % (Auto) 0.0 L, Baso % (Auto) 0.1, Neut # (Auto) 8.8 H, Lymph # (Auto) 0.3 L, Barbour # (Auto) 0.3, Eos # (Auto) 0.0, Baso # (Auto) 0.0, Total Counted 100, Neutrophils % (Manual) 92 H, Lymphocytes % (Manual) 4 L, Monocytes % (Manual) 4, Platelet Estimate Normal, RBC Morphology Normal, Sodium 133 L, Potassium 4.2, Chloride 88 L, Carbon Dioxide 36 H, Anion Gap 13.2, BUN 11, Creatinine 0.50 L, Estimated Creat Clear 73, Estimated GFR 165, Est GFR ( Amer) 200 D, Glucose 168 H, Calcium 6.3 L, Magnesium 1.5 L D, Total Bilirubin 0.2, AST 32, ALT 22, Alkaline Phosphatase 80, Troponin I 0.02, Total Protein 7.0, Albumin 3.9, Globulin 3.1, Albumin/Globulin Ratio 1.3 09/24/25 16:07 09/24/25 16:07 Response Orders (Tests/Meds): ED MEDICATIONS Generic Name Dose Route Start Last Admin Trade Name Freq PRN Reason Stop Dose Admin Albuterol/Ipratropium 3 ml 09/24/25 22:00 09/24/25 22:00 Ipratropium/Albuterol 3 Ml Neb 10/24/25 21:59 3 ml Q4RT DOREEN Administration Aspirin 325 mg 09/25/25 09:00 Aspirin 325mg Tablet PO 10/25/25 08:59 DAILY DOREEN Budesonide/Glycopyrr/Formoterol Fum 2 puff 09/24/25 21:00 09/24/25 22:00 Budesonide/Glycopyr/Formoterol 160/9/4.8mcg Inhaler IH 10/24/25 20:59 2 puff BID DOREEN Administration Enoxaparin Sodium 40 mg 09/24/25 18:39 09/24/25 21:09 Enoxaparin 40mg/0.4ml Syringe SUBCUT 09/24/25 18:40 Not Given ONCE ONE Furosemide 40 mg 09/24/25 18:31 09/24/25 19:50 Furosemide 40mg/4ml Vial IV 09/24/25 18:32 40 mg ONCE ONE Administration Magnesium Sulfate 2 gm in 50 mls @ 50 mls/hr 09/24/25 18:31 09/24/25 21:05 Magnesium Sulfate 2gm/50ml Premix IV 09/24/25 19:30 Infused ONCE ONE Infusion Morphine Sulfate 2 mg 09/24/25 18:28 Morphine 2mg/Ml Syringe IV 10/24/25 18:27 Q4HP PRN Moderate to Severe Pain (4-10) Nicotine 21 mg 09/24/25 18:24 Nicotine 21mg/24hr Patch TD 10/24/25 18:23 DAILYP PRN Nicotine Cravings Non-Formulary Medication 1,000 mg 09/25/25 09:00 Calcium Carbonate [Calcium 500] PO 10/25/25 08:59 DAILY DOREEN Propranolol HCl 20 mg 09/24/25 21:00 09/24/25 22:09 Propranolol 20mg Tab PO 10/24/25 20:59 20 mg BID DOREEN Administration Trazodone HCl 150 mg 09/24/25 21:00 09/24/25 22:09 Trazodone 50mg Tablet PO 10/24/25 20:59 150 mg HS DOREEN Administration Discontinued Medications Generic Name Dose Route Start Last Admin Trade Name Freq PRN Reason Stop Dose Admin Albuterol/Ipratropium 9 ml 09/24/25 15:49 09/24/25 15:59 Ipratropium/Albuterol 3 Ml Neb IH 09/24/25 15:50 9 ml ONCE ONE Administration Haloperidol Lactate 2 mg 09/24/25 15:49 09/24/25 15:58 Haloperidol Lactate 5 Mg/Ml Vial IV 09/24/25 15:50 2 mg ONCE ONE Administration Magnesium Sulfate 2 gm in 50 mls @ 50 mls/hr 09/24/25 15:55 09/24/25 17:16 Magnesium Sulfate 2gm/50ml Premix IV 09/24/25 16:54 Infused ONCE ONE Infusion Methylprednisolone Sodium Succinate 125 mg 09/24/25 15:49 09/24/25 15:59 Methylprednisolone Sod Succ 125mg Vial IV 09/24/25 15:50 125 mg ONCE ONE Administration Morphine Sulfate 2 mg 09/24/25 16:54 09/24/25 17:05 Morphine 2mg/Ml Syringe IV 09/24/25 16:55 2 mg ONCE ONE Administration Ondansetron HCl 4 mg 09/24/25 16:54 09/24/25 17:04 Ondansetron 4mg/2ml Vial IV 09/24/25 16:55 4 mg ONCE ONE Administration ORDERS Category Date Time Status Consult to Case Management [CONS] Routine Cons 09/24/25 16:16 Active CBC [Complete Blood Count Auto Diff] Stat Lab 09/24/25 16:07 Completed Calcium, Ionized Stat Lab 09/24/25 16:30 Ordered Comprehensive Metabolic Panel Stat Lab 09/24/25 16:07 Completed Magnesium Stat Lab 09/24/25 16:07 Completed Trop I [Troponin I] Stat Lab 09/24/25 16:07 Completed Troponin I Q3H Lab 09/24/25 19:15 Completed Troponin I Q3H Lab 09/24/25 22:00 Ordered VBG [Venous Blood Gas] Stat RT 09/24/25 15:54 Completed MDM Narrative Medical Decision Narrative: patient is a 70-year-old male presenting to the emergency department for evaluation of shortness of breath increased tachypnea. Patient is hemodynamically stable, however tachypneic and unwell appearing, afebrile. Differential diagnosis includes hypoxic, worsening lung cancer, respiratory failure. Workup will be conducted with hematologic labs, patient declined imaging. Initial inventions include analgesics. Initial workup reviewed by me patient's white cell 9.4, H&H was 9 and 29, mag was 1.5 which was placed here in the ED. Troponin was 0.02 other labs nonactionable today. Dr. Isabel talked to patient extensively about going on hospice due to his diagnosis of lung cancer. Patient has been offered this many times and he has declined. Today he agrees to the hospice care. We called hospice but they were unable to see patient today and set up everything before midnight. They recommended admitting patient for observation and then they would see patient first thing in the morning. I talked to the Dr. Tomas who agreed to admit patient for ops. Patient agreeable for admission. <Kathi Isabel, DO - Last Filed: 09/24/25 22:16> Vital Signs Vital Signs: 09/24/25 15:50 09/24/25 15:50 09/24/25 16:12 Temperature 98.7 F Temperature Source Temporal Artery Scan Pulse Rate 125 H Pulse Rate [Right] 125 H Respiratory Rate 25 H Blood Pressure 159/106 H Blood Pressure [Left Arm] 159/106 H Blood Pressure Mean [Left Arm] 123 Blood Pressure Source [Left Arm] Automatic Cuff Blood Pressure Position [Left Arm] Sitting 02 Sat by Pulse Oximetry 94 L 97 95 Oxygen Delivery Method Nasal Cannula Room Air Nasal Cannula Oxygen Flow Rate (LPM) 3 4 Fraction of Inspired Oxygen 09/24/25 16:25 09/24/25 16:30 09/24/25 16:40 Temperature Temperature Source Pulse Rate 132 H Pulse Rate [Right] Respiratory Rate Blood Pressure 189/119 H Blood Pressure [Left Arm] Blood Pressure Mean [Left Arm] Blood Pressure Source [Left Arm] Blood Pressure Position [Left Arm] 02 Sat by Pulse Oximetry 94 L 96 97 Oxygen Delivery Method Nasal Cannula Vapotherm Nasal Cannula Oxygen Flow Rate (LPM) 3 25 3 Fraction of Inspired Oxygen 25 09/24/25 17:00 09/24/25 17:30 09/24/25 18:00 Temperature Temperature Source Pulse Rate 114 H 122 H 118 H Pulse Rate [Right] Respiratory Rate Blood Pressure 176/85 H 182/107 H Blood Pressure [Left Arm] Blood Pressure Mean [Left Arm] Blood Pressure Source [Left Arm] Blood Pressure Position [Left Arm] 02 Sat by Pulse Oximetry 100 96 89 L Oxygen Delivery Method Nasal Cannula Nasal Cannula Nasal Cannula Oxygen Flow Rate (LPM) 3 3 3 Fraction of Inspired Oxygen 09/24/25 18:42 Temperature 98.2 F Temperature Source Pulse Rate 105 H Pulse Rate [Right] Respiratory Rate 30 H Blood Pressure 176/85 H Blood Pressure [Left Arm] Blood Pressure Mean [Left Arm] Blood Pressure Source [Left Arm] Blood Pressure Position [Left Arm] 02 Sat by Pulse Oximetry Oxygen Delivery Method Nasal Cannula Oxygen Flow Rate (LPM) 3 Fraction of Inspired Oxygen Lab Data Lab results reviewed: Yes I reviewed the patient's lab results. Labs: Lab Results 09/24/25 15:54: VBG pH 7.32, VBG pCO2 66.7 H, VBG pO2 73.9 H, VBG HCO3 33.2 H, V BG Total CO2 35.3 H, VBG O2 Saturation 92.9 H, VBG Base Excess 7.0 H, VBG Lactic Acid 2.0 09/24/25 16:07: WBC 9.4 D, RBC 3.30 L, Hgb 9.1 L, Hct 29.1 L, MCV 88.2, MCH 27.6, MCHC 31.3 L, RDW 15.0, Plt Count 285, MPV 8.8, Neut % (Auto) 93.3 H, Lymph % (Auto) 2.9 L, Barbour % (Auto) 3.3, Eos % (Auto) 0.0 L, Baso % (Auto) 0.1, Neut # (Auto) 8.8 H, Lymph # (Auto) 0.3 L, [place]bour # (Auto) 0.3, Eos # (Auto) 0.0, Baso # (Auto) 0.0, Total Counted 100, Neutrophils % (Manual) 92 H, Lymphocytes % (Manual) 4 L, Monocytes % (Manual) 4, Platelet Estimate Normal, RBC Morphology Normal, Sodium 133 L, Potassium 4.2, Chloride 88 L, Carbon Dioxide 36 H, Anion Gap 13.2, BUN 11, Creatinine 0.50 L, Estimated Creat Clear 73, Estimated GFR 165, Est GFR ( Amer) 200 D, Glucose 168 H, Calcium 6.3 L, Magnesium 1.5 L D, Total Bilirubin 0.2, AST 32, ALT 22, Alkaline Phosphatase 80, Troponin I 0.02, Total Protein 7.0, Albumin 3.9, Globulin 3.1, Albumin/Globulin Ratio 1.3 Response Orders (Tests/Meds): ED MEDICATIONS Generic Name Dose Route Start Last Admin Trade Name Freq PRN Reason Stop Dose Admin Albuterol/Ipratropium 3 ml 09/24/25 22:00 09/24/25 22:00 Ipratropium/Albuterol 3 Ml Neb 10/24/25 21:59 3 ml Q4RT DOREEN Administration Aspirin 325 mg 09/25/25 09:00 Aspirin 325mg Tablet PO 10/25/25 08:59 DAILY DOREEN Budesonide/Glycopyrr/Formoterol Fum 2 puff 09/24/25 21:00 09/24/25 22:00 Budesonide/Glycopyr/Formoterol 160/9/4.8mcg Inhaler 10/24/25 20:59 2 puff BID DOREEN Administration Enoxaparin Sodium 40 mg 09/24/25 18:39 09/24/25 21:09 Enoxaparin 40mg/0.4ml Syringe SUBCUT 09/24/25 18:40 Not Given ONCE ONE Furosemide 40 mg 09/24/25 18:31 09/24/25 19:50 Furosemide 40mg/4ml Vial IV 09/24/25 18:32 40 mg ONCE ONE Administration Magnesium Sulfate 2 gm in 50 mls @ 50 mls/hr 09/24/25 18:31 09/24/25 21:05 Magnesium Sulfate 2gm/50ml Premix IV 09/24/25 19:30 Infused ONCE ONE Infusion Morphine Sulfate 2 mg 09/24/25 18:28 Morphine 2mg/Ml Syringe IV 10/24/25 18:27 Q4HP PRN Moderate to Severe Pain (4-10) Nicotine 21 mg 09/24/25 18:24 Nicotine 21mg/24hr Patch TD 10/24/25 18:23 DAILYP PRN Nicotine Cravings Non-Formulary Medication 1,000 mg 09/25/25 09:00 Calcium Carbonate [Calcium 500] PO 10/25/25 08:59 DAILY DOREEN Propranolol HCl 20 mg 09/24/25 21:00 09/24/25 22:09 Propranolol 20mg Tab PO 10/24/25 20:59 20 mg BID DOREEN Administration Trazodone HCl 150 mg 09/24/25 21:00 09/24/25 22:09 Trazodone 50mg Tablet PO 10/24/25 20:59 150 mg HS DOREEN Administration Discontinued Medications Generic Name Dose Route Start Last Admin Trade Name Freq PRN Reason Stop Dose Admin Albuterol/Ipratropium 9 ml 09/24/25 15:49 09/24/25 15:59 Ipratropium/Albuterol 3 Ml Neb IH 09/24/25 15:50 9 ml ONCE ONE Administration Haloperidol Lactate 2 mg 09/24/25 15:49 09/24/25 15:58 Haloperidol Lactate 5 Mg/Ml Vial IV 09/24/25 15:50 2 mg ONCE ONE Administration Magnesium Sulfate 2 gm in 50 mls @ 50 mls/hr 09/24/25 15:55 09/24/25 17:16 Magnesium Sulfate 2gm/50ml Premix IV 09/24/25 16:54 Infused ONCE ONE Infusion Methylprednisolone Sodium Succinate 125 mg 09/24/25 15:49 09/24/25 15:59 Methylprednisolone Sod Succ 125mg Vial IV 09/24/25 15:50 125 mg ONCE ONE Administration Morphine Sulfate 2 mg 09/24/25 16:54 09/24/25 17:05 Morphine 2mg/Ml Syringe IV 09/24/25 16:55 2 mg ONCE ONE Administration Ondansetron HCl 4 mg 09/24/25 16:54 09/24/25 17:04 Ondansetron 4mg/2ml Vial IV 09/24/25 16:55 4 mg ONCE ONE Administration ORDERS Category Date Time Status Consult to Case Management [CONS] Routine Cons 09/24/25 16:16 Active CBC [Complete Blood Count Auto Diff] Stat Lab 09/24/25 16:07 Completed Calcium, Ionized Stat Lab 09/24/25 16:30 Ordered Comprehensive Metabolic Panel Stat Lab 09/24/25 16:07 Completed Magnesium Stat Lab 09/24/25 16:07 Completed Trop I [Troponin I] Stat Lab 09/24/25 16:07 Completed Troponin I Q3H Lab 09/24/25 19:15 Completed Troponin I Q3H Lab 09/24/25 22:00 Ordered VBG [Venous Blood Gas] Stat RT 09/24/25 15:54 Completed MDM Narrative Medical Decision Narrative: patient is a 70-year-old male presenting to the emergency department for evaluation of shortness of breath increased tachypnea. Patient is hemodynamically stable, however tachypneic and unwell appearing, afebrile. Differential diagnosis includes progression of lung cancer, pneumonia, pleural effusion, pulmonary embolism, amongst others. Workup will be conducted with hematologic labs, patient declined imaging. Initial inventions include analgesics, breathing treatments and steroids. Of note, patient was here in the emergency department yesterday and had an extensive workup for shortness of breath. Patient had labs as well as a CT PE that showed no pulmonary embolism. Patient was offered admission at that time but patient declined and patient was sent home on steroids and breathing treatments. States that his symptoms are worse today and patient would be admitted interested in admission and possible hospice consult given his extensive disease. Initial workup reviewed by me patient's white cell 9.4, H&H was 9 and 29, mag was 1.5 which was placed here in the ED. Troponin was 0.02 other labs nonactionable today. Dr. Isabel talked to patient extensively about going on hospice due to his diagnosis of lung cancer. Patient has been offered this many times and he has declined. Today he agrees to the hospice care. We called hospice but they were unable to see patient today and set up everything before midnight. They recommended admitting patient for observation and then they would see patient first thing in the morning. I talked to the Dr. Tomas who agreed to admit patient for ops. Patient agreeable for admission.
[2025-09-24] MEDS: HALOPERIDOL LACTATE 5 MG/ML VIAL 2 MG IV (15:58)
[2025-09-24] MEDS: IPRATROPIUM/ALBUTEROL 3 ML NEB 9 ML IH (15:59)
[2025-09-24] MEDS: METHYLPREDNISOLONE SOD SUCC 125MG VIAL 125 MG IV (15:59)
[2025-09-24 16:16] LABS: Hematocrit 29.1 % (42.0-52.0); Hemoglobin 9.1 g/dL (14.1-18.0); Immature Granulocytes % 0.4 %; Mean Corpuscular HGB Conc 31.3 g/dL (31.8-35.4); Mean Corpuscular Hemoglobin 27.6 pg (27.0-31.2); Mean Corpuscular Volume 88.2 fl (80-94); Nucleated Red Blood Cells % 0 %; Platelet Count 285 K/mm3 (142-424); Red Blood Count 3.30 M/mm3 (4.60-6.20); Red Cell Distribution Width-SD 48.4 fL; White Blood Count 9.4 K/mm3 (4.8-10.8)
[2025-09-24 16:16] LABS: Lactate Venous 2.0 mmol/L (0.4-2.0); VBG HCO3 33.2 mmol/L (23-30); VBG PCO2 66.7 mmol/L (35-51); VBG PH 7.32 mmol/L (7.31-7.41); VBG PO2 73.9 mmol/L (28-40)
[2025-09-24 16:20] LABS: Albumin Level 3.9 g/dl (3.5-5.0); Chloride 88 mmol/L (98-107); Potassium 4.2 mmoL/L (3.5-5.1); Sodium 133 mmol/L (136-145)
[2025-09-24 16:23] LABS: Alanine Aminotransferase 22 U/L (12-78); Albumin/Globulin Ratio 1.3 (1.1-1.8); Alkaline Phosphatase 80 U/L (38-126); Anion Gap 13.2 mEq/L (5-15); Aspartate Amino Transferase 32 U/L (17-59); Bilirubin,Total 0.2 mg/dl (0.2-1.3); Blood Urea Nitrogen 11 mg/dl (9-20); Carbon Dioxide 36 mmol/L (22.0-30.0); Creatinine Clearance Estimated 73 mL/min (50-200); Creatinine,Serum 0.50 mg/dl (0.66-1.25); Estimated Glomerular Filt Rate 165 ml/min (>60); GFR (African American) 200 ML/MIN (>60); Globulin 3.1 g/dL (1.3-3.2); Total Protein,Serum 7.0 g/dl (6.3-8.2)
[2025-09-24 16:24] LABS: Calcium 6.3 mg/dl (8.4-10.2); Glucose 168 mg/dl (74-100); Magnesium 1.5 mg/dl (1.6-2.3)
[2025-09-24] MEDS: MAGNESIUM SULFATE IN WATER 2 GM/50 ML PIGGYBACK IV ×2 (16:28→19:49)
[2025-09-24 16:36] LABS: Troponin I 0.02 ng/ml (0.00-0.034)
[2025-09-24 16:38] LABS: RBC Morphology Normal; Total Cells Counted 100
--- NOTE | 2025-09-24 16:43 | PC.NURSE ---
Spoke with [facility]ators for referral. Requesting records. States that she will send all information over to the care team and hopefuly they will be able to come up to evaluate the patiient soon.
[2025-09-24] MEDS: ONDANSETRON 4MG/2ML VIAL 4 MG IV (17:04)
[2025-09-24] MEDS: MORPHINE 2MG/ML SYRINGE 2 MG IV (17:05)
--- NOTE | 2025-09-24 18:19 | PC.NURSE ---
Rec'd call from Hospice nurse. States that she rec patient to be admitted to get medications regulated and allow time for Hospice to get here to evaluate and get all medications and equipment ready for patient to go home. States they would not be able to get everything he may need tonight. notified.
--- NOTE | 2025-09-24 18:20 | PC.NURSE ---
hospice called [facility] and said it would best for patient to come into hospital tonight for obs and then they would be out first thing in the morning to evaluate and set up equiipment and med regimen. ER providers and patient made aware
--- NOTE | 2025-09-24 18:32 | EXP.HP ---
History of Present Illness *Admission Date: 09/24/25 *Reason for visit:: Dyspnea *History of present illness: 70-year-old male patient presents to ER for the third time this week for increased shortness of breath. On the first trip he was admitted treated and then discharged with treatments and steroids. He came in again yesterday improved with treatments in the ER and after discussion with the hospitalist decided to forego admission and return home. He was instructed at that time if symptoms returned he could come back. He did present again to the ER today with complaints of worsening shortness of breath. Denies chest pain. Denies increase in coughing or sputum production. He states he is agreeable to hospice at this time. Workup in the ER on 09/24/2025 was essentially unremarkable and unchanged from prior. [facility] Disclaimer: The information contained in this section may have been updated after the patient was seen, as this information can be updated by other users. Medical History Hypomagnesemia Hypocalcemia Hypomagnesemia Hypocalcemia COPD exacerbation Hypocalcemia Acute exacerbation of chronic obstructive pulmonary disease Acute on chronic hypoxic respiratory failure Asthma exacerbation in COPD Shortness of breath Acute exacerbation of chronic obstructive pulmonary disease Dyspnea On home oxygen therapy Acute and chronic respiratory failure with hypercapnia Acute exacerbation of chronic obstructive airways disease Community acquired pneumonia Bilateral impacted cerumen Tinnitus Hearing loss Lung nodule Hilar lymphadenopathy Pneumonia Sleep apnea Emphysema/COPD Chronic cough Bronchitis Allergies History of anemia Lung collapse Nodule of right lung Tobacco abuse disorder Tobacco abuse counseling Small cell lung cancer Smoking greater than 30 pack years Chronic hypoxemic respiratory failure COPD (chronic obstructive pulmonary disease) Dyspnea on exertion On home O2 Sinus problem History of chemotherapy History of radiation therapy Personal history of arthritis History of lung disease Hyperlipemia Cancer Asthma Essential hypertension COPD exacerbation Surgical History History of insertion of tunneled central venous catheter (CVC) with port History of colonoscopy Hx of cardiac catheterization Normal coronary arteries History of sinus surgery Family History Diabetes Cancer Social History Smoking Status: Current every day smoker tobacco type: cigarettes packs per day: 1 years smoked: 50 alcohol intake: former substance use type: denies use current occupational status: retired and disabled Travel in the last 8 weeks?: None household members: spouse housing: house caffeine: Yes Have you lived/traveled outside [place] in past 30 days?: No Contact w/someone who lives/traveled outside US past 30 days?: No Exposure to someone with infectious disease in past 14 days?: No Do you have a fever (greater than 100.4 F or 38 C)?: No Have you tested positive for COVID-19?: No Exposed to someone with COVID-19 in past 14 days?: No Do you have a sore throat?: No Do you have a cough?: No Do you have any weakness?: No Do you have any diarrhea?: No Are you experiencing any unusual bleeding?: No Do you have any muscle aches/pain?: No Do you have any abdominal pain?: No Are you experiencing loss of taste or smell?: No Other Medical History Have you received the Flu Vaccine for this season: No Have you received the Pneumonia Vaccine: No Review of Systems Review of Systems Review of systems (narrative): 14 point review of systems performed, pertinent positives and negatives as per HPI Constitutional Constitutional: Denies body ache(s), Denies chills and Denies fever(s) ENT Ears, Nose, Mouth, and Throat: Denies dizziness *Cardiovascular Cardiovascular: Denies chest pain, Reports dyspnea and Denies edema *Respiratory Respiratory: Reports cough, Reports dyspnea and Denies excessive phlegm production *Gastrointestinal Gastrointestinal: Denies abdominal pain, Reports constipation, Denies nausea and Denies vomiting *Genitourinary Genitourinary: Denies difficulty urinating and Denies dysuria *Musculoskeletal Musculoskeletal: Denies myalgias and Denies numbness *Neurologic Neurologic: Denies abnormal speech, Denies dizziness and Denies numbness Meds Home Medications and Allergies Home Medications ?Medication ?Instructions ?Recorded ?Confirmed ?Type trazodone 150 mg tablet 150 mg PO HS 07/03/22 09/24/25 History aspirin 325 mg tablet 325 mg PO DAILY 05/11/23 09/24/25 History propranolol 20 mg tablet 20 mg PO BID 08/23/24 09/24/25 History calcium carbonate (Calcium 500) 1,000 mg (2 x 500 mg calcium 10/01/24 09/24/25 Rx (1,250 mg)) PO DAILY #10 tabs ferrous sulfate 325 mg (65 mg 325 mg PO DAILY #90 tabs 11/29/24 09/24/25 Rx iron) tablet albuterol sulfate 90 mcg/actuation 2 inh inhalation QID PRN shortness 07/11/25 09/24/25 Rx aerosol inhaler of breath or wheezing 90 days #8.5 grams azelastine 137 mcg (0.1 %) nasal 1 spray intranasal Q6HP PRN 08/11/25 09/24/25 History spray allergy symptoms budesonide 160 mcg-glycopyr 9 2 inh inhalation BID 90 days #10.7 08/21/25 09/24/25 Rx mcg-formot 4.8 mcg/actuation HFA grams inhaler (Breztri Aerosphere) prednisone 20 mg tablet 40 mg (2 x 20 mg) PO DAILY 4 days 09/19/25 09/24/25 Rx #8 tabs ipratropium 0.5 mg-albuterol 3 mg 3 ml inhalation QIDP PRN Shortness 09/21/25 09/24/25 Rx (2.5 mg base)/3 mL nebulization Of Breath Or Wheezing 90 days #180 soln mL azithromycin 250 mg tablet 250 mg PO DIRECTED 09/24/25 09/25/25 History New Prescriptions to Start Prescriptions: Allergies Allergy/AdvReac Type Severity Reaction Status Date / Time silver (From [employer] Allergy Severe Rash Verified 09/12/25 09:56 Mesh) doxycycline Allergy Mild GI upset Verified 09/12/25 09:56 Penicillins (PENICILLINS) Allergy Mild Unknown Verified 09/12/25 09:56 allergy reaction amitriptyline AdvReac Intermediate gi upset Verified 09/12/25 09:56 adhesive AdvReac Rash Verified 09/12/25 09:56 hydrocodone AdvReac gi upset Verified 09/12/25 09:56 Exam Data for Last 24 hours Vital signs and Labs for Last 24 Hours: Temp Pulse Resp BP Pulse Ox O2 Del Method O2 Flow Rate 98.7 F 118 H 25 H 182/107 H 89 L Nasal Cannula 3 09/24/25 15:50 09/24/25 18:00 09/24/25 15:50 09/24/25 17:30 09/24/25 18:00 09/24/25 18:00 09/24/25 18:00 FiO2 25 09/24/25 16:30 Laboratory Results - last 24 hr 09/24/25 15:54: VBG pH 7.32, VBG pCO2 66.7 H, VBG pO2 73.9 H, VBG HCO3 33.2 H, VBG Total CO2 35.3 H, VBG O2 Saturation 92.9 H, VBG Base Excess 7.0 H, VBG Lactic Acid 2.0 09/24/25 16:07: WBC 9.4 D, RBC 3.30 L, Hgb 9.1 L, Hct 29.1 L, MCV 88.2, MCH 27.6, MCHC 31.3 L, RDW 15.0, Plt Count 285, MPV 8.8, Neut % (Auto) 93.3 H, Lymph % (Auto) 2.9 L, [place] % (Auto) 3.3, Eos % (Auto) 0.0 L, Baso % (Auto) 0.1, Neut # (Auto) 8.8 H, Lymph # (Auto) 0.3 L, [place] # (Auto) 0.3, Eos # (Auto) 0.0, Baso # (Auto) 0.0, Total Counted 100, Neutrophils % (Manual) 92 H, Lymphocytes % (Manual) 4 L, Monocytes % (Manual) 4, Platelet Estimate Normal, RBC Morphology Normal, Sodium 133 L, Potassium 4.2, Chloride 88 L, Carbon Dioxide 36 H, Anion Gap 13.2, BUN 11, Creatinine 0.50 L, Estimated Creat Clear 73, Estimated GFR 165, Est GFR ( Amer) 200 D, Glucose 168 H, Calcium 6.3 L, Magnesium 1.5 L D, Total Bilirubin 0.2, AST 32, ALT 22, Alkaline Phosphatase 80, Troponin I 0.02, Total Protein 7.0, Albumin 3.9, Globulin 3.1, Albumin/Globulin Ratio 1.3 I & O for Last 24 hours: Intake & Output 09/21/25 09/22/25 09/23/25 09/24/25 23:59 23:59 23:59 23:59 Intake Total 50 / 50 Balance 50 / 50 Weight 72.575 kg Constitutional Constitutional: moderate distress and cachectic *Routine HEENT Exam Head: Present normocephalic and atraumatic Eye: Present PERRL ENT: Present mucous membranes moist *Routine Neck Exam Neck: Present supple *Routine Respiratory Exam Respiratory: Present decreased breath sounds (Diminished throughout worse on the left), prolonged expiratory phase and wheezes (Worse on the left); Absent rhonchi or crackles *Routine Cardiovascular Exam Cardiovascular: Present Normal S1, Normal S2 and tachycardia *Routine Abdominal Exam Abdominal: Present soft and normoactive bowel sounds; Absent tenderness *Routine Rectal Exam Rectal:: deferred *Routine Genitalia Exam Genitalia:: deferred *Routine Extremities Exam Extremities: Present pulses intact; Absent edema *Routine Skin Exam Skin: Present intact, dry and warm *Routine Neurological Exam Neurological: Present alert, oriented X3 and moving all extremities Assessment and Plan *Assessment and plan (1) Acute exacerbation of chronic obstructive pulmonary disease: Status: Acute Category: Medical Code(s): J44.1 - Chronic obstructive pulmonary disease with (acute) exacerbation (2) Respiratory failure: Status: Acute Category: Medical Code(s): J96.90 - Respiratory failure, unspecified, unspecified whether with hypoxia or hypercapnia (3) Severe protein-calorie malnutrition: Status: Acute Category: Medical Code(s): E43 - Unspecified severe protein-calorie malnutrition (4) Pulmonary cachexia due to COPD: Status: Acute Category: Medical Code(s): R64 - Cachexia; J44.9 - Chronic obstructive pulmonary disease, unspecified (5) Cavitary lesion of lung: Status: Acute Category: Medical Code(s): J98.4 - Other disorders of lung (6) On home oxygen therapy: Status: Chronic Category: Medical Code(s): Z99.81 - Dependence on supplemental oxygen (7) Small cell lung cancer: Status: Chronic Qualifiers: Laterality: right Lung location: unspecified part of lung Qualified Code(s): C34.91 - Malignant neoplasm of unspecified part of right bronchus or lung Category: Medical Code(s): C34.90 - Malignant neoplasm of unspecified part of unspecified bronchus or lung (8) Shortness of breath: Status: Acute Category: Medical Code(s): R06.02 - Shortness of breath (9) Tobacco dependence: Status: Chronic Category: Medical Code(s): F17.200 - Nicotine dependence, unspecified, uncomplicated (10) (HFpEF) heart failure with preserved ejection fraction: Status: Acute Category: Medical Code(s): I50.30 - Unspecified diastolic (congestive) heart failure Plan 70-year-old male with history of lung cancer, severe COPD, presents with worsening shortness over the past 2 days. Was just discharged earlier this week as he was improving and on baseline oxygen to complete antibiotics and steroids. Presented to the ER yesterday with symptoms that improved with continuous nebs. After discussion with patient, he preferred to go home on steroids and nebulizer as opposed to admission. Carlos presents today with worsening shortness of breath. After much discussion with the ER, patient has elected to proceed with hospice. Discussed case with ER physician, request admission for treatment overnight and monitoring with possible discharge to hospice in the morning. I decided to admit for further care given patient's respiratory distress. Problems addressed as follows: Acute on chronic hypoxic respiratory failure with hypercapnia due to COPD exacerbation Metastatic small cell lung cancer Cavitary lung lesion of right upper lobe HFpEF - Patient's white count is normal at 9.4, hemoglobin stable at 9. Kidney function normal with BUN 11, creatinine 0.5. Calcium low at 6.3, magnesium low at 1.5. Replacing magnesium with 2 rounds of 2 g IV. Monitor for improvement. Potassium 4.2. Troponin 0.02. BNP elevated yesterday at 502. - Review of chart shows echo, last performed in 2021 with elevated RVSP consistent with HFpEF. Will administer 1 dose Lasix 40 mg IV to assess for improvement due to his HFpEF likely related to his end-stage lung disease. Suspect he also has a component of some pulmonary hypertension secondary to his end-stage COPD. - DuoNebs every 4 hours scheduled - Received methylprednisolone 125 mg once in the ER. Will hold on steroids at this time. Reevaluate in the morning - Due to hypercapnia, patient was initiated on BiPAP. Pulmonology consulted to evaluate in the morning. - Hospice consult placed to evaluate for end-stage COPD and transition to hospice at time of discharge. Tobacco use disorder: Counseled on need to stop smoking. Seriously complicates patient's respiratory disease. Continues to smoke and even purchased a pack of cigarettes after discharging this past week. Will use nicotine patch during admission. 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 Protein supplementation with meals Continue tamsulosin 0.4 mg nightly for BPH Continue trazodone 100 mg nightly for sleep disorder Continue propranolol 20 mg twice daily for tachycardia/hypertension Full code Lovenox 40 mg subcu daily Regular diet with supplement
--- NOTE | 2025-09-24 19:45 | PC.NURSE ---
customer solutions architect called to let us know they would be in to see the patient tomorrow
[2025-09-24 19:46] LABS: Troponin I 0.04 ng/ml (0.00-0.034)
[2025-09-24] MEDS: FUROSEMIDE 40MG/4ML VIAL 40 MG IV (19:50)
[2025-09-24] MEDS: BUDESONIDE/GLYCOPYR/FORMOTEROL 160/9/4.8MCG INHALER 2 PUFF IH (22:00)
[2025-09-24] MEDS: IPRATROPIUM/ALBUTEROL 3 ML NEB IH (22:00)
[2025-09-24] MEDS: TRAZODONE 50MG TABLET 150 MG PO (22:09)
[2025-09-24] MEDS: PROPRANOLOL 20MG TAB 20 MG PO (22:09)
[2025-09-24 23:17] LABS: Troponin I 0.04 ng/ml (0.00-0.034)
[2025-09-25] VITALS (42 sets, daily range): BP systolic 90–180; BP diastolic 65–115; PULSE 75–113; RESP 15–28; TEMP 36.2–37.1; O2SAT 90–100; BMI 22.8
[2025-09-25] MEDS: IPRATROPIUM/ALBUTEROL 3 ML NEB IH ×6 (02:35→21:09)
[2025-09-25] MEDS: LEVALBUTEROL 1.25MG/3ML NEB 1.25 MG IH ×2 (02:53→03:21)
--- NOTE | 2025-09-25 03:03 | PC.NURSE ---
at 245 called Bev about a change in his status. PT is not speaking clear. he is mumbling. RT is in the Room giving neb treatment. several respiratory treatments have been given. On the phone the stated that he wants no intubation. But pt does want CPR. Kerri Sanderson SCHOOL AGE PROGRAM ASSOCIATE Was speaking with her at this time. is on her way here from home. Lab is here to draw blood. ALYSSA JUARES RN
--- NOTE | 2025-09-25 03:19 | P.EN_ITS ---
Notified the patient had a change in condition. He has had altered mental status. Very lethargic. Opens eyes to stimuli able to answer some questions but drifts quickly back to sleep. He is audibly wheezing. He has received 1 DuoNeb breathing treatment ordered as Xopenex treatment as he is tachycardic. Patient is here for end-stage COPD, he is supposed to have a consult with [facility] in the morning. Contacted his who states he wishes to be a partial code. She states he did not want intubation but he would want CPR. I did explain to her that outcomes without intubation and only CPR would most likely not be favorable. She verbalized understanding but still wishes for him to have CPR but no intubation. She states that what is what he expressed in the ER. We will continue with treatments. Will try BiPAP if he does not improve. VBG shows worsening resp acidosis. O2 sat remains in low 90's. Bipap initiated. Will move to ICU level care. is here at bedside.
--- NOTE | 2025-09-25 03:21 | XR_ITS ---
PROCEDURE INFORMATION: Exam: XR Chest Exam date and time: 09/25/2025 3:32 AM Age: 70 years old Clinical indication: Dyspnea TECHNIQUE: Imaging protocol: Radiologic exam of the chest. Views: 1 view. COMPARISON: CT ANGIO CHEST PE PROTOCOL 09/23/2025 2:29 PM FINDINGS: Tubes, catheters and devices: Central venous catheter distal tip is in the superior vena cava. Lungs: The lungs are hyperinflated and hyperlucent. A spiculated masslike density is seen in the right upper lobe and there is retraction extending to the right hilum. This is unchanged from the prior examination of 09/23/2025. Granuloma is seen in the left lung base. Pleural spaces: Unremarkable. No pleural effusion. No pneumothorax. Heart/Mediastinum: Unremarkable. No cardiomegaly. Bones/joints: Unremarkable. IMPRESSION: Chronic changes in the right chest and diffuse centrilobular emphysema. No acute infiltrate or other process noted.
[2025-09-25 03:31] LABS: Lactate Venous 0.9 mmol/L (0.4-2.0); VBG HCO3 40.3 mmol/L (23-30); VBG PCO2 78.6 mmol/L (35-51); VBG PH 7.33 mmol/L (7.31-7.41); VBG PO2 108.9 mmol/L (28-40)
--- NOTE | 2025-09-25 04:03 | ECG_ITS ---
APPROVED REPORT Exam: Resting ECG HR:98 bpm ECG Measurements Heart Rate 98 AXES IA 130 P 83 QRSd 104 QRS 77 QT 376 T 70 QTc 432 Conclusion SINUS RHYTHM RIGHT ATRIAL ENLARGEMENT [0.3mV P-WAVE] LEFT ATRIAL ENLARGEMENT [-0.15mV P-WAVE IN V1/V2] TALL T-WAVES, SUGGESTS HYPERKALEMIA ABNORMAL ECG UNCONFIRMED REPORT Electronically signed by : Main Carrington MD 09/25/2025 09:01:11
[2025-09-25 04:06] LABS: Magnesium 1.9 mg/dl (1.6-2.3)
[2025-09-25 04:08] LABS: Albumin Level 4.2 g/dl (3.5-5.0); Chloride 83 mmol/L (98-107); Potassium 5.0 mmoL/L (3.5-5.1); Sodium 134 mmol/L (136-145)
[2025-09-25 04:11] LABS: Alanine Aminotransferase 22 U/L (12-78); Albumin/Globulin Ratio 1.4 (1.1-1.8); Alkaline Phosphatase 76 U/L (38-126); Aspartate Amino Transferase 40 U/L (17-59); Bilirubin,Total 0.3 mg/dl (0.2-1.3); Blood Urea Nitrogen 15 mg/dl (9-20); Calcium 6.1 mg/dl (8.4-10.2); Creatinine Clearance Estimated 73 mL/min (50-200); Creatinine,Serum 0.50 mg/dl (0.66-1.25); Estimated Glomerular Filt Rate 165 ml/min (>60); GFR (African American) 200 ML/MIN (>60); Globulin 3.0 g/dL (1.3-3.2); Glucose 144 mg/dl (74-100); Total Protein,Serum 7.2 g/dl (6.3-8.2)
[2025-09-25] MEDS: LEVALBUTEROL 1.25MG/3ML NEB 2.5 MG IH (04:16)
[2025-09-25 04:23] LABS: Troponin I 0.03 ng/ml (0.00-0.034)
--- NOTE | 2025-09-25 04:23 | PC.NURSE ---
pt to icu at [id number]
[2025-09-25 04:26] LABS: Anion Gap 14.0 mEq/L (5-15); Carbon Dioxide 42 mmol/L (22.0-30.0)
[2025-09-25 04:36] LABS: Hematocrit 33.5 % (42.0-52.0); Immature Granulocytes % 0.4 %; Mean Corpuscular HGB Conc 32.2 g/dL (31.8-35.4); Mean Corpuscular Hemoglobin 28.2 pg (27.0-31.2); Mean Corpuscular Volume 87.5 fl (80-94); Nucleated Red Blood Cells % 0 %; Platelet Count 303 K/mm3 (142-424); Red Blood Count 3.83 M/mm3 (4.60-6.20); Red Cell Distribution Width-SD 47.8 fL; White Blood Count 7.0 K/mm3 (4.8-10.8)
[2025-09-25 05:23] LABS: RBC Morphology Normal; Total Cells Counted 100
[2025-09-25 05:41] LABS: Hemoglobin 11.0 g/dL (14.1-18.0)
[2025-09-25 06:06] LABS: Lactate Venous 1.2 mmol/L (0.4-2.0); VBG HCO3 38.8 mmol/L (23-30); VBG PCO2 60.3 mmol/L (35-51); VBG PH 7.43 mmol/L (7.31-7.41); VBG PO2 151.3 mmol/L (28-40)
--- NOTE | 2025-09-25 07:55 | SW/DCPLANNER ---
Addendum entered by Usha Peace 09/26/25 14:56: I did notifiy ICU nurse (Sarita) that all DME will be set up in the home around 2:15PM. Patient will dsicharge home today w/ Hospice services. Addendum entered by Usha Peace 09/25/25 15:29: Patient/family have decided to pursue Hospice services. Patient will require a bi pap machine thru Hospice. I will update Hayde english/ Henrry and have a bi pap ordered in preparation to discharge home tomorrow. stated that her son will be speaking w/ manufacturing electrician today to have electrical outlets inserted into the room patient will be staying in at their house. expects this to be completed tomorrow. CM will continue to follow up. Patient does not want a hospital bed at this time. Addendum entered by Usha Peace 09/25/25 12:14: AD w/ Hospice at bedside speaking w/ patient and family this AM. Patient, and son are discussing Hospice services at this time and would like additional time prior to making decision. Dr Tomas did speak w/ family after Hospice evaluation as well. Family has requested 5 wishes and I will complete w/ patient and family this afternoon. If patient pursues Hospice Dr Tomas stated that he would discharge once all equipment is set up at home. Original Note: I received a Hospice consult on this patient. Patient information will be faxed to Hayde english/ Henrry this AM. I will follow up once reviewed and establish a time for Hospice to speak w/ patient and family at bedside.
--- NOTE | 2025-09-25 08:14 | HMH.PHAINT1 ---
Pharmacy Intervention Comments: MEDICATION RECONCILIATION COMPLETED ON PATIENT USING EXTERNAL FILL HISTORY FROM PHARMACY AND DISCHARGE SUMMARY FROM PREVIOUS ADMISSION. -ELMA YUAN, VICENTAD
[2025-09-25] MEDS: ASPIRIN 325MG TABLET 325 MG PO (08:37)
[2025-09-25] MEDS: CALCIUM CARBONATE 500MG CHEWTAB 1000 MG PO (08:37)
[2025-09-25] MEDS: PROPRANOLOL 20MG TAB 20 MG PO ×2 (08:37→20:07)
--- NOTE | 2025-09-25 09:26 | EXP.PULM.PN ---
Subjective *Date: 09/25/25 *Time: 09:26 Pulmonology Exam Inpatient Vital signs and Labs for Last 24 Hours: Temp Pulse Resp BP Pulse Ox O2 Del Method O2 Flow Rate 97.3 F L 110 H 20 177/93 H 94 L Nasal Cannula 2 09/25/25 08:12 09/25/25 08:12 09/25/25 08:12 09/25/25 08:12 09/25/25 08:12 09/25/25 09:00 09/25/25 09:00 FiO2 30 09/25/25 06:01 Laboratory Results - last 24 hr 09/24/25 15:54: VBG pH 7.32, VBG pCO2 66.7 H, VBG pO2 73.9 H, VBG HCO3 33.2 H, VBG Total CO2 35.3 H, VBG O2 Saturation 92.9 H, VBG Base Excess 7.0 H, VBG Lactic Acid 2.0 09/24/25 16:07: WBC 9.4 D, RBC 3.30 L, Hgb 9.1 L, Hct 29.1 L, MCV 88.2, MCH 27.6, MCHC 31.3 L, RDW 15.0, Plt Count 285, MPV 8.8, Neut % (Auto) 93.3 H, Lymph % (Auto) 2.9 L, [place] % (Auto) 3.3, Eos % (Auto) 0.0 L, Baso % (Auto) 0.1, Neut # (Auto) 8.8 H, Lymph # (Auto) 0.3 L, [place] # (Auto) 0.3, Eos # (Auto) 0.0, Baso # (Auto) 0.0, Total Counted 100, Neutrophils % (Manual) 92 H, Lymphocytes % (Manual) 4 L, Monocytes % (Manual) 4, Platelet Estimate Normal, RBC Morphology Normal, Sodium 133 L, Potassium 4.2, Chloride 88 L, Carbon Dioxide 36 H, Anion Gap 13.2, BUN 11, Creatinine 0.50 L, Estimated Creat Clear 73, Estimated GFR 165, Est GFR ( Amer) 200 D, Glucose 168 H, Calcium 6.3 L, Magnesium 1.5 L D, Total Bilirubin 0.2, AST 32, ALT 22, Alkaline Phosphatase 80, Troponin I 0.02, Total Protein 7.0, Albumin 3.9, Globulin 3.1, Albumin/Globulin Ratio 1.3 09/24/25 19:15: Troponin I 0.04 H 09/24/25 22:35: Troponin I 0.04 H 09/25/25 03:27: Sodium 134 L, Potassium 5.0, Chloride 83 L, Carbon Dioxide 42 H*, Anion Gap 14.0, BUN 15 D, Creatinine 0.50 L, Estimated Creat Clear 73, Estimated GFR 165, Est GFR ( Amer) 200, Glucose 144 H, Calcium 6.1 L, Magnesium 1.9 D, Total Bilirubin 0.3, AST 40, ALT 22, Alkaline Phosphatase 76, Troponin I 0.03, Total Protein 7.2, Albumin 4.2, Globulin 3.0, Albumin/Globulin Ratio 1.4 09/25/25 03:28: VBG pH 7.33, VBG pCO2 78.6 H, VBG pO2 108.9 H, VBG HCO3 40.3 H, VBG Total CO2 42.7 H, VBG O2 Saturation 97.8 H, VBG Base Excess 14.4 H, VBG Lactic Acid 0.9 09/25/25 04:23: WBC 7.0 D, RBC 3.83 L, Hgb 11.0 L D, Hct 33.5 L, MCV 87.5, MCH 28.2, MCHC 32.2, RDW 14.8, Plt Count 303, MPV 9.0, Neut % (Auto) 86.9 H, Lymph % (Auto) 5.3 L, [place] % (Auto) 7.4, Eos % (Auto) 0.0 L, Baso % (Auto) 0.0 L, Neut # (Auto) 6.1, Lymph # (Auto) 0.4 L, [place] # (Auto) 0.5, Eos # (Auto) 0.0, Baso # (Auto) 0.0, Total Counted 100, Neutrophils % (Manual) 87 H, Lymphocytes % (Manual) 6 L, Monocytes % (Manual) 7, Platelet Estimate Normal, RBC Morphology Normal 09/25/25 05:30: VBG pH 7.43 H, VBG pCO2 60.3 H, VBG pO2 151.3 H, VBG HCO3 38.8 H, VBG Total CO2 40.6 H, VBG O2 Saturation 99.2 H, VBG Base Excess 14.4 H, VBG Lactic Acid 1.2 I & O for Labs for Last 24 Hours: Intake & Output 09/22/25 09/23/25 09/24/25 09/25/25 23:59 23:59 23:59 23:59 Intake Total 100 / 322 342 / 342 Output Total 300 / 1000 1200 / 1200 Balance -200 / -678 -858 / -858 Weight 160 lb 159 lb 13.362 oz Assessment and Plan *Assessment and plan (1) Cavitary lesion of lung: Status: Acute Category: Medical Code(s): J98.4 - Other disorders of lung (2) On home oxygen therapy: Status: Chronic Category: Medical Code(s): Z99.81 - Dependence on supplemental oxygen (3) Acute exacerbation of chronic obstructive pulmonary disease: Status: Acute Category: Medical Code(s): J44.1 - Chronic obstructive pulmonary disease with (acute) exacerbation (4) Acute on chronic respiratory failure with hypoxia and hypercapnia: Status: Acute Category: Medical Code(s): J96.21 - Acute and chronic respiratory failure with hypoxia; J96.22 - Acute and chronic respiratory failure with hypercapnia Plan Mr. Simmons is a 70-year-old male greater than 30 PPD COPD chronic hypoxic respiratory failure small cell lung cancer multiple hospital admissions recently for recurrent respiratory failure presented to ER with worsening respiratory distress found to be in hypercarbic respiratory failure needing noninvasive ventilator therapy and pulmonary was called for further evaluation and management. Chest x-ray upon admission no acute consolidation or airspace changes. Continue to show right upper lobe cavitary nodular opacity. Afebrile. Hemodynamically stable. Leukopenia. COVID-19 and flu PCR panel negative. Blood gas upon admission did not show any hypercarbic respiratory failure, chronic with a pH of 7.41 and pCO2 52.2. Subsequent blood gas shows worsening hypercarbic respiratory failure to 7.33 and 78.6. Currently on Breztri inhaler along with DuoNebs Q4 scheduled. Plan:
--- NOTE | 2025-09-25 10:19 | PC.NURSE ---
RESP CARE NOTE: Per Dr Webber, Patients SPO2 should not be above 95%, preferring to stay between 90-94%. Pt placed on 1 lpm nasal cannula.
--- NOTE | 2025-09-25 10:45 | PC.NURSE ---
HOSPICE NURSE ARRIVED TO THE UNIT TO EVALUATE PATIENT
[2025-09-25 11:22] LABS: ABG HCO3 44.5 mmhg (22.0-26.0); ABG PH 7.36 mmol/L (7.35-7.45); ABG PO2 61.4 mmhg (80-100); ABG TCO2 47.0 mmhg (23-27); Lactate Arterial 1.1 mmol/L (0.4-2.0)
[2025-09-25 11:24] LABS: ABG PCO2 80.9 mmhg (35.0-45.0)
--- NOTE | 2025-09-25 12:16 | PC.NURSE ---
RESP CARE NOTE: Pt placed on BIPAP per Dr Webber verbal order of settings BIPAP 18/6 rate of 18, and FIO2 of 30%. Will monitor patient.
--- NOTE | 2025-09-25 12:20 | PC.NURSE ---
EDNA CAMPOS CDL PROGRAM COORDINATOR STATED TO THIS RN THAT FAMILY MAY HAVE QUESTIONS ABOUT CODE STATUS. THIS RN WENT INTO ROOM ADN VERIFIED CODE STATUS OF DNI. FAMILY STATED THEY HAD CONCERNS ABOUT WHAT THEY WOULD NEED AT HOME. I EDUCATED THEM ABOUT THE AMBULANCE DNR WHICH WAS A DIFFERENT THAN THEW EXPRESSION OF WISHES THAT WE DO IN THE HOSPITAL. I TOOK THEM A FORM TO BE ABLE TO LOOK AT AND THEY ASKED FOR TIME TO READ OVER IT AND MAKE A DECISION.
--- NOTE | 2025-09-25 13:31 | P.PN_ITS ---
Subjective *Date: 09/25/25 *Time: 14:56 Interval history: Will BiPAP overnight. Finally had improvement in blood gas this morning. pH improved to 7.4. Still having significant shortness of breath. Pulmonology evaluating today. Hospice to evaluate at bedside and discuss what care at home would look like. Son and at bedside. Remains afebrile. Remains tachycardic. Medical Exam Vital signs and Labs for Last 24 Hours: Vital Signs Temp Pulse Pulse Resp BP BP Pulse Ox 09/25/25 13:00 98.8 F 96 H 20 140/98 H 99 09/25/25 13:00 09/25/25 12:13 09/25/25 12:00 09/25/25 12:00 90 09/25/25 12:00 98.1 F 96 H 18 146/91 H 100 09/25/25 11:00 97.9 F 92 H 22 148/92 H 93 L 09/25/25 11:00 09/25/25 10:21 98 H 09/25/25 10:21 97 H 09/25/25 10:00 97.9 F 97 H 25 H 172/106 H 97 09/25/25 09:01 97.2 F L 103 H 21 171/93 H 92 L 09/25/25 09:00 09/25/25 08:29 09/25/25 08:12 97.3 F L 110 H 20 177/93 H 94 L 09/25/25 08:00 110 H 09/25/25 07:00 98.1 F 107 H 23 180/111 H 94 L 09/25/25 07:00 09/25/25 06:01 106 H 09/25/25 06:01 106 H 09/25/25 06:01 09/25/25 06:00 98.2 F 110 H 24 166/102 H 97 09/25/25 05:00 09/25/25 05:00 97.7 F 100 H 21 154/94 H 99 09/25/25 04:36 99 H 09/25/25 04:23 97.5 F L 99 H 20 156/100 H 97 09/25/25 04:16 98 H 09/25/25 04:16 99 H 09/25/25 04:00 98 H 100 09/25/25 03:43 95 09/25/25 03:43 09/25/25 03:22 96 H 09/25/25 03:22 94 H 09/25/25 03:01 98.1 F 113 H 24 138/89 96 09/25/25 03:00 09/25/25 02:54 102 H 09/25/25 02:54 106 H 09/25/25 02:35 102 H 09/25/25 02:35 104 H 09/25/25 02:35 94 L 09/25/25 01:00 09/25/25 00:00 98.0 F 96 H 18 161/92 H 100 09/24/25 23:00 09/24/25 22:02 105 H 09/24/25 22:02 109 H 09/24/25 22:02 98 09/24/25 21:00 09/24/25 20:00 09/24/25 20:00 98.8 F 51 L 16 130/51 L 92 L 09/24/25 19:42 132 H 92 L 09/24/25 19:42 98.0 F 132 H 25 H 132/105 H 95 09/24/25 19:00 09/24/25 18:42 98.2 F 105 H 30 H 176/85 H 09/24/25 18:00 118 H 89 L 09/24/25 17:30 122 H 182/107 H 96 09/24/25 17:00 114 H 176/85 H 100 09/24/25 16:40 97 09/24/25 16:30 96 09/24/25 16:25 132 H 189/119 H 94 L 09/24/25 16:12 95 09/24/25 15:50 125 H 159/106 H 97 09/24/25 15:50 98.7 F 125 H 25 H 159/106 H 94 L O2 Del Method O2 Flow Rate FiO2 09/25/25 13:00 BiPAP 09/25/25 13:00 BiPAP 09/25/25 12:13 30 09/25/25 12:00 BiPAP 09/25/25 12:00 09/25/25 12:00 Nasal Cannula 1 09/25/25 11:00 Nasal Cannula 2 09/25/25 11:00 Nasal Cannula 2 09/25/25 10:21 09/25/25 10:21 09/25/25 10:00 Nasal Cannula 2 09/25/25 09:01 Nasal Cannula 2 09/25/25 09:00 Nasal Cannula 2 09/25/25 08:29 Nasal Cannula 2 09/25/25 08:12 Nasal Cannula 2 09/25/25 08:00 09/25/25 07:00 Nasal Cannula 3 09/25/25 07:00 Nasal Cannula 3 09/25/25 06:01 09/25/25 06:01 09/25/25 06:01 30 09/25/25 06:00 09/25/25 05:00 BiPAP 09/25/25 05:00 BiPAP 30 09/25/25 04:36 09/25/25 04:23 09/25/25 04:16 09/25/25 04:16 09/25/25 04:00 BiPAP 09/25/25 03:43 BiPAP 30 09/25/25 03:43 30 09/25/25 03:22 09/25/25 03:22 09/25/25 03:01 Nasal Cannula 3 09/25/25 03:00 Nasal Cannula 3 09/25/25 02:54 09/25/25 02:54 09/25/25 02:35 09/25/25 02:35 09/25/25 02:35 Nasal Cannula 2 09/25/25 01:00 Nasal Cannula 09/25/25 00:00 Nasal Cannula 2 09/24/25 23:00 Nasal Cannula 2 09/24/25 22:02 09/24/25 22:02 09/24/25 22:02 Nasal Cannula 2 09/24/25 21:00 Nasal Cannula 2 09/24/25 20:00 Nasal Cannula 2 09/24/25 20:00 Nasal Cannula 1 09/24/25 19:42 Nasal Cannula 3 09/24/25 19:42 Nasal Cannula 3 09/24/25 19:00 Room Air 09/24/25 18:42 Nasal Cannula 3 09/24/25 18:00 Nasal Cannula 3 09/24/25 17:30 Nasal Cannula 3 09/24/25 17:00 Nasal Cannula 3 09/24/25 16:40 Nasal Cannula 3 09/24/25 16:30 Vapotherm 25 25 09/24/25 16:25 Nasal Cannula 3 09/24/25 16:12 Nasal Cannula 4 09/24/25 15:50 Room Air 09/24/25 15:50 Nasal Cannula 3 Intake and Output 09/24/25 09/25/25 09/25/25 23:59 07:59 15:59 Intake Total 100 / 322 222 / 552 330 / 552 Output Total 300 / 1000 1200 / 1240 40 / 1240 Balance -200 / -678 -978 / -688 290 / -688 Intake: Intake, Oral Amount 222 / 552 330 / 552 Intake, Total IV Amount 100 / 100 Magnesium Sulfate in Water 2 gm 50 / 50 In 50 ml @ 50 mls/hr IV ONCE ONE Rx#:[id number] Magnesium Sulfate in Water 2 gm 50 / 50 In 50 ml @ 50 mls/hr IV ONCE ONE Rx#:[id number] Output: Output, Urine Amount 300 / 1000 700 / 740 40 / 740 Output, Urine Amount (Catheter) 500 / 500 [place] 500 / 500 Other: Number of Unmeasured Voids 0 Weight 72.5 kg Patient Weight 09/25/25 23:59 Weight 72.5 kg Laboratory Results - last 24 hr 09/24/25 15:54: VBG pH 7.32, VBG pCO2 66.7 H, VBG pO2 73.9 H, VBG HCO3 33.2 H, VBG Total CO2 35.3 H, VBG O2 Saturation 92.9 H, VBG Base Excess 7.0 H, VBG Lactic Acid 2.0 09/24/25 16:07: WBC 9.4 D, RBC 3.30 L, Hgb 9.1 L, Hct 29.1 L, MCV 88.2, MCH 27.6, MCHC 31.3 L, RDW 15.0, Plt Count 285, MPV 8.8, Neut % (Auto) 93.3 H, Lymph % (Auto) 2.9 L, [place] % (Auto) 3.3, Eos % (Auto) 0.0 L, Baso % (Auto) 0.1, Neut # (Auto) 8.8 H, Lymph # (Auto) 0.3 L, [place] # (Auto) 0.3, Eos # (Auto) 0.0, Baso # (Auto) 0.0, Total Counted 100, Neutrophils % (Manual) 92 H, Lymphocytes % (Manual) 4 L, Monocytes % (Manual) 4, Platelet Estimate Normal, RBC Morphology Normal, Sodium 133 L, Potassium 4.2, Chloride 88 L, Carbon Dioxide 36 H, Anion Gap 13.2, BUN 11, Creatinine 0.50 L, Estimated Creat Clear 73, Estimated GFR 165, Est GFR ( Amer) 200 D, Glucose 168 H, Calcium 6.3 L, Magnesium 1.5 L D, Total Bilirubin 0.2, AST 32, ALT 22, Alkaline Phosphatase 80, Troponin I 0.02, Total Protein 7.0, Albumin 3.9, Globulin 3.1, Albumin/Globulin Ratio 1.3 09/24/25 19:15: Troponin I 0.04 H 09/24/25 22:35: Troponin I 0.04 H 09/25/25 03:27: Sodium 134 L, Potassium 5.0, Chloride 83 L, Carbon Dioxide 42 H* , Anion Gap 14.0, BUN 15 D, Creatinine 0.50 L, Estimated Creat Clear 73, Estimated GFR 165, Est GFR ( Amer) 200, Glucose 144 H, Calcium 6.1 L, Magnesium 1.9 D, Total Bilirubin 0.3, AST 40, ALT 22, Alkaline Phosphatase 76, Troponin I 0.03, Total Protein 7.2, Albumin 4.2, Globulin 3.0, Albumin/Globulin Ratio 1.4 09/25/25 03:28: VBG pH 7.33, VBG pCO2 78.6 H, VBG pO2 108.9 H, VBG HCO3 40.3 H, VBG Total CO2 42.7 H, VBG O2 Saturation 97.8 H, VBG Base Excess 14.4 H, VBG Lactic Acid 0.9 09/25/25 04:23: WBC 7.0 D, RBC 3.83 L, Hgb 11.0 L D, Hct 33.5 L, MCV 87.5, MCH 28.2, MCHC 32.2, RDW 14.8, Plt Count 303, MPV 9.0, Neut % (Auto) 86.9 H, Lymph % (Auto) 5.3 L, [place] % (Auto) 7.4, Eos % (Auto) 0.0 L, Baso % (Auto) 0.0 L, Neut # (Auto) 6.1, Lymph # (Auto) 0.4 L, [place] # (Auto) 0.5, Eos # (Auto) 0.0, Baso # (Auto) 0.0, Total Counted 100, Neutrophils % (Manual) 87 H, Lymphocytes % (Manual) 6 L, Monocytes % (Manual) 7, Platelet Estimate Normal, RBC Morphology Normal 09/25/25 05:30: VBG pH 7.43 H, VBG pCO2 60.3 H, VBG pO2 151.3 H, VBG HCO3 38.8 H , VBG Total CO2 40.6 H, VBG O2 Saturation 99.2 H, VBG Base Excess 14.4 H, VBG Lactic Acid 1.2 09/25/25 11:20: ABG pH 7.36, ABG pCO2 80.9 H, ABG pO2 61.4 L, ABG HCO3 44.5 H, ABG Total CO2 47.0 H, ABG O2 Saturation 89 L, ABG Base Excess 19.0 H, ABG Lactate 1.1 I & O for Labs for Last 24 Hours: Intake & Output 09/22/25 09/23/25 09/24/25 09/25/25 23:59 23:59 23:59 23:59 Intake Total 100 / 322 552 / 552 Output Total 300 / 1000 1240 / 1240 Balance -200 / -678 -688 / -688 Weight 72.575 kg 72.5 kg Constitutional: Present moderate distress, cachectic, chronically ill appearing and cooperative Head: Present atraumatic and normocephalic ENT: Present normal exam Respiratory: Present accessory muscle use, prolonged expiratory phase, respiratory distress, wheezes and diminished air movement; Absent rhonchi, crackles or normal respiratory effort Comment:: Poor air movement Cardiac: Present Regular Rhythm and Tachycardia GI: Present normal bowel sounds; Absent tenderness Extremities: Present normal inspection and full ROM Skin: Present intact; Absent erythema Neuro: Present Grossly Intact, alert, awake, oriented x 3 and moves all extremities Assessment and Plan *Assessment and plan (1) Acute exacerbation of chronic obstructive pulmonary disease: Status: Acute Category: Medical Code(s): J44.1 - Chronic obstructive pulmonary disease with (acute) exacerbation (2) Respiratory failure: Status: Acute Category: Medical Code(s): J96.90 - Respiratory failure, unspecified, unspecified whether with hypoxia or hypercapnia (3) Severe protein-calorie malnutrition: Status: Acute Category: Medical Code(s): E43 - Unspecified severe protein-calorie malnutrition (4) Pulmonary cachexia due to COPD: Status: Acute Category: Medical Code(s): R64 - Cachexia; J44.9 - Chronic obstructive pulmonary disease, unspecified (5) Cavitary lesion of lung: Status: Acute Category: Medical Code(s): J98.4 - Other disorders of lung (6) On home oxygen therapy: Status: Chronic Category: Medical Code(s): Z99.81 - Dependence on supplemental oxygen (7) Small cell lung cancer: Status: Chronic Qualifiers: Laterality: right Lung location: unspecified part of lung Qualified Code(s): C34.91 - Malignant neoplasm of unspecified part of right bronchus or lung Category: Medical Code(s): C34.90 - Malignant neoplasm of unspecified part of unspecified bronchus or lung (8) Shortness of breath: Status: Acute Category: Medical Code(s): R06.02 - Shortness of breath (9) Tobacco dependence: Status: Chronic Category: Medical Code(s): F17.200 - Nicotine dependence, unspecified, uncomplicated (10) (HFpEF) heart failure with preserved ejection fraction: Status: Acute Category: Medical Code(s): I50.30 - Unspecified diastolic (congestive) heart failure Plan 70-year-old male with history of lung cancer, severe COPD, presents with worsening shortness over the past 2 days. Was just discharged earlier this week as he was improving and on baseline oxygen to complete antibiotics and steroids. Presented to the ER yesterday with symptoms that improved with continuous nebs. After discussion with patient, he preferred to go home on steroids and nebulizer as opposed to admission. Carlos presents today with worsening shortness of breath. After much discussion with the ER, patient has elected to proceed with hospice. Discussed case with ER physician, request admission for treatment overnight and monitoring with possible discharge to hospice in the morning. I decided to admit for further care given patient's respiratory distress. Problems addressed as follows: Acute on chronic hypoxic respiratory failure with hypercapnia due to COPD exacerbation (severe exacerbation) Metastatic small cell lung cancer Cavitary lung lesion of right upper lobe HFpEF - Patient's white count is normal at 9.4, hemoglobin stable at 9. Kidney function normal with BUN 11, creatinine 0.5. Calcium low at 6.3, magnesium low at 1.5. Replacing magnesium with 2 rounds of 2 g IV. Monitor for improvement. Potassium 4.2. Troponin 0.02. BNP elevated yesterday at 502. -Repeat BMP, CBC, magnesium ordered for the morning -Extensive discussion with patient today, wavering on hospice. Still trying to decide on goals of care and next steps. - Review of chart shows echo, last performed in 2021 with elevated RVSP consist ent with HFpEF. Will administer 1 dose Lasix 40 mg IV to assess for improvement due to his HFpEF likely related to his end-stage lung disease. Suspect he also has a component of some pulmonary hypertension secondary to his end-stage COPD. - DuoNebs every 4 hours scheduled - Received methylprednisolone 125 mg once in the ER. Continue methylprednisolone 40 mg IV daily. - Continue BiPAP, see pulm notes for settings. Goal sats greater than 90% but less than 95%. Wean oxygen as necessary - Case discussed with pulmonology, continue DuoNebs every 4 hours, budesonide twice daily. -Blood gas this morning showed worsening hypercapnia with pCO2 of 80. - Hospice consult placed to evaluate for end-stage COPD and transition to hospice at time of discharge. Tobacco use disorder: Counseled on need to stop smoking. Seriously complicates patient's respiratory disease. Continues to smoke and even purchased a pack of cigarettes after discharging this past week. Will use nicotine patch during adm ission. 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 Protein supplementation with meals Continue tamsulosin 0.4 mg nightly for BPH Continue trazodone 100 mg nightly for sleep disorder Continue propranolol 20 mg twice daily for tachycardia/hypertension Full code Lovenox 40 mg subcu daily Regular diet with supplement
--- NOTE | 2025-09-25 13:37 | EXP.PULM.CON ---
History of Present Illness History of present illness: Mr. Simmons is a 70-year-old male greater than 30 PPD COPD chronic hypoxic respiratory failure small cell lung cancer multiple hospital admissions recently for recurrent respiratory failure presented to ER with worsening respiratory distress found to be in hypercarbic respiratory failure needing noninvasive ventilator therapy and pulmonary was called for further evaluation and management. [facility] Disclaimer: The information contained in this section may have been updated after the patient was seen, as this information can be updated by other users. Medical History Hypomagnesemia Hypocalcemia Hypomagnesemia Hypocalcemia COPD exacerbation Hypocalcemia Acute exacerbation of chronic obstructive pulmonary disease Acute on chronic hypoxic respiratory failure Asthma exacerbation in COPD Shortness of breath Acute exacerbation of chronic obstructive pulmonary disease Dyspnea On home oxygen therapy Acute and chronic respiratory failure with hypercapnia Acute exacerbation of chronic obstructive airways disease Community acquired pneumonia Bilateral impacted cerumen Tinnitus Hearing loss Lung nodule Hilar lymphadenopathy Pneumonia Sleep apnea Emphysema/COPD Chronic cough Bronchitis Allergies History of anemia Lung collapse Nodule of right lung Tobacco abuse disorder Tobacco abuse counseling Small cell lung cancer Smoking greater than 30 pack years Chronic hypoxemic respiratory failure COPD (chronic obstructive pulmonary disease) Dyspnea on exertion On home O2 Sinus problem History of chemotherapy History of radiation therapy Personal history of arthritis History of lung disease Hyperlipemia Cancer Asthma Essential hypertension COPD exacerbation Surgical History History of insertion of tunneled central venous catheter (CVC) with port History of colonoscopy Hx of cardiac catheterization Normal coronary arteries History of sinus surgery Family History Diabetes Cancer Social History Smoking Status: Current every day smoker tobacco type: cigarettes packs per day: 1 years smoked: 50 alcohol intake: former substance use type: denies use current occupational status: retired and disabled Travel in the last 8 weeks?: None household members: spouse housing: house caffeine: Yes Have you lived/traveled outside [place] in past 30 days?: No Contact w/someone who lives/traveled outside [place] past 30 days?: No Exposure to someone with infectious disease in past 14 days?: No Do you have a fever (greater than 100.4 F or 38 C)?: No Have you tested positive for COVID-19?: No Exposed to someone with COVID-19 in past 14 days?: No Do you have a sore throat?: No Do you have a cough?: No Do you have any weakness?: No Do you have any diarrhea?: No Are you experiencing any unusual bleeding?: No Do you have any muscle aches/pain?: No Do you have any abdominal pain?: No Are you experiencing loss of taste or smell?: No Review of Systems Constitutional Constitutional: Reports anorexia, Reports body ache(s) and Reports fatigue Eyes Eyes: Denies eye discharge, Denies dry eyes, Denies irritation and Denies itchy eyes ENT Ears, Nose, Mouth, and Throat: Denies dizziness, Denies lip swelling and Denies throat swelling *Cardiovascular Cardiovascular: Reports dyspnea and Reports dyspnea on exertion *Respiratory Respiratory: Denies change in phlegm color, Reports chest congestion, Reports cough, Reports dyspnea, Reports dyspnea on exertion, Denies excessive phlegm production and Reports wheezing *Gastrointestinal Gastrointestinal: Denies abdominal pain, Denies belching and Denies cramping *Musculoskeletal Musculoskeletal: Denies numbness *Neurologic Neurologic: Denies abnormal speech, Denies dizziness and Denies numbness Psychiatric Psychiatric: Denies homicidal ideation and Denies suicidal ideation Endocrine Endocrine: Reports fatigue and Denies heat intolerance Hematologic/Lymphatic Hematologic/Lymphatic: Denies easy bleeding and Denies lymphadenopathy Allergic/Immunologic Allergic/Immunologic: Denies itchy eyes, Denies lip swelling, Denies throat swelling and Reports wheezing Pulmonology Exam Inpatient Vital signs and Labs for Last 24 Hours: Temp Pulse Resp BP Pulse Ox O2 Del Method O2 Flow Rate 98.8 F 96 H 20 140/98 H 99 BiPAP 1 09/25/25 13:00 09/25/25 13:00 09/25/25 13:00 09/25/25 13:00 09/25/25 13:00 09/25/25 13:00 09/25/25 12:00 FiO2 30 09/25/25 12:13 Laboratory Results - last 24 hr 09/24/25 15:54: VBG pH 7.32, VBG pCO2 66.7 H, VBG pO2 73.9 H, VBG HCO3 33.2 H, VBG Total CO2 35.3 H, VBG O2 Saturation 92.9 H, VBG Base Excess 7.0 H, VBG Lactic Acid 2.0 09/24/25 16:07: WBC 9.4 D, RBC 3.30 L, Hgb 9.1 L, Hct 29.1 L, MCV 88.2, MCH 27.6, MCHC 31.3 L, RDW 15.0, Plt Count 285, MPV 8.8, Neut % (Auto) 93.3 H, Lymph % (Auto) 2.9 L, [place] % (Auto) 3.3, Eos % (Auto) 0.0 L, Baso % (Auto) 0.1, Neut # (Auto) 8.8 H, Lymph # (Auto) 0.3 L, [place] # (Auto) 0.3, Eos # (Auto) 0.0, Baso # (Auto) 0.0, Total Counted 100, Neutrophils % (Manual) 92 H, Lymphocytes % (Manual) 4 L, Monocytes % (Manual) 4, Platelet Estimate Normal, RBC Morphology Normal, Sodium 133 L, Potassium 4.2, Chloride 88 L, Carbon Dioxide 36 H, Anion Gap 13.2, BUN 11, Creatinine 0.50 L, Estimated Creat Clear 73, Estimated GFR 165, Est GFR ( Amer) 200 D, Glucose 168 H, Calcium 6.3 L, Magnesium 1.5 L D, Total Bilirubin 0.2, AST 32, ALT 22, Alkaline Phosphatase 80, Troponin I 0.02, Total Protein 7.0, Albumin 3.9, Globulin 3.1, Albumin/Globulin Ratio 1.3 09/24/25 19:15: Troponin I 0.04 H 09/24/25 22:35: Troponin I 0.04 H 09/25/25 03:27: Sodium 134 L, Potassium 5.0, Chloride 83 L, Carbon Dioxide 42 H*, Anion Gap 14.0, BUN 15 D, Creatinine 0.50 L, Estimated Creat Clear 73, Estimated GFR 165, Est GFR ( Amer) 200, Glucose 144 H, Calcium 6.1 L, Magnesium 1.9 D, Total Bilirubin 0.3, AST 40, ALT 22, Alkaline Phosphatase 76, Troponin I 0.03, Total Protein 7.2, Albumin 4.2, Globulin 3.0, Albumin/Globulin Ratio 1.4 09/25/25 03:28: VBG pH 7.33, VBG pCO2 78.6 H, VBG pO2 108.9 H, VBG HCO3 40.3 H, VBG Total CO2 42.7 H, VBG O2 Saturation 97.8 H, VBG Base Excess 14.4 H, VBG Lactic Acid 0.9 09/25/25 04:23: WBC 7.0 D, RBC 3.83 L, Hgb 11.0 L D, Hct 33.5 L, MCV 87.5, MCH 28.2, MCHC 32.2, RDW 14.8, Plt Count 303, MPV 9.0, Neut % (Auto) 86.9 H, Lymph % (Auto) 5.3 L, [place] % (Auto) 7.4, Eos % (Auto) 0.0 L, Baso % (Auto) 0.0 L, Neut # (Auto) 6.1, Lymph # (Auto) 0.4 L, [place] # (Auto) 0.5, Eos # (Auto) 0.0, Baso # (Auto) 0.0, Total Counted 100, Neutrophils % (Manual) 87 H, Lymphocytes % (Manual) 6 L, Monocytes % (Manual) 7, Platelet Estimate Normal, RBC Morphology Normal 09/25/25 05:30: VBG pH 7.43 H, VBG pCO2 60.3 H, VBG pO2 151.3 H, VBG HCO3 38.8 H, VBG Total CO2 40.6 H, VBG O2 Saturation 99.2 H, VBG Base Excess 14.4 H, VBG Lactic Acid 1.2 09/25/25 11:20: ABG pH 7.36, ABG pCO2 80.9 H, ABG pO2 61.4 L, ABG HCO3 44.5 H, ABG Total CO2 47.0 H, ABG O2 Saturation 89 L, ABG Base Excess 19.0 H, ABG Lactate 1.1 I & O for Labs for Last 24 Hours: Intake & Output 09/22/25 09/23/25 09/24/25 09/25/25 23:59 23:59 23:59 23:59 Intake Total 100 / 322 552 / 552 Output Total 300 / 1000 1240 / 1240 Balance -200 / -678 -688 / -688 Weight 160 lb 159 lb 13.362 oz Constitutional: Present severe distress Head: Present normocephalic and atraumatic ENT: Present normal exam, normal oropharynx and mucous membranes moist Neck: Present normal inspection and full ROM Respiratory: Present prolonged expiratory phase, respiratory distress, wheezes and diminished air movement; Absent normal respiratory effort or able to speak in complete sentences Cardiac: Present S1/S2, Tachycardia and radial pulses present GI: Present soft and distention; Absent tenderness or guarding Skin: Present intact; Absent cyanosis or jaundice Neuro: Present alert, awake and oriented x 3 Extremities: Present normal inspection; Absent clubbing or cyanosis Psychiatric: Present normal affect and cooperative Meds Home Medications and Allergies Home Medications ?Medication ?Instructions ?Recorded ?Confirmed ?Type trazodone 150 mg tablet 150 mg PO HS 07/03/22 09/24/25 History aspirin 325 mg tablet 325 mg PO DAILY 05/11/23 09/24/25 History propranolol 20 mg tablet 20 mg PO BID 08/23/24 09/24/25 History calcium carbonate (Calcium 500) 1,000 mg (2 x 500 mg calcium 10/01/24 09/24/25 Rx (1,250 mg)) PO DAILY #10 tabs ferrous sulfate 325 mg (65 mg 325 mg PO DAILY #90 tabs 11/29/24 09/24/25 Rx iron) tablet albuterol sulfate 90 mcg/actuation 2 inh inhalation QID PRN shortness 07/11/25 09/24/25 Rx aerosol inhaler of breath or wheezing 90 days #8.5 grams azelastine 137 mcg (0.1 %) nasal 1 spray intranasal Q6HP PRN 08/11/25 09/24/25 History spray allergy symptoms budesonide 160 mcg-glycopyr 9 2 inh inhalation BID 90 days #10.7 08/21/25 09/24/25 Rx mcg-formot 4.8 mcg/actuation HFA grams inhaler (Breztri Aerosphere) prednisone 20 mg tablet 40 mg (2 x 20 mg) PO DAILY 4 days 09/19/25 09/24/25 Rx #8 tabs ipratropium 0.5 mg-albuterol 3 mg 3 ml inhalation QIDP PRN Shortness 09/21/25 09/24/25 Rx (2.5 mg base)/3 mL nebulization Of Breath Or Wheezing 90 days #180 soln mL azithromycin 250 mg tablet 250 mg PO DIRECTED 09/24/25 09/25/25 History New Prescriptions to Start Prescriptions: Allergies Allergy/AdvReac Type Severity Reaction Status Date / Time silver (From Tegaderm AG Allergy Severe Rash Verified 09/12/25 09:56 Mesh) doxycycline Allergy Mild GI upset Verified 09/12/25 09:56 Penicillins (PENICILLINS) Allergy Mild Unknown Verified 09/12/25 09:56 allergy reaction amitriptyline AdvReac Intermediate gi upset Verified 09/12/25 09:56 adhesive AdvReac Rash Verified 09/12/25 09:56 hydrocodone AdvReac gi upset Verified 09/12/25 09:56 Results Laboratory Findings 09/25/25 04:23 09/25/25 03:27 ABG ABG pH 7.36 mmol/L (7.35-7.45) 09/25/25 11:20 ABG pCO2 80.9 mmhg (35.0-45.0) H 09/25/25 11:20 ABG pO2 61.4 mmhg (80-100) L 09/25/25 11:20 ABG O2 Saturation 89 % (90-100) L 09/25/25 11:20 Abnormal lab findings: Abnormal Labs 09/24/25 09/24/25 09/24/25 15:54 16:07 19:15 RBC 3.30 L Hgb 9.1 L Hct 29.1 L MCHC 31.3 L Neut % (Auto) 93.3 H Lymph % (Auto) 2.9 L Eos % (Auto) 0.0 L Baso % (Auto) Neut # (Auto) 8.8 H Lymph # (Auto) 0.3 L Neutrophils % (Manual) 92 H Lymphocytes % (Manual) 4 L ABG pCO2 ABG pO2 ABG HCO3 ABG Total CO2 ABG O2 Saturation ABG Base Excess VBG pH VBG pCO2 66.7 H VBG pO2 73.9 H VBG HCO3 33.2 H VBG Total CO2 35.3 H VBG O2 Saturation 92.9 H VBG Base Excess 7.0 H Sodium 133 L Chloride 88 L Carbon Dioxide 36 H Creatinine 0.50 L Glucose 168 H Calcium 6.3 L Magnesium 1.5 L D Troponin I 0.04 H 09/24/25 09/25/25 09/25/25 22:35 03:27 03:28 RBC Hgb Hct MCHC Neut % (Auto) Lymph % (Auto) Eos % (Auto) Baso % (Auto) Neut # (Auto) Lymph # (Auto) Neutrophils % (Manual) Lymphocytes % (Manual) ABG pCO2 ABG pO2 ABG HCO3 ABG Total CO2 ABG O2 Saturation ABG Base Excess VBG pH VBG pCO2 78.6 H VBG pO2 108.9 H VBG HCO3 40.3 H VBG Total CO2 42.7 H VBG O2 Saturation 97.8 H VBG Base Excess 14.4 H Sodium 134 L Chloride 83 L Carbon Dioxide 42 H* Creatinine 0.50 L Glucose 144 H Calcium 6.1 L Magnesium Troponin I 0.04 H 09/25/25 09/25/25 09/25/25 04:23 05:30 11:20 RBC 3.83 L Hgb 11.0 L D Hct 33.5 L MCHC Neut % (Auto) 86.9 H Lymph % (Auto) 5.3 L Eos % (Auto) 0.0 L Baso % (Auto) 0.0 L Neut # (Auto) Lymph # (Auto) 0.4 L Neutrophils % (Manual) 87 H Lymphocytes % (Manual) 6 L ABG pCO2 80.9 H ABG pO2 61.4 L ABG HCO3 44.5 H ABG Total CO2 47.0 H ABG O2 Saturation 89 L ABG Base Excess 19.0 H VBG pH 7.43 H VBG pCO2 60.3 H VBG pO2 151.3 H VBG HCO3 38.8 H VBG Total CO2 40.6 H VBG O2 Saturation 99.2 H VBG Base Excess 14.4 H Sodium Chloride Carbon Dioxide Creatinine Glucose Calcium Magnesium Troponin I Assessment and Plan *Assessment and plan (1) Acute exacerbation of chronic obstructive pulmonary disease: Status: Acute Category: Medical Code(s): J44.1 - Chronic obstructive pulmonary disease with (acute) exacerbation (2) Acute and chronic respiratory failure: Status: Acute Qualifiers: Respiratory failure complication: hypoxia and hypercapnia Qualified Code(s): J96.21 - Acute and chronic respiratory failure with hypoxia; J96.22 - Acute and chronic respiratory failure with hypercapnia Category: Medical Code(s): J96.20 - Acute and chronic respiratory failure, unspecified whether with hypoxia or hypercapnia (3) Pulmonary cachexia due to COPD: Status: Acute Category: Medical Code(s): R64 - Cachexia; J44.9 - Chronic obstructive pulmonary disease, unspecified (4) On home oxygen therapy: Status: Chronic Category: Medical Code(s): Z99.81 - Dependence on supplemental oxygen (5) Cavitary lesion of lung: Status: Acute Category: Medical Code(s): J98.4 - Other disorders of lung (6) Severe protein-calorie malnutrition: Status: Acute Category: Medical Code(s): E43 - Unspecified severe protein-calorie malnutrition Plan Mr. Simmons is a 70-year-old male greater than 30 PPD COPD chronic hypoxic respiratory failure small cell lung cancer multiple hospital admissions recently for recurrent respiratory failure presented to ER with worsening respiratory distress found to be in hypercarbic respiratory failure needing noninvasive ventilator therapy and pulmonary was called for further evaluation and management. Chest x-ray upon admission no acute consolidation or airspace changes. Continue to show right upper lobe cavitary nodular opacity. Afebrile. Hemodynamically stable. Leukopenia. COVID-19 and flu PCR panel negative. Blood gas upon admission did not show any hypercarbic respiratory failure, chronic with a pH of 7.41 and pCO2 52.2. Subsequent blood gas shows worsening hypercarbic respiratory failure to 7.33 and 78.6. Currently on Breztri inhaler along with DuoNebs Q4 scheduled. Patient admits worsening respiratory symptoms after coming to the hospital. Auscultation severe respiratory distress unable to speak in complete sentences diffuse wheezing. Plan: DuoNebs every 4 hours along with Pulmicort every 12 scheduled Continue methylprednisolone 40 mg daily already: Continue oxygen supplementation to maintain O2 saturation goal of 90 to 95% advised to wean oxygen supplementation and saturating greater than 95%. Repeat ABG, r worsening hypercarbic respiratory failure. Will initiate noninvasive ventilator therapy. Hospice consult was placed, will follow with recommendations. # Thank you for involving pulmonary in this patient care. Will continue to follow.
--- NOTE | 2025-09-25 14:59 | EXP.EVENT.NO ---
Advance care planning note: Active diagnosis: End-stage COPD, lung cancer, tobacco use disorder, HFpEF, pulmonary cachexia, acute on chronic respiratory failure with hypoxia and hypercapnia The patient's active diagnoses are of sufficient risk that focused discussion on advanced care planning is indicated in order to allow the patient to thoughtfully consider personal goals of care; and, if situations arise that prevent the ability to personally give input, to ensure appropriate representation of their personal desires through documentation or informed surrogate decision makers. Discussion: Persons present and participating in discussion: Patient, , son, Dr. Tomas, social work ([facility]) Discussion: Discussed patient's severity of illness, his progressive lung disease, his recurrent admissions. Discussed treatment courses to prolong life and address underlying disease versus focus on comfort and quality. Patient at this time unsure what he wants to do. On admission was contemplating hospice. Hospice has evaluated him this morning and talked about the potential for home with hospice. Patient and family would like to talk further. Family had questions on CODE STATUS, how they would manage him at home and if they could call 911, what hospice may do to support them. Questions were answered. Patient remains in moderate distress. Necessitating BiPAP. Has progressive acute on chronic respiratory failure with hypercapnia. Time spent: Total time spent [id number] in education and discussion directly related to advance care plannin minutes Nicolas Tomas 09/25/2025 11:30-11:50
--- NOTE | 2025-09-25 15:17 | PC.NURSE ---
pt was taken off bipap at approximately 1450 to discuss hospice with his and son. MD villalba aware.
[2025-09-25] MEDS: METHYLPREDNISOLONE SOD SUCC 40MG VIAL 40 MG IV (16:45)
[2025-09-25] MEDS: BUDESONIDE 0.5MG/2ML NEB 0.5 MG IH (17:46)
[2025-09-25] MEDS: TRAZODONE 50MG TABLET 150 MG PO (20:07)
--- NOTE | 2025-09-25 21:14 | XR_ITS ---
PROCEDURE INFORMATION: Exam: XR Chest Exam date and time: 09/25/2025 9:12 PM Age: 70 years old Clinical indication: Other: Low tidal volume on bipap TECHNIQUE: Imaging protocol: Radiologic exam of the chest. Views: 1 view. COMPARISON: 1. CR XR CHEST PORTABLE 09/25/2025 3:32 AM 2. CR XR CHEST PORTABLE 09/23/2025 1:25 PM 3. CR XR CHEST 2V 08/03/2025 9:[address] ANGIO CHEST PE PROTOCOL 08/10/2025 1:49 PM FINDINGS: Lungs: Emphysematous changes. Stable spiculated appearing density in the right lung apex that corresponds to the cavitary process seen on prior CTs dating back to 08/10/2025. This represents a new finding compared to older studies prior to chest x-ray of 08/03/2025. Right suprahilar region scarring again noted. Lungs are otherwise clear. Pleural spaces: Unremarkable. No pleural effusion. No pneumothorax. Heart/Mediastinum: Unremarkable. No cardiomegaly. Bones/joints: Unremarkable. IMPRESSION: 1. Stable chest x-ray with no acute disease. 2. Spiculated density in the right lung apex redemonstrated. Benign versus malignant etiologies can not be differentiated. Continued follow-up and/or further assessment with CT PET scan should be considered.
--- NOTE | 2025-09-25 21:15 | PC.NURSE ---
Addendum entered by Sarita Swartz RN 09/26/25 03:46: Pt refused to be placed back on BIPAP last night. This morning, pts son came out of room and asked that pt be placed back on BIPAP because his O2 saw was 90%. Pt placed back on BIPAP approx 10 mins ago by RT. Original Note: Pt noted to have low tidal volume on BIPAP. Notfied RT who spoke with Dr Webber who states to take pt off BIPAP, place back on NC and obtain a chest x-ray. Chest x-ray ordered and Hospitalist notified.
[2025-09-26] VITALS (22 sets, daily range): BP systolic 104–175; BP diastolic 63–99; PULSE 83–114; RESP 14–28; TEMP 36.3–37.1; O2SAT 86–100; BMI 16.5
[2025-09-26] MEDS: MELATONIN 5MG TABLET 5 MG PO (01:19)
[2025-09-26] MEDS: IPRATROPIUM/ALBUTEROL 3 ML NEB IH ×5 (01:49→15:24)
[2025-09-26 05:42] LABS: Hematocrit 33.8 % (42.0-52.0); Hemoglobin 10.5 g/dL (14.1-18.0); Immature Granulocytes % 0.3 %; Mean Corpuscular HGB Conc 31.1 g/dL (31.8-35.4); Mean Corpuscular Hemoglobin 27.6 pg (27.0-31.2); Mean Corpuscular Volume 88.9 fl (80-94); Nucleated Red Blood Cells % 0 %; Platelet Count 338 K/mm3 (142-424); Red Blood Count 3.80 M/mm3 (4.60-6.20); Red Cell Distribution Width-SD 47.8 fL; White Blood Count 10.8 K/mm3 (4.8-10.8)
[2025-09-26 05:52] LABS: Blood Urea Nitrogen 37 mg/dl (9-20); Calcium 6.8 mg/dl (8.4-10.2); Chloride 81 mmol/L (98-107); Creatinine Clearance Estimated 52 mL/min (50-200); Creatinine,Serum 0.80 mg/dl (0.66-1.25); Estimated Glomerular Filt Rate 96 ml/min (>60); GFR (African American) 116 ML/MIN (>60); Glucose 83 mg/dl (74-100); Magnesium 2.2 mg/dl (1.6-2.3); Potassium 4.8 mmoL/L (3.5-5.1); Sodium 130 mmol/L (136-145)
[2025-09-26] MEDS: BUDESONIDE 0.5MG/2ML NEB 0.5 MG IH (05:52)
[2025-09-26 05:58] LABS: Anion Gap 14.8 mEq/L (5-15); Carbon Dioxide 39 mmol/L (22.0-30.0)
[2025-09-26 08:32] LABS: Lactate Venous 1.2 mmol/L (0.4-2.0); VBG HCO3 35.8 mmol/L (23-30); VBG PCO2 56.2 mmol/L (35-51); VBG PH 7.42 mmol/L (7.31-7.41); VBG PO2 69.4 mmol/L (28-40)
--- NOTE | 2025-09-26 09:34 | P.PN_ITS ---
Subjective *Date: 09/26/25 *Time: 16:04 Interval history: No acute respiratory events overnight. No significant change in his respiratory status at this point of time. Pulmonology Exam Inpatient Vital signs and Labs for Last 24 Hours: Temp Pulse Resp BP Pulse Ox O2 Del Method O2 Flow Rate 97.3 F L 105 H 22 159/97 H 93 L BiPAP 2 09/26/25 08:00 09/26/25 08:00 09/26/25 08:00 09/26/25 08:00 09/26/25 08:00 09/26/25 08:00 09/26/25 04:00 FiO2 35 09/26/25 05:54 Laboratory Results - last 24 hr 09/25/25 11:20: ABG pH 7.36, ABG pCO2 80.9 H, ABG pO2 61.4 L, ABG HCO3 44.5 H, ABG Total CO2 47.0 H, ABG O2 Saturation 89 L, ABG Base Excess 19.0 H, ABG Lactate 1.1 09/26/25 04:44: WBC 10.8 D, RBC 3.80 L, Hgb 10.5 L, Hct 33.8 L, MCV 88.9, MCH 27.6, MCHC 31.1 L, RDW 14.7, Plt Count 338, MPV 9.4, Neut % (Auto) 81.3 H, Lymph % (Auto) 7.4 L, [place] % (Auto) 10.7 H, Eos % (Auto) 0.2, Baso % (Auto) 0.1, Neut # (Auto) 8.8 H, Lymph # (Auto) 0.8, [place] # (Auto) 1.2 H, Eos # (Auto) 0.0, Baso # (Auto) 0.0, Sodium 130 L, Potassium 4.8, Chloride 81 L, Carbon Dioxide 39 H, Anion Gap 14.8, BUN 37 H D, Creatinine 0.80 D, Estimated Creat Clear 52, Estimated GFR 96, Est GFR ( Amer) 116 D, Glucose 83, Calcium 6.8 L, Magnesium 2.2 D 09/26/25 08:18: VBG pH 7.42 H, VBG pCO2 56.2 H, VBG pO2 69.4 H, VBG HCO3 35.8 H, VBG Total CO2 37.5 H, VBG O2 Saturation 93.4 H, VBG Base Excess 11.4 H, VBG Lactic Acid 1.2 Temp Pulse Resp BP Pulse Ox O2 Del Method O2 Flow Rate 98.8 F 96 H 20 140/98 H 99 BiPAP 1 09/25/25 13:00 09/25/25 13:00 09/25/25 13:00 09/25/25 13:00 09/25/25 13:00 09/25/25 13:00 09/25/25 12:00 FiO2 30 09/25/25 12:13 Laboratory Results - last 24 hr 09/24/25 15:54: VBG pH 7.32, VBG pCO2 66.7 H, VBG pO2 73.9 H, VBG HCO3 33.2 H, VBG Total CO2 35.3 H, VBG O2 Saturation 92.9 H, VBG Base Excess 7.0 H, VBG Lactic Acid 2.0 09/24/25 16:07: WBC 9.4 D, RBC 3.30 L, Hgb 9.1 L, Hct 29.1 L, MCV 88.2, MCH 27.6, MCHC 31.3 L, RDW 15.0, Plt Count 285, MPV 8.8, Neut % (Auto) 93.3 H, Lymph % (Auto) 2.9 L, [place] % (Auto) 3.3, Eos % (Auto) 0.0 L, Baso % (Auto) 0.1, Neut # (Auto) 8.8 H, Lymph # (Auto) 0.3 L, [place] # (Auto) 0.3, Eos # (Auto) 0.0, Baso # (Auto) 0.0, Total Counted 100, Neutrophils % (Manual) 92 H, Lymphocytes % (Manual) 4 L, Monocytes % (Manual) 4, Platelet Estimate Normal, RBC Morphology Normal, Sodium 133 L, Potassium 4.2, Chloride 88 L, Carbon Dioxide 36 H, Anion Gap 13.2, BUN 11, Creatinine 0.50 L, Estimated Creat Clear 73, Estimated GFR 165, Est GFR ( Amer) 200 D, Glucose 168 H, Calcium 6.3 L, Magnesium 1.5 L D, Total Bilirubin 0.2, AST 32, ALT 22, Alkaline Phosphatase 80, Troponin I 0.02, Total Protein 7.0, Albumin 3.9, Globulin 3.1, Albumin/Globulin Ratio 1.3 09/24/25 19:15: Troponin I 0.04 H 09/24/25 22:35: Troponin I 0.04 H 09/25/25 03:27: Sodium 134 L, Potassium 5.0, Chloride 83 L, Carbon Dioxide 42 H* , Anion Gap 14.0, BUN 15 D, Creatinine 0.50 L, Estimated Creat Clear 73, Estimated GFR 165, Est GFR ( Amer) 200, Glucose 144 H, Calcium 6.1 L, Magnesium 1.9 D, Total Bilirubin 0.3, AST 40, ALT 22, Alkaline Phosphatase 76, Troponin I 0.03, Total Protein 7.2, Albumin 4.2, Globulin 3.0, Albumin/Globulin Ratio 1.4 09/25/25 03:28: VBG pH 7.33, VBG pCO2 78.6 H, VBG pO2 108.9 H, VBG HCO3 40.3 H, VBG Total CO2 42.7 H, VBG O2 Saturation 97.8 H, VBG Base Excess 14.4 H, VBG Lactic Acid 0.9 09/25/25 04:23: WBC 7.0 D, RBC 3.83 L, Hgb 11.0 L D, Hct 33.5 L, MCV 87.5, MCH 28.2, MCHC 32.2, RDW 14.8, Plt Count 303, MPV 9.0, Neut % (Auto) 86.9 H, Lymph % (Auto) 5.3 L, [place] % (Auto) 7.4, Eos % (Auto) 0.0 L, Baso % (Auto) 0.0 L, Neut # (Auto) 6.1, Lymph # (Auto) 0.4 L, [place] # (Auto) 0.5, Eos # (Auto) 0.0, Baso # (Auto) 0.0, Total Counted 100, Neutrophils % (Manual) 87 H, Lymphocytes % (Manual) 6 L, Monocytes % (Manual) 7, Platelet Estimate Normal, RBC Morphology Normal 09/25/25 05:30: VBG pH 7.43 H, VBG pCO2 60.3 H, VBG pO2 151.3 H, VBG HCO3 38.8 H , VBG Total CO2 40.6 H, VBG O2 Saturation 99.2 H, VBG Base Excess 14.4 H, VBG Lactic Acid 1.2 09/25/25 11:20: ABG pH 7.36, ABG pCO2 80.9 H, ABG pO2 61.4 L, ABG HCO3 44.5 H, ABG Total CO2 47.0 H, ABG O2 Saturation 89 L, ABG Base Excess 19.0 H, ABG Lactate 1.1 I & O for Labs for Last 24 Hours: Intake & Output 09/23/25 09/24/25 09/25/25 09/26/25 23:59 23:59 23:59 23:59 Intake Total 100 / 322 792 / 792 Output Total 300 / 1000 1575 / 1675 560 / 560 Balance -200 / -678 -783 / -883 -560 / -560 Weight 160 lb 159 lb 13.362 oz 115 lb Intake & Output 09/22/25 09/23/25 09/24/25 09/25/25 23:59 23:59 23:59 23:59 Intake Total 100 / 322 552 / 552 Output Total 300 / 1000 1240 / 1240 Balance -200 / -678 -688 / -688 Weight 160 lb 159 lb 13.362 oz Constitutional: Present severe distress Head: Present normocephalic and atraumatic ENT: Present normal exam, normal oropharynx and mucous membranes moist Neck: Present normal inspection and full ROM Respiratory: Present prolonged expiratory phase, respiratory distress, wheezes and diminished air movement; Absent normal respiratory effort or able to speak in complete sentences Cardiac: Present S1/S2, Tachycardia and radial pulses present GI: Present soft and distention; Absent tenderness or guarding Skin: Present intact; Absent cyanosis or jaundice Neuro: Present alert, awake and oriented x 3 Extremities: Present normal inspection; Absent clubbing or cyanosis Psychiatric: Present normal affect and cooperative Assessment and Plan *Assessment and plan (1) Acute exacerbation of chronic obstructive pulmonary disease: Status: Acute Category: Medical Code(s): J44.1 - Chronic obstructive pulmonary disease with (acute) exacerbation (2) Acute and chronic respiratory failure: Status: Acute Qualifiers: Respiratory failure complication: hypoxia and hypercapnia Qualified Code(s): J96.21 - Acute and chronic respiratory failure with hypoxia; J96.22 - Acute and chronic respiratory failure with hypercapnia Category: Medical Code(s): J96.20 - Acute and chronic respiratory failure, unspecified whether with hypoxia or hypercapnia (3) Pulmonary cachexia due to COPD: Status: Acute Category: Medical Code(s): R64 - Cachexia; J44.9 - Chronic obstructive pulmonary disease, unspecified (4) On home oxygen therapy: Status: Chronic Category: Medical Code(s): Z99.81 - Dependence on supplemental oxygen (5) Cavitary lesion of lung: Status: Acute Category: Medical Code(s): J98.4 - Other disorders of lung (6) Severe protein-calorie malnutrition: Status: Acute Category: Medical Code(s): E43 - Unspecified severe protein-calorie malnutrition Plan Mr. Simmons is a 70-year-old male greater than 30 PPD COPD chronic hypoxic respiratory failure small cell lung cancer multiple hospital admissions recently for recurrent respiratory failure presented to ER with worsening respiratory distress found to be in hypercarbic respiratory failure needing su nvasive ventilator therapy and pulmonary was called for further evaluation and management. Chest x-ray upon admission no acute consolidation or airspace changes. Continue to show right upper lobe cavitary nodular opacity. Afebrile. Hemodynamically stable. Leukopenia. COVID-19 and flu PCR panel negative. Blood gas upon admission did not show any hypercarbic respiratory failure, chronic with a pH of 7.41 and pCO2 52.2. Subsequent blood gas shows worsening hypercarbic respiratory failure to 7.33 and 78.6. Currently on Breztri inhaler along with DuoNebs Q4 scheduled. Interval Update: Admits compliance with BiPAP therapy overnight. Blood gas from this morning significantly improved from prior showing chronic hypercarbia. No significant change with respect respiratory status from yesterday, continued show diffuse wheezing and using accessory muscles. Continue to receive DuoNebs every 4 hours along with Pulmicort every 12 scheduled and IV steroids. Hospice team evaluated patient today, as per the family patient is going home with palliative care and not hospice care. Patient family would like to continue ongoing current medical management of his acute COPD exacerbation with nebulization therapies steroids and also to continue noninvasive ventilatory therapy for his chronic hypercarbic respiratory failure. Plan: DuoNebs every 4 hours along with Pulmicort every 12 scheduled Continue methylprednisolone 40 mg daily already, can be weaned to prednisone 40 mg daily to complete a total of 5-day course Continue oxygen supplementation to maintain O2 saturation goal of 90 to 95% advised to wean oxygen supplementation and saturating greater than 95%. Continue BiPAP therapy at night for chronic hypercarbic respiratory failure at 6/16 and FiO2 of 30%. Given no acute pulmonary parenchymal changes CT scan patient recent frequent pulmonary exacerbations the plan was made to initiate the patient on azithromycin Thursday at 250 mg. One-time dose placed today, will follow-up pharmacy to place the appropriate order tomorrow # Thank you for involving pulmonary in this patient care. Will continue to follow.
[2025-09-26] MEDS: METHYLPREDNISOLONE SOD SUCC 40MG VIAL 40 MG IV (10:46)
[2025-09-26] MEDS: ASPIRIN 325MG TABLET 325 MG PO (10:47)
--- NOTE | 2025-09-26 12:47 | EXP.DC.SUM ---
General Admission date:: 09/24/25 HPI HPI HPI: 70-year-old male patient presents to ER for the third time this week for increased shortness of breath. On the first trip he was admitted treated and then discharged with treatments and steroids. He came in again yesterday improved with treatments in the ER and after discussion with the hospitalist decided to forego admission and return home. He was instructed at that time if symptoms returned he could come back. He did present again to the ER today with complaints of worsening shortness of breath. Denies chest pain. Denies increase in coughing or sputum production. He states he is agreeable to hospice at this time. Workup in the ER on 09/24/2025 was essentially unremarkable and unchanged from prior. Hospital Course Hospital Course Hospital Course: [facility] Total time spent on discharge: 32 minutes on chart review, counseling, documentation, and direct care with patient. Exam Data for Last 24 hours Vital signs and Labs for Last 24 Hours: Temp Pulse Resp BP Pulse Ox O2 Del Method O2 Flow Rate 97.5 F L 106 H 21 168/99 H 87 L Nasal Cannula 3 09/26/25 12:00 09/26/25 12:38 09/26/25 12:00 09/26/25 12:00 09/26/25 12:38 09/26/25 12:38 09/26/25 12:38 FiO2 35 09/26/25 08:00 Laboratory Results - last 24 hr 09/26/25 04:44: WBC 10.8 D, RBC 3.80 L, Hgb 10.5 L, Hct 33.8 L, MCV 88.9, MCH 27.6, MCHC 31.1 L, RDW 14.7, Plt Count 338, MPV 9.4, Neut % (Auto) 81.3 H, Lymph % (Auto) 7.4 L, [place] % (Auto) 10.7 H, Eos % (Auto) 0.2, Baso % (Auto) 0.1, Neut # (Auto) 8.8 H, Lymph # (Auto) 0.8, [place] # (Auto) 1.2 H, Eos # (Auto) 0.0, Baso # (Auto) 0.0, Sodium 130 L, Potassium 4.8, Chloride 81 L, Carbon Dioxide 39 H, Anion Gap 14.8, BUN 37 H D, Creatinine 0.80 D, Estimated Creat Clear 52, Estimated GFR 96, Est GFR ( Amer) 116 D, Glucose 83, Calcium 6.8 L, Magnesium 2.2 D 09/26/25 08:18: VBG pH 7.42 H, VBG pCO2 56.2 H, VBG pO2 69.4 H, VBG HCO3 35.8 H, VBG Total CO2 37.5 H, VBG O2 Saturation 93.4 H, VBG Base Excess 11.4 H, VBG Lactic Acid 1.2 I & O for Last 24 hours: Intake & Output 09/23/25 09/24/25 09/25/25 09/26/25 23:59 23:59 23:59 23:59 Intake Total 100 / 322 792 / 792 Output Total 300 / 1000 1575 / 1675 560 / 560 Balance -200 / -678 -783 / -883 -560 / -560 Weight 72.575 kg 72.5 kg 52.163 kg Results Data Completed and Pending Labs on day of discharge: Labs from last 24 hours 09/26/25 09/26/25 08:18 04:44 WBC 10.8 D RBC 3.80 L Hgb 10.5 L Hct 33.8 L MCV 88.9 MCH 27.6 MCHC 31.1 L RDW 14.7 Plt Count 338 MPV 9.4 Neut % (Auto) 81.3 H Lymph % (Auto) 7.4 L [place] % (Auto) 10.7 H Eos % (Auto) 0.2 Baso % (Auto) 0.1 Neut # (Auto) 8.8 H Lymph # (Auto) 0.8 [place] # (Auto) 1.2 H Eos # (Auto) 0.0 Baso # (Auto) 0.0 VBG pH 7.42 H VBG pCO2 56.2 H VBG pO2 69.4 H VBG HCO3 35.8 H VBG Total CO2 37.5 H VBG O2 Saturation 93.4 H VBG Base Excess 11.4 H VBG Lactic Acid 1.2 Sodium 130 L Potassium 4.8 Chloride 81 L Carbon Dioxide 39 H Anion Gap 14.8 BUN 37 H D Creatinine 0.80 D Estimated Creat Clear 52 Estimated GFR 96 Est GFR ( Amer) 116 D Glucose 83 Calcium 6.8 L Magnesium 2.2 D DS: Diagnosis Discharge Diagnosis (1) Acute exacerbation of chronic obstructive pulmonary disease: Status: Acute Code(s): J44.1 - Chronic obstructive pulmonary disease with (acute) exacerbation (2) Acute and chronic respiratory failure: Status: Acute Code(s): J96.20 - Acute and chronic respiratory failure, unspecified whether with hypoxia or hypercapnia Qualifiers: Respiratory failure complication: hypoxia and hypercapnia Qualified Code(s): J96.21 - Acute and chronic respiratory failure with hypoxia; J96.22 - Acute and chronic respiratory failure with hypercapnia (3) Pulmonary cachexia due to COPD: Status: Acute Code(s): R64 - Cachexia; J44.9 - Chronic obstructive pulmonary disease, unspecified (4) On home oxygen therapy: Status: Chronic Code(s): Z99.81 - Dependence on supplemental oxygen (5) Cavitary lesion of lung: Status: Acute Code(s): J98.4 - Other disorders of lung (6) Severe protein-calorie malnutrition: Status: Acute Code(s): E43 - Unspecified severe protein-calorie malnutrition Meds Home Medications and Allergies Home Medications ?Medication ?Instructions ?Recorded ?Confirmed ?Type trazodone 150 mg tablet 150 mg PO HS 07/03/22 09/24/25 History aspirin 325 mg tablet 325 mg PO DAILY 05/11/23 09/24/25 History calcium carbonate (Calcium 500) 1,000 mg (2 x 500 mg calcium 10/01/24 09/24/25 Rx (1,250 mg)) PO DAILY #10 tabs ferrous sulfate 325 mg (65 mg 325 mg PO DAILY #90 tabs 11/29/24 09/24/25 Rx iron) tablet azelastine 137 mcg (0.1 %) nasal 1 spray intranasal Q6HP PRN 08/11/25 09/24/25 History spray allergy symptoms budesonide 160 mcg-glycopyr 9 2 inh inhalation BID 90 days #10.7 08/21/25 09/24/25 Rx mcg-formot 4.8 mcg/actuation HFA grams inhaler (Breztri Aerosphere) azithromycin 250 mg tablet 250 mg PO DIRECTED 09/24/25 09/25/25 History budesonide 0.5 mg/2 mL suspension 0.5 mg (2 mL) inhalation BIDRT #60 09/26/25 Rx for nebulization (Pulmicort) mL ipratropium bromide 0.02 % 2.5 ml inhalation Q6H PRN 09/26/25 Rx solution for inhalation shortness of breath or wheezing #150 mL levalbuterol HCl 1.25 mg/3 mL 1.25 mg (3 mL) inhalation Q4H PRN 09/26/25 Rx solution for nebulization shortness of breath or wheezing #90 mL levofloxacin 750 mg tablet 750 mg PO DAILY 5 days #5 tabs 09/26/25 Rx prednisone 20 mg tablet 40 mg (2 x 20 mg) PO DAILY 4 days 09/26/25 Rx #8 tabs New Prescriptions to Start Prescriptions: budesonide [Pulmicort] Davis,Joshua ipratropium bromide Davis,Joshua levalbuterol HCl Davis,Joshua levofloxacin Davis,Joshua prednisone Davis,Joshua Allergies Allergy/AdvReac Type Severity Reaction Status Date / Time silver (From Tegaderm AG Allergy Severe Rash Verified 09/12/25 09:56 Mesh) doxycycline Allergy Mild GI upset Verified 09/12/25 09:56 Penicillins (PENICILLINS) Allergy Mild Unknown Verified 09/12/25 09:56 allergy reaction amitriptyline AdvReac Intermediate gi upset Verified 09/12/25 09:56 adhesive AdvReac Rash Verified 09/12/25 09:56 hydrocodone AdvReac gi upset Verified 09/12/25 09:56 Discharge Plan Disposition Patient Disposition: Hospice - Home Condition: Fair Discharge Order Discharge Orders: Discharge Order (Routine); Ordered 09/26/25 Ordered By: Joshua Cannon Follow up Plan Follow up with: Napoleon Webber MD [Physician, Pulmonology] - 10/02/25 1:30 pm Prescriptions/Medication Reconciliation: New budesonide [Pulmicort] 0.5 mg/2 mL Suspension For Nebulization 0.5 mg inhalation BIDRT Qty: 60 0RF levofloxacin 750 mg tablet 750 mg PO DAILY 5 Days Qty: 5 0RF levalbuterol HCl 1.25 mg/3 mL solution for nebulization 1.25 mg inhalation Q4H PRN (Reason: shortness of breath or wheezing) Qty: 90 0RF ipratropium bromide 0.02 % solution 2.5 ml inhalation Q6H PRN (Reason: shortness of breath or wheezing) Qty: 150 0RF Continued trazodone 150 mg tablet 150 mg PO HS ferrous sulfate 325 mg (65 mg iron) tablet 325 mg PO DAILY Qty: 90 3RF Breztri Aerosphere 160-9-4.8 mcg/actuation HFA aerosol inhaler 2 inh inhalation BID 90 Days Qty: 10.7 3RF calcium carbonate [Calcium 500] 500 mg calcium (1,250 mg) tablet,chewable 1,000 mg PO DAILY Qty: 10 0RF azelastine 137 mcg (0.1 %) spray,non-aerosol 1 spray intranasal Q6HP PRN (Reason: allergy symptoms) Rx Instructions: administer into each nostril aspirin 325 mg Tablet 325 mg PO DAILY azithromycin 250 mg tablet 250 mg PO DIRECTED Rx Instructions: take 500 mg on day 1 then 250 mg for next 4 days to complete the pack prednisone 20 mg Tablet 40 mg PO DAILY 4 Days Qty: 8 0RF Discontinued propranolol 20 mg tablet 20 mg PO BID albuterol sulfate 90 mcg/actuation HFA aerosol inhaler 2 inh IH QID PRN (Reason: shortness of breath or wheezing) 90 Days Qty: 8.5 2RF ipratropium-albuterol 0.5 mg-3 mg(2.5 mg base)/3 mL solution for nebulization 3 ml INHALATION QIDP PRN (Reason: Shortness Of Breath Or Wheezing) 90 Days Qty: 180 3RF Problem Reconciliation Problems Reviewed?: Yes Patient Discharge Instructions Patient Instructions: DI for Lung Cancer, DI for Respiratory Failure, DI for Hypoxia, Stop Light COPD, Stop Light Heart Failure Print Language: Lao Providers Primary Care Provider: Main [place] Admit Provider: Nicolas Tomas Attending Provider: Nicolas Tomas
== END 2025-09-26 16:00 | disposition hospice, home (50) | DRG 189 ==
LOC: ER 18:26 → 2ND 18:43 → ICU 09-25 05:30 → 2ND 09-25 13:47
PROVIDERS: Internal Medicine Pulmonary Disease; Nurse Practitioner; Nurse Practitioner Acute Care; Student in an Organized Health Care Education/Training Program; Admitting Provider Internal Medicine Adolescent Medicine; Emergency Provider Student in an Organized Health Care Education/Training Program; PCP Internal Medicine Adolescent Medicine; Visit Provider Internal Medicine Adolescent Medicine
DX: J96.21 Acute and chronic respiratory failure with hypoxia (principal); E43 Unspecified severe protein-calorie malnutrition; G93.41 Metabolic encephalopathy; J44.1 Chronic obstructive pulmonary disease with (acute) exacerbation; I50.32 Chronic diastolic (congestive) heart failure; C34.11 Malignant neoplasm of upper lobe, right bronchus or lung; J96.22 Acute and chronic respiratory failure with hypercapnia; I11.0 Hypertensive heart disease with heart failure; J98.4 Other disorders of lung; I27.20 Pulmonary hypertension, unspecified; G47.9 Sleep disorder, unspecified; N40.0 Benign prostatic hyperplasia without lower urinary tract symptoms; F17.210 Nicotine dependence, cigarettes, uncomplicated; R00.0 Tachycardia, unspecified; Z51.5 Encounter for palliative care; Z68.22 Body mass index [BMI] 22.0-22.9, adult; Z99.81 Dependence on supplemental oxygen; Z88.0 Allergy status to penicillin; Z88.5 Allergy status to narcotic agent; Z88.8 Allergy status to other drugs, medicaments and biological substances; Z91.048 Other nonmedicinal substance allergy status; Z79.82 Long term (current) use of aspirin; Z79.51 Long term (current) use of inhaled steroids; Z79.899 Other long term (current) drug therapy; Z71.6 Tobacco abuse counseling
CPT/HCPCS: 36415; 36600; 51702; 71045; 80048; 80053; 82330; 82803; 83605; 83735; 84484; 85007; 85025; 93005; 94640; 94660; 94760; 94761; 99285; J1630; J1642; J1650; J1938; J2270; J2405; J2919; J3475; J7614